=== PATIENT | female | born 2000 | race Hispanic/Latino ===

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

== ENCOUNTER 2019-04-15 20:22 | Emergency (ER) | payer SELFPAY ==
--- OUTSIDE RECORDS SUMMARY | 2019-04-15 20:24 | XMS REPORT | Continuity of Care Document ---
:2000 Author Organization [employer] Care Team Providers Name Role Phone [employer] Unavailable Unavailable Problems Problem Status Onset Classification Date Comments Source Date Reported Leukocytosis, Active Problem 09/07/2018 eCW: Sugar unspecified [place] [facility] Lower abdominal Active Diagnosis 08/30/2018 eCW: Sugar pain [facility] Encounter for Active Diagnosis 08/30/2018 eCW: Sugar screening [facility] Medications Medication Details Route Status Patient Ordering Order Source Instructions Provider Date Cipro 1 tab(s) orally Active 500 mg orally Vanderzyl eCW: Sugar every [address] [place] [address] Allergies, Adverse Reactions, Alerts Substance Category Reaction Severity Reaction Status Date Comments Source type Reported N.K.D.A. Adverse Info Not Adverse Active eCW: Reaction Available Reaction 8 [facility] Immunizations No Data Provided for This Section Results No Data Provided for This Section Pathology Reports No Data Provided for This Section Diagnostic Reports No Data Provided for This Section Consultation Notes No Data Provided for This Section Discharge Summaries No Data Provided for This Section History and Physicals No Data Provided for This Section Vital Signs Vital Sign Value Date Comments Source Height 65 07/22/2018 eCW: [facility] Weight 202 07/22/2018 eCW: [facility] Temperature Oral (F) 96.0 F 07/22/2018 eCW: [facility] Diastolic (mm Hg) 78 07/22/2018 eCW: [facility] Systolic (mm Hg) 122 07/22/2018 eCW: [facility] Encounters No Data Provided for This Section Procedures No Data Provided for This Section Assessment and Plan No Data Provided for This Section Plan of Care No Data Provided for This Section Social History No Data Provided for This Section Family History No Data Provided for This Section Advance Directives No Data Provided for This Section Functional Status No Data Provided for This Section
--- OUTSIDE RECORDS SUMMARY | 2019-04-15 20:24 | XMS REPORT ---
:2000 Author Organization [employer] Care Team Providers Name Role Phone Candy Cooley Provider Role Unavailable Allergies No Known Allergies Problems Problem Type Condition Code Onset Dates Condition Status Problem Leukocytosis, unspecified type D72.829 Active Medications Medication Code System Code Instructions Start Date End Date Status [facility] [id number] 500 mg orally Dec 20, Active 1 tab(s) every 12 hours 2018 Results No Known Results Summary Purpose [employer] Submission
--- OUTSIDE RECORDS SUMMARY | 2019-04-15 20:24 | XMS REPORT ---
[...] Abnormality Flag Q-CBC (INCLUDES DIFF/PLT) ----ABSOLUTE 8112 [id number] 5956-8055 cells/uL H NEUTROPHILS ----MPV 9.9 [id number] 7.5-12.5 fL N ----EOSINOPHILS 1.2 00897872 % N ----HEMOGLOBIN 11.6 00063953 11.7-15.5 g/dL L ----MONOCYTES 6.5 35418890 % N ----HEMATOCRIT 34.9 05337136 35.0-45.0 % L ----LYMPHOCYTES 29.5 20463642 % N ----MCV 83.5 95083488 80.0-100.0 fL N ----NEUTROPHILS 62.4 54705593 % N ----MCH 27.8 76775976 27.0-33.0 pg N ----ABSOLUTE 52 92845724 0-200 cells/uL N BASOPHILS ----MCHC 33.2 47182234 32.0-36.0 g/dL N ----BASOPHILS 0.4 04714801 % N ----ABSOLUTE 156 13199834 15-500 cells/uL N EOSINOPHILS ----RDW 11.9 33159532 11.0-15.0 % N ----WHITE BLOOD 13.0 37392329 3.8-10.8 Thousand/u H CELL COUNT L ----PLATELET COUNT 400 [id number] 140-400 Thousand/u N L ----ABSOLUTE 845 20451664 200-950 cells/uL N MONOCYTES ----RED BLOOD CELL 4.18 20180722 3.80-5.10 Million/uL N COUNT ----ABSOLUTE 3835 71017470 850-3900 cells/uL N LYMPHOCYTES Q-URINALYSIS, COMPLETE W/REFLEX TO CULTURE ----GLUCOSE NEGATIVE [id number] NEGATIVE N ----PH 7.5 35332254 5.0-8.0 N ----HYALINE CAST NONE SEEN [id number] NONE SEEN /LPF N ----KETONES NEGATIVE 94809970 NEGATIVE N ----SQUAMOUS 0-5 71605108 < OR=5 /HPF EPITHELIAL CELLS ----BILIRUBIN NEGATIVE 64040691 NEGATIVE N ----COLOR YELLOW 20180722 YELLOW N ----SPECIFIC 1.013 78428774 1.001-1.035 N GRAVITY ----APPEARANCE CLEAR 20180722 CLEAR N ----RBC NONE SEEN 50280503 < OR=2 /HPF N ----OCCULT BLOOD NEGATIVE 09044349 NEGATIVE N ----PROTEIN NEGATIVE 92213772 NEGATIVE N Adv Directive Depression Screen Q-CMP W/EGFR ----POTASSIUM 3.8 68317163 3.8-5.1 mmol/L N ----SODIUM 139 93230801 135-146 mmol/L N ----BUN/CREATININE NOT APPLICABLE 20180722 6-22 (calc) RATIO ----eGFR 143 20180722 > OR=60 mL/min/1.7 N STATELESS 2 ----eGFR NON-AFR. 123 20180722 > OR=60 mL/min/1.[address] ----CREATININE 0.71 20180722 0.50-1.00 mg/dL N ----UREA NITROGEN 11 20180722 7-20 mg/dL N (BUN) ----GLUCOSE 84 20180722 65-139 mg/dL N ----AST 15 20180722 12-32 U/L N ----GLOBULIN 3.2 [id number] 2.0-3.8 g/dL N (calc) ----ALT 19 [id number] [...]
--- OUTSIDE RECORDS SUMMARY | 2019-04-15 20:24 | XMS REPORT ---
:2000 Author Organization [employer] Care Team Providers Name Role Phone Joseph Sullivan Provider Role Unavailable Allergies No Known Allergies Problems Problem Type Condition Code Onset Dates Condition Status Problem Leukocytosis, unspecified type D72.829 Active Medications Medication Code System Code Instructions Start Date End Date Status Dosage Cipro [facility] [id number] 500 mg orally Dec 20, Active 1 tab(s) every 12 hours 2018 Results No Known Results Summary Purpose [employer] Submission
--- NOTE | 2019-04-15 21:12 | EDPHYS ---
Physician Documentation [facility] Name: Urvashi Molina Age: 19 yrs Sex: Female : 2000 Arrival Date: 04/15/2019 Time: 20:25 Bed 6 Private MD: ED Physician Igor Santamaria HPI: 04/15 21:09 This 19 yrs old Female presents to ER via Ambulatory with complaints of Sore gs Throat. 21:09 Onset: The symptoms/episode began/occurred 5 day(s) ago, and became worse and became gs persistent. Severity of symptoms: At their worst the symptoms were severe, in the emergency department the symptoms are unchanged. Modifying factors: the symptoms are aggravated by swallowing. Associated signs and symptoms: Pertinent negatives fever. The patient has experienced similar episodes in the past, a few times. 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 - Social history:: Smoking status: Patient/guardian denies using tobacco. - Ebola Screening: : Patient denies travel to an Ebola-affected area in the 21 days before illness onset. ROS: 21:09 All other systems are negative. gs Exam: 21:09 Head/Face: Normocephalic, atraumatic. Eyes: Pupils equal round and reactive to light, gs extra-ocular motions intact. Lids and lashes normal. Conjunctiva and sclera are non-icteric and not injected. Cornea within normal limits. Periorbital areas with no swelling, redness, or edema. Chest/axilla: Normal chest wall appearance and motion. Nontender with no deformity. No lesions are appreciated. Cardiovascular: Regular rate and rhythm with a normal S1 and S2. No gallops, murmurs, or rubs. Normal PMI, no JVD. No pulse deficits. Respiratory: Lungs have equal breath sounds bilaterally, clear to auscultation and percussion. No rales, rhonchi or wheezes noted. No increased work of breathing, no retractions or nasal flaring. Abdomen/GI: Soft, non-tender, with normal bowel sounds. No distension or tympany. No guarding or rebound. No evidence of tenderness throughout. Back: No spinal tenderness. No costovertebral tenderness. Full range of motion. Skin: Warm, dry with normal turgor. Normal color with no rashes, no lesions, and no evidence of cellulitis. MS/ Extremity: Pulses equal, no cyanosis. Neurovascular intact. Full, normal range of motion. Neuro: Awake and alert, GCS 15, oriented to person, place, time, and situation. Cranial nerves II-XII grossly intact. Motor strength 5/5 in all extremities. Sensory grossly intact. Cerebellar exam normal. Normal gait. 21:09 Constitutional: The patient appears alert, awake. 21:09 ENT: Posterior pharynx: Tonsils: bilaterally enlarged, with exudate, erythema, that is moderate. 21:09 Neck: Lymph nodes: lymphadenopathy is appreciated, anterior cervical nodes. Vital Signs: 20:36 BP 116 / 82; Pulse 88; Resp 16; Temp 97.8; Pulse Ox 100% on R/A; Weight 90.72 kg (R); aj1 Height 5 ft. 6 in. (167.64 cm) (R); 20:36 Body Mass Index 32.28 (90.72 kg, 167.64 cm) aj1 MDM: 21:05 Patient medically screened. 21:09 Differential diagnosis: group A strep tonsillitis, tonsillitis, upper respiratory gs infection, viral syndrome. Data reviewed: vital signs, nurses notes. 04/15 20:41 Order name: Strep; Complete Time: 21:06 04/15 21:04 Order name: Throat Culture EDMS Administered Medications: 21:14 CANCELLED (Duplicate Order): Cefdinir 300 mg PO once 21:18 Drug: predniSONE 40 mg Route: PO; tl1 21:19 Follow up: Response: No adverse reaction; No change in condition; Medication tl1 administered at discharge. 21:18 Drug: Zithromax 500 mg Route: PO; tl1 21:18 Follow up: Response: No adverse reaction; No change in condition; Medication tl1 administered at discharge. Disposition: 04/15/19 21:11 Discharged to Home. Impression: Acute tonsillitis, unspecified. - Condition is Stable. - Discharge Instructions: Tonsillitis. - Prescriptions for Prednisone 20 mg Oral Tablet - take 1 tablet by ORAL route once daily for 5 days; 5 tablet. Zithromax Z- Michael 250 mg Oral Tablet - take 1 tablet by ORAL route as directed for 5 days Day 1 - take two (2) tablets one time. Day 2, 3, 4 , 5 take one (1) tablet once daily.; 6 tablet. - Medication Reconciliation Form, Thank You Letter, Antibiotic Education, Prescription Opioid Use, Work release form form. - Follow up: Private Physician; When: 2 - 3 days; Reason: Re-evaluation by your physician. Signatures: Dispatcher [employer] EDKina Kuhn RN RN aj1 Quiana Castellanos RN RN tl1 Igor Santamaria MD MD gs Corrections: (The following items were deleted from the chart) 21:14 21:09 Cefdinir 300 mg PO once ordered. [facility] 21:20 21:11 04/15/2019 21:11 Discharged to Home. Impression: Acute tonsillitis, unspecified. tl1 Condition is Stable. Forms are Medication Reconciliation Form, Thank You Letter, Antibiotic Education, Prescription Opioid Use. Follow up: Private Physician; When: 2 - 3 days; Reason: Re-evaluation by your physician.
--- NOTE | 2019-04-15 21:12 | ER ---
Nurse's Notes [facility] Name: Urvashi Molina Age: 19 yrs Sex: Female : 2000 Arrival Date: 04/15/2019 Time: 20:25 Bed 6 Private MD: Diagnosis: Acute tonsillitis, unspecified Presentation: 04/15 20:33 Presenting complaint: Patient states: "For the past week I've had real bad throat pain. aj1 It started out dry and itching, then burning and then it got swollen and I can see them touching each other" Denies fever. Transition of care: patient was not received from another setting of care. Onset of symptoms was April 15, 2019. Risk Assessment: Do you want to hurt yourself or someone else? Patient reports no desire to harm self or others. Initial Sepsis Screen: Does the patient meet any 2 criteria? HR > 90 bpm. No. Patient's initial sepsis screen is negative. Does the patient have a suspected source of infection? No. Patient's initial sepsis screen is negative. Care prior to arrival: None. 20:33 Method Of Arrival: Ambulatory aj1 20:33 Acuity: DELVIS 4 aj1 Triage Assessment: 20:36 General: Appears in no apparent distress. comfortable, Behavior is calm, cooperative, aj1 appropriate for age. Pain: Complains of pain in left aspect of posterior pharynx and right aspect of posterior pharynx Pain currently is 8 out of 10 on a pain scale. EENT: Throat is reddened has enlarged tonsils bilaterally. Neuro: Level of Consciousness is awake, alert, obeys commands, Oriented to person, place, time, situation. Cardiovascular: Patient's skin is warm and dry. Respiratory: Airway is patent Respiratory effort is even, unlabored, Respiratory pattern is regular, symmetrical. 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 - Social history:: Smoking status: Patient/guardian denies using tobacco. - Ebola Screening: : Patient denies travel to an Ebola-affected area in the 21 days before illness onset. Screenin:51 Abuse screen: Denies threats or abuse. Abuse screen: Denies injuries from another. tl1 Nutritional screening: No deficits noted. Tuberculosis screening: No symptoms or risk factors identified. Fall Risk None identified. Assessment: 20:49 General: Appears in no apparent distress. Behavior is calm, cooperative, appropriate tl1 for age. Pain: Complains of pain in right aspect of posterior pharynx and left aspect of posterior pharynx. Neuro: Level of Consciousness is awake, alert, obeys commands, Oriented to person, place, time, situation. Cardiovascular: Denies chest pain. Respiratory: Airway is patent Trachea midline Respiratory effort is even, unlabored, Breath sounds are clear bilaterally. GI: No signs and/or symptoms were reported involving the gastrointestinal system. EENT: Throat is reddened Reports pain when swallowing. Derm: No deficits noted. 20:51 EENT: Throat has enlarged tonsils bilaterally. tl1 Vital Signs: 20:36 BP 116 / 82; Pulse 88; Resp 16; Temp 97.8; Pulse Ox 100% on R/A; Weight 90.72 kg (R); aj1 Height 5 ft. 6 in. (167.64 cm) (R); 20:36 Body Mass Index 32.28 (90.72 kg, 167.64 cm) aj1 ED Course: 20:25 Patient arrived in ED. mr 20:36 Triage completed. aj1 20:36 Arm band placed on Patient placed in an exam room. aj1 20:36 Patient has correct armband on for positive identification. Bed in low position. Call tl1 light in reach. Side rails up X 1. 20:39 Catrachita Edmond, ILNDSEY is Primary Nurse. ak1 20:41 Igor Santamaria MD is Attending Physician. gs 20:51 No provider procedures requiring assistance completed. Strep swab sent to lab. Patient tl1 did not have IV access during this emergency room visit. Administered Medications: 21:14 CANCELLED (Duplicate Order): Cefdinir 300 mg PO once gs 21:18 Drug: predniSONE 40 mg Route: PO; tl1 21:19 Follow up: Response: No adverse reaction; No change in condition; Medication tl1 administered at discharge. 21:18 Drug: Zithromax 500 mg Route: PO; tl1 21:18 Follow up: Response: No adverse reaction; No change in condition; Medication tl1 administered at discharge. Outcome: 21:11 Discharge ordered by . babita 21:19 Discharged to home ambulatory, with family. tl1 21:19 Condition: good 21:19 Discharge instructions given to patient, family, Instructed on discharge instructions, follow up and referral plans. medication usage, Demonstrated understanding of instructions, follow-up care, medications, Prescriptions given X 3. 21:20 Patient left the ED. tl1 Signatures: Kina De RN RN aj1 Li Hahn Quiana Castellanos RN RN tl1 Catrachita Edmond RN RN ak1 Igor Santamaria MD MD gs Corrections: (The following items were deleted from the chart) 20:51 20:49 Pain: Complains of pain in right aspect of posterior pharynx and left aspect of tl1 posterior pharynx tl1
[2019-04-15] MEDS ORDERED: predniSONE 20 MG TAB ONE (21:14)
[2019-04-15] MEDS ORDERED: AZITHROMYCIN 250 MG TAB ONE (21:15)
[2019-04-16 04:09] VITALS: BP 116/82; TEMP 97.8; O2SAT 100
== END 2019-04-15 21:20 | disposition home or self-care (01) ==
LOC: ER 20:22
DX: J03.90 Acute tonsillitis, unspecified (principal)
CPT/HCPCS: 87070; 87081; 99283; J7512

== ENCOUNTER 2019-05-08 15:24 | Emergency (ER) | payer SELFPAY ==
--- NOTE | 2019-05-08 17:36 | ER ---
Nurse's Notes [facility] Name: Urvashi Molina Age: 19 yrs Sex: Female : 2000 Arrival Date: 05/08/2019 Time: 15:27 Bed 14 Private MD: Diagnosis: Anxiety disorder, unspecified Presentation: 05/08 15:40 Presenting complaint: Patient states: All week I have been feeling like my heart has la1 been racing and I feel like I cant catch my breath. Transition of care: patient was not received from another setting of care. Onset of symptoms was May 08, 2019. Risk Assessment: Do you want to hurt yourself or someone else? Patient reports no desire to harm self or others. Initial Sepsis Screen: Does the patient meet any 2 criteria? No. Patient's initial sepsis screen is negative. Does the patient have a suspected source of infection? No. Patient's initial sepsis screen is negative. Care prior to arrival: None. 15:40 Method Of Arrival: Ambulatory la1 15:40 Acuity: DELVIS 3 la1 Triage Assessment: 16:20 General: Appears in no apparent distress. comfortable, Behavior is cooperative, bp appropriate for age, anxious. Pain: Denies pain. EENT: No deficits noted. Neuro: No deficits noted. Cardiovascular: Rhythm is sinus rhythm. Respiratory: No deficits noted. GI: No signs and/or symptoms were reported involving the gastrointestinal system. : No signs and/or symptoms were reported regarding the genitourinary system. Derm: No deficits noted. Musculoskeletal: No deficits noted. 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 - Social history:: Smoking status: Patient/guardian denies using tobacco, Patient/guardian denies using alcohol, street drugs, The patient lives with family. - Ebola Screening: : No symptoms or risks identified at this time. - Family history:: not pertinent. Screenin:24 Abuse screen: Denies threats or abuse. Denies injuries from another. Nutritional bp screening: No deficits noted. Tuberculosis screening: No symptoms or risk factors identified. Fall Risk None identified. Assessment: 16:20 General: SEE TRIAGE NOTE. bp 17:15 Reassessment: PT D/C HOME AMBULATORY WITH FAMILY, DX WITH GENERALIZED ANXIETY. bp Vital Signs: 15:41 BP 102 / 64; Pulse 80; Resp 16; Temp 98.7; Pulse Ox 100% on R/A; Weight 90.72 kg; la1 Height 5 ft. 6 in. (167.64 cm); 15:41 Body Mass Index 32.28 (90.72 kg, 167.64 cm) la1 ED Course: 15:27 Patient arrived in ED. am2 15:41 Triage completed. la1 15:42 Arm band placed on right wrist. la1 16:23 Jez Ac, RN is Primary Nurse. bp 16:24 Patient has correct armband on for positive identification. Bed in low position. Call bp light in reach. Side rails up X2. Pulse ox on. NIBP on. 16:27 Silvia Ramos MD is Attending Physician. ma2 16:45 EKG done, by instructional media services technician. reviewed by Silvia Ramos MD. sm3 17:41 No provider procedures requiring assistance completed. Patient did not have IV access bp during this emergency room visit. Patient maintains SpO2 saturation greater than 95% on room air. Administered Medications: No medications were administered Outcome: 16:57 Discharge ordered by . wa2 17:41 Discharged to home ambulatory, with family. bp 17:41 Condition: stable 17:41 Discharge instructions given to patient, Instructed on discharge instructions, follow up and referral plans. medication usage, Demonstrated understanding of instructions, follow-up care, medications, Prescriptions given X 1. 17:42 Patient left the ED. bp Signatures: Camacho Mcpherson, RN RN la1 Kiersten Marie am2 Jez Ac, RN RN bp Silvia Ramos MD MD wa2 Prachi Valencia 3
--- NOTE | 2019-05-08 17:36 | EDPHYS ---
Physician Documentation [facility] Name: Urvashi Molina Age: 19 yrs Sex: Female : 2000 Arrival Date: 05/08/2019 Time: 15:27 Bed 14 Private MD: ED Physician Silvia Ramos HPI: 05/08 16:56 This 19 yrs old Female presents to ER via Ambulatory with complaints of ma2 Anxiety, Chest Tightness. 16:56 The patient or guardian reports chest pain that is located primarily in the anterior ma2 chest wall. Associated signs and symptoms: Pertinent negatives: abdominal pain, headache, lower extremity swelling, nausea. Duration: The patient or guardian reports multiple episodes. Severity of pain: At its worst the pain was very mild in the emergency department the pain has resolved. The patient has experienced similar episodes in the past. 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 - Social history:: Smoking status: Patient/guardian denies using tobacco, Patient/guardian denies using alcohol, street drugs, The patient lives with family. - Ebola Screening: : No symptoms or risks identified at this time. - Family history:: not pertinent. ROS: 16:56 Constitutional: Negative for fever, chills, and weight loss, Cardiovascular: Negative ma2 for chest pain, palpitations, and edema, Respiratory: Negative for shortness of breath, cough, wheezing, and pleuritic chest pain. 16:56 All other systems are negative. Exam: 16:56 Constitutional: This is a well developed, well nourished patient who is awake, alert, ma2 and in no acute distress. Head/Face: Normocephalic, atraumatic. Eyes: Pupils equal round and reactive to light, extra-ocular motions intact. Lids and lashes normal. Conjunctiva and sclera are non-icteric and not injected. Cornea within normal limits. Periorbital areas with no swelling, redness, or edema. ENT: Nares patent. No nasal discharge, no septal abnormalities noted. Tympanic membranes are normal and external auditory canals are clear. Oropharynx with no redness, swelling, or masses, exudates, or evidence of obstruction, uvula midline. Mucous membranes moist. Neck: Trachea midline, no thyromegaly or masses palpated, and no cervical lymphadenopathy. Supple, full range of motion without nuchal rigidity, or vertebral point tenderness. No Meningismus. Chest/axilla: Normal chest wall appearance and motion. Nontender with no deformity. No lesions are appreciated. Cardiovascular: Regular rate and rhythm with a normal S1 and S2. No gallops, murmurs, or rubs. Normal PMI, no JVD. No pulse deficits. Respiratory: Lungs have equal breath sounds bilaterally, clear to auscultation and percussion. No rales, rhonchi or wheezes noted. No increased work of breathing, no retractions or nasal flaring. Abdomen/GI: Soft, non-tender, with normal bowel sounds. No distension or tympany. No guarding or rebound. No evidence of tenderness throughout. MS/ Extremity: Pulses equal, no cyanosis. Neurovascular intact. Full, normal range of motion. Neuro: Awake and alert, GCS 15, oriented to person, place, time, and situation. Cranial nerves II-XII grossly intact. Motor strength 5/5 in all extremities. Sensory grossly intact. Cerebellar exam normal. Normal gait. Vital Signs: 15:41 BP 102 / 64; Pulse 80; Resp 16; Temp 98.7; Pulse Ox 100% on R/A; Weight 90.72 kg; la1 Height 5 ft. 6 in. (167.64 cm); 15:41 Body Mass Index 32.28 (90.72 kg, 167.64 cm) la1 MDM: 16:27 Patient medically screened. ma2 16:56 Differential diagnosis: anxiety, chest wall pain, gastroesophageal reflux disease ma2 (GERD). Data reviewed: vital signs, nurses notes. Counseling: I had a detailed discussion with the patient and/or guardian regarding: the historical points, exam findings, and any diagnostic results supporting the discharge/admit diagnosis, the presence of at least one elevated blood pressure reading (>120/80) during this emergency department visit, the need for outpatient follow up. 05/08 16:34 Order name: EKG; Complete Time: 17:31 bp 05/08 16:28 Order name: EKG - Nurse/Tech; Complete Time: 16:34 ma2 Administered Medications: No medications were administered Disposition: 05/08/19 16:57 Discharged to Home. Impression: Anxiety disorder, unspecified. - Condition is Stable. - Discharge Instructions: Generalized Anxiety Disorder. - Prescriptions for Ativan 0.5 mg Oral Tablet - take 1 tablet by ORAL route every 8 hours As needed; 20 tablet. - Work release form, Medication Reconciliation Form, Thank You Letter, Antibiotic Education, Prescription Opioid Use form. - Follow up: Private Physician; When: Tomorrow; Reason: Continuance of care. Signatures: Camacho Mcpherson RN RN la1 Jez Ac RN RN bp Silvia Ramos MD MD ma2 Corrections: (The following items were deleted from the chart) 17:42 16:57 05/08/2019 16:57 Discharged to Home. Impression: Anxiety disorder, unspecified. bp Condition is Stable. Forms are Medication Reconciliation Form, Thank You Letter, Antibiotic Education, Prescription Opioid Use. Follow up: Private Physician; When: Tomorrow; Reason: Continuance of care. ma2
[2019-05-08 20:06] VITALS: BP 102/64; TEMP 98.7; O2SAT 100
--- NOTE | 2019-05-09 07:26 | EKG ---
Test Date: 2019-05-08 Test Time: 16:35:20 Appeals Reviewer Veteran: JANE MEASUREMENT RESULTS: Intervals: Rate: 69 CT: 162 QRSD: 96 QT: 406 QTc: 435 [place]: P: 49 CT: 162 QRS: 50 T: 33 INTERPRETIVE STATEMENTS: Sinus rhythm with marked sinus arrhythmia normal ECG Compared to ECG 12/14/2018 16:27:55 Sinus tachycardia no longer present T-wave abnormality no longer present Electronically Signed On 05-09-19 07:25:27 CDT by Sawyer Franklin
== END 2019-05-08 17:42 | disposition home or self-care (01) ==
LOC: ER 15:24
DX: F41.9 Anxiety disorder, unspecified (principal)
CPT/HCPCS: 93005; 99284

== ENCOUNTER 2019-06-14 10:38 | Emergency (ER) | payer OTHER, SELFPAY ==
[2019-06-14 11:28] LABS: Absolute Lymphocytes (CBC) 3.5 K/uL (0.7-4.9); Basophils % 0.6 % (0-1.3); Hematocrit 33.5 % (36.0-45.0); MPV 7.8 fL (7.6-11.3); RBC Red Blood Cell Count 3.94 M/uL (3.86-4.86)
[2019-06-14 12:11] LABS: BUN Blood Urea Nitrogen 8 mg/dL (7-18); Bicarbonate 24 mmol/L (21-32); Glucose Level 81 mg/dL (74-106); HCG, Quantitative 18134 mIU/mL (1-3); Potassium 3.4 mmol/L (3.5-5.1); Sodium Level 136 mmol/L (136-145)
--- NOTE | 2019-06-14 14:07 | EDPHYS ---
Physician Documentation [facility] Name: Urvashi Molina Age: 19 yrs Sex: Female : 2000 Arrival Date: 06/14/2019 Time: 10:46 Bed 18 Private MD: ED Physician Andre Shankar HPI: 06/14 11:07 This 19 yrs old Female presents to ER via Ambulatory with complaints of kb Abdominal Pain, . 11:07 The patient presents to the emergency department with abdominal pain, of the right kb lower quadrant and left lower quadrant. course: care: at a clinic, Leakage of Fluid: none appreciated, Ultrasound: the patient has not had an ultrasound, Risk/complications: no obvious risks or complications are appreciated. Previous pregnancies: the patient has never been . Associated signs and symptoms: Pertinent positives: abdominal pain. The patient has not experienced similar symptoms in the past. The patient has not recently seen a physician. Pt reports she is and having some cramping to lower abd. States "I don't know if it is normal or not. I normally have 50 days between my periods so my OB is not sure how far along I am until I have my ultrasound in July." Pt gets care at [facility] clinic, unsure of Dr's name. 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 - Social history:: Smoking status: Patient/guardian denies using tobacco. - Ebola Screening: : No symptoms or risks identified at this time. ROS: 11:13 Constitutional: Negative for fever, chills, and weight loss, ENT: Negative for injury, kb pain, and discharge, Neck: Negative for injury, pain, and swelling, Cardiovascular: Negative for chest pain, palpitations, and edema, Respiratory: Negative for shortness of breath, cough, wheezing, and pleuritic chest pain, Back: Negative for injury and pain, : Negative for injury, bleeding, discharge, and swelling, MS/Extremity: Negative for injury and deformity, Skin: Negative for injury, rash, and discoloration, Neuro: Negative for headache, weakness, numbness, tingling, and seizure. 11:13 Abdomen/GI: Positive for abdominal pain, Negative for nausea, vomiting, and diarrhea. Exam: 11:13 Constitutional: This is a well developed, well nourished patient who is awake, alert, kb and in no acute distress. Head/Face: Normocephalic, atraumatic. ENT: Nares patent. No nasal discharge, no septal abnormalities noted. Tympanic membranes are normal and external auditory canals are clear. Oropharynx with no redness, swelling, or masses, exudates, or evidence of obstruction, uvula midline. Mucous membranes moist. Neck: Trachea midline, no thyromegaly or masses palpated, and no cervical lymphadenopathy. Supple, full range of motion without nuchal rigidity, or vertebral point tenderness. No Meningismus. Chest/axilla: Normal chest wall appearance and motion. Nontender with no deformity. No lesions are appreciated. Cardiovascular: Regular rate and rhythm with a normal S1 and S2. No gallops, murmurs, or rubs. Normal PMI, no JVD. No pulse deficits. Respiratory: Lungs have equal breath sounds bilaterally, clear to auscultation and percussion. No rales, rhonchi or wheezes noted. No increased work of breathing, no retractions or nasal flaring. Abdomen/GI: Soft, non-tender, with normal bowel sounds. No distension or tympany. No guarding or rebound. No evidence of tenderness throughout. Back: No spinal tenderness. No costovertebral tenderness. Full range of motion. Skin: Warm, dry with normal turgor. Normal color with no rashes, no lesions, and no evidence of cellulitis. MS/ Extremity: Pulses equal, no cyanosis. Neurovascular intact. Full, normal range of motion. Neuro: Awake and alert, GCS 15, oriented to person, place, time, and situation. Cranial nerves II-XII grossly intact. Motor strength 5/5 in all extremities. Sensory grossly intact. Cerebellar exam normal. Normal gait. Vital Signs: 10:48 BP 122 / 69; Pulse 90; Resp 16 S; Temp 97.1(TE); Pulse Ox 100% on R/A; Weight 91.63 kg aa5 (R); Height 5 ft. 7 in. (170.18 cm) (R); Pain 7/10; 13:32 BP 109 / 66; Pulse 97; Resp 18; Pulse Ox 100% on R/A; aj1 14:46 BP 129 / 89; Pulse 82; Resp 18; Pulse Ox 99% on R/A; aj1 10:48 Body Mass Index 31.64 (91.63 kg, 170.18 cm) aa5 MDM: 10:57 Patient medically screened. kb 11:06 Data reviewed: vital signs, nurses notes. Data interpreted: Pulse oximetry: on room air kb is 100 %. Interpretation: normal. 14:06 Counseling: I had a detailed discussion with the patient and/or guardian regarding: the kb historical points, exam findings, and any diagnostic results supporting the discharge/admit diagnosis, lab results, radiology results, the need for outpatient follow up, an OB/Gyne specialist, to return to the emergency department if symptoms worsen or persist or if there are any questions or concerns that arise at home. 06/14 11:04 Order name: Quantitative Hcg; Complete Time: 12:17 kb 06/14 11:04 Order name: Abo/rh Typing; Complete Time: 12:31 kb 06/14 11:04 Order name: Basic Metabolic Panel; Complete Time: 12:17 kb 06/14 11:04 Order name: CBC with Diff; Complete Time: 11:53 kb 06/14 11:15 Order name: Urine Dipstick--Ancillary (enter results) bd 06/14 11:15 Order name: Urine --Ancillary (enter results) bd 06/14 10:54 Order name: Urine Dipstick-Ancillary (obtain specimen); Complete Time: 11:04 kb 06/14 10:54 Order name: Urine Test (obtain specimen); Complete Time: 11:05 kb 06/14 11:04 Order name: IV Saline Lock; Complete Time: 11:20 kb 06/14 11:04 Order name: Labs collected and sent; Complete Time: 11:20 kb 06/14 11:04 Order name: NPO; Complete Time: 11:20 kb 06/14 11:05 Order name: US Transvaginal Ob kb Administered Medications: No medications were administered Disposition: 14:58 Co-signature as Attending Physician, Andre Shankar MD I agree with the assessment and kdr plan of care. Disposition: 06/14/19 14:06 Discharged to Home. Impression: Less than 8 weeks gestation of . - Condition is Stable. - Discharge Instructions: First Trimester of , Kbpo-[id number]. - Medication Reconciliation Form, Thank You Letter, Antibiotic Education, Prescription Opioid Use form. - Follow up: Emergency Department; When: As needed; Reason: Worsening of condition. Follow up: Private Physician; When: 2 - 3 days; Reason: Recheck today's complaints, Continuance of care, Re-evaluation by your physician. Signatures: Dispatcher [employer] EDMS Ines Jaimes, BUSINESS ANALYTICS FACULTY MEMBER-C BUSINESS ANALYTICS FACULTY MEMBER-Nishantb Kina De RN RN aj1 Andre Shankar MD MD [facility] Jaqueline Joseph RN RN aa5 Corrections: (The following items were deleted from the chart) 14:47 14:06 06/14/2019 14:06 Discharged to Home. Impression: Less than 8 weeks gestation of aj1 . Condition is Stable. Forms are Medication Reconciliation Form, Thank You Letter, Antibiotic Education, Prescription Opioid Use. Follow up: Emergency Department; When: As needed; Reason: Worsening of condition. Follow up: Private Physician; When: 2 - 3 days; Reason: Recheck today's complaints, Continuance of care, Re-evaluation by your physician. kb
--- NOTE | 2019-06-14 14:07 | ER ---
Nurse's Notes [facility] Name: Urvashi Molina Age: 19 yrs Sex: Female : 2000 Arrival Date: 06/14/2019 Time: 10:46 Bed 18 Private MD: Diagnosis: Less than 8 weeks gestation of Presentation: 06/14 10:47 Presenting complaint: Patient states: lower abd cramping that began 1 week ago and got aa5 worse over the last few days. pt denies vaginal bleeding. Pt reports positive test on 06/01/19. Transition of care: patient was not received from another setting of care. Onset of symptoms was 2018. Risk Assessment: Do you want to hurt yourself or someone else? Patient reports no desire to harm self or others. Initial Sepsis Screen: Does the patient meet any 2 criteria? No. Patient's initial sepsis screen is negative. Does the patient have a suspected source of infection? No. Patient's initial sepsis screen is negative. Care prior to arrival: None. 10:47 Acuity: DELVIS 3 aa5 10:47 Method Of Arrival: Ambulatory aa5 LOT ASSOCIATE: 10:48 LMP 04/19/2019 aa5 11:07 1, 0, Living 0, LMP 04/19/2019 kb Historical: - Allergies: 10:48 NKA; aa5 - Home Meds: 10:48 None [Active]; aa5 - PMHx: 10:48 Anxiety; aa5 - PSHx: 10:48 None; aa5 - Immunization history:: Adult Immunizations up to date. - Social history:: Smoking status: Patient/guardian denies using tobacco. - Ebola Screening: : No symptoms or risks identified at this time. Screenin:05 Abuse screen: Denies threats or abuse. Denies injuries from another. Nutritional aj1 screening: No deficits noted. Tuberculosis screening: No symptoms or risk factors identified. 14:47 Fall Risk None identified. aj1 Assessment: 11:05 General: Appears in no apparent distress. comfortable, Behavior is calm, cooperative, aj1 appropriate for age. Pain: Complains of pain in right lower quadrant and left lower quadrant Quality of pain is described as crampy. Neuro: Level of Consciousness is awake, alert, obeys commands, Oriented to person, place, time, situation. Cardiovascular: Patient's skin is warm and dry. Respiratory: Airway is patent Respiratory effort is even, unlabored, Respiratory pattern is regular, symmetrical. GI: Abdomen is non-distended, Bowel sounds present X 4 quads. Abd is soft and non tender X 4 quads. Reports cramping. : Denies vaginal bleeding. EENT: No signs and/or symptoms were reported regarding the EENT system. Derm: No signs and/or symptoms reported regarding the dermatologic system. Skin is pink, warm \T\ dry. normal. Musculoskeletal: No signs and/or symptoms reported regarding the musculoskeletal system. Circulation, motion, and sensation intact. 12:05 Reassessment: Patient appears in no apparent distress at this time. No changes from 1 previously documented assessment. Patient and/or family updated on plan of care and expected duration. Pain level reassessed. Patient is alert, oriented x 3, equal unlabored respirations, skin warm/dry/pink. 13:18 Reassessment: Patient appears in no apparent distress at this time. No changes from aj1 previously documented assessment. Patient and/or family updated on plan of care and expected duration. Pain level reassessed. Patient is alert, oriented x 3, equal unlabored respirations, skin warm/dry/pink. 14:15 Reassessment: Patient appears in no apparent distress at this time. No changes from aj1 previously documented assessment. Patient and/or family updated on plan of care and expected duration. Pain level reassessed. Patient is alert, oriented x 3, equal unlabored respirations, skin warm/dry/pink. Vital Signs: 10:48 BP 122 / 69; Pulse 90; Resp 16 S; Temp 97.1(TE); Pulse Ox 100% on R/A; Weight 91.63 kg aa5 (R); Height 5 ft. 7 in. (170.18 cm) (R); Pain 7/10; 13:32 BP 109 / 66; Pulse 97; Resp 18; Pulse Ox 100% on R/A; aj1 14:46 BP 129 / 89; Pulse 82; Resp 18; Pulse Ox 99% on R/A; aj1 10:48 Body Mass Index 31.64 (91.63 kg, 170.18 cm) aa5 ED Course: 10:46 Patient arrived in ED. aa5 10:46 Arm band placed on. aa5 10:47 Triage completed. aa5 10:52 Ines Jaimes FNP-C is [facility]. kb 10:52 Andre Shankar MD is Attending Physician. kb 10:57 Kina De, RN is Primary Nurse. aj1 11:05 Patient has correct armband on for positive identification. Bed in low position. Call aj1 light in reach. Side rails up X 1. 11:05 No provider procedures requiring assistance completed. aj1 11:21 Initial lab(s) drawn, by me, sent to lab. Inserted saline lock: 20 gauge in right aj1 antecubital area, using aseptic technique. Blood collected. 11:30 US Transvaginal Ob In Process Unspecified. EDMS 14:47 IV discontinued, intact, bleeding controlled, No redness/swelling at site. Pressure aj1 dressing applied. Administered Medications: No medications were administered Outcome: 14:06 Discharge ordered by MD. kb 14:47 Discharged to home ambulatory. aj1 14:47 Condition: good 14:47 Discharge instructions given to patient, Instructed on discharge instructions, follow up and referral plans. Demonstrated understanding of instructions, follow-up care. 14:47 Patient left the ED. aj1 Signatures: Dispatcher [employer] EDMS Ines Jaimes FNP-C FNP-Kina Russell, RN RN aj1 Jaqueline Joseph, RN RN aa5
[2019-06-14 14:55] VITALS: TEMP 97.1
[2019-06-14 14:58] VITALS: BP 129/89; O2SAT 99
[2019-06-14 18:01] LABS: Urine Blood NEGATIVE (NEG); Urine Glucose NEGATIVE (NEG); Urine Protein NEGATIVE (NEG); Urine Specific Gravity 1.025 (1.005-1.030); Urine pH 5.5 (5.0-7.0)
--- NOTE | 2019-06-19 15:21 | RAD REPORT ---
EXAM DESCRIPTION: US - Transvaginal OB - 06/14/2019 12:18 pm CLINICAL HISTORY: ABD CRAMPING, COMPARISON: None available TECHNIQUE: Endovaginal sonography performed. FINDINGS: A 5 week 2 day sized gestational sac is present. Shape is normal. Gestational sac and yolk sac were seen. No pole confirmed. Therefore no heartbeat could be demonstrated. Within the [place] no hematoma or mass. No myometrial abnormality. A 4.8 centimeter right ovarian cyst is identified . No blood or fluid in the cul de sac. No left ovarian abnormality. Normal blood flow in the ovarian st danitza. IMPRESSION: Single 5 week 2 day sized gestational sac without pole identifiable. Findings may simply reflect a very early gestation. Follow-up sonography can be performed if serial b eta HCG values indicate ongoing . A 4.8 centimeter right ovarian cyst is identified. Due to technical difficulties, the images and reporting system are only now available. Preliminary fi ndings were provided at the time of the study.
== END 2019-06-14 14:47 | disposition home or self-care (01) ==
LOC: ER 10:38
DX: O26.891 Other specified pregnancy related conditions, first trimester (principal); Z3A.01 Less than 8 weeks gestation of pregnancy
CPT/HCPCS: 36415; 76817; 80048; 81003; 81025; 84702; 85025; 86900; 86901; 99283

== ENCOUNTER 2020-02-12 21:52 | Emergency (ER) | payer OTHER ==
--- OUTSIDE RECORDS SUMMARY | 2020-02-12 21:54 | XMS REPORT | Continuity of Care Document ---
:2000 Author Organization [facility] t Address [address] [place] [address] Care Team Providers Name Role Phone Yancy Hoff MD Attending Clinician [place] WHCNP, C Attending Clinician Doctor Unassigned, Name Attending Clinician Unavailable Provider, Temp Attending Clinician Unavailable Ezra PORTILLO, D Attending Clinician Unavailable Willian PORTILLO, S Attending Clinician Unavailable Dominick PORTILLO Attending Clinician Unavailable Pedro Medina DO Attending Clinician Carlos Vang MD Attending Clinician Yancy Hoff MD Admitting Clinician Carlos Vang MD Admitting Clinician Problems Condition Condition Condition Status Onset Resolution Last Treating Co mments Source Name Details Category Date Date Treatment Clinician Date Leukocytos Problem Active 2018-09-07 M emoria is, 05:10:56 l unspecifie Chente n d type Leukocytos is, unspecifie d type Active Problem 09/07/2018 eCW: [facility] Lower Diagnosis Active 2018-08-30 Mem oria abdominal 05:15:14 l pain Lower Arnel abdominal pain Active Diagnosis 08/30/2018 eCW: [facility] Encounter Diagnosis Active 2018-08-30 Memoria for 05:15:14 l screening Arnel Encounter for screening Active Diagnosis 08/30/2018 eCW: [facility] Allergies, Adverse Reactions, Alerts Allergy Allergy Status Severity Reaction(s) Onset Inactive Treating Comm ents Source Name Type Date Date Clinician Kylah Montero Active Info Not 2017-08 Justyn reji Available 2-14 l 00:00: [place] 00 Medications Ordered Filled Start Stop Current Ordering Indication Dosage Frequency Signature Comments Components Source Medication Medication Date Date Medication? Clinician (SIG) Name Name Cipro 2017-08 Yes Janette 1 tab(s) Memoria 2-20 [place] l 00:00: [place] 00 Vital Signs Vital Name Observation Time Observation Value Comments Source Height 2018-07-22 19:45:00 [facility] [place] Weight 2018-07-22 19:45:00 [facility] [place] Temperature Oral (F) 2018-07-22 19:45:00 96.0 F [facility] [place] Diastolic (mm Hg) 2018-07-22 19:45:00 Mem orial [place] Systolic (mm Hg) 2018-07-22 19:45:00 Justyn rial [place] Procedures This patient has no known procedures. Encounters Start End Encounter Admission Attending Care Care Encounter Source Date/Time Date/Time Type Type Clinicians Facility Department ID 2020-01-19 2020-01-22 [facility] JANETTE Hoff [id number] 19:18:00 17:30:00 Encounter Rebecca GILL [id number] [place] [id number] 2020-01-19 2020-01-19 Routine [place] [id number] 15:53:23 16:37:17 Lizzie C APPIAN DEVELOPER [id number] Visit [facility] [id number] MATERNAL [id number] & CHILD [address] [place] [address] 2020-01-19 2020-01-19 Orders Doctor JANETTE [id number] 00:00:00 00:00:00 Only Unassigned, [place] [id number] [place] [id number] 2020-01-11 2020-01-11 Routine Provider, [facility] [id number] 14:50:53 15:22:24 Ang-Rmchp APPIAN DEVELOPER [id number] Visit Temp [facility] [id number] MATERNAL [id number] & CHILD [address] [facility] 2020-01-05 2020-01-05 Routine Akins[place], [facility] [id number] 14:12:11 14:27:11 Lizzie C APPIAN DEVELOPER [id number] Visit REGIONAL [id number] MATERNAL [id number] & CHILD 107 [facility] 2020-01-01 2020-01-01 Nurse JANETTE Munguia [id number] 00:00:00 00:00:00 Triage Karyn Watson [place] [id number] [facility] [id number] [id number] 2020-01-01 2020-01-01 JANETTE Stevens 1.2.840.114 [id number] 00:00:00 00:00:00 Triage Kaylene Padilla [place] [id number] [facility] [id number] [id number] 2019-12-29 2019-12-29 [facility] 1.2.840.114 [id number] 00:00:00 00:00:00 Lizzie C APPIAN DEVELOPER [id number] [facility] [id number] MATERNAL [id number] & CHILD 107 [facility] 2019-12-28 2019-12-28 Nurse JANETTE Tan [id number] 00:00:00 00:00:00 Triage Toshia [place] [id number] [facility] [id number] [id number] 2019-12-20 2019-12-20 [facility] 1.2.840.114 [id number] 11:43:03 14:19:06 ne Visit Lizzie C APPIAN DEVELOPER [id number] [facility] [id number] MATERNAL [id number] & CHILD 107 [facility] 2019-12-14 2019-12-14 Emergency AdamAmy Pedro [facility] 1.2.8 [id number] 18:31:58 23:45:00 Swati Vang [place] 350.1.13.10 [place] 4.2.7.2.686 [place] [id number] 2019-12-04 2019-12-04 [facility]ici [facility] 1.2.840.114 [id number] 12:49:08 14:24:22 ne Visit Lizzie C APPIAN DEVELOPER [id number] [facility] [id number] MATERNAL [id number] & CHILD 107 [facility] 2019-11-24 2019-11-24 [facility] 1.2.840.114 [id number] 00:00:00 00:00:00 Lizzie C APPIAN DEVELOPER [id number] [facility] [id number] MATERNAL [id number] & CHILD 107 [facility] 2019-11-21 2019-11-21 Routine [facility] [id number] 13:34:25 14:28:43 Lizzie C APPIAN DEVELOPER [id number] Visit [facility] [id number] MATERNAL [id number] & CHILD 107 [facility] 2019-11-21 2019-11-21 Orders Doctor JANETTE [id number] [id number] 00:00:00 00:00:00 Only Unassigned, [place] [id number] [place] [facility] 4.2.7.2.686 [id number] 2019-11-08 2019-11-08 Telephone [facility] 1.2.840.114 [id number] 00:00:00 00:00:00 Lizzie C APPIAN DEVELOPER [id number] [facility] [id number] MATERNAL [id number] & CHILD 107 [facility] 2018-09-05 2018-09-05 Outpatient [facility] [place] [id number] [facility] 17:00[facility]00 [facility]-09[facility]01 2018-09-01 [facility] [place] [id number] [facility]inic 15:26:00 [facility]:26:[facility] 2018-07-28 2018-07-28 [facility] [place] [id number] [facility]Clinic 11:34:00 [facility] 2018-07-26 2018-07-26 Outpatient [facility] [place] [id number] eClinic 08:33:00 08:33:00 [facility] 2018-07-25 2018-07-25 [facility]patient [facility] [place] [id number] eClinic 12:56:00 12:56:00 [facility] 2018-07-22 2018-07-22 Outpatient [facility] [place] [id number] eClinic 13:45:00 13:45:00 [facility] Practice Practice Results This patient has no known results.
--- OUTSIDE RECORDS SUMMARY | 2020-02-12 21:54 | XMS REPORT | Summary of Care ---
:1999 Author Organization [facility] Address [address] [place] [id number] Care Team Providers Name Role Phone Lizzie Richards TAZ Primary Care Provider Reason for Visit Reason Comments Care Encounter Details Date Type Department Care Team Description 11/21/2019 Routine [facility]- Susie, Super vision of high risk , antepartum (Primary Dx); Visit THUAN Saldaña Susceptible to varicella (non-immune), c urrently ; [address] Obesity affecting in second trimester; [facility] Anemia of mother in , antepartu [id number] [facility] [phone] [place] [address] Allergies No Known Allergiesdocumented as of this encounter (statuses as of 11/21/2019) Medications Medication Sig Dispensed Refills Start Date End Date Status vit/iron Take by mouth. 0 Active fum/folic ac ( 1 + 1 ORAL) multivitamin Take 1 tablet by 90 tablet 3 06/05/2019 Active ( VITAMIN) mouth daily. tabletIndications: Supervision of high risk , antepartum proMETHazine 25 mg Take 1 tablet by 30 tablet 0 06/12/2019 Active tabletIndications: mouth every 6 Nausea/vomiting in (six) hours as needed for Nausea and Vomiting (N/V). ferrous sulfate 325 mg Take 1 tablet by 60 tablet 3 11/08/2019 Active (65 mg iron) mouth 2 (two) tabletIndications: times daily. Anemia of mother in , antepartum ascorbic acid, vitamin Take 1 tablet by 90 tablet 2 11/08/2019 Active C, 500 mg mouth 3 (three) tabletIndications: times daily. Anemia of mother in , antepartum documented as of this encounter (statuses as of 11/21/2019) Active Problems Problem Noted Date Anemia of mother in , antepartum 11/08/2019 Leukorrhea 10/09/2019 Obesity (BMI 30-39.9) 09/09/2019 Diarrhea during 08/14/2019 Susceptible to varicella (non-immune), currently pregn ant 06/06/2019 Overview: Address pp Supervision of high-risk 06/05/2019 Obesity affecting 06/05/2019 Tachycardia, unspecified 06/05/2019 Overview: Per patient report Estimated Date of Delivery Comments Yes 02/09/2020 Based on Ultrasound, outside usg at [facility] documented as of this encounter (statuses as of 11/21/2019) Immunizations Name Administration Dates Next Due Tdap 11/21/2019, 03/13/2013 documented as of this encounter Social History Tobacco Use Types Packs/Day Years Used Date Never Smoker Smokeless Tobacco: Never Used Alcohol Use Drinks/Week oz/Week Comments No 0 Standard drinks or equivalent 0.0 Estimated Date of Delivery Comments Yes 02/09/2020 Based on Ultrasound, outside usg at [facility] Sex Assigned at Date Recorded Not on file Job Start Date Occupation Industry Not on file Not on file Not on file Travel History Travel Start Travel End No recent travel history available. documented as of this encounter Last Filed Vital Signs Vital Sign Reading Time Taken Comments Blood Pressure 115/72 11/21/2019 1:50 PM CDT Pulse 93 11/21/2019 1:50 PM CDT Temperature 36.3 C (97.3 F) 11/21/2019 1:50 PM CDT Respiratory Rate 16 11/21/2019 1:50 PM CDT Oxygen Saturation - - Inhaled Oxygen Concentration - - Weight 97.3 kg (214 lb 8 oz) 11/21/2019 1:50 PM CDT Height 167.6 cm (5' 6") 11/21/2019 1:50 PM CDT Body Mass Index 34.62 11/21/2019 1:50 PM CDT documented in this encounter Progress Notes Lizzie Richards, WHCNP - 11/21/2019 2:00 PM CDT Chief complaint: Chief Complaint Patient presents with Care HPI CC: Follow Up Visit Urvashi Molina is a 19 year old, , Black or female. Patient's last menstrual periodwas 04/19/2019 (approximate). She is 28w4d with an intrauterine . Her estimated date of delivery is 02/09/2020, by Ultrasound. She has no complaints today. She reports +FM and denies contractions, LOF and bleeding today. Histories OB History Para Term AB Living 1 SAB TAB Ectopic Multiple Live Births # Outcome Date GA Lbr Curry/2nd Weight Sex Delivery Anes PTL Lv 1 Current Past Medical History: Diagnosis Date Anemia of mother in , antepartum 11/08/2019 Tachycardia 10/2018 Pt hospitalized for 1 [facility] at [facility] Vision problems wears glasses Family History Problem Relation Age of Onset Heart Father Depression Sister Asthma Brother No Significant Medical Problems Mother Lymphoma Maternal Grandmother Arthritis NoFHx defects NoFHx Breast Cancer NoFHx Colon Cancer NoFHx Ovarian Cancer NoFHx Cancer NoFHx Uterine Cancer NoFHx Diabetes NoFHx Genetic NoFHx High cholesterol NoFHx Hypertension NoFHx Mental retardation NoFHx Neurological NoFHx Osteoporosis NoFHx Other - see comments NoFHx Psychiatry NoFHx Family Status Relation Name Status Fa Alive Sis (Not Specified) Bro Alive Mo Alive MGMo Alive NoFHx (Not Specified) No past surgical history on file. Social History Socioeconomic History Marital status: Single Spouse name: Not on file Number of children: 0 Years of education: Not on file Highest education level: Not on file Occupational History Occupation: student Social Needs Financial resource strain: Not on file Food insecurity: Worry: Not on file Inability: Not on file Transportation needs: Medical: Not on file Non-medical: Not on file Tobacco Use Smoking status: Never Smoker Smokeless tobacco: Never Used Substance and Sexual Activity Alcohol use: No Alcohol/week: 0.0 standard drinks Drug use: No Sexual activity: Yes Partners: Male control/protection: None Comment: Last intercourse: 06/04/2019 Lifestyle Physical activity: Days per week: Not on file Minutes per session: Not on file Stress: Not on file Relationships Social connections: Talks on phone: Not on file Gets together: Not on file Attends hindu service: Not on file Active member of club or organization: Not on file Attends meetings of clubs or organizations: Not on file Relationship status: Not on file Intimate partner violence: Fear of current or ex partner: Not on file Emotionally abused: Not on file Physically abused: Not on file Forced sexual activity: Not on file Other Topics Concern Service Not Asked Blood Transfusions No Caffeine Concern Not Asked Occupational Exposure Not Asked Hobby Hazards Not Asked Sleep Concern Not Asked Stress Concern Not Asked Weight Concern Not Asked Special Diet Not Asked Back Care Not Asked Exercise Not Asked Bike Helmet Not Asked Seat Belt Not Asked Self-Exams Not Asked Social History Narrative No domestic violence or abuse. Patient lives alone, patient feels safe at home. Patient denies any cats.. Social History Substance and Sexual Activity Sexual Activity Yes Partners: Male control/protection: None Comment: Last intercourse: 06/04/2019 Labs No new labs and Routine Visit on 11/07/2019 Component Date Value POCT U SP GRAV 11/07/2019 . POCT PH U 11/07/2019 . POCT U LEUK EST 11/07/2019 . POCT U NIT 11/07/2019 . POCT U PROT 11/07/2019 Trace POCT U GLU 11/07/2019 Neg POCT U KETONE 11/07/2019 . POCT U UROBILI 11/07/2019 . POCT U BILI 11/07/2019 . POCT U BLD 11/07/2019 . GLUC 1 HR 11/07/2019 95* WBC 11/07/2019 13.39* RBC 11/07/2019 3.59* HGB 11/07/2019 10.2* HCT 11/07/2019 33.0* MCV 11/07/2019 91.9 MCH 11/07/2019 28.4 MCHC 11/07/2019 30.9* RDW-SD 11/07/2019 40.8 RDW-CV 11/07/2019 12.0 PLT 11/07/2019 382* MPV 11/07/2019 11.4 NRBC/100 WBC 11/07/2019 0.0 NRBC x10^3 11/07/2019 <0.01 GRAN MAT (NEUT) % 11/07/2019 76.7 IMM GRAN % 11/07/2019 0.50 LYMPH % 11/07/2019 14.6 MONO % 11/07/2019 7.2 EOS % 11/07/2019 0.7 BASO % 11/07/2019 0.3 GRAN MAT x10^3(ANC) 11/07/2019 10.27* IMM GRAN x10^3 11/07/2019 0.07* LYMPH x10^3 11/07/2019 1.95 MONO x10^3 11/07/2019 0.97* EOS x10^3 11/07/2019 0.09 BASO x10^3 11/07/2019 0.04 Admission on 10/18/2019, Discharged on 10/18/2019 Component Date Value NA 10/18/2019 137 K 10/18/2019 3.4* CL 10/18/2019 106 CO2 TOTAL 10/18/2019 22* AGAP 10/18/2019 9 BUN 10/18/2019 6* GLUCOSE 10/18/2019 91 CREATININE 10/18/2019 0.41* TOTAL BILI 10/18/2019 0.3 CALCIUM 10/18/2019 9.4 T PROTEIN 10/18/2019 7.3 ALBUMIN 10/18/2019 3.9 ALK PHOS 10/18/2019 57 ALTv 10/18/2019 18 AST(SGOT) 10/18/2019 21 eGFR Calculation (Non-Af* 10/18/2019 197.8 eGFR Calculation (Reshma* 10/18/2019 239.7 HERBERT 10/18/2019 89 LIPASE 10/18/2019 86 WBC 10/18/2019 13.71* RBC 10/18/2019 3.58* HGB 10/18/2019 10.6* HCT 10/18/2019 32.7* MCV 10/18/2019 91.3 MCH 10/18/2019 29.6 MCHC 10/18/2019 32.4 RDW-SD 10/18/2019 42.1 RDW-CV 10/18/2019 12.7 PLT 10/18/2019 393* MPV 10/18/2019 10.8 NRBC/100 WBC 10/18/2019 0.0 NRBC x10^3 10/18/2019 <0.01 GRAN MAT (NEUT) % 10/18/2019 74.4 IMM GRAN % 10/18/2019 0.50 LYMPH % 10/18/2019 16.3 MONO % 10/18/2019 8.0 EOS % 10/18/2019 0.7 BASO % 10/18/2019 0.1 GRAN MAT x10^3(ANC) 10/18/2019 10.20* IMM GRAN x10^3 10/18/2019 0.07* LYMPH x10^3 10/18/2019 2.23 MONO x10^3 10/18/2019 1.10* EOS x10^3 10/18/2019 0.09 BASO x10^3 10/18/2019 <0.03 Routine Visit on 10/09/2019 Component Date Value POCT U SP GRAV 10/09/2019 . POCT PH U 10/09/2019 . POCT U LEUK EST 10/09/2019 . POCT U NIT 10/09/2019 . POCT U PROT 10/09/2019 Trace POCT U GLU 10/09/2019 Neg POCT U KETONE 10/09/2019 . POCT U UROBILI 10/09/2019 . POCT U BILI 10/09/2019 . POCT U BLD 10/09/2019 . Routine Visit on 09/11/2019 Component Date Value POCT U SP GRAV 09/11/2019 . POCT PH U 09/11/2019 . POCT U LEUK EST 09/11/2019 . POCT U NIT 09/11/2019 . POCT U PROT 09/11/2019 Trace POCT U GLU 09/11/2019 Neg POCT U KETONE 09/11/2019 . POCT U UROBILI 09/11/2019 . POCT U BILI 09/11/2019 . POCT U BLD 09/11/2019 . AFP-MS 09/11/2019 34.2 AFP-MS Interpretation 09/11/2019 Value:NTD SCREENING RESULTS: Gestation Age: Weeks 17 days 0 based on __ LMP __ PE _X_ US. Maternal Serum AFP value in ng/mL is 34.2. The corrected AFP MOM is 1.14. NORMAL RANGE is less than 2.5 MOM in NTD screening. The NTD screen result is: _X_ Negative __ Positive with a risk of 1 in Radiology No new radiology. Allergies Urvashi has No Known Allergies. Medications Urvashi has a current medication list which includes the following prescription(s): ascorbic acid (vitamin c), ferrous sulfate, promethazine, multivitamin, and vit/iron fum/folic ac. Review of Systems Constitutional: Negative. HENT: Negative. Eyes: Negative. Respiratory: Negative. Breasts: Negative. Cardiovascular: Negative. Gastrointestinal: Negative. Genitourinary: Negative. Musculoskeletal: Negative. Skin: Negative. Neurological: Negative. Psychiatric/Behavioral: Negative. Endocrine: Endocrine negative BP 115/72 (BP Location: Right arm, Patient Position: Sitting, BP CUFF SIZE: Adult Medium) | Pulse 93 | Temp 36.3 C (97.3 F) (Oral) | Resp 16 | Ht 5' 6" (1.676 m) | Wt 214 lb 8 oz (97.3 kg) | LMP 04/19/2019 (Approximate) | BMI 34.62 kg/m Pregravid BMI: 32.3 Physical Exam PHYSICAL: General Exam: Neurological: Normal Abdomen: Normal gravid Extremities: Normal Pelvic Exam: Uterus: 28 Weeks Assessment/Plan Return to clinic in 2 weeks. Denies zika virus risk, signs and symptoms such as fever,rash,joint pain, conjunctivitis (red eyes),muscle pain, headaches; outside [place] travel to areas affected by zika, and FOB exposure to zika. Educated on use of mosquito repellent. Supervision of high risk , antepartum (primary encounter diagnosis) Comment: routine Plan: HIV 1/2 AG-AB WITH REFLEX, GALV ONLY - SYPHILIS IGG/IGM, POCT URINALYSIS W SPECIFIC GRAVITY, TDAP VACCINE, >11 YRS, IM (Do not give before 20 weeks) Susceptible to varicella (non-immune), currently Comment: no mgmt today Plan:address pp Obesity affecting in second trimester Comment: see bmi Plan: BMI discussed, appropriate weight gain, sensible diet, and exercise Anemia of mother in , antepartum Comment: continue iron, PNV and iron-rich foods Plan: cbc at 36 weeks This visit did not involve counseling and coordination that comprised more than 50% of the visit time THUAN Beard 11/21/2019 2:16 PM . Maggy Clemente LVN - 11/21/2019 2:00 PM CDTPatient provided with 28 weeks packet; stressed the importance of the kick count of 10 x within 2 hours; patient verbalized understanding. Tdap given IM to right deltoid per aseptic tech; site massaged; band-aid applied; tolerated well; VIS given and reviewed with patient at this time. Shared decision plan completed today. Reviewed s/s of labor. PHQ2 done at this time. Patient denies any complications at this time. documented in this encounter Plan of Treatment Date Type Specialty Care Team Description 12/04/2019 Telemedicine Visit OB Satellites Sabino Richards, CNP [address] [address] 02/06/2020 Hospital Encounter Obstetrics Adum, Sarika Jolly MD [address] [facility] [address] [place] [address] 15-1500 Name Type Priority Associated Diagnoses Date/Ti me HIV 1/2 AG-AB WITH LAB Routine Supervision of high ri sk 11/21/2019 1:49 PM CDT REFLEX , antepartum GALV ONLY - SYPHILIS LAB Routine Supervision of high risk 11/21/2019 1:49 PM CDT IGG/IGM , antepartum Health Maintenance Due Date Last Done Comments WELL CARE VISIT: 12-21 YEARS 2020 2019 (yearly) HPV VACCINES (1 - Female 05/26/2020 Postpon ed from 2010 2-dose series) ( or ) MENINGOCOCCAL B VACCINES (1 06/04/2020 Post poned from 2009 of 2 - Risk Bexsero 2-dose (Preg nant or series) ) CHLAMYDIA SCREENING 06/05/2020 06/05/2019, 06/05/2019, 03/13/2015 INFLUENZA VACCINE (#1) 2020 Postponed from 04/09/2019 (Refused) VARICELLA VACCINES (1 of 2 - 06/05/2020 Pos tponed from 2000 2-dose childhood series) (Pregna nt or ) DTaP,Tdap,and Td Vaccines (3 11/20/2029 11/21/2019, - Td) 03/13/2013 MENINGOCOCCAL VACCINE Aged Out No longer eligible based on patient's age to complete this to pic PNEUMOCOCCAL 0-64 YEARS Aged Out No longe r eligible based COMBINED SERIES on patient's age to complete this to pic documented as of this encounter Procedures Procedure Name Priority Date/Time Associated Diagnosis Comme nts POCT URINALYSIS Routine 11/21/2019 1:55 Supervision of high R esults for this PM CDT risk , procedure ar e in antepartum the results section. TDAP VACCINE, >11 Routine 11/21/2019 1:52 Supervision of high YRS, IM PM CDT risk , antepartum documented in this encounter Results POCT URINALYSIS W SPECIFIC GRAVITY (11/21/2019 1:55 PM CDT) Pathologist Sig nature POCT U SP GRAV . 1.005 - 1.025 mg/dl POCT PH U . 5 - 8 mg/dl POCT U LEUK EST . Negative - Negative POCT U NIT . Negative - Negative POCT U PROT Trace Negative - Negative POCT U GLU Neg Negative - Negative POCT U KETONE . Negative - Negative POCT U UROBILI . 0.2 - 1 mg/dl POCT U BILI . Negative - Negative POCT U BLD . Negative - Negative POCT U COLOR POCT U APPEAR Specimen Urine - URINE, CLEAN CATCH documented in this encounter Visit Diagnoses Diagnosis Supervision of high risk , ante - Primary Susceptible to varicella (non-immune), c urrently Supervision of other high-risk Obesity affecting in second tr imester Anemia of mother in , antepartu m Anemia, antepartum documented in this encounter Insurance Payer Benefit Plan / Subscriber ID Effective Phone Address T ype Group Dates ENTRUST ENTRUST [id number] 2019-Pres PPO ent [facility] xxxxxxxxx 2019-Pres [address] Medic aid HEALTH CHOICE - HEALTH CHOICE ent [id number] 1 MANAGED MEDICAID [place], [place] MEDICAID [phone] documented as of this encounter
--- OUTSIDE RECORDS SUMMARY | 2020-02-12 21:54 | XMS REPORT | Continuity of Care Document ---
:1999 Author Organization [employer] Care Team Providers Name Role Phone [employer] Unavailable Un available Problems Problem Status Onset Classification Date Comments Sourc e Date Reported Leukocytosis, Active Problem 09/07/2018 eCW: Sugar unspecified [place] type Family Practice Lower abdominal Active Diagnosis 08/30/2018 eCW : Sugar pain [facility] Practice Encounter for Active Diagnosis 08/30/2018 eCW: Sugar screening [facility] Medications Medication Details Route Status Patient Ordering Order Source Instructions Provider Date Cipro 1 tab(s) orally Active 500 mg orally Vanderzyl eCW: [place] [facility] every [address] [place] [address] Allergies, Adverse Reactions, Alerts Substance Category Reaction Severity Reaction Status Date Comments S ource type Reported N.K.D.A. Adverse Info Not Adverse Active eCW: Reaction Available Reaction [address] [facility] Immunizations No Data Provided for This [...] Date Comments Source Height 65 07/22/2018 eCW: [facility] Weight 202 07/22/2018 eCW: [facility] Temperature Oral (F) 96.0 F 07/22/2018 eCW: [place] [facility] Diastolic (mm Hg) 78 07/22/2018 eCW: [facility] Systolic (mm Hg) 122 07/22/2018 eCW: [facility] Encounters No Data Provided for This [...]
--- OUTSIDE RECORDS SUMMARY | 2020-02-12 21:55 | XMS REPORT | Summary of Care ---
:1999 Author Organization [facility] - Health Address [address] [place] [address] Care Team Providers Name Role Phone Lizzie Richards [facility] Primary Care Provider [phone] Encounter Details Date Type Department Care Team Description 11/21/2019 Orders Only [facility] Doctor Unassigned, No [address] [facility] [place] [address] [address] [place] [address] Allergies No Known Allergiesdocumented as of this [...] 02/09/2020 Based on Ultrasound, outside [facility]g at [facility] documented as of this encounter (statuses as of 11/21/2019) Immunizations Name Administration Dates Next Due Tdap 11/21/2019, 03/13/2013 documented as of this encounter Social History Tobacco Use Types Packs/Day Years Used Date Never Smoker Smokeless Tobacco: Never Used Alcohol Use Drinks/Week oz/Week Comments No 0 Standard drinks or equivalent 0.0 Estimated Date of Delivery Comments Yes 02/09/2020 Based on Ultrasound, outside usg at [facility] Sex Assigned at Date Recorded Not on file Job Start Date Occupation Industry Not on file Not on file Not on file Travel History Travel Start Travel End No recent travel history available. documented as of this encounter Last Filed Vital Signs Not on filedocumented in this encounter Plan of Treatment Date Type Specialty Care Team Description 12/04/2019 Telemedicine Visit OB Satellites Sabino Richards, WHCNP [address] [address] [phone] 02/06/2020 Hospital Encounter Obstetrics Adum, Sarika Jolly MD [address] [place] [address] 15-1500 Health Maintenance Due Date Last Done Comments [...] Name Priority Date/Time Associated Diagnosis Comme nts PATIENT CORRESPONDENCE Routine 11/21/2019 12:01 AM (LETTERS, USPS CDT DOCUMENTATION) documented in this encounter Results Not on filedocumented in this encounter Insurance Payer Benefit Plan / Subscriber ID Effective Phone Address T ype Group Dates ENTRUST ENTRUST [id number] 2019-Pres PPO ent [employer] xxxxxxxxx 2019-Pres [address]. BOX Medic aid HEALTH CHOICE - HEALTH CHOICE ent [id number] 1 MANAGED MEDICAID [place], [place] [phone] documented as of this encounter
--- OUTSIDE RECORDS SUMMARY | 2020-02-12 21:55 | XMS REPORT | Summary of Care ---
:1999 Author Organization [facility] Address [address] [place] [address] Care Team Providers Name Role Phone [facility]izzie Richards [facility] Primary [facility] Provider [phone] Reason for Visit Reason Comments Assessment not feeling baby move Encounter Details Date Type Department Care Team Description 11/24/2019 Telephone [facility]- Lizzie Richards Ass essment (not [place] [facility]) [address] [facility] [address] [facility] [place] [address] [place], [place] [address] Allergies No Known Allergiesdocumented as of this encounter (statuses as of 11/24/2019) Medications Medication Sig Dispensed Refills Start Date [...] as of this encounter (statuses as of 11/24/2019) Active Problems Problem Noted Date Anemia of mother in , antepartum 11/08/2019 Leukorrhea 10/09/2019 Obesity (BMI 30-39.9) 09/09/2019 Diarrhea during 08/14/2019 Susceptible to varicella (non-immune), currently pregn ant 06/06/2019 Overview: Address pp Supervision of high-risk 06/05/2019 Obesity affecting 06/05/2019 Tachycardia, unspecified 06/05/2019 Overview: Per patient report Estimated Date of Delivery Comments Yes 02/09/2020 Based on Ultrasound, outside usg at [facility] documented as of this encounter (statuses as of 11/24/2019) Immunizations Name Administration Dates Next Due Tdap 11/21/2019, 03/13/2013 documented as of this encounter Social History Tobacco Use Types Packs/Day Years Used Date Never Smoker Smokeless Tobacco: Never Used Alcohol Use Drinks/Week oz/Week Comments No 0 Standard drinks or equivalent 0.0 Estimated Date of Delivery Comments Yes 02/09/2020 Based on Ultrasound, outside usg at [facility] Sex Assigned at Date Recorded Not [...] OB Satellites Sabino Richards, WHCNP [address], [place] [address] [phone] 02/06/2020 Hospital Encounter Obstetrics AdumSarika MD [address] [place], [place] [address] Health Maintenance Due Date Last Done [...] to pic documented as of this encounter Results Not on filedocumented in this encounter Insurance Payer Benefit Plan / Subscriber ID Effective Phone Address T ype Group Dates ENTRUST ENTRUST [id number] 2019-Pres PPO ent [employer] xxxxxxxxx 2019-Pres P[address]O. BOX Medic aid HEALTH CHOICE - HEALTH CHOICE ent [id number] 1 MANAGED MED[place] [phone] documented as of this encounter
--- OUTSIDE RECORDS SUMMARY | 2020-02-12 21:55 | XMS REPORT | Summary of Care ---
:1999 Author Organization [facility] Address [address] [place] [address] Care Team Providers Name Role Phone Lizzie Richards [facility] Primary Care Provider [phone] Reason for Visit Reason Comments PELVIC PRESSURE CRAMPING Encounter Details Date Type Department Care Team Description 12/28/2019 Nurse Triage [facility] Toshia Tan RN ; PELVIC [address] [place] [address] PRESSURE; C [place]AMP[place] [address] [phone] Allergies No Known Allergiesdocumented as of this encounter (statuses as of 12/28/2019) Medications Medication Sig Dispensed Refills Start Date [...] as of this encounter (statuses as of 12/28/2019) Active Problems Problem Noted Date Severinodara Fonsecak's contraction 12/04/2019 Anemia of mother in , antepartum 11/08/2019 Leukorrhea 10/09/2019 Obesity (BMI 30-39.9) 09/09/2019 Diarrhea during 08/14/2019 Susceptible to varicella (non-immune), currently pregn ant 06/06/2019 Overview: Address pp Supervision of high-risk 06/05/2019 Obesity affecting 06/05/2019 Tachycardia, unspecified 06/05/2019 Overview: Per patient report Estimated Date of Delivery Comments Yes 02/09/2020 Based on Ultrasound, outside usg at [facility] documented as of this encounter (statuses as of 12/28/2019) Immunizations Name Administration Dates Next Due Tdap 11/21/2019, 03/13/2013 documented as of this encounter Social History Tobacco Use Types Packs/Day Years Used Date Never Smoker Smokeless Tobacco: Never Used Alcohol Use Drinks/Week oz/Week Comments No 0 Standard drinks or equivalent 0.0 Estimated Date of Delivery Comments Yes 02/09/2020 Based on Ultrasound, outside usg at [facility] Sex Assigned at Date Recorded Not on file Job Start Date Occupation Industry Not on file Not on file Not on file Travel History Travel Start Travel End No recent travel history available. COVID-19 Exposure Response Date Recorded In the last month, have you been in contact with No / Unsure 12/14/2019 6:32 PM CDT someone who was confirmed or suspected to have Coronavirus / COVID-19? documented as of this encounter Last Filed Vital Signs Not on filedocumented in this encounter Plan of Treatment Date Type Specialty Care Team Description 01/05/2020 Routine Visit OB Satellites Lawrence Richards, RADHAP [address] [place], [place] [address] [phone] 02/06/2020 Hospital Encounter Obstetrics Adum, Sarika Jolly MD [address] [facility] [address] [place] [address] [phone] Health Maintenance Due Date Last Done Comments WELL CARE VISIT: 12-21 YEARS 2020 2019 (yearly) HPV VACCINES (1 - Female 05/26/2020 Postpon ed from 2010 2-dose series) ( or ) MENINGOCOCCAL B VACCINES (1 06/04/2020 Post poned from 2009 of 2 - Risk Bexsero 2-dose (Preg nant or series) ) CHLAMYDIA SCREENING 06/05/2020 06/05/2019, 06/05/2019, 03/13/2015 INFLUENZA VACCINE (Season 06/05/2020 Postpo dinora from 04/09/2020 Ended) (Refused) VARICELLA VACCINES (1 of 2 - [...] Address T ype Group Dates ENTRUST ENTRUST [id number] 2019-Pres PPO ent [facility] xxxxxxxxx 2019-Pres [address] Medic aid HEALTH CHOICE - HEALTH CHOICE ent [id number] 1 MANAGED MEDICAID [place], [place] MEDICAID [id number] documented as of this encounter
--- OUTSIDE RECORDS SUMMARY | 2020-02-12 21:55 | XMS REPORT | Summary of Care ---
:1999 Author Organization [facility] Address [address] [place] [address] Care Team Providers Name Role Phone Lizzie Richards [facility] Primary Care Provider [phone] Reason for Visit Reason Comments Fall Auth/Cert Status Reason Specialty Diagnoses / Referred By Referred To Procedures Contact Contact Emergency Medicine Diagnoses FALL [facility] Emergency Dept [address] [facility] [place] [address] Fax: Encounter Details Date Type Department Care Team Description 12/14/2019 Emergency [facility] Labor and Delivery Amy Medina, DO [address] [place], [place] [id number] Unit Swati Vang MD [address] [facility] [address] [place] [address] [id number] [address] [facility] [place] [address] Allergies No Known Allergiesdocumented as of this encounter (statuses as of 12/14/2019) Medications Medication Sig Dispensed Refills Start Date [...] as of this encounter (statuses as of 12/14/2019) Active Problems Problem Noted Date Severino Hick's contraction 12/04/2019 Anemia of mother in , antepartum 11/08/2019 Leukorrhea 10/09/2019 Obesity (BMI 30-39.9) 09/09/2019 Diarrhea during 08/14/2019 Susceptible to varicella (non-immune), currently pregn ant 06/06/2019 Overview: Address pp Supervision of high-risk 06/05/2019 Obesity affecting 06/05/2019 Tachycardia, unspecified 06/05/2019 Overview: Per patient report Estimated Date of Delivery Comments Yes 02/09/2020 Based on Ultrasound, outside usg at [facility] documented as of this encounter (statuses as of 12/14/2019) Immunizations Name Administration Dates Next Due Tdap 11/21/2019, 03/13/2013 documented as of this encounter Social History Tobacco Use Types Packs/Day Years Used Date Never Smoker Smokeless Tobacco: Never Used Alcohol Use Drinks/Week oz/Week Comments No 0 Standard drinks or equivalent 0.0 Estimated Date of Delivery Comments Yes 02/09/2020 Based on Ultrasound, outside usg at [facility] Sex Assigned at Date Recorded Not [...] Sign Reading Time Taken Comments Blood Pressure 101/71 12/14/2019 11:45 PM CDT Pulse 96 12/14/2019 11:45 PM CDT Temperature 36.9 C (98.4 F) 12/14/2019 11:45 PM CDT Respiratory Rate 18 12/14/2019 11:45 PM CDT Oxygen Saturation 100% 12/14/2019 11:45 PM CDT Inhaled Oxygen Concentration - - Weight 97.1 kg (214 lb) 12/14/2019 7:23 PM CDT Height 167.6 cm (5' 6") 12/14/2019 7:23 PM CDT Body Mass Index 34.54 12/14/2019 7:23 PM CDT documented in this encounter Discharge Instructions Karina Lowe RN - 12/14/2019Preterm Labor (36 weeks and before): 1. Drink at least 10-12 glasses of water daily. 2. When resting or sleeping, stay off your back as much as possible. Use pillows for extra support. 3. Be sure to empty your bladder frequently at least every 2 hours. 4. No sexual intercourse or orgasm until checking with your doctor. 5. No tampons or douching until checking with your doctor. 6. Return to Labor and Delivery if you have any of the followin. Tightening of the uterus (contractions) 6 or more per hour. 2. Periodlike cramping. 3. Low back pain. 4. Pelvic pressure or aching thighs. 5. Abdominal cramping with or without diarrhea. 6. Vaginal spotting or bleeding with any of the above symptoms. 7. Leaking of fluid from your vagina. Term Labor (37+ weeks): Return to Labor and Delivery/ Center if: 1. Your contractions become more regular, at least every 5-6 minutes apart for one hour after walking and drinking a large glass of water. 2. Your bag of water starts leaking or you have a gush of water from your vagina. 3. If you are not sure if your water has broken: 1. Go to the bathroom and empty your bladder. 2. Put on a pad. If it is wet within hour, you may be leaking from your bag of water. You should come to the hospital to be checked right away. 3. Note the color and odor of the fluid. 4. Your babys movements have decreased or if your baby is not moving. 5. You have vaginal bleeding as heavy as a period. Decreased Movement: 1. Your baby should move at least 10 times in 2 hrs. 2. Keep a record of your babys movements on the Kick Count sheet provided 3. If you feel your baby is not moving as much as usual, do the followin. Drink a large glass of water. 2. Make sure you have eaten a meal recently. 3. Lie on your left side and count the babys movements. 4. If you do not have at least 10 movements in 2 hours, you should be seen as soon as possible in Labor and Delivery, or call your clinic, whichever is closer. 5. IF YOUR BABYS MOVEMENTS ARE MUCH SLOWER THAN NORMAL, OR ABSENT, AND YOU ARE WORRIED, DO NOT WAIT AN ENTIRE DAY. IT IS BETTER TO BE REASSURED THAN TO FIND A PROBLEM WITH YOUR BABY THAT COULD HAVE BEEN AVOIDED! Urinary Tract Infections: 1. Drink plenty of fluids, at least 10-12 glasses of water daily. 2. Have your prescription filled today. 3. Take all of the medication prescribed, even if you are feeling better. 4. Empty your bladder often at least every 2 hours. 5. Be sure to wipe from front to back after urinating. 6. Call your clinic if: 1. You have a fever of 100.4 F by mouth after taking your temperature twice, 4 hours apart. 2. You see blood in your urine. 3. You are unable to urinate. 4. You have severe pain when you urinate. 7. Avoid alcohol, soft drinks and drinks with caffeine such as teas and coffee during this treatment. Bleedin. It is normal to have some red, pink, or brown spotting after a vaginal exam. 2. [place], light red and brownish spotting is not unusual, especially later in the . 3. However, if heavy bleeding is present: a. Note the amount with the number of pads saturated. b. Note the color of the bleeding. c. Note any pain associated with the bleeding. d. Call Labor and Delivery or your clinic immediately. Fever: 1. Call your clinic if you have a fever of 100.4 F by mouth after taking your temperature twice, 4 hours apart. 2. Do not take any ckdc-uqm-dbptyrp medications for an illness unless you have been instructed to doso by your physician or nurse. You should only take medicines on the list of safe medicines given to you at your clinic. Do not take more than the recommended doses. High Blood Pressure: Return to Labor and Delivery if you have: 1. Swelling in your face, puffiness around your eyes, more than slight swelling of your hands, or excessive or sudden swelling of your feet or ankles. 2. Sudden weight gain (more than 4 pounds in a week). 3. Throbbing headaches that wont go away, even after taking ipyd-nyl-aihfyln medicines as instructed by your care provider. 4. Changes in vision, including blurry vision, a sensation of flashing lights or spots, or temporaryloss of vision. 5. Severe pain or tenderness in your upper stomach area. This may include nausea and vomiting. 6. documented in this encounter Plan of Treatment Date Type Specialty Care Team Description 12/20/2019 Telemedicine Visit OB Satellites Sabino Richards, CNP [address], [place] [address] [phone] 02/06/2020 Hospital Encounter Obstetrics Adum, Sariak Jolly MD [address] [facility] [address] [place] [phone] Health Maintenance Due Date Last Done Comments [...] Address T ype Group Dates ENTRUST ENTRUST [id number] 2019-Pres PPO ent [facility] xxxxxxxxx 2019-Pres [address] Medic aid HEALTH CHOICE - HEALTH CHOICE ent [id number] 1 MANAGED MEDICAID [place], [place] MEDICAID [phone] documented as of this encounter
--- OUTSIDE RECORDS SUMMARY | 2020-02-12 21:55 | XMS REPORT | Summary of Care ---
:1999 Author Organization [facility] Address [address] [place] [address] Care Team Providers Name Role Phone Lizzie Richards TAZ Primary Care Provider [phone] Reason for Visit Reason Comments ROUTINE VISIT telehealth Encounter Details Date Type Department Care Team Description 12/20/2019 Telemedicine Visit [facility]CHP- Susie, Sup ervision of high risk , antepartum (Primary Dx); [place] TAZ Ob[facility] affecting [facility]; [address] Susceptible to varicella (no n-immune), currently ; [facility] Anemia of mother in , antepartu [phone] [facility] [phone] [place] [address] Allergies No Known Allergiesdocumented as of this encounter (statuses as of 12/20/2019) Medications Medication Sig Dispensed Refills Start Date [...] as of this encounter (statuses as of 12/20/2019) Active Problems Problem Noted Date Severino Hick's contraction 12/04/2019 Anemia of mother in , antepartum 11/08/2019 Leukorrhea 10/09/2019 Obesity (BMI 30-39.9) 09/09/2019 Diarrhea during 08/14/2019 Susceptible to varicella (non-immune), currently pregn ant 06/06/2019 Overview: Address pp Supervision of high-risk 06/05/2019 Obesity affecting 06/05/2019 Tachycardia, unspecified 06/05/2019 Overview: Per patient report Estimated Date of Delivery Comments Yes 02/09/2020 Based on Ultrasound, outside usg at [facility] documented as of this encounter (statuses as of 12/20/2019) Immunizations Name Administration Dates Next Due Tdap 11/21/2019, 03/13/2013 documented as of this encounter Social History Tobacco Use Types Packs/Day Years Used Date Never Smoker Smokeless Tobacco: Never Used Alcohol Use Drinks/Week oz/Week Comments No 0 Standard drinks or equivalent 0.0 Estimated Date of Delivery Comments Yes 02/09/2020 Based on Ultrasound, outside usg at [facility] Sex Assigned at Date Recorded Not [...] Sign Reading Time Taken Comments Blood Pressure 94/56 12/20/2019 2:12 PM CDT Pulse - - Temperature - - Respiratory Rate - - Oxygen Saturation - - Inhaled Oxygen Concentration - - Weight - - Height - - Body Mass Index - - documented in this encounter Progress Notes Lizzie Richards, WHCNP - 12/20/2019 1:45 PM CDT TELEHEALTH NOTE Verbal consent obtained from Patient: Urvashi Molina due to the COVID-19 pandemic for telehealth services provided below. Communication with patient was conducted via Telephone due to patient unable to obtain video call option. Location of Patient: Home Location of Provider: Clinic Date of Service: 12/20/2019 Chief Complaint: visit HPI: Urvashi Molina is a 19 year old female with Past Medical History: Diagnosis Date Anemia of mother in , antepartum 11/08/2019 Tachycardia 10/2018 Pt hospitalized for 1 week at [facility] Vision problems wears glasses CC: Follow Up Visit Urvashi Molina is a 19 year old, , Black or female. Patient's last menstrual periodwas 04/19/2019 (approximate). She is 32w5d with an intrauterine . Her estimated date of delivery is 02/09/2020, by Ultrasound. She has no complaints today. She reports +FM and denies contractions, LOF and bleeding today. COVID-19 SCREEN: ? Recent history of travel to a high-risk area: No ? Recent sick contacts before or during admission: No ? Contact with a proven COVID-19 case: No ? Symptoms of COVID-19, which include fever, dry cough, fatigue, difficulty breathing: No This patient is considered low risk for COVID-19 infection. Labs No new labs, Labs are pending. and Routine Visit on 11/21/2019 Component Date Value HIV 1/2 Ag-Ab with Reflex 11/21/2019 Negative HIV Semi-quantitative 11/21/2019 0.06 SYPH IGG 11/21/2019 Non-reactive POCT U SP GRAV 11/21/2019 . POCT PH U 11/21/2019 . POCT U LEUK EST 11/21/2019 . POCT U NIT 11/21/2019 . POCT U PROT 11/21/2019 Trace POCT U GLU 11/21/2019 Neg POCT U KETONE 11/21/2019 . POCT U UROBILI 11/21/2019 . POCT U BILI 11/21/2019 . POCT U BLD 11/21/2019 . Routine Visit on 11/07/2019 Component Date Value [...] 10/09/2019 . POCT U BLD 10/09/2019 . Radiology No new radiology. MEDICATIONS: Current Outpatient Medications Medication Sig Dispense Refill ascorbic acid, vitamin C, 500 mg tablet Take 1 tablet by mouth 3 (three) times daily. 90 tablet 2 ferrous sulfate 325 mg (65 mg iron) tablet Take 1 tablet by mouth 2 (two) times daily. 60 tablet3 proMETHazine 25 mg tablet Take 1 tablet by mouth every 6 (six) hours as needed for Nausea and Vomiting (N/V). 30 tablet 0 multivitamin ( VITAMIN) tablet Take 1 tablet by mouth daily. 90 tablet 3 vit/iron fum/folic ac ( 1 + 1 ORAL) Take by mouth. No current facility-administered medications for this visit. ROS Constitutional: negative Eyes: negative Ears: negative Nose/Sinuses: negative Mouth/Throat: negative Cardiovascular: negative Respiratory: negative Gastrointestinal: negative Genitourinary: negative Musculoskeletal: negative Integumentary: negative Neuro: negative Psych: negative Endocrine: negative Hem/Lymph: negative Allergy/Immunology: negative TELEHEALTH EXAM Constitutional: alert and in no distress Respiratory: breathing comfortably Neuro: answers questions appropriately Psych: normal affect PHYSICAL: General Exam: telehealth visit Neurological: Normal Abdomen: Normal gravid Extremities: Normal ASSESSMENT/ PLAN Return to clinic in 2 weeks pnv with labs Urvashi Molina is a 19 year old female with PMH as above presenting with: 1. Supervision of high risk , antepartum Comment: routine Plan: as ordered - CBC WITH DIFF; Future - GROUP B STREPTOCOCCUS BY PCR; Future - GC & CHLAMYDIA AMPLIFIED ASSAY; Future 2. Obesity affecting in third trimester Comment: See bmi Plan: BMI discussed, appropriate weight gain, sensible diet, and exercise, increased fiber and waterintake and protein low in fat. Encouraged exercise for 30 min everyday; begin regimen with caution to prevent injury. Encouraged to decrease BMI to <25. 3. Susceptible to varicella (non-immune), currently Comment: no mgmt today Plan: address pp 4. Anemia of mother in , antepartum Comment: continue iron, PNV and iron-rich foods Plan: cbc at next visit After visit summary (AVS ) documentation will be available through [employer] for this encounter. A total of 10 minutes was spent on the Telephone due to patient unable to obtain video call option. THUAN Beard documented in this encounter Plan of Treatment Date Type Specialty Care Team Description 02/06/2020 Hospital Encounter Obstetrics Adum, Sarika Jolly MD [address] [place] [address] [address] [place] [address] [phone] Name Type Priority Associated Diagnoses Order S chedule CBC WITH DIFF LAB Routine Supervision of high risk Ex pected: 12/20/2019, , antepartum s: 12/19/2020 GROUP B STREPTOCOCCUS BY LAB Routine Supervision of h igh risk Expected: 01/03/2020, PCR , antepartum s: 12/19/2020 GC & CHLAMYDIA AMPLIFIED LAB Routine Supervision of h igh risk Expected: 01/03/2020, ASSAY , antepartum s: 12/19/2020 Health Maintenance Due Date Last Done Comments [...] on patient's age to complete this to [facility] PNEUMOCOCCAL 0-64 YEARS Aged Out No longe r eligible based COMBINED SERIES on patient's age to complete this to pic documented as of this encounter Results Not on filedocumented in this encounter Visit Diagnoses Diagnosis Supervision of high risk , ante - Primary Obesity affecting in third tri mester Susceptible to varicella (non-immune), c urrently Supervision of other high-risk Anemia of mother in , antepartu m Anemia, antepartum documented in this encounter Insurance Payer Benefit Plan / Subscriber ID Effective Phone Address T ype Group Dates ENTRUST ENTRUST [id number] 2019-Pres PPO ent [facility] xxxxxxxxx 2019-Pres P[address]OX Medic aid HEALTH CHOICE - HEALTH CHOICE ent [id number] 1 MANAGED MEDICAID [place], [place] MEDICAID [phone] documented as of this encounter
--- OUTSIDE RECORDS SUMMARY | 2020-02-12 21:55 | XMS REPORT | Summary of Care ---
:1999 Author Organization [facility] Address [address] [place] [address] Care Team Providers Name Role Phone Lizzie Richards TAZ Primary Care Provider [phone] Reason for Visit Reason Comments Care telehealth Encounter Details Date Type Department Care Team Description 12/04/2019 Telemedicine [address] [facility]- Susie, Sup ervision of high risk in third trimester (Primary Dx); [place] TAZ Obesity affecting in third tri mester; [address] Susceptible to varicella (no n-immune), currently ; [facility] Anemia of mother in , antepartu [phone] [facility] [phone] [place] [address] Allergies No Known Allergiesdocumented as of this encounter (statuses as of 12/04/2019) Medications Medication Sig Dispensed Refills Start Date [...] as of this encounter (statuses as of 12/04/2019) Active Problems Problem Noted Date Severino Hick's [...] as of this encounter (statuses as of 12/04/2019) Immunizations Name Administration Dates Next Due Tdap [...] been in contact with No / Unsure 11/21/2019 1:49 PM CDT someone who was confirmed or suspected to have Coronavirus / COVID-19? documented as of this encounter Last Filed Vital Signs Vital Sign Reading Time Taken Comments Blood Pressure 106/69 12/04/2019 2:16 PM CDT Pulse - - Temperature - - Respiratory Rate - - Oxygen Saturation - - Inhaled Oxygen Concentration - - Weight - - Height - - Body Mass Index - - documented in this encounter Progress Notes Lizzie Richards, WHCNP - 12/04/2019 2:00 PM CDT TELEHEALTH NOTE Verbal consent obtained from Patient: Urvashi Molina due to the COVID-19 pandemic for telehealth services provided below. Communication with patient was conducted via Telephone due to patient unable to obtain video call option. Location of Patient: Home Location of Provider: home Date of Service: 12/04/2019 Chief Complaint: visit HPI: Urvashi Molina is a 19 year old female with Past Medical History: Diagnosis Date Anemia of mother in , antepartum 11/08/2019 Tachycardia 10/2018 Pt hospitalized for 1 week at [facility] Vision problems wears glasses CC: Follow Up Visit Urvashi Molina is a 19 year old, , Black or female. Patient's last menstrual periodwas 04/19/2019 (approximate). She is 30w3d with an intrauterine . Her estimated date [...] risk for COVID-19 infection. Labs No new labs and Routine Visit on 11/21/2019 Component Date [...] of 1 in Radiology No new radiology. MEDICATIONS: Current Outpatient [...] Psych: normal affect PHYSICAL: General Exam: telehealth Neurological: Normal Abdomen: Normal gravid Extremities: Normal ASSESSMENT/ PLAN Return to clinic in 2 weeks for pnv Urvashi Molina is a 19 year old female with PMH as above presenting with: 1. Supervision of high risk in third trimester Comment: routine Plan: as needed mgmt, patient was able to check Bp with home blood pressure cuff, see Flowsheet. 2. Obesity affecting in third trimester Comment: see bmi Plan: BMI discussed, [...] iron-rich foods Plan: cbc at 36 weeks [place] hick contractions Comment: reports Plan; patient advised to drink plenty of water, stay well hydrated After visit summary (AVS ) documentation will be available through [employer] for this encounter. A total of 11 minutes was spent on the Telephone due to patient unable to obtain video call option. THUAN Beard documented in this encounter Plan of Treatment Date Type Specialty Care Team Description 12/20/2019 Telemedicine Visit OB Satellites Sabino Richards WHCNP [address] [place], [place] [address] [phone] 02/06/2020 Hospital Encounter Obstetrics Sarika Fuller MD [address] [place] [phone] Health Maintenance Due Date Last Done [...] Visit Diagnoses Diagnosis Supervision of high risk in th ird trimester - Primary Unspecified high-risk Obesity affecting in third tri mester Susceptible to varicella (non-immune), c urrently Supervision of other high-risk Anemia of mother in , antepartu m Anemia, antepartum documented in this encounter Insurance Payer Benefit Plan / Subscriber ID Effective Phone Address T ype Group Dates ENTRUST ENTRUST [id number] 2019-Pres PPO ent [employer] xxxxxxxxx 2019-Pres [address]. [address]OX Medic aid HEALTH CHOICE - HEALTH CHOICE ent [id number] 1 MANAGED MEDICAID [place], [place] [id number] documented as of this encounter
--- OUTSIDE RECORDS SUMMARY | 2020-02-12 21:56 | XMS REPORT | Summary of Care ---
:1999 Author Organization [facility] - [facility] Address [address] [place] [id number] Care Team Providers Name Role Phone Lizzie Richards [facility] Primary Care Provider [phone] Reason for Visit Reason Comments LEG SWELLING No Contact Encounter Details Date Type Department Care Team Description 01/01/2020 Nurse Triage [facility] Karyn Munguia RN LEG SWELLING; No [address] [place] [phone] Allergies No Known Allergiesdocumented as of this encounter (statuses as of 01/01/2020) Medications Medication Sig Dispensed Refills Start Date [...] as of this encounter (statuses as of 01/01/2020) Active Problems Problem Noted Date [place] Hick's contraction 12/04/2019 Anemia of mother in [...] as of this encounter (statuses as of 01/01/2020) Immunizations Name Administration Dates Next Due Tdap [...] OB Satellites Lawrence Richards, RADHAP [address] [place] [address] 15 [phone] 02/06/2020 Hospital Encounter Obstetrics Adum, Sarika Jolly MD [address] [facility] [address] [place] [address] 15-1500 [phone] Health Maintenance Due Date Last Done Comments [...] / Subscriber ID Effective Phone Address T [facility] Group Dates ENTRUST ENTRUST [id number] 2019-Pres PPO ent [facility] xxxxxxxxx 2019-Pres P.O. BOX Medic aid HEALTH CHOICE - HEALTH CHOICE ent [id number] 1 MANAGED MEDICAID [place], [place] MEDICAID [phone] documented as of this encounter
--- OUTSIDE RECORDS SUMMARY | 2020-02-12 21:56 | XMS REPORT | Summary of Care ---
:1999 Author Organization [facility] Address [address] [place] [address] Care Team Providers Name Role Phone Lizzie Richards [facility] Primary Care Provider [phone] Reason for Visit Reason Comments Assessment pelvic and back pain Encounter Details Date Type Department Care Team Description 12/29/2019 Telephone [facility]- Lizzie Richards Ass essment (pelvic and [place] C, [facility] back pain) [address] [facility] [address] [facility] [id number] [place], [place] [id number] Allergies No Known Allergiesdocumented as of this encounter (statuses as of 12/29/2019) Medications Medication Sig Dispensed Refills Start Date [...] as of this encounter (statuses as of 12/29/2019) Active Problems Problem Noted Date [place] Hick's contraction 12/04/2019 Anemia of mother in , antepartum 11/08/2019 Leukorrhea 10/09/2019 Obesity (BMI 30-39.9) 09/09/2019 Diarrhea during 08/14/2019 Susceptible to varicella (non-immune), currently pregn ant 06/06/2019 Overview: Address pp Supervision of high-risk 06/05/2019 Obesity affecting 06/05/2019 Tachycardia, unspecified 06/05/2019 Overview: Per patient report Estimated Date of Delivery Comments Yes 02/09/2020 Based on Ultrasound, outside usg at [facility] documented as of this encounter (statuses as of 12/29/2019) Immunizations Name Administration Dates Next Due Tdap 11/21/2019, 03/13/2013 documented as of this encounter Social History Tobacco Use Types Packs/Day Years Used Date Never Smoker Smokeless Tobacco: Never Used Alcohol Use Drinks/Week oz/Week Comments No 0 Standard drinks or equivalent 0.0 Estimated Date of Delivery Comments Yes 02/09/2020 Based on Ultrasound, outside usg at [facility] Sex Assigned at Date Recorded Not [...] 01/05/2020 Routine Visit OB Satellites Lawrence Richards, WHCNP [address] [place], [place] [address] [phone] 02/06/2020 Hospital Encounter Obstetrics AdumSarika MD [address] [place] [address] [address] [place] [address] 15-1500 Health Maintenance Due Date Last Done [...] Address T ype Group Dates ENTRUST ENTRUST [id number] 2019-Pres PPO ent [facility] xxxxxxxxx 2019-Pres P[address]O. BOX Medic aid HEALTH CHOICE - HEALTH CHOICE ent [id number] 1 MANAGED MEDICAID [place], [place] MEDICAID [phone] documented as of this encounter
--- OUTSIDE RECORDS SUMMARY | 2020-02-12 21:56 | XMS REPORT | Summary of Care ---
:1999 Author Organization [facility] - [facility] Address [address] [place] [address] Care Team Providers Name Role Phone Lizzie Richards [facility] Primary Care Provider [phone] Reason for Visit Reason Comments , 34w 3d, lower extremi ty edema, worsening x 2 weeks Encounter Details Date Type Department Care Team Description 01/01/2020 Nurse Triage [facility] Kaylene Dorsey RN (, [address] [place] [address] 3d, lower e xtremity [place] [address] edema, worsening x 2 [place] [address] weeks) [phone] Allergies No Known Allergiesdocumented as of this encounter (statuses as of 01/02/2020) Medications Medication Sig Dispensed Refills Start Date [...] as of this encounter (statuses as of 01/02/2020) Active Problems Problem Noted Date [place] Hick's contraction 12/04/2019 Anemia of mother in , antepartum 11/08/2019 Leukorrhea 10/09/2019 Obesity (BMI 30-39.9) 09/09/2019 Diarrhea during 08/14/2019 Susceptible to varicella (non-immune), currently pregn ant 06/06/2019 Overview: Address pp Supervision of high-risk 06/05/2019 Obesity affecting 06/05/2019 Tachycardia, unspecified 06/05/2019 Overview: Per patient report Estimated Date of Delivery Comments Yes 02/09/2020 Based on Ultrasound, outside usg at [facility] documented as of this encounter (statuses as of 01/02/2020) Immunizations Name Administration Dates Next Due Tdap 11/21/2019, 03/13/2013 documented as of this encounter Social History Tobacco Use Types Packs/Day Years Used Date Never Smoker Smokeless Tobacco: Never Used Alcohol Use Drinks/Week oz/Week Comments No 0 Standard drinks or equivalent 0.0 Estimated Date of Delivery Comments Yes 02/09/2020 Based on Ultrasound, outside usg at [facility] Sex Assigned at Date Recorded Not [...] OB Satellites Lawrence Richards, WHCNP [address] [place], [place] [address] [phone] 02/06/2020 Hospital Encounter Obstetrics AdSarika ken MD [address] [place] [address] [address]. [address] [place], [place] [address] 15-1500 Health Maintenance Due Date [...] Address T ype Group Dates ENTRUST ENTRUST [id number] 2019-Pres PPO ent [facility] xxxxxxxxx 2019-Pres P[address]O. BOX Medic aid HEALTH CHOICE - HEALTH CHOICE ent [id number] 1 MANAGED MEDICAID [place], [place] MED[place] [phone] documented as of this encounter
--- OUTSIDE RECORDS SUMMARY | 2020-02-12 21:57 | XMS REPORT | Summary of Care ---
:1999 Author Organization [facility] Address [address] [place] [address] Care Team Providers Name Role Phone Lizzie Richards TAZ Primary Care Provider [phone] Reason for Visit Reason Comments Care Encounter Details Date Type Department Care Team Description 01/05/2020 Routine [facility]- Susie, Faye vision of high risk , antepartum (Primary Dx); Visit THUAN Saldaña Susceptible to varicella (non-immune), c urrently ; [address] [place] [address] Obesity affecting in third trimester; [facility] Anemia of mother in , antepartu [address] [facility] [phone] [place] [address] Allergies No Known Allergiesdocumented as of this encounter (statuses as of 01/05/2020) Medications Medication Sig Dispensed Refills Start Date [...] as of this encounter (statuses as of 01/05/2020) Active Problems Problem Noted Date [place] Hick's contraction 12/04/2019 Anemia of mother in , antepartum 11/08/2019 Leukorrhea 10/09/2019 Obesity (BMI 30-39.9) 09/09/2019 Diarrhea during 08/14/2019 Susceptible to varicella (non-immune), currently pregn ant 06/06/2019 Overview: Address pp Supervision of high-risk 06/05/2019 Obesity affecting 06/05/2019 Tachycardia, unspecified 06/05/2019 Overview: Per patient report Estimated Date of Delivery Comments Yes 02/09/2020 Based on Ultrasound, outside usg at [facility] documented as of this encounter (statuses as of 01/05/2020) Immunizations Name Administration Dates Next Due Tdap 11/21/2019, 03/13/2013 documented as of this encounter Social History Tobacco Use Types Packs/Day Years Used Date Never Smoker Smokeless Tobacco: Never Used Alcohol Use Drinks/Week oz/Week Comments No 0 Standard drinks or equivalent 0.0 Estimated Date of Delivery Comments Yes 02/09/2020 Based on Ultrasound, outside usg at [facility] Sex Assigned at Date Recorded Not on file Job Start Date Occupation Industry Not on file Not on file Not on file Travel History Travel Start Travel End No recent travel history available. COVID-19 Exposure Response Date Recorded In the last month, have you been in contact with No / Unsure 01/05/2020 2:19 PM CDT someone who was confirmed or suspected to have Coronavirus / COVID-19? documented as of this encounter Last Filed Vital Signs Vital Sign Reading Time Taken Comments Blood Pressure 137/75 01/05/2020 2:20 PM CDT Pulse 91 01/05/2020 2:20 PM CDT Temperature 36.3 C (97.3 F) 01/05/2020 2:20 PM CDT Respiratory Rate 16 01/05/2020 2:20 PM CDT Oxygen Saturation - - Inhaled Oxygen Concentration - - Weight 104.3 kg (230 lb) 01/05/2020 2:20 PM CDT Height 167.6 cm (5' 6") 01/05/2020 2:20 PM CDT Body Mass Index 37.12 01/05/2020 2:20 PM CDT documented in this encounter Progress Notes Lizzie Richards, WHCNP - 01/05/2020 2:15 PM CDT Chief complaint: Chief Complaint Patient presents with Care HPI CC: Follow Up Visit Urvashi Molina is a 19 year old, , Black or female. Patient's last menstrual periodwas 04/19/2019 (approximate). She is 35w0d with an intrauterine . Her estimated date [...] 10/2018 Pt hospitalized for 1 week at [facility] Vision problems wears glasses Family History Problem [...] file Gets together: Not on file Attends denominational service: Not on file Active member of [...] control/protection: None Comment: Last intercourse: 06/04/2019 Labs Labs are pending. and Routine Visit on [...] BLD 10/09/2019 . Radiology No new radiology. Allergies Urvashi has [...] Negative. Psychiatric/Behavioral: Negative. Endocrine: Endocrine negative BP 137/75 (BP Location: Right arm, Patient Position: Sitting, BP CUFF SIZE: Adult Medium) | Pulse 91 | Temp 36.3 C (97.3 F) (Oral) | Resp 16 | Ht 5' 6" (1.676 m) | Wt 230 lb (104.3 kg) | LMP 04/19/2019 (Approximate) | BMI 37.12 kg/m Pregravid BMI: 32.3 Physical Exam PHYSICAL: General Exam: Neurological: Normal Abdomen: Normal gravid Extremities: Normal Pelvic Exam: Uterus: 36 Weeks Assessment/Plan Return to clinic in 1 weeks. Denies zika virus risk, signs and symptoms such as fever,rash,joint pain, conjunctivitis (red eyes),muscle pain, headaches; outside [place] travel to areas affected by zika, and FOB exposure to zika. Educated on use of mosquito repellent. Supervision of high risk , antepartum (primary encounter diagnosis) Comment: routine Plan: POCT URINALYSIS W SPECIFIC GRAVITY Susceptible to varicella (non-immune), currently Comment: no mgmt today Plan: address pp Obesity affecting in third trimester Comment: see bmi Plan: BMI discussed, appropriate weight gain, sensible diet, and exercise, increased fiber and waterintake and protein low in fat. Encouraged exercise for 30 min everyday; begin regimen with caution to prevent injury. Encouraged to decrease BMI to <25. Anemia of mother in , antepartum Comment: continue iron, PNV and iron-rich foods Plan: cbc at next visit This visit did not involve counseling and coordination that comprised more than 50% of the visit time. THUAN Beard 01/05/2020 2:53 PM documented in this encounter Plan of Treatment Date Type Specialty Care Team Description 02/06/2020 Hospital Encounter Obstetrics Sarika Fuller MD [address] [place] [address] Dr. [address] [place], [place] [address] Health Maintenance Due Date [...] 2-dose childhood series) (Pregna nt or ) Depression Screening 01/04/2021 01/05/2020 DTaP,Tdap,and Td Vaccines (3 11/20/2029 11/21/2019, - Td) 03/13/2013 MENINGOCOCCAL VACCINE Aged Out No longer eligible based on patient's age to complete this to pic PNEUMOCOCCAL 0-64 YEARS Aged Out No longe r eligible based COMBINED SERIES on patient's age to complete this to pic documented as of this encounter Procedures Procedure Name Priority Date/Time Associated Diagnosis Comme nts POCT URINALYSIS Routine 01/05/2020 2:21 PM Supervision of reta caruso Results for this CDT risk , procedure ar e in antepartum the results section. documented in this encounter Results POCT URINALYSIS W SPECIFIC GRAVITY (01/05/2020 2:21 PM CDT) Pathologist Sig nature POCT U SP GRAV . 1.005 - 1.025 mg/dl POCT PH U . 5 - 8 mg/dl POCT U LEUK EST . Negative - Negative POCT U NIT . Negative - Negative POCT U PROT trace Negative - Negative POCT U GLU neg Negative - Negative POCT U KETONE . [...] Supervision of other high-risk Obesity affecting in third tri mester Anemia of mother in , antepartu m Anemia, antepartum documented in this encounter Insurance Payer Benefit Plan / Subscriber ID Effective Phone Address T ype Group Dates ENTRUST ENTRUST [id number] 2019-Pres PPO ent [facility] xxxxxxxxx 2019-Pres P[address]O. BOX Medic aid HEALTH CHOICE - HEALTH CHOICE ent [id number] MANAGED MEDICAID [place], [place] MEDICAID [phone] documented as of this encounter
--- OUTSIDE RECORDS SUMMARY | 2020-02-12 21:57 | XMS REPORT | Summary of Care ---
:1999 Author Organization [facility] Address [address] [place] [address] Care Team Providers Name Role Phone Lizzie Richards [facility] Primary Care Provider [phone] Reason for Visit Reason Comments Care Encounter Details Date Type Department Care Team Description 01/11/2020 Routine [facility]- Levar Gonzalez, [facility] [address] [facility] [address] [place], [place] [address] Supervision of high risk , ante (Primary Dx); [facility] [place] [facility] Temp Susceptible to varicella (non-immune), c urrently ; [address] Obesity a ffecting in third trimester; Street Anemia of mother in pregnanc [place], [place] [address] Allergies No Known Allergiesdocumented as of this encounter (statuses as of 01/11/2020) Medications Medication Sig Dispensed Refills Start Date [...] as of this encounter (statuses as of 01/11/2020) Active Problems Problem Noted Date Sever[place] Hick's [...] as of this encounter (statuses as of 01/11/2020) Immunizations Name Administration Dates Next Due Tdap [...] been in contact with No / Unsure 01/11/2020 3:03 PM CDT someone who was confirmed or suspected to have Coronavirus / COVID-19? documented as of this encounter Last Filed Vital Signs Vital Sign Reading Time Taken Comments Blood Pressure 114/80 01/11/2020 3:04 PM CDT Pulse 88 01/11/2020 3:04 PM CDT Temperature 36.7 C (98.1 F) 01/11/2020 3:04 PM CDT Respiratory Rate 16 01/11/2020 3:04 PM CDT Oxygen Saturation - - Inhaled Oxygen Concentration - - Weight 102.7 kg (226 lb 7 oz) 01/11/2020 3:04 PM CDT Height 167.6 cm (5' 6") 01/11/2020 3:04 PM CDT Body Mass Index 36.55 01/11/2020 3:04 PM CDT documented in this encounter Progress Notes Joycelyn Gonzalez, WHTAZ - 01/11/2020 3:00 PM CDT Chief complaint: Chief Complaint Patient presents with Care HPI Uvrashi Molina is a 19 year old female is a 35w6d here for visit. Patient's last menstrualperiod was 04/19/2019 (approximate). Estimated Date of Delivery: 02/09/20 Today she denies any complaints or concerns. She is taking PNV. She reports good FM. She denies any ctx/cramping, VB, LOF, LA, visual disturbance, vaginal discharge or dysuria. She denies any foreign travel. She also denies any physical, sexual or emotional abuse. Histories OB History Para Term AB Living 1 SAB TAB Ectopic Multiple Live Births # Outcome Date GA Lbr Curry/2nd Weight Sex Delivery Anes PTL Lv 1 Current Past Medical History: Diagnosis Date Anemia of mother in , antepartum 11/08/2019 Tachycardia 10/2018 Pt hospitalized for 1 week at [facility] Vision problems wears glasses Family History Problem [...] file Gets together: Not on file Attends uatsdin service: Not on file Active member of [...] intercourse: 06/04/2019 Labs No new labs and I have reviewed the patient's labs. Radiology No new radiology. Allergies Urvashi has No Known Allergies. Medications Urvashi has a current medication list which includes the following prescription(s): ascorbic acid (vitamin c), ferrous sulfate, promethazine, multivitamin, and vit/iron fum/folic ac. Review of Systems Constitutional: Negative. HENT: Negative. Respiratory: Negative. Cardiovascular: Negative. Gastrointestinal: Negative. Genitourinary: Negative. Musculoskeletal: Negative. Psychiatric/Behavioral: Negative. BP 114/80 (BP Location: Right arm, Patient Position: Sitting, BP CUFF SIZE: Adult Medium) | Pulse 88 | Temp 36.7 C (98.1 F) (Oral) | Resp 16 | Ht 5' 6" (1.676 m) | Wt 226 lb 7 oz (102.7 kg) |LMP 04/19/2019 (Approximate) | BMI 36.55 kg/m Pregravid BMI: 32.3 Physical Exam Vitals reviewed. Constitutional: She is oriented to person, place, and time. She appears well- developed, well-nourished and well-groomed. Cardiovascular: Regular rate and rhythm. Pulmonary/Chest: Normal inspiratory effort. Neuro/Psychiatric: She has a normal mood and affect. She is oriented to person, place, and time. Assessment/Plan Supervision of high risk , antepartum Comment: Appears to be in stable condition at this time Plan: Routine follow up Return to clinic in 1 weeks. Medications as ordered. at 35w6d This visit did not involve counseling and coordination that comprised more than 50% of the visit time. documented in this encounter Plan of Treatment Date Type Specialty Care Team Description 01/19/2020 Routine Visit OB Satellites Lawrence Richards WHCNP [address] [place] [address] [phone] 01/25/2020 Routine Visit OB Satellites Provider, Edelemanuel Tem 02/06/2020 Hospital Encounter Obstetrics Adum, Sarika Jolly MD [address] [place] [address] [place] [address] 15-1500 Health Maintenance Due Date Last [...] Associated Diagnosis Comme nts POCT URINALYSIS Routine 01/11/2020 3:07 PM Supervision of reta caruso Results for this CDT risk , procedure ar e in antepartum the results section. documented in this encounter Results POCT URINALYSIS W SPECIFIC GRAVITY (01/11/2020 3:07 PM CDT) Pathologist Sig nature POCT U [...] other high-risk Obesity affecting in third [facility] Anemia of mother in , antepartu m Anemia, antepartum documented in this encounter Insurance Payer Benefit Plan / Subscriber ID Effective Phone Address T ype Group Dates ENTRUST ENTRUST [id number] 2019-Pres PPO ent [facility] xxxxxxxxx 2019-Pres [address]O. [address]OX Medic aid HEALTH CHOICE - HEALTH CHOICE ent [id number] 1 MANAGED MEDICAID [place], [place] [phone] documented as of this encounter
--- OUTSIDE RECORDS SUMMARY | 2020-02-12 21:57 | XMS REPORT | Summary of Care ---
:2000 Author Organization [facility] Address [address] [place] [address] Care Team Providers Name Role Phone Lizzie Richards TAZ Primary Care Provider Reason for Visit Reason Comments Care Encounter Details Date Type Department Care Team Description 01/19/2020 Routine [facility]- Susie, Faye vision of high risk , antepartum (Primary Dx); Visit THUAN Saldaña Obesity affecting in third tri mester; [address] Suscep tible to varicella (non-immune), currently ; Street [address] Elevated blood pressure reading without diagnosis of hypertension; [place], [place] ORTIZ A Anemia of mother in , antepartu m; [id number] [place], [place] Leukorrhea [phone] Allergies No Known Allergiesdocumented as of this encounter (statuses as of 01/19/2020) Medications Medication Sig Dispensed Refills Start Date [...] as of this encounter (statuses as of 01/19/2020) Active Problems Problem Noted Date Elevated blood pressure reading without diagnosis of h ypertension 01/19/2020 [place] contraction 12/04/2019 Anemia of mother in , antepartum 11/08/2019 Leukorrhea 10/09/2019 Obesity (BMI 30-39.9) 09/09/2019 Diarrhea during 08/14/2019 Susceptible to varicella (non-immune), currently pregn ant 06/06/2019 Overview: Address pp Supervision of high-risk 06/05/2019 Obesity affecting 06/05/2019 Tachycardia, unspecified 06/05/2019 Overview: Per patient report Estimated Date of Delivery Comments Yes 02/09/2020 Based on Ultrasound, outside [facility] at [facility] documented as of this encounter (statuses as of 01/19/2020) Immunizations Name Administration Dates Next Due Tdap 11/21/2019, 03/13/2013 documented as of this encounter Social History Tobacco Use Types Packs/Day Years Used Date Never Smoker Smokeless Tobacco: Never Used Alcohol Use Drinks/Week oz/Week Comments No 0 Standard drinks or equivalent 0.0 Estimated Date of Delivery Comments Yes 02/09/2020 Based on Ultrasound, outside [facility] at [facility] Sex Assigned at Date Recorded Not on file Job Start Date Occupation Industry Not on file Not on file Not on file Travel History Travel Start Travel End No recent travel history available. COVID-19 Exposure Response Date Recorded In the last month, have you been in contact with No / Unsure 01/19/2020 4:10 PM CDT someone who was confirmed or suspected to have Coronavirus / COVID-19? documented as of this encounter Last Filed Vital Signs Vital Sign Reading Time Taken Comments Blood Pressure 138/69 01/19/2020 4:11 PM CDT Pulse 95 01/19/2020 4:10 PM CDT Temperature 36.4 C (97.6 F) 01/19/2020 4:10 PM CDT Respiratory Rate 16 01/19/2020 4:10 PM CDT Oxygen Saturation - - Inhaled Oxygen Concentration - - Weight 103.2 kg (227 lb 8 oz) 01/19/2020 4:10 PM CDT Height 167.6 cm (5' 6") 01/19/2020 4:10 PM CDT Body Mass Index 36.72 01/19/2020 4:10 PM CDT documented in this encounter Progress Notes Lizzie Richards, WHCNP - 01/19/2020 4:00 PM CDT Chief complaint: Chief Complaint Patient presents with Care HPI CC: Follow Up Visit Urvashi Molina is a 19 year old, , Black or female. Patient's last menstrual periodwas 04/19/2019 (approximate). She is 37w0d with an intrauterine . Her estimated date of delivery is 02/09/2020, by Ultrasound. She complains today of: Leaking fluid per vagina. She reports leaking of clear, malodorous fluid per vagina estimated to beabout scant cc and uses 0 pads per day. Leaking of fluid per vagina has been occurring for 1 week(s),off and on Associated symptom(s) include pelvic pain. Symptoms are worse with none.. She reports +FM and denies contractions, LOF and bleeding today. Histories OB History Para Term AB Living 1 SAB TAB Ectopic Multiple Live Births # Outcome Date GA Lbr Curry/2nd Weight Sex Delivery Anes PTL Lv 1 Current Past Medical History: Diagnosis Date Anemia of mother in , antepartum 11/08/2019 Tachycardia 10/2018 Pt hospitalized for 1 week at [facility] Vision problems wears glasses Family History [...] file Gets together: Not on file Attends sabianist service: Not on file Active member of [...] No new labs and Routine Visit on 01/11/2020 Component Date Value POCT U SP GRAV 01/11/2020 . POCT PH U 01/11/2020 . POCT U LEUK EST 01/11/2020 . POCT U NIT 01/11/2020 . POCT U PROT 01/11/2020 Trace POCT U GLU 01/11/2020 Neg POCT U KETONE 01/11/2020 . POCT U UROBILI 01/11/2020 . POCT U BILI 01/11/2020 . POCT U BLD 01/11/2020 . Routine Visit on 01/05/2020 Component Date Value POCT U SP GRAV 01/05/2020 . POCT PH U 01/05/2020 . POCT U LEUK EST 01/05/2020 . POCT U NIT 01/05/2020 . POCT U PROT 01/05/2020 trace POCT U GLU 01/05/2020 neg POCT U KETONE 01/05/2020 . POCT U UROBILI 01/05/2020 . POCT U BILI 01/05/2020 . POCT U BLD 01/05/2020 . Routine Visit on 11/21/2019 Component Date Value [...] x10^3 11/07/2019 0.09 BASO x10^3 11/07/2019 0.04 Radiology No new radiology. Allergies Urvashi has [...] Negative. Psychiatric/Behavioral: Negative. Endocrine: Endocrine negative BP 138/69 (BP Location: Right arm, Patient Position: Sitting, BP CUFF SIZE: Adult Medium) | Pulse 95 | Temp 36.4 C (97.6 F) (Oral) | Resp 16 | Ht 5' 6" (1.676 m) | Wt 227 lb 8 oz (103.2 kg) |LMP 04/19/2019 (Approximate) | BMI 36.72 kg/m Pregravid BMI: 32.3 Physical Exam Vagina:No lesion inspected. Normal estrogen effect. Normal support. No abnormal vaginal discharge found. Negative Nitrazine paper test today Cervix: No lesion. No tenderness and no discharge present. PHYSICAL: General Exam: Neurological: Normal Abdomen: Normal gravid Extremities: Normal Pelvic Exam: Uterus: 37 Weeks Assessment/Plan Return to clinic in 1 week for pnv Report called and given to Monse PORTILLO Denies zika virus risk, signs and symptoms such as fever,rash,joint pain, conjunctivitis (red eyes),muscle pain, headaches; outside [place] travel to areas affected by zika, and FOB exposure to zika. Educated on use of mosquito repellent. Supervision of high risk , antepartum (primary encounter diagnosis) Comment: routine Plan: CBC WITH DIFF, GROUP B STREPTOCOCCUS BY PCR, GC & CHLAMYDIA AMPLIFIED ASSAY, CBC WITH DIFFERENTIAL, POCT URINALYSIS W SPECIFIC GRAVITY Obesity affecting in third trimester Comment: see bmi Plan: BMI discussed, appropriate weight gain, sensible diet, and exercise, increased fiber and waterintake and protein low in fat. Encouraged exercise for 30 min everyday; begin regimen with caution to prevent injury. Encouraged to decrease BMI to <25. Susceptible to varicella (non-immune), currently Comment: no mgmt today Plan: address pp Elevated blood pressure reading without diagnosis of hypertension Comment: second bp wnl, reporting headaches unrelieved with tyelonol, and occasional visual floatersfor the past 1 week Plan:to L&D for further evaluation Anemia of mother in , antepartum Comment: monitor Plan: continue iron, PNV and iron-rich foods Leukorrhea Comment: reports Plan: comfort measures discussed This visit did not involve counseling and coordination that comprised more than 50% of the visit time. THUAN Beard 01/19/2020 4:33 PM documented in this encounter Plan of Treatment Date Type Specialty Care Team Description 01/25/2020 Routine Visit OB Satellites Provider, [facility] hp Temp 02/06/2020 Hospital Encounter Obstetrics Adum, Sarika Jolly MD [address] [place] [address] Dr. [place] [phone] Name Type Priority Associated Diagnoses Date/Ti me CBC WITH DIFF LAB Routine Supervision of high risk 3:57 PM , antepartum CDT GROUP B STREPTOCOCCUS BY LAB Routine Supervision of h igh risk 01/19/2020 3:56 PM PCR , antepartum CDT GC & CHLAMYDIA AMPLIFIED LAB Routine Supervision of h igh risk 01/19/2020 3:57 PM ASSAY , antepartum CDT CBC WITH DIFFERENTIAL LAB Routine Supervision of high risk 01/19/2020 3:57 PM , antepartum CDT Health Maintenance Due Date Last Done Comments [...] series) (Pregna nt or ) Depression Screening 01/18/2021 01/19/2020 DTaP,Tdap,and Td Vaccines (3 11/20/2029 11/21/2019, - Td) 03/13/2013 MENINGOCOCCAL VACCINE Aged Out No longer eligible based on patient's age to complete this to pic PNEUMOCOCCAL 0-64 YEARS Aged Out No longe r eligible based COMBINED SERIES on patient's age to complete this to pic documented as of this encounter Procedures Procedure Name Priority Date/Time Associated Diagnosis Comme nts POCT URINALYSIS Routine 01/19/2020 4:11 PM Supervision of reta caruso Results for this CDT risk , procedure ar e in antepartum the results section. documented in this encounter Results POCT URINALYSIS W SPECIFIC GRAVITY (01/19/2020 4:11 PM CDT) Pathologist Sig nature POCT U SP GRAV . 1.005 - 1.025 mg/dl POCT PH U 5 5 - 8 mg/dl POCT U LEUK EST trace Negative - Negative POCT U NIT neg Negative - Negative POCT U PROT 2+ Negative - Negative POCT U GLU neg Negative - Negative POCT U KETONE neg Negative - Negative POCT U UROBILI . 0.2 - 1 mg/dl POCT U BILI . Negative - Negative POCT U BLD neg Negative - Negative POCT U COLOR POCT U APPEAR Specimen Urine - URINE, CLEAN CATCH documented in this encounter Visit Diagnoses Diagnosis Supervision of high risk , ante - Primary Obesity affecting in third tri mester Susceptible to varicella (non-immune), c urrently Supervision of other high-risk Elevated blood pressure reading without diagnosis of hypertension Anemia of mother in , antepartu m Anemia, antepartum Leukorrhea Leukorrhea, not specified as infective documented in this encounter Insurance Payer Benefit Plan / Subscriber ID Effective Phone Address T ype Group Dates ENTRUST ENTRUST [id number] 2019-Pres PPO ent [facility] xxxxxxxxx 2019-Pres [address] Medic aid HEALTH CHOICE - HEALTH CHOICE ent [id number] MANAGED MEDICAID [place], [place] [phone] documented as of this encounter
--- OUTSIDE RECORDS SUMMARY | 2020-02-12 21:58 | XMS REPORT | Summary of Care ---
:1999 Author Organization [facility] - Health Address [address] [place] [address] Care Team Providers Name Role Phone Lizzie Richards [facility] Primary Care Provider [phone] Encounter Details Date Type Department Care Team Description 01/19/2020 Orders Only [facility] Doctor Unassigned, No [address] [facility] [place] [address] [address] [place] [address] Allergies No Known Allergiesdocumented as of this encounter (statuses as of 01/30/2020) Medications Medication Sig Dispensed Refills Start Date End Date Status multivitamin Take 1 tablet 90 tablet 3 06/05/2019 Active ( VITAMIN) by mouth daily. tabletIndications: Supervision of high risk , antepartum ferrous sulfate 325 mg Take 1 tablet 60 tablet 3 11/08/2019 Active (65 mg iron) by mouth 2 tabletIndications: (two) times Anemia of mother in daily. , antepartum ascorbic acid, vitamin Take 1 tablet 90 tablet 2 11/08/2019 Active C, 500 mg by mouth 3 tabletIndications: (three) times Anemia of mother in daily. , antepartum acetaminophen 325 mg Take 2 tablets 30 tablet 1 01/22/2020 Active tabletIndications: by mouth every (spontaneous vaginal 6 (six) hours delivery) as needed for Pain (scale 1-3). docusate calcium 240 Take 1 capsule 30 capsule 1 01/22/2020 Active mg capsuleIndications: by mouth once (spontaneous daily as needed vaginal delivery) for Constipation. ibuprofen 600 mg Take 1 tablet 30 tablet 1 01/22/2020 Active tabletIndications: by mouth every (spontaneous vaginal 6 (six) hours delivery) as needed for Pain (scale 1-3) or Pain (scale 4-6). vitamin w/FA Take 1 tablet 30 tablet 1 01/22/2020 Active tabletIndications: by mouth daily. (spontaneous vaginal delivery) vitamin w/FA Take 1 tablet 100 tablet 3 01/22/2020 Active tabletIndications: by mouth daily. (spontaneous vaginal delivery) docusate calcium 240 Take 1 capsule 60 capsule 1 01/22/2020 Active mg capsuleIndications: by mouth once (spontaneous daily as needed vaginal delivery) for Constipation. ferrous sulfate 325 mg Take 1 tablet 60 tablet 2 01/22/2020 Active (65 mg iron) by mouth 2 tabletIndications: (two) times (spontaneous vaginal daily. delivery) ibuprofen 600 mg Take 1 tablet 60 tablet 1 01/22/2020 Active tabletIndications: by mouth every (spontaneous vaginal 6 (six) hours delivery) as needed (Pain). Take with food or milk. documented as of this encounter (statuses as of 01/30/2020) Active Problems Problem Noted Date Single liveborn 01/22/2020 (spontaneous vaginal delivery) 01/22/2020 Elevated blood pressure reading without diagnosis of h ypertension 01/19/2020 37 weeks gestation of 01/19/2020 [place] contraction 12/04/2019 Anemia of mother in , antepartum 11/08/2019 Leukorrhea 10/09/2019 Obesity (BMI 30-39.9) 09/09/2019 Diarrhea during 08/14/2019 Susceptible to varicella (non-immune), currently pregn ant 06/06/2019 Overview: Address pp Supervision of high-risk 06/05/2019 Obesity affecting 06/05/2019 Tachycardia, unspecified 06/05/2019 Overview: Per patient report Comments Yes documented as of this encounter (statuses as of 01/30/2020) Immunizations Name Administration Dates Next Due TDAP 11/21/2019, 03/13/2013 documented as of this encounter Social History Tobacco Use Types Packs/Day Years Used Date Never Smoker Smokeless Tobacco: Never Used Alcohol Use Drinks/Week oz/Week Comments No 0 Standard drinks or equivalent 0.0 Comments Yes Sex Assigned at Date Recorded Not on [...] Treatment Date Type Specialty Care Team Description 02/13/2020 Routine Visit OB Satellites Lawrence Richards, CNP [address] [place], [place] [address] [phone] Health Maintenance Due Date Last Done Comments WELL CARE VISIT: 07-2903/08/2020 2019 YEARS (yearly) HPV VACCINES (1 - Female 05/26/2020 Postpon ed from 2-dose series) 2010 (Preg nant or ) MENINGOCOCCAL B VACCINES (1 06/04/2020 Post poned from of 2 - Risk Bexsero 2-dose 03/08 ( or series) ) INFLUENZA VACCINE (Season 06/05/2020 Postpo dinora from Ended) 04/09/2020 (Refu sed) VARICELLA VACCINES (1 of 2 06/05/2020 Postp oned from - 2-dose childhood series) 03/08 ( or ) CHLAMYDIA SCREENING 01/18/2021 01/19/2020, 06/05/2019, 06/05/2019, Additional history exists Depression Screening 01/18/2021 01/19/2020 DTaP,Tdap,and Td Vaccines 11/20/2029 11/21/2019, 03/13/2013 (3 - Td) MENINGOCOCCAL VACCINE Aged Out No longer eligible based on patient 's age to complete this topic PNEUMOCOCCAL 0-64 YEARS Aged Out No longe r eligible COMBINED SERIES based on patient 's age to complete this topic documented as of this encounter Procedures Procedure Name Priority Date/Time Associated Diagnosis Comme nts HOSPITAL ADMISSION Routine 01/19/2020 12:01 AM CDT documented in this encounter Results Not on filedocumented in this encounter Insurance Payer Benefit Plan / Subscriber ID Effective Phone Address T ype Group Dates ENTRUST ENTRUST [id number] 2019-Pres PPO ent [facility] xxxxxxxxx 2019-Pres [address] Medic aid HEALTH CHOICE - HEALTH CHOICE ent [id number] MANAGED MEDICAID [place], [place] [phone] documented as of this encounter
--- OUTSIDE RECORDS SUMMARY | 2020-02-12 21:58 | XMS REPORT | Summary of Care ---
:2000 Author Organization [facility] - Health Address [address] [place] [id number] Care Team Providers Name Role Phone Lizzie Richards [facility] Primary Care Provider Reason for Referral (Routine) Status Reason Specialty Diagnoses / Referred By Referred To Procedures Contact Contact New Request Diagnoses (spontaneous vaginal delivery) Joi Gonzalez CNM Procedures DISCHARGE FOLLOW-UP: [facility] [address] [address] Reason for Visit Auth/Cert Status Reason Specialty Diagnoses / Procedures Referred By C ontact Referred To Contact Obstetrics Diagnoses 24 WKS PREG,VOMITING/NAUSEA CAN'T EAT [facility] Labor And Delivery [address] [place], [place] [address] Phone: Fax: Encounter Details Date Type Department Care Team Description 01/19/2020 - Hospital Mother Baby Unit Rebecca Hoff (spont aneous 01/22/2020 Encounter (J7C) MD Yancy vaginal delivery) [address] [place] [address]. [place] [phone] Allergies No Known Allergiesdocumented as of this encounter (statuses as of 01/22/2020) Medications Medication Sig Dispensed Refills Start Date End Date Status Take 1 tablet 90 tablet 3 06/05/2019 Activ e multivitamin by mouth ( VITAMIN) daily. tabletIndications: Supervision of high risk , antepartum acetaminophen 325 Take 2 tablets 30 tablet 1 01/22/2020 Active mg by mouth every 1 tabletIndications: 6 (six) hours (spontaneous as needed for vaginal delivery) Pain (scale 1-3). docusate calcium Take 1 capsule 30 capsule 1 01/22/2020 Active 240 mg by mouth once capsuleIndications: daily as (spontaneous needed for vaginal delivery) Constipation. ibuprofen 600 mg Take 1 tablet 30 tablet 1 01/22/2020 Active tabletIndications: by mouth every (spontaneous 6 (six) hours vaginal delivery) as needed for Pain (scale 1-3) or Pain (scale 4-6). vitamin Take 1 tablet 30 tablet 1 01/22/2020 Active w/FA by mouth tabletIndications: daily. (spontaneous vaginal delivery) vitamin Take 1 tablet 100 tablet 3 01/22/2020 Active w/FA by mouth tabletIndications: daily. (spontaneous vaginal delivery) docusate calcium Take 1 capsule 60 capsule 1 01/22/2020 Active 240 mg by mouth once capsuleIndications: daily as (spontaneous needed for vaginal delivery) Constipation. ferrous sulfate 325 Take 1 tablet 60 tablet 2 01/22/2020 Active mg (65 mg iron) by mouth 2 tabletIndications: (two) times (spontaneous daily. vaginal delivery) ibuprofen 600 mg Take 1 tablet 60 tablet 1 01/22/2020 Active tabletIndications: by mouth every (spontaneous 6 (six) hours vaginal delivery) as needed (Pain). Take with food or milk. vit/iron Take by 0 Di scontinued fum/folic ac mouth. 0 ( 1 + 1 ORAL) proMETHazine 25 mg Take 1 tablet 30 tablet 0 06/12/2019 Discontinued tabletIndications: by mouth every 0 Nausea/vomiting in 6 (six) hours as needed for Nausea and Vomiting (N/V). documented as of this encounter (statuses as of 01/22/2020) Active Problems Problem Noted Date Single liveborn 01/22/2020 (spontaneous vaginal delivery) 01/22/2020 Elevated blood pressure reading without diagnosis of h ypertension 01/19/2020 37 weeks gestation of 01/19/2020 Severino Hick's contraction 12/04/2019 Anemia of mother in , antepartum 11/08/2019 Leukorrhea 10/09/2019 Obesity (BMI 30-39.9) 09/09/2019 Diarrhea during 08/14/2019 Susceptible to varicella (non-immune), currently pregn ant 06/06/2019 Overview: Address pp Supervision of high-risk 06/05/2019 Obesity affecting 06/05/2019 Tachycardia, unspecified 06/05/2019 Overview: Per patient report Comments Yes documented as of this encounter (statuses as of 01/22/2020) Immunizations Name Administration Dates Next Due Tdap [...] Sign Reading Time Taken Comments Blood Pressure 106/63 01/22/2020 9:34 AM CDT Pulse 85 01/22/2020 9:34 AM CDT Temperature 36.7 C (98 F) 01/22/2020 9:34 AM CDT Respiratory Rate 17 01/22/2020 9:34 AM CDT Oxygen Saturation 98% 01/22/2020 9:34 AM CDT Inhaled Oxygen Concentration - - Weight 103.9 kg (229 lb) 01/19/2020 8:00 PM CDT Height - - Body Mass Index 36.96 01/19/2020 4:10 PM CDT documented in this encounter Discharge Summaries Joi Gonzalez CNM - 01/22/2020 7:28 AM CDT DISCHARGE SUMMARY - VAGINAL DELIVERY Date of Service: 01/22/2020 ADMIT DATE: 01/19/2020 DISCHARGE DATE: 01/22/2020 ATTENDING MD: Rebecca Hoff MD ATTENDING MD AT DISCHARGE: Alexys Wilkinson MDM/BUDGET MANAGER: Joi Gonzalez CNM PCP: Lizzie Richards REASON FOR ADMISSION Admit For: AOL For: care for FINAL DIAGNOSIS: (the reason, after study, for admitting the patient to the hospital) S/P Vaginal Delivery SECONDARY DIAGNOSIS: (any diagnosis that, on this admission, required clinical evaluation, therapeutic treatment, diagnostic procedures, extended hospital stay, or additional nursing care/monitoring): Anemia Principal Problem: (spontaneous vaginal delivery) (01/22/2020) POA: Unknown Assessment: TIUP delivered Plan: rt PP care Active Problems: Anemia of mother in , antepartum (11/08/2019) POA: Yes Assessment: HGB (g/dL) Date Value 01/22/2020 7.6 (L) Plan: iron tid with Vit C Single liveborn (01/22/2020) POA: No Assessment: nb in care of pedi Obesity affecting (06/05/2019) POA: Yes Assessment: Body mass index is 36.96 kg/m. Plan: healthier diet selection Susceptible to varicella (non-immune), currently (06/06/2019) POA: Yes Assessment: vaccine prior to d/c 37 weeks gestation of (01/19/2020) POA: Yes Assessment: TIUP delivered Plan: Rt pP care PRINCIPAL PROCEDURE: Cephalic vaginal delivery ADDITIONAL PROCEDURES: History reviewed. No pertinent surgical history. Internal monitoring SIGNIFICANT LAB/X-RAYS: HCT (%) Date Value 01/22/2020 24.4 (L) HGB (g/dL) Date Value 01/22/2020 7.6 (L) 01/19/2020 9.8 (L) Rubella: immune Varicella: not immune Type and Screen: A and RH postive S: Patient has no complaints. Patient denies sob, vertigo, headache, blurred vision, epigastric pain orpalpitations. Patient reports voiding without difficulty with good urine output. Patient reports ambulating unassisted without difficulty. Tolerating diet, passing flatus. Breast/bottlefeeding. Happy with new baby.No evidence of depression. Patient desires discharge home today. Contraception: Depo provera O: General: Alert and oriented. No apparent distress Affect appropriate Heart: regular rate and rhythm. Lungs: good inspiratory effort to inspections, lungs clear to auscultation bilaterally. Breast: soft Abdomen: soft non-tender. Fundus: firm at umbilicus Perineum: intact, no edema, hematoma or abcess Lochia: scant rubra, no clots Extremities: no edema bilaterally. No calf tenderness BP: (100-120)/(50-79) Temp: [36.1 C (97 F)-37.2 C (99 F)] Temp source: Oral (01/22 412) Pulse: [80-104] Resp: [17-18] SpO2: [97 %-99 %] Height: -- Weight: -- BMI (calculated): -- P: Routine instructions reviewed w/ pt. Precautions re: bleed/injury, depression, infection & DVT's reviewed. She was instructed to return to ER if Temp greater than 100.4F, headache unresolved with pain medications, visual disturbances including double orblurry vision, seeing spots, upper abdominal pain, or vaginal bleeding greater than 1 pad per hour. Pelvic rest 6 weeks, and no heavy lifting. DIET: Regular diet ACTIVITY: as tolerated, no strenuous activity and no heavy lifting DISCHARGE MEDICATIONS: Current Discharge Medication List STOP taking these medications ascorbic acid (vitamin C) (VITAMIN C) 500 mg Comments: Reason for Stopping: ferrous sulfate 325 mg Comments: Reason for Stopping: proMETHazine (PHENERGAN) 25 mg Comments: Reason for Stopping: multivitamin ( VITAMIN) 1 tablet Comments: Reason for Stopping: vit/iron fum/folic ac ( 1 + 1 ORAL) Comments: Reason for Stopping: WOUND CARE: .Encouraged appropriate pericare DISCHARGE: Discharged: Home CONDITION AT TIME OF DISCHARGE: Stable FOLLOW-UP APPOINTMENT: With Lalo ELLINGTON in 3 week(s) Joi Gonzalez CNM Associated attestation - Alexys Wilkinson MD - 01/22/2020 1:48 PM CDTS/P . Patient was evaluated by Joi Gonzalez CNM before discharge home. I personally participatedin the evaluation of the patient and agree with the plan as written. Please see Ms. Lisa' note for additional details.documented in this encounter Discharge Instructions Reyna Garcia RN - 01/22/2020Multidisciplinary Discharge Instructions (may include diet, dressing changes, activity limits, written materials given to patient: DIET: Eat a well balanced diet; drink 6-8 glasses of fluids daily; eat fruits and green, leafy vegetables. DAILY ACTIVITIES: 1. As much as you feel able to do. Rest when you are tired. 2. Limitations: Specify; No heavy lifting other than your baby for 4 weeks if you had surgery. TREATMENT AT HOME 1. Use a well-fitting bra to prevent breast engorgement 2. Resume intercourse as instructed by your physician. 3. Do not use douches or tampons for four weeks. 4. To help prevent urinary tract infection; after each urination and bowel movement, wipe and dry from front to back and change devonte pad. 5. Follow discharge instructions regarding baby care. 6. Follow family planning instructions. IMMEDIATE TREATMENT - Call Clinic or Your Physician 1. Increase in pain and tenderness of uterus. 2. Increased vaginal bleeding (bright red blood which soaks 2 pads in 1 hour or pass large clots). 3. Foul smelling vaginal discharge. 4. Burning in the tube that empties the urine from the bladder. 5. Painful breast engorgement or cracked nipples. 6. Pain, discharges, or gaping incision. 7. Temperature greater than 38.0C or 100.4F 8. Pain and tenderness of calf or thigh muscles. 9. No bowel movements in 4 days. For Problems or Questions Call: OB Clinic Family Planning [phone] or Emergency: Go to the closest emergency room or call 911 AttachmentsThe following attachments cannot be sent through Care Everywhere. Bathing Your Baby, Safety Tips (German)Bottle-feed, How to (German)Bottle- Feeding (German) Depression, Understanding (German)Your Milk, Expressing (German)Expressed Milk, Storing (German)documented in this encounter Progress Notes Julito Mcnamara MD - 01/20/2020 9:02 AM CDT Progress Note 01/20/2020 9:02 AM Subjective: Patient has no complaints Objective: Patient Vitals for the past 24 hrs: BP Temp Temp src Pulse Resp SpO2 Weight 01/20/20 0833 129/73 79 18 99 % 01/20/20 0800 136/81 72 18 99 % 01/20/20 0730 126/72 66 18 98 % 01/20/20 0700 136/81 36.4 C (97.5 F) Oral 68 18 99 % 01/20/20 0630 125/77 71 18 99 % 01/20/20 0600 125/59 76 19 99 % 01/20/20 0530 70 98 % 01/20/20 0500 (!) 125/99 36.4 C (97.6 F) Axillary 01/20/20 0458 82 100 % 01/20/20 0400 114/70 86 100 % 01/20/20 0330 113/52 80 01/20/20 0300 (!) 120/99 76 100 % 01/20/20 0230 (!) 115/91 71 100 % 01/20/20 0200 113/62 100 100 % 01/20/20 0130 98/68 01/20/20 0100 97/76 76 17 100 % 01/20/20 0030 126/68 76 100 % 01/20/20 0000 131/57 36.7 C (98.1 F) Axillary 77 18 100 % 01/19/20 2330 115/63 85 100 % 01/19/20 2300 108/67 90 100 % 01/19/20 2230 (!) 143/89 85 100 % 01/19/20 2200 127/80 36.7 C (98 F) Axillary 91 100 % 01/19/20 2145 103 100 % 01/19/20 2130 131/60 91 100 % 01/19/20 2100 119/55 99 18 100 % 01/19/20 2035 133/66 01/19/202017 102 100 % 01/19/201999 125/81 36.8 C (98.3 F) Oral 106 18 98 % 103.9 kg (229 lb) Physical Exam: General: patient alert and in no acute distress HEENT: symmetric, negative for masses Lungs: unlabored breathing Cardiology: peripheral pulses intact and regular Abdomen: soft, non-tender, non-distended, Gravid Extremities: no clubbing, cyanosis, or edema Neuro: patient moving all extremities, no facial droop : deferred Assessment/Plan: Urvashi Molina is a 19 year old at 37w0d by u(6) who presents with LA and vision changes. IOL - SVE closed/0/-3 - Plan: Santa bulb in place, will remove at 12 hours. GHTN - Rules in for GHTN due to mild-ranging BPs and negative tox labs 01/19/2020 21:17 HGB 9.8 (L) PLT x10^3 360 (H) CREATININE 0.37 (L) Protein/Creatinine Ratio Urine Less than sensitivity of analyzer ALTv 10 AST(SGOT) 19 LDH 476 COVID Screen - not detected Antepartum course reviewed - 1 h 95, sero neg, Ri, VZVni, A+/neg, GBS pending - H/H, plt: 10.2 / 33, 382 on 11/06 - [facility] Fetus - Presentation on admission: cephalic - posterior placenta - Ben 8 lb - FHT 130 baseline reactive and reassuring - Normal anatomy scan Julito Mcnamara MD (Michelle) PGY-2 Obstetrics and Gynecology Associated attestation - Veronica Chapin MD - 01/20/2020 9:49 AM CDT Agree with the intrapartum Steph Douglas DO - 01/20/2020 4:50 AM CDT R4 Progress Note Tox labs negative per below rules in for GHTN. 01/19/2020 21:17 HGB 9.8 (L) PLT x10^3 360 (H) CREATININE 0.37 (L) Protein/Creatinine Ratio Urine COMMENT ONLY ALTv 10 AST(SGOT) 19 LDH 476 . PROT U mg/dL <5 CREAT U mg/dL 341.6 Protein/Creatinine Ratio Urine Comment: Unable to calculate because, either urine total protein, urine creatinine, or both are lessthan the sensitivity of the analyzer. documented in this encounter Plan of Treatment Date Type Specialty Care Team Description 01/25/2020 Routine Visit OB Satellites Provider, [facility] hp Temp Health Maintenance Due Date Last Done Comments WELL CARE VISIT: 12-03/08/2020 2019 YEARS (yearly) HPV VACCINES (1 - [...] encounter Procedures Procedure Name Priority Date/Time Associated Comments Diagnosis CBC WITH DIFFERENTIAL Routine 01/22/2020 4:15 Re sults for this AM CDT procedure are i n the results section. CBC WITH DIFFERENTIAL Routine 01/22/2020 4:15 Re sults for this AM CDT procedure are i n the results section. VENOUS CORD GAS RANDELL 01/21/2020 4:12 Results for this AM CDT procedure are i n the results section. ARTERIAL CORD GAS RANDELL 01/21/2020 4:12 Result s for this AM CDT procedure are i n the results section. GAL[facility] ONLY - SYPHILIS RANDELL 01/19/2020 9:17 Res ults for this IGG/IGM PM CDT procedure are i n the results section. PROTEIN CREAT RATIO STAT 01/19/2020 9:17 Resu lts for this URINE RANDOM PM CDT procedure are i n the results section. CBC WITH DIFFERENTIAL STAT 01/19/2020 9:17 Re sults for this PM CDT procedure are i n the results section. HEPATITIS B SURFACE RANDELL 01/19/2020 9:17 Resu lts for this ANTIGEN PM CDT procedure are i n the results section. URINALYSIS STAT 01/19/2020 9:17 Results for this PM CDT procedure are i n the results section. CBC WITH DIFFERENTIAL STAT 01/19/2020 9:17 Re sults for this PM CDT procedure are i n the results section. URIC ACID STAT 01/19/2020 9:17 Results for this PM CDT procedure are i n the results section. LACTATE DEHYDROGENASE STAT 01/19/2020 9:17 Re sults for this PM CDT procedure are i n the results section. ALANINE AMINO STAT 01/19/2020 9:17 Results fo r this TRANSFERASE(SGPT PM CDT procedure a re in the results section. CREATININE STAT 01/19/2020 9:17 Results for this PM CDT procedure are i n the results section. SGOT (ASPARTATE AMINO STAT 01/19/2020 9:17 Re sults for this TRANSFER) PM CDT procedure are i n the results section. RHO (D) IMMUNE Routine 01/19/2020 9:01 Results f or this GLOBULIN PM CDT procedure are i n the results section. HB ABO GROUPING RANDELL 01/19/2020 9:01 Results for this PM CDT procedure are i n the results section. COVID-19 (ID NOW RAPID RANDELL 01/19/2020 7:33 R esults for this TESTING) PM CDT procedure are i n the results section. documented in this encounter Results CBC WITH DIFFERENTIAL (01/22/2020 4:15 AM CDT) Pathologist Sig nature WBC 14.87 (H) 4.30 - 11.10 [facility] 10*3/L SERVICES RBC 2.69 (L) 3.93 - 5.25 [facility] 10*6/L SERVICES HGB 7.6 (L) 11.6 - 15.0 [facility] g/dL SERVICES HCT 24.4 (L) 35.7 - 45.2 % [facility] MCV 90.7 80.6 - 95.5 fL [facility] MCH 28.3 25.9 - 32.8 pg [facility] MCHC 31.1 (L) 31.6 - 35.1 [facility] g/dL SERVICES RDW-SD 42.1 39.0 - 49.9 fL [facility] RDW-CV 13.1 12.0 - 15.5 % [facility] PLT 288 166 - 358 [facility] 10*3/L SERVICES MPV 11.0 9.5 - 12.9 fL [facility] NRBC/100 WBC 0.0 0.0 - 10.0 /100 [facility] WBCs SERVICES NRBC x10^3 <0.01 10*3/L [facility] GRAN MAT (NEUT) % 68.8 % [facility] IMM GRAN % 0.70 % [facility] LYMPH % 19.9 % [facility] MONO % 9.1 % [facility] EOS % 1.1 % [facility] BASO % 0.4 % [facility] GRAN MAT x10^3(ANC) 10.22 (H) 1.88 - 7.09 [facility] 10*3/uL SERVICES IMM GRAN x10^3 0.10 (H) 0.00 - 0.06 [facility] 10*3/uL SERVICES LYMPH x10^3 2.96 1.32 - 3.29 [facility] 10*3/uL SERVICES MONO x10^3 1.36 (H) 0.33 - 0.92 [facility] 10*3/uL SERVICES EOS x10^3 0.17 0.03 - 0.39 [facility] 10*3/uL SERVICES BASO x10^3 0.06 0.01 - 0.07 [facility] 10*3/uL SERVICES Specimen Blood - ARM, RIGHT Performing Organization Address City/State/Zipcode Phone Number [facility] CLIA: [id number], [address] [place] [address] [address] [facility] ARTERIAL CORD GAS (01/21/2020 4:12 AM CDT) Pathologist Sig nature BASE EXCESS, CORD -3.8 mEq/L [facility] AC PH, CORD (BEAKER) 7.30 7.18 - 7.38 [facility] PC02, CORD 48 32 - 66 mmHg [facility] PO2, CORD 12 10 - 30 mmHg [facility] BICARBONATE, CORD 23 17 - 27 mEq/L [facility] Specimen Blood - CORD Performing Organization Address City/State/Zipcode Phone Number [facility] CLIA: [id number], [address] [place] [address] [phone] [facility] VENOUS CORD GAS (01/21/2020 4:12 AM CDT) Pathologist Sig nature VENOUS BASE EXCESS, -3.3 mEq/L [facility] CORD SERVICES VENOUS PH, CORD 7.37 7.25 - 7.45 [facility] VENOUS PC02, CORD 38 27 - 49 mmHg [facility] VENOUS PO2, CORD 27 17 - 41 mmHg [facility] VENOUS BICARBONATE, 22 12 - 29 mEq/L [facility] CORD SERVICES Specimen Blood - CORD Performing Organization Address City/[facility]/Zipcode Phone Number [facility] CLIA: [id number], [address] [place] [address] [phone] [facility] CBC WITH DIFFERENTIAL (01/19/2020 9:17 PM CDT) Pathologist Sig nature WBC 16.17 (H) 4.30 - 11.10 [facility] 10*3/L SERVICES RBC 3.51 (L) 3.93 - 5.25 [facility] 10*6/L SERVICES HGB 9.8 (L) 11.6 - 15.0 [facility] g/dL SERVICES HCT 31.4 (L) 35.7 - 45.2 % [facility] MCV 89.5 80.6 - 95.5 fL [facility] MCH 27.9 25.9 - 32.8 pg [facility] MCHC 31.2 (L) 31.6 - 35.1 [facility] g/dL SERVICES RDW-SD 41.2 39.0 - 49.9 fL [facility] RDW-CV 12.8 12.0 - 15.5 % [facility] PLT 360 (H) 166 - 358 [facility] 10*3/L SERVICES MPV 11.6 9.5 - 12.9 fL [facility] NRBC/100 WBC 0.0 0.0 - 10.0 /100 [facility] WBCs SERVICES NRBC x10^3 <0.01 10*3/L [facility] GRAN MAT (NEUT) % 77.8 % [facility] IMM GRAN % 0.40 % [facility] LYMPH % 12.9 % [facility] MONO % 8.4 % [facility] EOS % 0.4 % [facility] BASO % 0.1 % [facility] GRAN MAT x10^3(ANC) 12.58 (H) 1.88 - 7.09 [facility] 10*3/uL SERVICES IMM GRAN x10^3 0.07 (H) 0.00 - 0.06 [facility] 10*3/uL SERVICES LYMPH x10^3 2.08 1.32 - 3.29 [facility] 10*3/uL SERVICES MONO x10^3 1.36 (H) 0.33 - 0.92 [facility] 10*3/uL SERVICES EOS x10^3 0.06 0.03 - 0.39 [facility] 10*3/uL SERVICES BASO x10^3 <0.03 0.01 - 0.07 [facility] 10*3/uL SERVICES Specimen Blood - WRIST, LEFT Performing Organization Address [facility] Phone Number [facility] CLIA: [id number], [address] [place] [address] [address] [facility] GALV ONLY - SYPHILIS IGG/IGM (01/19/2020 9:17 PM CDT) Pathologist [facility] Syphilis IgG/IgM Non-reactive Non-reactive [facility] Specimen Blood - VENOUS Narrative Performed At [facility] Non-reactive - No serologic evidence of T. pallidum infection. Cannot exclude incubating or early syphilis . Submit a second specimen in 2-4 weeks if syphilis is clinically suspected. Equivocal - Further testing to follow. Reactive - Further testing to follow. Performing Organization Address City/[facility] Corporationcode Phone Number [facility] CLIA: [id number], [address] [place] [address] [address] [facility] Hepatitis B Surface Antigen (01/19/2020 9:17 PM CDT) Pathologist [facility] HBsAg Negative Negative [facility] HBsAg 0.06 [facility] Semi-Quantitative SERVICES Specimen Blood - WRIST, LEFT Performing Organization Address City/[facility]/Zipcode Phone Number [facility] CLIA: [id number], [address] [place] [address] [address] [facility] Urinalysis (01/19/2020 9:17 PM CDT) APPEARANCE Hazy (A) Clear [facility] COLOR Catrachita (A) Yellow [facility] PH 5.0 4.8 - 8.0 [facility] SP GRAVITY 1.034 (H) 1.003 - 1.030 [facility] GLU U QUAL Normal Normal [facility] BLOOD NegativeComment: Negative [facility] Interference from SERVICES ascorbic acid may cause false negative results. KETONES 5 mg/dL (A) Negative [facility] PROTEIN 100 mg/dL (A) Negative [facility] UROBILIN Normal Normal [facility] BILIRUBIN Negative Negative [facility] NITRITE Negative Negative [facility] LEUK KAREN Negative Negative [facility] RBC/HPF 1 0 - 3 HPF [facility] WBC/HPF 1 0 - 5 HPF [facility] BACTERIA Negative Negative [facility] MUCOUS Marked (A) Negative LPF [facility] SQ EPITH 11 (H) <=2 HPF [facility] ASCORBIC ACID 40 mg/dL [facility] Specimen Urine - URINE, CLEAN CATCH Performing Organization Address [facility] Phone Number [facility] CLIA: [id number], [address] [place] [address] [address] [facility] Lactate Dehydrogenase (01/19/2020 9:17 PM CDT) Pathologist Sig nature LDH 476 300 - 600 U/L [facility] Specimen Blood - WRIST, LEFT Performing Organization Address [facility] Phone Number [facility] CLIA: [id number], [address] [place] [address] [facility] Alanine Amino Transferase (SGPT) (01/19/2020 9:17 PM CDT) Pathologist Sig nature ALTv 10 5 - 35 U/L [facility] Specimen Blood - WRIST, LEFT Performing Organization Address [facility] Phone Number [facility] CLIA: [id number], [address] [place] [address] [facility] SGOT (Asparate Amino Transfer) (01/19/2020 9:17 PM CDT) Pathologist Sig nature AST(SGOT) 19 13 - 40 U/L [facility] Specimen Blood - WRIST, LEFT Performing Organization Address City/State/Zipcode Phone Number [facility] CLIA: [id number], [address] [place], [place] [address] [facility] Serum Creatinine (01/19/2020 9:17 PM CDT) CREATININE 0.37 (L) 0.50 - 1.04 [facility] mg/dL SERVICES eGFR Calculation 222.7 mL/min/1.73m2 [facility] (Non- SERVICES Georgian) eGFR Calculation 269.9 mL/min/1.73m2 [facility] () SERVICES Specimen Blood - WRIST, LEFT Narrative Performed At Association of Glomerular Filtration Rate (GFR) and St aging [facility] of Kidney Disease* + + +------- ------ + | GFR (mL/min/1.73 m2) | With Kidney Damage | Wi thout Kidney Damage + + +------- ------ + | >90 | Stage one | Normal + + +------- ------ + | 60-89 | Stage two | Decreased GFR + + +------- ------ + | 30-59 | Stage three | Stage three + + +------- ------ + | 15-29 | Stage four | Stage four + + +------- ------ + | <15 (or dialysis) | Stage five | Stage five + + +------- ------ + *Each stage assumes the associated GFR level has been in effect for at least three months. Stages 1 to 5, wit h or without kidney disease, indicate chronic kidney disease. Notes: Determination of stages one and two (with eGFR >59mL/min/1.73 m2) requires estimation of kidney damag e for at least three months as defined by structural or func tional abnormalities of the kidney, manifested by either: Pathological abnormalities or Markers of kidney damage (including abnormalities in the composition of the blo od or urine or abnormalities in imaging tests) . Performing Organization Address City/State/Zipcode Phone Number [facility] CLIA: [id number], [address] [place], [place] [address] [facility] Protein CREAT Ratio Urine Random (01/19/2020 9:17 PM CDT) T. PROT U <5 mg/dL [facility] CREAT U 341.6 mg/dL [facility] Protein/Creatinine Comment: Unable to [facility] Ratio Urine calculate because, SERVICES either urine total protein, urine creatinine, or both are less than the sensitivity of the analyzer. Specimen Urine - URINE, CLEAN CATCH Performing Organization Address City/[facility]/Zipcode Phone Number [facility] CLIA: [id number], [address] [place] [phone] [facility] Uric Acid Serum (01/19/2020 9:17 PM CDT) Pathologist Sig nature URIC ACID 4.1 2.9 - 6.0 mg/dL [facility] Specimen Blood - WRIST, LEFT Performing Organization Address [facility]/Zipcode Phone Number [facility] CLIA: [id number], [address] [place] [address] [facility] RHO (D) IMMUNE GLOBULIN (01/19/2020 9:01 PM CDT) Pathologist [facility] nature RHIG CANDIDATE? No- see comment LAB Comment: Patient is not a candidate for RhIg- Patient is Rh Pos itive. Performed at [facility] Services - [facility] Blood [place] [address] Toll Free: [phone] CLIA No. [id number] Specimen Blood - VENOUS Performing Organization Address [facility] Phone Number BLD LAB Type and Screen - ONCE RANDELL (01/19/2020 9:01 PM CDT) [facility] ABO & RH A POSITIVE LAB Comment: Performed at [facility] Services - [facility] Blood [place] [address] Toll Free: [phone] CLIA No. [id number] IAT Negative LAB Comment: Performed at [facility] Services - [facility] Blood [place] [address] Toll Free: [phone] CLIA No. [id number] Specimen Blood - VENOUS Performing Organization Address [facility] Phone Number BLD LAB COVID-19 (ID NOW RAPID TESTING) (01/19/2020 7:33 PM CDT) SARS-CoV-2 Rapid ID Not Detected Not Detected [facility] NOW SERVICES Specimen Swab - NASOPHARYNGEAL SWAB Narrative Performed At ID NOW COVID-19 Assay is an isothermal nucleic acid [facility] amplification test intended for the qualitative detect ion of nucleic acid from SARS-CoV-2 viral RNA in nasopharynge al (BUDGET MANAGER) specimens. It is used under Emergency Use Authori zation (EUA) by FDA. The limit of detection (LOD) of the assa y is 125 Genome Equivalents/mL. A positive result is indicative of the presence of SARS-CoV-2 RNA. Clinical correlation with patient hi story and other diagnostic information is necessary to deter mine patient infection status. A negative (Not Detected) result does not preclude SARS-CoV-2 infection. In patients with clinical sympto ms and other tests that are consistent with SARS-CoV-2 infect ion, negative results should be treated as presumptive nega tive and a new specimen should be tested with alternative P CR molecular test. Invalid: Please collect a new specimen for repeat rosalia ent testing if clinically indicated. Performing Organization Address City/State/Zipcode Phone Number [facility] CLIA: [id number], [address] [place] [address] [facility] documented in this encounter Visit Diagnoses Diagnosis (spontaneous vaginal delivery) - [facility] Normal delivery Obesity affecting Susceptible to varicella (non-immune), c urrently Supervision of other high-risk Anemia of mother in , antepartu m Anemia, antepartum 37 weeks gestation of state, incidental Single liveborn Outcome of delivery, single liveborn documented in this encounter Administered Medications Medication Order MAR Action Action Date Dose Rate Site acetaminophen (TYLENOL) tablet Given 01/22/2020 2:09 PM CDT 650 mg 650 mg 650 mg, Oral, Q6HPRN, Starting 01/21/20 at 0818, Until Discontinued, Routine, Pain (scale 1-3) ibuprofen (IBU) tablet 600 mg Given 01/22/2020 10:08 AM CDT 600 mg 600 mg, Oral, Q6HPRN, Starting 01/21/20 at 0818, Until Discontinued, Routine, Pain (scale 4-6) Given 01/21/2020 8:38 PM CDT 600 mg Given 01/21/2020 2:05 PM CDT 600 mg vitamin w/FA (PRENATABS RX) Given 01/22/2020 10:08 AM C DT 1 tablet tablet 1 tablet 1 tablet, Oral, DAILY, First dose on 01/21/20 at 0900, Until Discontinued, Routine Given 01/21/2020 10:07 AM CDT 1 tablet Medication Order MAR Action Action Date Dose Rate Site acetaminophen (TYLENOL) tablet Given 01/21/2020 7:42 AM CDT 650 mg 650 mg 650 mg, Oral, Q6HPRN, Starting 01/21/20 at 0417, Until Wed01/21/20 at 0818, Routine, Pain (scale 1-3), Pain (scale 4-6) butorphanol (STADOL) injection 1 mg Given 01/20/2020 5:01 AM CDT 1 mg 1 mg, IV Push, ONCE, 1 dose, 01/20/20 at 0500, Routine butorphanol (STADOL) injection 1 mg Given 01/20/2020 9:34 AM CDT 1 mg 1 mg, IV Push, ONCE, 1 dose, 01/20/20 at 0915, Routine butorphanol (STADOL) injection 1 mg Given 01/20/2020 2:19 PM CDT 1 mg 1 mg, IV Push, ONCE, 1 dose, 01/20/20 at 1400, Routine D5W-LR IV infusion 1,000 mL New Bag 01/20/2020 11:37 AM CDT 1,000 mL 125 mL/hr at 125 mL/hr, IV Infusion, CONTINUOUS, Starting Wed01/19/20 at 2045, Until Wed01/21/20 at 0818, Routine New Bag 01/20/2020 5:03 AM CDT 1,000 mL 125 mL/hr New Bag 01/19/2020 9:20 PM CDT 1,000 mL 125 mL/hr diphenhydrAMINE (BENADRYL) capsule 50 mg Given 01/21/2020 12:56 AM CDT 50 mg 50 mg, Oral, ONCE NOW, 1 dose, 01/21/20 at 0045, Routine lactated ringers IV infusion 500 New Bag 01/21/2020 7:43 AM C DT 500 mL 125 mL/hr mL at 999 mL/hr, 500 mL, IV Infusion, PRN - SEE INSTRUCTIONS, Starting Wed01/19/20 at 2034, Until Wed01/21/20 at 0818, Routine lactated ringers IV infusion 500 New Bag 01/20/2020 4:31 PM C DT 500 mL 999 mL/hr mL at 999 mL/hr, 500 mL, IV Infusion, ONCE, 1 dose, 01/20/20 at 1730, Routine LR 1000 mL + oxytocin Rate Change 01/21/2020 2:30 AM 8 katiana-unit s/min 24 mL/hr 20 units IV Solution CDT at 6-120 mL/hr, IV Infusion, TITRATE, Starting 01/20/20 at 1127, Until 01/21/20 at 0818, RANDELL Rate Change 01/21/2020 2:00 AM CDT 10 katiana-units/min 30 mL/hr Rate Change 01/21/2020 1:45 AM CDT 16 katiana-units/min 48 mL/hr ondansetron (ZOFRAN (PF)) injection 4 mg Given 01/20/2020 7:53 PM CDT 4 mg 4 mg, Slow IV Push, ONCE, 1 dose, 01/20/20 at 1945, Routine oxytocin (PITOCIN) injection 40 Units Given 01/21/2020 4:15 AM CDT 40 Units 40 Units, IV Piggyback, ONCE, 1 dose, 01/21/20 at 0430, Routine sodium citrate-citric acid (BICITRA) 500-334 Given 4:43 PM CDT 30 mL mg/5 mL solution 30 mL 30 mL, Oral, PRE-PROCEDURE ONCE, 1 dose, Starting 01/20/20 at 1627, Until 01/20/20 at 1643, Routine, Surgery/Procedure documented in this encounter Insurance Payer Benefit Plan / Subscriber ID Effective Phone Address [facility] xxxxxxxxx 2019-Pres [address] Medic aid HEALTH CHOICE - HEALTH CHOICE ent [id number] 1 MANAGED MEDICAID [place], [place] [phone] documented as of this encounter"
[2020-02-12 22:33] LABS: Absolute Lymphocytes (CBC) 2.9 K/uL (0.7-4.9); Basophils % 0.7 % (0-1.3); Hematocrit 34.9 % (36.0-45.0); Lymphocytes % 24.8 % (15.3-44.8); MPV 8.7 fL (7.6-11.3); RBC Red Blood Cell Count 4.16 M/uL (3.86-4.86)
[2020-02-12 22:44] LABS: ALT/SGPT 28 U/L (12-78); AST/SGOT 32 U/L (15-37); Albumin 3.7 g/dL (3.4-5.0); Alkaline Phosphatase 116 U/L (45-117); BUN Blood Urea Nitrogen 7 mg/dL (7-18); Bicarbonate 27 mmol/L (21-32); Bilirubin Direct 0.1 mg/dL (0-0.2); Bilirubin Total 0.4 mg/dL (0.2-1.0); Glucose Level 91 mg/dL (74-106); Lipase 165 U/L (73-393); Potassium 3.4 mmol/L (3.5-5.1); Protein, Total 8.1 g/dL (6.4-8.2); Sodium Level 140 mmol/L (136-145)
--- NOTE | 2020-02-12 23:14 | ER ---
Nurse's Notes [facility] Name: Urvashi Molina Age: 19 yrs Sex: Female : 2000 Arrival Date: 02/12/2020 Time: 21:57 Bed 19 Private MD: Diagnosis: Cholelithiasis Presentation: 02/11 21:58 Chief complaint: Patient states: RUQ pain, reports nausea as well, denies F/V/D at this sg time. Coronavirus screen: Proceed with normal triage. Ebola Screen: Patient negative for fever greater than or equal to 101.5 degrees Fahrenheit, and additional compatible Ebola Virus Disease symptoms Patient denies exposure to infectious person. Patient denies travel to an Ebola-affected area in the 21 days before illness onset. No symptoms or risks identified at this time. Initial Sepsis Screen: Does the patient meet any 2 criteria? No. Patient's initial sepsis screen is negative. Does the patient have a suspected source of infection? Yes: Acute abdominal pain. Risk Assessment: Do you want to hurt yourself or someone else? Patient reports no desire to harm self or others. Onset of symptoms was February 12, 2020. Care prior to arrival: None. Transition of care: patient was not received from another setting of care. 21:58 Method Of Arrival: Ambulatory sg 21:58 Acuity: DELVIS 3 sg Historical: - Allergies: 21:59 NKA; sg - PMHx: 21:59 Anxiety; high heart rate; sg - PSHx: 21:59 None; sg - Immunization history:: Adult Immunizations not up to date. - Social history:: Smoking status: Patient denies any tobacco usage or history of. Screenin:12 Abuse screen: Denies threats or abuse. Nutritional screening: No deficits noted. ea Tuberculosis screening: No symptoms or risk factors identified. Fall Risk None identified. Assessment: 22:11 General: Appears uncomfortable, Behavior is calm, cooperative, appropriate for age. ea Pain: Complains of pain in right upper quadrant Pain radiates to back. Neuro: Level of Consciousness is awake, alert, obeys commands, Oriented to person, place, time. Cardiovascular: Patient's skin is warm and dry. Respiratory: Airway is patent Respiratory effort is even, unlabored, Respiratory pattern is regular, symmetrical. GI: Bowel sounds present X 4 quads. Abdomen is tender to palpation in right upper quadrant. Derm: Skin is pink, warm \T\ dry. 22:23 Reassessment: Patient and/or family updated on plan of care and expected duration. Pain ea level reassessed. Patient is alert, oriented x 3, equal unlabored respirations, skin warm/dry/pink. Pt taken to ultrasound. 23:30 Reassessment: Patient and/or family updated on plan of care and expected duration. Pain ea level reassessed. Patient is alert, oriented x 3, equal unlabored respirations, skin warm/dry/pink. Discharge instruction given to patient, verbalized the understanding of instruction. Pt left ED ambulatory tolerating well. Vital Signs: 22:04 BP 137 / 77; Pulse 88; Resp 17; Temp 98.1(O); Pulse Ox 100% on R/A; Weight 90.72 kg; ar5 Height 5 ft. 6 in. (167.64 cm); Pain 10/10; 23:31 BP 128 / 64; Pulse 70; Resp 18; Pulse Ox 98% on R/A; ea 22:04 Body Mass Index 32.28 (90.72 kg, 167.64 cm) ar5 ED Course: 21:57 Patient arrived in ED. es 21:58 Triage completed. sg 21:58 Arm band placed on. sg 22:07 Anup Segundo PA is PHCP. jr8 22:07 Nilton Vang MD is Attending Physician. jr8 22:11 Didi Rayo, LINDSEY is Primary Nurse. ea 22:12 Patient has correct armband on for positive identification. Placed in gown. Bed in low ea position. Call light in reach. Side rails up X2. 22:21 Inserted saline lock: 20 gauge in right antecubital area, using aseptic technique. ea Blood collected. 22:36 US Abdomen Limited In Process Unspecified. EDMS 23:12 Olegario Gonzalez MD is Referral Physician. jr8 23:29 No provider procedures requiring assistance completed. IV discontinued, intact, ea bleeding controlled, No redness/swelling at site. Pressure dressing applied. Administered Medications: 23:29 Drug: morphine 4 mg Route: IVP; Site: right antecubital; ea 23:30 Follow up: Response: No adverse reaction; RASS: Alert and Calm (0) ea 23:29 Drug: Zofran (Ondansetron) 4 mg Route: IVP; Site: right antecubital; arnaud 23:31 Follow up: Response: No adverse reaction ea Outcome: 23:13 Discharge ordered by MD. paris 23:29 Discharged to home ambulatory, with family. arnaud 23:29 Condition: stable 23:29 Discharge instructions given to patient, Instructed on discharge instructions, follow up and referral plans. medication usage, Demonstrated understanding of instructions, follow-up care, medications. 23:38 Patient left the ED. ea Signatures: Dispatcher [employer] Hadley Leija, RN Carlee Hernandez Josh, PA PA jr8 Antunez, Elena, RN RN ea Robles, Autumn ar5
--- NOTE | 2020-02-12 23:14 | EDPHYS ---
Physician Documentation [facility] Name: Urvashi Molina Age: 19 yrs Sex: Female : 2000 Arrival Date: 02/12/2020 Time: 21:57 Bed 19 Private MD: ED Physician Nilton Vang HPI: 02/11 22:50 This 19 yrs old Female presents to ER via Ambulatory with complaints of jr8 Abdominal Pain. 22:50 The patient presents with abdominal pain in the upper abdomen. Onset: The jr8 symptoms/episode began/occurred acutely, today. The symptoms radiate to back. Associated signs and symptoms: Pertinent positives: nausea. The symptoms are described as stabbing. Modifying factors: The symptoms are alleviated by nothing, the symptoms are aggravated by food. Severity of pain: At its worst the pain was moderate in the emergency department the pain is unchanged. The patient has not experienced similar symptoms in the past. The patient has not recently seen a physician. Historical: - Allergies: 21:59 NKA; sg - PMHx: 21:59 Anxiety; high heart rate; sg - PSHx: 21:59 None; sg - Immunization history:: Adult Immunizations not up to date. - Social history:: Smoking status: Patient denies any tobacco usage or history of. ROS: 22:50 Eyes: Negative for injury, pain, redness, and discharge, ENT: Negative for injury, jr8 pain, and discharge, Neck: Negative for injury, pain, and swelling, Cardiovascular: Negative for chest pain, palpitations, and edema, Respiratory: Negative for shortness of breath, cough, wheezing, and pleuritic chest pain, Back: Negative for injury and pain, MS/Extremity: Negative for injury and deformity, Skin: Negative for injury, rash, and discoloration, Neuro: Negative for headache, weakness, numbness, tingling, and seizure. 22:50 Abdomen/GI: Positive for abdominal pain, nausea, Negative for vomiting, diarrhea, constipation, abdominal cramps, abdominal distension, anorexia, dysphagia, hematemesis, black/tarry stool, rectal pain, rectal bleeding, bowel incontinence, flatulence. Exam: 22:50 Eyes: Pupils equal round and reactive to light, extra-ocular motions intact. Lids and jr8 lashes normal. Conjunctiva and sclera are non-icteric and not injected. Cornea within normal limits. Periorbital areas with no swelling, redness, or edema. ENT: Nares patent. No nasal discharge, no septal abnormalities noted. Tympanic membranes are normal and external auditory canals are clear. Oropharynx with no redness, swelling, or masses, exudates, or evidence of obstruction, uvula midline. Mucous membranes moist. Neck: Trachea midline, no thyromegaly or masses palpated, and no cervical lymphadenopathy. Supple, full range of motion without nuchal rigidity, or vertebral point tenderness. No Meningismus. Cardiovascular: Regular rate and rhythm with a normal S1 and S2. No gallops, murmurs, or rubs. Normal PMI, no JVD. No pulse deficits. Respiratory: Lungs have equal breath sounds bilaterally, clear to auscultation and percussion. No rales, rhonchi or wheezes noted. No increased work of breathing, no retractions or nasal flaring. Back: No spinal tenderness. No costovertebral tenderness. Full range of motion. Skin: Warm, dry with normal turgor. Normal color with no rashes, no lesions, and no evidence of cellulitis. MS/ Extremity: Pulses equal, no cyanosis. Neurovascular intact. Full, normal range of motion. Neuro: Awake and alert, GCS 15, oriented to person, place, time, and situation. Cranial nerves II-XII grossly intact. Motor strength 5/5 in all extremities. Sensory grossly intact. Cerebellar exam normal. Normal gait. 22:50 Abdomen/GI: Inspection: abdomen appears normal, Bowel sounds: active, all quadrants, Palpation: soft, in all quadrants, mild abdominal tenderness, in the left upper quadrant, moderate abdominal tenderness, in the epigastric area and right upper quadrant, mass, is not appreciated, rebound tenderness, is not appreciated, voluntary guarding, is not appreciated, involuntary guarding, is not appreciated, no appreciated organomegaly, Indicators: McBurney's point is not tender, Kelsey's sign is positive, Rovsing's sign is negative, Liver: tenderness, is not appreciated. Vital Signs: 22:04 BP 137 / 77; Pulse 88; Resp 17; Temp 98.1(O); Pulse Ox 100% on R/A; Weight 90.72 kg; ar5 Height 5 ft. 6 in. (167.64 cm); Pain 10/10; 23:31 BP 128 / 64; Pulse 70; Resp 18; Pulse Ox 98% on R/A; ea 22:04 Body Mass Index 32.28 (90.72 kg, 167.64 cm) ar5 MDM: 22:11 Patient medically screened. 8 22:52 Data reviewed: vital signs, nurses notes, lab test result(s), radiologic studies, jr8 ultrasound. Data interpreted: Pulse oximetry: on room air is 100 %. Interpretation: normal. Counseling: I had a detailed discussion with the patient and/or guardian regarding: the historical points, exam findings, and any diagnostic results supporting the discharge/admit diagnosis, lab results, radiology results, the need for outpatient follow up, a general surgeon, to return to the emergency department if symptoms worsen or persist or if there are any questions or concerns that arise at home. Response to treatment: the patient's symptoms have markedly improved after treatment. ED course: Discussed with patient that she has cholelithiasis without CBD dilation or inflammation. No fevers. Stable to go home and control with diet and pain medications for now. To have her f/u with General Surgery for further evaluation and possible surgery to remove organ. If she were to present with fevers or uncontrolled pain, to come back for reevaluation. Dietary recommendations also given in the meantime. Patient good with this plan. . 02/11 22:08 Order name: Basic Metabolic Panel; Complete Time: 22:46 [facility] 02/11 22:08 Order name: CBC with Diff; Complete Time: 22:43 8 02/11 22:08 Order name: Hepatic Function; Complete Time: 22:46 8 02/11 22:08 Order name: Lipase; Complete Time: 22:46 [facility] 02/11 22:11 Order name: US Abdomen Limited ea 02/11 22:08 Order name: IV Saline Lock; Complete Time: 22:21 [facility] 02/11 22:08 Order name: Labs collected and sent; Complete Time: 22:21 [facility] Administered Medications: 23:29 Drug: morphine 4 mg Route: IVP; Site: right antecubital; ea 23:30 Follow up: Response: No adverse reaction; RASS: Alert and Calm (0) ea 23:29 Drug: Zofran (Ondansetron) 4 mg Route: IVP; Site: right antecubital; ea 23:31 Follow up: Response: No adverse reaction ea Disposition: 02/12 00:37 Co-signature as Attending Physician, Nilton Vang MD. pkl Disposition: 02/12/20 23:13 Discharged to Home. Impression: Cholelithiasis. - Condition is Stable. - Discharge Instructions: Cholelithiasis. - Prescriptions for Tylenol- Codeine #3 300-30 mg Oral Tablet - take 2 tablets by ORAL route every 6 hours As needed; 20 tablet. Zofran 4 mg Oral Tablet - take 1 tablet by ORAL route every 12 hours As needed; 20 tablet. - Medication Reconciliation Form, Thank You Letter, Antibiotic Education, Prescription Opioid Use form. - Follow up: Olegario Gonzalez MD; When: 1 - 2 days; Reason: Recheck today's complaints, Continuance of care, Re-evaluation by your physician. - Problem is new. - Symptoms have improved. Signatures: Dispatcher [employer] EDMS Hadley Martin RN RN sg Lam, Pin, MD MD pkl Anup Segundo PA PA jr8 Didi Rayo RN RN arnaud Corrections: (The following items were deleted from the chart) 02/11 23:38 23:13 02/12/2020 23:13 Discharged to Home. Impression: Cholelithiasis. Condition is ea Stable. Forms are Medication Reconciliation Form, Thank You Letter, Antibiotic Education, Prescription Opioid Use. Follow up: Olegario Gonzalez; When: 1 - 2 days; Reason: Recheck today's complaints, Continuance of care, Re-evaluation by your physician. Problem is new. Symptoms have improved. jr8
[2020-02-12] MEDS ORDERED: ONDANSETRON 4 MG/2 ML VIAL ONE (23:25)
[2020-02-12] MEDS ORDERED: MORPHINE 4 MG/ML SYR ONE (23:25)
[2020-02-12 23:46] VITALS: TEMP 98.1
[2020-02-12 23:50] VITALS: BP 128/64; O2SAT 98
--- NOTE | 2020-02-13 06:50 | RAD REPORT ---
EXAM DESCRIPTION: US - Abdomen Exam Limited - 02/12/2020 10:36 pm CLINICAL HISTORY: r/o GB;Abd pain Preliminary findings provided at the time of the study. COMPARISON: Abdomen Pelvis W Contrast dated 12/14/2018 FINDINGS: Multiple small 1-3 mm sized mobile gallstones are seen. Additional smaller sandlike stones may be present as well. No measurable quantity of sludge. There is no wall thickening or pericholecy stic fluid. No common duct stone or biliary tree dilatation identified. IMPRESSION: Multiple small gallstones. No wall thickening or pericholecystic fluid. No biliary tree dilatation.
== END 2020-02-12 23:38 | disposition home or self-care (01) ==
LOC: ER 21:52
DX: K80.20 Calculus of gallbladder without cholecystitis without obstruction (principal)
CPT/HCPCS: 85025; 80048; 36415; 80076; 83690; 76705; 96375; 96374; 99284; J2405

== ENCOUNTER 2020-03-04 10:37 | Day surgery (SDC) | payer OTHER ==
[2020-03-04 10:53] LABS: Specific Gravity 1.015 (1.005-1.030)
[2020-03-04] MEDS ORDERED: Ringers Lactate 1,000 ML IV ONE (10:56)
[2020-03-04] MEDS ORDERED: CEFOXITIN/SWI 2gm 2 GM/20 ML SYR IV ONE (11:00)
[2020-03-04] MEDS: BUPIVACA 0.25%/EPI 0.0005%/PF 30 ML VIAL ONE ×2 (12:50→13:30)
[2020-03-04] MEDS ORDERED: LIDOCAINE 1% MPF 5 ML VIAL ONE (13:07)
[2020-03-04] MEDS ORDERED: MIDAZOLAM HCL 2 MG/2 ML INJ ONE (13:07)
[2020-03-04] MEDS ORDERED: propofoL 200 MG/20 ML VIAL IV ONE (13:07)
[2020-03-04] MEDS ORDERED: FENTANYL CITR 100 MCG/2 ML ONE ×2 (13:07→13:41)
[2020-03-04] MEDS ORDERED: ROCURONIUM 50 MG/5 ML VIAL IV ONE (13:07)
[2020-03-04] MEDS ORDERED: dexAMETHasone 10 MG/ML VIAL ONE (13:42)
[2020-03-04] MEDS ORDERED: KETOROLAC 30 MG/ML INJ ONE (13:42)
[2020-03-04] MEDS ORDERED: GLYCOPYRROLATE 0.2 MG/ML SYR ONE ×3 (13:44→13:47)
[2020-03-04] MEDS ORDERED: ONDANSETRON 4 MG/2 ML VIAL ONE (13:44)
[2020-03-04] MEDS ORDERED: NEOSTIGMINE 1 MG/ML -5 ML ONE (13:47)
[2020-03-04] MEDS: HYDROMORPHONE HCL 2 MG/ML inj ONE ×2 (14:54→15:00)
[2020-03-04] MEDS ORDERED: PROMETHAZINE INJ 25 MG/ML AMP ONE (15:03)
[2020-03-04] MEDS ORDERED: HYDROMORPHONE HCL 1 MG/ML INJ ONE (15:18)
[2020-03-04 16:08] VITALS: TEMP 97
[2020-03-04] MEDS ORDERED: ONDANSETRON 4 MG (ODT) TAB PO ONE (16:20)
[2020-03-04] MEDS ORDERED: ONDANSETRON 4 MG (ODT) TAB ONE (16:27)
[2020-03-04] MEDS ORDERED: HYDROCODONE/APAP 5/325 MG TAB ONE (16:52)
--- NOTE | 2020-03-04 21:09 | P.OP ---
Preoperative diagnosis: Chronic Cholecystitis with cholelithiasis Postoperative diagnosis: Chronic Cholecystitis with cholelithiasis Primary procedure: Laparoscopic Cholecystectomy Anesthesia: GETA + Local Estimated blood loss: <10cc Specimen: Gallbladder Findings: Large dilated gallbladder with significant adhesions Complications: None Transferred to: Recovery Room Condition: Good
--- NOTE | 2020-03-05 00:21 | OP ---
Date of Procedure: 03/04/2020 Surgeon: Olegario Gonzalez MD, Preoperative Diagnosis: Chronic cholecystitis with cholelithiasis. Postoperative Diagnosis: Chronic cholecystitis with cholelithiasis. Procedure Performed: Laparoscopic cholecystectomy. Anesthesia: General endotracheal plus local with half percent Marcaine with epinephrine. Estimated Blood Loss: Less than 10 cc. Specimens: Gallbladder. Findings: Large dilated gallbladder with significant intraabdominal adhesions. Complications: None. Disposition: Transferred to recovery room in good condition. Procedure In Detail: After informed consent was obtained, the patient was brought to the operating room and prepped and draped in the usual sterile fashion. After adequate anesthesia was achieved, supraumbilical area was anesthetized with half percent Marcaine, sharply incised. A 5 mm 0-degree optical trocar was then introduced in the abdomen without evidence of complication. Insufflation was obtained to 15 mmHg at this time. There was no injury to vital structure upon entering the abdomen. The gallbladder was noted to be encased in omentum. At this point, additional trocars were placed in the epigastrium and 2 in the right upper quadrant. All these were 5 mm trocars placed under direct visualization without evidence of complication. The umbilical trocar was then up-sized to a 12 mm under direct visualization without evidence of complication. Gallbladder was dissected free from the omental attachments and grasped, elevated toward the patient's right shoulder and dissection continued down to expose the Jasmin pouch of the gallbladder. The cystic duct and cystic artery were both identified. These structures were encircled and skeletonized. Critical view of safety was obtained and the double titanium clips were placed on the proximal side and singly on the distal side of both cystic duct and cystic artery. I then removed the gallbladder from the hepatic fossa using electrocautery with minimal electrocautery being needed for additional hemostasis on the hepatic bed. After the gallbladder was removed, it was placed in EndoCatch bag, removed through the umbilical trocar, sent off for pathologic examination. The abdomen was re-insufflated at this point, copiously irrigated multiple times, and suctioned out until completely clear. There were no additional hemostatic maneuvers required and the clips were found to be in good anatomic position without any spillage of bile. At the end of the procedure, the area was suctioned out until completely dry and the patient was placed in neutral position. The umbilical trocar was removed. The umbilical trocar site was closed using a Pradeep-Mann suture passer in 0 Vicryl interrupted fashion with good approximation of tissues. The abdomen was completely desufflated under direct visualization without evidence of complication. All skin incisions were copiously irrigated and closed with a 4-0 Monocryl in a running fashion. Dermabond was placed over the top. The patient tolerated the procedure well without evidence of complication and transferred to PACU in good condition. All counts were correct at the end of the case. RIMMA/DAR Voice ID: [id number] Report ID: [id number] MTDD
[2020-03-05 08:53] VITALS: BP 117/64; O2SAT 100
== END 2020-03-04 17:45 | disposition home or self-care (01) ==
LOC: OR 10:37
PROVIDERS: ATTEND Surgery
PROC: 0FT44ZZ Resection of Gallbladder, Percutaneous Endoscopic Approach (ICD-10-PCS; principal; 2020-03-04 13:45)
DX: K80.10 Calculus of gallbladder with chronic cholecystitis without obstruction (principal); Z11.59 Encounter for screening for other viral diseases
CPT/HCPCS: 81025; 88304; 47562; U0002; J2704; J2550; J2250; J1170 ×2; J3010 ×2; J1100; J2710; J0694; J7120; J2405

== ENCOUNTER 2020-09-30 16:57 | Emergency (ER) | payer OTHER ==
--- OUTSIDE RECORDS SUMMARY | 2020-09-30 16:59 | XMS REPORT | Continuity of Care Document ---
:2000 Author Organization [facility] Care Team Providers Name Role Phone [facility] Unavailable Un available Problems Problem Status Onset Classification Date Comments Sourc e Date Reported Leukocytosis, Active Problem 09/07/2018 eCW: [place] [facility] Lower abdominal Active Diagnosis 08/30/2018 eCW : [facility] pain [facility] Practice Encounter for Active Diagnosis 08/30/2018 eCW: [place] screening [facility] Medications Medication Details Route Status Patient Ordering Order Source Instructions Provider Date Cipro 1 tab(s) orally Active 500 mg orally Vanderzyl eCW: [place] gar every [address] [place] [address] Allergies, Adverse Reactions, Alerts Substance Category Reaction Severity Reaction Status Date Comments S ource type Reported N.K.D.A. Adverse Info Not Adverse Active eCW: Reaction Available Reaction 8 Suga r [facility] Immunizations No Data Provided for This Section [...] Date Comments Source Height 65 07/22/2018 eCW: [facility] Weight 202 07/22/2018 eCW: [facility] Temperature Oral (F) 96.0 F 07/22/2018 eCW: [place] [facility] Diastolic (mm Hg) 78 07/22/2018 eCW: [facility] Systolic (mm Hg) 122 07/22/2018 eCW: [facility] Encounters No Data Provided for This Section [...]
--- OUTSIDE RECORDS SUMMARY | 2020-09-30 16:59 | XMS REPORT | Continuity of Care Document ---
:2000 Author Organization [facility] t Address [address] [place] [address] Care Team Providers Name Role Phone Phu Hampton Attending Clinician 2, [facility] Room Attending Clinician Unavailable Gretchen Chavez MD Attending Clinician Faculty, Josechrandall Mf Attending Clinician Unavailable Lab Attending Clinician Unavailable 1, [facility] Room Attending Clinician Unavailable Amarjit MI Attending Clinician John PORTILLO, G Attending Clinician Unavailable Problems Condition Condition Condition Status Onset Resolution Last Treating Co mments Source Name Details Category Date Date Treatment Clinician Date Leukocytos Problem Active 2018-09-07 M emoria is, 05:10:56 l unspecifie Chente n d type Leukocytos is, unspecifie d type Active Problem 09/07/2018 eCW: [facility] Lower Diagnosis Active 2018-08-30 Mem oria abdominal 05:15:14 l pain [place] abdominal pain Active Diagnosis 08/30/2018 eCW: [place] [facility] Encounter Diagnosis Active 2018-08-30 Memoria for 05:15:14 l screening [place] Encounter for screening Active Diagnosis 08/30/2018 eCW: [facility] Allergies, Adverse Reactions, Alerts Allergy Allergy Status Severity Reaction(s) Onset Inactive Treating Comm ents Source Name Type Date Date Clinician Kylah NAnastacia Active Info Not 2017-08 Justyn reji Available 2-14 l 00:00: [place] 00 Medications Ordered Filled Start Stop Current Ordering Indication Dosage Frequency Signature Comments Components Source Medication Medication Date Date Medication? Clinician (SIG) Name Name Diana 2017-08 Yes Joseph 1 tab(s) Memoria 2-20 Vanderzyl l 00:00: [place] 00 Vital Signs Vital Name Observation Time Observation Value Comments Source Temperature Oral (F) 2018-07-22 19:45:00 96.0 F [facility] Diastolic (mm Hg) 2018-07-22 19:45:00 Mem orial [place] Systolic (mm Hg) 2018-07-22 19:45:00 Justyn rial [place] Height 2018-07-22 19:45:00 [facility] Weight 2018-07-22 19:45:00 [facility] Procedures This patient has no known procedures. Encounters Start End Encounter Admission Attending Care Care Encounter Source Date/Time Date/Time Type Type Clinicians Facility Department ID 2020-09-20 2020-09-20 Routine [facility], [facility] [id number] 14:50:44 15:12:59 Lizzie C SEM MANAGER [id number] Visit REGIONAL 4.2.7.2.686 MATERNAL [id number] & CHILD 107 [facility] 2020-09-09 2020-09-09 [facility] [id number] 00:00:00 00:00:00 Lizzie C SEM MANAGER [id number] REGIONAL 4.2.7.2.686 MATERNAL [id number] & CHILD 107 [facility] 2020-09-05 2020-09-05 Broom Worker 2, [facility] UNIVERSIT [id number] 13:33:01 15:36:46 Visit [facility] HEALTH [id number] [facility] 4.2.7.2.686 [id number] 2020-09-05 2020-09-05 Letter [facility] UNIVERSIT [id number] 00:00:00 00:00:00 (Out) [facility] 350.1.13.10 s, [place] [facility] 4.2.7.2.686 [id number] 2020-08-23 2020-08-23 Routine Akinsi, [facility] [id number] 14:04:04 15:06:18 Lizzie C SEM MANAGER [id number] Visit [facility] 4.2.7.2.686 MATERNAL [id number] & CHILD 107 [facility] 2020-07-29 2020-07-29 Telemedici [place] [id number] 08:08:23 08:53:23 [facility] 350.1.13.10 [facility] 4.2.7.2.686 MATERNAL [id number] & CHILD 107 [facility] 2020-07-26 2020-07-26 Routine [facility] [id number] 14:10:32 14:29:49 Lizzie C SEM MANAGER 350.1.13.10 Visit [facility] 4.2.7.2.686 MATERNAL [id number] & CHILD 107 [facility] 2020-07-19 2020-07-19 Abstract [place] [id number] 00:00:00 00:00:00 Lizzie C SEM MANAGER 350.1.13.10 REGIONAL 4.2.7.2.686 MATERNAL [id number] & CHILD 107 [facility] 2020-07-18 2020-07-18 Broom Worker Lab, UNIVERSIT 1.2.840.114 [id number] 13:50:07 14:09:23 Visit [facility] HEALTH 350.1.13.10 CLINICS 4.2.7.2.686 [id number] 2020-07-18 2020-07-18 Broom Worker , [facility] 1.2.840.11 [id number] 12:59:10 13:43:[address] [facility] Y HEALTH 350.1.13.10 CLINICS 4.2.7.2.686 [id number] 2020-07-18 2020-07-18 Elliot Godinez [facility] [id number] 00:00:00 00:00:00 (Out) [place] Y HEALTH 350.1.13.10 s, [place] [facility] 4.2.7.2.686 [id number] 2020-07-18 2020-07-18 [facility] Ocas[facility], [facility] [id number] 00:00:00 00:00:00 Management Aleyda Y HEALTH 350.1.13.10 [facility] 4.2.7.2.686 [id number] 2020-07-15 2020-07-15 [facility] 12.840.114 [id number] 08:10:49 16:33:[address] [facility] Rmchp SEM MANAGER 350.1.13.10 [facility] 4.2.7.2.686 MATERNAL [id number] & CHILD 107 [facility] 2020-07-14 2020-07-14 Nurse Shubham SAVAGE 2.840.114 [id number] 00:00:00 00:00:00 Triage dJayde 350.1.13.10 [facility] 42.7.2.686 [id number] 2020-07-01 2020-07-01 Abstract [place] [id number] 00:00:00 00:00:00 Lizzie C SEM MANAGER 350.1.13.10 [facility] 4.2.7.2.686 MATERNAL [id number] & CHILD 107 [facility] 2020-06-28 2020-06-28 Broom Worker 1, [facility] 1.2.840.11 [id number] 12:40:24 13:25:24 Visit Us Room Y HEALTH 350.1.13.10 [facility] 4.2.7.2.686 [id number] 2020-06-27 2020-06-27 Routine [facility] [id number] 13:00:22 13:39:22 Lizzie C SEM MANAGER 350.1.13.10 Visit [facility] 4.2.7.2.686 MATERNAL [id number] & CHILD 107 [facility] 2020-06-17 2020-06-17 Routine Faculty, [facility] [id number] 10:47:26 11:48:07 [facility] SEM MANAGER 350.1.13.10 Visit [facility] 4.2.7.2.686 MATERNAL [id number] & CHILD 107 [facility] 2018-09-05 2018-09-05 Outpatient [place] [id number] Memoria 17:00:00 17:00:00 [facility] [place] [facility] 2018-09-01 2018-09-01 Outpatient [place] [id number] Memoria 15:26:00 15:26:00 [facility] [place] [facility] 2018-07-28 2018-07-28 Outpatient [place] [id number] Memoria 11:34:00 11:34:00 [facility] [place] [facility] 2018-07-26 2018-07-26 Outpatient [place] [id number] Memoria 08:33:00 08:33:00 [facility] [place] Practice 2018-07-25 2018-07-25 Outpatient [place] [id number] Memoria 12:56:00 12:56:00 [facility] [place] [facility] 2018-07-22 2018-07-22 Outpatient [place] [id number] Memoria 13:45:00 13:45:00 [facility] [place] [facility] Results This patient has no known results.
--- NOTE | 2020-09-30 19:32 | EDPHYS ---
Physician Documentation [facility] Name: Urvashi Molina Age: 20 yrs Sex: Female : 2000 Arrival Date: 09/30/2020 Time: 17:00 Bed 11 Private MD: ED Physician Carlos Briggs HPI: 09/30 19:30 This 20 yrs old Female presents to ER via Ambulatory with complaints of Dental pm1 pain. 19:30 The patient presents with pain. The problem is located in the lower right second pm1 bicuspid. Onset: The symptoms/episode began/occurred yesterday, on and off for multiple months. Duration: The symptoms are continuous. Modifying factors: The symptoms are alleviated by nothing. Associated signs and symptoms: Pertinent positives: swelling, mandibular. Severity of symptoms: in the emergency department the symptoms are actually worse. The patient has not experienced similar symptoms in the past. Patient is 23 weeks . DROP WIRER: 19:30 Verified wh Historical: - Allergies: 17:12 NKA; ll1 - PMHx: 17:12 Anxiety; high heart rate; ll1 - PSHx: 17:12 Cholecystectomy; ll1 - Immunization history:: Flu vaccine is not up to date. - Social history:: Smoking status: Patient denies any tobacco usage or history of. ROS: 19:30 Constitutional: Negative for fever, chills, and weight loss. pm1 19:30 Neck: Negative for injury, pain, and swelling, Cardiovascular: Negative for chest pain, palpitations, and edema, Respiratory: Negative for shortness of breath, cough, wheezing, and pleuritic chest pain, MS/Extremity: Negative for injury and deformity, Skin: Negative for injury, rash, and discoloration, Neuro: Negative for headache, weakness, numbness, tingling, and seizure. 19:30 ENT: Positive for dental pain, Negative for sore throat, difficulty swallowing, difficulty handling secretions, hoarseness. Exam: 19:30 Constitutional: This is a well developed, well nourished patient who is awake, alert, pm1 and in no acute distress. Head/Face: Normocephalic, atraumatic. 19:30 Skin: Warm, dry with normal turgor. Normal color with no rashes, no lesions, and no evidence of cellulitis. MS/ Extremity: Pulses equal, no cyanosis. Neurovascular intact. Full, normal range of motion. 19:30 ENT: External ear(s): are unremarkable, Ear canal(s): are normal, TM's: are normal, Dental exam: dental caries, that is moderate, specifically in the lower right second bicuspid (#29). 19:30 Cardiovascular: Exam negative for acute changes, Rate: normal, Rhythm: regular, Pulses: no pulse deficits are appreciated. 19:30 Respiratory: Exam negative for acute changes, respiratory distress, shortness of breath. 19:30 Neuro: Exam negative for acute changes, Orientation: is normal, Mentation: is normal, Motor: is normal, moves all fours. Vital Signs: 17:10 BP 116 / 71; Pulse 100; Resp 17; Temp 97.5; Pulse Ox 98% ; Weight 99.79 kg; Height 5 ll1 ft. 7 in. (170.18 cm); Pain 10/10; 17:10 Body Mass Index 34.46 (99.79 kg, 170.18 cm) ll1 MDM: 19:22 Patient medically screened. pm1 19:30 Data reviewed: vital signs. pm1 19:30 Counseling: I had a detailed discussion with the patient and/or guardian regarding: the pm1 historical points, exam findings, and any diagnostic results supporting the discharge/admit diagnosis, the need for outpatient follow up, for definitive care, a dentist, to return to the emergency department if symptoms worsen or persist or if there are any questions or concerns that arise at home. Administered Medications: No medications were administered Disposition: 10/01 06:26 Co-signature as Attending Physician, Carlos Briggs MD I agree with the assessment and tw4 plan of care. Disposition: 09/30/20 19:31 Discharged to Home. Impression: Dental pain. - Condition is Stable. - Discharge Instructions: Dental Pain. - Prescriptions for Amoxicillin 500 mg Oral Capsule - take 1 capsule by ORAL route every 8 hours for 10 days; 30 tablet. - Medication Reconciliation Form, Thank You Letter, Antibiotic Education, Prescription Opioid Use form. - Follow up: Emergency Department; When: As needed; Reason: Worsening of condition. Follow up: Private Physician; When: 2 - 3 days; Reason: Recheck today's complaints, Continuance of care, Re-evaluation by your physician. - Problem is new. - Symptoms are unchanged. Signatures: Godfrey Mcgovern NP DIRECTOR OF OPERATIONS FOR THERAPY pm1 Toni Mcmullen, RN RN Carlos Briggs MD MD tw4 Jonah Diaz, RN RN ll1 Corrections: (The following items were deleted from the chart) 09/30 19:49 19:31 09/30/2020 19:31 Discharged to Home. Impression: Dental pain. Condition is wh Stable. Forms are Medication Reconciliation Form, Thank You Letter, Antibiotic Education, Prescription Opioid Use. Follow up: Emergency Department; When: As needed; Reason: Worsening of condition. Follow up: Private Physician; When: 2 - 3 days; Reason: Recheck today's complaints, Continuance of care, Re-evaluation by your physician. Problem is new. Symptoms are unchanged. pm1
--- NOTE | 2020-09-30 19:32 | ER ---
Nurse's Notes [facility] Name: Urvashi Molina Age: 20 yrs Sex: Female : 2000 Arrival Date: 09/30/2020 Time: 17:00 Bed 11 Private MD: Diagnosis: Dental pain Presentation: 09/30 17:10 Chief complaint: Patient states: R lower jaw tooth pain for 2 days. Site is swollen and ll1 morte painful today. 23 weeks . G2, P1. No vaginal bleeding, good movement. Coronavirus screen: Client denies travel out of the [place] in the last 14 days. At this time, the client does not indicate any symptoms associated with coronavirus-19. Ebola Screen: Patient denies travel to an Ebola-affected area in the 21 days before illness onset. Initial Sepsis Screen: Does the patient meet any 2 criteria? HR > 90 bpm. No. Patient's initial sepsis screen is negative. Does the patient have a suspected source of infection? Yes: Other: tooth/jaw pain. Risk Assessment: Do you want to hurt yourself or someone else? Patient reports no desire to harm self or others. Onset of symptoms was September 29, 2020. 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 - Social history:: Smoking status: Patient denies any tobacco usage or history of. Screenin:30 Abuse screen: Denies threats or abuse. Denies injuries from another. Nutritional wh screening: No deficits noted. Tuberculosis screening: No symptoms or risk factors identified. Fall Risk None identified. Assessment: 19:20 General: Appears in no apparent distress. Behavior is calm, cooperative, appropriate wh for age. Pain: Complains of pain in right lower jaw. Neuro: Level of Consciousness is awake, alert, obeys commands, Oriented to person, place, time, situation, Appropriate for age. Cardiovascular: Capillary refill < 3 seconds. Respiratory: Airway is patent Respiratory effort is even, unlabored, Respiratory pattern is regular, symmetrical. GI: Abdomen is round. : No signs and/or symptoms were reported regarding the genitourinary system. EENT: Derm: Skin is intact, is healthy with good turgor, Skin is pink, warm \T\ dry. normal. Musculoskeletal: Circulation, motion, and sensation intact. Vital Signs: 17:10 BP 116 / 71; Pulse 100; Resp 17; Temp 97.5; Pulse Ox 98% ; Weight 99.79 kg; Height 5 ll1 ft. 7 in. (170.18 cm); Pain 10/10; 17:10 Body Mass Index 34.46 (99.79 kg, 170.18 cm) 1 ED Course: 17:00 Patient arrived in ED. mr 17:12 Triage completed. 1 17:12 Arm band placed on. ll1 19:20 Patient has correct armband on for positive identification. 19:22 Godfrey Mcgovern NP is PHCP. pm1 19:22 Carlos Briggs MD is Attending Physician. pm1 19:37 Toni Mcmullen, LINDSEY is Primary Nurse. 19:47 No provider procedures requiring assistance completed. Patient did not have IV access during this emergency room visit. Administered Medications: No medications were administered Outcome: 19:31 Discharge ordered by MD. pm1 19:48 Discharged to home ambulatory. 19:48 Condition: stable 19:48 Discharge instructions given to patient, Instructed on discharge instructions, follow up and referral plans. medication usage, POC Demonstrated understanding of instructions, follow-up care, medications, POC Prescriptions given X 1. 19:49 Patient left the ED. Signatures: Li Hahn mr Godfrey Mcgovern NP SOLAR INSTALLATION TECHNICIAN pm1 Toni Mcmullen, LINDSEY PORTILLO Jonah Diaz RN RN [facility]
[2020-09-30 20:26] VITALS: BP 116/71; TEMP 97.5; O2SAT 98
== END 2020-09-30 19:49 | disposition home or self-care (01) ==
LOC: ER 16:57
DX: O26.892 Other specified pregnancy related conditions, second trimester (principal); Z3A.23 23 weeks gestation of pregnancy
CPT/HCPCS: 99282

== ENCOUNTER 2021-07-26 12:43 | Emergency (ER) | payer OTHER ==
--- OUTSIDE RECORDS SUMMARY | 2021-07-26 12:59 | XMS REPORT | Continuity of Care Document ---
:2000 Author Organization [facility] t Address [address] [place] [address] Care Team Providers Name Role Phone Phu RICHARDS Primary Care Physician Unavailable FLORENCIO, Elie Attending Clinician Unavailable Ute HERNANDEZ Attending Clinician Unavailable SUSIE C Attending Clinician Unavailable Mary ELECTRO MECHANIC, R Attending Clinician Nury HAMILTON, R Attending Clinician Susie GARCIAP, C Attending Clinician Doctor Unassigned, Name Attending Clinician Unavailable Alina RIVERA, L Attending Clinician NIMA, K.H. Attending Clinician Unavailable Katie PORTILLO, A Attending Clinician Unavailable Lab, Fam Pob I Attending Clinician Unavailable Jean ROJASP Attending Clinician Ultrasound Attending Clinician Unavailable Tyron RIVERA, F Attending Clinician Subhash PORTILLO Attending Clinician Unavailable Nima RIVERA, K.H. Attending Clinician Omaira Chavez MD Attending Clinician Provider, Urgent Care Attending Clinician Unavailable Shay ROJASP Attending Clinician ANENE Attending Clinician Unavailable 2, Mfm Usg Room Attending Clinician Unavailable Faculty, Rmchp Mfm Attending Clinician Unavailable Ute Walsh MD Attending Clinician Lab Attending Clinician Unavailable 1, m Usg Room Attending Clinician Unavailable Amarjit ELECTRO MECHANIC Attending Clinician Michelle Dang MD Attending Clinician John PORTILLO, G Attending Clinician Unavailable Roland RIVERA Attending Clinician Luis Eduardo RIVERA, Yancy Attending Clinician [facility] Unavailable Carlos [facility] Attending Clinician Ezra RN, Walter Attending Clinician Unavailable Willian PORTILLO, S Attending Clinician Unavailable Dominick PORTILLO Attending Clinician Unavailable Pedro Matias DO Attending Clinician Taj RIVERA, Carlos Attending Clinician Rik FULLER Attending Clinician Unavailable OMAIRA CHAVEZ Attending Clinician Unavailable Michelle Cortes RN Attending Clinician Unavailable BENNY Attending Clinician Unavailable Randy MATHEW Attending Clinician Unavailable Rik FULLER Admitting Clinician Unavailable Rik Fuller MD Admitting Clinician Yancy Hoff MD Admitting Clinician Carlos Vang MD Admitting Clinician BENNY Admitting Clinician Unavailable Payers Payer Name Policy Type Policy Number Effective Date Expiration Date [facility] [id number] 2019 [facility] MEDICAID 00:00:00 ENTRUST [id number] 2019 00:00:00 Problems Condition Condition Condition Status Onset Resolution Last Treating Co mments Source Name Details Category Date Date Treatment Clinician Date Anemia of Anemia of Disease Active Uni vers mother in mother in 01-11 [place] , , [place] 00 Me dical condition condition Bran ch Single Single Disease Active Univers live live 01-11 it y of 00:00: [address] Obesity Obesity Disease Active Univers (BMI (BMI 01-09 ity of 30-39.9) 30-39.9) 00:00: [address] 38 weeks 38 weeks Disease Active Unive rs gestation gestation 6-03 ity of of of 00:00: [place] 00 [facility] Branch Decreased Decreased Disease Active Uni vers 6-03 ity of movement movement 00:00: [place] 00 Medical Branch Indication Indication Disease Active U nivers for care for care 6-03 ity of or or 00:00: [place] interventi interventi 00 Me dical on in on in Branch labor or labor or delivery-I delivery-I OL d/t DFM OL d/t DFM Nausea and Nausea and Disease Active U nivers vomiting vomiting 5-28 ity of during during 00:00: [place] 00 [facility] Pain of Pain of Disease Active Univers round round 5-03 ity of ligament ligament 00:00: [place] during during 00 Medical Bran ch Circumvall Circumvall Disease Active Overview : Univers ate ate 2-01 Formattin ity of placenta placenta 00:00: g of this [place] 00 note Medical might be Branch different from the original. Follow up q4 weeks usg Headache Headache Disease Active Unive rs in in 1-15 [place] Susceptibl Susceptibl Disease Active 2019-08 Overview : Univers e to e to 0-21 Formattin ity of varicella varicella 00:00: [place] of this [place] (non-immun (non-immun 00 note Me dical e), e), might be Branch currently currently different from the original. Address pp Supervisio Supervisio Disease Active 2019-08 U nivers n of n of 0-20 ity of high-risk high-risk 00:[place] [facility] Multiparit Multiparit Disease Active 2019-08 U nivers y y 0-20 ity of 00:00: [place] 00 Medical Branch Short Short Disease Active 2019-08 Univers interval interval 0-20 ity of between between 00:00: [place] pregnancie pregnancie 00 Me dical s s Branch affecting affecting , , antepartum antepartum History of History of Disease Active 2020- U nivers gestationa gestationa 0-20 it y of l l 00:00: [place] hypertensi hypertensi 00 Me dical on on Branch Flu Flu Disease Active 2019-08 Overview: Univer s vaccine vaccine 0-20 Formattin ity o f need need 00:00: g of this [place] 00 note Medical might be Branch different from the original. declined Anxiety Anxiety Disease Active 2020- Univers 0-20 ity of 00:00: [place] 00 Medical Branch Routine Routine Disease Active 2020-0 Univers 7-13 it y of follow-up follow-up 00:00: [place] 00 Medical Branch Single Single Disease Active 2020-0 Univers liveborn liveborn 6-15 ity of 00:00: [place] 00 Medical Branch Disease Active 2020-0 Univers (spontaneo (spontaneo 6-15 it y of us vaginal us vaginal [place] delivery[place] delivery) 00 [facility] Elevated Elevated Disease Active 2020-0 Unive rs blood blood 6-12 ity of pressure pressure 00:00: [place] reading reading 00 Medical without without Branch diagnosis diagnosis of of hypertensi hypertensi on on 37 weeks 37 weeks Disease Active 2020-0 Unive rs gestation gestation 6-12 ity of of of 00:00: [place] 00 [facility] Severino Rawlins Disease Active 2020-0 Univers Hick's Hick's 4-27 ity of contractio contractio 00:00: [place] n n 00 Medical Branch Anemia of Anemia of Disease Active 2020-0 Uni vers mother in mother in 4-01 ity of , , [place] antepartum antepartum 00 [facility] Branch Leukorrhea Leukorrhea Disease Active 2020-0 U nivers 3-02 ity of 00:00: [place] 00 Medical Branch Obesity in Obesity in Disease Active 2020-0 U nivers 2-01 ity of 00:00: [place] 00 Medical Branch Obesity Obesity Disease Active 2020-0 Univers (BMI (BMI 2-01 ity of 30-39.9) 30-39.9) 00:00: [place] 00 Medical Branch Diarrhea Diarrhea Disease Active 2020-0 Unive rs during during 1-06 ity of 00:00: [place] Medical Branch Susceptibl Susceptibl Disease Active 2018-08 Overview : Univers e to e to 0-29 Address ity of varicella varicella 00:00: [place] (non-immun (non-immun 00 Me dical e), e), Branch currently currently Supervisio Supervisio Disease Active 2018-08 U nivers n of n of 0-28 ity of high-risk high-risk [place] [facility] Obesity Obesity Disease Active 2018-08 Univers affecting affecting 0-28 [place] of [place] Tachycardi Tachycardi Disease Active 2018-08 Overview : Univers a, a, 0-28 Per ity of unspecifie unspecifie 00:00: patient [place] d d 00 report Medical Branch Allergies, Adverse Reactions, Alerts Allergy Allergy Status Severity Reaction(s) Onset Inactive Treating Comm ents Source Name Type Date Date Clinician NO KNOWN Drug Active Univers ALLERGIE Class ity of S [facility] Social History Social Habit Start Date Stop Date Quantity Comments Source ASSERTION 2020-05-01 [facility] 00:00:00 [facility] Exposure to Not sure [facility] SARS-CoV-2 [facility] (event) [place] Alcohol intake 2021-02-19 2021-02-19 Current [facility] 00:00:00 00:00:00 non-drinker of [facility] alcohol Branch (finding) Tobacco use and 2021-02-19 2021-02-19 Never used Universit y of exposure 00:00:00 00:00:00 [facility] Sex Assigned At [birth year] Universit y of 00:00:00 00:00:00 [facility] Smoking Status Start Date Stop Date Source Never smoker [facility] Medications Ordered Filled Start Stop Current Ordering Indication Dosage Frequency Signature Comments Components Source Medication Medication Date Date Medication? Clinician (SIG) Name Name Yes [id number] 1{tbl} Take 1 U nivers vitamin 6-05 tablet by ity of w/FA tablet 00:00: mouth [place] 00 daily. Medical Branch docusate Yes [id number] 240mg Take 1 Un radha calcium 240 6-05 capsule by it y of mg capsule 00:00: mouth once [place] 00 daily as Medical needed for Branch Constipati on. ferrous Yes [id number] 325mg Take 1 Uni vers sulfate 325 6-05 tablet by ity of mg (65 mg 00:00: mouth 2 [place] iron) 00 (two) Medical tablet times Branch daily. ibuprofen Yes [id number] 600mg Take 1 U nivers 600 mg 6-05 tablet by ity of tablet 00:00: mouth [place] 00 every 6 Medical (six) Branch hours as needed (Pain). Take with food or milk. 0 Yes [id number] 1{tbl} Take 1 U nivers vitamin 6-05 tablet by ity of w/FA tablet 00:00: mouth [place] 00 daily. Medical Branch docusate 0 Yes [id number] 240mg Take 1 Un radha calcium 240 6-05 capsule by it y of mg capsule 00:00: mouth once [place] 00 daily as Medical needed for Branch Constipati on. ferrous 2020-0 Yes [id number] 325mg Take 1 Uni vers sulfate 325 6-05 tablet by ity of mg (65 mg 00:00: mouth 2 [place] iron) 00 (two) Medical tablet times Branch daily. ibuprofen 0 Yes [id number] 600mg Take 1 U nivers 600 mg 6-05 tablet by ity of tablet 00:00: mouth [place] 00 every 6 Medical (six) Branch hours as needed (Pain). Take with food or milk. 0 Yes [id number] 1{tbl} Take 1 U nivers vitamin 6-05 tablet by ity of w/FA tablet 00:00: mouth [place] 00 daily. Medical Branch docusate 0 Yes [id number] 240mg Take 1 Un radha calcium 240 6-05 capsule by it y of mg capsule 00:00: mouth once [place] 00 daily as Medical needed for Branch Constipati on. ferrous 2020-0 Yes [id number] 325mg Take 1 Uni vers sulfate 325 6-05 tablet by ity of mg (65 mg 00:00: mouth 2 [place] iron) 00 (two) Medical tablet times Branch daily. ibuprofen 0 Yes [id number] 600mg Take 1 U nivers 600 mg 6-05 tablet by ity of tablet 00:00: mouth [place] 00 every 6 Medical (six) Branch hours as needed (Pain). Take with food or milk. potassium 2020-0 202- No 10meq 10 mEq, IV Univers chloride in 01-08 Piggyback, i ty of water 10 00:45: 00:50 ONCE, 1 [place] mEq/100 mL 00 :00 dose, Tubrandie Brown heather RTU 10 mEq 01/07/21 at [facility] 1945, 100 mL NaCl 0.9% 2020- No 500mL at 999 [facility] ers (NS) bolus 01-08- mL/hr, 500 it y of infusion 00:45: 23:46 mL, IV [place] 500 mL 00 :00 Infusion, Medical ONCE, 1 Branch dose, 01/07/21 at 1945, STAT butalbital- 2020- No 1{tbl} 1 tablet, Univers acetaminoph 01-07 Oral, ity of en-caff 22:45: 21:46 ONCE, 1 [place] (ESGIC) 00 :00 dose, [facility] Medical 50-325-40 01/07/21 at [facility] h mg tablet 1 174, tablet Routine lactated 2020- No 1000mL at 999 [facility] ers ringers IV 01-07 mL/hr, ity of infusion 22:45: 22:32 1,000 mL, [place] 1,000 mL 00 :00 IV Medical Infusion, Branch ONCE, 1 dose, 01/07/21 at 1745, STAT acetaminoph Yes [id number] 1{capsu Take 1 Univers en-caff-but 5-19 le} capsule by it y of albital 00:00: mouth [place] (ESGIC) per 00 every 6 Medic al capsule (six) Branch hours as needed for Pain. acetaminoph Yes [id number] 1{capsu Take 1 Univers en-caff-but 5-19 le} capsule by it y of albital 00:00: mouth [place] (ESGIC) per 00 every 6 Medic al capsule (six) Branch hours as needed for Pain. acetaminoph Yes [id number] 1{capsu Take 1 Univers en-caff-but 5-19 le} capsule by it y of albital 00:00: mouth [place] (ESGIC) per 00 every 6 Medic al capsule (six) Branch hours as needed for Pain. acetaminoph Yes [id number] 1{capsu Take 1 Univers en-caff-but 5-19 le} capsule by it y of albital 00:00: mouth [place] (ESGIC) per 00 every 6 Medic al capsule (six) Branch hours as needed for Pain. acetaminoph Yes [id number] 1{capsu Take 1 Univers en-caff-but 5-19 le} capsule by it y of albital 00:00: mouth [place] (ESGIC) per 00 every 6 Medic al capsule (six) Branch hours as needed for Pain. acetaminoph Yes [id number] 1{capsu Take 1 Univers en-caff-but 5-19 le} capsule by it y of albital 00:00: mouth [place] (ESGIC) per 00 every 6 Medic al capsule (six) Branch hours as needed for Pain. acetaminoph Yes [id number] 1{capsu Take 1 Univers en-caff-but 5-19 le} capsule by it y of albital 00:00: mouth [place] (ESGIC) per 00 every 6 Medic al capsule (six) Branch hours as needed for Pain. acetaminoph Yes [id number] 1{capsu Take 1 Univers en-caff-but 5-19 le} capsule by it y of albital 00:00: mouth [place] (ESGIC) per 00 every 6 Medic al capsule (six) Branch hours as needed for Pain. acetaminoph Yes [id number] 1{capsu Take 1 Univers en-caff-but 5-19 le} capsule by it y of albital 00:00: mouth [place] (ESGIC) per 00 every 6 Medic al capsule (six) Branch hours as needed for Pain. acetaminoph Yes [id number] 1{capsu Take 1 Univers en-caff-but 5-19 le} capsule by it y of albital 00:00: mouth [place] (ESGIC) per 00 every 6 Medic al capsule (six) Branch hours as needed for Pain. acetaminoph Yes [id number] 1{capsu Take 1 Univers en-caff-but 5-19 le} capsule by it y of albital 00:00: mouth [place] (ESGIC) per 00 every 6 Medic al capsule (six) Branch hours as needed for Pain. acetaminoph Yes [id number] 1{capsu Take 1 Univers en-caff-but 5-19 le} capsule by it y of albital 00:00: mouth [place] (ESGIC) per 00 every 6 Medic al capsule (six) Branch hours as needed for Pain. acetaminoph Yes [id number] 1{capsu Take 1 Univers en-caff-but 5-19 le} capsule by it y of albital 00:00: mouth [place] (ESGIC) per 00 every 6 Medic al capsule (six) Branch hours as needed for Pain. acetaminoph Yes [id number] 1{capsu Take 1 Univers en-caff-but 5-19 le} capsule by it y of albital 00:00: mouth [place] (ESGIC) per 00 every 6 Medic al capsule (six) Branch hours as needed for Pain. acetaminoph Yes [id number] 1{capsu Take 1 Univers en-caff-but 5-19 le} capsule by it y of albital 00:00: mouth [place] (ESGIC) per 00 every 6 Medic al capsule (six) Branch hours as needed for Pain. acetaminoph Yes [id number] 1{capsu Take 1 Univers en-caff-but 5-19 le} capsule by it y of albital 00:00: mouth [place] (ESGIC) per 00 every 6 Medic al capsule (six) Branch hours as needed for Pain. ferrous Yes [id number] 325mg Take 1 Un radha sulfate 325 3-08 tablet by ity of mg (65 mg 00:00: mouth 2 [place] iron) 00 (two) Medical tablet times Branch daily. ascorbic Yes [id number] 500mg Take 1 U nivers acid, 3-08 tablet by ity of vitamin C, 00:00: [place] 3 [place] 500 mg 00 (three) Medical tablet times Branch daily. ferrous Yes [id number] 325mg Take 1 Un radha sulfate 325 3-08 tablet by ity of mg (65 mg 00:00: mouth 2 [place] iron) 00 (two) Medical tablet times Branch daily. ascorbic Yes [id number] 500mg Take 1 U nivers acid, 3-08 tablet by ity of vitamin C, 00:00: mouth 3 [place] 500 mg 00 (three) Medical tablet times Branch daily. ferrous Yes [id number] 325mg Take 1 Un radha sulfate 325 3-08 tablet by ity of mg (65 mg 00:00: mouth 2 [place] iron) 00 (two) Medical tablet times Branch daily. ascorbic Yes [id number] 500mg Take 1 U nivers acid, 3-08 tablet by ity of vitamin C, 00:00: mouth 3 [place] 500 mg 00 (three) Medical tablet times Branch daily. ferrous Yes [id number] 325mg Take 1 Un radha sulfate 325 3-08 tablet by ity of mg (65 mg 00:00: mouth 2 [place] iron) 00 (two) Medical tablet times Branch daily. ascorbic Yes [id number] 500mg Take 1 U nivers acid, 3-08 tablet by ity of vitamin C, 00:00: mouth 3 [place] 500 mg 00 (three) Medical tablet times Branch daily. ferrous Yes [id number] 325mg Take 1 Un radha sulfate 325 3-08 tablet by ity of mg (65 mg 00:00: mouth 2 [place] iron) 00 (two) Medical tablet times Branch daily. ascorbic Yes [id number] 500mg Take 1 U nivers acid, 3-08 tablet by ity of vitamin C, 00:00: mouth 3 [place] 500 mg 00 (three) Medical tablet times Branch daily. ferrous Yes [id number] 325mg Take 1 Un radha sulfate 325 3-08 tablet by ity of mg (65 mg 00:00: mouth 2 [place] iron) 00 (two) Medical tablet times Branch daily. ascorbic Yes [id number] 500mg Take 1 U nivers acid, 3-08 tablet by ity of vitamin C, 00:00: mouth 3 [place] 500 mg 00 (three) Medical tablet times Branch daily. ferrous Yes [id number] 325mg Take 1 Un radha sulfate 325 3-08 tablet by ity of mg (65 mg 00:00: mouth 2 [place] iron) 00 (two) Medical tablet times Branch daily. ascorbic Yes [id number] 500mg Take 1 U nivers acid, 3-08 tablet by ity of vitamin C, 00:00: mouth 3 [place] 500 mg 00 (three) Medical tablet times Branch daily. ferrous Yes [id number] 325mg Take 1 Un radha sulfate 325 3-08 tablet by ity of mg (65 mg 00:00: mouth 2 [place] iron) 00 (two) Medical tablet times Branch daily. ascorbic Yes [id number] 500mg Take 1 U nivers acid, 3-08 tablet by ity of vitamin C, 00:00: mouth 3 [place] 500 mg 00 (three) Medical tablet times Branch daily. ferrous Yes [id number] 325mg Take 1 Un radha sulfate 325 3-08 tablet by ity of mg (65 mg 00:00: mouth 2 [place] iron) 00 (two) Medical tablet times Branch daily. ascorbic Yes [id number] 500mg Take 1 U nivers acid, 3-08 tablet by ity of vitamin C, 00:00: mouth 3 [place] 500 mg 00 (three) Medical tablet times Branch daily. ferrous Yes [id number] 325mg Take 1 Un radha sulfate 325 3-08 tablet by ity of mg (65 mg 00:00: mouth 2 [place] iron) 00 (two) Medical tablet times Branch daily. ascorbic Yes [id number] 500mg Take 1 U nivers acid, 3-08 tablet by ity of vitamin C, 00:00: mouth 3 [place] 500 mg 00 (three) Medical tablet times Branch daily. ferrous Yes [id number] 325mg Take 1 Un radha sulfate 325 3-08 tablet by ity of mg (65 mg 00:00: mouth 2 [place] iron) 00 (two) Medical tablet times Branch daily. ascorbic Yes [id number] 500mg Take 1 U nivers acid, 3-08 tablet by ity of vitamin C, 00:00: mouth 3 [place] 500 mg 00 (three) Medical tablet times Branch daily. ferrous Yes [id number] 325mg Take 1 Un radha sulfate 325 3-08 tablet by ity of mg (65 mg 00:00: mouth 2 [place] iron) 00 (two) Medical tablet times Branch daily. ascorbic Yes [id number] 500mg Take 1 U nivers acid, 3-08 tablet by ity of vitamin C, 00:00: mouth 3 [place] 500 mg 00 (three) Medical tablet times Branch daily. ferrous Yes [id number] 325mg Take 1 Un radha sulfate 325 3-08 tablet by ity of mg (65 mg 00:00: mouth 2 [place] iron) 00 (two) Medical tablet times Branch daily. ascorbic Yes [id number] 500mg Take 1 U nivers acid, 3-08 tablet by ity of vitamin C, 00:00: mouth 3 [place] 500 mg 00 (three) Medical tablet times Branch daily. ferrous Yes [id number] 325mg Take 1 Un radha sulfate 325 3-08 tablet by ity of mg (65 mg 00:00: mouth 2 [place] iron) 00 (two) Medical tablet times Branch daily. ascorbic Yes [id number] 500mg Take 1 U nivers acid, 3-08 tablet by ity of vitamin C, 00:00: mouth 3 [place] 500 mg 00 (three) Medical tablet times Branch daily. ferrous Yes [id number] 325mg Take 1 Un radha sulfate 325 3-08 tablet by ity of mg (65 mg 00:00: mouth 2 [place] iron) 00 (two) Medical tablet times Branch daily. ascorbic Yes [id number] 500mg Take 1 U nivers acid, 3-08 tablet by ity of vitamin C, 00:00: mouth 3 [place] 500 mg 00 (three) Medical tablet times Branch daily. ferrous Yes [id number] 325mg Take 1 Un radha sulfate 325 3-08 tablet by ity of mg (65 mg 00:00: mouth 2 [place] iron) 00 (two) Medical tablet times Branch daily. ascorbic Yes [id number] 500mg Take 1 U nivers acid, 3-08 tablet by ity of vitamin C, 00:00: mouth 3 [place] 500 mg 00 (three) Medical tablet times Branch daily. ferrous Yes [id number] 325mg Take 1 Un radha sulfate 325 3-08 tablet by ity of mg (65 mg 00:00: mouth 2 [place] iron) 00 (two) Medical tablet times Branch daily. ascorbic Yes [id number] 500mg Take 1 U nivers acid, 3-08 tablet by ity of vitamin C, 00:00: mouth 3 [place] 500 mg 00 (three) Medical tablet times Branch daily. ferrous Yes [id number] 325mg Take 1 Un radha sulfate 325 3-08 tablet by ity of mg (65 mg 00:00: mouth 2 [place] iron) 00 (two) Medical tablet times Branch daily. ascorbic Yes [id number] 500mg Take 1 U nivers acid, 3-08 tablet by ity of vitamin C, 00:00: mouth 3 [place] 500 mg 00 (three) Medical tablet times Branch daily. ferrous Yes [id number] 325mg Take 1 Un radha sulfate 325 3-08 tablet by ity of mg (65 mg 00:00: mouth 2 [place] iron) 00 (two) Medical tablet times Branch daily. ascorbic Yes [id number] 500mg Take 1 U nivers acid, 3-08 tablet by ity of vitamin C, 00:00: mouth 3 [place] 500 mg 00 (three) Medical tablet times Branch daily. ferrous Yes [id number] 325mg Take 1 Un radha sulfate 325 3-08 tablet by ity of mg (65 mg 00:00: mouth 2 [place] iron) 00 (two) Medical tablet times Branch daily. ascorbic Yes [id number] 500mg Take 1 U nivers acid, 3-08 tablet by ity of vitamin C, 00:00: mouth 3 [place] 500 mg 00 (three) Medical tablet times Branch daily. ferrous Yes [id number] 325mg Take 1 Un radha sulfate 325 3-08 tablet by ity of mg (65 mg 00:00: mouth 2 [place] iron) 00 (two) Medical tablet times Branch daily. ascorbic Yes [id number] 500mg Take 1 U nivers acid, 3-08 tablet by ity of vitamin C, 00:00: mouth 3 [place] 500 mg 00 (three) Medical tablet times Branch daily. ferrous Yes [id number] 325mg Take 1 Un radha sulfate 325 3-08 tablet by ity of mg (65 mg 00:00: mouth 2 [place] iron) 00 (two) Medical tablet times Branch daily. ascorbic Yes [id number] 500mg Take 1 U nivers acid, 3-08 tablet by ity of vitamin C, 00:00: mouth 3 [place] 500 mg 00 (three) Medical tablet times Branch daily. ferrous Yes [id number] 325mg Take 1 Un radha sulfate 325 3-08 tablet by ity of mg (65 mg 00:00: mouth 2 [place] iron) 00 (two) Medical tablet times Branch daily. ascorbic Yes [id number] 500mg Take 1 U nivers acid, 3-08 tablet by ity of vitamin C, 00:00: mouth 3 [place] 500 mg 00 (three) Medical tablet times Branch daily. ferrous Yes [id number] 325mg Take 1 Un radha sulfate 325 3-08 tablet by ity of mg (65 mg 00:00: mouth 2 [place] iron) 00 (two) Medical tablet times Branch daily. ascorbic Yes [id number] 500mg Take 1 U nivers acid, 3-08 tablet by ity of vitamin C, 00:00: mouth 3 [place] 500 mg 00 (three) Medical tablet times Branch daily. ferrous Yes [id number] 325mg Take 1 Un radha sulfate 325 3-08 tablet by ity of mg (65 mg 00:00: mouth 2 [place] iron) 00 (two) Medical tablet times Branch daily. ascorbic Yes [id number] 500mg Take 1 U nivers acid, 3-08 tablet by ity of vitamin C, 00:00: mouth 3 [place] 500 mg 00 (three) Medical tablet times Branch daily. ferrous Yes [id number] 325mg Take 1 Un radha sulfate 325 3-08 tablet by ity of mg (65 mg 00:00: mouth 2 [place] iron) 00 (two) Medical tablet times Branch daily. ascorbic Yes [id number] 500mg Take 1 U nivers acid, 3-08 tablet by ity of vitamin C, 00:00: mouth 3 [place] 500 mg 00 (three) Medical tablet times Branch daily. ferrous Yes [id number] 325mg Take 1 Un radha sulfate 325 3-08 tablet by ity of mg (65 mg 00:00: mouth 2 [place] iron) 00 (two) Medical tablet times Branch daily. ascorbic Yes [id number] 500mg Take 1 U nivers acid, 3-08 tablet by ity of vitamin C, 00:00: mouth 3 [place] 500 mg 00 (three) Medical tablet times Branch daily. ferrous Yes [id number] 325mg Take 1 Un radha sulfate 325 3-08 tablet by ity of mg (65 mg 00:00: mouth 2 [place] iron) 00 (two) Medical tablet times Branch daily. ascorbic Yes [id number] 500mg Take 1 U nivers acid, 3-08 tablet by ity of vitamin C, 00:00: mouth 3 [place] 500 mg 00 (three) Medical tablet times Branch daily. ferrous Yes [id number] 325mg Take 1 Un radha sulfate 325 3-08 tablet by ity of mg (65 mg 00:00: mouth 2 [place] iron) 00 (two) Medical tablet times Branch daily. ascorbic Yes [id number] 500mg Take 1 U nivers acid, 3-08 tablet by ity of vitamin C, 00:00: mouth 3 [place] 500 mg 00 (three) Medical tablet times Branch daily. ferrous Yes [id number] 325mg Take 1 Un radha sulfate 325 3-08 tablet by ity of mg (65 mg 00:00: mouth 2 [place] iron) 00 (two) Medical tablet times Branch daily. ascorbic Yes [id number] 500mg Take 1 U nivers acid, 3-08 tablet by ity of vitamin C, 00:00: mouth 3 [place] 500 mg 00 (three) Medical tablet times Branch daily. ferrous Yes [id number] 325mg Take 1 Un radha sulfate 325 3-08 tablet by [facility] of mg (65 mg 00:00: mouth 2 [place] iron) 00 (two) Medical tablet times Branch daily. ascorbic Yes [id number] 500mg Take 1 U nivers acid, 3-08 tablet by [facility] vitamin C, 00:00: mouth [place] 500 mg 00 (three) Medical tablet times Branch daily. ferrous Yes [id number] 325mg Take 1 Un radha sulfate 325 3-08 tablet by [facility]y of mg (65 mg 00:00: mouth 2 [place] iron) 00 (two) Medical tablet times Branch daily. ascorbic Yes [id number] 500mg Take 1 U nivers acid, 3-08 tablet by [facility] vitamin C, 00:00: mouth 3 [place] 500 mg 00 (three) Medical tablet times Branch daily. ferrous Yes [id number] 325mg Take 1 Un radha sulfate 325 3-08 tablet by ity of mg (65 mg 00:00: mouth 2 [place] iron) 00 (two) Medical tablet times Branch daily. ascorbic Yes [id number] 500mg Take 1 U nivers acid, 3-08 tablet by [facility] vitamin C, 00:00: mouth 3 [place] 500 mg 00 (three) Medical tablet times Branch daily. ferrous Yes [id number] 325mg Take 1 Un radha sulfate 325 3-08 tablet by ity of mg (65 mg 00:00: mouth 2 [place] iron) 00 (two) Medical tablet times Branch daily. ascorbic Yes [id number] 500mg Take 1 U nivers acid, 3-08 tablet by [facility] vitamin C, 00:00: mouth 3 [place] 500 mg 00 (three) Medical tablet times Branch daily. ferrous Yes [id number] 325mg Take 1 Un radha sulfate 325 3-08 tablet by ity of mg (65 mg 00:00: mouth 2 [place] iron) 00 (two) Medical tablet times Branch daily. ascorbic Yes [id number] 500mg Take 1 U nivers acid, 3-08 tablet by [facility] of vitamin C, 00:00: mouth 3 [place] 500 mg 00 (three) Medical tablet times Branch daily. ferrous Yes [id number] 325mg Take 1 Un radha sulfate 325 3-08 tablet by ity of mg (65 mg 00:00: mouth 2 [place] iron) 00 (two) Medical tablet times Branch daily. ascorbic Yes [id number] 500mg Take 1 U nivers acid, 3-08 tablet by [facility] of vitamin C, 00:00: mouth 3 [place] 500 mg 00 (three) Medical tablet times Branch daily. ferrous Yes [id number] 325mg Take 1 Un radha sulfate 325 3-08 tablet by ity of mg (65 mg 00:00: mouth 2 [place] iron) 00 (two) Medical tablet times Branch daily. ascorbic Yes [id number] 500mg Take 1 U nivers acid, 3-08 tablet by [facility] of vitamin C, 00:00: mouth 3 [place] 500 mg 00 (three) Medical tablet times Branch daily. ferrous Yes [id number] 325mg Take 1 Un radha sulfate 325 3-08 tablet by ity of mg (65 mg 00:00: mouth 2 [place] iron) 00 (two) Medical tablet times Branch daily. ascorbic Yes [id number] 500mg Take 1 U nivers acid, 3-08 tablet by [facility] vitamin C, 00:00: mouth 3 [place] 500 mg 00 (three) Medical tablet times [place] daily. fluconazole 2020- No [id number] 150mg Take 1 [facility] (DIFLUCAN) 10-14- tablet by it[facility] of 150 mg 00:00: 05:59 mouth [place] tablet 00 :00 now for 1 Medical dose. [place] fluconazole 2020- No [id number] 150mg Take 1 [facility] (DIFLUCAN) 10-14-09 tablet by it[facility] of 150 mg 00:00: 05:59 mouth [place] tablet 00 :00 now for 1 Medical dose. [place] fluconazole No [id number] 150mg Take 1 [facility] (DIFLUCAN) 10-14- tablet by ity of 150 mg 00:00: 05:59 mouth [place] tablet 00 :00 now for 1 Medical dose. [place] miconazole No [id number] 1{appli Insert 1 [facility] (MICONAZOLE 3-02 03-10 cator} Applicator ity of 7) 2 % 00:00: 05:59 into [place] vaginal 00 :00 vagina at [facility] for 7 days. miconazole 2020- No [id number] 1{appli Insert 1 [facility] (MICONAZOLE 3-02 03-10 cator} Applicator ity of 7) 2 % 00:00: 05:59 into [place] vaginal 00 :00 vagina at [facility] for 7 days. miconazole 2020- No [id number] 1{appli Insert 1 [facility] (MICONAZOLE 3-02 03-10 cator} Applicator ity of 7) 2 % 00:00: 05:59 into [place] vaginal 00 :00 vagina at [facility] for 7 days. miconazole No [id number] 1{appli Insert 1 [facility] (MICONAZOLE 3-02 03-10 cator} Applicator ity of 7) 2 % 00:00: 05:59 into [place] vaginal 00 :00 vagina at [facility] for 7 days. miconazole No [id number] 1{appli Insert 1 [facility] (MICONAZOLE 3-02 03-10 cator} Applicator ity of 7) 2 % 00:00: 05:59 into [place] vaginal 00 :00 vagina at [facility] for 7 days. miconazole 2020- No [id number] 1{appli Insert 1 [facility] (MICONAZOLE 3-02 03-10 cator} Applicator ity of 7) 2 % 00:00: 05:59 into [place] vaginal 00 :00 vagina at [facility] for 7 days. miconazole 2020- No [id number] 1{appli Insert 1 [facility] (MICONAZOLE 3-02 03-10 cator} Applicator ity of 7) 2 % 00:00: 05:59 into [place] vaginal 00 :00 vagina at [facility] for 7 days. miconazole 2020- No [id number] 1{appli Insert 1 [facility] (MICONAZOLE 3-02 03-10 cator} Applicator ity of 7) 2 % 00:00: 05:59 into [place] vaginal 00 :00 vagina at [facility] for 7 days. miconazole 2020- No [id number] 1{appli Insert 1 [facility] (MICONAZOLE 3-02 03-10 cator} Applicator ity of 7) 2 % 00:00: 05:59 into [place] vaginal 00 :00 vagina at [facility] for 7 days. miconazole 2020- No [id number] 1{appli Insert 1 [facility] (MICONAZOLE 3-02 03-10 cator} Applicator ity of 7) 2 % 00:00: 05:59 into [place] vaginal 00 :00 vagina at [facility] for 7 days. miconazole 2020- No [id number] 1{appli Insert 1 [facility] (MICONAZOLE 3-02 03-10 cator} Applicator ity of 7) 2 % 00:00: 05:59 into [place] vaginal 00 :00 vagina at [facility] for 7 days. miconazole 2020- No [id number] 1{appli Insert 1 [facility] (MICONAZOLE 3-02 03-10 cator} Applicator ity of 7) 2 % 00:00: 05:59 into [place] vaginal 00 :00 vagina at [facility] for 7 days. acetaminoph Yes [id number] 1{capsu Take 1 [facility] en-caff-but 1-15 le} capsule by it y of albital 00:00: mouth [place] (ESGIC) per 00 every 6 Medic al capsule (six) Branch hours as needed for Pain. acetaminoph Yes [id number] 1{capsu Take 1 [facility] en-caff-but 1-15 le} capsule by it y of albital 00:00: mouth [place] (ESGIC) per 00 every 6 Medic al capsule (six) Branch hours as needed for Pain. acetaminoph Yes [id number] 1{capsu Take 1 [facility] en-caff-but 1-15 le} capsule by it y of albital 00:00: mouth [place] (ESGIC) per 00 every 6 Medic al capsule (six) Branch hours as needed for Pain. acetaminoph Yes [id number] 1{capsu Take 1 [facility] en-caff-but 1-15 le} capsule by it y of albital 00:00: mouth [place] (ESGIC) per 00 every 6 Medic al capsule (six) Branch hours as needed for Pain. acetaminoph Yes [id number] 1{capsu Take 1 [facility] en-caff-but 1-15 le} capsule by it y of albital 00:00: mouth [place] (ESGIC) per 00 every 6 Medic al capsule (six) Branch hours as needed for Pain. acetaminoph Yes [id number] 1{capsu Take 1 [facility] en-caff-but 1-15 le} capsule by it y of albital 00:00: mouth [place] (ESGIC) per 00 every 6 Medic al capsule (six) Branch hours as needed for Pain. acetaminoph Yes [id number] 1{capsu Take 1 [facility] en-caff-but 1-15 le} capsule by it y of albital 00:00: mouth [place] (ESGIC) per 00 every 6 Medic al capsule (six) Branch hours as needed for Pain. acetaminoph Yes [id number] 1{capsu Take 1 [facility] en-caff-but 1-15 le} capsule by it y of albital 00:00: mouth [place] (ESGIC) per 00 every 6 Medic al capsule (six) Branch hours as needed for Pain. acetaminoph Yes [id number] 1{capsu Take 1 [facility] en-caff-but 1-15 le} capsule by it y of albital 00:00: mouth [place] (ESGIC) per 00 every 6 Medic al capsule (six) Branch hours as needed for Pain. acetaminoph Yes [id number] 1{capsu Take 1 [facility] en-caff-but 1-15 le} capsule by it y of albital 00:00: mouth [place] (ESGIC) per 00 every 6 Medic al capsule (six) Branch hours as needed for Pain. acetaminoph Yes [id number] 1{capsu Take 1 [facility] en-caff-but 1-15 le} capsule by it y of albital 00:00: mouth [place] (ESGIC) per 00 every 6 Medic al capsule (six) Branch hours as needed for Pain. acetaminoph Yes [id number] 1{capsu Take 1 [facility] en-caff-but 1-15 le} capsule by it y of albital 00:00: mouth [place] (ESGIC) per 00 every 6 Medic al capsule (six) Branch hours as needed for Pain. acetaminoph Yes [id number] 1{capsu Take 1 [facility] en-caff-but 1-15 le} capsule by it y of albital 00:00: mouth [place] (ESGIC) per 00 every 6 Medic al capsule (six) Branch hours as needed for Pain. acetaminoph Yes [id number] 1{capsu Take 1 [facility] en-caff-but 1-15 le} capsule by it y of albital 00:00: mouth [place] (ESGIC) per 00 every 6 Medic al capsule (six) Branch hours as needed for Pain. acetaminoph Yes [id number] 1{capsu Take 1 [facility] en-caff-but 1-15 le} capsule by it y of albital 00:00: mouth [place] (ESGIC) per 00 every 6 Medic al capsule (six) Branch hours as needed for Pain. acetaminoph Yes [id number] 1{capsu Take 1 [facility] en-caff-but 1-15 le} capsule by it y of albital 00:00: mouth [place] (ESGIC) per 00 every 6 Medic al capsule (six) Branch hours as needed for Pain. acetaminoph Yes [id number] 1{capsu Take 1 [facility] en-caff-but 1-15 le} capsule by it y of albital 00:00: mouth [place] (ESGIC) per 00 every 6 Medic al capsule (six) Branch hours as needed for Pain. acetaminoph Yes [id number] 1{capsu Take 1 [facility] en-caff-but 1-15 le} capsule by it y of albital 00:00: mouth [place] (ESGIC) per 00 every 6 Medic al capsule (six) Branch hours as needed for Pain. acetaminoph Yes [id number] 1{capsu Take 1 [facility] en-caff-but 1-15 le} capsule by it y of albital 00:00: mouth [place] (ESGIC) per 00 every 6 Medic al capsule (six) Branch hours as needed for Pain. acetaminoph Yes [id number] 1{capsu Take 1 [facility] en-caff-but 1-15 le} capsule by it y of albital 00:00: mouth [place] (ESGIC) per 00 every 6 Medic al capsule (six) Branch hours as needed for Pain. acetaminoph Yes [id number] 1{capsu Take 1 [facility] en-caff-but 1-15 le} capsule by it y of albital 00:00: mouth [place] (ESGIC) per 00 every 6 Medic al capsule (six) Branch hours as needed for Pain. acetaminoph Yes [id number] 1{capsu Take 1 [facility] en-caff-but 1-15 le} capsule by it y of albital 00:00: mouth [place] (ESGIC) per 00 every 6 Medic al capsule (six) Branch hours as needed for Pain. acetaminoph Yes [id number] 1{capsu Take 1 [facility] en-caff-but 1-15 le} capsule by it y of albital 00:00: mouth [place] (ESGIC) per 00 every 6 Medic al capsule (six) Branch hours as needed for Pain. acetaminoph Yes [id number] 1{capsu Take 1 [facility] en-caff-but 1-15 le} capsule by it y of albital 00:00: mouth [place] (ESGIC) per 00 every 6 Medic al capsule (six) Branch hours as needed for Pain. acetaminoph Yes [id number] 1{capsu Take 1 [facility] en-caff-but 1-15 le} capsule by it y of albital 00:00: mouth [place] (ESGIC) per 00 every 6 Medic al capsule (six) Branch hours as needed for Pain. acetaminoph Yes [id number] 1{capsu Take 1 [facility] en-caff-but 1-15 le} capsule by it y of albital 00:00: mouth [place] (ESGIC) per 00 every 6 Medic al capsule (six) Branch hours as needed for Pain. acetaminoph Yes [id number] 1{capsu Take 1 [facility] en-caff-but 1-15 le} capsule by it y of albital 00:00: mouth [place] (ESGIC) per 00 every 6 Medic al capsule (six) Branch hours as needed for Pain. acetaminoph Yes [id number] 1{capsu Take 1 [facility] en-caff-but 1-15 le} capsule by it y of albital 00:00: mouth [place] (ESGIC) per 00 every 6 Medic al capsule (six) Branch hours as needed for Pain. acetaminoph Yes [id number] 1{capsu Take 1 [facility] en-caff-but 1-15 le} capsule by it y of albital 00:00: mouth [place] (ESGIC) per 00 every 6 Medic al capsule (six) Branch hours as needed for Pain. acetaminoph Yes [id number] 1{capsu Take 1 [facility] en-caff-but 1-15 le} capsule by it y of albital 00:00: mouth [place] (ESGIC) per 00 every 6 Medic al capsule (six) Branch hours as needed for Pain. acetaminoph Yes [id number] 1{capsu Take 1 [facility] en-caff-but 1-15 le} capsule by it y of albital 00:00: mouth [place] (ESGIC) per 00 every 6 Medic al capsule (six) Branch hours as needed for Pain. acetaminoph Yes [id number] 1{capsu Take 1 [facility] en-caff-but 1-15 le} capsule by it y of albital 00:00: mouth [place] (ESGIC) per 00 every 6 Medic al capsule (six) Branch hours as needed for Pain. acetaminoph Yes [id number] 1{capsu Take 1 [facility] en-caff-but 1-15 le} capsule by it y of albital 00:00: mouth [place] (ESGIC) per 00 every 6 Medic al capsule (six) Branch hours as needed for Pain. acetaminoph Yes [id number] 1{capsu Take 1 [facility] en-caff-but 1-15 le} capsule by it y of albital 00:00: mouth [place] (ESGIC) per 00 every 6 Medic al capsule (six) Branch hours as needed for Pain. acetaminoph Yes [id number] 1{capsu Take 1 [facility] en-caff-but 1-15 le} capsule by it y of albital 00:00: mouth [place] (ESGIC) per 00 every 6 Medic al capsule (six) Branch hours as needed for Pain. acetaminoph Yes [id number] 1{capsu Take 1 [facility] en-caff-but 1-15 le} capsule by it y of albital 00:00: mouth [place] (ESGIC) per 00 every 6 Medic al capsule (six) Branch hours as needed for Pain. acetaminoph Yes [id number] 1{capsu Take 1 [facility] en-caff-but 1-15 le} capsule by it y of albital 00:00: mouth [place] (ESGIC) per 00 every 6 Medic al capsule (six) Branch hours as needed for Pain. acetaminoph Yes [id number] 1{capsu Take 1 [facility] en-caff-but 1-15 le} capsule by it y of albital 00:00: mouth [place] (ESGIC) per 00 every 6 Medic al capsule (six) Branch hours as needed for Pain. acetaminoph Yes [id number] 1{capsu Take 1 [facility] en-caff-but 1-15 le} capsule by it y of albital 00:00: mouth [place] (ESGIC) per 00 every 6 Medic al capsule (six) Branch hours as needed for Pain. acetaminoph Yes [id number] 1{capsu Take 1 [facility] en-caff-but 1-15 le} capsule by it y of albital 00:00: mouth [place] (ESGIC) per 00 every 6 Medic al capsule (six) Branch hours as needed for Pain. acetaminoph Yes [id number] 1{capsu Take 1 [facility] en-caff-but 1-15 le} capsule by it y of albital 00:00: mouth [place] (ESGIC) per 00 every 6 Medic al capsule (six) Branch hours as needed for Pain. acetaminoph Yes [id number] 1{capsu Take 1 [facility] en-caff-but 1-15 le} capsule by it y of albital 00:00: mouth [place] (ESGIC) per 00 every 6 Medic al capsule (six) Branch hours as needed for Pain. acetaminoph Yes [id number] 1{capsu Take 1 [facility] en-caff-but 1-15 le} capsule by it y of albital 00:00: mouth [place] (ESGIC) per 00 every 6 Medic al capsule (six) Branch hours as needed for Pain. acetaminoph Yes [id number] 1{capsu Take 1 [facility] en-caff-but 1-15 le} capsule by it y of albital 00:00: mouth [place] (ESGIC) per 00 every 6 Medic al capsule (six) Branch hours as needed for Pain. acetaminoph Yes [id number] 1{capsu Take 1 [facility] en-caff-but 1-15 le} capsule by it y of albital 00:00: mouth [place] (ESGIC) per 00 every 6 Medic al capsule (six) Branch hours as needed for Pain. acetaminoph Yes [id number] 1{capsu Take 1 [facility] en-caff-but 1-15 le} capsule by it y of albital 00:00: mouth [place] (ESGIC) per 00 every 6 Medic al capsule (six) Branch hours as needed for Pain. acetaminoph Yes [id number] 1{capsu Take 1 [facility] en-caff-but 1-15 le} capsule by it y of albital 00:00: mouth [place] (ESGIC) per 00 every 6 Medic al capsule (six) Branch hours as needed for Pain. acetaminoph Yes [id number] 1{capsu Take 1 [facility] en-caff-but 1-15 le} capsule by it y of albital 00:00: mouth [place] (ESGIC) per 00 every 6 Medic al capsule (six) Branch hours as needed for Pain. acetaminoph Yes [id number] 1{capsu Take 1 [facility] en-caff-but 1-15 le} capsule by it y of albital 00:00: mouth [place] (ESGIC) per 00 every 6 Medic al capsule (six) Branch hours as needed for Pain. acetaminoph Yes [id number] 1{capsu Take 1 [facility] en-caff-but 1-15 le} capsule by it y of albital 00:00: mouth [place] (ESGIC) per 00 every 6 Medic al capsule (six) Branch hours as needed for Pain. aspirin 81 2019- Yes [id number] 81mg Take 1 [facility] mg EC 2-21 tablet by ity of tablet 00:00: mouth [place] 00 daily. Medical Branch aspirin 81 2019- Yes [id number] 81mg Take 1 [facility] mg EC 2-21 tablet by ity of tablet 00:00: mouth [place] 00 daily. Medical Branch aspirin 81 2019- Yes [id number] 81mg Take 1 [facility] mg EC 2-21 tablet by ity of tablet 00:00: mouth [place] 00 daily. Medical Branch aspirin 81 2019- Yes [id number] 81mg Take 1 [facility] mg EC 2-21 tablet by ity of tablet 00:00: mouth [place] 00 daily. Medical Branch aspirin 81 2019- Yes [id number] 81mg Take 1 [facility] mg EC 2-21 tablet by ity of tablet 00:00: mouth [place] 00 daily. Medical Branch aspirin 81 2019- Yes [id number] 81mg Take 1 [facility] mg EC 2-21 tablet by ity of tablet 00:00: mouth [place] 00 daily. Medical Branch aspirin 81 2019- Yes [id number] 81mg Take 1 [facility] mg EC 2-21 tablet by ity of tablet 00:00: mouth [place] 00 daily. Medical Branch aspirin 81 2019- Yes [id number] 81mg Take 1 [facility] mg EC 2-21 tablet by ity of tablet 00:00: mouth [place] 00 daily. Medical Branch aspirin 81 2020- Yes [id number] 81mg Take 1 [facility] mg EC 2-21 tablet by ity of tablet 00:00: mouth [place] 00 daily. Medical Branch aspirin 81 2019- Yes [id number] 81mg Take 1 [facility] mg EC 2-21 tablet by ity of tablet 00:00: mouth [place] 00 daily. Medical Branch aspirin 81 2019- Yes [id number] 81mg Take 1 [facility] mg EC 2-21 tablet by ity of tablet 00:00: mouth [place] 00 daily. Medical Branch aspirin 81 2019- Yes [id number] 81mg Take 1 [facility] mg EC 2-21 tablet by ity of tablet 00:00: mouth [place] 00 daily. Medical Branch aspirin 81 2019- Yes [id number] 81mg Take 1 [facility] mg EC 2-21 tablet by ity of tablet 00:00: mouth [place] 00 daily. Medical Branch aspirin 81 2019- Yes [id number] 81mg Take 1 [facility] mg EC 2-21 tablet by ity of tablet 00:00: mouth [place] 00 daily. Medical Branch aspirin 81 2019- Yes [id number] 81mg Take 1 [facility] mg EC 2-21 tablet by ity of tablet 00:00: mouth [place] 00 daily. Medical Branch aspirin 81 2019- Yes [id number] 81mg Take 1 [facility] mg EC 2-21 tablet by ity of tablet 00:00: mouth [place] 00 daily. Medical Branch aspirin 81 2019- Yes [id number] 81mg Take 1 [facility] mg EC 2-21 tablet by ity of tablet 00:00: mouth [place] 00 daily. Medical Branch aspirin 81 2019- Yes [id number] 81mg Take 1 [facility] mg EC 2-21 tablet by ity of tablet 00:00: mouth [place] 00 daily. Medical Branch aspirin 81 2019- Yes [id number] 81mg Take 1 [facility] mg EC 2-21 tablet by ity of tablet 00:00: mouth [place] 00 daily. Medical Branch aspirin 81 2019- Yes [id number] 81mg Take 1 [facility] mg EC 2-21 tablet by ity of tablet 00:00: mouth [place] 00 daily. Medical Branch aspirin 81 2019- Yes [id number] 81mg Take 1 [facility] mg EC 2-21 tablet by ity of tablet 00:00: mouth [place] 00 daily. Medical Branch aspirin 81 2020- Yes [id number] 81mg Take 1 [facility] mg EC 2-21 tablet by ity of tablet 00:00: mouth [place] 00 daily. Medical Branch aspirin 81 2020- Yes [id number] 81mg Take 1 [facility] mg EC 2-21 tablet by ity of tablet 00:00: mouth [place] 00 daily. Medical Branch aspirin 81 2019- Yes [id number] 81mg Take 1 [facility] mg EC 2-21 tablet by ity of tablet 00:00: mouth [place] 00 daily. Medical Branch aspirin 81 2019- Yes [id number] 81mg Take 1 [facility] mg EC 2-21 tablet by ity of tablet 00:00: mouth [place] 00 daily. Medical Branch aspirin 81 2019- Yes [id number] 81mg Take 1 [facility] mg EC 2-21 tablet by ity of tablet 00:00: mouth [place] 00 daily. Medical Branch aspirin 81 2019- Yes [id number] 81mg Take 1 [facility] mg EC 2-21 tablet by ity of tablet 00:00: mouth [place] 00 daily. Medical Branch aspirin 81 2019- Yes [id number] 81mg Take 1 [facility] mg EC 2-21 tablet by ity of tablet 00:00: mouth [place] 00 daily. Medical Branch aspirin 81 2019- Yes [id number] 81mg Take 1 [facility] mg EC 2-21 tablet by ity of tablet 00:00: mouth [place] 00 daily. Medical Branch aspirin 81 2019- Yes [id number] 81mg Take 1 [facility] mg EC 2-21 tablet by ity of tablet 00:00: mouth [place] 00 daily. Medical Branch aspirin 81 2019- Yes [id number] 81mg Take 1 [facility] mg EC 2-21 tablet by ity of tablet 00:00: mouth [place] 00 daily. Medical Branch aspirin 81 2019- Yes [id number] 81mg Take 1 [facility] mg EC 2-21 tablet by ity of tablet 00:00: mouth [place] 00 daily. Medical Branch aspirin 81 2019- Yes [id number] 81mg Take 1 [facility] mg EC 2-21 tablet by ity of tablet 00:00: mouth [place] 00 daily. Medical Branch aspirin 81 2019- Yes [id number] 81mg Take 1 [facility] mg EC 2-21 tablet by ity of tablet 00:00: mouth [place] 00 daily. Medical Branch aspirin 81 2019- Yes [id number] 81mg Take 1 [facility] mg EC 2-21 tablet by ity of tablet 00:00: mouth [place] 00 daily. Medical Branch aspirin 81 2020- Yes [id number] 81mg Take 1 [facility] mg EC 2-21 tablet by ity of tablet 00:00: mouth [place] 00 daily. Medical Branch aspirin 81 2019- Yes [id number] 81mg Take 1 [facility] mg EC 2-21 tablet by ity of tablet 00:00: mouth [place] 00 daily. Medical Branch aspirin 81 2019- Yes [id number] 81mg Take 1 [facility] mg EC 2-21 tablet by ity of tablet 00:00: mouth [place] 00 daily. Medical Branch aspirin 81 2019- Yes [id number] 81mg Take 1 [facility] mg EC 2-21 tablet by ity of tablet 00:00: mouth [place] 00 daily. Medical Branch aspirin 81 2019- Yes [id number] 81mg Take 1 [facility] mg EC 2-21 tablet by ity of tablet 00:00: mouth [place] 00 daily. Medical Branch aspirin 81 2019- Yes [id number] 81mg Take 1 [facility] mg EC 2-21 tablet by ity of tablet 00:00: mouth [place] 00 daily. Medical Branch aspirin 81 2019- Yes [id number] 81mg Take 1 [facility] mg EC 2-21 tablet by ity of tablet 00:00: mouth [place] 00 daily. Medical Branch aspirin 81 2019- Yes [id number] 81mg Take 1 [facility] mg EC 2-21 tablet by ity of tablet 00:00: mouth [place] 00 daily. Medical Branch aspirin 81 2019- Yes [id number] 81mg Take 1 [facility] mg EC 2-21 tablet by ity of tablet 00:00: mouth [place] 00 daily. Medical Branch aspirin 81 2019- Yes [id number] 81mg Take 1 [facility] mg EC 2-21 tablet by ity of tablet 00:00: mouth [place] 00 daily. Medical Branch aspirin 81 2019- Yes [id number] 81mg Take 1 [facility] mg EC 2-21 tablet by ity of tablet 00:00: mouth [place] 00 daily. Medical Branch aspirin 81 2019- Yes [id number] 81mg Take 1 [facility] mg EC 2-21 tablet by ity of tablet 00:00: mouth [place] 00 daily. Medical Branch aspirin 81 2019- Yes [id number] 81mg Take 1 [facility] mg EC 2-21 tablet by ity of tablet 00:00: mouth [place] 00 daily. Medical Branch aspirin 81 2019- Yes [id number] 81mg Take 1 [facility] mg EC 2-21 tablet by ity of tablet 00:00: mouth [place] 00 daily. Medical Branch aspirin 81 2020- Yes [id number] 81mg Take 1 [facility] mg EC 2-21 tablet by ity of tablet 00:00: mouth [place] 00 daily. Medical Branch aspirin 81 2019- Yes [id number] 81mg Take 1 [facility] mg EC 2-21 tablet by ity of tablet 00:00: mouth [place] 00 daily. Medical Branch escitalopra 2019-08 Yes [id number] 10mg Take 1 [facility] m oxalate 1-09 tablet by ity o f (LEXAPRO) 00:00: mouth [place] 10 mg 00 daily. Medical tablet Branch hydrOXYzine 2019-08 Yes [id number] 25mg Take 1 [facility] 25 mg 1-09 tablet by ity of tablet 00:00: mouth [place] 00 every 6 Medical (six) Branch hours as needed for Anxiety. doxylamine- 2019-08 Yes [id number] 2{tbl} Take 2 [facility] pyridoxine, 1-09 tablets by it y of vit B6, 00:00: mouth at [place] (DICLEGIS) 00 bedtime. Medic al 10-10 mg Branch per tablet escitalopra 2019-08 Yes [id number] 10mg Take 1 [facility] m oxalate 1-09 tablet by ity o f (LEXAPRO) 00:00: mouth [place] 10 mg 00 daily. Medical tablet Branch hydrOXYzine 2019-08 Yes [id number] 25mg Take 1 [facility] 25 mg 1-09 tablet by ity of tablet 00:00: mouth [place] 00 every 6 Medical (six) Branch hours as needed for Anxiety. doxylamine- 2019-08 Yes [id number] 2{tbl} Take 2 [facility] pyridoxine, 1-09 tablets by it y of vit B6, 00:00: mouth at [place] (DICLEGIS) 00 bedtime. Medic al 10-10 mg Branch per tablet escitalopra 2019-08 Yes [id number] 10mg Take 1 [facility] m oxalate 1-09 tablet by ity o f (LEXAPRO) 00:00: mouth [place] 10 mg 00 daily. Medical tablet Branch hydrOXYzine 2019-08 Yes [id number] 25mg Take 1 [facility] 25 mg 1-09 tablet by ity of tablet 00:00: mouth [place] 00 every 6 Medical (six) Branch hours as needed for Anxiety. doxylamine- 2019-08 Yes [id number] 2{tbl} Take 2 [facility] pyridoxine, 1-09 tablets by it y of vit B6, 00:00: mouth at [place] (DICLEGIS) 00 bedtime. Medic al 10-10 mg Branch per tablet escitalopra 2019-08 Yes [id number] 10mg Take 1 [facility] m oxalate 1-09 tablet by ity o f (LEXAPRO) 00:00: mouth [place] 10 mg 00 daily. Medical tablet Branch hydrOXYzine 2019-08 Yes [id number] 25mg Take 1 [facility] 25 mg 1-09 tablet by ity of tablet 00:00: mouth [place] 00 every 6 Medical (six) Branch hours as needed for Anxiety. doxylamine- 2019-08 Yes [id number] 2{tbl} Take 2 [facility] pyridoxine, 1-09 tablets by it y of vit B6, 00:00: mouth at [place] (DICLEGIS) 00 bedtime. Medic al 10-10 mg Branch per tablet escitalopra 2019-08 Yes [id number] 10mg Take 1 [facility] m oxalate 1-09 tablet by ity o f (LEXAPRO) 00:00: mouth [place] 10 mg 00 daily. Medical tablet Branch hydrOXYzine 2019-08 Yes [id number] 25mg Take 1 [facility] 25 mg 1-09 tablet by ity of tablet 00:00: mouth [place] 00 every 6 Medical (six) Branch hours as needed for Anxiety. doxylamine- 2019-08 Yes [id number] 2{tbl} Take 2 [facility] pyr[facility], 1-09 tablets by [facility] y of vit B6, 00:00: mouth at [place] ([facility]) 00 bedtime. [facility] al 10-10 mg Branch per tablet escitalopra 2019-08 Yes [id number] 10mg Take 1 [facility] m oxalate 1-09 tablet by ity o f (LEXAPRO) 00:00: mouth [place] 10 mg 00 daily. Medical tablet Branch hydrOXYzine 2019-08 Yes [id number] 25mg Take 1 [facility] 25 mg 1-09 tablet by [facility]y of tablet 00:00: mouth [place] 00 every 6 Medical (six) Branch hours as needed for Anxiety. doxylamine- 2019-08 Yes [id number] 2{tbl} Take 2 [facility] pyridoxine, 1-09 tablets by [facility] of vit B6, 00:00: mouth at [place] ([facility]) 00 bedtime. Medic al 10-10 mg Branch per tablet escitalopra 2019-08 Yes [id number] 10mg Take 1 [facility] m oxalate 1-09 tablet by ity o f (LEXAPRO) 00:00: mouth [place] 10 mg 00 daily. Medical tablet Branch hydrOXYzine 2019-08 Yes [id number] 25mg Take 1 [facility] 25 mg 1-09 tablet by [facility] of tablet 00:00: mouth [place] 00 every 6 Medical (six) Branch hours as needed for Anxiety. doxylamine- 2019-08 Yes [id number] 2{tbl} Take 2 [facility] pyridoxine, 1-09 tablets by [facility] y of vit B6, 00:00: mouth at [place] ([facility]) 00 bedtime. Medic al 10-10 mg Branch per tablet escitalopra 2019-08 Yes [id number] 10mg Take 1 [facility] m oxalate 1-09 tablet by [facility]y o f (LEXAPRO) 00:00: mouth [place] 10 mg 00 daily. Medical tablet Branch hydrOXYzine 2019-08 Yes [id number] 25mg Take 1 [facility] 25 mg 1-09 tablet by [facility] of tablet 00:00: mouth [place] 00 every 6 Medical (six) Branch hours as needed for Anxiety. doxylamine- 2019-08 Yes [id number] 2{tbl} Take 2 [facility] pyridoxine, 1-09 tablets by it y of vit B6, 00:00: mouth at [place] ([facility]) 00 bedtime. Medic al 10-10 mg Branch per tablet escitalopra 2019-08 Yes [id number] 10mg Take 1 [facility] m oxalate 1-09 tablet by ity o f (LEXAPRO) 00:00: mouth [place] 10 mg 00 daily. Medical tablet Branch hydrOXYzine 2019-08 Yes [id number] 25mg Take 1 [facility] 25 mg 1-09 tablet by [facility] of tablet 00:00: mouth [place] 00 every 6 Medical (six) Branch hours as needed for Anxiety. doxylamine- 2019-08 Yes [id number] 2{tbl} Take 2 [facility] pyridoxine, 1-09 tablets by it y of vit B6, 00:00: mouth at [place] ([facility]) 00 bedtime. Medic al 10-10 mg Branch per tablet escitalopra 2019-08 Yes [id number] 10mg Take 1 [facility] oxalate 1-09 tablet by [facility]y o f (LEXAPRO) 00:00: mouth [place] 10 mg 00 daily. Medical tablet Branch hydrOXYzine 2019-08 Yes [id number] 25mg Take 1 [facility] 25 mg 1-09 tablet by [facility] of tablet 00:00: mouth [place] 00 every 6 Medical (six) Branch hours as needed for Anxiety. doxylamine- 2019-08 Yes [id number] 2{tbl} Take 2 [facility] pyridoxine, 1-09 tablets by [facility] y of vit B6, 00:00: mouth at [place] ([facility]) 00 bedtime. Medic al 10-10 mg Branch per tablet escitalopra 2019- Yes [id number] 10mg Take 1 [facility] m oxalate 1-09 tablet by it[facility] o f (LEXAPRO) 00:00: mouth [place] 10 mg 00 daily. Medical tablet Branch hydrOXYzine 2019-08 Yes [id number] 25mg Take 1 [facility] 25 mg 1-09 tablet by it[facility] of tablet 00:00: mouth [place] 00 every 6 Medical (six) Branch hours as needed for Anxiety. doxylamine- 2019-08 Yes [id number] 2{tbl} Take 2 [facility] pyridoxine, 1-09 tablets by it y of vit B6, 00:00: mouth at [place] ([facility]) 00 bedtime. Medic al 10-10 mg Branch per tablet escitalopra 2019-08 Yes [id number] 10mg Take 1 [facility] m oxalate 1-09 tablet by ity o f (LEXAPRO) 00:00: mouth [place] 10 mg 00 daily. Medical tablet Branch hydrOXYzine 2019-08 Yes [id number] 25mg Take 1 [facility] 25 mg 1-09 tablet by it[facility] of tablet 00:00: mouth [place] 00 every 6 Medical (six) Branch hours as needed for Anxiety. doxylamine- 2019-08 Yes [id number] 2{tbl} Take 2 [facility] pyridoxine, 1-09 tablets by it y of vit B6, 00:00: mouth at [place] ([facility]) 00 bedtime. Medic al 10-10 mg Branch per tablet escitalopra 2019-08 Yes [id number] 10mg Take 1 [facility] m oxalate 1-09 tablet by ity o f (LEXAPRO) 00:00: mouth [place] 10 mg 00 daily. Medical tablet Branch hydrOXYzine 2019-08 Yes [id number] 25mg Take 1 [facility] 25 mg 1-09 tablet by ity of tablet 00:00: mouth [place] 00 every 6 Medical (six) Branch hours as needed for Anxiety. doxylamine- 2019-08 Yes [id number] 2{tbl} Take 2 [facility] pyridoxine, 1-09 tablets by it y of vit B6, 00:00: mouth at [place] ([facility]) 00 bedtime. Medic al 10-10 mg Branch per tablet escitalopra 2019-08 Yes [id number] 10mg Take 1 [facility] m oxalate 1-09 tablet by ity o f (LEXAPRO) 00:00: mouth [place] 10 mg 00 daily. Medical tablet Branch hydrOXYzine 2019-08 Yes [id number] 25mg Take 1 [facility] 25 mg 1-09 tablet by ity of tablet 00:00: mouth [place] 00 every 6 Medical (six) Branch hours as needed for Anxiety. doxylamine- 2019-08 Yes [id number] 2{tbl} Take 2 [facility] pyridoxine, 1-09 tablets by it y of vit B6, 00:00: mouth at [place] ([facility]) 00 bedtime. Medic al 10-10 mg Branch per tablet escitalopra 2019-08 Yes [id number] 10mg Take 1 [facility] m oxalate 1-09 tablet by ity o f (LEXAPRO) 00:00: mouth [place] 10 mg 00 daily. Medical tablet Branch hydrOXYzine 2019-08 Yes [id number] 25mg Take 1 [facility] 25 mg 1-09 tablet by ity of tablet 00:00: mouth [place] 00 every 6 Medical (six) Branch hours as needed for Anxiety. doxylamine- 2019-08 Yes [id number] 2{tbl} Take 2 [facility] pyridoxine, 1-09 tablets by it y of vit B6, 00:00: mouth at [place] ([facility]) 00 bedtime. Medic al 10-10 mg Branch per tablet escitalopra 2019-08 Yes [id number] 10mg Take 1 [facility] m oxalate 1-09 tablet by ity o f (LEXAPRO) 00:00: mouth [place] 10 mg 00 daily. Medical tablet Branch hydrOXYzine 2019-08 Yes [id number] 25mg Take 1 [facility] 25 mg 1-09 tablet by ity of tablet 00:00: mouth [place] 00 every 6 Medical (six) Branch hours as needed for Anxiety. doxylamine- 2019-08 Yes [id number] 2{tbl} Take 2 [facility] pyridoxine, 1-09 tablets by it y of vit B6, 00:00: mouth at [place] ([facility]) 00 bedtime. Medic al 10-10 mg Branch per tablet doxylamine- 2019-08 Yes [id number] 2{tbl} Take 2 [facility] pyridoxine, 1-09 tablets by it y of vit B6, 00:00: mouth at [place] ([facility]) 00 bedtime. Medic al 10-10 mg Branch per tablet doxylamine- 2020- Yes [id number] 2{tbl} Take 2 [facility] pyridoxine, 1-09 tablets by it y of vit B6, 00:00: mouth at [facility] 00 bedtime. Medic al 10-10 mg Branch per tablet doxylamine- 2020- Yes [id number] 2{tbl} Take 2 [facility] pyridoxine, 1-09 tablets by it y of vit B6, 00:00: mouth at [facility] 00 bedtime. Medic al 10-10 mg Branch per tablet doxylamine- 2020- Yes [id number] 2{tbl} Take 2 [facility] pyridoxine, 1-09 tablets by it y of vit B6, 00:00: mouth at [facility] 00 bedtime. Medic al 10-10 mg Branch per tablet doxylamine- 2020- Yes [id number] 2{tbl} Take 2 [facility] pyridoxine, 1-09 tablets by it y of vit B6, 00:00: mouth at [place] [address] bedtime. Medic al 10-10 mg Branch per tablet doxylamine- 2020- Yes [id number] 2{tbl} Take 2 [facility] pyridoxine, 1-09 tablets by it y of vit B6, 00:00: mouth at [facility] 00 bedtime. Medic al 10-10 mg Branch per tablet doxylamine- 2019- Yes [id number] 2{tbl} Take 2 [facility] pyridoxine, 1-09 tablets by it y of vit B6, 00:00: mouth at [facility] 00 bedtime. Medic al 10-10 mg Branch per tablet doxylamine- 2020- Yes [id number] 2{tbl} Take 2 [facility] pyridoxine, 1-09 tablets by it y of vit B6, 00:00: mouth at [facility] 00 bedtime. Medic al 10-10 mg Branch per tablet doxylamine- 2020- Yes [id number] 2{tbl} Take 2 [facility] pyridoxine, 1-09 tablets by it y of vit B6, 00:00: mouth at [facility] 00 bedtime. Medic al 10-10 mg Branch per tablet doxylamine- 2020- Yes [id number] 2{tbl} Take 2 [facility] pyridoxine, 1-09 tablets by it y of vit B6, 00:00: mouth at [facility]) 00 bedtime. Medic al 10-10 mg Branch per tablet doxylamine- 2019-08 Yes [id number] 2{tbl} Take 2 [facility] pyridoxine, 1-09 tablets by it y of vit B6, 00:00: mouth at [facility]) 00 bedtime. Medic al 10-10 mg Branch per tablet doxylamine- 2019-08 Yes [id number] 2{tbl} Take 2 [facility] pyridoxine, 1-09 tablets by it y of vit B6, 00:00: mouth at [facility]) 00 bedtime. Medic al 10-10 mg Branch per tablet doxylamine2019-08 Yes [id number] 2{tbl} Take 2 [facility] pyridoxine, 1-09 tablets by it y of vit B6, 00:00: mouth at [facility] 00 bedtime. Medic al 10-10 mg Branch per tablet doxylamine2019-08 Yes [id number] 2{tbl} Take 2 [facility] pyridoxine, 1-09 tablets by it y of vit B6, 00:00: mouth at [facility] 00 bedtime. Medic al 10-10 mg Branch per tablet doxylamine- 2019-08 Yes [id number] 2{tbl} Take 2 [facility] pyridoxine, 1-09 tablets by it y of vit B6, 00:00: mouth at [facility]) 00 bedtime. Medic al 10-10 mg Branch per tablet doxylamine2019-08 Yes [id number] 2{tbl} Take 2 [facility] pyridoxine, 1-09 tablets by it y of vit B6, 00:00: mouth at [facility]) 00 bedtime. Medic al 10-10 mg Branch per tablet doxylamine2019-08 Yes [id number] 2{tbl} Take 2 [facility] pyridoxine, 1-09 tablets by it y of vit B6, 00:00: mouth at [facility]) 00 bedtime. Medic al 10-10 mg Branch per tablet doxylamine- 2019-08 Yes [id number] 2{tbl} Take 2 [facility] pyridoxine, 1-09 tablets by it y of vit B6, 00:00: mouth at [facility] 00 bedtime. Medic al 10-10 mg Branch per tablet doxylamine- 2020- Yes [id number] 2{tbl} Take 2 [facility] pyridoxine, 1-09 tablets by it y of vit B6, 00:00: mouth at [facility]) 00 bedtime. Medic al 10-10 mg Branch per tablet doxylamine- 2020- Yes [id number] 2{tbl} Take 2 [facility] pyridoxine, 1-09 tablets by it y of vit B6, 00:00: mouth at [facility]) 00 bedtime. Medic al 10-10 mg Branch per tablet doxylamine- 2020- Yes [id number] 2{tbl} Take 2 [facility] pyridoxine, 1-09 tablets by it y of vit B6, 00:00: mouth at [facility] 00 bedtime. Medic al 10-10 mg Branch per tablet doxylamine- 2019- Yes [id number] 2{tbl} Take 2 [facility] pyridoxine, 1-09 tablets by it y of vit B6, 00:00: mouth at [facility] 00 bedtime. Medic al 10-10 mg Branch per tablet doxylamine- 2020- Yes [id number] 2{tbl} Take 2 [facility] pyridoxine, 1-09 tablets by it y of vit B6, 00:00: mouth at [facility] 00 bedtime. Medic al 10-10 mg Branch per tablet doxylamine- 2019- Yes [id number] 2{tbl} Take 2 [facility] pyridoxine, 1-09 tablets by it y of vit B6, 00:00: mouth at [facility] 00 bedtime. Medic al 10-10 mg Branch per tablet doxylamine- 2020- Yes [id number] 2{tbl} Take 2 [facility] pyridoxine, 1-09 tablets by it y of vit B6, 00:00: mouth at [facility]) 00 bedtime. Medic al 10-10 mg Branch per tablet doxylamine- 2020- Yes [id number] 2{tbl} Take 2 [facility] pyridoxine, 1-09 tablets by it y of vit B6, 00:00: mouth at [facility]) 00 bedtime. Medic al 10-10 mg Branch per tablet doxylamine- 2020- Yes [id number] 2{tbl} Take 2 [facility] pyridoxine, 1-09 tablets by it y of vit B6, 00:00: mouth at [facility] 00 bedtime. Medic al 10-10 mg Branch per tablet doxylamine- 2020- Yes [id number] 2{tbl} Take 2 [facility] pyridoxine, 1-09 tablets by it y of vit B6, 00:00: mouth at [facility] 00 bedtime. Medic al 10-10 mg Branch per tablet doxylamine- 2020- Yes [id number] 2{tbl} Take 2 [facility] pyridoxine, 1-09 tablets by it y of vit B6, 00:00: mouth at [facility] 00 bedtime. Medic al 10-10 mg Branch per tablet doxylamine- 2020- Yes [id number] 2{tbl} Take 2 [facility] pyridoxine, 1-09 tablets by it y of vit B6, 00:00: mouth at [place] [address] bedtime. Medic al 10-10 mg Branch per tablet doxylamine- 2020- Yes [id number] 2{tbl} Take 2 [facility] pyridoxine, 1-09 tablets by it y of vit B6, 00:00: mouth at [facility] 00 bedtime. Medic al 10-10 mg Branch per tablet doxylamine- 2019- Yes [id number] 2{tbl} Take 2 [facility] pyridoxine, 1-09 tablets by it y of vit B6, 00:00: mouth at [facility] 00 bedtime. Medic al 10-10 mg Branch per tablet doxylamine- 2020- Yes [id number] 2{tbl} Take 2 [facility] pyridoxine, 1-09 tablets by it y of vit B6, 00:00: mouth at [facility] 00 bedtime. Medic al 10-10 mg Branch per tablet doxylamine- 2020- Yes [id number] 2{tbl} Take 2 [facility] pyridoxine, 1-09 tablets by it y of vit B6, 00:00: mouth at [facility] 00 bedtime. Medic al 10-10 mg Branch per tablet doxylamine- 2020- Yes [id number] 2{tbl} Take 2 [facility] pyridoxine, 1-09 tablets by it y of vit B6, 00:00: mouth at [place] ([facility]) 00 bedtime. Medic al 10-10 mg Branch per tablet doxylamine- 2019-08 Yes [id number] 2{tbl} Take 2 [facility] pyridoxine, 1-09 tablets by it y of vit B6, 00:00: mouth at [facility]) 00 bedtime. Medic al 10-10 mg Branch per tablet doxylamine- 2019-08 Yes [id number] 2{tbl} Take 2 [facility] pyridoxine, 1-09 tablets by it y of vit B6, 00:00: mouth at [place] ([facility]) 00 bedtime. Medic al 10-10 mg Branch per tablet doxylamine- 2019-08 Yes [id number] 2{tbl} Take 2 [facility] pyridoxine, 1-09 tablets by it y of vit B6, 00:00: mouth at [facility]) 00 bedtime. Medic al 10-10 mg Branch per tablet doxylamine- 2019-08 Yes [id number] 2{tbl} Take 2 [facility] pyridoxine, 1-09 tablets by it y of vit B6, 00:00: mouth at [facility]) 00 bedtime. Medic al 10-10 mg Branch per tablet doxylamine- 2019-08 Yes [id number] 2{tbl} Take 2 [facility] pyridoxine, 1-09 tablets by it y of vit B6, 00:00: mouth at [facility]) 00 bedtime. Medic al 10-10 mg Branch per tablet doxylamine2019-08 Yes [id number] 2{tbl} Take 2 [facility] pyridoxine, 1-09 tablets by it y of vit B6, 00:00: mouth at [facility]) 00 bedtime. Medic al 10-10 mg Branch per tablet doxylamine- 2019-08 Yes [id number] 2{tbl} Take 2 [facility] pyridoxine, 1-09 tablets by it y of vit B6, 00:00: mouth at [place] ([facility]) 00 bedtime. Medic al 10-10 mg Branch per tablet escitalopra 2019-08 Yes [id number] 10mg Take 1 [facility] m oxalate 1-09 tablet by ity o f (LEXAPRO) 00:00: mouth [place] 10 mg 00 daily. Medical tablet Branch hydrOXYzine 2019-08 Yes [id number] 25mg Take 1 [facility] 25 mg 1-09 tablet by ity of tablet 00:00: mouth [place] 00 every 6 Medical (six) Branch hours as needed for Anxiety. doxylamine- 2019-08 Yes [id number] 2{tbl} Take 2 [facility] pyridoxine, 1-09 tablets by it y of vit B6, 00:00: mouth at [place] ([facility]) 00 bedtime. Medic al 10-10 mg Branch per tablet escitalopra 2019-08 Yes [id number] 10mg Take 1 [facility] m oxalate 1-09 tablet by ity o f (LEXAPRO) 00:00: mouth [place] 10 mg 00 daily. Medical tablet Branch hydrOXYzine 2019-08 Yes [id number] 25mg Take 1 [facility] 25 mg 1-09 tablet by ity of tablet 00:00: mouth [place] 00 every 6 Medical (six) Branch hours as needed for Anxiety. doxylamine- 2019-08 Yes [id number] 2{tbl} Take 2 [facility] pyridoxine, 1-09 tablets by it y of vit B6, 00:00: mouth at [place] ([facility]) 00 bedtime. Medic al 10-10 mg Branch per tablet escitalopra 2019-08 Yes [id number] 10mg Take 1 [facility] m oxalate 1-09 tablet by ity o f (LEXAPRO) 00:00: mouth [place] 10 mg 00 daily. Medical tablet Branch hydrOXYzine 2019-08 Yes [id number] 25mg Take 1 [facility] 25 mg 1-09 tablet by ity of tablet 00:00: mouth [place] 00 every 6 Medical (six) Branch hours as needed for Anxiety. doxylamine- 2019-08 Yes [id number] 2{tbl} Take 2 [facility] pyridoxine, 1-09 tablets by it y of vit B6, 00:00: mouth at [place] ([facility]) 00 bedtime. Medic al 10-10 mg Branch per tablet escitalopra 2019- Yes [id number] 10mg Take 1 [facility] m oxalate 1-09 tablet by ity o f (LEXAPRO) 00:00: mouth [place] 10 mg 00 daily. Medical tablet Branch hydrOXYzine 2019-08 Yes [id number] 25mg Take 1 [facility] 25 mg 1-09 tablet by ity of tablet 00:00: mouth [place] 00 every 6 Medical (six) Branch hours as needed for Anxiety. doxylamine- 2019-08 Yes [id number] 2{tbl} Take 2 [facility] pyridoxine, 1-09 tablets by it y of vit B6, 00:00: mouth at [place] ([facility]) 00 bedtime. Medic al 10-10 mg Branch per tablet escitalopra 2019-08 Yes [id number] 10mg Take 1 [facility] m oxalate 1-09 tablet by ity o f (LEXAPRO) 00:00: mouth [place] 10 mg 00 daily. Medical tablet Branch hydrOXYzine 2019-08 Yes [id number] 25mg Take 1 [facility] 25 mg 1-09 tablet by ity of tablet 00:00: mouth [place] 00 every 6 Medical (six) Branch hours as needed for Anxiety. doxylamine- 2019-08 Yes [id number] 2{tbl} Take 2 [facility] pyridoxine, 1-09 tablets by it y of vit B6, 00:00: mouth at [place] ([facility]) 00 bedtime. Medic al 10-10 mg Branch per tablet escitalopra 2019-08 Yes [id number] 10mg Take 1 [facility] m oxalate 1-09 tablet by ity o f (LEXAPRO) 00:00: mouth [place] 10 mg 00 daily. Medical tablet Branch hydrOXYzine 2019-08 Yes [id number] 25mg Take 1 [facility] 25 mg 1-09 tablet by ity of tablet 00:00: mouth [place] 00 every 6 Medical (six) Branch hours as needed for Anxiety. doxylamine- 2019-08 Yes [id number] 2{tbl} Take 2 [facility] pyridoxine, 1-09 tablets by it y of vit B6, 00:00: mouth at [place] ([facility]) 00 bedtime. Medic al 10-10 mg Branch per tablet escitalopra 2019-08- No [id number] 10mg Take 1 [facility] m oxalate -09 03-02 tablet by ity of (LEXAPRO) 00:00: 00:00 mouth [place] 10 mg 00 :00 daily. Medical tablet Branch hydrOXYzine 2019-08- No [id number] 25mg Take 1 [facility] 25 mg 1-09 -02 tablet by ity of tablet 00:00: 00:00 mouth [place] 00 :00 every 6 Medical (six) Branch hours as needed for Anxiety. 2019-08 Yes [id number] 1{tbl} Take 1 [facility] n[facility] multivitami 0-20 tablet by ity of n ( 00:00: mouth [place] [facility]) 00 daily. Medical tablet Branch 2019-08 Yes [id number] 1{tbl} Take 1 [facility] nivers multivitami 0-20 tablet by ity of n ( 00:00: mouth [place] [facility]) 00 daily. Medical tablet Branch 2019-08 Yes [id number] 1{tbl} Take 1 [facility] nivers multivitami 0-20 tablet by ity of n ( 00:00: mouth [place] [facility]) 00 daily. Medical tablet Branch 2019-08 Yes [id number] 1{tbl} Take 1 [facility] n[facility] mult[facility]itami 0-20 tablet by ity of n ( 00:00: mouth [place] [facility]) 00 daily. Medical tablet Branch 2019-08 Yes [id number] 1{tbl} Take 1 [facility] n[facility] mult[facility]ami 0-20 tablet by ity of n ( 00:00: mouth [place] [facility]) 00 daily. Medical tablet Branch 2019-08 Yes [id number] 1{tbl} Take 1 [facility] nivers mult[facility]itami 0-20 tablet by ity of n ( 00:00: mouth [place] [facility]) 00 daily. Medical tablet Branch 2019-08 Yes [id number] 1{tbl} Take 1 [facility] nivers mult[facility]itami 0-20 tablet by ity of n ( 00:00: mouth [place] [facility]) 00 daily. Medical tablet Branch 2019-08 Yes [id number] 1{tbl} Take 1 [facility] nivers multivitami 0-20 tablet by ity of n ( 00:00: mouth [place] [facility]) 00 daily. Medical tablet Branch 2019-08 Yes [id number] 1{tbl} Take 1 [facility] n[facility] mult[facility]itami 0-20 tablet by ity of n ( 00:00: mouth [place] [facility]) 00 daily. Medical tablet Branch 2019-08 Yes [id number] 1{tbl} Take 1 [facility] nivers mult[facility]itami 0-20 tablet by ity of n ( 00:00: mouth [place] [facility]) 00 daily. Medical tablet Branch 2019-08 Yes [id number] 1{tbl} Take 1 [facility] n[facility] mult[facility]itami 0-20 tablet by ity of n ( 00:00: mouth [place] [facility]) 00 daily. Medical tablet Branch 2019-08 Yes [id number] 1{tbl} Take 1 [facility] n[facility] mult[facility]itami 0-20 tablet by ity of n ( 00:00: mouth [place] [facility]) 00 daily. Medical tablet Branch 2019-08 Yes [id number] 1{tbl} Take 1 [facility] n[facility] mult[facility]itami 0-20 tablet by ity of n ( 00:00: mouth [place] [facility]) 00 daily. Medical tablet Branch 2019-08 Yes [id number] 1{tbl} Take 1 [facility] nivers mult[facility]itami 0-20 tablet by ity of n ( 00:00: mouth [place] [facility]) 00 daily. Medical tablet Branch 2019-08 Yes [id number] 1{tbl} Take 1 [facility] n[facility] mult[facility]itami 0-20 tablet by ity of n ( 00:00: mouth [place] [facility]) 00 daily. Medical tablet Branch 2019-08 Yes [id number] 1{tbl} Take 1 [facility] n[facility]ami 0-20 tablet by ity of n ( 00:00: mouth [place] [facility]) 00 daily. Medical tablet Branch 2019-08 Yes [id number] 1{tbl} Take 1 [facility] n[facility] mult[facility]itami 0-20 tablet by ity of n ( 00:00: mouth [place] [facility]) 00 daily. Medical tablet Branch 2019-08 Yes [id number] 1{tbl} Take 1 [facility] n[facility] mult[facility]ami 0-20 tablet by ity of n ( 00:00: mouth [place] [facility]) 00 daily. Medical tablet Branch 2019-08 Yes [id number] 1{tbl} Take 1 [facility] n[facility]ami 0-20 tablet by ity of n ( 00:00: mouth [place] [facility]) 00 daily. Medical tablet Branch 2019-08 Yes [id number] 1{tbl} Take 1 [facility] 0-20 tablet by ity of n ( 00:00: mouth [place] [facility]) 00 daily. Medical tablet Branch 2019-08 Yes [id number] 1{tbl} Take 1 [facility]ami 0-20 tablet by ity of n ( 00:00: mouth [place] [facility]) 00 daily. Medical tablet Branch 2019-08 Yes [id number] 1{tbl} Take 1 [facility] 0-20 tablet by ity of n ( 00:00: mouth [place] [facility]) 00 daily. Medical tablet Branch 2019-08 Yes [id number] 1{tbl} Take 1 [facility] n[facility] 0-20 tablet by ity of n ( 00:00: mouth [place] [facility]) 00 daily. Medical tablet Branch 2019-08 Yes [id number] 1{tbl} Take 1 [facility] 0-20 tablet by ity of n ( 00:00: mouth [place] [facility]) 00 daily. Medical tablet Branch 2019-08 Yes [id number] 1{tbl} Take 1 [facility] 0-20 tablet by ity of n ( 00:00: mouth [place] [facility]) 00 daily. Medical tablet Branch 2019-08 Yes [id number] 1{tbl} Take 1 [facility] 0-20 tablet by ity of n ( 00:00: mouth [place] [facility]) 00 daily. Medical tablet Branch 2019-08 Yes [id number] 1{tbl} Take 1 [facility] 0-20 tablet by ity of n ( 00:00: mouth [place] [facility]) 00 daily. Medical tablet Branch 2019-08 Yes [id number] 1{tbl} Take 1 [facility] 0-20 tablet by ity of n ( 00:00: mouth [place] [facility]) 00 daily. Medical tablet Branch 2019-08 Yes [id number] 1{tbl} Take 1 [facility] 0-20 tablet by [facility]y of n ( 00:00: mouth [place] [facility]) 00 daily. Medical tablet Branch 2019-08 Yes [id number] 1{tbl} Take 1 [facility] 0-20 tablet by ity of n ( 00:00: mouth [place] [facility]) 00 daily. Medical tablet Branch 2019-08 Yes [id number] 1{tbl} Take 1 [facility] 0-20 tablet by [facility]y of n ( 00:00: mouth [place] [facility]) 00 daily. Medical tablet Branch 2019-08 Yes [id number] 1{tbl} Take 1 [facility] n[facility] 0-20 tablet by ity of n ( 00:00: mouth [place] [facility]) 00 daily. Medical tablet Branch 2019-08 Yes [id number] 1{tbl} Take 1 [facility] 0-20 tablet by [facility]y of n ( 00:00: mouth [place] [facility]) 00 daily. Medical tablet Branch 2019-08 Yes [id number] 1{tbl} Take 1 [facility] 0-20 tablet by [facility]y of n ( 00:00: mouth [place] [facility]) 00 daily. Medical tablet Branch 2019-08 Yes [id number] 1{tbl} Take 1 [facility] 0-20 tablet by [facility]y of n ( 00:00: mouth [place] [facility]) 00 daily. Medical tablet Branch 2019-08 Yes [id number] 1{tbl} Take 1 [facility] 0-20 tablet by [facility]y of n ( 00:00: mouth [place] [facility]) 00 daily. Medical tablet Branch 2019-08 Yes [id number] 1{tbl} Take 1 [facility] 0-20 tablet by [facility]y of n ( 00:00: mouth [place] [facility]) 00 daily. Medical tablet Branch 2019-08 Yes [id number] 1{tbl} Take 1 [facility] 0-20 tablet by [facility] of n ( 00:00: mouth [place] [facility]) 00 daily. Medical tablet Branch 2019-08 Yes [id number] 1{tbl} Take 1 [facility] 0-20 tablet by [facility]y of n ( 00:00: mouth [place] [facility]) 00 daily. Medical tablet Branch 2019-08 Yes [id number] 1{tbl} Take 1 [facility] 0-20 tablet by [facility]y of n ( 00:00: mouth [place] [facility]) 00 daily. Medical tablet Branch 2019-08 Yes [id number] 1{tbl} Take 1 [facility] 0-20 tablet by [facility] of n ( 00:00: mouth [place] [facility]) 00 daily. Medical tablet Branch 2019-08 Yes [id number] 1{tbl} Take 1 [facility] 0-20 tablet by [facility]y of n ( 00:00: mouth [place] [facility]) 00 daily. Medical tablet Branch 2019-08 Yes [id number] 1{tbl} Take 1 [facility] 0-20 tablet by [facility] of n ( 00:00: mouth [place] [facility]) 00 daily. Medical tablet Branch 2019-08 Yes [id number] 1{tbl} Take 1 [facility] 0-20 tablet by [facility] of n ( 00:00: mouth [place] [facility]) 00 daily. Medical tablet Branch 2019-08 Yes [id number] 1{tbl} Take 1 [facility] 0-20 tablet by [facility] of n ( 00:00: mouth [place] [facility]) 00 daily. Medical tablet Branch 2019-08 Yes [id number] 1{tbl} Take 1 [facility] 0-20 tablet by [facility] of n ( 00:00: mouth [place] [facility]) 00 daily. Medical tablet Branch 2019-08 Yes [id number] 1{tbl} Take 1 [facility] 0-20 tablet by [facility] of n ( 00:00: mouth [place] [facility]) 00 daily. Medical tablet Branch 2019-08 Yes [id number] 1{tbl} Take 1 [facility] 0-20 tablet by [facility] of n ( 00:00: mouth [place] [facility]) 00 daily. Medical tablet Branch 2019-08 Yes [id number] 1{tbl} Take 1 [facility] 0-20 tablet by [facility]y of n ( 00:00: mouth [place] [facility]) 00 daily. Medical tablet Branch 2019-08 Yes [id number] 1{tbl} Take 1 [facility] 0-20 tablet by [facility] n ( 00:00: mouth [place] VIT[facility]IN) 00 daily. Medical tablet Branch 2019-08 Yes [id number] 1{tbl} Take 1 [facility] 0-20 tablet by [facility] n ( 00:00: mouth [place] VITAMIN) 00 daily. Medical tablet Branch 2019-08 Yes [id number] 1{tbl} Take 1 [facility] 0-20 tablet by [facility] n ( 00:00: mouth [place] VITAMIN) 00 daily. Medical tablet Branch 2019-08 Yes [id number] 1{tbl} Take 1 [facility] 0-20 tablet by [facility] n ( 00:00: mouth [place] VITAMIN) 00 daily. Medical tablet Branch 2019-08 Yes [id number] 1{tbl} Take 1 [facility] 0-20 tablet by [facility] n ( 00:00: mouth [place] VITAMIN) 00 daily. Medical tablet Branch 2019-08 Yes [id number] 1{tbl} Take 1 [facility] 0-20 tablet by [facility] n ( 00:00: mouth [place] VITAMIN) 00 daily. Medical tablet Branch 2019-08 Yes [id number] 1{tbl} Take 1 [facility] 0-20 tablet by [facility] n ( 00:00: mouth [place] VITAMIN) 00 daily. Medical tablet Branch 2019-08 Yes [id number] 1{tbl} Take 1 [facility] 0-20 tablet by [facility] n ( 00:00: mouth [place] VITAMIN) 00 daily. Medical tablet Branch 2019-08 Yes [id number] 1{tbl} Take 1 [facility] 0-20 tablet by [facility] n ( 00:00: mouth [place] VITAMIN) 00 daily. Medical tablet Branch 2019-08 Yes [id number] 1{tbl} Take 1 [facility] 0-20 tablet by [facility] n ( 00:00: mouth [place] VITAMIN) 00 daily. Medical tablet Branch 2019-08 Yes [id number] 1{tbl} Take 1 [facility] 0-20 tablet by [facility] n ( 00:00: mouth [place] VITAMIN) 00 daily. Medical tablet Branch 2019-08 Yes [id number] 1{tbl} Take 1 [facility] 0-20 tablet by [facility] n ( 00:00: mouth [place] VITAMIN) 00 daily. Medical tablet Branch 2019-08 Yes [id number] 1{tbl} Take 1 [facility] 0-20 tablet by [facility] n ( 00:00: mouth [place] VITAMIN) 00 daily. Medical tablet Branch 2019-08 Yes [id number] 1{tbl} Take 1 [facility] 0-20 tablet by [facility] n ( 00:00: mouth [place] VITAMIN) 00 daily. Medical tablet Branch 2019-08 Yes [id number] 1{tbl} Take 1 [facility] 0-20 tablet by [facility] n ( 00:00: mouth [place] VITAMIN) 00 daily. Medical tablet Branch 2019-08 Yes [id number] 1{tbl} Take 1 [facility] 0-20 tablet by [facility] n ( 00:00: mouth [place] VITAMIN) 00 daily. Medical tablet Branch 2019-08 Yes [id number] 1{tbl} Take 1 [facility] 0-20 tablet by [facility] n ( 00:00: mouth [place] VITAMIN) 00 daily. Medical tablet Branch 2019-08 Yes [id number] 1{tbl} Take 1 [facility] 0-20 tablet by [facility] n ( 00:00: mouth [place] VITAMIN) 00 daily. Medical tablet Branch 2019-08 Yes [id number] 1{tbl} Take 1 [facility] 0-20 tablet by [facility] n ( 00:00: mouth [place] VITAMIN) 00 daily. Medical tablet Branch 2020- No Take by [facility] ers vit/iron 6-15 06-15 mouth. ity of fum/folic 12:35: 00:00 [place] ac 00 :00 Medical ( 1 Branch + 1 ORAL) Yes [id number] 1{tbl} Take 1 [facility] vitamin 6-15 tablet by ity of w/FA tablet 00:00: mouth [place] 00 daily. Medical Branch Yes [id number] 1{tbl} Take 1 [facility] vitamin 6-15 tablet by ity of w/FA tablet 00:00: mouth [place] 00 daily. Medical Branch docusate Yes [id number] 240mg Take 1 U nivers calcium 240 6-15 capsule by it y of mg capsule 00:00: mouth [place] 00 daily as Medical needed for Branch Constipati on. ferrous 2019- Yes [id number] 325mg Take 1 Un radha sulfate 325 6-15 tablet by ity of mg (65 mg 00:00: mouth 2 [place] iron) 00 (two) Medical tablet times Branch daily. ibuprofen 2019-0 Yes [id number] 600mg Take 1 [facility] 600 mg 6-15 tablet by ity of tablet 00:00: mouth [place] 00 every 6 Medical (six) Branch hours as needed (Pain). Take with food or milk. docusate 2019- Yes [id number] 240mg Take 1 [facility] nivers calcium 240 6-15 capsule by it y of mg capsule 00:00: mouth once [place] 00 daily as Medical needed for Branch Constipati on. ibuprofen 2019- Yes [id number] 600mg Take 1 [facility] 600 mg 6-15 tablet by ity of tablet 00:00: mouth [place] 00 every 6 Medical (six) Branch hours as needed for Pain (scale 1-3) or Pain (scale 4-6). 2020-0 Yes [id number] 1{tbl} Take 1 [facility] vitamin 6-15 tablet by it[facility] of w/FA tablet 00:00: mouth [place] 00 daily. Medical Branch 2020-0 Yes [id number] 1{tbl} Take 1 [facility] vitamin 6-15 tablet by ity of w/FA tablet 00:00: mouth [place] 00 daily. Medical Branch docusate 2020-0 Yes [id number] 240mg Take 1 U nivers calcium 240 6-15 capsule by it y of mg capsule 00:00: mouth once [place] 00 daily as Medical needed for Branch Constipati on. ferrous 2020-0 Yes [id number] 325mg Take 1 Un radha sulfate 325 6-15 tablet by ity of mg (65 mg 00:00: mouth 2 [place] iron) 00 (two) Medical tablet times Branch daily. ibuprofen 2019-0 Yes [id number] 600mg Take 1 [facility] 600 mg 6-15 tablet by ity of tablet 00:00: mouth [place] 00 every 6 Medical (six) Branch hours as needed (Pain). Take with food or milk. docusate 2020-0 Yes [id number] 240mg Take 1 [facility] nivers calcium 240 6-15 capsule by it y of mg capsule 00:00: mouth once [place] 00 daily as Medical needed for Branch Constipati on. ibuprofen 2020-0 Yes [id number] 600mg Take 1 [facility] 600 mg 6-15 tablet by ity of tablet 00:00: mouth [place] 00 every 6 Medical (six) Branch hours as needed for Pain (scale 1-3) or Pain (scale 4-6). 2020-0 Yes [id number] 1{tbl} Take 1 [facility] vitamin 6-15 tablet by ity of w/FA tablet 00:00: mouth [place] 00 daily. Medical Branch 2020-0 Yes [id number] 1{tbl} Take 1 [facility] vitamin 6-15 tablet by ity of w/FA tablet 00:00: mouth [place] 00 daily. Medical Branch docusate 2020-0 Yes [id number] 240mg Take 1 [facility] nivers calcium 240 6-15 capsule by it y of mg capsule 00:00: mouth once [place] 00 daily as Medical needed for Branch Constipati on. ferrous 2020-0 Yes [id number] 325mg Take 1 Un radha sulfate 325 6-15 tablet by ity of mg (65 mg 00:00: mouth 2 [place] iron) 00 (two) Medical tablet times Branch daily. ibuprofen 2020-0 Yes [id number] 600mg Take 1 [facility] 600 mg 6-15 tablet by ity of tablet 00:00: mouth [place] 00 every 6 Medical (six) Branch hours as needed (Pain). Take with food or milk. docusate 2020-0 Yes [id number] 240mg Take 1 [facility] nivers calcium 240 6-15 capsule by it y of mg capsule 00:00: mouth once [place] 00 daily as Medical needed for Branch Constipati on. ibuprofen 2020-0 Yes [id number] 600mg Take 1 [facility] 600 mg 6-15 tablet by ity of tablet 00:00: mouth [place] 00 every 6 Medical (six) Branch hours as needed for Pain (scale 1-3) or Pain (scale 4-6). 2020-0 Yes [id number] 1{tbl} Take 1 [facility] vitamin 6-15 tablet by ity of w/FA tablet 00:00: mouth [place] 00 daily. Medical Branch 2020-0 Yes [id number] 1{tbl} Take 1 [facility] vitamin 6-15 tablet by ity of w/FA tablet 00:00: mouth [place] 00 daily. Medical Branch docusate 2020-0 Yes [id number] 240mg Take 1 [facility] nivers calcium 240 6-15 capsule by it y of mg capsule 00:00: mouth once [place] 00 daily as Medical needed for Branch Constipati on. ferrous 2020-0 Yes [id number] 325mg Take 1 Un radha sulfate 325 6-15 tablet by ity of mg (65 mg 00:00: mouth 2 [place] iron) 00 (two) Medical tablet times Branch daily. ibuprofen 2020-0 Yes [id number] 600mg Take 1 [facility] 600 mg 6-15 tablet by ity of tablet 00:00: mouth [place] 00 every 6 Medical (six) Branch hours as needed (Pain). Take with food or milk. docusate 2020-0 Yes [id number] 240mg Take 1 [facility] nivers calcium 240 6-15 capsule by it y of mg capsule 00:00: mouth once [place] 00 daily as Medical needed for Branch Constipati on. ibuprofen 2020-0 Yes [id number] 600mg Take 1 [facility] 600 mg 6-15 tablet by ity of tablet 00:00: mouth [place] 00 every 6 Medical (six) Branch hours as needed for Pain (scale 1-3) or Pain (scale 4-6). 2020-0 Yes [id number] 1{tbl} Take 1 [facility] vitamin 6-15 tablet by ity of w/FA tablet 00:00: mouth [place] 00 daily. Medical Branch 2020-0 Yes [id number] 1{tbl} Take 1 [facility] vitamin 6-15 tablet by ity of w/FA tablet 00:00: mouth [place] 00 daily. Medical Branch docusate 2020-0 Yes [id number] 240mg Take 1 U nivers calcium 240 6-15 capsule by it y of mg capsule 00:00: mouth once [place] 00 daily as Medical needed for Branch Constipati on. ferrous 2020-0 Yes [id number] 325mg Take 1 Un radha sulfate 325 6-15 tablet by ity of mg (65 mg 00:00: mouth 2 [place] iron) 00 (two) Medical tablet times Branch daily. ibuprofen 2019-0 Yes [id number] 600mg Take 1 [facility] 600 mg 6-15 tablet by ity of tablet 00:00: mouth [place] 00 every 6 Medical (six) Branch hours as needed (Pain). Take with food or milk. docusate 2020-0 Yes [id number] 240mg Take 1 U nivers calcium 240 6-15 capsule by it y of mg capsule 00:00: mouth once [place] 00 daily as Medical needed for Branch Constipati on. ibuprofen 2020-0 Yes [id number] 600mg Take 1 [facility] 600 mg 6-15 tablet by ity of tablet 00:00: mouth [place] 00 every 6 Medical (six) Branch hours as needed for Pain (scale 1-3) or Pain (scale 4-6). 2020-0 Yes [id number] 1{tbl} Take 1 [facility] vitamin 6-15 tablet by ity of w/FA tablet 00:00: mouth [place] 00 daily. Medical Branch 2020-0 Yes [id number] 1{tbl} Take 1 [facility] vitamin 6-15 tablet by ity of w/FA tablet 00:00: mouth [place] 00 daily. Medical Branch docusate 2020-0 Yes [id number] 240mg Take 1 U nivers calcium 240 6-15 capsule by it y of mg capsule 00:00: mouth once [place] 00 daily as Medical needed for Branch Constipati on. ferrous 2020-0 Yes [id number] 325mg Take 1 Un radha sulfate 325 6-15 tablet by ity of mg (65 mg 00:00: mouth 2 [place] iron) 00 (two) Medical tablet times Branch daily. ibuprofen 2020-0 Yes [id number] 600mg Take 1 [facility] 600 mg 6-15 tablet by ity of tablet 00:00: mouth [place] 00 every 6 Medical (six) Branch hours as needed (Pain). Take with food or milk. docusate 2020-0 Yes [id number] 240mg Take 1 U nivers calcium 240 6-15 capsule by it y of mg capsule 00:00: mouth once [place] 00 daily as Medical needed for Branch Constipati on. ibuprofen 2020-0 Yes [id number] 600mg Take 1 [facility] 600 mg 6-15 tablet by ity of tablet 00:00: mouth [place] 00 every 6 Medical (six) Branch hours as needed for Pain (scale 1-3) or Pain (scale 4-6). 2020-0 Yes [id number] 1{tbl} Take 1 [facility] vitamin 6-15 tablet by ity of w/FA tablet 00:00: mouth [place] 00 daily. Medical Branch 2020-0 Yes [id number] 1{tbl} Take 1 [facility] vitamin 6-15 tablet by ity of w/FA tablet 00:00: mouth [place] 00 daily. Medical Branch docusate 2020-0 Yes [id number] 240mg Take 1 U nivers calcium 240 6-15 capsule by it y of mg capsule 00:00: mouth once [place] 00 daily as Medical needed for Branch Constipati on. ferrous 2020-0 Yes [id number] 325mg Take 1 Un radha sulfate 325 6-15 tablet by ity of mg (65 mg 00:00: mouth 2 [place] iron) 00 (two) Medical tablet times Branch daily. ibuprofen 2020-0 Yes [id number] 600mg Take 1 [facility] 600 mg 6-15 tablet by ity of tablet 00:00: mouth [place] 00 every 6 Medical (six) Branch hours as needed (Pain). Take with food or milk. docusate 2020-0 Yes [id number] 240mg Take 1 U nivers calcium 240 6-15 capsule by it y of mg capsule 00:00: mouth once [place] 00 daily as Medical needed for Branch Constipati on. docusate 2020-0 Yes [id number] 240mg Take 1 U nivers calcium 240 6-15 capsule by it y of mg capsule 00:00: mouth once [place] 00 daily as Medical needed for Branch Constipati on. ferrous 2020-0 Yes [id number] 325mg Take 1 Un radha sulfate 325 6-15 tablet by ity of mg (65 mg 00:00: mouth 2 [place] iron) 00 (two) Medical tablet times Branch daily. docusate 2020-0 Yes [id number] 240mg Take 1 U nivers calcium 240 6-15 capsule by it y of mg capsule 00:00: mouth once [place] 00 daily as Medical needed for Branch Constipati on. docusate 2020-0 Yes [id number] 240mg Take 1 U nivers calcium 240 6-15 capsule by it y of mg capsule 00:00: mouth once [place] 00 daily as Medical needed for Branch Constipati on. ferrous 2020-0 Yes [id number] 325mg Take 1 Un radha sulfate 325 6-15 tablet by ity of mg (65 mg 00:00: mouth 2 [place] iron) 00 (two) Medical tablet times Branch daily. docusate 2020-0 Yes [id number] 240mg Take 1 U nivers calcium 240 6-15 capsule by it y of mg capsule 00:00: mouth once [place] 00 daily as Medical needed for Branch Constipati on. docusate 2020-0 Yes [id number] 240mg Take 1 U nivers calcium 240 6-15 capsule by it y of mg capsule 00:00: mouth once [place] 00 daily as Medical needed for Branch Constipati on. ferrous 2020-0 Yes [id number] 325mg Take 1 Un radha sulfate 325 6-15 tablet by ity of mg (65 mg 00:00: mouth 2 [place] iron) 00 (two) Medical tablet times Branch daily. docusate 2020-0 Yes [id number] 240mg Take 1 U nivers calcium 240 6-15 capsule by it y of mg capsule 00:00: mouth once [place] 00 daily as Medical needed for Branch Constipati on. docusate 2020-0 Yes [id number] 240mg Take 1 U nivers calcium 240 6-15 capsule by it y of mg capsule 00:00: mouth once [place] 00 daily as Medical needed for Branch Constipati on. ferrous 2020-0 Yes [id number] 325mg Take 1 Un radha sulfate 325 6-15 tablet by ity of mg (65 mg 00:00: mouth 2 [place] iron) 00 (two) Medical tablet times Branch daily. docusate 2020-0 Yes [id number] 240mg Take 1 U nivers calcium 240 6-15 capsule by it y of mg capsule 00:00: mouth once [place] 00 daily as Medical needed for Branch Constipati on. docusate 2020-0 Yes [id number] 240mg Take 1 U nivers calcium 240 6-15 capsule by it y of mg capsule 00:00: mouth once [place] 00 daily as Medical needed for Branch Constipati on. ferrous 2020-0 Yes [id number] 325mg Take 1 Un radha sulfate 325 6-15 tablet by ity of mg (65 mg 00:00: mouth 2 [place] iron) 00 (two) Medical tablet times Branch daily. docusate 2020-0 Yes [id number] 240mg Take 1 U nivers calcium 240 6-15 capsule by it y of mg capsule 00:00: mouth once [place] 00 daily as Medical needed for Branch Constipati on. docusate 2020-0 Yes [id number] 240mg Take 1 U nivers calcium 240 6-15 capsule by it y of mg capsule 00:00: mouth once [place] 00 daily as Medical needed for Branch Constipati on. ferrous 2020-0 Yes [id number] 325mg Take 1 Un radha sulfate 325 6-15 tablet by ity of mg (65 mg 00:00: mouth 2 [place] iron) 00 (two) Medical tablet times Branch daily. docusate 2020-0 Yes [id number] 240mg Take 1 U nivers calcium 240 6-15 capsule by it y of mg capsule 00:00: mouth once [place] 00 daily as Medical needed for Branch Constipati on. docusate 2020-0 Yes [id number] 240mg Take 1 U nivers calcium 240 6-15 capsule by it y of mg capsule 00:00: mouth once [place] 00 daily as Medical needed for Branch Constipati on. ferrous 2020-0 Yes [id number] 325mg Take 1 Un radha sulfate 325 6-15 tablet by ity of mg (65 mg 00:00: mouth 2 [place] iron) 00 (two) Medical tablet times Branch daily. docusate 2020-0 Yes [id number] 240mg Take 1 U nivers calcium 240 6-15 capsule by it y of mg capsule 00:00: mouth once [place] 00 daily as Medical needed for Branch Constipati on. docusate 2020-0 Yes [id number] 240mg Take 1 U nivers calcium 240 6-15 capsule by it y of mg capsule 00:00: mouth once [place] 00 daily as Medical needed for Branch Constipati on. ferrous 2020-0 Yes [id number] 325mg Take 1 Un radha sulfate 325 6-15 tablet by ity of mg (65 mg 00:00: mouth 2 [place] iron) 00 (two) Medical tablet times Branch daily. docusate 2020-0 Yes [id number] 240mg Take 1 U nivers calcium 240 6-15 capsule by it y of mg capsule 00:00: mouth once [place] 00 daily as Medical needed for Branch Constipati on. docusate 2020-0 Yes [id number] 240mg Take 1 U nivers calcium 240 6-15 capsule by it y of mg capsule 00:00: mouth once [place] 00 daily as Medical needed for Branch Constipati on. ferrous 2020-0 Yes [id number] 325mg Take 1 Un radha sulfate 325 6-15 tablet by ity of mg (65 mg 00:00: mouth 2 [place] iron) 00 (two) Medical tablet times Branch daily. docusate 2020-0 Yes [id number] 240mg Take 1 U nivers calcium 240 6-15 capsule by it y of mg capsule 00:00: mouth once [place] 00 daily as Medical needed for Branch Constipati on. docusate 2020-0 Yes [id number] 240mg Take 1 U nivers calcium 240 6-15 capsule by it y of mg capsule 00:00: mouth once [place] 00 daily as Medical needed for Branch Constipati on. ferrous 2020-0 Yes [id number] 325mg Take 1 Un radha sulfate 325 6-15 tablet by ity of mg (65 mg 00:00: mouth 2 [place] iron) 00 (two) Medical tablet times Branch daily. docusate 2020-0 Yes [id number] 240mg Take 1 U nivers calcium 240 6-15 capsule by it y of mg capsule 00:00: mouth once [place] 00 daily as Medical needed for Branch Constipati on. docusate 2020-0 Yes [id number] 240mg Take 1 U nivers calcium 240 6-15 capsule by it y of mg capsule 00:00: mouth once [place] 00 daily as Medical needed for Branch Constipati on. ferrous 2020-0 Yes [id number] 325mg Take 1 Un ardha sulfate 325 6-15 tablet by ity of mg (65 mg 00:00: mouth 2 [place] iron) 00 (two) Medical tablet times Branch daily. docusate 2020-0 Yes [id number] 240mg Take 1 U nivers calcium 240 6-15 capsule by it y of mg capsule 00:00: mouth once [place] 00 daily as Medical needed for Branch Constipati on. docusate 2020-0 Yes [id number] 240mg Take 1 U nivers calcium 240 6-15 capsule by it y of mg capsule 00:00: mouth once [place] 00 daily as Medical needed for Branch Constipati on. ferrous 2020-0 Yes [id number] 325mg Take 1 Un radha sulfate 325 6-15 tablet by ity of mg (65 mg 00:00: mouth 2 [place] iron) 00 (two) Medical tablet times Branch daily. docusate 2020-0 Yes [id number] 240mg Take 1 U nivers calcium 240 6-15 capsule by it y of mg capsule 00:00: mouth once [place] 00 daily as Medical needed for Branch Constipati on. docusate 2020-0 Yes [id number] 240mg Take 1 U nivers calcium 240 6-15 capsule by it y of mg capsule 00:00: mouth once [place] 00 daily as Medical needed for Branch Constipati on. ferrous 2020-0 Yes [id number] 325mg Take 1 Un radha sulfate 325 6-15 tablet by ity of mg (65 mg 00:00: mouth 2 [place] iron) 00 (two) Medical tablet times Branch daily. docusate 2020-0 Yes [id number] 240mg Take 1 U nivers calcium 240 6-15 capsule by it y of mg capsule 00:00: mouth once [place] 00 daily as Medical needed for Branch Constipati on. docusate 2020-0 Yes [id number] 240mg Take 1 U nivers calcium 240 6-15 capsule by it y of mg capsule 00:00: mouth once [place] 00 daily as Medical needed for Branch Constipati on. ferrous 2020-0 Yes [id number] 325mg Take 1 Un radha sulfate 325 6-15 tablet by ity of mg (65 mg 00:00: mouth 2 [place] iron) 00 (two) Medical tablet times Branch daily. docusate 2020-0 Yes [id number] 240mg Take 1 U nivers calcium 240 6-15 capsule by it y of mg capsule 00:00: mouth once [place] 00 daily as Medical needed for Branch Constipati on. docusate 2020-0 Yes [id number] 240mg Take 1 U nivers calcium 240 6-15 capsule by it y of mg capsule 00:00: mouth once [place] 00 daily as Medical needed for Branch Constipati on. ferrous 2020-0 Yes [id number] 325mg Take 1 Un radha sulfate 325 6-15 tablet by ity of mg (65 mg 00:00: mouth 2 [place] iron) 00 (two) Medical tablet times Branch daily. docusate 2020-0 Yes [id number] 240mg Take 1 U nivers calcium 240 6-15 capsule by it y of mg capsule 00:00: mouth once [place] 00 daily as Medical needed for Branch Constipati on. docusate 2020-0 Yes [id number] 240mg Take 1 U nivers calcium 240 6-15 capsule by it y of mg capsule 00:00: mouth once [place] 00 daily as Medical needed for Branch Constipati on. ferrous 2020-0 Yes [id number] 325mg Take 1 Un radha sulfate 325 6-15 tablet by ity of mg (65 mg 00:00: mouth 2 [place] iron) 00 (two) Medical tablet times Branch daily. docusate 2020-0 Yes [id number] 240mg Take 1 U nivers calcium 240 6-15 capsule by it y of mg capsule 00:00: mouth once [place] 00 daily as Medical needed for Branch Constipati on. docusate 2020-0 Yes [id number] 240mg Take 1 U nivers calcium 240 6-15 capsule by it y of mg capsule 00:00: mouth once [place] 00 daily as Medical needed for Branch Constipati on. ferrous 2020-0 Yes [id number] 325mg Take 1 Un radha sulfate 325 6-15 tablet by ity of mg (65 mg 00:00: mouth 2 [place] iron) 00 (two) Medical tablet times Branch daily. docusate 2020-0 Yes [id number] 240mg Take 1 U nivers calcium 240 6-15 capsule by it y of mg capsule 00:00: mouth once [place] 00 daily as Medical needed for Branch Constipati on. docusate 2020-0 Yes [id number] 240mg Take 1 U nivers calcium 240 6-15 capsule by it y of mg capsule 00:00: mouth once [place] 00 daily as Medical needed for Branch Constipati on. ferrous 2020-0 Yes [id number] 325mg Take 1 Un radha sulfate 325 6-15 tablet by ity of mg (65 mg 00:00: mouth 2 [place] iron) 00 (two) Medical tablet times Branch daily. docusate 2020-0 Yes [id number] 240mg Take 1 U nivers calcium 240 6-15 capsule by it y of mg capsule 00:00: mouth once [place] 00 daily as Medical needed for Branch Constipati on. docusate 2020-0 Yes [id number] 240mg Take 1 U nivers calcium 240 6-15 capsule by it y of mg capsule 00:00: mouth once [place] 00 daily as Medical needed for Branch Constipati on. ferrous 2020-0 Yes [id number] 325mg Take 1 Un radha sulfate 325 6-15 tablet by ity of mg (65 mg 00:00: mouth 2 [place] iron) 00 (two) Medical tablet times Branch daily. docusate 2020-0 Yes [id number] 240mg Take 1 U nivers calcium 240 6-15 capsule by it y of mg capsule 00:00: mouth once [place] 00 daily as Medical needed for Branch Constipati on. docusate 2020-0 Yes [id number] 240mg Take 1 U nivers calcium 240 6-15 capsule by it y of mg capsule 00:00: mouth once [place] 00 daily as Medical needed for Branch Constipati on. ferrous 2020-0 Yes [id number] 325mg Take 1 Un radha sulfate 325 6-15 tablet by ity of mg (65 mg 00:00: mouth 2 [place] iron) 00 (two) Medical tablet times Branch daily. docusate 2020-0 Yes [id number] 240mg Take 1 U nivers calcium 240 6-15 capsule by it y of mg capsule 00:00: mouth once [place] 00 daily as Medical needed for Branch Constipati on. docusate 2020-0 Yes [id number] 240mg Take 1 U nivers calcium 240 6-15 capsule by it y of mg capsule 00:00: mouth once [place] 00 daily as Medical needed for Branch Constipati on. ferrous 2020-0 Yes [id number] 325mg Take 1 Un radha sulfate 325 6-15 tablet by ity of mg (65 mg 00:00: mouth 2 [place] iron) 00 (two) Medical tablet times Branch daily. docusate 2020-0 Yes [id number] 240mg Take 1 U nivers calcium 240 6-15 capsule by it y of mg capsule 00:00: mouth once [place] 00 daily as Medical needed for Branch Constipati on. docusate 2020-0 Yes [id number] 240mg Take 1 U nivers calcium 240 6-15 capsule by it y of mg capsule 00:00: mouth once [place] 00 daily as Medical needed for Branch Constipati on. ferrous 2020-0 Yes [id number] 325mg Take 1 Un radha sulfate 325 6-15 tablet by ity of mg (65 mg 00:00: mouth 2 [place] iron) 00 (two) Medical tablet times Branch daily. docusate 2020-0 Yes [id number] 240mg Take 1 U nivers calcium 240 6-15 capsule by it y of mg capsule 00:00: mouth once [place] 00 daily as Medical needed for Branch Constipati on. docusate 2020-0 Yes [id number] 240mg Take 1 U nivers calcium 240 6-15 capsule by it y of mg capsule 00:00: mouth once [place] 00 daily as Medical needed for Branch Constipati on. ferrous 2020-0 Yes [id number] 325mg Take 1 Un radha sulfate 325 6-15 tablet by ity of mg (65 mg 00:00: mouth 2 [place] iron) 00 (two) Medical tablet times Branch daily. docusate 2020-0 Yes [id number] 240mg Take 1 U nivers calcium 240 6-15 capsule by it y of mg capsule 00:00: mouth once [place] 00 daily as Medical needed for Branch Constipati on. docusate 2020-0 Yes [id number] 240mg Take 1 U nivers calcium 240 6-15 capsule by it y of mg capsule 00:00: mouth once [place] 00 daily as Medical needed for Branch Constipati on. ferrous 2020-0 Yes [id number] 325mg Take 1 Un radha sulfate 325 6-15 tablet by ity of mg (65 mg 00:00: mouth 2 [place] iron) 00 (two) Medical tablet times Branch daily. docusate 2020-0 Yes [id number] 240mg Take 1 U nivers calcium 240 6-15 capsule by it y of mg capsule 00:00: mouth once [place] 00 daily as Medical needed for Branch Constipati on. docusate 2020-0 Yes [id number] 240mg Take 1 U nivers calcium 240 6-15 capsule by it y of mg capsule 00:00: mouth once [place] 00 daily as Medical needed for Branch Constipati on. ferrous 2020-0 Yes [id number] 325mg Take 1 Un radha sulfate 325 6-15 tablet by ity of mg (65 mg 00:00: mouth 2 [place] iron) 00 (two) Medical tablet times Branch daily. docusate 2020-0 Yes [id number] 240mg Take 1 U nivers calcium 240 6-15 capsule by it y of mg capsule 00:00: mouth once [place] 00 daily as Medical needed for Branch Constipati on. docusate 2020-0 Yes [id number] 240mg Take 1 U nivers calcium 240 6-15 capsule by it y of mg capsule 00:00: mouth once [place] 00 daily as Medical needed for Branch Constipati on. ferrous 2020-0 Yes [id number] 325mg Take 1 Un radha sulfate 325 6-15 tablet by ity of mg (65 mg 00:00: mouth 2 [place] iron) 00 (two) Medical tablet times Branch daily. docusate 2020-0 Yes [id number] 240mg Take 1 [facility] calcium 240 6-15 capsule by [facility] mg capsule 00:00: mouth once [place] 00 daily as Medical needed for Branch Constipati on. docusate 2020-0 Yes [id number] 240mg Take 1 [facility] calcium 240 6-15 capsule by [facility] y of mg capsule 00:00: mouth once [place] 00 daily as Medical needed for Branch Constipati on. ferrous 2020-0 Yes [id number] 325mg Take 1 Un radha sulfate 325 6-15 tablet by [facility] of mg (65 mg 00:00: mouth 2 [place] iron) 00 (two) Medical tablet times Branch daily. docusate 2020-0 Yes [id number] 240mg Take 1 [facility] calcium 240 6-15 capsule by [facility] mg capsule 00:00: mouth once [place] 00 daily as Medical needed for Branch Constipati on. docusate 2020-0 Yes [id number] 240mg Take 1 [facility] calcium 240 6-15 capsule by [facility] of mg capsule 00:00: mouth once [place] 00 daily as Medical needed for Branch Constipati on. ferrous 2020-0 Yes [id number] 325mg Take 1 [facility] radha sulfate 325 6-15 tablet by [facility] of mg (65 mg 00:00: mouth 2 [place] iron) 00 (two) Medical tablet times Branch daily. docusate 2020-0 Yes [id number] 240mg Take 1 [facility] calcium 240 6-15 capsule by [facility] of mg capsule 00:00: mouth once [place] 00 daily as Medical needed for Branch Constipati on. docusate 2020-0 Yes [id number] 240mg Take 1 [facility] calcium 240 6-15 capsule by [facility] y of mg capsule 00:00: mouth once [place] 00 daily as Medical needed for Branch Constipati on. ferrous 2020-0 Yes [id number] 325mg Take 1 [facility] radha sulfate 325 6-15 tablet by [facility] of mg (65 mg 00:00: mouth 2 [place] iron) 00 (two) Medical tablet times Branch daily. docusate 2020-0 Yes [id number] 240mg Take 1 [facility] calcium 240 6-15 capsule by [facility] of mg capsule 00:00: mouth once [place] 00 daily as Medical needed for Branch Constipati on. docusate 2020-0 Yes [id number] 240mg Take 1 [facility] calcium 240 6-15 capsule by [facility] of mg capsule 00:00: mouth once [place] 00 daily as Medical needed for Branch Constipati on. ferrous 2020-0 Yes [id number] 325mg Take 1 [facility] radha sulfate 325 6-15 tablet by [facility] of mg (65 mg 00:00: mouth 2 [place] iron) 00 (two) Medical tablet times Branch daily. docusate 2020-0 Yes [id number] 240mg Take 1 [facility] calcium 240 6-15 capsule by [facility] y of mg capsule 00:00: mouth once [place] 00 daily as Medical needed for Branch Constipati on. docusate 2020-0 Yes [id number] 240mg Take 1 [facility] calcium 240 6-15 capsule by [facility] of mg capsule 00:00: mouth once [place] 00 daily as Medical needed for Branch Constipati on. ferrous 2020-0 Yes [id number] 325mg Take 1 [facility] radha sulfate 325 6-15 tablet by [facility] of mg (65 mg 00:00: mouth 2 [place] iron) 00 (two) Medical tablet times Branch daily. docusate 2020-0 Yes [id number] 240mg Take 1 [facility] calcium 240 6-15 capsule by [facility] of mg capsule 00:00: mouth once [place] 00 daily as Medical needed for Branch Constipati on. docusate 2020-0 Yes [id number] 240mg Take 1 [facility] calcium 240 6-15 capsule by [facility] of mg capsule 00:00: mouth once [place] 00 daily as Medical needed for Branch Constipati on. ferrous 2020-0 Yes [id number] 325mg Take 1 [facility] radha sulfate 325 6-15 tablet by [facility] of mg (65 mg 00:00: mouth 2 [place] iron) 00 (two) Medical tablet times Branch daily. docusate 2020-0 Yes [id number] 240mg Take 1 [facility] calcium 240 6-15 capsule by [facility] of mg capsule 00:00: mouth once [place] 00 daily as Medical needed for Branch Constipati on. docusate 2020-0 Yes [id number] 240mg Take 1 [facility] calcium 240 6-15 capsule by [facility] of mg capsule 00:00: mouth once [place] 00 daily as Medical needed for Branch Constipati on. ferrous 2020-0 Yes [id number] 325mg Take 1 [facility] radha sulfate 325 6-15 tablet by [facility] of mg (65 mg 00:00: mouth 2 [place] iron) 00 (two) Medical tablet times Branch daily. docusate 2020-0 Yes [id number] 240mg Take 1 [facility] calcium 240 6-15 capsule by [facility] of mg capsule 00:00: mouth once [place] 00 daily as Medical needed for Branch Constipati on. docusate 2020-0 Yes [id number] 240mg Take 1 [facility] calcium 240 6-15 capsule by [facility] y of mg capsule 00:00: mouth once [place] 00 daily as Medical needed for Branch Constipati on. ferrous 2020-0 Yes [id number] 325mg Take 1 [facility] radha sulfate 325 6-15 tablet by [facility] of mg (65 mg 00:00: mouth 2 [place] iron) 00 (two) Medical tablet times Branch daily. docusate 2020-0 Yes [id number] 240mg Take 1 [facility] calcium 240 6-15 capsule by [facility] of mg capsule 00:00: mouth once [place] 00 daily as Medical needed for Branch Constipati on. docusate 2020-0 Yes [id number] 240mg Take 1 [facility] calcium 240 6-15 capsule by [facility] of mg capsule 00:00: mouth once [place] 00 daily as Medical needed for Branch Constipati on. ferrous 2020-0 Yes [id number] 325mg Take 1 [facility] radha sulfate 325 6-15 tablet by [facility] of mg (65 mg 00:00: mouth 2 [place] iron) 00 (two) Medical tablet times Branch daily. docusate 2020-0 Yes [id number] 240mg Take 1 [facility] calcium 240 6-15 capsule by [facility] of mg capsule 00:00: mouth once [place] 00 daily as Medical needed for Branch Constipati on. docusate 2020-0 Yes [id number] 240mg Take 1 [facility] calcium 240 6-15 capsule by [facility] of mg capsule 00:00: mouth once [place] 00 daily as Medical needed for Branch Constipati on. ferrous 2020-0 Yes [id number] 325mg Take 1 [facility] radha sulfate 325 6-15 tablet by [facility] of mg (65 mg 00:00: mouth 2 [place] iron) 00 (two) Medical tablet times Branch daily. docusate 2020-0 Yes [id number] 240mg Take 1 [facility] calcium 240 6-15 capsule by [facility] of mg capsule 00:00: mouth once [place] 00 daily as Medical needed for Branch Constipati on. docusate 2020-0 Yes [id number] 240mg Take 1 [facility] calcium 240 6-15 capsule by [facility] of mg capsule 00:00: mouth once [place] 00 daily as Medical needed for Branch Constipati on. ferrous 2020-0 Yes [id number] 325mg Take 1 [facility] radha sulfate 325 6-15 tablet by [facility] of mg (65 mg 00:00: mouth 2 [place] iron) 00 (two) Medical tablet times Branch daily. docusate 2020-0 Yes [id number] 240mg Take 1 [facility] calcium 240 6-15 capsule by [facility] of mg capsule 00:00: mouth once [place] 00 daily as Medical needed for Branch Constipati on. docusate 2020-0 Yes [id number] 240mg Take 1 [facility] calcium 240 6-15 capsule by [facility] of mg capsule 00:00: mouth once [place] 00 daily as Medical needed for Branch Constipati on. ferrous 2020-0 Yes [id number] 325mg Take 1 [facility] radha sulfate 325 6-15 tablet by [facility] of mg (65 mg 00:00: mouth 2 [place] iron) 00 (two) Medical tablet times Branch daily. docusate 2020-0 Yes [id number] 240mg Take 1 [facility] calcium 240 6-15 capsule by [facility] of mg capsule 00:00: mouth once [place] 00 daily as Medical needed for Branch Constipati on. docusate 2020-0 Yes [id number] 240mg Take 1 [facility] calcium 240 6-15 capsule by [facility] of mg capsule 00:00: mouth once [place] 00 daily as Medical needed for Branch Constipati on. ferrous 2020-0 Yes [id number] 325mg Take 1 [facility] radha sulfate 325 6-15 tablet by [facility] of mg (65 mg 00:00: mouth 2 [place] iron) 00 (two) Medical tablet times Branch daily. docusate 2020-0 Yes [id number] 240mg Take 1 [facility] calcium 240 6-15 capsule by [facility] of mg capsule 00:00: mouth once [place] 00 daily as Medical needed for Branch Constipati on. docusate 2020-0 Yes [id number] 240mg Take 1 [facility] calcium 240 6-15 capsule by [facility] of mg capsule 00:00: mouth once [place] 00 daily as Medical needed for Branch Constipati on. ferrous 2020-0 Yes [id number] 325mg Take 1 [facility] radha sulfate 325 6-15 tablet by [facility] of mg (65 mg 00:00: mouth 2 [place] iron) 00 (two) Medical tablet times Branch daily. docusate 2020-0 Yes [id number] 240mg Take 1 [facility] calcium 240 6-15 capsule by [facility] of mg capsule 00:00: mouth once [place] 00 daily as Medical needed for Branch Constipati on. docusate 2020-0 Yes [id number] 240mg Take 1 [facility] calcium 240 6-15 capsule by [facility] of mg capsule 00:00: mouth once [place] 00 daily as Medical needed for Branch Constipati on. ferrous 2020-0 Yes [id number] 325mg Take 1 [facility] radha sulfate 325 6-15 tablet by [facility] of mg (65 mg 00:00: mouth 2 [place] iron) 00 (two) Medical tablet times Branch daily. docusate 2020-0 Yes [id number] 240mg Take 1 [facility] calcium 240 6-15 capsule by [facility] of mg capsule 00:00: mouth once [place] 00 daily as Medical needed for Branch Constipati on. docusate 2020-0 Yes [id number] 240mg Take 1 [facility] calcium 240 6-15 capsule by [facility] of mg capsule 00:00: mouth once [place] 00 daily as Medical needed for Branch Constipati on. ferrous 2020-0 Yes [id number] 325mg Take 1 [facility] radha sulfate 325 6-15 tablet by [facility] of mg (65 mg 00:00: mouth 2 [place] iron) 00 (two) Medical tablet times Branch daily. docusate 2020-0 Yes [id number] 240mg Take 1 [facility] calcium 240 6-15 capsule by [facility] of mg capsule 00:00: mouth once [place] 00 daily as Medical needed for Branch Constipati on. docusate 2020-0 Yes [id number] 240mg Take 1 [facility] calcium 240 6-15 capsule by [facility] of mg capsule 00:00: mouth once [place] 00 daily as Medical needed for Branch Constipati on. ferrous 2020-0 Yes [id number] 325mg Take 1 [facility] radha sulfate 325 6-15 tablet by [facility] of mg (65 mg 00:00: mouth 2 [place] iron) 00 (two) Medical tablet times Branch daily. docusate 2020-0 Yes [id number] 240mg Take 1 [facility] calcium 240 6-15 capsule by [facility] of mg capsule 00:00: mouth once [place] 00 daily as Medical needed for Branch Constipati on. docusate 2020-0 Yes [id number] 240mg Take 1 [facility] calcium 240 6-15 capsule by [facility] of mg capsule 00:00: mouth once [place] 00 daily as Medical needed for Branch Constipati on. ferrous 2020-0 Yes [id number] 325mg Take 1 [facility] radha sulfate 325 6-15 tablet by [facility] of mg (65 mg 00:00: mouth 2 [place] iron) 00 (two) Medical tablet times Branch daily. docusate 2020-0 Yes [id number] 240mg Take 1 [facility] calcium 240 6-15 capsule by [facility] of mg capsule 00:00: mouth once [place] 00 daily as Medical needed for Branch Constipati on. docusate 2020-0 Yes [id number] 240mg Take 1 [facility] calcium 240 6-15 capsule by [facility] y of mg capsule 00:00: mouth once [place] 00 daily as Medical needed for Branch Constipati on. ferrous 2020-0 Yes [id number] 325mg Take 1 [facility] radha sulfate 325 6-15 tablet by [facility] of mg (65 mg 00:00: mouth 2 [place] iron) 00 (two) Medical tablet times Branch daily. docusate 2020-0 Yes [id number] 240mg Take 1 [facility] calcium 240 6-15 capsule by [facility] of mg capsule 00:00: mouth once [place] 00 daily as Medical needed for Branch Constipati on. docusate 2020-0 Yes [id number] 240mg Take 1 [facility] calcium 240 6-15 capsule by it y of mg capsule 00:00: mouth once [place] 00 daily as Medical needed for Branch Constipati on. ferrous 2020-0 Yes [id number] 325mg Take 1 [facility] radha sulfate 325 6-15 tablet by [facility] of mg (65 mg 00:00: mouth 2 [place] iron) 00 (two) Medical tablet times Branch daily. docusate 2020-0 Yes [id number] 240mg Take 1 [facility] calcium 240 6-15 capsule by [facility] of mg capsule 00:00: mouth once [place] 00 daily as Medical needed for Branch Constipati on. docusate 2020-0 Yes [id number] 240mg Take 1 [facility] calcium 240 6-15 capsule by [facility] of mg capsule 00:00: mouth once [place] 00 daily as Medical needed for Branch Constipati on. ferrous 2020-0 Yes [id number] 325mg Take 1 [facility] radha sulfate 325 6-15 tablet by [facility] of mg (65 mg 00:00: mouth 2 [place] iron) 00 (two) Medical tablet times Branch daily. docusate 2020-0 Yes [id number] 240mg Take 1 [facility] calcium 240 6-15 capsule by [facility] of mg capsule 00:00: mouth once [place] 00 daily as Medical needed for Branch Constipati on. docusate 2020-0 Yes [id number] 240mg Take 1 [facility] calcium 240 6-15 capsule by [facility] y of mg capsule 00:00: mouth once [place] 00 daily as Medical needed for Branch Constipati on. ferrous 2020-0 Yes [id number] 325mg Take 1 [facility] radha sulfate 325 6-15 tablet by [facility] of mg (65 mg 00:00: mouth 2 [place] iron) 00 (two) Medical tablet times Branch daily. docusate 2020-0 Yes [id number] 240mg Take 1 [facility] calcium 240 6-15 capsule by [facility] y of mg capsule 00:00: mouth once [place] 00 daily as Medical needed for Branch Constipati on. docusate 2020-0 Yes [id number] 240mg Take 1 [facility] calcium 240 6-15 capsule by [facility] of mg capsule 00:00: mouth once [place] 00 daily as Medical needed for Branch Constipati on. ferrous 2020-0 Yes [id number] 325mg Take 1 [facility] radha sulfate 325 6-15 tablet by [facility] of mg (65 mg 00:00: mouth 2 [place] iron) 00 (two) Medical tablet times Branch daily. docusate 2020-0 Yes [id number] 240mg Take 1 [facility] calcium 240 6-15 capsule by [facility] of mg capsule 00:00: mouth once [place] 00 daily as Medical needed for Branch Constipati on. docusate 2020-0 Yes [id number] 240mg Take 1 [facility] calcium 240 6-15 capsule by [facility] y of mg capsule 00:00: mouth once [place] 00 daily as Medical needed for Branch Constipati on. ferrous 2020-0 Yes [id number] 325mg Take 1 [facility] radha sulfate 325 6-15 tablet by [facility] of mg (65 mg 00:00: mouth 2 [place] iron) 00 (two) Medical tablet times Branch daily. docusate 2020-0 Yes [id number] 240mg Take 1 [facility] calcium 240 6-15 capsule by [facility] of mg capsule 00:00: mouth once [place] 00 daily as Medical needed for Branch Constipati on. docusate 2020-0 Yes [id number] 240mg Take 1 [facility] calcium 240 6-15 capsule by [facility] of mg capsule 00:00: mouth once [place] 00 daily as Medical needed for Branch Constipati on. ferrous 2020-0 Yes [id number] 325mg Take 1 [facility] radha sulfate 325 6-15 tablet by [facility] of mg (65 mg 00:00: mouth 2 [place] iron) 00 (two) Medical tablet times Branch daily. docusate 2020-0 Yes [id number] 240mg Take 1 [facility] calcium 240 6-15 capsule by [facility] of mg capsule 00:00: mouth once [place] 00 daily as Medical needed for Branch Constipati on. ibuprofen 2020-0 Yes [id number] 600mg Take 1 [facility] 600 mg 6-15 tablet by [facility] of tablet 00:00: mouth [place] 00 every 6 Medical (six) Branch hours as needed for Pain (scale 1-3) or Pain (scale 4-6). 2020-0 Yes [id number] 1{tbl} Take 1 [facility] vitamin 6-15 tablet by [facility] of w/FA tablet 00:00: mouth [place] 00 daily. Medical Branch 2020-0 Yes [id number] 1{tbl} Take 1 [facility] vitamin 6-15 tablet by [facility] of w/FA tablet 00:00: mouth [place] 00 daily. Medical Branch docusate 2020-0 Yes [id number] 240mg Take 1 [facility] calcium 240 6-15 capsule by it y of mg capsule 00:00: mouth once [place] 00 daily as Medical needed for Branch Constipati on. ferrous 2020-0 Yes [id number] 325mg Take 1 [facility] radha sulfate 325 6-15 tablet by [facility] of mg (65 mg 00:00: mouth 2 [place] iron) 00 (two) Medical tablet times Branch daily. ibuprofen 2020-0 Yes [id number] 600mg Take 1 [facility] 600 mg 6-15 tablet by [facility] of tablet 00:00: mouth [place] 00 every 6 Medical (six) Branch hours as needed (Pain). Take with food or milk. docusate 2020-0 Yes [id number] 240mg Take 1 [facility] calcium 240 6-15 capsule by it y of mg capsule 00:00: mouth once [place] 00 daily as Medical needed for Branch Constipati on. ibuprofen 2020-0 Yes [id number] 600mg Take 1 [facility] 600 mg 6-15 tablet by [facility] of tablet 00:00: mouth [place] 00 every 6 Medical (six) Branch hours as needed for Pain (scale 1-3) or Pain (scale 4-6). 2020-0 Yes [id number] 1{tbl} Take 1 [facility] vitamin 6-15 tablet by [facility] of w/FA tablet 00:00: mouth [place] 00 daily. Medical Branch 2020-0 Yes [id number] 1{tbl} Take 1 [facility] vitamin 6-15 tablet by [facility] of w/FA tablet 00:00: mouth [place] 00 daily. Medical Branch docusate 2020-0 Yes [id number] 240mg Take 1 [facility] calcium 240 6-15 capsule by it y of mg capsule 00:00: mouth once [place] 00 daily as Medical needed for Branch Constipati on. ferrous 2020-0 Yes [id number] 325mg Take 1 [facility] radha sulfate 325 6-15 tablet by [facility] of mg (65 mg 00:00: mouth 2 [place] iron) 00 (two) Medical tablet times Branch daily. ibuprofen 2020-0 Yes [id number] 600mg Take 1 [facility] 600 mg 6-15 tablet by [facility] of tablet 00:00: mouth [place] 00 every 6 Medical (six) Branch hours as needed (Pain). Take with food or milk. docusate 2020-0 Yes [id number] 240mg Take 1 [facility] calcium 240 6-15 capsule by it y of mg capsule 00:00: mouth once [place] 00 daily as Medical needed for Branch Constipati on. ibuprofen 2020-0 Yes [id number] 600mg Take 1 [facility] 600 mg 6-15 tablet by [facility] of tablet 00:00: mouth [place] 00 every 6 Medical (six) Branch hours as needed for Pain (scale 1-3) or Pain (scale 4-6). 2020-0 Yes [id number] 1{tbl} Take 1 [facility] vitamin 6-15 tablet by [facility] of w/FA tablet 00:00: mouth [place] 00 daily. Medical Branch 2020-0 Yes [id number] 1{tbl} Take 1 [facility] vitamin 6-15 tablet by [facility] of w/FA tablet 00:00: mouth [place] 00 daily. Medical Branch docusate 2020-0 Yes [id number] 240mg Take 1 [facility] calcium 240 6-15 capsule by it y of mg capsule 00:00: mouth once [place] 00 daily as Medical needed for Branch Constipati on. ferrous 2020-0 Yes [id number] 325mg Take 1 [facility] radha sulfate 325 6-15 tablet by [facility] of mg (65 mg 00:00: mouth 2 [place] iron) 00 (two) Medical tablet times Branch daily. ibuprofen 2020-0 Yes [id number] 600mg Take 1 [facility] 600 mg 6-15 tablet by [facility] of tablet 00:00: mouth [place] 00 every 6 Medical (six) Branch hours as needed (Pain). Take with food or milk. docusate 2020-0 Yes [id number] 240mg Take 1 [facility] calcium 240 6-15 capsule by it y of mg capsule 00:00: mouth once [place] 00 daily as Medical needed for Branch Constipati on. ibuprofen 2020-0 Yes [id number] 600mg Take 1 [facility] 600 mg 6-15 tablet by [facility] of tablet 00:00: mouth [place] 00 every 6 Medical (six) Branch hours as needed for Pain (scale 1-3) or Pain (scale 4-6). 2020-0 Yes [id number] 1{tbl} Take 1 [facility] vitamin 6-15 tablet by [facility] of w/FA tablet 00:00: mouth [place] 00 daily. Medical Branch 2020-0 Yes [id number] 1{tbl} Take 1 [facility] vitamin 6-15 tablet by [facility] of w/FA tablet 00:00: mouth [place] 00 daily. Medical Branch docusate 2020-0 Yes [id number] 240mg Take 1 [facility] calcium 240 6-15 capsule by it y of mg capsule 00:00: mouth once [place] 00 daily as Medical needed for Branch Constipati on. ferrous 2020-0 Yes [id number] 325mg Take 1 [facility] radha sulfate 325 6-15 tablet by [facility] of mg (65 mg 00:00: mouth 2 [place] iron) 00 (two) Medical tablet times Branch daily. ibuprofen 2020-0 Yes [id number] 600mg Take 1 [facility] 600 mg 6-15 tablet by [facility] of tablet 00:00: mouth [place] 00 every 6 Medical (six) Branch hours as needed (Pain). Take with food or milk. docusate 2020-0 Yes [id number] 240mg Take 1 [facility] calcium 240 6-15 capsule by it y of mg capsule 00:00: mouth once [place] 00 daily as Medical needed for Branch Constipati on. ibuprofen 2020-0 Yes [id number] 600mg Take 1 [facility] 600 mg 6-15 tablet by [facility] of tablet 00:00: mouth [place] 00 every 6 Medical (six) Branch hours as needed for Pain (scale 1-3) or Pain (scale 4-6). 2020-0 Yes [id number] 1{tbl} Take 1 [facility] vitamin 6-15 tablet by [facility] of w/FA tablet 00:00: mouth [place] 00 daily. Medical Branch 2020-0 Yes [id number] 1{tbl} Take 1 [facility] vitamin 6-15 tablet by [facility] of w/FA tablet 00:00: mouth [place] 00 daily. Medical Branch docusate 2020-0 Yes [id number] 240mg Take 1 [facility] calcium 240 6-15 capsule by it y of mg capsule 00:00: mouth once [place] 00 daily as Medical needed for Branch Constipati on. ferrous 2020-0 Yes [id number] 325mg Take 1 [facility] radha sulfate 325 6-15 tablet by [facility] of mg (65 mg 00:00: mouth 2 [place] iron) 00 (two) Medical tablet times Branch daily. ibuprofen 2020-0 Yes [id number] 600mg Take 1 [facility] 600 mg 6-15 tablet by [facility] of tablet 00:00: mouth [place] 00 every 6 Medical (six) Branch hours as needed (Pain). Take with food or milk. docusate 2020-0 Yes [id number] 240mg Take 1 [facility] calcium 240 6-15 capsule by it y of mg capsule 00:00: mouth once [place] 00 daily as Medical needed for Branch Constipati on. ibuprofen 2020-0 Yes [id number] 600mg Take 1 [facility] 600 mg 6-15 tablet by [facility] of tablet 00:00: mouth [place] 00 every 6 Medical (six) Branch hours as needed for Pain (scale 1-3) or Pain (scale 4-6). 2020-0 Yes [id number] 1{tbl} Take 1 [facility] vitamin 6-15 tablet by [facility] of w/FA tablet 00:00: mouth [place] 00 daily. Medical Branch 2020-0 Yes [id number] 1{tbl} Take 1 [facility] vitamin 6-15 tablet by [facility] of w/FA tablet 00:00: mouth [place] 00 daily. Medical Branch docusate 2020-0 Yes [id number] 240mg Take 1 [facility] calcium 240 6-15 capsule by it y of mg capsule 00:00: mouth once [place] 00 daily as Medical needed for Branch Constipati on. ferrous 2020-0 Yes [id number] 325mg Take 1 [facility] radha sulfate 325 6-15 tablet by [facility] of mg (65 mg 00:00: mouth 2 [place] iron) 00 (two) Medical tablet times Branch daily. ibuprofen 2020-0 Yes [id number] 600mg Take 1 [facility] 600 mg 6-15 tablet by [facility] of tablet 00:00: mouth [place] 00 every 6 Medical (six) Branch hours as needed (Pain). Take with food or milk. docusate 2020-0 Yes [id number] 240mg Take 1 [facility] calcium 240 6-15 capsule by it y of mg capsule 00:00: mouth once [place] 00 daily as Medical needed for Branch Constipati on. ibuprofen 2020-0 Yes [id number] 600mg Take 1 [facility] 600 mg 6-15 tablet by [facility] of tablet 00:00: mouth [place] 00 every 6 Medical (six) Branch hours as needed for Pain (scale 1-3) or Pain (scale 4-6). 2020-0 Yes [id number] 1{tbl} Take 1 [facility] vitamin 6-15 tablet by [facility] of w/FA tablet 00:00: mouth [place] 00 daily. Medical Branch 2020-0 Yes [id number] 1{tbl} Take 1 [facility] vitamin 6-15 tablet by [facility] of w/FA tablet 00:00: mouth [place] 00 daily. Medical Branch docusate 2020-0 Yes [id number] 240mg Take 1 [facility] calcium 240 6-15 capsule by it y of mg capsule 00:00: mouth once [place] 00 daily as Medical needed for Branch Constipati on. ferrous 2020-0 Yes [id number] 325mg Take 1 [facility] radha sulfate 325 6-15 tablet by [facility] of mg (65 mg 00:00: mouth 2 [place] iron) 00 (two) Medical tablet times Branch daily. ibuprofen 2020-0 Yes [id number] 600mg Take 1 [facility] 600 mg 6-15 tablet by [facility] of tablet 00:00: mouth [place] 00 every 6 Medical (six) Branch hours as needed (Pain). Take with food or milk. docusate 2020-0 Yes [id number] 240mg Take 1 [facility] calcium 240 6-15 capsule by it y of mg capsule 00:00: mouth once [place] 00 daily as Medical needed for Branch Constipati on. ibuprofen 2020-0 Yes [id number] 600mg Take 1 [facility] 600 mg 6-15 tablet by [facility] of tablet 00:00: mouth [place] 00 every 6 Medical (six) Branch hours as needed for Pain (scale 1-3) or Pain (scale 4-6). 2020-0 Yes [id number] 1{tbl} Take 1 [facility] vitamin 6-15 tablet by [facility] of w/FA tablet 00:00: mouth [place] 00 daily. Medical Branch 2020-0 Yes [id number] 1{tbl} Take 1 [facility] vitamin 6-15 tablet by [facility] of w/FA tablet 00:00: mouth [place] 00 daily. Medical Branch docusate 2020-0 Yes [id number] 240mg Take 1 [facility] calcium 240 6-15 capsule by it y of mg capsule 00:00: mouth once [place] 00 daily as Medical needed for Branch Constipati on. ferrous 2020-0 Yes [id number] 325mg Take 1 [facility] radha sulfate 325 6-15 tablet by [facility] of mg (65 mg 00:00: mouth 2 [place] iron) 00 (two) Medical tablet times Branch daily. ibuprofen 2020-0 Yes [id number] 600mg Take 1 [facility] 600 mg 6-15 tablet by [facility] of tablet 00:00: mouth [place] 00 every 6 Medical (six) Branch hours as needed (Pain). Take with food or milk. docusate 2020-0 Yes [id number] 240mg Take 1 [facility] calcium 240 6-15 capsule by it y of mg capsule 00:00: mouth once [place] 00 daily as Medical needed for Branch Constipati on. ibuprofen 2020-0 Yes [id number] 600mg Take 1 [facility] 600 mg 6-15 tablet by [facility] of tablet 00:00: mouth [place] 00 every 6 Medical (six) Branch hours as needed for Pain (scale 1-3) or Pain (scale 4-6). 2020-0 Yes [id number] 1{tbl} Take 1 [facility] vitamin 6-15 tablet by [facility] of w/FA tablet 00:00: mouth [place] 00 daily. Medical Branch 2020-0 Yes [id number] 1{tbl} Take 1 [facility] vitamin 6-15 tablet by [facility] of w/FA tablet 00:00: mouth [place] 00 daily. Medical Branch docusate 2020-0 Yes [id number] 240mg Take 1 [facility] calcium 240 6-15 capsule by it y of mg capsule 00:00: mouth once [place] 00 daily as Medical needed for Branch Constipati on. ferrous 2020-0 Yes [id number] 325mg Take 1 [facility] radha sulfate 325 6-15 tablet by [facility] of mg (65 mg 00:00: mouth 2 [place] iron) 00 (two) Medical tablet times Branch daily. ibuprofen 2020-0 Yes [id number] 600mg Take 1 [facility] 600 mg 6-15 tablet by [facility] of tablet 00:00: mouth [place] 00 every 6 Medical (six) Branch hours as needed (Pain). Take with food or milk. docusate 2020-0 Yes [id number] 240mg Take 1 [facility] calcium 240 6-15 capsule by it y of mg capsule 00:00: mouth once [place] 00 daily as Medical needed for Branch Constipati on. ibuprofen 2020-0 Yes [id number] 600mg Take 1 [facility] 600 mg 6-15 tablet by [facility] of tablet 00:00: mouth [place] 00 every 6 Medical (six) Branch hours as needed for Pain (scale 1-3) or Pain (scale 4-6). 2020-0 Yes [id number] 1{tbl} Take 1 [facility] vitamin 6-15 tablet by [facility] of w/FA tablet 00:00: mouth [place] 00 daily. Medical Branch 2020-0 Yes [id number] 1{tbl} Take 1 [facility] vitamin 6-15 tablet by [facility]y of w/FA tablet 00:00: mouth [place] 00 daily. Medical Branch docusate 2020-0 Yes [id number] 240mg Take 1 [facility] calcium 240 6-15 capsule by it y of mg capsule 00:00: mouth once [place] 00 daily as Medical needed for Branch Constipati on. ferrous 2020-0 Yes [id number] 325mg Take 1 [facility] radha sulfate 325 6-15 tablet by ity of mg (65 mg 00:00: mouth 2 [place] iron) 00 (two) Medical tablet times Branch daily. ibuprofen 2020-0 Yes [id number] 600mg Take 1 [facility] 600 mg 6-15 tablet by ity of tablet 00:00: mouth [place] 00 every 6 Medical (six) Branch hours as needed (Pain). Take with food or milk. docusate 2020-0 Yes [id number] 240mg Take 1 [facility] n[facility] calcium 240 6-15 capsule by it y of mg capsule 00:00: mouth once [place] 00 daily as Medical needed for Branch Constipati on. ibuprofen 2020-0 Yes [id number] 600mg Take 1 [facility] 600 mg 6-15 tablet by ity of tablet 00:00: mouth [place] 00 every 6 Medical (six) Branch hours as needed for Pain (scale 1-3) or Pain (scale 4-6). 2020-0 Yes [id number] 1{tbl} Take 1 [facility] vitamin 6-15 tablet by ity of w/FA tablet 00:00: mouth [place] 00 daily. Medical Branch 2020-0 Yes [id number] 1{tbl} Take 1 [facility] vitamin 6-15 tablet by ity of w/FA tablet 00:00: mouth [place] 00 daily. Medical Branch docusate 2020-0 Yes [id number] 240mg Take 1 [facility] n[facility] calcium 240 6-15 capsule by it y of mg capsule 00:00: mouth once [place] 00 daily as Medical needed for Branch Constipati on. ferrous 2020-0 Yes [id number] 325mg Take 1 Un radha sulfate 325 6-15 tablet by ity of mg (65 mg 00:00: mouth 2 [place] iron) 00 (two) Medical tablet times Branch daily. ibuprofen 2020-0 Yes [id number] 600mg Take 1 [facility] 600 mg 6-15 tablet by ity of tablet 00:00: mouth [place] 00 every 6 Medical (six) Branch hours as needed (Pain). Take with food or milk. docusate 2020-0 Yes [id number] 240mg Take 1 [facility] n[facility] calcium 240 6-15 capsule by it y of mg capsule 00:00: mouth once [place] 00 daily as Medical needed for Branch Constipati on. ibuprofen 2020-0 Yes [id number] 600mg Take 1 [facility] 600 mg 6-15 tablet by ity of tablet 00:00: mouth [place] 00 every 6 Medical (six) Branch hours as needed for Pain (scale 1-3) or Pain (scale 4-6). 2020-0 Yes [id number] 1{tbl} Take 1 [facility] vitamin 6-15 tablet by ity of w/FA tablet 00:00: mouth [place] 00 daily. Medical Branch 2020-0 Yes [id number] 1{tbl} Take 1 [facility] vitamin 6-15 tablet by ity of w/FA tablet 00:00: mouth [place] 00 daily. Medical Branch docusate 2020-0 Yes [id number] 240mg Take 1 [facility] n[facility] calcium 240 6-15 capsule by it y of mg capsule 00:00: mouth once [place] 00 daily as Medical needed for Branch Constipati on. ferrous 2020-0 Yes [id number] 325mg Take 1 [facility] radha sulfate 325 6-15 tablet by ity of mg (65 mg 00:00: mouth 2 [place] iron) 00 (two) Medical tablet times Branch daily. ibuprofen 2020-0 Yes [id number] 600mg Take 1 [facility] 600 mg 6-15 tablet by ity of tablet 00:00: mouth [place] 00 every 6 Medical (six) Branch hours as needed (Pain). Take with food or milk. docusate 2020-0 Yes [id number] 240mg Take 1 [facility] n[facility] calcium 240 6-15 capsule by it y of mg capsule 00:00: mouth once [place] 00 daily as Medical needed for Branch Constipati on. ibuprofen 2020-0 Yes [id number] 600mg Take 1 [facility] 600 mg 6-15 tablet by ity of tablet 00:00: mouth [place] 00 every 6 Medical (six) Branch hours as needed for Pain (scale 1-3) or Pain (scale 4-6). 2020-0 Yes [id number] 1{tbl} Take 1 [facility] vitamin 6-15 tablet by ity of w/FA tablet 00:00: mouth [place] 00 daily. Medical Branch 2020-0 Yes [id number] 1{tbl} Take 1 [facility] vitamin 6-15 tablet by ity of w/FA tablet 00:00: mouth [place] 00 daily. Medical Branch docusate 2020-0 Yes [id number] 240mg Take 1 [facility] n[facility] calcium 240 6-15 capsule by it y of mg capsule 00:00: mouth once [place] 00 daily as Medical needed for Branch Constipati on. ferrous 2020-0 Yes [id number] 325mg Take 1 [facility] radha sulfate 325 6-15 tablet by ity of mg (65 mg 00:00: mouth 2 [place] iron) 00 (two) Medical tablet times Branch daily. ibuprofen 2020-0 Yes [id number] 600mg Take 1 [facility] 600 mg 6-15 tablet by ity of tablet 00:00: mouth [place] 00 every 6 Medical (six) Branch hours as needed (Pain). Take with food or milk. docusate 2020-0 Yes [id number] 240mg Take 1 [facility] nivers calcium 240 6-15 capsule by it y of mg capsule 00:00: mouth once [place] 00 daily as Medical needed for Branch Constipati on. ibuprofen 2020-0 Yes [id number] 600mg Take 1 [facility] 600 mg 6-15 tablet by ity of tablet 00:00: mouth [place] 00 every 6 Medical (six) Branch hours as needed for Pain (scale 1-3) or Pain (scale 4-6). 2020-0 Yes [id number] 1{tbl} Take 1 [facility] vitamin 6-15 tablet by ity of w/FA tablet 00:00: mouth [place] 00 daily. Medical Branch 2020-0 Yes [id number] 1{tbl} Take 1 [facility] vitamin 6-15 tablet by ity of w/FA tablet 00:00: mouth [place] 00 daily. Medical Branch docusate 2020-0 Yes [id number] 240mg Take 1 [facility] nivers calcium 240 6-15 capsule by it y of mg capsule 00:00: mouth once [place] 00 daily as Medical needed for Branch Constipati on. ferrous 2020-0 Yes [id number] 325mg Take 1 [facility] radha sulfate 325 6-15 tablet by ity of mg (65 mg 00:00: mouth 2 [place] iron) 00 (two) Medical tablet times Branch daily. ibuprofen 2020-0 Yes [id number] 600mg Take 1 [facility] 600 mg 6-15 tablet by ity of tablet 00:00: mouth [place] 00 every 6 Medical (six) Branch hours as needed (Pain). Take with food or milk. docusate 2020-0 Yes [id number] 240mg Take 1 [facility] n[facility] calcium 240 6-15 capsule by it y of mg capsule 00:00: mouth once [place] 00 daily as Medical needed for Branch Constipati on. ibuprofen 2020-0 Yes [id number] 600mg Take 1 [facility] 600 mg 6-15 tablet by ity of tablet 00:00: mouth [place] 00 every 6 Medical (six) Branch hours as needed for Pain (scale 1-3) or Pain (scale 4-6). 2020-0 Yes [id number] 1{tbl} Take 1 [facility] vitamin 6-15 tablet by ity of w/FA tablet 00:00: mouth [place] 00 daily. Medical Branch 2020-0 Yes [id number] 1{tbl} Take 1 [facility] vitamin 6-15 tablet by ity of w/FA tablet 00:00: mouth [place] 00 daily. Medical Branch docusate 2020-0 Yes [id number] 240mg Take 1 [facility] nivers calcium 240 6-15 capsule by it y of mg capsule 00:00: mouth once [place] 00 daily as Medical needed for Branch Constipati on. ferrous 2020-0 Yes [id number] 325mg Take 1 [facility] radha sulfate 325 6-15 tablet by ity of mg (65 mg 00:00: mouth 2 [place] iron) 00 (two) Medical tablet times Branch daily. ibuprofen 2020-0 Yes [id number] 600mg Take 1 [facility] 600 mg 6-15 tablet by ity of tablet 00:00: mouth [place] 00 every 6 Medical (six) Branch hours as needed (Pain). Take with food or milk. docusate 2020-0 Yes [id number] 240mg Take 1 [facility] n[facility] calcium 240 6-15 capsule by it y of mg capsule 00:00: mouth once [place] 00 daily as Medical needed for Branch Constipati on. ibuprofen 2020-0 Yes [id number] 600mg Take 1 [facility] 600 mg 6-15 tablet by ity of tablet 00:00: mouth [place] 00 every 6 Medical (six) Branch hours as needed for Pain (scale 1-3) or Pain (scale 4-6). acetaminoph 2020-0 2020- No [id number] 650mg Take 2 [facility] en 325 mg 6-15 06-16 tablets by ity of tablet 00:00: 04:59 mouth [place] 00 :00 every 6 Medical (six) Branch hours as needed for Pain (scale 1-3). acetaminoph 2020- No [id number] 650mg Take 2 [facility] en 325 mg 6-15 06-16 tablets by ity of tablet 00:00: 04:59 mouth [place] 00 :00 every 6 Medical (six) Branch hours as needed for Pain (scale 1-3). acetaminoph 2020- No [id number] 650mg Take 2 [facility] en 325 mg 6-15 06-16 tablets by ity of tablet 00:00: 04:59 mouth [place] 00 :00 every 6 Medical (six) Branch hours as needed for Pain (scale 1-3). acetaminoph 2020- No [id number] 650mg Take 2 [facility] en 325 mg 6-15 06-16 tablets by ity of tablet 00:00: 04:59 mouth [place] 00 :00 every 6 Medical (six) Branch hours as needed for Pain (scale 1-3). acetaminoph 2020- No [id number] 650mg Take 2 [facility] en 325 mg 6-15 06-16 tablets by ity of tablet 00:00: 04:59 mouth [place] 00 :00 every 6 Medical (six) Branch hours as needed for Pain (scale 1-3). acetaminoph 2020- No [id number] 650mg Take 2 [facility] en 325 mg 6-15 06-16 tablets by ity of tablet 00:00: 04:59 mouth [place] 00 :00 every 6 Medical (six) Branch hours as needed for Pain (scale 1-3). acetaminoph 2020- No [id number] 650mg Take 2 [facility] en 325 mg 6-15 06-16 tablets by ity of tablet 00:00: 04:59 mouth [place] 00 :00 every 6 Medical (six) Branch hours as needed for Pain (scale 1-3). acetaminoph 2020- No [id number] 650mg Take 2 [facility] en 325 mg 6-15 06-16 tablets by ity of tablet 00:00: 04:59 mouth [place] 00 :00 every 6 Medical (six) Branch hours as needed for Pain (scale 1-3). acetaminoph 2020- No [id number] 650mg Take 2 [facility] en 325 mg 6-15 06-16 tablets by ity of tablet 00:00: 04:59 mouth [place] 00 :00 every 6 Medical (six) Branch hours as needed for Pain (scale 1-3). acetaminoph 2020- No [id number] 650mg Take 2 [facility] en 325 mg 6-15 06-16 tablets by ity of tablet 00:00: 04:59 mouth [place] 00 :00 every 6 Medical (six) Branch hours as needed for Pain (scale 1-3). acetaminoph 2020- No [id number] 650mg Take 2 [facility] en 325 mg 6-15 06-16 tablets by ity of tablet 00:00: 04:59 mouth [place] 00 :00 every 6 Medical (six) Branch hours as needed for Pain (scale 1-3). acetaminoph 2020- No [id number] 650mg Take 2 [facility] en 325 mg 6-15 06-16 tablets by ity of tablet 00:00: 04:59 mouth [place] 00 :00 every 6 Medical (six) Branch hours as needed for Pain (scale 1-3). acetaminoph 2020- No [id number] 650mg Take 2 [facility] en 325 mg 6-15 06-16 tablets by ity of tablet 00:00: 04:59 mouth [place] 00 :00 every 6 Medical (six) Branch hours as needed for Pain (scale 1-3). acetaminoph 2020- No [id number] 650mg Take 2 [facility] en 325 mg 6-15 06-16 tablets by ity of tablet 00:00: 04:59 mouth [place] 00 :00 every 6 Medical (six) Branch hours as needed for Pain (scale 1-3). acetaminoph 2020- No [id number] 650mg Take 2 [facility] en 325 mg 6-15 06-16 tablets by ity of tablet 00:00: 04:59 mouth [place] 00 :00 every 6 Medical (six) Branch hours as needed for Pain (scale 1-3). acetaminoph 2020- No [id number] 650mg Take 2 [facility] en 325 mg 6-15 06-16 tablets by ity of tablet 00:00: 04:59 mouth [place] 00 :00 every 6 Medical (six) Branch hours as needed for Pain (scale 1-3). acetaminoph 2020- No [id number] 650mg Take 2 [facility] en 325 mg 6-15 06-16 tablets by ity of tablet 00:00: 04:59 mouth [place] 00 :00 every 6 Medical (six) Branch hours as needed for Pain (scale 1-3). acetaminoph 2020- No [id number] 650mg Take 2 [facility] en 325 mg 6-15 06-16 tablets by ity of tablet 00:00: 04:59 mouth [place] 00 :00 every 6 Medical (six) Branch hours as needed for Pain (scale 1-3). acetaminoph 2020- No [id number] 650mg Take 2 [facility] en 325 mg 6-15 06-16 tablets by ity of tablet 00:00: 04:59 mouth [place] 00 :00 every 6 Medical (six) Branch hours as needed for Pain (scale 1-3). acetaminoph 2020- No [id number] 650mg Take 2 [facility] en 325 mg 6-15 06-16 tablets by ity of tablet 00:00: 04:59 mouth [place] 00 :00 every 6 Medical (six) Branch hours as needed for Pain (scale 1-3). acetaminoph 2020- No [id number] 650mg Take 2 [facility] en 325 mg 6-15 06-16 tablets by ity of tablet 00:00: 04:59 mouth [place] 00 :00 every 6 Medical (six) Branch hours as needed for Pain (scale 1-3). acetaminoph 2020- No [id number] 650mg Take 2 [facility] en 325 mg 6-15 06-16 tablets by ity of tablet 00:00: 04:59 mouth [place] 00 :00 every 6 Medical (six) Branch hours as needed for Pain (scale 1-3). acetaminoph 2020- No [id number] 650mg Take 2 [facility] en 325 mg 6-15 06-16 tablets by ity of tablet 00:00: 04:59 mouth [place] 00 :00 every 6 Medical (six) Branch hours as needed for Pain (scale 1-3). acetaminoph 2020- No [id number] 650mg Take 2 [facility] en 325 mg 6-15 06-16 tablets by ity of tablet 00:00: 04:59 mouth [place] 00 :00 every 6 Medical (six) Branch hours as needed for Pain (scale 1-3). acetaminoph 2020- No [id number] 650mg Take 2 [facility] en 325 mg 6-15 06-16 tablets by ity of tablet 00:00: 04:59 mouth [place] 00 :00 every 6 Medical (six) Branch hours as needed for Pain (scale 1-3). acetaminoph 2020- No [id number] 650mg Take 2 [facility] en 325 mg 6-15 06-16 tablets by ity of tablet 00:00: 04:59 mouth [place] 00 :00 every 6 Medical (six) Branch hours as needed for Pain (scale 1-3). acetaminoph 2020- No [id number] 650mg Take 2 [facility] en 325 mg 6-15 06-16 tablets by ity of tablet 00:00: 04:59 mouth [place] 00 :00 every 6 Medical (six) Branch hours as needed for Pain (scale 1-3). acetaminoph 2020- No [id number] 650mg Take 2 [facility] en 325 mg 6-15 06-16 tablets by ity of tablet 00:00: 04:59 mouth [place] 00 :00 every 6 Medical (six) Branch hours as needed for Pain (scale 1-3). acetaminoph 2020- No [id number] 650mg Take 2 [facility] en 325 mg 6-15 06-16 tablets by ity of tablet 00:00: 04:59 mouth [place] 00 :00 every 6 Medical (six) Branch hours as needed for Pain (scale 1-3). acetaminoph 2020- No [id number] 650mg Take 2 [facility] en 325 mg 6-15 06-16 tablets by ity of tablet 00:00: 04:59 mouth [place] 00 :00 every 6 Medical (six) Branch hours as needed for Pain (scale 1-3). acetaminoph 2020- No [id number] 650mg Take 2 [facility] en 325 mg 6-15 06-16 tablets by ity of tablet 00:00: 04:59 mouth [place] 00 :00 every 6 Medical (six) Branch hours as needed for Pain (scale 1-3). acetaminoph 2020- No [id number] 650mg Take 2 [facility] en 325 mg 6-15 06-16 tablets by ity of tablet 00:00: 04:59 mouth [place] 00 :00 every 6 Medical (six) Branch hours as needed for Pain (scale 1-3). acetaminoph 2020- No [id number] 650mg Take 2 [facility] en 325 mg 6-15 06-16 tablets by ity of tablet 00:00: 04:59 mouth [place] 00 :00 every 6 Medical (six) Branch hours as needed for Pain (scale 1-3). acetaminoph 2020- No [id number] 650mg Take 2 [facility] en 325 mg 6-15 06-16 tablets by ity of tablet 00:00: 04:59 mouth [place] 00 :00 every 6 Medical (six) Branch hours as needed for Pain (scale 1-3). acetaminoph 2020- No [id number] 650mg Take 2 [facility] 325 mg 6-15 06-16 tablets by ity of tablet 00:00: 04:59 mouth [place] 00 :00 every 6 Medical (six) Branch hours as needed for Pain (scale 1-3). acetaminoph No [id number] 650mg Take 2 [facility] en 325 mg 6-15 06-16 tablets by ity of tablet 00:00: 04:59 mouth [place] 00 :00 every 6 Medical (six) Branch hours as needed for Pain (scale 1-3). acetaminoph 2020- No [id number] 650mg Take 2 [facility] en 325 mg 6-15 06-16 tablets by ity of tablet 00:00: 04:59 mouth [place] 00 :00 every 6 Medical (six) Branch hours as needed for Pain (scale 1-3). acetaminoph 2020- No [id number] 650mg Take 2 [facility] en 325 mg 6-15 06-16 tablets by ity of tablet 00:00: 04:59 mouth [place] 00 :00 every 6 Medical (six) Branch hours as needed for Pain (scale 1-3). acetaminoph 20202020- No [id number] 650mg Take 2 [facility] en 325 mg 6-15 06-16 tablets by ity of tablet 00:00: 04:59 mouth [place] 00 :00 every 6 Medical (six) Branch hours as needed for Pain (scale 1-3). acetaminoph 2020- No [id number] 650mg Take 2 [facility] en 325 mg 6-15 06-16 tablets by ity of tablet 00:00: 04:59 mouth [place] 00 :00 every 6 Medical (six) Branch hours as needed for Pain (scale 1-3). acetaminoph 2020- No [id number] 650mg Take 2 [facility] en 325 mg 6-15 06-16 tablets by ity of tablet 00:00: 04:59 mouth [place] 00 :00 every 6 Medical (six) Branch hours as needed for Pain (scale 1-3). acetaminoph 2020- No [id number] 650mg Take 2 [facility] en 325 mg 6-15 06-16 tablets by ity of tablet 00:00: 04:59 mouth [place] 00 :00 every 6 Medical (six) Branch hours as needed for Pain (scale 1-3). acetaminoph 2020- No [id number] 650mg Take 2 [facility] en 325 mg 6-15 06-16 tablets by ity of tablet 00:00: 04:59 mouth [place] 00 :00 every 6 Medical (six) Branch hours as needed for Pain (scale 1-3). acetaminoph 2020- No [id number] 650mg Take 2 [facility] en 325 mg 6-15 06-16 tablets by ity of tablet 00:00: 04:59 mouth [place] 00 :00 every 6 Medical (six) Branch hours as needed for Pain (scale 1-3). acetaminoph 2020- No [id number] 650mg Take 2 [facility] en 325 mg 6-15 06-16 tablets by ity of tablet 00:00: 04:59 mouth [place] 00 :00 every 6 Medical (six) Branch hours as needed for Pain (scale 1-3). acetaminoph 2020- No [id number] 650mg Take 2 [facility] en 325 mg 6-15 06-16 tablets by ity of tablet 00:00: 04:59 mouth [place] 00 :00 every 6 Medical (six) Branch hours as needed for Pain (scale 1-3). acetaminoph 2020- No [id number] 650mg Take 2 [facility] en 325 mg 6-15 06-16 tablets by ity of tablet 00:00: 04:59 mouth [place] 00 :00 every 6 Medical (six) Branch hours as needed for Pain (scale 1-3). acetaminoph 2020- No [id number] 650mg Take 2 [facility] en 325 mg 6-15 06-16 tablets by ity of tablet 00:00: 04:59 mouth [place] 00 :00 every 6 Medical (six) Branch hours as needed for Pain (scale 1-3). acetaminoph 2020- No [id number] 650mg Take 2 [facility] en 325 mg 6-15 06-16 tablets by ity of tablet 00:00: 04:59 mouth [place] 00 :00 every 6 Medical (six) Branch hours as needed for Pain (scale 1-3). acetaminoph 2020- No [id number] 650mg Take 2 [facility] en 325 mg 6-15 06-16 tablets by ity of tablet 00:00: 04:59 mouth [place] 00 :00 every 6 Medical (six) Branch hours as needed for Pain (scale 1-3). acetaminoph 2020- No [id number] 650mg Take 2 [facility] en 325 mg 6-15 06-16 tablets by ity of tablet 00:00: 04:59 mouth [place] 00 :00 every 6 Medical (six) Branch hours as needed for Pain (scale 1-3). acetaminoph 2020- No [id number] 650mg Take 2 [facility] 325 mg 6-15 06-16 tablets by ity of tablet 00:00: 04:59 mouth [place] 00 :00 every 6 Medical (six) Branch hours as needed for Pain (scale 1-3). acetaminoph 2020- No [id number] 650mg Take 2 [facility] en 325 mg 6-15 06-16 tablets by ity of tablet 00:00: 04:59 mouth [place] 00 :00 every 6 Medical (six) Branch hours as needed for Pain (scale 1-3). acetaminoph 2020- No [id number] 650mg Take 2 [facility] en 325 mg 6-15 06-16 tablets by ity of tablet 00:00: 04:59 mouth [place] 00 :00 every 6 Medical (six) Branch hours as needed for Pain (scale 1-3). acetaminoph 2020- No [id number] 650mg Take 2 [facility] en 325 mg 6-15 06-16 tablets by ity of tablet 00:00: 04:59 mouth [place] 00 :00 every 6 Medical (six) Branch hours as needed for Pain (scale 1-3). acetaminoph 2020- No [id number] 650mg Take 2 [facility] en 325 mg 6-15 06-16 tablets by ity of tablet 00:00: 04:59 mouth [place] 00 :00 every 6 Medical (six) Branch hours as needed for Pain (scale 1-3). acetaminoph 2020- No [id number] 650mg Take 2 [facility] en 325 mg 6-15 06-16 tablets by ity of tablet 00:00: 04:59 mouth [place] 00 :00 every 6 Medical (six) Branch hours as needed for Pain (scale 1-3). acetaminoph 2020- No [id number] 650mg Take 2 [facility] en 325 mg 6-15 06-16 tablets by ity of tablet 00:00: 04:59 mouth [place] 00 :00 every 6 Medical (six) Branch hours as needed for Pain (scale 1-3). acetaminoph 2020- No [id number] 650mg Take 2 [facility] en 325 mg 6-15 06-16 tablets by ity of tablet 00:00: 04:59 mouth [place] 00 :00 every 6 Medical (six) Branch hours as needed for Pain (scale 1-3). acetaminoph 2020- No [id number] 650mg Take 2 [facility] en 325 mg 6-15 06-16 tablets by ity of tablet 00:00: 04:59 mouth [place] 00 :00 every 6 Medical (six) Branch hours as needed for Pain (scale 1-3). acetaminoph 2020- No [id number] 650mg Take 2 [facility] en 325 mg 6-15 06-16 tablets by ity of tablet 00:00: 04:59 mouth [place] 00 :00 every 6 Medical (six) Branch hours as needed for Pain (scale 1-3). acetaminoph 2020- No [id number] 650mg Take 2 [facility] en 325 mg 6-15 06-16 tablets by ity of tablet 00:00: 04:59 mouth [place] 00 :00 every 6 Medical (six) Branch hours as needed for Pain (scale 1-3). acetaminoph 2020- No [id number] 650mg Take 2 [facility] en 325 mg 6-15 06-16 tablets by ity of tablet 00:00: 04:59 mouth [place] 00 :00 every 6 Medical (six) Branch hours as needed for Pain (scale 1-3). acetaminoph 2020- No [id number] 650mg Take 2 [facility] en 325 mg 6-15 06-16 tablets by ity of tablet 00:00: 04:59 mouth [place] 00 :00 every 6 Medical (six) Branch hours as needed for Pain (scale 1-3). acetaminoph 2020- No [id number] 650mg Take 2 [facility] en 325 mg 6-15 06-16 tablets by ity of tablet 00:00: 04:59 mouth [place] 00 :00 every 6 Medical (six) Branch hours as needed for Pain (scale 1-3). acetaminoph 2020- No [id number] 650mg Take 2 [facility] en 325 mg 6-15 06-16 tablets by ity of tablet 00:00: 04:59 mouth [place] 00 :00 every 6 Medical (six) Branch hours as needed for Pain (scale 1-3). acetaminoph 2020- No [id number] 650mg Take 2 [facility] en 325 mg 6-15 06-16 tablets by ity of tablet 00:00: 04:59 mouth [place] 00 :00 every 6 Medical (six) Branch hours as needed for Pain (scale 1-3). acetaminoph 2020- No [id number] 650mg Take 2 [facility] en 325 mg 6-15 06-16 tablets by ity of tablet 00:00: 04:59 mouth [place] 00 :00 every 6 Medical (six) Branch hours as needed for Pain (scale 1-3). acetaminoph 2020- No [id number] 650mg Take 2 [facility] en 325 mg 6-15 06-16 tablets by ity of tablet 00:00: 04:59 mouth [place] 00 :00 every 6 Medical (six) Branch hours as needed for Pain (scale 1-3). acetaminoph 2020- No [id number] 650mg Take 2 [facility] en 325 mg 6-15 06-16 tablets by ity of tablet 00:00: 04:59 mouth [place] 00 :00 every 6 Medical (six) Branch hours as needed for Pain (scale 1-3). acetaminoph 2020- No [id number] 650mg Take 2 [facility] en 325 mg 6-15 06-16 tablets by ity of tablet 00:00: 04:59 mouth [place] 00 :00 every 6 Medical (six) Branch hours as needed for Pain (scale 1-3). acetaminoph 2020- No [id number] 650mg Take 2 [facility] en 325 mg 6-15 06-16 tablets by ity of tablet 00:00: 04:59 mouth [place] 00 :00 every 6 Medical (six) Branch hours as needed for Pain (scale 1-3). acetaminoph 2020- No [id number] 650mg Take 2 [facility] en 325 mg 6-15 06-16 tablets by ity of tablet 00:00: 04:59 mouth [place] 00 :00 every 6 Medical (six) Branch hours as needed for Pain (scale 1-3). ibuprofen 2020- No [id number] 600mg Take 1 [facility] 600 mg 6-15 12-21 tablet by ity of tablet 00:00: 00:00 mouth [place] 00 :00 every 6 Medical (six) Branch hours as needed for Pain (scale 1-3) or Pain (scale 4-6). 2020- No [id number] 1{tbl} Take 1 [facility] vitamin 6-15 12-21 tablet by ity of w/FA tablet 00:00: 00:00 mouth [place] 00 :00 daily. [facility] 2020- No [id number] 1{tbl} Take 1 [facility] vitamin 6-15 12-21 tablet by [facility]y of w/FA tablet 00:00: 00:00 mouth [place] 00 :00 daily. Medical [facility] ibuprofen 2019- No [id number] 600mg Take 1 [facility] 600 mg 6-15 12-21 tablet by ity of tablet 00:00: 00:00 mouth [place] 00 :00 every 6 Medical (six) Branch hours as needed (Pain). Take with food or milk. rho(D) Yes 300ug 300 mcg, Univer s immune 6-14 Intramuscu ity of globulin 13:18: lar, ONCE, [place] (RHOGAM) 15 For 1 Medical syringe 300 dose, Branch mcg Conditiona l, Routine simethicone Yes 160mg 160 mg, Un radha (GAS RELIEF 6-14 Oral, ity of (SIMETHICON 13:18: PC+HSPRN, [place] E)) 11 Starting Medical chewable [place] [facility] tablet 160 01/21/20 at mg 0818, Until Discontinu ed, Routine, Gas human 2020-0 Yes .5mL 0.5 mL, [facility] papillomav 6-14 Intramuscu ity of vac,9-radames(P 13:18: lar, [place] F) 10 ONCE-PRIOR Medical (GARDASIL-9 TO [place] ) syringe DISCHARGE, 0.5 mL 1 dose, Starting 01/21/20 at 0818, Until Discontinu ed, Routine, Give vaccine prior to discharge ibuprofen 2020-0 Yes 600mg 600 mg, Univ ers (IBU) 6-14 Oral, ity of tablet 600 13:18: Q6HPRN, [place] mg 10 Starting Medical [facility] 01/21/20 at 0818, Until Discontinu ed, Routine, Pain (scale 4-6) acetaminoph 2020-0 Yes 650mg 650 mg, Un radha en 6-14 Oral, ity of (TYLENOL) 13:18: Q6HPRN, [place] tablet 650 10 Starting Medic al mg [facility] 01/21/20 at 0818, Until Discontinu ed, Routine, Pain (scale 1-3) diphenhydrA 2020-0 Yes 25mg 25 mg, Univ ers MINE 6-14 Oral, ity of (BENADRYL) 13:18: Q6HPRN, [place] tablet 25 10 Starting Medica l mg [facility] 01/21/20 at 0818, Until Discontinu ed, Routine, Sleep, Itching diphenhydrA 2020-0 Yes 25mg 25 mg, IV U nivers MINE-0.9 % 6-14 Piggyback, ity of sod.chlr 13:18: Administer [place] (BENADRYL) 10 over 30 Medica l 25 mg/50 mL Minutes, Bran ch piggyback Q6HPRN, 25 mg Starting 01/21/20 at 0818, Until Discontinu ed, Routine, Itching ondansetron 2020-0 Yes 4mg 4 mg, Slow Univers (ZOFRAN 6-14 IV Push, ity of (PF)) 13:18: Q8HPRN, [place] injection 4 10 Starting Medi heather mg [facility] 01/21/20 at 0818, Until Discontinu ed, Routine, Nausea and Vomiting (N/V) docusate 2020-0 Yes 240mg 240 mg, Unive rs calcium -14 Oral, ity of (SURFAK) 13:18: QDAILYPRN, [place] capsule 240 10 Starting Medi heather mg [facility] 01/21/20 at 0818, Until Discontinu ed, Routine, Constipati on magnesium 0 Yes 30mL 30 mL, Univer s hydroxide 01-20 Oral, ity of (MILK OF 13:18: QDAILYPRN, [place] as MAGNESIA) 10 Starting Medica l 400 mg/5 mL [facility] suspension 01/21/20 at 30 mL 0818, Until Discontinu ed, Routine, Constipati on benzocaine- 2019-0 Yes Topical, [facility] rad[facility] menthol 01-20 PRN, ity of (DERMOPLAST 13:18: Starting [place] ) 20-0.5 % 10 [place] [facility] topical 01/21/20 at Branch spray 0818, Until Discontinu ed, Routine, Perineum discomfort oxytocin 2020- No 40U 40 Units, Uni vers (PITOCIN) 01-20 IV ity of injection 09:18: 09:15 Piggyback, [place] 40 Units 00 :00 ONCE, 1 Medical dose, [facility] 01/21/20 at 0430, Routine acetaminoph 2020- No 650mg 650 mg, U nivers en 01-20 Oral, ity of (TYLENOL) 09:17: 13:18 Q6HPRN, [place] tablet 650 01 :15 Starting Medic al mg [facility] 01/21/20 at 0417, Until 01/21/20 at 0818, Routine, Pain (scale 1-3), Pain (scale 4-6) diphenhydrA 2020- No 50mg 50 mg, Uni vers MINE 01-20 Oral, ONCE ity of (BENADRYL) 05:39: 05:56 NOW, 1 [place] capsule 50 00 :00 dose, [facility] mg 01/21/20 at Branch 0045, Routine ondansetron 2020- No 4mg 4 mg, Slow [facility] (ZOFRAN 01-20 IV Push, ity of (PF)) 00:37: 00:53 ONCE, 1 [place] injection 4 00 :00 dose, Sat Med ical mg 01/20/20 at Branch 1945, Routine lactated 2020-0 2020- No 500mL at 999 Unive rs ringers IV 01-19 mL/hr, 500 it y of infusion 22:30: 21:31 mL, IV [place] 500 mL 00 :00 Infusion, Medical ONCE, 1 Branch dose, 01/20/20 at 1730, Routine sodium 2020-0 2020- No 30mL 30 mL, [facility] citrate-cit 01-19 Oral, ity of thanh acid 21:27: 21:43 PRE-PROCED [place] (BICITRA) 48 :00 URE ONCE, Medic al 500-334 1 dose, Branch mg/5 mL Starting solution 30 Sat mL 01/20/20 at 1627, Until 01/20/20 at 1643, Routine, Surgery/Pr ocedure butorphanol 2020-0 2020- No 1mg 1 mg, IV U nivers (STADOL) 01-19 Push, ity of injection 1 18:51: 19:19 ONCE, 1 [place] mg 00 :00 dose, Sat Medical 01/20/20 at Branch 1400, Routine LR 1000 mL 2020-0 2020- No 2mU/min at 6-120 [facility] + oxytocin 01-19 mL/hr, IV ity of 20 units IV 16:27: 13:18 Infusion, [place] Solution 40 :15 TITRATE, Medical Starting Branch 01/20/20 at 1127, Until 01/21/20 at 0818, RANDELL butorphanol 2020-0 2020- No 1mg 1 mg, IV U nivers (STADOL) 01-19 Push, ity of injection 1 14:13: 14:34 ONCE, 1 [place] mg 00 :00 dose, Sat Medical 01/20/20 at Branch 0915, Routine butorphanol 2020-0 2020- No 1mg 1 mg, IV U nivers (STADOL) 01-19 Push, ity of injection 1 10:00: 10:01 ONCE, 1 [place] mg 00 :00 dose, Sat Medical 01/20/20 at Branch 0500, Routine D5W-LR IV 2020-0 2020- No 1000mL at 125 Uni vers infusion 01-19-14 mL/hr, IV ity o f 1,000 mL 01:45: 13:18 Infusion, [place] 00 :15 CONTINUOUS Medical , Starting Branch 01/19/20 at 2045, Until 01/21/20 at 0818, Routine lactated 2020-0 2020- No 500mL at 999 Unive rs [place] IV 01-19 06-14 mL/hr, 500 it y of infusion 01:34: 13:18 mL, IV [place] 500 mL 48 :15 Infusion, Medical PRN - SEE Branch INSTRUCTIO NS, Starting Wed01/19/20 at 2033, Until 01/21/20 at 0818, Routine 2020-0 Yes Take by Unive rs vit/iron 5-08 mouth. ity of fum/folic 04:58: [place] [id number] Medical ( 1 Branch + 1 ORAL) 2020-0 Yes Take by Unive rs vit/iron 5-08 mouth. ity of fum/folic 04:58: [place] [id number] Medical ( 1 Branch + 1 ORAL) 2020-0 Yes Take by Unive rs vit/iron 5-08 mouth. ity of fum/folic 04:58: [place] [id number] Medical ( 1 Branch + 1 ORAL) 2020-0 Yes Take by Unive rs vit/iron 5-08 mouth. ity of fum/folic 04:58: [place] [id number] Medical ( 1 Branch + 1 ORAL) 2020-0 Yes Take by Unive rs vit/iron 5-08 mouth. ity of fum/folic 04:58: [place] [id number] Medical ( 1 Branch + 1 ORAL) 2020-0 Yes Take by Unive rs vit/iron 5-08 mouth. ity of fum/folic 04:58: [place] [id number] Medical ( 1 Branch + 1 ORAL) 2020-0 Yes Take by Unive rs vit/iron 5-08 mouth. ity of fum/folic 04:58: [place] [id number] Medical ( 1 Branch + 1 ORAL) 2020-0 Yes Take by Unive rs vit/iron 5-08 mouth. ity of fum/folic 04:58: [place] [id number] Medical ( 1 Branch + 1 ORAL) 2020-0 Yes Take by Unive rs vit/iron 5-08 mouth. ity of fum/folic 04:58: [place] [id number] Medical ( 1 Branch + 1 ORAL) ferrous 2020-0 Yes [id number] 325mg Take 1 Un rad[facility] sulfate 325 4-01 tablet by ity of mg (65 mg 00:00: mouth 2 [place] iron) 00 (two) Medical tablet times Branch daily. ascorbic 2020-0 Yes [id number] 500mg Take 1 U nivers acid, 4-01 tablet by it[place] of vitamin C, 00:00: mouth 3 [place] 500 mg 00 (three) Medical tablet times Branch daily. ferrous 2020-0 Yes [id number] 325mg Take 1 Un rad[facility] sulfate 325 4-01 tablet by ity of mg (65 mg 00:00: mouth 2 [place] iron) 00 (two) Medical tablet times Branch daily. ascorbic 2020-0 Yes [id number] 500mg Take 1 U nivers acid, 4-01 tablet by ity of vitamin C, 00:00: mouth 3 [place] 500 mg 00 (three) Medical tablet times Branch daily. ferrous 2020-0 Yes [id number] 325mg Take 1 Un rad[facility] sulfate 325 4-01 tablet by ity of mg (65 mg 00:00: mouth 2 [place] iron) 00 (two) Medical tablet times Branch daily. ascorbic 2020-0 Yes [id number] 500mg Take 1 U nivers acid, 4-01 tablet by ity of vitamin C, 00:00: mouth 3 [place] 500 mg 00 (three) Medical tablet times Branch daily. ferrous 2020-0 Yes [id number] 325mg Take 1 Un rad[facility] sulfate 325 4-01 tablet by ity of mg (65 mg 00:00: mouth 2 [place] iron) 00 (two) Medical tablet times Branch daily. ascorbic 2020-0 Yes [id number] 500mg Take 1 U nivers acid, 4-01 tablet by ity of vitamin C, 00:00: mouth 3 [place] 500 mg 00 (three) Medical tablet times Branch daily. ferrous 2020-0 Yes [id number] 325mg Take 1 Un rad[facility] sulfate 325 4-01 tablet by ity of mg (65 mg 00:00: mouth 2 [place] iron) 00 (two) Medical tablet times Branch daily. ascorbic 2020-0 Yes [id number] 500mg Take 1 U nivers acid, 4-01 tablet by ity of vitamin C, 00:00: mouth 3 [place] 500 mg 00 (three) Medical tablet times Branch daily. ferrous 2020-0 Yes [id number] 325mg Take 1 Un [facility] sulfate 325 4-01 tablet by ity of mg (65 mg 00:00: mouth 2 [place] iron) 00 (two) Medical tablet times Branch daily. ascorbic 2020-0 Yes [id number] 500mg Take 1 U nivers acid, 4-01 tablet by ity of vitamin C, 00:00: mouth 3 [place] 500 mg 00 (three) Medical tablet times Branch daily. ferrous 2020-0 Yes [id number] 325mg Take 1 Un rad[facility] sulfate 325 4-01 tablet by ity of mg (65 mg 00:00: mouth 2 [place] iron) 00 (two) Medical tablet times Branch daily. ascorbic 2020-0 Yes [id number] 500mg Take 1 U nivers acid, 4-01 tablet by ity of vitamin C, 00:00: mouth 3 [place] 500 mg 00 (three) Medical tablet times Branch daily. ferrous 2020-0 Yes [id number] 325mg Take 1 Un rad[facility] sulfate 325 4-01 tablet by ity of mg (65 mg 00:00: mouth 2 [place] iron) 00 (two) Medical tablet times Branch daily. ascorbic 2020-0 Yes [id number] 500mg Take 1 U nivers acid, 4-01 tablet by ity of vitamin C, 00:00: mouth 3 [place] 500 mg 00 (three) Medical tablet times Branch daily. ferrous 2020-0 Yes [id number] 325mg Take 1 Un rad[facility] sulfate 325 4-01 tablet by ity of mg (65 mg 00:00: mouth 2 [place] iron) 00 (two) Medical tablet times Branch daily. ascorbic 2020-0 Yes [id number] 500mg Take 1 U nivers acid, 4-01 tablet by ity of vitamin C, 00:00: mouth 3 [place] 500 mg 00 (three) Medical tablet times Branch daily. ferrous 2020-0 Yes [id number] 325mg Take 1 Un rad[facility] sulfate 325 4-01 tablet by ity of mg (65 mg 00:00: mouth 2 [place] iron) 00 (two) Medical tablet times Branch daily. ascorbic 2020-0 Yes [id number] 500mg Take 1 U nivers acid, 4-01 tablet by ity of vitamin C, 00:00: mouth 3 [place] 500 mg 00 (three) Medical tablet times Branch daily. ferrous 2020-0 Yes [id number] 325mg Take 1 Un rad[facility] sulfate 325 4-01 tablet by ity of mg (65 mg 00:00: mouth 2 [place] iron) 00 (two) Medical tablet times Branch daily. ascorbic 2020-0 Yes [id number] 500mg Take 1 U nivers acid, 4-01 tablet by ity of vitamin C, 00:00: mouth 3 [place] 500 mg 00 (three) Medical tablet times Branch daily. ferrous 2020-0 Yes [id number] 325mg Take 1 Un radha sulfate 325 4-01 tablet by ity of mg (65 mg 00:00: mouth 2 [place] iron) 00 (two) Medical tablet times Branch daily. ascorbic 2020-0 Yes [id number] 500mg Take 1 U nivers acid, 4-01 tablet by ity of vitamin C, 00:00: mouth 3 [place] 500 mg 00 (three) Medical tablet times Branch daily. ferrous 2020-0 Yes [id number] 325mg Take 1 Un radha sulfate 325 4-01 tablet by ity of mg (65 mg 00:00: mouth 2 [place] iron) 00 (two) Medical tablet times Branch daily. ascorbic 2020-0 Yes [id number] 500mg Take 1 U nivers acid, 4-01 tablet by ity of vitamin C, 00:00: mouth 3 [place] 500 mg 00 (three) Medical tablet times Branch daily. ferrous 2020-0 Yes [id number] 325mg Take 1 Un radha sulfate 325 4-01 tablet by ity of mg (65 mg 00:00: mouth 2 [place] iron) 00 (two) Medical tablet times Branch daily. ascorbic 2020-0 Yes [id number] 500mg Take 1 U nivers acid, 4-01 tablet by ity of vitamin C, 00:00: mouth 3 [place] 500 mg 00 (three) Medical tablet times Branch daily. ferrous 2020-0 Yes [id number] 325mg Take 1 Un radha sulfate 325 4-01 tablet by ity of mg (65 mg 00:00: mouth 2 [place] iron) 00 (two) Medical tablet times Branch daily. ascorbic 2020-0 Yes [id number] 500mg Take 1 U nivers acid, 4-01 tablet by ity of vitamin C, 00:00: mouth 3 [place] 500 mg 00 (three) Medical tablet times Branch daily. ferrous 2020-0 Yes [id number] 325mg Take 1 Un radha sulfate 325 4-01 tablet by ity of mg (65 mg 00:00: mouth 2 [place] iron) 00 (two) Medical tablet times Branch daily. ascorbic 2020-0 Yes [id number] 500mg Take 1 U nivers acid, 4-01 tablet by ity of vitamin C, 00:00: mouth 3 [place] 500 mg 00 (three) Medical tablet times Branch daily. ferrous 2020-0 Yes [id number] 325mg Take 1 Un radha sulfate 325 4-01 tablet by ity of mg (65 mg 00:00: mouth 2 [place] iron) 00 (two) Medical tablet times Branch daily. ascorbic 2020-0 Yes [id number] 500mg Take 1 U nivers acid, 4-01 tablet by ity of vitamin C, 00:00: mouth 3 [place] 500 mg 00 (three) Medical tablet times Branch daily. ferrous 2020-0 Yes [id number] 325mg Take 1 Un radha sulfate 325 4-01 tablet by ity of mg (65 mg 00:00: mouth 2 [place] iron) 00 (two) Medical tablet times Branch daily. ascorbic 2020-0 Yes [id number] 500mg Take 1 U nivers acid, 4-01 tablet by ity of vitamin C, 00:00: mouth 3 [place] 500 mg 00 (three) Medical tablet times Branch daily. ferrous 2020-0 Yes [id number] 325mg Take 1 Un radha sulfate 325 4-01 tablet by ity of mg (65 mg 00:00: mouth 2 [place] iron) 00 (two) Medical tablet times Branch daily. ascorbic 2020-0 Yes [id number] 500mg Take 1 U nivers acid, 4-01 tablet by ity of vitamin C, 00:00: mouth 3 [place] 500 mg 00 (three) Medical tablet times Branch daily. ferrous 2020-0 Yes [id number] 325mg Take 1 Un radha sulfate 325 4-01 tablet by ity of mg (65 mg 00:00: mouth 2 [place] iron) 00 (two) Medical tablet times Branch daily. ascorbic 2020-0 Yes [id number] 500mg Take 1 U nivers acid, 4-01 tablet by ity of vitamin C, 00:00: mouth 3 [place] 500 mg 00 (three) Medical tablet times Branch daily. ferrous 2020-0 Yes [id number] 325mg Take 1 Un radha sulfate 325 4-01 tablet by ity of mg (65 mg 00:00: mouth 2 [place] iron) 00 (two) Medical tablet times Branch daily. ascorbic 2020-0 Yes [id number] 500mg Take 1 U nivers acid, 4-01 tablet by ity of vitamin C, 00:00: mouth 3 [place] 500 mg 00 (three) Medical tablet times Branch daily. ferrous 2020-0 Yes [id number] 325mg Take 1 Un rad[facility] sulfate 325 4-01 tablet by ity of mg (65 mg 00:00: mouth 2 [place] iron) 00 (two) Medical tablet times Branch daily. ascorbic 2020-0 Yes [id number] 500mg Take 1 U nivers acid, 4-01 tablet by ity of vitamin C, 00:00: mouth 3 [place] 500 mg 00 (three) Medical tablet times Branch daily. ferrous 2020-0 Yes [id number] 325mg Take 1 Un radha sulfate 325 4-01 tablet by ity of mg (65 mg 00:00: mouth 2 [place] iron) 00 (two) Medical tablet times Branch daily. ascorbic 2020-0 Yes [id number] 500mg Take 1 U nivers acid, 4-01 tablet by ity of vitamin C, 00:00: mouth 3 [place] 500 mg 00 (three) Medical tablet times Branch daily. ferrous 2020-0 Yes [id number] 325mg Take 1 Un radha sulfate 325 4-01 tablet by ity of mg (65 mg 00:00: mouth 2 [place] iron) 00 (two) Medical tablet times Branch daily. ascorbic 2020-0 Yes [id number] 500mg Take 1 U nivers acid, 4-01 tablet by ity of vitamin C, 00:00: mouth 3 [place] 500 mg 00 (three) Medical tablet times Branch daily. ferrous 2020-0 Yes [id number] 325mg Take 1 Un radha sulfate 325 4-01 tablet by ity of mg (65 mg 00:00: mouth 2 [place] iron) 00 (two) Medical tablet times Branch daily. ascorbic 2020-0 Yes [id number] 500mg Take 1 U nivers acid, 4-01 tablet by ity of vitamin C, 00:00: mouth 3 [place] 500 mg 00 (three) Medical tablet times Branch daily. ferrous 2020-0 Yes [id number] 325mg Take 1 Un radha sulfate 325 4-01 tablet by ity of mg (65 mg 00:00: mouth 2 [place] iron) 00 (two) Medical tablet times Branch daily. ascorbic 2020-0 Yes [id number] 500mg Take 1 U nivers acid, 4-01 tablet by ity of vitamin C, 00:00: mouth 3 [place] 500 mg 00 (three) Medical tablet times Branch daily. ferrous 2020-0 Yes [id number] 325mg Take 1 Un radha sulfate 325 4-01 tablet by ity of mg (65 mg 00:00: mouth 2 [place] iron) 00 (two) Medical tablet times Branch daily. ascorbic 2020-0 Yes [id number] 500mg Take 1 U nivers acid, 4-01 tablet by ity of vitamin C, 00:00: mouth 3 [place] 500 mg 00 (three) Medical tablet times Branch daily. ferrous 2020-0 Yes [id number] 325mg Take 1 Un radha sulfate 325 4-01 tablet by ity of mg (65 mg 00:00: mouth 2 [place] iron) 00 (two) Medical tablet times Branch daily. ascorbic 2020-0 Yes [id number] 500mg Take 1 U nivers acid, 4-01 tablet by ity of vitamin C, 00:00: mouth 3 [place] 500 mg 00 (three) Medical tablet times Branch daily. ferrous 2020-0 Yes [id number] 325mg Take 1 Un radha sulfate 325 4-01 tablet by ity of mg (65 mg 00:00: mouth 2 [place] iron) 00 (two) Medical tablet times Branch daily. ascorbic 2020-0 Yes [id number] 500mg Take 1 U nivers acid, 4-01 tablet by ity of vitamin C, 00:00: mouth 3 [place] 500 mg 00 (three) Medical tablet times Branch daily. ferrous 2020-0 Yes [id number] 325mg Take 1 Un radha sulfate 325 4-01 tablet by ity of mg (65 mg 00:00: mouth 2 [place] iron) 00 (two) Medical tablet times Branch daily. ascorbic 2020-0 Yes [id number] 500mg Take 1 U nivers acid, 4-01 tablet by ity of vitamin C, 00:00: mouth 3 [place] 500 mg 00 (three) Medical tablet times Branch daily. ferrous 2020-0 Yes [id number] 325mg Take 1 Un radha sulfate 325 4-01 tablet by ity of mg (65 mg 00:00: mouth 2 [place] iron) 00 (two) Medical tablet times Branch daily. ascorbic 2020-0 Yes [id number] 500mg Take 1 U nivers acid, 4-01 tablet by ity of vitamin C, 00:00: mouth 3 [place] 500 mg 00 (three) Medical tablet times Branch daily. ferrous 2020-0 Yes [id number] 325mg Take 1 Un radha sulfate 325 4-01 tablet by ity of mg (65 mg 00:00: mouth 2 [place] iron) 00 (two) Medical tablet times Branch daily. ascorbic 2020-0 Yes [id number] 500mg Take 1 U nivers acid, 4-01 tablet by ity of vitamin C, 00:00: mouth 3 [place] 500 mg 00 (three) Medical tablet times Branch daily. ferrous 2020-0 Yes [id number] 325mg Take 1 Un radha sulfate 325 4-01 tablet by ity of mg (65 mg 00:00: mouth 2 [place] iron) 00 (two) Medical tablet times Branch daily. ascorbic 2020-0 Yes [id number] 500mg Take 1 U nivers acid, 4-01 tablet by ity of vitamin C, 00:00: mouth 3 [place] 500 mg 00 (three) Medical tablet times Branch daily. ferrous 2020-0 Yes [id number] 325mg Take 1 Un radha sulfate 325 4-01 tablet by ity of mg (65 mg 00:00: mouth 2 [place] iron) 00 (two) Medical tablet times Branch daily. ascorbic 2020-0 Yes [id number] 500mg Take 1 U nivers acid, 4-01 tablet by ity of vitamin C, 00:00: mouth 3 [place] 500 mg 00 (three) Medical tablet times Branch daily. ferrous 2020-0 Yes [id number] 325mg Take 1 Un radha sulfate 325 4-01 tablet by ity of mg (65 mg 00:00: mouth 2 [place] iron) 00 (two) Medical tablet times Branch daily. ascorbic 2020-0 Yes [id number] 500mg Take 1 U nivers acid, 4-01 tablet by ity of vitamin C, 00:00: mouth 3 [place] 500 mg 00 (three) Medical tablet times Branch daily. ferrous 2020-0 Yes [id number] 325mg Take 1 Un radha sulfate 325 4-01 tablet by ity of mg (65 mg 00:00: mouth 2 [place] iron) 00 (two) Medical tablet times Branch daily. ascorbic 2020-0 Yes [id number] 500mg Take 1 U nivers acid, 4-01 tablet by ity of vitamin C, 00:00: mouth 3 [place] 500 mg 00 (three) Medical tablet times Branch daily. ferrous 2020-0 Yes [id number] 325mg Take 1 Un radha sulfate 325 4-01 tablet by ity of mg (65 mg 00:00: mouth 2 [place] iron) 00 (two) Medical tablet times Branch daily. ascorbic 2020-0 Yes [id number] 500mg Take 1 U nivers acid, 4-01 tablet by ity of vitamin C, 00:00: mouth 3 [place] 500 mg 00 (three) Medical tablet times Branch daily. ferrous 2020-0 Yes [id number] 325mg Take 1 Un radha sulfate 325 4-01 tablet by ity of mg (65 mg 00:00: mouth 2 [place] iron) 00 (two) Medical tablet times Branch daily. ascorbic 2020-0 Yes [id number] 500mg Take 1 U nivers acid, 4-01 tablet by ity of vitamin C, 00:00: mouth 3 [place] 500 mg 00 (three) Medical tablet times Branch daily. ferrous 2020-0 Yes [id number] 325mg Take 1 Un radha sulfate 325 4-01 tablet by ity of mg (65 mg 00:00: mouth 2 [place] iron) 00 (two) Medical tablet times Branch daily. ascorbic 2020-0 Yes [id number] 500mg Take 1 U nivers acid, 4-01 tablet by ity of vitamin C, 00:00: mouth 3 [place] 500 mg 00 (three) Medical tablet times Branch daily. ferrous 2020-0 Yes [id number] 325mg Take 1 Un radha sulfate 325 4-01 tablet by ity of mg (65 mg 00:00: mouth 2 [place] iron) 00 (two) Medical tablet times Branch daily. ascorbic 2020-0 Yes [id number] 500mg Take 1 U nivers acid, 4-01 tablet by ity of vitamin C, 00:00: mouth 3 [place] 500 mg 00 (three) Medical tablet times Branch daily. ferrous 2020-0 Yes [id number] 325mg Take 1 Un radha sulfate 325 4-01 tablet by ity of mg (65 mg 00:00: mouth 2 [place] iron) 00 (two) Medical tablet times Branch daily. ascorbic 2020-0 Yes [id number] 500mg Take 1 U nivers acid, 4-01 tablet by ity of vitamin C, 00:00: mouth 3 [place] 500 mg 00 (three) Medical tablet times Branch daily. ferrous 2020-0 Yes [id number] 325mg Take 1 Un radha sulfate 325 4-01 tablet by ity of mg (65 mg 00:00: mouth 2 [place] iron) 00 (two) Medical tablet times Branch daily. ascorbic 2020-0 Yes [id number] 500mg Take 1 U nivers acid, 4-01 tablet by ity of vitamin C, 00:00: mouth 3 [place] 500 mg 00 (three) Medical tablet times Branch daily. ferrous 2020-0 Yes [id number] 325mg Take 1 Un radha sulfate 325 4-01 tablet by ity of mg (65 mg 00:00: mouth 2 [place] iron) 00 (two) Medical tablet times Branch daily. ascorbic 2020-0 Yes [id number] 500mg Take 1 U nivers acid, 4-01 tablet by ity of vitamin C, 00:00: mouth 3 [place] 500 mg 00 (three) Medical tablet times Branch daily. ferrous 2020-0 Yes [id number] 325mg Take 1 Un radha sulfate 325 4-01 tablet by ity of mg (65 mg 00:00: mouth 2 [place] iron) 00 (two) Medical tablet times Branch daily. ascorbic 2020-0 Yes [id number] 500mg Take 1 U nivers acid, 4-01 tablet by ity of vitamin C, 00:00: mouth 3 [place] 500 mg 00 (three) Medical tablet times Branch daily. ferrous 2020-0 Yes [id number] 325mg Take 1 Un radha sulfate 325 4-01 tablet by ity of mg (65 mg 00:00: mouth 2 [place] iron) 00 (two) Medical tablet times Branch daily. ascorbic 2020-0 Yes [id number] 500mg Take 1 U nivers acid, 4-01 tablet by ity of vitamin C, 00:00: mouth 3 [place] 500 mg 00 (three) Medical tablet times Branch daily. ferrous 2020-0 Yes [id number] 325mg Take 1 Un rad[facility] sulfate 325 4-01 tablet by ity of mg (65 mg 00:00: mouth 2 [place] iron) 00 (two) Medical tablet times Branch daily. ascorbic 2020-0 Yes [id number] 500mg Take 1 U nivers acid, 4-01 tablet by ity of vitamin C, 00:00: mouth 3 [place] 500 mg 00 (three) Medical tablet times Branch daily. ferrous 2020-0 Yes [id number] 325mg Take 1 Un rad[facility] sulfate 325 4-01 tablet by ity of mg (65 mg 00:00: mouth 2 [place] iron) 00 (two) Medical tablet times Branch daily. ascorbic 2020-0 Yes [id number] 500mg Take 1 U nivers acid, 4-01 tablet by ity of vitamin C, 00:00: mouth 3 [place] 500 mg 00 (three) Medical tablet times Branch daily. ferrous 2020-0 Yes [id number] 325mg Take 1 Un rad[facility] sulfate 325 4-01 tablet by ity of mg (65 mg 00:00: mouth 2 [place] iron) 00 (two) Medical tablet times Branch daily. ascorbic 2020-0 Yes [id number] 500mg Take 1 U nivers acid, 4-01 tablet by ity of vitamin C, 00:00: mouth 3 [place] 500 mg 00 (three) Medical tablet times Branch daily. ferrous 2020-0 Yes [id number] 325mg Take 1 Un radha sulfate 325 4-01 tablet by ity of mg (65 mg 00:00: mouth 2 [place] iron) 00 (two) Medical tablet times Branch daily. ascorbic 2020-0 Yes [id number] 500mg Take 1 U nivers acid, 4-01 tablet by ity of vitamin C, 00:00: mouth 3 [place] 500 mg 00 (three) Medical tablet times Branch daily. ferrous 2020-0 Yes [id number] 325mg Take 1 Un rad[facility] sulfate 325 4-01 tablet by ity of mg (65 mg 00:00: mouth 2 [place] iron) 00 (two) Medical tablet times Branch daily. ascorbic 2020-0 Yes [id number] 500mg Take 1 U nivers acid, 4-01 tablet by ity of vitamin C, 00:00: mouth 3 [place] 500 mg 00 (three) Medical tablet times Branch daily. ferrous 2020-0 Yes [id number] 325mg Take 1 Un radha sulfate 325 4-01 tablet by ity of mg (65 mg 00:00: mouth 2 [place] iron) 00 (two) Medical tablet times Branch daily. ascorbic 2020-0 Yes [id number] 500mg Take 1 U nivers acid, 4-01 tablet by ity of vitamin C, 00:00: mouth 3 [place] 500 mg 00 (three) Medical tablet times Branch daily. ferrous 2020-0 Yes [id number] 325mg Take 1 Un radha sulfate 325 4-01 tablet by ity of mg (65 mg 00:00: mouth 2 [place] iron) 00 (two) Medical tablet times Branch daily. ascorbic 2020-0 Yes [id number] 500mg Take 1 U nivers acid, 4-01 tablet by ity of vitamin C, 00:00: mouth 3 [place] 500 mg 00 (three) Medical tablet times Branch daily. ferrous 2020-0 Yes [id number] 325mg Take 1 Un radha sulfate 325 4-01 tablet by ity of mg (65 mg 00:00: mouth 2 [place] iron) 00 (two) Medical tablet times Branch daily. ascorbic 2020-0 Yes [id number] 500mg Take 1 U nivers acid, 4-01 tablet by ity of vitamin C, 00:00: mouth 3 [place] 500 mg 00 (three) Medical tablet times Branch daily. ferrous 2020-0 Yes [id number] 325mg Take 1 Un radha sulfate 325 4-01 tablet by ity of mg (65 mg 00:00: mouth 2 [place] iron) 00 (two) Medical tablet times Branch daily. ascorbic 2020-0 Yes [id number] 500mg Take 1 U nivers acid, 4-01 tablet by ity of vitamin C, 00:00: mouth 3 [place] 500 mg 00 (three) Medical tablet times Branch daily. ferrous 2020-0 Yes [id number] 325mg Take 1 Un radha sulfate 325 4-01 tablet by ity of mg (65 mg 00:00: mouth 2 [place] iron) 00 (two) Medical tablet times Branch daily. ascorbic 2020-0 Yes [id number] 500mg Take 1 U nivers acid, 4-01 tablet by ity of vitamin C, 00:00: mouth 3 [place] 500 mg 00 (three) Medical tablet times Branch daily. ferrous 2020-0 Yes [id number] 325mg Take 1 Un radha sulfate 325 4-01 tablet by ity of mg (65 mg 00:00: mouth 2 [place] iron) 00 (two) Medical tablet times Branch daily. ascorbic 2020-0 Yes [id number] 500mg Take 1 U nivers acid, 4-01 tablet by ity of vitamin C, 00:00: mouth 3 [place] 500 mg 00 (three) Medical tablet times Branch daily. ferrous 2020-0 Yes [id number] 325mg Take 1 Un radha sulfate 325 4-01 tablet by ity of mg (65 mg 00:00: mouth 2 [place] iron) 00 (two) Medical tablet times Branch daily. ascorbic 2020-0 Yes [id number] 500mg Take 1 U nivers acid, 4-01 tablet by ity of vitamin C, 00:00: mouth 3 [place] 500 mg 00 (three) Medical tablet times Branch daily. ferrous 2020-0 Yes [id number] 325mg Take 1 Un radha sulfate 325 4-01 tablet by ity of mg (65 mg 00:00: mouth 2 [place] iron) 00 (two) Medical tablet times Branch daily. ascorbic 2020-0 Yes [id number] 500mg Take 1 U nivers acid, 4-01 tablet by ity of vitamin C, 00:00: mouth 3 [place] 500 mg 00 (three) Medical tablet times Branch daily. ferrous 2020-0 Yes [id number] 325mg Take 1 Un radha sulfate 325 4-01 tablet by ity of mg (65 mg 00:00: mouth 2 [place] iron) 00 (two) Medical tablet times Branch daily. ascorbic 2020-0 Yes [id number] 500mg Take 1 U nivers acid, 4-01 tablet by ity of vitamin C, 00:00: mouth 3 [place] 500 mg 00 (three) Medical tablet times Branch daily. ferrous 2020-0 Yes [id number] 325mg Take 1 Un radha sulfate 325 4-01 tablet by ity of mg (65 mg 00:00: mouth 2 [place] iron) 00 (two) Medical tablet times Branch daily. ascorbic 2020-0 Yes [id number] 500mg Take 1 U nivers acid, 4-01 tablet by ity of vitamin C, 00:00: mouth 3 [place] 500 mg 00 (three) Medical tablet times Branch daily. ferrous 2020-0 Yes [id number] 325mg Take 1 Un radha sulfate 325 4-01 tablet by ity of mg (65 mg 00:00: mouth 2 [place] iron) 00 (two) Medical tablet times Branch daily. ascorbic 2020-0 Yes [id number] 500mg Take 1 U nivers acid, 4-01 tablet by [facility] vitamin C, 00:00: mouth [place] mg 00 (three) Medical tablet times Branch daily. ferrous 2020-0 Yes [id number] 325mg Take 1 Un radha sulfate 325 4-01 tablet by ity of mg (65 mg 00:00: mouth 2 [place] iron) 00 (two) Medical tablet times Branch daily. ascorbic 2020-0 Yes [id number] 500mg Take 1 [facility] nivers acid, 4-01 tablet by [facility] vitamin C, 00:00: mouth 3 [place] mg 00 (three) Medical tablet times Branch daily. ferrous 2020-0 Yes [id number] 325mg Take 1 Un radha sulfate 325 4-01 tablet by ity of mg (65 mg 00:00: mouth 2 [place] iron) 00 (two) Medical tablet times Branch daily. ascorbic 2020-0 Yes [id number] 500mg Take 1 [facility] nivers acid, 4-01 tablet by [facility] of vitamin C, 00:00: mouth 3 [place] mg 00 (three) Medical tablet times Branch daily. ferrous 2020-0 Yes [id number] 325mg Take 1 Un radha sulfate 325 4-01 tablet by ity of mg (65 mg 00:00: mouth 2 [place] iron) 00 (two) Medical tablet times Branch daily. ascorbic 2020-0 Yes [id number] 500mg Take 1 [facility] nivers acid, 4-01 tablet by [facility] vitamin C, 00:00: mouth 3 [place] mg 00 (three) Medical tablet times Branch daily. ferrous 2020-0 Yes [id number] 325mg Take 1 Un radha sulfate 325 4-01 tablet by ity of mg (65 mg 00:00: mouth 2 [place] iron) 00 (two) Medical tablet times Branch daily. ascorbic 2020-0 Yes [id number] 500mg Take 1 [facility] nivers acid, 4-01 tablet by [facility] of vitamin C, 00:00: mouth 3 [place] 500 mg 00 (three) Medical tablet times Branch daily. ferrous 2020-0 Yes [id number] 325mg Take 1 Un radha sulfate 325 4-01 tablet by ity of mg (65 mg 00:00: mouth 2 [place] iron) 00 (two) Medical tablet times Branch daily. ascorbic 2020-0 Yes [id number] 500mg Take 1 [facility] nivers acid, 4-01 tablet by [facility] of vitamin C, 00:00: mouth 3 [place] 500 mg 00 (three) Medical tablet times Branch daily. ferrous 2020-0 Yes [id number] 325mg Take 1 Un radha sulfate 325 4-01 tablet by ity of mg (65 mg 00:00: mouth 2 [place] iron) 00 (two) Medical tablet times Branch daily. ascorbic 2020-0 Yes [id number] 500mg Take 1 [facility] nivers acid, 4-01 tablet by [facility] of vitamin C, 00:00: mouth 3 [place] 500 mg 00 (three) Medical tablet times Branch daily. ferrous 2020-0 Yes [id number] 325mg Take 1 Un radha sulfate 325 4-01 tablet by ity of mg (65 mg 00:00: mouth 2 [place] iron) 00 (two) Medical tablet times Branch daily. ascorbic 2020-0 Yes [id number] 500mg Take 1 [facility] nivers acid, 4-01 tablet by [facility] of vitamin C, 00:00: mouth 3 [place] 500 mg 00 (three) Medical tablet times Branch daily. ferrous 2020-0 Yes [id number] 325mg Take 1 Un radha sulfate 325 4-01 tablet by ity of mg (65 mg 00:00: mouth 2 [place] iron) 00 (two) Medical tablet times Branch daily. ascorbic 2020-0 Yes [id number] 500mg Take 1 [facility] nivers acid, 4-01 tablet by [facility] of vitamin C, 00:00: mouth 3 [place] 500 mg 00 (three) Medical tablet times Branch daily. ferrous 2020-0 Yes [id number] 325mg Take 1 Un radha sulfate 325 4-01 tablet by ity of mg (65 mg 00:00: mouth 2 [place] iron) 00 (two) Medical tablet times Branch daily. ascorbic 2020-0 Yes [id number] 500mg Take 1 [facility] nivers acid, 4-01 tablet by [facility] of vitamin C, 00:00: mouth 3 [place] 500 mg 00 (three) Medical tablet times Branch daily. ferrous 2020-0 Yes [id number] 325mg Take 1 Un radha sulfate 325 4-01 tablet by ity of mg (65 mg 00:00: mouth 2 [place] iron) 00 (two) Medical tablet times Branch daily. ascorbic 2020-0 Yes [id number] 500mg Take 1 [facility] nivers acid, 4-01 tablet by [facility] of vitamin C, 00:00: mouth 3 [place] 500 mg 00 (three) Medical tablet times Branch daily. ferrous 2020-0 Yes [id number] 325mg Take 1 Un radha sulfate 325 4-01 tablet by ity of mg (65 mg 00:00: mouth 2 [place] iron) 00 (two) Medical tablet times Branch daily. ascorbic 2020-0 Yes [id number] 500mg Take 1 [facility] nivers acid, 4-01 tablet by [facility] of vitamin C, 00:00: mouth 3 [place] 500 mg 00 (three) Medical tablet times Branch daily. ferrous 2020-0 Yes [id number] 325mg Take 1 Un radha sulfate 325 4-01 tablet by ity of mg (65 mg 00:00: mouth 2 [place] iron) 00 (two) Medical tablet times Branch daily. ascorbic 2020-0 Yes [id number] 500mg Take 1 [facility] nivers acid, 4-01 tablet by [facility] of vitamin C, 00:00: mouth 3 [place] 500 mg 00 (three) Medical tablet times Branch daily. ferrous 2020-0 Yes [id number] 325mg Take 1 Un radha sulfate 325 4-01 tablet by ity of mg (65 mg 00:00: mouth 2 [place] iron) 00 (two) Medical tablet times Branch daily. ascorbic 2020-0 Yes [id number] 500mg Take 1 [facility] nivers acid, 4-01 tablet by [facility] of vitamin C, 00:00: mouth 3 [place] 500 mg 00 (three) Medical tablet times Branch daily. ferrous 2020-0 Yes [id number] 325mg Take 1 Un radha sulfate 325 4-01 tablet by ity of mg (65 mg 00:00: mouth 2 [place] iron) 00 (two) Medical tablet times Branch daily. ascorbic 2020-0 Yes [id number] 500mg Take 1 [facility] nivers acid, 4-01 tablet by [facility] of vitamin C, 00:00: mouth 3 [place] 500 mg 00 (three) Medical tablet times Branch daily. ferrous 2020-0 Yes [id number] 325mg Take 1 Un radha sulfate 325 4-01 tablet by ity of mg (65 mg 00:00: mouth 2 [place] iron) 00 (two) Medical tablet times Branch daily. ascorbic 2020-0 Yes [id number] 500mg Take 1 [facility] nivers acid, 4-01 tablet by [facility] of vitamin C, 00:00: mouth 3 [place] 500 mg 00 (three) Medical tablet times Branch daily. ferrous 2020-0 Yes [id number] 325mg Take 1 Un radha sulfate 325 4-01 tablet by ity of mg (65 mg 00:00: mouth 2 [place] iron) 00 (two) Medical tablet times Branch daily. ascorbic 2020-0 Yes [id number] 500mg Take 1 [facility] nivers acid, 4-01 tablet by [facility] of vitamin C, 00:00: mouth 3 [place] 500 mg 00 (three) Medical tablet times Branch daily. ferrous 2020-0 Yes [id number] 325mg Take 1 Un radha sulfate 325 4-01 tablet by ity of mg (65 mg 00:00: mouth 2 [place] iron) 00 (two) Medical tablet times Branch daily. ascorbic 2020-0 Yes [id number] 500mg Take 1 [facility] nivers acid, 4-01 tablet by [facility] of vitamin C, 00:00: mouth 3 [place] 500 mg 00 (three) Medical tablet times Branch daily. ferrous 2020-0 Yes [id number] 325mg Take 1 Un radha sulfate 325 4-01 tablet by ity of mg (65 mg 00:00: mouth 2 [place] iron) 00 (two) Medical tablet times Branch daily. ascorbic 2020-0 Yes [id number] 500mg Take 1 [facility] nivers acid, 4-01 tablet by [facility] of vitamin C, 00:00: mouth 3 [place] 500 mg 00 (three) Medical tablet times Branch daily. ferrous 2020-0 Yes [id number] 325mg Take 1 Un radha sulfate 325 4-01 tablet by ity of mg (65 mg 00:00: mouth 2 [place] iron) 00 (two) Medical tablet times Branch daily. ascorbic 2020-0 Yes [id number] 500mg Take 1 [facility] nivers acid, 4-01 tablet by [facility] of vitamin C, 00:00: mouth 3 [place] 500 mg 00 (three) Medical tablet times Branch daily. ferrous 2020-0 Yes [id number] 325mg Take 1 Un radha sulfate 325 4-01 tablet by ity of mg (65 mg 00:00: mouth 2 [place] iron) 00 (two) Medical tablet times Branch daily. ascorbic 2020-0 Yes [id number] 500mg Take 1 [facility] nivers acid, 4-01 tablet by [facility] of vitamin C, 00:00: mouth 3 [place] 500 mg 00 (three) Medical tablet times Branch daily. ferrous 2020-0 Yes [id number] 325mg Take 1 Un radha sulfate 325 4-01 tablet by ity of mg (65 mg 00:00: mouth 2 [place] iron) 00 (two) Medical tablet times Branch daily. ascorbic 2020-0 Yes [id number] 500mg Take 1 [facility] nivers acid, 4-01 tablet by [facility] of vitamin C, 00:00: mouth 3 [place] 500 mg 00 (three) Medical tablet times Branch daily. ferrous 2020-0 Yes [id number] 325mg Take 1 Un radha sulfate 325 4-01 tablet by ity of mg (65 mg 00:00: mouth 2 [place] iron) 00 (two) Medical tablet times Branch daily. ascorbic 2020-0 Yes [id number] 500mg Take 1 [facility] nivers acid, 4-01 tablet by [facility] of vitamin C, 00:00: mouth 3 [place] 500 mg 00 (three) Medical tablet times Branch daily. ferrous 2020-0 Yes [id number] 325mg Take 1 Un radha sulfate 325 4-01 tablet by ity of mg (65 mg 00:00: mouth 2 [place] iron) 00 (two) Medical tablet times Branch daily. ascorbic 2020-0 Yes [id number] 500mg Take 1 U nivers acid, 4-01 tablet by [facility] of vitamin C, 00:00: mouth 3 [place] 500 mg 00 (three) Medical tablet times Branch daily. ferrous 2020-0 Yes [id number] 325mg Take 1 Un radha sulfate 325 4-01 tablet by ity of mg (65 mg 00:00: mouth 2 [place] iron) 00 (two) Medical tablet times Branch daily. ascorbic 2020-0 Yes [id number] 500mg Take 1 U nivers acid, 4-01 tablet by [facility] of vitamin C, 00:00: mouth 3 [place] 500 mg 00 (three) Medical tablet times Branch daily. ferrous 2020-0 Yes [id number] 325mg Take 1 Un radha sulfate 325 4-01 tablet by ity of mg (65 mg 00:00: mouth 2 [place] iron) 00 (two) Medical tablet times Branch daily. ascorbic 2020-0 Yes [id number] 500mg Take 1 U nivers acid, 4-01 tablet by [facility] of vitamin C, 00:00: mouth 3 [place] 500 mg 00 (three) Medical tablet times Branch daily. ferrous 2020-0 Yes [id number] 325mg Take 1 Un radha sulfate 325 4-01 tablet by ity of mg (65 mg 00:00: mouth 2 [place] iron) 00 (two) Medical tablet times Branch daily. ascorbic 2020-0 Yes [id number] 500mg Take 1 U nivers acid, 4-01 tablet by [facility] of vitamin C, 00:00: mouth 3 [place] 500 mg 00 (three) Medical tablet times Branch daily. ferrous 2020-0 Yes [id number] 325mg Take 1 Un radha sulfate 325 4-01 tablet by ity of mg (65 mg 00:00: mouth 2 [place] iron) 00 (two) Medical tablet times Branch daily. ascorbic 2020-0 Yes [id number] 500mg Take 1 U nivers acid, 4-01 tablet by [facility] of vitamin C, 00:00: mouth 3 [place] 500 mg 00 (three) Medical tablet times Branch daily. ferrous 2020-0 Yes [id number] 325mg Take 1 Un radha sulfate 325 4-01 tablet by ity of mg (65 mg 00:00: mouth 2 [place] iron) 00 (two) Medical tablet times Branch daily. ascorbic 2020-0 Yes [id number] 500mg Take 1 U nivers acid, 4-01 tablet by [facility] of vitamin C, 00:00: mouth 3 [place] 500 mg 00 (three) Medical tablet times Branch daily. 2020-0 Yes Take by [facility] vit/iron 3-11 mouth. ity of fum/folic 23:47: [address] ( 1 Branch + 1 ORAL) 2020-0 Yes Take by [facility] rs vit/iron 3-11 mouth. ity of fum/folic 23:47: [address] ( 1 Branch + 1 ORAL) 2020-0 Yes Take by [facility] rs vit/iron 3-11 mouth. ity of fum/folic 23:47: [address] ( 1 Branch + 1 ORAL) 2020-0 Yes Take by [facility] rs vit/iron 3-11 mouth. ity of fum/folic 23:47: [address] ( 1 Branch + 1 ORAL) 2020-0 Yes Take by [facility] vit/iron 3-11 mouth. ity of fum/folic 23:47: [address] ( 1 Branch + 1 ORAL) 2020-0 Yes Take by [facility] vit/iron 3-11 mouth. ity of fum/folic 23:47: [address] ( 1 Branch + 1 ORAL) 2020-0 Yes Take by [facility] vit/iron 3-11 mouth. ity of fum/folic 23:47: [address] ( 1 Branch + 1 ORAL) 2020-0 Yes Take by [facility] vit/iron 3-11 mouth. ity of fum/folic 23:47: [address] ( 1 Branch + 1 ORAL) 2020-0 Yes Take by [facility] vit/iron 3-11 mouth. ity of fum/folic 23:47: [address] ( 1 Branch + 1 ORAL) 2020-0 Yes Take by [facility] vit/iron 3-11 mouth. ity of fum/folic 23:47: [place] [address] Medical ( 1 Branch + 1 ORAL) 2020-0 Yes Take by [facility] rs vit/iron 3-11 mouth. ity of fum/folic 23:47: [place] [address] Medical ( 1 Branch + 1 ORAL) 2020-0 Yes Take by [facility] rs vit/iron 3-11 mouth. ity of fum/folic 23:47: [place] [address] Medical ( 1 Branch + 1 ORAL) 2020-0 Yes Take by [facility] rs vit/iron 3-11 mouth. ity of fum/folic 23:47: [place] [address] Medical ( 1 Branch + 1 ORAL) 2020-0 Yes Take by [facility] rs vit/iron 3-11 mouth. ity of fum/folic 23:47: [address] ( 1 Branch + 1 ORAL) 2020-0 Yes Take by [facility] rs vit/iron 3-11 mouth. ity of fum/folic 23:47: [address] ( 1 Branch + 1 ORAL) 2020-0 Yes Take by [facility] rs vit/iron 3-11 mouth. ity of fum/folic 23:47: [address] ( 1 Branch + 1 ORAL) lactated 2020-0 Yes 1000mL at 125 Unive rs ringers IV 3-11 mL/hr, [facility] infusion 22:00: 1,000 [place], [place] 1,000 mL 00 IV Medical Infusion, Branch CONTINUOUS , Starting Wed10/18/19 at 1700, Until Discontinu ed, Routine lactated 2020-0 Yes 1000mL at 999 Unive rs ringers IV 3-11 mL/hr, [facility] infusion 22:00: 1,000 mL, [place] 1,000 mL 00 IV Medical Infusion, Branch CONTINUOUS , Starting Wed10/18/19 at 1700, Until Discontinu ed, Routine proMETHazin 2020-0 Yes 12.5mg 12.5 mg, [facility] e 3-11 Intramuscu ity of (PHENERGAN) 20:58: lar, [place] injection 19 Q4HPRN, Medical 12.5 mg Starting Branch Wed10/18/19 at 1558, Until Discontinu ed, Routine, Nausea and Vomiting (N/V) 2020-0 Yes Take by [facility] rs vit/iron 2-01 mouth. ity of fum/folic 16:29: [place] [facility] 10 Medical ( 1 Branch + 1 ORAL) 2020-0 Yes Take by [facility] rs vit/iron 2-01 mouth. ity of fum/folic 16:29: [facility] 10 Medical ( 1 Branch + 1 ORAL) 2020-0 Yes Take by Unive rs vit/iron 2-01 mouth. ity of fum/folic 16:29: [facility] 10 Medical ( 1 Branch + 1 ORAL) 2020-0 Yes Take by Unive rs vit/iron 2-01 mouth. ity of fum/folic 16:29: [facility] 10 Medical ( 1 Branch + 1 ORAL) 2020-0 Yes Take by Unive rs vit/iron 2-01 mouth. ity of fum/folic 16:29: [facility] 10 Medical ( 1 Branch + 1 ORAL) 2020-0 Yes Take by Unive rs vit/iron 2-01 mouth. ity of fum/folic 16:29: [facility] 10 Medical ( 1 Branch + 1 ORAL) 2019- Yes Take by Unive rs vit/iron 2-01 mouth. ity of fum/folic 10:55: [facility] 19 Medical ( 1 Branch + 1 ORAL) proMETHazin 2018-08 Yes [id number] 25mg Take 1 [facility] e 25 mg 1-04 tablet by ity of tablet 00:00: mouth [place] 00 every 6 Medical (six) Branch hours as needed for Nausea and Vomiting (N/V). proMETHazin 2018-08 Yes [id number] 25mg Take 1 [facility] e 25 mg 1-04 tablet by ity of tablet 00:00: mouth [place] 00 every 6 Medical (six) Branch hours as needed for Nausea and Vomiting (N/V). proMETHazin 2018-08 Yes [id number] 25mg Take 1 [facility] e 25 mg 1-04 tablet by ity of tablet 00:00: mouth [place] 00 every 6 Medical (six) Branch hours as needed for Nausea and Vomiting (N/V). proMETHazin 2018-08 Yes [id number] 25mg Take 1 [facility] e 25 mg 1-04 tablet by ity of tablet 00:00: mouth [place] 00 every 6 Medical (six) Branch hours as needed for Nausea and Vomiting (N/V). proMETHazin 2018-08 Yes [id number] 25mg Take 1 [facility] e 25 mg 1-04 tablet by ity of tablet 00:00: mouth [place] 00 every 6 Medical (six) Branch hours as needed for Nausea and Vomiting (N/V). proMETHazin 2018-08 Yes [id number] 25mg Take 1 [facility] e 25 mg 1-04 tablet by ity of tablet 00:00: mouth [place] 00 every 6 Medical (six) Branch hours as needed for Nausea and Vomiting (N/V). proMETHazin 2018-08 Yes [id number] 25mg Take 1 [facility] e 25 mg 1-04 tablet by ity of tablet 00:00: mouth [place] 00 every 6 Medical (six) Branch hours as needed for Nausea and Vomiting (N/V). proMETHazin 2018-08 Yes [id number] 25mg Take 1 [facility] e 25 mg 1-04 tablet by ity of tablet 00:00: mouth [place] 00 every 6 Medical (six) Branch hours as needed for Nausea and Vomiting (N/V). proMETHazin 2018-08 Yes [id number] 25mg Take 1 [facility] e 25 mg 1-04 tablet by ity of tablet 00:00: mouth [place] 00 every 6 Medical (six) Branch hours as needed for Nausea and Vomiting (N/V). proMETHazin 2018-08 Yes [id number] 25mg Take 1 [facility] e 25 mg 1-04 tablet by ity of tablet 00:00: mouth [place] 00 every 6 Medical (six) Branch hours as needed for Nausea and Vomiting (N/V). proMETHazin 2018-08 Yes [id number] 25mg Take 1 [facility] e 25 mg 1-04 tablet by ity of tablet 00:00: mouth [place] 00 every 6 Medical (six) Branch hours as needed for Nausea and Vomiting (N/V). proMETHazin 2018-08 Yes [id number] 25mg Take 1 [facility] e 25 mg 1-04 tablet by ity of tablet 00:00: mouth [place] 00 every 6 Medical (six) Branch hours as needed for Nausea and Vomiting (N/V). proMETHazin 2018-08 Yes [id number] 25mg Take 1 [facility] e 25 mg 1-04 tablet by ity of tablet 00:00: mouth [place] 00 every 6 Medical (six) Branch hours as needed for Nausea and Vomiting (N/V). proMETHazin 2018-08 Yes [id number] 25mg Take 1 [facility] e 25 mg 1-04 tablet by ity of tablet 00:00: mouth [place] 00 every 6 Medical (six) Branch hours as needed for Nausea and Vomiting (N/V). proMETHazin 2018-08 Yes [id number] 25mg Take 1 [facility] e 25 mg 1-04 tablet by ity of tablet 00:00: mouth [place] 00 every 6 Medical (six) Branch hours as needed for Nausea and Vomiting (N/V). proMETHazin 2018-08 Yes [id number] 25mg Take 1 [facility] e 25 mg 1-04 tablet by ity of tablet 00:00: mouth [place] 00 every 6 Medical (six) Branch hours as needed for Nausea and Vomiting (N/V). proMETHazin 2018-08 Yes [id number] 25mg Take 1 [facility] e 25 mg 1-04 tablet by ity of tablet 00:00: mouth [place] 00 every 6 Medical (six) Branch hours as needed for Nausea and Vomiting (N/V). proMETHazin 2018-08 Yes [id number] 25mg Take 1 [facility] e 25 mg 1-04 tablet by ity of tablet 00:00: mouth [place] 00 every 6 Medical (six) Branch hours as needed for Nausea and Vomiting (N/V). proMETHazin 2018-08 Yes [id number] 25mg Take 1 [facility] e 25 mg 1-04 tablet by ity of tablet 00:00: mouth [place] 00 every 6 Medical (six) Branch hours as needed for Nausea and Vomiting (N/V). proMETHazin 2018-08 Yes [id number] 25mg Take 1 [facility] e 25 mg 1-04 tablet by ity of tablet 00:00: mouth [place] 00 every 6 Medical (six) Branch hours as needed for Nausea and Vomiting (N/V). proMETHazin 2018-08 Yes [id number] 25mg Take 1 [facility] e 25 mg 1-04 tablet by ity of tablet 00:00: mouth [place] 00 every 6 Medical (six) Branch hours as needed for Nausea and Vomiting (N/V). proMETHazin 2018-08 Yes [id number] 25mg Take 1 [facility] e 25 mg 1-04 tablet by ity of tablet 00:00: mouth [place] 00 every 6 Medical (six) Branch hours as needed for Nausea and Vomiting (N/V). proMETHazin 2018-08 Yes [id number] 25mg Take 1 [facility] e 25 mg 1-04 tablet by ity of tablet 00:00: mouth [place] 00 every 6 Medical (six) Branch hours as needed for Nausea and Vomiting (N/V). proMETHazin 2018-08 Yes [id number] 25mg Take 1 [facility] e 25 mg 1-04 tablet by ity of tablet 00:00: mouth [place] 00 every 6 Medical (six) Branch hours as needed for Nausea and Vomiting (N/V). proMETHazin 2018-08 Yes [id number] 25mg Take 1 [facility] e 25 mg 1-04 tablet by ity of tablet 00:00: mouth [place] 00 every 6 Medical (six) Branch hours as needed for Nausea and Vomiting (N/V). proMETHazin 2018-08 Yes [id number] 25mg Take 1 [facility] e 25 mg 1-04 tablet by ity of tablet 00:00: mouth [place] 00 every 6 Medical (six) Branch hours as needed for Nausea and Vomiting (N/V). proMETHazin 2018-08 Yes [id number] 25mg Take 1 [facility] e 25 mg 1-04 tablet by ity of tablet 00:00: mouth [place] 00 every 6 Medical (six) Branch hours as needed for Nausea and Vomiting (N/V). proMETHazin 2018-08 Yes [id number] 25mg Take 1 [facility] e 25 mg 1-04 tablet by ity of tablet 00:00: mouth [place] 00 every 6 Medical (six) Branch hours as needed for Nausea and Vomiting (N/V). proMETHazin 2018-08 Yes [id number] 25mg Take 1 [facility] e 25 mg 1-04 tablet by ity of tablet 00:00: mouth [place] 00 every 6 Medical (six) Branch hours as needed for Nausea and Vomiting (N/V). proMETHazin 2018-08 Yes [id number] 25mg Take 1 [facility] e 25 mg 1-04 tablet by ity of tablet 00:00: mouth [place] 00 every 6 Medical (six) Branch hours as needed for Nausea and Vomiting (N/V). proMETHazin 2018-08 Yes [id number] 25mg Take 1 [facility] e 25 mg 1-04 tablet by ity of tablet 00:00: mouth [place] 00 every 6 Medical (six) Branch hours as needed for Nausea and Vomiting (N/V). proMETHazin 2018-08 Yes [id number] 25mg Take 1 [facility] e 25 mg 1-04 tablet by ity of tablet 00:00: mouth [place] 00 every 6 Medical (six) Branch hours as needed for Nausea and Vomiting (N/V). proMETHazin 2018-08 2020- No [id number] 25mg Take 1 [facility] e 25 mg 1-04 06-15 tablet by ity of tablet 00:00: 00:00 mouth [place] 00 :00 every 6 Medical (six) Branch hours as needed for Nausea and Vomiting (N/V). 2018-08 Yes [id number] 1{tbl} Take 1 U nivers multivitami 0-28 tablet by ity of n ( 00:00: mouth [place] VITAMIN) 00 daily. Medical tablet Branch 2018-08 Yes [id number] 1{tbl} Take 1 [facility] nivers multivitami 0-28 tablet by ity of n ( 00:00: mouth [place] VITAMIN) 00 daily. Medical tablet Branch 2018-08 Yes [id number] 1{tbl} Take 1 [facility] nivers multivitami 0-28 tablet by ity of n ( 00:00: mouth [place] VITAMIN) 00 daily. Medical tablet Branch 2018-08 Yes [id number] 1{tbl} Take 1 U nivers multivitami 0-28 tablet by ity of n ( 00:00: mouth [place] VITAMIN) 00 daily. Medical tablet Branch 2018-08 Yes [id number] 1{tbl} Take 1 [facility] nivers multivitami 0-28 tablet by ity of n ( 00:00: mouth [place] VITAMIN) 00 daily. Medical tablet Branch 2018-08 Yes [id number] 1{tbl} Take 1 U nivers multivitami 0-28 tablet by ity of n ( 00:00: mouth [place] VITAMIN) 00 daily. Medical tablet Branch 2018-08 Yes [id number] 1{tbl} Take 1 U nivers multivitami 0-28 tablet by ity of n ( 00:00: mouth [place] VITAMIN) 00 daily. Medical tablet Branch 2018-08 Yes [id number] 1{tbl} Take 1 U nivers multivitami 0-28 tablet by ity of n ( 00:00: mouth [place] VITAMIN) 00 daily. Medical tablet Branch 2018-08 Yes [id number] 1{tbl} Take 1 U nivers multivitami 0-28 tablet by ity of n ( 00:00: mouth [place] VITAMIN) 00 daily. Medical tablet Branch 2018-08 Yes [id number] 1{tbl} Take 1 [facility] nivers multivitami 0-28 tablet by ity of n ( 00:00: mouth [place] VITAMIN) 00 daily. Medical tablet Branch 2018-08 Yes [id number] 1{tbl} Take 1 [facility] nivers multivitami 0-28 tablet by ity of n ( 00:00: mouth [place] VITAMIN) 00 daily. Medical tablet Branch 2018-08 Yes [id number] 1{tbl} Take 1 U nivers multivitami 0-28 tablet by ity of n ( 00:00: mouth [place] VITAMIN) 00 daily. Medical tablet Branch 2018-08 Yes [id number] 1{tbl} Take 1 [facility] nivers multivitami 0-28 tablet by ity of n ( 00:00: mouth [place] VITAMIN) 00 daily. Medical tablet Branch 2018-08 Yes [id number] 1{tbl} Take 1 [facility] nivers multivitami 0-28 tablet by ity of n ( 00:00: mouth [place] VITAMIN) 00 daily. Medical tablet Branch 2018-08 Yes [id number] 1{tbl} Take 1 [facility] nivers multivitami 0-28 tablet by ity of n ( 00:00: mouth [place] VITAMIN) 00 daily. Medical tablet Branch 2018-08 Yes [id number] 1{tbl} Take 1 [facility] nivers multivitami 0-28 tablet by ity of n ( 00:00: mouth [place] VITAMIN) 00 daily. Medical tablet Branch 2018-08 Yes [id number] 1{tbl} Take 1 [facility] nivers multivitami 0-28 tablet by ity of n ( 00:00: mouth [place] VITAMIN) 00 daily. Medical tablet Branch 2018-08 Yes [id number] 1{tbl} Take 1 [facility] nivers multivitami 0-28 tablet by ity of n ( 00:00: mouth [place] VITAMIN) 00 daily. Medical tablet Branch 2018-08 Yes [id number] 1{tbl} Take 1 [facility] nivers multivitami 0-28 tablet by ity of n ( 00:00: mouth [place] VITAMIN) 00 daily. Medical tablet Branch 2018-08 Yes [id number] 1{tbl} Take 1 U nivers multivitami 0-28 tablet by ity of n ( 00:00: mouth [place] VITAMIN) 00 daily. Medical tablet Branch 2018-08 Yes [id number] 1{tbl} Take 1 [facility] nivers multivitami 0-28 tablet by ity of n ( 00:00: mouth [place] VITAMIN) 00 daily. Medical tablet Branch 2018-08 Yes [id number] 1{tbl} Take 1 [facility] nivers multivitami 0-28 tablet by ity of n ( 00:00: mouth [place] VITAMIN) 00 daily. Medical tablet Branch 2018-08 Yes [id number] 1{tbl} Take 1 U nivers multivitami 0-28 tablet by ity of n ( 00:00: mouth [place] VITAMIN) 00 daily. Medical tablet Branch 2018-08 Yes [id number] 1{tbl} Take 1 [facility] nivers multivitami 0-28 tablet by ity of n ( 00:00: mouth [place] VITAMIN) 00 daily. Medical tablet Branch 2018-08 Yes [id number] 1{tbl} Take 1 U nivers multivitami 0-28 tablet by ity of n ( 00:00: mouth [place] VITAMIN) 00 daily. Medical tablet Branch 2018-08 Yes [id number] 1{tbl} Take 1 U nivers multivitami 0-28 tablet by ity of n ( 00:00: mouth [place] VITAMIN) 00 daily. Medical tablet Branch 2018-08 Yes [id number] 1{tbl} Take 1 U nivers multivitami 0-28 tablet by ity of n ( 00:00: mouth [place] VITAMIN) 00 daily. Medical tablet Branch 2018-08 Yes [id number] 1{tbl} Take 1 U nivers multivitami 0-28 tablet by ity of n ( 00:00: mouth [place] VITAMIN) 00 daily. Medical tablet Branch 2018-08 Yes [id number] 1{tbl} Take 1 U nivers multivitami 0-28 tablet by ity of n ( 00:00: mouth [place] VITAMIN) 00 daily. Medical tablet Branch 2018-08 Yes [id number] 1{tbl} Take 1 U nivers multivitami 0-28 tablet by ity of n ( 00:00: mouth [place] VITAMIN) 00 daily. Medical tablet Branch 2018-08 Yes [id number] 1{tbl} Take 1 U nivers multivitami 0-28 tablet by ity of n ( 00:00: mouth [place] VITAMIN) 00 daily. Medical tablet Branch 2018-08 Yes [id number] 1{tbl} Take 1 U nivers multivitami 0-28 tablet by ity of n ( 00:00: mouth [place] VITAMIN) 00 daily. Medical tablet Branch 2018-08 Yes [id number] 1{tbl} Take 1 U nivers multivitami 0-28 tablet by ity of n ( 00:00: mouth [place] VITAMIN) 00 daily. Medical tablet Branch 2018-08 Yes [id number] 1{tbl} Take 1 U nivers multivitami 0-28 tablet by ity of n ( 00:00: mouth [place] VITAMIN) 00 daily. Medical tablet Branch 2018-08 Yes [id number] 1{tbl} Take 1 U nivers multivitami 0-28 tablet by [facility]y of n ( 00:00: mouth [place] [facility]) 00 daily. [facility] tablet [facility] 2018-08 Yes [id number] 1{tbl} Take 1 U nivers multivitami 0-28 tablet by [facility] n ( 00:00: mouth [place] [facility]) 00 daily. [facility] tablet [facility] 2018-08 Yes [id number] 1{tbl} Take 1 U nivers multivitami 0-28 tablet by [facility] n ( 00:00: mouth [place] [facility]) 00 daily. [facility] tablet [facility] 2018-08 Yes [id number] 1{tbl} Take 1 U nivers multivitami 0-28 tablet by [facility] n ( 00:00: mouth [place] [facility]) 00 daily. [facility] tablet [facility] 2018-08 Yes [id number] 1{tbl} Take 1 [facility] nivers multivitami 0-28 tablet by [facility] n ( 00:00: mouth [place] [facility]) 00 daily. [facility] tablet [facility] 2018-08 Yes [id number] 1{tbl} Take 1 U nivers multivitami 0-28 tablet by [facility] n ( 00:00: mouth [place] [facility]) 00 daily. [facility] tablet [facility] 2018-08 Yes [id number] 1{tbl} Take 1 [facility] nivers multivitami 0-28 tablet by [facility] n ( 00:00: mouth [place] [facility]) 00 daily. [facility] tablet [facility] 2018-08 Yes [id number] 1{tbl} Take 1 U nivers multivitami 0-28 tablet by [facility] n ( 00:00: mouth [place] [facility]) 00 daily. [facility] tablet [facility] 2018-08 Yes [id number] 1{tbl} Take 1 [facility] nivers multivitami 0-28 tablet by [facility] n ( 00:00: mouth [place] [facility]) 00 daily. [facility] tablet [facility] 2018-08 Yes [id number] 1{tbl} Take 1 [facility] nivers multivitami 0-28 tablet by [facility] n ( 00:00: mouth [place] [facility]) 00 daily. [facility] tablet [facility] 2018-08 Yes [id number] 1{tbl} Take 1 [facility] nivers multivitami 0-28 tablet by [facility] n ( 00:00: mouth [place] [facility]) 00 daily. [facility] tablet [facility] 2018-08 Yes [id number] 1{tbl} Take 1 [facility] nivers multivitami 0-28 tablet by [facility] n ( 00:00: mouth [place] [facility]) 00 daily. [facility] tablet [facility] 2018-08 Yes [id number] 1{tbl} Take 1 [facility] nivers multivitami 0-28 tablet by [facility] n ( 00:00: mouth [place] [facility]) 00 daily. [facility] tablet [facility] 2018-08 Yes [id number] 1{tbl} Take 1 [facility] nivers multivitami 0-28 tablet by [facility] n ( 00:00: mouth [place] [facility]) 00 daily. [facility] tablet [facility] 2018-08 Yes [id number] 1{tbl} Take 1 [facility] nivers multivitami 0-28 tablet by [facility] n ( 00:00: mouth [place] [facility]) 00 daily. [facility] tablet [facility] 2018-08 Yes [id number] 1{tbl} Take 1 [facility] nivers multivitami 0-28 tablet by [facility] n ( 00:00: mouth [place] [facility]) 00 daily. [facility] tablet [facility] 2018-08 Yes [id number] 1{tbl} Take 1 [facility] nivers multivitami 0-28 tablet by [facility] n ( 00:00: mouth [place] [facility]) 00 daily. [facility] tablet [facility] 2018-08 Yes [id number] 1{tbl} Take 1 [facility] nivers multivitami 0-28 tablet by [facility] n ( 00:00: mouth [place] [facility]) 00 daily. [facility] tablet [facility] 2018-08 Yes [id number] 1{tbl} Take 1 [facility] nivers multivitami 0-28 tablet by [facility] n ( 00:00: mouth [place] [facility]) 00 daily. [facility] tablet [facility] 2018-08 Yes [id number] 1{tbl} Take 1 U nivers multivitami 0-28 tablet by marc ( 00:00: mouth [place] [facility]IT[facility]) 00 daily. Medical tablet [facility] 2018-08 2020- No [id number] 1{tbl} Take 1 [facility] multivitami 0-28 12-21 tablet [place] [facility] [place] daily. [facility] tablet [facility] Immunizations Ordered Filled Immunization Date Status Comments [facility] e Immunization Name Name [facility] 2020-11-08 Completed [facility] 00:00:00 [facility] TDAP 2020-11-08 Completed [facility] 00:00:00 [facility] TDAP 2020-11-08 Completed [facility] of 00:00:00 [facility] TDAP 2020-11-08 Completed [facility] of 00:00:00 [facility] TDAP 2020-11-08 Completed [facility] of 00:00:00 [facility] TDAP 2020-11-08 Completed [facility] of 00:00:00 [facility] TDAP 2020-11-08 Completed [facility] of 00:00:00 [facility] TDAP 2020-11-08 Completed [facility] of 00:00:00 [facility] TDAP 2020-11-08 Completed [facility] of 00:00:00 [facility] TDAP 2020-11-08 Completed [facility] of 00:00:00 [facility] TDAP 2020-11-08 Completed [facility] of 00:00:00 [facility] TDAP 2020-11-08 Completed [facility] of 00:00:00 [facility] TDAP 2020-11-08 Completed [facility] of 00:00:00 [facility] TDAP 2020-11-08 Completed [facility] of 00:00:00 [facility] TDAP 2020-11-08 Completed [facility] of 00:00:00 [facility] TDAP 2020-11-08 Completed [facility] 00:00:00 [facility] TDAP 2020-11-08 Completed [facility] of 00:00:00 [facility] TDAP 2020-11-08 Completed [facility] of 00:00:00 [facility] TDAP 2020-11-08 Completed [facility] of 00:00:00 [facility] TDAP 2020-11-08 Completed [facility] of 00:00:00 [facility] TDAP 2020-11-08 Completed [facility] of 00:00:00 [facility] TDAP 2020-11-08 Completed [facility] 00:00:00 [facility] TDAP 2020-11-08 Completed [facility] 00:00:00 [facility] TDAP 2020-11-08 Completed [facility] 00:00:00 [facility] TDAP 2020-11-08 Completed [facility] 00:00:00 [facility] TDAP 2020-11-08 Completed [facility] 00:00:00 [facility] TDAP 2020-11-08 Completed [facility] 00:00:00 [facility] TDAP 2020-11-08 Completed [facility] 00:00:00 [facility] TDAP 2020-11-08 Completed [facility] 00:00:00 [facility] TDAP 2020-11-08 Completed [facility] of 00:00:00 [facility] TDAP 2019-11-21 Completed [facility] of 00:00:00 [facility] TDAP 2019-11-21 Completed [facility] of 00:00:00 [facility] TDAP 2019-11-21 Completed [facility] 00:00:00 [facility] TDAP 2019-11-21 Completed [facility] 00:00:00 [facility] TDAP 2019-11-21 Completed [facility] 00:00:00 [facility] TDAP 2019-11-21 Completed [facility] 00:00:00 [facility] TDAP 2019-11-21 Completed [facility] 00:00:00 [facility] TDAP 2019-11-21 Completed [facility] 00:00:00 [facility] TDAP 2019-11-21 Completed [facility] 00:00:00 [facility] TDAP 2019-11-21 Completed [facility] 00:00:00 [facility] TDAP 2019-11-21 Completed [facility] 00:00:00 [facility] TDAP 2019-11-21 Completed [facility] 00:00:00 [facility] TDAP 2019-11-21 Completed [facility] 00:00:00 [facility] TDAP 2019-11-21 Completed [facility] 00:00:00 [facility] TDAP 2019-11-21 Completed [facility] 00:00:00 [facility] TDAP 2019-11-21 Completed [facility] 00:00:00 [facility] TDAP 2019-11-21 Completed [facility] 00:00:00 [facility] TDAP 2019-11-21 Completed [facility] 00:00:00 [facility] TDAP 2019-11-21 Completed [facility] 00:00:00 [facility] TDAP 2019-11-21 Completed [facility] 00:00:00 [facility] TDAP 2019-11-21 Completed [facility] 00:00:00 [place] [facility] TDAP 2019-11-21 Completed [facility] 00:00:00 [place] [facility] TDAP 2019-11-21 Completed [facility] of 00:00:00 [facility] TDAP 2019-11-21 Completed [facility] 00:00:00 [facility] TDAP 2019-11-21 Completed [facility] of 00:00:00 [facility] TDAP 2019-11-21 Completed [facility] 00:00:00 [facility] TDAP 2019-11-21 Completed [facility] of 00:00:00 [facility] TDAP 2019-11-21 Completed [facility] of 00:00:00 [facility] TDAP 2019-11-21 Completed [facility] of 00:00:00 [facility] TDAP 2019-11-21 Completed [facility] of 00:00:00 [facility] TDAP 2019-11-21 Completed [facility] 00:00:00 [facility] TDAP 2019-11-21 Completed [facility] 00:00:00 [facility] TDAP 2019-11-21 Completed [facility] 00:00:00 [facility] TDAP 2019-11-21 Completed [facility] 00:00:00 [facility] TDAP 2019-11-21 Completed [facility] 00:00:00 [facility] TDAP 2019-11-21 Completed [facility] 00:00:00 [facility] TDAP 2019-11-21 Completed [facility] 00:00:00 [facility] TDAP 2019-11-21 Completed [facility] of 00:00:00 [facility] TDAP 2019-11-21 Completed [facility] of 00:00:00 [facility] TDAP 2019-11-21 Completed [facility] of 00:00:00 [facility] TDAP 2019-11-21 Completed [facility] of 00:00:00 [facility] TDAP 2019-11-21 Completed [facility] 00:00:00 [facility] TDAP 2019-11-21 Completed [facility] 00:00:00 [facility] TDAP 2019-11-21 Completed [facility] 00:00:00 [facility] TDAP 2019-11-21 Completed [facility] 00:00:00 [facility] TDAP 2019-11-21 Completed [facility] 00:00:00 [facility] TDAP 2019-11-21 Completed [facility] 00:00:00 [facility] TDAP 2019-11-21 Completed [facility] 00:00:00 [place] [facility] TDAP 2019-11-21 Completed [facility] 00:00:00 [place] [facility] TDAP 2019-11-21 Completed [facility] 00:00:00 [place] [facility] TDAP 2019-11-21 Completed [facility] of 00:00:00 [facility] TDAP 2019-11-21 Completed [facility] 00:00:00 [place] [facility] TDAP 2019-11-21 Completed [facility] of 00:00:00 [facility] TDAP 2019-11-21 Completed [facility] 00:00:00 [facility] TDAP 2019-11-21 Completed [facility] 00:00:00 [facility] TDAP 2019-11-21 Completed [facility] 00:00:00 [facility] TDAP 2019-11-21 Completed [facility] 00:00:00 [facility] TDAP 2019-11-21 Completed [facility] 00:00:00 [facility] TDAP 2019-11-21 Completed [facility] 00:00:00 [facility] TDAP 2019-11-21 Completed [facility] of 00:00:00 [facility] TDAP 2019-11-21 Completed [facility] of 00:00:00 [facility] Tdap 2019-11-21 Completed [facility] 00:00:00 [place] [facility] Tdap 2019-11-21 Completed [facility] 00:00:00 [facility] Tdap 2019-11-21 Completed [facility] 00:00:00 [facility] Tdap 2019-11-21 Completed [facility] 00:00:00 [facility] Tdap 2019-11-21 Completed [facility] 00:00:00 [facility] Tdap 2019-11-21 Completed [facility] 00:00:00 [place] [facility] Tdap 2019-11-21 Completed [facility] 00:00:00 [facility] Tdap 2019-11-21 Completed [facility] 00:00:00 [place] [facility] Tdap 2019-11-21 Completed [facility] 00:00:00 [place] [facility] Tdap 2019-11-21 Completed [facility] 00:00:00 [place] [facility] Tdap 2019-11-21 Completed [facility] 00:00:00 [facility] Tdap 2019-11-21 Completed [facility] 00:00:00 [place] [facility] Tdap 2019-11-21 Completed [facility] 00:00:00 [facility] Tdap 2019-11-21 Completed [facility] 00:00:00 [facility] TDAP 2019-11-21 Completed [facility] 00:00:00 [facility] TDAP 2019-11-21 Completed [facility] 00:00:00 [place] [facility] TDAP 2019-11-21 Completed [facility] 00:00:00 [facility] TDAP 2019-11-21 Completed [facility] 00:00:00 [facility] TDAP 2019-11-21 Completed [facility] 00:00:00 [place] [facility] TDAP 2019-11-21 Completed [facility] 00:00:00 [place] [facility] TDAP 2019-11-21 Completed [facility] 00:00:00 [facility] TDAP 2019-11-21 Completed [facility] 00:00:00 [facility] TDAP 2019-11-21 Completed [facility] 00:00:00 [facility] TDAP 2019-11-21 Completed [facility] 00:00:00 [facility] TDAP 2019-11-21 Completed [facility] 00:00:00 [facility] TDAP 2019-11-21 Completed [facility] 00:00:00 [facility] TDAP 2019-11-21 Completed [facility] 00:00:00 [facility] TDAP 2019-11-21 Completed [facility] 00:00:00 [facility] TDAP 2013-03-13 Completed [facility] 00:00:00 [facility] TDAP 2013-03-13 Completed [facility] 00:00:00 [facility] TDAP 2013-03-13 Completed [facility] 00:00:00 [facility] TDAP 2013-03-13 Completed [facility] 00:00:00 [facility] TDAP 2013-03-13 Completed [facility] 00:00:00 [facility] TDAP 2013-03-13 Completed [facility] 00:00:00 [facility] TDAP 2013-03-13 Completed [facility] of 00:00:00 [facility] TDAP 2013-03-13 Completed [facility] 00:00:00 [facility] TDAP 2013-03-13 Completed [facility] of 00:00:00 [facility] TDAP 2013-03-13 Completed [facility] 00:00:00 [facility] TDAP 2013-03-13 Completed [facility] 00:00:00 [facility] TDAP 2013-03-13 Completed [facility] 00:00:00 [facility] TDAP 2013-03-13 Completed [facility] 00:00:00 [facility] TDAP 2013-03-13 Completed [facility] 00[facility]00:00 [place] [facility] TDAP 2013-03-13 Completed [facility] 00:00:00 [place] [facility] TDAP 2013-03-13 Completed [facility] 00:00:00 [place] [facility] TDAP 2013-03-13 Completed [facility] 00:00:00 [facility] TDAP 2013-03-13 Completed [facility] 00:00:00 [facility] TDAP 2013-03-13 Completed [facility] 00:00:00 [facility] TDAP 2013-03-13 Completed [facility] 00:00:00 [facility] TDAP 2013-03-13 Completed [facility] 00:00:00 [place] [facility] TDAP 2013-03-13 Completed [facility] 00:00:00 [facility] TDAP 2013-03-13 Completed [facility] 00:00:00 [facility] TDAP 2013-03-13 Completed [facility] 00:00:00 [facility] TDAP 2013-03-13 Completed [facility] 00:00:00 [facility] TDAP 2013-03-13 Completed [facility] 00:00:00 [facility] TDAP 2013-03-13 Completed [facility] 00:00:00 [facility] TDAP 2013-03-13 Completed [facility] 00:00:00 [facility] TDAP 2013-03-13 Completed [facility] 00:00:00 [facility] TDAP 2013-03-13 Completed [facility] 00:00:00 [facility] TDAP 2013-03-13 Completed [facility] 00:00:00 [facility] TDAP 2013-03-13 Completed [facility] 00:00:00 [facility] TDAP 2013-03-13 Completed [facility] 00:00:00 [place] [facility] TDAP 2013-03-13 Completed [facility] 00:00:00 [facility] TDAP 2013-03-13 Completed [facility] 00:00:00 [place] [facility] TDAP 2013-03-13 Completed [facility] 00:00:00 [place] [facility] TDAP 2013-03-13 Completed [facility] 00:00:00 [place] [facility] TDAP 2013-03-13 Completed [facility] 00:00:00 [facility] TDAP 2013-03-13 Completed [facility] 00:00:00 [facility] TDAP 2013-03-13 Completed [facility] 00:00:00 [facility] TDAP 2013-03-13 Completed [facility] 00:00:00 [facility] TDAP 2013-03-13 Completed [facility] 00:00:00 [place] [facility] TDAP 2013-03-13 Completed [facility] 00:00:00 [place] [facility] TDAP 2013-03-13 Completed [facility] 00:00:00 [place] [facility] TDAP 2013-03-13 Completed [facility] of 00:00:00 [facility] TDAP 2013-03-13 Completed [facility] of 00:00:00 [facility] Tdap 2013-03-13 Completed [facility] of 00:00:00 [facility] TDAP 2013-03-13 Completed [facility] 00:00:00 [facility] TDAP 2013-03-13 Completed [facility] 00:00:00 [facility] TDAP 2013-03-13 Completed [facility] 00:00:00 [facility] TDAP 2013-03-13 Completed [facility] 00:00:00 [facility] Tdap 2013-03-13 Completed [facility] 00:00:00 [facility] TDAP 2013-03-13 Completed [facility] of 00:00:00 [facility] TDAP 2013-03-13 Completed [facility] of 00:00:00 [facility] TDAP 2013-03-13 Completed [facility] of 00:00:00 [facility] TDAP 2013-03-13 Completed [facility] of 00:00:00 [place] [facility] TDAP 2013-03-13 Completed [facility] of 00:00:00 [facility] TDAP 2013-03-13 Completed [facility] of 00:00:00 [facility] TDAP 2013-03-13 Completed [facility] 00:00:00 [facility] Tdap 2013-03-13 Completed [facility] 00:00:00 [facility] TDAP 2013-03-13 Completed [facility] 00:00:00 [facility] TDAP 2013-03-13 Completed [facility] 00:00:00 [facility] TDAP 2013-03-13 Completed [facility] 00:00:00 [facility] TDAP 2013-03-13 Completed [facility] 00:00:00 [place] [facility] Tdap 2013-03-13 Completed [facility] 00:00:00 [place] [facility] Tdap 2013-03-13 Completed [facility] of 00:00:00 [facility] Tdap 2013-03-13 Completed [facility] of 00:00:00 [facility] Tdap 2013-03-13 Completed [facility] 00:00:00 [place] [facility] Tdap 2013-03-13 Completed [facility] 00:00:00 [place] [facility] Tdap 2013-03-13 Completed [facility] 00:00:00 [place] [facility] Tdap 2013-03-13 Completed [facility] 00:00:00 [place] [facility] Tdap 2013-03-13 Completed [facility] 00:00:00 [place] [facility] Tdap 2013-03-13 Completed [facility] of 00:00:00 [facility] Tdap 2013-03-13 Completed [facility] of 00:00:00 [place] [facility] Tdap 2013-03-13 Completed [facility] of 00:00:00 [place] [facility] Tdap 2013-03-13 Completed [facility] 00:00:00 [place] [facility] Tdap 2013-03-13 Completed [facility] 00:00:00 [place] [facility] Tdap 2013-03-13 Completed [facility] 00:00:00 [place] [facility] Tdap 2013-03-13 Completed [facility] of 00:00:00 [facility] Tdap 2013-03-13 Completed [facility] of 00:00:00 [facility] Tdap 2013-03-13 Completed [facility] of 00:00:00 [facility] Tdap 2013-03-13 Completed [facility] of 00:00:00 [facility] Tdap 2013-03-13 Completed [facility] of 00:00:00 [facility] Tdap 2013-03-13 Completed [facility] 00:00:00 [facility] Tdap 2013-03-13 Completed [facility] of 00:00:00 [facility] Tdap 2013-03-13 Completed [facility] of 00:00:00 [facility] Tdap 2013-03-13 Completed [facility] of 00:00:00 [facility] Tdap 2013-03-13 Completed [facility] 00:00:00 [facility] Tdap 2013-03-13 Completed [facility] 00:00:00 [facility] Tdap 2013-03-13 Completed [facility] 00:00:00 [facility] Tdap 2013-03-13 Completed [facility] 00:00:00 [place] [facility] Tdap 2013-03-13 Completed [facility] of 00:00:00 [place] [facility] Tdap 2013-03-13 Completed [facility] 00:00:00 [facility] Tdap 2013-03-13 Completed [facility] 00:00:00 [facility] TDAP 2013-03-13 Completed [facility] 00:00:00 [facility] TDAP 2013-03-13 Completed [facility] 00:00:00 [facility] TDAP 2013-03-13 Completed [facility] 00:00:00 [facility] TDAP 2013-03-13 Completed [facility] 00:00:00 [facility] TDAP 2013-03-13 Completed [facility] 00:00:00 [facility] TDAP 2013-03-13 Completed [facility] 00:00:00 [facility] TDAP 2013-03-13 Completed [facility] of 00:00:00 [facility] TDAP 2013-03-13 Completed [facility] of 00:00:00 [facility] TDAP 2013-03-13 Completed [facility] of 00:00:00 [facility] TDAP 2013-03-13 Completed [facility] of 00:00:00 [facility] TDAP 2013-03-13 Completed [facility] 00:00:00 [facility] TDAP 2013-03-13 Completed [facility] 00:00:00 [facility] TDAP 2013-03-13 Completed [facility] 00:00:00 [facility] TDAP 2013-03-13 Completed [facility] of 00:00:00 [facility] Vital Signs Vital Name Observation Time Observation Value Comments Source Systolic blood 2021-02-19 22:05:00 110 mm[Hg] Univer sity of pressure [facility] Diastolic blood 2021-02-19 22:05:00 72 mm[Hg] Unive rsity of [facility] Heart rate 2021-02-19 22:05:00 89 /min [facility] Body temperature 2021-02-19 22:05:00 36.94 Maria Dolores [facility] Respiratory rate 2021-02-19 22:05:00 16 /min [facility] Body height 2021-02-19 22:05:00 170.2 cm [facility] Body weight 2021-02-19 22:05:00 94.847 kg [facility] BMI 2021-02-19 22:05:00 32.75 kg/m2 [facility] Systolic blood 2021-02-06 16:11:00 115 mm[Hg] Univer sity of pressure [facility] Diastolic blood 2021-02-06 16:11:00 80 mm[Hg] Unive rsity of pressure [facility] Heart rate 2021-02-06 16:11:00 68 /min [facility] Respiratory rate 2021-02-06 16:11:00 16 /min [facility] ers[facility] Oxygen saturation in 2021-02-06 16:11:00 98 /min [facility] of Arterial blood by [facility] Pulse oximetry Branch Body temperature 2021-02-06 15:17:00 37.17 Maria Dolores [facility] Body height 2021-02-06 15:17:00 162.6 cm [facility] Body weight 2021-02-06 15:17:00 93.895 kg [facility] BMI 2021-02-06 15:17:00 35.53 kg/m2 [facility] Systolic blood 2021-01-08 02:00:00 124 mm[Hg] Univer sity of pressure [facility] Diastolic blood 2021-01-08 02:00:00 67 mm[Hg] Unive rsity of pressure [facility] Heart rate 2021-01-08 02:00:00 104 /min [facility] Oxygen saturation in 2021-01-08 00:00:00 100 /min [facility] of Arterial blood by [facility] Pulse oximetry Branch Body temperature 2021-01-07 20:18:00 36.94 Maria Dolores [facility] Body height 2021-01-07 20:10:00 170.2 cm [facility] Body weight 2021-01-07 20:10:00 105.597 kg [facility] BMI 2021-01-07 20:10:00 36.46 kg/m2 [facility] Systolic blood 2021-01-03 16:32:00 120 mm[Hg] Univer sity of pressure [facility] Diastolic blood 2021-01-03 16:32:00 67 mm[Hg] Unive rsity of pressure [facility] Heart rate 2021-01-03 16:32:00 100 /min [facility] Body temperature 2021-01-03 16:32:00 36.78 Maria Dolores [facility] Respiratory rate 2021-01-03 16:32:00 24 /min [facility] Body height 2021-01-03 16:32:00 170.2 cm [facility] Body weight 2021-01-03 16:32:00 104.599 kg [facility] BMI 2021-01-03 16:32:00 36.12 kg/m2 [facility] Systolic blood 2021-01-01 18:18:00 131 mm[Hg] Univer sity of pressure [facility] Diastolic blood 2021-01-01 18:18:00 68 mm[Hg] Unive rsity of pressure [facility] Heart rate 2021-01-01 18:18:00 105 /min [facility] Body temperature 2021-01-01 18:18:00 36.28 Maria Dolores [facility] Respiratory rate 2021-01-01 18:18:00 16 /min [facility] Body height 2021-01-01 18:18:00 170.2 cm [facility] Body weight 2021-01-01 18:18:00 106.051 kg [facility] BMI 2021-01-01 18:18:00 36.62 kg/m2 [facility] Systolic blood 2020-12-25 18:37:00 126 mm[Hg] Univer sity of pressure [facility] Diastolic blood 2020-12-25 18:37:00 73 mm[Hg] Unive rsity of pressure [facility] Heart rate 2020-12-25 18:37:00 97 /min [facility] Body temperature 2020-12-25 18:37:00 36.5 Maria Dolores [facility] Respiratory rate 2020-12-25 18:37:00 16 /min [facility] Body height 2020-12-25 18:37:00 170.2 cm [facility] Body weight 2020-12-25 18:37:00 105.263 kg [facility] BMI 2020-12-25 18:37:00 36.35 kg/m2 [facility] Systolic blood 2020-12-09 15:59:00 115 mm[Hg] Univer sity of pressure [facility] Diastolic blood 2020-12-09 15:59:00 72 mm[Hg] Unive rsity of pressure [facility] Heart rate 2020-12-09 15:59:00 100 /min [facility] Body temperature 2020-12-09 15:59:00 36.83 Maria Dolores [facility] Respiratory rate 2020-12-09 15:59:00 16 /min [facility] Body height 2020-12-09 15:59:00 170.2 cm [facility] Body weight 2020-12-09 15:59:00 104.894 kg [facility] BMI 2020-12-09 15:59:00 36.22 kg/m2 [facility] Systolic blood 2020-12-04 18:09:00 109 mm[Hg] Univer sity of pressure [facility] Diastolic blood 2020-12-04 18:09:00 73 mm[Hg] Unive rsity of pressure [facility] Heart rate 2020-12-04 18:09:00 99 /min [facility] Body height 2020-12-04 18:09:00 170.2 cm [facility] Body weight 2020-12-04 18:09:00 104.055 kg [facility] BMI 2020-12-04 18:09:00 35.93 kg/m2 [facility] Oxygen saturation in 2020-12-04 18:09:00 98 /min [facility] Arterial blood by [facility] Pulse oximetry Branch Systolic blood 2020-12-04 15:50:00 128 mm[Hg] Univer sity of pressure [facility] Diastolic blood 2020-12-04 15:50:00 82 mm[Hg] Unive rsity of pressure [facility] Heart rate 2020-12-04 15:50:00 106 /min [facility] Body temperature 2020-12-04 15:50:00 36.83 Maria Dolores [facility] Respiratory rate 2020-12-04 15:50:00 16 /min [facility] Body height 2020-12-04 15:50:00 170.2 cm [facility] Body weight 2020-12-04 15:50:00 104.781 kg [facility] BMI 2020-12-04 15:50:00 36.18 kg/m2 [facility] Systolic blood 2020-11-20 20:51:00 115 mm[Hg] Univer sity of pressure [facility] Diastolic blood 2020-11-20 20:51:00 65 mm[Hg] Unive rsity of pressure [facility] Heart rate 2020-11-20 20:51:00 93 /min [facility] Body temperature 2020-11-20 20:51:00 36.83 Maria Dolores [facility] Respiratory rate 2020-11-20 20:51:00 16 /min [facility] Body height 2020-11-20 20:51:00 170.2 cm [facility] Body weight 2020-11-20 20:51:00 104.554 kg [facility] BMI 2020-11-20 20:51:00 36.10 kg/m2 [facility] Systolic blood 2020-11-08 16:17:00 116 mm[Hg] Univer sity of pressure [facility] Diastolic blood 2020-11-08 16:17:00 70 mm[Hg] Unive rsity of pressure [facility] Heart rate 2020-11-08 16:17:00 94 /min [facility] Body temperature 2020-11-08 16:17:00 36.78 Maria Dolores [facility] Respiratory rate 2020-11-08 16:17:00 16 /min [facility] Body height 2020-11-08 16:17:00 170.2 cm [facility] Body weight 2020-11-08 16:17:00 104.412 kg [facility] BMI 2020-11-08 16:17:00 36.05 kg/m2 [facility] Systolic blood 2020-10-25 18:33:00 106 mm[Hg] Univer sity of pressure [facility] Diastolic blood 2020-10-25 18:33:00 67 mm[Hg] Unive rsity of pressure [facility] Heart rate 2020-10-25 18:33:00 90 /min [facility] Body temperature 2020-10-25 18:33:00 36.83 Maria Dolores [facility] Respiratory rate 2020-10-25 18:33:00 16 /min [facility] Body height 2020-10-25 18:33:00 170.2 cm [facility] Body weight 2020-10-25 18:33:00 101.833 kg [facility] BMI 2020-10-25 18:33:00 35.16 kg/m2 [facility] Systolic blood 2020-10-11 20:46:00 116 mm[Hg] Univer sity of pressure [facility] Diastolic blood 2020-10-11 20:46:00 67 mm[Hg] Unive rsity of pressure [facility] Heart rate 2020-10-11 20:46:00 104 /min [facility] Body temperature 2020-10-11 20:46:00 36.83 Maria Dolores [facility] Respiratory rate 2020-10-11 20:46:00 16 /min [facility] Body height 2020-10-11 20:46:00 170.2 cm [facility] Body weight 2020-10-11 20:46:00 103.675 kg [facility] BMI 2020-10-11 20:46:00 35.80 kg/m2 [facility] Systolic blood 2020-10-08 15:21:00 117 mm[Hg] Univer sity of pressure [facility] Diastolic blood 2020-10-08 15:21:00 89 mm[Hg] Unive rsity of pressure [facility] Heart rate 2020-10-08 15:21:00 98 /min [facility] Body temperature 2020-10-08 15:21:00 36.56 Maria Dolores [facility] Body height 2020-10-08 15:21:00 170.2 cm [facility] Body weight 2020-10-08 15:21:00 99.791 kg [facility] BMI 2020-10-08 15:21:00 34.46 kg/m2 [facility] Oxygen saturation in 2020-10-08 15:21:00 99 /min [facility] Arterial blood by [facility] Pulse oximetry Branch Systolic blood 2020-09-20 20:57:00 126 mm[Hg] Univer sity of pressure [facility] Diastolic blood 2020-09-20 20:57:00 84 mm[Hg] Unive rsity of pressure [facility] Heart rate 2020-09-20 20:57:00 76 /min [facility] ty of [facility] Body temperature 2020-09-20 20:57:00 36.33 Maria Dolores [facility] of [facility] Respiratory rate 2020-09-20 20:57:00 16 /min Univ ersity of [facility] Body height 2020-09-20 20:57:00 167.6 cm [facility] Body weight 2020-09-20 20:57:00 102.513 kg [facility] BMI 2020-09-20 20:57:00 36.48 kg/m2 [facility] Systolic blood 2020-09-20 20:57:00 126 mm[Hg] Univer sity of pressure [facility] Diastolic blood 2020-09-20 20:57:00 84 mm[Hg] Unive rsity of pressure [facility] Heart rate 2020-09-20 20:57:00 76 /min [facility] Body temperature 2020-09-20 20:57:00 36.33 Maria Dolores [facility] Respiratory rate 2020-09-20 20:57:00 16 /min Univ [facility] of [facility] Body height 2020-09-20 20:57:00 167.6 cm [facility] Body weight 2020-09-20 20:57:00 102.513 kg [facility] BMI 2020-09-20 20:57:00 36.48 kg/m2 [facility] Systolic blood 2020-08-23 20:14:00 119 mm[Hg] Univer sity of pressure [facility] Diastolic blood 2020-08-23 20:14:00 70 mm[Hg] Unive rsity of pressure [facility] Heart rate 2020-08-23 20:14:00 92 /min [facility] Body temperature 2020-08-23 20:14:00 36.72 Maria Dolores [facility] Respiratory rate 2020-08-23 20:14:00 16 /min [facility] Body height 2020-08-23 20:14:00 167.6 cm [facility] Body weight 2020-08-23 20:14:00 99.791 kg [facility] BMI 2020-08-23 20:14:00 35.51 kg/m2 [facility] Systolic blood 2020-08-23 20:14:00 119 mm[Hg] Univer sity of pressure [facility] Diastolic blood 2020-08-23 20:14:00 70 mm[Hg] Unive rsity of pressure [facility] Heart rate 2020-08-23 20:14:00 92 /min [facility] Body temperature 2020-08-23 20:14:00 36.72 Maria Dolores [facility] Respiratory rate 2020-08-23 20:14:00 16 /min [facility] Body height 2020-08-23 20:14:00 167.6 cm [facility] Body weight 2020-08-23 20:14:00 99.791 kg [facility] BMI 2020-08-23 20:14:00 35.51 kg/m2 [facility] Systolic blood 2020-07-26 20:15:00 128 mm[Hg] Univer sity of pressure [facility] Diastolic blood 2020-07-26 20:15:00 80 mm[Hg] Unive rsity of pressure [facility] Heart rate 2020-07-26 20:15:00 111 /min [facility] Body temperature 2020-07-26 20:15:00 36.22 Maria Dolores [facility] Respiratory rate 2020-07-26 20:15:00 16 /min [facility] Body height 2020-07-26 20:15:00 167.6 cm [facility] Body weight 2020-07-26 20:15:00 99.791 kg [facility] BMI 2020-07-26 20:15:00 35.51 kg/m2 [facility] Systolic blood 2020-07-26 20:15:00 128 mm[Hg] Univer sity of pressure [facility] Diastolic blood 2020-07-26 20:15:00 80 mm[Hg] Unive rsity of pressure [facility] Heart rate 2020-07-26 20:15:00 111 /min [facility] Body temperature 2020-07-26 20:15:00 36.22 Maria Dolores [facility] Respiratory rate 2020-07-26 20:15:00 16 /min [facility] Body height 2020-07-26 20:15:00 167.6 cm [facility] Body weight 2020-07-26 20:15:00 99.791 kg [facility] BMI 2020-07-26 20:15:00 35.51 kg/m2 [facility] Systolic blood 2020-06-27 19:15:00 127 mm[Hg] Univer sity of pressure [facility] Diastolic blood 2020-06-27 19:15:00 64 mm[Hg] Unive rsity of pressure [facility] Heart rate 2020-06-27 19:15:00 85 /min [facility] Body temperature 2020-06-27 19:15:00 37.33 Maria Dolores [facility] Respiratory rate 2020-06-27 19:15:00 16 /min [facility] Body height 2020-06-27 19:15:00 170.2 cm [facility] Body weight 2020-06-27 19:15:00 99.423 kg [facility] BMI 2020-06-27 19:15:00 34.33 kg/m2 [facility] Systolic blood 2020-06-27 19:15:00 127 mm[Hg] Univer sity of pressure [facility] Diastolic blood 2020-06-27 19:15:00 64 mm[Hg] Unive rsity of pressure [facility] Heart rate 2020-06-27 19:15:00 85 /min [facility] Body temperature 2020-06-27 19:15:00 37.33 Maria Dolores [facility] Respiratory rate 2020-06-27 19:15:00 16 /min [facility] Body height 2020-06-27 19:15:00 170.2 cm [facility] Body weight 2020-06-27 19:15:00 99.423 kg [facility] BMI 2020-06-27 19:15:00 34.33 kg/m2 [facility] Systolic blood 2020-06-17 17:16:00 114 mm[Hg] Univer sity of pressure [facility] Diastolic blood 2020-06-17 17:16:00 71 mm[Hg] Unive rsity of pressure [facility] Heart rate 2020-06-17 17:16:00 83 /min [facility] Body temperature 2020-06-17 17:16:00 37.22 Maria Dolores [facility] Respiratory rate 2020-06-17 17:16:00 16 /min [facility] Body height 2020-06-17 17:16:00 170.2 cm [facility] Body weight 2020-06-17 17:16:00 99.479 kg [facility] BMI 2020-06-17 17:16:00 34.35 kg/m2 [facility] Systolic blood 2020-06-17 17:16:00 114 mm[Hg] Univer sity of pressure [facility] Diastolic blood 2020-06-17 17:16:00 71 mm[Hg] Unive rsity of pressure [facility] Heart rate 2020-06-17 17:16:00 83 /min [facility] Body temperature 2020-06-17 17:16:00 37.22 Maria Dolores [facility] Respiratory rate 2020-06-17 17:16:00 16 /min [facility] Body height 2020-06-17 17:16:00 170.2 cm [facility] Body weight 2020-06-17 17:16:00 99.479 kg [facility] BMI 2020-06-17 17:16:00 34.35 kg/m2 [facility] Systolic blood 2020-05-28 18:22:00 118 mm[Hg] Univer sity of pressure [facility] Diastolic blood 2020-05-28 18:22:00 67 mm[Hg] Unive rsity of pressure [facility] Heart rate 2020-05-28 18:22:00 86 /min [facility] Body temperature 2020-05-28 18:22:00 36.28 Maria Dolores [facility] Respiratory rate 2020-05-28 18:22:00 16 /min [facility] Body height 2020-05-28 18:22:00 170.2 cm [facility] Body weight 2020-05-28 18:22:00 99.933 kg [facility] BMI 2020-05-28 18:22:00 34.51 kg/m2 [facility] Systolic blood 2020-02-19 21:03:00 118 mm[Hg] Univer sity of pressure [facility] Diastolic blood 2020-02-19 21:03:00 79 mm[Hg] Unive rsity of pressure [facility] Heart rate 2020-02-19 21:03:00 81 /min [facility] ty of [facility] Body temperature 2020-02-19 21:03:00 36.94 Maria Dolores [facility] of [facility] Respiratory rate 2020-02-19 21:03:00 16 /min Univ ersity of [facility] Body height 2020-02-19 21:03:00 167.6 cm [facility] Body weight 2020-02-19 21:03:00 93.951 kg [facility] BMI 2020-02-19 21:03:00 33.43 kg/m2 [facility] Systolic blood 2020-01-22 14:34:00 106 mm[Hg] Univer sity of pressure [facility] Diastolic blood 2020-01-22 14:34:00 63 mm[Hg] Unive rsity of pressure [facility] Heart rate 2020-01-22 14:34:00 85 /min [facility] Body temperature 2020-01-22 14:34:00 36.67 Maria Dolores [facility] Respiratory rate 2020-01-22 14:34:00 17 /min Univ ersity of [facility] Oxygen saturation in 2020-01-22 14:34:00 98 /min University of Arterial blood by [facility] Pulse oximetry Branch Body weight 2020-01-20 01:00:00 103.874 kg [facility]i ty of [facility] BMI 2020-01-20 01:00:00 36.96 kg/m2 [facility] Systolic blood 2020-01-19 21:11:00 138 mm[Hg] Univer sity of pressure [facility] Diastolic blood 2020-01-19 21:11:00 69 mm[Hg] Unive rsity of pressure [facility] Heart rate 2020-01-19 21:10:00 95 /min [facility] Body temperature 2020-01-19 21:10:00 36.44 Maria Dolores [facility] Respiratory rate 2020-01-19 21:10:00 16 /min [facility] Body height 2020-01-19 21:10:00 167.6 cm [facility] Body weight 2020-01-19 21:10:00 103.193 kg [facility] BMI 2020-01-19 21:10:00 36.72 kg/m2 [facility] Systolic blood 2020-01-11 20:04:00 114 mm[Hg] Univer sity of pressure [facility] Diastolic blood 2020-01-11 20:04:00 80 mm[Hg] Unive rsity of pressure [facility] Heart rate 2020-01-11 20:04:00 88 /min [facility] Body temperature 2020-01-11 20:04:00 36.72 Maria Dolores [facility] Respiratory rate 2020-01-11 20:04:00 16 /min [facility] Body height 2020-01-11 20:04:00 167.6 cm [facility] Body weight 2020-01-11 20:04:00 102.711 kg [facility] BMI 2020-01-11 20:04:00 36.55 kg/m2 [facility] Systolic blood 2020-01-05 19:20:00 137 mm[Hg] Univer sity of pressure [facility] Diastolic blood 2020-01-05 19:20:00 75 mm[Hg] Unive rsity of pressure [facility] Heart rate 2020-01-05 19:20:00 91 /min [facility] Body temperature 2020-01-05 19:20:00 36.28 Maria Dolores [facility] Respiratory rate 2020-01-05 19:20:00 16 /min Univ ersity of [facility] Body height 2020-01-05 19:20:00 167.6 cm [facility] ty of [facility] Body weight 2020-01-05 19:20:00 104.327 kg [facility] BMI 2020-01-05 19:20:00 37.12 kg/m2 [facility] Systolic blood 2019-12-20 19:12:00 94 mm[Hg] Univer sity of pressure [facility] Diastolic blood 2019-12-20 19:12:00 56 mm[Hg] Unive rsity of pressure [facility] Systolic blood 2019-12-15 04:45:00 101 mm[Hg] Univer sity of pressure [facility] Diastolic blood 2019-12-15 04:45:00 71 mm[Hg] Unive rsity of pressure [facility] Heart rate 2019-12-15 04:45:00 96 /min [facility] ty of [facility] Body temperature 2019-12-15 04:45:00 36.89 Maria Dolores [facility] Respiratory rate 2019-12-15 04:45:00 18 /min [facility] Oxygen saturation in 2019-12-15 04:45:00 100 /min [facility] of Arterial blood by [facility] Pulse oximetry [place] Body height 2019-12-15 00:23:00 167.6 cm [facility]i ty of [facility] Body weight 2019-12-15 00:23:00 97.07 kg [facility] of [facility] BMI 2019-12-15 00:23:00 34.54 kg/m2 [facility] Systolic blood 2019-12-04 19:16:00 106 mm[Hg] Univer sity of pressure [facility] Diastolic blood 2019-12-04 19:16:00 69 mm[Hg] Unive rsity of pressure [facility] Systolic blood 2019-11-21 18:50:00 115 mm[Hg] Univer sity of pressure [facility] Diastolic blood 2019-11-21 18:50:00 72 mm[Hg] Unive rsity of pressure [facility] Heart rate 2019-11-21 18:50:00 93 /min [facility] Body temperature 2019-11-21 18:50:00 36.28 Maria Dolores [facility] Respiratory rate 2019-11-21 18:50:00 16 /min [facility] Body height 2019-11-21 18:50:00 167.6 cm [facility] Body weight 2019-11-21 18:50:00 97.297 kg [facility] BMI 2019-11-21 18:50:00 34.62 kg/m2 [facility] Systolic blood 2019-11-07 13:20:00 127 mm[Hg] Univer sity of pressure [facility] Diastolic blood 2019-11-07 13:20:00 68 mm[Hg] Unive rsity of pressure [facility] Heart rate 2019-11-07 13:20:00 82 /min [facility] Body temperature 2019-11-07 13:20:00 36 Maria Dolores [facility] Respiratory rate 2019-11-07 13:20:00 16 /min [facility] Body height 2019-11-07 13:20:00 167.6 cm [facility] Body weight 2019-11-07 13:20:00 96.304 kg [facility] BMI 2019-11-07 13:20:00 34.27 kg/m2 [facility] Heart rate 2019-10-18 21:00:00 102 /min [facility] Oxygen saturation in 2019-10-18 21:00:00 100 /min [facility] Arterial blood by [facility] Pulse oximetry Branch Systolic blood 2019-10-18 20:15:00 120 mm[Hg] Univer sity of pressure [facility] Diastolic blood 2019-10-18 20:15:00 67 mm[Hg] Unive rsity of pressure [facility] Body height 2019-10-18 19:55:00 167.6 cm [facility] Body weight 2019-10-18 19:55:00 94.439 kg [facility] BMI 2019-10-18 19:55:00 33.60 kg/m2 [facility] Systolic blood 2019-10-09 20:02:00 111 mm[Hg] Univer sity of pressure [facility] Diastolic blood 2019-10-09 20:02:00 62 mm[Hg] Unive rsity of pressure [facility] Heart rate 2019-10-09 20:02:00 79 /min [facility] Body temperature 2019-10-09 20:02:00 36.11 Maria Dolores [facility] Respiratory rate 2019-10-09 20:02:00 16 /min [facility] of [facility] Body height 2019-10-09 20:02:00 167.6 cm [facility] Body weight 2019-10-09 20:02:00 94.972 kg [facility] BMI 2019-10-09 20:02:00 33.79 kg/m2 [facility] Systolic blood 2019-09-11 20:09:00 110 mm[Hg] Univer sity of pressure [facility] Diastolic blood 2019-09-11 20:09:00 69 mm[Hg] Unive rsity of pressure [facility] Heart rate 2019-09-11 20:09:00 89 /min [facility] Body temperature 2019-09-11 20:09:00 36.33 Maria Dolores [facility] Respiratory rate 2019-09-11 20:09:00 16 /min Univ [facility] Body height 2019-09-11 20:09:00 167.6 cm [facility] Body weight 2019-09-11 20:09:00 90.436 kg [facility] BMI 2019-09-11 20:09:00 32.18 kg/m2 [facility] Systolic blood 2019-09-09 15:15:00 106 mm[Hg] Univer sity of pressure [facility] Diastolic blood 2019-09-09 15:15:00 61 mm[Hg] Unive rsity of pressure [facility] Heart rate 2019-09-09 15:15:00 84 /min [facility] Body temperature 2019-09-09 15:15:00 36.67 Maria Dolores [facility] Body height 2019-09-09 15:15:00 167.6 cm [facility] Body weight 2019-09-09 15:15:00 89.359 kg [facility] BMI 2019-09-09 15:15:00 31.80 kg/m2 [facility] Procedures Procedure Date / Time Performing Clinician Source Performed CBC WITH DIFF 2021-02-06 15:31:00 Josee Arrington [facility] HB ABO GROUPING 2021-02-06 15:31:00 Josee Arrington [facility] CONSENT/REFUSAL FOR 2021-02-06 15:09:47 Doctor Unassigned, [facility] DIAGNOSIS AND TREATMENT [facility] HOSPITAL ADMISSION 2021-01-09 05:01:00 Doctor Unassigned, [facility] COVID-19 (ID NOW RAPID 2021-01-07 22:32:00 Adum, Sarika Jolly [facility] TESTING) [facility] URINALYSIS 2021-01-07 22:23:00 Adum, Sarika Jolly [facility] CBC WITH DIFF 2021-01-07 22:19:00 Adum, Glidden Rik [facility] LACTATE DEHYDROGENASE 2021-01-07 22:16:00 Adum, Sarika Jolly [facility] URIC ACID 2021-01-07 22:16:00 Adum, Sarika Jolly [facility] COMP. METABOLIC PANEL 2021-01-07 22:16:00 Adum, Sarika Jolly [facility] ([id number]) [facility] CONSENT/REFUSAL FOR 2021-01-07 19:56:49 Doctor Unassarmand, [facility] DIAGNOSIS AND TREATMENT [facility] POCT URINALYSIS 2021-01-03 16:36:00 Reyes Richards [facility] POCT URINALYSIS 2021-01-01 18:21:00 Reyes Richards [facility] NON-STRESS TEST 2020-12-25 19:49:14 Reyes Richards [facility] POCT URINALYSIS 2020-12-25 18:39:00 Reyes Richards [facility] POCT URINALYSIS W/O 2020-12-09 16:02:00 Reyes Richards [facility] SPECIFIC GRAVITY [facility] POCT URINALYSIS 2020-12-04 15:52:00 Reyes Richards [facility] POCT URINALYSIS 2020-11-20 20:52:00 Reyes Richards [facility] POCT URINALYSIS 2020-11-08 18:39:00 Reyes Richards [facility] TDAP VACCINE, >11 YRS, IM 2020-11-08 16:40:10 Reyes Richards [facility] POCT URINALYSIS 2020-10-25 18:42:00 Reyes Richards [facility] POCT URINALYSIS 2020-10-11 20:47:00 Reyes Richards [facility] POCT URINALYSIS 2020-09-20 21:00:00 Reyes Richards [facility] POCT URINALYSIS 2020-08-23 20:16:00 Reyes Richards [facility] POCT URINALYSIS 2020-07-26 20:17:00 Sabino Richardsilola Phu [facility] FIRST TRIMESTER 2020-07-18 19:28:00 Sabino Richardsilola Phu [facility] FIRST TRIMESTER 2020-06-28 18:54:00 AkinSabino mitchellilola Phu [facility] POCT URINALYSIS 2020-06-27 19:16:00 [facility]yes [facility] POCT URINALYSIS 2020-06-17 17:19:00 Susie Reyes Phu [facility] ASSIGNMENT OF BENEFITS 2020-06-17 16:46:16 Doctor Un[facility]igned, [facility] [place] [facility] POCT TEST 2020-05-28 18:15:00 Reyes Richards [facility] POCT URINALYSIS W/O 2020-05-28 18:15:00 Reyes Richards [facility] SPECIFIC [facility] REPORT OF 2020-05-28 05:01:00 Doctor Unassigned, Unive [facility] [place] [facility] POCT URINALYSIS 2020-02-19 21:06:00 Reyes Richards [facility] CBC WITH DIFFERENTIAL 2020-01-22 09:15:00 Jannie Nuñez [facility] VENOUS CORD GAS 2020-01-21 09:12:00 Megahed, Lisa Osorio [facility] SGOT (ASPARTATE AMINO 2020-01-20 02:17:00 Megahed, Lisa Osorio [facility] TRAN[facility]) Medical Branch CREATININE 2020-01-20 02:17:00 [facility]hed[facility] ALANINE AMINO 2020-01-20 02:17:00 Megahed, [facility] TRANSFERASE(SGPT Medical Branch LACTATE DEHYDROGENASE 2020-01-20 02:17:00 Megahed, Lisa [facility] URIC ACID 2020-01-20 02:17:00 [facility]hed, [facility] WITH DIFFERENTIAL 2020-01-20 02:17:00 Megahed, Lisa Osorio [facility] URINALYSIS 2020-01-20 02:17:00 Megahed, Lisa Nogo [facility] HEPATITIS B SURFACE 2020-01-20 02:17:00 Megahed, Lisa Osorio [facility] ANTIGEN [facility] PROTEIN CREAT RATIO URINE 2020-01-20 02:17:00 Megahed, Lisa florez [facility] RANDOM [facility] GALV ONLY - SYPHILIS 2020-01-20 02:17:00 Megahed, Lisa Osorio [facility] IGG/IGM [facility] HB ABO GROUPING 2020-01-20 02:01:00 Megahed, Lisa Nogo [facility] RHO (D) IMMUNE GLOBULIN 2020-01-20 02:01:00 Jannie Nuñez [facility] COVID-19 (ID NOW RAPID 2020-01-20 00:33:00 Rebecca Hoff [facility] TESTING) [facility] 2020-01-19 21:11:00 Reyes Richards [facility] HOSPITAL ADMISSION 2020-01-19 05:01:00 Doctor Joelle, [facility] [place] [facility] POCT URINALYSIS 2020-01-11 20:07:00 Reyes Richards [facility] POCT URINALYSIS 2020-01-05 19:21:00 Reyes Richards [facility] POCT URINALYSIS 2019-11-21 18:55:00 Reyes Richards [facility] TDAP VACCINE, >11 YRS, IM 2019-11-21 18:52:04 Reyes Richards [facility] PATIENT CORRESPONDENCE 2019-11-21 05:01:00 Doctor Unassigned, [facility] (LETTERS, USPS [facility] [facility] DOCUMENTATION) POCT URINALYSIS 2019-11-07 13:26:00 Reyes Richards [facility] AMYLASE 2019-10-18 22:36:00 [facility] 2019-10-18 22:36:00 Adum, [facility] COMP. METABOLIC PANEL 2019-10-18 22:36:00 Adum, Sarika Rik [facility] ([id number]) [facility] CBC WITH DIFFERENTIAL 2019-10-18 21:18:00 Adum, Sarika Jolly [facility] ASSIGNMENT OF BENEFITS 2019-10-18 19:47:23 Doctor [facility], [facility] [place] NOTICE OF PRIVACY 2019-10-18 19:42:44 Doctor Unaraymundo, [facility] PRACTICES [place] [facility] POCT URINALYSIS 2019-10-09 20:05:00 Reyes Richards [facility] POCT URINALYSIS 2019-09-11 20:10:00 Reyes Richards [facility] CONSENT/REFUSAL FOR 2019-09-09 14:43:55 Doctor Joelle, [facility] DIAGNOSIS AND TREATMENT [place] [facility] [place] ASSIGNMENT OF BENEFITS 2019-09-09 14:43:42 Doctor [facility]assigned, [facility] FIRST TRIMESTER TRISOMY 2019-08-07 23:00:00 Aleyda Ocasio [facility] Encounters Start End Encounter Admission Attending Care Care Encounter Source Date/Time Date/Time Type Type Clinicians Facility Department ID 2021-06-09 Emergency [facility] [id number] Univers 05:16:59 ity [facility] 2021-06-08 Outpatient P [facility] TRICIA [id number] Univers 22:32:58 ity [facility] 2021-06-08 Outpatient P [facility] TRICIA [id number] Univers 22:28:29 ity of [facility] 2021-06-05 Emergency [facility] [id number] Univers 20:18:29 ity [facility] 2021-06-05 Outpatient P [facility] TRICIA [id number] Univers 13:56:05 ity [facility] 2021-06-05 Outpatient P [facility] TRICIA [id number] Univers 13:52:44 ity [facility] 2021-06-05 Emergency [facility] [id number] Univers [facility]:52[facility] 2021-05-09 2021-05-09 Outpatient R FLORENCIO [facility] [id number] Univers 11:00:00 11:00:00 HERMELINDO [id number] [facility] 2021-05-09 2021-05-09 Outpatient Ute MATIAS [facility] [id number] Univers 11:00:00 11:00:00 HERMELINDO [facility] 2021-05-06 2021-05-06 Outpatient MARY [facility] [id number] Univers 08:15:00 08:15:00 VINCENT [id number] ity o f [facility] 2021-03-05 2021-03-05 Outpatient R AKINSIRADHA, [facility] [id number] Univers 14:00:00 14:00:00 REYES [id number] ity o f [facility] 2021-03-05 2021-03-05 Outpatient R AKINSIPE, [facility] [id number] Univers 14:00:00 14:00:00 REYES alvaradoy o f [facility] 2021-02-19 2021-02-19 Routine [facility] 1.2.840.114 [id number] Univers 16:48:57 17:22:20 Vincent R GEOSPATIAL INFORMATION SCIENTIST 350.1.13.10 ity of Visit REGIONAL 4.2.7.2.686 Tony as MATERNAL [id number] Med ical & CHILD [address] [place] [address] 2021-02-19 2021-02-19 [facility] [id number] Univers 16:30:00 16:30:00 VINCENT [id number] ity o [facility] 2021-02-19 2021-02-19 [facility] [id number] Univers 16:30:00 16:30:00 WHITNEYA ity o [facility] 2021-02-06 2021-02-06 Emergency [facility] [id number] Univers 10:20:00 11:16:00 Josee May 350.1.13.10 i ty [facility] 4.2.7.2.686 [place] [facility] [id number] [place] [address] Branch 2021-01-14 2021-01-14 Outpatient R [facility] [id number] Univers 09:30:00 09:30:00 [id number] ity of [facility] 2021-01-10 2021-01-10 [facility] [id number] Univers 09:30:00 09:30:00 REYES [id number] ity o [facility] 2021-01-10 2021-01-10 Outpatient R AKINNANCY, [facility] [id number] Univers 09:30:00 09:30:00 REYES alvaradoy o [facility] 2021-01-09 2021-01-09 Telephone [facility] 1.2.840.114 [id number] Univers 00:00:00 00:00:00 [place] GEOSPATIAL INFORMATION SCIENTIST 350.1.13.10 ity of REGIONAL 4.2.7.2.686 Tony as MATERNAL [id number] [facility] & CHILD [address] [place] [address] 2021-01-09 2021-01-09 Orders Doctor JANETTE 1.2.840.114 [id number] Univers 00:00:00 00:00:00 Only Unassigned, [place] 350.1.13.10 ity of [place] [facility] 4.2.7.2.686 Tony as [id number] [address] 2021-01-08 2021-01-08 [facility] [id number] Univers 08:00:00 08:00:00 REYES solorio o f [facility] 2021-01-07 2021-01-07 [facility] 1.2.840.114 [id number] Univers 15:00:00 21:17:00 Encounter Sarika May 350.1.13.10 ity of [place] 4.2.7.2.686 [facility] [id number] [place] [id number] [place] 2021-01-07 2021-01-07 Telephone [facility] 1.2.840.114 [id number] Univers 00:00:00 00:00:00 [place] GEOSPATIAL INFORMATION SCIENTIST 350.1.13.10 ity of [facility] 4.2.7.2.686 Tony as MATERNAL [id number] [facility] ical & CHILD [address] [place] [address] 2021-01-07 2021-01-07 Orders Doctor JANETTE 1.2.840.114 [id number] Univers 00:00:00 00:00:00 Only Unassigned, BR[place] 350.1.13.10 ity of [place] [facility] 4.2.7.2.686 Tony as [id number] [address] 2021-01-03 2021-01-03 Outpatient R NIMA [facility] [id number] Univers 13:00:00 13:00:00 SENDIL [id number] ity [facility] 2021-01-03 2021-01-03 Outpatient R NIMA [facility] [id number] Univers 13:00:00 13:00:00 SENDIL ity [facility] 2021-01-03 2021-01-03 Routine [facility] [id number] Univers 11:07:56 12:07:53 Reyes C GEOSPATIAL INFORMATION SCIENTIST 350.1.13.10 ity of Visit REGIONAL 4.2.7.2.686 Tony as MATERNAL [id number] [facility] & [address] 2021-01-03 2021-01-03 Outpatient R SUSIE, [facility] [id number] Univers 11:00:00 11:00:00 REYES ity o [facility] 2021-01-02 2021-01-02 Nurse JANETTE Wilson 1.2.840.114 [id number] Univers 00:00:00 00:00:00 Triage Eloisa Lincoln [place] 350.1.13.10 i [facility] 4.2.7.2.686 Tony as [id number] [address] 2021-01-01 2021-01-01 Routine [facility] 1.2.820.675 [id number] Univers 13:11:31 13:26:31 Reyes C GEOSPATIAL INFORMATION SCIENTIST 350.1.13.10 ity of Visit REGIONAL 4.2.7.2.686 Tony as MATERNAL [id number] [facility] ical & CHILD [address] [place] [address] 2021-01-01 2021-01-01 [facility] [id number] Univers 13:15:00 13:15:00 REYES [id number] ity o [facility] 2021-01-01 2021-01-01 [facility] [id number] Univers 13:15:00 13:15:00 REYES ity o [facility] 2020-12-29 2020-12-29 Laboratory Lab, Adc Fam Pob I [facility] 1.2. 840.114 [id number] Univers 11:56:00 12:16:00 Only Sari Pena [facility] 350.1.13.10 [facility] 4.2.7.2.686 Tony as Professio [phone] [facility] [address] [place] [address] 2020-12-29 2020-12-29 Outpatient R [facility] [id number] Univers 11:40:00 11:40:00 [id number] ity [facility] 2020-12-29 2020-12-29 Outpatient R [facility] [id number] Univers 11:40:00 11:40:00 ity [facility] 2020-12-27 2020-12-27 Abstract [facility] 1.2.840.114 [id number] Univers 00:00:00 00:00:00 Reyes C GEOSPATIAL INFORMATION SCIENTIST 350.1.13.10 ity of REGIONAL 4.2.7.2.686 Tony as MATERNAL [id number] [facility] CHILD [address] [place] [address] 2020-12-27 2020-12-27 Telephone [facility] 1.2.840.114 [id number] Univers 00:00:00 00:00:00 Reyes C GEOSPATIAL INFORMATION SCIENTIST 350.1.13.10 ity of REGIONAL 4.2.7.2.686 Tony as MATERNAL [id number] [address] 2020-12-26 2020-12-26 Outpatient [facility] [id number] Univers 14:00:00 14:00:00 [id number] ity [facility] 2020-12-26 2020-12-26 Telephone [facility] 1.2.840.114 [id number] Univers 00:00:00 00:00:00 Reyes C GEOSPATIAL INFORMATION SCIENTIST 350.1.13.10 ity of REGIONAL 4.2.7.2.686 Tony as MATERNAL [id number] [address] 2020-12-25 2020-12-25 Routine [facility] 1.2.882.829 [id number] Univers 13:29:28 14:41:02 Reyes C GEOSPATIAL INFORMATION SCIENTIST 350.1.13.10 ity of Visit REGIONAL 4.2.7.2.686 Tony as MATERNAL [id number] [facility] & CHILD [address] [place] [address] 2020-12-25 2020-12-25 Outpatient R [facility] [id number] Univers 14:00:00 14:00:00 REYES ity o f [facility] 2020-12-25 2020-12-25 Buffing Line Set Up Worker Ultrasound, Ang-Mfm [facility] 1.2 .840.114 [id number] Univers 12:57:01 13:27:01 Visit Rashel Ackerman GEOSPATIAL INFORMATION SCIENTIST 350.1.13.10 ity of REGIONAL 4.2.7.2.686 Tony as MATERNAL [id number] [facility] ical & CHILD [address] [facility] 2020-12-25 2020-12-25 Outpatient R [facility] [id number] Univers 13:00:00 13:00:00 [id number] [facility] 2020-12-23 2020-12-23 Outpatient R HERRING, [facility] [id number] Univers 16:00:00 16:00:00 SENDIL [id number] [facility] 2020-12-23 2020-12-23 Outpatient R HERRING, [facility] [id number] Univers 16:00:00 16:00:00 SENDIL [facility] 2020-12-18 2020-12-18 Outpatient R AKINSIPE, [facility] [id number] Univers 13:00:00 13:00:00 REYES [id number] ity o [facility] 2020-12-18 2020-12-18 Outpatient R AKINSIPE, [facility] [id number] Univers 13:00:00 13:00:00 REYES alvaradoy o f [facility] 2020-12-12 2020-12-12 Outpatient R AKINSIPE, [facility] [id number] Univers 08:00:00 08:00:00 REYES [id number] ity o [facility] 2020-12-09 2020-12-09 Routine Akinsipe, [facility] 1.2.599.827 [id number] Univers 10:52:02 11:07:02 [place] GEOSPATIAL INFORMATION SCIENTIST 350.1.13.10 ity of Visit REGIONAL 4.2.7.2.686 Tony as MATERNAL [id number] [facility] & CHILD [address] [facility] 2020-12-09 2020-12-09 Outpatient R AKINSIPE, [facility] [id number] Univers 11:00:00 11:00:00 REYES [id number] ity o f [facility] 2020-12-09 2020-12-09 Outpatient R SUSIE [facility] [id number] Univers 11:00:00 11:00:00 REYES ity o f [facility] 2020-12-07 2020-12-07 Nurse Shae Cullen 1.2.840.114 [id number] Univers 00:00:00 00:00:00 Triage [place] 350.1.13.10 it y of [facility] 4.2.7.2.686 Tony as [id number] [address] 2020-12-04 2020-12-04 Office [facility] 1.2.840.114 [id number] Univers 12:48:15 13:45:19 Visit [facility] Deandra May 350.1.13.10 ity [facility] 4.2.7.2.686 [place] Profess[place] [id number] Dc dical [facility]9 [facility] 2020-12-04 2020-12-04 [facility] [id number] Univers 13:00:00 13:00:00 SENDIL [id number] ity [facility] 2020-12-04 2020-12-04 Outpatient R NIMA [facility] [id number] Univers 13:00:00 13:00:00 [facility] 2020-12-04 2020-12-04 Routine [facility] 1.2.001.365 [id number] Univers 10:12:46 10:59:17 [place] GEOSPATIAL INFORMATION SCIENTIST 350.1.13.10 ity of Visit [facility] 4.2.7.2.686 Tony as MATERNAL [id number] Med ical & CHILD [address] [facility] 2020-12-04 2020-12-04 Letter [facility] 1.2.670.005 [id number] Univers 00:00:00 00:00:00 (Out) [place] GEOSPATIAL INFORMATION SCIENTIST 350.1.13.10 ity of REGIONAL 4.2.7.2.686 Tony as MATERNAL [id number] Med ical & CHILD 107 [facility] 2020-11-28 2020-11-28 Outpatient [facility] [id number] Univers 14:00:00 14:00:00 [id number] [facility] 2020-11-27 2020-11-27 Buffing Line Set Up Worker Ultrasound, Jonathan[facility] 1.2 .840.114 [id number] Univers 13:00:50 13:30:50 Visit Rashel Ackerman GEOSPATIAL INFORMATION SCIENTIST 350.1.13.10 ity of REGIONAL 4.2.7.2.686 Tony as MATERNAL [id number] [facility] CHILD [address] [facility] 2020-11-27 2020-11-27 Outpatient R [facility] [id number] Univers 13:00:00 13:00:00 [id number] [facility] 2020-11-27 2020-11-27 Outpatient P [facility] [id number] Univers 13:00:00 13:00:00 ity [facility] 2020-11-27 2020-11-27 Abstract [facility] 1.2.840.114 [id number] Univers 00:00:00 00:00:00 [place] GEOSPATIAL INFORMATION SCIENTIST 350.1.13.10 ity of REGIONAL 4.2.7.2.686 Tony as MATERNAL [id number] [facility] & CHILD [address] [place] [address] 2020-11-20 2020-11-20 Routine [facility] 1.2.542.010 [id number] Univers 15:44:37 15:59:37 [place] GEOSPATIAL INFORMATION SCIENTIST 350.1.13.10 ity of Visit REGIONAL 4.2.7.2.686 Tony as MATERNAL [id number] [facility] & CHILD [address] [place] [address] 2020-11-20 2020-11-20 Outpatient R SUSIE, [facility] [id number] Univers 15:45:00 15:45:00 REYES [id number] ity o f [facility] 2020-11-20 2020-11-20 [facility] [id number] Univers 15:45:00 15:45:00 REYES ity o [facility] 2020-11-08 2020-11-08 Outpatient R AKINSIPE, [facility] [id number] Univers 13:30:00 13:30:00 REYES [id number] ity o [facility] 2020-11-08 2020-11-08 Outpatient R AKINSIPE, [facility] [id number] Univers 13:30:00 13:30:00 REYES ity o [facility] 2020-11-08 2020-11-08 Routine Akinsipe, [facility] 1.2.500.831 [id number] Univers 11:07:29 11:48:32 [place] GEOSPATIAL INFORMATION SCIENTIST 350.1.13.10 ity of Visit REGIONAL 4.2.7.2.686 Tony as MATERNAL [id number] Med ical & CHILD [address] [place] [address] 2020-11-08 2020-11-08 Outpatient R AKINSIPE, [facility] [id number] Univers 11:00:00 11:00:00 REYES [facility] 2020-11-06 2020-11-06 Outpatient R AKINSIPE, [facility] [id number] Univers 10:45:00 10:45:00 REYES [id number] y o [facility] 2020-11-06 2020-11-06 Outpatient R AKINSIPE, [facility] [id number] Univers 10:45:00 10:45:00 REYES ity o [facility] 2020-10-31 2020-10-31 Outpatient [facility] [id number] Univers 14:00:00 14:00:00 [id number] ity [facility] 2020-10-30 2020-10-30 Buffing Line Set Up Worker [facility]trasound, [facility] 1.2 .840.114 [id number] Univers 12:59:19 13:29:19 Visit Tyler Chapin GEOSPATIAL INFORMATION SCIENTIST 350.1. 13.10 ity of REGIONAL 4.2.7.2.686 Tony as MATERNAL [phone] [facility] ical & CHILD [address] [place] [address] 2020-10-30 2020-10-30 Outpatient R [facility] [id number] Univers 13:00:00 13:00:00 [id number] ity [facility] 2020-10-30 2020-10-30 Outpatient P [facility] [id number] Univers 13:00:00 13:00:00 ity [facility] 2020-10-30 2020-10-30 Abstract Akinsipe, [facility] 1.2.840.114 [id number] Univers 00:00:00 00:00:00 Reyes C GEOSPATIAL INFORMATION SCIENTIST 350.1.13.10 ity of REGIONAL 4.2.7.2.686 Tony as MATERNAL [id number] [facility] ical & CHILD [address] [place] [address] 2020-10-25 2020-10-25 Routine Susie, [facility] 1.2.672.124 [id number] Univers 13:14:35 13:46:56 Reyes C GEOSPATIAL INFORMATION SCIENTIST 350.1.13.10 ity of Visit REGIONAL 4.2.7.2.686 Tony as MATERNAL [id number] [facility] ical & CHILD [address] [place] [address] 2020-10-25 2020-10-25 Outpatient R AKINSIPE, [facility] [id number] Univers 13:00:00 13:00:00 REYES [id number] ity o [facility] 2020-10-25 2020-10-25 Outpatient R AKINSIPE, [facility] [id number] Univers 13:00:00 13:00:00 REYES ity o [facility] 2020-10-18 2020-10-18 Outpatient R AKINSIPE, [facility] [id number] Univers 12:45:00 12:45:00 REYES [id number] ity o [facility] 2020-10-18 2020-10-18 Outpatient R AKINSIPE, [facility] [id number] Univers 12:45:00 12:45:00 REYES ity o [facility] 2020-10-16 2020-10-16 Outpatient R AKINSIPE, [facility] [id number] Univers 15:45:00 15:45:00 REYES [id number] ity o f [facility] 2020-10-14 2020-10-14 Telephone [facility] 1.2.840.114 [id number] Univers 00:00:00 00:00:00 [place] GEOSPATIAL INFORMATION SCIENTIST 350.1.13.10 ity of REGIONAL 4.2.7.2.686 Tony as MATERNAL [id number] [facility] CHILD [address] [place] [address] 2020-10-11 2020-10-11 Routine [facility] 1.2.934.149 [id number] Univers 14:37:11 15:21:23 [place] GEOSPATIAL INFORMATION SCIENTIST 350.1.13.10 ity of Visit REGIONAL 4.2.7.2.686 Tony as MATERNAL [id number] [facility] & [address] 2020-10-11 2020-10-11 [facility] [id number] Univers 14:30:00 14:30:00 REYES [id number] ity o [facility] 2020-10-11 2020-10-11 Outpatient [facility] [id number] Univers 14:30:00 14:30:00 REYES [facility] 2020-10-08 2020-10-08 Urgent Provider, [facility] 1.2.840.114 [id number] Univers 09:16:07 10:17:01 Crisitan Sears [facility] 350.1.13.10 [facility] 4.2.7.2.686 Tony as Professio [phone] [address] Office [address] [employer] 2020-10-08 2020-10-08 Outpatient R [facility] [id number] Univers 09:00:00 09:00:00 [id number] [facility] 2020-10-08 2020-10-08 [facility] [id number] Univers 09:00:00 09:00:00 CRISTIAN [facility] 2020-10-07 2020-10-07 [facility] 1.2.840.114 [id number] Univers 00:00:00 00:00:00 [place] GEOSPATIAL INFORMATION SCIENTIST 350.1.13.10 ity of REGIONAL 4.2.7.2.686 Tony as MATERNAL [id number] [facility] & [address] 2020-10-03 2020-10-03 Outpatient R [facility] [id number] Univers 14:00:00 14:00:00 [id number] [facility] 2020-10-02 2020-10-02 Buffing Line Set Up Worker Ultrasound, Jonathan[facility] 1.2 .840.114 [id number] Univers 14:40:05 15:25:05 Visit Rashel Ackerman GEOSPATIAL INFORMATION SCIENTIST 350.1.13.10 ity of [facility] [id number] Tony as MATERNAL [id number] [facility] & [address] 2020-10-02 2020-10-02 Outpatient R [facility] [id number] Univers 14:30:00 14:30:00 [id number] 2020-10-02 Outpatient P [facility] [id number] [facility] 14:30:00 14:30:00 [facility] 2020-10-02 2020-10-02 Telephone [facility] [id number] [facility] 00:00:00 00:00:00 [place] GEOSPATIAL INFORMATION SCIENTIST [id number] ity of [facility] [id number] Tony as MATERNAL [phone] [facility] & [address] 2020-09-23 2020-09-23 Outpatient R AKINSIPE, [facility] [id number] 3N-20 Univers 09:00:00 09:00:00 REYES [id number] ity o [facility] 2020-09-23 2020-09-23 Outpatient R AKINSIPE, [facility] 49837 [id number] Univers 09:00:00 09:00:00 REYES solorio o [facility] 2020-09-20 2020-09-20 Routine Akinpe, [facility] 1.2.757.016 [id number] 14:50:44 15:12:59 Reyes C GEOSPATIAL INFORMATION SCIENTIST 350.1.13.10 Visit REGIONAL 4.2.7.2.686 MATERNAL [phone] & CHILD [address] [place] [address] 2020-09-20 2020-09-20 Routine Akinsipe, [facility] 1.2.338.088 [id number] Univers 14:50:44 15:12:59 Reyes C GEOSPATIAL INFORMATION SCIENTIST 350.1.13.10 ity of Visit REGIONAL 4.2.7.2.686 Tony as MATERNAL [phone] [facility] & CHILD [address] [place] [address] 2020-09-20 2020-09-20 Outpatient R SUSIE, [facility] [id number] Univers 15:00:00 15:00:00 [facility] 2020-09-20 2020-09-20 Outpatient R SUSIE, [facility] [id number] 3N-20 Univers 14:00:00 14:00:00 REYES [id number] ity o [facility] 2020-09-20 2020-09-20 Outpatient R AKINSIPE, [facility] 70183 [id number] Univers 14:00:00 14:00:00 [facility] 2020-09-09 2020-09-09 [facility] 1.2.840.114 [id number] 00:00:00 00:00:00 Reyes C GEOSPATIAL INFORMATION SCIENTIST 350.1.13.10 REGIONAL 4.2.7.2.686 MATERNAL [id number] & CHILD [address] [place] [address] 2020-09-09 2020-09-09 [facility] 1.2.840.114 [id number] Univers 00:00:00 00:00:00 Reyes C GEOSPATIAL INFORMATION SCIENTIST 350.1.13.10 ity of REGIONAL 4.2.7.2.686 Tony as MATERNAL [id number] [facility] & CHILD [address] [place] [address] 2020-09-05 2020-09-05 Buffing Line Set Up Worker 2, [facility] UNIVERSIT 1.2.840.11 4 [id number] 13:33:01 15:36:46 Visit [facility] Room Y HEALTH 350.1.13.10 CLINICS 4.2.7.2.686 [id number] 2020-09-05 2020-09-05 Buffing Line Set Up Worker 2, [facility] 1 .2.840.114 [id number] Univers 13:33:01 15:36:46 Visit Tyler Chapin HEALTH 350.1 .13.10 ity of CLINICS [place] [id number] [address] 2020-09-05 2020-09-05 Outpatient P [facility] [id number] Univers 13:30:00 [facility] 2020-09-05 Outpatient R [facility] [id number] -20 Univers 13:00:00 13:00:00 [id number] [facility] 2020-09-05 2020-09-05 Outpatient P [facility] [id number] Univers 13:00:00 [facility] 2020-09-05 2020-09-05 Letter Castano UNIVERSIT 1.2.549.451 [id number] 00:00:00 00:00:00 (Out) Scott HEALTH 350.1.13.10 s, [place] CLINICS 4.2.7.2.686 [id number] [facility] 2020-09-05 2020-09-05 Letter Castano UNIVERSIT 1.2.487.576 [id number] Univers 00:00:00 00:00:00 (Out) Anyai HEALTH 350.1.13.10 ity of s, [place] CLINICS 4.2.7.2.[place] [phone] [place] [address] [place] 2020-08-23 2020-08-23 Routine [facility] 1.2.701.313 [id number] 14:04:04 15:06:18 Reyes C GEOSPATIAL INFORMATION SCIENTIST 350.1.13.10 Visit REGIONAL 4.2.7.2.686 MATERNAL [id number] & CHILD [address] [place] [address] 2020-08-23 2020-08-23 Routine Akinsipe, [facility] 1.2.735.082 [id number] Univers 14:04:04 15:06:18 Reyes C GEOSPATIAL INFORMATION SCIENTIST 350.1.13.10 ity of Visit [facility] 4.2.7.2.686 Tony as MATERNAL [phone] [facility] & CHILD [address] [place] [address] 2020-08-23 2020-08-23 Outpatient R AKINSIPE, [facility] [id number] 3N-20 Univers 14:00:00 14:00:00 REYES [id number] ity o f [facility] 2020-08-23 2020-08-23 Outpatient R AKINSIPE, [facility] [id number] Univers 14:00:00 14:00:00 REYES ity o f [facility] 2020-07-29 2020-07-29 Outpatient R [facility] [id number] -20 Univers 09:15:00 09:15:00 [id number] ity of [facility] 2020-07-29 2020-07-29 Outpatient R [facility] [id number] Univers 09:15:00 09:15:00 ity of [facility] 2020-07-29 2020-07-29 Telemedici Faculty, [facility] 1.2.840.114 [id number] Univers 08:08:23 08:53:23 ne Visit Ran Walsh R GEOSPATIAL INFORMATION SCIENTIST 350.1.13.10 ity of REGIONAL 4.2.7.2.686 Tony as MATERNAL [id number] [facility] & CHILD [address] [place] [address] 2020-07-29 2020-07-29 Telemedici Faculty, [facility] 1.2.840.114 [id number] 08:08:23 08:53:23 [facility] GEOSPATIAL INFORMATION SCIENTIST 350.1.13.10 [facility] 4.2.7.2.686 MATERNAL [phone] & [address] 2020-07-26 2020-07-26 Routine Akinsipe, [facility] 1.2.122.844 [id number] Univers 14:10:32 14:29:49 Reyes C GEOSPATIAL INFORMATION SCIENTIST 350.1.13.10 ity of Visit REGIONAL 4.2.7.2.686 Tony as MATERNAL [id number] Med ical & CHILD 107 [facility] 2020-07-26 2020-07-26 Routine Daniellesipe, [facility] 1.2.657.818 [id number] 6271 14:10:32 14:29:49 Reyes C GEOSPATIAL INFORMATION SCIENTIST 350.1.13.10 Visit REGIONAL 4.2.7.2.686 MATERNAL [id number] & CHILD [address] [place] [address] 2020-07-26 2020-07-26 Outpatient R AKINSIPE, [facility] [id number] 3N-20 Univers 14:00:00 14:00:00 REYES [id number] ity o f [facility] 2020-07-26 2020-07-26 Outpatient R AKINSIPE, [facility] [id number] Univers 14:00:00 14:00:00 REYES ity o [facility] 2020-07-25 2020-07-25 Outpatient R AKINSIPE, [facility] [id number] 3N-20 Univers 13:00:00 13:00:00 REYES [id number] ity o f [facility] 2020-07-25 2020-07-25 Outpatient R AKINSIPE, [facility] [id number] Univers 13:00:00 13:00:00 REYES ity o [facility] 2020-07-19 2020-07-19 Abstract Akinsipe, [facility] 1.2.840.114 [id number] Univers 00:00:00 00:00:00 Reyes C GEOSPATIAL INFORMATION SCIENTIST 350.1.13.10 ity of REGIONAL 4.2.7.2.686 Tony as MATERNAL [phone] Med ical & CHILD [address] [place] [address] 2020-07-19 2020-07-19 Abstract Daniellesipe, [facility] 1.2.840.114 [id number] 00:00:00 00:00:00 Reyes C GEOSPATIAL INFORMATION SCIENTIST 350.1.13.10 REGIONAL 4.2.7.2.686 MATERNAL [phone] & CHILD [address] [facility] 2020-07-18 2020-07-18 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, UNIVERSIT 1.2.840.114 7 [id number] 13:50:07 14:09:23 Visit [facility] HEALTH 350.1.13.10 CLINICS 4.2.7.2.686 [id number] 113 2020-07-18 2020-07-18 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, [facility] UNIVERSIT 1.2.84 0.114 [id number] Univers 13:50:07 14:09:23 Visit Omaira Chavez [place] Y HEALTH 350.1 .13.10 ity of CLINICS [place] [id number] [address] 2020-07-18 2020-07-18 Outpatient R [facility] [id number] Univers 14:00:00 14:00:00 ity [facility] 2020-07-18 2020-07-18 Buffing Line Set Up Worker 1, [facility] UNIVERSIT 1.2.840.11 4 [id number] 12:59:10 13:43:54 Visit [facility] HEALTH 350.1.13.10 CLINICS 4.2.7.2.686 [id number] 104 2020-07-18 2020-07-18 Buffing Line Set Up Worker 1, [facility] Room UNIVERSIT 1 .2.840.114 [id number] Univers 12:59:10 13:43:54 Visit Tyler Chapin Y HEALTH 350.1 .13.10 ity of CLINICS [place] [id number] [address] 2020-07-18 2020-07-18 Outpatient R [facility] [id number] -20 Univers 13:00:00 13:00:00 [id number] ity [facility] 2020-07-18 2020-07-18 Letter Castano UNIVERSIT 1.2.285.707 [id number] [id number] 00:00:00 00:00:00 (Out) [place] Y HEALTH 350.1.13.10 s, [place] CLINICS 4.2.7.2.686 [id number] 104 2020-07-18 2020-07-18 Arsen Ocasio, UNIVERSIT 1.2.236.130 [id number] 00:00:00 00:00:00 Management Aleyda Y HEALTH 350.1.13.10 CLINICS 4.2.7.2.686 [id number] 113 2020-07-18 2020-07-18 Elliot Castano UNIVERSIT 1.2.595.977 [id number] 8147 Univers 00:00:00 00:00:00 (Out) Koutrou[place]i Y HEALTH 350.1.13.10 ity of s, [place] CLINICS 4.2.7.2.[place] [id number] [facility] [address] 2020-07-18 2020-07-18 [facility] 1.2.261.413 [id number] [id number] Univers 00:00:00 00:00:00 Management Aleyda Y HEALTH 350.1.13.10 ity of CLINICS 4.[place].7.2.[place] [id number] [facility] [address] 2020-07-15 2020-07-15 Telemedici Faculty, [facility] 1.2.840.114 [id number] 08:10:49 16:33:08 ne Visit [facility] GEOSPATIAL INFORMATION SCIENTIST 350.1.13.10 [facility] 4.2.7.2.686 MATERNAL [id number] & CHILD [address] [facility] 2020-07-15 2020-07-15 Telemedici Faculty, [facility] 1.2.840.114 [id number] Univers 08:10:49 16:33:08 ne Visit Jerrica Dang GEOSPATIAL INFORMATION SCIENTIST 350.1.13.10 ity of REGIONAL 4.2.7.2.686 Tony as MATERNAL [id number] Med ical & CHILD [address] [place] [address] 2020-07-15 2020-07-15 Outpatient R [facility] [id number] -20 Univers 10:30:00 10:30:00 ity [facility] 2020-07-15 2020-07-15 Outpatient R [facility] [id number] Univers 10:30:00 10:30:00 ity [facility] 2020-07-14 2020-07-14 Nurse Shubham SAVAGE 1.2.840.114 [id number] 00:00:00 00:00:00 Triage Jayde boland 350.1.13.10 [facility] 4.2.7.2.686 [id number] [facility] 2020-07-14 2020-07-14 Nurse Shubham SAVAGE 1.2.840.114 [id number] Univers 00:00:00 00:00:00 Triage d Jayde Witt BRIDGET 350.1.13.10 ity of [facility] 4.2.7.2.686 Tony as [id number] [address] 2020-07-01 2020-07-01 Abstract [facility] 1.2.840.114 [id number] 00:00:00 00:00:00 [place] GEOSPATIAL INFORMATION SCIENTIST 350.1.13.10 [facility] 4.2.7.2.686 MATERNAL [id number] & CHILD [address] [facility] 2020-07-01 2020-07-01 Abstract Danielleradha [facility] 1.2.840.114 [id number] Univers 00:00:00 00:00:00 [place] GEOSPATIAL INFORMATION SCIENTIST 350.1.13.10 ity [facility] 4.2.7.2.686 Tony as MATERNAL [id number] Med ical & CHILD [address] [place] [address] 2020-06-28 2020-06-28 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 2020-06-28 2020-06-28 Outpatient P [facility] [id number] Univers 13:00:00 13:00:00 ity [facility] 2020-06-27 2020-06-27 Routine [facility] 1.2.018.076 [id number] 13:00:22 13:39:22 Reyes C GEOSPATIAL INFORMATION SCIENTIST 350.1.13.10 Visit REGIONAL 4.2.7.2.686 MATERNAL [id number] & CHILD [address] [facility] 2020-06-27 2020-06-27 Routine Akinsipe, [facility] 1.2.855.975 [id number] Univers 13:00:22 13:39:22 Reyes C GEOSPATIAL INFORMATION SCIENTIST 350.1.13.10 ity of Visit [facility] 4.2.7.2.686 Tony as MATERNAL [id number] Med ical & CHILD [address] [place] [address] 2020-06-27 2020-06-27 Outpatient R AKINSIPE, [facility] [id number] 3N-20 Univers 13:00:00 13:00:00 REYES [id number] ity o [facility] 2020-06-27 2020-06-27 Outpatient R AKINSIPE, [facility] [id number] Univers 13:00:00 13:00:00 REYES alvaradoy o [facility] 2020-06-26 2020-06-26 Outpatient R AKINSIPE, [facility] [id number] 3N-20 Univers 09:15:00 09:15:00 REYES [id number] ity o [facility] 2020-06-26 2020-06-26 Outpatient R AKINSIPE, [facility] [id number] Univers 09:15:00 09:15:00 REYES alvaradoy o [facility] 2020-06-17 2020-06-17 Routine Faculty, [facility] 1.2.840.114 [id number] 10:47:26 11:48:07 [facility] GEOSPATIAL INFORMATION SCIENTIST 350.1.13.10 Visit [facility] 4.2.7.2.686 MATERNAL [id number] & CHILD [address] [facility] 2020-06-17 2020-06-17 Routine Faculty, Jonathan Garciachrandall [facility] 1.2 .840.114 [id number] Univers 10:47:26 11:48:07 Roseann Watkins GEOSPATIAL INFORMATION SCIENTIST 350.1.13.10 ity of Visit REGIONAL 4.2.7.2.686 [place] as MATERNAL [id number] Med ical & CHILD [address] [place] [address] 2020-06-17 2020-06-17 Outpatient R [facility] [id number] -20 Univers 10:30:00 10:30:00 ity of [facility] 2020-06-17 2020-06-17 Outpatient R [facility] [id number] Univers 10:30:00 10:30:00 ity of [facility] 2020-06-17 2020-06-17 Orders Doctor JANETTE 1.2.840.114 [id number] Univers 00:00:00 00:00:00 Only Unassigned, [place] 350.1.13.10 ity of [place] [facility] 4.2.7.2.686 Tony as [id number] [address] 2020-06-13 2020-06-13 Outpatient R [facility] [id number] -20 Univers 09:00:00 09:00:00 ity [facility] 2020-06-13 2020-06-13 Outpatient R [facility] [id number] Univers 09:00:00 09:00:00 ity of [facility] 2020-06-03 2020-06-03 Telephone [facility] 1.2.840.114 [id number] Univers 00:00:00 00:00:00 Reyes C GEOSPATIAL INFORMATION SCIENTIST 350.1.13.10 ity of REGIONAL 4.2.7.2.686 [place] as MATERNAL [id number] [facility] & CHILD [address] [place] [address] 2020-05-28 2020-05-28 [facility] 1.2.656.958 [id number] Univers 13:09:30 14:10:12 Reyes C GEOSPATIAL INFORMATION SCIENTIST 350.1.13.10 ity of Visit REGIONAL 4.2.7.2.686 Tony as MATERNAL [id number] [facility] & CHILD [address] [place] [address] 2020-05-28 2020-05-28 Outpatient R [facility] [id number] -20 Univers 13:00:00 13:00:00 ity [facility] 2020-05-28 2020-05-28 [facility] [id number] Univers 13:00:00 13:00:00 REYES alvaradoy o [facility] 2020-05-28 2020-05-28 Orders Doctor JANETTE 1.2.840.114 [id number] Univers 00:00:00 00:00:00 Only Unassigned, [place] 350.1.13.10 ity of [address]7.2.686 Tony as [id number] [address] 2020-05-24 2020-05-24 Outpatient R [facility] [id number] -20 Univers 07:30:00 07:30:00 [id number] ity [facility] 2020-05-23 2020-05-23 Outpatient R [facility] [id number] -20 Univers 13:00:00 13:00:00 [id number] ity [facility] 2020-05-15 2020-05-15 Telephone Akinjose m, [facility] 1.2.840.114 [id number] Univers 00:00:00 00:00:00 [place] GEOSPATIAL INFORMATION SCIENTIST 350.1.13.[address]2.686 Tony as MATERNAL [id number] [facility] ical & CHILD [address] [place] [address] 2020-03-27 2020-03-27 Outpatient AKINSIPE, [facility] [id number] 3N-20 Univers 09:45:00 09:45:00 REYES [id number] ity o [facility] 2020-03-27 2020-03-27 Outpatient R AKINSIPE, [facility] [id number] Univers 09:45:00 09:45:00 REYES ity o [facility] 2020-03-11 2020-03-11 Outpatient R AKINSIPE, [facility] [id number] 3N-20 Univers 13:30:00 13:30:00 REYES ity o [facility] 2020-03-11 2020-03-11 Outpatient R AKINSIPE, [facility] [id number] Univers 13:30:00 13:30:00 REYES ity o [facility] 2020-03-11 2020-03-11 Telephone Akinsipe, [facility] 1.2.840.114 [id number] Univers 00:00:00 00:00:00 [place] GEOSPATIAL INFORMATION SCIENTIST 350.1.13.10 ity of REGIONAL 4.2.7.2.686 Tony as MATERNAL [id number] [facility] & [address] 2020-02-19 2020-02-19 Routine Akinsipe, [facility] 1.2.688.344 [id number] Univers 15:54:50 16:20:25 Reyes C GEOSPATIAL INFORMATION SCIENTIST 350.1.13.10 ity of Visit [facility] 4.2.7.2.686 Tony as MATERNAL [id number] [facility] & [address] 2020-02-19 2020-02-19 Outpatient R AKINSIPE, [facility] [id number] 3N-20 Univers 16:00:00 16:00:00 REYES [id number] ity o [facility] 2020-02-19 2020-02-19 Outpatient R AKINSIPE, [facility] [id number] Univers 16:00:00 16:00:00 REYES alvaradoy o [facility] 2020-02-13 2020-02-13 Outpatient R AKINSIPE, [facility] [id number] 3N-20 Univers 09:00:00 09:00:00 REYES ity o [facility] 2020-02-13 2020-02-13 Outpatient R AKINSIPE, [facility] [id number] Univers 09:00:00 09:00:00 REYES ity o [facility] 2020-01-25 2020-01-25 Outpatient R [facility] [id number] -20 Univers 10:45:00 10:45:00 [id number] ity of [facility] 2020-01-19 2020-01-22 [facility] JANETTE Hoff 1.2.840.114 [id number] Univers 19:18:00 17:30:00 Encounter Rebecca GILL 350.1.13.10 ity of [facility] 4.2.7.2.686 [place] [phone] [address] 2020-01-19 2020-01-19 Routine Akinsipe, [facility] 1.2.228.881 [id number] Univers 15:53:23 16:37:17 [place] GEOSPATIAL INFORMATION SCIENTIST 350.1.13.10 ity of Visit [facility] 4.2.7.2.686 Tony as MATERNAL [id number] Med ical & CHILD 107 [facility] 2020-01-19 2020-01-19 Outpatient AKINJOSE MPE, [facility] [id number] 3N-20 Univers 16:00:00 16:00:00 REYES [id number] ity o f [facility] 2020-01-19 2020-01-19 Outpatient R AKINSIPE, [facility] [id number] Univers 16:00:00 16:00:00 REYES alvaradoy o f [facility] 2020-01-19 2020-01-19 Orders Doctor JANETTE 1.2.840.114 [id number] Univers 00:00:00 00:00:00 Only Unassigned, [place] 350.1.13.10 ity of [facility] 4.2.7.2.686 Tony as [id number] [address] 2020-01-11 2020-01-11 Routine Provider, [facility] 1 .2.840.114 [id number] Univers 14:50:53 15:22:24 Joycelyn Gonzalez GEOSPATIAL INFORMATION SCIENTIST 350.1.13.1 0 ity of Visit [facility] 4.2.7.2.686 Tony as MATERNAL [id number] Med ical & CHILD [address] [place] [address] 2020-01-11 2020-01-11 Outpatient R [facility] [id number] -20 Univers 15:00:00 15:00:00 [id number] ity [facility] 2020-01-11 2020-01-11 Outpatient R [facility] [id number] Univers 15:00:00 15:00:00 ity of [facility] 2020-01-05 2020-01-05 Routine [facility], [facility] 1.2.329.914 [id number] Univers 14:12:11 14:27:11 [place] GEOSPATIAL INFORMATION SCIENTIST 350.1.13.10 ity of Visit REGIONAL 4.2.7.2.686 Tony as MATERNAL [id number] [facility] ical & CHILD [address] [place] [address] 2020-01-05 2020-01-05 Outpatient R AKINSIPE, [facility] [id number] 3N-20 Univers 14:15:00 14:15:00 REYES [id number] ity o f [facility] 2020-01-05 2020-01-05 Outpatient R AKINSIPE, [facility] [id number] Univers 14:15:00 14:15:00 REYES ity o f [facility] 2020-01-01 2020-01-01 Nurse JANETTE Munguia 1.2.840.114 [id number] Univers 00:00:00 00:00:00 Triage Karyn Boland BR[place] 350.1.13.10 i ty of [facility] 4.2.7.2.686 Tony as [phone] [address] 2020-01-01 2020-01-01 Nurse JANETTE Dorsey 1.2.840.114 [id number] Univers 00:00:00 00:00:00 Triage Kaylene GILL 350.1.13.10 ity [facility] 4.2.7.2.686 Tony as [phone] [address] 2019-12-29 2019-12-29 [facility] 1.2.840.114 [id number] Univers 00:00:00 00:00:00 [place] GEOSPATIAL INFORMATION SCIENTIST 350.1.13.10 ity [place] [address].2.7.2.686 Tony as MATERNAL [id number] Med ical & CHILD [address] [place] [address] 2019-12-28 2019-12-28 Nurse JANETTE Tan 1.2.840.114 [id number] Univers 00:00:00 00:00:00 Triage Toshia MOSELEYY 350.1.13.10 it y of [place] [address].7.2.686 Tony as [phone] [address] 2019-12-20 2019-12-20 Outpatient R AKINSIPE, [facility] [id number] 3N-20 Univers 14:30:00 14:30:00 REYES [id number] ity o f [facility] 2019-12-20 2019-12-20 Outpatient R AKINSIPE, [facility] 59964 [id number] Univers 14:30:00 14:30:00 REYES alvaradoy o [facility] 2019-12-20 2019-12-20 [facility]ici [facility] 1.2.840.114 [id number] Univers 11:43:03 14:19:06 ne Visit Reyes C GEOSPATIAL INFORMATION SCIENTIST 350.1.13.10 ity of REGIONAL 4.2.7.2.686 Tony as MATERNAL [id number] [facility] & CHILD [address] [place] [address] 2019-12-14 2019-12-14 Emergency Amy Matias [facility] 1.2.8 40.114 [id number] Univers 18:31:58 23:45:00 Swati Vang [place] 350.1.13.10 ity of [place] 4.2.7.2.686 [place] [facility] [phone] [place] 884753 [place] 2019-12-04 2019-12-04 Telemedici [facility] 1.2.840.114 [id number] Univers 12:49:08 14:24:22 ne Visit Reyes C GEOSPATIAL INFORMATION SCIENTIST 350.1.13.10 ity of [facility] 4.2.7.2.686 Tony as MATERNAL [phone] [facility] & [address] 2019-12-04 2019-12-04 Outpatient R AKINSIPE, [facility] [id number] 3N-20 Univers 14:00:00 14:00:00 REYES [id number] ity o f [facility] 2019-12-04 2019-12-04 Outpatient R AKINSIPE, [facility] [id number] Univers 14:00:00 14:00:00 REYES ity o f [facility] 2019-11-24 2019-11-24 Telephone [facility] 1.2.840.114 [id number] Univers 00:00:00 00:00:00 Reyes C GEOSPATIAL INFORMATION SCIENTIST 350.1.13.10 ity of REGIONAL 4.2.7.2.686 Tony as MATERNAL [phone] [facility] & [address] 2019-11-21 2019-11-21 Routine [facility] 1.2.122.476 [id number] Univers 13:34:25 14:28:43 Reyes C GEOSPATIAL INFORMATION SCIENTIST 350.1.13.10 ity of Visit REGIONAL 4.2.7.2.686 Tony as MATERNAL [phone] [facility] & CHILD [address] [place] [address] 2019-11-21 2019-11-21 Outpatient R AKINSIPE, [facility] [id number] 3N-20 Univers 14:00:00 14:00:00 REYES [id number] christianoy o f [facility] 2019-11-21 2019-11-21 Outpatient R AKINSIPE, [facility] [id number] Univers 14:00:00 14:00:00 REYES solorio o [facility] 2019-11-21 2019-11-21 Orders Doctor JANETTE 1.2.840.114 [id number] Univers 00:00:00 00:00:00 Only Unassigned, [place] 350.1.13.10 ity of [place] [facility] 4.2.7.2.686 Tony as [phone] [address] 2019-11-08 2019-11-08 [facility] 1.2.840.114 [id number] Univers 00:00:00 00:00:00 [place] GEOSPATIAL INFORMATION SCIENTIST 350.1.13.10 ity of REGIONAL 4.2.7.2.686 Tony as MATERNAL [phone] Med ical & CHILD [address] [place] [address] 2019-11-07 2019-11-07 Routine [facility], [facility] [id number] Univers 07:56:19 09:14:35 [place] GEOSPATIAL INFORMATION SCIENTIST 350.1.13.10 ity of Visit REGIONAL 4.2.7.2.686 Tony as MATERNAL [phone] [facility] ical & CHILD [address] [place] [address] 2019-11-07 2019-11-07 Outpatient R AKINSIPE, [facility] [id number] 3N-20 Univers 08:00:00 08:00:00 REYES [id number] christianoy o f [facility] 2019-11-07 2019-11-07 Outpatient R AKINSIPE, [facility] 03718 [id number] Univers 08:00:00 08:00:00 REYES solorio o f [facility] 2019-11-06 2019-11-06 Outpatient R AKINSIPE, [facility] 75529 3N-20 Univers 14:00:00 14:00:00 REYES ity o f [facility] 2019-11-06 2019-11-06 Outpatient R AKINPE, [facility] 95714 [id number] Univers 14:00:00 14:00:00 REYESJUDITH solorio o f [facility] 2019-11-03 2019-11-03 Telephone [facility] 1.2.840.114 [id number] Univers 00:00:00 00:00:00 [place] GEOSPATIAL INFORMATION SCIENTIST 350.1.13.10 ity of REGIONAL 4.2.7.2.686 Tony as MATERNAL [id number] [facility] & CHILD [address] [place] [address] 2019-10-25 2019-10-25 Telephone [facility] 1.2.840.114 [id number] Univers 00:00:00 00:00:00 [place] GEOSPATIAL INFORMATION SCIENTIST 350.1.13.10 ity of REGIONAL 4.2.7.2.686 Tony as MATERNAL [phone] [address] 2019-10-18 2019-10-18 [facility] 1.2.840.114 [id number] Univers 14:43:00 18:45:00 Encounter Sarika Rik Hazen 350.1.13.10 ity [facility] 4.2.7.2.686 [place] [facility] [phone] [address] 2019-10-18 2019-10-18 [facility] [id number] Univers 14:43:00 14:43:00 SARIKA solorio [facility] 2019-10-09 2019-10-09 Routine [facility] [id number] Univers 13:43:54 14:44:59 [place] GEOSPATIAL INFORMATION SCIENTIST 350.1.13.10 ity of Visit REGIONAL 4.2.7.2.686 Tony as MATERNAL [id number] [address] 2019-10-09 2019-10-09 Outpatient R AKINJOSE MPE, [facility] [id number] 3N-20 Univers 13:45:00 13:45:00 REYES [id number] itpaul o f [facility] 2019-10-09 2019-10-09 [facility] [id number] Univers 13:45:00 13:45:00 REYES alvaradoy o f [facility] 2019-10-08 2019-10-08 Nurse JANETTE Munguia 1.2.840.114 [id number] Univers 00:00:00 00:00:00 Triage Karyn Boland BRIDGET 350.1.13.10 i ty of [facility] 4.2.7.2.686 Tony as [id number] [address] 2019-09-19 2019-09-19 Abstract [facility] 1.2.840.114 [id number] Univers 00:00:00 00:00:00 [place] GEOSPATIAL INFORMATION SCIENTIST 350.1.13.10 ity of [facility] 4.2.7.2.686 Tony as MATERNAL [id number] Med ical & CHILD [address] [place] [address] 2019-09-15 2019-09-15 Outpatient P CASTANO [facility] [id number] Univers 14:15:00 15:34:37 SCOTT alvarado y of [facility] 2019-09-11 2019-09-11 Routine [facility] [id number] Univers 13:57:39 14:43:22 [place] GEOSPATIAL INFORMATION SCIENTIST 350.1.13.10 ity of Visit [facility] 4.2.7.2.686 Tony as MATERNAL [id number] [facility] & CHILD [address] [place] [address] 2019-09-09 2019-09-09 Hospital Vang Swati [facility] 1.2.840.114 [id number] Univers 08:42:00 09:45:00 Encounter Carlos Hazen 350.1.13.10 ity of [place] 4.2.7.2.686 [place] [facility] [id number] [place] [id number] [place] 2019-09-09 2019-09-09 Nurse JANETTE Cortes 1.2.840.114 [id number] Univers 00:00:00 00:00:00 Triage Karina Martinez [place] 350.1.13.10 ity of [facility] 4.2.7.2.686 Tony as [id number] [address] 2019-08-07 2019-08-07 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, [facility]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 1.2.84 0.114 [id number] Univers 16:11:15 16:33:12 Visit Aleyda Ocasio ELIZABETH 350.1.13.10 ity of CLINICS 4.2.7.2.686 Jesi arroyo [phone] [address] 2019-07-27 2019-07-27 Emergency [facility] [id number] Univers 18:02:33 20:29:00 FROYJOSE [facility] 2019-07-09 2019-07-09 Emergency [facility] [id number] Univers 04:46:46 06:27:00 DEVIN [facility] Results Test Description Test Time Test Comments Results Result Comments Source Type and Screen - ONCE STAT 2021-02-06 16:12:19 Test Item Value Reference Range Interpretation Comme nts ABO & RH (test code = 20) A Positive Pe rformed at [facility] Laboratory [facility] Blood [address] [place], [place] [id number] Free: [phone] A No. [id number] IAT (test code = 1185) Negative Perfo rmed at [facility] Laboratory [facility] Blood [address] [place], [place] [address]Toll Free: [phone] A No. [id number] [facility] [id number] 15:42:20 Test Item Value Reference Range Interpretation Comments WBC (test code = See_Comment [Automated 4710-2) message] The sy stem which generated this result transmitted reference range : 4.30 - 11.10 10*3/?L. The reference range was not used to interpret this result as normal/abnormal . RBC (test code = See_Comment [Automated 692-8) message] The sy stem which generated this result transmitted reference range : 3.93 - 5.25 10*6/?L. The reference range was not used to interpret this result as normal/abnormal . HGB (test code = 11.2 g/dL 11.6-15.0 L 718-7) HCT (test code = 36.4 % 35.7-45.2 4544-3) MCV (test code = 84.7 fL 80.6-95.5 787-2) MCH (test code = 26.0 pg 25.9-32.8 785-6) MCHC (test code = 30.8 g/dL 31.6-35.1 L 786-4) RDW-SD (test code = 44.2 fL 39.0-49.9 56622-7) RDW-CV (test code = 14.4 % 12.0-15.5 788-0) PLT (test code = See_Comment H [Automated 777-3) message] The sy stem which generated this result transmitted reference range : 166 - 358 10*3/ ?L. The reference r barry was not used to interpret this result as normal/abnormal . MPV (test code = 9.9 fL 9.5-12.9 24341-0) NRBC/100 WBC (test See_Comment [Automat ed code = 6670308558) message] The system which generated this result transmitted reference range : 0.0 - 10.0 /100 WBCs. The refer ence range was not u sed to interpret th is result as normal/abnormal . NRBC x10^3 (test code <0.01 See_Comment [Auto mated = 1231809554) message] The s ystem which generated this result transmitted reference range : 10*3/?L. The reference range was not used to interpret this result as normal/abnormal . GRAN MAT (NEUT) % 53.3 % (test code = 770-8) IMM GRAN % (test code 0.30 % = 2011831844) LYMPH % (test code = 34.2 % 736-9) MONO % (test code = 7.9 % 5905-5) EOS % (test code = 3.5 % 713-8) BASO % (test code = 0.8 % 706-2) GRAN MAT x10^3(ANC) 4.09 10*3/uL 1.88-7.09 (test code = 3295825771) IMM GRAN x10^3 (test <0.03 0.00-0.06 code = 2252944990) LYMPH x10^3 (test code 2.63 10*3/uL 1.32-3.29 = 731-0) MONO x10^3 (test code 0.61 10*3/uL 0.33-0.92 = 742-7) EOS x10^3 (test code = 0.27 10*3/uL 0.03-0.39 711-2) BASO x10^3 (test code 0.06 10*3/uL 0.01-0.07 = 704-7) Lab Interpretation Abnormal (test code = 87722-0) [facility] RAPID TESTING)2021-01-07 23:03:32 Test Item Value Reference Range Interpretation Comments SARS-CoV-2 Rapid ID NOW Not Detected Not Detected (test code = 44885-5) MILLIE (test code = MILLIE) ID NOW COVID-19 Assay is an isothermal nucleic acid amplification test intended for the qualitative detection of nucleic acid from SARS-CoV-2 viral RNA in nasopharyngeal (PRICING STRATEGIST) specimens. It is used under Emergency Use Authorization (EUA) by FDA. The limit of detection (LOD) of the assay is 125 Genome Equivalents/mL. A positive result is indicative of the presence of SARS-CoV-2 RNA. ?Clinical correlation with patient history and other diagnostic information is necessary to determine patient infection status. A negative (Not Detected) result does not preclude SARS-CoV-2 infection. In patients with clinical symptoms and other tests that are consistent with SARS-CoV-2 infection, negative results should be treated as presumptive negative and a new specimen should be tested with alternative PCR molecular test. Invalid: Please collect a new specimen for repeat patient testing if clinically indicated. Lab Interpretation Normal (test code = 32830-2) [facility] 22:56:58 Test Item Value Reference Range Interpretation Comments APPEARANCE (test code = Clear Clear 1757195735) COLOR (test code = Yellow Yellow 6780697112) PH (test code = 4.8-8.0 9163981566) SP GRAVITY (test code = 1.003-1.030 4029443723) GLU U QUAL (test code = Normal Normal 8827448107) BLOOD (test code = Negative Negative 1098552195) KETONES (test code = 20 mg/dL Negative A 0169152381) PROTEIN (test code = Negative Negative 2887-8) UROBILIN (test code = Normal Normal 0256448133) BILIRUBIN (test code = Negative Negative 5048700748) NITRITE (test code = Negative Negative 4516845254) LEUK KAREN (test code = Negative Negative 7073528655) RBC/HPF (test code = See_Comment H [Autom ated message] 3408249536) The system [employer] generated this result transmitted ref erence range: 0 - 3 HP F. The reference range was not used to int erpret this result as normal/abnormal . WBC/HPF (test code = See_Comment [Autom ated message] 2801058214) The system [employer] generated this result transmitted ref erence range: 0 - 5 HP F. The reference range was not used to int erpret this result as normal/abnormal . BACTERIA (test code = Negative Negative 8164225593) SQ EPITH (test code = HPF 9278804165) Lab Interpretation (test Abnormal code = 75249-3) [facility] [id number] 22:56:27 Test Item Value Reference Range Interpretation Comments URIC ACID (test code = 1805181984) 4.1 mg/dL 2.9-6.0 Lab Interpretation (test code = Normal 17156-1) [facility]OL[facility] PANEL (70418)2021-01-07 22:56:27 Test Item Value Reference Range Interpretation Comments NA (test code = 137 mmol/L 135-145 7313987433) K (test code = 3.2 mmol/L 3.5-5.0 L 0514556898) CL (test code = 107 mmol/L 98-108 1466074632) CO2 TOTAL (test code = 21 mmol/L 23-31 L 2680121925) AGAP (test code = 2-16 5388366474) BUN (test code = 3 mg/dL 7-23 L 9167329868) GLUCOSE (test code = 75 mg/dL 70-110 4912888204) CREATININE (test code = 0.39 mg/dL 0.50-1.04 L 7964384565) TOTAL BILI (test code = 1.1 mg/dL 0.1-1.2 0469492930) CALCIUM (test code = 9.2 mg/dL 8.6-10.6 4348720223) T PROTEIN (test code = 7.1 g/dL 6.3-8.2 8162014030) ALBUMIN (test code = 3.5 g/dL 3.5-5.0 1236858094) ALK PHOS (test code = 103 U/L 34-122 0365541642) ALTv (test code = 14 U/L 5-35 1742-6) AST(SGOT) (test code = 19 U/L 13-40 9842845412) eGFR (test code = mL/min/1.73m2 6580379291) MILLIE (test code = MILLIE) Association of Glomerular Filtration Rate (GFR) and Staging of Kidney Disease* + --+ --+ ------+| GFR (mL/min/1.73 m2) ?| With Kidney Damage ?| ?Without Kidney Damage+ --------+ --------+ +| ?>90 ?| ?Stage one ?| ? Normal ?+ ---+ ---+ -------+| ?60-89 ?| ?Stage two ?| ? Decreased GFR ? + --+ --+ ------+| ?30-59 ?| ?Stage three ?| ? Stage three ? + --+ --+ ------+| ?15-29 ?| ?Stage four ? | ? Stage four ?+ ---+ ---+ -------+| ?<15 (or dialysis) ? ?| ?Stage five ? | ? Stage five ?+ ---+ ---+ -------+ *Each stage assumes the associated GFR level has been in effect for at least three months. ?Stages 1 to 5, with or without kidney disease, indicate chronic kidney disease. Notes: Determination of stages one and two (with eGFR >59mL/min/1.73 m2) requires estimation of kidney damage for at least three months as defined by structural or functional abnormalities of the kidney, manifested by either:Pathological abnormalities or Markers of kidney damage (including abnormalities in the composition of the blood or urine or abnormalities in imaging tests). Lab Interpretation Abnormal (test code = 24762-8) [facility] CenterLACTATE [id number] 22:56:12 Test Item Value Reference Range Interpretation Comments LDH (test code = 0211796154) 322 U/L 300-600 Lab Interpretation (test code = Normal 96679-2) [facility] WITH [id number] 22:51:29 Test Item Value Reference Range Interpretation Comments WBC (test code = See_Comment H [Automated 6690-2) message] The sy stem which generated this result transmitted reference range : 4.30 - 11.10 10*3/?L. The reference range was not used to interpret this result as normal/abnormal . RBC (test code = See_Comment L [Automated 789-8) message] The sy stem which generated this result transmitted reference range : 3.93 - 5.25 10*6/?L. The reference range was not used to interpret this result as normal/abnormal . HGB (test code = 8.7 g/dL 11.6-15.0 L 718-7) HCT (test code = 27.8 % 35.7-45.2 L 4544-3) MCV (test code = 84.5 fL 80.6-95.5 787-2) MCH (test code = 26.4 pg 25.9-32.8 785-6) MCHC (test code = 31.3 g/dL 31.6-35.1 L 786-4) RDW-SD (test code = 40.0 fL 39.0-49.9 18976-8) RDW-CV (test code = 13.2 % 12.0-15.5 788-0) PLT (test code = See_Comment H [Automated 777-3) message] The sy stem which generated this result transmitted reference range : 166 - 358 10*3/ ?L. The reference r barry was not used to interpret this result as normal/abnormal . MPV (test code = 11.1 fL 9.5-12.9 87304-5) NRBC/100 WBC (test See_Comment [Automat ed code = 7961370445) message] The system which generated this result transmitted reference range : 0.0 - 10.0 /100 WBCs. The refer ence range was not u sed to interpret th is result as normal/abnormal . NRBC x10^3 (test code <0.01 See_Comment [Auto mated = 4809370717) message] The s ystem which generated this result transmitted reference range : 10*3/?L. The reference range was not used to interpret this result as normal/abnormal . GRAN MAT (NEUT) % 74.7 % (test code = 770-8) IMM GRAN % (test code 0.50 % = 7355116058) LYMPH % (test code = 16.3 % 736-9) MONO % (test code = 7.9 % 5905-5) EOS % (test code = 0.4 % 713-8) BASO % (test code = 0.2 % 706-2) GRAN MAT x10^3(ANC) 8.91 10*3/uL 1.88-7.09 H (test code = 4769635046) IMM GRAN x10^3 (test 0.06 10*3/uL 0.00-0.06 code = 4881009358) LYMPH x10^3 (test code 1.94 10*3/uL 1.32-3.29 = 731-0) MONO x10^3 (test code 0.94 10*3/uL 0.33-0.92 H = 742-7) EOS x10^3 (test code = 0.05 10*3/uL 0.03-0.39 711-2) BASO x10^3 (test code <0.03 0.01-0.07 = 704-7) Lab Interpretation Abnormal (test code = 38355-9) [facility] URINALYSIS W SPECIFIC [id number] 16:37:00 Test Item Value Reference Range Interpretation Comments POCT U SP GRAV (test code = . 1.005-1.025 3255) POCT PH U (test code = 3254) . 5-8 POCT U LEUK EST (test code = . Negative - Negative 3263) POCT U NIT (test code = 3262) . Negative - Negative POCT U PROT (test code = 3259) trace Negative - Negative POCT U GLU (test code = 3256) negative Negative - Negative POCT U KETONE (test code = 3258) . Negative - Negative POCT U UROBILI (test code = . 0.2-1 3260) POCT U BILI (test code = 3261) . Negative - Negative POCT U BLD (test code = 3257) . Negative - Negative POCT U COLOR (test code = 3266) POCT U APPEAR (test code = 3267) [facility] URINALYSIS W SPECIFIC [id number] 18:21:00 Test Item Value Reference Range Interpretation Comments POCT U SP GRAV (test code = . 1.005-1.025 3255) POCT PH U (test code = 3254) . 5-8 POCT U LEUK EST (test code = . Negative - Negative 3263) POCT U NIT (test code = 3262) . Negative - Negative POCT U PROT (test code = 3259) trace Negative - Negative POCT U GLU (test code = 3256) neg Negative - Negative POCT U KETONE (test code = 3258) . Negative - Negative POCT U UROBILI (test code = .. 0.2-1 3260) POCT U BILI (test code = 3261) . Negative - Negative POCT U BLD (test code = 3257) . Negative - Negative POCT U COLOR (test code = 3266) POCT U APPEAR (test code = 3267) Lab Interpretation (test code = Abnormal 85165-9) [facility] CenterFETAL NON-STRESS [id number] 19:49:48NST: cat 1, reactive/reassuring, no ctx, +accels, neg decls, moderate variability [facility] URINALYSIS W SPECIFIC [id number] 18:39:00 Test Item Value Reference Range Interpretation Comments POCT U SP GRAV (test code = 3255) . 1.005-1.025 POCT PH U (test code = 3254) . 5-8 POCT U LEUK EST (test code = 3263) . Negative - Negative POCT U NIT (test code = 3262) . Negative - Negative POCT U PROT (test code = 3259) Trace Negative - Negative POCT U GLU (test code = 3256) Neg Negative - Negative POCT U KETONE (test code = 3258) . Negative - Negative POCT U UROBILI (test code = 3260) . 0.2-1 POCT U BILI (test code = 3261) . Negative - Negative POCT U BLD (test code = 3257) . Negative - Negative POCT U COLOR (test code = 3266) POCT U APPEAR (test code = 3267) [facility] URINALYSIS W/O SPECIFIC [id number] 16:02:00 Test Item Value Reference Range Interpretation Comments POCT PH U (test code = 3254) . 5-8 POCT U LEUK EST (test code = . Negative - Negative 3263) POCT U NIT (test code = 3262) . Negative - Negative POCT U PROT (test code = 3259) trace Negative - Negative POCT U GLU (test code = 3256) negative Negative - Negative POCT U KETONE (test code = 3258) . Negative - Negative POCT U BLD (test code = 3257) . Negative - Negative [facility] URINALYSIS W SPECIFIC [id number] 15:52:00 Test Item Value Reference Range Interpretation Comments POCT U SP GRAV (test code = 3255) . 1.005-1.025 POCT PH U (test code = 3254) . 5-8 POCT U LEUK EST (test code = 3263) . Negative - Negative POCT U NIT (test code = 3262) . Negative - Negative POCT U PROT (test code = 3259) Neg Negative - Negative POCT U GLU (test code = 3256) Neg Negative - Negative POCT U KETONE (test code = 3258) . Negative - Negative POCT U UROBILI (test code = 3260) . 0.2-1 POCT U BILI (test code = 3261) . Negative - Negative POCT U BLD (test code = 3257) . Negative - Negative POCT U COLOR (test code = 3266) POCT U APPEAR (test code = 3267) [facility] URINALYSIS W SPECIFIC [id number] 20:52:00 Test Item Value Reference Range Interpretation Comments POCT U SP GRAV (test code = 3255) . 1.005-1.025 POCT PH U (test code = 3254) . 5-8 POCT U LEUK EST (test code = 3263) . Negative - Negative POCT U NIT (test code = 3262) . Negative - Negative POCT U PROT (test code = 3259) Trace Negative - Negative POCT U GLU (test code = 3256) Neg Negative - Negative POCT U KETONE (test code = 3258) . Negative - Negative POCT U UROBILI (test code = 3260) . 0.2-1 POCT U BILI (test code = 3261) . Negative - Negative POCT U BLD (test code = 3257) . Negative - Negative POCT U COLOR (test code = 3266) POCT U APPEAR (test code = 3267) [facility] URINALYSIS W SPECIFIC [id number] 18:39:00 Test Item Value Reference Range Interpretation Comments POCT U SP GRAV (test code = 3255) . 1.005-1.025 POCT PH U (test code = 3254) . 5-8 POCT U LEUK EST (test code = 3263) . Negative - Negative POCT U NIT (test code = 3262) . Negative - Negative POCT U PROT (test code = 3259) Trace Negative - Negative POCT U GLU (test code = 3256) Neg Negative - Negative POCT U KETONE (test code = 3258) . Negative - Negative POCT U UROBILI (test code = 3260) . 0.2-1 POCT U BILI (test code = 3261) . Negative - Negative POCT U BLD (test code = 3257) . Negative - Negative POCT U COLOR (test code = 3266) POCT U APPEAR (test code = 3267) [facility] URINALYSIS W SPECIFIC [id number] 18:42:00 Test Item Value Reference Range Interpretation Comments POCT U SP GRAV (test code = 3255) . 1.005-1.025 POCT PH U (test code = 3254) . 5-8 POCT U LEUK EST (test code = 3263) . Negative - Negative POCT U NIT (test code = 3262) . Negative - Negative POCT U PROT (test code = 3259) Trace Negative - Negative POCT U GLU (test code = 3256) Neg Negative - Negative POCT U KETONE (test code = 3258) . Negative - Negative POCT U UROBILI (test code = 3260) . 0.2-1 POCT U BILI (test code = 3261) . Negative - Negative POCT U BLD (test code = 3257) . Negative - Negative POCT U COLOR (test code = 3266) POCT U APPEAR (test code = 3267) [facility] URINALYSIS W SPECIFIC [id number] 20:47:00 Test Item Value Reference Range Interpretation Comments POCT U SP GRAV (test code = 3255) . 1.005-1.025 POCT PH U (test code = 3254) . 5-8 POCT U LEUK EST (test code = 3263) . Negative - Negative POCT U NIT (test code = 3262) Trace Negative - Negative POCT U PROT (test code = 3259) Neg Negative - Negative POCT U GLU (test code = 3256) . Negative - Negative POCT U KETONE (test code = 3258) . Negative - Negative POCT U UROBILI (test code = 3260) . 0.2-1 POCT U BILI (test code = 3261) . Negative - Negative POCT U BLD (test code = 3257) . Negative - Negative POCT U COLOR (test code = 3266) POCT U APPEAR (test code = 3267) [facility] URINALYSIS W SPECIFIC [id number] 20:47:00 Test Item Value Reference Range Interpretation Comments POCT U SP GRAV (test code = 3255) . 1.005-1.025 POCT PH U (test code = 3254) . 5-8 POCT U LEUK EST (test code = 3263) . Negative - Negative POCT U NIT (test code = 3262) Trace Negative - Negative POCT U PROT (test code = 3259) Neg Negative - Negative POCT U GLU (test code = 3256) . Negative - Negative POCT U KETONE (test code = 3258) . Negative - Negative POCT U UROBILI (test code = 3260) . 0.2-1 POCT U BILI (test code = 3261) . Negative - Negative POCT U BLD (test code = 3257) . Negative - Negative POCT U COLOR (test code = 3266) POCT U APPEAR (test code = 3267) [facility] URINALYSIS W SPECIFIC [id number] 20:47:00 Test Item Value Reference Range Interpretation Comments POCT U SP GRAV (test code = 3255) . 1.005-1.025 POCT PH U (test code = 3254) . 5-8 POCT U LEUK EST (test code = 3263) . Negative - Negative POCT U NIT (test code = 3262) Trace Negative - Negative POCT U PROT (test code = 3259) Neg Negative - Negative POCT U GLU (test code = 3256) . Negative - Negative POCT U KETONE (test code = 3258) . Negative - Negative POCT U UROBILI (test code = 3260) . 0.2-1 POCT U BILI (test code = 3261) . Negative - Negative POCT U BLD (test code = 3257) . Negative - Negative POCT U COLOR (test code = 3266) POCT U APPEAR (test code = 3267) [facility] URINALYSIS W SPECIFIC [id number] 21:00:00 Test Item Value Reference Range Interpretation Comments POCT U SP GRAV (test code = . 1.005-1.025 3255) POCT PH U (test code = 3254) . 5-8 POCT U LEUK EST (test code = . Negative - Negative 3263) POCT U NIT (test code = 3262) . Negative - Negative POCT U PROT (test code = 3259) trace Negative - Negative POCT U GLU (test code = 3256) negative Negative - Negative POCT U KETONE (test code = 3258) . Negative - Negative POCT U UROBILI (test code = . 0.2-1 3260) POCT U BILI (test code = 3261) . Negative - Negative POCT U BLD (test code = 3257) . Negative - Negative POCT U COLOR (test code = 3266) POCT U APPEAR (test code = 3267) [facility] URINALYSIS W SPECIFIC [id number] 20:16:00 Test Item Value Reference Range Interpretation Comments POCT U SP GRAV (test code = 3255) . 1.005-1.025 POCT PH U (test code = 3254) . 5-8 POCT U LEUK EST (test code = 3263) . Negative - Negative POCT U NIT (test code = 3262) . Negative - Negative POCT U PROT (test code = 3259) Trace Negative - Negative POCT U GLU (test code = 3256) Neg Negative - Negative POCT U KETONE (test code = 3258) . Negative - Negative POCT U UROBILI (test code = 3260) . 0.2-1 POCT U BILI (test code = 3261) . Negative - Negative POCT U BLD (test code = 3257) . Negative - Negative POCT U COLOR (test code = 3266) POCT U APPEAR (test code = 3267) [facility] URINALYSIS W SPECIFIC [id number] 20:17:00 Test Item Value Reference Range Interpretation Comments POCT U SP GRAV (test code = . 1.005-1.025 3255) POCT PH U (test code = 3254) . 5-8 POCT U LEUK EST (test code = . Negative - Negative 3263) POCT U NIT (test code = 3262) . Negative - Negative POCT U PROT (test code = 3259) 1+ Negative - Negative POCT U GLU (test code = 3256) negative Negative - Negative POCT U KETONE (test code = 3258) . Negative - Negative POCT U UROBILI (test code = . 0.2-1 3260) POCT U BILI (test code = 3261) . Negative - Negative POCT U BLD (test code = 3257) . Negative - Negative POCT U COLOR (test code = 3266) POCT U APPEAR (test code = 3267) [facility] URINALYSIS W SPECIFIC [id number] 19:16:00 Test Item Value Reference Range Interpretation Comments POCT U SP GRAV (test code = 3255) . 1.005-1.025 POCT PH U (test code = 3254) . 5-8 POCT U LEUK EST (test code = 3263) . Negative - Negative POCT U NIT (test code = 3262) . Negative - Negative POCT U PROT (test code = 3259) Trace Negative - Negative POCT U GLU (test code = 3256) Neg Negative - Negative POCT U KETONE (test code = 3258) . Negative - Negative POCT U UROBILI (test code = 3260) . 0.2-1 POCT U BILI (test code = 3261) . Negative - Negative POCT U BLD (test code = 3257) . Negative - Negative POCT U COLOR (test code = 3266) POCT U APPEAR (test code = 3267) [facility] URINALYSIS W SPECIFIC [id number] 17:19:00 Test Item Value Reference Range Interpretation Comments POCT U SP GRAV (test code = 3255) . 1.005-1.025 POCT PH U (test code = 3254) 7 mg/dl 5-8 POCT U LEUK EST (test code = 1+ Negative - Negative 3263) POCT U NIT (test code = 3262) Neg Negative - Negative POCT U PROT (test code = 3259) Trace Negative - Negative POCT U GLU (test code = 3256) Neg Negative - Negative POCT U KETONE (test code = 3258) None Negative - Negative POCT U UROBILI (test code = 3260) . 0.2-1 POCT U BILI (test code = 3261) . Negative - Negative POCT U BLD (test code = 3257) Neg Negative - Negative POCT U COLOR (test code = 3266) POCT U APPEAR (test code = 3267) [facility] URINALYSIS W SPECIFIC [id number] 17:19:00 Test Item Value Reference Range Interpretation Comments POCT U SP GRAV (test code = 3255) . 1.005-1.025 POCT PH U (test code = 3254) 7 mg/dl 5-8 POCT U LEUK EST (test code = 1+ Negative - Negative 3263) POCT U NIT (test code = 3262) Neg Negative - Negative POCT U PROT (test code = 3259) Trace Negative - Negative POCT U GLU (test code = 3256) Neg Negative - Negative POCT U KETONE (test code = 3258) None Negative - Negative POCT U UROBILI (test code = 3260) . 0.2-1 POCT U BILI (test code = 3261) . Negative - Negative POCT U BLD (test code = 3257) Neg Negative - Negative POCT U COLOR (test code = 3266) POCT U APPEAR (test code = 3267) [facility] [id number] 18:15:00 Test Item Value Reference Range Interpretation Comments POCT PREG (test code = 1605) Positive On board controls acceptable with C Yes Line (test code = 2784) POCT PREG LOT # (test code = 6070) POCT PREG TEST DATE (test code = 3576) [facility] URINALYSIS W/O SPECIFIC [id number] 18:15:00 Test Item Value Reference Range Interpretation Comments POCT PH U (test code = 3254) 5 mg/dl 5-8 POCT U LEUK EST (test code = Trace Negative - Negative 3263) POCT U NIT (test code = 3262) Neg Negative - Negative POCT U PROT (test code = 3259) Trace Negative - Negative POCT U GLU (test code = 3256) Neg Negative - Negative POCT U KETONE (test code = 3258) None Negative - Negative POCT U BLD (test code = 3257) Trace Negative - Negative [facility] URINALYSIS W SPECIFIC [id number] 21:06:00 Test Item Value Reference Range Interpretation Comments POCT U SP GRAV (test code = 3255) . 1.005-1.025 POCT PH U (test code = 3254) . 5-8 POCT U LEUK EST (test code = 3263) . Negative - Negative POCT U NIT (test code = 3262) . Negative - Negative POCT U PROT (test code = 3259) Trace Negative - Negative POCT U GLU (test code = 3256) Neg Negative - Negative POCT U KETONE (test code = 3258) . Negative - Negative POCT U UROBILI (test code = 3260) . 0.2-1 POCT U BILI (test code = 3261) . Negative - Negative POCT U BLD (test code = 3257) . Negative - Negative POCT U COLOR (test code = 3266) POCT U APPEAR (test code = 3267) [facility] WITH [id number] 09:31:00 Test Item Value Reference Range Interpretation Comments WBC (test code = See_Comment H [Automated 1090-2) message] The system which generated this result transmit sejal reference range : 4.30 - 11.10 10*3/?L. The reference range was not used to interpret this result as normal/abnormal . RBC (test code = See_Comment L [Automated 168-8) message] The system which generated this result transmit sejal reference range : 3.93 - 5.25 10*6/?L. The reference range was not used to interpret this result as normal/abnormal . HGB (test code = 7.6 g/dL 11.6-15 L 718-7) HCT (test code = 24.4 % 35.7-45.2 L 4544-3) MCV (test code = 90.7 fL 80.6-95.5 787-2) MCH (test code = 28.3 pg 25.9-32.8 785-6) MCHC (test code = 31.1 g/dL 31.6-35.1 L 786-4) RDW-SD (test code = 42.1 fL 39-49.9 58228-1) RDW-CV (test code = 13.1 % 12-15.5 788-0) PLT (test code = See_Comment [Automated 777-3) message] The system which generated this result transmit sejal reference range : 166 - 358 10*3/ ?L. The reference range was not u sed to interpret th is result as normal/abnormal . MPV (test code = 11.0 fL 9.5-12.9 14358-1) NRBC/100 WBC (test See_Comment [Automat ed code = 3614818224) message] The system which generated this result transmit sejal reference range : 0.0 - 10.0 /100 WBCs. The reference range was not used to interpret this result as normal/abnormal . NRBC x10^3 (test code <0.01 See_Comment [Auto mated = 6334730255) message] The system which generated this result transmit sejal reference range : 10*3/?L. The reference range was not used to interpret this result as normal/abnormal . GRAN MAT (NEUT) % 68.8 % (test code = 770-8) IMM GRAN % (test code 0.70 % = 6553977749) LYMPH % (test code = 19.9 % 736-9) MONO % (test code = 9.1 % 5905-5) EOS % (test code = 1.1 % 713-8) BASO % (test code = 0.4 % 706-2) GRAN MAT x10^3(ANC) 10.22 10*3/uL 1.88-7.09 H (test code = 7630910935) IMM GRAN x10^3 (test 0.10 10*3/uL 0-0.06 H code = 8480140077) LYMPH x10^3 (test code 2.96 10*3/uL 1.32-3.29 = 731-0) MONO x10^3 (test code 1.36 10*3/uL 0.33-0.92 H = 742-7) EOS x10^3 (test code = 0.17 10*3/uL 0.03-0.39 711-2) BASO x10^3 (test code 0.06 10*3/uL 0.01-0.07 = 704-7) Lab Interpretation Abnormal (test code = 26050-9) [facility] [id number] 13:27:45 Test Item Value Reference Range Interpretation Comments RHIG CANDIDATE? No- see comment Patient i s not a (test code = candidate for R hIg- 5055) Patient is Rh Positive.Perfor med at [facility] Laboratory Services - [facility] Blood [address] [place] [id number] Free: [phone] A No. [id number] [facility]ORD [id number] 09:27:00 Test Item Value Reference Range Interpretation Comments BASE EXCESS, CORD mEq/L (test code = 7505273510) AC PH, CORD (BEAKER) 7.18-7.38 (test code = 1614918789) PC02, CORD (test code See_Comment [Auto mated message] The = 1206800946) system which g enerated this result transmit sejal reference range : 32 - 66 mmHg. The refer ence range was not used to interpret this result as normal/abnormal . PO2, CORD (test code See_Comment [Autom ated message] The = 1509517692) system which g enerated this result transmit sejal reference range : 10 - 30 mmHg. The refer ence range was not used to interpret this result as normal/abnormal . BICARBONATE, CORD See_Comment [Automate d message] The (test code = system which ge nerated this 6515083614) result transmit sejal reference range : 17 - 27 mEq/L. The refe rence range was not used to interpret this result as normal/abnormal . [facility] [id number] 09:25:00 Test Item Value Reference Range Interpretation Comments VENOUS BASE EXCESS, mEq/L CORD (test code = 7818073158) VENOUS PH, CORD (test 7.25-7.45 code = 3613155064) VENOUS PC02, CORD See_Comment [Automate d message] The (test code = system which ge nerated 7707216303) this result tra nsmitted reference range : 27 - 49 mmHg. The refer ence range was not used to interpret this result as normal/abnormal . VENOUS PO2, CORD (test See_Comment [Aut omated message] The code = 1108030028) system [facility] generated this result tra nsmitted reference range : 17 - 41 mmHg. The refer ence range was not used to interpret this result as normal/abnormal . VENOUS BICARBONATE, See_Comment [Automa sejal message] The CORD (test code = system whi ch generated 6260698509) this result tra nsmitted reference range : 12 - 29 mEq/L. The refe rence range was not used to interpret this result as normal/abnormal . [facility] - SYPHILIS [id number] 14:23:00 Test Item Value Reference Range Interpretation Comments Syphilis IgG/IgM (test Non-reactive Non-reactive code = 03011-4) MILLIE (test code = MILLIE) Non-reactive - No serologic evidence of T. pallidum infection. Cannot exclude incubating or early syphilis. Submit a second specimen in 2-4 weeks if syphilis is clinically suspected. Equivocal - Further testing to follow. Reactive - Further testing to follow. Lab Interpretation (test Normal code = 43256-0) [facility] CenterType and Screen - ONCE [id number] 04:25:53 Test Item Value Reference Range Interpretation Comments ABO & RH (test code A POSITIVE Performe d at [facility] = 20) Laboratory Serv [facility] Blood Bank[facility] s [address]Fvuw Free: [phone] A No. [id number] IAT (test code = Negative Performed a t [facility] 1185) Laboratory Serv [facility] Blood [facility] s [address]Eofl Free: [phone] A No. [id number] [facility] CenterHepatitis B Surface [id number] 04:08:00 Test Item Value Reference Range Interpretation Comments HBsAg Semi-Quantitative (test code = Negative Negative 5195-3) [facility] CenterU[facility] Acid [id number] 03:38:00 Test Item Value Reference Range Interpretation Comments URIC ACID (test code = 3973645111) 4.1 mg/dL 2.9-6 Lab Interpretation (test code = Normal 49113-2) [facility] CenterSerum [id number] 03:38:00 Test Item Value Reference Range Interpretation Comments CREATININE (test code = 0.37 mg/dL 0.5-1.04 L 4588049423) eGFR Calculation mL/min/1.73m2 (Non-) (test code = 3238745759) eGFR Calculation mL/min/1.73m2 () (test code = 8708574428) MILLIE (test code = MILLIE) Association of Glomerular Filtration Rate (GFR) and Staging of Kidney Disease* + --+ --+ ------+| GFR (mL/min/1.73 m2) ?| With Kidney Damage ?| ?Without Kidney Damage+ --------+ --------+ +| ?>90 ?| ?Stage one ?| ? Normal ?+ ---+ ---+ -------+| ?60-89 ?| ?Stage two ?| ? Decreased GFR ? + --+ --+ ------+| ?30-59 ?| ?Stage three ?| ? Stage three ? + --+ --+ ------+| ?15-29 ?| ?Stage four ? | ? Stage four ?+ ---+ ---+ -------+| ?<15 (or dialysis) ? ?| ?Stage five ? | ? Stage five ?+ ---+ ---+ -------+ *Each stage assumes the associated GFR level has been in effect for at least three months. ?Stages 1 to 5, with or without kidney disease, indicate chronic kidney disease. Notes: Determination of stages one and two (with eGFR >59mL/min/1.73 m2) requires estimation of kidney damage for at least three months as defined by structural or functional abnormalities of the kidney, manifested by either:Pathological abnormalities or Markers of kidney damage (including abnormalities in the composition of the blood or urine or abnormalities in imaging tests). Lab Interpretation Abnormal (test code = 95729-4) [facility] CenterSGOT (Asparate Amino Transfer)2020-01-20 03:38:00 Test Item Value Reference Range Interpretation Comments AST(SGOT) (test code = 5293831365) 19 U/L 13-40 Lab Interpretation (test code = Normal 28545-0) [facility] CenterAlanine Amino Transferase (SGPT)2020-01-20 03:38:00 Test Item Value Reference Range Interpretation Comments ALTv (test code = 1742-6) 10 U/L 5-35 Lab Interpretation (test code = Normal 62048-6) [facility] CenterProtein CREAT Ratio Urine [id number] 03:37:00 Test Item Value Reference Range Interpretation Comments T. PROT U (test <5 mg/dL code = 2888-6) CREAT U (test code 341.6 mg/dL = 5536316535) Protein/Creatinine Unable to calculate Ratio Urine (test because, e ither urine code = 1736630154) total pro tein, urine creatinine, or both are less than the sensitivity of the analyzer. [facility] CenterLactate [id number] 03:37:00 Test Item Value Reference Range Interpretation Comments LDH (test code = 9156702878) 476 U/L 300-600 Lab Interpretation (test code = Normal 61132-2) [facility] CenterUrinalysis2020-06-13 03:32:00 Test Item Value Reference Range Interpretation Comments APPEARANCE (test code = Hazy Clear A 5123904932) COLOR (test code = [place] Yellow A 2604566841) PH (test code = 4.8-8.0 0785929527) SP GRAVITY (test code = 1.003-1.030 H 1280768740) GLU U QUAL (test code = Normal Normal 4511354066) BLOOD (test code = Negative Negative Interfere nce from 8004142377) ascorbic acid m ay cause false neg ative results. KETONES (test code = 5 mg/dL Negative A 9601785986) PROTEIN (test code = 100 mg/dL Negative A 2887-8) UROBILIN (test code = Normal Normal 3574448694) BILIRUBIN (test code = Negative Negative 5502465110) NITRITE (test code = Negative Negative 7719592012) LEUK KAREN (test code = Negative Negative 2387170217) RBC/HPF (test code = See_Comment [Autom ated message] 0522907106) The system [employer] generated this result transmitted ref erence range: 0 - 3 HP F. The reference range was not used to int erpret this result as normal/abnormal . WBC/HPF (test code = See_Comment [Autom ated message] 4403652348) The system [employer] generated this result transmitted ref erence range: 0 - 5 HP F. The reference range was not used to int erpret this result as normal/abnormal . BACTERIA (test code = Negative Negative 7730673124) MUCOUS (test code = Marked Negative LPF A 6355051839) SQ EPITH (test code = See_Comment H [Auto mated message] 1557073300) The system [employer] generated this result transmitted ref erence range: <=2 HPF. The reference range was not used to int erpret this result as normal/abnormal . ASCORBIC ACID (test 40 mg/dL code = 7445409163) Lab Interpretation Abnormal (test code = 39963-9) [facility] WITH [id number] 03:30:00 Test Item Value Reference Range Interpretation Comments WBC (test code = See_Comment H [Automated 6690-2) message] The system which generated this result transmit sejal reference range : 4.30 - 11.10 10*3/?L. The reference range was not used to interpret this result as normal/abnormal . RBC (test code = See_Comment L [Automated 789-8) message] The system which generated this result transmit sejal reference range : 3.93 - 5.25 10*6/?L. The reference range was not used to interpret this result as normal/abnormal . HGB (test code = 9.8 g/dL 11.6-15 L 718-7) HCT (test code = 31.4 % 35.7-45.2 L 4544-3) MCV (test code = 89.5 fL 80.6-95.5 787-2) MCH (test code = 27.9 pg 25.9-32.8 785-6) MCHC (test code = 31.2 g/dL 31.6-35.1 L 786-4) RDW-SD (test code = 41.2 fL 39-49.9 83621-6) RDW-CV (test code = 12.8 % 12-15.5 788-0) PLT (test code = See_Comment H [Automated 777-3) message] The system which generated this result transmit sejal reference range : 166 - 358 10*3/ ?L. The reference range was not u sed to interpret th is result as normal/abnormal . MPV (test code = 11.6 fL 9.5-12.9 76686-2) NRBC/100 WBC (test See_Comment [Automat ed code = 7023832468) message] The system which generated this result transmit sejal reference range : 0.0 - 10.0 /100 WBCs. The reference range was not used to interpret this result as normal/abnormal . NRBC x10^3 (test code <0.01 See_Comment [Auto mated = 2718650305) message] The system which generated this result transmit sejal reference range : 10*3/?L. The reference range was not used to interpret this result as normal/abnormal . GRAN MAT (NEUT) % 77.8 % (test code = 770-8) IMM GRAN % (test code 0.40 % = 5498836581) LYMPH % (test code = 12.9 % 736-9) MONO % (test code = 8.4 % 5905-5) EOS % (test code = 0.4 % 713-8) BASO % (test code = 0.1 % 706-2) GRAN MAT x10^3(ANC) 12.58 10*3/uL 1.88-7.09 H (test code = 5281985995) IMM GRAN x10^3 (test 0.07 10*3/uL 0-0.06 H code = 9570357900) LYMPH x10^3 (test code 2.08 10*3/uL 1.32-3.29 = 731-0) MONO x10^3 (test code 1.36 10*3/uL 0.33-0.92 H = 742-7) EOS x10^3 (test code = 0.06 10*3/uL 0.03-0.39 711-2) BASO x10^3 (test code <0.03 0.01-0.07 = 704-7) Lab Interpretation Abnormal (test code = 64778-1) [facility]COVID[facility] (ID NOW RAPID TESTING)2020-01-20 01:10:00 Test Item Value Reference Range Interpretation Comments SARS-CoV-2 Rapid ID NOW Not Detected Not Detected (test code = 40425-7) MILLIE (test code = MILLIE) ID NOW COVID-19 Assay is an isothermal nucleic acid amplification test intended for the qualitative detection of nucleic acid from SARS-CoV-2 viral RNA in nasopharyngeal (PRICING STRATEGIST) specimens. It is used under Emergency Use Authorization (EUA) by FDA. The limit of detection (LOD) of the assay is 125 Genome Equivalents/mL. A positive result is indicative of the presence of SARS-CoV-2 RNA. ?Clinical correlation with patient history and other diagnostic information is necessary to determine patient infection status. A negative (Not Detected) result does not preclude SARS-CoV-2 infection. In patients with clinical symptoms and other tests that are consistent with SARS-CoV-2 infection, negative results should be treated as presumptive negative and a new specimen should be tested with alternative PCR molecular test. Invalid: Please collect a new specimen for repeat patient testing if clinically indicated. Lab Interpretation Normal (test code = 05765-4) [facility] CenterPO[facility] W SPECIFIC [id number] 21:12:00 Test Item Value Reference Range Interpretation Comments POCT U SP GRAV (test code = . 1.005-1.025 3255) POCT PH U (test code = 3254) 5 mg/dl 5-8 POCT U LEUK EST (test code = trace Negative - Negative 3263) POCT U NIT (test code = 3262) neg Negative - Negative POCT U PROT (test code = 3259) 2+ Negative - Negative POCT U GLU (test code = 3256) neg Negative - Negative POCT U KETONE (test code = 3258) neg Negative - Negative POCT U UROBILI (test code = . 0.2-1 3260) POCT U BILI (test code = 3261) . Negative - Negative POCT U BLD (test code = 3257) neg Negative - Negative POCT U COLOR (test code = 3266) POCT U APPEAR (test code = 3267) Lab Interpretation (test code = Abnormal 19075-2) [facility] URINALYSIS W SPECIFIC [id number] 20:07:00 Test Item Value Reference Range Interpretation Comments POCT U SP GRAV (test code = 3255) . 1.005-1.025 POCT PH U (test code = 3254) . 5-8 POCT U LEUK EST (test code = 3263) . Negative - Negative POCT U NIT (test code = 3262) . Negative - Negative POCT U PROT (test code = 3259) Trace Negative - Negative POCT U GLU (test code = 3256) Neg Negative - Negative POCT U KETONE (test code = 3258) . Negative - Negative POCT U UROBILI (test code = 3260) . 0.2-1 POCT U BILI (test code = 3261) . Negative - Negative POCT U BLD (test code = 3257) . Negative - Negative POCT U COLOR (test code = 3266) POCT U APPEAR (test code = 3267) [facility] URINALYSIS W SPECIFIC [id number] 19:21:00 Test Item Value Reference Range Interpretation Comments POCT U SP GRAV (test code = . 1.005-1.025 3255) POCT PH U (test code = 3254) . 5-8 POCT U LEUK EST (test code = . Negative - Negative 3263) POCT U NIT (test code = 3262) . Negative - Negative POCT U PROT (test code = 3259) trace Negative - Negative POCT U GLU (test code = 3256) neg Negative - Negative POCT U KETONE (test code = 3258) . Negative - Negative POCT U UROBILI (test code = . 0.2-1 3260) POCT U BILI (test code = 3261) . Negative - Negative POCT U BLD (test code = 3257) . Negative - Negative POCT U COLOR (test code = 3266) POCT U APPEAR (test code = 3267) Lab Interpretation (test code = Abnormal 11362-3) [facility] URINALYSIS W SPECIFIC [id number] 18:56:00 Test Item Value Reference Range Interpretation Comments POCT U SP GRAV (test code = 3255) . 1.005-1.025 POCT PH U (test code = 3254) . 5-8 POCT U LEUK EST (test code = 3263) . Negative - Negative POCT U NIT (test code = 3262) . Negative - Negative POCT U PROT (test code = 3259) Trace Negative - Negative POCT U GLU (test code = 3256) Neg Negative - Negative POCT U KETONE (test code = 3258) . Negative - Negative POCT U UROBILI (test code = 3260) . 0.2-1 POCT U BILI (test code = 3261) . Negative - Negative POCT U BLD (test code = 3257) . Negative - Negative POCT U COLOR (test code = 3266) POCT U APPEAR (test code = 3267) [facility] URINALYSIS W SPECIFIC [id number] 13:26:00 Test Item Value Reference Range Interpretation Comments POCT U SP GRAV (test code = 3255) . 1.005-1.025 POCT PH U (test code = 3254) . 5-8 POCT U LEUK EST (test code = 3263) . Negative - Negative POCT U NIT (test code = 3262) . Negative - Negative POCT U PROT (test code = 3259) Trace Negative - Negative POCT U GLU (test code = 3256) Neg Negative - Negative POCT U KETONE (test code = 3258) . Negative - Negative POCT U UROBILI (test code = 3260) . 0.2-1 POCT U BILI (test code = 3261) . Negative - Negative POCT U BLD (test code = 3257) . Negative - Negative POCT U COLOR (test code = 3266) POCT U APPEAR (test code = 3267) [facility] URINALYSIS W SPECIFIC [id number] 13:26:00 Test Item Value Reference Range Interpretation Comments POCT U SP GRAV (test code = 3255) . 1.005-1.025 POCT PH U (test code = 3254) . 5-8 POCT U LEUK EST (test code = 3263) . Negative - Negative POCT U NIT (test code = 3262) . Negative - Negative POCT U PROT (test code = 3259) Trace Negative - Negative POCT U GLU (test code = 3256) Neg Negative - Negative POCT U KETONE (test code = 3258) . Negative - Negative POCT U UROBILI (test code = 3260) . 0.2-1 POCT U BILI (test code = 3261) . Negative - Negative POCT U BLD (test code = 3257) . Negative - Negative POCT U COLOR (test code = 3266) POCT U APPEAR (test code = 3267) [facility] URINALYSIS W SPECIFIC [id number] 13:26:00 Test Item Value Reference Range Interpretation Comments POCT U SP GRAV (test code = 3255) . 1.005-1.025 POCT PH U (test code = 3254) . 5-8 POCT U LEUK EST (test code = 3263) . Negative - Negative POCT U NIT (test code = 3262) . Negative - Negative POCT U PROT (test code = 3259) Trace Negative - Negative POCT U GLU (test code = 3256) Neg Negative - Negative POCT U KETONE (test code = 3258) . Negative - Negative POCT U UROBILI (test code = 3260) . 0.2-1 POCT U BILI (test code = 3261) . Negative - Negative POCT U BLD (test code = 3257) . Negative - Negative POCT U COLOR (test code = 3266) POCT U APPEAR (test code = 3267) [facility] URINALYSIS W SPECIFIC [id number] 13:26:00 Test Item Value Reference Range Interpretation Comments POCT U SP GRAV (test code = 3255) . 1.005-1.025 POCT PH U (test code = 3254) . 5-8 POCT U LEUK EST (test code = 3263) . Negative - Negative POCT U NIT (test code = 3262) . Negative - Negative POCT U PROT (test code = 3259) Trace Negative - Negative POCT U GLU (test code = 3256) Neg Negative - Negative POCT U KETONE (test code = 3258) . Negative - Negative POCT U UROBILI (test code = 3260) . 0.2-1 POCT U BILI (test code = 3261) . Negative - Negative POCT U BLD (test code = 3257) . Negative - Negative POCT U COLOR (test code = 3266) POCT U APPEAR (test code = 3267) [facility]. METABOLIC PANEL (37390)2019-10-18 22:55:00 Test Item Value Reference Range Interpretation Comments NA (test code = 137 mmol/L 135-145 5874952587) K (test code = 3.4 mmol/L 3.5-5 L 9170376360) CL (test code = 106 mmol/L 98-108 2466938017) CO2 TOTAL (test code = 22 mmol/L 23-31 L 3908945482) AGAP (test code = 2-16 5951345113) BUN (test code = 6 mg/dL 7-23 L 9541959748) GLUCOSE (test code = 91 mg/dL 70-110 2936594869) CREATININE (test code = 0.41 mg/dL 0.5-1.04 L 7480392892) TOTAL BILI (test code = 0.3 mg/dL 0.1-1.6 7976238826) CALCIUM (test code = 9.4 mg/dL 8.6-10.6 1706406541) T PROTEIN (test code = 7.3 g/dL 6.3-8.2 9488163915) ALBUMIN (test code = 3.9 g/dL 3.5-5 7144649138) ALK PHOS (test code = 57 U/L 34-122 2205681572) ALTv (test code = 18 U/L 5-35 1742-6) AST(SGOT) (test code = 21 U/L 13-40 0865237259) eGFR Calculation mL/min/1.73m2 (Non-) (test code = 2440123467) eGFR Calculation mL/min/1.73m2 () (test code = 1893541984) MILLIE (test code = MILLIE) Association of Glomerular Filtration Rate (GFR) and Staging of Kidney Disease* + --+ --+ ------+| GFR (mL/min/1.73 m2) ?| With Kidney Damage ?| ?Without Kidney Damage+ --------+ --------+ +| ?>90 ?| ?Stage one ?| ? Normal ?+ ---+ ---+ -------+| ?60-89 ?| ?Stage two ?| ? Decreased GFR ? + --+ --+ ------+| ?30-59 ?| ?Stage three ?| ? Stage three ? + --+ --+ ------+| ?15-29 ?| ?Stage four ? | ? Stage four ?+ ---+ ---+ -------+| ?<15 (or dialysis) ? ?| ?Stage five ? | ? Stage five ?+ ---+ ---+ -------+ *Each stage assumes the associated GFR level has been in effect for at least three months. ?Stages 1 to 5, with or without kidney disease, indicate chronic kidney disease. Notes: Determination of stages one and two (with eGFR >59mL/min/1.73 m2) requires estimation of kidney damage for at least three months as defined by structural or functional abnormalities of the kidney, manifested by either:Pathological abnormalities or Markers of kidney damage (including abnormalities in the composition of the blood or urine or abnormalities in imaging tests). Lab Interpretation Abnormal (test code = 65237-0) [facility] Test Item Value Reference Range Interpretation Comments LIPASE (test code = 5341811734) 86 U/L 0-220 Lab Interpretation (test code = Normal 03917-8) [facility] Test Item Value Reference Range Interpretation Comments HERBERT (test code = 4083253228) 89 U/L 35-110 Lab Interpretation (test code = Normal 03836-3) [facility] WITH [id number] 21:41:00 Test Item Value Reference Range Interpretation Comments WBC (test code = See_Comment H [Automated 9427-2) message] The system which generated this result transmit sejal reference range : 4.30 - 11.10 10*3/?L. The reference range was not used to interpret this result as normal/abnormal . RBC (test code = See_Comment L [Automated 747-8) message] The system which generated this result transmit sejal reference range : 3.93 - 5.25 10*6/?L. The reference range was not used to interpret this result as normal/abnormal . HGB (test code = 10.6 g/dL 11.6-15 L 718-7) HCT (test code = 32.7 % 35.7-45.2 L 4544-3) MCV (test code = 91.3 fL 80.6-95.5 787-2) MCH (test code = 29.6 pg 25.9-32.8 785-6) MCHC (test code = 32.4 g/dL 31.6-35.1 786-4) RDW-SD (test code = 42.1 fL 39-49.9 56767-1) RDW-CV (test code = 12.7 % 12-15.5 788-0) PLT (test code = See_Comment H [Automated 777-3) message] The system which generated this result transmit sejal reference range : 166 - 358 10*3/ ?L. The reference range was not u sed to interpret th is result as normal/abnormal . MPV (test code = 10.8 fL 9.5-12.9 75454-3) NRBC/100 WBC (test See_Comment [Automat ed code = 0865779425) message] The system which generated this result transmit sejal reference range : 0.0 - 10.0 /100 WBCs. The reference range was not used to interpret this result as normal/abnormal . NRBC x10^3 (test code <0.01 See_Comment [Auto mated = 4983782367) message] The system which generated this result transmit sejal reference range : 10*3/?L. The reference range was not used to interpret this result as normal/abnormal . GRAN MAT (NEUT) % 74.4 % (test code = 770-8) IMM GRAN % (test code 0.50 % = 1760025749) LYMPH % (test code = 16.3 % 736-9) MONO % (test code = 8.0 % 5905-5) EOS % (test code = 0.7 % 713-8) BASO % (test code = 0.1 % 706-2) GRAN MAT x10^3(ANC) 10.20 10*3/uL 1.88-7.09 H (test code = 1166286119) IMM GRAN x10^3 (test 0.07 10*3/uL 0-0.06 H code = 3992739633) LYMPH x10^3 (test code 2.23 10*3/uL 1.32-3.29 = 731-0) MONO x10^3 (test code 1.10 10*3/uL 0.33-0.92 H = 742-7) EOS x10^3 (test code = 0.09 10*3/uL 0.03-0.39 711-2) BASO x10^3 (test code <0.03 0.01-0.07 = 704-7) Lab Interpretation Abnormal (test code = 62800-1) [facility] URINALYSIS W SPECIFIC [id number] 20:05:00 Test Item Value Reference Range Interpretation Comments POCT U SP GRAV (test code = 3255) . 1.005-1.025 POCT PH U (test code = 3254) . 5-8 POCT U LEUK EST (test code = 3263) . Negative - Negative POCT U NIT (test code = 3262) . Negative - Negative POCT U PROT (test code = 3259) Trace Negative - Negative POCT U GLU (test code = 3256) Neg Negative - Negative POCT U KETONE (test code = 3258) . Negative - Negative POCT U UROBILI (test code = 3260) . 0.2-1 POCT U BILI (test code = 3261) . Negative - Negative POCT U BLD (test code = 3257) . Negative - Negative POCT U COLOR (test code = 3266) POCT U APPEAR (test code = 3267) [facility] URINALYSIS W SPECIFIC [id number] 20:10:00 Test Item Value Reference Range Interpretation Comments POCT U SP GRAV (test code = 3255) . 1.005-1.025 POCT PH U (test code = 3254) . 5-8 POCT U LEUK EST (test code = 3263) . Negative - Negative POCT U NIT (test code = 3262) . Negative - Negative POCT U PROT (test code = 3259) Trace Negative - Negative POCT U GLU (test code = 3256) Neg Negative - Negative POCT U KETONE (test code = 3258) . Negative - Negative POCT U UROBILI (test code = 3260) . 0.2-1 POCT U BILI (test code = 3261) . Negative - Negative POCT U BLD (test code = 3257) . Negative - Negative POCT U COLOR (test code = 3266) POCT U APPEAR (test code = 3267) [facility] [id number] 20:10:00 Test Item Value Reference Range Interpretation Comments POCT U SP GRAV (test code = 3255) . 1.005-1.025 POCT PH U (test code = 3254) . 5-8 POCT U LEUK EST (test code = 3263) . Negative - Negative POCT U NIT (test code = 3262) . Negative - Negative POCT U PROT (test code = 3259) Trace Negative - Negative POCT U GLU (test code = 3256) Neg Negative - Negative POCT U KETONE (test code = 3258) . Negative - Negative POCT U UROBILI (test code = 3260) . 0.2-1 POCT U BILI (test code = 3261) . Negative - Negative POCT U BLD (test code = 3257) . Negative - Negative POCT U COLOR (test code = 3266) POCT U APPEAR (test code = 3267) [facility] TRISOM[facility] [id number] 17:58:00 Test Item Value Reference Range Interpretation Comments CRL (test code = 75.7 mm 6954227846) GEST. AGE (test code = 13,3 7634286384) INS. DEP (test code = No 9580552758) MULT GEST (test code = No 6851415480) NT (test code = 1.80 mm 8634357772) NTD HX (test code = No 2231961506) RACE (test code = Black 7067817284) SAP BASIS ARCHITECT (test code = 9116191023) BHCG MoM (test code = 8448157785) CRL GEST (test code = 13 wee ks 1 day, 3584139742) from CRL of 75. 7 mm on 08/07/19 EQ AGE RSK (test code = < 15.0 less than that of 3333308305) a 15.0 year old DS APR (test code = 1:1110 5788041390) DS INTERP (test code = See Note The r isk of Down 9457621987) syndrome is LES S than the screen ing cut-off. DS RSK (test code = < 1:00731 The risk at sample 6765471390) time is less th an 1:69720 DS SCRN (test code = Negative 5733272796) TRISOMY 18 (test code = See Note The risk of 7352109092) trisomy 18 is l ess than the screen ing cut-off. ES RSK (test code = 1:2940 The risk of 4382006251) Trisomy 18 is equal to 1:2940 The Trisomy 18 cut- off is 1:153 ES SCRN (test code = Negative 7056557782) NT MoM (test code = 7620933302) BHCG DOWNS (test code = 0792673826) INTERPRETATION (test N INTERPR ETATION: code = 6595198822) SCREEN NEGATIVE Down Syndrome and Trisomy 18 JERI-A (test code = 695.6 ng/mL 2398836341) JERI-A MoM (test code = 5356459284) US DATE (test code = 3922520125) WEIGHT (test code = lbs 0484415466) SMOKER (test code = No 5101945813) [facility]"
[2021-07-26 14:36] LABS: SARS-COV-2 RT PCR POSITIVE (NEGATIVE)
--- NOTE | 2021-07-26 14:43 | EDPHYS ---
Physician Documentation [facility] Name: Urvashi Molina Age: 21 yrs Sex: Female : 2000 Arrival Date: 07/26/2021 Time: 12:49 Bed Waiting Private MD: ED Physician Sadi Gay HPI: 07/26 15:32 This 21 yrs old Female presents to ER via Ambulatory with complaints of Fever, kb Headache. 15:33 The patient or guardian reports cough. Onset: The symptoms/episode began/occurred 5 kb day(s) ago. Severity of symptoms: At their worst the symptoms were mild, moderate, in the emergency department the symptoms are unchanged. Modifying factors: The symptoms are alleviated by nothing, the symptoms are aggravated by nothing. Associated signs and symptoms: Pertinent positives: diarrhea, fever, nausea, vomiting, Pertinent negatives: chest pain, ear ache, rhinorrhea, sore throat. The patient has not experienced similar symptoms in the past. The patient has not recently seen a physician. Pt reports headache, bodyaches, fatigue, fever, n/v/d and cough that started 5 days ago. Took a home covid test yesterday and it was positive so she wanted to come in to confirm that she had covid. Also brought her kids in to be tested because they are sick as well. Historical: - Allergies: 13:08 NKA; ss - PMHx: 13:08 Anxiety; high heart rate; ss - Immunization history:: Client reports having NOT received the Covid vaccine. - Social history:: Smoking status: Patient denies any tobacco usage or history of. ROS: 15:35 ENT: Negative for injury, pain, and discharge. kb 15:35 Constitutional: Positive for body aches, fatigue, fever, malaise. 15:35 Respiratory: Positive for cough, Negative for dyspnea on exertion, hemoptysis, orthopnea, pleurisy, shortness of breath, sputum production, wheezing. 15:35 Abdomen/GI: Positive for nausea, vomiting, and diarrhea, Negative for abdominal pain. 15:35 Neuro: Positive for headache. 15:35 All other systems are negative. Exam: 15:35 Constitutional: This is a well developed, well nourished patient who is awake, alert, kb and in no acute distress. Head/Face: Normocephalic, atraumatic. ENT: Moist Mucous membranes Cardiovascular: Regular rate and rhythm with a normal S1 and S2. No gallops, murmurs, or rubs. No pulse deficits. Respiratory: Respirations even and unlabored. No increased work of breathing. Talking in full sentences Skin: Warm, dry with normal turgor. Normal color. MS/ Extremity: Pulses equal, no cyanosis. Neurovascular intact. Full, normal range of motion. Neuro: Awake and alert, GCS 15, oriented to person, place, time, and situation. Moves all extremities. Normal gait. Psych: Awake, alert, with orientation to person, place and time. Behavior, mood, and affect are within normal limits. Vital Signs: 13:07 Resp 16; Weight 95.25 kg; Height 5 ft. 7 in. (170.18 cm); ss 13:17 BP 121 / 71; ss 13:39 Pulse 110; Pulse Ox 100% on R/A; ss 13:07 Body Mass Index 32.89 (95.25 kg, 170.18 cm) ss MDM: 13:10 Patient medically screened. kb 15:44 Data reviewed: vital signs, nurses notes. Data interpreted: Pulse oximetry: on room air kb is 100 %. Interpretation: normal. Counseling: I had a detailed discussion with the patient and/or guardian regarding: the historical points, exam findings, and any diagnostic results supporting the discharge/admit diagnosis, lab results, the need for outpatient follow up, a family practitioner, to return to the emergency department if symptoms worsen or persist or if there are any questions or concerns that arise at home. 07/26 13:11 Order name: COVID-19/FLU A+B (Document "Date of Onset" if Symptomatic) 07/26 13:12 Order name: COVID-19/FLU A+B; Complete Time: 14:41 EDMS Administered Medications: No medications were administered Disposition: 16:48 Co-signature as Attending Physician, Sadi Gay MD. rn Disposition Summary: 07/26/21 14:43 Discharge Ordered Location: Home Condition: Stable kb Diagnosis - Coronavirus infection, unspecified kb Followup: kb - With: Emergency Department - When: As needed - Reason: Worsening of condition Followup: kb - With: Private Physician - When: 2 - 3 days - Reason: Recheck today's complaints, Continuance of care, Re-evaluation by your physician Discharge Instructions: - Discharge Summary Sheet kb - Viral Respiratory Infection, [id number] kb - COVID-19 kb Forms: - Medication Reconciliation Form kb - Thank You Letter kb - Antibiotic Education kb - Prescription Opioid Use kb Signatures: Dispatcher [employer] Ines Sun, BAOC Sadi Baig MD MD rn Smirch, Shelby, RN RN ss
--- NOTE | 2021-07-26 14:43 | ER ---
Nurse's Notes [facility] Name: Urvashi Molina Age: 21 yrs Sex: Female : 2000 Arrival Date: 07/26/2021 Time: 12:49 Bed Waiting Private MD: Diagnosis: Coronavirus infection, unspecified Presentation: 07/26 13:07 Chief complaint: Parent and/or Guardian states: fever, headache and body aches that ss began last night. + COVID test at home yesterday. Pt wants to make sure that her home test was accurate. Coronavirus screen: Client presents with at least one sign or symptom that may indicate coronavirus-19. Standard/surgical mask placed on the client. Ebola Screen: Patient denies exposure to infectious person. Patient denies travel to an Ebola-affected area in the 21 days before illness onset. Initial Sepsis Screen: Does the patient meet any 2 criteria? No. Patient's initial sepsis screen is negative. Does the patient have a suspected source of infection? No. Patient's initial sepsis screen is negative. Risk Assessment: Do you want to hurt yourself or someone else? Patient reports no desire to harm self or others. Onset of symptoms was July 22, 2021. 13:07 Method Of Arrival: Ambulatory ss 13:07 Acuity: DELVIS 4 ss Historical: - Allergies: 13:08 NKA; ss - PMHx: 13:08 Anxiety; high heart rate; ss - Immunization history:: Client reports having NOT received the Covid vaccine. - Social history:: Smoking status: Patient denies any tobacco usage or history of. Screenin:39 Abuse screen: Denies threats or abuse. Denies injuries from another. Nutritional ss screening: No deficits noted. Tuberculosis screening: Never had TB. Fall Risk None identified. Assessment: 13:39 General: Appears in no apparent distress. comfortable, Behavior is calm, cooperative, ss Reports chills for fever for feeling ill for fatigue for >3 days. Pain: Complains of pain in generalized body aches. Neuro: Level of Consciousness is awake, alert, obeys commands, Oriented to person, place, time, situation, [employer] are equal bilaterally. Cardiovascular: Capillary refill < 3 seconds is brisk in bilateral fingers. Respiratory: Airway is patent Trachea midline Respiratory effort is even, unlabored, Respiratory pattern is regular, symmetrical. GI: Patient currently denies diarrhea, vomiting. EENT: Throat is clear. Derm: Skin is intact, is healthy with good turgor, Skin is dry, Skin is pink, warm \T\ dry. normal. Musculoskeletal: Circulation, motion, and sensation intact. Range of motion: intact in all extremities, Swelling absent. 14:51 Reassessment: Patient appears in no apparent distress at this time. Patient is ss alert/active/playful, equal unlabored respirations, skin warm/dry/pink. Vital Signs: 13:07 Resp 16; Weight 95.25 kg; Height 5 ft. 7 in. (170.18 cm); ss 13:17 BP 121 / 71; ss 13:39 Pulse 110; Pulse Ox 100% on R/A; ss 13:07 Body Mass Index 32.89 (95.25 kg, 170.18 cm) ED Course: 12:49 Patient arrived in ED. ds1 13:08 Triage completed. ss 13:08 Arm band placed on right wrist. ss 13:09 Ines Jaimes [facility]-C [facility]. kb 13:09 Sadi Gay MD is Attending Physician. kb 13:39 Patient has correct armband on for positive identification. ss 14:51 Vidhi Vee, LINDSEY is Primary Nurse. ss 14:51 No provider procedures requiring assistance completed. Patient did not have IV access ss during this emergency room visit. Administered Medications: No medications were administered Outcome: 14:43 Discharge ordered by . kb 14:51 Discharged to home ambulatory. ss 14:51 Condition: good 14:51 Discharge instructions given to patient, Instructed on discharge instructions, follow up and referral plans. Demonstrated understanding of instructions, follow-up care. 14:51 Patient left the ED. ss Signatures: Ines Jaimes FNP-C FNP-Sanaz Gonzalez ds1 Vidhi Vee, LINDSEY RN
[2021-07-26 15:38] VITALS: O2SAT 100
== END 2021-07-26 14:51 | disposition home or self-care (01) ==
LOC: ER 12:43
DX: U07.1 COVID-19 (principal)
CPT/HCPCS: 0240U; 99281

== ENCOUNTER 2021-12-23 20:15 | Emergency (ER) | payer OTHER ==
--- OUTSIDE RECORDS SUMMARY | 2021-12-23 20:18 | XMS REPORT | Continuity of Care Document ---
:2000 Author Organization [facility] t Address [address] [place] [address] Care Team Providers Name Role Phone Phu MARES Primary Care Physician Unavailable EBRAHIMichelle Attending Clinician Unavailable Deborah SUBSTATION INSPECTOR Attending Clinician Unknown Attending Clinician Unavailable Victor M MI R Attending Clinician Susie LAROSE C Attending Clinician 2, [facility] Room Attending Clinician Unavailable Gretchen Chavez MD Attending Clinician [facility]ending Clinician Unavailable Lab Attending Clinician Unavailable 1, [facility] Room Attending Clinician Unavailable Amarjit ROJASP Attending Clinician John PORTILLO G Attending Clinician Unavailable Payers Payer Name Policy Type Policy Number Effective Date Expiration Date [facility] [id number] 2019 CHOICE MEDICAID 00:00:00 Problems Condition Condition Condition Status Onset Resolution Last Treating Co mments Source Name Details Category Date Date Treatment Clinician Date Disease Active Uni vers examinatio examinatio 12-08 it y of n or test, [place] 00 Medica l result result Branch SAB SAB Disease Active 2022-0 Univers (spontaneo (spontaneo 5-02 it y of us us 00:00: [place] ) ) 00 [facility] Susceptibl Susceptibl Disease Active 2019-08 Overview : Univers e to e to 0-21 Formattin ity of varicella varicella 00:00: g of this [place] (non-immun (non-immun 00 note Me dical e), e), might be Branch currently currently different from the original. Address pp Supervisio Supervisio Disease Active 2019-08 U nivers n of n of 0-20 ity of high-risk [place] 00 [facility] Multiparit Multiparit Disease Active 2019-08 U nivers y y 0-20 ity of 00:00: [place] 00 Medical Branch Short Short Disease Active 2019-08 Univers interval interval 0-20 ity of between between 00:00: [place] pregnancie pregnancie 00 Me dical s s Branch affecting affecting , , antepartum antepartum History of History of Disease Active 2019-08 U nivers gestationa gestationa 0-20 it y of l l 00:00: [place] hypertensi hypertensi 00 Me dical on on Branch Anxiety Anxiety Disease Active 2019-08 Univers 0-20 ity of 00:00: [place] 00 Medical Branch Obesity in Obesity in Disease Active 2020-0 U nivers 2-01 ity of 00:00: [place] 00 [facility] Branch Allergies, Adverse Reactions, Alerts Allergy Allergy Status Severity Reaction(s) Onset Inactive Treating Comm ents Source Name Type Date Date Clinician NO KNOWN Drug Active Univers ALLERGIE Class ity of S [facility] Social History Social Habit Start Date Stop Date Quantity Comments Source Exposure to 2021-12-02 2021-12-12 Not sure [facility] SARS-CoV-2 (event) 00:00:00 18:17:00 Medica l Branch Alcohol intake 2021-12-08 2021-12-08 0 /d [facility] 00:00:00 00:00:00 Medical Branch Sex Ass[birth year] At [birth year] [facility] 00:00:00 00:00:00 Medical Branch Smoking Status Start Date Stop Date Source Never smoker [facility] xa Medical Branch Medications Ordered Filled Start Stop Current Ordering Indication Dosage Frequency Signature Comments Components Source Medication Medication Date Date Medication? Clinician (SIG) Name Name fluconazole Yes [id number] Take one Univers (DIFLUCAN) 5-06 pill now ity o f 150 mg 00:00: and repeat [place] tablet 00 in 3 days Medical if needed Branch Nitrofurant 2021- Yes [id number] 100mg Take 1 Univers oin&Nit. 5-06 05-14 capsule by ity of [place] 00:00: 04:59 mouth 2 Tony as (MACROBID) 00 :00 (two) Medical 100 mg times Branch capsule daily for 7 days. Yes [id number] 1{tbl} Take 1 U nivers multivitami 3-15 tablet by ity of n ( 00:00: mouth [place] VITAMIN) 00 daily. Medical tablet Branch Yes [id number] 1{tbl} Take 1 U nivers multivitami 3-15 tablet by ity of n ( 00:00: mouth [place] VITAMIN) 00 daily. Medical tablet Branch Yes [id number] 1{tbl} Take 1 U nivers vitamin 6-05 tablet by ity of w/FA tablet 00:00: mouth [place] 00 daily. Medical Branch Yes [id number] 1{tbl} Take 1 U nivers vitamin 6-05 tablet by ity of w/FA tablet 00:00: mouth [place] 00 daily. [facility] Immunizations Ordered Filled Immunization Date Status Comments [facility] e Immunization Name Name TDAP 2020-11-08 Completed University of 00:00:00 [facility] TDAP 2020-11-08 Completed University of 00:00:00 [facility] TDAP 2019-11-21 Completed University of 00:00:00 [facility] TDAP 2019-11-21 Completed University of 00:00:00 [facility] TDAP 2013-03-13 Completed University of 00:00:00 [facility] TDAP 2013-03-13 Completed University of 00:00:00 [facility] Vital Signs Vital Name Observation Time Observation Value Comments Source Systolic blood 2021-12-12 23:30:00 123 mm[Hg] Univer sity of pressure [facility] Diastolic blood 2021-12-12 23:30:00 83 mm[Hg] Unive rsity of pressure [facility] Heart rate 2021-12-12 23:30:00 91 /min Universi ty of [facility] Body temperature 2021-12-12 23:30:00 36.72 [facility] ersity of [facility] Respiratory rate 2021-12-12 23:30:00 18 /min Univ ersity of [facility] Body height 2021-12-12 23:30:00 170.2 cm Universi ty of [facility] Body weight 2021-12-12 23:30:00 96.707 kg Universi ty of [facility] BMI 2021-12-12 23:30:00 33.39 kg/m2 Universi ty of [facility] Oxygen saturation in 2021-12-12 23:30:00 100 /min [facility] Arterial blood by [facility] Pulse oximetry Branch Systolic blood 2021-12-08 22:54:00 123 mm[Hg] Univer sity of pressure [facility] Diastolic blood 2021-12-08 22:54:00 77 mm[Hg] Unive [facility] Heart rate 2021-12-08 22:54:00 76 /min Universi ty of [facility] Body temperature 2021-12-08 22:54:00 36.17 [facility] Respiratory rate 2021-12-08 22:54:00 16 /min [facility] Body height 2021-12-08 22:54:00 170.2 cm Universi ty of [facility] Body weight 2021-12-08 22:54:00 96.525 kg Universi ty of [facility] BMI 2021-12-08 22:54:00 33.33 kg/m2 Universi ty [facility] Procedures Procedure Date / Time Performed Performing Clinician Flor e POCT URINALYSIS 2021-12-12 00:00:00 Alka Cabrera [place] [facility] POCT TEST 2021-12-12 00:00:00 Alka Cabrera [facility] TOTAL BETA HCG ASSAY 2021-12-08 23:12:00 [facility] POCT TEST 2021-12-08 22:56:00 [facility] Encounters Start End Encounter Admission Attending Care Care Encounter Source Date/Time Date/Time Type Type Clinicians Facility Department ID 2021-12-12 2021-12-12 Outpatient R TJMichelle [facility] [id number] Univers 18:00:00 18:48:04 ALKA [facility] 2021-12-12 2021-12-12 Urgent Alka Cabrera [facility] [id number] Univers 18:00:00 18:20:00 Care Unknown, Attending HEALTH [id number] [facility] [id number] Tony as MADELAINE?BLEA [id number] [address] MEDICAL OFFICE BUILDING 2021-12-12 2021-12-12 Outpatient R [facility] [id number] Univers 18:00:00 18:00:00 [id number] [facility] 2021-12-12 2021-12-12 Outpatient R TJMichelle [facility] [id number] Univers 11:20:00 11:20:00 [facility] 2021-12-08 2021-12-08 Office [facility] [id number] Univers 17:45:00 18:20:03 Visit Nicakirk R [id number].7[facility]2.[facility] Tony as MATERNAL [id number] Med ical & CHILD [address] [place] [address] 2020-09-20 2020-09-20 Routine Tankradha [facility] [id number] 14:50:44 15:12:59 Lizzie C DIRECTOR FAMILY [id number] Visit [facility] [id number] MATERNAL [id number] & CHILD [address] [facility] 2020-09-09 2020-09-09 Abstract Susie [facility] [id number] 00:00:00 00:00:00 Lizzie C DIRECTOR FAMILY [id number] REGIONAL 4.2.7.2.686 MATERNAL [id number] & CHILD [address] [facility] 2020-09-05 2020-09-05 Cementer Machine Joiner 2, [facility] UNIVERSIT 1.2.840.11 [id number] 13:33:01 15:36:46 [facility] Room Y HEALTH [id number] CLINICS 4.2.7.2.686 [id number] 2020-09-05 2020-09-05 Letter [facility] [id number] 00:00:00 00:00:00 (Out) [facility] [id number] s, [place] CLINICS 4.2.7.2.686 [id number] 2020-08-23 2020-08-23 Routine Akinsipe, [facility] [id number] 14:04:04 15:06:18 Lizzie C DIRECTOR FAMILY [id number] Visit [facility] 4.2.7.2.686 MATERNAL [id number] & CHILD [address] [facility] 2020-07-29 2020-07-29 Telemedici Faculty, [facility] 1.2.840.114 [id number] 08:08:23 08:53:23 [facility] [id number] [facility] REGIONAL 4.2.7.2.686 MATERNAL [id number] & CHILD [address] [facility] 2020-07-26 2020-07-26 Routine Akinsipe, [facility] [id number] 14:10:32 14:29:49 Lizzie C DIRECTOR FAMILY [id number] Visit REGIONAL 4.2.7.2.686 MATERNAL [id number] & CHILD 107 [facility] 2020-07-19 2020-07-19 Abstract Akinsipe, [facility] 1.2.840.114 [id number] 00:00:00 00:00:00 Lizzie C DIRECTOR FAMILY [id number] REGIONAL 4.2.7.2.686 MATERNAL [id number] & CHILD 107 [facility] 2020-07-18 2020-07-18 [employer] Lab, [facility] 1.2.840.114 [id number] 13:50:07 14:09:23 Visit [facility] HEALTH [id number] CLINICS 4.2.7.2.686 [id number] 2020-07-18 2020-07-18 Cementer Machine Joiner 1, [facility] UNIVERSIT 1.2.840.11 [id number] 12:59:10 13:43:54 Visit [facility] Room Y HEALTH 350.1.13.10 CLINICS 4.2.7.2.686 [id number] 2020-07-18 2020-07-18 Letter Godinez [facility] [id number] 00:00:00 00:00:00 (Out) Koutrouveli HEALTH 350.1.13.10 s, [place] CLINICS 4.2.7.2.686 [id number] 2020-07-18 2020-07-18 [facility] [id number] 00:00:00 00:00:00 Management Aleyda Y HEALTH 350.1.13.10 CLINICS 4.2.7.2.686 [id number] 2020-07-15 2020-07-15 [facility] 1.2.840.114 [id number] 08:10:49 16:33:08 ne Visit [facility] DIRECTOR FAMILY 350.1.13.10 [facility] 4.2.7.2.686 MATERNAL [id number] & CHILD 107 [facility] 2020-07-14 2020-07-14 Nurse Shubham SAVAGE 1.2.840.114 [id number] 00:00:00 00:00:00 Triage dJayde 350.1.13.10 [facility] 4.2.7.2.686 [id number] 2020-07-01 2020-07-01 Abstract Susie, [facility] 1.2.840.114 [id number] 00:00:00 00:00:00 Lizzie Bay DIRECTOR FAMILY 350.1.13.10 [facility] 4.2.7.2.686 MATERNAL [id number] & CHILD 107 [facility] 2020-06-28 2020-06-28 Cementer Machine Joiner 1, [facility] 1.2.840.11 [id number] 12:40:24 13:25:24 Visit [facility] 350.1.13.10 [facility] 4.2.7.2.686 [id number] 2020-06-27 2020-06-27 Routine Akinsipe, [facility] [id number] 13:00:22 13:39:22 Lizzie C DIRECTOR FAMILY 350.1.13.10 Visit [facility] 4.2.7.2.686 MATERNAL [id number] & CHILD 107 [facility] 2020-06-17 2020-06-17 Routine Faculty, [facility] 1.2.840.114 [id number] 10:47:26 11:48:07 Ang Rmchp DIRECTOR FAMILY 350.1.13.10 Visit [facility] 4.2.7.2.686 MATERNAL [id number] & CHILD 107 [facility] Results Test Description Test Time Test Comments Results Result Comments Source POCT TEST 2021-12-12 23:44:00 Test Item Value Reference Range Interpretation Comme nts POCT PREG (test code = 1605) Negative On board controls acceptable with C Yes Line (test code = 3574) POCT PREG LOT # (test code = 3575) POCT PREG TEST DATE (test code = 3576) MILLIE (test code = MILLIE) accurate development and interpretation of all internal controls [facility] W SPECIFIC [id number] 23:35:00 Test Item Value Reference Range Interpretation Comments POCT U SP GRAV 1.025 mg/dl 1.005-1.025 (test code = 3255) POCT PH U (test 6.0 mg/dl 5-8 code = 3254) POCT U LEUK EST trace Negative - Negative (test code = 3263) POCT U NIT (test positive Negative - Negative code = 3262) POCT U PROT (test negative Negative - Negative code = 3259) POCT U GLU (test normal Negative - Negative code = 3256) POCT U KETONE negative Negative - Negative (test code = 3258) POCT U UROBILI normal 0.2-1 (test code = 3260) POCT U BILI (test 2+ Negative - Negative code = 3261) POCT U BLD (test Negative - Negative code = 3257) POCT U COLOR (test yellow code = 3266) POCT U APPEAR cloudy (test code = 3267) MILLIE (test code = accurate development and MILLIE) interpretation of all internal controls [facility] HCG [id number] 05:40:08 Test Item Value Reference Range Interpretation Comments BETA HCG (test <2.39 See_Comment [Automated m essage] code = The system [email or web address] h [id number]) generated this result transmit sejal reference range : Non- fe male and male patien ts: <5 mIU/mL. The reference range was not used to interpret this result as normal/abnormal . MILLIE (test code Gestational Age ? ? = MILLIE) ?Range (mIU/mL) 1-10 ?Weeks ?[id number] Weeks ?[id number] Weeks ?[id number] Weeks ?[id number] Biotin has been reported to cause a negative bias, interpret results relative to patient's use of biotin. [facility] Center[facility] [id number] 22:56:00 Test Item Value Reference Range Interpretation Comments POCT PREG (test code = 1605) Negative On board controls acceptable with C Yes Line (test code = 3574) POCT PREG LOT # (test code = 3575) POCT PREG TEST DATE (test code = 3576) [facility]
--- NOTE | 2021-12-23 20:40 | ER ---
Nurse's Notes [facility] Name: Urvashi Molina Age: 21 yrs Sex: Female : 2000 Arrival Date: 12/23/2021 Time: 20:18 Bed Waiting Private MD: Diagnosis: ED Course: 12/23 20:18 Patient arrived in ED. sanjay Administered Medications: No medications were administered Outcome: 20:40 Patient left the ED. ld1 Signatures: Ursula Matta RN RN ld1 Kelly Madera
== END 2021-12-23 20:40 | disposition left against medical advice (07) ==
LOC: ER 20:15
DX: Z02.9 Encounter for administrative examinations, unspecified (principal)

== ENCOUNTER 2022-04-06 16:47 | Emergency (ER) | payer OTHER ==
--- OUTSIDE RECORDS SUMMARY | 2022-04-06 16:50 | XMS REPORT | Continuity of Care Document ---
:2000 Author Organization [facility] t Address [address] [place] [address] Care Team Providers Name Role Phone KADEN ADAME Primary Care Physician Unavailable CATALINA STRONG Attending Clinician Unavailable Sari Hu Attending Clinician Britney Florian Attending Clinician SARI BHATT Attending Clinician Unavailable Lizzie Hampton Attending Clinician [phone], [facility] Room Attending Clinician Unavailable Gretchen Chavez MD, [place] Attending Clinician [phone] Faculty, [facility] Attending Clinician Unavailable Lab, [facility] Attending Clinician Unavailable 1, [facility] Us Room Attending Clinician Unavailable Aleyda Gillespie Attending Clinician John PORTILLO, Jayde Witt Attending Clinician Unavailable Payers Payer Name Policy Type Policy Number Effective Date Expiration Date [facility] [id number] 2019 CHOICE MEDICAID 00:00:00 Problems Condition Condition Condition Status Onset Resolution Last Treating Co mments Source Name Details Category Date Date Treatment Clinician Date Disease Active Uni vers examinatio examinatio 12-08 it y of n or test[place] 00 Medica l result result Branch SAB SAB Disease Active Univers (spontaneo (spontaneo 12-08 it y of us us 00:00: [place] ) ) 00 [facility] Susceptibl Susceptibl Disease Active 2019-08 Overview : Univers e to e to 0-21 Formattin ity of varicella varicella 00:00: g of this [place] (non-immun (non-immun 00 note Me dical e), e), might be Branch currently currently different from the original. Address pp Supervisio Supervisio Disease Active 2019-08 U nivers n of n of 0-20 ity of high-risk high[place] [facility] Multiparit Multiparit Disease Active 2019-08 U nivers y y 0-20 ity of 00:00: [place] 00 Medical Branch Short Short Disease Active [...] Active 2019-08 Univers 0-20 ity of 00:00: [place] 00 Medical Branch Obesity in Obesity in Disease Active 2020-0 U nivers 2-01 ity of 00:00: [place] 00 Medical Branch Leukocytos Leukocyto Problem Active 2018-09-07 Memoria is, sis, 05:10:56 l unspecifie unspecifie He rmann d type d type Active Problem 09/07/2018 eCW: [facility] Lower Lower Diagnosis Active 2018-08-30 Mem oria abdominal abdominal 05:15:14 l pain pain [place] Active Diagnosis 08/30/2018 eCW: [facility] Encounter Encounter Diagnosis Active 2018-08-30 Memoria for for 05:15:14 l screening screening Herm christian Active Diagnosis 08/30/2018 eCW: [facility] Allergies, Adverse Reactions, Alerts Allergy Allergy Status Severity Reaction(s) Onset Inactive Treating Comm ents Source Name Type Date Date Clinician Amoxicil Propensi Active Rash Univer s glenna ty to 03-05 ity of adverse 00:00: [place] reaction 00 Medical s Branch AMOXICIL DRUG Active High Rash Univers GLENNA INGREDI 03-05 ity of 00:00: [place] 00 Medical Strong Social History Social Habit Start Date Stop Date Quantity Comments Source Alcohol intake 2022-03-06 2022-03-06 0 /d [facility] 00:00:00 00:00:[address] [facility] [place] Exposure to 2022-02-23 2022-03-05 Not sure [facility] SARS-CoV-2 00:00:00 09:01:00 [facility] (event) Strong Tobacco use and 2022-02-16 2022-02-16 Smokeless tobacco Un iversity of exposure 00:00:00 00:00:00 non-user [facility] [place] Sex Assigned At [birth year] Universit y of 00:00:00 00:00:[address] [facility] [place] Smoking Status Start Date Stop Date Source Never smoked tobacco [facility] Medications Ordered Filled Start Stop Current Ordering Indication Dosage Frequency Signature Comments Components Source Medication Medication Date Date Medication? Clinician (SIG) Name Name SERTraline Yes [id number] 50mg Take 1 Univers (ZOLOFT) 50 7-11 tablet by ity of mg tablet 00:00[place] the Medical morning. Branch busPIRone 2021- Yes [id number] 10mg Take 1 Univers 10 mg 7-11 08-11 tablet by ity of tablet 00:00: 04:59 mouth 2 [place] 00 :00 (two) Medical times Strong daily as needed (anxiety) for up to 30 days. methylPREDN Yes [id number] Take by Univers ISolone 6-10 mouth ity of (MEDROL, 00:00: SEE-INSTRU Tony as CHIKIS,) 4 mg 00 CTIONS. Medica l tablets follow Strong package directions fluconazole Yes [id number] Take one Univers (DIFLUCAN) 5-06 pill now ity o f 150 mg 00:00: and repeat [place] tablet 00 in 3 days Medical if needed Branch Yes [id number] 1{tbl} Take 1 U nivers multivitami 3-15 tablet by ity of n ( 00:00: mouth [place] VITAMIN) 00 daily. Medical tablet Branch 2020- Yes [id number] 1{tbl} Take 1 U nivers vitamin 6-05 tablet by ity of w/FA tablet 00:00: mouth [place] 00 daily. Medical Branch Cipro 2017-08 Yes Joseph 1 tab(s) Memoria 2-20 Vanderzyl l 00:00: [place] 00 Immunizations Ordered Filled Immunization Date Status Comments Sourc e Immunization Name Name TDAP 2020-11-08 Completed University 00:00:[address] [facility] TDAP 2019-11-21 Completed University 00:00:[address] [facility] TDAP 2013-03-13 Completed [facility] 00:00:[address] [facility] [place] Vital Signs Vital Name Observation Time Observation Value Comments Source Systolic blood 2022-03-06 19:08:00 120 mm[Hg] Univer sity [facility] Diastolic blood 2022-03-06 19:08:00 80 mm[Hg] [facility] Heart rate 2022-03-06 19:08:00 96 /min [facility] Body temperature 2022-03-06 19:08:00 36.89 Maria Dolores [facility] Respiratory rate 2022-03-06 19:08:00 18 /min [facility] Body height 2022-03-06 19:08:00 167.6 cm [facility] Body weight 2022-03-06 19:08:00 97.523 kg [facility] BMI 2022-03-06 19:08:00 34.70 kg/m2 [facility] Oxygen saturation in 2022-03-06 19:08:00 98 /min [facility] Arterial blood by [facility] Pulse oximetry Branch Systolic (mm Hg) 2018-07-22 19:45:00 Justyn bailey Arnel Height 2018-07-22 19:45:00 [facility] Weight 2018-07-22 19:45:00 [facility] Temperature Oral (F) 2018-07-22 19:45:00 96.0 F [facility] Diastolic (mm Hg) 2018-07-22 19:45:00 Mem orial Arnel Procedures Procedure Date / Time Performed Performing Clinician Sourc e POCT TEST 2022-03-06 19:13:00 Sari Bhatt [facility] Encounters Start End Encounter Admission Attending Care Care Encounter Source Date/Time Date/Time Type Type Clinicians Facility Department ID 2022-04-06 Outpatient [id number] Memoria 16:50:10 [id number] Arnel [id number] 2022-03-30 2022-03-30 Outpatient R LIGIA [facility] [id number] Univers 16:00:00 16:00:00 CATALINA [facility] 2022-03-06 2022-03-06 Urgent Sari Bhatt [facility] [id number] Univers 14:00:00 14:23:04 Care Britney Escudero [facility] [id number] [facility] 4.2.7.2.686 Tony as MADELAINE?BLEA [id number] [address] MEDICAL OFFICE BUILDING 2022-03-06 2022-03-06 Outpatient R MILLER [facility] [id number] Univers 14:00:00 14:23:04 SARI [facility] 2020-09-20 2020-09-20 [facility] [id number] 14:50:44 15:12:59 Lizzie C DEPENDENCY PROGRAM DIRECTOR [id number] Visit REGIONAL 4.2.7.2.686 MATERNAL [id number] & CHILD [facility] 2020-09-09 2020-09-09 Abstract [facility] 1.2.840.114 [id number] 00:00:00 00:00:00 Lizzie C DEPENDENCY PROGRAM DIRECTOR [id number] REGIONAL 4.2.7.2.686 MATERNAL [id number] & CHILD [facility] 2020-09-05 2020-09-05 Church History Professor 2, [facility] UNIVERSIT 1.2.840.11 [id number] 13:33:01 15:36:46 Visit [facility] Y HEALTH [id number] CLINICS 4.2.7.2.686 [id number] 2020-09-05 2020-09-05 Letter God[facility] [id number] 00:00:00 00:00:00 (Out) [facility] HE[facility] 350.1.13.10 s, Martin CLINICS 4.2.7.2.686 [id number] 2020-08-23 2020-08-23 Routine Akinsi, [facility] [id number] 14:04:04 15:06:18 Lizzie C DEPENDENCY PROGRAM DIRECTOR [id number] Visit [facility] 4.2.7.2.686 MATERNAL [id number] & CHILD [facility] 2020-07-29 2020-07-29 Telemedici Faculty, [facility] 1.2.840.114 [id number] 08:08:23 08:53:23 [facility]Y PROGRAM [facility]OR 350.1.13.10 [facility] REGIONAL 4.2.7.2.686 MATERNAL [id number] & CHILD [facility] 2020-07-26 2020-07-26 Routine [facility] [id number] 14:10:32 14:29:49 Lizzie C DEPENDENCY PROGRAM DIRECTOR [id number] Visit REGIONAL 4.2.7.2.686 MATERNAL [id number] & CHILD [facility] 2020-07-19 2020-07-19 Abstract [facility], [facility] 1.2.840.114 [id number] 00:00:00 00:00:00 Lizzie C DEPENDENCY PROGRAM DIRECTOR 350.1.13.10 REGIONAL 4.2.7.2.686 MATERNAL [id number] & CHILD [facility] 2020-07-18 2020-07-18 Church History Professor Lab[facility] 1.2.840.114 [id number] 13:50:07 14:09:23 Visit [facility] Y HEALTH 350.1.13.10 [facility] 4.2.7.2.686 [id number] 2020-07-18 2020-07-18 Church History Professor 1, [facility] UNIVERSIT 1.2.840.11 [id number] 12:59:10 13:43:54 Visit [facility] Room HEALTH 350.1.13.10 CLINICS 4.2.7.2.686 [id number] 2020-07-18 2020-07-18 Elliot Gretchen [facility] [id number] 00:00:00 00:00:00 (Out) [facility] 350.1.13.10 s, [place] CLINICS 4.2.7.2.686 [id number] 2020-07-18 2020-07-18 Case [facility] [id number] 00:00:00 00:00:00 Management [facility] HEALTH 350.1.13.10 [facility] 4.2.7.2.686 [id number] 2020-07-15 2020-07-15 Telemedici [facility] 1.2.840.114 [id number] 08:10:49 16:33:08 ne Visit Jonathan Garciachrandall DEPENDENCY PROGRAM DIRECTOR 350.1.13.10 [facility] 4.2.7.2.686 MATERNAL [id number] & CHILD [facility] 2020-07-14 2020-07-14 Nurse Shubham SAVAGE 1.2.840.114 [id number] 00:00:00 00:00:00 Triage Jayde boland 350.1.13.10 [facility] 4.2.7.2.686 [id number] 2020-07-01 2020-07-01 Abstract Susie, [facility] 1.2.840.114 [id number] 00:00:00 00:00:00 Lizzie Bay DEPENDENCY PROGRAM DIRECTOR 350.1.13.10 [facility] 4.2.7.2.686 MATERNAL [id number] & CHILD [facility] 2020-06-28 2020-06-28 Church History Professor 1, [facility] UNIVERSIT 1.2.840.11 [id number] 12:40:24 13:25:24 Visit [facility] 350.1.13.10 [facility] 4.2.7.2.686 [id number] 2020-06-27 2020-06-27 [facility] 1.2.980.750 [id number] 13:00:22 13:39:22 Lizzie C DEPENDENCY PROGRAM DIRECTOR 350.1.13.10 Visit [facility] 4.2.7.2.686 MATERNAL [id number] & CHILD [facility] 2020-06-17 2020-06-17 Routine Faculty, [facility] 1.2.840.114 [id number] 10:47:26 11:48:07 Ang Rmchp DEPENDENCY PROGRAM DIRECTOR 350.1.13.10 Visit [facility] 4.2.7.2.686 MATERNAL [id number] & CHILD [facility] 2018-09-05 2018-09-05 Out[facility] [place] [id number] [facility] 17:00:00 [facility] 2018-09-01 2018-09-01 Outpatient [place] [id number] Memoria 15:26:00 15:26:00 [facility] [place] [facility] 2018-07-28 2018-07-28 Outpatient [place] [id number] Memoria 11:34:00 11:34:00 [facility] [place] [facility] 2018-07-26 2018-07-26 Outpatient [place] [id number] Memoria 08:33:00 08:33:00 [facility] Practice 2018-07-25 2018-07-25 Outpatient [place] [id number] Memoria 12:56:00 12:56:00 [facility] [place] [facility] 2018-07-22 2018-07-22 Outpatient [place] [id number] Memoria 13:45:00 13:45:00 [facility] Results Test Description Test Time Test Comments Results Result Comments Source POCT TEST 2022-03-06 19:17:00 Test Item Value Reference Range Interpretation Comme nts POCT PREG (test code = 1605) Negative On board controls acceptable with C Line (test code = 3574) Yes POCT PREG LOT # (test code = 3575) POCT PREG TEST DATE (test code = 3576) Lab Interpretation (test code = 97552-4) Normal [facility]
[2022-04-06 17:19] LABS: Urine Blood Negative (Negative); Urine Glucose Negative (Negative); Urine Protein Negative (Negative)
[2022-04-06 17:37] LABS: Urine Bacteria 20-50 /HPF (<20); Urine RBC <5 /HPF (None Seen)
[2022-04-06] MEDS ORDERED: ONDANSETRON 4 MG/2 ML VIAL ONE (17:38)
[2022-04-06] MEDS ORDERED: NA CHLORIDE 0.9% 1,000 ML ONE (17:38)
[2022-04-06] MEDS ORDERED: KETOROLAC 30 MG/ML INJ ONE (17:38)
[2022-04-06 17:48] LABS: Hematocrit 36.1 % (36.0-45.0); Lymphocytes % 25.7 % (15.3-44.8); MCV 84.1 fL (80-100); MPV 7.5 fL (7.6-11.3)
[2022-04-06 18:05] LABS: Albumin 3.7 g/dL (3.4-5.0); Potassium 3.4 mmol/L (3.5-5.1)
[2022-04-06 18:08] LABS: Bilirubin Total 0.4 mg/dL (0.2-1.0); Protein, Total 8.3 g/dL (6.4-8.2)
--- NOTE | 2022-04-06 19:26 | RAD REPORT ---
EXAM DESCRIPTION: CT - Abdomen Pelvis W Contrast - 04/06/2022 7:17 pm CLINICAL HISTORY: RLQ abdominal pain COMPARISON: <Comparisons>CT abdomen and pelvis 12/14/2018 TECHNIQUE: Biphasic, helical CT imaging of the abdomen and pelvis was performed following 100 ml non -ionic IV contrast. No oral contrast administered. All CT scans are performed using dose optimization technique as appropriate and may include automated exposure control or mA/KV adjustment according to patient size. FINDINGS: No suspicious findings in the lung bases. The liver, spleen, and pancreas show no suspicious findings. Cholecystectomy clips are present. No bi liary tree dilatation. Symmetric renal function is seen with no hydronephrosis or suspicious renal mass. No pyelonephritis o r acute parenchymal process. No bladder abnormalities. No adrenal abnormalities. Uterus and ovaries s how no suspicious findings. No ovarian cyst rupture or hemorrhage identifiable. No dilated bowel loops or bowel wall thickening. No appendicitis findings. There is a moderate amount of stool filling the colon. A few small mesenteric lymph nodes are present. No free air, free fluid or inflammatory stranding. No hernia, mass or bulky lymphadenopathy. No suspicious bony findings. IMPRESSION: No appendicitis or emergent CT abdomen and pelvis finding. Small mesenteric lymph nodes are present. Mild mesenteric adenitis or nonspecific mild enteritis woul d be possible. 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
--- NOTE | 2022-04-06 19:53 | EDPHYS ---
Physician Documentation [facility] Name: Urvashi Molina Age: 22 yrs Sex: Female : 2000 Arrival Date: 04/06/2022 Time: 16:49 Bed 13 Private MD: ED Physician Sadi Gay HPI: 04/06 17:15 This 22 yrs old Female presents to ER via Ambulatory with complaints of cp Abdominal Pain. 17:15 The patient presents with abdominal pain right lower quadrant. Onset: The cp symptoms/episode began/occurred suddenly, today, about 1130. The symptoms radiate to right groin. 17:15 Associated signs and symptoms: Pertinent positives: nausea, Pertinent negatives: blood cp in stools, chest pain, constipation, diarrhea, dysuria, fever, vaginal discharge, vomiting. 17:15 The symptoms are described as constant. Modifying factors: the symptoms are aggravated cp by movement, pressure. 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 - Social history:: Smoking status: Patient denies any tobacco usage or history of. ROS: 17:25 Constitutional: Negative for body aches, chills, fever, poor PO intake. cp 17:25 Eyes: Negative for injury, pain, redness, and discharge. cp 17:25 ENT: Negative for drainage from ear(s), ear pain, sore throat, difficulty swallowing, difficulty handling secretions. 17:25 Cardiovascular: Negative for chest pain, edema, palpitations. 17:25 Respiratory: Negative for cough, shortness of breath, wheezing. 17:25 Abdomen/GI: Positive for abdominal pain, nausea, Negative for vomiting, diarrhea, constipation, anorexia, black/tarry stool, rectal bleeding. 17:25 Back: Negative for injury or acute deformity. 17:25 : Negative for urinary symptoms, flank pain, vaginal bleeding, vaginal discharge. 17:25 Neuro: Negative for altered mental status, headache, numbness, weakness. 17:25 All other systems are negative. Exam: 17:30 Constitutional: The patient appears in no acute distress, alert, awake, non-toxic, well cp developed, well nourished, uncomfortable. 17:30 Head/Face: Normocephalic, atraumatic. cp 17:30 Eyes: Periorbital structures: appear normal, Conjunctiva: normal, no exudate, no injection, Sclera: no appreciated abnormality, Lids and lashes: appear normal, bilaterally. 17:30 ENT: External ear(s): are unremarkable, Nose: is normal, Mouth: Lips: moist, Oral mucosa: pink and intact, moist, Posterior pharynx: Airway: no evidence of obstruction, patent. 17:30 Chest/axilla: Inspection: normal, Palpation: is normal, no crepitus, no tenderness. 17:30 Cardiovascular: Rate: normal, Rhythm: regular, Edema: is not appreciated, JVD: is not appreciated. 17:30 Respiratory: the patient does not display signs of respiratory distress, Respirations: normal, no use of accessory muscles, no retractions, labored breathing, is not present, Breath sounds: are clear throughout, no decreased breath sounds, no stridor, no wheezing. 17:30 Abdomen/GI: Inspection: abdomen appears normal, Bowel sounds: active, all quadrants, Palpation: soft, in all quadrants, moderate abdominal tenderness, in the right lower quadrant, rebound tenderness, is not appreciated, involuntary guarding, is not appreciated. 17:30 Back: ROM is normal, CVA tenderness, is absent. 17:30 Skin: cellulitis, is not appreciated, no rash present. 17:30 Neuro: Orientation: to person, place \T\ time. Mentation: is normal, Motor: moves all fours, strength is normal. Vital Signs: 17:04 BP 111 / 66; Pulse 77; Resp 16 S; Pulse Ox 100% on R/A; Weight 94.35 kg (R); Height 5 aa5 ft. 7 in. (170.18 cm) (R); Pain 7/10; 17:45 BP 113 / 54; Pulse 79; Resp 14 S; Pulse Ox 100% on R/A; Pain 6/10; jg9 18:50 BP 107 / 61; Pulse 69; Resp 14 S; Pulse Ox 100% on R/A; Pain 4/10; jg9 19:39 Pulse 63; Resp 15; Pulse Ox 100% ; Pain 0/10; vc1 19:43 BP 108 / 61; vc1 17:04 Body Mass Index 32.58 (94.35 kg, 170.18 cm) aa5 MDM: 17:08 Patient medically screened. cp 18:00 Differential diagnosis: appendicitis, Ectopic , Endometriosis, non-specific cp abd pain, Ovarian Torsion, Pelvic Inflammatory Disease, Pyelonephritis, Tubal Ovarian Abcess, Ureterolithiasis, urinary tract infection. 19:52 Data reviewed: vital signs, nurses notes, lab test result(s), radiologic studies, CT cp scan. 19:53 Counseling: I had a detailed discussion with the patient and/or guardian regarding: the cp historical points, exam findings, and any diagnostic results supporting the discharge/admit diagnosis, lab results, radiology results, to return to the emergency department if symptoms worsen or persist or if there are any questions or concerns that arise at home. 19:53 Response to treatment: the patient's symptoms have markedly improved after treatment, cp and as a result, I will discharge patient. Special discussion: Based on the patient's Hx, exam, and Dx evaluation, there is no indication for emergent surgery or inpatient Tx. It is understood by the patient/guardian that if the Sx's persist or worsen they need to return immediately for re-evaluation. 04/06 17:06 Order name: CBC with Diff; Complete Time: 18:07 cp 04/06 19:40 Interpretation: Normal except: WBC 11.50; HGB 11.5; MCH 26.8; MCHC 31.9; MPV 7.5. 04/06 17:06 Order name: CMP; Complete Time: 19:38 cp 04/06 19:39 Interpretation: Normal except: NA 135; K 3.4; TP 8.3; GLOB 4.6; A/G 0.8. 04/06 17:06 Order name: Lipase; Complete Time: 19:38 cp 04/06 17:06 Order name: Urine Microscopic Only; Complete Time: 17:53 cp 04/06 17:54 Interpretation: Normal except: UBACT 20-50. 04/06 17:18 Order name: Urine --Ancillary (enter results) bd 04/06 17:19 Order name: Urine Dipstick-Ancillary; Complete Time: 17:53 EDMS 04/06 19:40 Interpretation: Reviewed. 04/06 17:06 Order name: IV Saline Lock; Complete Time: 17:42 cp 04/06 17:06 Order name: Labs collected and sent; Complete Time: 17:42 cp 04/06 17:06 Order name: Urine Dipstick-Ancillary (obtain specimen); Complete Time: 17:18 cp 04/06 18:08 Order name: CT Abd/Pelvis - IV Contrast Only; Complete Time: 19:38 cp 04/06 18:09 Order name: Urine Culture EDMS 04/06 17:06 Order name: Urine Test (obtain specimen); Complete Time: 17:18 cp Administered Medications: 17:31 Drug: NS 0.9% 1000 ml Route: IV; Rate: 1 bolus; Site: left antecubital; jg9 18:56 Follow up: IV Status: Completed infusion; IV Intake: 1000ml jg9 17:32 Drug: Zofran (Ondansetron) 4 mg Route: IVP; Site: left forearm; jg9 18:00 Follow up: Response: No adverse reaction; Marked relief of symptoms; Nausea is decreasedjg9 17:35 Drug: Ketorolac 15 mg {Note: 710 RLQ pain.} Route: IVP; Site: left antecubital; jg9 18:00 Follow up: Response: No adverse reaction; Marked relief of symptoms; Pain is decreased jg9 Disposition Summary: 04/06/22 19:53 Discharge Ordered Location: Home cp Problem: new cp Symptoms: have improved cp Condition: Stable cp Diagnosis - Lower abdominal pain, unspecified cp - UTI/ Urinary tract infection, site not specified cp Followup: cp - With: Private Physician - When: 2 - 3 days - Reason: Worsening of condition Discharge Instructions: - Discharge Summary Sheet cp - Abdominal Pain, Adult cp - Urinary Tract Infection, Adult cp Forms: - Medication Reconciliation Form cp - Thank You Letter cp - Antibiotic Education cp - Prescription Opioid Use cp Prescriptions: - Ibuprofen 800 mg Oral Tablet - take 1 tablet by ORAL route every 8 hours As needed take with food; 30 tablet; cp Refills: 0, Product Selection Permitted - Zofran 4 mg Oral Tablet - take 1 tablet by ORAL route every 12 hours As needed; 20 tablet; Refills: 0, cp Product Selection Permitted - Macrobid 100 mg Oral Capsule - take 1 capsule by ORAL route every 12 hours for 7 days; 14 capsule; Refills: 0, cp Product Selection Permitted Addendum: 04/08/2022 23:59 Co-signature as Attending Physician, Sadi Gay MD. r n Signatures: Dispatcher [employer] Sadi Isaacs MD MD rn Calderon, Jaqueline RN RN aa5 Marcus Taylor PA PA cp Joycelyn Ball RN RN jg9 Corrections: (The following items were deleted from the chart) 04/06 19:39 19:39 Normal except: NA 135; K 3.4; TP 8.3. cp cp
--- NOTE | 2022-04-06 19:53 | ER ---
Nurse's Notes [facility] Name: Urvashi Molina Age: 22 yrs Sex: Female : 2000 Arrival Date: 04/06/2022 Time: 16:49 Bed 13 Private MD: Diagnosis: Lower abdominal pain, unspecified;UTI/ Urinary tract infection, site not specified Presentation: 04/06 17:04 Chief complaint: Patient states: RLQ pain that began today around 1130. Pt also reports aa5 nausea. Coronavirus screen: nausea. Ebola Screen: Patient denies travel to an Ebola-affected area in the 21 days before illness onset. Initial Sepsis Screen: Does the patient meet any 2 criteria? No. Patient's initial sepsis screen is negative. Does the patient have a suspected source of infection? No. Patient's initial sepsis screen is negative. Risk Assessment: Do you want to hurt yourself or someone else? Patient reports no desire to harm self or others. Onset of symptoms was April 06, 2022. 17:04 Method Of Arrival: Ambulatory aa5 17:04 Acuity: DELVIS 3 aa5 Triage Assessment: 17:30 General: Appears in no apparent distress. Behavior is calm, cooperative. Pain: jg9 Complains of pain in right lower quadrant. GI: Reports lower abdominal pain, nausea. 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 - Social history:: Smoking status: Patient denies any tobacco usage or history of. Screenin:40 Abuse screen: Denies threats or abuse. Denies injuries from another. Nutritional jg9 screening: No deficits noted. Tuberculosis screening: No symptoms or risk factors identified. Fall Risk None identified. Assessment: 17:30 Reassessment: No changes from previously documented assessment. Patient and/or family jg9 updated on plan of care and expected duration. Pain level reassessed. Patient is alert, oriented x 3, equal unlabored respirations, skin warm/dry/pink. 17:41 GI: Bowel sounds present X 4 quads. Abdomen is tender to palpation in right lower jg9 quadrant. 18:00 Reassessment: Patient and/or family updated on plan of care and expected duration. Pain jg9 level reassessed. Patient is alert, oriented x 3, equal unlabored respirations, skin warm/dry/pink. 18:57 Reassessment: patient reports pain is 4/10 Patient states feeling better. Patient jg9 states symptoms have improved. 19:39 Reassessment: No changes from previously documented assessment. Patient and/or family vc1 updated on plan of care and expected duration. Pain level reassessed. Patient is alert, oriented x 3, equal unlabored respirations, skin warm/dry/pink. Vital Signs: 17:04 BP 111 / 66; Pulse 77; Resp 16 S; Pulse Ox 100% on R/A; Weight 94.35 kg (R); Height 5 aa5 ft. 7 in. (170.18 cm) (R); Pain 7/10; 17:45 BP 113 / 54; Pulse 79; Resp 14 S; Pulse Ox 100% on R/A; Pain 6/10; jg9 18:50 BP 107 / 61; Pulse 69; Resp 14 S; Pulse Ox 100% on R/A; Pain 4/10; jg9 19:39 Pulse 63; Resp 15; Pulse Ox 100% ; Pain 0/10; vc1 19:43 BP 108 / 61; vc1 17:04 Body Mass Index 32.58 (94.35 kg, 170.18 cm) aa5 ED Course: 16:49 Patient arrived in ED. as 16:55 Marcus Taylor PA is PHCP. cp 16:55 Sadi Gay MD is Attending Physician. cp 17:04 Arm band placed on. aa5 17:05 Triage completed. aa5 17:18 Bed in low position. Call light in reach. Side rails up X 1. Door closed. Noise mb7 minimized. Warm blanket given. 17:18 Urine Microscopic Only Sent. mb7 17:25 Inserted saline lock: 20 gauge in left antecubital area, using aseptic technique. Blood jg9 collected. 17:27 Joycelyn Ball, RN is Primary Nurse. jg9 19:11 Primary Nurse role handed off by Joycelyn Ball, RN mw2 19:19 CT Abd/Pelvis - IV Contrast Only In Process Unspecified. EDMS 19:39 Calcote, Janice, LINDSEY is Primary Nurse. vc1 20:01 No provider procedures requiring assistance completed. IV discontinued, intact, vc1 bleeding controlled, No redness/swelling at site. Pressure dressing applied. Administered Medications: 17:31 Drug: NS 0.9% 1000 ml Route: IV; Rate: 1 bolus; Site: left antecubital; jg9 18:56 Follow up: IV Status: Completed infusion; IV Intake: 1000ml jg9 17:32 Drug: Zofran (Ondansetron) 4 mg Route: IVP; Site: left forearm; jg9 18:00 Follow up: Response: No adverse reaction; Marked relief of symptoms; Nausea is decreasedjg9 17:35 Drug: Ketorolac 15 mg {Note: 710 RLQ pain.} Route: IVP; Site: left antecubital; jg9 18:00 Follow up: Response: No adverse reaction; Marked relief of symptoms; Pain is decreased jg9 Medication: 19:39 VIS not applicable for this client. vc1 Intake: 18:56 IV: 1000ml; Total: 1000ml. jg9 Outcome: 19:53 Discharge ordered by . cp 20:01 Discharged to home ambulatory. vc1 20:01 Condition: good 20:01 Discharge instructions given to patient, Instructed on discharge instructions, follow up and referral plans. medication usage, Demonstrated understanding of instructions, follow-up care, medications, Prescriptions given X 3. 20:01 Patient left the ED. vc1 Signatures: Dispatcher [employer] EDNE Archana Sawant Audri, RN RN aa5 Marcus Taylor PA PA cp [place], MyKena 2 Li Castro mb7 Joycelyn Ball RN RN jg9 Janice Gomez, LINDSEY RN vc1 Corrections: (The following items were deleted from the chart) 17:06 17:04 Pulse 77bpm; Resp 16bpm; Spontaneous; Pulse Ox 100% RA; 94.35 kg Reported; Height aa5 5 ft. 7 in. Reported; BMI: 32.5; Pain 7/10; aa5
[2022-04-06 20:42] VITALS: O2SAT 100
[2022-04-06 20:53] VITALS: BP 108/61
== END 2022-04-06 20:01 | disposition home or self-care (01) ==
LOC: ER 16:47
DX: N39.0 Urinary tract infection, site not specified (principal); Z88.1 Allergy status to other antibiotic agents
CPT/HCPCS: 87088; 85025; 87086; 36415; 81025; 83690; 80053; 74177; Q9967; J7030; J2405; 81003; 81015; 99284

== ENCOUNTER 2024-06-18 22:56 | Emergency (ER) | payer OTHER ==
[2024-06-19] MEDS ORDERED: ACETAMINOPHEN 500 MG TAB ONE (00:30)
[2024-06-19 01:01] LABS: Specific Gravity 1.029 (1.005-1.030); Urine Bilirubin NEGATIVE (Negative); Urine Blood Negative (Negative); Urine Clarity Clear (Clear); Urine Color Light-Yellow (Yellow); Urine Glucose NEGATIVE (Negative); Urine Ketones NEGATIVE (Negative); Urine Microscopic Reflex YN NO UMIC; Urine Nitrite NEGATIVE (Negative); Urine Protein NEGATIVE (Negative); Urine Urobilinogen Normal (Normal); Urine pH 5.5 (5.0-7.0)
--- NOTE | 2024-06-19 01:07 | ER ---
Nurse's Notes [facility] Name: Urvashi Molina Age: 24 yrs Sex: Female : 2000 Arrival Date: 06/18/2024 Time: 22:56 Bed 20 Private MD: Diagnosis: Disorder of teeth and supporting structures, unspecified;Encounter for test, result negative Presentation: 06/18 23:21 Chief complaint: Patient states: HX of tooth abcess. pain to right and left bottom jaw lg3 radiating to right faith, groggy, not feeling well X3 days. Coronavirus screen: Client denies travel out of the [place] in the last 14 days. At this time, the client does not indicate any symptoms associated with coronavirus-19. Ebola Screen: No symptoms or risks identified at this time. Initial Sepsis Screen: Does the patient meet any 2 criteria? No. Patient's initial sepsis screen is negative. Does the patient have a suspected source of infection? No. Patient's initial sepsis screen is negative. Risk Assessment: Do you want to hurt yourself or someone else? Patient reports no desire to harm self or others. Onset of symptoms was June 16, 2024. 23:21 Method Of Arrival: Ambulatory lg3 23:21 Acuity: DELVIS 4 lg3 Triage Assessment: 23:25 General: Appears in no apparent distress. comfortable, Behavior is calm, cooperative. lg3 Pain: Complains of pain in mouth. EENT: Reports pain in right mandible and left mandible. Neuro: No deficits noted. Valenzuela Agitation-Sedation Scale (RASS): 0 - Alert and Calm Level of Consciousness is awake, alert, obeys commands, Oriented to person, place, time, situation. Cardiovascular: No deficits noted. Denies chest pain, shortness of breath, Capillary refill < 3 seconds Clubbing of nail beds is absent JVD is absent Patient's skin is warm and dry. Respiratory: No deficits noted. Airway is patent Respiratory effort is even, unlabored, Respiratory pattern is regular, symmetrical. GI: No deficits noted. No signs and/or symptoms were reported involving the gastrointestinal system. : No signs and/or symptoms were reported regarding the genitourinary system. Derm: No deficits noted. No signs and/or symptoms reported regarding the dermatologic system. Skin is intact, is healthy with good turgor, Skin is dry, Skin is normal, Skin temperature is warm. Musculoskeletal: No deficits noted. No signs and/or symptoms reported regarding the musculoskeletal system. Circulation, motion, and sensation intact. Range of motion: intact in all extremities. 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 - Infectious Disease History:: Denies. - Social history:: Smoking status: Patient denies any tobacco usage or history of. Patient/guardian denies using alcohol, street drugs. Screenin:28 [facility] ED Fall Risk Assessment (Adult) History of falling in the last 3 months, lg3 including since admission No falls in past 3 months (0 pts) Confusion or Disorientation No (0 pts) Intoxicated or Sedated No (0 pts) Impaired Gait No (0 pts) Mobility Assist Device Used No (0 pt) Altered Elimination No (0 pt) Score/Fall Risk Level 0 - 2 = Low Risk Oriented to surroundings, Maintained a safe environment, Educated pt \T\ family on fall prevention, incl call for assistance when getting out of bed, Assessed \T\ reinforced patient's understanding of fall precautions. Abuse screen: Denies threats or abuse. Denies injuries from another. Nutritional screening: No deficits noted. Tuberculosis screening: No symptoms or risk factors identified. Assessment: 23:28 General: see triage assessment. lg3 06/19 00:25 Reassessment: Patient appears in no apparent distress at this time. Patient and/or kj2 family updated on plan of care and expected duration. Pain level reassessed. Patient is alert, oriented x 3, equal unlabored respirations, skin warm/dry/pink. 01:29 Reassessment: Patient appears in no apparent distress at this time. Patient and/or kj2 family updated on plan of care and expected duration. Pain level reassessed. Patient is alert, oriented x 3, equal unlabored respirations, skin warm/dry/pink. Vital Signs: 06/18 23:21 BP 134 / 80; Pulse 84; Resp 17 S; Temp 98.8(O); Pulse Ox 100% on R/A; Weight 104.33 kg lg3 (R); Height 5 ft. 5 in. (R); 06/19 00:25 BP 135 / 91; Pulse 78; Resp 20; Temp 98; Pulse Ox 100% on R/A; kj2 01:29 BP 132 / 84; Pulse 74; Resp 18; Temp 98.1; Pulse Ox 100% on R/A; kj2 06/18 23:21 Body Mass Index 38.27 (104.33 kg, 165.1 cm) 3 ED Course: 06/18 22:58 Patient arrived in ED. ra3 23:15 Marcus Taylor PA is PHCP. cp 23:15 Sadi Gay MD is Attending Physician. cp 23:25 Triage completed. lg3 23:25 Arm band placed on right wrist. lg3 23:28 Patient taken to lobby, ambulatory, steady gait. lg3 23:28 Patient has correct armband on for positive identification. lg3 23:30 Provided Education on: call light. kj2 06/19 00:20 Maria Guadalupe Chávez, LINDSEY is Primary Nurse. kj2 00:49 Test, Urine Sent. kj2 00:49 Urinalysis w/ reflexes Sent. kj2 01:00 No provider procedures requiring assistance completed. kj2 01:31 Patient did not have IV access during this emergency room visit. kj2 Administered Medications: 00:34 Drug: Clindamycin PO 600 mg PO once Route: PO; kj2 01:32 Follow up: Response: No adverse reaction kj2 00:34 Drug: Acetaminophen PO 1000 mg PO once Route: PO; kj2 01:31 Follow up: Response: No adverse reaction; Pain is decreased kj2 Medication: 00:59 VIS not applicable for this client. kj2 Outcome: 01:07 Discharge ordered by . cp 01:30 Condition: stable kj2 01:31 Discharged to home ambulatory, kj2 01:31 Discharge instructions given to patient, Instructed on discharge instructions, follow up and referral plans. medication usage, Demonstrated understanding of instructions, follow-up care, medications, Prescriptions given X 2, 01:34 Patient left the ED. kj2 Signatures: Marcus Taylor PA PA Claribel Medel RN RN lg3 Tana Baldwin ra3 Maria Guadalupe Chávez RN RN kj2 Corrections: (The following items were deleted from the chart) 06/18 23:26 23:25 Allergies: NKA; lg3 lg3
--- NOTE | 2024-06-19 01:08 | EDPHYS ---
Physician Documentation [facility] Name: Urvashi Molina Age: 24 yrs Sex: Female : 2000 Arrival Date: 06/18/2024 Time: 22:56 Bed 20 Private MD: ED Physician Sadi Gay HPI: 06/18 23:30 This 24 yrs old Female presents to ER via Ambulatory with complaints of cp Toothache. 23:30 The patient presents with pain. cp 23:30 The problem is located in the left and right lower jaw. Onset: The symptoms/episode cp began/occurred 3 day(s) ago. Duration: The symptoms are continuous, and are steadily getting worse. 23:30 Associated signs and symptoms: Pertinent negatives: anorexia, chills, dysphagia, fever, cp inability to eat, vomiting. 23:30 Severity of symptoms: in the emergency department the symptoms are unchanged, despite cp home interventions. 23:30 Patient also requesting test. 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 - Infectious Disease History:: Denies. - Social history:: Smoking status: Patient denies any tobacco usage or history of. Patient/guardian denies using alcohol, street drugs. ROS: 23:35 Constitutional: HX per hpi cp Exam: 23:40 Constitutional: The patient appears in no acute distress, alert, awake, non-toxic, well cp developed, well nourished, overweight 23:40 Head/Face: Normocephalic, atraumatic, no facial swelling noted cp 23:40 Eyes: Periorbital structures: appear normal, Conjunctiva: normal, no exudate, no injection, Sclera: no appreciated abnormality, Lids and lashes: appear normal, bilaterally, 23:40 ENT: External ear(s): are unremarkable, Ear canal(s): are normal, clear, TM's: dullness, bilaterally, Nose: is normal, Mouth: Lips: moist, Oral mucosa: pink and intact, moist, Tongue: is normal, abscess, is not appreciated, Posterior pharynx: Airway: no evidence of obstruction, patent, Tonsils: are normal in appearance, swelling, is not appreciated, erythema, is not appreciated, exudate, is not appreciated, Dental exam: abscess, is not appreciated, dental caries, that is severe, diffusely, worse lower left and right jaw, gum swelling, that is mild, missing teeth, diffusely, pain, that is moderate, left and right lower jaw, Voice: is normal, 23:40 Neck: ROM/movement: is normal, is supple, without pain, no range of motions limitations, no meningismus, no nuchal rigidity, Lymph nodes: no appreciated lymphadenopathy, 23:40 Chest/axilla: Inspection: normal, 23:40 Cardiovascular: Rate: normal, Rhythm: regular, 23:40 Respiratory: the patient does not display signs of respiratory distress, Respirations: normal, no use of accessory muscles, no retractions, labored breathing, is not present, Breath sounds: are clear throughout, no decreased breath sounds, no stridor, no wheezing, 23:40 Abdomen/GI: Exam negative for discomfort, distension, guarding, Inspection: abdomen appears normal, 23:40 Skin: cellulitis, is not appreciated, no rash present. 23:40 Neuro: Orientation: to person, place \T\ time. Mentation: is normal, Motor: moves all fours, strength is normal, Gait: is steady, at a normal pace, without difficulty, Vital Signs: 23:21 BP 134 / 80; Pulse 84; Resp 17 S; Temp 98.8(O); Pulse Ox 100% on R/A; Weight 104.33 kg lg3 (R); Height 5 ft. 5 in. (R); 06/19 00:25 BP 135 / 91; Pulse 78; Resp 20; Temp 98; Pulse Ox 100% on R/A; kj2 01:29 BP 132 / 84; Pulse 74; Resp 18; Temp 98.1; Pulse Ox 100% on R/A; kj2 06/18 23:21 Body Mass Index 38.27 (104.33 kg, 165.1 cm) lg3 MDM: 06/18 23:32 Medical Screening Exam initiated cp 06/19 00:00 Differential diagnosis: dental caries, dental abscess, pericoronitis, acute necrotizing cp ulcerative gingivitis, gingivostomatitis, sepsis. 01:06 Data reviewed: vital signs, nurses notes, lab test result(s), and as a result, I will cp discharge patient. 01:06 I considered the following discharge prescriptions or medication management in the cp emergency department Medications were administered in the Emergency Department. See MAR. 01:06 Counseling: I had a detailed discussion with the patient and/or guardian regarding the cp historical points, exam findings, and any diagnostic results supporting the discharge/admit diagnosis, lab results, the need for outpatient follow up, for definitive care, a dentist, to return to the emergency department if symptoms worsen or persist or if there are any questions or concerns that arise at home. Response to treatment: the patient's symptoms have mildly improved after treatment, and as a result, I will discharge patient. 06/18 23:33 Order name: Urinalysis w/ reflexes; Complete Time: 01:04 cp 06/18 23:33 Order name: Test, Urine cp 06/19 01:04 Interpretation: Reviewed. cp Administered Medications: 00:34 Drug: Clindamycin PO 600 mg PO once Route: PO; kj2 01:32 Follow up: Response: No adverse reaction kj2 00:34 Drug: Acetaminophen PO 1000 mg PO once Route: PO; kj2 01:31 Follow up: Response: No adverse reaction; Pain is decreased kj2 Disposition: 08:18 Co-signature as Attending Physician, Sadi Gay MD I reviewed the patient's care rn provided by the Advanced Practice Provider and agree with the diagnosis and treatment plan. Disposition Summary: 06/19/24 01:07 Discharge Ordered Notes: Location: Home cp Problem: new cp Symptoms: have improved cp Condition: Stable cp Diagnosis - Disorder of teeth and supporting structures, unspecified cp - Encounter for test, result negative cp Followup: cp - With: Private Physician - When: 1 week - Reason: Recheck today's complaints Discharge Instructions: - Discharge Summary Sheet cp - Dental Pain cp Forms: - Medication Reconciliation Form cp - Antibiotic Education cp - Prescription Opioid Use cp - Patient Portal Instructions cp - Leadership Thank You Letter cp Prescriptions: - Anaprox DS 550 mg Oral Tablet - take 1 tablet ORAL route every 12 hours As needed; 20 tablet; Refills: 0, cp Product Selection Permitted - Clindamycin HCl 300 mg Oral Capsule - take 1 capsule ORAL route every 6 hours for 10 days; 40 capsule; Refills: 0, cp Product Selection Permitted Signatures: Dispatcher [employer] EDSadi Peters MD MD rn Page, Corey, PA PA cp Able, Lacie, RN RN lg3 Maria Guadalupe Chávez RN RN kj2 Corrections: (The following items were deleted from the chart) 06/18 23:26 23:25 Allergies: NKA; lg3 lg3
[2024-06-19 01:39] VITALS: O2SAT 100
[2024-06-19 01:42] VITALS: BP 132/84; TEMP 98.1
== END 2024-06-19 01:34 | disposition home or self-care (01) ==
LOC: ER 22:56
DX: K08.89 Other specified disorders of teeth and supporting structures (principal); Z32.02 Encounter for pregnancy test, result negative
CPT/HCPCS: 81003; 81025; 99284

== ENCOUNTER 2024-11-01 00:02 | Emergency (ER) | payer OTHER, SELFPAY ==
[2024-11-01] MEDS ORDERED: predniSONE 20 MG TAB ONE (00:29)
[2024-11-01] MEDS ORDERED: FAMOTIDINE 20 MG TAB ONE (00:30)
--- NOTE | 2024-11-01 00:42 | EDPHYS ---
Physician Documentation [facility] Name: Urvashi Molina Age: 24 yrs Sex: Female : 2000 Arrival Date: 11/01/2024 Time: 00:02 Bed DX3 Private MD: ED Physician Andry Oropeza HPI: 11/01 00:21 This 24 yrs old Female presents to ER via Unassigned with complaints of hives sp4 and allergic reaction to Azo. 00:41 Patient was administered Benadryl 25 mg intramuscular by EMS as well as 25 mg sp4 intravenous by EMS. . 20:55 Presents with acute hives secondary to Azo that she took at home. sp4 RESOLUTE PROFESSIONAL: 00:50 unknown kl Historical: - Allergies: 00:30 Amoxicillin; br2 00:30 AZO Standard; br2 - Home Meds: 00:52 Zoloft Oral [Active]; kl - PMHx: 00:30 Anxiety; high heart rate; br2 - PSHx: 00:30 Cholecystectomy; br2 - Immunization history:: Adult Immunizations up to date. - Infectious Disease History:: Denies. - Social history:: Smoking status: Patient denies any tobacco usage or history of. Patient/guardian denies using alcohol, street drugs. - Family history:: not pertinent. ROS: 20:55 Constitutional: Negative for fever, chills, and weight loss, today for hives positive sp4 for itching bilateraly 20:55 All other systems are negative, Exam: 20:55 Constitutional: This is a well developed, well nourished patient who is awake, alert, sp4 and in no acute distress. Head/Face: Normocephalic, atraumatic. Eyes: Pupils equal round and reactive to light, extra-ocular motions intact. Lids and lashes normal. Conjunctiva and sclera are not injected. Cornea within normal limits. Periorbital areas with no swelling, redness, or edema. ENT: Nares patent. No nasal discharge, no septal abnormalities noted. Tympanic membranes are normal and external auditory canals are clear. Oropharynx with no redness, swelling, or masses, exudates, or evidence of obstruction, uvula midline. Mucous membranes moist. Neck: Trachea midline, no thyromegaly or masses palpated, and no cervical lymphadenopathy. Supple, full range of motion without nuchal rigidity, or vertebral point tenderness. Chest/axilla: Normal chest wall appearance and motion. Nontender with no deformity. No lesions are appreciated. Cardiovascular: Regular rate and rhythm with a normal S1 and S2. No gallops, murmurs, or rubs. Normal PMI, no JVD. No pulse deficits. Respiratory: Lungs have equal breath sounds bilaterally, clear to auscultation and percussion. No rales, rhonchi or wheezes noted. No increased work of breathing, no retractions or nasal flaring. Abdomen/GI: Soft, with normal bowel sounds. No distension or tympany. No guarding or rebound. No evidence of tenderness throughout. Back: No spinal tenderness. No costovertebral tenderness. Skin: Warm, dry with normal turgor. Normal color with no rashes, no lesions, and no evidence of cellulitis. At time of arrival patient reports resolution of hives. MS/ Extremity: Pulses equal, no cyanosis. Neurovascular intact. Full, normal range of motion. Neuro: Awake and alert, GCS 15, oriented to person, place, time, and situation. Cranial nerves II-XII grossly intact. Motor strength 5/5 in all extremities. Sensory grossly intact. Psych: Awake, alert, with orientation to person, place and time. Behavior, mood, and affect are within normal limits Vital Signs: 00:27 BP 125 / 66; Pulse 84; Resp 18; Temp 98.6(O); Pulse Ox 100% on R/A; Weight 104.33 kg; br2 Height 5 ft. 5 in. ; Pain 0/10; 00:50 BP 118 / 69; Pulse 72; Resp 20; Pulse Ox 100% on R/A; kl 00:27 Body Mass Index 38.27 (104.33 kg, 165.1 cm) br2 00:27 Pain Scale: Adult br2 MDM: 00:18 Medical Screening Exam initiated kb 20:56 Differential diagnosis: impetigo, varicella, allergic reaction, parasite infection. sp4 Data reviewed: vital signs, nurses notes, EMS record, old medical records. Consideration of Admission/Observation Escalation of care including admission/observation considered. ED course: Hives have resolved. Patient stable for discharge home with p.o. prednisone and Benadryl.. Administered Medications: 00:32 Drug: Famotidine PO 40 mg PO once Route: PO; kl 00:33 Drug: predniSONE PO 60 mg PO once Route: PO; kl Disposition: 20:56 Chart complete. sp4 Disposition Summary: 11/01/24 00:42 Discharge Ordered Notes: Location: Home sp4 Problem: new sp4 Symptoms: have improved sp4 Condition: Stable sp4 Diagnosis - Acute allergic reaction, Acute allergic hives, allergic reaction secondary to sp4 phenazopyridine Followup: sp4 - With: Private Physician - When: 7 - 10 days - Reason: Recheck today's complaints Discharge Instructions: - Discharge Summary Sheet sp4 - Hives, [id number] sp4 Forms: - Patient Portal Instructions sp4 Prescriptions: - Benadryl 25 mg Oral capsule - take 1 capsule ORAL route every 6 hours As needed PRN itching; 30 tablet; sp4 Refills: 0, Product Selection Permitted - Prednisone 20 mg Oral Tablet - take 2 tablets ORAL route once daily for 5 days; 10 tablet; Refills: 0, Product sp4 Selection Permitted Signatures: Ines Jaimes FNP-C FNP-Britney Aparicio, RN RN kl Andry Oropeza MD MD sp4 Beata Malloy RN RN br2
--- NOTE | 2024-11-01 00:42 | ER ---
Nurse's Notes [facility] Name: Urvashi Molina Age: 24 yrs Sex: Female : 2000 Arrival Date: 11/01/2024 Time: 00:02 Bed DX3 Private MD: Diagnosis: Acute allergic reaction, Acute allergic hives, allergic reaction secondary to phenazopyridine Presentation: 11/01 00:27 Chief complaint: Patient states: PT STATES SHE TOOK AN AZO AND BEGAN GETTING HIVES ALL br2 OVER BODY AND ITCHING, THROAT STARTED FEELING DIFFERENT. PT WAS GIVEN BENADRYL 25MG IM, AND BENADRYL 25MG IV. Coronavirus screen: Client denies travel out of the [place] in the last 14 days. Ebola Screen: Patient denies exposure to infectious person. Initial Sepsis Screen: Does the patient meet any 2 criteria? No. Patient's initial sepsis screen is negative. Does the patient have a suspected source of infection? No. Patient's initial sepsis screen is negative. Risk Assessment: Do you want to hurt yourself or someone else? Patient reports no desire to harm self or others. Care prior to arrival: None. 00:27 Method Of Arrival: Ambulatory br2 00:27 Acuity: DELVIS 3 br2 00:51 Onset of symptoms was November 01, 2024. Triage Assessment: 00:30 General: Appears in no apparent distress. comfortable, Behavior is calm, cooperative. br2 Pain: Denies pain. Respiratory: Airway is patent Respiratory effort is even, unlabored, Respiratory pattern is regular, symmetrical. Derm: Skin is intact, Skin is moist, Skin is normal, Skin temperature is warm. MFTS: 00:50 unknown Historical: - Allergies: 00:30 Amoxicillin; br2 00:30 AZO Standard; br2 - Home Meds: 00:52 Zoloft Oral [Active]; kl - PMHx: 00:30 Anxiety; high heart rate; br2 - PSHx: 00:30 Cholecystectomy; br2 - Immunization history:: Adult Immunizations up to date. - Infectious Disease History:: Denies. - Social history:: Smoking status: Patient denies any tobacco usage or history of. Patient/guardian denies using alcohol, street drugs. - Family history:: not pertinent. Screenin:50 [facility] ED Fall Risk Assessment (Adult) History of falling in the last 3 months, kl including since admission No falls in past 3 months (0 pts) Confusion or Disorientation No (0 pts) Intoxicated or Sedated No (0 pts) Impaired Gait Mobility Assist Device Used No (0 pt) Altered Elimination No (0 pt) Score/Fall Risk Level 0 - 2 = Low Risk Oriented to surroundings, Maintained a safe environment. Abuse screen: Denies threats or abuse. Nutritional screening: No deficits noted. Tuberculosis screening: No symptoms or risk factors identified. Assessment: 00:50 Reassessment: Patient appears in no apparent distress at this time. Patient states kl feeling better. Patient states symptoms have improved. Vital Signs: 00:27 BP 125 / 66; Pulse 84; Resp 18; Temp 98.6(O); Pulse Ox 100% on R/A; Weight 104.33 kg; br2 Height 5 ft. 5 in. ; Pain 0/10; 00:50 BP 118 / 69; Pulse 72; Resp 20; Pulse Ox 100% on R/A; kl 00:27 Body Mass Index 38.27 (104.33 kg, 165.1 cm) br2 00:27 Pain Scale: Adult br2 ED Course: 00:16 Patient arrived in ED. kmf 00:17 [facility] kb 00:18 Andry Oropeza MD is Attending Physician. kb 00:30 Triage completed. br2 00:51 Patient has correct armband on for positive identification. Provided Education on: . kl 00:51 No provider procedures requiring assistance completed. IV discontinued, intact, kl bleeding controlled, No redness/swelling at site. Pressure dressing applied. Administered Medications: 00:32 Drug: Famotidine PO 40 mg PO once Route: PO; kl 00:33 Drug: predniSONE PO 60 mg PO once Route: PO; kl Medication: 00:52 VIS not applicable for this client. kl Outcome: 00:42 Discharge ordered by . sp4 00:51 Discharged to home ambulatory, kl 00:51 Condition: good 00:51 Discharge instructions given to patient, Instructed on discharge instructions, follow up and referral plans. medication usage, Demonstrated understanding of instructions, follow-up care, medications, Prescriptions given X 2, 00:52 Patient left the ED. kl Signatures: Ines Jaimes FNP-C FNP-Britney Aparicio, RN RN kl Andry Oropeza MD MD sp4 Nayely Partida Belinda RN RN br2
[2024-11-01 00:56] VITALS: TEMP 98.6; O2SAT 100
[2024-11-01 00:57] VITALS: BP 118/69
== END 2024-11-01 00:52 | disposition home or self-care (01) ==
LOC: ER 00:02
DX: L50.0 Allergic urticaria (principal); T78.40XA Allergy, unspecified, initial encounter
CPT/HCPCS: J7512

== ENCOUNTER 2024-11-26 19:09 | Emergency (ER) | payer SELFPAY ==
--- OUTSIDE RECORDS SUMMARY | 2024-11-26 19:24 | XMS REPORT | Continuity of Care Document ---
Author Name Unknown Address [address] [place] [address] [facility] Address 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 Role Phone CATALINA STAPLETON Primary Care Physician Unavailab Jama Muniz Attending Clinician [phone] Unknown, Attending Attending Clinician Unavailab JAMA Wing Attending Clinician Unavailable Blaire Tapia RN Attending Clinician UnavailCATALINA Zheng Attending Clinician Unavailable Reyes Hampton Attending Clinician + Monty Stringer Attending Clinician [phone] Unknown, Attending Attending Clinician Unavailab MONTY Oviedo Attending Clinician Unavailable Catalina Lacy Attending Clinician [phone] Doctor Unassigned, Dennis Acres Attending Clinician U navailable Lab, Ang - Db Attending Clinician Unavailable CAPRICE STOVER Attending Clinician Unavailable Caprice Cruz Attending Clinician [phone] Zoe Goodman CNM Attending Clinician REYES RICHARDS Attending Clinician Unavail able ZOE GOODMAN Attending Clinician Unavaila JANETTE Campoverde Attending Clinician Unavailable Visit, [facility] Nurse Attending Clinician Unava hailey Smith RN, Alma Delia Tinsley Attending Clinician Unavailab EMI Richey Attending Clinician Unavailable Britt RIVERA, Emi Attending Clinician [phone] Bharti Diaz MD Attending Clinician [phone] Bulmaro Newberry MD Attending Clinician [phone] Rohith Choudhury Attending Clinician [phone] SHANNAN VIRK Attending Clinician Unavailable Risk, [facility] Attending Clinician Unav ailable Shannan Whitney Attending Clinician [phone] HANNAH DANG Attending Clinician Unavailable HANNAH DANG Attending Clinician Unavailable Alton RIVERA, Hannah Martinez Attending Clinician + [phone] Avril RN, Velia Martinez Attending Clinician Unavailable Lorena Gleason RN Attending Clinician Unavailabl e Ultrasound, [facility] Attending Clinician Unavaila BETTIE Ty Attending Clinician UnavaBETTIE Emanuel Attending Clinician Merlyn Tan RN, Toshia Attending Clinician Unavailabl Jose Eng MD Attending Clinician [phone] Jayde Lopez RN Attending Clinician Hannah vailable [facility], [facility] Attending Clinician Unavailable Alexa Watkins MD Attending Clinician [phone] ALEXA WATKINS Attending Clinician Unavailable ALEXA WATKINS Attending Clinician Unavailable 4, [facility] Attending Clinician Unavaila KAREN Hernández Attending Clinician Unavailab Karen Monroe DO Attending Clinician [phone] Lawson PORTILLO, Fermin Unger Attending Clinician Unavailabl KAYLENE Wiggins Attending Clinician Unavailable Kaylene Karimi Attending Clinician [phone] JOE GLORIA Attending Clinician Unavailable Anum Toledo Attending Clinician [phone] ANUM GUERRA Attending Clinician Unavailabl e Provider, [facility] Attending Clinician Unavailable CHRISTINE PENA Attending Clinician Unavailable Jean CAT OPERATOR, Christine Attending Clinician [phone] Kena CAT OPERATOR, Britney Vasquez Attending Clinician + [phone] Omaghomi CAT OPERATOR, Ciarra Attending Clinician [phone] HERNANDEZ, MARSHALLSHAD Unger Attending Clinician Unavailab louisa Hernandez CAT OPERATOR, Nicaprecious Unger Attending Clinician [phone] BRUCE CALLEJAS Attending Clinician Unavailable Trimester, [facility] Res-1st Attending Clinician Unavailable Britta RIVERA, Bruce Attending Clinician [phone] EUN SANTOS Attending Clinician Unavailable Tom RIVERA, Eun Attending Clinician +[phone] JAKE KOCH III Attending Clinician Unavailabl HERMELINDO Wetzel Attending Clinician Unavailabl Josee Saab Attending Clinician + [phone] Alina RIVERA, Sarika Jolly Attending Clinician [phone] TIMA HERRING K.H. Attending Clinician Unavailsalazar Wilson RN, Eloisa Lincoln Attending Clinician Unavailab louisa Walton, [facility] Attending Clinician Unavailab louisa Ackerman MD, Rashel Leone Attending Clinician + Subhash PORTILLO, Shae Attending Clinician Unavailable Zac RIVERA, Tima K.H. Attending Clinician [phone] Gretchen Chavez MD, Tyler Attending Clinician + Provider, [facility] Attending Clinician Un available Shay MI, Cristian Attending Clinician + [phone] CRISTIAN DAY Attending Clinician Unavailable 2, [facility] Attending Clinician Unavailsalazar alexander [facility] Attending Clinician Shani Walsh MD, Ran Unger Attending Clinician + 2 Lab, [facility] Attending Clinician Unavailable 1, [facility] Attending Clinician Unavailsalazar ROJASP, Aleyda Attending Clinician [phone] Luis Eduardo RIVERA, Rebecca Haines Attending Clinician + Provider, [facility] [place] Attending Clinician Hannah billy Gonzalez [facility] Attending Clinician [phone] Ezra RN, Shannan Watson Attending Clinician Unavailsalazar Dorsey RN, Kaylene Arroyo Attending Clinician UnavailAmy Zhang DO Attending Clinician [phone] Taj RIVERA, Swati Gonzalez Attending Clinician [phone] SARIKA FULLER Attending Clinician Unavailable TYLER MALDONADO Attending Clinician Unagraham Cortes RN, Karina Martinez Attending Clinician Unavail able CUONG ZAPATA Attending Clinician Unavailable DEVIN MATHEW Attending Clinician Unavailable HANNAH DANG Admitting Clinician Unavailable SARIKA FULLER Admitting Clinician Unavailable EMI JURADO Admitting Clinician Unavailable Britt RIVERA, Emi Admitting Clinician +[phone] Hannah Dang MD Admitting Clinician +[phone] BETTIE GONZALEZ Admitting Clinician EUN Parks Admitting Clinician Unavailable Sarika Fuller MD Admitting Clinician +[phone] Rebecca Hoff MD Admitting Clinician + Taj RIVERA, Swati Gonzalez Admitting Clinician +[phone] CUONG ZAPATA Admitting Clinician Unavailable Payers Payer Name Policy Type Policy Number Effective Date Expirati on Date Source [employer] [id number] 2019 00:00:00 [employer] [id number] 2019 00:00:00 Problems Condition Name Condition Details Condition Category Status Onset Date Resolution Date Last Treatment Date Treating Clinician Comments Source Anxiety and depression Anxiety and depression Disease Active 01-04 00:00: 00 [facility] Acute vaginitis Acute vaginitis Disease Active 01-04 00:00: 00 [facility] Other general counseling and advice for contracept john management Other general counseling and advice for contracept john management Disease Active 11-01 00:00: 00 [facility] Need for HPV vaccinatio n Need for HPV vaccinatio n Disease Active 3-26 00:00: 00 [facility] related nausea, antepartum related nausea, antepartum Disease Active 7-06 00:00: 00 [facility] Declined flu vaccine Declined flu vaccine Disease Active 2019-08 0- 00:00: 00 [facility] History of gestationa l hypertensi on History of gestationa l hypertensi on Disease Active 2019-08 0 00:00: 00 [facility] Anxiety Anxiety Disease Active 2019-08 0 00:00: 00 [facility] Obesity affecting Obesity affecting Disease Active 2018-08 0 00:00: 00 [facility] Lower abdominal pain Lower abdominal pain Active Diagnosis 08/30/2018 eCW: [facility] Practice Diagnosis Active 2018-08-30 05:15:14 Elisa Seals Encounter for screening Encounter for screening Active Diagnosis 08/30/2018 eCW: [facility] Practice Diagnosis Active 2018-08-30 05:15:14 Elisa Seals Leukocytos is, unspecifie d type Leukocytos is, unspecifie d type Active Problem 09/07/2018 eCW: [facility] Practice Problem Active 2018-09-07 05:10:56 Elisa Seals Single delivery by section Single delivery by section Disease Resolve d 0 2-14 00:00: 00 2023-11-02 00:00:00 2023-11-02 11:16:24 [facility] Multiparit y Multiparit y Disease Resolve d 0 1-03 00:00: 00 2023-11-02 00:00:00 2023-11-02 11:17:15 [facility] 37 weeks gestation of 37 weeks gestation of Disease Resolve d 2023-0 2-07 00:00: 00 2023-09-22 00:00:00 2023-09-22 16:31:29 [facility] Decreased movement affecting management of in third trimester, not applicable or unspecifie d fetus Decreased movement affecting management of in third trimester, not applicable or unspecifie d fetus Disease Resolve d 2024-0 2-07 00:00: 00 2023-09-22 00:00:00 2023-09-22 16:31:30 [facility] Headache in , antepartum , third trimester Headache in , antepartum , third trimester Disease Resolve d 2023-0 2-07 00:00: 00 2023-09-22 00:00:00 2023-09-22 16:31:33 [facility] 36 weeks gestation of 36 weeks gestation of Disease Resolve d 2023-0 2-02 00:00: 00 2023-09-22 00:00:00 2023-09-22 16:31:37 [facility] Supervisio n of high-risk Supervisio n of high-risk Disease Resolve d 0 1-03 00:00: 00 2023-09-22 00:00:00 2023-09-22 16:31:49 [facility] Urinary tract infection in mother during second trimester of Urinary tract infection in mother during second trimester of Disease Resolve d 2022-1 0-25 00:00: 00 2023-09-22 00:00:00 2023-09-22 16:31:51 [facility] GBS (group B streptococ cus) UTI complicati ng GBS (group B streptococ cus) UTI complicati ng Disease Resolve d 2022-0 8-07 00:00: 00 2023-09-22 00:00:00 2023-09-22 16:31:32 [facility] History of miscarriag e, currently History of miscarriag e, currently Disease Resolve d 2022-0 7-06 00:00: 00 2023-09-22 00:00:00 2023-09-22 16:31:46 [facility] Maternal varicella, non-immune Maternal varicella, non-immune Disease Resolve d 2019-08 0-21 00:00: 00 2023-09-22 00:00:00 2023-09-22 16:31:34 Overview: Formattin g of this note might be different from the original. Address pp [facility] History of pre-eclamp amelia in prior , currently History of pre-eclamp amelia in prior , currently Disease Resolve d 2019-08 0-20 00:00: 00 2023-09-22 00:00:00 2023-09-22 16:31:47 [facility] Anxiety during Anxiety during Disease Resolve d 2019-08 0-20 00:00: 00 2023-09-22 00:00:00 2023-09-22 16:31:42 [facility] Anemia of mother in , antepartum Anemia of mother in , antepartum Disease Resolve d 2019- 4-01 00:00: 00 2023-09-22 00:00:00 2023-09-22 16:31:40 [facility] Obesity during Obesity during Disease Resolve d 2018-08 0-28 00:00: 00 2023-09-22 00:00:00 2023-09-22 16:31:36 [facility] Nausea and vomiting during Nausea and vomiting during Disease Resolve d 7-06 00:00: 00 2023-05-05 00:00:00 2023-05-05 14:50:39 [facility] Nausea and vomiting during Nausea and vomiting during Disease Resolve d 0 7-06 00:00: 00 2023-05-05 00:00:00 2023-05-05 14:50:39 [facility] examinatio n or test, negative result examinatio n or test, negative result Disease Resolve d 0 5-02 00:00: 00 2023-02-11 00:00:00 2023-02-11 08:32:46 [facility] SAB (spontaneo us ) SAB (spontaneo us ) Disease Resolve d 0 5-02 00:00: 00 2023-02-11 00:00:00 2023-02-11 08:32:48 [facility] Supervisio n of high-risk Supervisio n of high-risk Disease Resolve d 2019-08 0-20 00:00: 00 2023-02-11 00:00:00 2023-02-11 08:32:50 [facility] Multiparit y Multiparit y Disease Resolve d 2019-08 0-20 00:00: 00 2023-02-11 00:00:00 2023-02-11 08:32:42 [facility] Short interval between pregnancie s affecting , antepartum Short interval between pregnancie s affecting , antepartum Disease Resolve d 2019-08 0-20 00:00: 00 2023-02-11 00:00:00 2023-02-11 08:32:49 [facility] Obesity in Obesity in Disease Resolve d 2-01 00:00: 00 2023-02-11 00:00:00 2023-02-11 08:32:45 [facility] Anemia of mother in , condition Anemia of mother in , condition Disease Resolve d 6-05 00:00: 00 2021-10-21 00:00:00 2021-10-21 14:51:23 [facility] Single live Single live Disease Resolve d 0 6-05 00:00: 00 2021-10-21 00:00:00 2021-10-21 14:51:08 [facility] Obesity (BMI 30-39.9) Obesity (BMI 30-39.9) Disease Resolve d 6-03 00:00: 00 2021-10-21 00:00:00 2021-10-21 14:51:11 [facility] 38 weeks gestation of 38 weeks gestation of Disease Resolve d 0 6-03 00:00: 00 2021-10-21 00:00:00 2021-10-21 14:51:25 [facility] Decreased movement Decreased movement Disease Resolve d 0 6-03 00:00: 00 2021-10-21 00:00:00 2021-10-21 14:51:16 [facility] Indication for care or interventi on in labor or delivery-I OL d/t DFM Indication for care or interventi on in labor or delivery-I OL d/t DFM Disease Resolve d 0 6-03 00:00: 00 2021-10-21 00:00:00 2021-10-21 14:51:13 [facility] Circumvall ate placenta Circumvall ate placenta Disease Resolve d 2020-0 2-01 00:00: 00 2021-10-21 00:00:00 2021-10-21 14:51:18 [facility] Headache in Headache in Disease Resolve d 2020-0 1-15 00:00: 00 2021-10-21 00:00:00 2021-10-21 14:51:15 [facility] (spontaneo us vaginal delivery) (spontaneo us vaginal delivery) Disease Resolve d 2019-0 6-15 00:00: 00 2021-10-21 00:00:00 2021-10-21 14:51:04 [facility] Nausea and vomiting during Nausea and vomiting during Disease Resolve d 2020-0 5-28 00:00: 00 2021-01-09 00:00:00 2021-01-09 14:30:46 [facility] Nausea and vomiting during Nausea and vomiting during Disease Resolve d 2020-0 5-28 00:00: 00 2021-01-09 00:00:00 2021-01-09 14:30:46 [facility] Pain of round ligament during Pain of round ligament during Disease Resolve d 2020-0 5-03 00:00: 00 2021-01-09 00:00:00 2021-01-09 14:30:45 [facility] Routine follow-up Routine follow-up Disease Resolve d 2019-0 7-13 00:00: 00 2020-05-28 00:00:00 2020-05-28 13:43:04 [facility] Elevated blood pressure reading without diagnosis of hypertensi on Elevated blood pressure reading without diagnosis of hypertensi on Disease Resolve d 2019-0 6-12 00:00: 00 2020-05-28 00:00:00 2020-05-28 13:43:11 [facility] Severino Hick's contractio n Bent Hick's contractio n Disease Resolve d 2019-0 4-27 00:00: 00 2020-05-28 00:00:00 2020-05-28 13:43:17 [facility] Leukorrhea Leukorrhea Disease Resolve d 2019-0 3-02 00:00: 00 2020-05-28 00:00:00 2020-05-28 13:43:18 [facility] Susceptibl e to varicella (non-immun e), currently Susceptibl e to varicella (non-immun e), currently Disease Resolve d 2018-08 0-29 00:00: 00 2020-05-28 00:00:00 2020-05-28 13:43:16 [facility] Single liveborn Single liveborn Disease Resolve d 6-15 00:00: 00 2020-02-19 00:00:00 2020-02-19 16:25:36 [facility] 37 weeks gestation of 37 weeks gestation of Disease Resolve d 6-12 00:00: 00 2020-02-19 00:00:00 2020-02-19 16:25:38 [facility] Diarrhea during Diarrhea during Disease Resolve d 1-06 00:00: 00 2020-02-19 00:00:00 2020-02-19 16:25:43 [facility] Supervisio n of high-risk Supervisio n of high-risk Disease Resolve d 2018-08 0-28 00:00: 00 2020-02-19 00:00:00 2020-02-19 16:25:48 [facility] Tachycardi a, unspecifie d Tachycardi a, unspecifie d Disease Resolve d 2018-08 0-28 00:00: 00 2020-02-19 00:00:00 2020-02-19 16:25:45 [facility] Allergies, Adverse Reactions, Alerts Allergy Name Allergy Type Status Severity Reaction(s) Onset Date Inactive Date Treating Clinician Comments Source Amoxicil glenna Propensi ty to adverse reaction s Active Rash 03-05 00:00: 00 [facility] AMOXICIL GLENNA DRUG INGREDI Active High Rash 03-05 00:00: 00 [facility] N.KTani Montero Active Info Not Available 2017-08 00:00: 00 Elisa Seals Social History Social Habit Start Date Stop Date Quantity Comments Source ASSERTION 2023-01-13 00:00:00 [facility] Alcoholic beverage intake 2024-01-22 00:00:00 2024-01-22 00:00:00 0 /d [facility] History of Social function 2024-01-05 00:00:00 2024-01-05 00:00:00 [facility] Alcohol intake 2023-11-02 00:00:00 2023-11-02 00:00:00 0 /d [facility] Exposure to SARS-CoV-2 (event) 2022-12-20 00:00:00 2022-12-30 16:27:00 Not sure [facility] Tobacco use and exposure 2022-02-16 00:00:00 2022-02-16 00:00:00 Smokeless tobacco non-user [facility] Sex assigned at 2000 00:00:00 2000 00:00:00 [facility] Smoking Status Start Date Stop Date Source Never smoked tobacco [facility] Medications Ordered Medication Name Filled Medication Name Start Date Stop Date Current Medication? Ordering Clinician Indication Dosage Frequency Signature (SIG) Comments Components Source meclizine 12.5 mg tablet 2023-08 00:00: 00 07-10 05:59 :00 No [id number] 12.5mg Take 1 tablet by mouth 3 (three) times daily as needed for Dizziness or Nausea for up to [address] [facility] ketorolac (TORADOL) injection 30 mg 01-22 01:45: 00 01-22 01:03 :[id number] [facility] clindamycin 300 mg capsule 01-21 00:00: 00 02-01 04:59 :00 No [id number] 300mg Take 1 capsule by mouth 4 (four) times daily for [address] [facility] SERTraline 100 mg tablet 01-04 00:00: 00 Yes [id number] 200mg Take 2 tablets by mouth in the morning. [facility] fluconazole (DIFLUCAN) 150 mg tablet 01-04 00:00: 00 Yes [id number] Take 1 tab today and repeat [address] [facility] SERTRALINE 100 mg tablet - 00:00: 00 01-04 00:00 :00 No [id number] 109 100mg TAKE 1 TABLET BY MOUTH EVERY DAY IN THE MORNING [facility] famotidine (PEPCID AC) tablet 20 mg 2-10 02:00: 00 Yes 20mg 20 mg, Oral, BID, First dose on Wed09/17/23 at 2000, Until Discontinu ed, Routine [facility] proMETHazin e (PHENERGAN) tablet 25 mg 09-17 06:45: 00 09-17 06:35 :00 No 25mg 25 mg, Oral, ONCE, 1 dose, On Wed09/17/23 at 0045, Routine [facility] SERTraline (ZOLOFT) tablet 100 mg 09-17 05:45: 00 Yes 100mg 100 mg, Oral, DAILY, First dose (after last modificati on) on Wed09/16/23 at 2345, Until Discontinu ed, Routine [facility] [id number]-[id number] fum-folic () 27 mg iron- 1 mg folic tablet 09-17 00:00: 00 11-01 00:00 :00 No [id number] 1{tbl} Take 1 tablet by mouth in the morning. [facility] docusate 100 mg capsule 09-17 00:00: 00 11-01 00:00 :00 No [id number] 200mg Take 2 capsules by mouth once daily as needed for Constipati on. [facility] ferrous sulfate 325 mg (65 mg iron) tablet 09-17 00:00: 00 11-01 00:00 :00 No [id number] 325mg Take 1 tablet by mouth in the morning. [facility] ibuprofen 600 mg tablet 09-17 00:00: 00 11-01 00:00 :00 No [id number] 600mg Take 1 tablet by mouth every 6 (six) hours as needed (Pain). Take with food or milk. [facility] HYDROcodone -acetaminop hen 5-325 mg tablet 09-17 00:00: 00 09-25 05:59 :00 No [id number] 1{tbl} Take 1 tablet by mouth every 6 (six) hours as needed (Pain scale above 4) for up to 7 days. Do not exceed 3 grams of acetaminop hen in 24 hours. Indication s: acute pain [facility] ibuprofen (IBU) tablet 800 mg 09-16 17:45: 00 Yes 800mg 800 mg, Oral, Q8HA1, First dose on Janeth 09/16/23 at 1145, Until Discontinu ed, Routine [facility] acetaminoph en (TYLENOL) tablet 1,000 mg 09-16 16:00: 00 Yes 1000mg 1,000 mg, Oral, Q8H, First dose on Janeth 09/16/23 at 1000, Until Discontinu ed, Routine [facility] rho(D) immune globulin (RHOGAM) syringe 300 mcg 09-16 15:49: 41 Yes 300ug 300 mcg, Intramuscu lar, ONCE, For 1 dose, Conditiona l, Routine [facility] oxyCODONE immediate release tablet 5 mg 09-16 15:49: 37 Yes 5mg 5 mg, Oral, Q6HPRN, Starting on Janeth 09/16/23 at 0949, Until Discontinu ed, Routine, Pain (scale 7-10)
F aculty member approving Restricted medication : BHARTI DIAZ [facility] diphenhydrA MINE (BENADRYL) injection 25 mg 09-16 15:49: 37 Yes 25mg 25 mg, Slow IV Push, Q6HPRN, Starting on Janeth 09/16/23 at 0949, Until Discontinu ed, Routine, Itching [facility] diphenhydrA MINE (BENADRYL) tablet 25 mg 09-16 15:49: 37 Yes 25mg 25 mg, Oral, Q6HPRN, Starting on Janeth 09/16/23 at 0949, Until Discontinu ed, Routine, Sleep, Itching [facility] ondansetron (ZOFRAN (PF)) injection 4 mg 09-16 15:49: 37 Yes 4mg 4 mg, Slow IV Push, Q8HPRN, Starting on Janeth 09/16/23 at 0949, Until Discontinu ed, Routine, Nausea and Vomiting (N/V) [facility] bisacodyL (DULCOLAX) suppository 10 mg 09-16 15:49: 37 Yes 10mg 10 mg, Rectal, QDAILYPRN, Starting on Wed09/16/23 at 0949, Until Discontinu ed, Routine, Constipati on [facility] simethicone (GAS RELIEF (SIMETHICON E)) chewable tablet 160 mg 09-16 15:49: 37 Yes 160mg 160 mg, Oral, PC+HSPRN, Starting on Wed09/16/23 at 0949, Until Discontinu ed, Routine, Gas [facility] docusate (COLACE) capsule 200 mg 09-16 15:49: 37 Yes 200mg 200 mg, Oral, QDAILYPRN, Starting on Wed09/16/23 at 0949, Until Discontinu ed, Routine, Constipati on [facility] magnesium hydroxide (MILK OF MAGNESIA) 400 mg/5 mL suspension 30 mL 09-16 15:49: 37 Yes 30mL 30 mL, Oral, QDAILYPRN, Starting on Wed09/16/23 at 0949, Until Discontinu ed, Routine, Constipati on [facility] lactated ringers IV infusion 1,000 mL 09-16 15:49: 37 Yes 1000mL at 125 mL/hr, 1,000 mL, IV Infusion, PRN, 1 dose, Starting on Wed09/16/23 at 0949, Until Discontinu ed, Routine [facility] ketorolac (TORADOL) injection 30 mg 2023-09-16 13:45: 00 09-16 13:21 :00 No 30mg 30 mg, Slow IV Push, ONCE, 1 dose, On Janeth 09/16/23 at 0745, Routine, PACU [facility] acetaminoph en (OFIRMEV) IV piggyback 1,000 mg 09-16 13:15: 00 09-16 13:35 :00 No 1000mg 1,000 mg, IV Piggyback, at 400 mL/hr Administer over 15 Minutes, ONCE, 1 dose, On Janeth 09/16/23 at 0715, Routine, PACU
In dication: Strict NPO and unable to tolerate oral medication s
Is the patient strict NPO and unable to tolerate oral medication s? Yes [facility] morpHINE (2 mg/mL) injection 4 mg 09-16 13:08: 08 Yes 4mg 4 mg, Slow IV Push, Q5MIN PRN, 2 doses, Starting on Janeth 09/16/23 at 0708, Until Discontinu ed, Routine, Pain (scale 7-10), PACU [facility] FENTanyl PF (SUBLIMAZE (PF)) injection 25 mcg 09-16 13:08: 08 Yes 25ug 25 mcg, Slow IV Push, Q5MIN PRN, 4 doses, Starting on Janeth 09/16/23 at 0708, Until Discontinu ed, Routine, Pain (scale 4-6), PACU [facility] ondansetron (ZOFRAN (PF)) injection 4 mg 09-16 13:08: 08 09-16 15:13 :00 No 4mg 4 mg, Slow IV Push, PRN, 1 dose, Starting on Janeth 09/16/23 at 0708, Until Discontinu ed, Routine, Nausea and Vomiting (N/V), [facility] morpHINE PF (DURAMORPH- PF) injection 09-16 12:45: 00 09-16 13:04 :50 No Epidural, ONCE INTRA PROCEDURE, Starting on Janeth 09/16/23 at 0645, Until Janeth 09/16/23 at 0704, Routine, Intra-op [facility] phenylephri ne (VAZCULEP) injection 09-16 12:38: 00 09-16 13:04 :50 No Intravenou s, ONCE INTRA PROCEDURE, Starting on Janeth 09/16/23 at 0638, Until Janeth 24 at 0704, Routine, Intra-op [facility] FENTanyl PF (SUBLIMAZE (PF)) injection 09-16 12:24: 00 09-16 13:04 :50 No Epidural, ONCE INTRA PROCEDURE, Starting on Janeth 09/16/23 at 0624, Until Discontinu ed, Routine, Intra-op [facility] oxytocin (PITOCIN) 30 units in NS 500 mL IV infusion 09-16 12:17: 00 09-16 13:04 :50 No IV Infusion, CONTINUOUS PRN, Starting on Janeth 09/16/23 at 0617, Until Janeth 09/16/23 at 0704, Routine, Intra-op [facility] lidocaine-e pinephrine (XYLOCAINE W/EPINEPHRI NE) 2 %-1:200,000 injection 09-16 12:11: 00 09-16 13:04 :50 No Intravenou s, ONCE INTRA PROCEDURE, Starting on Janeth 09/16/23 at 0611, Until Discontinu ed, Routine, Intra-op [facility] lactated ringers IV infusion 09-16 11:55: 00 09-16 13:04 :50 No IV Infusion, CONTINUOUS PRN, Starting on Janeth 24 at 0555, Until Discontinu ed, Routine, Intra-op [facility] lactated ringers IV infusion 500 mL 09-16 08:00: 00 09-16 07:26 :29 No 500mL at 999 mL/hr, 500 mL, IV Infusion, ONCE, 1 dose, On Janeth 24 at 0200, Routine [facility] ropivacaine 0.2 % (NAROPIN (PF)) epidural infusion 09-16 07:50: 00 09-16 13:04 :50 No Epidural, CONTINUOUS PRN, Starting on Janeth 09/16/23 at 0150, Until Discontinu ed, Routine, Intra-op [facility] lidocaine-e pinephrine (XYLOCAINE W/EPINEPHRI NE) 1.5 %-1:200,000 injection 09-16 07:47: 00 09-16 13:04 :50 No Intraderma l, ONCE INTRA PROCEDURE, Starting on Janeth 09/16/23 at 0147, Until Discontinu ed, Routine, Intra-op [facility] sodium citrate-cit thanh acid (BICITRA) 500-334 mg/5 mL solution 30 mL 09-16 07:03: 24 09-16 07:26 :00 No 30mL 30 mL, Oral, PRE-PROCED URE ONCE, 1 dose, Starting on Janeth 09/16/23 at 0103, Until Janeth 09/16/23 at 0126, Routine, Surgery/Pr ocedure [facility] oxytocin (PITOCIN) 30 units in NS 500 mL IV infusion 09-15 22:09: 27 09-16 15:49 :40 No 2mU/min at 2-40 mL/hr, IV Infusion, TITRATE, Starting on Wed09/15/23 at 1609, Until Janeth 09/16/23 at 0949[facility] 09-15 22:06: 08 09-16 15:49 :39 No 1000mL at 1-125 mL/hr, IV Infusion, TITRATE, Starting on Wed09/15/23 at 1606, Until Janeth 09/16/23 at 0949, Routine [facility] proCHLORper azine (COMPAZINE) tablet 10 mg 09-15 20:47: 00 09-15 20:58 :00 No 10mg 10 mg, Oral, ONCE, 1 dose, On Wed09/15/23 at 1500, [facility] proCHLORper azine (COMPAZINE) tablet 10 mg 09-11 02:30: 00 09-11 01:20 :00 No 10mg 10 mg, Oral, ONCE, 1 dose, On Wed09/10/23 at 2030, Routine [facility] metoclopram kee HCl (REGLAN) 10 mg in NaCl 0.9% (NS) piggyback 09-11 00:00: 00 Yes 10mg 10 mg, IV Piggyback, Q6H, First dose on Wed09/10/23 at 1800, Until Discontinu ed, [address] [facility] diphenhydrA MINE (BENADRYL) injection 25 mg 09-10 23:30: 00 09-11 00:43 :00 No 25mg 25 mg, Intravenou s, ONCE, 1 dose, On Wed09/10/23 at 1730, Routine [facility] lactated ringers IV infusion 500 mL 09-10 23:30: 09-10 22:59 :00 No 500mL at 999 mL/hr, 500 mL, Intravenou s, ONCE, 1 dose, On Wed09/10/23 at 1730, Routine [facility] ferrous sulfate 325 mg (65 mg iron) tablet 09-10 00:00: 00 09-17 00:00 :00 No [id number] 325mg Take 1 tablet by mouth in the morning and 1 tablet in the evening. [facility] ascorbic acid, vitamin C, 500 mg tablet 09-10 00:00: 00 09-17 00:00 :00 No [id number] 500mg Take 1 tablet by mouth in the morning and 1 tablet at noon and 1 tablet in the evening. [facility] fluconazole (DIFLUCAN) 150 mg tablet 08-11 00:00: 00 08-12 05:59 :00 No [id number] 150mg Take 1 tablet by mouth once now for [address] [facility] ondansetron (ZOFRAN) tablet 4 mg 2022-08 01:30: 00 08-03 01:04 :00 No 4mg 4 mg, Oral, ONCE, 1 dose, On Wed08/02/23 at 1930, Routine [facility] Iron Fum & P-FA-Vit B & C No.9 (INTEGRA PLUS) 125 mg iron- 1 mg Cap 2022-08 2-05 00:00: 00 09-17 00:00 :00 No [id number] 1{capsu le} Take 1 capsule by mouth in the morning. [facility] fluconazole (DIFLUCAN) 150 mg tablet 05-05 00:00: 00 05-06 04:59 :00 No [id number] 150mg Take 1 tablet by mouth once now for [address] [facility] fluconazole (DIFLUCAN) 150 mg tablet 04-22 00:00: 00 04-23 04:59 :00 No [id number] 150mg Take 1 tablet by mouth once now for [address] [facility] cephALEXin (KEFLEX) 500 mg capsule 04-19 00:00: 00 04-30 04:59 :00 No [id number] 500mg Take 1 capsule by mouth 4 (four) times daily for [address] [facility] SERTraline 100 mg tablet 04-08 00:00: 00 11-28 00:00 :00 No [id number] 109 100mg Take 1 tablet by mouth in the morning. [facility] ondansetron 4 mg disintegrat ing tablet 04-08 00:00: 00 08-11 00:00 :00 No [id number] 4mg Take 1 tablet by mouth every 8 (eight) hours as needed for Nausea and Vomiting (N/V). [facility] aspirin 81 mg EC tablet 03-24 00:00: 00 09-17 00:00 :00 No [id number] 81mg Take 1 tablet by mouth in the morning. [facility] ondansetron 4 mg disintegrat ing tablet 03-24 00:00: 00 04-08 00:00 :00 No [id number] 4mg Take 1 tablet by mouth every 8 (eight) hours as needed for Nausea and Vomiting (N/V). [facility] cephALEXin (KEFLEX) 500 mg capsule 03-15 00:00: 00 03-26 04:59 :00 No [id number] 500mg Take 1 capsule by mouth 4 (four) times daily for [address] [facility] proMETHazin e 25 mg tablet 03-11 00:00: 00 09-17 00:00 :00 No [id number] 25mg Take 1 tablet by mouth every 4 (four) hours as needed for Nausea and Vomiting (N/V). [facility] ondansetron (ZOFRAN-ODT ) disintegrat ing tablet 4 mg 03-02 02:15: 00 03-02 01:17 :00 No 4mg 4 mg, Oral, ONCE, 1 dose, On Wed03/01/23 at 2115, Routine [facility] SERTraline (ZOLOFT) tablet 50 mg 03-02 01:30: 00 03-02 01:17 :00 No 50mg 50 mg, Oral, ONCE, 1 dose, On Wed03/01/23 at 2030, [facility] SERTraline (ZOLOFT) 50 mg tablet 03-02 00:00: 00 04-08 00:00 :00 No [id number] 109 50mg Take 1 tablet by mouth in the morning. [facility] ondansetron 4 mg disintegrat ing tablet 03-01 00:00: 00 03-24 00:00 :00 No [id number] 4mg Take 1 tablet by mouth every 8 (eight) hours as needed for Nausea and Vomiting (N/V). [facility] SERTraline 50 mg tablet 03-01 00:00: 00 03-01 00:00 :00 No [id number] 50mg Take 1 tablet by mouth in the morning. [facility] fluconazole (DIFLUCAN) 150 mg tablet 12-30 00:00: 00 12-31 04:59 :00 No [id number] 150mg Take 1 tablet by mouth once now for [address] [facility] SERTraline (ZOLOFT) 50 mg tablet 5- 00:00: 00 03-02 00:00 :00 No [id number] 50mg Take 1 tablet by mouth in the morning. [facility] SERTraline (ZOLOFT) 50 mg tablet 2021-08 2- 00:00: 00 12-25 00:00 :00 No [id number] 50mg Take 1 tablet by mouth in the morning. [facility] busPIRone 10 mg tablet 2021-08- 00:00: 00 09-07 05:59 :00 No [id number] 10mg Take 1 tablet by mouth 2 (two) times daily as needed (anxiety) for up to [address] [facility] azithromyci n 250 mg tablet 2021-08 0-10 00:00: 00 12-30 00:00 :00 No [id number] 250mg Z-Chikis = 500 mg day 1, then 250 mg days [address] [facility] SERTraline (ZOLOFT) 50 mg tablet 9- 00:00: 00 08-07 00:00 :00 No [id number] 50mg Take 1 tablet by mouth in the morning. [facility] SERTraline (ZOLOFT) 50 mg tablet 7- 00:00: 00 Yes [id number] 50mg Take 1 tablet by mouth in the morning. [facility] busPIRone 10 mg tablet 7-11 00:00: 00 03-19 04:59 :00 No [id number] 10mg Take 1 tablet by mouth 2 (two) times daily as needed (anxiety) for up to [address] [facility] methylPREDN ISolone (MEDROL, CHIKIS,) 4 mg tablets 6-10 00:00: 00 02-11 00:00 :00 No [id number] Take by mouth SEE-INSTRU CTIONS. follow package directions [facility] fluconazole (DIFLUCAN) 150 mg tablet 5-06 00:00: 00 05-18 00:00 :00 No [id number] Take one pill now and repeat in [address] [facility] multivitami n ( VITAMIN) tablet 3-15 00:00: 00 02-11 00:00 :00 No [id number] 1{tbl} Take 1 tablet by mouth daily. [facility] multivitami n ( VITAMIN) tablet 3-15 00:00: 00 02-11 00:00 :00 No [id number] 1{tbl} Take 1 tablet by mouth daily. [facility] vitamin w/FA tablet 6-05 00:00: 00 02-11 00:00 :00 No [id number] 1{tbl} Take 1 tablet by mouth daily. [facility] vitamin w/FA tablet 01-11 00:00: 00 02-11 00:00 :00 No [id number] 1{tbl} Take 1 tablet by mouth daily. [facility] Cipro 2017- 2-20 00:00: 00 Yes Janette Sullivan 1 tab(s) Elisa Seals Immunizations Ordered Immunization Name Filled Immunization Name Date Status Comments Source HPV9 2023-11-02 00:00:00 Completed TDAP 2023-08-11 00:00:00 Completed TDAP 2020-11-08 00:00:00 Completed [facility] TDAP 2020-11-08 00:00:00 Completed [facility] TDAP 2020-11-08 00:00:00 Completed [facility] TDAP 2020-11-08 00:00:00 Completed [facility] TDAP 2020-11-08 00:00:00 Completed [facility] TDAP 2020-11-08 00:00:00 Completed [facility] TDAP 2020-11-08 00:00:00 Completed [facility] TDAP 2020-11-08 00:00:00 Completed [facility] TDAP 2020-11-08 00:00:00 Completed [facility] TDAP 2020-11-08 00:00:00 Completed [facility] TDAP 2020-11-08 00:00:00 Completed [facility] TDAP 2020-11-08 00:00:00 Completed [facility] TDAP 2020-11-08 00:00:00 Completed [facility] TDAP 2020-11-08 00:00:00 Completed [facility] TDAP 2020-11-08 00:00:00 Completed [facility] TDAP 2020-11-08 00:00:00 Completed [facility] TDAP 2020-11-08 00:00:00 Completed [facility] TDAP 2020-11-08 00:00:00 Completed [facility] TDAP 2020-11-08 00:00:00 Completed [facility] TDAP 2020-11-08 00:00:00 Completed [facility] TDAP 2020-11-08 00:00:00 Completed [facility] TDAP 2020-11-08 00:00:00 Completed [facility] TDAP 2020-11-08 00:00:00 Completed [facility] TDAP 2020-11-08 00:00:00 Completed [facility] TDAP 2020-11-08 00:00:00 Completed [facility] TDAP 2020-11-08 00:00:00 Completed [facility] TDAP 2020-11-08 00:00:00 Completed [facility] TDAP 2020-11-08 00:00:00 Completed [facility] TDAP 2020-11-08 00:00:00 Completed [facility] TDAP 2019-11-21 00:00:00 Completed [facility] TDAP 2019-11-21 00:00:00 Completed [facility] TDAP 2019-11-21 00:00:00 Completed [facility] TDAP 2019-11-21 00:00:00 Completed [facility] TDAP 2019-11-21 00:00:00 Completed [facility] TDAP 2019-11-21 00:00:00 Completed [facility] TDAP 2019-11-21 00:00:00 Completed [facility] TDAP 2019-11-21 00:00:00 Completed [facility] TDAP 2019-11-21 00:00:00 Completed [facility] TDAP 2019-11-21 00:00:00 Completed [facility] TDAP 2019-11-21 00:00:00 Completed [facility] TDAP 2019-11-21 00:00:00 Completed [facility] TDAP 2019-11-21 00:00:00 Completed [facility] TDAP 2019-11-21 00:00:00 Completed [facility] TDAP 2019-11-21 00:00:00 Completed [facility] TDAP 2019-11-21 00:00:00 Completed [facility] TDAP 2019-11-21 00:00:00 Completed [facility] TDAP 2019-11-21 00:00:00 Completed [facility] TDAP 2019-11-21 00:00:00 Completed [facility] TDAP 2019-11-21 00:00:00 Completed [facility] TDAP 2019-11-21 00:00:00 Completed [facility] TDAP 2019-11-21 00:00:00 Completed [facility] TDAP 2019-11-21 00:00:00 Completed [facility] TDAP 2019-11-21 00:00:00 Completed [facility] TDAP 2019-11-21 00:00:00 Completed [facility] TDAP 2019-11-21 00:00:00 Completed [facility] TDAP 2019-11-21 00:00:00 Completed [facility] TDAP 2019-11-21 00:00:00 Completed [facility] TDAP 2019-11-21 00:00:00 Completed [facility] Influenza Virus Vaccine Quad .5 mL IM 6+ MO 2017-05-04 00:00:00 Completed [facility] Influenza Virus Vaccine Quad .5 mL IM 6+ MO 2017-05-04 00:00:00 Completed [facility] Influenza Virus Vaccine Quad .5 mL IM 6+ MO 2017-05-04 00:00:00 Completed [facility] Influenza Virus Vaccine Quad .5 mL IM 6+ MO 2017-05-04 00:00:00 Completed [facility] Influenza Virus Vaccine Quad .5 mL IM 6+ MO 2017-05-04 00:00:00 Completed [facility] Influenza Virus Vaccine Quad .5 mL IM 6+ MO 2017-05-04 00:00:00 Completed [facility] Influenza Virus Vaccine Quad .5 mL IM 6+ MO 2017-05-04 00:00:00 Completed [facility] Influenza Virus Vaccine Quad .5 mL IM 6+ MO 2017-05-04 00:00:00 Completed [facility] Influenza Virus Vaccine Quad .5 mL IM 6+ MO 2017-05-04 00:00:00 Completed [facility] Influenza Virus Vaccine Quad .5 mL IM 6+ MO 2017-05-04 00:00:00 Completed [facility] Influenza Virus Vaccine Quad .5 mL IM 6+ MO 2017-05-04 00:00:00 Completed [facility] Influenza Virus Vaccine Quad .5 mL IM 6+ MO 2017-05-04 00:00:00 Completed [facility] Influenza Virus Vaccine Quad .5 mL IM 6+ MO 2017-05-04 00:00:00 Completed [facility] Influenza Virus Vaccine Quad .5 mL IM 6+ MO 2017-05-04 00:00:00 Completed [facility] Influenza Virus Vaccine Quad .5 mL IM 6+ MO 2017-05-04 00:00:00 Completed [facility] Influenza Virus Vaccine Quad .5 mL IM 6+ MO 2017-05-04 00:00:00 Completed [facility] Influenza Virus Vaccine Quad .5 mL IM 6+ MO 2017-05-04 00:00:00 Completed [facility] Influenza Virus Vaccine Quad .5 mL IM 6+ MO 2017-05-04 00:00:00 Completed [facility] Influenza Virus Vaccine Quad .5 mL IM 6+ MO (FLUZONE/FLULAVAL/FL UARIX) 2017-05-04 00:00:00 Completed [facility] Influenza Virus Vaccine Quad .5 mL IM 6+ MO (FLUZONE/FLULAVAL/FL UARIX) 2017-05-04 00:00:00 Completed [facility] Influenza Virus Vaccine Quad .5 mL IM 6+ MO (FLUZONE/FLULAVAL/FL UARIX) 2017-05-04 00:00:00 Completed HPV 2014-07-18 00:00:00 Completed [facility] HPV 2014-07-18 00:00:00 Completed [facility] HPV 2014-07-18 00:00:00 Completed [facility] HPV 2014-07-18 00:00:00 Completed [facility] HPV 2014-07-18 00:00:00 Completed [facility] HPV 2014-07-18 00:00:00 Completed [facility] HPV 2014-07-18 00:00:00 Completed [facility] HPV 2014-07-18 00:00:00 Completed [facility] HPV 2014-07-18 00:00:00 Completed [facility] HPV 2014-07-18 00:00:00 Completed [facility] HPV 2014-07-18 00:00:00 Completed [facility] HPV 2014-07-18 00:00:00 Completed [facility] HPV 2014-07-18 00:00:00 Completed [facility] HPV 2014-07-18 00:00:00 Completed [facility] HPV 2014-07-18 00:00:00 Completed [facility] HPV 2014-07-18 00:00:00 Completed [facility] HPV 2014-07-18 00:00:00 Completed [facility] HPV 2014-07-18 00:00:00 Completed [facility] HPV 2014-07-18 00:00:00 Completed [facility] HPV 2014-07-18 00:00:00 Completed [facility] HPV 2014-07-18 00:00:00 Completed HPV 2014-04-30 00:00:00 Completed [facility] HPV 2014-04-30 00:00:00 Completed [facility] HPV 2014-04-30 00:00:00 Completed [facility] HPV 2014-04-30 00:00:00 Completed [facility] HPV 2014-04-30 00:00:00 Completed [facility] HPV 2014-04-30 00:00:00 Completed [facility] HPV 2014-04-30 00:00:00 Completed [facility] HPV 2014-04-30 00:00:00 Completed [facility] HPV 2014-04-30 00:00:00 Completed [facility] HPV 2014-04-30 00:00:00 Completed [facility] HPV 2014-04-30 00:00:00 Completed [facility] HPV 2014-04-30 00:00:00 Completed [facility] HPV 2014-04-30 00:00:00 Completed [facility] HPV 2014-04-30 00:00:00 Completed [facility] HPV 2014-04-30 00:00:00 Completed [facility] HPV 2014-04-30 00:00:00 Completed [facility] HPV 2014-04-30 00:00:00 Completed [facility] HPV 2014-04-30 00:00:00 Completed [facility] HPV 2014-04-30 00:00:00 Completed [facility] HPV 2014-04-30 00:00:00 Completed [facility] HPV 2014-04-30 00:00:00 Completed TDAP 2013-03-13 00:00:00 Completed [facility] TDAP 2013-03-13 00:00:00 Completed [facility] TDAP 2013-03-13 00:00:00 Completed [facility] TDAP 2013-03-13 00:00:00 Completed [facility] TDAP 2013-03-13 00:00:00 Completed [facility] TD[facility] 2013-03-13 00:00:00 Completed [facility] TDAP 2013-03-13 00:00:00 Completed [facility] TDAP 2013-03-13 00:00:00 Completed [facility] TDAP 2013-03-13 00:00:00 Completed [facility] TDAP 2013-03-13 00:00:00 Completed [facility] TDAP 2013-03-13 00:00:00 Completed [facility] TDAP 2013-03-13 00:00:00 Completed [facility] TDAP 2013-03-13 00:00:00 Completed [facility] TDAP 2013-03-13 00:00:00 Completed [facility] TDAP 2013-03-13 00:00:00 Completed [facility] TDAP 2013-03-13 00:00:00 Completed [facility] TDAP 2013-03-13 00:00:00 Completed [facility] TDAP 2013-03-13 00:00:00 Completed [facility] TDAP 2013-03-13 00:00:00 Completed [facility] TDAP 2013-03-13 00:00:00 Completed [facility] TDAP 2013-03-13 00:00:00 Completed [facility] TDAP 2013-03-13 00:00:00 Completed [facility] TDAP 2013-03-13 00:00:00 Completed [facility] TDAP 2013-03-13 00:00:00 Completed [facility] TDAP 2013-03-13 00:00:00 Completed [facility] TDAP 2013-03-13 00:00:00 Completed [facility] TDAP 2013-03-13 00:00:00 Completed [facility] TDAP 2013-03-13 00:00:00 Completed [facility] TDAP 2013-03-13 00:00:00 Completed [facility] Meningococcal Polysaccharide (groups A, C, Y and W-135) conjugate vaccine (MCV4P) 2011-12-04 00:00:00 Completed [facility] TDAP 2011-12-04 00:00:00 Completed [facility] Varicella (varivax)(chicken pox) 2011-12-04 00:00:00 Completed [facility] Meningococcal Polysaccharide (groups A, C, Y and W-135) conjugate vaccine (MCV4P) 2011-12-04 00:00:00 Completed [facility] TDAP 2011-12-04 00:00:00 Completed [facility] Varicella (varivax)(chicken pox) 2011-12-04 00:00:00 Completed [facility] Meningococcal Polysaccharide (groups A, C, Y and W-135) conjugate vaccine (MCV4P) 2011-12-04 00:00:00 Completed [facility] TDAP 2011-12-04 00:00:00 Completed [facility] Varicella (varivax)(chicken pox) 2011-12-04 00:00:00 Completed [facility] Meningococcal Polysaccharide (groups A, C, Y and W-135) conjugate vaccine (MCV4P) 2011-12-04 00:00:00 Completed [facility] TDAP 2011-12-04 00:00:00 Completed [facility] Varicella (varivax)(chicken pox) 2011-12-04 00:00:00 Completed [facility] Meningococcal Polysaccharide (groups A, C, Y and W-135) conjugate vaccine (MCV4P) 2011-12-04 00:00:00 Completed [facility] TDAP 2011-12-04 00:00:00 Completed [facility] Varicella (varivax)(chicken pox) 2011-12-04 00:00:00 Completed [facility] Meningococcal Polysaccharide (groups A, C, Y and W-135) conjugate vaccine (MCV4P) 2011-12-04 00:00:00 Completed [facility] TDAP 2011-12-04 00:00:00 Completed [facility] Varicella (varivax)(chicken pox) 2011-12-04 00:00:00 Completed [facility] Meningococcal Polysaccharide (groups A, C, Y and W-135) conjugate vaccine (MCV4P) 2011[facility]12-[facility] Varicella (varivax)(chicken pox) 2011-12-04 00:00:00 Completed [facility] Meningococcal Polysaccharide (groups A, C, Y and W-135) conjugate vaccine (MCV4P) 2011-12-04 00:00:00 Completed [facility] TDAP 2011-12-04 00:00:00 Completed [facility] Varicella (varivax)(chicken pox) 2011-12-04 00:00:00 Completed [facility] Meningococcal Polysaccharide (groups A, C, Y and W-135) conjugate vaccine (MCV4P) 2011-12-04 00:00:00 Completed [facility] TDAP 2011-12-04 00:00:00 Completed [facility] Varicella (varivax)(chicken pox) 2011-12-04 00:00:00 Completed [facility] Meningococcal Polysaccharide (groups A, C, Y and W-135) conjugate vaccine (MCV4P) 2011-12-04 00:00:00 Completed [facility] TDAP 2011-12-04 00:00:00 Completed [facility] Varicella (varivax)(chicken pox) 2011-12-04 00:00:00 Completed [facility] Meningococcal Polysaccharide (groups A, C, Y and W-135) conjugate vaccine (MCV4P) 2011-12-04 00:00:00 Completed [facility] TDAP 2011-12-04 00:00:00 Completed [facility] Varicella (varivax)(chicken pox) 2011-12-04 00:00:00 Completed [facility] Meningococcal Polysaccharide (groups A, C, Y and W-135) conjugate vaccine (MCV4P) 2011-12-04 00:00:00 Completed [facility] TDAP 2011-12-04 00:00:00 Completed [facility] Varicella (varivax)(chicken pox) 2011-12-04 00:00:00 Completed [facility] Meningococcal Polysaccharide (groups A, C, Y and W-135) conjugate vaccine (MCV4P) 2011-12-04 00:00:00 Completed [facility] TDAP 2011-12-04 00:00:00 Completed [facility] Varicella (varivax)(chicken pox) 2011-12-04 00:00:00 Completed [facility] Meningococcal Polysaccharide (groups A, C, Y and W-135) conjugate vaccine (MCV4P) 2011-12-04 00:00:00 Completed [facility] TDAP 2011-12-04 00:00:00 Completed [facility] Varicella (varivax)(chicken pox) 2011-12-04 00:00:00 Completed [facility] Meningococcal Polysaccharide (groups A, C, Y and W-135) conjugate vaccine (MCV4P) 2011-12-04 00:00:00 Completed [facility] TDAP 2011-12-04 00:00:00 Completed [facility] Varicella (varivax)(chicken pox) 2011-12-04 00:00:00 Completed [facility] Meningococcal Polysaccharide (groups A, C, Y and W-135) conjugate vaccine (MCV4P) 2011-12-04 00:00:00 Completed [facility] TDAP 2011-12-04 00:00:00 Completed [facility] Varicella (varivax)(chicken pox) 2011-12-04 00:00:00 Completed [facility] Meningococcal Polysaccharide (groups A, C, Y and W-135) conjugate vaccine (MCV4P) 2011-12-04 00:00:00 Completed [facility] TDAP 2011-12-04 00:00:00 Completed [facility] Varicella (varivax)(chicken pox) 2011-12-04 00:00:00 Completed [facility] Meningococcal Polysaccharide (groups A, C, Y and W-135) conjugate vaccine (MCV4P) 2011-12-04 00:00:00 Completed [facility] TDAP 2011-12-04 00:00:00 Completed [facility] Varicella (varivax)(chicken pox) 2011-12-04 00:00:00 Completed [facility] Meningococcal Polysaccharide (groups A, C, Y and W-135) conjugate vaccine (MCV4P) 2011-12-04 00:00:00 Completed [facility] TDAP 2011-12-04 00:00:00 Completed [facility] Varicella (varivax)(chicken pox) 2011-12-04 00:00:00 Completed [facility] Meningococcal Polysaccharide (groups A, C, Y and W-135) conjugate vaccine (MCV4P) 2011-12-04 00:00:00 Completed [facility] TDAP 2011-12-04 00:00:00 Completed [facility] Varicella (varivax)(chicken pox) 2011-12-04 00:00:00 Completed [facility] Meningococcal Polysaccharide (groups A, C, Y and W-135) conjugate vaccine (MCV4P) 2011-12-04 00:00:00 Completed TDAP 2011-12-04 00:00:00 Completed Varicella (varivax)(chicken pox) 2011-12-04 00:00:00 Completed DTaP, Unspecified Formulation 2003-04-02 00:00:00 Completed [facility] MMR 2003-04-02 00:00:00 Completed [facility] IPV 2003-04-02 00:00:00 Completed [facility] DTaP, Unspecified Formulation 2003-04-02 00:00:00 Completed [facility] MMR 2003-04-02 00:00:00 Completed [facility] IPV 2003-04-02 00:00:00 Completed [facility] DTaP, Unspecified Formulation 2003-04-02 00:00:00 Completed [facility] MMR 2003-04-02 00:00:00 Completed [facility] IPV 2003-04-02 00:00:00 Completed [facility] DTaP, Unspecified Formulation 2003-04-02 00:00:00 Completed [facility] MMR 2003-04-02 00:00:00 Completed [facility] IPV 2003-04-02 00:00:00 Completed [facility] DTaP, Unspecified Formulation 2003-04-02 00:00:00 Completed [facility] MMR 2003-04-02 00:00:00 Completed [facility] IPV 2003-04-02 00:00:00 Completed [facility] DTaP, Unspecified Formulation 2003-04-02 00:00:00 Completed [facility] MMR 2003-04-02 00:00:00 Completed [facility] IPV 2003-04-02 00:00:00 Completed [facility] DTaP, Unspecified Formulation 2003-04-02 00:00:00 Completed [facility] MMR 2003-04-02 00:00:00 Completed [facility] IPV 2003-04-02 00:00:00 Completed [facility] DTaP, Unspecified Formulation 2003-04-02 00:00:00 Completed [facility] MMR 2003-04-02 00:00:00 Completed [facility] IPV 2003-04-02 00:00:00 Completed [facility] DTaP, Unspecified Formulation 2003-04-02 00:00:00 Completed [facility] MMR 2003-04-02 00:00:00 Completed [facility] IPV 2003-04-02 00:00:00 Completed [facility] DTaP, Unspecified Formulation 2003-04-02 00:00:00 Completed [facility] MMR 2003-04-02 00:00:00 Completed [facility] IPV 2003-04-02 00:00:00 Completed [facility] DTaP, Unspecified Formulation 2003-04-02 00:00:00 Completed [facility] MMR 2003-04-02 00:00:00 Completed [facility] IPV 2003-04-02 00:00:00 Completed [facility] DTaP, Unspecified Formulation 2003-04-02 00:00:00 Completed [facility] MMR 2003-04-02 00:00:00 Completed [facility] IPV 2003-04-02 00:00:00 Completed [facility] DTaP, Unspecified Formulation 2003-04-02 00:00:00 Completed [facility] MMR 2003-04-02 00:00:00 Completed [facility] IPV 2003-04-02 00:00:00 Completed [facility] DTaP, Unspecified Formulation 2003-04-02 00:00:00 Completed [facility] MMR 2003-04-02 00:00:00 Completed [facility] IPV 2003-04-02 00:00:00 Completed [facility] DTaP, Unspecified Formulation 2003-04-02 00:00:00 Completed [facility] MMR 2003-04-02 00:00:00 Completed [facility] IPV 2003-04-02 00:00:00 Completed [facility] DTaP, Unspecified Formulation 2003-04-02 00:00:00 Completed [facility] MMR 2003-04-02 00:00:00 Completed [facility] IPV 2003-04-02 00:00:00 Completed [facility] DTaP, Unspecified Formulation 2003-04-02 00:00:00 Completed [facility] MMR 2003-04-02 00:00:00 Completed [facility] IPV 2003-04-02 00:00:00 Completed [facility] DTaP, Unspecified Formulation 2003-04-02 00:00:00 Completed [facility] MMR 2003-04-02 00:00:00 Completed [facility] IPV 2003-04-02 00:00:00 Completed [facility] DTaP, Unspecified Formulation 2003-04-02 00:00:00 Completed [facility] MMR 2003-04-02 00:00:00 Completed [facility] IPV 2003-04-02 00:00:00 Completed [facility] DTaP, Unspecified Formulation 2003-04-02 00:00:00 Completed [facility] MMR 2003-04-02 00:00:00 Completed [facility] IPV 2003-04-02 00:00:00 Completed [facility] DTaP, Unspecified Formulation 2003-04-02 00:00:00 Completed MMR 2003-04-02 00:00:00 Completed IPV 2003-04-02 00:00:00 Completed DTaP, Unspecified Formulation 2000-11-04 00:00:00 Completed [facility] DTaP, Unspecified Formulation 2000-11-04 00:00:00 Completed [facility] DTaP, Unspecified Formulation 2000-11-04 00:00:00 Completed [facility] DTaP, Unspecified Formulation 2000-11-04 00:00:00 Completed [facility] DTaP, Unspecified Formulation 2000-11-04 00:00:00 Completed [facility] DTaP, Unspecified Formulation 2000-11-04 00:00:00 Completed [facility] DTaP, Unspecified Formulation 2000-11-04 00:00:00 Completed [facility] DTaP, Unspecified Formulation 2000-11-04 00:00:00 Completed [facility] DTaP, Unspecified Formulation 2000-11-04 00:00:00 Completed [facility] DTaP, Unspecified Formulation 2000-11-04 00:00:00 Completed [facility] DTaP, Unspecified Formulation 2000-11-04 00:00:00 Completed [facility] DTaP, Unspecified Formulation 2000-11-04 00:00:00 Completed [facility] DTaP, Unspecified Formulation 2000-11-04 00:00:00 Completed [facility] DTaP, Unspecified Formulation 2000-11-04 00:00:00 Completed [facility] DTaP, Unspecified Formulation 2000-11-04 00:00:00 Completed [facility] DTaP, Unspecified Formulation 2000-11-04 00:00:00 Completed [facility] DTaP, Unspecified Formulation 2000-11-04 00:00:00 Completed [facility] DTaP, Unspecified Formulation 2000-11-04 00:00:00 Completed [facility] DTaP, Unspecified Formulation 2000-11-04 00:00:00 Completed [facility] DTaP, Unspecified Formulation 2000-11-04 00:00:00 Completed [facility] DTaP, Unspecified Formulation 2000-11-04 00:00:00 Completed Haemophilus influenzae type b vaccine, conjugate unspecified formulation 2000-06-09 00:00:00 Completed [facility] MMR 2000-06-09 00:00:00 Completed [facility] Haemophilus influenzae type b vaccine, conjugate unspecified formulation 2000-06-09 00:00:00 Completed [facility] MMR 2000-06-09 00:00:00 Completed [facility] Haemophilus influenzae type b vaccine, conjugate unspecified formulation 2000-06-09 00:00:00 Completed [facility] MMR 2000-06-09 00:00:00 Completed [facility] Haemophilus influenzae type b vaccine, conjugate unspecified formulation 2000-06-09 00:00:00 Completed [facility] MMR 2000-06-09 00:00:00 Completed [facility] Haemophilus influenzae type b vaccine, conjugate unspecified formulation 2000-06-09 00:00:00 Completed [facility] MMR 2000-06-09 00:00:00 Completed [facility] Haemophilus influenzae type b vaccine, conjugate unspecified formulation 2000-06-09 00:00:00 Completed [facility] MMR 2000-06-09 00:00:00 Completed [facility] Haemophilus influenzae type b vaccine, conjugate unspecified formulation 2000-06-09 00:00:00 Completed [facility] MMR 2000-06-09 00:00:00 Completed [facility] Haemophilus influenzae type b vaccine, conjugate unspecified formulation 2000-06-09 00:00:00 Completed [facility] MMR 2000-06-09 00:00:00 Completed [facility] Haemophilus influenzae type b vaccine, conjugate unspecified formulation 2000-06-09 00:00:00 Completed [facility] MMR 2000-06-09 00:00:00 Completed [facility] Haemophilus influenzae type b vaccine, conjugate unspecified formulation 2000-06-09 00:00:00 Completed [facility] MMR 2000-06-09 00:00:00 Completed [facility] Haemophilus influenzae type b vaccine, conjugate unspecified formulation 2000-06-09 00:00:00 Completed [facility] MMR 2000-06-09 00:00:00 Completed [facility] Haemophilus influenzae type b vaccine, conjugate unspecified formulation 2000-06-09 00:00:00 Completed [facility] MMR 2000-06-09 00:00:00 Completed [facility] Haemophilus influenzae type b vaccine, conjugate unspecified formulation 2000-06-09 00:00:00 Completed [facility] MMR 2000-06-09 00:00:00 Completed [facility] Haemophilus influenzae type b vaccine, conjugate unspecified formulation 2000-06-09 00:00:00 Completed [facility] MMR 2000-06-09 00:00:00 Completed [facility] Haemophilus influenzae type b vaccine, conjugate unspecified formulation 2000-06-09 00:00:00 Completed [facility] MMR 2000-06-09 00:00:00 Completed [facility] Haemophilus influenzae type b vaccine, conjugate unspecified formulation 2000-06-09 00:00:00 Completed [facility] MMR 2000-06-09 00:00:00 Completed [facility] Haemophilus influenzae type b vaccine, conjugate unspecified formulation 2000-06-09 00:00:00 Completed [facility] MMR 2000-06-09 00:00:00 Completed [facility] Haemophilus influenzae type b vaccine, conjugate unspecified formulation 2000-06-09 00:00:00 Completed [facility] MMR 2000-06-09 00:00:00 Completed [facility] Haemophilus influenzae type b vaccine, conjugate unspecified formulation 2000-06-09 00:00:00 Completed [facility] MMR 2000-06-09 00:00:00 Completed [facility] Haemophilus influenzae type b vaccine, conjugate unspecified formulation 2000-06-09 00:00:00 Completed [facility] MMR 2000-06-09 00:00:00 Completed [facility] Haemophilus influenzae type b vaccine, conjugate unspecified formulation 2000-06-09 00:00:00 Completed MMR 2000-06-09 00:00:00 Completed IPV 2000-03-23 00:00:00 Completed [facility] Varicella (varivax)(chicken pox) 2000-03-23 00:00:00 Completed [facility] IPV 2000-03-23 00:00:00 Completed [facility] Varicella (varivax)(chicken pox) 2000-03-23 00:00:00 Completed [facility] IPV 2000-03-23 00:00:00 Completed [facility] Varicella (varivax)(chicken pox) 2000-03-23 00:00:00 Completed [facility] IPV 2000-03-23 00:00:00 Completed [facility] Varicella (varivax)(chicken pox) 2000-03-23 00:00:00 Completed [facility] IPV 2000-03-23 00:00:00 Completed [facility] Varicella (varivax)(chicken pox) 2000-03-23 00:00:00 Completed [facility] IPV 2000-03-23 00:00:00 Completed [facility] Varicella (varivax)(chicken pox) 2000-03-23 00:00:00 Completed [facility] IPV 2000-03-23 00:00:00 Completed [facility] Varicella (varivax)(chicken pox) 2000-03-23 00:00:00 Completed [facility] IPV 2000-03-23 00:00:00 Completed [facility] Varicella (varivax)(chicken pox) 2000-03-23 00:00:00 Completed [facility] IPV 2000-03-23 00:00:00 Completed [facility] Varicella (varivax)(chicken pox) 2000-03-23 00:00:00 Completed [facility] IPV 2000-03-23 00:00:00 Completed [facility] Varicella (varivax)(chicken pox) 2000-03-23 00:00:00 Completed [facility] IPV 2000-03-23 00:00:00 Completed [facility] Varicella (varivax)(chicken pox) 2000-03-23 00:00:00 Completed [facility] IPV 2000-03-23 00:00:00 Completed [facility] Varicella (varivax)(chicken pox) 2000-03-23 00:00:00 Completed [facility] IPV 2000-03-23 00:00:00 Completed [facility] Varicella (varivax)(chicken pox) 2000-03-23 00:00:00 Completed [facility] IPV 2000-03-23 00:00:00 Completed [facility] Varicella (varivax)(chicken pox) 2000-03-23 00:00:00 Completed [facility] IPV 2000-03-23 00:00:00 Completed [facility] Varicella (varivax)(chicken pox) 2000-03-23 00:00:00 Completed [facility] IPV 2000-03-23 00:00:00 Completed [facility] Varicella (varivax)(chicken pox) 2000-03-23 00:00:00 Completed [facility] IPV 2000-03-23 00:00:00 Completed [facility] Varicella (varivax)(chicken pox) 2000-03-23 00:00:00 Completed [facility] IPV 2000-03-23 00:00:00 Completed [facility] Varicella (varivax)(chicken pox) 2000-03-23 00:00:00 Completed [facility] IPV 2000-03-23 00:00:00 Completed [facility] Varicella (varivax)(chicken pox) 2000-03-23 00:00:00 Completed [facility] IPV 2000-03-23 00:00:00 Completed [facility] Varicella (varivax)(chicken pox) 2000-03-23 00:00:00 Completed [facility] IPV 2000-03-23 00:00:00 Completed Varicella (varivax)(chicken pox) 2000-03-23 00:00:00 Completed Hep B, Adol or Pedi Dosage 1999 00:00:00 Completed [facility] Hep B, Adol or Pedi Dosage 1999 00:00:00 Completed [facility] Hep B, Adol or Pedi Dosage 1999 00:00:00 Completed [facility] Hep B, Adol or Pedi Dosage 1999 00:00:00 Completed [facility] Hep B, Adol or Pedi Dosage 1999 00:00:00 Completed [facility] Hep B, Adol or Pedi Dosage 1999 00:00:00 Completed [facility] Hep B, Adol or Pedi Dosage 1999 00:00:00 Completed [facility] Hep B, Adol or Pedi Dosage 1999 00:00:00 Completed [facility] Hep B, Adol or Pedi Dosage 1999 00:00:00 Completed [facility] Hep B, Adol or Pedi Dosage 1999 00:00:00 Completed [facility] Hep B, Adol or Pedi Dosage 1999 00:00:00 Completed [facility] Hep B, Adol or Pedi Dosage 1999 00:00:00 Completed [facility] Hep B, Adol or Pedi Dosage 1999 00:00:00 Completed [facility] Hep B, Adol or Pedi Dosage 1999 00:00:00 Completed [facility] Hep B, Adol or Pedi Dosage 1999 00:00:00 Completed [facility] Hep B, Adol or Pedi Dosage 1999 00:00:00 Completed [facility] Hep B, Adol or Pedi Dosage 1999 00:00:00 Completed [facility] Hep B, Adol or Pedi Dosage 1999 00:00:00 Completed [facility] Hep B, Adol or Pedi Dosage 1999 00:00:00 Completed [facility] Hep B, Adol or Pedi Dosage 1999 00:00:00 Completed [facility] Hep B, Adol or Pedi Dosage 1999 00:00:00 Completed DTaP, Unspecified Formulation 1999 00:00:00 Completed [facility] Hep B, Adol or Pedi Dosage 1999 00:00:00 Completed [facility] Haemophilus influenzae type b vaccine, conjugate unspecified formulation 1999 00:00:00 Completed [facility] DTaP, Unspecified Formulation 1999 00:00:00 Completed [facility] Hep B, Adol or Pedi Dosage 1999 00:00:00 Completed [facility] Haemophilus influenzae type b vaccine, conjugate unspecified formulation 1999 00:00:00 Completed [facility] DTaP, Unspecified Formulation 1999 00:00:00 Completed [facility] Hep B, Adol or Pedi Dosage 1999 00:00:00 Completed [facility] Haemophilus influenzae type b vaccine, conjugate unspecified formulation 1999 00:00:00 Completed [facility] DTaP, Unspecified Formulation 1999 00:00:00 Completed [facility] Hep B, Adol or Pedi Dosage 1999 00:00:00 Completed [facility] Haemophilus influenzae type b vaccine, conjugate unspecified formulation 1999 00:00:00 Completed [facility] DTaP, Unspecified Formulation 1999 00:00:00 Completed [facility] Hep B, Adol or Pedi Dosage 1999 00:00:00 Completed [facility] Haemophilus influenzae type b vaccine, conjugate unspecified formulation 1999 00:00:00 Completed [facility] DTaP, Unspecified Formulation 1999 00:00:00 Completed [facility] Hep B, Adol or Pedi Dosage 1999 00:00:00 Completed [facility] Haemophilus influenzae type b vaccine, conjugate unspecified formulation 1999 00:00:00 Completed [facility] DTaP, Unspecified Formulation 1999 00:00:00 Completed [facility] Hep B, Adol or Pedi Dosage 1999 00:00:00 Completed [facility] Haemophilus influenzae type b vaccine, conjugate unspecified formulation 1999 00:00:00 Completed [facility] DTaP, Unspecified Formulation 1999 00:00:00 Completed [facility] Hep B, Adol or Pedi Dosage 1999 00:00:00 Completed [facility] Haemophilus influenzae type b vaccine, conjugate unspecified formulation 1999 00:00:00 Completed [facility] DTaP, Unspecified Formulation 1999 00:00:00 Completed [facility] Hep B, Adol or Pedi Dosage 1999 00:00:00 Completed [facility] Haemophilus influenzae type b vaccine, conjugate unspecified formulation 1999 00:00:00 Completed [facility] DTaP, Unspecified Formulation 1999 00:00:00 Completed [facility] Hep B, Adol or Pedi Dosage 1999 00:00:00 Completed [facility] Haemophilus influenzae type b vaccine, conjugate unspecified formulation 1999 00:00:00 Completed [facility] DTaP, Unspecified Formulation 1999 00:00:00 Completed [facility] Hep B, Adol or Pedi Dosage 1999 00:00:00 Completed [facility] Haemophilus influenzae type b vaccine, conjugate unspecified formulation 1999 00:00:00 Completed [facility] DTaP, Unspecified Formulation 1999 00:00:00 Completed [facility] Hep B, Adol or Pedi Dosage 1999 00:00:00 Completed [facility] Haemophilus influenzae type b vaccine, conjugate unspecified formulation 1999 00:00:00 Completed [facility] DTaP, Unspecified Formulation 1999 00:00:00 Completed [facility] Hep B, Adol or Pedi Dosage 1999 00:00:00 Completed [facility] Haemophilus influenzae type b vaccine, conjugate unspecified formulation 1999 00:00:00 Completed [facility] DTaP, Unspecified Formulation 1999 00:00:00 Completed [facility] Hep B, Adol or Pedi Dosage 1999 00:00:00 Completed [facility] Haemophilus influenzae type b vaccine, conjugate unspecified formulation 1999 00:00:00 Completed [facility] DTaP, Unspecified Formulation 1999 00:00:00 Completed [facility] Hep B, Adol or Pedi Dosage 1999 00:00:00 Completed [facility] Haemophilus influenzae type b vaccine, conjugate unspecified formulation 1999 00:00:00 Completed [facility] DTaP, Unspecified Formulation 1999 00:00:00 Completed [facility] Hep B, Adol or Pedi Dosage 1999 00:00:00 Completed [facility] Haemophilus influenzae type b vaccine, conjugate unspecified formulation 1999 00:00:00 Completed [facility] DTaP, Unspecified Formulation 1999 00:00:00 Completed [facility] Hep B, Adol or Pedi Dosage 1999 00:00:00 Completed [facility] Haemophilus influenzae type b vaccine, conjugate unspecified formulation 1999 00:00:00 Completed [facility] DTaP, Unspecified Formulation 1999 00:00:00 Completed [facility] Hep B, Adol or Pedi Dosage 1999 00:00:00 Completed [facility] Haemophilus influenzae type b vaccine, conjugate unspecified formulation 1999 00:00:00 Completed [facility] DTaP, Unspecified Formulation 1999 00:00:00 Completed [facility] Hep B, Adol or Pedi Dosage 1999 00:00:00 Completed [facility] Haemophilus influenzae type b vaccine, conjugate unspecified formulation 1999 00:00:00 Completed [facility] DTaP, Unspecified Formulation 1999 00:00:00 Completed [facility] Hep B, Adol or Pedi Dosage 1999 00:00:00 Completed [facility] Haemophilus influenzae type b vaccine, conjugate unspecified formulation 1999 00:00:00 Completed [facility] DTaP, Unspecified Formulation 1999 00:00:00 Completed Hep B, Adol or Pedi Dosage 1999 00:00:00 Completed Haemophilus influenzae type b vaccine, conjugate unspecified formulation 1999 00:00:00 Completed DTaP, Unspecified Formulation 1999 00:00:00 Completed [facility] Haemophilus influenzae type b vaccine, conjugate unspecified formulation 1999 00:00:00 Completed [facility] IPV 1999 00:00:00 Completed [facility] DTaP, Unspecified Formulation 1999 00:00:00 Completed [facility] Haemophilus influenzae type b vaccine, conjugate unspecified formulation 1999 00:00:00 Completed [facility] IPV 1999 00:00:00 Completed [facility] DTaP, Unspecified Formulation 1999 00:00:00 Completed [facility] Haemophilus influenzae type b vaccine, conjugate unspecified formulation 1999 00:00:00 Completed [facility] IPV 1999 00:00:00 Completed [facility] DTaP, Unspecified Formulation 1999 00:00:00 Completed [facility] Haemophilus influenzae type b vaccine, conjugate unspecified formulation 1999 00:00:00 Completed [facility] IPV 1999 00:00:00 Completed [facility] DTaP, Unspecified Formulation 1999 00:00:00 Completed [facility] Haemophilus influenzae type b vaccine, conjugate unspecified formulation 1999 00:00:00 Completed [facility] IPV 1999 00:00:00 Completed [facility] DTaP, Unspecified Formulation 1999 00:00:00 Completed [facility] Haemophilus influenzae type b vaccine, conjugate unspecified formulation 1999 00:00:00 Completed [facility] IPV 1999 00:00:00 Completed [facility] DTaP, Unspecified Formulation 1999 00:00:00 Completed [facility] Haemophilus influenzae type b vaccine, conjugate unspecified formulation 1999 00:00:00 Completed [facility] IPV 1999 00:00:00 Completed [facility] DTaP, Unspecified Formulation 1999 00:00:00 Completed [facility] Haemophilus influenzae type b vaccine, conjugate unspecified formulation 1999 00:00:00 Completed [facility] IPV 1999 00:00:00 Completed [facility] DTaP, Unspecified Formulation 1999 00:00:00 Completed [facility] Haemophilus influenzae type b vaccine, conjugate unspecified formulation 1999 00:00:00 Completed [facility] IPV 1999 00:00:00 Completed [facility] DTaP, Unspecified Formulation 1999 00:00:00 Completed [facility] Haemophilus influenzae type b vaccine, conjugate unspecified formulation 1999 00:00:00 Completed [facility] IPV 1999 00:00:00 Completed [facility] DTaP, Unspecified Formulation 1999 00:00:00 Completed [facility] Haemophilus influenzae type b vaccine, conjugate unspecified formulation 1999 00:00:00 Completed [facility] IPV 1999 00:00:00 Completed [facility] DTaP, Unspecified Formulation 1999 00:00:00 Completed [facility] Haemophilus influenzae type b vaccine, conjugate unspecified formulation 1999 00:00:00 Completed [facility] IPV 1999 00:00:00 Completed [facility] DTaP, Unspecified Formulation 1999 00:00:00 Completed [facility] Haemophilus influenzae type b vaccine, conjugate unspecified formulation 1999 00:00:00 Completed [facility] IPV 1999 00:00:00 Completed [facility] DTaP, Unspecified Formulation 1999 00:00:00 Completed [facility] Haemophilus influenzae type b vaccine, conjugate unspecified formulation 1999 00:00:00 Completed [facility] IPV 1999 00:00:00 Completed [facility] DTaP, Unspecified Formulation 1999 00:00:00 Completed [facility] Haemophilus influenzae type b vaccine, conjugate unspecified formulation 1999 00:00:00 Completed [facility] IPV 1999 00:00:00 Completed [facility] DTaP, Unspecified Formulation 1999 00:00:00 Completed [facility] Haemophilus influenzae type b vaccine, conjugate unspecified formulation 1999 00:00:00 Completed [facility] IPV 1999 00:00:00 Completed [facility] DTaP, Unspecified Formulation 1999 00:00:00 Completed [facility] Haemophilus influenzae type b vaccine, conjugate unspecified formulation 1999 00:00:00 Completed [facility] IPV 1999 00:00:00 Completed [facility] DTaP, Unspecified Formulation 1999 00:00:00 Completed [facility] Haemophilus influenzae type b vaccine, conjugate unspecified formulation 1999 00:00:00 Completed [facility] IPV 1999 00:00:00 Completed [facility] DTaP, Unspecified Formulation 1999 00:00:00 Completed [facility] Haemophilus influenzae type b vaccine, conjugate unspecified formulation 1999 00:00:00 Completed [facility] IPV 1999 00:00:00 Completed [facility] DTaP, Unspecified Formulation 1999 00:00:00 Completed [facility] Haemophilus influenzae type b vaccine, conjugate unspecified formulation 1999 00:00:00 Completed [facility] IPV 1999 00:00:00 Completed [facility] DTaP, Unspecified Formulation 1999 00:00:00 Completed [facility] Haemophilus influenzae type b vaccine, conjugate unspecified formulation 1999 00:00:00 Completed IPV 1999 00:00:00 Completed IPV 1999 00:00:00 Completed [facility] IPV 1999 00:00:00 Completed [facility] IPV 1999 00:00:00 Completed [facility] IPV 1999 00:00:00 Completed [facility] IPV 1999 00:00:00 Completed [facility] IPV 1999 00:00:00 Completed [facility] IPV 1999 00:00:00 Completed [facility] IPV 1999 00:00:00 Completed [facility] IPV 1999 00:00:00 Completed [facility] IPV 1999 00:00:00 Completed [facility] IPV 1999 00:00:00 Completed [facility] IPV 1999 00:00:00 Completed [facility] IPV 1999 00:00:00 Completed [facility] IPV 1999 00:00:00 Completed [facility] IPV 1999 00:00:00 Completed [facility] IPV 1999 00:00:00 Completed [facility] IPV 1999 00:00:00 Completed [facility] IPV 1999 00:00:00 Completed [facility] IPV 1999 00:00:00 Completed [facility] IPV 1999 00:00:00 Completed [facility] IPV 1999 00:00:00 Completed TDAP Unknown Completed [facility] DTaP, Unspecified Formulation Unknown Completed [facility] Influenza Virus Vaccine Quad .5 mL IM 6+ MO (FLUZONE/FLULAVAL/FL UARIX) Unknown Completed [facility] Hep B, Adol or Pedi Dosage Unknown Completed [facility] Haemophilus influenzae type b vaccine, conjugate unspecified formulation Unknown Completed [facility] HPV Unknown Completed [facility] Meningococcal Polysaccharide (groups A, C, Y and W-135) conjugate vaccine (MCV4P) Unknown Completed [facility] MMR Unknown Completed [facility] IPV Unknown Completed [facility] Varicella (varivax)(chicken pox) Unknown Completed [facility] TDAP Unknown Completed [facility] DTaP, Unspecified Formulation Unknown Completed [facility] Influenza Virus Vaccine Quad .5 mL IM 6+ MO (FLUZONE/FLULAVAL/FL UARIX) Unknown Completed [facility] Hep B, Adol or Pedi Dosage Unknown Completed [facility] Haemophilus influenzae type b vaccine, conjugate unspecified formulation Unknown Completed [facility] HPV Unknown Completed [facility] Meningococcal Polysaccharide (groups A, C, Y and W-135) conjugate vaccine (MCV4P) Unknown Completed [facility] MMR Unknown Completed [facility] IPV Unknown Completed [facility] Varicella (varivax)(chicken pox) Unknown Completed [facility] TDAP Unknown Completed [facility] DTaP, Unspecified Formulation Unknown Completed [facility] Influenza Virus Vaccine Quad .5 mL IM 6+ MO (FLUZONE/FLULAVAL/FL UARIX) Unknown Completed [facility] Hep B, Adol or Pedi Dosage Unknown Completed [facility] Haemophilus influenzae type b vaccine, conjugate unspecified formulation Unknown Completed [facility] HPV Unknown Completed [facility] Meningococcal Polysaccharide (groups A, C, Y and W-135) conjugate vaccine (MCV4P) Unknown Completed [facility] MMR Unknown Completed [facility] IPV Unknown Completed [facility] Varicella (varivax)(chicken pox) Unknown Completed [facility] TDAP Unknown Completed [facility] DTaP, Unspecified Formulation Unknown Completed [facility] Influenza Virus Vaccine Quad .5 mL IM 6+ MO (FLUZONE/FLULAVAL/FL UARIX) Unknown Completed [facility] Hep B, Adol or Pedi Dosage Unknown Completed [facility] Haemophilus influenzae type b vaccine, conjugate unspecified formulation Unknown Completed [facility] HPV Unknown Completed [facility] Meningococcal Polysaccharide (groups A, C, Y and W-135) conjugate vaccine (MCV4P) Unknown Completed [facility] MMR Unknown Completed [facility] IPV Unknown Completed [facility] Varicella (varivax)(chicken pox) Unknown Completed [facility] DTaP, Unspecified Formulation Unknown Completed [facility] Influenza Virus Vaccine Quad .5 mL IM 6+ MO (FLUZONE/FLULAVAL/FL UARIX) Unknown Completed [facility] Hep B, Adol or Pedi Dosage Unknown Completed [facility] Haemophilus influenzae type b vaccine, conjugate unspecified formulation Unknown Completed [facility] HPV Unknown Completed [facility] Meningococcal Polysaccharide (groups A, C, Y and W-135) conjugate vaccine (MCV4P) Unknown Completed [facility] MMR Unknown Completed [facility] IPV Unknown Completed [facility] TDAP Unknown Completed [facility] Varicella (varivax)(chicken pox) Unknown Completed [facility] DTaP, Unspecified Formulation Unknown Completed [facility] Influenza Virus Vaccine Quad .5 mL IM 6+ MO (FLUZONE/FLULAVAL/FL UARIX) Unknown Completed [facility] Hep B, Adol or Pedi Dosage Unknown Completed [facility] Haemophilus influenzae type b vaccine, conjugate unspecified formulation Unknown Completed [facility] HPV Unknown Completed [facility] Meningococcal Polysaccharide (groups A, C, Y and W-135) conjugate vaccine (MCV4P) Unknown Completed [facility] MMR Unknown Completed [facility] IPV Unknown Completed [facility] TDAP Unknown Completed [facility] Varicella (varivax)(chicken pox) Unknown Completed [facility] TDAP Unknown Completed [facility] DTaP, Unspecified Formulation Unknown Completed [facility] Influenza Virus Vaccine Quad .5 mL IM 6+ MO (FLUZONE/FLULAVAL/FL UARIX) Unknown Completed [facility] Hep B, Adol or Pedi Dosage Unknown Completed [facility] Haemophilus influenzae type b vaccine, conjugate unspecified formulation Unknown Completed [facility] HPV Unknown Completed [facility] Meningococcal Polysaccharide (groups A, C, Y and W-135) conjugate vaccine (MCV4P) Unknown Completed [facility] MMR Unknown Completed [facility] IPV Unknown Completed [facility] Varicella (varivax)(chicken pox) Unknown Completed [facility] TDAP Unknown Completed [facility] DTaP, Unspecified Formulation Unknown Completed [facility] Influenza Virus Vaccine Quad .5 mL IM 6+ MO (FLUZONE/FLULAVAL/FL UARIX) Unknown Completed [facility] Hep B, Adol or Pedi Dosage Unknown Completed [facility] Haemophilus influenzae type b vaccine, conjugate unspecified formulation Unknown Completed [facility] HPV Unknown Completed [facility] Meningococcal Polysaccharide (groups A, C, Y and W-135) conjugate vaccine (MCV4P) Unknown Completed [facility] MMR Unknown Completed [facility] IPV Unknown Completed [facility] Varicella (varivax)(chicken pox) Unknown Completed [facility] TDAP Unknown Completed [facility] DTaP, Unspecified Formulation Unknown Completed [facility] Influenza Virus Vaccine Quad .5 mL IM 6+ MO (FLUZONE/FLULAVAL/FL UARIX) Unknown Completed [facility] Hep B, Adol or Pedi Dosage Unknown Completed [facility] Haemophilus influenzae type b vaccine, conjugate unspecified formulation Unknown Completed [facility] HPV Unknown Completed [facility] Meningococcal Polysaccharide (groups A, C, Y and W-135) conjugate vaccine (MCV4P) Unknown Completed [facility] MMR Unknown Completed [facility] IPV Unknown Completed [facility] Varicella (varivax)(chicken pox) Unknown Completed [facility] TDAP Unknown Completed [facility] DTaP, Unspecified Formulation Unknown Completed [facility] Influenza Virus Vaccine Quad .5 mL IM 6+ MO (FLUZONE/FLULAVAL/FL UARIX) Unknown Completed [facility] Hep B, Adol or Pedi Dosage Unknown Completed [facility] Haemophilus influenzae type b vaccine, conjugate unspecified formulation Unknown Completed [facility] HPV Unknown Completed [facility] Meningococcal Polysaccharide (groups A, C, Y and W-135) conjugate vaccine (MCV4P) Unknown Completed [facility] MMR Unknown Completed [facility] IPV Unknown Completed [facility] Varicella (varivax)(chicken pox) Unknown Completed [facility] TDAP Unknown Completed [facility] DTaP, Unspecified Formulation Unknown Completed [facility] Influenza Virus Vaccine Quad .5 mL IM 6+ MO (FLUZONE/FLULAVAL/FL UARIX) Unknown Completed [facility] Hep B, Adol or Pedi Dosage Unknown Completed [facility] Haemophilus influenzae type b vaccine, conjugate unspecified formulation Unknown Completed [facility] HPV Unknown Completed [facility] Meningococcal Polysaccharide (groups A, C, Y and W-135) conjugate vaccine (MCV4P) Unknown Completed [facility] MMR Unknown Completed [facility] IPV Unknown Completed [facility] Varicella (varivax)(chicken pox) Unknown Completed [facility] TDAP Unknown Completed [facility] DTaP, Unspecified Formulation Unknown Completed [facility] Influenza Virus Vaccine Quad .5 mL IM 6+ MO (FLUZONE/FLULAVAL/FL UARIX) Unknown Completed [facility] Hep B, Adol or Pedi Dosage Unknown Completed [facility] Haemophilus influenzae type b vaccine, conjugate unspecified formulation Unknown Completed [facility] HPV Unknown Completed [facility] Meningococcal Polysaccharide (groups A, C, Y and W-135) conjugate vaccine (MCV4P) Unknown Completed [facility] MMR Unknown Completed [facility] IPV Unknown Completed [facility] Varicella (varivax)(chicken pox) Unknown Completed [facility] TDAP Unknown Completed [facility] DTaP, Unspecified Formulation Unknown Completed [facility] Influenza Virus Vaccine Quad .5 mL IM 6+ MO (FLUZONE/FLULAVAL/FL UARIX) Unknown Completed [facility] Hep B, Adol or Pedi Dosage Unknown Completed [facility] Haemophilus influenzae type b vaccine, conjugate unspecified formulation Unknown Completed [facility] HPV Unknown Completed [facility] Meningococcal Polysaccharide (groups A, C, Y and W-135) conjugate vaccine (MCV4P) Unknown Completed [facility] MMR Unknown Completed [facility] IPV Unknown Completed [facility] Varicella (varivax)(chicken pox) Unknown Completed [facility] TDAP Unknown Completed [facility] DTaP, Unspecified Formulation Unknown Completed [facility] Influenza Virus Vaccine Quad .5 mL IM 6+ MO (FLUZONE/FLULAVAL/FL UARIX) Unknown Completed [facility] Hep B, Adol or Pedi Dosage Unknown Completed [facility] Haemophilus influenzae type b vaccine, conjugate unspecified formulation Unknown Completed [facility] HPV Unknown Completed [facility] Meningococcal Polysaccharide (groups A, C, Y and W-135) conjugate vaccine (MCV4P) Unknown Completed [facility] MMR Unknown Completed [facility] IPV Unknown Completed [facility] Varicella (varivax)(chicken pox) Unknown Completed [facility] Influenza Virus Vaccine Quad .5 mL IM 6+ MO (FLUZONE/FLULAVAL/FL UARIX) Unknown Completed [facility] Meningococcal Polysaccharide (groups A, C, Y and W-135) conjugate vaccine (MCV4P) Unknown Completed [facility] TDAP Unknown Completed [facility] DTaP, Unspecified Formulation Unknown Completed [facility] Hep B, Adol or Pedi Dosage Unknown Completed [facility] Haemophilus influenzae type b vaccine, conjugate unspecified formulation Unknown Completed [facility] HPV Unknown Completed [facility] MMR Unknown Completed [facility] IPV Unknown Completed [facility] Varicella (varivax)(chicken pox) Unknown Completed [facility] TDAP Unknown Completed [facility] DTaP, Unspecified Formulation Unknown Completed [facility] Influenza Virus Vaccine Quad .5 mL IM 6+ MO (FLUZONE/FLULAVAL/FL UARIX) Unknown Completed [facility] Hep B, Adol or Pedi Dosage Unknown Completed [facility] Haemophilus influenzae type b vaccine, conjugate unspecified formulation Unknown Completed [facility] HPV Unknown Completed [facility] Meningococcal Polysaccharide (groups A, C, Y and W-135) conjugate vaccine (MCV4P) Unknown Completed [facility] MMR Unknown Completed [facility] IPV Unknown Completed [facility] Varicella (varivax)(chicken pox) Unknown Completed [facility] TDAP Unknown Completed [facility] DTaP, Unspecified Formulation Unknown Completed [facility] Influenza Virus Vaccine Quad .5 mL IM 6+ MO (FLUZONE/FLULAVAL/FL UARIX) Unknown Completed [facility] Hep B, Adol or Pedi Dosage Unknown Completed [facility] Haemophilus influenzae type b vaccine, conjugate unspecified formulation Unknown Completed [facility] HPV Unknown Completed [facility] Meningococcal Polysaccharide (groups A, C, Y and W-135) conjugate vaccine (MCV4P) Unknown Completed [facility] MMR Unknown Completed [facility] IPV Unknown Completed [facility] Varicella (varivax)(chicken pox) Unknown Completed [facility] TDAP Unknown Completed [facility] DTaP, Unspecified Formulation Unknown Completed [facility] Influenza Virus Vaccine Quad .5 mL IM 6+ MO (FLUZONE/FLULAVAL/FL UARIX) Unknown Completed [facility] Hep B, Adol or Pedi Dosage Unknown Completed [facility] Haemophilus influenzae type b vaccine, conjugate unspecified formulation Unknown Completed [facility] HPV Unknown Completed [facility] Meningococcal Polysaccharide (groups A, C, Y and W-135) conjugate vaccine (MCV4P) Unknown Completed [facility] MMR Unknown Completed [facility] IPV Unknown Completed [facility] Varicella (varivax)(chicken pox) Unknown Completed [facility] TDAP Unknown Completed [facility] DTaP, Unspecified Formulation Unknown Completed [facility] Influenza Virus Vaccine Quad .5 mL IM 6+ MO (FLUZONE/FLULAVAL/FL UARIX) Unknown Completed [facility] Hep B, Adol or Pedi Dosage Unknown Completed [facility] Haemophilus influenzae type b vaccine, conjugate unspecified formulation Unknown Completed [facility] HPV Unknown Completed [facility] Meningococcal Polysaccharide (groups A, C, Y and W-135) conjugate vaccine (MCV4P) Unknown Completed [facility] MMR Unknown Completed [facility] IPV Unknown Completed [facility] Varicella (varivax)(chicken pox) Unknown Completed [facility] TDAP Unknown Completed [facility] DTaP, Unspecified Formulation Unknown Completed [facility] Influenza Virus Vaccine Quad .5 mL IM 6+ MO (FLUZONE/FLULAVAL/FL UARIX) Unknown Completed [facility] Hep B, Adol or Pedi Dosage Unknown Completed [facility] Haemophilus influenzae type b vaccine, conjugate unspecified formulation Unknown Completed [facility] HPV Unknown Completed [facility] Meningococcal Polysaccharide (groups A, C, Y and W-135) conjugate vaccine (MCV4P) Unknown Completed [facility] MMR Unknown Completed [facility] IPV Unknown Completed [facility] Varicella (varivax)(chicken pox) Unknown Completed [facility] TDAP Unknown Completed [facility] DTaP, Unspecified Formulation Unknown Completed [facility] Influenza Virus Vaccine Quad .5 mL IM 6+ MO (FLUZONE/FLULAVAL/FL UARIX) Unknown Completed [facility] Hep B, Adol or Pedi Dosage Unknown Completed [facility] Haemophilus influenzae type b vaccine, conjugate unspecified formulation Unknown Completed [facility] HPV Unknown Completed [facility] Meningococcal Polysaccharide (groups A, C, Y and W-135) conjugate vaccine (MCV4P) Unknown Completed [facility] MMR Unknown Completed [facility] IPV Unknown Completed [facility] Varicella (varivax)(chicken pox) Unknown Completed [facility] TDAP Unknown Completed [facility] DTaP, Unspecified Formulation Unknown Completed [facility] Influenza Virus Vaccine Quad .5 mL IM 6+ MO (FLUZONE/FLULAVAL/FL UARIX) Unknown Completed [facility] Hep B, Adol or Pedi Dosage Unknown Completed [facility] Haemophilus influenzae type b vaccine, conjugate unspecified formulation Unknown Completed [facility] HPV Unknown Completed [facility] Meningococcal Polysaccharide (groups A, C, Y and W-135) conjugate vaccine (MCV4P) Unknown Completed [facility] MMR Unknown Completed [facility] IPV Unknown Completed [facility] Varicella (varivax)(chicken pox) Unknown Completed [facility] TDAP Unknown Completed [facility] DTaP, Unspecified Formulation Unknown Completed [facility] Influenza Virus Vaccine Quad .5 mL IM 6+ MO (FLUZONE/FLULAVAL/FL UARIX) Unknown Completed [facility] Hep B, Adol or Pedi Dosage Unknown Completed [facility] Haemophilus influenzae type b vaccine, conjugate unspecified formulation Unknown Completed [facility] HPV Unknown Completed [facility] Meningococcal Polysaccharide (groups A, C, Y and W-135) conjugate vaccine (MCV4P) Unknown Completed [facility] MMR Unknown Completed [facility] IPV Unknown Completed [facility] Varicella (varivax)(chicken pox) Unknown Completed [facility] TDAP Unknown Completed [facility] DTaP, Unspecified Formulation Unknown Completed [facility] Influenza Virus Vaccine Quad .5 mL IM 6+ MO (FLUZONE/FLULAVAL/FL UARIX) Unknown Completed [facility] Hep B, Adol or Pedi Dosage Unknown Completed [facility] Haemophilus influenzae type b vaccine, conjugate unspecified formulation Unknown Completed [facility] HPV Unknown Completed [facility] Meningococcal Polysaccharide (groups A, C, Y and W-135) conjugate vaccine (MCV4P) Unknown Completed [facility] MMR Unknown Completed [facility] IPV Unknown Completed [facility] Varicella (varivax)(chicken pox) Unknown Completed [facility] TDAP Unknown Completed [facility] DTaP, Unspecified Formulation Unknown Completed [facility] Influenza Virus Vaccine Quad .5 mL IM 6+ MO (FLUZONE/FLULAVAL/FL UARIX) Unknown Completed [facility] Hep B, Adol or Pedi Dosage Unknown Completed [facility] Haemophilus influenzae type b vaccine, conjugate unspecified formulation Unknown Completed [facility] HPV Unknown Completed [facility] Meningococcal Polysaccharide (groups A, C, Y and W-135) conjugate vaccine (MCV4P) Unknown Completed [facility] MMR Unknown Completed [facility] IPV Unknown Completed [facility] Varicella (varivax)(chicken pox) Unknown Completed [facility] TDAP Unknown Completed [facility] DTaP, Unspecified Formulation Unknown Completed [facility] Influenza Virus Vaccine Quad .5 mL IM 6+ MO (FLUZONE/FLULAVAL/FL UARIX) Unknown Completed [facility] Hep B, Adol or Pedi Dosage Unknown Completed [facility] Haemophilus influenzae type b vaccine, conjugate unspecified formulation Unknown Completed [facility] HPV Unknown Completed [facility] Meningococcal Polysaccharide (groups A, C, Y and W-135) conjugate vaccine (MCV4P) Unknown Completed [facility] MMR Unknown Completed [facility] IPV Unknown Completed [facility] Varicella (varivax)(chicken pox) Unknown Completed [facility] TDAP Unknown Completed [facility] DTaP, Unspecified Formulation Unknown Completed [facility] Influenza Virus Vaccine Quad .5 mL IM 6+ MO (FLUZONE/FLULAVAL/FL UARIX) Unknown Completed [facility] Hep B, Adol or Pedi Dosage Unknown Completed [facility] Haemophilus influenzae type b vaccine, conjugate unspecified formulation Unknown Completed [facility] HPV Unknown Completed [facility] Meningococcal Polysaccharide (groups A, C, Y and W-135) conjugate vaccine (MCV4P) Unknown Completed [facility] MMR Unknown Completed [facility] IPV Unknown Completed [facility] Varicella (varivax)(chicken pox) Unknown Completed [facility] Influenza Virus Vaccine Quad .5 mL IM 6+ MO (FLUZONE/FLULAVAL/FL UARIX) Unknown Completed [facility] Meningococcal Polysaccharide (groups A, C, Y and W-135) conjugate vaccine (MCV4P) Unknown Completed [facility] DTaP, Unspecified Formulation Unknown Completed [facility] Hep B, Adol or Pedi Dosage Unknown Completed [facility] Haemophilus influenzae type b vaccine, conjugate unspecified formulation Unknown Completed [facility] HPV Unknown Completed [facility] MMR Unknown Completed [facility] IPV Unknown Completed [facility] TDAP Unknown Completed [facility] Varicella (varivax)(chicken pox) Unknown Completed [facility] TDAP Unknown Completed [facility] DTaP, Unspecified Formulation Unknown Completed [facility] Influenza Virus Vaccine Quad .5 mL IM 6+ MO (FLUZONE/FLULAVAL/FL UARIX) Unknown Completed [facility] Hep B, Adol or Pedi Dosage Unknown Completed [facility] Haemophilus influenzae type b vaccine, conjugate unspecified formulation Unknown Completed [facility] HPV Unknown Completed [facility] Meningococcal Polysaccharide (groups A, C, Y and W-135) conjugate vaccine (MCV4P) Unknown Completed [facility] MMR Unknown Completed [facility] IPV Unknown Completed [facility] Varicella (varivax)(chicken pox) Unknown Completed [facility] TDAP Unknown Completed [facility] DTaP, Unspecified Formulation Unknown Completed [facility] Influenza Virus Vaccine Quad .5 mL IM 6+ MO (FLUZONE/FLULAVAL/FL UARIX) Unknown Completed [facility] Hep B, Adol or Pedi Dosage Unknown Completed [facility] Haemophilus influenzae type b vaccine, conjugate unspecified formulation Unknown Completed [facility] HPV Unknown Completed [facility] Meningococcal Polysaccharide (groups A, C, Y and W-135) conjugate vaccine (MCV4P) Unknown Completed [facility] MMR Unknown Completed [facility] IPV Unknown Completed [facility] Varicella (varivax)(chicken pox) Unknown Completed [facility] Influenza Virus Vaccine Quad .5 mL IM 6+ MO (FLUZONE/FLULAVAL/FL UARIX) Unknown Completed [facility] Meningococcal Polysaccharide (groups A, C, Y and W-135) conjugate vaccine (MCV4P) Unknown Completed [facility] TDAP Unknown Completed [facility] DTaP, Unspecified Formulation Unknown Completed [facility] Influenza Virus Vaccine Quad .5 mL IM 6+ MO (FLUZONE/FLULAVAL/FL UARIX) Unknown Completed [facility] Hep B, Adol or Pedi Dosage Unknown Completed [facility] Haemophilus influenzae type b vaccine, conjugate unspecified formulation Unknown Completed [facility] HPV Unknown Completed [facility] Meningococcal Polysaccharide (groups A, C, Y and W-135) conjugate vaccine (MCV4P) Unknown Completed [facility] MMR Unknown Completed [facility] IPV Unknown Completed [facility] Varicella (varivax)(chicken pox) Unknown Completed [facility] TDAP Unknown Completed [facility] DTaP, Unspecified Formulation Unknown Completed [facility] Influenza Virus Vaccine Quad .5 mL IM 6+ MO (FLUZONE/FLULAVAL/FL UARIX) Unknown Completed [facility] Hep B, Adol or Pedi Dosage Unknown Completed [facility] Haemophilus influenzae type b vaccine, conjugate unspecified formulation Unknown Completed [facility] HPV Unknown Completed [facility] Meningococcal Polysaccharide (groups A, C, Y and W-135) conjugate vaccine (MCV4P) Unknown Completed [facility] MMR Unknown Completed [facility] IPV Unknown Completed [facility] Varicella (varivax)(chicken pox) Unknown Completed [facility] Influenza Virus Vaccine Quad .5 mL IM 6+ MO (FLUZONE/FLULAVAL/FL UARIX) Unknown Completed [facility] Meningococcal Polysaccharide (groups A, C, Y and W-135) conjugate vaccine (MCV4P) Unknown Completed [facility] TDAP Unknown Completed [facility] DTaP, Unspecified Formulation Unknown Completed [facility] Hep B, Adol or Pedi Dosage Unknown Completed [facility] Haemophilus influenzae type b vaccine, conjugate unspecified formulation Unknown Completed [facility] HPV Unknown Completed [facility] MMR Unknown Completed [facility] IPV Unknown Completed [facility] Varicella (varivax)(chicken pox) Unknown Completed [facility] TDAP Unknown Completed [facility] DTaP, Unspecified Formulation Unknown Completed [facility] Hep B, Adol or Pedi Dosage Unknown Completed [facility] Haemophilus influenzae type b vaccine, conjugate unspecified formulation Unknown Completed [facility] HPV Unknown Completed [facility] MMR Unknown Completed [facility] IPV Unknown Completed [facility] Varicella (varivax)(chicken pox) Unknown Completed [facility] TDAP Unknown Completed [facility] DTaP, Unspecified Formulation Unknown Completed [facility] Influenza Virus Vaccine Quad .5 mL IM 6+ MO (FLUZONE/FLULAVAL/FL UARIX) Unknown Completed [facility] Hep B, Adol or Pedi Dosage Unknown Completed [facility] Haemophilus influenzae type b vaccine, conjugate unspecified formulation Unknown Completed [facility] HPV Unknown Completed [facility] Meningococcal Polysaccharide (groups A, C, Y and W-135) conjugate vaccine (MCV4P) Unknown Completed [facility] MMR Unknown Completed [facility] IPV Unknown Completed [facility] Varicella (varivax)(chicken pox) Unknown Completed [facility] TDAP Unknown Completed [facility] DTaP, Unspecified Formulation Unknown Completed [facility] Influenza Virus Vaccine Quad .5 mL IM 6+ MO (FLUZONE/FLULAVAL/FL UARIX) Unknown Completed [facility] Hep B, Adol or Pedi Dosage Unknown Completed [facility] Haemophilus influenzae type b vaccine, conjugate unspecified formulation Unknown Completed [facility] HPV Unknown Completed [facility] Meningococcal Polysaccharide (groups A, C, Y and W-135) conjugate vaccine (MCV4P) Unknown Completed [facility] MMR Unknown Completed [facility] IPV Unknown Completed [facility] Varicella (varivax)(chicken pox) Unknown Completed [facility] TDAP Unknown Completed [facility] DTaP, Unspecified Formulation Unknown Completed [facility] Influenza Virus Vaccine Quad .5 mL IM 6+ MO (FLUZONE/FLULAVAL/FL UARIX) Unknown Completed [facility] Hep B, Adol or Pedi Dosage Unknown Completed [facility] Haemophilus influenzae type b vaccine, conjugate unspecified formulation Unknown Completed [facility] HPV Unknown Completed [facility] Meningococcal Polysaccharide (groups A, C, Y and W-135) conjugate vaccine (MCV4P) Unknown Completed [facility] MMR Unknown Completed [facility] IPV Unknown Completed [facility] Varicella (varivax)(chicken pox) Unknown Completed [facility] TDAP Unknown Completed [facility] DTaP, Unspecified Formulation Unknown Completed [facility] Influenza Virus Vaccine Quad .5 mL IM 6+ MO (FLUZONE/FLULAVAL/FL UARIX) Unknown Completed [facility] Hep B, Adol or Pedi Dosage Unknown Completed [facility] Haemophilus influenzae type b vaccine, conjugate unspecified formulation Unknown Completed [facility] HPV Unknown Completed [facility] Meningococcal Polysaccharide (groups A, C, Y and W-135) conjugate vaccine (MCV4P) Unknown Completed [facility] MMR Unknown Completed [facility] IPV Unknown Completed [facility] Varicella (varivax)(chicken pox) Unknown Completed [facility] TDAP Unknown Completed [facility] DTaP, Unspecified Formulation Unknown Completed [facility] Influenza Virus Vaccine Quad .5 mL IM 6+ MO (FLUZONE/FLULAVAL/FL UARIX) Unknown Completed [facility] Hep B, Adol or Pedi Dosage Unknown Completed [facility] Haemophilus influenzae type b vaccine, conjugate unspecified formulation Unknown Completed [facility] HPV Unknown Completed [facility] Meningococcal Polysaccharide (groups A, C, Y and W-135) conjugate vaccine (MCV4P) Unknown Completed [facility] MMR Unknown Completed [facility] IPV Unknown Completed [facility] Varicella (varivax)(chicken pox) Unknown Completed [facility] TDAP Unknown Completed [facility] DTaP, Unspecified Formulation Unknown Completed [facility] Influenza Virus Vaccine Quad .5 mL IM 6+ MO (FLUZONE/FLULAVAL/FL UARIX) Unknown Completed [facility] Hep B, Adol or Pedi Dosage Unknown Completed [facility] Haemophilus influenzae type b vaccine, conjugate unspecified formulation Unknown Completed [facility] HPV Unknown Completed [facility] Meningococcal Polysaccharide (groups A, C, Y and W-135) conjugate vaccine (MCV4P) Unknown Completed [facility] MMR Unknown Completed [facility] IPV Unknown Completed [facility] Varicella (varivax)(chicken pox) Unknown Completed [facility] TDAP Unknown Completed [facility] DTaP, Unspecified Formulation Unknown Completed [facility] Influenza Virus Vaccine Quad .5 mL IM 6+ MO (FLUZONE/FLULAVAL/FL UARIX) Unknown Completed [facility] Hep B, Adol or Pedi Dosage Unknown Completed [facility] Haemophilus influenzae type b vaccine, conjugate unspecified formulation Unknown Completed [facility] HPV Unknown Completed [facility] Meningococcal Polysaccharide (groups A, C, Y and W-135) conjugate vaccine (MCV4P) Unknown Completed [facility] MMR Unknown Completed [facility] IPV Unknown Completed [facility] Varicella (varivax)(chicken pox) Unknown Completed [facility] TDAP Unknown Completed [facility] DTaP, Unspecified Formulation Unknown Completed [facility] Influenza Virus Vaccine Quad .5 mL IM 6+ MO (FLUZONE/FLULAVAL/FL UARIX) Unknown Completed [facility] Hep B, Adol or Pedi Dosage Unknown Completed [facility] Haemophilus influenzae type b vaccine, conjugate unspecified formulation Unknown Completed [facility] HPV Unknown Completed [facility] Meningococcal Polysaccharide (groups A, C, Y and W-135) conjugate vaccine (MCV4P) Unknown Completed [facility] MMR Unknown Completed [facility] IPV Unknown Completed [facility] Varicella (varivax)(chicken pox) Unknown Completed [facility] TDAP Unknown Completed [facility] DTaP, Unspecified Formulation Unknown Completed [facility] Influenza Virus Vaccine Quad .5 mL IM 6+ MO (FLUZONE/FLULAVAL/FL UARIX) Unknown Completed [facility] Hep B, Adol or Pedi Dosage Unknown Completed [facility] Haemophilus influenzae type b vaccine, conjugate unspecified formulation Unknown Completed [facility] HPV Unknown Completed [facility] Meningococcal Polysaccharide (groups A, C, Y and W-135) conjugate vaccine (MCV4P) Unknown Completed [facility] MMR Unknown Completed [facility] IPV Unknown Completed [facility] Varicella (varivax)(chicken pox) Unknown Completed [facility] TDAP Unknown Completed [facility] DTaP, Unspecified Formulation Unknown Completed [facility] Influenza Virus Vaccine Quad .5 mL IM 6+ MO (FLUZONE/FLULAVAL/FL UARIX) Unknown Completed [facility] Hep B, Adol or Pedi Dosage Unknown Completed [facility] Haemophilus influenzae type b vaccine, conjugate unspecified formulation Unknown Completed [facility] HPV Unknown Completed [facility] Meningococcal Polysaccharide (groups A, C, Y and W-135) conjugate vaccine (MCV4P) Unknown Completed [facility] MMR Unknown Completed [facility] IPV Unknown Completed [facility] Varicella (varivax)(chicken pox) Unknown Completed [facility] TDAP Unknown Completed [facility] DTaP, Unspecified Formulation Unknown Completed [facility] Influenza Virus Vaccine Quad .5 mL IM 6+ MO (FLUZONE/FLULAVAL/FL UARIX) Unknown Completed [facility] Hep B, Adol or Pedi Dosage Unknown Completed [facility] Haemophilus influenzae type b vaccine, conjugate unspecified formulation Unknown Completed [facility] HPV Unknown Completed [facility] Meningococcal Polysaccharide (groups A, C, Y and W-135) conjugate vaccine (MCV4P) Unknown Completed [facility] MMR Unknown Completed [facility] IPV Unknown Completed [facility] Varicella (varivax)(chicken pox) Unknown Completed [facility] TDAP Unknown Completed [facility] DTaP, Unspecified Formulation Unknown Completed [facility] Influenza Virus Vaccine Quad .5 mL IM 6+ MO (FLUZONE/FLULAVAL/FL UARIX) Unknown Completed [facility] Hep B, Adol or Pedi Dosage Unknown Completed [facility] Haemophilus influenzae type b vaccine, conjugate unspecified formulation Unknown Completed [facility] HPV Unknown Completed [facility] Meningococcal Polysaccharide (groups A, C, Y and W-135) conjugate vaccine (MCV4P) Unknown Completed [facility] MMR Unknown Completed [facility] IPV Unknown Completed [facility] Varicella (varivax)(chicken pox) Unknown Completed [facility] TDAP Unknown Completed [facility] DTaP, Unspecified Formulation Unknown Completed [facility] Influenza Virus Vaccine Quad .5 mL IM 6+ MO (FLUZONE/FLULAVAL/FL UARIX) Unknown Completed [facility] Hep B, Adol or Pedi Dosage Unknown Completed [facility] Haemophilus influenzae type b vaccine, conjugate unspecified formulation Unknown Completed [facility] HPV Unknown Completed [facility] Meningococcal Polysaccharide (groups A, C, Y and W-135) conjugate vaccine (MCV4P) Unknown Completed [facility] MMR Unknown Completed [facility] IPV Unknown Completed [facility] Varicella (varivax)(chicken pox) Unknown Completed [facility] TDAP Unknown Completed [facility] DTaP, Unspecified Formulation Unknown Completed [facility] Influenza Virus Vaccine Quad .5 mL IM 6+ MO (FLUZONE/FLULAVAL/FL UARIX) Unknown Completed [facility] Hep B, Adol or Pedi Dosage Unknown Completed [facility] Haemophilus influenzae type b vaccine, conjugate unspecified formulation Unknown Completed [facility] HPV Unknown Completed [facility] Meningococcal Polysaccharide (groups A, C, Y and W-135) conjugate vaccine (MCV4P) Unknown Completed [facility] MMR Unknown Completed [facility] IPV Unknown Completed [facility] Varicella (varivax)(chicken pox) Unknown Completed [facility] HPV9 Unknown Completed [facility] Influenza Virus Vaccine Quad .5 mL IM 6+ MO (FLUZONE/FLULAVAL/FL UARIX) Unknown Completed [facility] Meningococcal Polysaccharide (groups A, C, Y and W-135) conjugate vaccine (MCV4P) Unknown Completed [facility] HPV9 Unknown Completed [facility] TDAP Unknown Completed [facility] DTaP, Unspecified Formulation Unknown Completed [facility] Hep B, Adol or Pedi Dosage Unknown Completed [facility] Haemophilus influenzae type b vaccine, conjugate unspecified formulation Unknown Completed [facility] HPV Unknown Completed [facility] MMR Unknown Completed [facility] IPV Unknown Completed [facility] Varicella (varivax)(chicken pox) Unknown Completed [facility] TDAP Unknown Completed [facility] DTaP, Unspecified Formulation Unknown Completed [facility] Influenza Virus Vaccine Quad .5 mL IM 6+ MO (FLUZONE/FLULAVAL/FL UARIX) Unknown Completed [facility] Hep B, Adol or Pedi Dosage Unknown Completed [facility] Haemophilus influenzae type b vaccine, conjugate unspecified formulation Unknown Completed [facility] HPV Unknown Completed [facility] Meningococcal Polysaccharide (groups A, C, Y and W-135) conjugate vaccine (MCV4P) Unknown Completed [facility] MMR Unknown Completed [facility] IPV Unknown Completed [facility] Varicella (varivax)(chicken pox) Unknown Completed [facility] HPV9 Unknown Completed [facility] TDAP Unknown Completed [facility] DTaP, Unspecified Formulation Unknown Completed [facility] Influenza Virus Vaccine Quad .5 mL IM 6+ MO (FLUZONE/FLULAVAL/FL UARIX) Unknown Completed [facility] Hep B, Adol or Pedi Dosage Unknown Completed [facility] Haemophilus influenzae type b vaccine, conjugate unspecified formulation Unknown Completed [facility] HPV Unknown Completed [facility] Meningococcal Polysaccharide (groups A, C, Y and W-135) conjugate vaccine (MCV4P) Unknown Completed [facility] MMR Unknown Completed [facility] IPV Unknown Completed [facility] Varicella (varivax)(chicken pox) Unknown Completed [facility] HPV9 Unknown Completed [facility] TDAP Unknown Completed [facility] DTaP, Unspecified Formulation Unknown Completed [facility] Influenza Virus Vaccine Quad .5 mL IM 6+ MO (FLUZONE/FLULAVAL/FL UARIX) Unknown Completed [facility] Hep B, Adol or Pedi Dosage Unknown Completed [facility] Haemophilus influenzae type b vaccine, conjugate unspecified formulation Unknown Completed [facility] HPV Unknown Completed [facility] Meningococcal Polysaccharide (groups A, C, Y and W-135) conjugate vaccine (MCV4P) Unknown Completed [facility] MMR Unknown Completed [facility] IPV Unknown Completed [facility] Varicella (varivax)(chicken pox) Unknown Completed [facility] HPV9 Unknown Completed [facility] Influenza Virus Vaccine Quad .5 mL IM 6+ MO (FLUZONE/FLULAVAL/FL UARIX) Unknown Completed [facility] Meningococcal Polysaccharide (groups A, C, Y and W-135) conjugate vaccine (MCV4P) Unknown Completed [facility] HPV9 Unknown Completed [facility] TDAP Unknown Completed [facility] DTaP, Unspecified Formulation Unknown Completed [facility] Influenza Virus Vaccine Quad .5 mL IM 6+ MO (FLUZONE/FLULAVAL/FL UARIX) Unknown Completed [facility] Hep B, Adol or Pedi Dosage Unknown Completed [facility] Haemophilus influenzae type b vaccine, conjugate unspecified formulation Unknown Completed [facility] HPV Unknown Completed [facility] Meningococcal Polysaccharide (groups A, C, Y and W-135) conjugate vaccine (MCV4P) Unknown Completed [facility] MMR Unknown Completed [facility] IPV Unknown Completed [facility] Varicella (varivax)(chicken pox) Unknown Completed [facility] HPV9 Unknown Completed [facility] TDAP Unknown Completed [facility] DTaP, Unspecified Formulation Unknown Completed [facility] Influenza Virus Vaccine Quad .5 mL IM 6+ MO (FLUZONE/FLULAVAL/FL UARIX) Unknown Completed [facility] Hep B, Adol or Pedi Dosage Unknown Completed [facility] Haemophilus influenzae type b vaccine, conjugate unspecified formulation Unknown Completed [facility] HPV Unknown Completed [facility] Meningococcal Polysaccharide (groups A, C, Y and W-135) conjugate vaccine (MCV4P) Unknown Completed [facility] MMR Unknown Completed [facility] IPV Unknown Completed [facility] Varicella (varivax)(chicken pox) Unknown Completed [facility] HPV9 Unknown Completed [facility] TDAP Unknown Completed [facility] DTaP, Unspecified Formulation Unknown Completed [facility] Hep B, Adol or Pedi Dosage Unknown Completed [facility] Haemophilus influenzae type b vaccine, conjugate unspecified formulation Unknown Completed [facility] HPV Unknown Completed [facility] MMR Unknown Completed [facility] IPV Unknown Completed [facility] Varicella (varivax)(chicken pox) Unknown Completed [facility] TDAP Unknown Completed [facility] DTaP, Unspecified Formulation Unknown Completed [facility] Influenza Virus Vaccine Quad .5 mL IM 6+ MO (FLUZONE/FLULAVAL/FL UARIX) Unknown Completed [facility] Hep B, Adol or Pedi Dosage Unknown Completed [facility] Haemophilus influenzae type b vaccine, conjugate unspecified formulation Unknown Completed [facility] HPV Unknown Completed [facility] Meningococcal Polysaccharide (groups A, C, Y and W-135) conjugate vaccine (MCV4P) Unknown Completed [facility] MMR Unknown Completed [facility] IPV Unknown Completed [facility] Varicella (varivax)(chicken pox) Unknown Completed [facility] HPV9 Unknown Completed [facility] TDAP Unknown Completed [facility] DTaP, Unspecified Formulation Unknown Completed [facility] Influenza Virus Vaccine Quad .5 mL IM 6+ MO (FLUZONE/FLULAVAL/FL UARIX) Unknown Completed [facility] Hep B, Adol or Pedi Dosage Unknown Completed [facility] Haemophilus influenzae type b vaccine, conjugate unspecified formulation Unknown Completed [facility] HPV Unknown Completed [facility] Meningococcal Polysaccharide (groups A, C, Y and W-135) conjugate vaccine (MCV4P) Unknown Completed [facility] MMR Unknown Completed [facility] IPV Unknown Completed [facility] Varicella (varivax)(chicken pox) Unknown Completed [facility] HPV9 Unknown Completed [facility] TDAP Unknown Completed [facility] DTaP, Unspecified Formulation Unknown Completed [facility] Influenza Virus Vaccine Quad .5 mL IM 6+ MO (FLUZONE/FLULAVAL/FL UARIX) Unknown Completed [facility] Hep B, Adol or Pedi Dosage Unknown Completed [facility] Haemophilus influenzae type b vaccine, conjugate unspecified formulation Unknown Completed [facility] HPV Unknown Completed [facility] Meningococcal Polysaccharide (groups A, C, Y and W-135) conjugate vaccine (MCV4P) Unknown Completed [facility] MMR Unknown Completed [facility] IPV Unknown Completed [facility] Varicella (varivax)(chicken pox) Unknown Completed [facility] HPV9 Unknown Completed [facility] Vital Signs Vital Name Observation Time Observation Value Comments S ource Systolic blood pressure 2024-07-05 00:16:00 115 mm[Hg] [facility] Diastolic blood pressure 2024-07-05 00:16:00 72 mm[Hg] [facility] Heart rate 2024-07-05 00:16:00 84 /min [facility] Body temperature 2024-07-05 00:16:00 37.06 Maria Dolores [facility] Respiratory rate 2024-07-05 00:16:00 18 /min [facility] Body weight 2024-07-05 00:16:00 105.291 kg [facility] BMI 2024-07-05 00:16:00 37.47 kg/m2 [facility] Oxygen saturation in Arterial blood by Pulse oximetry 2024-07-05 00:16:00 100 /min [facility] Systolic blood pressure 2024-01-23 00:55:00 124 mm[Hg] [facility] Diastolic blood pressure 2024-01-23 00:55:00 76 mm[Hg] [facility] Heart rate 2024-01-23 00:55:00 82 /min [facility] Body temperature 2024-01-23 00:55:00 36.11 Maria Dolores [facility] Respiratory rate 2024-01-23 00:55:00 17 /min [facility] Body weight 2024-01-23 00:55:00 105.802 kg [facility] BMI 2024-01-23 00:55:00 37.65 kg/m2 [facility] Oxygen saturation in Arterial blood by Pulse oximetry 2024-01-23 00:55:00 100 /min [facility] Systolic blood pressure 2024-01-05 15:32:00 110 mm[Hg] [facility] Diastolic blood pressure 2024-01-05 15:32:00 76 mm[Hg] [facility] Heart rate 2024-01-05 15:32:00 69 /min [facility] Body temperature 2024-01-05 15:32:00 37 Maria Dolores [facility] Respiratory rate 2024-01-05 15:32:00 18 /min [facility] Body height 2024-01-05 15:32:00 167.6 cm [facility] Body weight 2024-01-05 15:32:00 105.915 kg [facility] BMI 2024-01-05 15:32:00 37.69 kg/m2 [facility] Oxygen saturation in Arterial blood by Pulse oximetry 2024-01-05 15:32:00 99 /min [facility] Systolic blood pressure 2023-11-02 16:06:00 112 mm[Hg] [facility] Diastolic blood pressure 2023-11-02 16:06:00 66 mm[Hg] [facility] Heart rate 2023-11-02 16:06:00 65 /min [facility] Body temperature 2023-11-02 16:06:00 36.56 Maria Dolores [facility] Respiratory rate 2023-11-02 16:06:00 17 /min [facility] Body height 2023-11-02 16:06:00 170.2 cm [facility] Body weight 2023-11-02 16:06:00 99.428 kg [facility] BMI 2023-11-02 16:06:00 34.33 kg/m2 [facility] Systolic blood pressure 2023-09-24 19:08:00 148 mm[Hg] [facility] Diastolic blood pressure 2023-09-24 19:08:00 85 mm[Hg] [facility] Heart rate 2023-09-24 19:08:00 56 /min [facility] Body temperature 2023-09-24 19:07:00 36.5 Maria Dolores [facility] Respiratory rate 2023-09-24 19:07:00 20 /min [facility] Body height 2023-09-24 19:07:00 170.2 cm [facility] Body weight 2023-09-24 19:07:00 102.876 kg [facility] BMI 2023-09-24 19:07:00 35.52 kg/m2 [facility] Systolic blood pressure 2023-09-19 13:42:00 112 mm[Hg] [facility] Diastolic blood pressure 2023-09-19 13:42:00 78 mm[Hg] [facility] Heart rate 2023-09-19 13:42:00 77 /min [facility] Body temperature 2023-09-19 13:42:00 36.39 Maria Dolores [facility] Respiratory rate 2023-09-19 13:42:00 18 /min [facility] Oxygen saturation in Arterial blood by Pulse oximetry 2023-09-19 13:42:00 98 /min [facility] Body height 2023-09-16 01:00:00 167.6 cm [facility] Body weight 2023-09-16 01:00:00 109.362 kg [facility] BMI 2023-09-16 01:00:00 38.93 kg/m2 [facility] Systolic blood pressure 2023-09-16 13:45:00 102 mm[Hg] [facility] Diastolic blood pressure 2023-09-16 13:45:00 72 mm[Hg] [facility] Heart rate 2023-09-16 13:45:00 69 /min [facility] Respiratory rate 2023-09-16 13:45:00 19 /min [facility] Oxygen saturation in Arterial blood by Pulse oximetry 2023-09-16 13:45:00 99 /min [facility] Body temperature 2023-09-16 13:00:00 36.61 Maria Dolores [facility] Body height 2023-09-16 01:00:00 167.6 cm [facility] Body weight 2023-09-16 01:00:00 109.362 kg [facility] BMI 2023-09-16 01:00:00 38.93 kg/m2 [facility] Systolic blood pressure 2023-09-15 15:18:00 135 mm[Hg] [facility] Diastolic blood pressure 2023-09-15 15:18:00 86 mm[Hg] [facility] Heart rate 2023-09-15 15:18:00 95 /min [facility] Body temperature 2023-09-15 15:18:00 36.5 Maria Dolores [facility] Respiratory rate 2023-09-15 15:18:00 19 /min [facility] Body height 2023-09-15 15:18:00 167.6 cm [facility] Body weight 2023-09-15 15:18:00 107.956 kg [facility] BMI 2023-09-15 15:18:00 38.41 kg/m2 [facility] Systolic blood pressure 2023-09-15 16:48:00 106 mm[Hg] [facility] Diastolic blood pressure 2023-09-15 16:48:00 86 mm[Hg] [facility] Heart rate 2023-09-15 16:48:00 79 /min [facility] Body temperature 2023-09-15 16:48:00 36.56 Maria Dolores [facility] Heart rate 2023-09-11 01:50:00 79 /min [facility] Oxygen saturation in Arterial blood by Pulse oximetry 2023-09-11 01:50:00 100 /min [facility] Systolic blood pressure 2023-09-11 01:30:00 106 mm[Hg] [facility] Diastolic blood pressure 2023-09-11 01:30:00 86 mm[Hg] [facility] Respiratory rate 2023-09-11 01:00:00 18 /min [facility] Body height 2023-09-10 21:30:00 167.6 cm [facility] Body weight 2023-09-10 21:30:00 107.956 kg [facility] BMI 2023-09-10 21:30:00 38.41 kg/m2 [facility] Systolic blood pressure 2023-09-10 17:37:00 118 mm[Hg] [facility] Diastolic blood pressure 2023-09-10 17:37:00 78 mm[Hg] [facility] Heart rate 2023-09-10 17:37:00 94 /min [facility] Body temperature 2023-09-10 17:37:00 36.39 Maria Dolores [facility] Respiratory rate 2023-09-10 17:37:00 18 /min [facility] Body height 2023-09-10 17:37:00 167.6 cm [facility] Body weight 2023-09-10 17:37:00 107.956 kg [facility] BMI 2023-09-10 17:37:00 38.41 kg/m2 [facility] Systolic blood pressure 2023-09-09 21:55:00 124 mm[Hg] [facility] Diastolic blood pressure 2023-09-09 21:55:00 75 mm[Hg] [facility] Heart rate 2023-09-09 21:55:00 79 /min [facility] Body temperature 2023-09-09 21:55:00 36.39 Maria Dolores [facility] Respiratory rate 2023-09-09 21:55:00 18 /min [facility] Body height 2023-09-09 21:55:00 167.6 cm [facility] Body weight 2023-09-09 21:55:00 106.958 kg [facility] BMI 2023-09-09 21:55:00 38.06 kg/m2 [facility] Systolic blood pressure 2023-09-03 20:25:00 129 mm[Hg] [facility] Diastolic blood pressure 2023-09-03 20:25:00 79 mm[Hg] [facility] Heart rate 2023-09-03 20:25:00 112 /min [facility] Body temperature 2023-09-03 20:25:00 36.44 Maria Dolores [facility] Respiratory rate 2023-09-03 20:25:00 18 /min [facility] Body height 2023-09-03 20:25:00 167.6 cm [facility] Body weight 2023-09-03 20:25:00 107.457 kg [facility] BMI 2023-09-03 20:25:00 38.24 kg/m2 [facility] Systolic blood pressure 2023-09-01 20:02:00 128 mm[Hg] [facility] Diastolic blood pressure 2023-09-01 20:02:00 76 mm[Hg] [facility] Heart rate 2023-09-01 20:02:00 99 /min [facility] Body temperature 2023-09-01 20:02:00 35.72 Maria Dolores [facility] Respiratory rate 2023-09-01 20:02:00 18 /min [facility] Body height 2023-09-01 20:02:00 167.6 cm [facility] Body weight 2023-09-01 20:02:00 108.682 kg [facility] BMI 2023-09-01 20:02:00 38.67 kg/m2 [facility] Systolic blood pressure 2023-08-26 21:45:00 114 mm[Hg] [facility] Diastolic blood pressure 2023-08-26 21:45:00 71 mm[Hg] [facility] Heart rate 2023-08-26 21:45:00 98 /min [facility] Body temperature 2023-08-26 21:45:00 35.94 Maria Dolores [facility] Respiratory rate 2023-08-26 21:45:00 18 /min [facility] Body height 2023-08-26 21:45:00 167.6 cm [facility] Body weight 2023-08-26 21:45:00 106.505 kg [facility] BMI 2023-08-26 21:45:00 37.90 kg/m2 [facility] Systolic blood pressure 2023-08-11 16:22:00 118 mm[Hg] [facility] Diastolic blood pressure 2023-08-11 16:22:00 63 mm[Hg] [facility] Heart rate 2023-08-11 16:22:00 98 /[facility] Body temperature 2023-08-11 16:22:00 35.61 Maria Dolores [facility] Respiratory rate 2023-08-11 16:22:00 18 /min [facility] Body height 2023-08-11 16:22:00 167.6 cm [facility] Body weight 2023-08-11 16:22:00 104.781 kg [facility] BMI 2023-08-11 16:22:00 37.28 kg/m2 [facility] Systolic blood pressure 2023-08-03 02:00:00 113 mm[Hg] [facility] Diastolic blood pressure 2023-08-03 02:00:00 54 mm[Hg] [facility] Heart rate 2023-08-03 02:00:00 86 /[facility] Arterial blood by Pulse oximetry 2023-08-03 02:00:00 100 /min [facility] Body temperature 2023-08-03 01:00:00 36.67 Maria Dolores [facility] Respiratory rate 2023-08-03 01:00:00 17 /min [facility] Body height 2023-08-02 23:39:00 167.6 cm [facility] Body weight 2023-08-02 23:39:00 104.781 kg [facility] BMI 2023-08-02 23:39:00 37.28 kg/m2 [facility] Systolic blood pressure 2023-07-29 21:49:00 130 mm[Hg] [facility] Diastolic blood pressure 2023-07-29 21:49:00 71 mm[Hg] [facility] Heart rate 2023-07-29 21:49:00 93 /min [facility] Body temperature 2023-07-29 21:49:00 36.06 Maria Dolores [facility] Respiratory rate 2023-07-29 21:49:00 18 /min [facility] Body height 2023-07-29 21:49:00 170.2 cm [facility] Body weight 2023-07-29 21:49:00 104.838 kg [facility] BMI 2023-07-29 21:49:00 36.20 kg/m2 [facility] Systolic blood pressure 2023-07-19 04:30:00 105 mm[Hg] [facility] Diastolic blood pressure 2023-07-19 04:30:00 56 mm[Hg] [facility] Heart rate 2023-07-19 04:30:00 92 /min [facility] in Arterial blood by Pulse oximetry 2023-07-19 04:30:00 100 /min [facility] Body temperature 2023-07-19 02:54:00 37.17 Maria Dolores [facility] Respiratory rate 2023-07-19 02:54:00 18 /min [facility] Body weight 2023-07-19 02:54:00 102.967 kg [facility] BMI 2023-07-19 02:54:00 35.55 kg/m2 [facility] Body height 2023-07-19 02:25:00 170.2 cm [facility] Systolic blood pressure 2023-07-12 19:39:00 120 mm[Hg] [facility] Diastolic blood pressure 2023-07-12 19:39:00 69 mm[Hg] [facility] Heart rate 2023-07-12 19:39:00 100 /min [facility] Body temperature 2023-07-12 19:39:00 36.11 Maria Dolores [facility] Respiratory rate 2023-07-12 19:39:00 18 /min [facility] Body height 2023-07-12 19:39:00 170.2 cm [facility] Body weight 2023-07-12 19:39:00 103.902 kg [facility] BMI 2023-07-12 19:39:00 35.88 kg/m2 [facility] Systolic blood pressure 2023-06-30 20:29:00 108 mm[Hg] [facility] Diastolic blood pressure 2023-06-30 20:29:00 65 mm[Hg] [facility] Heart rate 2023-06-30 20:29:00 88 /min [facility] Body temperature 2023-06-30 20:29:00 36.28 Maria Dolores [facility] Respiratory rate 2023-06-30 20:29:00 18 /min [facility] Body height 2023-06-30 20:29:00 170.2 cm [facility] Body weight 2023-06-30 20:29:00 103.505 kg [facility] BMI 2023-06-30 20:29:00 35.74 kg/m2 [facility] Systolic blood pressure 2023-06-02 19:46:00 99 mm[Hg] [facility] Diastolic blood pressure 2023-06-02 19:46:00 64 mm[Hg] [facility] Heart rate 2023-06-02 19:46:00 93 /min [facility] Body temperature 2023-06-02 19:46:00 35.94 Maria Dolores [facility] Respiratory rate 2023-06-02 19:46:00 20 /min [facility] Body height 2023-06-02 19:46:00 170.2 cm [facility] Body weight 2023-06-02 19:46:00 102.626 kg [facility] BMI 2023-06-02 19:46:00 35.44 kg/m2 [facility] Systolic blood pressure 2023-05-05 19:09:00 109 mm[Hg] [facility] Diastolic blood pressure 2023-05-05 19:09:00 58 mm[Hg] [facility] Heart rate 2023-05-05 19:09:00 89 /min [facility] Body temperature 2023-05-05 19:09:00 36.56 Maria Dolores [facility] Respiratory rate 2023-05-05 19:09:00 18 /min [facility] Body height 2023-05-05 19:09:00 170.2 cm [facility] Body weight 2023-05-05 19:09:00 100.33 kg [facility] BMI 2023-05-05 19:09:00 34.64 kg/m2 [facility] Systolic blood pressure 2023-04-08 19:36:00 110 mm[Hg] [facility] Diastolic blood pressure 2023-04-08 19:36:00 58 mm[Hg] [facility] Heart rate 2023-04-08 19:36:00 92 /min [facility] [facility] Body temperature 2023-04-08 19:36:00 36.5 Maria Dolores [facility] Respiratory rate 2023-04-08 19:36:00 17 /min [facility] Body height 2023-04-08 19:36:00 170.2 cm [facility] Body weight 2023-04-08 19:36:00 98.612 kg [facility] BMI 2023-04-08 19:36:00 34.05 kg/m2 [facility] Systolic blood pressure 2023-03-11 19:19:00 122 mm[Hg] [facility] Diastolic blood pressure 2023-03-11 19:19:00 78 mm[Hg] [facility] Heart rate 2023-03-11 19:19:00 97 /min [facility] Body temperature 2023-03-11 19:19:00 36.5 Maria Dolores [facility] Respiratory rate 2023-03-11 19:19:00 20 /min [facility] Body height 2023-03-11 19:19:00 170.2 cm [facility] Body weight 2023-03-11 19:19:00 98.998 kg [facility] BMI 2023-03-11 19:19:00 34.18 kg/m2 [facility] Systolic blood pressure 2023-03-02 01:19:00 109 mm[Hg] [facility] Diastolic blood pressure 2023-03-02 01:19:00 64 mm[Hg] [facility] Heart rate 2023-03-02 01:19:00 93 /min [facility] Respiratory rate 2023-03-02 01:19:00 18 /min [facility] Oxygen saturation in Arterial blood by Pulse oximetry 2023-03-02 01:19:00 99 /min [facility] Body temperature 2023-03-02 00:12:00 37.5 Maria Dolores [facility] Body height 2023-03-02 00:12:00 170.2 cm [facility] Body weight 2023-03-02 00:12:00 99.791 kg [facility] BMI 2023-03-02 00:12:00 34.46 kg/m2 [facility] Systolic blood pressure 2023-02-11 13:46:00 101 mm[Hg] [facility] Diastolic blood pressure 2023-02-11 13:46:00 70 mm[Hg] [facility] Heart rate 2023-02-11 13:46:00 83 /min Unive [facility] Body temperature 2023-02-11 13:46:00 36.39 Maria Dolores [facility] Respiratory rate 2023-02-11 13:46:00 18 /min [facility] Body height 2023-02-11 13:46:00 167.6 cm [facility] Body weight 2023-02-11 13:46:00 101.294 kg [facility] BMI 2023-02-11 13:46:00 36.04 kg/m2 [facility] Systolic blood pressure 2022-12-30 21:39:00 114 mm[Hg] [facility] Diastolic blood pressure 2022-12-30 21:39:00 72 mm[Hg] [facility] Heart rate 2022-12-30 21:39:00 75 /min Unive [facility] Body temperature 2022-12-30 21:39:00 36.67 Maria Dolores [facility] Respiratory rate 2022-12-30 21:39:00 16 /min [facility] Body height 2022-12-30 21:39:00 170.2 cm [facility] Body weight 2022-12-30 21:39:00 102.513 kg [facility] BMI 2022-12-30 21:39:00 35.40 kg/m2 [facility] Oxygen saturation in Arterial blood by Pulse oximetry 2022-12-30 21:39:00 97 /min [facility] Systolic blood pressure 2022-05-18 14:11:00 105 mm[Hg] [facility] Diastolic blood pressure 2022-05-18 14:11:00 68 mm[Hg] [facility] Heart rate 2022-05-18 14:11:00 84 /min Unive [facility] Body temperature 2022-05-18 14:11:00 37.44 Maria Dolores [facility] Respiratory rate 2022-05-18 14:11:00 16 /min [facility] Body height 2022-05-18 14:11:00 167.6 cm [facility] Body weight 2022-05-18 14:11:00 96.888 kg [facility] BMI 2022-05-18 14:11:00 34.48 kg/m2 [facility] Oxygen saturation in Arterial blood by Pulse oximetry 2022-05-18 14:11:00 98 /min [facility] Systolic blood pressure 2022-03-06 19:08:00 120 mm[Hg] [facility] Diastolic blood pressure 2022-03-06 19:08:00 80 mm[Hg] [facility] Heart rate 2022-03-06 19:08:00 96 /min [facility] Body temperature 2022-03-06 19:08:00 36.89 Maria Dolores [facility] Respiratory rate 2022-03-06 19:08:00 18 /min [facility] Body height 2022-03-06 19:08:00 167.6 cm [facility] Body weight 2022-03-06 19:08:00 97.523 kg [facility] BMI 2022-03-06 19:08:00 34.70 kg/m2 [facility] Oxygen saturation in Arterial blood by Pulse oximetry 2022-03-06 19:08:00 98 /min [facility] Systolic (mm Hg) 2018-07-22 19:45:00 [facility] Height 2018-07-22 19:45:00 [facility] Weight 2018-07-22 [facility] [place] Oral (F) 2018-07-22 19:45:00 96.0 F [facility] Diastolic (mm Hg) 2018-07-22 19:45:00 [facility] Procedures Procedure Date / Time Performed Performing Clinician Source VITAMIN B12, LEVEL 2024-01-05 16:04:00 Catalina Stapleton [facility] INSULIN, LEVEL 2024-01-05 16:04:00 Catalina Stapleton [facility] COMP. METABOLIC PANEL (52138) 2024-01-05 16:04:00 Catalina Stapleton [facility] GLYCOSYLATED HEMOGLOBIN (A1C) 2024-01-05 16:04:00 Catalina Stapleton [facility] VITAMIN D, 25-OH 2024-01-05 16:04:00 Catalina Stapleton [facility] GARDASIL 9 (HPV 9V) VACCINE 2023-11-02 16:29:57 Reyes Richards [facility] DISABILITY/FMLA 2023-10-04 06:01:00 Doctor Unass igned, Dennis Acres [facility] CBC WITH DIFF 2023-09-17 11:08:00 Melba Iraheta Susy [facility] CBC WITH DIFF 2023-09-17 11:08:00 Melba Iraheta Susy [facility] CBC WITH DIFF 2023-09-16 22:52:00 Pedro Collins [facility] CBC WITH DIFF 2023-09-16 22:52:00 Pedro Collins [facility] POCT GLUCOSE (AUTOMATED) 2023-09-16 21:09:00 Sulema Jurado [facility] POCT GLUCOSE (AUTOMATED) 2023-09-16 21:09:00 Sulema Jurado [facility] VENOUS CORD GAS 2023-09-16 12:19:00 JenusaChai duenas [facility] VENOUS CORD GAS 2023-09-16 12:19:00 JenChai hardwick [facility] SECTION 2023-09-16 11:39:[address] [facility] SECTION 2023-09-16 11:39:[address] [facility] CENTRAL NEURAXIAL BLOCK 2023-09-16 08:10:00 Dutch Newberry [facility] CBC WITH DIFF 2023-09-15 23:24:[address] [facility] HEPATITIS B SURFACE ANTIGEN 2023-09-15 23:24:00 Chai Byrnes [facility] HB ABO GROUPING 2023-09-15 23:24:00 JenusaChai duenas [facility] RHO (D) IMMUNE GLOBULIN 2023-09-15 23:24:00 Katherine Iraheta ndpaul [facility] HIV 1/2 AG-AB WITH REFLEX 2023-09-15 23:24:00 Jenusait is, [facility] SYPHILIS IGG/IGM 2023-09-15 23:24:00 Jenusaitis, [facility] CBC WITH DIFF 2023-09-15 23:24:00 Jenusaitis, Chai [facility] HEPATITIS B SURFACE ANTIGEN 2023-09-15 23:24:00 Jenusaitis, [facility] HB ABO GROUPING 2023-09-15 23:24:00 Jenusaitis, Chai U [facility] RHO (D) IMMUNE GLOBULIN 2023-09-15 23:24:00 Katherine Iraheta ndpaul [facility] HIV 1/2 AG-AB WITH REFLEX 2023-09-15 23:24:00 Jenusait is, [facility] SYPHILIS IGG/IGM 2023-09-15 23:24:00 Jenusaitis, [facility] SGOT (ASPARTATE AMINO TRANSFER) 2023-09-15 21:29:00 Sharad [facility] CREATININE 2023-09-15 21:29:[address] [place] [facility] ALANINE AMINO TRANSFERASE(SGPT 2023-09-15 21:29:00 [place] [facility] LACTATE DEHYDROGENASE 2023-09-15 21:29:00 [place] [facility] URIC ACID 2023-09-15 21:29:[address] [facility] THYROID STIMULATING HORMONE 2023-09-15 21:29:00 Stone, [facility] CBC WITH DIFF 2023-09-15 21:29:00 Sharad [facility] URINALYSIS 2023-09-15 21:29:[address] [facility] PROTEIN CREAT RATIO URINE RANDOM 2023-09-15 21:29:00 Sharad [facility] SGOT (ASPARTATE AMINO TRANSFER) 2023-09-15 21:29:00 [facility] 2023-09-15 21:29:[address] [facility] ALANINE AMINO TRANSFERASE(SGPT 2023-09-15 21:29:00 Stone [facility] LACTATE DEHYDROGENASE 2023-09-15 21:29:00 Alessia Orourke [facility] URIC ACID 2023-09-15 21:29:[address] [facility] THYROID STIMULATING HORMONE 2023-09-15 21:29:00 Stone [facility] CBC WITH DIFF 2023-09-15 21:29:[facility]23-09-15 21:29:[address] [facility] PROTEIN CREAT RATIO URINE RANDOM 2023-09-15 21:29:00 Sharad [facility] POCT URINALYSIS 2023-09-15 16:47:00 Zoe Goodman [facility] SGOT (ASPARTATE AMINO TRANSFER) 2023-09-10 23:13:00 Amrit [facility] CREATININE 2023-09-10 23:13:00 Amrit [facility] ALANINE AMINO TRANSFERASE(SGPT 2023-09-10 23:13[facility] LACTATE DEHYDROGENASE 2023-09-10 23:13:00 [facility] URIC ACID 2023-09-10 23:13:00 [facility] 2023-09-10 23:13:00 Amrit [facility] NON-STRESS TEST 2023-09-10 22:02:19 Anton Richards [facility] POCT URINALYSIS 2023-09-10 17:38:00 Zoe Goodman [facility] POCT URINALYSIS 2023-09-09 21:56:00 Zoe Goodman [facility] CBC WITH DIFF 2023-09-09 21:50:00 Reyes Richards [facility] POCT URINALYSIS 2023-09-03 20:28:00 Zoe Goodman [facility] SECOND AND THIRD TRIMESTER ULTRASOUND 2023-09-02 14:29:00 Zoe Goodman [facility] POCT URINALYSIS 2023-09-01 20:07:00 Zoe Goodman [facility] PATIENT CORRESPONDENCE (LETTERS, USPS DOCUMENTATION) 2023-08-27 06:01:00 Doctor Unassigned, [place]res [facility] DME/SUPPLY JUSTIFICATION 2023-08-18 06:01:00 Doc tor Unassigned, [place] [facility] POCT URINALYSIS 2023-08-11 16:25:00 Zoe Goodman [facility] TDAP VACCINE, >11 YRS, IM 2023-08-11 16:23:00 Reyes Richards [facility] POCT URINALYSIS 2023-07-29 21:56:00 Zoe Goodman [facility] NOTICE OF PRIVACY PRACTICES 2023-07-19 02:17:11 Doctor Unassigned, [place] [facility] CONSENT/REFUSAL FOR DIAGNOSIS AND TREATMENT 2023-07-19 02:14:45 Doctor Unassigned, [place] [facility] L&D VISIT (NON-DELIVERED) 2023-07-18 06:01:00 Do ctor Unassigned, [place] [facility] POCT URINALYSIS 2023-07-12 22:40:00 Zoe Goodman [facility] POCT URINALYSIS 2023-07-12 22:39:00 Zoe Goodman [facility] GLUCOSE 1 HOUR POST PRANDIAL 2023-07-12 08:40:00 Zoe Goodman [facility] CBC WITH DIFF 2023-07-12 08:40:00 Zoe Goodman [facility] POCT URINALYSIS 2023-06-30 20:30:00 Zoe Goodman [facility] POCT URINALYSIS 2023-06-02 19:47:00 Zoe Goodman [facility] SECOND AND THIRD TRIMESTER ULTRASOUND 2023-05-19 20:34:00 Zoe Goodman [facility] ALPHA FETOPROTEIN-MATERNAL SER 2023-05-05 19:56:00 Zoe Goodman [facility] POCT URINALYSIS 2023-05-05 19:08:00 Zoe Goodman [facility] URINE CULTURE 2023-04-08 21:14:00 Zoe Goodman [facility] POCT URINALYSIS 2023-04-08 00:00:00 Zoe Goodman [facility] FIRST TRIMESTER ULTRASOUND 2023-03-29 16:51:00 Zoe Goodman [facility] POCT URINALYSIS 2023-03-11 19:22:00 Zoe Goodman [facility] FIRST TRIMESTER ULTRASOUND 2023-03-03 20:33:00 Zoe Goodman [facility] POCT TEST 2023-03-02 00:21:00 Fito Colon [facility] URINALYSIS 2023-03-02 00:20:00 [facility] OF PRIVACY PRACTICES 2023-03-01 23:58:05 Doctor Unassigned, [place] [facility] CONSENT/REFUSAL FOR DIAGNOSIS AND TREATMENT 2023-03-01 23:57:09 Doctor Unassigned, [place]res [facility] GLUCOSE 1 HOUR POST PRANDIAL 2023-02-11 14:45:00 Zoe Goodman [facility] COMP. METABOLIC PANEL (09776) 2023-02-11 14:45:00 Zoe Goodman [facility] CBC WITH DIFF 2023-02-11 14:45:00 Zoe Goodman [facility] RUBELLA SCREEN IGG 2023-02-11 14:45:00 Melba Goodman [facility] VZV ANTIBODY SCREEN 2023-02-11 14:45:00 Ila Goodman [facility] HEPATITIS B SURFACE ANTIGEN 2023-02-11 14:45:00 Zoe Goodman [facility] HCV ANTIBODY 2023-02-11 14:45:00 Zoe Goodman [facility] HB ABO GROUPING 2023-02-11 14:45:00 Zoe Goodman [facility] GC & CHLAMYDIA AMPLIFIED ASSAY 2023-02-11 14:45:00 Zoe Goodman [facility] HIV 1/2 AG-AB WITH REFLEX 2023-02-11 14:45:00 Zoe Valles [facility] TRICHOMONAS AMPLIFIED ASSAY 2023-02-11 14:45:00 Zoe Goodman [facility] PAP SMEAR-LIQUID BASED-CP 2023-02-11 14:45:00 Zoe Valles [facility] SYPHILIS IGG/IGM 2023-02-11 14:45:00 Zoe Goodman [facility] REPORT OF 2023-02-11 05:01:00 Doctor Natividad mueller, [place] [facility] POCT TEST 2023-02-11 00:00:00 Ila Goodman [facility] POCT URINALYSIS W/O SPECIFIC GRAVITY 2023-02-11 00:00:00 Zoe Goodman [facility] CONSENT/REFUSAL FOR DIAGNOSIS AND TREATMENT 2022-12-30 21:28:46 Doctor Unassigned, [place] [facility] POCT MOLECULAR STREP 2022-05-18 14:10:00 Rhonda Guerra [facility] POCT TEST 2022-03-06 19:13:00 Christine Pena [facility] Encounters Start Date/Time End Date/Time Encounter Type Admission Type Attending Clinicians Care Facility Care Department Encounter ID Source 2023-09-10 19:59:00 Outpatient P [facility] TRICIA [id number] [facility] 2021-06-09 05:16:59 Emergency [facility] [id number] [facility] 2021-06-08 22:32:58 Outpatient P [facility] TRICIA [id number] [facility] 2021-06-08 22:28:29 Outpatient P [facility] TRICIA [id number] [facility] 2021-06-05 20:18:29 Emergency [facility] [id number] [facility] 2021-06-05 13:56:05 Outpatient P [facility] TRICIA [id number] [facility] 2021-06-05 13:52:44 Outpatient P [facility] TRICIA [id number] [facility] 2021-06-05 13:52:37 Emergency [facility] [id number] [facility] 2024-07-04 18:00:00 2024-07-04 18:20:00 Urgent Care Jama Denney Unknown, Attending [facility] 1..840.114 350.1.13.10 4.2.7.2.[id number] [facility] 2024-07-04 18:00:00 2024-07-04 18:00:00 Outpatient R JAMA DENNEY [facility] [id number] [facility] 2024-07-04 00:00:00 2024-07-04 17:08:54 Nurse Triage Blaire Tapia Jenny L [facility] ..840.114 350.1.13.10 4.2.7.2.[id number] [facility] 2024 09:30:00 2024 09:30:00 Outpatient R CATALINA STAPLETON [facility] [id number] [facility] 2024-01-04 00:00:00 2024-02-05 18:18:25 Patient Secure Msg Reyes Richards [facility] [employer] PROFESSOR [facility] MATERNAL & CHILD [facility] 1..840.114 350.1.13.10 4.2.7.2.[id number] [facility] 2024-01-22 20:00:00 2024-01-22 20:20:00 Urgent Care Monty Cabrera Unknown, Attending [facility] 1..840.114 350.1.13.10 4.2.7.2.[id number] [facility] 2024-01-22 20:00:00 2024-01-22 20:00:00 Outpatient R MONTY CABRERA [facility] [id number] [facility] 2024-01-06 00:00:00 2024-01-10 11:12:50 Patient Secure Msg Daya Catalina [facility] 1..840.114 350.1.13.10 4.2.7.2.[id number] [facility] 2024-01-05 00:00:00 2024-01-05 16:14:26 Patient Secure Msg Doctor Unassigned, [place] Acres [facility] 1.2.840.114 350.1.13.10 4.2.7.2.[id number] [facility] 2024-01-05 11:00:00 2024-01-05 11:08:18 Fell Cutter Visit Lab, Jonathan Stapleton Catalina [facility] 1..840.114 350.1.13.10 4.2.7.2.[id number] [facility] 2024-01-05 10:30:00 2024-01-05 10:53:25 Outpatient R CATALINA STAPLETON [facility] [id number] [facility] 2024-01-05 10:30:00 2024-01-05 10:53:25 Office Visit Catalina Stapleton [facility] 1.2.840.114 350.1.13.10 4.2.7.2.[id number] [facility] 2024-01-04 00:00:00 2024-01-04 11:17:53 Telephone Celsosalazar Catalina [facility] 1.2.840.114 350.1.13.10 4.2.7.2.[id number] [facility] 2023-12-16 07:30:00 2023-12-16 07:30:00 Outpatient R CAPRICE STOVER [facility] [id number] [facility] 2023-12-13 00:00:00 2023-12-13 15:06:54 Telephone Caprice Stover [facility] 1.2.840.114 350.1.13.10 4.2.7.2.[id number] [facility] 2023-11-28 00:00:00 2023-11-28 00:00:00 Zoe Vegas [facility] COM[employer] PROFESSOR [facility] MATERNAL & CHILD [facility] 1.2.840.114 350.1.13.10 4.2.7.2.[id number] [facility] 2023-11-08 00:00:00 2023-11-08 00:00:00 Telephone Reyes Richards [facility] [employer] PROFESSOR [facility] MATERNAL & CHILD [facility] 1.2.840.114 350.1.13.10 4.2.7.2.[id number] [facility] 2023-11-02 11:00:00 2023-11-02 11:29:39 Outpatient R REYES RICHARDS [facility] [id number] [facility] 2023-11-02 11:00:00 2023-11-02 11:29:39 Office Visit Reyes Richards [facility] COM[employer] PROFESSOR [facility] CHILD [facility] 1.840.114 350.1.13.10 4.2.7.2.[id number] [facility] 2023-10-28 10:30:00 2023-10-28 10:30:00 Outpatient ZOE PARK [facility] [id number] [facility] 2023-10-25 08:00:00 2023-10-25 08:00:00 Outpatient REYES DHALIWAL [facility] [id number] [facility] 2023-10-19 00:00:00 2023-10-19 00:00:00 Telephone Reyes Richards [facility] CHILD [facility] 1.840.114 350.1.13.10 4.2.7.2.[id number] [facility] 2023-10-14 00:00:00 2023-10-14 00:00:00 Telephone Tankjose mReyes garcia [facility] [employer] [facility] 1.2840.114 350.1.13.10 4.2.7.2.[id number] [facility] 2023-10-04 00:00:00 2023-10-04 00:00:00 Orders Only Doctor Unassigned, Dennis Acres [facility] 1.840.114 350.1.13.10 4.2.7.2.[id number] [facility] 2023-09-24 13:00:00 2023-09-24 13:07:23 Outpatient ZOE PARK [facility] [id number] [facility] 2023-09-24 13:00:00 2023-09-24 13:07:23 Nurse Visit Visit, Ang-Rmchp Nurse Zoe Goodman [facility] COM[employer] PROFESSOR [facility] 1.2840.114 350.1.13.10 4.2.7.2.[id number] [facility] 2023-09-23 14:00:00 2023-09-23 14:00:00 Outpatient R [facility] [id number] [facility] 2023-09-22 09:00:00 2023-09-22 09:00:00 Outpatient R [facility] [id number] [facility] 2023-09-21 00:00:00 2023-09-21 00:00:00 Patient Secure Msg Tankjose mradhaReyes Phu [facility] COM[employer] PROFESSOR [facility] MATERNAL & CHILD [facility] 1.0.114 350.1.13.10 4.2.7.2.[id number] [facility] 2023-09-20 00:00:00 2023-09-20 00:00:00 Nurse Triage Alma Delia Smith [facility] 1.0.114 350.1.13.10 4.2.7.2.[id number] [facility] 2023-09-15 14:09:00 2023-09-19 13:41:00 Inpatient P ALLENJASON EMIBASSETT [facility] TRICIA [id number] [facility] 2023-09-15 14:09:00 2023-09-19 13:41:00 Hospital Encounter [facility] 1.0.114 350.1.13.10 4.2.7.2.[id number] [facility] 2023-09-16 13:00:00 2023-09-16 13:00:00 Outpatient P [facility] [id number] [facility] 2023-09-16 06:00:00 2023-09-16 07:53:00 Surgery Bharti Diaz [facility] 1..114 350.1.13.10 4.2.7.2.[id number] [facility] 2023-09-16 01:20:00 2023-09-16 07:04:00 Anesthesia Event Bulmaro Newberry Rakesh B [facility] 1..114 350.1.13.10 4.2.7.2.[id number] [facility] 2023-09-15 10:45:00 2023-09-15 11:00:00 Routine Visit Reyes Richards [facility] [employer] PROFESSOR [facility] MATERNAL & CHILD [facility] 1.0.114 350.1.13.10 4.2.7.2.[id number] [facility] 2023-09-15 10:45:00 2023-09-15 10:45:00 Outpatient R REYES RICHARDS [facility] [id number] [facility] 2023-09-15 09:45:00 2023-09-15 10:20:23 Outpatient R SHANNAN VIRK [facility] [id number] [facility] 2023-09-15 09:45:00 2023-09-15 10:20:23 Routine Visit Risk, Ang-Rmchp-N p/High Shannan Virk [facility] COMPUT[employer] PROFESSOR [facility] CH[facility] 1..114 350.1.13.10 4.2.7.2.[id number] [facility] 2023-09-15 00:00:00 2023-09-15 00:00:00 Telephone Zoe Goodman [facility] COMPUT[employer] PROFESSOR [facility] MATERNAL & CHILD [facility] 1.20.114 350.1.13.10 4.2.7.2.[id number] [facility] 2023-09-10 15:02:00 2023-09-10 19:58:00 Outpatient HANNAH RAMÍREZ SHANNON [facility] [id number] [facility] 2023-09-10 15:02:00 2023-09-10 19:58:00 Hospital Encounter Alton Hannah Lars [facility] 1.2.840.114 350.1.13.10 4.2.7.2.[id number] [facility] 2023-09-10 13:00:00 2023-09-10 13:00:00 Routine Visit Reyes Richards [facility] COMPUTER [employer]FORMATION [employer] PROFESSOR [facility] MATERNAL & CHILD [facility] 1.2.840.114 350.1.13.10 4.2.7.2.[id number] [facility] 2023-09-10 13:00:00 2023-09-10 12:17:44 Outpatient R REYES RICHARDS [facility] [id number] [facility] 2023-09-10 00:00:00 2023-09-10 00:00:00 Telephone Reyes Richards [facility] COMPUTER [employer] PROFESSOR [facility] 1.2.840.114 350.1.13.10 4.2.7.2.[id number] [facility] 2023-09-10 00:00:00 2023-09-10 00:00:00 Nurse Triage Velia Mackenzie [facility] 1.2840.114 350.1.13.10 4.2.7.2.[id number] [facility] 2023-09-10 00:00:00 2023-09-10 00:00:00 Telephone Reyes Richards [facility] COMPUT[employer] PROFESSOR [facility] 1.2.840.114 350.1.13.10 4.2.7.2.[id number] [facility] 2023-09-09 15:45:00 2023-09-09 16:18:01 Outpatient R REYES RICHARDS [facility] [id number] [facility] 2023-09-09 15:45:00 2023-09-09 16:18:01 Routine Visit Reyes Richards [facility] COMPUT[employer] PROFESSOR [facility] 1.2.840.114 350.1.13.10 4.2.7.2.[id number] [facility] 2023-09-09 00:00:00 2023-09-09 00:00:00 Nurse Triage Lorena Gleason [facility] 1.2.840.114 350.1.13.10 4.2.7.2.[id number] [facility] 2023-09-09 00:00:00 2023-09-09 00:00:00 Telephone Reyes Richards [facility] COMPUTER [employer] PROFESSOR [facility] 1.2.840.114 350.1.13.10 4.2.7.2.[id number] [facility] 2023-09-03 15:30:00 2023-09-03 15:30:00 Routine Visit Reyes Richards [facility] COMPUTER [employer] PROFESSOR [facility] 1.2.840.114 350.1.13.10 4.2.7.2.[id number] [facility] 2023-09-03 15:30:00 2023-09-03 14:42:39 Outpatient R REYES RICHARDS [facility] [id number] [facility] 2023-09-03 00:00:00 2023-09-03 00:00:00 Nurse Triage Alma Delia Smith [facility] 1.2.840.114 350.1.13.10 4.2.7.2.[id number] [facility] 2023-09-03 00:00:00 2023-09-03 00:00:00 Telephone Reyes Richards [facility] COMPUTER [employer] PROFESSOR [facility] 1..114 350.1.13.10 4.2.7.2.[id number] [facility] 2023-09-02 08:00:00 2023-09-02 08:27:59 Outpatient P HANNAH DANG SHANNON [facility] [id number] [facility] 2023-09-02 08:00:00 2023-09-02 08:27:59 Fell Cutter Visit Ultrasound, Hannah Mi [facility] COMPUTER [employer]FORMATION [employer] PROFESSOR [facility] CHILD [facility] 1..114 350.1.13.10 4.2.7.2.[id number] [facility] 2023-09-02 00:00:00 2023-09-02 00:00:00 Case Management Zoe Goodman [facility] COMPUTER [employer] PROFESSOR [facility] 1..114 350.1.13.10 4.2.7.2.[id number] [facility] 2023-09-01 13:45:00 2023-09-01 14:54:59 Outpatient R SHANNAN VIRK [facility] [id number] [facility] 2023-09-01 13:45:00 2023-09-01 14:54:59 Routine Visit Risk, Jonathan-Rmchp-N p/High Shannan Virk [facility] COMPUTER [employer] PROFESSOR [facility] 1..114 350.1.13.10 4.2.7.2.[id number] [facility] 2023-08-27 00:00:00 2023-08-27 00:00:00 Orders Only Doctor Unassigned, Dennis Acres [facility] 1..114 350.1.13.10 4.2.7.2.[id number] [facility] 2023-08-26 15:30:00 2023-08-26 16:11:06 Outpatient R REYES RICHARDS [facility] [id number] [facility] 2023-08-26 15:30:00 2023-08-26 16:11:06 Routine Visit Reyes Richards [facility] COMPUTER [employer] PROFESSOR [facility] 1..840.114 350.1.13.10 4.2.7.2.[id number] [facility] 2023-08-25 15:15:00 2023-08-25 15:15:00 Outpatient R REYES RICHARDS [facility] [id number] [facility] 2023-08-18 00:00:00 2023-08-18 00:00:00 Orders Only Doctor Unassigned, Dennis Acres [facility] 1..840.114 350.1.13.10 4.2.7.2.[id number] [facility] 2023-08-11 10:00:00 2023-08-11 10:47:14 Outpatient R REYES RICHARDS [facility] [id number] [facility] 2023-08-11 10:00:00 2023-08-11 10:47:14 Routine Visit Reyes Richards [facility] COMPUTER [employer] PROFESSOR [facility] 1..840.114 350.1.13.10 4.2.7.2.[id number] [facility] 2023-08-02 17:48:00 2023-08-02 20:20:00 Outpatient X BETTIE CARROLL MARISOL [facility] TRICIA [id number] [facility] 2023-08-02 17:48:00 2023-08-02 20:20:00 [facility] 1.2.840.114 350.1.13.10 4.2.7.2.[id number] [facility] 2023-08-02 00:00:00 2023-08-02 00:00:00 Nurse Triage Dominick Toshia [facility] 1.840.114 350.1.13.10 4.2.7.2.[id number] [facility] 2023-07-29 15:45:00 2023-07-29 16:04:58 Outpatient R REYES RICHARDS [facility] [id number] [facility] 2023-07-29 15:45:00 2023-07-29 16:04:58 Routine Visit Reyes Richards [facility] COMPUTER [employer]FORMATION SYSTEMS PROFESSOR [facility]ERNAL & [facility] 1.840.114 350.1.13.10 4.2.7.2.[id number] [facility] 2023-07-18 20:32:00 2023-07-18 22:40:00 Outpatient X RIGO-GRACIELA S, BETTIE ROXANNE S, BETTIE [facility] [id number] [facility] 2023-07-18 20:32:00 2023-07-18 22:40:00 Emergency AdisJose s, Bettie [facility] 1.2840.114 350.1.13.10 4.2.7.2.[id number] [facility] 2023-07-18 00:00:00 2023-07-18 00:00:00 Nurse Triage Jayde Nation [facility] 1.2840.114 350.1.13.10 4.2.7.2.[id number] [facility] 2023-07-13 00:00:2023-07-13 00:00:00 Case Management Zoe Goodman [facility] COMPUTER [employer]FORMATION SYSTEMS PROFESSOR [facility] MATERNAL & CHILD [facility] 1.840.114 350.1.13.10 4.2.7.2.[id number] [facility] 2023-07-12 13:45:00 2023-07-12 14:01:59 Outpatient R REYES RICHARDS [facility] [id number] [facility] 2023-07-12 13:45:00 2023-07-12 14:01:59 Routine Visit Reyes Richards [facility] COMPUTER [employer]FORMATION SYSTEM[employer] PROFESSOR [facility] 1.840.114 350.1.13.10 4.2.7.2.[id number] [facility] 2023-07-09 13:30:00 2023-07-09 13:30:00 Outpatient R ZOE GOODMAN [facility] [id number] [facility] 2023-06-30 14:15:00 2023-06-30 15:11:25 Outpatient R ZOE GOODMAN [facility] [id number] [facility] 2023-06-30 14:15:00 2023-06-30 15:11:25 Routine Visit Zoe Goodman [facility] COMPUTER [employer]FORMATION [employer]S PROFESSOR [facility] 1.840.114 350.1.13.10 4.2.7.2.[id number] [facility] 2023-06-02 14:15:00 2023-06-02 15:28:00 Outpatient R ZOE GOODMAN [facility] [id number] [facility] 2023-06-02 14:15:00 2023-06-02 15:28:00 Routine Visit Zoe Goodman [facility] COMPUTER [employer]FORMATION [employer] PROFESSOR [facility] MATERNAL & CHILD [facility] 1.840.114 350.1.13.10 4.2.7.2.[id number] [facility] 2023-05-20 00:00:00 2023-05-20 00:00:00 Case Management Zoe Goodman [facility] COMPUTER [employer]FORMATION SYSTEMS PROFESSOR [facility] 1.2.840.114 350.1.13.10 4.2.7.2.[id number] [facility] 2023-05-19 14:45:00 2023-05-19 16:00:00 Fell Cutter Visit Ultrasound, Hannah Mi [facility] COMPUTER [employer]FORMATION SYSTEMS PROFESSOR [facility] 1.840.114 350.1.13.10 4.2.7.2.[id number] [facility] 2023-05-19 14:45:00 2023-05-19 14:45:00 Outpatient HANNAH RAMÍREZ SHANNON [facility] [id number] [facility] 2023-05-05 14:15:00 2023-05-05 14:59:44 Outpatient R ZOE GOODMAN [facility] [id number] [facility] 2023-05-05 14:15:00 2023-05-05 14:59:44 Routine Visit Zoe Goodman [facility] COMPUTER [employer]FORMATION SYSTEMS PROFESSOR [facility] 1.2840.114 350.1.13.10 4.2.7.2.[id number] [facility] 2023-04-19 00:00:00 2023-04-19 00:00:00 Telephone Zoe Goodman [facility] COMPUTER INFORMATION SYSTEM[employer] PROFESSOR [facility] CHILD [facility] 1.2.840.114 350.1.13.10 4.2.7.2.[id number] [facility] 2023-04-08 14:15:00 2023-04-08 15:04:18 Outpatient R ZOE GOODMAN [facility] [id number] [facility] 2023-04-08 14:15:00 2023-04-08 15:04:18 Routine Visit Ashleyjuan Zoe Salazar [facility] COMPUTER INFORMATION SYSTEMS PROFESSOR [facility] CHILD [facility] 1.2.840.114 350.1.13.10 4.2.7.2.[id number] [facility] 2023-03-30 00:00:00 2023-03-30 00:00:00 Case Management BetteZoe hager [facility] COMPUTER [employer]FORMATION [employer] PROFESSOR [facility] CHILD [facility] 1.2840.114 350.1.13.10 4.2.7.2.[id number] [facility] 2023-03-29 13:15:00 2023-03-29 13:30:00 Fell Cutter Visit Lab, EdelRmchp Zoe Goodman Sangeeta [facility] COMPUTER [employer]FORMATION SYSTEMS PROFESSOR [facility] CHILD [facility] 1.840.114 350.1.13.10 4.2.7.2.[id number] [facility] 2023-03-29 11:15:00 2023-03-29 11:46:14 Outpatient P [facility] [id number] [facility] 2023-03-29 11:15:00 2023-03-29 11:46:14 Fell Cutter Visit Ultrasound, EdelAlexa Givens [facility] COMPUTER [employer]FORMATION SYSTEMS PROFESSOR [facility] 1.2840.114 350.1.13.10 4.2.7.2.[id number] [facility] 2023-03-29 00:00:00 2023-03-29 00:00:00 Case Management Reyes Richards [facility] COMPUTER [employer]FORMATION SYSTEM[employer] PROFESSOR [facility] 1.2.840.114 350.1.13.10 4.2.7.2.[id number] [facility] 2023-03-26 00:00:00 2023-03-26 00:00:00 Telephone Zoe Goodman [facility] COMPUTER [employer]FORMATION SYSTEM[employer] PROFESSOR [facility] 1.2.840.114 350.1.13.10 4.2.7.2.[id number] [facility] 2023-03-24 00:00:00 2023-03-24 00:00:00 Telephone Zoe Goodman [facility] COMPUTER [employer]FORMATION [employer] PROFESSOR [facility] 1.2.840.114 350.1.13.10 4.2.7.2.[id number] [facility] 2023-03-23 00:00:00 2023-03-23 00:00:00 Refill Zoe Goodman [facility] COMPUTER [employer]FORMATION [employer] PROFESSOR [facility] 1.2.840.114 350.1.13.10 4.2.7.2.[id number] [facility] 2023-03-15 00:00:00 2023-03-15 00:00:00 Telephone Zoe Goodman [facility] COMPUTER [employer]FORMATION [employer] PROFESSOR [facility] 1.2.840.114 350.1.13.10 4.2.7.2.[id number] [facility] 2023-03-11 14:15:00 2023-03-11 14:52:50 Outpatient R ZOE GOODMAN [facility] [id number] [facility] 2023-03-11 14:15:00 2023-03-11 14:52:50 Routine Visit Zoe Goodman [facility] COMPUTER [employer]FORMATION [employer] PROFESSOR [facility] 1.2.840.114 350.1.13.10 4.2.7.2.[id number] [facility] 2023-03-04 08:45:00 2023-03-04 08:45:00 Outpatient R [facility] [id number] [facility] 2023-03-04 00:00:00 2023-03-04 00:00:00 Case Management Ashleyjuan Zoe Lincoln [facility] COMPUTER [employer]FORMATION SYSTEM[employer] PROFESSOR [facility] MATERNAL & CHILD HEALTH [facility] 1..840.114 350.1.13.10 4.2.7.2.[id number] [facility] 2023-03-04 00:00:00 2023-03-04 00:00:00 Telephone Zoe Goodman [facility] COMPUTER [employer]FORMATION SYSTEMS PROFESSOR [facility] 1.2.840.114 350.1.13.10 4.2.7.2.[id number] [facility] 2023-03-03 15:30:00 2023-03-03 15:45:33 Outpatient P HANNAH DANG SHANNON [facility] [id number] [facility] 2023-03-03 15:30:00 2023-03-03 15:45:33 Fell Cutter Visit 4, [facility] Us Room Hannah Dang [facility] 1.840.114 350.1.13.10 4.2.7.2.[id number] [facility] 2023-03-02 00:00:00 2023-03-02 00:00:00 Telephone Zoe Goodman [facility] COMPUTER [employer] PROFESSOR [facility] MATERNAL & CHILD [facility] 1..840.114 350.1.13.10 4.2.7.2.[id number] [facility] 2023-03-01 19:14:00 2023-03-01 20:36:00 Emergency X KAREN COLON [facility] [id number] [facility] 2023-03-01 19:14:00 2023-03-01 20:36:00 Emergency Karen Colon [facility] 1.2840.114 350.1.13.10 4.2.7.2.[id number] [facility] 2023-03-01 00:00:00 2023-03-01 00:00:00 Telephone Zoe Goodman [facility] COMPUTER [employer]FORMATION [employer] PROFESSOR [facility] MATERNAL & CHILD [facility] 1.2.840.114 350.1.13.10 4.2.7.2.[id number] [facility] 2023-02-27 00:00:00 2023-02-27 00:00:00 Nurse Triage Fermin Pathak [facility] 1.840.114 350.1.13.10 4.2.7.2.[id number] [facility] 2023-02-11 08:45:00 2023-02-11 09:47:24 Outpatient ZOE PARK [facility] [id number] [facility] 2023-02-11 08:45:00 2023-02-11 09:47:24 Initial Visit Zoe Goodman [facility] COMPUTER [employer] PROFESSOR [facility] 1.2840.114 350.1.13.10 4.2.7.2.[id number] [facility] 2023-02-11 00:00:00 2023-02-11 00:00:00 Orders Only Doctor Unassigned, Dennis Acres [facility] 1.2840.114 350.1.13.10 4.2.7.2.[id number] [facility] 2023-02-04 08:15:00 2023-02-04 08:15:00 Outpatient ZOE PARK [facility] [id number] [facility] 2023-01-05 11:00:00 2023-01-05 11:00:00 Outpatient CATALINA HURST [facility] [id number] [facility] 2022-12-30 16:20:00 2022-12-30 16:49:52 Outpatient R KAYLENE JOHNSTON [facility] [id number] [facility] 2022-12-30 16:20:00 2022-12-30 16:49:52 Urgent Care Kaylene Johnston Unknown, Attending [facility] 1.84114 350.1.13.10 4.2.7.2.[id number] [facility] 2022-12-30 00:00:00 2022-12-30 00:00:00 Orders Only Doctor Unassigned, Dennis Acres [facility] 1.114 350.1.13.10 4.2.7.2.[id number] [facility] 2022-12-25 00:00:00 2022-12-25 00:00:00 Refill Daya Catalina [facility] 1.84114 350.1.13.10 4.2.7.2.[id number] [facility] 2022-08-10 13:30:00 2022-08-10 13:30:00 Outpatient R CATALINA STAPLETON [facility] [id number] [facility] 2022-08-07 00:00:00 2022-08-07 00:00:00 Telephone [facility] 1.84114 350.1.13.10 4.2.7.2.[id number] [facility] 2022-08-07 00:00:00 2022-08-07 00:00:00 Patient Secure Msg Doctor Unassigned, Dennis Acres [facility] 1.84114 350.1.13.10 4.2.7.2.[id number] [facility] 2022-05-18 09:20:00 2022-05-18 09:40:00 Urgent Care Rhonda Guerratany [facility] 1.2.840.114 350.1.13.10 4.2.7.2.[id number] [facility] 2022-05-18 09:20:00 2022-05-18 09:36:56 Outpatient R ANUM GUERRA [facility] [id number] [facility] 2022-05-18 00:00:00 2022-05-18 00:00:00 Letter (Out) Provider, Jonathan Brock Urgent Care [facility] 1.2.840.114 350.1.13.10 4.2.7.2.[id number] [facility] 2022-05-05 00:00:00 2022-05-05 00:00:00 Refill Caprice Stover [facility] 1.2.840.114 350.1.13.10 4.2.7.2.[id number] [facility] 2022-03-30 16:00:00 2022-03-30 16:00:00 Outpatient CATALINA HURST [facility] [id number] [facility] 2022-03-30 16:00:00 2022-03-30 16:00:00 Outpatient R CATALINA STAPLETON [facility] [id number] [facility] 2022-03-30 16:00:00 2022-03-30 16:00:00 Outpatient R CATALINA STAPLETON [facility] [id number] [facility] 2022-03-06 14:00:00 2022-03-06 14:23:04 Outpatient R CHRISTINE PENA [facility] [id number] [facility] 2022-03-06 14:00:00 2022-03-06 14:23:04 Urgent [facility] 1..840.114 350.1.13.10 4.2.7.2.[id number] [facility] 2022-03-06 14:00:00 2022-03-06 14:23:04 Outpatient R CHRISTINE PENA [facility] [id number] [facility] 2022-03-05 09:00:00 2022-03-05 09:20:04 Outpatient Ute JEANCHRISTINE [facility] [id number] [facility] 2022-03-05 09:00:00 2022-03-05 09:20:04 Urgent Care KenaBritney eason [facility] 1.840.114 350.1.13.10 4.2.7.2.[id number] [facility] 2022-02-16 15:30:00 2022-02-16 15:45:00 Fell Cutter Visit Lab, Caprice Jean [facility] [place]?[facility] 1..840.114 350.1.13.10 4.2.7.2.[id number] [facility] 2022-02-16 15:30:00 2022-02-16 15:30:00 Outpatient CAPRICE JEAN [facility] [id number] [facility] 2022-02-16 14:30:00 2022-02-16 15:19:04 Office Visit Catalina Stapleton [facility] 1..840.114 350.1.13.10 4.2.7.2.[id number] [facility] 2022-02-16 14:30:00 2022-02-16 15:19:04 Outpatient R CATALINA STAPLETON [facility] [id number] [facility] [facility] 2022-02-16 14:30:00 2022-02-16 14:30:00 Outpatient R CATALINA STAPLETON [facility] [id number] [facility] 2022-02-06 13:00:00 2022-02-06 13:00:00 Outpatient R CAPRICE STOVER [facility] [id number] [facility] 2022-01-16 11:00:00 2022-01-16 11:00:00 [facility] 1.2.840.114 350.1.13.10 4.2.7.2.[id number] [facility] 2022-01-16 11:00:00 2022-01-16 09:54:38 Outpatient R MARI ANUM [facility] [id number] [facility] 2021-12-12 18:00:00 2021-12-12 18:48:04 Outpatient R MONTY CABRERA [facility] [id number] [facility] 2021-12-12 18:00:00 2021-12-12 18:20:00 Urgent Care Borislars Rafalaquiles Unknown, Attending [facility] 1.2.840.114 350.1.13.10 4.2.7.2.[id number] [facility] 2021-12-12 11:20:00 2021-12-12 11:20:00 Outpatient R MONTY CABRERA [facility] [id number] [facility] 2021-12-08 17:45:00 2021-12-08 18:20:03 Outpatient R VINCENT HERNANDEZ [facility] [id number] [facility] 2021-12-08 17:45:00 2021-12-08 18:20:03 Office Visit Vincent Hernandez [facility] COMPUTER [employer]FORMATION [employer] PROFESSOR [facility] MATERNAL & CHILD [facility] 1.840.114 350.1.13.10 4.2.7.2.[id number] [facility] 2021-12-04 15:30:00 2021-12-04 15:30:00 Outpatient R REYES RICHARDS [facility] [id number] [facility] 2021-12-02 15:45:00 2021-12-02 15:45:00 Outpatient R REYES RICHARDS [facility] [id number] [facility] 2021-11-21 14:15:00 2021-11-21 14:15:00 Outpatient P REYES RICHARDS [facility] [id number] [facility] 2021-11-21 13:00:00 2021-11-21 13:00:00 Outpatient P [facility] [id number] [facility] 2021-11-20 00:00:00 2021-11-20 00:00:00 Telephone Reyes Richards [facility] COMPUTER INFORMATION SYSTEM[employer] PROFESSOR [facility] MATERNAL & CHILD [facility] 1.840.114 350.1.13.10 4.2.7.2.[id number] [facility] 2021-11-07 09:15:00 2021-11-07 10:05:09 Outpatient R BRUCE CALLEJAS [facility] [id number] [facility] 2021-11-07 09:15:00 2021-11-07 10:05:09 Routine Visit Trimester, [facility] Res-1st Bruce Callejas [facility] 1.84.114 350.1.13.10 4.2.7.2.[id number] [facility] 2021-11-07 09:15:00 2021-11-07 10:05:09 Outpatient R BRITTA BRUCE [facility] [id number] [facility] 2021-11-06 14:45:00 2021-11-06 14:45:00 Routine Visit Reyes Richards [facility] COMPUTER INFORMATION SYSTEMS PROFESSOR [facility] MATERNAL & CHILD [facility] 1.2840.114 350.1.13.10 4.2.7.2.[id number] [facility] 2021-11-06 14:45:00 2021-11-06 10:06:06 Outpatient R REYES RICHARDS [facility] [id number] [facility] 2021-11-04 07:19:00 2021-11-04 10:56:00 Emergency X EUN SANTOS [facility] ERT [id number] [facility] 2021-11-04 07:19:00 2021-11-04 10:56:00 Emergency Eun Santos [facility] 1.840.114 350.1.13.10 4.2.7.2.[id number] [facility] 2021-11-04 07:19:00 2021-11-04 10:56:00 Emergency X EUN SANTOS [facility] ERT [id number] [facility] 2021-11-04 00:00:00 2021-11-04 00:00:00 Orders Only Doctor Unassigned, Dennis Acres [facility] 1.84.114 350.1.13.10 4.2.7.2.[id number] [facility] 2021-10-27 00:00:00 2021-10-27 00:00:00 Nurse Triage Velia Mackenzie [facility] 1.84.114 350.1.13.10 4.2.7.2.[id number] [facility] 2021-10-23 09:20:00 2021-10-23 09:20:00 Outpatient R JAKE KOCH III [facility] [id number] [facility] 2021-10-21 14:00:00 2021-10-21 15:22:33 Outpatient R REYES RICHARDS [facility] [id number] [facility] 2021-10-21 14:00:00 2021-10-21 15:22:33 Initial Visit Reyes Richards [facility] COMPUTER [employer]FORMATION SYSTEM[employer] PROFESSOR [facility] MATERNAL & CHILD [facility] 1..840.114 350.1.13.10 4.2.7.2.[id number] [facility] 2021-10-21 00:00:00 2021-10-21 00:00:00 Orders Only Doctor Unassigned, [place] Acres [facility] 1..840.114 350.1.13.10 4.2.7.2.[id number] [facility] 2021-05-09 11:00:00 2021-05-09 11:00:00 Outpatient R HERMELINDO MATIAS [facility] [id number] [facility] 2021-03-05 14:00:00 2021-03-05 14:00:00 Outpatient R REYES RICHARDS [facility] [id number] [facility] 2021-02-19 16:48:57 2021-02-19 17:22:20 Routine Visit Vincent Hernandez [facility] COMPUTER INFORMATION SYSTEMS PROFESSOR [facility] CHILD [facility] 1..840.114 350.1.13.10 4.2.7.2.[id number] [facility] 2021-02-19 16:30:00 2021-02-19 16:30:00 Outpatient R VINCENT HERNANDEZ [facility] [id number] [facility] 2021-02-06 10:20:00 2021-02-06 11:16:00 Emergency Josee Arrington [facility] 1.2.840.114 350.1.13.10 4.2.7.2.[id number] [facility] 2021-01-23 00:00:00 2021-01-23 00:00:00 Patient Secure Msg Doctor Unassigned, [place] Acres [facility] COMPUTER INFORMATION SYSTEMS PROFESSOR [facility] MATERNAL & CHILD [facility] 1.2840.114 350.1.13.10 4.2.7.2.[id number] [facility] 2021-01-10 09:30:00 2021-01-10 09:30:00 Outpatient REYES DHALIWAL [facility] [id number] [facility] 2021-01-09 00:00:00 2021-01-09 00:00:00 Telephone Reyes Richards [facility] COMPUTER INFORMATION SYSTEM[employer] PROFESSOR [facility] MATERNAL & CHILD [facility] 1.2840.114 350.1.13.10 4.2.7.2.[id number] [facility] 2021-01-09 00:00:00 2021-01-09 00:00:00 Orders Only Doctor Unassigned, Dennis Acres [facility] 1.2840.114 350.1.13.10 4.2.7.2.[id number] [facility] 2021-01-08 08:00:00 2021-01-08 08:00:00 Outpatient R REYES RICHARDS [facility] [id number] [facility] 2021-01-07 15:00:00 2021-01-07 21:17:00 Hospital Encounter [facility] Sarika Rik [facility] 1.20.114 350.1.13.10 4.2.7.2.[id number] [facility] 2021-01-07 00:00:00 2021-01-07 00:00:00 Telephone Reyes Richards [facility] COMPUTER INFORMATION SYSTEMS PROFESSOR [facility] CHILD [facility] 1.2.840.114 350.1.13.10 4.2.7.2.[id number] [facility] 2021-01-07 00:00:00 2021-01-07 00:00:00 Orders Only Doctor Unassigned, [place] Acres [facility] 1.2840.114 350.1.13.10 4.2.7.2.[id number] [facility] 2021-01-03 13:00:00 2021-01-03 13:00:00 Outpatient R TIMA HERRING [facility] [id number] [facility] 2021-01-03 11:07:56 2021-01-03 12:07:53 Routine Visit Reyes Richards [facility] COMPUTER INFORMATION SYSTEMS PROFESSOR [facility] 1.2840.114 350.1.13.10 4.2.7.2.[id number] [facility] 2021-01-03 11:00:00 2021-01-03 11:00:00 Outpatient R REYES RICHARDS [facility] [id number] [facility] 2021-01-02 00:00:00 2021-01-02 00:00:00 Nurse Triage Eloisa Wilson [facility] 1.2840.114 350.1.13.10 4.2.7.2.[id number] [facility] 2021-01-01 13:11:31 2021-01-01 13:26:31 Routine Visit Reyes Richards [facility] COMPUTER INFORMATION SYSTEMS PROFESSOR [facility] CHILD [facility] 1.2.840.114 350.1.13.10 4.2.7.2.[id number] [facility] 2021-01-01 13:15:00 2021-01-01 13:15:00 Outpatient R REYES RICHARDS [facility] [id number] [facility] 2020-12-29 11:56:00 2020-12-29 12:16:00 Laboratory Only Lab, Adc Eliseo Pena Christine [facility] Professio nal Office Building One 1..840.114 350.1.13.10 4.2.7.2.[id number] [facility] 2020-12-29 11:40:00 2020-12-29 11:40:00 Outpatient R [facility] [id number] [facility] 2020-12-27 00:00:00 2020-12-27 00:00:00 Abstract Reyes Richards [facility] COMPUTER INFORMATION SYSTEMS PROFESSOR [facility] CHILD [facility] 1.2.840.114 350.1.13.10 4.2.7.2.[id number] [facility] 2020-12-27 00:00:00 2020-12-27 00:00:00 Telephone Reyes Richards [facility] COMPUTER INFORMATION SYSTEMS PROFESSOR [facility] CHILD [facility] 1.2840.114 350.1.13.10 4.2.7.2.[id number] [facility] 2020-12-26 00:00:00 2020-12-26 00:00:00 Telephone Reyes Richards [facility] COMPUTER INFORMATION SYSTEMS PROFESSOR [facility] CHILD [facility] 1.2840.114 350.1.13.10 4.2.7.2.[id number] [facility] 2020-12-25 13:29:28 2020-12-25 14:41:02 Routine Visit Reyes Richards [facility] COMPUTER INFORMATION SYSTEMS PROFESSOR [facility] CHILD [facility] 1.2840.114 350.1.13.10 4.2.7.2.[id number] [facility] 2020-12-25 14:00:00 2020-12-25 14:00:00 Outpatient R REYES RICHARDS [facility] [id number] [facility] 2020-12-25 12:57:01 2020-12-25 13:27:01 Fell Cutter Visit Ultrasound, Rashel Tinoco [facility] COMPUTER INFORMATION SYSTEMS PROFESSOR [facility] MATERNAL & CHILD [facility] 1.0.114 350.1.13.10 4.2.7.2.[id number] [facility] 2020-12-23 16:00:00 2020-12-23 16:00:00 Outpatient R TIMA HERRING [facility] [id number] [facility] 2020-12-18 13:00:00 2020-12-18 13:00:00 Outpatient R REYES RICHARDS [facility] [id number] [facility] 2020-12-18 00:00:00 2020-12-18 00:00:00 Patient Secure Msg Doctor Unassigned, Dennis Acres [facility] 1.114 350.1.13.10 4.2.7.2.[id number] [facility] 2020-12-09 10:52:02 2020-12-09 11:07:02 Routine Visit Reyes Richards [facility] COMPUTER INFORMATION SYSTEMS PROFESSOR [facility] MATERNAL & CHILD [facility] 1..114 350.1.13.10 4.2.7.2.[id number] [facility] 2020-12-09 11:00:00 2020-12-09 11:00:00 Outpatient R REYES RICHARDS [facility] [id number] [facility] 2020-12-07 00:00:00 2020-12-07 00:00:00 Nurse Triage Shae Cullen [facility] 1.114 350.1.13.10 4.2.7.2.[id number] [facility] 2020-12-04 12:48:15 2020-12-04 13:45:19 Office Visit Tima Herring [facility] Alvina Fitzgerald [facility] 1..840.114 350.1.13.10 4.2.7.2.[id number] [facility] 2020-12-04 13:00:00 2020-12-04 13:00:00 Outpatient R TIMA HERRING [facility] [id number] [facility] 2020-12-04 10:12:46 2020-12-04 10:59:17 Routine Visit Reyes Richards [facility] COMPUTER INFORMATION SYSTEMS PROFESSOR [facility] CHILD [facility] 1..840.114 350.1.13.10 4.2.7.2.[id number] [facility] 2020-12-04 00:00:00 2020-12-04 00:00:00 Letter (Out) Reyes Richards [facility] COMPUTER INFORMATION SYSTEMS PROFESSOR [facility] CHILD [facility] 1..840.114 350.1.13.10 4.2.7.2.[id number] [facility] 2020-11-27 13:00:50 2020-11-27 13:30:50 Fell Cutter Visit Ultrasound, Rashel Tinoco [facility] COMPUTER INFORMATION SYSTEMS PROFESSOR [facility] CHILD [facility] 1..840.114 350.1.13.10 4.2.7.2.[id number] [facility] 2020-11-27 13:00:00 2020-11-27 13:00:00 Outpatient P [facility] [id number] [facility] 2020-11-27 00:00:00 2020-11-27 00:00:00 Abstract Reyes Richards [facility] COMPUTER INFORMATION SYSTEMS PROFESSOR [facility] CHILD [facility] 1.840.114 350.1.13.10 4.2.7.2.[id number] [facility] 2020-11-20 15:44:37 2020-11-20 15:59:37 Routine Visit Reyes Richards [facility] COMPUTER INFORMATION SYSTEMS PROFESSOR [facility] MATERNAL & CHILD [facility] 1.840.114 350.1.13.10 4.2.7.2.[id number] [facility] 2020-11-20 15:45:00 2020-11-20 15:45:00 Outpatient R REYES RICHARDS [facility] [id number] [facility] 2020-11-08 13:30:00 2020-11-08 13:30:00 Outpatient R REYES RICHARDS [facility] [id number] [facility] 2020-11-08 11:07:29 2020-11-08 11:48:32 Routine Visit Reyes Richards [facility] COMPUTER INFORMATION SYSTEMS PROFESSOR [facility] MATERNAL & CHILD [facility] ..114 350.1.13.10 4.2.7.2.[id number] [facility] 2020-11-08 11:00:00 2020-11-08 11:00:00 Outpatient R REYES RICHARDS [facility] [id number] [facility] 2020-11-06 10:45:00 2020-11-06 10:45:00 Outpatient R BRIDGERRADHA REYES [facility] [id number] [facility] 2020-10-30 12:59:19 2020-10-30 13:29:19 Fell Cutter Visit Ultrasound, Tylre Gentile [facility] COMPUTER INFORMATION SYSTEMS PROFESSOR [facility] MATERNAL & CHILD [facility] 1.840.114 350.1.13.10 4.2.7.2.[id number] [facility] 2020-10-30 13:00:00 2020-10-30 13:00:00 Outpatient P [facility] [id number] [facility] 2020-10-30 00:00:00 2020-10-30 00:00:00 Abstract Reyes Richards [facility] COMPUTER INFORMATION SYSTEMS PROFESSOR [facility] CHILD [facility] 1.2.840.114 350.1.13.10 4.2.7.2.[id number] [facility] 2020-10-25 13:14:35 2020-10-25 13:46:56 Routine Visit Reyes Richards [facility] COMPUTER INFORMATION SYSTEMS PROFESSOR [facility] CHILD [facility] 1.2.840.114 350.1.13.10 4.2.7.2.[id number] [facility] 2020-10-25 13:00:00 2020-10-25 13:00:00 Outpatient R REYES RICHARDS [facility] [id number] [facility] 2020-10-18 12:45:00 2020-10-18 12:45:00 Outpatient R REYES RICHARDS [facility] [id number] [facility] 2020-10-14 00:00:00 2020-10-14 00:00:00 Telephone Reyes Richards [facility] COMPUTER INFORMATION SYSTEMS PROFESSOR [facility] CHILD [facility] 1.2.840.114 350.1.13.10 4.2.7.2.[id number] [facility] 2020-10-11 14:37:11 2020-10-11 15:21:23 Routine Visit Reyes Richards [facility] COMPUTER INFORMATION SYSTEMS PROFESSOR [facility] CHILD [facility] 1.2.840.114 350.1.13.10 4.2.7.2.[id number] [facility] 2020-10-11 14:30:00 2020-10-11 14:30:00 Outpatient R REYES RICHARDS [facility] [id number] [facility] 2020-10-10 00:00:00 2020-10-10 00:00:00 Patient Secure Msg Doctor Unassigned, Dennis Acres [facility] COMPUTER INFORMATION SYSTEMS PROFESSOR [facility] CHILD [facility] 1..840.114 350.1.13.10 4.2.7.2.[id number] [facility] 2020-10-08 09:16:07 2020-10-08 10:17:01 Urgent Care Provider, [facility] Cristian Day [facility] Professregino nal Office Building One 1..840.114 350.1.13.10 4.2.7.2.[id number] [facility] 2020-10-08 09:00:00 2020-10-08 09:00:00 Outpatient R JAMES DAYTHIA [facility] [id number] [facility] 2020-10-07 00:00:00 2020-10-07 00:00:00 Abstract Reyes Richards [facility] COMPUTER INFORMATION SYSTEMS PROFESSOR [facility] 1.840.114 350.1.13.10 4.2.7.2.[id number] [facility] 2020-10-02 14:40:05 2020-10-02 15:25:05 Fell Cutter Visit Ultrasound, Rashel Tinoco [facility] COMPUTER INFORMATION SYSTEMS PROFESSOR [facility] CHILD [facility] 1..840.114 350.1.13.10 4.2.7.2.[id number] [facility] 2020-10-02 14:30:00 2020-10-02 14:30:00 Outpatient P [facility] [id number] [facility] 2020-10-02 00:00:00 2020-10-02 00:00:00 Telephone Reyes Richards [facility] COMPUTER INFORMATION SYSTEMS PROFESSOR [facility] CHILD [facility] 1.2.840.114 350.1.13.10 4.2.7.2.[id number] [facility] 2020-09-23 09:00:00 2020-09-23 09:00:00 Outpatient R VISHNU REYES [facility] [id number] [facility] 2020-09-20 14:50:44 2020-09-20 15:12:59 Routine Visit Reyes Richards [facility] COMPUTER INFORMATION SYSTEMS PROFESSOR [facility] CHILD [facility] 1.2.840.114 350.1.13.10 4.2.7.2.686 [id number] 107 [id number] 2020-09-20 14:50:44 2020-09-20 15:12:59 Routine Visit Reyes Richards [facility] COMPUTER INFORMATION SYSTEMS PROFESSOR [facility] CHILD [facility] 1.2840.114 350.1.13.10 4.2.7.2.[id number] [facility] 2020-09-20 15:00:00 2020-09-20 15:00:00 Outpatient R REYES RICHARDS [facility] [id number] [facility] 2020-09-20 14:00:00 2020-09-20 14:00:00 Outpatient R REYES RICHARDS [facility] [id number] [facility] 2020-09-09 00:00:00 2020-09-09 00:00:00 Abstract Reyes Richards [facility] COMPUTER INFORMATION SYSTEMS PROFESSOR [facility] CHILD [facility] 1.2840.114 350.1.13.10 4.2.7.2.686 [id number] 2020-09-09 00:00:00 2020-09-09 00:00:00 Abstract Reyes Richards [facility] COMPUTER INFORMATION SYSTEMS PROFESSOR [facility] CH[facility] 1.2.840.114 350.1.13.10 4.2.7.2.[id number] [facility] 2020-09-05 13:33:01 2020-09-05 15:36:46 Fell Cutter Visit 2, [facility] Room [facility] 1.2.840.114 350.1.13.10 4.2.7.2.686 [id number] 2020-09-05 13:33:01 2020-09-05 15:36:46 Fell Cutter Visit 2, [facility] 1.2.840.114 350.1.13.10 4.2.7.2.[id number] [facility] 2020-09-05 13:30:00 2020-09-05 13:30:00 Outpatient P [facility] [id number] [facility] 2020-09-05 13:00:00 2020-09-05 13:00:00 Outpatient P [facility] [id number] [facility] 2020-09-05 00:00:00 2020-09-05 00:00:00 Letter (Out) Gretchen arroyo [facility] 1.2.840.114 350.1.13.10 4.2.7.2.686 [id number] 2020-09-05 00:00:00 2020-09-05 00:00:00 Letter (Out) Gretchen arroyo [facility] 1.2.840.114 350.1.13.10 4.2.7.2.[id number] [facility] 2020-08-23 14:04:04 2020-08-23 15:06:18 Routine Visit Reyes Richards [facility] COMPUTER INFORMATION SYSTEMS PROFESSOR [facility] MAT[facility] & [facility] [id number] 2020-08-23 14:04:04 2020-08-23 15:06:18 Routine Visit Reyes Richards [facility] COMPUTER INFORMATION SYSTEMS PROFESSOR [facility]ILD [facility] [id number] [facility] 2020-08-23 14:00:00 2020-08-23 14:00:00 Outpatient R REYES RICHARDS [facility] [id number] [facility] 2020-07-29 09:15:00 2020-07-29 09:15:00 Outpatient R [facility] [id number] [facility] 2020-07-29 08:08:23 2020-07-29 08:53:23 Telemedici ne Visit Faculty, Jonathan Mercedes [facility] COMPUTER INFORMATION SYSTEMS PROFESSOR [facility] [facility] 1.2.840.114 350.1.13.10 4.2.7.2.686 [id number] 107 [id number] 2020-07-29 08:08:23 2020-07-29 08:53:23 Telemedici ne Visit Faculty, Jonathan Garciarandall [facility] Ran Walsh [facility] COMPUTER INFORMATION SYSTEMS PROFESSOR [facility] 1.2.840.114 350.1.13.10 4.2.7.2.[id number] [facility] 2020-07-26 14:10:32 2020-07-26 14:29:49 Routine Visit Reyes Richards [facility] COMPUTER [employer]FORMATION SYSTEMS PROFESSOR [facility] 1.2.840.114 350.1.13.10 4.2.7.2.686 [id number] 107 [id number] 2020-07-26 14:10:32 2020-07-26 14:29:49 Routine Visit Reyes Richards [facility] COMPUTER INFORMATION SYSTEMS PROFESSOR [facility] 1.2.840.114 350.1.13.10 4.2.7.2.[id number] [facility] 2020-07-26 14:00:00 2020-07-26 14:00:00 Outpatient R REYES RICHARDS [facility] [id number] [facility] 2020-07-25 13:00:00 2020-07-25 13:00:00 Outpatient R REYES RICHARDS [facility] [id number] [facility] 2020-07-19 00:00:00 2020-07-19 00:00:00 Abstract Reyes Richards [facility] COMPUTER INFORMATION SYSTEMS PROFESSOR [facility] 1.840.114 350.1.13.10 4.2.7.2.686 [id number] 107 [id number] 2020-07-19 00:00:00 2020-07-19 00:00:00 Abstract Reyes Richards [facility] COMPUTER [employer]FORMATION SYSTEMS PROFESSOR [facility] 1.840.114 350.1.13.10 4.2.7.2.[id number] [facility] 2020-07-18 13:50:07 2020-07-18 14:09:23 Fell Cutter Visit Lab, [facility] 1..114 350.1.13.10 4.2.7.2.686 [id number] 113 [id number] 2020-07-18 13:50:07 2020-07-18 14:09:23 Fell Cutter Visit Lab, [facility] Tyler Fernandez [facility] 1..114 350.1.13.10 4.2.7.2.[id number] [facility] 2020-07-18 14:00:00 2020-07-18 14:00:00 Outpatient R [facility] [id number] [facility] 2020-07-18 12:59:10 2020-07-18 13:43:54 Fell Cutter Visit 1, [facility] 1.2.840.114 350.1.13.10 4.2.7.2.686 [id number] 104 [id number] 2020-07-18 12:59:10 2020-07-18 13:43:54 Fell Cutter Visit 1, [facility] Room [facility] 1.2.840.114 350.1.13.10 4.2.7.2.[id number] [facility] 2020-07-18 00:00:00 2020-07-18 00:00:00 Letter (Out) [facility] 1.2.840.114 350.1.13.10 4.2.7.2.686 [id number] 104 [id number] 2020-07-18 00:00:00 2020-07-18 00:00:00 Case Management [facility] 1.2.840.114 350.1.13.10 4.2.7.2.686 [id number] 113 [id number] 2020-07-18 00:00:00 2020-07-18 00:00:00 [facility] (Out) [facility] 1.2.840.114 350.1.13.10 4.2.7.2.[id number] [facility] 2020-07-18 00:00:00 2020-07-18 00:00:00 Case Management [facility] 1.2.840.114 350.1.13.10 4.2.7.2.[id number] [facility] 2020-07-16 00:00:00 2020-07-16 00:00:00 Patient Secure Msg Doctor Unassigned, Dennis Acres [facility] COMPUTER INFORMATION SYSTEMS PROFESSOR [facility] MATERNAL & CHILD [facility] 1.2.840.114 350.1.13.10 4.2.7.2.[id number] [facility] 2020-07-15 08:10:49 2020-07-15 16:33:08 Telemedici ne Visit Faculty, Jonathan Mcdonald [facility] COMPUTER INFORMATION SYSTEMS PROFESSOR [facility] 1.2.840.114 350.1.13.10 4.2.7.2.686 [id number] 107 [id number] 2020-07-15 08:10:49 2020-07-15 16:33:08 Telemedici ne Visit Faculty, Hannah Lozano [facility] COMPUTER INFORMATION SYSTEMS PROFESSOR [facility]ILD [facility] 1.2.840.114 350.1.13.10 4.2.7.2.[id number] [facility] 2020-07-15 10:30:00 2020-07-15 10:30:00 Outpatient R [facility] [id number] [facility] 2020-07-14 00:00:00 2020-07-14 00:00:00 [facility] 1.2.840.114 350.1.13.10 4.2.7.2.686 [id number] [id number] 2020-07-14 00:00:00 2020-07-14 00:00:00 [facility] 1.2.840.114 350.1.13.10 4.2.7.2.[id number] [facility] 2020-07-01 00:00:00 2020-07-01 00:00:00 Abstract Reyes Richards [facility] COMPUTER INFORMATION SYSTEMS PROFESSOR [facility] 1.2.840.114 350.1.13.10 4.2.7.2.686 [id number] 107 [id number] 2020-07-01 00:00:00 2020-07-01 00:00:00 Abstract Reyes Richards [facility] COMPUTER INFORMATION SYSTEMS PROFESSOR [facility] 1.2.840.114 350.1.13.10 4.2.7.2.[id number] [facility] 2020-06-28 12:40:24 2020-06-28 13:25:24 Fell Cutter Visit 1, [facility] Room [facility] 1.2.840.114 350.1.13.10 4.2.7.2.686 [id number] 104 [id number] 2020-06-28 12:40:24 2020-06-28 13:25:24 Fell Cutter Visit 1, [facility] Room Rashel Ackreman [facility] 1.2.840.114 350.1.13.10 4.2.7.2.[id number] [facility] 2020-06-28 13:00:00 2020-06-28 13:00:00 Outpatient P [facility] [id number] [facility] 2020-06-27 13:00:22 2020-06-27 13:39:22 Routine Visit Reyes Richards [facility] COMPUTER INFORMATION SYSTEMS PROFESSOR [facility] 1.2.840.114 350.1.13.10 4.2.7.2.686 [id number] 107 [id number] 2020-06-27 13:00:22 2020-06-27 13:39:22 Routine Visit Reyes Richards [facility] COMPUTER INFORMATION SYSTEMS PROFESSOR [facility] 1.2.840.114 350.1.13.10 4.2.7.2.[id number] [facility] 2020-06-27 13:00:00 2020-06-27 13:00:00 Outpatient R REYES RICHARDS [facility] [id number] [facility] 2020-06-26 09:15:00 2020-06-26 09:15:00 Outpatient R REYES RICHARDS [facility] [id number] [facility] 2020-06-17 10:47:26 2020-06-17 11:48:07 Routine Visit Jonathan Ann [facility] COMPUTER INFORMATION SYSTEMS PROFESSOR [facility] 1.20.114 350.1.13.10 4.2.7.2.686 [id number] 107 [id number] 2020-06-17 10:47:26 2020-06-17 11:48:07 Routine Visit Faculty, Alexa Espana [facility] COMPUTER INFORMATION SYSTEMS PROFESSOR [facility] MATERNAL & CHILD [facility] 1.20.114 350.1.13.10 4.2.7.2.[id number] [facility] 2020-06-17 10:30:00 2020-06-17 10:30:00 Outpatient R [facility] [id number] [facility] 2020-06-17 00:00:00 2020-06-17 00:00:00 Orders Only Doctor Unassigned, Dennis Acres [facility] 1.840.114 350.1.13.10 4.2.7.2.[id number] [facility] 2020-06-13 09:00:00 2020-06-13 09:00:00 Outpatient R [facility] [id number] [facility] 2020-06-03 00:00:00 2020-06-03 00:00:00 Telephone Reyes Richards [facility] COMPUTER INFORMATION SYSTEMS PROFESSOR [facility] 1.840.114 350.1.13.10 4.2.7.2.[id number] [facility] 2020-05-28 13:09:30 2020-05-28 14:10:12 Initial Visit Reyes Richards [facility] COMPUTER INFORMATION SYSTEMS PROFESSOR [facility] 1.20.114 350.1.13.10 4.2.7.2.[id number] [facility] 2020-05-28 13:00:00 2020-05-28 13:00:00 Outpatient R REYES RICHARDS [facility] [id number] [facility] 2020-05-28 00:00:00 2020-05-28 00:00:00 Orders Only Doctor Unassigned, [place]res [facility] 1.2.840.114 350.1.13.10 4.2.7.2.[id number] [facility] 2020-05-15 00:00:00 2020-05-15 00:00:00 Telephone Reyes Richards [facility] COMPUTER INFORMATION SYSTEMS PROFESSOR [facility] 1.2.840.114 350.1.13.10 4.2.7.2.[id number] [facility] 2020-03-27 09:45:00 2020-03-27 09:45:00 Outpatient R REYES RICHARDS [facility] [id number] [facility] 2020-03-11 13:30:00 2020-03-11 13:30:00 Outpatient R REYES RICHARDS [facility] [id number] [facility] 2020-03-11 00:00:00 2020-03-11 00:00:00 Telephone Reyes Richards [facility] COMPUTER INFORMATION SYSTEMS PROFESSOR [facility] 1.2.840.114 350.1.13.10 4.2.7.2.[id number] [facility] 2020-02-19 15:54:50 2020-02-19 16:20:25 Routine Visit Reyes Richards [facility] COMPUTER INFORMATION SYSTEMS PROFESSOR [facility] 1.2.840.114 350.1.13.10 4.2.7.2.[id number] [facility] 2020-02-19 16:00:00 2020-02-19 16:00:00 Outpatient R REYES RICHARDS [facility] [id number] [facility] 2020-02-13 09:00:00 2020-02-13 09:00:00 Outpatient R REYES RICHARDS [facility] [id number] [facility] 2020-01-19 19:18:00 2020-01-22 17:30:00 Hospital Encounter Rebecca Hoff [facility] 1..114 350.1.13.10 4.2.7.2.[id number] [facility] 2020-01-19 15:53:23 2020-01-19 16:37:17 Routine Visit Reyes Richards [facility] COMPUTER INFORMATION SYSTEMS PROFESSOR [facility] 1..114 350.1.13.10 4.2.7.2.[id number] [facility] 2020-01-19 16:00:00 2020-01-19 16:00:00 Outpatient R REYES RICHARDS [facility] [id number] [facility] 2020-01-19 00:00:00 2020-01-19 00:00:00 Orders Only Doctor Unassigned, Dennis Acres [facility] 1..114 350.1.13.10 4.2.7.2.[id number] [facility] 2020-01-11 14:50:53 2020-01-11 15:22:24 Routine Visit Provider, Joycelyn Rose [facility] COMPUTER INFORMATION SYSTEMS PROFESSOR [facility] MATERNAL & CHILD [facility] 1..114 350.1.13.10 4.2.7.2.[id number] [facility] 2020-01-11 15:00:00 2020-01-11 15:00:00 Outpatient R [facility] [id number] [facility] 2020-01-05 14:12:11 2020-01-05 14:27:11 Routine Visit Reyes Richards [facility] COMPUTER INFORMATION SYSTEMS PROFESSOR [facility] 1..114 350.1.13.10 4.2.7.2.[id number] [facility] 2020-01-05 14:15:00 2020-01-05 14:15:00 Outpatient R REYES RICHARDS [facility] [id number] [facility] 2020-01-01 00:00:00 2020-01-01 00:00:00 Nurse Triage Ezra Shannan Watson [facility] 1.2.840.114 350.1.13.10 4.2.7.2.[id number] [facility] 2020-01-01 00:00:00 2020-01-01 00:00:00 Nurse Triage Kaylene Dorsey [facility] 1.2.840.114 350.1.13.10 4.2.7.2.[id number] [facility] 2019-12-29 00:00:00 2019-12-29 00:00:00 Telephone Reyes Richards [facility] COMPUTER INFORMATION SYSTEMS PROFESSOR [facility] 1.2.840.114 350.1.13.10 4.2.7.2.[id number] [facility] 2019-12-28 00:00:00 2019-12-28 00:00:00 Nurse Triage Toshia Tan [facility] 1.2.840.114 350.1.13.10 4.2.7.2.[id number] [facility] 2019-12-20 14:30:00 2019-12-20 14:30:00 Outpatient R REYES RICHARDS [facility] [id number] [facility] 2019-12-20 11:43:03 2019-12-20 14:19:06 Telemedici ne Visit Reyes Richards [facility] COMPUTER INFORMATION SYSTEMS PROFESSOR [facility] 1.2.840.114 350.1.13.10 4.2.7.2.[id number] [facility] 2019-12-14 18:31:58 2019-12-14 23:45:00 Emergency Amy Matias Vien Cam [facility] 1.2.840.114 350.1.13.10 4.2.7.2.[id number] [facility] 2019-12-04 12:49:08 2019-12-04 14:24:22 Telemedici ne Visit Reyes Richards [facility] COMPUTER INFORMATION SYSTEMS PROFESSOR [facility] MATERNAL & CHILD [facility] 1.2.840.114 350.1.13.10 4.2.7.2.[id number] [facility] 2019-12-04 14:00:00 2019-12-04 14:00:00 Outpatient R REYES RICHARDS [facility] [id number] [facility] 2019-11-24 00:00:00 2019-11-24 00:00:00 Telephone Reyes Richards [facility] COMPUTER INFORMATION SYSTEMS PROFESSOR [facility] MATERNAL & CHILD [facility] 1.2840.114 350.1.13.10 4.2.7.2.[id number] [facility] 2019-11-21 13:34:25 2019-11-21 14:28:43 Routine Visit Reyes Richards [facility] COMPUTER INFORMATION SYSTEMS PROFESSOR [facility] 1.2.840.114 350.1.13.10 4.2.7.2.[id number] [facility] 2019-11-21 14:00:00 2019-11-21 14:00:00 Outpatient R REYES RICHARDS [facility] [id number] [facility] 2019-11-21 00:00:00 2019-11-21 00:00:00 Orders Only Doctor Unassigned, Dennis Acres [facility] 1.2.840.114 350.1.13.10 4.2.7.2.[id number] [facility] 2019-11-08 00:00:00 2019-11-08 00:00:00 Telephone Reyes Richards Phu [facility] COMPUTER INFORMATION SYSTEMS PROFESSOR [facility] MATERNAL & CHILD [facility] 1.2.840.114 350.1.13.10 4.2.7.2.[id number] [facility] 2019-11-07 07:56:19 2019-11-07 09:14:35 Routine Visit Tankjose mradha Re[place] [facility] COMPUTER INFORMATION SYSTEMS PROFESSOR [facility] 1.2.840.114 350.1.13.10 4.2.7.2.[id number] [facility] 2019-11-07 08:00:00 2019-11-07 08:00:00 Outpatient R REYES RICHARDS [facility] [id number] [facility] 2019-11-06 14:00:00 2019-11-06 14:00:00 Outpatient R REYES RICHARDS [facility] [id number] [facility] 2019-11-03 00:00:00 2019-11-03 00:00:00 Telephone Reyes Richards Phu [facility] COMPUTER INFORMATION SYSTEMS PROFESSOR [facility] 1.2.840.114 350.1.13.10 4.2.7.2.[id number] [facility] 2019-10-25 00:00:00 2019-10-25 00:00:00 Telephone BridgerradhaReyes Phu [facility] COMPUTER INFORMATION SYSTEMS PROFESSOR [facility] 1.2.840.114 350.1.13.10 4.2.7.2.[id number] [facility] 2019-10-18 14:43:00 2019-10-18 18:45:00 Hospital Encounter Sarika Fuller [facility] 1.2.840.114 350.1.13.10 4.2.7.2.[id number] [facility] 2019-10-18 14:43:00 2019-10-18 14:43:00 Outpatient P SARIKA FULLER [facility] [id number] [facility] 2019-10-09 13:43:54 2019-10-09 14:44:59 Routine Visit Reyes Richards [facility] COMPUTER INFORMATION SYSTEMS PROFESSOR [facility] MATERNAL & CHILD [facility] 1.0.114 350.1.13.10 4.2.7.2.[id number] [facility] 2019-10-09 13:45:00 2019-10-09 13:45:00 Outpatient R REYES RICHARDS [facility] [id number] [facility] 2019-10-08 00:00:00 2019-10-08 00:00:00 Nurse Triage Shannan Munguia [facility] 1..114 350.1.13.10 4.2.7.2.[id number] [facility] 2019-09-19 00:00:00 2019-09-19 00:00:00 Abstract Reyes Richards [facility] COMPUTER INFORMATION SYSTEMS PROFESSOR [facility] 1..114 350.1.13.10 4.2.7.2.[id number] [facility] 2019-09-15 14:15:00 2019-09-15 15:34:37 Outpatient P TYLER FERNANDEZ [facility] [id number] [facility] 2019-09-11 13:57:39 2019-09-11 14:43:22 Routine Visit Reyes Richards [facility] COMPUTER INFORMATION SYSTEMS PROFESSOR [facility] 1..114 350.1.13.10 4.2.7.2.[id number] [facility] 2019-09-09 08:42:00 2019-09-09 09:45:00 Hospital Encounter Swati Vang [facility] 1.2.840.114 350.1.13.10 4.2.7.2.[id number] [facility] 2019-09-09 00:00:00 2019-09-09 00:00:00 Nurse Triage Karina Cortes [facility] 1.2.840.114 350.1.13.10 4.2.7.2.[id number] [facility] 2019-08-07 16:11:15 2019-08-07 16:33:12 Fell Cutter Visit Lab, [facility] 1.2.840.114 350.1.13.10 4.2.7.2.[id number] [facility] 2019-07-27 18:02:33 2019-07-27 20:29:00 Emergency X CUONG ZAPATA [facility] ERT [id number] [facility] 2019-07-09 04:46:46 2019-07-09 06:27:00 Emergency X DEVIN MATHEW [facility] ERT [id number] [facility] Results Test Description Test Time Test Comments Results Result Co mments Source [facility], [id number] 05:57:34* Test Item Value Reference Range Interpretation Comme [facility] VIT B12 (test code = 4419668352) 318 pg/mL 240-930 MILLIE (test code = MILLIE) Biotin has been reported to cause a positive bias, interpret results relative to patient's use of biotin. Lab Interpretation (test code = 70790-1) Normal [facility] D, [id number] 21:06:31* Test Item Value Reference Range Interpretation Comme [facility] VIT D 25OH (test code = 49173-9) 39 ng/mL 25-80 MILLIE (test code = MILLIE) Deficiency: <20 ng/mLInsufficiency : 20-24 ng/mLOptimal: 25-80 ng/mL Lab Interpretation (test code = 13128-1) Normal [facility] Center[facility]. Metabolic Panel (53212)2024-01-05 19:58:35* Test Item Value Reference Range Interpretation Comme nts NA (test code = 4602056969) 138 mmol/L 135-145 K (test code = 4120788267) 4.2 mmol/L 3.5-5.0 CL (test code = 2542643610) 107 mmol/L 98-108 CO2 TOTAL (test code = 4549278515) 24 mmol/L 23-31 AGAP (test code = 5744738857) 7 2-16 BUN (test code = 1431731217) 8 mg/dL 7-23 GLUCOSE (test code = 8958202830) 94 mg/dL 70-110 CREATININE (test code = 2160-0) 0.56 mg/dL 0.50-1.04 TOTAL BILI (test code = 1463772322) 0.7 mg/dL 0.1-1.1 CALCIUM (test code = 5580133675) 9.5 mg/dL 8.6-10.6 T PROTEIN (test code = 4072437582) 8.0 g/dL 6.3-8.2 ALBUMIN (test code = 8586488888) 4.4 g/dL 3.5-5.0 ALK PHOS (test code = 0541246378) 75 U/L 34-122 ALTv (test code = 1742-6) 19 U/L 5-35 AST(SGOT) (test code = 4641256927) 21 U/L 13-40 eGFR (test code = 62555-4) 130.9 mL/min/1.73m2 CKD-EPI eGFR (20 21). Assuming creatinine has been stable day-to-day for at least three months, the eGFR indicates Category G1 (>= 90 mL/min/1.73 m2) [facility] Center[facility]cosylated Hemoglobin (A1C)2024-01-05 19:42:10* Test Item Value Reference Range Interpretation Comme nts HGB A1C (test code = 4548-4) 4.9 % 4.0-5.7 MILLIE (test code = MILLIE) Reference RangesNormal: <5.7%Prediabetes: 5.7 - 6.4%Diabetes: > 6.5% Lab Interpretation (test code = 79373-7) Normal [facility] CenterCbc with [id number] 23:00:45* Test Item Value Reference Range Interpretation Comme nts WBC (test code = 6690-2) 17.77 4.30-11.10 H RBC (test code = 789-8) 2.92 3.93-5.25 L HGB (test code = 718-7) 8.3 g/dL 11.6-15.0 L HCT (test code = 4544-3) 25.5 % 35.7-45.2 L MCV (test code = 787-2) 87.3 fL 80.6-95.5 MCH (test code = 785-6) 28.4 pg 25.9-32.8 MCHC (test code = 786-4) 32.5 g/dL 31.6-35.1 RDW-SD (test code = 69173-0) 41.0 fL 39.0-49.9 RDW-CV (test code = 788-0) 12.9 % 12.0-15.5 PLT (test code = 777-3) 304 166-358 MPV (test code = 67986-9) 10.4 fL 9.5-12.9 NRBC/100 WBC (test code = 5108227637) 0.0 0.0-10.0 NRBC x10^3 (test code = 1503821473) See_Comment [Automated message] The system which generated this result transmitted reference range: 10*3/?L. The reference range was not used to interpret this result as normal/abnormal. GRAN MAT (NEUT) % (test code = 770-8) 84.2 % IMM GRAN % (test code = 9849097075) 0.50 % LYMPH % (test code = 736-9) 8.4 % MONO % (test code = 5905-5) 6.6 % EOS % (test code = 713-8) 0.1 % BASO % (test code = 706-2) 0.2 % GRAN MAT x10^3(ANC) (test code = 7235622681) 14.96 10*3/uL 1.88-7.09 H IMM GRAN x10^3 (test code = 4349445068) 0.09 10*3/uL 0.00-0.06 H LYMPH x10^3 (test code = 731-0) 1.50 10*3/uL 1.32-3.29 MONO x10^3 (test code = 742-7) 1.18 10*3/uL 0.33-0.92 H EOS x10^3 (test code = 711-2) 0.03-0.39 L BASO x10^3 (test code = 704-7) 0.03 10*3/uL 0.01-0.07 Lab Interpretation (test code = 20083-8) Abnormal [facility] with [id number] 23:00:45* Test Item Value Reference Range Interpretation Comme nts WBC (test code = 6690-2) 17.77 4.30-11.10 H RBC (test code = 789-8) 2.92 3.93-5.25 L HGB (test code = 718-7) 8.3 g/dL 11.6-15.0 L HCT (test code = 4544-3) 25.5 % 35.7-45.2 L MCV (test code = 787-2) 87.3 fL 80.6-95.5 MCH (test code = 785-6) 28.4 pg 25.9-32.8 MCHC (test code = 786-4) 32.5 g/dL 31.6-35.1 RDW-SD (test code = 87484-5) 41.0 fL 39.0-49.9 RDW-CV (test code = 788-0) 12.9 % 12.0-15.5 PLT (test code = 777-3) 304 166-358 MPV (test code = 13338-8) 10.4 fL 9.5-12.9 NRBC/100 WBC (test code = 7230945421) 0.0 0.0-10.0 NRBC x10^3 (test code = 7699266660) See_Comment [Automated message] The system which generated this result transmitted reference range: 10*3/?L. The reference range was not used to interpret this result as normal/abnormal. GRAN MAT (NEUT) % (test code = 770-8) 84.2 % IMM GRAN % (test code = 9587257535) 0.50 % LYMPH % (test code = 736-9) 8.4 % MONO % (test code = 5905-5) 6.6 % EOS % (test code = 713-8) 0.1 % BASO % (test code = 706-2) 0.2 % GRAN MAT x10^3(ANC) (test code = 5266118834) 14.96 10*3/uL 1.88-7.09 H IMM GRAN x10^3 (test code = 5817789786) 0.09 10*3/uL 0.00-0.06 H LYMPH x10^3 (test code = 731-0) 1.50 10*3/uL 1.32-3.29 MONO x10^3 (test code = 742-7) 1.18 10*3/uL 0.33-0.92 H EOS x10^3 (test code = 711-2) 0.03-0.39 L BASO x10^3 (test code = 704-7) 0.03 10*3/uL 0.01-0.07 Lab Interpretation (test code = 78402-4) Abnormal [facility] GLUCOSE (AUTOMATED)2023-09-16 21:10:51* Test Item Value Reference Range Interpretation Comme nts POCT GLU (test code = 4413801203) 94 mg/dL 70-110 Lab Interpretation (test cod e = 57873-3) Normal [facility] GLUCOSE (AUTOMATED)2023-09-16 21:10:51* Test Item Value Reference Range Interpretation Comme nts POCT GLU (test code = 7006121435) 94 mg/dL 70-110 Lab Interpretation (test cod e = 92065-1) Normal [facility] (D) IMMUNE [id number] 17:43:00* Test Item Value Reference Range Interpretation Comme nts RHIG CANDIDATE? (test code = 5188) No- see comment Patient is not a candidate for RhIg- Patient is Rh Positive.Performed at [facility] Laboratory Services - [facility] Blood [address] [place] [address]Dohz Free: [phone] No. [id number] [facility] (D) IMMUNE [id number] 17:43:00* Test Item Value Reference Range Interpretation Comme nts RHIG CANDIDATE? (test code = 5188) No- see comment Patient is not a candidate for RhIg- Patient is Rh Positive.Performed at [facility] Laboratory Services - [facility] Blood [address] [address]Gjjb Free: [phone] No. [id number] [facility] ONLY - SYPHILIS IGG/[id number] 16:10:09* Test Item Value Reference Range Interpretation Comme nts Syphilis IgG/IgM (test code = 68463-6) Non-reactive Non-reactive MILLIE (test code = MILLIE) Non-reactive - No serologic evidence of T. pallidum infection. Cannot exclude incubating or early syphilis. Submit a second specimen in 2-4 weeks if syphilis is clinically suspected. Equivocal - Further testing to follow. Reactive - Further testing to follow. Lab Interpretation (test code = 24439-9) Normal [facility] ONLY - SYPHILIS [id number] 16:10:09* Test Item Value Reference Range Interpretation Comme [facility] Syphilis IgG/IgM (test code = 58792-3) Non-reactive Non-reactive MILLIE (test code = MILLIE) Non-reactive - No serologic evidence of T. pallidum infection. Cannot exclude incubating or early syphilis. Submit a second specimen in 2-4 weeks if syphilis is clinically suspected. Equivocal - Further testing to follow. Reactive - Further testing to follow. Lab Interpretation (test code = 28896-2) Normal [facility] Cord [id number] 12:46:35* Test Item Value Reference Range Interpretation Comme [facility] VENOUS BASE EXCESS, CORD (te st code = 7324403386) -1.1 mEq/L VENOUS PH, CORD (test code = 1038268188) 7.35 7.25-7.45 VENOUS PC02, CORD (test code = 4708645237) 46 27-49 VENOUS PO2, CORD (test code = 7700652303) 23 17-41 VENOUS BICARBONATE, CORD (te st code = 5036899796) 25 12-29 [facility] Cord [id number] 12:46:35* Test Item Value Reference Range Interpretation Comme [facility] VENOUS BASE EXCESS, CORD (te st code = 2203038810) -1.1 mEq/L VENOUS PH, CORD (test code = 8284571052) 7.35 7.25-7.45 VENOUS PC02, CORD (test code = 0616631221) 46 27-49 VENOUS PO2, CORD (test code = 6953712074) 23 17-41 VENOUS BICARBONATE, CORD (te st code = 3836523811) 25 12-29 [facility] [id number] 08:10:00 Bulmaro Newberry MD ? ? 09/16/2023 ?2:10 AM Central Neuraxial Block Date/Time: 09/16/2023 2:10 AM Performed by: Bulmaro Newberry MDAuthorized by: Alonso Reynolds MD ?Patient Location: OBEnd Time: 09/16/2023 2:10 AMReason for Block: OB request, Patient request, Labor analgesia, Surgical anesthesia and Post-op pain managementStaff: ?Anesthesiologist: Alonso Reynolds MD ?Resident/RUBBING BED OPERATOR: Bulmaro Newberry MD ?Performed by: resident/CRNAPreanesthetic Checklist: patient identified, IV checked, risks and benefits explained, monitors and equipment checked, timeout performed, pre-op evaluation, site marked and anesthesia consentProcedure: ?Type of Neuraxial: Epidural ?Epidural Description: 1st at [facility] ? Sterility Prep cap, gloves, mask and drape ? ?Sedation Level no sedation ?Patient Position:sitting ?Prep: Betadine and patient draped ? ?Monitoring: heart rate, continuous pulse ox, heart rate / toco and NIBP ?Location: lumbar (1-5) ?Lumbar: L3-L4 ?Approach: midline ? ?Technique: catheter and PARTH saline ?Guidance with: landmark technique}Epidural/Spinal [place] and/or Catheter: ?Epidural/Spinal Kit: BBraun ?Needle Type: Tuohy ?Needle Gauge: 17 G ?Needle Length: 3.5 in (8.89 cm) ?Needle Insertion Depth: 8 ?Catheter Type: multiport ? ?Catheter Size: 19 G ? ?Catheter at Skin Depth: 13 ?Number of Attempts: 1 ?Test Dose: lidocaine 1.5% with epinephrine 1-to-200,000 and negative ??Dose: 3 cc ? ?Catheter Securement Method: surgical tape, Tegaderm, clear occlusive dressing and liquid medical adhesiveAssessment: ?Sensory Level: below T10 ?Block Outcome: a full evaluation is pending ? ?Procedure Assessment: patient tolerated procedure well with no complicationsNotes: ? Patient i dentified; pre-procedure verification.Patient prepped and draped in standard sterile fashion using betadine x 3Subcutaneous infiltration with 1% Lidocaine PARTH at 8 cm; catheter secured at 13 cm with mastisol, tegaderm x2 and 3-inch clear tape.Aspiration test negative x 3Test dose negativePatient tolerated procedure well with no immediate complications Epidural expectations; PCEA explained and fall precautions given.[facility] 1/2 AG-AB WITH [id number] 03:20:38* Test Item Value Reference Range Interpretation Comme nts HIV Semi-quantitative (test code = 25840-1) 0.08 Negative MILLIE (test code = MILLIE) Non-reactive for HIV-1 antigen and HIV-1/HIV-2 antibodies. ?No laboratory evidence of HIV infection. ?Repeat in 2-4 weeks if acute HIV infection is suspected. [facility] 1/2 AG-AB WITH [id number] 03:20:38* Test Item Value Reference Range Interpretation Comme nts HIV Semi-quantitative (test code = 26689-1) 0.08 Negative MILLIE (test code = MILLIE) Non-reactive for HIV-1 antigen and HIV-1/HIV-2 antibodies. ?No laboratory evidence of HIV infection. ?Repeat in 2-4 weeks if acute HIV infection is suspected. [facility] B Surface [id number] 01:07:17 * Test Item Value Reference Range Interpretation Comme nts HBsAg Semi-Quantitative (akbar t code = 5195-3) 0.06 Negative [facility] B Surface Lamvgpt7677-20-17 01:07:17 * Test Item Value Reference Range Interpretation Comme nts HBsAg Semi-Quantitative (akbar t code = 5195-3) 0.06 Negative [facility] with Uaadffwaamwx2985-27-08 23:48:07* Test Item Value Reference Range Interpretation Comme nts WBC (test code = 6690-2) 12.30 4.30-11.10 H RBC (test code = 789-8) 3.48 3.93-5.25 L HGB (test code = 718-7) 9.9 g/dL 11.6-15.0 L HCT (test code = 4544-3) 30.6 % 35.7-45.2 L MCV (test code = 787-2) 87.9 fL 80.6-95.5 MCH (test code = 785-6) 28.4 pg 25.9-32.8 MCHC (test code = 786-4) 32.4 g/dL 31.6-35.1 RDW-SD (test code = 24796-2) 41.1 fL 39.0-49.9 RDW-CV (test code = 788-0) 13.0 % 12.0-15.5 PLT (test code = 777-3) 352 166-358 MPV (test code = 98667-8) 11.0 fL 9.5-12.9 NRBC/100 WBC (test code = 0922881130) 0.0 0.0-10.0 NRBC x10^3 (test code = 3276953967) See_Comment [Automated messa ge] The system which generated this result transmitted reference range: 10*3/?L. The reference range was not used to interpret this result as normal/abnormal. GRAN MAT (NEUT) % (test code = 770-8) 70.8 % IMM GRAN % (test code = 1627193160) 0.40 % LYMPH % (test code = 736-9) 19.9 % MONO % (test code = 5905-5) 8.2 % EOS % (test code = 713-8) 0.5 % BASO % (test code = 706-2) 0.2 % GRAN MAT x10^3(ANC) (test code = 0143698179) 8.71 10*3/uL 1.88-7.09 H IMM GRAN x10^3 (test code = 5710595812) 0.05 10*3/uL 0.00-0.06 LYMPH x10^3 (test code = 731-0) 2.45 10*3/uL 1.32-3.29 MONO x10^3 (test code = 742-7) 1.01 10*3/uL 0.33-0.92 H EOS x10^3 (test code = 711-2) 0.06 10*3/uL 0.03-0.39 BASO x10^3 (test code = 704-7) 0.01-0.07 Lab Interpretation (test code = 52636-0) Abnormal [facility] with Rhedzauaozds4676-43-43 23:48:07* Test Item Value Reference Range Interpretation Comme nts WBC (test code = 6690-2) 12.30 4.30-11.10 H RBC (test code = 789-8) 3.48 3.93-5.25 L HGB (test code = 718-7) 9.9 g/dL 11.6-15.0 L HCT (test code = 4544-3) 30.6 % 35.7-45.2 L MCV (test code = 787-2) 87.9 fL 80.6-95.5 MCH (test code = 785-6) 28.4 pg 25.9-32.8 MCHC (test code = 786-4) 32.4 g/dL 31.6-35.1 RDW-SD (test code = 97474-5) 41.1 fL 39.0-49.9 RDW-CV (test code = 788-0) 13.0 % 12.0-15.5 PLT (test code = 777-3) 352 166-358 MPV (test code = 83563-6) 11.0 fL 9.5-12.9 NRBC/100 WBC (test code = 0524618502) 0.0 0.0-10.0 NRBC x10^3 (test code = 0627846186) See_Comment [Automated messa ge] The system which generated this result transmitted reference range: 10*3/?L. The reference range was not used to interpret this result as normal/abnormal. GRAN MAT (NEUT) % (test code = 770-8) 70.8 % IMM GRAN % (test code = 4575156331) 0.40 % LYMPH % (test code = 736-9) 19.9 % MONO % (test code = 5905-5) 8.2 % EOS % (test code = 713-8) 0.5 % BASO % (test code = 706-2) 0.2 % GRAN MAT x10^3(ANC) (test code = 5396390386) 8.71 10*3/uL 1.88-7.09 H IMM GRAN x10^3 (test code = 8492378677) 0.05 10*3/uL 0.00-0.06 LYMPH x10^3 (test code = 731-0) 2.45 10*3/uL 1.32-3.29 MONO x10^3 (test code = 742-7) 1.01 10*3/uL 0.33-0.92 H EOS x10^3 (test code = 711-2) 0.06 10*3/uL 0.03-0.39 BASO x10^3 (test code = 704-7) 0.01-0.07 Lab Interpretation (test code = 42164-7) [facility]CE [id number] 23:36:00 * Test Item Value Reference Range Interpretation Comme nts ABO & RH (test code = 20) A POSITIVE IAT (test code = 1185) Negative [facility] - ONCE [id number] 23:36:00 * Test Item Value Reference Range Interpretation Comme nts ABO & RH (test code = 20) A POSITIVE IAT (test code = 1185) Negative [facility] W SPECIFIC [id number] 16:47:00* Test Item Value Reference Range Interpretation Comme nts POCT U SP GRAV (test code = 3255) . 1.005-1.025 POCT PH U (test code = 3254) 6 mg/dl 5-8 POCT U LEUK EST (test code = 3263) ++ Negative - Negative POCT U NIT (test code = 3262) neg Negative - Negati ve POCT U PROT (test code = 3259) trace Negative - Negat john POCT U GLU (test code = 3256) neg Negative - Negati ve POCT U KETONE (test code = 3258) small Negative - Neg ative POCT U UROBILI (test code = 3260) . 0.2-1 POCT U BILI (test code = 3261) . Negative - Negat john POCT U BLD (test code = 3257) neg Negative - Negati ve POCT U COLOR (test code = 3266) POCT U APPEAR (test code = 3267) [facility] CenterLactate Ulechtdjlblut4153-52-25 23:39:27* Test Item Value Reference Range Interpretation Comme nts LDH (test code = 8068365657) 136 U/L 120-246 Lab Interpretation (test cod e = 65571-1) Normal [facility] Center[facility] Acid Ixibu5242-54-69 23:38:06* Test Item Value Reference Range Interpretation Comme nts URIC ACID (test code = 6495974637) 4.4 mg/dL 2.9-6.0 Lab Interpretation (test cod e = 20984-4) [facility] Tvuypydibf6528-27-80 23:38:06* Test Item Value Reference Range Interpretation Comme nts CREATININE (test code = 4428682850) 0.35 mg/dL 0.50-1.04 L eGFR (test code = 80253-4) 146.6 mL/min/1.73m2 CKD-EPI eGFR (2020). Assuming creatinine has been stable day-to-day for at least three months, the eGFR indicates Category G1 (>= 90 mL/min/1.73 m2) Lab Interpretation (test code = 82113-3) Abnormal [facility] Center[facility] (Asparate Amino Transfer)2023-09-10 23:38:06* Test Item Value Reference Range Interpretation Comme nts AST(SGOT) (test code = 3224033527) 17 U/L 13-40 Lab Interpretation (test cod e = 49204-4) Normal [facility] CenterAlanine Amino Transferase (SGPT)2023-09-10 23:38:05* Test Item Value Reference Range Interpretation Comme nts ALTv (test code = 1742-6) 14 U/L 5-35 Lab Interpretation (test cod e = 32927-1) Normal [facility] CenterCBC with Kplbjmigeksc3708-46-94 23:30:05* Test Item Value Reference Range Interpretation Comme nts WBC (test code = 6690-2) 12.95 4.30-11.10 H RBC (test code = 789-8) 3.51 3.93-5.25 L HGB (test code = 718-7) 9.8 g/dL 11.6-15.0 L HCT (test code = 4544-3) 30.6 % 35.7-45.2 L MCV (test code = 787-2) 87.2 fL 80.6-95.5 MCH (test code = 785-6) 27.9 pg 25.9-32.8 MCHC (test code = 786-4) 32.0 g/dL 31.6-35.1 RDW-SD (test code = 11572-7) 40.6 fL 39.0-49.9 RDW-CV (test code = 788-0) 12.8 % 12.0-15.5 PLT (test code = 777-3) 339 166-358 MPV (test code = 48950-0) 10.9 fL 9.5-12.9 NRBC/100 WBC (test code = 9190033606) 0.0 0.0-10.0 NRBC x10^3 (test code = 3444586790) See_Comment [Automated messa ge] The system which generated this result transmitted reference range: 10*3/?L. The reference range was not used to interpret this result as normal/abnormal. GRAN MAT (NEUT) % (test code = 770-8) 73.2 % IMM GRAN % (test code = 6770737626) 0.50 % LYMPH % (test code = 736-9) 17.6 % MONO % (test code = 5905-5) 8.0 % EOS % (test code = 713-8) 0.5 % BASO % (test code = 706-2) 0.2 % GRAN MAT x10^3(ANC) (test code = 9390345077) 9.48 10*3/uL 1.88-7.09 H IMM GRAN x10^3 (test code = 4527572782) 0.06 10*3/uL 0.00-0.06 LYMPH x10^3 (test code = 731-0) 2.28 10*3/uL 1.32-3.29 MONO x10^3 (test code = 742-7) 1.04 10*3/uL 0.33-0.92 H EOS x10^3 (test code = 711-2) 0.07 10*3/uL 0.03-0.39 BASO x10^3 (test code = 704-7) 0.01-0.07 Lab Interpretation (test code = 71991-3) Abnormal [facility] URINALYSIS W SPECIFIC [id number] 17:39:00* Test Item Value Reference Range Interpretation Comme nts POCT U SP GRAV (test code = 3255) . 1.005-1.025 POCT PH U (test code = 3254) . 5-8 POCT U LEUK EST (test code = 3263) . Negative - N egative POCT U NIT (test code = 3262) . Negative - Negati ve POCT U PROT (test code = 3259) trace Negative - Negat john POCT U GLU (test code = 3256) neg Negative - Negati ve POCT U KETONE (test code = 3258) . Negative - Neg ative POCT U UROBILI (test code = 3260) . 0.2-1 POCT U BILI (test code = 3261) . Negative - Negat john POCT U BLD (test code = 3257) . Negative - Negati ve POCT U COLOR (test code = 3266) . POCT U APPEAR (test code = 3267) . [facility] URINALYSIS W SPECIFIC [id number] 17:39:00* Test Item Value Reference Range Interpretation Comme nts POCT U SP GRAV (test code = 3255) . 1.005-1.025 POCT PH U (test code = 3254) . 5-8 POCT U LEUK EST (test code = 3263) . Negative - N egative POCT U NIT (test code = 3262) . Negative - Negati ve POCT U PROT (test code = 3259) trace Negative - Negat john POCT U GLU (test code = 3256) neg Negative - Negati ve POCT U KETONE (test code = 3258) . Negative - Neg ative POCT U UROBILI (test code = 3260) . 0.2-1 POCT U BILI (test code = 3261) . Negative - Negat john POCT U BLD (test code = 3257) . Negative - Negati ve POCT U COLOR (test code = 3266) . POCT U APPEAR (test code = 3267) . [facility] URINALYSIS W SPECIFIC [id number] 21:56:00* Test Item Value Reference Range Interpretation Comme nts POCT U SP GRAV (test code = 3255) . 1.005-1.025 POCT PH U (test code = 3254) . 5-8 POCT U LEUK EST (test code = 3263) . Negative - N egative POCT U NIT (test code = 3262) . Negative - Negati ve POCT U PROT (test code = 3259) trace Negative - Negat john POCT U GLU (test code = 3256) neg Negative - Negati ve POCT U KETONE (test code = 3258) . Negative - Neg ative POCT U UROBILI (test code = 3260) . 0.2-1 POCT U BILI (test code = 3261) . Negative - Negat john POCT U BLD (test code = 3257) . Negative - Negati ve POCT U COLOR (test code = 3266) . POCT U APPEAR (test code = 3267) . [facility] URINALYSIS W SPECIFIC [id number] 20:28:00* Test Item Value Reference Range Interpretation Comme nts POCT U SP GRAV (test code = 3255) . 1.005-1.025 POCT PH U (test code = 3254) . 5-8 POCT U LEUK EST (test code = 3263) . Negative - N egative POCT U NIT (test code = 3262) . Negative - Negati ve POCT U PROT (test code = 3259) trace Negative - Negat john POCT U GLU (test code = 3256) neg Negative - Negati ve POCT U KETONE (test code = 3258) . Negative - Neg ative POCT U UROBILI (test code = 3260) . 0.2-1 POCT U BILI (test code = 3261) . Negative - Negat john POCT U BLD (test code = 3257) . Negative - Negati ve POCT U COLOR (test code = 3266) POCT U APPEAR (test code = 3267) [facility] URINALYSIS W SPECIFIC [id number] 20:28:00* Test Item Value Reference Range Interpretation Comme nts POCT U SP GRAV (test code = 3255) . 1.005-1.025 POCT PH U (test code = 3254) . 5-8 POCT U LEUK EST (test code = 3263) . Negative - N egative POCT U NIT (test code = 3262) . Negative - Negati ve POCT U PROT (test code = 3259) trace Negative - Negat john POCT U GLU (test code = 3256) neg Negative - Negati ve POCT U KETONE (test code = 3258) . Negative - Neg ative POCT U UROBILI (test code = 3260) . 0.2-1 POCT U BILI (test code = 3261) . Negative - Negat john POCT U BLD (test code = 3257) . Negative - Negati ve POCT U COLOR (test code = 3266) POCT U APPEAR (test code = 3267) [facility] URINALYSIS W SPECIFIC [id number] 20:28:00* Test Item Value Reference Range Interpretation Comme nts POCT U SP GRAV (test code = 3255) . 1.005-1.025 POCT PH U (test code = 3254) . 5-8 POCT U LEUK EST (test code = 3263) . Negative - N egative POCT U NIT (test code = 3262) . Negative - Negati ve POCT U PROT (test code = 3259) trace Negative - Negat john POCT U GLU (test code = 3256) neg Negative - Negati ve POCT U KETONE (test code = 3258) . Negative - Neg ative POCT U UROBILI (test code = 3260) . 0.2-1 POCT U BILI (test code = 3261) . Negative - Negat john POCT U BLD (test code = 3257) . Negative - Negati ve POCT U COLOR (test code = 3266) POCT U APPEAR (test code = 3267) [facility] URINALYSIS W SPECIFIC [id number] 20:07:00* Test Item Value Reference Range Interpretation Comme nts POCT U SP GRAV (test code = 3255) . 1.005-1.025 POCT PH U (test code = 3254) 7 mg/dl 5-8 POCT U LEUK EST (test code = 3263) trace Negative - Negative POCT U NIT (test code = 3262) neg Negative - Negati ve POCT U PROT (test code = 3259) trace Negative - Negat john POCT U GLU (test code = 3256) neg Negative - Negati ve POCT U KETONE (test code = 3258) neg Negative - Neg ative POCT U UROBILI (test code = 3260) . 0.2-1 POCT U BILI (test code = 3261) . Negative - Negat john POCT U BLD (test code = 3257) neg Negative - Negati ve POCT U COLOR (test code = 3266) . POCT U APPEAR (test code = 3267) . [facility] URINALYSIS W SPECIFIC [id number] 16:25:00* Test Item Value Reference Range Interpretation Comme nts POCT U SP GRAV (test code = 3255) . 1.005-1.025 POCT PH U (test code = 3254) . 5-8 POCT U LEUK EST (test code = 3263) . Negative - N egative POCT U NIT (test code = 3262) . Negative - Negati ve POCT U PROT (test code = 3259) trace Negative - Negat john POCT U GLU (test code = 3256) neg Negative - Negati ve POCT U KETONE (test code = 3258) . Negative - Neg ative POCT U UROBILI (test code = 3260) . 0.2-1 POCT U BILI (test code = 3261) . Negative - Negat john POCT U BLD (test code = 3257) . Negative - Negati ve POCT U COLOR (test code = 3266) . POCT U APPEAR (test code = 3267) . [facility] URINALYSIS W SPECIFIC [id number] 21:57:00* Test Item Value Reference Range Interpretation Comme nts POCT U SP GRAV (test code = 3255) . 1.005-1.025 POCT PH U (test code = 3254) . 5-8 POCT U LEUK EST (test code = 3263) . Negative - N egative POCT U NIT (test code = 3262) . Negative - Negati ve POCT U PROT (test code = 3259) Trace Negative - Negat john POCT U GLU (test code = 3256) Nml Negative - Negati ve POCT U KETONE (test code = 3258) . Negative - Neg ative POCT U UROBILI (test code = 3260) . 0.2-1 POCT U BILI (test code = 3261) . Negative - Negat john POCT U BLD (test code = 3257) . Negative - Negati ve POCT U COLOR (test code = 3266) POCT U APPEAR (test code = 3267) .. [facility] URINALYSIS W SPECIFIC [id number] 21:57:00* Test Item Value Reference Range Interpretation Comme nts POCT U SP GRAV (test code = 3255) . 1.005-1.025 POCT PH U (test code = 3254) . 5-8 POCT U LEUK EST (test code = 3263) . Negative - N egative POCT U NIT (test code = 3262) . Negative - Negati ve POCT U PROT (test code = 3259) Trace Negative - Negat john POCT U GLU (test code = 3256) Nml Negative - Negati ve POCT U KETONE (test code = 3258) . Negative - Neg ative POCT U UROBILI (test code = 3260) . 0.2-1 POCT U BILI (test code = 3261) . Negative - Negat john POCT U BLD (test code = 3257) . Negative - Negati ve POCT U COLOR (test code = 3266) POCT U APPEAR (test code = 3267) .. [facility] URINALYSIS W SPECIFIC [id number] 22:40:00* Test Item Value Reference Range Interpretation Comme nts POCT U SP GRAV (test code = 3255) . 1.005-1.025 POCT PH U (test code = 3254) . 5-8 POCT U LEUK EST (test code = 3263) . Negative - N egative POCT U NIT (test code = 3262) . Negative - Negati ve POCT U PROT (test code = 3259) TRACE Negative - Negat john POCT U GLU (test code = 3256) NEG Negative - Negati ve POCT U KETONE (test code = 3258) . Negative - Neg ative POCT U UROBILI (test code = 3260) . 0.2-1 POCT U BILI (test code = 3261) . Negative - Negat john POCT U BLD (test code = 3257) . Negative - Negati ve POCT U COLOR (test code = 3266) . POCT U APPEAR (test code = 3267) . [facility] URINALYSIS W SPECIFIC [id number] 22:39:00* Test Item Value Reference Range Interpretation Comme nts POCT U SP GRAV (test code = 3255) . 1.005-1.025 POCT PH U (test code = 3254) . 5-8 POCT U LEUK EST (test code = 3263) . Negative - N egative POCT U NIT (test code = 3262) . Negative - Negati ve POCT U PROT (test code = 3259) . Negative - Negat john POCT U GLU (test code = 3256) . Negative - Negati ve POCT U KETONE (test code = 3258) . Negative - Neg ative POCT U UROBILI (test code = 3260) . 0.2-1 POCT U BILI (test code = 3261) . Negative - Negat john POCT U BLD (test code = 3257) . Negative - Negati ve POCT U COLOR (test code = 3266) .. POCT U APPEAR (test code = 3267) . [facility] URINALYSIS W SPECIFIC [id number] 20:30:00* Test Item Value Reference Range Interpretation Comme nts POCT U SP GRAV (test code = 3255) . 1.005-1.025 POCT PH U (test code = 3254) 6 mg/dl 5-8 POCT U LEUK EST (test code = 3263) Trace Negative - Negative POCT U NIT (test code = 3262) Neg Negative - Negati ve POCT U PROT (test code = 3259) Trace Negative - Negat john POCT U GLU (test code = 3256) Nml Negative - Negati ve POCT U KETONE (test code = 3258) None Negative - Neg ative POCT U UROBILI (test code = 3260) . 0.2-1 POCT U BILI (test code = 3261) . Negative - Negat john POCT U BLD (test code = 3257) Trace Negative - Negati ve POCT U COLOR (test code = 3266) . POCT U APPEAR (test code = 3267) [facility] URINALYSIS W SPECIFIC [id number] 19:47:00* Test Item Value Reference Range Interpretation Comme nts POCT U SP GRAV (test code = 3255) . 1.005-1.025 POCT PH U (test code = 3254) 7 mg/dl 5-8 POCT U LEUK EST (test code = 3263) Trace Negative - Negative POCT U NIT (test code = 3262) Neg Negative - Negati ve POCT U PROT (test code = 3259) Trace Negative - Negat john POCT U GLU (test code = 3256) Nml Negative - Negati ve POCT U KETONE (test code = 3258) None Negative - Neg ative POCT U UROBILI (test code = 3260) . 0.2-1 POCT U BILI (test code = 3261) . Negative - Negat john POCT U BLD (test code = 3257) Trace Negative - Negati ve POCT U COLOR (test code = 3266) . POCT U APPEAR (test code = 3267) [facility] URINALYSIS W SPECIFIC [id number] 19:08:00* Test Item Value Reference Range Interpretation Comme nts POCT U SP GRAV (test code = 3255) . 1.005-1.025 POCT PH U (test code = 3254) 7 mg/dl 5-8 POCT U LEUK EST (test code = 3263) Trace Negative - Negative POCT U NIT (test code = 3262) Neg Negative - Negati ve POCT U PROT (test code = 3259) Trace Negative - Negat john POCT U GLU (test code = 3256) Neg Negative - Negati ve POCT U KETONE (test code = 3258) None Negative - Neg ative POCT U UROBILI (test code = 3260) . 0.2-1 POCT U BILI (test code = 3261) . Negative - Negat john POCT U BLD (test code = 3257) Trace Negative - Negati ve POCT U COLOR (test code = 3266) POCT U APPEAR (test code = 3267) [facility] URINALYSIS W SPECIFIC [id number] 19:38:00* Test Item Value Reference Range Interpretation Comme nts POCT U SP GRAV (test code = 3255) . 1.005-1.025 POCT PH U (test code = 3254) 6 mg/dl 5-8 POCT U LEUK EST (test code = 3263) 2+ Negative - Negative POCT U NIT (test code = 3262) negative Negative - Negati ve POCT U PROT (test code = 3259) trace Negative - Negat john POCT U GLU (test code = 3256) negative Negative - Negati ve POCT U KETONE (test code = 3258) negative Negative - Neg ative POCT U UROBILI (test code = 3260) . 0.2-1 POCT U BILI (test code = 3261) . Negative - Negat john POCT U BLD (test code = 3257) trace Negative - Negati ve POCT U COLOR (test code = 3266) . POCT U APPEAR (test code = 3267) . [facility] URINALYSIS W SPECIFIC [id number] 19:38:00* Test Item Value Reference Range Interpretation Comme nts POCT U SP GRAV (test code = 3255) . 1.005-1.025 POCT PH U (test code = 3254) . 5-8 POCT U LEUK EST (test code = 3263) . Negative - N egative POCT U NIT (test code = 3262) . Negative - Negati ve POCT U PROT (test code = 3259) . Negative - Negat john POCT U GLU (test code = 3256) . Negative - Negati ve POCT U KETONE (test code = 3258) . Negative - Neg ative POCT U UROBILI (test code = 3260) . 0.2-1 POCT U BILI (test code = 3261) . Negative - Negat john POCT U BLD (test code = 3257) . Negative - Negati ve POCT U COLOR (test code = 3266) . POCT U APPEAR (test code = 3267) . [facility] URINALYSIS W SPECIFIC [id number] 19:22:00* Test Item Value Reference Range Interpretation Comme nts POCT U SP GRAV (test code = 3255) . 1.005-1.025 POCT PH U (test code = 3254) 6 mg/dl 5-8 POCT U LEUK EST (test code = 3263) Trace Negative - Negative POCT U NIT (test code = 3262) Neg Negative - Negati ve POCT U PROT (test code = 3259) Trace Negative - Negat john POCT U GLU (test code = 3256) Neg Negative - Negati ve POCT U KETONE (test code = 3258) None Negative - Neg ative POCT U UROBILI (test code = 3260) . 0.2-1 POCT U BILI (test code = 3261) . Negative - Negat john POCT U BLD (test code = 3257) Trace Negative - Negati ve POCT U COLOR (test code = 3266) . POCT U APPEAR (test code = 3267) [facility] [id number] 00:21:00* Test Item Value Reference Range Interpretation Comme nts POCT PREG (test code = 1605) Positive On board controls acceptable with C Line (test code = 3574) Yes POCT PREG LOT # (test code = 3573) [id number] POCT PREG TEST DATE ( test code = 3576) 07-21-2024 Lab Interpretation (test cod e = 70390-5) Normal [facility] URINALYSIS W/O SPECIFIC [id number] 13:31:00* Test Item Value Reference Range Interpretation Comme nts POCT PH U (test code = 3254) 5 mg/dl 5-8 POCT U LEUK EST (test code = 3263) 1+ Negative - Negative POCT U NIT (test code = 3262) negative Negative - Negati ve POCT U PROT (test code = 3259) trace Negative - Negat john POCT U GLU (test code = 3256) negative Negative - Negati ve POCT U KETONE (test code = 3258) negative Negative - Neg ative POCT U BLD (test code = 3257) trace Negative - Negati ve [facility] URINALYSIS W/O SPECIFIC [id number] 13:31:00* Test Item Value Reference Range Interpretation Comme nts POCT PH U (test code = 3254) 5 mg/dl 5-8 POCT U LEUK EST (test code = 3263) 1+ Negative - Negative POCT U NIT (test code = 3262) negative Negative - Negati ve POCT U PROT (test code = 3259) trace Negative - Negat john POCT U GLU (test code = 3256) negative Negative - Negati ve POCT U KETONE (test code = 3258) negative Negative - Neg ative POCT U BLD (test code = 3257) trace Negative - Negati ve [facility] [id number] 13:30:00* Test Item Value Reference Range Interpretation Comme nts POCT PREG (test code = 1605) Positive On board controls acceptable with C Line (test code = 3574) Yes POCT PREG LOT # (test code = 3575) POCT PREG TEST DATE ( test code = 3576) [facility] [id number] 13:30:00* Test Item Value Reference Range Interpretation Comme nts POCT PREG (test code = 1605) Positive On board controls acceptable with C Line (test code = 3574) Yes POCT PREG LOT # (test code = 3575) POCT PREG TEST DATE ( test code = 3576) [facility] MOLECULAR [id number] 14:14:48* Test Item Value Reference Range Interpretation Comme nts POCT Molecular Strep (test c ode = 51456-2) Positive Negative A Lab Interpretation (test cod e = 11817-8) Abnormal [facility] [id number] 19:17:00* Test Item Value Reference Range Interpretation Comme nts POCT PREG (test code = 1605) Negative On board controls acceptable with C Line (test code = 3574) Yes POCT PREG LOT # (test code = 3575) POCT PREG TEST DATE ( test code = 3576) Lab Interpretation (test cod e = 66336-0) Normal [facility] History and Physical Notes Date/Time Note Provider Source 2023-09-15 14:29:59 TRIAGE HISTORY & PHYSICAL IDENTIFYING DATA Urvashi Molina is 23 year old, Black or , 37w0d, female with TARAN 10/06/2023, by Last Menstrual Period. : 1999 Primary Care Physician: Daya Clayton CHIEF COMPLAINT Headache, DFM HISTORY OF PRESENT ILLNESS 23 year old @ 37w0d d/u (8) presents from clinic for evaluation due to headache. PT reports took excedrin and tylenol today without relief. Pt also endorses nause, blurred vision and occasional lightheadedness. Denies vomiting, RUQ pain. Reports constant back pain and intermittent pelvic cramping. Denies lof, vb. Reports less movt than normal today. PAST OBSTETRIC HISTORY OB History Para Term AB Living 4 2 2 1 2 SAB IAB Ectopic Multiple Live Births 1 0 2 # Outcome Date GA Lbr Curry/2nd Weight Sex Delivery Anes PTL Lv 4 Current 3 SAB 11/08/21 6w3d 2 Term 01/10/21 38w2d 3175 g F NORMAL SPONT LON 1 Term 01/21/20 37w2d 2730 g F NORMAL SPONT EPI N LON Complications: Gestational hypertension PAST MEDICAL HISTORY Problem list: Patient Active Problem List Diagnosis Date Noted 37 weeks gestation of 09/15/2023 Decreased movement affecting management of in third trimester, not applicable or unspecified fetus 09/15/2023 Headache in , antepartum, third trimester 09/15/2023 36 weeks gestation of 09/10/2023 Supervision of high-risk 08/11/2023 Multiparity 08/11/2023 Urinary tract infection in mother during second trimester of 06/02/2023 GBS (group B streptococcus) UTI complicating 03/15/2023 History of miscarriage, currently 02/11/2023 Maternal varicella, non-immune 05/29/2020 History of pre-eclampsia in prior , currently 05/28/2020 Declined flu vaccine 05/28/2020 Anxiety during 05/28/2020 Anemia of mother in , antepartum 11/08/2019 Obesity during 06/05/2019 Operations: Past Surgical History: Procedure Laterality Date CHOLECYSTECTOMY 02/07/2020 Past Medical History: Diagnosis Date Anemia of mother in , antepartum 11/08/2019 not on iron meds Anxiety 05/28/2020 ongoing, taking Zoloft Hypertension only once during her 1st , resolved now Preeclampsia 2019 induced at 37 wk Tachycardia 10/2018 Pt hospitalized for 1 week at [facility] Vision problems wears glasses CURRENT HEALTH STATUS Medications: Current Facility-Administered Medications Medication Dose Route Frequency Last Rate Last Admin ceFAZolin (ANCEF) 1,000 mg in NaCl 0.9% (NS) 100 mL MINI-BAG 1,000 mg IV Piggyback ONCE Followed by [START ON 09/16/2023] ceFAZolin (ANCEF) 1,000 mg in NaCl 0.9% (NS) 100 mL MINI-BAG 1,000 mg IV Piggyback Q8H ABX D5W-LR IV infusion 1,000 mL 1,000 mL IV Infusion TITRATE lactated ringers IV infusion 500 mL 500 mL IV Infusion PRN - SEE INSTRUCTIONS lidocaine 1% (PF) (XYLOCAINE) injection 0.3 mL 0.3 mL Infiltration PRN - SEE INSTRUCTIONS lidocaine 1% (XYLOCAINE) 10 mg/mL (1 %) injection 50 mL 50 mL Infiltration PRN - SEE INSTRUCTIONS oxytocin (PITOCIN) 30 units in NS 500 mL IV infusion 2-40 katiana-units/min IV Infusion TITRATE sodium citrate-citric acid (BICITRA) 500-334 mg/5 mL solution 30 mL 30 mL Oral PRE-PROCEDURE ONCE Allergies and drug reactions: Amoxicillin HOME MEDICATIONS Medications Prior to Admission Medication Sig Dispense Refill Last Dose ascorbic acid, vitamin C, 500 mg tablet Take 1 tablet by mouth in the morning and 1 tablet at noon and 1 tablet in the evening. 90 tablet 2 ferrous sulfate 325 mg (65 mg iron) tablet Take 1 tablet by mouth in the morning and 1 tablet in the evening. 60 tablet 3 Iron Fum & P-FA-Vit B & C No.9 (INTEGRA PLUS) 125 mg iron- 1 mg Cap Take 1 capsule by mouth in the morning. 30 capsule 6 SERTraline 100 mg tablet Take 1 tablet by mouth in the morning. 30 tablet 6 aspirin 81 mg EC tablet Take 1 tablet by mouth in the morning. 30 tablet 6 proMETHazine 25 mg tablet Take 1 tablet by mouth every 4 (four) hours as needed for Nausea and Vomiting (N/V). 30 tablet 2 SOCIAL HISTORY Tobacco History: Social History Tobacco Use Smoking Status Never Smokeless Tobacco Never Drug History: Social History Substance and Sexual Activity Drug Use No Alcohol History: Social History Substance and Sexual Activity Alcohol Use No Alcohol/week: 0.0 standard drinks of alcohol FAMILY HISTORY Family History Problem Relation Age of Onset Heart Father Depression Sister Asthma Brother No Significant Medical Problems Mother Lymphoma Maternal Grandmother Arthritis NoFHx defects NoFHx Breast Cancer NoFHx Colon Cancer NoFHx Ovarian Cancer NoFHx Cancer NoFHx Uterine Cancer NoFHx Diabetes NoFHx Genetic NoFHx High cholesterol NoFHx Hypertension NoFHx Mental retardation NoFHx Neurological NoFHx Osteoporosis NoFHx Other - see comments NoFHx Psychiatry NoFHx REVIEW OF SYSTEMS General: headache Constitutional: negative Eyes: negative ENT/Mouth: negative Cardiovascular: negative Respiratory: negative Gastrointestinal:negative Genitourinary: pelvic pain Musculoskeletal: negative Skin/breast: negative Neurological: negative Psychiatric: negative Endocrine: negative Hemat/Lymph: negative Allergic/Immuno:none VITAL SIGNS BP: (106-143)/(74-87) Temp: [36.5 ?C (97.7 ?F)-36.7 ?C (98 ?F)] Temp source: Axillary (09/15 1442) Pulse: [73-95] Resp: [18-19] SpO2: [99 %-100 %] Height: [167.6 cm (5' 6")] Weight: [108 kg (238 lb)-109.4 kg (241 lb 1.6 oz)] BMI (calculated): [0-38.41] PHYSICAL EXAMINATIONS General: patient alert and in no acute distress HEENT: symmetric, negative for masses Lungs: unlabored breathing Cardiology: peripheral pulses intact and regular Abdomen: soft, non-tender, non-distended, no liver, spleen or abnormal masses palpated and Gravid Extremities: no clubbing, cyanosis, or edema Neuro: patient moving all extremities, no facial droop : deferred REVIEW OF LABORATORY, PATHOLOGY, AND RADIOLOGY DATA Lab results: Type & Screen HIV Hep B Syphilis Chlamydia ABO & RH Date Value Ref Range Status 02/11/2023 A POSITIVE Final No results found for: "HIVMULTIPLEX" No components found for: "HBSHBSAG" Syphilis IgG/IgM Date Value Ref Range Status 07/29/2023 Non-reactive Non-reactive Final C. trachomatis Nucleic Acid Date Value Ref Range Status 09/09/2023 Negative Negative Final IAT Date Value Ref Range Status 02/11/2023 Negative Final Varicella Rubella Glucose Group B Strep CBC VZV IgG antibody Date Value Ref Range Status 02/11/2023 Negative Negative Final Rubella screen IgG Date Value Ref Range Status 02/11/2023 Positive Negative Final GLUC 1 HR Date Value Ref Range Status 07/12/2023 104 (L) 120 - 170 mg/dL Final No results found for: "CGBS" HGB Date Value Ref Range Status 09/15/2023 9.6 (L) 11.6 - 15.0 g/dL Final HCT Date Value Ref Range Status 09/15/2023 29.7 (L) 35.7 - 45.2 % Final PLT Date Value Ref Range Status 09/15/2023 316 166 - 358 10*3/?L Final Active Hospital Problems Diagnosis Date Noted 37 weeks gestation of 09/15/2023 Decreased movement affecting management of in third trimester, not applicable or unspecified fetus 09/15/2023 Headache in , antepartum, third trimester 09/15/2023 GBS (group B streptococcus) UTI complicating 03/15/2023 Maternal varicella, non-immune 05/29/2020 Address pp Obesity during 06/05/2019 Resolved Hospital Problems No resolved problems to display. Present on Admission: 37 weeks gestation of GBS (group B streptococcus) UTI complicating Maternal varicella, non-immune Obesity during Decreased movement affecting management of in third trimester, not applicable or unspecified fetus Headache in , antepartum, third trimester ASSESSMENT AND PLAN Urvashi Molina is a 23 year old at 37w0d by d/u (8) who presents with headache, DFM. DFM - c/o less movt than normal - states baby was active yesterday - BPP 03/16 - DVP 4.5cm - Plan: monitoring Headache - Reports constant frontal headache for several months, associated with nausea and blurry vision - seen in triage on 09/10, had negative PreE labs and headache improved with reglan/benadryl. Had 3 mild range BPs when pt lying on cuff, after adjustment all normal BPs - Tried taking tylenol multiple times without relief - Denies hx of migraines - States had similar symptoms with her last two pregnancies and was diagnosed with PreE, however on chart review she has a history of GHTN with her G1 . - Wears glasses, reports last eye exam was over a year ago - BP 109/84 - Plan: compazine, serial bp's, preE labs, TSH, po hydrate GBS positive - on urine cultre 03/2023 - PCN intrapartum Depression - on zoloft 150mg - Mood stable Antepartum course reviewed - 1 h 104, sero negative, Rimmune, VZVnot immune, HPV 2/2 doses, A positive/IAT negative, GBS positive, Pap NILM on 02/2023 - H/H, plt: 10.1 / 31.7, 338 on 09/09 - plan: undecided - [place] [facility] Fetus - Presentation on admission: cephalic, DVP 4.5cm cm - anterior placenta - EFW: 2440g by R4BSUS, 13 %ile on 09/10/23 - FHT reactive and reassuring - Normal anatomy scan Placenta Accreta Screening Prior ? : No Prior Uterine Surgery?: No Placenta low lying/previa in current ? : No Screening outcome: Negative screening. PLAN: mild range BP noted, PreE labs neg, P/C 0.1. Will admit for IOL due to GHTN at 37w0d D/w Dr Britt Orourke APRN, [facility]- Informed consent discussed with the patient, including: condition, proposed care, treatments and services, alternative forms of treatment, and risks of no treatment. Details discussed around the procedures to be used, and the risks and hazards involved, potential benefits, and side effects of the patient s proposed care, treatment, and services; the likelihood of the patient achieving his or her goals; and any potential problems that might occur during recuperation. Reasonable alternative also discussed with the patient s proposed care, treatment, and services. The discussion encompasses risks, benefits, and side effects related to the alternative and risks related to not receiving the proposed care, treatment, and services. OGY DEPARTMENT CHAIR Associated attestation - Emi Jurado MD - 09/15/2023 5:12 PM BIOLOGY DEPARTMENT CHAIR I was the faculty on [facility] 09/15/2023. I agree with Kiersten Orourke' assessment and plan. Mrs. Molina is a 23 year old multiparous at 37 weeks who presents for elevated bps at home 140/90s, h/a, decreased FM and overall not feeling well. She was admitted for IOL due to GHTN based on elevated bps at home and at the hospital. Emi Jurado MD [facility] Procedure Notes Date/Time Note Provider Source 2023-09-16 02:10:07 Associated Order(s): Central Neuraxial Block Central Neuraxial Block Date/Time: 09/16/2023 2:10 AM Performed by: Bulmaro Newberry MD Authorized by: Alonso Reynolds MD Patient Location: OB End Time: 09/16/2023 2:10 AM Reason for Block: OB request, Patient request, Labor analgesia, Surgical anesthesia and Post-op pain management Staff: Anesthesiologist: Alonso Reynolds MD Resident/RUBBING BED OPERATOR: Bulmaro Newberry MD Performed by: resident/RUBBING BED OPERATOR Preanesthetic Checklist: patient identified, IV checked, risks and benefits explained, monitors and equipment checked, timeout performed, pre-op evaluation, site marked and anesthesia consent Procedure: Type of Neuraxial: Epidural Epidural Description: 1st attempt Sterility Prep cap, gloves, mask and drape Sedation Level no sedation Patient Position: sitting Prep: Betadine and patient draped Monitoring: heart rate, continuous pulse ox, heart rate / toco and NIBP Location: lumbar (1-5) Lumbar: L3-L4 Approach: midline Technique: catheter and PATRH saline Guidance with: landmark technique} Epidural/Spinal [place] and/or Catheter: Epidural/Spinal Kit: BBnakita Needle Type: Tuohy Needle Gauge: 17 G Needle Length: 3.5 in (8.89 cm) Needle Insertion Depth: 8 Catheter Type: multiport Catheter Size: 19 G Catheter at Skin Depth: 13 Number of Attempts: 1 Test Dose: lidocaine 1.5% with epinephrine 1-to-200,000 and negative Dose: 3 cc Catheter Securement Method: surgical tape, Tegaderm, clear occlusive dressing and liquid medical adhesive Assessment: Sensory Level: below T10 Block Outcome: a full evaluation is pending Procedure Assessment: patient tolerated procedure well with no complications Notes: Patient identified; pre-procedure verification. Patient prepped and draped in standard sterile fashion using betadine x 3 Subcutaneous infiltration with 1% Lidocaine PARTH at 8 cm; catheter secured at 13 cm with mastisol, tegaderm x2 and 3-inch clear tape. Aspiration test negative x 3 Test dose negative Patient tolerated procedure well with no immediate complications Epidural expectations; PCEA explained and fall precautions given. OGY DEPARTMENT CHAIR AN-ANESTHESIOLOGY [facility] Notes Date/Time Note Provider Source 2024-07-04 16:42:00 Regarding: groggy, can't focus, Nauseous, hot internally, SOB, fast heartrate . x several weeks. ----- Message from Patient Manager Mass sent at 07/04/2024 4:40 PM BIOLOGY DEPARTMENT CHAIR ----- Urvashi Molina is a 24 year old female Pt felling groggy, can't focus, Nauseous, hot internally, shortness of breath, fast heartrate when she gets up. x several weeks. Pt stated she is having fast heart rate right now. OGY DEPARTMENT CHAIR Blaire Tapia RN [facility] 2024-07-04 16:42:00 Adult Triage Assessment Last Clinic Visit: 01/22/24- Urgent care- Tooth pain Primary Symptom: "Feels dehydrated" Onset / Duration: 2 weeks Location / Description: Generalized Pain / Severity: Denies Associated Symptoms: Tired, palpitations Fever / Method: Denies Hydration: Drinking tons of water, Decreased appetite "Just picks at food". Urinating ok. Treatment so far: Clindamycin 300 mg Effect on ADL's: Some LMP: 06/19/24 Pre-existing condition / Immunocompromised: Anxiety, Depression, Acute vaginits Urvashi Molina is a 24 year old female who has been feeling overwhelmingly tired and weak for the last few weeks. She says that she had some dental pain that she thought was causing it, but she went to an ER near her and "They looked at my tooth, gave me an antibiotic and sent me home." She reports that if she is "Doing to much, I will feel like I am going to pass out." Reports that she has not checked her pulse, but she has palpitations and will have shortness of breath with exertion. No sick contacts in her house. Recommendations and care advice given per protocol. Requesting appointment to Urgent care in [place]. No other questions at this time. Blaire MCGHEE, RN Reason for Disposition [1] MODERATE weakness (i.e., interferes with work, school, normal activities) AND [2] persists > 3 days Protocols used: Weakness (Generalized) and [id number] [facility] 2024-01-06 08:42:46 Please advise [facility] 2024-01-05 11:00:00 Images from the original note were not included. Venipuncture collection performed by clean technique on the right anticubitus. Total of 1 attempts were made. Slight pressure and a bandage/dressing were applied to the site(s). The patient experienced no complications. The following specimens were processed according to instructions and sent to [facility] laboratories per lab order on 01/05/2024: LT BLUE SST 4 RED LAV 1 PPT DK GREEN (LiHep) DK GREEN (SodH) ANTHONY DK BLUE (K2) DK BLUE (S) ACD Blood Culture NIPT/NTD [facility] 2024-01-04 10:11:47 Notified patient we have not seen her since 2021 she would need appointment. She stated she is unable to come in as she does not have a car. Routing to OB since last office visit was 11/02/23. Jillian Sanders LVN [facility] 2024-01-04 10:06:59 Urvashi Molina is a 23 year old female. Patient is calling stating that as of Wednesday she has vaginal discharge, vaginal itching and burning while urinating. Patient stated that she is not able to come into the office and is asking if the provider would be willing to prescribe something. Annie Yun [facility] 2023-12-13 15:03:51 Attempted to contact patient, no answer and no voicemail. Do not see ADHD medication on her medication list. Patient will need appointment if she feels she needs to increase medication Catalina Stapleton NP has prescribed. [facility] 2023-12-13 14:46:53 Urvashi Molina is a 23 year old female Pt is calling to report that she is wanting to be evaluated for ADHD at her next appointment on 12/15. Pt is requesting a call back for an update. Please advise. Allison Concepcion [facility] 2023-11-09 16:09:08 Pt notified letter has been posted to [employer]. Pt verbalized understanding. HOWARD BORREGO RN 11/09/2023 4:09 PM Howard Borrego RN [facility] 2023-11-09 15:48:13 Please provide patient with a return to work letter in chart THUAN Beard 11/09/2023 3:49 PM [facility] 2023-11-08 13:32:35 Pt requesting letter to return to work on 12/09/2023 due to not healing properly. Pt states she discussed this with provider Sameera. Pt states provider is aware of need for letter. Will route to provider. Howard Borrego RN [facility] 2023-11-08 12:49:08 Copied from [facility] #[id number]. Topic: Clinical - Medical Advice >> Nov 08, 2023 12:47 PM Patient Manager Mass wrote: Pt needs a letter for work stating she is not returning back to work until 12/09/2023 due to not healing properly. Please call pt at [phone] (home) Lyly Cool [facility] 2023-10-19 15:50:13 Spoke with patient, patient requested date and time for appointment, patient has been scheduled. Dolly Vogel [facility] 2023-10-19 15:05:58 Patient stated she has started having pain to incision site with movement today. Stated she started having vaginal bleeding today as well that is dark red. States pain is about 3/10. States she has been moving around more than often and has been running errands alone with her daughter and is having to waste picker her daughter. Patient stated she has not tried taking any pain meds. Advised patient to take OTC pain meds and to come in for 3 wk pp and can be evaluated. ER warnings given, verbalized understanding. [facility] 2023-10-19 14:31:25 Copied from [facility] #[id number]. Topic: Clinical - Medical Advice >> Oct 19, 2023 2:28 PM Patient Manager Mass wrote: Requesting to talk with an nurse having bleeding dark red and when standing up need to stand bent down before standing up straight feels like pulling. Please contact patient at [phone] (home) Amalia Dang [facility] 2023-10-14 13:11:53 Noted. [facility] 2023-10-14 13:08:12 Called patient , states she will stop by tomorrow to get paper work. OGY DEPARTMENT CHAIR Rosa Courtney [facility] 2023-10-14 12:36:43 Copied from [facility] #[id number]. Topic: Clinical - Paperwork/Forms >> Oct 14, 2023 12:35 PM Patient Manager Mass wrote: Pt requesting call back, wanting to know if paperwork is ready for waste picker. Please call [phone] (home) OGY DEPARTMENT CHAIR PERRY Roberts [facility] 2023-09-20 15:12:00 Regarding: heaviness in upper back/chest x 1 day, hurts to take deep breath, x 5 days ago ----- Message from Ivon Humphrey sent at 09/20/2023 3:12 PM BIOLOGY DEPARTMENT CHAIR ----- Urvashi Molina is a 23 year old female OGY DEPARTMENT CHAIR Alma Delia Smith RN [facility] 2023-09-20 15:12:00 Adult Triage Assessment Last Clinic Visit: 09/16/20232032-[id number]-[id number] Primary Symptom: upper back between shoulders feels heavy Onset / Duration: started yesterday, before leaving the hospital Location / Description: hurts when taking a deep breath. Lower breast area hurts as well. Pain / Severity: 5/10 currently, 7/10 when lying down. Aching pain. Associated Symptoms: Denies nausea or vomiting. Denies dizzy of lightheaded,vision changes, shortness of breath. Breathing in makes the pain feels worse. She states she told the discharge nurse yesterday about this pain, and the nurse told her it was probably gas. +Passing gas and burping. Fever / Method: denies fever. Temp not checked. Hydration: Appetite is decreased, due to the foods currently in her house. Picking at foods at her house. Drank 5 bottles of water today (16 oz each). Last void 1 hr ago. Burning with urination an hour ago, but she had used soap in the shower. Treatment so far: Tylenol 1000 mg taken at 2 pm today, Ibuprofen 600 mg at 630 am today, doing dishes, moving around. Effect on ADL's: Lying down and taking a deep breath in, makes the pain worse. LMP: NA Pre-existing condition / Immunocompromised: Recent Reason for Disposition Caller requesting information about medication use with ; neither adult nor is ill, triager answers question Back pain Protocols used: Medication Question [id number], Back [id number] "upper back between shoulders feels heavy, and pain" per pt. She states the discharge nurse told her it was gas when she was leaving the hospital yesterday. She states it started prior to leaving the hospital yesterday. Home care measures, and call back parameters reviewed. She stated understanding. Alma Delia Harper [facility] 2023-09-19 12:55:54 Problem: Discharge Planning - Goal: Adequate for discharge Outcome: Adequate for discharge Goal: Mood stable Outcome: Adequate for discharge Problem: Pain Goal: Control of pain at or below patient's documented comfort goal Outcome: Adequate for discharge Goal: Reduction in pain sensation Outcome: Adequate for discharge Problem: Falls, Risk of Goal: Absence of falls Outcome: Adequate for discharge OGY DEPARTMENT CHAIR Leah Germain RN [facility] 2023-09-19 08:03:44 Problem: Discharge Planning - Goal: Adequate for discharge Outcome: Adequate for discharge Goal: Mood stable Outcome: Adequate for discharge Problem: Pain Goal: Control of pain at or below patient's documented comfort goal Outcome: Adequate for discharge Goal: Reduction in pain sensation Outcome: Adequate for discharge Problem: Falls, Risk of Goal: Absence of falls Outcome: Adequate for discharge OGY DEPARTMENT CHAIR Kimberly Palomino RN [facility] 2023-09-18 23:34:49 Problem: Discharge Planning - Goal: Adequate for discharge Outcome: Progressing as expected Goal: Mood stable Outcome: Progressing as expected Problem: Pain Goal: Control of pain at or below patient's documented comfort goal Outcome: Progressing as expected Goal: Reduction in pain sensation Outcome: Progressing as expected Problem: Falls, Risk of Goal: Absence of falls Outcome: Progressing as expected PHANIA Cabrera RN [facility] 2023-09-17 22:07:58 Problem: Discharge Planning - Goal: Adequate for discharge Outcome: Progressing as expected Goal: Mood stable Outcome: Progressing as expected Problem: Pain Goal: Control of pain at or below patient's documented comfort goal Outcome: Progressing as expected Goal: Reduction in pain sensation Outcome: Progressing as expected Problem: Falls, Risk of Goal: Absence of falls Outcome: Progressing as expected [facility] 2023-09-17 07:59:26 Problem: Intrapartum process (including labor pain) Goal: Absence of or reduction of complications of labor Outcome: Progressing as expected Goal: Able to cope with pain Outcome: Progressing as expected Goal: Adequate to move to next level of care Outcome: Progressing as expected Goal: Reduction in pain sensation Outcome: Progressing as expected Problem: Discharge Planning - Goal: Adequate for discharge Outcome: Progressing as expected Goal: Mood stable Outcome: Progressing as expected OGY DEPARTMENT CHAIR [facility] 2023-09-16 21:30:01 Problem: Intrapartum process (including labor pain) Goal: Absence of or reduction of complications of labor Outcome: Progressing as expected Goal: Able to cope with pain Outcome: Progressing as expected Goal: Adequate to move to next level of care Outcome: Progressing as expected Goal: Reduction in pain sensation Outcome: Progressing as expected Problem: Discharge Planning - Goal: Adequate for discharge Outcome: Progressing as expected Goal: Mood stable Outcome: Progressing as expected PHANIA Casey RN [facility] 2023-09-16 11:30:00 Images from the original note were not included. This note was copied from a baby's chart. Assessment (most recent) Assessment - 09/16/23 1130 General Information Visit Consult Mom's age (years) 23 years Gestational age 37.1 weeks 4 Parity 3 Living Children 3 Feeding plan Breast wants to try and latch but states she wasn't successful latching with other kids so she pumped Breastfeed previously -- was able to latch 2 and 3 y/o Used pump previously Yes Notes states she pumped for 1 y/o for 2 months and 6 months with 3 y/o Planned maternity leave 12 Weeks Breast Pump Ordered Maternal medications prior to admission -- zoloft Delivery method Mental health history Anxiety;Depression Oral Assessment Oral assessment Deferred mech vent Date of 09/16/23 Time of 0616 location NICU Breast Assessment Breast Assessment Initial Symmetry Symmetrical Size M (B-C) Shape Rounded Other Soft Nipple & Areola Assessment Left Areola Pliable Right Areola Pliable Left Nipple Colostrum visible;Everted Right Nipple Colostrum visible;Everted Literature Resources Resources -- expressing milk for your NICU baby Education Benefits of breastmilk;Hand expression;Maternal nutrition/hydration;Use/se ttings of pump;Pump frequency;Storage of expressed breastmilk;Labeling of expressed breastmilk;Cleaning of pump parts;Lactogenesis;Nipple shield use, application, washing, storage and weaning Combatant Swimmer Observation Pumping -- pump set up now, mom wants to go visit baby now and then pump Interventions Pump start (massage, compression, expression);Taught hand expression Recommended Feeding Plan Recommended feeding plan Pump/hand express minimum 8 times in 24 hours including nights. Pump for 15-25 min. OTHER $ SERVICES Consult Angy Byrd RNC-[employer], IBCLC Pager - [phone] OGY DEPARTMENT CHAIR Lisa Byrd RN [facility] 2023-09-16 08:53:09 Patient: Urvashi Molina Procedure Summary Date: 09/16/23 Room / [facility] [place] [address] [facility] Anesthesia Start: 0 Anesthesia Stop: 703 Procedure: SECTION (Abdomen) Diagnosis: (, 37.1 Breech GHTN) Surgeons: Bharti Diaz MD Responsible Provider: Rohith Bartlett MBBS Anesthesia Type: Epidural ASA Status: 2 Anesthesia Type: Epidural Last vitals BP 119/69 (09/16/23799) Temp Pulse 70 (09/16/23799) Resp 23 (09/16/23799) SpO2 99 % (09/16/23799) There were no known notable events for this encounter. Anesthesia Post Evaluation Patient location during evaluation: PACU Patient participation: complete - patient participated Level of consciousness: awake and alert Pain score: 3 Pain management: satisfactory to patient Airway patency: patent Cardiovascular status: acceptable Respiratory status: acceptable Hydration status: acceptable Comments: Anesthesia Post Operative Faculty Note Date of service: 09/16/2023 Patient examined, patient awake. Vitals: BP 119/69 | Pulse 70 | Temp 36.6 ?C (97.9 ?F) (Axillary) | Resp 23 | Ht 1.676 m (5' 5.98") | Wt 109.4 kg (241 lb 1.6 oz) | LMP 12/30/2022 (Exact Date) | SpO2 99% | Unknown | BMI 38.93 kg/m? Block not fully resolved, as expected. Patient participated otherwise . Post-operative course: Block resolving appropriately and Patient discharged from PACU according to criteria. Fall precautions given. Complications: No apparent complications MEAGAN Olmedo [facility] AN-ANESTHESIOLOGY ANESTHESIOLOGIST [facility] 2023-09-16 07:24:55 Delivery Date: 09/16/2023 Delivery Time: 6:16 AM DELIVERY BY SECTION Date of Service: : 09/16/2023 at 6:16 AM Admitted for: IOL, Primary Lower uterine tranverse section with T incision, no BTL, Pfannenstiel, Closed with suture, EBL 600 cc, No complications, Findings: normal appearing uterus, bilateral fallopian tubes and ovaries, thin filmy adhesions on posterior uterus consistent with endometriosis Delivery Summary [place] Sex: male [place] Weight: 2810 g 1 Minute 5 Minute 10 Minute Totals: 6 8 Primary Indication: The patient was taken to the operating room for a primary section due to: malpresentation at 37w1d weeks. Procedures: Primary Lower uterine tranverse section with T incision Specimens Removed: Placenta Clinical Trials: None Surgeon: Melba Iraheta MD Piece Work Checker Surgeon: Vero Montgomery MD OB Faculty: Bharti Diaz MD Report: Prophylactic antibiotic, Ancef was given before patient was taken to OR. After arrival to the operating room patient was placed in the supine position with left lateral tilt after dosing of epidural anesthesia. Laparotomy A pfannenstiel incision was made through the anterior abdominal wall with #10 scalpel. The incision was extended sharply with the #10 scalpel through the subcutaneous tissue to the level of fascia. The fascia was entered sharply with a #10 scalpel and bluntly in Misgav-Ladach technique. The rectus muscles were in the midline bluntly with digits. The peritoneum was then entered bluntly. The peritoneal incision was then extended superiorly and inferiorly under direct visualization with care being taken to avoid bladder and bowel. No adhesions were noted. The peritoneal incision was enlarged bluntly by lateral traction from the surgeon's and construction assistant's hand. Delivery A bladder flap was not developed. A low transverse hysterotomy was made then with #10 scalpel and extended caudal and cephalad with fingers in a low transverse fashion with Manu Herrera technique with care being taken to avoid injury to the fetus. The amniotic (membranes) were then entered with spontaneous rupture of membrane, and the amniotic fluid was noted to be clear. hand palpated closest to hysterotomy and was reduced followed by attempt to bring the head to the hysterotomy. After unsuccessful attempt to rotate the fetus, bandage scissors were used to make extend the hysterotomy with a T-incision. The buttock was then able to be brought to the hysterotomy and was delivered through the incision with aid of surgeon's hand and aid of fundal pressure applied by the operations administrative assistant surgeon. Tobacco Feeder Catcher's index fingers were placed in the groin of the fetus for gentle traction. When the knees were delivered beyond the perineum, pressure was applied on the thigh to flex the knee and delivered the foot. The procedure was repeated for the other leg. A blue towel was placed across the pelvis and surgeon's hands were applied over the pelvis with the thumb on the sacrum and fingers on the anterior iliac crests. Continuous downward traction with gentle side to side rotation was applied until the body was delivered to the level of the scapula. The body was rotated until one of the shoulders was just below the hysterotomy. The anterior arm was delivered by splinting the humerus with 3d designer's fingers with downward sweeping motion. The body was rotated clockwise / counterclockwise until the shoulder came to anterior position. The above procedure was repeated for delivery of the other arm . The body was rotated to position with back in anterior position. Wild olvera was performed - 3d designer's index and middle fingers of inferior hand were placed over maxilla and two fingers of the other hand were hooked over the neck. Gentle downward traction along with operations administrative assistant applying fundal pressure for the flexion and delivery of the head . With delivery the baby, no extension was noted.Delayed cord clamping was not performed for 30-60 seconds due to nonreassuring status of the . Placenta was delivered spontaneously with steady traction on cord and manual separation of placenta from uterine wall. Closure Uterine cavity was cleaned after placental delivery with lap sponge x 2. The T-incision was closed in three layers with two layers using 0-chromic continuous locking stitches and the final layer with 2-0 chromic in a continuous non-locking imbricating fashion. The hysterotomy was closed in one layer with stitches using 0 chromic with continuous locking stitches. The ovaries/tubes/uterine surface were evaluated. They were found to be normal. Fascia was closed with running stitches using 0 vicryl. Hemostasis was checked for and found to be adequate. The subcutaneous tissue was irrigated and hemostasis was achieved where needed with electrocautery. Subcutaneous layer was closed with vicryl. The skin was then closed with subcutaneous stitches using monocryl sutures. The incision was cleaned and covered with a compression bandage and the procedure considered to be complete at this time. Intraoperative Complications: None EBL: 600 cc Uterotonics: 30 units pitocin at a rate of 600 cc/hr Disposition: The patient tolerated the procedure well. She was recovered in Obstetric PACU for close monitoring in stable condition, with a contracted uterus and normal transvaginal bleeding. The infant was sent to Transition Nursery. A segment of the cord was obtained for umbilical cord gases. Cord blood gas was not available at time of operative note entered. Please see [facility] for update. The placenta was not sent to pathology. Patient was counseled regarding T-incision on uterus and need for repeat section should she become in the future. She was counseled that a T-incision is an incision in the active segment of the uterus and presents a high risk of rupture should she go into labor, therefore she will need to deliver by 36 wks in future pregnancies. All questions were answered. Melba Iraheta MD COMPUTER INFORMATION SYSTEMS PROFESSOR PGY-2 09/16/23 7:38 AM OGY DEPARTMENT CHAIR Associated attestation - Bharti Diaz MD - 09/16/2023 7:59 AM BIOLOGY DEPARTMENT CHAIR I personally examined the patient and have verified the resident documentation and/or findings, including the history, physical exam, and medical decision making. I was present for delivery. Given position unable to maneuver for breech delivery. T-incision made to ensure safe delivery of following standard breech maneuvers. Patient aware of need for future section should she become in the future. Bharti Diaz MD [facility] 2023-09-16 02:10:40 Images from the original note were not included. Name/ MRN / Age / Gender: Urvashi Molina, [id number] 23 year old female BMI: Estimated body mass index is 38.93 kg/m? as calculated from the following: Height as of this encounter: 1.676 m (5' 5.98"). Weight as of this encounter: 109.4 kg (241 lb 1.6 oz). Allergies: Amoxicillin Last Vitals: BP Readings from Last 1 Encounters: 09/16/23 117/67 Pulse Readings from Last 1 Encounters: 09/16/23 68 SpO2 Readings from Last 1 Encounters: 09/16/23 99% Date of Surgery: 09/16/2023 Surgeon: * No surgeons listed * Procedure: CENTRAL NEURAXIAL BLOCK OR Location: [place] ANESTHESIA OUT OF OR - OR LOCATION Anesthesia Preop Eval (physical exam) Anesthesia Preop: Chart Review and Uanb-dy-Reur NPO Status Verified Clear Liquids: > 2 Hours Solid Food/Non-Clear Liquids: > 8 Hours PONV Risk Factors: female, non-smoker and post-op opiate use anticipated Anesthesia History Anesthesia History Negative per Chart Review Previous Anesthetics/Airways Cardiovascular (+) Hypertension Pulmonary Negative Pulmonary ROS Neuro/Musculoskeletal (+) Headaches (+) Anxiety (+) Obesity GI/Hepatic Negative GI/Hepatic ROS (+) GERD Hematology Comments: HGB (g/dL) Date Value 09/15/2023 9.9 (L) 09/15/23 1724 PLT 352 (+) Anemia Renal Negative Renal ROS Comments: K (mmol/L) Date Value 02/11/2023 4.1 CREATININE (mg/dL) Date Value 09/15/2023 0.33 (L) Estimated Creatinine Clearance: 329.1 mL/min (A) (by C-G formula based on SCr of 0.33 mg/dL (L)). Skin (+) Current IV access Endo/Other Negative Endo/Other ROS Other COMPUTER INFORMATION SYSTEMS PROFESSOR Comments: Urvashi Molina is a 23 year old at 37w0d by d/u (8) who presents with headache, DFM. DFM - c/o less movt than normal - states baby was active yesterday - BPP 03/16 - DVP 4.5cm - Plan: monitoring Headache - Reports constant frontal headache for several months, associated with nausea and blurry vision - seen in triage on 09/10, had negative PreE labs and headache improved with reglan/benadryl. Had 3 mild range BPs when pt lying on cuff, after adjustment all normal BPs - Tried taking tylenol multiple times without relief - Denies hx of migraines - States had similar symptoms with her last two pregnancies and was diagnosed with PreE, however on chart review she has a history of GHTN with her G1 . - Wears glasses, reports last eye exam was over a year ago - BP 109/84 - Plan: compazine, serial bp's, preE labs, TSH, po hydrate GBS positive - on urine cultre 03/2023 - PCN intrapartum Depression - on zoloft 150mg - Mood stable Antepartum course reviewed - 1 h 104, sero negative,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 nervous/anxious. Hematological: Does not bruise/bleed easily. Endocrine: Negative for weight gain. Physical Exam: ED Triage Vitals [03/01/231911] Weight 99.8 kg (220 lb) Actual or estimated Height 1.702 m (5' 7") BP 115/70 Pulse 88 Resp 18 Temp 37.5 ?C (99.5 ?F) Temp source Oral SpO2 100 % Measured on Room air Physical Exam Vitals reviewed. Constitutional: Appearance: She is well-developed. HENT: Head: Normocephalic and atraumatic. Eyes: Conjunctiva/sclera: Conjunctivae normal. Cardiovascular: Rate and Rhythm: Normal rate and regular rhythm. Heart sounds: Normal heart sounds. No murmur heard. Pulmonary: Effort: Pulmonary effort is normal. Breath sounds: Normal breath sounds. No stridor. Abdominal: General: Bowel sounds are normal. Palpations: Abdomen is soft. Tenderness: There is no abdominal tenderness. Comments: Hovering over vomit bag Musculoskeletal: General: Normal range of motion. Cervical back: Neck supple. Skin: General: Skin is warm and dry. Capillary Refill: Capillary refill takes less than 2 seconds. Neurological: Mental Status: She is alert and oriented to person, place, and time. Cranial Nerves: No cranial nerve deficit. Psychiatric: Behavior: Behavior normal. Radiology: No orders to display Lab Results: Lab Results URINALYSIS - Abnormal Result Value Ref Range APPEARANCE Hazy (*) Clear COLOR Yellow Yellow PH 6.0 4.8 - 8.0 SP GRAVITY 1.025 1.003 - 1.030 GLU U QUAL Normal Normal BLOOD Negative Negative KETONES 20 mg/dL (*) Negative PROTEIN Negative Negative UROBILIN Normal Normal BILIRUBIN Negative Negative NITRITE Negative Negative LEUK KAREN Negative Negative RBC/HPF 2 0 - 3 HPF WBC/HPF 1 0 - 5 HPF BACTERIA Few (*) Negative MUCOUS Slight (*) Negative LPF SQ EPITH 12 HPF POCT TEST - Normal POCT PREG Positive On board controls acceptable with C Line Yes POCT PREG LOT # [id number] POCT PREG TEST DATE 07-21-2024 EKG: If EKG completed, see Procedure Note. Orders and Treatments: Orders Placed This Encounter Procedures URINALYSIS POCT TEST Orders Placed This Encounter Medications NaCl 0.9% (NS) bolus infusion 500 mL ondansetron (ZOFRAN (PF)) injection 4 mg SERTraline (ZOLOFT) tablet 50 mg DISCONTD: SERTraline 50 mg tablet DISCONTD: ondansetron 4 mg disintegrating tablet ondansetron (ZOFRAN-ODT) disintegrating tablet 4 mg SERTraline 50 mg tablet ondansetron 4 mg disintegrating tablet First Provider Eval: ED Events Date/Time Event User Comments 03/01/231927 Medical Screening Begins KAREN COLON MD -- 03/01/231927 First Provider Evaluation KAREN COLON MD -- ED COURSE Diagnosis/Impression as of 03/01/232020 Dizziness Morning sickness Procedures: Procedures MDM: Medical Decision Making Ordered fluids and zoloft and zofran Pt reports her mom is leaving and so she is asking to be discharged now. Script for zoloft and zofran sent to [facility]. discharged Problems Addressed: Dizziness: acute illness or injury Morning sickness: acute illness or injury Amount and/or Complexity of Data Reviewed Labs: ordered. Risk Prescription drug management. Flowsheet Documentation: Scoring Tools: No data recorded Disposition/Condition: ED Disposition ED Disposition Disch - Home Condition Stable Comment -- Discharge Medications: Current Discharge Medication List START taking these medications Details ondansetron 4 mg disintegrating tablet Take 1 tablet by mouth every 8 (eight) hours as needed for Nausea and Vomiting (N/V). Qty: 20 tablet, Refills: 0 Associated Diagnoses: Dizziness; Morning sickness !! SERTraline 50 mg tablet Take 1 tablet by mouth in the morning. Qty: 30 tablet, Refills: 3 Associated Diagnoses: Dizziness; Morning sickness !! - Potential duplicate medications found. Please discuss with provider. CONTINUE these medications which have NOT CHANGED Details !! SERTraline (ZOLOFT) 50 mg tablet Take 1 tablet by mouth in the morning. Qty: 30 tablet, Refills: 0 Comments: Appointment needed before next refill Associated Diagnoses: Anxiety and depression !! - Potential duplicate medications found. Please discuss with provider. Follow-up: Electronically signed by: Karen Colon DO 03/01/232020 [facility] 2023-03-01 17:41:38 Formatting of this n ote might be different from the original. Urvashi Molina is a 22 year old female Pt is calling asking if something can be sent to her primary doctor so she can be prescribed Zoloft. Stating she is having withdrawals, not being able to stand and eat. Please advise Larry Hampton [facility] 2023-02-27 15:06:00 Formatting of this n ote might be different from the original. Regarding: pregnat, allergies and difficulty sleeping. asking to speak with nurseabout Benadryl ----- Message from Allyssa Casey sent at 02/27/2023 3:05 PM CDT ----- 8wks and 4 days Pt having allergies and is having difficulty sleeping. She is asking to speak with nurse to know if she can take Benadryl T Fermin Pathak RN [facility] 2023-02-27 15:06:00 Formatting of this n ote might be different from the original. Urvashi Molina is a 22 year old female Patient calling seeking advice on taking Benadryl while . Advised that Benadryl has been determined to be a safe medication while Fermin MCGHEE, RN [facility] Access Center Reason for Disposition Caller has medication question only, adult not sick, and triager answers question Protocols used: Medication Question [id number] [facility] 2023-02-27 15:06:00 Formatting of this n ote might be different from the original. Noted. [facility]
[2024-11-26] MEDS ORDERED: BUPIVACAINE 0.5% PF 10 ML VIAL ONE (19:59)
[2024-11-26] MEDS ORDERED: CEFTRIAXONE 1000 MG/VIAL ONE (19:59)
[2024-11-26] MEDS ORDERED: KETOROLAC 30 MG/ML INJ ONE (20:00)
[2024-11-26] MEDS ORDERED: TRAMADOL HCL 50 MG TAB ONE (20:00)
[2024-11-26] MEDS ORDERED: ONDANSETRON 4 MG (ODT) TAB ONE (20:00)
[2024-11-26] MEDS ORDERED: WATER FOR INJ,STERILE 10 ML ONE (20:01)
--- NOTE | 2024-11-26 21:01 | ER ---
Nurse's Notes [facility] Name: Urvashi Molina Age: 24 yrs Sex: Female : 2000 Arrival Date: 11/26/2024 Time: 19:09 Bed 11 Private MD: Diagnosis: Acute dental pain, periapical abscess, dental cavity, moderate dental decay, mild to moderate periodontal disease Presentation: 11/26 19:20 Chief complaint: Patient states: RIGHT LOWER TOOTHACHE AND RADIATES TO RIGHT FACE AND br2 NECK.....IBUPROFEN 800MG AT 1800 TODAY. Coronavirus screen: Client denies travel out of the [place] in the last 14 days. Ebola Screen: Patient denies exposure to infectious person. Initial Sepsis Screen: Does the patient meet any 2 criteria? No. Patient's initial sepsis screen is negative. Does the patient have a suspected source of infection? No. Patient's initial sepsis screen is negative. Risk Assessment: Do you want to hurt yourself or someone else? Patient reports no desire to harm self or others. Onset of symptoms is unknown. 19:20 Method Of Arrival: Ambulatory br2 19:20 Acuity: DELVIS 5 br2 Historical: - Allergies: 19:23 Amoxicillin; br2 19:23 AZO Standard; br2 - PMHx: 19:23 Anxiety; high heart rate; br2 - PSHx: 19:23 Cholecystectomy; br2 - Immunization history:: Adult Immunizations up to date. - Infectious Disease History:: Denies. - Social history:: Smoking status: Patient denies any tobacco usage or history of. Patient uses alcohol, but reports only rare drinking. Patient/guardian denies using street drugs. Screenin:20 Clinical [facility] Withdrawal Assessment for Alcohol, revised (CIWA-Ar):. [facility] ED br2 Fall Risk Assessment (Adult) History of falling in the last 3 months, including since admission No falls in past 3 months (0 pts) Confusion or Disorientation No (0 pts) Intoxicated or Sedated No (0 pts) Impaired Gait No (0 pts) Mobility Assist Device Used No (0 pt) Altered Elimination No (0 pt) Score/Fall Risk Level 0 - 2 = Low Risk. Abuse screen: Denies threats or abuse. Denies injuries from another. Nutritional screening: No deficits noted. Tuberculosis screening: No symptoms or risk factors identified. Assessment: 21:19 Reassessment: Patient appears in no apparent distress at this time. Patient and/or jb4 family updated on plan of care and expected duration. Pain level reassessed. Patient is alert, oriented x 3, equal unlabored respirations, skin warm/dry/pink. Patient states feeling better. 21:19 General: Appears in no apparent distress. uncomfortable, Behavior is calm, cooperative, jb4 appropriate for age. Pain: Complains of pain in mouth Pain does not radiate. Pain currently is 10 out of 10 on a pain scale. Neuro: Level of Consciousness is awake, alert, obeys commands, Oriented to person, place, time, situation. Cardiovascular: Patient's skin is warm and dry. Respiratory: Airway is patent Respiratory effort is even, unlabored, Respiratory pattern is regular, symmetrical. Derm: Skin is intact, Skin is pink, warm \T\ dry. Musculoskeletal: Circulation, motion, and sensation intact. Range of motion: intact in all extremities. Vital Signs: 19:20 BP 138 / 98; Pulse 80; Resp 18; Temp 97.7; Weight 104.33 kg; Height 5 ft. 6 in. ; Pain br2 10/10; 19:20 Body Mass Index 37.12 (104.33 kg, 167.64 cm) br2 19:20 Pain Scale: Adult br2 ED Course: 19:13 Patient arrived in ED. im 19:20 Patient has correct armband on for positive identification. Bed in low position. Call br2 light in reach. Side rails up X 1. Provided Education on: PLAN OF CARE. 19:21 Andry Oropeza MD is Attending Physician. sp4 19:23 Triage completed. br2 19:51 Roberto Robles, LINDSEY is Primary Nurse. jb4 21:00 Dima Morris DDS is Referral Physician. sp4 21:19 No provider procedures requiring assistance completed. Patient did not have IV access jb4 during this emergency room visit. Administered Medications: 20:13 Drug: traMADol PO 100 mg PO once Route: PO; jb4 21:10 Follow up: Response: No adverse reaction; Marked relief of symptoms jb4 20:13 Drug: Ondansetron PO 8 mg PO once Route: PO; jb4 21:09 Follow up: Response: No adverse reaction; Marked relief of symptoms jb4 20:16 Drug: Ketorolac IM 60 mg IM once Route: IM; Site: left gluteus; jb4 21:10 Follow up: Response: No adverse reaction; Marked relief of symptoms jb4 20:20 Drug: Rocephin (cefTRIAXone) IM 1 grams IM once Route: IM; Site: right vastus lateralis;jb4 21:09 Follow up: Response: No adverse reaction jb4 21:08 Drug: Bupivacaine Infiltration (0.5 %) 10 ml 10 ml Infiltration once {Note: jb4 administered by ER physician..} Volume: 10 ml; Route: Infiltration; Medication: 21:19 VIS not applicable for this client. jb4 Outcome: 21:00 Discharge ordered by . jd 21:19 Discharged to home ambulatory, with friend, jb4 21:19 Condition: stable 21:19 Discharge instructions given to patient, Instructed on discharge instructions, follow up and referral plans. no drinking with medication, no driving heavy equipment, medication usage, Demonstrated understanding of instructions, follow-up care, medications, Prescriptions given X 3, 21:22 Patient left the ED. jb4 Signatures: Roberto Robles, RN RN jb4 Andry Oropeza MD MD sp4 Zuly España Belinda RN RN br2 Corrections: (The following items were deleted from the chart) 20:20 20:16 Ketorolac IM 60 mg IM in right gluteus jb4 jb4
--- NOTE | 2024-11-26 21:01 | EDPHYS ---
Physician Documentation [facility] Name: Urvashi Molina Age: 24 yrs Sex: Female : 2000 Arrival Date: 11/26/2024 Time: 19:09 Bed 11 Private MD: ED Physician Andry Oropeza HPI: 11/26 19:21 This 24 yrs old Female presents to ER via Unassigned with complaints of sp4 Toothache. Historical: - Allergies: 19:23 Amoxicillin; br2 19:23 AZO Standard; br2 - PMHx: 19:23 Anxiety; high heart rate; br2 - PSHx: 19:23 Cholecystectomy; br2 - Immunization history:: Adult Immunizations up to date. - Infectious Disease History:: Denies. - Social history:: Smoking status: Patient denies any tobacco usage or history of. Patient uses alcohol, but reports only rare drinking. Patient/guardian denies using street drugs. Vital Signs: 19:20 BP 138 / 98; Pulse 80; Resp 18; Temp 97.7; Weight 104.33 kg; Height 5 ft. 6 in. ; Pain br2 10/10; 19:20 Body Mass Index 37.12 (104.33 kg, 167.64 cm) br2 19:20 Pain Scale: Adult br2 MDM: 19:23 Medical Screening Exam initiated sp4 Administered Medications: 20:13 Drug: traMADol PO 100 mg PO once Route: PO; jb4 21:10 Follow up: Response: No adverse reaction; Marked relief of symptoms jb4 20:13 Drug: Ondansetron PO 8 mg PO once Route: PO; jb4 21:09 Follow up: Response: No adverse reaction; Marked relief of symptoms jb4 20:16 Drug: Ketorolac IM 60 mg IM once Route: IM; Site: left gluteus; jb4 21:10 Follow up: Response: No adverse reaction; Marked relief of symptoms jb4 20:20 Drug: Rocephin (cefTRIAXone) IM 1 grams IM once Route: IM; Site: right vastus lateralis;jb4 21:09 Follow up: Response: No adverse reaction jb4 21:08 Drug: Bupivacaine Infiltration (0.5 %) 10 ml 10 ml Infiltration once {Note: jb4 administered by ER physician..} Volume: 10 ml; Route: Infiltration; Disposition Summary: 11/26/24 21:00 Discharge Ordered Notes: Location: Home sp4 Problem: new sp4 Symptoms: have improved sp4 Condition: Stable sp4 Diagnosis - Acute dental pain, periapical abscess, dental cavity, moderate dental decay, mild sp4 to moderate periodontal disease Followup: sp4 - With: Dima Morris DDS - When: 7 - 10 days - Reason: Recheck today's complaints Discharge Instructions: - Discharge Summary Sheet sp4 - Dental Caries, Adult, [id number] sp4 Forms: - Patient Portal Instructions sp4 Prescriptions: - naproxen 500 mg Oral tablet - take 1 tablet ORAL route every 12 hours PRN pain; 50 tablet; Refills: 0, sp4 Product Selection Permitted - Cephalexin 500 mg Oral Capsule - take 1 capsule ORAL route every 6 hours for 10 days; 40 capsule; Refills: 0, sp4 Product Selection Permitted - Tramadol 50 mg Oral Tablet - take 1 tablet ORAL route every 8 hours as needed; 12 tablet; Refills: 0, sp4 Product Selection Permitted Signatures: Dispatcher [employer] Roberto Geiger, RN RN jb4 Andry Oropeza MD MD sp4 Beata Malloy RN RN br2
[2024-11-26 21:38] VITALS: BP 138/98; TEMP 97.7
== END 2024-11-26 21:22 | disposition home or self-care (01) ==
LOC: ER 19:09
DX: K04.7 Periapical abscess without sinus (principal); K05.6 Periodontal disease, unspecified; K02.9 Dental caries, unspecified
CPT/HCPCS: 96372; 99284; J0696; Q0162

== ENCOUNTER 2024-12-10 01:40 | Emergency (ER) | payer SELFPAY ==
--- OUTSIDE RECORDS SUMMARY | 2024-12-10 01:53 | XMS REPORT | Continuity of Care Document ---
Author Name Unknown Address [address] [facility] [address] [place] [address] [facility] [place] Address [address] [facility] [place] [address] Care Team Providers Care Bookmobile Librarian Name Role Phone CATALINA STAPLETON Primary Care Physician Unavailab Jama Muniz Attending Clinician [phone] Unknown, Attending Attending Clinician Unavailab JAMA Wing Attending Clinician Unavailable Blaire Tapia RN Attending Clinician UnavailCATALINA Zheng Attending Clinician Unavailable Reyes Hampton Attending Clinician + Monty Stringer Attending Clinician [phone] Unknown, Attending Attending Clinician Unavailab MONTY Oviedo Attending Clinician Unavailable Catalina Lacy Attending Clinician [phone] Doctor Unassigned, [place] Attending Clinician U navailable Lab, Ang - Db Attending Clinician Unavailable CAPRICE STOVER Attending Clinician Unavailable Caprice Cruz Attending Clinician [phone] Zoe Goodman CNM Attending Clinician REYES RICHARDS Attending Clinician Unavail able ZOE GOODMAN Attending Clinician Unavaila JANETTE Campoverde Attending Clinician Unavailable Visit, [facility] Nurse Attending Clinician Unava hailey Smith RN, Alma Delia Tinsley Attending Clinician Unavailab EMI Richey Attending Clinician Unavailable Britt RIVERA, Emi Attending Clinician [phone] Bharti Diaz MD Attending Clinician [phone] Bulmaro Newberry MD Attending Clinician [phone] Rohith Choudhury Attending Clinician [phone] SHANNAN VIRK Attending Clinician Unavailable Risk, Ooq-Mvhgt-Ol/High Attending Clinician Unav ailable Shannan Whitney Attending Clinician [phone] HANNAH DANG Attending Clinician Unavailable HANNAH DANG Attending Clinician Unavailable Alton RIVERA, Hannah Martinez Attending Clinician + [phone] Avril RN, Velia Martinez Attending Clinician Unavailable Lorena Gleason RN Attending Clinician Unavailabl e Ultrasound, [facility] Attending Clinician Unavaila BETTIE Ty Attending Clinician UnavaBETTIE Emanuel Attending Clinician Merlyn Tan RN, Toshia Attending Clinician Unavailabl Jose Eng MD Attending Clinician [phone] Jayde Lopez RN Attending Clinician Hannah [facility]ailable [facility] Attending Clinician Unavailable Alexa Watkins MD Attending Clinician [phone] ALEXA WATKINS Attending Clinician Unavailable ALEXA WATKINS Attending Clinician Unavailable 4, [facility] Attending Clinician Unavaila KAREN Hernández Attending Clinician Unavailab Karen Monroe DO Attending Clinician + [phone] Lawson PORTILLO, Fermin Unger Attending Clinician Unavailabl KAYLENE Wiggins Attending Clinician Unavailable Kaylene Karimi Attending Clinician [phone] JOE GLORIA Attending Clinician Unavailable Anum Toledo Attending Clinician [phone] ANUM GUERRA Attending Clinician Unavailabl e Provider, [facility] Attending Clinician Unavailable CHRISTINE PENA Attending Clinician Unavailable Jean NURSING FACULTY, Christine Attending Clinician [phone] Kena NURSING FACULTY, Britney Vasquez Attending Clinician + [phone] Omaghomi NURSING FACULTY, Ciarra Attending Clinician [phone] HERNANDEZ, MARSHALLSHAD Unger Attending Clinician Unavailab louisa Hernandez NURSING FACULTY, Nicaprecious Unger Attending Clinician [phone] BRUCE CALLEJAS Attending Clinician Unavailable Trimester, [facility]st Attending Clinician Unavailable Tera RIVERA, Bruce Attending Clinician [phone] EUN SANTOS Attending Clinician Unavailable Tom RIVERA, Eun Attending Clinician +[phone] JAKE KOCH III Attending Clinician Unavailabl HERMELINDO Wetzel Attending Clinician Unavailabl Josee Saab Attending Clinician + [phone] Alina RIVERA, Sarika Jolly Attending Clinician [phone] TIMA HERRING K.H. Attending Clinician Unavailsalazar Wilson RN, Eloisa Lincoln Attending Clinician Unavailab louisa Walton, [facility] P[facility] I Attending Clinician Unavailab louisa Ackerman MD, Rashel Leone Attending Clinician + Subhash PORTILLO, Shae Attending Clinician Unavailable Zac RIVERA, Tima K.H. Attending Clinician [phone] Gretchen Chavez MD, Tyler Attending Clinician + Provider, [facility] Attending Clinician Un available Shay MI, Cristian Attending Clinician + [phone] CRISTIAN DAY Attending Clinician Unavailable 2, [facility] Attending Clinician Unavailsalazar alexander [facility] Attending Clinician Shani Walsh MD, Ran Unger Attending Clinician + 2 Lab, [facility] Attending Clinician Unavailable 1, [facility] Attending Clinician Unavailsalazar ROJASP, Aleyda Attending Clinician [phone] Luis Eduardo RIVERA, Rebecca Haines Attending Clinician + Provider, [facility] Attending Clinician Hannah billy Gonzalez [facility] [phone] Ezra RN, Shannan Watson Attending Clinician Unavailsalazar Dorsey RN, Kaylene Arroyo Attending Clinician UnavailAmy Zhang DO Attending Clinician [phone] Taj RIVERA, Swati Gonzalez Attending Clinician [phone] SARIKA FULLER Attending Clinician Unavailable TYLER MALDONADO Attending Clinician Unagraham Cortes RN, Karina Martinez Attending Clinician Unavail able CUONG ZAPATA Attending Clinician Unavailable DEVIN MATHEW Attending Clinician Unavailable HANNAH DANG Admitting Clinician Unavailable SARIKA FULELR Admitting Clinician Unavailable EMI JURADO Admitting Clinician Unavailable Britt RIVERA, Emi Admitting Clinician +[phone] Hannah Dang MD Admitting Clinician +[phone] BETTIE GONZALEZ Admitting Clinician EUN Parks Admitting Clinician Unavailable Sarika Fuller MD Admitting Clinician +[phone] Rebecca Hoff MD Admitting Clinician + Taj RIVERA, Swati Gonzalez Admitting Clinician +[phone] CUONG ZAPATA Admitting Clinician Unavailable Payers Payer Name Policy Type Policy Number Effective Date Expirati on Date Source [facility] [id number] 2019 00:00:00 ENTRUST [id number] 2019 00:00:00 Problems Condition Name Condition Details Condition Category Status Onset Date Resolution Date Last Treatment Date Treating Clinician Comments Source Anxiety and depression Anxiety and depression Disease Active 01-04 00:00: 00 [facility] Acute vaginitis Acute vaginitis Disease Active 01-04 00:00: 00 [facility] Other general counseling and advice for contracept john management Other general counseling and advice for contracept john management Disease Active 11-01 00:00: 00 [facility] Need for HPV vaccinatio n Need for HPV vaccinatio n Disease Active 3-26 00:00: 00 [facility] related nausea, antepartum related nausea, antepartum Disease Active 7-06 00:00: 00 [facility] Declined flu vaccine Declined flu vaccine Disease Active 2019-08 0 00:00: 00 [facility] History of gestationa l hypertensi on History of gestationa l hypertensi on Disease Active 2019-08 0 00:00: 00 [facility] Anxiety Anxiety Disease Active 2019-08 0 00:00: 00 [facility] Obesity affecting Obesity affecting Disease Active 2018-08 0 00:00: 00 [facility] Leukocytos is, unspecifie d type Leukocytos is, unspecifie d type Active Problem 09/07/2018 eCW: [facility] Problem Active 2018-09-07 05:10:56 Elisa Seals Lower abdominal pain Lower abdominal pain Active Diagnosis 08/30/2018 eCW: [facility] Diagnosis Active 2018-08-30 05:15:14 Elisa Seals Encounter for screening Encounter for screening Active Diagnosis 08/30/2018 eCW: [facility] Diagnosis Active 2018-08-30 05:15:14 Elisa Seals Single delivery by section Single delivery by section Disease Resolve d 0 2-14 00:00: 00 2023-11-02 00:00:00 2023-11-02 11:16:24 [facility] Multiparit y Multiparit y Disease Resolve d 0 1-03 00:00: 00 2023-11-02 00:00:00 2023-11-02 11:17:15 [facility] 37 weeks gestation of 37 weeks gestation of Disease Resolve d 2023-0 2-07 00:00: 00 2023-09-22 00:00:00 2023-09-22 16:31:29 [facility] Decreased movement affecting management of in third trimester, not applicable or unspecifie d fetus Decreased movement affecting management of in third trimester, not applicable or unspecifie d fetus Disease Resolve d 2023-0 2-07 00:00: 00 2023-09-22 00:00:00 2023-09-22 16:31:30 [facility] Headache in , antepartum , third trimester Headache in , antepartum , third trimester Disease Resolve d 2023-0 2-07 00:00: 00 2023-09-22 00:00:00 2023-09-22 16:31:33 [facility] 36 weeks gestation of 36 weeks gestation of Disease Resolve d 2023-0 2-02 00:00: 00 2023-09-22 00:00:00 2023-09-22 16:31:37 [facility] Supervisio n of high-risk Supervisio n of high-risk Disease Resolve d 0 1-03 00:00: 00 2023-09-22 00:00:00 2023-09-22 16:31:49 [facility] Urinary tract infection in mother during second trimester of Urinary tract infection in mother during second trimester of Disease Resolve d 2022-1 0-25 00:00: 00 2023-09-22 00:00:00 2023-09-22 16:31:51 [facility] GBS (group B streptococ cus) UTI complicati ng GBS (group B streptococ cus) UTI complicati ng Disease Resolve d 2022-0 8-07 00:00: 00 2023-09-22 00:00:00 2023-09-22 16:31:32 [facility] History of miscarriag e, currently History of miscarriag e, currently Disease Resolve d 2022-0 7-06 00:00: 00 2023-09-22 00:00:00 2023-09-22 16:31:46 [facility] Maternal varicella, non-immune Maternal varicella, non-immune Disease Resolve d 2019-08 0-21 00:00: 00 2023-09-22 00:00:00 2023-09-22 16:31:34 Overview: Formattin g of this note might be different from the original. Address pp [facility] History of pre-eclamp amelia in prior , currently History of pre-eclamp amelia in prior , currently Disease Resolve d 2019-08 0-20 00:00: 00 2023-09-22 00:00:00 2023-09-22 16:31:47 [facility] Anxiety during Anxiety during Disease Resolve d 2019-08 0-20 00:00: 00 2023-09-22 00:00:00 2023-09-22 16:31:42 [facility] Anemia of mother in , antepartum Anemia of mother in , antepartum Disease Resolve d 2019- 4-01 00:00: 00 2023-09-22 00:00:00 2023-09-22 16:31:40 [facility] Obesity during Obesity during Disease Resolve d 2018-08 0-28 00:00: 00 2023-09-22 00:00:00 2023-09-22 16:31:36 [facility] Nausea and vomiting during Nausea and vomiting during Disease Resolve d 7-06 00:00: 00 2023-05-05 00:00:00 2023-05-05 14:50:39 [facility] Nausea and vomiting during Nausea and vomiting during Disease Resolve d 0 7-06 00:00: 00 2023-05-05 00:00:00 2023-05-05 14:50:39 [facility] examinatio n or test, negative result examinatio n or test, negative result Disease Resolve d 0 5-02 00:00: 00 2023-02-11 00:00:00 2023-02-11 08:32:46 [facility] SAB (spontaneo us ) SAB (spontaneo us ) Disease Resolve d 0 5-02 00:00: 00 2023-02-11 00:00:00 2023-02-11 08:32:48 [facility] Supervisio n of high-risk Supervisio n of high-risk Disease Resolve d 2019-08 0-20 00:00: 00 2023-02-11 00:00:00 2023-02-11 08:32:50 [facility] Multiparit y Multiparit y Disease Resolve d 2019-08 0-20 00:00: 00 2023-02-11 00:00:00 2023-02-11 08:32:42 [facility] Short interval between pregnancie s affecting , antepartum Short interval between pregnancie s affecting , antepartum Disease Resolve d 2019-08 0-20 00:00: 00 2023-02-11 00:00:00 2023-02-11 08:32:49 [facility] Obesity in Obesity in Disease Resolve d 2-01 00:00: 00 2023-02-11 00:00:00 2023-02-11 08:32:45 [facility] Anemia of mother in , condition Anemia of mother in , condition Disease Resolve d 6-05 00:00: 00 2021-10-21 00:00:00 2021-10-21 14:51:23 [facility] Single live Single live Disease Resolve d 0 6-05 00:00: 00 2021-10-21 00:00:00 2021-10-21 14:51:08 [facility] Obesity (BMI 30-39.9) Obesity (BMI 30-39.9) Disease Resolve d 6-03 00:00: 00 2021-10-21 00:00:00 2021-10-21 14:51:11 [facility] 38 weeks gestation of 38 weeks gestation of Disease Resolve d 0 6-03 00:00: 00 2021-10-21 00:00:00 2021-10-21 14:51:25 [facility] Decreased movement Decreased movement Disease Resolve d 0 6-03 00:00: 00 2021-10-21 00:00:00 2021-10-21 14:51:16 [facility] Indication for care or interventi on in labor or delivery-I OL d/t DFM Indication for care or interventi on in labor or delivery-I OL d/t DFM Disease Resolve d 0 6-03 00:00: 00 2021-10-21 00:00:00 2021-10-21 14:51:13 [facility] Circumvall ate placenta Circumvall ate placenta Disease Resolve d 2020-0 2-01 00:00: 00 2021-10-21 00:00:00 2021-10-21 14:51:18 [facility] Headache in Headache in Disease Resolve d 2020-0 1-15 00:00: 00 2021-10-21 00:00:00 2021-10-21 14:51:15 [facility] (spontaneo us vaginal delivery) (spontaneo us vaginal delivery) Disease Resolve d 2019-0 6-15 00:00: 00 2021-10-21 00:00:00 2021-10-21 14:51:04 [facility] Nausea and vomiting during Nausea and vomiting during Disease Resolve d 2020-0 5-28 00:00: 00 2021-01-09 00:00:00 2021-01-09 14:30:46 [facility] Nausea and vomiting during Nausea and vomiting during Disease Resolve d 2020-0 5-28 00:00: 00 2021-01-09 00:00:00 2021-01-09 14:30:46 [facility] Pain of round ligament during Pain of round ligament during Disease Resolve d 2020-0 5-03 00:00: 00 2021-01-09 00:00:00 2021-01-09 14:30:45 [facility] Routine follow-up Routine follow-up Disease Resolve d 2019-0 7-13 00:00: 00 2020-05-28 00:00:00 2020-05-28 13:43:04 [facility] Elevated blood pressure reading without diagnosis of hypertensi on Elevated blood pressure reading without diagnosis of hypertensi on Disease Resolve d 2019-0 6-12 00:00: 00 2020-05-28 00:00:00 2020-05-28 13:43:11 [facility] [place] Hick's contractio n Severino Hick's contractio n Disease Resolve d 2019-0 4-27 00:00: 00 2020-05-28 00:00:00 2020-05-28 13:43:17 [facility] Leukorrhea Leukorrhea Disease Resolve d 2019-0 3-02 00:00: 00 2020-05-28 00:00:00 2020-05-28 13:43:18 [facility] Susceptibl e to varicella (non-immun e), currently Susceptibl e to varicella (non-immun e), currently Disease Resolve d 2018-08 0-29 00:00: 00 2020-05-28 00:00:00 2020-05-28 13:43:16 [facility] Single liveborn Single liveborn Disease Resolve d 6-15 00:00: 00 2020-02-19 00:00:00 2020-02-19 16:25:36 [facility] 37 weeks gestation of 37 weeks gestation of Disease Resolve d 6-12 00:00: 00 2020-02-19 00:00:00 2020-02-19 16:25:38 [facility] Diarrhea during Diarrhea during Disease Resolve d 1-06 00:00: 00 2020-02-19 00:00:00 2020-02-19 16:25:43 [facility] Supervisio n of high-risk Supervisio n of high-risk Disease Resolve d 2018-08 0-28 00:00: 00 2020-02-19 00:00:00 2020-02-19 16:25:48 [facility] Tachycardi a, unspecifie d Tachycardi a, unspecifie d Disease Resolve d 2018-08 0-28 00:00: 00 2020-02-19 00:00:00 2020-02-19 16:25:45 [facility] Allergies, Adverse Reactions, Alerts Allergy Name Allergy Type Status Severity Reaction(s) Onset Date Inactive Date Treating Clinician Comments Source Amoxicil glenna Propensi ty to adverse reaction s Active Rash 03-05 00:00: 00 [facility] AMOXICIL GLENNA DRUG INGREDI Active High Rash 03-05 00:00: 00 [facility] N.KTani Montero Active Info Not Available 2017-08 00:00: 00 Elisa Seals Social History Social Habit Start Date Stop Date Quantity Comments Source ASSERTION 2023-01-13 00:00:00 [facility] Alcoholic beverage intake 2024-01-22 00:00:00 2024-01-22 00:00:00 0 /d [facility] History of Social function 2024-01-05 00:00:00 2024-01-05 00:00:00 [facility] Alcohol intake 2023-11-02 00:00:00 2023-11-02 00:00:00 0 /d [facility] Exposure to SARS-CoV-2 (event) 2022-12-20 00:00:00 2022-12-30 16:27:00 Not sure [facility] Tobacco use and exposure 2022-02-16 00:00:00 2022-02-16 00:00:00 Smokeless tobacco non-user [facility] Sex assigned at 2000 00:00:00 2000 00:00:00 [facility] Smoking Status Start Date Stop Date Source Never smoked tobacco [facility] Medications Ordered Medication Name Filled Medication Name Start Date Stop Date Current Medication? Ordering Clinician Indication Dosage Frequency Signature (SIG) Comments Components Source meclizine 12.5 mg tablet 2023-08 00:00: 00 07-10 05:59 :00 No [id number] 12.5mg Take 1 tablet by mouth 3 (three) times daily as needed for Dizziness or Nausea for up to 5 days. [facility] ketorolac (TORADOL) injection 30 mg 01-22 01:45: 00 01-22 01:03 :00 No [id number] 30mg [facility] clindamycin 300 mg capsule 01-21 00:00: 00 02-01 04:59 :00 No [id number] 300mg Take 1 capsule by mouth 4 (four) times daily for 10 days. [facility] SERTraline 100 mg tablet 01-04 00:00: 00 Yes [id number] 200mg Take 2 tablets by mouth in the morning. [facility] fluconazole (DIFLUCAN) 150 mg tablet 01-04 00:00: 00 Yes [id number] Take 1 tab today and repeat 1 in 72 hrs [facility] SERTRALINE 100 mg tablet - 00:00: 00 01-04 00:00 :00 No [id number] 109 100mg TAKE 1 TABLET BY MOUTH EVERY DAY IN THE MORNING [facility] famotidine (PEPCID AC) tablet 20 mg 2-10 02:00: 00 Yes 20mg 20 mg, Oral, BID, First dose on Wed09/17/23 at 2000, Until Discontinu ed, Routine [facility] proMETHazin e (PHENERGAN) tablet 25 mg 09-17 06:45: 00 09-17 06:35 :00 No 25mg 25 mg, Oral, ONCE, 1 dose, On Wed09/17/23 at 0045, Routine [facility] SERTraline (ZOLOFT) tablet 100 mg 09-17 05:45: 00 Yes 100mg 100 mg, Oral, DAILY, First dose (after last modificati on) on Wed09/16/23 at 2345, Until Discontinu ed, Routine [facility] ihn879-vdoo fum-folic () 27 mg iron- 1 mg folic tablet 09-17 00:00: 00 11-01 00:00 :00 No [id number] 1{tbl} Take 1 tablet by mouth in the morning. [facility] docusate 100 mg capsule 09-17 00:00: 00 11-01 00:00 :00 No [id number] 200mg Take 2 capsules by mouth once daily as needed for Constipati on. [facility] ferrous sulfate 325 mg (65 mg iron) tablet 09-17 00:00: 00 11-01 00:00 :00 No [id number] 325mg Take 1 tablet by mouth in the morning. [facility] ibuprofen 600 mg tablet 09-17 00:00: 00 11-01 00:00 :00 No [id number] 600mg Take 1 tablet by mouth every 6 (six) hours as needed (Pain). Take with food or milk. [facility] HYDROcodone -acetaminop hen 5-325 mg tablet 09-17 00:00: 00 09-25 05:59 :00 No [id number] 1{tbl} Take 1 tablet by mouth every 6 (six) hours as needed (Pain scale above 4) for up to 7 days. Do not exceed 3 grams of acetaminop hen in 24 hours. Indication s: acute pain [facility] ibuprofen (IBU) tablet 800 mg 09-16 17:45: 00 Yes 800mg 800 mg, Oral, Q8HA1, First dose on Janeth 09/16/23 at 1145, Until Discontinu ed, Routine [facility] acetaminoph en (TYLENOL) tablet 1,000 mg 09-16 16:00: 00 Yes 1000mg 1,000 mg, Oral, Q8H, First dose on Janeth 09/16/23 at 1000, Until Discontinu ed, Routine [facility] rho(D) immune globulin (RHOGAM) syringe 300 mcg 09-16 15:49: 41 Yes 300ug 300 mcg, Intramuscu lar, ONCE, For 1 dose, Conditiona l, Routine [facility] oxyCODONE immediate release tablet 5 mg 09-16 15:49: 37 Yes 5mg 5 mg, Oral, Q6HPRN, Starting on Janeth 09/16/23 at 0949, Until Discontinu ed, Routine, Pain (scale 7-10)
F aculty member approving Restricted medication : BHARTI DIAZ [facility] diphenhydrA MINE (BENADRYL) injection 25 mg 09-16 15:49: 37 Yes 25mg 25 mg, Slow IV Push, Q6HPRN, Starting on Janeth 09/16/23 at 0949, Until Discontinu ed, Routine, Itching [facility] diphenhydrA MINE (BENADRYL) tablet 25 mg 09-16 15:49: 37 Yes 25mg 25 mg, Oral, Q6HPRN, Starting on Janeth 09/16/23 at 0949, Until Discontinu ed, Routine, Sleep, Itching [facility] ondansetron (ZOFRAN (PF)) injection 4 mg 09-16 15:49: 37 Yes 4mg 4 mg, Slow IV Push, Q8HPRN, Starting on Janeth 09/16/23 at 0949, Until Discontinu ed, Routine, Nausea and Vomiting (N/V) [facility] bisacodyL (DULCOLAX) suppository 10 mg 09-16 15:49: 37 Yes 10mg 10 mg, Rectal, QDAILYPRN, Starting on Wed09/16/23 at 0949, Until Discontinu ed, Routine, Constipati on [facility] simethicone (GAS RELIEF (SIMETHICON E)) chewable tablet 160 mg 09-16 15:49: 37 Yes 160mg 160 mg, Oral, PC+HSPRN, Starting on Wed09/16/23 at 0949, Until Discontinu ed, Routine, Gas [facility] docusate (COLACE) capsule 200 mg 09-16 15:49: 37 Yes 200mg 200 mg, Oral, QDAILYPRN, Starting on Wed09/16/23 at 0949, Until Discontinu ed, Routine, Constipati on [facility] magnesium hydroxide (MILK OF MAGNESIA) 400 mg/5 mL suspension 30 mL 09-16 15:49: 37 Yes 30mL 30 mL, Oral, QDAILYPRN, Starting on Wed09/16/23 at 0949, Until Discontinu ed, Routine, Constipati on [facility] lactated ringers IV infusion 1,000 mL 09-16 15:49: 37 Yes 1000mL at 125 mL/hr, 1,000 mL, IV Infusion, PRN, 1 dose, Starting on Wed09/16/23 at 0949, Until Discontinu ed, Routine [facility] ketorolac (TORADOL) injection 30 mg 2023-09-16 13:45: 00 09-16 13:21 :00 No 30mg 30 mg, Slow IV Push, ONCE, 1 dose, On Janeth 09/16/23 at 0745, Routine, PACU [facility] acetaminoph en (OFIRMEV) IV piggyback 1,000 mg 09-16 13:15: 00 09-16 13:35 :00 No 1000mg 1,000 mg, IV Piggyback, at 400 mL/hr Administer over 15 Minutes, ONCE, 1 dose, On Janeth 09/16/23 at 0715, Routine, PACU
In dication: Strict NPO and unable to tolerate oral medication s
Is the patient strict NPO and unable to tolerate oral medication s? Yes [facility] morpHINE (2 mg/mL) injection 4 mg 09-16 13:08: 08 Yes 4mg 4 mg, Slow IV Push, Q5MIN PRN, 2 doses, Starting on Janeth 09/16/23 at 0708, Until Discontinu ed, Routine, Pain (scale 7-10), PACU [facility] FENTanyl PF (SUBLIMAZE (PF)) injection 25 mcg 09-16 13:08: 08 Yes 25ug 25 mcg, Slow IV Push, Q5MIN PRN, 4 doses, Starting on Janeth 09/16/23 at 0708, Until Discontinu ed, Routine, Pain (scale 4-6), PACU [facility] ondansetron (ZOFRAN (PF)) injection 4 mg 09-16 13:08: 08 09-16 15:13 :00 No 4mg 4 mg, Slow IV Push, PRN, 1 dose, Starting on Janeth 09/16/23 at 0708, Until Discontinu ed, Routine, Nausea and Vomiting (N/V), PACU [facility] morpHINE PF (DURAMORPH- PF) injection 09-16 12:45: 00 09-16 13:04 :50 No Epidural, ONCE INTRA PROCEDURE, Starting on Janeth 09/16/23 at 0645, Until Janeth 09/16/23 at 0704, Routine, Intra-op [facility] phenylephri ne (VAZCULEP) injection 09-16 12:38: 00 09-16 13:04 :50 No Intravenou s, ONCE INTRA PROCEDURE, Starting on Janeth 09/16/23 at 0638, Until Janeth 24 at 0704, Routine, [facility]-op [facility] FENTanyl PF (SUBLIMAZE (PF)) injection 09-16 12:24: 00 09-16 13:04 :50 No Epidural, ONCE INTRA PROCEDURE, Starting on Janeth 09/16/23 at 0624, Until Discontinu ed, Routine, Intra-op [facility] oxytocin (PITOCIN) 30 units in NS 500 mL IV infusion 09-16 12:17: 00 09-16 13:04 :50 No IV Infusion, CONTINUOUS PRN, Starting on Janeth 09/16/23 at 0617, Until Janeth 09/16/23 at 0704, Routine, Intra-op [facility] lidocaine-e pinephrine (XYLOCAINE W/EPINEPHRI NE) 2 %-1:200,000 injection 09-16 12:11: 00 09-16 13:04 :50 No Intravenou s, ONCE INTRA PROCEDURE, Starting on Janeth 09/16/23 at 0611, Until Discontinu ed, Routine, Intra-op [facility] lactated ringers IV infusion 09-16 11:55: 00 09-16 13:04 :50 No IV Infusion, CONTINUOUS PRN, Starting on Janeth 24 at 0555, Until Discontinu ed, Routine, Intra-op [facility] lactated ringers IV infusion 500 mL 09-16 08:00: 00 09-16 07:26 :29 No 500mL at 999 mL/hr, 500 mL, IV Infusion, ONCE, 1 dose, On Janeth 24 at 0200, Routine [facility] ropivacaine 0.2 % (NAROPIN (PF)) epidural infusion 09-16 07:50: 00 09-16 13:04 :50 No Epidural, CONTINUOUS PRN, Starting on Janeth 09/16/23 at 0150, Until Discontinu ed, Routine, Intra-op [facility] lidocaine-e pinephrine (XYLOCAINE W/EPINEPHRI NE) 1.5 %-1:200,000 injection 09-16 07:47: 00 09-16 13:04 :50 No Intraderma l, ONCE INTRA PROCEDURE, Starting on Janeth 09/16/23 at 0147, Until Discontinu ed, Routine, Intra-op [facility] sodium citrate-cit thanh acid (BICITRA) 500-334 mg/5 mL solution 30 mL 09-16 07:03: 24 09-16 07:26 :00 No 30mL 30 mL, Oral, PRE-PROCED URE ONCE, 1 dose, Starting on Janeth 09/16/23 at 0103, Until Janeth 09/16/23 at 0126, Routine, Surgery/Pr ocedure [facility] oxytocin (PITOCIN) 30 units in NS 500 mL IV infusion 09-15 22:09: 27 09-16 15:49 :40 No 2mU/min at 2-40 mL/hr, IV Infusion, TITRATE, Starting on Wed09/15/23 at 1609, Until Janeth 09/16/23 at 0949[id number] 09-15 22:06: 08 09-16 15:49 :39 No 1000mL at 1-125 mL/hr, IV Infusion, TITRATE, Starting on Wed09/15/23 at 1606, Until Janeth 09/16/23 at 0949, Routine [facility] proCHLORper azine (COMPAZINE) tablet 10 mg 09-15 20:47: 00 09-15 20:58 :00 No 10mg 10 mg, Oral, ONCE, 1 dose, On Wed09/15/23 at 1500, RANDELL [facility] proCHLORper azine (COMPAZINE) tablet 10 mg 09-11 02:30: 00 09-11 01:20 :00 No 10mg 10 mg, Oral, ONCE, 1 dose, On Wed09/10/23 at 2030, Routine [facility] metoclopram kee HCl (REGLAN) 10 mg in NaCl 0.9% (NS) piggyback 09-11 00:00: 00 Yes 10mg 10 mg, IV Piggyback, Q6H, First dose on Wed09/10/23 at 1800, Until Discontinu ed, 50 mL [facility] diphenhydrA MINE (BENADRYL) injection 25 mg 09-10 23:30: 00 09-11 00:43 :00 No 25mg 25 mg, Intravenou s, ONCE, 1 dose, On Wed09/10/23 at 1730, Routine [facility] lactated ringers IV infusion 500 mL 09-10 23:30: 09-10 22:59 :00 No 500mL at 999 mL/hr, 500 mL, Intravenou s, ONCE, 1 dose, On Wed09/10/23 at 1730, Routine [facility] ferrous sulfate 325 mg (65 mg iron) tablet 09-10 00:00: 00 09-17 00:00 :00 No [id number] 325mg Take 1 tablet by mouth in the morning and 1 tablet in the evening. [facility] ascorbic acid, vitamin C, 500 mg tablet 09-10 00:00: 00 09-17 00:00 :00 No [id number] 500mg Take 1 tablet by mouth in the morning and 1 tablet at noon and 1 tablet in the evening. [facility] fluconazole (DIFLUCAN) 150 mg tablet 08-11 00:00: 00 08-12 05:59 :00 No [id number] 150mg Take 1 tablet by mouth once now for 1 dose. [facility] ondansetron (ZOFRAN) tablet 4 mg 2022-08 01:30: 00 08-03 01:04 :00 No 4mg 4 mg, Oral, ONCE, 1 dose, On Wed08/02/23 at 1930, Routine [facility] Iron Fum & P-FA-Vit B & C No.9 (INTEGRA PLUS) 125 mg iron- 1 mg Cap 2022-08 2-05 00:00: 00 09-17 00:00 :00 No [id number] 1{capsu le} Take 1 capsule by mouth in the morning. [facility] fluconazole (DIFLUCAN) 150 mg tablet 05-05 00:00: 00 05-06 04:59 :00 No [id number] 150mg Take 1 tablet by mouth once now for 1 dose. [facility] fluconazole (DIFLUCAN) 150 mg tablet 04-22 00:00: 00 04-23 04:59 :00 No [id number] 150mg Take 1 tablet by mouth once now for 1 dose. [facility] cephALEXin (KEFLEX) 500 mg capsule 04-19 00:00: 00 04-30 04:59 :00 No [id number] 500mg Take 1 capsule by mouth 4 (four) times daily for 10 days. [facility] SERTraline 100 mg tablet 04-08 00:00: 00 11-28 00:00 :00 No [id number] 109 100mg Take 1 tablet by mouth in the morning. [facility] ondansetron 4 mg disintegrat ing tablet 04-08 00:00: 00 08-11 00:00 :00 No [id number] 4mg Take 1 tablet by mouth every 8 (eight) hours as needed for Nausea and Vomiting (N/V). [facility] aspirin 81 mg EC tablet 03-24 00:00: 00 09-17 00:00 :00 No [id number] 9100 81mg Take 1 tablet by mouth in the morning. [facility] ondansetron 4 mg disintegrat ing tablet 03-24 00:00: 00 04-08 00:00 :00 No [id number] 4mg Take 1 tablet by mouth every 8 (eight) hours as needed for Nausea and Vomiting (N/V). [facility] cephALEXin (KEFLEX) 500 mg capsule 03-15 00:00: 00 03-26 04:59 :00 No [id number] 500mg Take 1 capsule by mouth 4 (four) times daily for 10 days. [facility] proMETHazin e 25 mg tablet 03-11 00:00: 00 09-17 00:00 :00 No [id number] 25mg Take 1 tablet by mouth every 4 (four) hours as needed for Nausea and Vomiting (N/V). [facility] ondansetron (ZOFRAN-ODT ) disintegrat ing tablet 4 mg 03-02 02:15: 00 03-02 01:17 :00 No 4mg 4 mg, Oral, ONCE, 1 dose, On Wed03/01/23 at 2115, Routine [facility] SERTraline (ZOLOFT) tablet 50 mg 03-02 01:30: 00 03-02 01:17 :00 No 50mg 50 mg, Oral, ONCE, 1 dose, On Wed03/01/23 at 2030, RANDELL [facility] SERTraline (ZOLOFT) 50 mg tablet 03-02 00:00: 00 04-08 00:00 :00 No [id number] 109 50mg Take 1 tablet by mouth in the morning. [facility] ondansetron 4 mg disintegrat ing tablet 03-01 00:00: 00 03-24 00:00 :00 No [id number] 4mg Take 1 tablet by mouth every 8 (eight) hours as needed for Nausea and Vomiting (N/V). [facility] SERTraline 50 mg tablet 03-01 00:00: 00 03-01 00:00 :00 No [id number] 50mg Take 1 tablet by mouth in the morning. [facility] fluconazole (DIFLUCAN) 150 mg tablet 12-30 00:00: 00 12-31 04:59 :00 No [id number] 150mg Take 1 tablet by mouth once now for 1 dose. [facility] SERTraline (ZOLOFT) 50 mg tablet 5- 00:00: 00 03-02 00:00 :00 No [id number] 50mg Take 1 tablet by mouth in the morning. [facility] SERTraline (ZOLOFT) 50 mg tablet 2021-08 2- 00:00: 00 12-25 00:00 :00 No [id number] 50mg Take 1 tablet by mouth in the morning. [facility] busPIRone 10 mg tablet 2021-08- 00:00: 00 09-07 05:59 :00 No [id number] 10mg Take 1 tablet by mouth 2 (two) times daily as needed (anxiety) for up to 30 days. [facility] azithromyci n 250 mg tablet 2021-08 0-10 00:00: 00 12-30 00:00 :00 No [id number] 250mg Z-Chikis = 500 mg day 1, then 250 mg days 2 to 5. [facility] SERTraline (ZOLOFT) 50 mg tablet 9- 00:00: 00 08-07 00:00 :00 No [id number] 50mg Take 1 tablet by mouth in the morning. [facility] SERTraline (ZOLOFT) 50 mg tablet 7- 00:00: 00 Yes [id number] 50mg Take 1 tablet by mouth in the morning. [facility] busPIRone 10 mg tablet 7-11 00:00: 00 03-19 04:59 :00 No [id number] 10mg Take 1 tablet by mouth 2 (two) times daily as needed (anxiety) for up to 30 days. [facility] methylPREDN ISolone (MEDROL, CHIKIS,) 4 mg tablets 6-10 00:00: 00 02-11 00:00 :00 No [id number] Take by mouth SEE-INSTRU CTIONS. follow package directions [facility] fluconazole (DIFLUCAN) 150 mg tablet 5-06 00:00: 00 05-18 00:00 :00 No [id number] Take one pill now and repeat in 3 days if needed [facility] multivitami n ( VITAMIN) tablet 3-15 00:00: 00 02-11 00:00 :00 No [id number] 1{tbl} Take 1 tablet by mouth daily. [facility] multivitami n ( VITAMIN) tablet 3-15 00:00: 00 02-11 00:00 :00 No [id number] 1{tbl} Take 1 tablet by mouth daily. [facility] vitamin w/FA tablet 6-05 00:00: 00 02-11 00:00 :00 No [id number] 1{tbl} Take 1 tablet by mouth daily. [facility] vitamin w/FA tablet 01-11 00:00: 00 02-11 00:00 :00 No [id number] 1{tbl} Take 1 tablet by mouth daily. [facility] Cipro 2017- 2-20 00:00: 00 Yes Janette Sullivan 1 tab(s) Elisa Seals Immunizations Ordered Immunization Name Filled Immunization Name Date Status Comments Source HPV9 2023-11-02 00:00:00 Completed TDAP 2023-08-11 00:00:00 Completed TDAP 2020-11-08 00:00:00 Completed [facility] TDAP 2020-11-08 00:00:00 Completed [facility] TDAP 2020-11-08 00:00:00 Completed [facility] TDAP 2020-11-08 00:00:00 Completed [facility] TDAP 2020-11-08 00:00:00 Completed [facility] TDAP 2020-11-08 00:00:00 Completed [facility] TDAP 2020-11-08 00:00:00 Completed [facility] TDAP 2020-11-08 00:00:00 Completed [facility] TDAP 2020-11-08 00:00:00 Completed [facility] TDAP 2020-11-08 00:00:00 Completed [facility] TDAP 2020-11-08 00:00:00 Completed [facility] TDAP 2020-11-08 00:00:00 Completed [facility] TDAP 2020-11-08 00:00:00 Completed [facility] TDAP 2020-11-08 00:00:00 Completed [facility] TDAP 2020-11-08 00:00:00 Completed [facility] TDAP 2020-11-08 00:00:00 Completed [facility] TDAP 2020-11-08 00:00:00 Completed [facility] TDAP 2020-11-08 00:00:00 Completed [facility] TDAP 2020-11-08 00:00:00 Completed [facility] TDAP 2020-11-08 00:00:00 Completed [facility] TDAP 2020-11-08 00:00:00 Completed [facility] TDAP 2020-11-08 00:00:00 Completed [facility] TDAP 2020-11-08 00:00:00 Completed [facility] TDAP 2020-11-08 00:00:00 Completed [facility] TDAP 2020-11-08 00:00:00 Completed [facility] TDAP 2020-11-08 00:00:00 Completed [facility] TDAP 2020-11-08 00:00:00 Completed [facility] TDAP 2020-11-08 00:00:00 Completed [facility] TDAP 2020-11-08 00:00:00 Completed [facility] TDAP 2019-11-21 00:00:00 Completed [facility] TDAP 2019-11-21 00:00:00 Completed [facility] TDAP 2019-11-21 00:00:00 Completed [facility] TDAP 2019-11-21 00:00:00 Completed [facility] TDAP 2019-11-21 00:00:00 Completed [facility] TDAP 2019-11-21 00:00:00 Completed [facility] TDAP 2019-11-21 00:00:00 Completed [facility] TDAP 2019-11-21 00:00:00 Completed [facility] TDAP 2019-11-21 00:00:00 Completed [facility] TDAP 2019-11-21 00:00:00 Completed [facility] TDAP 2019-11-21 00:00:00 Completed [facility] TDAP 2019-11-21 00:00:00 Completed [facility] TDAP 2019-11-21 00:00:00 Completed [facility] TDAP 2019-11-21 00:00:00 Completed [facility] TDAP 2019-11-21 00:00:00 Completed [facility] TDAP 2019-11-21 00:00:00 Completed [facility] TDAP 2019-11-21 00:00:00 Completed [facility] TDAP 2019-11-21 00:00:00 Completed [facility] TDAP 2019-11-21 00:00:00 Completed [facility] TDAP 2019-11-21 00:00:00 Completed [facility] TDAP 2019-11-21 00:00:00 Completed [facility] TDAP 2019-11-21 00:00:00 Completed [facility] TDAP 2019-11-21 00:00:00 Completed [facility] TDAP 2019-11-21 00:00:00 Completed [facility] TDAP 2019-11-21 00:00:00 Completed [facility] TDAP 2019-11-21 00:00:00 Completed [facility] TDAP 2019-11-21 00:00:00 Completed [facility] TDAP 2019-11-21 00:00:00 Completed [facility] TDAP 2019-11-21 00:00:00 Completed [facility] Influenza Virus Vaccine Quad .5 mL IM 6+ MO 2017-05-04 00:00:00 Completed [facility] Influenza Virus Vaccine Quad .5 mL IM 6+ MO 2017-05-04 00:00:00 Completed [facility] Influenza Virus Vaccine Quad .5 mL IM 6+ MO 2017-05-04 00:00:00 Completed [facility] Influenza Virus Vaccine Quad .5 mL IM 6+ MO 2017-05-04 00:00:00 Completed [facility] Influenza Virus Vaccine Quad .5 mL IM 6+ MO 2017-05-04 00:00:00 Completed [facility] Influenza Virus Vaccine Quad .5 mL IM 6+ MO 2017-05-04 00:00:00 Completed [facility] Influenza Virus Vaccine Quad .5 mL IM 6+ MO 2017-05-04 00:00:00 Completed [facility] Influenza Virus Vaccine Quad .5 mL IM 6+ MO 2017-05-04 00:00:00 Completed [facility] Influenza Virus Vaccine Quad .5 mL IM 6+ MO 2017-05-04 00:00:00 Completed [facility] Influenza Virus Vaccine Quad .5 mL IM 6+ MO 2017-05-04 00:00:00 Completed [facility] Influenza Virus Vaccine Quad .5 mL IM 6+ MO 2017-05-04 00:00:00 Completed [facility] Influenza Virus Vaccine Quad .5 mL IM 6+ MO 2017-05-04 00:00:00 Completed [facility] Influenza Virus Vaccine Quad .5 mL IM 6+ MO 2017-05-04 00:00:00 Completed [facility] Influenza Virus Vaccine Quad .5 mL IM 6+ MO 2017-05-04 00:00:00 Completed [facility] Influenza Virus Vaccine Quad .5 mL IM 6+ MO 2017-05-04 00:00:00 Completed [facility] Influenza Virus Vaccine Quad .5 mL IM 6+ MO 2017-05-04 00:00:00 Completed [facility] Influenza Virus Vaccine Quad .5 mL IM 6+ MO 2017-05-04 00:00:00 Completed [facility] Influenza Virus Vaccine Quad .5 mL IM 6+ MO 2017-05-04 00:00:00 Completed [facility] Influenza Virus Vaccine Quad .5 mL IM 6+ MO (FLUZONE/FLULAVAL/FL UARIX) 2017-05-04 00:00:00 Completed [facility] Influenza Virus Vaccine Quad .5 mL IM 6+ MO (FLUZONE/FLULAVAL/FL UARIX) 2017-05-04 00:00:00 Completed [facility] Influenza Virus Vaccine Quad .5 mL IM 6+ MO (FLUZONE/FLULAVAL/FL UARIX) 2017-05-04 00:00:00 Completed HPV 2014-07-18 00:00:00 Completed [facility] HPV 2014-07-18 00:00:00 Completed [facility] HPV 2014-07-18 00:00:00 Completed [facility] HPV 2014-07-18 00:00:00 Completed [facility] HPV 2014-07-18 00:00:00 Completed [facility] HPV 2014-07-18 00:00:00 Completed [facility] HPV 2014-07-18 00:00:00 Completed [facility] HPV 2014-07-18 00:00:00 Completed [facility] HPV 2014-07-18 00:00:00 Completed [facility] HPV 2014-07-18 00:00:00 Completed [facility] HPV 2014-07-18 00:00:00 Completed [facility] HPV 2014-07-18 00:00:00 Completed [facility] HPV 2014-07-18 00:00:00 Completed [facility] HPV 2014-07-18 00:00:00 Completed [facility] HPV 2014-07-18 00:00:00 Completed [facility] HPV 2014-07-18 00:00:00 Completed [facility] HPV 2014-07-18 00:00:00 Completed [facility] HPV 2014-07-18 00:00:00 Completed [facility] HPV 2014-07-18 00:00:00 Completed [facility] HPV 2014-07-18 00:00:00 Completed [facility] HPV 2014-07-18 00:00:00 Completed HPV 2014-04-30 00:00:00 Completed [facility] HPV 2014-04-30 00:00:00 Completed [facility] HPV 2014-04-30 00:00:00 Completed [facility] HPV 2014-04-30 00:00:00 Completed [facility] HPV 2014-04-30 00:00:00 Completed [facility] HPV 2014-04-30 00:00:00 Completed [facility] HPV 2014-04-30 00:00:00 Completed [facility] HPV 2014-04-30 00:00:00 Completed [facility] HPV 2014-04-30 00:00:00 Completed [facility] HPV 2014-04-30 00:00:00 Completed [facility] HPV 2014-04-30 00:00:00 Completed [facility] HPV 2014-04-30 00:00:00 Completed [facility] HPV 2014-04-30 00:00:00 Completed [facility] HPV 2014-04-30 00:00:00 Completed [facility] HPV 2014-04-30 00:00:00 Completed [facility] HPV 2014-04-30 00:00:00 Completed [facility] HPV 2014-04-30 00:00:00 Completed [facility] HPV 2014-04-30 00:00:00 Completed [facility] HPV 2014-04-30 00:00:00 Completed [facility] HPV 2014-04-30 00:00:00 Completed [facility] HPV 2014-04-30 00:00:00 Completed TDAP 2013-03-13 00:00:00 Completed [facility] TDAP 2013-03-13 00:00:00 Completed [facility] TDAP 2013-03-13 00:00:00 Completed [facility] TDAP 2013-03-13 00:00:00 Completed [facility] TDAP 2013-03-13 00:00:00 Completed [facility] TDAP 2013-03-13 00:00:00 Completed [facility] TDAP 2013-03-13 00:00:00 Completed [facility] TDAP 2013-03-13 00:00:00 Completed [facility] TDAP 2013-03-13 00:00:00 Completed [facility] TDAP 2013-03-13 00:00:00 Completed [facility] TDAP 2013-03-13 00:00:00 Completed [facility] TDAP 2013-03-13 00:00:00 Completed [facility] TDAP 2013-03-13 00:00:00 Completed [facility] TDAP 2013-03-13 00:00:00 Completed [facility] TDAP 2013-03-13 00:00:00 Completed [facility] TDAP 2013-03-13 00:00:00 Completed [facility] TDAP 2013-03-13 00:00:00 Completed [facility] TDAP 2013-03-13 00:00:00 Completed [facility] TDAP 2013-03-13 00:00:00 Completed [facility] TDAP 2013-03-13 00:00:00 Completed [facility] TDAP 2013-03-13 00:00:00 Completed [facility] TDAP 2013-03-13 00:00:00 Completed [facility] TDAP 2013-03-13 00:00:00 Completed [facility] TDAP 2013-03-13 00:00:00 Completed [facility] TDAP 2013-03-13 00:00:00 Completed [facility] TDAP 2013-03-13 00:00:00 Completed [facility] TDAP 2013-03-13 00:00:00 Completed [facility] TDAP 2013-03-13 00:00:00 Completed [facility] TDAP 2013-03-13 00:00:00 Completed [facility] Meningococcal Polysaccharide (groups A, C, Y and W-135) conjugate vaccine (MCV4P) 2011-12-04 00:00:00 Completed [facility] TDAP 2011-12-04 00:00:00 Completed [facility] Varicella (varivax)(chicken pox) 2011-12-04 00:00:00 Completed [facility] Meningococcal Polysaccharide (groups A, C, Y and W-135) conjugate vaccine (MCV4P) 2011-12-04 00:00:00 Completed [facility] TDAP 2011-12-04 00:00:00 Completed [facility] Varicella (varivax)(chicken pox) 2011-12-04 00:00:00 Completed [facility] Meningococcal Polysaccharide (groups A, C, Y and W-135) conjugate vaccine (MCV4P) 2011-12-04 00:00:00 Completed [facility] TDAP 2011-12-04 00:00:00 Completed [facility] Varicella (varivax)(chicken pox) 2011-12-04 00:00:00 Completed [facility] Meningococcal Polysaccharide (groups A, C, Y and W-135) conjugate vaccine (MCV4P) 2011-12-04 00:00:00 Completed [facility] TDAP 2011-12-04 00:00:00 Completed [facility] Varicella (varivax)(chicken pox) 2011-12-04 00:00:00 Completed [facility] Meningococcal Polysaccharide (groups A, C, Y and W-135) conjugate vaccine (MCV4P) 2011-12-04 00:00:00 Completed [facility] TDAP 2011-12-04 00:00:00 Completed [facility] Varicella (varivax)(chicken pox) 2011-12-04 00:00:00 Completed [facility] Meningococcal Polysaccharide (groups A, C, Y and W-135) conjugate vaccine (MCV4P) 2011-12-04 00:00:00 Completed [facility] TDAP 2011-12-04 00:00:00 Completed [facility] Varicella (varivax)(chicken pox) 2011-12-04 00:00:00 Completed [facility] Meningococcal Polysaccharide (groups A, C, Y and W-135) conjugate vaccine (MCV4P) 2011-12-04 [facility] [facility] Varicella (varivax)(chicken pox) 2011-12-04 00:00:00 Completed [facility] Meningococcal Polysaccharide (groups A, C, Y and W-135) conjugate vaccine (MCV4P) 2011-12-04 00:00:00 Completed [facility] TDAP 2011-12-04 00:00:00 Completed [facility] Varicella (varivax)(chicken pox) 2011-12-04 00:00:00 Completed [facility] Meningococcal Polysaccharide (groups A, C, Y and W-135) conjugate vaccine (MCV4P) 2011-12-04 00:00:00 Completed [facility] TDAP 2011-12-04 00:00:00 Completed [facility] Varicella (varivax)(chicken pox) 2011-12-04 00:00:00 Completed [facility] Meningococcal Polysaccharide (groups A, C, Y and W-135) conjugate vaccine (MCV4P) 2011-12-04 00:00:00 Completed [facility] TDAP 2011-12-04 00:00:00 Completed [facility] Varicella (varivax)(chicken pox) 2011-12-04 00:00:00 Completed [facility] Meningococcal Polysaccharide (groups A, C, Y and W-135) conjugate vaccine (MCV4P) 2011-12-04 00:00:00 Completed [facility] TDAP 2011-12-04 00:00:00 Completed [facility] Varicella (varivax)(chicken pox) 2011-12-04 00:00:00 Completed [facility] Meningococcal Polysaccharide (groups A, C, Y and W-135) conjugate vaccine (MCV4P) 2011-12-04 00:00:00 Completed [facility] TDAP 2011-12-04 00:00:00 Completed [facility] Varicella (varivax)(chicken pox) 2011-12-04 00:00:00 Completed [facility] Meningococcal Polysaccharide (groups A, C, Y and W-135) conjugate vaccine (MCV4P) 2011-12-04 00:00:00 Completed [facility] TDAP 2011-12-04 00:00:00 Completed [facility] Varicella (varivax)(chicken pox) 2011-12-04 00:00:00 Completed [facility] Meningococcal Polysaccharide (groups A, C, Y and W-135) conjugate vaccine (MCV4P) 2011-12-04 00:00:00 Completed [facility] TDAP 2011-12-04 00:00:00 Completed [facility] Varicella (varivax)(chicken pox) 2011-12-04 00:00:00 Completed [facility] Meningococcal Polysaccharide (groups A, C, Y and W-135) conjugate vaccine (MCV4P) 2011-12-04 00:00:00 Completed [facility] TDAP 2011-12-04 00:00:00 Completed [facility] Varicella (varivax)(chicken pox) 2011-12-04 00:00:00 Completed [facility] Meningococcal Polysaccharide (groups A, C, Y and W-135) conjugate vaccine (MCV4P) 2011-12-04 00:00:00 Completed [facility] TDAP 2011-12-04 00:00:00 Completed [facility] Varicella (varivax)(chicken pox) 2011-12-04 00:00:00 Completed [facility] Meningococcal Polysaccharide (groups A, C, Y and W-135) conjugate vaccine (MCV4P) 2011-12-04 00:00:00 Completed [facility] TDAP 2011-12-04 00:00:00 Completed [facility] Varicella (varivax)(chicken pox) 2011-12-04 00:00:00 Completed [facility] Meningococcal Polysaccharide (groups A, C, Y and W-135) conjugate vaccine (MCV4P) 2011-12-04 00:00:00 Completed [facility] TDAP 2011-12-04 00:00:00 Completed [facility] Varicella (varivax)(chicken pox) 2011-12-04 00:00:00 Completed [facility] Meningococcal Polysaccharide (groups A, C, Y and W-135) conjugate vaccine (MCV4P) 2011-12-04 00:00:00 Completed [facility] TDAP 2011-12-04 00:00:00 Completed [facility] Varicella (varivax)(chicken pox) 2011-12-04 00:00:00 Completed [facility] Meningococcal Polysaccharide (groups A, C, Y and W-135) conjugate vaccine (MCV4P) 2011-12-04 00:00:00 Completed [facility] TDAP 2011-12-04 00:00:00 Completed [facility] Varicella (varivax)(chicken pox) 2011-12-04 00:00:00 Completed [facility] Meningococcal Polysaccharide (groups A, C, Y and W-135) conjugate vaccine (MCV4P) 2011-12-04 00:00:00 Completed TDAP 2011-12-04 00:00:00 Completed Varicella (varivax)(chicken pox) 2011-12-04 00:00:00 Completed DTaP, Unspecified Formulation 2003-04-02 00:00:00 Completed [facility] MMR 2003-04-02 00:00:00 Completed [facility] IPV 2003-04-02 00:00:00 Completed [facility] DTaP, Unspecified Formulation 2003-04-02 00:00:00 Completed [facility] MMR 2003-04-02 00:00:00 Completed [facility] IPV 2003-04-02 00:00:00 Completed [facility] DTaP, Unspecified Formulation 2003-04-02 00:00:00 Completed [facility] MMR 2003-04-02 00:00:00 Completed [facility] IPV 2003-04-02 00:00:00 Completed [facility] DTaP, Unspecified Formulation 2003-04-02 00:00:00 Completed [facility] MMR 2003-04-02 00:00:00 Completed [facility] IPV 2003-04-02 00:00:00 Completed [facility] DTaP, Unspecified Formulation 2003-04-02 00:00:00 Completed [facility] MMR 2003-04-02 00:00:00 Completed [facility] IPV 2003-04-02 00:00:00 Completed [facility] DTaP, Unspecified Formulation 2003-04-02 00:00:00 Completed [facility] MMR 2003-04-02 00:00:00 Completed [facility] IPV 2003-04-02 00:00:00 Completed [facility] DTaP, Unspecified Formulation 2003-04-02 00:00:00 Completed [facility] MMR 2003-04-02 00:00:00 Completed [facility] IPV 2003-04-02 00:00:00 Completed [facility] DTaP, Unspecified Formulation 2003-04-02 00:00:00 Completed [facility] MMR 2003-04-02 00:00:00 Completed [facility] IPV 2003-04-02 00:00:00 Completed [facility] DTaP, Unspecified Formulation 2003-04-02 00:00:00 Completed [facility] MMR 2003-04-02 00:00:00 Completed [facility] IPV 2003-04-02 00:00:00 Completed [facility] DTaP, Unspecified Formulation 2003-04-02 00:00:00 Completed [facility] MMR 2003-04-02 00:00:00 Completed [facility] IPV 2003-04-02 00:00:00 Completed [facility] DTaP, Unspecified Formulation 2003-04-02 00:00:00 Completed [facility] MMR 2003-04-02 00:00:00 Completed [facility] IPV 2003-04-02 00:00:00 Completed [facility] DTaP, Unspecified Formulation 2003-04-02 00:00:00 Completed [facility] MMR 2003-04-02 00:00:00 Completed [facility] IPV 2003-04-02 00:00:00 Completed [facility] DTaP, Unspecified Formulation 2003-04-02 00:00:00 Completed [facility] MMR 2003-04-02 00:00:00 Completed [facility] IPV 2003-04-02 00:00:00 Completed [facility] DTaP, Unspecified Formulation 2003-04-02 00:00:00 Completed [facility] MMR 2003-04-02 00:00:00 Completed [facility] IPV 2003-04-02 00:00:00 Completed [facility] DTaP, Unspecified Formulation 2003-04-02 00:00:00 Completed [facility] MMR 2003-04-02 00:00:00 Completed [facility] IPV 2003-04-02 00:00:00 Completed [facility] DTaP, Unspecified Formulation 2003-04-02 00:00:00 Completed [facility] MMR 2003-04-02 00:00:00 Completed [facility] IPV 2003-04-02 00:00:00 Completed [facility] DTaP, Unspecified Formulation 2003-04-02 00:00:00 Completed [facility] MMR 2003-04-02 00:00:00 Completed [facility] IPV 2003-04-02 00:00:00 Completed [facility] DTaP, Unspecified Formulation 2003-04-02 00:00:00 Completed [facility] MMR 2003-04-02 00:00:00 Completed [facility] IPV 2003-04-02 00:00:00 Completed [facility] DTaP, Unspecified Formulation 2003-04-02 00:00:00 Completed [facility] MMR 2003-04-02 00:00:00 Completed [facility] IPV 2003-04-02 00:00:00 Completed [facility] DTaP, Unspecified Formulation 2003-04-02 00:00:00 Completed [facility] MMR 2003-04-02 00:00:00 Completed [facility] IPV 2003-04-02 00:00:00 Completed [facility] DTaP, Unspecified Formulation 2003-04-02 00:00:00 Completed MMR 2003-04-02 00:00:00 Completed IPV 2003-04-02 00:00:00 Completed DTaP, Unspecified Formulation 2000-11-04 00:00:00 Completed [facility] DTaP, Unspecified Formulation 2000-11-04 00:00:00 Completed [facility] DTaP, Unspecified Formulation 2000-11-04 00:00:00 Completed [facility] DTaP, Unspecified Formulation 2000-11-04 00:00:00 Completed [facility] DTaP, Unspecified Formulation 2000-11-04 00:00:00 Completed [facility] DTaP, Unspecified Formulation 2000-11-04 00:00:00 Completed [facility] DTaP, Unspecified Formulation 2000-11-04 00:00:00 Completed [facility] DTaP, Unspecified Formulation 2000-11-04 00:00:00 Completed [facility] DTaP, Unspecified Formulation 2000-11-04 00:00:00 Completed [facility] DTaP, Unspecified Formulation 2000-11-04 00:00:00 Completed [facility] DTaP, Unspecified Formulation 2000-11-04 00:00:00 Completed [facility] DTaP, Unspecified Formulation 2000-11-04 00:00:00 Completed [facility] DTaP, Unspecified Formulation 2000-11-04 00:00:00 Completed [facility] DTaP, Unspecified Formulation 2000-11-04 00:00:00 Completed [facility] DTaP, Unspecified Formulation 2000-11-04 00:00:00 Completed [facility] DTaP, Unspecified Formulation 2000-11-04 00:00:00 Completed [facility] DTaP, Unspecified Formulation 2000-11-04 00:00:00 Completed [facility] DTaP, Unspecified Formulation 2000-11-04 00:00:00 Completed [facility] DTaP, Unspecified Formulation 2000-11-04 00:00:00 Completed [facility] DTaP, Unspecified Formulation 2000-11-04 00:00:00 Completed [facility] DTaP, Unspecified Formulation 2000-11-04 00:00:00 Completed Haemophilus influenzae type b vaccine, conjugate unspecified formulation 2000-06-09 00:00:00 Completed [facility] MMR 2000-06-09 00:00:00 Completed [facility] Haemophilus influenzae type b vaccine, conjugate unspecified formulation 2000-06-09 00:00:00 Completed [facility] MMR 2000-06-09 00:00:00 Completed [facility] Haemophilus influenzae type b vaccine, conjugate unspecified formulation 2000-06-09 00:00:00 Completed [facility] MMR 2000-06-09 00:00:00 Completed [facility] Haemophilus influenzae type b vaccine, conjugate unspecified formulation 2000-06-09 00:00:00 Completed [facility] MMR 2000-06-09 00:00:00 Completed [facility] Haemophilus influenzae type b vaccine, conjugate unspecified formulation 2000-06-09 00:00:00 Completed [facility] MMR 2000-06-09 00:00:00 Completed [facility] Haemophilus influenzae type b vaccine, conjugate unspecified formulation 2000-06-09 00:00:00 Completed [facility] MMR 2000-06-09 00:00:00 Completed [facility] Haemophilus influenzae type b vaccine, conjugate unspecified formulation 2000-06-09 00:00:00 Completed [facility] MMR 2000-06-09 00:00:00 Completed [facility] Haemophilus influenzae type b vaccine, conjugate unspecified formulation 2000-06-09 00:00:00 Completed [facility] MMR 2000-06-09 00:00:00 Completed [facility] Haemophilus influenzae type b vaccine, conjugate unspecified formulation 2000-06-09 00:00:00 Completed [facility] MMR 2000-06-09 00:00:00 Completed [facility] Haemophilus influenzae type b vaccine, conjugate unspecified formulation 2000-06-09 00:00:00 Completed [facility] MMR 2000-06-09 00:00:00 Completed [facility] Haemophilus influenzae type b vaccine, conjugate unspecified formulation 2000-06-09 00:00:00 Completed [facility] MMR 2000-06-09 00:00:00 Completed [facility] Haemophilus influenzae type b vaccine, conjugate unspecified formulation 2000-06-09 00:00:00 Completed [facility] MMR 2000-06-09 00:00:00 Completed [facility] Haemophilus influenzae type b vaccine, conjugate unspecified formulation 2000-06-09 00:00:00 Completed [facility] MMR 2000-06-09 00:00:00 Completed [facility] Haemophilus influenzae type b vaccine, conjugate unspecified formulation 2000-06-09 00:00:00 Completed [facility] MMR 2000-06-09 00:00:00 Completed [facility] Haemophilus influenzae type b vaccine, conjugate unspecified formulation 2000-06-09 00:00:00 Completed [facility] MMR 2000-06-09 00:00:00 Completed [facility] Haemophilus influenzae type b vaccine, conjugate unspecified formulation 2000-06-09 00:00:00 Completed [facility] MMR 2000-06-09 00:00:00 Completed [facility] Haemophilus influenzae type b vaccine, conjugate unspecified formulation 2000-06-09 00:00:00 Completed [facility] MMR 2000-06-09 00:00:00 Completed [facility] Haemophilus influenzae type b vaccine, conjugate unspecified formulation 2000-06-09 00:00:00 Completed [facility] MMR 2000-06-09 00:00:00 Completed [facility] Haemophilus influenzae type b vaccine, conjugate unspecified formulation 2000-06-09 00:00:00 Completed [facility] MMR 2000-06-09 00:00:00 Completed [facility] Haemophilus influenzae type b vaccine, conjugate unspecified formulation 2000-06-09 00:00:00 Completed [facility] MMR 2000-06-09 00:00:00 Completed [facility] Haemophilus influenzae type b vaccine, conjugate unspecified formulation 2000-06-09 00:00:00 Completed MMR 2000-06-09 00:00:00 Completed IPV 2000-03-23 00:00:00 Completed [facility] Varicella (varivax)(chicken pox) 2000-03-23 00:00:00 Completed [facility] IPV 2000-03-23 00:00:00 Completed [facility] Varicella (varivax)(chicken pox) 2000-03-23 00:00:00 Completed [facility] IPV 2000-03-23 00:00:00 Completed [facility] Varicella (varivax)(chicken pox) 2000-03-23 00:00:00 Completed [facility] IPV 2000-03-23 00:00:00 Completed [facility] Varicella (varivax)(chicken pox) 2000-03-23 00:00:00 Completed [facility] IPV 2000-03-23 00:00:00 Completed [facility] Varicella (varivax)(chicken pox) 2000-03-23 00:00:00 Completed [facility] IPV 2000-03-23 00:00:00 Completed [facility] Varicella (varivax)(chicken pox) 2000-03-23 00:00:00 Completed [facility] IPV 2000-03-23 00:00:00 Completed [facility] Varicella (varivax)(chicken pox) 2000-03-23 00:00:00 Completed [facility] IPV 2000-03-23 00:00:00 Completed [facility] Varicella (varivax)(chicken pox) 2000-03-23 00:00:00 Completed [facility] IPV 2000-03-23 00:00:00 Completed [facility] Varicella (varivax)(chicken pox) 2000-03-23 00:00:00 Completed [facility] IPV 2000-03-23 00:00:00 Completed [facility] Varicella (varivax)(chicken pox) 2000-03-23 00:00:00 Completed [facility] IPV 2000-03-23 00:00:00 Completed [facility] Varicella (varivax)(chicken pox) 2000-03-23 00:00:00 Completed [facility] IPV 2000-03-23 00:00:00 Completed [facility] Varicella (varivax)(chicken pox) 2000-03-23 00:00:00 Completed [facility] IPV 2000-03-23 00:00:00 Completed [facility] Varicella (varivax)(chicken pox) 2000-03-23 00:00:00 Completed [facility] IPV 2000-03-23 00:00:00 Completed [facility] Varicella (varivax)(chicken pox) 2000-03-23 00:00:00 Completed [facility] IPV 2000-03-23 00:00:00 Completed [facility] Varicella (varivax)(chicken pox) 2000-03-23 00:00:00 Completed [facility] IPV 2000-03-23 00:00:00 Completed [facility] Varicella (varivax)(chicken pox) 2000-03-23 00:00:00 Completed [facility] IPV 2000-03-23 00:00:00 Completed [facility] Varicella (varivax)(chicken pox) 2000-03-23 00:00:00 Completed [facility] IPV 2000-03-23 00:00:00 Completed [facility] Varicella (varivax)(chicken pox) 2000-03-23 00:00:00 Completed [facility] IPV 2000-03-23 00:00:00 Completed [facility] Varicella (varivax)(chicken pox) 2000-03-23 00:00:00 Completed [facility] IPV 2000-03-23 00:00:00 Completed [facility] Varicella (varivax)(chicken pox) 2000-03-23 00:00:00 Completed [facility] IPV 2000-03-23 00:00:00 Completed Varicella (varivax)(chicken pox) 2000-03-23 00:00:00 Completed Hep B, Adol or Pedi Dosage 1999 00:00:00 Completed [facility] Hep B, Adol or Pedi Dosage 1999 00:00:00 Completed [facility] Hep B, Adol or Pedi Dosage 1999 00:00:00 Completed [facility] Hep B, Adol or Pedi Dosage 1999 00:00:00 Completed [facility] Hep B, Adol or Pedi Dosage 1999 00:00:00 Completed [facility] Hep B, Adol or Pedi Dosage 1999 00:00:00 Completed [facility] Hep B, Adol or Pedi Dosage 1999 00:00:00 Completed [facility] Hep B, Adol or Pedi Dosage 1999 00:00:00 Completed [facility] Hep B, Adol or Pedi Dosage 1999 00:00:00 Completed [facility] Hep B, Adol or Pedi Dosage 1999 00:00:00 Completed [facility] Hep B, Adol or Pedi Dosage 1999 00:00:00 Completed [facility] Hep B, Adol or Pedi Dosage 1999 00:00:00 Completed [facility] Hep B, Adol or Pedi Dosage 1999 00:00:00 Completed [facility] Hep B, Adol or Pedi Dosage 1999 00:00:00 Completed [facility] Hep B, Adol or Pedi Dosage 1999 00:00:00 Completed [facility] Hep B, Adol or Pedi Dosage 1999 00:00:00 Completed [facility] Hep B, Adol or Pedi Dosage 1999 00:00:00 Completed [facility] Hep B, Adol or Pedi Dosage 1999 00:00:00 Completed [facility] Hep B, Adol or Pedi Dosage 1999 00:00:00 Completed [facility] Hep B, Adol or Pedi Dosage 1999 00:00:00 Completed [facility] Hep B, Adol or Pedi Dosage 1999 00:00:00 Completed DTaP, Unspecified Formulation 1999 00:00:00 Completed [facility] Hep B, Adol or Pedi Dosage 1999 00:00:00 Completed [facility] Haemophilus influenzae type b vaccine, conjugate unspecified formulation 1999 00:00:00 Completed [facility] DTaP, Unspecified Formulation 1999 00:00:00 Completed [facility] Hep B, Adol or Pedi Dosage 1999 00:00:00 Completed [facility] Haemophilus influenzae type b vaccine, conjugate unspecified formulation 1999 00:00:00 Completed [facility] DTaP, Unspecified Formulation 1999 00:00:00 Completed [facility] Hep B, Adol or Pedi Dosage 1999 00:00:00 Completed [facility] Haemophilus influenzae type b vaccine, conjugate unspecified formulation 1999 00:00:00 Completed [facility] DTaP, Unspecified Formulation 1999 00:00:00 Completed [facility] Hep B, Adol or Pedi Dosage 1999 00:00:00 Completed [facility] Haemophilus influenzae type b vaccine, conjugate unspecified formulation 1999 00:00:00 Completed [facility] DTaP, Unspecified Formulation 1999 00:00:00 Completed [facility] Hep B, Adol or Pedi Dosage 1999 00:00:00 Completed [facility] Haemophilus influenzae type b vaccine, conjugate unspecified formulation 1999 00:00:00 Completed [facility] DTaP, Unspecified Formulation 1999 00:00:00 Completed [facility] Hep B, Adol or Pedi Dosage 1999 00:00:00 [facility] [facility] [facility] Haemophilus influenzae type b vaccine, conjugate unspecified formulation 1999 00:00:00 Completed [facility] DTaP, Unspecified Formulation 1999 00:00:00 Completed [facility] Hep B, Adol or Pedi Dosage 1999 00:00:00 Completed [facility] Haemophilus influenzae type b vaccine, conjugate unspecified formulation 1999 00:00:00 Completed [facility] DTaP, Unspecified Formulation 1999 00:00:00 Completed [facility] Hep B, Adol or Pedi Dosage 1999 00:00:00 Completed [facility] Haemophilus influenzae type b vaccine, conjugate unspecified formulation 1999 00:00:00 Completed [facility] DTaP, Unspecified Formulation 1999 00:00:00 Completed [facility] Hep B, Adol or Pedi Dosage 1999 00:00:00 Completed [facility] Haemophilus influenzae type b vaccine, conjugate unspecified formulation 1999 00:00:00 Completed [facility] DTaP, Unspecified Formulation 1999 00:00:00 Completed [facility] Hep B, Adol or Pedi Dosage 1999 00:00:00 Completed [facility] Haemophilus influenzae type b vaccine, conjugate unspecified formulation 1999 00:00:00 Completed [facility] DTaP, Unspecified Formulation 1999 00:00:00 Completed [facility] Hep B, Adol or Pedi Dosage 1999 00:00:00 Completed [facility] Haemophilus influenzae type b vaccine, conjugate unspecified formulation 1999 00:00:00 Completed [facility] DTaP, Unspecified Formulation 1999 00:00:00 Completed [facility] Hep B, Adol or Pedi Dosage 1999 00:00:00 Completed [facility] Haemophilus influenzae type b vaccine, conjugate unspecified formulation 1999 00:00:00 Completed [facility] DTaP, Unspecified Formulation 1999 00:00:00 Completed [facility] Hep B, Adol or Pedi Dosage 1999 00:00:00 Completed [facility] Haemophilus influenzae type b vaccine, conjugate unspecified formulation 1999 00:00:00 Completed [facility] DTaP, Unspecified Formulation 1999 00:00:00 Completed [facility] Hep B, Adol or Pedi Dosage 1999 00:00:00 Completed [facility] Haemophilus influenzae type b vaccine, conjugate unspecified formulation 1999 00:00:00 Completed [facility] DTaP, Unspecified Formulation 1999 00:00:00 Completed [facility] Hep B, Adol or Pedi Dosage 1999 00:00:00 Completed [facility] Haemophilus influenzae type b vaccine, conjugate unspecified formulation 1999 00:00:00 Completed [facility] DTaP, Unspecified Formulation 1999 00:00:00 Completed [facility] Hep B, Adol or Pedi Dosage 1999 00:00:00 Completed [facility] Haemophilus influenzae type b vaccine, conjugate unspecified formulation 1999 00:00:00 Completed [facility] DTaP, Unspecified Formulation 1999 00:00:00 Completed [facility] Hep B, Adol or Pedi Dosage 1999 00:00:00 Completed [facility] Haemophilus influenzae type b vaccine, conjugate unspecified formulation 1999 00:00:00 Completed [facility] DTaP, Unspecified Formulation 1999 00:00:00 Completed [facility] Hep B, Adol or Pedi Dosage 1999 00:00:00 Completed [facility] Haemophilus influenzae type b vaccine, conjugate unspecified formulation 1999 00:00:00 Completed [facility] DTaP, Unspecified Formulation 1999 00:00:00 Completed [facility] Hep B, Adol or Pedi Dosage 1999 00:00:00 Completed [facility] Haemophilus influenzae type b vaccine, conjugate unspecified formulation 1999 00:00:00 Completed [facility] DTaP, Unspecified Formulation 1999 00:00:00 Completed [facility] Hep B, Adol or Pedi Dosage 1999 00:00:00 Completed [facility] Haemophilus influenzae type b vaccine, conjugate unspecified formulation 1999 00:00:00 Completed [facility] DTaP, Unspecified Formulation 1999 00:00:00 Completed Hep B, Adol or Pedi Dosage 1999 00:00:00 Completed Haemophilus influenzae type b vaccine, conjugate unspecified formulation 1999 00:00:00 Completed DTaP, Unspecified Formulation 1999 00:00:00 Completed [facility] Haemophilus influenzae type b vaccine, conjugate unspecified formulation 1999 00:00:00 Completed [facility] IPV 1999 00:00:00 Completed [facility] DTaP, Unspecified Formulation 1999 00:00:00 Completed [facility] Haemophilus influenzae type b vaccine, conjugate unspecified formulation 1999 00:00:00 Completed [facility] IPV 1999 00:00:00 Completed [facility] DTaP, Unspecified Formulation 1999 00:00:00 Completed [facility] Haemophilus influenzae type b vaccine, conjugate unspecified formulation 1999 00:00:00 Completed [facility] IPV 1999 00:00:00 Completed [facility] DTaP, Unspecified Formulation 1999 00:00:00 Completed [facility] Haemophilus influenzae type b vaccine, conjugate unspecified formulation 1999 00:00:00 Completed [facility] IPV 1999 00:00:00 Completed [facility] DTaP, Unspecified Formulation 1999 00:00:00 Completed [facility] Haemophilus influenzae type b vaccine, conjugate unspecified formulation 1999 00:00:00 Completed [facility] IPV 1999 00:00:00 Completed [facility] DTaP, Unspecified Formulation 1999 00:00:00 Completed [facility] Haemophilus influenzae type b vaccine, conjugate unspecified formulation 1999 00:00:00 Completed [facility] IPV 1999 00:00:00 Completed [facility] DTaP, Unspecified Formulation 1999 00:00:00 Completed [facility] Haemophilus influenzae type b vaccine, conjugate unspecified formulation 1999 00:00:00 Completed [facility] IPV 1999 00:00:00 Completed [facility] DTaP, Unspecified Formulation 1999 00:00:00 Completed [facility] Haemophilus influenzae type b vaccine, conjugate unspecified formulation 1999 00:00:00 Completed [facility] IPV 1999 00:00:00 Completed [facility] DTaP, Unspecified Formulation 1999 00:00:00 Completed [facility] Haemophilus influenzae type b vaccine, conjugate unspecified formulation 1999 00:00:00 Completed [facility] IPV 1999 00:00:00 Completed [facility] DTaP, Unspecified Formulation 1999 00:00:00 Completed [facility] Haemophilus influenzae type b vaccine, conjugate unspecified formulation 1999 00:00:00 Completed [facility] IPV 1999 00:00:00 Completed [facility] DTaP, Unspecified Formulation 1999 00:00:00 Completed [facility] Haemophilus influenzae type b vaccine, conjugate unspecified formulation 1999 00:00:00 Completed [facility] IPV 1999 00:00:00 Completed [facility] DTaP, Unspecified Formulation 1999 00:00:00 Completed [facility] Haemophilus influenzae type b vaccine, conjugate unspecified formulation 1999 00:00:00 Completed [facility] IPV 1999 00:00:00 Completed [facility] DTaP, Unspecified Formulation 1999 00:00:00 Completed [facility] Haemophilus influenzae type b vaccine, conjugate unspecified formulation 1999 00:00:00 Completed [facility] IPV 1999 00:00:00 Completed [facility] DTaP, Unspecified Formulation 1999 00:00:00 Completed [facility] Haemophilus influenzae type b vaccine, conjugate unspecified formulation 1999 00:00:00 Completed [facility] IPV 1999 00:00:00 Completed [facility] DTaP, Unspecified Formulation 1999 00:00:00 Completed [facility] Haemophilus influenzae type b vaccine, conjugate unspecified formulation 1999 00:00:00 Completed [facility] IPV 1999 00:00:00 Completed [facility] DTaP, Unspecified Formulation 1999 00:00:00 Completed [facility] Haemophilus influenzae type b vaccine, conjugate unspecified formulation 1999 00:00:00 Completed [facility] IPV 1999 00:00:00 Completed [facility] DTaP, Unspecified Formulation 1999 00:00:00 Completed [facility] Haemophilus influenzae type b vaccine, conjugate unspecified formulation 1999 00:00:00 Completed [facility] IPV 1999 00:00:00 Completed [facility] DTaP, Unspecified Formulation 1999 00:00:00 Completed [facility] Haemophilus influenzae type b vaccine, conjugate unspecified formulation 1999 00:00:00 Completed [facility] IPV 1999 00:00:00 Completed [facility] DTaP, Unspecified Formulation 1999 00:00:00 Completed [facility] Haemophilus influenzae type b vaccine, conjugate unspecified formulation 1999 00:00:00 Completed [facility] IPV 1999 00:00:00 Completed [facility] DTaP, Unspecified Formulation 1999 00:00:00 Completed [facility] Haemophilus influenzae type b vaccine, conjugate unspecified formulation 1999 00:00:00 Completed [facility] IPV 1999 00:00:00 Completed [facility] DTaP, Unspecified Formulation 1999 00:00:00 Completed [facility] Haemophilus influenzae type b vaccine, conjugate unspecified formulation 1999 00:00:00 Completed IPV 1999 00:00:00 Completed IPV 1999 00:00:00 Completed [facility] IPV 1999 00:00:00 Completed [facility] IPV 1999 00:00:00 Completed [facility] IPV 1999 00:00:00 Completed [facility] IPV 1999 00:00:00 Completed [facility] IPV 1999 00:00:00 Completed [facility] IPV 1999 00:00:00 Completed [facility] IPV 1999 00:00:00 Completed [facility] IPV 1999 00:00:00 Completed [facility] IPV 1999 00:00:00 Completed [facility] IPV 1999 00:00:00 Completed [facility] IPV 1999 00:00:00 Completed [facility] IPV 1999 00:00:00 Completed [facility] IPV 1999 00:00:00 Completed [facility] IPV 1999 00:00:00 Completed [facility] IPV 1999 00:00:00 Completed [facility] IPV 1999 00:00:00 Completed [facility] IPV 1999 00:00:00 Completed [facility] IPV 1999 00:00:00 Completed [facility] IPV 1999 00:00:00 Completed [facility] IPV 1999 00:00:00 Completed TDAP Unknown Completed [facility] DTaP, Unspecified Formulation Unknown Completed [facility] Influenza Virus Vaccine Quad .5 mL IM 6+ MO (FLUZONE/FLULAVAL/FL UARIX) Unknown Completed [facility] Hep B, Adol or Pedi Dosage Unknown Completed [facility] Haemophilus influenzae type b vaccine, conjugate unspecified formulation Unknown Completed [facility] HPV Unknown Completed [facility] Meningococcal Polysaccharide (groups A, C, Y and W-135) conjugate vaccine (MCV4P) Unknown Completed [facility] MMR Unknown Completed [facility] IPV Unknown Completed [facility] Varicella (varivax)(chicken pox) Unknown Completed [facility] TDAP Unknown Completed [facility] DTaP, Unspecified Formulation Unknown Completed [facility] Influenza Virus Vaccine Quad .5 mL IM 6+ MO (FLUZONE/FLULAVAL/FL UARIX) Unknown Completed [facility] Hep B, Adol or Pedi Dosage Unknown Completed [facility] Haemophilus influenzae type b vaccine, conjugate unspecified formulation Unknown Completed [facility] HPV Unknown Completed [facility] Meningococcal Polysaccharide (groups A, C, Y and W-135) conjugate vaccine (MCV4P) Unknown Completed [facility] MMR Unknown Completed [facility] IPV Unknown Completed [facility] Varicella (varivax)(chicken pox) Unknown Completed [facility] TDAP Unknown Completed [facility] DTaP, Unspecified Formulation Unknown Completed [facility] Influenza Virus Vaccine Quad .5 mL IM 6+ MO (FLUZONE/FLULAVAL/FL UARIX) Unknown Completed [facility] Hep B, Adol or Pedi Dosage Unknown Completed [facility] Haemophilus influenzae type b vaccine, conjugate unspecified formulation Unknown Completed [facility] HPV Unknown Completed [facility] Meningococcal Polysaccharide (groups A, C, Y and W-135) conjugate vaccine (MCV4P) Unknown Completed [facility] MMR Unknown Completed [facility] IPV Unknown Completed [facility] Varicella (varivax)(chicken pox) Unknown Completed [facility] TDAP Unknown Completed [facility] DTaP, Unspecified Formulation Unknown Completed [facility] Influenza Virus Vaccine Quad .5 mL IM 6+ MO (FLUZONE/FLULAVAL/FL UARIX) Unknown Completed [facility] Hep B, Adol or Pedi Dosage Unknown Completed [facility] Haemophilus influenzae type b vaccine, conjugate unspecified formulation Unknown Completed [facility] HPV Unknown Completed [facility] Meningococcal Polysaccharide (groups A, C, Y and W-135) conjugate vaccine (MCV4P) Unknown Completed [facility] MMR Unknown Completed [facility] IPV Unknown Completed [facility] Varicella (varivax)(chicken pox) Unknown Completed [facility] DTaP, Unspecified Formulation Unknown Completed [facility] Influenza Virus Vaccine Quad .5 mL IM 6+ MO (FLUZONE/FLULAVAL/FL UARIX) Unknown Completed [facility] Hep B, Adol or Pedi Dosage Unknown Completed [facility] Haemophilus influenzae type b vaccine, conjugate unspecified formulation Unknown Completed [facility] HPV Unknown Completed [facility] Meningococcal Polysaccharide (groups A, C, Y and W-135) conjugate vaccine (MCV4P) Unknown Completed [facility] MMR Unknown Completed [facility] IPV Unknown Completed [facility] TDAP Unknown Completed [facility] Varicella (varivax)(chicken pox) Unknown Completed [facility] DTaP, Unspecified Formulation Unknown Completed [facility] Influenza Virus Vaccine Quad .5 mL IM 6+ MO (FLUZONE/FLULAVAL/FL UARIX) Unknown Completed [facility] Hep B, Adol or Pedi Dosage Unknown Completed [facility] Haemophilus influenzae type b vaccine, conjugate unspecified formulation Unknown Completed [facility] HPV Unknown Completed [facility] Meningococcal Polysaccharide (groups A, C, Y and W-135) conjugate vaccine (MCV4P) Unknown Completed [facility] MMR Unknown Completed [facility] IPV Unknown Completed [facility] TDAP Unknown Completed [facility] Varicella (varivax)(chicken pox) Unknown Completed [facility] TDAP Unknown Completed [facility] DTaP, Unspecified Formulation Unknown Completed [facility] Influenza Virus Vaccine Quad .5 mL IM 6+ MO (FLUZONE/FLULAVAL/FL UARIX) Unknown Completed [facility] Hep B, Adol or Pedi Dosage Unknown Completed [facility] Haemophilus influenzae type b vaccine, conjugate unspecified formulation Unknown Completed [facility] HPV Unknown Completed [facility] Meningococcal Polysaccharide (groups A, C, Y and W-135) conjugate vaccine (MCV4P) Unknown Completed [facility] MMR Unknown Completed [facility] IPV Unknown Completed [facility] Varicella (varivax)(chicken pox) Unknown Completed [facility] TDAP Unknown Completed [facility] DTaP, Unspecified Formulation Unknown Completed [facility] Influenza Virus Vaccine Quad .5 mL IM 6+ MO (FLUZONE/FLULAVAL/FL UARIX) Unknown Completed [facility] Hep B, Adol or Pedi Dosage Unknown Completed [facility] Haemophilus influenzae type b vaccine, conjugate unspecified formulation Unknown Completed [facility] HPV Unknown Completed [facility] Meningococcal Polysaccharide (groups A, C, Y and W-135) conjugate vaccine (MCV4P) Unknown Completed [facility] MMR Unknown Completed [facility] IPV Unknown Completed [facility] Varicella (varivax)(chicken pox) Unknown Completed [facility] TDAP Unknown Completed [facility] DTaP, Unspecified Formulation Unknown Completed [facility] Influenza Virus Vaccine Quad .5 mL IM 6+ MO (FLUZONE/FLULAVAL/FL UARIX) Unknown Completed [facility] Hep B, Adol or Pedi Dosage Unknown Completed [facility] Haemophilus influenzae type b vaccine, conjugate unspecified formulation Unknown Completed [facility] HPV Unknown Completed [facility] Meningococcal Polysaccharide (groups A, C, Y and W-135) conjugate vaccine (MCV4P) Unknown Completed [facility] MMR Unknown Completed [facility] IPV Unknown Completed [facility] Varicella (varivax)(chicken pox) Unknown Completed [facility] TDAP Unknown Completed [facility] DTaP, Unspecified Formulation Unknown Completed [facility] Influenza Virus Vaccine Quad .5 mL IM 6+ MO (FLUZONE/FLULAVAL/FL UARIX) Unknown Completed [facility] Hep B, Adol or Pedi Dosage Unknown Completed [facility] Haemophilus influenzae type b vaccine, conjugate unspecified formulation Unknown Completed [facility] HPV Unknown Completed [facility] Meningococcal Polysaccharide (groups A, C, Y and W-135) conjugate vaccine (MCV4P) Unknown Completed [facility] MMR Unknown Completed [facility] IPV Unknown Completed [facility] Varicella (varivax)(chicken pox) Unknown Completed [facility] TDAP Unknown Completed [facility] DTaP, Unspecified Formulation Unknown Completed [facility] Influenza Virus Vaccine Quad .5 mL IM 6+ MO (FLUZONE/FLULAVAL/FL UARIX) Unknown Completed [facility] Hep B, Adol or Pedi Dosage Unknown Completed [facility] Haemophilus influenzae type b vaccine, conjugate unspecified formulation Unknown Completed [facility] HPV Unknown Completed [facility] Meningococcal Polysaccharide (groups A, C, Y and W-135) conjugate vaccine (MCV4P) Unknown Completed [facility] MMR Unknown Completed [facility] IPV Unknown Completed [facility] Varicella (varivax)(chicken pox) Unknown Completed [facility] TDAP Unknown Completed [facility] DTaP, Unspecified Formulation Unknown Completed [facility] Influenza Virus Vaccine Quad .5 mL IM 6+ MO (FLUZONE/FLULAVAL/FL UARIX) Unknown Completed [facility] Hep B, Adol or Pedi Dosage Unknown Completed [facility] Haemophilus influenzae type b vaccine, conjugate unspecified formulation Unknown Completed [facility] HPV Unknown Completed [facility] Meningococcal Polysaccharide (groups A, C, Y and W-135) conjugate vaccine (MCV4P) Unknown Completed [facility] MMR Unknown Completed [facility] IPV Unknown Completed [facility] Varicella (varivax)(chicken pox) Unknown Completed [facility] TDAP Unknown Completed [facility] DTaP, Unspecified Formulation Unknown Completed [facility] Influenza Virus Vaccine Quad .5 mL IM 6+ MO (FLUZONE/FLULAVAL/FL UARIX) Unknown Completed [facility] Hep B, Adol or Pedi Dosage Unknown Completed [facility] Haemophilus influenzae type b vaccine, conjugate unspecified formulation Unknown Completed [facility] HPV Unknown Completed [facility] Meningococcal Polysaccharide (groups A, C, Y and W-135) conjugate vaccine (MCV4P) Unknown Completed [facility] MMR Unknown Completed [facility] IPV Unknown Completed [facility] Varicella (varivax)(chicken pox) Unknown Completed [facility] TDAP Unknown Completed [facility] DTaP, Unspecified Formulation Unknown Completed [facility] Influenza Virus Vaccine Quad .5 mL IM 6+ MO (FLUZONE/FLULAVAL/FL UARIX) Unknown Completed [facility] Hep B, Adol or Pedi Dosage Unknown Completed [facility] Haemophilus influenzae type b vaccine, conjugate unspecified formulation Unknown Completed [facility] HPV Unknown Completed [facility] Meningococcal Polysaccharide (groups A, C, Y and W-135) conjugate vaccine (MCV4P) Unknown Completed [facility] MMR Unknown Completed [facility] IPV Unknown Completed [facility] Varicella (varivax)(chicken pox) Unknown Completed [facility] Influenza Virus Vaccine Quad .5 mL IM 6+ MO (FLUZONE/FLULAVAL/FL UARIX) Unknown Completed [facility] Meningococcal Polysaccharide (groups A, C, Y and W-135) conjugate vaccine (MCV4P) Unknown Completed [facility] TDAP Unknown Completed [facility] DTaP, Unspecified Formulation Unknown Completed [facility] Hep B, Adol or Pedi Dosage Unknown Completed [facility] Haemophilus influenzae type b vaccine, conjugate unspecified formulation Unknown Completed [facility] HPV Unknown Completed [facility] MMR Unknown Completed [facility] IPV Unknown Completed [facility] Varicella (varivax)(chicken pox) Unknown Completed [facility] TDAP Unknown Completed [facility] DTaP, Unspecified Formulation Unknown Completed [facility] Influenza Virus Vaccine Quad .5 mL IM 6+ MO (FLUZONE/FLULAVAL/FL UARIX) Unknown Completed [facility] Hep B, Adol or Pedi Dosage Unknown Completed [facility] Haemophilus influenzae type b vaccine, conjugate unspecified formulation Unknown Completed [facility] HPV Unknown Completed [facility] Meningococcal Polysaccharide (groups A, C, Y and W-135) conjugate vaccine (MCV4P) Unknown Completed [facility] MMR Unknown Completed [facility] IPV Unknown Completed [facility] Varicella (varivax)(chicken pox) Unknown Completed [facility] TDAP Unknown Completed [facility] DTaP, Unspecified Formulation Unknown Completed [facility] Influenza Virus Vaccine Quad .5 mL IM 6+ MO (FLUZONE/FLULAVAL/FL UARIX) Unknown Completed [facility] Hep B, Adol or Pedi Dosage Unknown Completed [facility] Haemophilus influenzae type b vaccine, conjugate unspecified formulation Unknown Completed [facility] HPV Unknown Completed [facility] Meningococcal Polysaccharide (groups A, C, Y and W-135) conjugate vaccine (MCV4P) Unknown Completed [facility] MMR Unknown Completed [facility] IPV Unknown Completed [facility] Varicella (varivax)(chicken pox) Unknown Completed [facility] TDAP Unknown Completed [facility] DTaP, Unspecified Formulation Unknown Completed [facility] Influenza Virus Vaccine Quad .5 mL IM 6+ MO (FLUZONE/FLULAVAL/FL UARIX) Unknown Completed [facility] Hep B, Adol or Pedi Dosage Unknown Completed [facility] Haemophilus influenzae type b vaccine, conjugate unspecified formulation Unknown Completed [facility] HPV Unknown Completed [facility] Meningococcal Polysaccharide (groups A, C, Y and W-135) conjugate vaccine (MCV4P) Unknown Completed [facility] MMR Unknown Completed [facility] IPV Unknown Completed [facility] Varicella (varivax)(chicken pox) Unknown Completed [facility] TDAP Unknown Completed [facility] DTaP, Unspecified Formulation Unknown Completed [facility] Influenza Virus Vaccine Quad .5 mL IM 6+ MO (FLUZONE/FLULAVAL/FL UARIX) Unknown Completed [facility] Hep B, Adol or Pedi Dosage Unknown Completed [facility] Haemophilus influenzae type b vaccine, conjugate unspecified formulation Unknown Completed [facility] HPV Unknown Completed [facility] Meningococcal Polysaccharide (groups A, C, Y and W-135) conjugate vaccine (MCV4P) Unknown Completed [facility] MMR Unknown Completed [facility] IPV Unknown Completed [facility] Varicella (varivax)(chicken pox) Unknown Completed [facility] TDAP Unknown Completed [facility] DTaP, Unspecified Formulation Unknown Completed [facility] Influenza Virus Vaccine Quad .5 mL IM 6+ MO (FLUZONE/FLULAVAL/FL UARIX) Unknown Completed [facility] Hep B, Adol or Pedi Dosage Unknown Completed [facility] Haemophilus influenzae type b vaccine, conjugate unspecified formulation Unknown Completed [facility] HPV Unknown Completed [facility] Meningococcal Polysaccharide (groups A, C, Y and W-135) conjugate vaccine (MCV4P) Unknown Completed [facility] MMR Unknown Completed [facility] IPV Unknown Completed [facility] Varicella (varivax)(chicken pox) Unknown Completed [facility] TDAP Unknown Completed [facility] DTaP, Unspecified Formulation Unknown Completed [facility] Influenza Virus Vaccine Quad .5 mL IM 6+ MO (FLUZONE/FLULAVAL/FL UARIX) Unknown Completed [facility] Hep B, Adol or Pedi Dosage Unknown Completed [facility] Haemophilus influenzae type b vaccine, conjugate unspecified formulation Unknown Completed [facility] HPV Unknown Completed [facility] Meningococcal Polysaccharide (groups A, C, Y and W-135) conjugate vaccine (MCV4P) Unknown Completed [facility] MMR Unknown Completed [facility] IPV Unknown Completed [facility] Varicella (varivax)(chicken pox) Unknown Completed [facility] TDAP Unknown Completed [facility] DTaP, Unspecified Formulation Unknown Completed [facility] Influenza Virus Vaccine Quad .5 mL IM 6+ MO (FLUZONE/FLULAVAL/FL UARIX) Unknown Completed [facility] Hep B, Adol or Pedi Dosage Unknown Completed [facility] Haemophilus influenzae type b vaccine, conjugate unspecified formulation Unknown Completed [facility] HPV Unknown Completed [facility] Meningococcal Polysaccharide (groups A, C, Y and W-135) conjugate vaccine (MCV4P) Unknown Completed [facility] MMR Unknown Completed [facility] IPV Unknown Completed [facility] Varicella (varivax)(chicken pox) Unknown Completed [facility] TDAP Unknown Completed [facility] DTaP, Unspecified Formulation Unknown Completed [facility] Influenza Virus Vaccine Quad .5 mL IM 6+ MO (FLUZONE/FLULAVAL/FL UARIX) Unknown Completed [facility] Hep B, Adol or Pedi Dosage Unknown Completed [facility] Haemophilus influenzae type b vaccine, conjugate unspecified formulation Unknown Completed [facility] HPV Unknown Completed [facility] Meningococcal Polysaccharide (groups A, C, Y and W-135) conjugate vaccine (MCV4P) Unknown Completed [facility] MMR Unknown Completed [facility] IPV Unknown Completed [facility] Varicella (varivax)(chicken pox) Unknown Completed [facility] TDAP Unknown Completed [facility] DTaP, Unspecified Formulation Unknown Completed [facility] Influenza Virus Vaccine Quad .5 mL IM 6+ MO (FLUZONE/FLULAVAL/FL UARIX) Unknown Completed [facility] Hep B, Adol or Pedi Dosage Unknown Completed [facility] Haemophilus influenzae type b vaccine, conjugate unspecified formulation Unknown Completed [facility] HPV Unknown Completed [facility] Meningococcal Polysaccharide (groups A, C, Y and W-135) conjugate vaccine (MCV4P) Unknown Completed [facility] MMR Unknown Completed [facility] IPV Unknown Completed [facility] Varicella (varivax)(chicken pox) Unknown Completed [facility] TDAP Unknown Completed [facility] DTaP, Unspecified Formulation Unknown Completed [facility] Influenza Virus Vaccine Quad .5 mL IM 6+ MO (FLUZONE/FLULAVAL/FL UARIX) Unknown Completed [facility] Hep B, Adol or Pedi Dosage Unknown Completed [facility] Haemophilus influenzae type b vaccine, conjugate unspecified formulation Unknown Completed [facility] HPV Unknown Completed [facility] Meningococcal Polysaccharide (groups A, C, Y and W-135) conjugate vaccine (MCV4P) Unknown Completed [facility] MMR Unknown Completed [facility] IPV Unknown Completed [facility] Varicella (varivax)(chicken pox) Unknown Completed [facility] TDAP Unknown Completed [facility] DTaP, Unspecified Formulation Unknown Completed [facility] Influenza Virus Vaccine Quad .5 mL IM 6+ MO (FLUZONE/FLULAVAL/FL UARIX) Unknown Completed [facility] Hep B, Adol or Pedi Dosage Unknown Completed [facility] Haemophilus influenzae type b vaccine, conjugate unspecified formulation Unknown Completed [facility] HPV Unknown Completed [facility] Meningococcal Polysaccharide (groups A, C, Y and W-135) conjugate vaccine (MCV4P) Unknown Completed [facility] MMR Unknown Completed [facility] IPV Unknown Completed [facility] Varicella (varivax)(chicken pox) Unknown Completed [facility] TDAP Unknown Completed [facility] DTaP, Unspecified Formulation Unknown Completed [facility] Influenza Virus Vaccine Quad .5 mL IM 6+ MO (FLUZONE/FLULAVAL/FL UARIX) Unknown Completed [facility] Hep B, Adol or Pedi Dosage Unknown Completed [facility] Haemophilus influenzae type b vaccine, conjugate unspecified formulation Unknown Completed [facility] HPV Unknown Completed [facility] Meningococcal Polysaccharide (groups A, C, Y and W-135) conjugate vaccine (MCV4P) Unknown Completed [facility] MMR Unknown Completed [facility] IPV Unknown Completed [facility] Varicella (varivax)(chicken pox) Unknown Completed [facility] Influenza Virus Vaccine Quad .5 mL IM 6+ MO (FLUZONE/FLULAVAL/FL UARIX) Unknown Completed [facility] Meningococcal Polysaccharide (groups A, C, Y and W-135) conjugate vaccine (MCV4P) Unknown Completed [facility] DTaP, Unspecified Formulation Unknown Completed [facility] Hep B, Adol or Pedi Dosage Unknown Completed [facility] Haemophilus influenzae type b vaccine, conjugate unspecified formulation Unknown Completed [facility] HPV Unknown Completed [facility] MMR Unknown Completed [facility] IPV Unknown Completed [facility] TDAP Unknown Completed [facility] Varicella (varivax)(chicken pox) Unknown Completed [facility] TDAP Unknown Completed [facility] DTaP, Unspecified Formulation Unknown Completed [facility] Influenza Virus Vaccine Quad .5 mL IM 6+ MO (FLUZONE/FLULAVAL/FL UARIX) Unknown Completed [facility] Hep B, Adol or Pedi Dosage Unknown Completed [facility] Haemophilus influenzae type b vaccine, conjugate unspecified formulation Unknown Completed [facility] HPV Unknown Completed [facility] Meningococcal Polysaccharide (groups A, C, Y and W-135) conjugate vaccine (MCV4P) Unknown Completed [facility] MMR Unknown Completed [facility] IPV Unknown Completed [facility] Varicella (varivax)(chicken pox) Unknown Completed [facility] TDAP Unknown Completed [facility] DTaP, Unspecified Formulation Unknown Completed [facility] Influenza Virus Vaccine Quad .5 mL IM 6+ MO (FLUZONE/FLULAVAL/FL UARIX) Unknown Completed [facility] Hep B, Adol or Pedi Dosage Unknown Completed [facility] Haemophilus influenzae type b vaccine, conjugate unspecified formulation Unknown Completed [facility] HPV Unknown Completed [facility] Meningococcal Polysaccharide (groups A, C, Y and W-135) conjugate vaccine (MCV4P) Unknown Completed [facility] MMR Unknown Completed [facility] IPV Unknown Completed [facility] Varicella (varivax)(chicken pox) Unknown Completed [facility] Influenza Virus Vaccine Quad .5 mL IM 6+ MO (FLUZONE/FLULAVAL/FL UARIX) Unknown Completed [facility] Meningococcal Polysaccharide (groups A, C, Y and W-135) conjugate vaccine (MCV4P) Unknown Completed [facility] TDAP Unknown Completed [facility] DTaP, Unspecified Formulation Unknown Completed [facility] Influenza Virus Vaccine Quad .5 mL IM 6+ MO (FLUZONE/FLULAVAL/FL UARIX) Unknown Completed [facility] Hep B, Adol or Pedi Dosage Unknown Completed [facility] Haemophilus influenzae type b vaccine, conjugate unspecified formulation Unknown Completed [facility] HPV Unknown Completed [facility] Meningococcal Polysaccharide (groups A, C, Y and W-135) conjugate vaccine (MCV4P) Unknown Completed [facility] MMR Unknown Completed [facility] IPV Unknown Completed [facility] Varicella (varivax)(chicken pox) Unknown Completed [facility] TDAP Unknown Completed [facility] DTaP, Unspecified Formulation Unknown Completed [facility] Influenza Virus Vaccine Quad .5 mL IM 6+ MO (FLUZONE/FLULAVAL/FL UARIX) Unknown Completed [facility] Hep B, Adol or Pedi Dosage Unknown Completed [facility] Haemophilus influenzae type b vaccine, conjugate unspecified formulation Unknown Completed [facility] HPV Unknown Completed [facility] Meningococcal Polysaccharide (groups A, C, Y and W-135) conjugate vaccine (MCV4P) Unknown Completed [facility] MMR Unknown Completed [facility] IPV Unknown Completed [facility] Varicella (varivax)(chicken pox) Unknown Completed [facility] Influenza Virus Vaccine Quad .5 mL IM 6+ MO (FLUZONE/FLULAVAL/FL UARIX) Unknown Completed [facility] Meningococcal Polysaccharide (groups A, C, Y and W-135) conjugate vaccine (MCV4P) Unknown Completed [facility] TDAP Unknown Completed [facility] DTaP, Unspecified Formulation Unknown Completed [facility] Hep B, Adol or Pedi Dosage Unknown Completed [facility] Haemophilus influenzae type b vaccine, conjugate unspecified formulation Unknown Completed [facility] HPV Unknown Completed [facility] MMR Unknown Completed [facility] IPV Unknown Completed [facility] Varicella (varivax)(chicken pox) Unknown Completed [facility] TDAP Unknown Completed [facility] DTaP, Unspecified Formulation Unknown Completed [facility] Hep B, Adol or Pedi Dosage Unknown Completed [facility] Haemophilus influenzae type b vaccine, conjugate unspecified formulation Unknown Completed [facility] HPV Unknown Completed [facility] MMR Unknown Completed [facility] IPV Unknown Completed [facility] Varicella (varivax)(chicken pox) Unknown Completed [facility] TDAP Unknown Completed [facility] DTaP, Unspecified Formulation Unknown Completed [facility] Influenza Virus Vaccine Quad .5 mL IM 6+ MO (FLUZONE/FLULAVAL/FL UARIX) Unknown Completed [facility] Hep B, Adol or Pedi Dosage Unknown Completed [facility] Haemophilus influenzae type b vaccine, conjugate unspecified formulation Unknown Completed [facility] HPV Unknown Completed [facility] Meningococcal Polysaccharide (groups A, C, Y and W-135) conjugate vaccine (MCV4P) Unknown Completed [facility] MMR Unknown Completed [facility] IPV Unknown Completed [facility] Varicella (varivax)(chicken pox) Unknown Completed [facility] TDAP Unknown Completed [facility] DTaP, Unspecified Formulation Unknown Completed [facility] Influenza Virus Vaccine Quad .5 mL IM 6+ MO (FLUZONE/FLULAVAL/FL UARIX) Unknown Completed [facility] Hep B, Adol or Pedi Dosage Unknown Completed [facility] Haemophilus influenzae type b vaccine, conjugate unspecified formulation Unknown Completed [facility] HPV Unknown Completed [facility] Meningococcal Polysaccharide (groups A, C, Y and W-135) conjugate vaccine (MCV4P) Unknown Completed [facility] MMR Unknown Completed [facility] IPV Unknown Completed [facility] Varicella (varivax)(chicken pox) Unknown Completed [facility] TDAP Unknown Completed [facility] DTaP, Unspecified Formulation Unknown Completed [facility] Influenza Virus Vaccine Quad .5 mL IM 6+ MO (FLUZONE/FLULAVAL/FL UARIX) Unknown Completed [facility] Hep B, Adol or Pedi Dosage Unknown Completed [facility] Haemophilus influenzae type b vaccine, conjugate unspecified formulation Unknown Completed [facility] HPV Unknown Completed [facility] Meningococcal Polysaccharide (groups A, C, Y and W-135) conjugate vaccine (MCV4P) Unknown Completed [facility] MMR Unknown Completed [facility] IPV Unknown Completed [facility] Varicella (varivax)(chicken pox) Unknown Completed [facility] TDAP Unknown Completed [facility] DTaP, Unspecified Formulation Unknown Completed [facility] Influenza Virus Vaccine Quad .5 mL IM 6+ MO (FLUZONE/FLULAVAL/FL UARIX) Unknown Completed [facility] Hep B, Adol or Pedi Dosage Unknown Completed [facility] Haemophilus influenzae type b vaccine, conjugate unspecified formulation Unknown Completed [facility] HPV Unknown Completed [facility] Meningococcal Polysaccharide (groups A, C, Y and W-135) conjugate vaccine (MCV4P) Unknown Completed [facility] MMR Unknown Completed [facility] IPV Unknown Completed [facility] Varicella (varivax)(chicken pox) Unknown Completed [facility] TDAP Unknown Completed [facility] DTaP, Unspecified Formulation Unknown Completed [facility] Influenza Virus Vaccine Quad .5 mL IM 6+ MO (FLUZONE/FLULAVAL/FL UARIX) Unknown Completed [facility] Hep B, Adol or Pedi Dosage Unknown Completed [facility] Haemophilus influenzae type b vaccine, conjugate unspecified formulation Unknown Completed [facility] HPV Unknown Completed [facility] Meningococcal Polysaccharide (groups A, C, Y and W-135) conjugate vaccine (MCV4P) Unknown Completed [facility] MMR Unknown Completed [facility] IPV Unknown Completed [facility] Varicella (varivax)(chicken pox) Unknown Completed [facility] TDAP Unknown Completed [facility] DTaP, Unspecified Formulation Unknown Completed [facility] Influenza Virus Vaccine Quad .5 mL IM 6+ MO (FLUZONE/FLULAVAL/FL UARIX) Unknown Completed [facility] Hep B, Adol or Pedi Dosage Unknown Completed [facility] Haemophilus influenzae type b vaccine, conjugate unspecified formulation Unknown Completed [facility] HPV Unknown Completed [facility] Meningococcal Polysaccharide (groups A, C, Y and W-135) conjugate vaccine (MCV4P) Unknown Completed [facility] MMR Unknown Completed [facility] IPV Unknown Completed [facility] Varicella (varivax)(chicken pox) Unknown Completed [facility] TDAP Unknown Completed [facility] DTaP, Unspecified Formulation Unknown Completed [facility] Influenza Virus Vaccine Quad .5 mL IM 6+ MO (FLUZONE/FLULAVAL/FL UARIX) Unknown Completed [facility] Hep B, Adol or Pedi Dosage Unknown Completed [facility] Haemophilus influenzae type b vaccine, conjugate unspecified formulation Unknown Completed [facility] HPV Unknown Completed [facility] Meningococcal Polysaccharide (groups A, C, Y and W-135) conjugate vaccine (MCV4P) Unknown Completed [facility] MMR Unknown Completed [facility] IPV Unknown Completed [facility] Varicella (varivax)(chicken pox) Unknown Completed [facility] TDAP Unknown Completed [facility] DTaP, Unspecified Formulation Unknown Completed [facility] Influenza Virus Vaccine Quad .5 mL IM 6+ MO (FLUZONE/FLULAVAL/FL UARIX) Unknown Completed [facility] Hep B, Adol or Pedi Dosage Unknown Completed [facility] Haemophilus influenzae type b vaccine, conjugate unspecified formulation Unknown Completed [facility] HPV Unknown Completed [facility] Meningococcal Polysaccharide (groups A, C, Y and W-135) conjugate vaccine (MCV4P) Unknown Completed [facility] MMR Unknown Completed [facility] IPV Unknown Completed [facility] Varicella (varivax)(chicken pox) Unknown Completed [facility] TDAP Unknown Completed [facility] DTaP, Unspecified Formulation Unknown Completed [facility] Influenza Virus Vaccine Quad .5 mL IM 6+ MO (FLUZONE/FLULAVAL/FL UARIX) Unknown Completed [facility] Hep B, Adol or Pedi Dosage Unknown Completed [facility] Haemophilus influenzae type b vaccine, conjugate unspecified formulation Unknown Completed [facility] HPV Unknown Completed [facility] Meningococcal Polysaccharide (groups A, C, Y and W-135) conjugate vaccine (MCV4P) Unknown Completed [facility] MMR Unknown Completed [facility] IPV Unknown Completed [facility] Varicella (varivax)(chicken pox) Unknown Completed [facility] TDAP Unknown Completed [facility] DTaP, Unspecified Formulation Unknown Completed [facility] Influenza Virus Vaccine Quad .5 mL IM 6+ MO (FLUZONE/FLULAVAL/FL UARIX) Unknown Completed [facility] Hep B, Adol or Pedi Dosage Unknown Completed [facility] Haemophilus influenzae type b vaccine, conjugate unspecified formulation Unknown Completed [facility] HPV Unknown Completed [facility] Meningococcal Polysaccharide (groups A, C, Y and W-135) conjugate vaccine (MCV4P) Unknown Completed [facility] MMR Unknown Completed [facility] IPV Unknown Completed [facility] Varicella (varivax)(chicken pox) Unknown Completed [facility] TDAP Unknown Completed [facility] DTaP, Unspecified Formulation Unknown Completed [facility] Influenza Virus Vaccine Quad .5 mL IM 6+ MO (FLUZONE/FLULAVAL/FL UARIX) Unknown Completed [facility] Hep B, Adol or Pedi Dosage Unknown Completed [facility] Haemophilus influenzae type b vaccine, conjugate unspecified formulation Unknown Completed [facility] HPV Unknown Completed [facility] Meningococcal Polysaccharide (groups A, C, Y and W-135) conjugate vaccine (MCV4P) Unknown Completed [facility] MMR Unknown Completed [facility] IPV Unknown Completed [facility] Varicella (varivax)(chicken pox) Unknown Completed [facility] TDAP Unknown Completed [facility] DTaP, Unspecified Formulation Unknown Completed [facility] Influenza Virus Vaccine Quad .5 mL IM 6+ MO (FLUZONE/FLULAVAL/FL UARIX) Unknown Completed [facility] Hep B, Adol or Pedi Dosage Unknown Completed [facility] Haemophilus influenzae type b vaccine, conjugate unspecified formulation Unknown Completed [facility] HPV Unknown Completed [facility] Meningococcal Polysaccharide (groups A, C, Y and W-135) conjugate vaccine (MCV4P) Unknown Completed [facility] MMR Unknown Completed [facility] IPV Unknown Completed [facility] Varicella (varivax)(chicken pox) Unknown Completed [facility] TDAP Unknown Completed [facility] DTaP, Unspecified Formulation Unknown Completed [facility] Influenza Virus Vaccine Quad .5 mL IM 6+ MO (FLUZONE/FLULAVAL/FL UARIX) Unknown Completed [facility] Hep B, Adol or Pedi Dosage Unknown Completed [facility] Haemophilus influenzae type b vaccine, conjugate unspecified formulation Unknown Completed [facility] HPV Unknown Completed [facility] Meningococcal Polysaccharide (groups A, C, Y and W-135) conjugate vaccine (MCV4P) Unknown Completed [facility] MMR Unknown Completed [facility] IPV Unknown Completed [facility] Varicella (varivax)(chicken pox) Unknown Completed [facility] TDAP Unknown Completed [facility] DTaP, Unspecified Formulation Unknown Completed [facility] Influenza Virus Vaccine Quad .5 mL IM 6+ MO (FLUZONE/FLULAVAL/FL UARIX) Unknown Completed [facility] Hep B, Adol or Pedi Dosage Unknown Completed [facility] Haemophilus influenzae type b vaccine, conjugate unspecified formulation Unknown Completed [facility] HPV Unknown Completed [facility] Meningococcal Polysaccharide (groups A, C, Y and W-135) conjugate vaccine (MCV4P) Unknown Completed [facility] MMR Unknown Completed [facility] IPV Unknown Completed [facility] Varicella (varivax)(chicken pox) Unknown Completed [facility] HPV9 Unknown Completed [facility] Influenza Virus Vaccine Quad .5 mL IM 6+ MO (FLUZONE/FLULAVAL/FL UARIX) Unknown Completed [facility] Meningococcal Polysaccharide (groups A, C, Y and W-135) conjugate vaccine (MCV4P) Unknown Completed [facility] HPV9 Unknown Completed [facility] TDAP Unknown Completed [facility] DTaP, Unspecified Formulation Unknown Completed [facility] Hep B, Adol or Pedi Dosage Unknown Completed [facility] Haemophilus influenzae type b vaccine, conjugate unspecified formulation Unknown Completed [facility] HPV Unknown Completed [facility] MMR Unknown Completed [facility] IPV Unknown Completed [facility] Varicella (varivax)(chicken pox) Unknown Completed [facility] TDAP Unknown Completed [facility] DTaP, Unspecified Formulation Unknown Completed [facility] Influenza Virus Vaccine Quad .5 mL IM 6+ MO (FLUZONE/FLULAVAL/FL UARIX) Unknown Completed [facility] Hep B, Adol or Pedi Dosage Unknown Completed [facility] Haemophilus influenzae type b vaccine, conjugate unspecified formulation Unknown Completed [facility] HPV Unknown Completed [facility] Meningococcal Polysaccharide (groups A, C, Y and W-135) conjugate vaccine (MCV4P) Unknown Completed [facility] MMR Unknown Completed [facility] IPV Unknown Completed [facility] Varicella (varivax)(chicken pox) Unknown Completed [facility] HPV9 Unknown Completed [facility] TDAP Unknown Completed [facility] DTaP, Unspecified Formulation Unknown Completed [facility] Influenza Virus Vaccine Quad .5 mL IM 6+ MO (FLUZONE/FLULAVAL/FL UARIX) Unknown Completed [facility] Hep B, Adol or Pedi Dosage Unknown Completed [facility] Haemophilus influenzae type b vaccine, conjugate unspecified formulation Unknown Completed [facility] HPV Unknown Completed [facility] Meningococcal Polysaccharide (groups A, C, Y and W-135) conjugate vaccine (MCV4P) Unknown Completed [facility] MMR Unknown Completed [facility] IPV Unknown Completed [facility] Varicella (varivax)(chicken pox) Unknown Completed [facility] HPV9 Unknown Completed [facility] TDAP Unknown Completed [facility] DTaP, Unspecified Formulation Unknown Completed [facility] Influenza Virus Vaccine Quad .5 mL IM 6+ MO (FLUZONE/FLULAVAL/FL UARIX) Unknown Completed [facility] Hep B, Adol or Pedi Dosage Unknown Completed [facility] Haemophilus influenzae type b vaccine, conjugate unspecified formulation Unknown Completed [facility] HPV Unknown Completed [facility] Meningococcal Polysaccharide (groups A, C, Y and W-135) conjugate vaccine (MCV4P) Unknown Completed [facility] MMR Unknown Completed [facility] IPV Unknown Completed [facility] Varicella (varivax)(chicken pox) Unknown Completed [facility] HPV9 Unknown Completed [facility] Influenza Virus Vaccine Quad .5 mL IM 6+ MO (FLUZONE/FLULAVAL/FL UARIX) Unknown Completed [facility] Meningococcal Polysaccharide (groups A, C, Y and W-135) conjugate vaccine (MCV4P) Unknown Completed [facility] HPV9 Unknown Completed [facility] TDAP Unknown Completed [facility] DTaP, Unspecified Formulation Unknown Completed [facility] Influenza Virus Vaccine Quad .5 mL IM 6+ MO (FLUZONE/FLULAVAL/FL UARIX) Unknown Completed [facility] Hep B, Adol or Pedi Dosage Unknown Completed [facility] Haemophilus influenzae type b vaccine, conjugate unspecified formulation Unknown Completed [facility] HPV Unknown Completed [facility] Meningococcal Polysaccharide (groups A, C, Y and W-135) conjugate vaccine (MCV4P) Unknown Completed [facility] MMR Unknown Completed [facility] IPV Unknown Completed [facility] Varicella (varivax)(chicken pox) Unknown Completed [facility] HPV9 Unknown Completed [facility] TDAP Unknown Completed [facility] DTaP, Unspecified Formulation Unknown Completed [facility] Influenza Virus Vaccine Quad .5 mL IM 6+ MO (FLUZONE/FLULAVAL/FL UARIX) Unknown Completed [facility] Hep B, Adol or Pedi Dosage Unknown Completed [facility] Haemophilus influenzae type b vaccine, conjugate unspecified formulation Unknown Completed [facility] HPV Unknown Completed [facility] Meningococcal Polysaccharide (groups A, C, Y and W-135) conjugate vaccine (MCV4P) Unknown Completed [facility] MMR Unknown Completed [facility] IPV Unknown Completed [facility] Varicella (varivax)(chicken pox) Unknown Completed [facility] HPV9 Unknown Completed [facility] TDAP Unknown Completed [facility] DTaP, Unspecified Formulation Unknown Completed [facility] Hep B, Adol or Pedi Dosage Unknown Completed [facility] Haemophilus influenzae type b vaccine, conjugate unspecified formulation Unknown Completed [facility] HPV Unknown Completed [facility] MMR Unknown Completed [facility] IPV Unknown Completed [facility] Varicella (varivax)(chicken pox) Unknown Completed [facility] TDAP Unknown Completed [facility] DTaP, Unspecified Formulation Unknown Completed [facility] Influenza Virus Vaccine Quad .5 mL IM 6+ MO (FLUZONE/FLULAVAL/FL UARIX) Unknown Completed [facility] Hep B, Adol or Pedi Dosage Unknown Completed [facility] Haemophilus influenzae type b vaccine, conjugate unspecified formulation Unknown Completed [facility] HPV Unknown Completed [facility] Meningococcal Polysaccharide (groups A, C, Y and W-135) conjugate vaccine (MCV4P) Unknown Completed [facility] MMR Unknown Completed [facility] IPV Unknown Completed [facility] Varicella (varivax)(chicken pox) Unknown Completed [facility] HPV9 Unknown Completed [facility] TDAP Unknown Completed [facility] DTaP, Unspecified Formulation Unknown Completed [facility] Influenza Virus Vaccine Quad .5 mL IM 6+ MO (FLUZONE/FLULAVAL/FL UARIX) Unknown Completed [facility] Hep B, Adol or Pedi Dosage Unknown Completed [facility] Haemophilus influenzae type b vaccine, conjugate unspecified formulation Unknown Completed [facility] HPV Unknown Completed [facility] Meningococcal Polysaccharide (groups A, C, Y and W-135) conjugate vaccine (MCV4P) Unknown Completed [facility] MMR Unknown Completed [facility] IPV Unknown Completed [facility] Varicella (varivax)(chicken pox) Unknown Completed [facility] HPV9 Unknown Completed [facility] TDAP Unknown Completed [facility] DTaP, Unspecified Formulation Unknown Completed [facility] Influenza Virus Vaccine Quad .5 mL IM 6+ MO (FLUZONE/FLULAVAL/FL UARIX) Unknown Completed [facility] Hep B, Adol or Pedi Dosage Unknown Completed [facility] Haemophilus influenzae type b vaccine, conjugate unspecified formulation Unknown Completed [facility] HPV Unknown Completed [facility] Meningococcal Polysaccharide (groups A, C, Y and W-135) conjugate vaccine (MCV4P) Unknown Completed [facility] MMR Unknown Completed [facility] IPV Unknown Completed [facility] Varicella (varivax)(chicken pox) Unknown Completed [facility] HPV9 Unknown Completed [facility] Vital Signs Vital Name Observation Time Observation Value Comments S ource Systolic blood pressure 2024-07-05 00:16:00 115 mm[Hg] [facility] Diastolic blood pressure 2024-07-05 00:16:00 72 mm[Hg] [facility] Heart rate 2024-07-05 00:16:00 84 /min [facility] Body temperature 2024-07-05 00:16:00 37.06 Maria Dolores [facility] Respiratory rate 2024-07-05 00:16:00 18 /min [facility] Body weight 2024-07-05 00:16:00 105.291 kg [facility] BMI 2024-07-05 00:16:00 37.47 kg/m2 [facility] Oxygen saturation in Arterial blood by Pulse oximetry 2024-07-05 00:16:00 100 /min [facility] Systolic blood pressure 2024-01-23 00:55:00 124 mm[Hg] [facility] Diastolic blood pressure 2024-01-23 00:55:00 76 mm[Hg] [facility] Heart rate 2024-01-23 00:55:00 82 /min [facility] Body temperature 2024-01-23 00:55:00 36.11 Maria Dolores [facility] Respiratory rate 2024-01-23 00:55:00 17 /min [facility] Body weight 2024-01-23 00:55:00 105.802 kg [facility] BMI 2024-01-23 00:55:00 37.65 kg/m2 [facility] Oxygen saturation in Arterial blood by Pulse oximetry 2024-01-23 00:55:00 100 /min [facility] Systolic blood pressure 2024-01-05 15:32:00 110 mm[Hg] [facility] Diastolic blood pressure 2024-01-05 15:32:00 76 mm[Hg] [facility] Heart rate 2024-01-05 15:32:00 69 /min [facility] Body temperature 2024-01-05 15:32:00 37 Maria Dolores [facility] Respiratory rate 2024-01-05 15:32:00 18 /min [facility] Body height 2024-01-05 15:32:00 167.6 cm [facility] Body weight 2024-01-05 15:32:00 105.915 kg [facility] BMI 2024-01-05 15:32:00 37.69 kg/m2 [facility] Oxygen saturation in Arterial blood by Pulse oximetry 2024-01-05 15:32:00 99 /min [facility] Systolic blood pressure 2023-11-02 16:06:00 112 mm[Hg] [facility] Diastolic blood pressure 2023-11-02 16:06:00 66 mm[Hg] [facility] Heart rate 2023-11-02 16:06:00 65 /min [facility] Body temperature 2023-11-02 16:06:00 36.56 Maria Dolores [facility] Respiratory rate 2023-11-02 16:06:00 17 /min [facility] Body height 2023-11-02 16:06:00 170.2 cm [facility] Body weight 2023-11-02 16:06:00 99.428 kg [facility] BMI 2023-11-02 16:06:00 34.33 kg/m2 [facility] Systolic blood pressure 2023-09-24 19:08:00 148 mm[Hg] [facility] Diastolic blood pressure 2023-09-24 19:08:00 85 mm[Hg] [facility] Heart rate 2023-09-24 19:08:00 56 /min [facility] Body temperature 2023-09-24 19:07:00 36.5 Maria Dolores [facility] Respiratory rate 2023-09-24 19:07:00 20 /min [facility] Body height 2023-09-24 19:07:00 170.2 cm [facility] Body weight 2023-09-24 19:07:00 102.876 kg [facility] BMI 2023-09-24 19:07:00 35.52 kg/m2 [facility] Systolic blood pressure 2023-09-19 13:42:00 112 mm[Hg] [facility] Diastolic blood pressure 2023-09-19 13:42:00 78 mm[Hg] [facility] Heart rate 2023-09-19 13:42:00 77 /min [facility] Body temperature 2023-09-19 13:42:00 36.39 Maria Dolores [facility] Respiratory rate 2023-09-19 13:42:00 18 /min [facility] Oxygen saturation in Arterial blood by Pulse oximetry 2023-09-19 13:42:00 98 /min [facility] Body height 2023-09-16 01:00:00 167.6 cm [facility] Body weight 2023-09-16 01:00:00 109.362 kg [facility] BMI 2023-09-16 01:00:00 38.93 kg/m2 [facility] Systolic blood pressure 2023-09-16 13:45:00 102 mm[Hg] [facility] Diastolic blood pressure 2023-09-16 13:45:00 72 mm[Hg] [facility] Heart rate 2023-09-16 13:45:00 69 /min [facility] Respiratory rate 2023-09-16 13:45:00 19 /min [facility] Oxygen saturation in Arterial blood by Pulse oximetry 2023-09-16 13:45:00 99 /min [facility] Body temperature 2023-09-16 13:00:00 36.61 Maria Dolores [facility] Body height 2023-09-16 01:00:00 167.6 cm [facility] Body weight 2023-09-16 01:00:00 109.362 kg [facility] BMI 2023-09-16 01:00:00 38.93 kg/m2 [facility] Systolic blood pressure 2023-09-15 15:18:00 135 mm[Hg] [facility] Diastolic blood pressure 2023-09-15 15:18:00 86 mm[Hg] [facility] Heart rate 2023-09-15 15:18:00 95 /min [facility] Body temperature 2023-09-15 15:18:00 36.5 Maria Dolores [facility] Respiratory rate 2023-09-15 15:18:00 19 /min [facility] Body height 2023-09-15 15:18:00 167.6 cm [facility] Body weight 2023-09-15 15:18:00 107.956 kg [facility] BMI 2023-09-15 15:18:00 38.41 kg/m2 [facility] Systolic blood pressure 2023-09-15 16:48:00 106 mm[Hg] [facility] Diastolic blood pressure 2023-09-15 16:48:00 86 mm[Hg] [facility] Heart rate 2023-09-15 16:48:00 79 /min [facility] Body temperature 2023-09-15 16:48:00 36.56 Maria Dolores [facility] Heart rate 2023-09-11 01:50:00 79 /min [facility] Oxygen saturation in Arterial blood by Pulse oximetry 2023-09-11 01:50:00 100 /min [facility] Systolic blood pressure 2023-09-11 01:30:00 106 mm[Hg] [facility] Diastolic blood pressure 2023-09-11 01:30:00 86 mm[Hg] [facility] Respiratory rate 2023-09-11 01:00:00 18 /min [facility] Body height 2023-09-10 21:30:00 167.6 cm [facility] Body weight 2023-09-10 21:30:00 107.956 kg [facility] BMI 2023-09-10 21:30:00 38.41 kg/m2 [facility] Systolic blood pressure 2023-09-10 17:37:00 118 mm[Hg] [facility] Diastolic blood pressure 2023-09-10 17:37:00 78 mm[Hg] [facility] Heart rate 2023-09-10 17:37:00 94 /min [facility] Body temperature 2023-09-10 17:37:00 36.39 Maria Dolores [facility] Respiratory rate 2023-09-10 17:37:00 18 /min [facility] Body height 2023-09-10 17:37:00 167.6 cm [facility] Body weight 2023-09-10 17:37:00 107.956 kg [facility] BMI 2023-09-10 17:37:00 38.41 kg/m2 [facility] Systolic blood pressure 2023-09-09 21:55:00 124 mm[Hg] [facility] Diastolic blood pressure 2023-09-09 21:55:00 75 mm[Hg] [facility] Heart rate 2023-09-09 21:55:00 79 /min [facility] Body temperature 2023-09-09 21:55:00 36.39 Maria Dolores [facility] Respiratory rate 2023-09-09 21:55:00 18 /min [facility] Body height 2023-09-09 21:55:00 167.6 cm [facility] Body weight 2023-09-09 21:55:00 106.958 kg [facility] BMI 2023-09-09 21:55:00 38.06 kg/m2 [facility] Systolic blood pressure 2023-09-03 20:25:00 129 mm[Hg] [facility] Diastolic blood pressure 2023-09-03 20:25:00 79 mm[Hg] [facility] Heart rate 2023-09-03 20:25:00 112 /min [facility] Body temperature 2023-09-03 20:25:00 36.44 Maria Dolores [facility] Respiratory rate 2023-09-03 20:25:00 18 /min [facility] Body height 2023-09-03 20:25:00 167.6 cm [facility] Body weight 2023-09-03 20:25:00 107.457 kg [facility] BMI 2023-09-03 20:25:00 38.24 kg/m2 [facility] Systolic blood pressure 2023-09-01 20:02:00 128 mm[Hg] [facility] Diastolic blood pressure 2023-09-01 20:02:00 76 mm[Hg] [facility] Heart rate 2023-09-01 20:02:00 99 /min [facility] Body temperature 2023-09-01 20:02:00 35.72 Maria Dolores [facility] Respiratory rate 2023-09-01 20:02:00 18 /min [facility] Body height 2023-09-01 20:02:00 167.6 cm [facility] Body weight 2023-09-01 20:02:00 108.682 kg [facility] BMI 2023-09-01 20:02:00 38.67 kg/m2 [facility] Systolic blood pressure 2023-08-26 21:45:00 114 mm[Hg] [facility] Diastolic blood pressure 2023-08-26 21:45:00 71 mm[Hg] [facility] Heart rate 2023-08-26 21:45:00 98 /min [facility] Body temperature 2023-08-26 21:45:00 35.94 Maria Dolores [facility] Respiratory rate 2023-08-26 21:45:00 18 /min [facility] Body height 2023-08-26 21:45:00 167.6 cm [facility] Body weight 2023-08-26 21:45:00 106.505 kg [facility] BMI 2023-08-26 21:45:00 37.90 kg/m2 [facility] Systolic blood pressure 2023-08-11 16:22:00 118 mm[Hg] [facility] Diastolic blood pressure 2023-08-11 16:22:00 63 mm[Hg] [facility] Heart rate 2023-08-11 16:22:00 98 /min [facility] Body temperature 2023-08-11 16:22:00 35.61 Maria Dolores [facility] Respiratory rate 2023-08-11 16:22:00 18 /min [facility] Body height 2023-08-11 16:22:00 167.6 cm [facility] Body weight 2023-08-11 16:22:00 104.781 kg [facility] BMI 2023-08-11 16:22:00 37.28 kg/m2 [facility] Systolic blood pressure 2023-08-03 02:00:00 113 mm[Hg] [facility] Diastolic blood pressure 2023-08-03 02:00:00 54 mm[Hg] [facility] Heart rate 2023-08-03 02:00:00 86 /min [facility] in Arterial blood by Pulse oximetry 2023-08-03 02:00:00 100 /min [facility] Body temperature 2023-08-03 01:00:00 36.67 Maria Dolores [facility] Respiratory rate 2023-08-03 01:00:00 17 /min [facility] Body height 2023-08-02 23:39:00 167.6 cm [facility] Body weight 2023-08-02 23:39:00 104.781 kg [facility] BMI 2023-08-02 23:39:00 37.28 kg/m2 [facility] Systolic blood pressure 2023-07-29 21:49:00 130 mm[Hg] [facility] Diastolic blood pressure 2023-07-29 21:49:00 71 mm[Hg] [facility] Heart rate 2023-07-29 21:49:00 93 /min [facility] Body temperature 2023-07-29 21:49:00 36.06 Maria Dolores [facility] Respiratory rate 2023-07-29 21:49:00 18 /min [facility] Body height 2023-07-29 21:49:00 170.2 cm [facility] Body weight 2023-07-29 21:49:00 104.838 kg [facility] BMI 2023-07-29 21:49:00 36.20 kg/m2 [facility] Systolic blood pressure 2023-07-19 04:30:00 105 mm[Hg] [facility] Diastolic blood pressure 2023-07-19 04:30:00 56 mm[Hg] [facility] Heart rate 2023-07-19 04:30:00 92 /min [facility]xygen saturation in Arterial blood by Pulse oximetry 2023-07-19 04:30:00 100 /min [facility] Body temperature 2023-07-19 02:54:00 37.17 Maria Dolores [facility] Respiratory rate 2023-07-19 02:54:00 18 /min [facility] Body weight 2023-07-19 02:54:00 102.967 kg [facility] BMI 2023-07-19 02:54:00 35.55 kg/m2 [facility] Body height 2023-07-19 02:25:00 170.2 cm [facility] Systolic blood pressure 2023-07-12 19:39:00 120 mm[Hg] [facility] Diastolic blood pressure 2023-07-12 19:39:00 69 mm[Hg] [facility] Heart rate 2023-07-12 19:39:00 100 /min [facility] Body temperature 2023-07-12 19:39:00 36.11 Maria Dolores [facility] Respiratory rate 2023-07-12 19:39:00 18 /min [facility] Body height 2023-07-12 19:39:00 170.2 cm [facility] Body weight 2023-07-12 19:39:00 103.902 kg [facility] BMI 2023-07-12 19:39:00 35.88 kg/m2 [facility] Systolic blood pressure 2023-06-30 20:29:00 108 mm[Hg] [facility] Diastolic blood pressure 2023-06-30 20:29:00 65 mm[Hg] [facility] Heart rate 2023-06-30 20:29:00 88 /min [facility] Body temperature 2023-06-30 20:29:00 36.28 Maria Dolores [facility] Respiratory rate 2023-06-30 20:29:00 18 /min [facility] Body height 2023-06-30 20:29:00 170.2 cm [facility] Body weight 2023-06-30 20:29:00 103.505 kg [facility] BMI 2023-06-30 20:29:00 35.74 kg/m2 [facility] Systolic blood pressure 2023-06-02 19:46:00 99 mm[Hg] [facility] Diastolic blood pressure 2023-06-02 19:46:00 64 mm[Hg] [facility] Heart rate 2023-06-02 19:46:00 93 /min [facility] Body temperature 2023-06-02 19:46:00 35.94 Maria Dolores [facility] Respiratory rate 2023-06-02 19:46:00 20 /min [facility] Body height 2023-06-02 19:46:00 170.2 cm [facility] Body weight 2023-06-02 19:46:00 102.626 kg [facility] BMI 2023-06-02 19:46:00 35.44 kg/m2 [facility] Systolic blood pressure 2023-05-05 19:09:00 109 mm[Hg] [facility] Diastolic blood pressure 2023-05-05 19:09:00 58 mm[Hg] [facility] Heart rate 2023-05-05 19:09:00 89 /min [facility] Body temperature 2023-05-05 19:09:00 36.56 Maria Dolores [facility] Respiratory rate 2023-05-05 19:09:00 18 /min [facility] Body height 2023-05-05 19:09:00 170.2 cm [facility] Body weight 2023-05-05 19:09:00 100.33 kg [facility] BMI 2023-05-05 19:09:00 34.64 kg/m2 [facility] Systolic blood pressure 2023-04-08 19:36:00 110 mm[Hg] [facility] Diastolic blood pressure 2023-04-08 19:36:00 58 mm[Hg] [facility] Heart rate 2023-04-08 19:36:00 92 /min [facility] Body temperature 2023-04-08 19:36:00 36.5 Maria Dolores [facility] Respiratory rate 2023-04-08 19:36:00 17 /min [facility] Body height 2023-04-08 19:36:00 170.2 cm [facility] Body weight 2023-04-08 19:36:00 98.612 kg [facility] BMI 2023-04-08 19:36:00 34.05 kg/m2 [facility] Systolic blood pressure 2023-03-11 19:19:00 122 mm[Hg] [facility] Diastolic blood pressure 2023-03-11 19:19:00 78 mm[Hg] [facility] Heart rate 2023-03-11 19:19:00 97 /min [facility] Body temperature 2023-03-11 19:19:00 36.5 Maria Dolores [facility] Respiratory rate 2023-03-11 19:19:00 20 /min [facility] Body height 2023-03-11 19:19:00 170.2 cm [facility] Body weight 2023-03-11 19:19:00 98.998 kg [facility] BMI 2023-03-11 19:19:00 34.18 kg/m2 [facility] Systolic blood pressure 2023-03-02 01:19:00 109 mm[Hg] [facility] Diastolic blood pressure 2023-03-02 01:19:00 64 mm[Hg] [facility] Heart rate 2023-03-02 01:19:00 93 /min [facility] Respiratory rate 2023-03-02 01:19:00 18 /min [facility] Oxygen saturation in Arterial blood by Pulse oximetry 2023-03-02 01:19:00 99 /min [facility] Body temperature 2023-03-02 00:12:00 37.5 Maria Dolores [facility] Body height 2023-03-02 00:12:00 170.2 cm [facility] Body weight 2023-03-02 00:12:00 99.791 kg [facility] BMI 2023-03-02 00:12:00 34.46 kg/m2 [facility] Systolic blood pressure 2023-02-11 13:46:00 101 mm[Hg] [facility] Diastolic blood pressure 2023-02-11 13:46:00 70 mm[Hg] [facility] Heart rate 2023-02-11 13:46:00 83 /min [facility] Body temperature 2023-02-11 13:46:00 36.39 Maria Dolores [facility] Respiratory rate 2023-02-11 13:46:00 18 /min [facility] Body height 2023-02-11 13:46:00 167.6 cm [facility] Body weight 2023-02-11 13:46:00 101.294 kg [facility] BMI 2023-02-11 13:46:00 36.04 kg/m2 [facility] Systolic blood pressure 2022-12-30 21:39:00 114 mm[Hg] [facility] Diastolic blood pressure 2022-12-30 21:39:00 72 mm[Hg] [facility] Heart rate 2022-12-30 21:39:00 75 /min [facility] Body temperature 2022-12-30 21:39:00 36.67 Maria Dolores [facility] Respiratory rate 2022-12-30 21:39:00 16 /min [facility] Body height 2022-12-30 21:39:00 170.2 cm [facility] Body weight 2022-12-30 21:39:00 102.513 kg [facility] BMI 2022-12-30 21:39:00 35.40 kg/m2 [facility] Oxygen saturation in Arterial blood by Pulse oximetry 2022-12-30 21:39:00 97 /min [facility] Systolic blood pressure 2022-05-18 14:11:00 105 mm[Hg] [facility] Diastolic blood pressure 2022-05-18 14:11:00 68 mm[Hg] [facility] Heart rate 2022-05-18 14:11:00 84 /min [facility] Body temperature 2022-05-18 14:11:00 37.44 Maria Dolores [facility] Respiratory rate 2022-05-18 14:11:00 16 /min [facility] Body height 2022-05-18 14:11:00 167.6 cm [facility] Body weight 2022-05-18 14:11:00 96.888 kg [facility] BMI 2022-05-18 14:11:00 34.48 kg/m2 [facility] Oxygen saturation in Arterial blood by Pulse oximetry 2022-05-18 14:11:00 98 /min [facility] Systolic blood pressure 2022-03-06 19:08:00 120 mm[Hg] [facility] Diastolic blood pressure 2022-03-06 19:08:00 80 mm[Hg] [facility] Heart rate 2022-03-06 19:08:00 96 /min [facility] Body temperature 2022-03-06 19:08:00 36.89 Maria Dolores [facility] Respiratory rate 2022-03-06 19:08:00 18 /min [facility] Body height 2022-03-06 19:08:00 167.6 cm [facility] Body weight 2022-03-06 19:08:00 97.523 kg [facility] BMI 2022-03-06 19:08:00 34.70 kg/m2 [facility] Oxygen saturation in Arterial blood by Pulse oximetry 2022-03-06 19:08:00 98 /min [facility] Systolic (mm Hg) 2018-07-22 19:45:00 [facility] Height 2018-07-22 19:45:00 [facility] [place] [facility] 2018-07-22 [facility] Oral (F[facility] 2018-07-22 19:45:00 [facility].0 F [facility] Diastolic (mm Hg) 2018-07-22 19:45:00 [facility] Procedures Procedure Date / Time Performed Performing Clinician Source VITAMIN B12, LEVEL 2024-01-05 16:04:00 Catalina Stapleton [facility] INSULIN, LEVEL 2024-01-05 16:04:00 Catalina Stapleton [facility] COMP. METABOLIC PANEL (13673) 2024-01-05 16:04:00 Catalina Stapleton [facility] GLYCOSYLATED HEMOGLOBIN (A1C) 2024-01-05 16:04:00 Catalina Stapleton [facility] VITAMIN D, 25-OH 2024-01-05 16:04:00 Catalina Stapleton [facility] GARDASIL 9 (HPV 9V) VACCINE 2023-11-02 16:29:57 Reyes Richards [facility] DISABILITY/FMLA 2023-10-04 06:01:00 Doctor Unass igned, [place] [facility] CBC WITH DIFF 2023-09-17 11:08:00 Melba Iraheta Susy [facility] CBC WITH DIFF 2023-09-17 11:08:00 Melba Iraheta Susy [facility] CBC WITH DIFF 2023-09-16 22:52:00 Pedro Collins [facility] CBC WITH DIFF 2023-09-16 22:52:00 Pedro Collins [facility] POCT GLUCOSE (AUTOMATED) 2023-09-16 21:09:00 Sulema Jurado [facility] POCT GLUCOSE (AUTOMATED) 2023-09-16 21:09:00 Sulema Jurado [facility] VENOUS CORD GAS 2023-09-16 12:19:00 JenusaChai deunas [facility] VENOUS CORD GAS 2023-09-16 12:19:00 JenChai hardwick [facility] SECTION 2023-09-16 11:39:00 Bharti Diaz [facility] SECTION 2023-09-16 11:39:00 Bharti Diaz [facility] CENTRAL NEURAXIAL BLOCK 2023-09-16 08:10:00 Dutch Newberry [facility] CBC WITH DIFF 2023-09-15 23:24:00 JenusaChai duenas [facility] HEPATITIS B SURFACE ANTIGEN 2023-09-15 23:24:00 Chai Byrnes [facility] HB ABO GROUPING 2023-09-15 23:24:00 JenusaChai duenas [facility] RHO (D) IMMUNE GLOBULIN 2023-09-15 23:24:00 Katherine Iraheta ndpaul [facility] HIV 1/2 AG-AB WITH REFLEX 2023-09-15 23:24:00 Jenusait is, [facility] SYPHILIS IGG/IGM 2023-09-15 23:24:00 Jenusaitis, [facility] CBC WITH DIFF 2023-09-15 23:24:00 Jenusaitis, Chai [facility] HEPATITIS B SURFACE ANTIGEN 2023-09-15 23:24:00 Jenusaitis, [facility] HB ABO GROUPING 2023-09-15 23:24:00 Jenusaitis, Chai U [facility] RHO (D) IMMUNE GLOBULIN 2023-09-15 23:24:00 Katherine Iraheta ndpaul [facility] HIV 1/2 AG-AB WITH REFLEX 2023-09-15 23:24:00 Jenusait is, [facility] SYPHILIS IGG/IGM 2023-09-15 23:24:00 Jenusaitis, [facility] SGOT (ASPARTATE AMINO TRANSFER) 2023-09-15 21:29:00 Sharad [facility] CREATININE 2023-09-15 21:29:00 Java [facility] ALANINE AMINO TRANSFERASE(SGPT 2023-09-15 21:29:00 Java [facility] LACTATE DEHYDROGENASE 2023-09-15 21:29:00 Java [facility] URIC ACID 2023-09-15 21:29:00 Java [facility] THYROID STIMULATING HORMONE 2023-09-15 21:29:00 Stone, [facility] CBC WITH DIFF 2023-09-15 21:29:00 Sharad [facility] URINALYSIS 2023-09-15 21:29:00 Java [facility] PROTEIN CREAT RATIO URINE RANDOM 2023-09-15 21:29:00 Sharad [facility] SGOT (ASPARTATE AMINO TRANSFER) 2023-09-15 21:29[facility]00 [facility]23-09-15 21:29:00 Sharad [facility] ALANINE AMINO TRANSFERASE(SGPT 2023-09-15 21:29:00 Stone [facility] LACTATE DEHYDROGENASE 2023-09-15 21:29:00 Alessia Orourke [facility] URIC ACID 2023-09-15 21:29:00 Sharad [facility] THYROID STIMULATING HORMONE 2023-09-15 21:29:00 Stone [facility] CBC WITH DIFF 2023-09-15 21:29:[facility]23-09-15 21:29:00 Sharad [facility] PROTEIN CREAT RATIO URINE RANDOM 2023-09-15 21:29:00 Sharad [facility] POCT URINALYSIS 2023-09-15 16:47:00 Zoe Goodman [facility] SGOT (ASPARTATE AMINO TRANSFER) 2023-09-10 23:13:00 Amrit [facility] CREATININE 2023-09-10 23:13:00 Amrit [facility] ALANINE AMINO TRANSFERASE(SGPT 2023-09-10 23:13:00 [facility] LACTATE DEHYDROGENASE 2023-09-10 23:13[facility]00 [facility] URIC ACID 2023-09-10 23:13:00 [facility] 2023-09-10 23:13:00 Amrit [facility] NON-STRESS TEST 2023-09-10 22:02:19 Anton Richards [facility] POCT URINALYSIS 2023-09-10 17:38:00 Zoe Goodman [facility] POCT URINALYSIS 2023-09-09 21:56:00 Zoe Goodman [facility] CBC WITH DIFF 2023-09-09 21:50:00 Reyes Richards [facility] POCT URINALYSIS 2023-09-03 20:28:00 Zoe Goodman [facility] SECOND AND THIRD TRIMESTER ULTRASOUND 2023-09-02 14:29:00 Zoe Goodman [facility] POCT URINALYSIS 2023-09-01 20:07:00 Zoe Goodman [facility] PATIENT CORRESPONDENCE (LETTERS, USPS DOCUMENTATION) 2023-08-27 06:01:00 Doctor Unassigned, [place] [facility] DME/SUPPLY JUSTIFICATION 2023-08-18 06:01:00 Doc tor Unassigned, [place] [facility] POCT URINALYSIS 2023-08-11 16:25:00 Zoe Goodman [facility] TDAP VACCINE, >11 YRS, IM 2023-08-11 16:23:00 Reyes Richards [facility] POCT URINALYSIS 2023-07-29 21:56:00 Zoe Goodman [facility] NOTICE OF PRIVACY PRACTICES 2023-07-19 02:17:11 Doctor Unassigned, [place] [facility] CONSENT/REFUSAL FOR DIAGNOSIS AND TREATMENT 2023-07-19 02:14:45 Doctor Unassigned, [place] [facility] L&D VISIT (NON-DELIVERED) 2023-07-18 06:01:00 Do ctor Unassigned, [place] [facility] POCT URINALYSIS 2023-07-12 22:40:00 Zoe Goodman [facility] POCT URINALYSIS 2023-07-12 22:39:00 Zoe Goodman [facility] GLUCOSE 1 HOUR POST PRANDIAL 2023-07-12 08:40:00 Zoe Goodman [facility] CBC WITH DIFF 2023-07-12 08:40:00 Zoe Goodman [facility] POCT URINALYSIS 2023-06-30 20:30:00 Zoe Goodman [facility] POCT URINALYSIS 2023-06-02 19:47:00 Zoe Goodman [facility] SECOND AND THIRD TRIMESTER ULTRASOUND 2023-05-19 20:34:00 Zoe Goodman [facility] ALPHA FETOPROTEIN-MATERNAL SER 2023-05-05 19:56:00 Zoe Goodman [facility] POCT URINALYSIS 2023-05-05 19:08:00 Zoe Goodman [facility] URINE CULTURE 2023-04-08 21:14:00 Zoe Goodman [facility] [facility] POCT URINALYSIS 2023-04-08 00:00:00 Zoe Goodman [facility] FIRST TRIMESTER ULTRASOUND 2023-03-29 16:51:00 Zoe Goodman [facility] POCT URINALYSIS 2023-03-11 19:22:00 Zoe Goodman [facility] FIRST TRIMESTER ULTRASOUND 2023-03-03 20:33:00 Zoe Goodman [facility] POCT TEST 2023-03-02 00:21:00 Fito Colon [facility] URINALYSIS 2023-03-02 00:20[facility]00 [facility]AC[facility] PRACT[facility] 2023-03-01 23:58:05 Doctor Unassigned, [place] [facility] CONSENT/REFUSAL FOR DIAGNOSIS AND TREATMENT 2023-03-01 23:57:09 Doctor Unassigned, [place] [facility] GLUCOSE 1 HOUR POST PRANDIAL 2023-02-11 14:45:00 Zoe Goodman [facility] COMP. METABOLIC PANEL (50932) 2023-02-11 14:45:00 Zoe Goodman [facility] CBC WITH DIFF 2023-02-11 14:45:00 Zoe Goodman [facility] RUBELLA SCREEN IGG 2023-02-11 14:45:00 Melba Goodman [facility] VZV ANTIBODY SCREEN 2023-02-11 14:45:00 Ila Goodman [facility] HEPATITIS B SURFACE ANTIGEN 2023-02-11 14:45:00 Zoe Goodman [facility] HCV ANTIBODY 2023-02-11 14:45:00 Zoe Goodman [facility] HB ABO GROUPING 2023-02-11 14:45:00 Zoe Goodman [facility] GC & CHLAMYDIA AMPLIFIED ASSAY 2023-02-11 14:45:00 Zoe Goodman [facility] HIV 1/2 AG-AB WITH REFLEX 2023-02-11 14:45:00 Zoe Valles [facility] TRICHOMONAS AMPLIFIED ASSAY 2023-02-11 14:45:00 Zoe Goodman [facility] PAP SMEAR-LIQUID BASED-CP 2023-02-11 14:45:00 Zoe Valles [facility] SYPHILIS IGG/IGM 2023-02-11 14:45:00 Zoe Goodman [facility] REPORT OF 2023-02-11 05:01:00 Doctor Natividad mueller, [place] [facility] POCT TEST 2023-02-11 00:00:00 Ila Goodman [facility] POCT URINALYSIS W/O SPECIFIC GRAVITY 2023-02-11 00:00:00 Zoe Goodman [facility] CONSENT/REFUSAL FOR DIAGNOSIS AND TREATMENT 2022-12-30 21:28:46 Doctor Unassigned, [place] [facility] POCT MOLECULAR STREP 2022-05-18 14:10:00 Rhonda Guerra [facility] POCT TEST 2022-03-06 19:13:00 Christine Pena [facility] Encounters Start Date/Time End Date/Time Encounter Type Admission Type Attending Clinicians Care Facility Care Department Encounter ID Source 2023-09-10 19:59:00 Outpatient P DCMB TRIC[facility] [id number] [facility] 2021-06-09 05:16:59 Emergency [facility] [id number] [facility] 2021-06-08 22:32:58 Outpatient P [facility] TRICIA [id number] [facility] 2021-06-08 22:28:29 Outpatient P [facility] TR[facility] [id number] [facility] 2021-06-05 20:18:29 Emergency [facility] [id number] [facility] 2021-06-05 13:56:05 Outpatient P [facility] TRICIA [id number] [facility] 2021-06-05 13:52:44 Outpatient P [facility] [id number] [facility] 2021-06-05 13:52:37 Emergency [facility] [id number] [facility] 2024-11-28 16:37:06 2024-11-28 16:37:06 Outpatient [facility] [id number] Bib García 2024-07-04 18:00:00 2024-07-04 18:20:00 Urgent Care Jama Denney Unknown, Attending [facility] 1.2.840.114 350.1.13.10 4.2.7.2.686 [id number] [facility] 2024-07-04 18:00:00 2024-07-04 18:00:00 Outpatient JAMA CABRERA [facility] [id number] [facility] 2024-07-04 00:00:00 2024-07-04 17:08:54 Nurse Triage Blaire Tapia Jenny L [facility] 1.2.840.114 350.1.13.10 4.2.7.2.686 [id number] [facility] 2024 09:30:00 2024 09:30:00 Outpatient CATALINA HURST [facility] [id number] [facility] 2024-01-04 00:00:00 2024-02-05 18:18:25 Patient Secure Reyes Yates [facility] CAFE ASSOCIATE [facility] MATERNAL & CHILD [facility] 1.2.840.114 350.1.13.10 4.2.7.2.686 [id number] [facility] 2024-01-22 20:00:00 2024-01-22 20:20:00 Urgent Care Monty Cabrera Unknown, Attending [facility] 1.2.840.114 350.1.13.10 4.2.7.2.686 [id number] [facility] 2024-01-22 20:00:00 2024-01-22 20:00:00 Outpatient R MONTY CABRERA [facility] [id number] [facility] 2024-01-06 00:00:00 2024-01-10 11:12:50 Patient Secure Msg Catalina Stapleton [facility] 1.2.840.114 350.1.13.10 4.2.7.2.686 [id number] [facility] 2024-01-05 00:00:00 2024-01-05 16:14:26 Patient Secure Msg Doctor Unassigned, [place] [facility] 1.2.840.114 350.1.13.10 4.2.7.2.686 [id number] [facility] 2024-01-05 11:00:00 2024-01-05 11:08:18 Senior Ui Developer Visit Lab, Jonathan Stapleton Catalina [facility] 1..840.114 350.1.13.10 4.2.7.2.686 [id number] [facility] 2024-01-05 10:30:00 2024-01-05 10:53:25 Outpatient R CATALINA STAPLETON [facility] [id number] [facility] 2024-01-05 10:30:00 2024-01-05 10:53:25 Office Visit Catalina Stapleton [facility] 1.2.840.114 350.1.13.10 4.2.7.2.686 [id number] [facility] 2024-01-04 00:00:00 2024-01-04 11:17:53 Telephone Catalina Stapleton [facility] 1.284.114 350.1.13.10 4.2.7.2.686 [id number] [facility] 2023-12-16 07:30:00 2023-12-16 07:30:00 Outpatient R CAPRICE STOVER [facility] [id number] [facility] 2023-12-13 00:00:00 2023-12-13 15:06:54 Telephone Caprice Stover [facility] 1..840.114 350.1.13.10 4.2.7.2.686 [id number] [facility] 2023-11-28 00:00:00 2023-11-28 00:00:00 Zoe Vegas [facility] CAFE ASSOCIATE [facility] & CHILD [facility] 1..840.114 350.1.13.10 4.2.7.2.686 [id number] [facility] 2023-11-08 00:00:00 2023-11-08 00:00:00 Telephone Reyes Richards [facility] CAFE ASSOCIATE [facility] & CHILD [facility] 1.2.840.114 350.1.13.10 4.2.7.2.686 [id number] [facility] 2023-11-02 11:00:00 2023-11-02 11:29:39 Outpatient R REYES RICHARDS [facility] [id number] [facility] 2023-11-02 11:00:00 2023-11-02 11:29:39 Office Visit Reyes Richards [facility] CAFE ASSOCIATE [facility] & CHILD [facility] 1.2.840.114 350.1.13.10 4.2.7.2.686 [id number] [facility] 2023-10-28 10:30:00 2023-10-28 10:30:00 Outpatient ZOE PARK [facility] [id number] [facility] 2023-10-25 08:00:00 2023-10-25 08:00:00 Outpatient REYES DHLAIWAL [facility] [id number] [facility] 2023-10-19 00:00:00 2023-10-19 00:00:00 Telephone Reyes Richards [facility] CAFE ASSOCIATE [facility] & CHILD [facility] 1.2.840.114 350.1.13.10 4.2.7.2.686 [id number] [facility] 2023-10-14 00:00:00 2023-10-14 00:00:00 Telephone Reyes Richards [facility] CAFE ASSOCIATE [facility] & CHILD [facility] 1.2.840.114 350.1.13.10 4.2.7.2.686 [id number] [facility] 2023-10-04 00:00:00 2023-10-04 00:00:00 Orders Only Doctor Unassigned, [place] [facility] 1.2.840.114 350.1.13.10 4.2.7.2.686 [id number] [facility] 2023-09-24 13:00:00 2023-09-24 13:07:23 Outpatient ZOE PARK [facility] [id number] [facility] 2023-09-24 13:00:00 2023-09-24 13:07:23 Nurse Visit Visit, Ang-Rmchp Nurse Zoe Goodman [facility] CAFE ASSOCIATE [facility] & CHILD [facility] 1.2.840.114 350.1.13.10 4.2.7.2.686 [id number] [facility] 2023-09-23 14:00:00 2023-09-23 14:00:00 Outpatient R [facility] [id number] [facility] 2023-09-22 09:00:00 2023-09-22 09:00:00 Outpatient R [facility] [id number] [facility] 2023-09-21 00:00:00 2023-09-21 00:00:00 Patient Secure Msg Daniellejose mReyes garcia [facility] CAFE ASSOCIATE [facility] & CHILD [facility] 1.2.840.114 350.1.13.10 4.2.7.2.686 [id number] [facility] 2023-09-20 00:00:00 2023-09-20 00:00:00 Nurse Triage Alma Delia Smith [facility] 1.2840.114 350.1.13.10 4.2.7.2.686 [id number] [facility] 2023-09-15 14:09:00 2023-09-19 13:41:00 Inpatient P ALLENJASON EMI [facility] TR[facility] [id number] [facility] 2023-09-15 14:09:00 2023-09-19 13:41:00 Hospital Encounter [facility] 1.840.114 350.1.13.10 4.2.7.2.686 [id number] [facility] 2023-09-16 13:00:00 2023-09-16 13:00:00 Outpatient P [facility] [id number] [facility] 2023-09-16 06:00:00 2023-09-16 07:53:00 Surgery Joe Bharti [facility] 1.2840.114 350.1.13.10 4.2.7.2.686 [id number] [facility] 2023-09-16 01:20:00 2023-09-16 07:04:00 Anesthesia Event Bulmaro Newberry Rakesh B [facility] 1.2840.114 350.1.13.10 4.2.7.2.686 [id number] [facility] 2023-09-15 10:45:00 2023-09-15 11:00:00 Routine Visit Reyes Richards [facility] CAFE ASSOCIATE [facility] & CHILD [facility] 1.840.114 350.1.13.10 4.2.7.2.686 [id number] [facility] 2023-09-15 10:45:00 2023-09-15 10:45:00 Outpatient R REYES RICHARDS [facility] [id number] [facility] 2023-09-15 09:45:00 2023-09-15 10:20:23 Outpatient R SHANNAN VIRK [facility] [id number] [facility] 2023-09-15 09:45:00 2023-09-15 10:20:23 Routine Visit Risk, Ang-Rmchp-N p/High Shannan Virk [facility] CAFE ASSOCIATE [facility] MATERNAL & CHILD [facility] 1.2840.114 350.1.13.10 4.2.7.2.686 [id number] [facility] 2023-09-15 00:00:00 2023-09-15 00:00:00 Telephone Zoe Goodman [facility] CAFE ASSOCIATE [facility] MATERNAL & CHILD [facility] 1.2.840.114 350.1.13.10 4.2.7.2.686 [id number] [facility] 2023-09-10 15:02:00 2023-09-10 19:58:00 Outpatient P HANNAH DANG HANNAH [facility] [id number] [facility] 2023-09-10 15:02:00 2023-09-10 19:58:00 Hospital Encounter AltonHannah [facility] 1.840.114 350.1.13.10 4.2.7.2.686 [id number] [facility] 2023-09-10 13:00:00 2023-09-10 13:00:00 Routine Visit Reyes Richards [facility] CAFE ASSOCIATE [facility] & CHILD [facility] 1.840.114 350.1.13.10 4.2.7.2.686 [id number] [facility] 2023-09-10 13:00:00 2023-09-10 12:17:44 Outpatient R REYES RICHARDS [facility] [id number] [facility] 2023-09-10 00:00:00 2023-09-10 00:00:00 Telephone Reyes Richards [facility] CAFE ASSOCIATE [facility] & CHILD [facility] 1.0.114 350.1.13.10 4.2.7.2.686 [id number] [facility] 2023-09-10 00:00:00 2023-09-10 00:00:00 Nurse Triage Velia Mackenzie [facility] 1.840.114 350.1.13.10 4.2.7.2.686 [id number] [facility] 2023-09-10 00:00:00 2023-09-10 00:00:00 Telephone Reyes Richards [facility] CAFE ASSOCIATE [facility] & CHILD [facility] 1.840.114 350.1.13.10 4.2.7.2.686 [id number] [facility] 2023-09-09 15:45:00 2023-09-09 16:18:01 Outpatient R REYES RICHARDS [facility] [id number] [facility] 2023-09-09 15:45:00 2023-09-09 16:18:01 Routine Visit SusieReyes Phu [facility] CAFE ASSOCIATE [facility] & CHILD [facility] 1.2.840.114 350.1.13.10 4.2.7.2.686 [id number] [facility] 2023-09-09 00:00:00 2023-09-09 00:00:00 Nurse Triage Lorena Gleason [facility] 1.2840.114 350.1.13.10 4.2.7.2.686 [id number] [facility] 2023-09-09 00:00:00 2023-09-09 00:00:00 Telephone Sabino Richardsilola Phu [facility] CAFE ASSOCIATE [facility] & CHILD [facility] 1.2840.114 350.1.13.10 4.2.7.2.686 [id number] [facility] 2023-09-03 15:30:00 2023-09-03 15:30:00 Routine Visit Daniellejose mSabino garciaReyes Phu [facility] CAFE ASSOCIATE [facility] & CHILD [facility] 1.2.840.114 350.1.13.10 4.2.7.2.686 [id number] [facility] 2023-09-03 15:30:00 2023-09-03 14:42:39 Outpatient R REYES RCIHARDS [facility] [id number] [facility] 2023-09-03 00:00:00 2023-09-03 00:00:00 Nurse Triage Alma Delia Smith [facility] 1.840.114 350.1.13.10 4.2.7.2.686 [id number] [facility] 2023-09-03 00:00:00 2023-09-03 00:00:00 Telephone Reyes Richards [facility] CAFE ASSOCIATE [facility] & CHILD [facility] 1..840.114 350.1.13.10 4.2.7.2.686 [id number] [facility] 2023-09-02 08:00:00 2023-09-02 08:27:59 Outpatient P HANNAH DANG SHANNON [facility] [id number] [facility] 2023-09-02 08:00:00 2023-09-02 08:27:59 Senior Ui Developer Visit Ultrasound, Hannah Mi [facility] CAFE ASSOCIATE [facility] & CHILD [facility] 1..840.114 350.1.13.10 4.2.7.2.686 [id number] [facility] 2023-09-02 00:00:00 2023-09-02 00:00:00 Case Management Zoe Goodman [facility] CAFE ASSOCIATE [facility] & CHILD [facility] 1..840.114 350.1.13.10 4.2.7.2.686 [id number] [facility] 2023-09-01 13:45:00 2023-09-01 14:54:59 Outpatient R SHANNAN VIRK [facility] [id number] [facility] 2023-09-01 13:45:00 2023-09-01 14:54:59 Routine Visit Risk, Jonathan-Rmchp-N p/High Shannan Virk [facility] CAFE ASSOCIATE [facility] & CHILD [facility] 1..840.114 350.1.13.10 4.2.7.2.686 [id number] 107 [id number] [facility] 2023-08-27 00:00:00 2023-08-27 00:00:00 Orders Only Doctor Unassigned, [place] [facility] 1..840.114 350.1.13.10 4.2.7.2.686 [id number] [facility] 2023-08-26 15:30:00 2023-08-26 16:11:06 Outpatient R BRIDGERRADHAREYES [facility] [id number] [facility] 2023-08-26 15:30:00 2023-08-26 16:11:06 Routine Visit Daniellejose mSabino garciaReyes Phu [facility] CAFE ASSOCIATE [facility] & CHILD [facility] 1.840.114 350.1.13.10 4.2.7.2.686 [id number] [facility] 2023-08-25 15:15:00 2023-08-25 15:15:00 Outpatient R DANIELLENANCY REYES [facility] [id number] [facility] 2023-08-18 00:00:00 2023-08-18 00:00:00 Orders Only Doctor Unassigned, [place] [facility] 1..840.114 350.1.13.10 4.2.7.2.686 [id number] [facility] 2023-08-11 10:00:00 2023-08-11 10:47:14 Outpatient R DANIELLENANCY REYES [facility] [id number] [facility] 2023-08-11 10:00:00 2023-08-11 10:47:14 Routine Visit Bridgerradha Reyes Phu [facility] CAFE ASSOCIATE [facility] 1..840.114 350.1.13.10 4.2.7.2.686 [id number] 107 [id number] [facility] 2023-08-02 17:48:00 2023-08-02 20:20:00 Outpatient X [facility]ERRA-GR[facility] S, BETTIE RIGO-GRACIELA S, BETTIE [facility] TRICIA [id number] [facility] 2023-08-02 17:48:00 2023-08-02 20:20:00 Emergency Sierra-Graciela s, Bettie [facility] 1.2.840.114 350.1.13.10 4.2.7.2.686 [id number] [facility] 2023-08-02 00:00:00 2023-08-02 00:00:00 Nurse Triage Toshia Tan [facility] 1.2840.114 350.1.13.10 4.2.7.2.686 [id number] [facility] 2023-07-29 15:45:00 2023-07-29 16:04:58 Outpatient R REYES RICHARDS [facility] [id number] [facility] 2023-07-29 15:45:00 2023-07-29 16:04:58 Routine Visit Reyes Richards [facility] CAFE ASSOCIATE [facility] MATERNAL & CHILD [facility] 1.2840.114 350.1.13.10 4.2.7.2.686 [id number] [facility] 2023-07-18 20:32:00 2023-07-18 22:40:00 Outpatient X [facility]-GR[facility]A S, BETTIE [facility], BETTIE [facility] [id number] [facility] 2023-07-18 20:32:00 2023-07-18 22:40:00 Emergency Jose Arceo Sierra-Graciela s, Bettie [facility] 1.2840.114 350.1.13.10 4.2.7.2.686 [id number] [facility] 2023-07-18 00:00:00 2023-07-18 00:00:00 Nurse Triage Jayde Nation [facility] 1.840.114 350.1.13.10 4.2.7.2.686 [id number] [facility] 2023-07-13 00:00:00 2023-07-13 00:00:00 Case Management Zoe Goodman [facility] CAFE ASSOCIATE [facility] CHILD [facility] 1.2.840.114 350.1.13.10 4.2.7.2.686 [id number] [facility] 2023-07-12 13:45:00 2023-07-12 14:01:59 Outpatient R REYES RICHARDS [facility] [id number] [facility] 2023-07-12 13:45:00 2023-07-12 14:01:59 Routine Visit Reyes Richards [facility] CAFE ASSOCIATE [facility] CHILD [facility] 1..840.114 350.1.13.10 4.2.7.2.686 [id number] [facility] 2023-07-09 13:30:00 2023-07-09 13:30:00 Outpatient R ZOE GOODMAN [facility] [id number] [facility] 2023-06-30 14:15:00 2023-06-30 15:11:25 Outpatient R ZOE GOODMAN [facility] [id number] [facility] 2023-06-30 14:15:00 2023-06-30 15:11:25 Routine Visit Zoe Goodman [facility] CAFE ASSOCIATE [facility] CHILD [facility] 1..840.114 350.1.13.10 [id number] [id number] [facility] 2023-06-02 14:15:00 2023-06-02 15:28:00 Outpatient R ZOE GOODMAN [facility] [id number] [facility] 2023-06-02 14:15:00 2023-06-02 15:28:00 Routine Visit Zoe Goodman [facility] CAFE ASSOCIATE [facility] MATERNAL & CHILD [facility] [id number] 350.1.13.10 4.2.7.2.686 [id number] [facility] 2023-05-20 00:00:00 2023-05-20 00:00:00 Case Management Ashleyjuan Zoe Salazar [facility] CAFE ASSOCIATE [facility] & CHILD [facility] [id number] 350.1.13.10 [id number] [id number] [facility] 2023-05-19 14:45:00 2023-05-19 16:00:00 Senior Ui Developer Visit Ultrasound, Hannah Mi [facility] CAFE ASSOCIATE [facility] & CHILD [facility] [id number] 350.1.13.10 4.2.7.2.686 [id number] [facility] 2023-05-19 14:45:00 2023-05-19 14:45:00 Outpatient P HANNAH DANG SHANNON [facility] [id number] [facility] 2023-05-05 14:15:00 2023-05-05 14:59:44 Outpatient R ZOE GOODMAN [facility] [id number] [facility] 2023-05-05 14:15:00 2023-05-05 14:59:44 Routine Visit Zoe Goodman [facility] CAFE ASSOCIATE [facility] CHILD [facility] [id number] 350.1.13.10 4.2.7.2.686 [id number] [facility] 2023-04-19 00:00:00 2023-04-19 00:00:00 Telephone Zoe Goodman [facility] CAFE ASSOCIATE [facility] CHILD [facility] [id number] 350.1.13.10 4.2.7.2.686 [id number] [facility] 2023-04-08 14:15:00 2023-04-08 15:04:18 Outpatient R ZOE GOODMAN [facility] [id number] [facility] 2023-04-08 14:15:00 2023-04-08 15:04:18 Routine Visit Zoe Goodman [facility] CAFE ASSOCIATE [facility] CHILD [facility] [id number] 350.1.13.10 4.2.7.2.686 [id number] [facility] 2023-03-30 00:00:00 2023-03-30 00:00:00 Case Management Rex Zoe Lincoln [facility] CAFE ASSOCIATE [facility] CHILD [facility] [id number] 350.1.13.10 4.2.7.2.686 [id number] [facility] 2023-03-29 13:15:00 2023-03-29 13:30:00 Senior Ui Developer Visit Lab, oJnathan-Rmchp Bettemadan Alexa Perez [facility] CAFE ASSOCIATE [facility] CHILD [facility] 1.840.114 350.1.13.10 4.2.7.2.686 [id number] [facility] 2023-03-29 11:15:00 2023-03-29 11:46:14 Outpatient P ALEXA WATKINS [facility] [id number] [facility] 2023-03-29 11:15:00 2023-03-29 11:46:14 Senior Ui Developer Visit Ultrasound, Edelm Alexa Watkins [facility] 1..114 350.1.13.10 4.2.7.2.686 [id number] [facility] 2023-03-29 00:00:00 2023-03-29 00:00:00 Case Management Reyes Richards [facility] CAFE ASSOCIATE [facility] MATERNAL & CHILD [facility] 1.2.840.114 350.1.13.10 4.2.7.2.686 [id number] 107 [id number] [facility] 2023-03-26 00:00:00 2023-03-26 00:00:00 Telephone Zoe Goodman [facility] CAFE ASSOCIATE [facility] & CHILD [facility] 1.2.840.114 350.1.13.10 4.2.7.2.686 [id number] [facility] 2023-03-24 00:00:00 2023-03-24 00:00:00 Telephone Zoe Goodman [facility] CAFE ASSOCIATE [facility] CHILD [facility] 1.2.840.114 350.1.13.10 4.2.7.2.686 [id number] 107 [id number] [facility] 2023-03-23 00:00:00 2023-03-23 00:00:00 Refill Zoe Goodman [facility] CAFE ASSOCIATE [facility] CHILD [facility] 1.2.840.114 350.1.13.10 4.2.7.2.686 [id number] [facility] 2023-03-15 00:00:00 2023-03-15 00:00:00 Telephone Zoe Goodman [facility] CAFE ASSOCIATE [facility] & CHILD [facility] 1.2.840.114 350.1.13.10 4.2.7.2.686 [id number] 107 [id number] [facility] 2023-03-11 14:15:00 2023-03-11 14:52:50 Outpatient R ZOE GOODMAN [facility] [id number] [facility] 2023-03-11 14:15:00 2023-03-11 14:52:50 Routine Visit Zoe Goodman [facility] CAFE ASSOCIATE [facility] & CHILD [facility] 1.2.840.114 350.1.13.10 4.2.7.2.686 [id number] 107 [id number] [facility] 2023-03-04 08:45:00 2023-03-04 08:45:00 Outpatient R [facility] [id number] [facility] 2023-03-04 00:00:00 2023-03-04 00:00:00 Case Management Zoe Goodman [facility] CAFE ASSOCIATE [facility] MATERNAL & CHILD [facility] 1..114 350.1.13.10 4.2.7.2.686 [id number] [facility] 2023-03-04 00:00:00 2023-03-04 00:00:00 Telephone Zoe Goodman [facility] CAFE ASSOCIATE [facility] MATERNAL & CHILD [facility] 1.84.114 350.1.13.10 4.2.7.2.686 [id number] [facility] 2023-03-03 15:30:00 2023-03-03 15:45:33 Outpatient P HANNAH DANG SHANNON [facility] [id number] [facility] 2023-03-03 15:30:00 2023-03-03 15:45:33 Senior Ui 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 Visit 4, [facility] Us Room Hannah Dang [facility] ..114 350.1.13.10 4.2.7.2.686 [id number] [facility] 2023-03-02 00:00:00 2023-03-02 00:00:00 Telephone Zoe Goodman [facility] CAFE ASSOCIATE [facility] & CHILD [facility] 1..114 350.1.13.10 4.2.7.2.686 [id number] [facility] 2023-03-01 19:14:00 2023-03-01 20:36:00 Emergency X KAREN COLON [facility] ERT [id number] [facility] 2023-03-01 19:14:00 2023-03-01 20:36:00 Emergency PatriciamaryannKaren [facility] 1.0.114 350.1.13.10 4.2.7.2.686 [id number] [facility] 2023-03-01 00:00:00 2023-03-01 00:00:00 [facility] CHILD [facility] 1.0.114 350.1.13.10 4.2.7.2.686 [id number] 107 [id number] [facility] 2023-02-27 00:00:00 2023-02-27 00:00:00 Nurse Triage Fermin Pathak [facility] 1..114 350.1.13.10 4.2.7.2.686 [id number] [facility] 2023-02-11 08:45:00 2023-02-11 09:47:24 [facility] [id number] [facility] 2023-02-11 08:45:00 2023-02-11 09:47:24 Initial Visit Zoe Goodman [facility] CAFE ASSOCIATE [facility] 1..114 350.1.13.10 4.2.7.2.686 [id number] 107 [id number] [facility] 2023-02-11 00:00:00 2023-02-11 00:00:00 Orders Only Doctor Unassigned, [place] [facility] 1..114 350.1.13.10 4.2.7.2.686 [id number] [facility] 2023-02-04 08:15:00 2023-02-04 08:15:00 Outpatient R ZOE GOODMAN [facility] [id number] [facility] 2023-01-05 11:00:00 2023-01-05 11:00:00 Outpatient R CATALINA STAPLETON [facility] [id number] [facility] 2022-12-30 16:20:00 2022-12-30 16:49:52 Outpatient R KAYLENE JOHNSTON [facility] [id number] [facility] 2022-12-30 16:20:00 2022-12-30 16:49:52 Urgent Care Kaylene Johnston Unknown, Attending [facility] MED[facility] OFF[facility] BUILDING 1..840.114 350.1.13.10 4.2.7.2.686 [id number] [facility] 2022-12-30 00:00:00 2022-12-30 00:00:00 Orders Only Doctor Unassigned, [place] [facility] 1..840.114 350.1.13.10 4.2.7.2.686 [id number] [facility] 2022-12-25 00:00:00 2022-12-25 00:00:00 Refill Celsosalazar Catalina [facility] OFF[facility] 1..840.114 350.1.13.10 4.2.7.2.686 [id number] [facility] 2022-08-10 13:30:00 2022-08-10 13:30:00 Outpatient R CATALINA STAPLETON [facility] [id number] [facility] 2022-08-07 00:00:00 2022-08-07 00:00:00 Telephone Daya Catalina [facility] OFF[facility] BU[facility] 1..840.114 350.1.13.10 4.2.7.2.686 [id number] [facility] 2022-08-07 00:00:00 2022-08-07 00:00:00 Patient Secure Msg Doctor Unassigned, Trinway [facility] 1.2.840.114 350.1.13.10 4.2.7.2.686 [id number] [facility] 2022-05-18 09:20:00 2022-05-18 09:40:00 Urgent Care Rhonda Guerratany [facility] MED[facility] OFF[facility] BUILD[facility] 1.2.840.114 350.1.13.10 4.2.7.2.686 [id number] 370 [id number] [facility] 2022-05-18 09:20:00 2022-05-18 09:36:56 Outpatient Ute RHONDA GUERRATANY [facility] [id number] [facility] 2022-05-18 00:00:00 2022-05-18 00:00:00 Letter (Out) Provider, Jonathan Brock Urgent Care [facility] MED[facility] OFF[facility] BUILD[facility] 1.2.840.114 350.1.13.10 4.2.7.2.686 [id number] 370 [id number] [facility] 2022-05-05 00:00:00 2022-05-05 00:00:00 Refill Caprice Stover [facility] MED[facility] OFFICE BUILD[facility] 1.2.840.114 350.1.13.10 4.2.7.2.686 [id number] [facility] 2022-03-30 16:00:00 2022-03-30 16:00:00 Outpatient CATALINA HURST [facility] [id number] [facility] 2022-03-30 16:00:00 2022-03-30 16:00:00 Outpatient CATALINA HURST [facility] [id number] [facility] 2022-03-30 16:00:00 2022-03-30 16:00:00 Outpatient CATALINA HURST [facility] [id number] [facility] 2022-03-06 14:00:00 2022-03-06 14:23:04 Outpatient R JEANCHRISTINE [facility] [id number] [facility] 2022-03-06 14:00:00 2022-03-06 14:23:04 Urgent Care Jean ChristineBritney Isaac [facility]?MANSISalazar [facility] MED[facility] OFF[facility] BUILD[facility] 1..840.114 350.1.13.10 4.2.7.2.686 [id number] 370 [id number] [facility] 2022-03-06 14:00:00 2022-03-06 14:23:04 Outpatient R JEAN CHRISTINE [facility] [id number] [facility] 2022-03-05 09:00:00 2022-03-05 09:20:04 Outpatient R JEAN CHRISTINE [facility] [id number] [facility] 2022-03-05 09:00:00 2022-03-05 09:20:04 Urgent Care Britney Escudero Christine [facility] MED[facility] OFF[facility] BUILD[facility] 1..840.114 350.1.13.10 4.2.7.2.686 [id number] [facility] 2022-02-16 15:30:00 2022-02-16 15:45:00 Senior Ui Developer Visit Lab, Caprice Jean [facility] OFF[facility] BUILD[facility] 1.2.840.114 350.1.13.10 4.2.7.2.686 [id number] [facility] 2022-02-16 15:30:00 2022-02-16 15:30:00 Outpatient CAPRICE JEAN [facility] [id number] [facility] 2022-02-16 14:30:00 2022-02-16 15:19:04 Office Visit Catalina Stapleton [facility] MED[facility] OFF[facility] BUILD[facility] 1.2.840.114 350.1.13.10 4.2.7.2.686 [id number] [facility] 2022-02-16 14:30:00 2022-02-16 15:19:04 Outpatient R CATALINA STAPLETON [facility] [id number] [facility] 2022-02-16 14:30:00 2022-02-16 14:30:00 Outpatient R CELSOCATALINA Lincoln [facility] [id number] [facility] 2022-02-06 13:00:00 2022-02-06 13:00:00 Outpatient R CAPRICE STOVER [facility] [id number] [facility] 2022-01-16 11:00:00 2022-01-16 11:00:00 Urgent Care Luis Fernandokerlinebrice, GarcialuRhonda [facility] 1.2.840.114 350.1.13.10 4.2.7.2.686 [id number] [facility] 2022-01-16 11:00:00 2022-01-16 09:54:38 [facility] [id number] [facility] 2021-12-12 18:00:00 2021-12-12 18:48:04 Outpatient R MONTY CABRERA [facility] [id number] [facility] 2021-12-12 18:00:00 2021-12-12 18:20:00 Urgent Care Monty Cabrera, [facility] 1.2.840.114 350.1.13.10 4.2.7.2.686 [id number] 370 [id number] [facility] 2021-12-12 11:20:00 2021-12-12 11:20:00 Outpatient R MONTY CABRERA [facility] [id number] [facility] 2021-12-08 17:45:00 2021-12-08 18:20:03 Outpatient R NICA HERNANDEZHUMBLESalazar [facility] [id number] [facility] 2021-12-08 17:45:00 2021-12-08 18:20:03 Office Visit Vincent Hernandez [facility] CAFE ASSOCIATE [facility] & CHILD [facility] 1.840.114 350.1.13.10 4.2.7.2.686 [id number] 107 [id number] [facility] 2021-12-04 15:30:00 2021-12-04 15:30:00 Outpatient R REYES RICHARDS [facility] [id number] [facility] 2021-12-02 15:45:00 2021-12-02 15:45:00 Outpatient R REYES RICHARDS [facility] [id number] [facility] 2021-11-21 14:15:00 2021-11-21 14:15:00 Outpatient P REYES RICHARDS [facility] [id number] [facility] 2021-11-21 13:00:00 2021-11-21 13:00:00 Outpatient P [facility] [id number] [facility] 2021-11-20 00:00:00 2021-11-20 00:00:00 Telephone Reyes Richards [facility] CAFE ASSOCIATE [facility] & CHILD [facility] 1.840.114 350.1.13.10 4.2.7.2.686 [id number] [facility] 2021-11-07 09:15:00 2021-11-07 10:05:09 Outpatient R BRUCE CALLEJAS [facility] [id number] [facility] 2021-11-07 09:15:00 2021-11-07 10:05:09 Routine Visit Trimester, [facility] Res-1st Bruce Callejas [facility] 1.840.114 350.1.13.10 4.2.7.2.686 [id number] [facility] 2021-11-07 09:15:00 2021-11-07 10:05:09 Outpatient R BRUCE CALLEJAS [facility] [id number] [facility] 2021-11-06 14:45:00 2021-11-06 14:45:00 Routine Visit Reyes Richards [facility] CAFE ASSOCIATE [facility] MATERNAL & [facility]ILD [facility] 1..114 350.1.13.10 4.2.7.2.686 [id number] [facility] 2021-11-06 14:45:00 2021-11-06 10:06:06 Outpatient R REYES RICHARDS [facility] [id number] [facility] 2021-11-04 07:19:00 2021-11-04 10:56:00 Emergency X EUN SANTOS [facility] ERT [id number] [facility] 2021-11-04 07:19:00 2021-11-04 10:56:00 Emergency Eun Santos [facility] 1..114 350.1.13.10 4.2.7.2.686 [id number] [facility] 2021-11-04 07:19:00 2021-11-04 10:56:00 Emergency X EUN SANTOS [facility] ERT [id number] [facility] 2021-11-04 00:00:00 2021-11-04 00:00:00 Orders Only Doctor Unassigned, [place] [facility] 1..114 350.1.13.10 4.2.7.2.686 [id number] [facility] 2021-10-27 00:00:00 2021-10-27 00:00:00 Nurse Triage Velia Mackenzie [facility] 1..114 350.1.13.10 4.2.7.2.686 [id number] [facility] 2021-10-23 09:20:00 2021-10-23 09:20:00 Outpatient R JAKE KOCH III [facility] [id number] [facility] 2021-10-21 14:00:00 2021-10-21 15:22:33 Outpatient R REYES RICHARDS [facility] [id number] [facility] 2021-10-21 14:00:00 2021-10-21 15:22:33 Initial Visit Reyes Richards [facility] CAFE ASSOCIATE [facility] MATERNAL & CHILD [facility] 1..840.114 350.1.13.10 4.2.7.2.686 [id number] [facility] 2021-10-21 00:00:00 2021-10-21 00:00:00 Orders Only Doctor Unassigned, [place] [facility] 1..840.114 350.1.13.10 4.2.7.2.686 [id number] [facility] 2021-05-09 11:00:00 2021-05-09 11:00:00 Outpatient HERMELINDO MCCARTY [facility] [id number] [facility] 2021-03-05 14:00:00 2021-03-05 14:00:00 Outpatient R REYES RICHARDS [facility] [id number] [facility] 2021-02-19 16:48:57 2021-02-19 17:22:20 Routine Visit Vincent Hernandez [facility] CAFE ASSOCIATE [facility] MATERNAL & CHILD [facility] 1..840.114 350.1.13.10 4.2.7.2.686 [id number] [facility] 2021-02-19 16:30:00 2021-02-19 16:30:00 Outpatient VINCENT BROWNLEE [facility] [id number] [facility] 2021-02-06 10:20:00 2021-02-06 11:16:00 Emergency Josee Arrington [facility] 1.2840.114 350.1.13.10 4.2.7.2.686 [id number] [facility] 2021-01-23 00:00:00 2021-01-23 00:00:00 Patient Secure Msg Doctor Unassigned, [place] [facility] CAFE ASSOCIATE [facility] & CHILD [facility] 1.2840.114 350.1.13.10 4.2.7.2.686 [id number] [facility] 2021-01-10 09:30:00 2021-01-10 09:30:00 Outpatient REYES DHALIWAL [facility] [id number] [facility] 2021-01-09 00:00:00 2021-01-09 00:00:00 Telephone Reyes Richards [facility] CAFE ASSOCIATE [facility] & CHILD [facility] 1.2840.114 350.1.13.10 4.2.7.2.686 [id number] 107 [id number] [facility] 2021-01-09 00:00:00 2021-01-09 00:00:00 Orders Only Doctor Unassigned, [place] [facility] 1.2840.114 350.1.13.10 4.2.7.2.686 [id number] [facility] 2021-01-08 08:00:00 2021-01-08 08:00:00 Outpatient REYES DHALIWAL [facility] [id number] [facility] 2021-01-07 15:00:00 2021-01-07 21:17:00 Hospital Encounter Sarika Fuller [facility] 1.2840.114 350.1.13.10 4.2.7.2.686 [id number] [facility] 2021-01-07 00:00:00 2021-01-07 00:00:00 Telephone Reyes Richards [facility] CAFE ASSOCIATE [facility] CHILD [facility] 1.2.840.114 350.1.13.10 4.2.7.2.686 [id number] [facility] 2021-01-07 00:00:00 2021-01-07 00:00:00 Orders Only Doctor Unassigned, [place] [facility] 1.2.840.114 350.1.13.10 4.2.7.2.686 [id number] [facility] 2021-01-03 13:00:00 2021-01-03 13:00:00 Outpatient R TIMA HERRING [facility] [id number] [facility] 2021-01-03 11:07:56 2021-01-03 12:07:53 Routine Visit Reyes Richards [facility] CAFE ASSOCIATE [facility] 1.2.840.114 350.1.13.10 4.2.7.2.686 [id number] [facility] 2021-01-03 11:00:00 2021-01-03 11:00:00 Outpatient R REYES RICHARDS [facility] [id number] [facility] 2021-01-02 00:00:00 2021-01-02 00:00:00 Nurse Triage Eloisa Wilson [facility] 1.2.840.114 350.1.13.10 4.2.7.2.686 [id number] [facility] 2021-01-01 13:11:31 2021-01-01 13:26:31 Routine Visit Reyes Richards [facility] CAFE ASSOCIATE [facility] 1.2.840.114 350.1.13.10 4.2.7.2.686 [id number] [facility] 2021-01-01 13:15:00 2021-01-01 13:15:00 Outpatient R REYES RICHARDS [facility] [id number] [facility] 2020-12-29 11:56:00 2020-12-29 12:16:00 Laboratory Only Lab, Adc Fam Pob I Jean, [facility] ..114 350.1.13.10 4.2.7.2.686 [id number] [facility] 2020-12-29 11:40:00 2020-12-29 11:40:00 Outpatient R [facility] [id number] [facility] 2020-12-27 00:00:00 2020-12-27 00:00:00 Abstract Reyes Richards [facility] CAFE ASSOCIATE [facility] CHILD [facility] 1.0.114 350.1.13.10 4.2.7.2.686 [id number] 107 [id number] [facility] 2020-12-27 00:00:00 2020-12-27 00:00:00 Telephone Reyes Richards [facility] CAFE ASSOCIATE [facility] CHILD [facility] 1..114 350.1.13.10 4.2.7.2.686 [id number] [facility] 2020-12-26 00:00:00 2020-12-26 00:00:00 Telephone Reyes Richards [facility] CAFE ASSOCIATE [facility] CHILD [facility] 1.0.114 350.1.13.10 4.2.7.2.686 [id number] [facility] 2020-12-25 13:29:28 2020-12-25 14:41:02 Routine Visit Reyes Richards [facility] CAFE ASSOCIATE [facility] CHILD [facility] 1.0.114 350.1.13.10 4.2.7.2.686 [id number] [facility] 2020-12-25 14:00:00 2020-12-25 14:00:00 Outpatient R REYES RICHARDS [facility] [id number] [facility] 2020-12-25 12:57:01 2020-12-25 13:27:01 Senior Ui Developer Visit Ultrasound, Rashel Tinoco [facility] CAFE ASSOCIATE [facility] MATERNAL & CHILD [facility] 1..840.114 350.1.13.10 4.2.7.2.686 [id number] [facility] 2020-12-23 16:00:00 2020-12-23 16:00:00 Outpatient R TIMA HERRING [facility] [id number] [facility] 2020-12-18 13:00:00 2020-12-18 13:00:00 Outpatient R REYES RICHARDS [facility] [id number] [facility] 2020-12-18 00:00:00 2020-12-18 00:00:00 Patient Secure Msg Doctor Unassigned, [place] [facility] 1..840.114 350.1.13.10 4.2.7.2.686 [id number] [facility] 2020-12-09 10:52:02 2020-12-09 11:07:02 Routine Visit Reyes Richards [facility] CAFE ASSOCIATE [facility] & CHILD [facility] 1..840.114 350.1.13.10 4.2.7.2.686 [id number] [facility] 2020-12-09 11:00:00 2020-12-09 11:00:00 Outpatient REYES DHALIWAL [facility] [id number] [facility] 2020-12-07 00:00:00 2020-12-07 00:00:00 Nurse Triage Gold, Shae [facility] 1.2840.114 350.1.13.10 4.2.7.2.686 [id number] [facility] 2020-12-04 12:48:15 2020-12-04 13:45:19 Office Visit Tima [facility] 1.2840.114 350.1.13.10 4.2.7.2.686 [id number] [facility] 2020-12-04 13:00:00 2020-12-04 13:00:00 Outpatient R TIMA HERRING [facility] [id number] [facility] 2020-12-04 10:12:46 2020-12-04 10:59:17 Routine Visit Reyes Richards [facility] CAFE ASSOCIATE [facility] & CHILD [facility] 1.2840.114 350.1.13.10 4.2.7.2.686 [id number] [facility] 2020-12-04 00:00:00 2020-12-04 00:00:00 Letter (Out) Reyes Richards [facility] CAFE ASSOCIATE [facility] & CHILD [facility] 1.2.840.114 350.1.13.10 4.2.7.2.686 [id number] [facility] 2020-11-27 13:00:50 2020-11-27 13:30:50 Senior Ui Developer Visit Ultrasound, Rashel Tinoco [facility] CAFE ASSOCIATE [facility] & CHILD [facility] 1.2.840.114 350.1.13.10 4.2.7.2.686 [id number] [facility] 2020-11-27 13:00:00 2020-11-27 13:00:00 Outpatient P [facility] [id number] [facility] 2020-11-27 00:00:00 2020-11-27 00:00:00 Abstract Reyes Richards [facility] CAFE ASSOCIATE [facility] & CHILD [facility] 1..840.114 350.1.13.10 4.2.7.2.686 [id number] [facility] 2020-11-20 15:44:37 2020-11-20 15:59:37 Routine Visit Reyes Richards [facility] CAFE ASSOCIATE [facility] CHILD [facility] 1.840.114 350.1.13.10 4.2.7.2.686 [id number] [facility] 2020-11-20 15:45:00 2020-11-20 15:45:00 Outpatient R SABINO RICHARDSILOLA [facility] [id number] [facility] 2020-11-08 13:30:00 2020-11-08 13:30:00 Outpatient R GERALD RICHARDSOLA [facility] [id number] [facility] 2020-11-08 11:07:29 2020-11-08 11:48:32 Routine Visit Reyes Richards Phu [facility] CAFE ASSOCIATE [facility] CHILD [facility] 1..840.114 350.1.13.10 4.2.7.2.686 [id number] 107 [id number] [facility] 2020-11-08 11:00:00 2020-11-08 11:00:00 Outpatient R BRIDGERRDAHA REYES [facility] [id number] [facility] 2020-11-06 10:45:00 2020-11-06 10:45:00 Outpatient R BRIDGERRADHA REYES [facility] [id number] [facility] 2020-10-30 12:59:19 2020-10-30 13:29:19 Senior Ui Developer Visit Ultrasound, Tyler Gentile [facility] CAFE ASSOCIATE [facility]ILD [facility] 1..840.114 350.1.13.10 4.2.7.2.686 [id number] [facility] 2020-10-30 13:00:00 2020-10-30 13:00:00 Outpatient P [facility] [id number] [facility] 2020-10-30 00:00:00 2020-10-30 00:00:00 Abstract Daniellejose mradhaSabinoReyes C [facility] CAFE ASSOCIATE [facility] 1.2840.114 350.1.13.10 4.2.7.2.686 [id number] [facility] 2020-10-25 13:14:35 2020-10-25 13:46:56 Routine Visit Reyes Richards [facility] CAFE ASSOCIATE [facility]ILD [facility] 1.840.114 350.1.13.10 4.2.7.2.686 [id number] 107 [id number] [facility] 2020-10-25 13:00:00 2020-10-25 13:00:00 Outpatient R REYES RICHARDS [facility] [id number] [facility] 2020-10-18 12:45:00 2020-10-18 12:45:00 Outpatient R REYES RICHARDS [facility] [id number] [facility] 2020-10-14 00:00:00 2020-10-14 00:00:00 Telephone Reyes Richards [facility] CAFE ASSOCIATE [facility] .840.114 350.1.13.10 4.2.7.2.686 [id number] 107 [id number] [facility] 2020-10-11 14:37:11 2020-10-11 15:21:23 Routine Visit Reyes Richards [facility] CAFE ASSOCIATE [facility] 1.2840.114 350.1.13.10 4.2.7.2.686 [id number] [facility] 2020-10-11 14:30:00 2020-10-11 14:30:00 Outpatient R REYES RICHARDS [facility] [id number] [facility] 2020-10-10 00:00:00 2020-10-10 00:00:00 Patient Secure Msg Doctor Unassigned, [place] [facility] CAFE ASSOCIATE [facility]ILD [facility] 1.84.114 350.1.13.10 4.2.7.2.686 [id number] 107 [id number] [facility] 2020-10-08 09:16:07 2020-10-08 10:17:01 Urgent Care Provider, [facility] .840.114 350.1.13.10 4.2.7.2.686 [id number] [facility] 2020-10-08 09:00:00 2020-10-08 09:00:00 [facility] [id number] [facility] 2020-10-07 00:00:00 2020-10-07 00:00:00 Abstract Reyes Richards [facility] CAFE ASSOCIATE [facility] CHILD [facility] .840.114 350.1.13.10 4.2.7.2.686 [id number] 107 [id number] [facility] 2020-10-02 14:40:05 2020-10-02 15:25:05 Senior Ui Developer Visit Ultrasound, Rashel Tinoco [facility] CAFE ASSOCIATE [facility] CHILD [facility] ..114 350.1.13.10 4.2.7.2.686 [id number] [facility] 2020-10-02 14:30:00 2020-10-02 14:30:00 Outpatient P [facility] [id number] [facility] 2020-10-02 00:00:00 2020-10-02 00:00:00 Telephone Reyes Richards [facility] CAFE ASSOCIATE [facility] MATERNAL & CHILD [facility] 1.2.840.114 350.1.13.10 4.2.7.2.686 [id number] 107 [id number] [facility] 2020-09-23 09:00:00 2020-09-23 09:00:00 Outpatient R REYES RICHARDS [facility] [id number] [facility] 2020-09-20 14:50:44 2020-09-20 15:12:59 Routine Visit Reyes Richards DCVIBHA CAFE ASSOCIATE [facility] MATERNAL & CHILD [facility] 1.2.840.114 350.1.13.10 4.2.7.2.686 [id number] 107 [id number] 2020-09-20 14:50:44 2020-09-20 15:12:59 Routine Visit Reyes Richards [facility] CAFE ASSOCIATE [facility] 1..840.114 350.1.13.10 4.2.7.2.686 [id number] 107 [id number] [facility] 2020-09-20 15:00:00 2020-09-20 15:00:00 Outpatient R REYES RICHARDS [facility] [id number] [facility] 2020-09-20 14:00:00 2020-09-20 14:00:00 Outpatient R REYES RICHARDS [facility] [id number] [facility] 2020-09-09 00:00:00 2020-09-09 00:00:00 Abstract Reyes Richards [facility] CAFE ASSOCIATE [facility]ILD [facility] 1.2.840.114 350.1.13.10 4.2.7.2.686 [id number] 2020-09-09 00:00:00 2020-09-09 00:00:00 Abstract Reyes Richards [facility] CAFE ASSOCIATE [facility] 1.2.840.114 350.1.13.10 4.2.7.2.686 [id number] 107 [id number] [facility] 2020-09-05 13:33:01 2020-09-05 15:36:46 Senior Ui Developer [facility] 1.2.840.114 350.1.13.10 4.2.7.2.686 [id number] 104 [id number] 2020-09-05 13:33:01 2020-09-05 15:36:46 Senior Ui Developer Visit 2, [facility] Room Gretchen arroyo [facility] 1.2.840.114 350.1.13.10 4.2.7.2.686 [id number] [facility] 2020-09-05 13:30:00 2020-09-05 13:30:00 Outpatient P [facility] [id number] [facility] 2020-09-05 13:00:00 2020-09-05 13:00:00 Outpatient P [facility] [id number] [facility] 2020-09-05 00:00:00 2020-09-05 00:00:00 Letter (Out) Gretchen arroyo [facility] 1.2.840.114 350.1.13.10 4.2.7.2.686 [id number] 2020-09-05 00:00:00 2020-09-05 00:00:00 Letter (Out) Gretchen arroyo [facility] 1.2.840.114 350.1.13.10 4.2.7.2.686 [id number] [facility] 2020-08-23 14:04:04 2020-08-23 15:06:18 Routine Visit Reyes Richards [facility] CAFE ASSOCIATE [facility] CHILD [facility] 1.2.840.114 350.1.13.10 4.2.7.2.686 [id number] 107 [id number] 2020-08-23 14:04:04 2020-08-23 15:06:18 Routine Visit Reyes Richards [facility] CAFE ASSOCIATE [facility] CHILD [facility] 1.2.840.114 350.1.13.10 4.2.7.2.686 [id number] 107 [id number] [facility] 2020-08-23 14:00:00 2020-08-23 14:00:00 Outpatient R REYES RICHARDS [facility] [id number] [facility] 2020-07-29 09:15:00 2020-07-29 09:15:00 Outpatient R [facility] [id number] [facility] 2020-07-29 08:08:23 2020-07-29 08:53:23 Telemedici ne Visit Faculty, Jonathan Mercedes [facility] CAFE ASSOCIATE [facility] CHILD [facility] 1.2.840.114 350.1.13.10 4.2.7.2.686 [id number] 107 [id number] 2020-07-29 08:08:23 2020-07-29 08:53:23 Telemedici ne Visit Faculty, Jonathan Garciarandall Ran Garcia [facility] CAFE ASSOCIATE [facility] CHILD [facility] 1.2.840.114 350.1.13.10 4.2.7.2.686 [id number] [facility] 2020-07-26 14:10:32 2020-07-26 14:29:49 Routine Visit Reyes Richards [facility] CAFE ASSOCIATE [facility] CHILD [facility] 1.2.840.114 350.1.13.10 4.2.7.2.686 [id number] 107 [id number] 2020-07-26 14:10:32 2020-07-26 14:29:49 Routine Visit Reyes Richards [facility] CAFE ASSOCIATE [facility]ILD [facility] 1.2.840.114 350.1.13.10 4.2.7.2.686 [id number] 107 [id number] [facility] 2020-07-26 14:00:00 2020-07-26 14:00:00 Outpatient R REYES RICHARDS [facility] [id number] [facility] 2020-07-25 13:00:00 2020-07-25 13:00:00 Outpatient R REYES RICHARDS [facility] [id number] [facility] 2020-07-19 00:00:00 2020-07-19 00:00:00 Abstract Reyes Richards [facility] CAFE ASSOCIATE [facility]ILD [facility] 1.2.840.114 350.1.13.10 4.2.7.2.686 [id number] 107 [id number] 2020-07-19 00:00:00 2020-07-19 00:00:00 Abstract Reyes Richards [facility] CAFE ASSOCIATE [facility]ILD [facility] 1.2.840.114 350.1.13.10 4.2.7.2.686 [id number] 107 [id number] [facility] 2020-07-18 13:50:07 2020-07-18 14:09:23 Senior Ui Developer Visit Lab, [facility] 1..114 350.1.13.10 4.2.7.2.686 [id number] 2020-07-18 13:50:07 2020-07-18 14:09:23 Senior Ui Developer Visit Lab, [facility] Tyler Fernandez [facility] 1.2840.114 350.1.13.10 4.2.7.2.686 [id number] [facility] 2020-07-18 14:00:00 2020-07-18 14:00:00 Outpatient R [facility] [id number] [facility] 2020-07-18 12:59:10 2020-07-18 13:43:54 Senior Ui Developer Visit 1, [facility] Room [facility] 1.2.840.114 350.1.13.10 4.2.7.2.686 [id number] 104 [id number] 2020-07-18 12:59:10 2020-07-18 13:43:54 Senior Ui Developer Visit 1, [facility] Room Gretchen arroyo [facility] 1.2.840.114 350.1.13.10 4.2.7.2.686 [id number] [facility] 2020-07-18 00:00:00 2020-07-18 00:00:00 Letter (Out) [facility] 1.20.114 350.1.13.10 4.2.7.2.686 [id number] 2020-07-18 00:00:00 2020-07-18 00:00:00 Case Management [facility] 1.2840.114 350.1.13.10 4.2.7.2.686 [id number] 2020-07-18 00:00:00 2020-07-18 00:00:00 Letter (Out) [facility] 1.2840.114 350.1.13.10 4.2.7.2.686 [id number] 104 [id number] [facility] 2020-07-18 00:00:00 2020-07-18 00:00:00 Case Management [facility] 1.2840.114 350.1.13.10 4.2.7.2.686 [id number] 113 [id number] [facility] 2020-07-16 00:00:00 2020-07-16 00:00:00 Patient Secure Msg Doctor Unassigned, [place] [facility] CAFE ASSOCIATE [facility] MATERNAL & CHILD [facility] 1.2.840.114 350.1.13.10 4.2.7.2.686 [id number] 107 [id number] [facility] 2020-07-15 08:10:49 2020-07-15 16:33:08 Telemedici ne Visit Faculty, Jonathan Mcdonald [facility] CAFE ASSOCIATE [facility]ILD [facility] 1.2.840.114 350.1.13.10 4.2.7.2.686 [id number] 107 [id number] 2020-07-15 08:10:49 2020-07-15 16:33:08 Telemedici ne Visit Faculty, Jonathan Garciarandall [facility] Hannah Dang [facility] CAFE ASSOCIATE [facility] CHILD [facility] 1.2.840.114 350.1.13.10 4.2.7.2.686 [id number] 107 [id number] [facility] 2020-07-15 10:30:00 2020-07-15 10:30:00 Outpatient R [facility] [id number] [facility] 2020-07-14 00:00:00 2020-07-14 00:00:[address] [facility] 1.2.840.114 350.1.13.10 4.2.7.2.686 [id number] 2020-07-14 00:00:00 2020-07-14 00:00:00 [facility] 1.2.840.114 350.1.13.10 4.2.7.2.686 [id number] [facility] 2020-07-01 00:00:00 2020-07-01 00:00:00 Abstract Reyes Richards [facility] CAFE ASSOCIATE [facility] CHILD [facility] 1.2.840.114 350.1.13.10 4.2.7.2.686 [id number] 107 [id number] 2020-07-01 00:00:00 2020-07-01 00:00:00 Abstract Reyes Richards [facility] CAFE ASSOCIATE [facility] CHILD [facility] 1.2.840.114 350.1.13.10 4.2.7.2.686 [id number] 107 [id number] [facility] 2020-06-28 12:40:24 2020-06-28 13:25:24 Senior Ui Developer Visit 1, [facility] Usg Room [facility] 1.2.840.114 350.1.13.10 4.2.7.2.686 [id number] 2020-06-28 12:40:24 2020-06-28 13:25:24 Senior Ui Developer Visit 1, [facility] Us Room TyronRashel [facility] 1.2.840.114 350.1.13.10 4.2.7.2.686 [id number] [facility] 2020-06-28 13:00:00 2020-06-28 13:00:00 Outpatient P [facility] [id number] [facility] 2020-06-27 13:00:22 2020-06-27 13:39:22 Routine Visit Reyes Richards [facility] CAFE ASSOCIATE [facility] CHILD [facility] 1.2.840.114 350.1.13.10 4.2.7.2.686 [id number] 107 [id number] 2020-06-27 13:00:22 2020-06-27 13:39:22 Routine Visit Reyes Richards [facility] CAFE ASSOCIATE [facility] CHILD [facility] 1.2.840.114 350.1.13.10 4.2.7.2.686 [id number] 107 [id number] [facility] 2020-06-27 13:00:00 2020-06-27 13:00:00 Outpatient R REYES RICHARDS [facility] [id number] [facility] 2020-06-26 09:15:00 2020-06-26 09:15:00 Outpatient R REYES RICHARDS [facility] [id number] [facility] 2020-06-17 10:47:26 2020-06-17 11:48:07 Routine Visit Faculty, Jonathan Mcdonald [facility] CAFE ASSOCIATE [facility] CHILD [facility] 1.2840.114 350.1.13.10 4.2.7.2.686 [id number] 107 [id number] 2020-06-17 10:47:26 2020-06-17 11:48:07 Routine Visit Faculty, Alexa Espana [facility] CAFE ASSOCIATE [facility] CHILD [facility] 1.2840.114 350.1.13.10 4.2.7.2.686 [id number] 107 [id number] [facility] 2020-06-17 10:30:00 2020-06-17 10:30:00 Outpatient R [facility] [id number] [facility] 2020-06-17 00:00:00 2020-06-17 00:00:00 Orders Only Doctor Unassigned, [place] [facility] 1.20.114 350.1.13.10 4.2.7.2.686 [id number] [facility] 2020-06-13 09:00:00 2020-06-13 09:00:00 Outpatient R [facility] [id number] [facility] 2020-06-03 00:00:00 2020-06-03 00:00:00 Telephone Reyes Richards [facility] CAFE ASSOCIATE [facility] CHILD [facility] 1.20.114 350.1.13.10 4.2.7.2.686 [id number] 107 [id number] [facility] 2020-05-28 13:09:30 2020-05-28 14:10:12 Initial Visit Reyes Richards [facility] CAFE ASSOCIATE [facility]ILD [facility] 1.2.840.114 350.1.13.10 4.2.7.2.686 [id number] 107 [id number] [facility] 2020-05-28 13:00:00 2020-05-28 13:00:00 Outpatient R REYES RICHARDS [facility] [id number] [facility] 2020-05-28 00:00:00 2020-05-28 00:00:00 Orders Only Doctor Unassigned, [place] [facility] 1.2840.114 350.1.13.10 4.2.7.2.686 [id number] [facility] 2020-05-15 00:00:00 2020-05-15 00:00:00 Telephone Reyes Richards [facility] CAFE ASSOCIATE [facility]ILD [facility] 1.840.114 350.1.13.10 4.2.7.2.686 [id number] 107 [id number] [facility] 2020-03-27 09:45:00 2020-03-27 09:45:00 Outpatient R REYES RICHARDS [facility] [id number] [facility] 2020-03-11 13:30:00 2020-03-11 13:30:00 Outpatient R REYES RICHARDS [facility] [id number] [facility] 2020-03-11 00:00:00 2020-03-11 00:00:00 Telephone Reyes Richards [facility] CAFE ASSOCIATE [facility] 1.840.114 350.1.13.10 4.2.7.2.686 [id number] 107 [id number] [facility] 2020-02-19 15:54:50 2020-02-19 16:20:25 Routine Visit Reyes Richards [facility] CAFE ASSOCIATE [facility] 1.840.114 350.1.13.10 4.2.7.2.686 [id number] 107 [id number] [facility] 2020-02-19 16:00:00 2020-02-19 16:00:00 Outpatient R REYES RICHARDS [facility] [id number] [facility] 2020-02-13 09:00:00 2020-02-13 09:00:00 Outpatient R REYES RICHARDS [facility] [id number] [facility] 2020-01-19 19:18:00 2020-01-22 17:30:00 Hospital Encounter Rebecca Hoff [facility] 1.2.840.114 350.1.13.10 4.2.7.2.686 [id number] [facility] 2020-01-19 15:53:23 2020-01-19 16:37:17 Routine Visit Reyes Richards [facility] CAFE ASSOCIATE [facility] MATERNAL & CHILD [facility] 1.2.840.114 350.1.13.10 4.2.7.2.686 [id number] [facility] 2020-01-19 16:00:00 2020-01-19 16:00:00 Outpatient R REYES RICHARDS [facility] [id number] [facility] 2020-01-19 00:00:00 2020-01-19 00:00:00 Orders Only Doctor Unassigned, [place] [facility] 1.2840.114 350.1.13.10 4.2.7.2.686 [id number] [facility] 2020-01-11 14:50:53 2020-01-11 15:22:24 Routine Visit Provider, Joycelyn Rose [facility] CAFE ASSOCIATE [facility] CHILD [facility] 1..840.114 350.1.13.10 4.2.7.2.686 [id number] 107 [id number] [facility] 2020-01-11 15:00:00 2020-01-11 15:00:00 Outpatient R [facility] [id number] [facility] 2020-01-05 14:12:11 2020-01-05 14:27:11 Routine Visit Reyes Richards [facility] CAFE ASSOCIATE [facility] MATERNAL & CHILD [facility] 1.2.840.114 350.1.13.10 4.2.7.2.686 [id number] 107 [id number] [facility] 2020-01-05 14:15:00 2020-01-05 14:15:00 Outpatient R REYES RICHARDS [facility] [id number] [facility] 2020-01-01 00:00:00 2020-01-01 00:00:00 Nurse Triage Shannan Munguia [facility] 1.2.840.114 350.1.13.10 4.2.7.2.686 [id number] [facility] 2020-01-01 00:00:00 2020-01-01 00:00:00 Nurse Triage Willian Kaylene S [facility] 1.2.840.114 350.1.13.10 4.2.7.2.686 [id number] [facility] 2019-12-29 00:00:00 2019-12-29 00:00:00 Telephone Reyes Richards [facility] CAFE ASSOCIATE [facility] CHILD [facility] 1.2.840.114 350.1.13.10 4.2.7.2.686 [id number] [facility] 2019-12-28 00:00:00 2019-12-28 00:00:00 Nurse Triage Toshia Tan [facility] 1.2.840.114 350.1.13.10 4.2.7.2.686 [id number] [facility] 2019-12-20 14:30:00 2019-12-20 14:30:00 Outpatient R REYES RICHARDS [facility] [id number] [facility] 2019-12-20 11:43:03 2019-12-20 14:19:06 Telemedici ne Visit Reyes Richards [facility] [id number] 350.1.13.10 4.2.7.2.686 [id number] [facility] 2019-12-14 18:31:58 2019-12-14 23:45:00 Emergency Amy Medina Vien [facility] 1.284.114 350.1.13.10 4.2.7.2.686 [id number] [facility] 2019-12-04 12:49:08 2019-12-04 14:24:22 Telemedici ne Visit Reyes Richards [facility] 1.84.114 350.1.13.10 4.2.7.2.686 [id number] [facility] 2019-12-04 14:00:00 2019-12-04 14:00:00 Outpatient R REYES RICHARDS [facility] [id number] [facility] 2019-11-24 00:00:00 2019-11-24 00:00:00 Telephone Reyes Richards [facility] 1.84.114 350.1.13.10 4.2.7.2.686 [id number] [facility] 2019-11-21 13:34:25 2019-11-21 14:28:43 Routine Visit Reyes Richards [facility] [id number] 350.1.13.10 4.2.7.2.686 [id number] [facility] 2019-11-21 14:00:00 2019-11-21 14:00:00 Outpatient R REYES RICHARDS [facility] [id number] [facility] 2019-11-21 00:00:00 2019-11-21 00:00:00 Orders Only Doctor Unassigned, [place] [facility] 1.284.114 350.1.13.10 4.2.7.2.686 [id number] [facility] 2019-11-08 00:00:00 2019-11-08 00:00:00 Telephone Reyes Richards Phu [facility] 1.20.114 350.1.13.10 4.2.7.2.686 [id number] [facility] 2019-11-07 07:56:19 2019-11-07 09:14:35 Routine Visit Susie Reyes Phu [facility] 1.2.114 350.1.13.10 4.2.7.2.686 [id number] [facility] 2019-11-07 08:00:00 2019-11-07 08:00:00 Outpatient R REYES RICHARDS [facility] [id number] [facility] 2019-11-06 14:00:00 2019-11-06 14:00:00 Outpatient R REYES RICHARDS [facility] [id number] [facility] 2019-11-03 00:00:00 2019-11-03 00:00:00 Telephone Reyes Richards Phu [facility] CAFE ASSOCIATE [facility] & CHILD [facility] 1.0.114 350.1.13.10 4.2.7.2.686 [id number] [facility] 2019-10-25 00:00:00 2019-10-25 00:00:00 Telephone Reyes Richards Phu [facility] CAFE ASSOCIATE [facility] CHILD [facility] 1.20.114 350.1.13.10 4.2.7.2.686 [id number] [facility] 2019-10-18 14:43:00 2019-10-18 18:45:00 Hospital Encounter Sarika Fuller [facility] 1.2840.114 350.1.13.10 4.2.7.2.686 [id number] [facility] 2019-10-18 14:43:00 2019-10-18 14:43:00 Outpatient P SARIKA FULLER [facility] TRICIA [id number] [facility] 2019-10-09 13:43:54 2019-10-09 14:44:59 Routine Visit Reyes Richards [facility] CAFE ASSOCIATE [facility] MATERNAL & CHILD [facility] 1.840.114 350.1.13.10 4.2.7.2.686 [id number] [facility] 2019-10-09 13:45:00 2019-10-09 13:45:00 Outpatient R REYES RICHARDS [facility] [id number] [facility] 2019-10-08 00:00:00 2019-10-08 00:00:00 Nurse Triage Shannan Munguia [facility] 1.84.114 350.1.13.10 4.2.7.2.686 [id number] [facility] 2019-09-19 00:00:00 2019-09-19 00:00:00 Abstract Reyes Richards [facility] CAFE ASSOCIATE [facility] CHILD [facility] 1.840.114 350.1.13.10 4.2.7.2.686 [id number] [facility] 2019-09-15 14:15:00 2019-09-15 15:34:37 Outpatient P TYLER FERNANDEZ [facility] [id number] [facility] 2019-09-11 13:57:39 2019-09-11 14:43:22 Routine Visit Reyes Richards [facility] CAFE ASSOCIATE [facility] MATERNAL & CHILD [facility] 1.840.114 350.1.13.10 4.2.7.2.686 [id number] [facility] 2019-09-09 08:42:00 2019-09-09 09:45:00 Hospital Encounter Swati Vang [facility] 1.2.840.114 350.1.13.10 4.2.7.2.686 [id number] [facility] 2019-09-09 00:00:00 2019-09-09 00:00:00 Nurse Triage Karina Cortes [facility] 1.2.840.114 350.1.13.10 4.2.7.2.686 [id number] [id number] [facility] 2019-08-07 16:11:15 2019-08-07 16:33:12 Senior Ui Developer Visit Lab, [facility] 1.2.840.114 350.1.13.10 4.2.7.2.686 [id number] [facility] 2019-07-27 18:02:33 2019-07-27 20:29:00 Emergency X CUONG ZAPATA [facility] ERT [id number] [facility] 2019-07-09 04:46:46 2019-07-09 06:27:00 Emergency X DEVIN MATHEW [facility] ERT [id number] [facility] Results Test Description Test Time Test Comments Results Result Co mments Source [facility] Children[facility]it[facility] B12, [id number] 05:57:34* Test Item Value Reference Range Interpretation Comme [facility] VIT B12 (test code = 6059459579) 318 pg/mL 240-930 MILLIE (test code = MILLIE) Biotin has been reported to cause a positive bias, interpret results relative to patient's use of biotin. Lab Interpretation (test code = 87188-5) Normal [facility] ChildrenVitamin D, [id number] 21:06:31* Test Item Value Reference Range Interpretation Comme [facility] VIT D 25OH (test code = 62800-0) 39 ng/mL 25-80 MILLIE (test code = MILLIE) Deficiency: <20 ng/mLInsufficiency : 20-24 ng/mLOptimal: 25-80 ng/mL Lab Interpretation (test code = 55362-7) Normal [facility] ChildrenComp. Metabolic Panel (51147)2024-01-05 19:58:35* Test Item Value Reference Range Interpretation Comme nts NA (test code = 7842873463) 138 mmol/L 135-145 K (test code = 1206515891) 4.2 mmol/L 3.5-5.0 CL (test code = 5381847740) 107 mmol/L 98-108 CO2 TOTAL (test code = 8501419351) 24 mmol/L 23-31 AGAP (test code = 7723520594) 7 2-16 BUN (test code = 9307245104) 8 mg/dL 7-23 GLUCOSE (test code = 4954877703) 94 mg/dL 70-110 CREATININE (test code = 2160-0) 0.56 mg/dL 0.50-1.04 TOTAL BILI (test code = 4006993408) 0.7 mg/dL 0.1-1.1 CALCIUM (test code = 2484317713) 9.5 mg/dL 8.6-10.6 T PROTEIN (test code = 1520752689) 8.0 g/dL 6.3-8.2 ALBUMIN (test code = 5795466036) 4.4 g/dL 3.5-5.0 ALK PHOS (test code = 7114150817) 75 U/L 34-122 ALTv (test code = 1742-6) 19 U/L 5-35 AST(SGOT) (test code = 6250134159) 21 U/L 13-40 eGFR (test code = 75381-2) 130.9 mL/min/1.73m2 CKD-EPI eGFR (20 21). Assuming creatinine has been stable day-to-day for at least three months, the eGFR indicates Category G1 (>= 90 mL/min/1.73 m2) [facility] ChildrenGlycosylated Hemoglobin (A1C)2024-01-05 19:42:10* Test Item Value Reference Range Interpretation Comme nts HGB A1C (test code = 4548-4) 4.9 % 4.0-5.7 MILLIE (test code = MILLIE) Reference RangesNormal: <5.7%Prediabetes: 5.7 - 6.4%Diabetes: > 6.5% Lab Interpretation (test code = 67313-5) Normal [facility] with [id number] 23:00:45* Test Item Value Reference Range Interpretation [...] 32.5 g/dL 31.6-35.1 RDW-SD (test code = 71526-0) 41.0 fL 39.0-49.9 RDW-CV (test code = 788-0) 12.9 % 12.0-15.5 PLT (test code = 777-3) 304 166-358 MPV (test code = 28529-6) 10.4 fL 9.5-12.9 NRBC/100 WBC (test code = 5434572965) 0.0 0.0-10.0 NRBC x10^3 (test code = 8375078200) See_Comment [Automated message] The system which generated this result transmitted reference range: 10*3/?L. The reference range was not used to interpret this result as normal/abnormal. GRAN MAT (NEUT) % (test code = 770-8) 84.2 % IMM GRAN % (test code = 8690156060) 0.50 % LYMPH % (test code = 736-9) 8.4 % MONO % (test code = 5905-5) 6.6 % EOS % (test code = 713-8) 0.1 % BASO % (test code = 706-2) 0.2 % GRAN MAT x10^3(ANC) (test code = 4283367201) 14.96 10*3/uL 1.88-7.09 H IMM GRAN x10^3 (test code = 5604745020) 0.09 10*3/uL 0.00-0.06 H LYMPH x10^3 (test code = 731-0) 1.50 10*3/uL 1.32-3.29 MONO x10^3 (test code = 742-7) 1.18 10*3/uL 0.33-0.92 H EOS x10^3 (test code = 711-2) 0.03-0.39 L BASO x10^3 (test code = 704-7) 0.03 10*3/uL 0.01-0.07 Lab Interpretation (test code = 28018-3) Abnormal [facility] with [id number] 23:00:45* Test Item Value Reference Range Interpretation [...] 32.5 g/dL 31.6-35.1 RDW-SD (test code = 93749-6) 41.0 fL 39.0-49.9 RDW-CV (test code = 788-0) 12.9 % 12.0-15.5 PLT (test code = 777-3) 304 166-358 MPV (test code = 63692-0) 10.4 fL 9.5-12.9 NRBC/100 WBC (test code = 8589641905) 0.0 0.0-10.0 NRBC x10^3 (test code = 8214634167) See_Comment [Automated message] The system which generated this result transmitted reference range: 10*3/?L. The reference range was not used to interpret this result as normal/abnormal. GRAN MAT (NEUT) % (test code = 770-8) 84.2 % IMM GRAN % (test code = 2132963214) 0.50 % LYMPH % (test code = 736-9) 8.4 % MONO % (test code = 5905-5) 6.6 % EOS % (test code = 713-8) 0.1 % BASO % (test code = 706-2) 0.2 % GRAN MAT x10^3(ANC) (test code = 9881256533) 14.96 10*3/uL 1.88-7.09 H IMM GRAN x10^3 (test code = 6890774683) 0.09 10*3/uL 0.00-0.06 H LYMPH x10^3 (test code = 731-0) 1.50 10*3/uL 1.32-3.29 MONO x10^3 (test code = 742-7) 1.18 10*3/uL 0.33-0.92 H EOS x10^3 (test code = 711-2) 0.03-0.39 L BASO x10^3 (test code = 704-7) 0.03 10*3/uL 0.01-0.07 Lab Interpretation (test code = 17473-2) Abnormal [facility] GLUCOSE (AUTOMATED)2023-09-16 21:10:51* Test Item Value Reference Range Interpretation Comme nts POCT GLU (test code = 2171705979) 94 mg/dL 70-110 Lab Interpretation (test cod e = 62650-5) Normal [facility] GLUCOSE (AUTOMATED)2023-09-16 21:10:51* Test Item Value Reference Range Interpretation Comme nts POCT GLU (test code = 6524748482) 94 mg/dL 70-110 Lab Interpretation (test cod e = 96267-5) Normal [facility] ChildrenRHO (D) IMMUNE [id number] 17:43:00* Test Item Value Reference Range Interpretation Comme nts RHIG CANDIDATE? (test code = 5188) No- see comment Patient is not a candidate for RhIg- Patient is Rh Positive.Performed at [facility] Laboratory Services - [facility] Blood [address] [place] [address]Uyae Free: [phone] No. [id number] [facility] ChildrenRHO (D) IMMUNE [id number] 17:43:00* Test Item Value Reference Range Interpretation Comme nts RHIG CANDIDATE? (test code = 5188) No- see comment Patient is not a candidate for RhIg- Patient is Rh Positive.Performed at [facility] Laboratory Services - [facility] Blood [address] [address]Cvyd Free: [phone] No. [id number] [facility] ONLY - [place] IGG/[id number] 16:10:09* Test Item Value Reference Range Interpretation Comme nts Syphilis IgG/IgM (test code = 93533-5) Non-reactive Non-reactive MILLIE (test code = MILLIE) Non-reactive - No serologic evidence of T. pallidum infection. Cannot exclude incubating or early syphilis. Submit a second specimen in 2-4 weeks if syphilis is clinically suspected. Equivocal - Further testing to follow. Reactive - Further testing to follow. Lab Interpretation (test code = 92205-7) Normal [facility] ONLY - [place] IGG/[id number] 16:10:09* Test Item Value Reference Range Interpretation Comme nts Syphilis IgG/IgM (test code = 69081-2) Non-reactive Non-reactive MILLIE (test code = MILLIE) Non-reactive - No serologic evidence of T. pallidum infection. Cannot exclude incubating or early syphilis. Submit a second specimen in 2-4 weeks if syphilis is clinically suspected. Equivocal - Further testing to follow. Reactive - Further testing to follow. Lab Interpretation (test code = 61097-9) Normal [facility] Cord [id number] 12:46:35* Test Item Value Reference Range Interpretation Comme nts VENOUS BASE EXCESS, CORD (te st code = 2397102629) -1.1 mEq/L VENOUS PH, CORD (test code = 0209024183) 7.35 7.25-7.45 VENOUS PC02, CORD (test code = 2492136953) 46 27-49 VENOUS PO2, CORD (test code = 3279405587) 23 17-41 VENOUS BICARBONATE, CORD (te st code = 2654417783) 25 12-29 [facility] Cord [id number] 12:46:35* Test Item Value Reference Range Interpretation Comme nts VENOUS BASE EXCESS, CORD (te st code = 2023549832) -1.1 mEq/L VENOUS PH, CORD (test code = 4048262858) 7.35 7.25-7.45 VENOUS PC02, CORD (test code = 0208029409) 46 27-49 VENOUS PO2, CORD (test code = 7827168009) 23 17-41 VENOUS BICARBONATE, CORD (te st code = 5438715954) 25 12-29 [facility] ChildrenCentral Neuraxial Hihge6078-74-17 08:10:00 Bulmaro Newberry MD ? ? 09/16/2023 ?2:10 AM Central Neuraxial Block Date/Time: 09/16/2023 2:10 AM Performed by: Bulmaro Newberry MDAuthorized by: Alonso Reynolds MD ?Patient Location: OBEnd Time: 09/16/2023 2:10 AMReason for Block: OB request, Patient request, Labor analgesia, Surgical anesthesia and Post-op pain managementStaff: ?Anesthesiologist: Alonso Reynolds MD ?Resident/SPEECH AND LANGUAGE SPECIALIST: Bulmaro Newberry MD ?Performed by: resident/CRNAPreanesthetic Checklist: [...] and PARTH saline ?Guidance with: landmark technique}Epidural/Spinal [place] and/or Catheter: ?Epidural/Spinal Kit: [place] ?Needle Type: Tuohy ?Needle Gauge: 17 G ?Needle Length: 3.5 in (8.89 cm) ?Needle Insertion Depth: 8 ?Catheter Type: multiport ? ?Catheter Size: 19 G ? ?Catheter at Skin Depth: 13 ?Number of Attempts: 1 ?Test Dose: lidocaine 1.5% with epinephrine 1-to-200,000 and negative ? ?Dose: 3 cc ? ?Catheter Securement Method: surgical tape, Tegaderm, clear occlusive dressing and liquid medical adhesiveAssessment: ?Sensory Level: below T10 ?Block Outcome: a full evaluation is pending ? ?Procedure Assessment: patient tolerated procedure well with no complicationsNotes: ? Patient id entified; pre-procedure verification.Patient prepped and draped in standard sterile fashion using betadine x 3Subcutaneous infiltration with 1% Lidocaine PARTH at 8 cm; catheter secured at 13 cm with mastisol, tegaderm x2 and 3-inch clear tape.Aspiration test negative x 3Test dose negativePatient tolerated procedure well with no immediate complications Epidural expectations; PCEA explained and fallprecautions given.[facility] 1/2 AG-AB WITH [id number] 03:20:38* Test Item Value Reference Range Interpretation Comme nts HIV Semi-quantitative (test code = 95900-7) 0.08 Negative MILLIE (test code = MILLIE) Non-reactive for HIV-1 antigen and HIV-1/HIV-2 antibodies. ?No laboratory evidence of HIV infection. ?Repeat in 2-4 weeks if acute HIV infection is suspected. [facility] 1/2 AG-AB WITH [id number] 03:20:38* Test Item Value Reference Range Interpretation Comme nts HIV Semi-quantitative (test code = 43981-4) 0.08 Negative MILLIE (test code = MILLIE) Non-reactive for HIV-1 antigen and HIV-1/HIV-2 antibodies. ?No laboratory evidence of HIV infection. ?Repeat in 2-4 weeks if acute HIV infection is suspected. [facility] [id number] 01:07:17 * Test Item Value Reference Range Interpretation Comme nts HBsAg Semi-Quantitative (akbar t code = 5195-3) 0.06 Negative [facility] [id number] 01:07:17 * Test Item Value Reference Range Interpretation Comme nts HBsAg Semi-Quantitative (akbar t code = 5195-3) 0.06 Negative [facility] with Ncjjpdrzlxej6466-93-91 23:48:07* Test Item Value Reference Range Interpretation [...] 32.4 g/dL 31.6-35.1 RDW-SD (test code = 70257-8) 41.1 fL 39.0-49.9 RDW-CV (test code = 788-0) 13.0 % 12.0-15.5 PLT (test code = 777-3) 352 166-358 MPV (test code = 77503-5) 11.0 fL 9.5-12.9 NRBC/100 WBC (test code = 4464528409) 0.0 0.0-10.0 NRBC x10^3 (test code = 8436741972) See_Comment [Automated messa ge] The system which generated this result transmitted reference range: 10*3/?L. The reference range was not used to interpret this result as normal/abnormal. GRAN MAT (NEUT) % (test code = 770-8) 70.8 % IMM GRAN % (test code = 2031618391) 0.40 % LYMPH % (test code = 736-9) 19.9 % MONO % (test code = 5905-5) 8.2 % EOS % (test code = 713-8) 0.5 % BASO % (test code = 706-2) 0.2 % GRAN MAT x10^3(ANC) (test code = 2278170384) 8.71 10*3/uL 1.88-7.09 H IMM GRAN x10^3 (test code = 8640139890) 0.05 10*3/uL 0.00-0.06 LYMPH x10^3 (test code = 731-0) 2.45 10*3/uL 1.32-3.29 MONO x10^3 (test code = 742-7) 1.01 10*3/uL 0.33-0.92 H EOS x10^3 (test code = 711-2) 0.06 10*3/uL 0.03-0.39 BASO x10^3 (test code = 704-7) 0.01-0.07 Lab Interpretation (test code = 68377-0) Abnormal [facility] with Amokqzmdgqcx6223-08-49 23:48:07* Test Item Value Reference Range Interpretation [...] 32.4 g/dL 31.6-35.1 RDW-SD (test code = 14467-0) 41.1 fL 39.0-49.9 RDW-CV (test code = 788-0) 13.0 % 12.0-15.5 PLT (test code = 777-3) 352 166-358 MPV (test code = 49918-0) 11.0 fL 9.5-12.9 NRBC/100 WBC (test code = 7810739177) 0.0 0.0-10.0 NRBC x10^3 (test code = 7426029673) See_Comment [Automated messa ge] The system which generated this result transmitted reference range: 10*3/?L. The reference range was not used to interpret this result as normal/abnormal. GRAN MAT (NEUT) % (test code = 770-8) 70.8 % IMM GRAN % (test code = 5822993517) 0.40 % LYMPH % (test code = 736-9) 19.9 % MONO % (test code = 5905-5) 8.2 % EOS % (test code = 713-8) 0.5 % BASO % (test code = 706-2) 0.2 % GRAN MAT x10^3(ANC) (test code = 1953595949) 8.71 10*3/uL 1.88-7.09 H IMM GRAN x10^3 (test code = 0013694466) 0.05 10*3/uL 0.00-0.06 LYMPH x10^3 (test code = 731-0) 2.45 10*3/uL 1.32-3.29 MONO x10^3 (test code = 742-7) 1.01 10*3/uL 0.33-0.92 H EOS x10^3 (test code = 711-2) 0.06 10*3/uL 0.03-0.39 BASO x10^3 (test code = 704-7) 0.01-0.07 Lab Interpretation (test code = 31897-1) Abnormal [facility] Children[facility] Screen - ONCE [id number] 23:36:00 * Test Item Value Reference Range Interpretation Comme nts ABO & RH (test code = 20) A POSITIVE IAT (test code = 1185) Negative [facility] and Screen - ONCE [id number] 23:36:00 * Test Item Value Reference Range Interpretation Comme nts ABO & RH (test code = 20) A POSITIVE IAT (test code = 1185) Negative [facility] ChildrenPO[facility] URINALYSIS W SPECIFIC [id number] 16:47:00* Test Item Value Reference Range Interpretation [...] POCT U APPEAR (test code = 3267) [facility] ChildrenLactate Ltvuagtnzckqh3828-75-93 23:39:27* Test Item Value Reference Range Interpretation Comme nts LDH (test code = 4274929329) 136 U/L 120-246 Lab Interpretation (test cod e = 20945-8) Normal [facility] ChildrenUric Acid Khpmb6680-84-12 23:38:06* Test Item Value Reference Range Interpretation Comme nts URIC ACID (test code = 5832623970) 4.4 mg/dL 2.9-6.0 Lab Interpretation (test cod e = 15982-1) Normal [facility] Kkbgtlovit6857-51-25 23:38:06* Test Item Value Reference Range Interpretation Comme nts CREATININE (test code = 5786122018) 0.35 mg/dL 0.50-1.04 L eGFR (test code = 72827-2) 146.6 mL/min/1.73m2 CKD-EPI eGFR (2020). Assuming creatinine has been stable day-to-day for at least three months, the eGFR indicates Category G1 (>= 90 mL/min/1.73 m2) Lab Interpretation (test code = 73716-9) Abnormal [facility] ChildrenSGOT (Asparate Amino Transfer)2023-09-10 23:38:06* Test Item Value Reference Range Interpretation Comme nts AST(SGOT) (test code = 5682630651) 17 U/L 13-40 Lab Interpretation (test cod e = 07899-2) Normal [facility] ChildrenAlanine Amino Transferase (SGPT)2023-09-10 23:38:05* Test Item Value Reference Range Interpretation Comme nts ALTv (test code = 1742-6) 14 U/L 5-35 Lab Interpretation (test cod e = 06507-5) Normal [facility] ChildrenCBC with Ggamptjpdhoy9725-16-09 23:30:05* Test Item Value Reference Range Interpretation [...] 32.0 g/dL 31.6-35.1 RDW-SD (test code = 85147-8) 40.6 fL 39.0-49.9 RDW-CV (test code = 788-0) 12.8 % 12.0-15.5 PLT (test code = 777-3) 339 166-358 MPV (test code = 13441-1) 10.9 fL 9.5-12.9 NRBC/100 WBC (test code = 9064973175) 0.0 0.0-10.0 NRBC x10^3 (test code = 0158741610) See_Comment [Automated messa ge] The system which generated this result transmitted reference range: 10*3/?L. The reference range was not used to interpret this result as normal/abnormal. GRAN MAT (NEUT) % (test code = 770-8) 73.2 % IMM GRAN % (test code = 6648189398) 0.50 % LYMPH % (test code = 736-9) 17.6 % MONO % (test code = 5905-5) 8.0 % EOS % (test code = 713-8) 0.5 % BASO % (test code = 706-2) 0.2 % GRAN MAT x10^3(ANC) (test code = 0439809775) 9.48 10*3/uL 1.88-7.09 H IMM GRAN x10^3 (test code = 3910698758) 0.06 10*3/uL 0.00-0.06 LYMPH x10^3 (test code = 731-0) 2.28 10*3/uL 1.32-3.29 MONO x10^3 (test code = 742-7) 1.04 10*3/uL 0.33-0.92 H EOS x10^3 (test code = 711-2) 0.07 10*3/uL 0.03-0.39 BASO x10^3 (test code = 704-7) 0.01-0.07 Lab Interpretation (test code = 36874-5) Abnormal [facility] URINALYSIS W SPECIFIC [id number] 17:39:00* Test Item Value Reference Range Interpretation [...] U APPEAR (test code = 3267) . [facility] URINALYSIS W SPECIFIC [id number] 17:39:00* Test Item Value Reference Range Interpretation [...] U APPEAR (test code = 3267) . [facility] URINALYSIS W SPECIFIC [id number] 21:56:00* Test Item Value Reference Range Interpretation [...] U APPEAR (test code = 3267) . [facility] URINALYSIS W SPECIFIC [id number] 20:28:00* Test Item Value Reference Range Interpretation [...] POCT U APPEAR (test code = 3267) [facility] URINALYSIS W SPECIFIC [id number] 20:28:00* Test Item Value Reference Range Interpretation [...] POCT U APPEAR (test code = 3267) [facility] URINALYSIS W SPECIFIC [id number] 20:28:00* Test Item Value Reference Range Interpretation [...] POCT U APPEAR (test code = 3267) [facility] URINALYSIS W SPECIFIC [id number] 20:07:00* Test Item Value Reference Range Interpretation [...] U APPEAR (test code = 3267) . [facility] URINALYSIS W SPECIFIC [id number] 16:25:00* Test Item Value Reference Range Interpretation [...] U APPEAR (test code = 3267) . [facility] URINALYSIS W SPECIFIC [id number] 21:57:00* Test Item Value Reference Range Interpretation [...] U APPEAR (test code = 3267) .. [facility] URINALYSIS W SPECIFIC [id number] 21:57:00* Test Item Value Reference Range Interpretation [...] U APPEAR (test code = 3267) .. [facility] URINALYSIS W SPECIFIC [id number] 22:40:00* Test Item Value Reference Range Interpretation [...] U APPEAR (test code = 3267) . [facility] URINALYSIS W SPECIFIC [id number] 22:39:00* Test Item Value Reference Range Interpretation [...] U APPEAR (test code = 3267) . [facility] URINALYSIS W SPECIFIC [id number] 20:30:00* Test Item Value Reference Range Interpretation [...] POCT U APPEAR (test code = 3267) [facility] URINALYSIS W SPECIFIC [id number] 19:47:00* Test Item Value Reference Range Interpretation [...] POCT U APPEAR (test code = 3267) [facility] URINALYSIS W SPECIFIC [id number] 19:08:00* Test Item Value Reference Range Interpretation [...] POCT U APPEAR (test code = 3267) [facility] URINALYSIS W SPECIFIC [id number] 19:38:00* Test Item Value Reference Range Interpretation [...] U APPEAR (test code = 3267) . [facility] URINALYSIS W SPECIFIC [id number] 19:38:00* Test Item Value Reference Range Interpretation [...] U APPEAR (test code = 3267) . [facility] URINALYSIS W SPECIFIC [id number] 19:22:00* Test Item Value Reference Range Interpretation [...] POCT U APPEAR (test code = 3267) [facility] [id number] 00:21:00* Test Item Value Reference Range Interpretation Comme nts POCT PREG (test code = 1605) Positive On board controls acceptable with C Line (test code = 3574) Yes POCT PREG LOT # (test code = 3575) [id number] POCT PREG TEST DATE ( test code = 3576) 07-21-2024 Lab Interpretation (test cod e = 81469-5) Normal [facility] URINALYSIS W/O SPECIFIC [id number] 13:31:00* Test Item Value Reference Range Interpretation [...] = 3257) trace Negative - Negati ve [facility] URINALYSIS W/O SPECIFIC [id number] 13:31:00* Test Item Value Reference Range Interpretation [...] = 3257) trace Negative - Negati ve [facility] [id number] 13:30:00* Test Item Value Reference Range Interpretation Comme nts POCT PREG (test code = 1605) Positive On board controls acceptable with C Line (test code = 3574) Yes POCT PREG LOT # (test code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 Formatting of this n ote might be different from the original. Attempted to call patient, no answer, no vm setup. [facility] 2023-04-22 07:48:47 Formatting of this n ote might be different from the original. Diflucan erx sent [facility] 2023-04-19 13:01:08 Formatting of this n ote [...] POC. ZULEYMA Gtz RN 04/19/2023 1:01 PM' [facility] 2023-04-19 12:53:27 Formatting of this n ote might be different from the original. Please call patient and let her know I erx keflex for UTI. [facility] 2023-03-26 14:44:12 Formatting of this n ote might be different from the original. Patient stated her last BM was Wednesday, stated she normally goes everyday. Referred to safe medication list, verbalized understanding. [facility] 2023-03-26 13:12:38 Formatting of this n ote might be different from the original. Moira Molina is a 23 year old female Pt is calling because she is 12weeks and wants to know what she can take otc for constipation and abdomen pain x for a few weeks. Please contact pt at [phone]. Joyce Arthur [facility] 2023-03-25 07:43:26 Formatting of this n ote might be different from the original. Patient states she tried the promethazine as prescribed and it caused her to vomit more. Patient notified of Zofran refill. Pt verbalized understanding. HOWARD BORREGO RN 03/25/2023 7:45 AM Howard Borrego RN [facility] 2023-03-24 22:09:25 Formatting of this n ote might be different from the original. I sent refill erx for zofran, Please ask if she is taking promethazine which I prescribed on 03/11 due to zofran not working per patient. [facility] 2023-03-24 13:34:30 Formatting of this n ote might be different from the original. Moira Molina is a 23 year old female 12 wk 0 days Pt needs refill on ZOFRAN(ondansetron 4 mg) due to nausea and can not keep food down. 2nd request. Please call pt at [phone] (home) [facility]/pharmacy #[id number] [place], [place] - [address] AT [facility] Lyly Cool [facility] 2023-03-23 12:06:26 Formatting of this n ote might be different from the original. Moira Molina is a 23 year old female Patient called to ask for refill of Zofran and what over the counter medication she can take for constipation. Please contacat pt at [phone] (home) T [facility] 2023-03-16 09:02:20 Formatting of this n ote might be different from the original. Patient informed of results and new orders, verbalized understanding. T [facility] 2023-03-15 10:10:28 Formatting of this n ote might be different from the original. Moira Molina is a 23 year old female Attempted to call patient, no answer. Could not leave voicemail, no voicemail available. Will attempt at a later time. T [facility] 2023-03-15 08:45:08 Formatting of this n ote might be different from the original. Please call patient and let her know I erx keflex to pharmacy for GBS UTI. [facility] 2023-03-09 10:22:57 Formatting of this n ote [...] to provider at her appt on 03/11/2023. [facility] 2023-03-05 08:22:42 Formatting of this n ote might be different from the original. Called pt, no answer. No vm box set up. Zuleyma Gtz RN 03/05/23 8:23 AM [facility] 2023-03-04 16:50:50 Formatting of this n ote might be different from the original. Moira Molina is a 22 year old female Patient requesting to speak with provider for ultrasound results. Please call [phone] (home) Yessenia Farrell [facility] 2023-03-02 13:08:30 Formatting of this n ote might be different from the original. See other encounter. [facility] 2023-03-02 13:06:03 Formatting of this n ote might be different from the original. Patient informed refill was sent to pharmacy. Patient is asking for nausea medication to be sent to pharmacy. T [facility] 2023-03-02 13:01:17 Formatting of this n ote might be different from the original. Moira Molina is a 22 year old female Pt is calling requesting something for nausea and vomiting sent to her pharmacy. [facility]/pharmacy #[id number] - [address] AT [facility] Joyce Arthur [facility] 2023-03-02 12:58:41 Formatting of this n ote might be different from the original. Refill sent T [facility] 2023-03-01 20:32:34 Formatting of this n [...] to pt's pharmacy. Provider aware pt prefers [facility] [place] Discussed Tylenol to help with pain and/or fever Pt verbalized understanding of instructions,pt encouraged to follow up with pcp and or/OBGYN Advised to seek medical attention for new/prolonged/worsening of symptoms, No adverse reaction to meds given in ER noted upon discharge Awake, alert oriented, resp reg unlabored, skin w/d, pt leaving in no apparent distress, Kiersten Amaya RN [facility] 2023-03-01 19:09:42 Formatting of this n [...] is 8 weeks preg. Dahlia Davis RN [facility] 2023-03-01 18:57:00 Formatting of this n ote is different from the original. 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 discharged Problems Addressed: Dizziness: acute illness [...] with provider. Follow-up: Electronically signed by: Karen Cooln DO 03/01/232020 [facility] [employer] 2023-03-01 17:41:38 Formatting of this n ote might be different from the original. Moria Molina is a 22 year old female Pt is calling asking if something can be sent to her primary doctor so she can be prescribed Zoloft. Stating she is having withdrawals, not being able to stand and eat. Please advise Larry Hampton [facility] [employer] 2023-02-27 15:06:00 Formatting of this n ote might be different from the original. Regarding: pregnat, allergies and difficulty sleeping. asking to speak with eitan Coombs ----- Message from Allyssa Casey sent at 02/27/2023 3:05 PM CDT ----- 8wks and 4 days Pt having allergies and is having difficulty sleeping. She is asking to speak with nurse to know if she can take Benadryl Fermin Pathak RN [facility] 2023-02-27 15:06:00 Formatting of this n ote might be different from the original. Moira Molina is a 22 year old female Patient calling seeking advice on taking Benadryl while . Advised that Benadryl has been determined to be a safe medication while Fermin MCGHEE, RN [facility] Access Center Reason for Disposition Caller has medication question only, adult not sick, and triager answers question Protocols used: Medication Question [id number] [facility] 2023-02-27 15:06:00 Formatting of this n ote might be different from the original. Noted. T [facility]
[2024-12-10] MEDS ORDERED: KETOROLAC 30 MG/ML INJ ONE (02:19)
[2024-12-10] MEDS ORDERED: BUPIVACAINE 0.5% PF 10 ML VIAL ONE (02:19)
--- NOTE | 2024-12-10 02:32 | ER ---
Nurse's Notes [facility] Name: Urvashi Molina Age: 24 yrs Sex: Female : 2000 Arrival Date: 12/10/2024 Time: 01:40 Bed 13 Private MD: Diagnosis: Dental caries, unspecified Presentation: 12/10 01:58 Chief complaint: Patient states: RIGHT LOWER TOOOTHACHE. Coronavirus screen: Client br2 denies travel out of the [place] in the last 14 days. Ebola Screen: Patient denies exposure to infectious person. Initial Sepsis Screen: Does the patient meet any 2 criteria? No. Patient's initial sepsis screen is negative. Does the patient have a suspected source of infection? No. Patient's initial sepsis screen is negative. Risk Assessment: Do you want to hurt yourself or someone else? Patient reports no desire to harm self or others. Onset of symptoms is unknown. 01:58 Method Of Arrival: Ambulatory br2 01:58 Acuity: DELVIS 5 br2 Triage Assessment: 02:00 General: Appears in no apparent distress. uncomfortable, Behavior is calm, cooperative. br2 Pain: Complains of pain in lower right second bicuspid, lower right first molar and lower right second molar Pain currently is 8 out of 10 on a pain scale. EENT: Reports pain DENTAL PAIN. Historical: - Allergies: 02:00 Amoxicillin; br2 - PMHx: 02:00 Anxiety; high heart rate; br2 - PSHx: 02:00 Cholecystectomy; br2 - Immunization history:: Adult Immunizations up to date. - Infectious Disease History:: Denies. - Social history:: Smoking status: Patient denies any tobacco usage or history of. Patient uses alcohol, occasionally. Patient/guardian denies using street drugs. - Family history:: not pertinent. Screenin:[address] [facility] ED Fall Risk Assessment (Adult) History of falling in the last 3 months, lg3 including since admission No falls in past 3 months (0 pts) Confusion or Disorientation No (0 pts) Intoxicated or Sedated No (0 pts) Impaired Gait No (0 pts) Mobility Assist Device Used No (0 pt) Altered Elimination No (0 pt) Score/Fall Risk Level 0 - 2 = Low Risk Oriented to surroundings, Maintained a safe environment, Educated pt \T\ family on fall prevention, incl call for assistance when getting out of bed, Assessed \T\ reinforced patient's understanding of fall precautions. Abuse screen: Denies threats or abuse. Denies injuries from another. Nutritional screening: No deficits noted. Tuberculosis screening: No symptoms or risk factors identified. Assessment: 02:07 General: Appears in no apparent distress. uncomfortable, Behavior is calm, cooperative. lg3 Pain: Complains of pain in mouth Pain does not radiate. Neuro: No deficits noted. Valenzuela Agitation-Sedation Scale (RASS): 0 - Alert and Calm Level of Consciousness is awake, alert, obeys commands, Oriented to person, place, time, situation. Cardiovascular: No deficits noted. Denies chest pain, shortness of breath, Capillary refill < 3 seconds Clubbing of nail beds is absent JVD is absent Patient's skin is warm and dry. Respiratory: No deficits noted. Airway is patent Respiratory effort is even, unlabored, Respiratory pattern is regular, symmetrical. GI: No deficits noted. No signs and/or symptoms were reported involving the gastrointestinal system. Abdomen is round non-distended, obese. : No signs and/or symptoms were reported regarding the genitourinary system. EENT: Oral mucosa is moist. Poor dentition noted. Reports pain in mouth. Derm: No deficits noted. No signs and/or symptoms reported regarding the dermatologic system. Skin is intact, is healthy with good turgor, Skin is dry, Skin is normal, Skin temperature is warm. Musculoskeletal: No deficits noted. No signs and/or symptoms reported regarding the musculoskeletal system. Circulation, motion, and sensation intact. Range of motion: intact in all extremities. 02:44 Reassessment: Patient appears in no apparent distress at this time. No changes from lg3 previously documented assessment. Patient and/or family updated on plan of care and expected duration. Pain level reassessed. Patient is alert, oriented x 3, equal unlabored respirations, skin warm/dry/pink. Patient states symptoms have improved. Vital Signs: 01:58 BP 117 / 89; Pulse 87; Resp 18; Temp 97.2(TE); Pulse Ox 97% on R/A; Weight 99.79 kg; br2 Height 5 ft. 6 in. ; Pain 8/10; 02:44 BP 121 / 84; Pulse 81; Resp 17 S; Pulse Ox 98% on R/A; lg3 01:58 Body Mass Index 35.51 (99.79 kg, 167.64 cm) br2 01:58 Pain Scale: Adult br2 ED Course: 01:42 Patient arrived in ED. jj6 01:44 Gab Boswell MD is Attending Physician. rt 02:00 Triage completed. br2 02:07 Patient has correct armband on for positive identification. Bed in low position. Call lg3 light in reach. Side rails up X 1. Client placed on continuous cardiac and pulse oximetry monitoring. NIBP monitoring applied. Door closed. Noise minimized. Warm blanket given. Pillow given. 02:07 Arm band placed on right wrist. lg3 02:10 Claribel Montana RN is Primary Nurse. lg3 02:44 Assist provider with nerve block (dental) Set up for procedure. Performed by Gab Boswell MD Patient tolerated well. Patient did not have IV access during this emergency room visit. Administered Medications: 02:26 Drug: Ketorolac IM 30 mg IM once Route: IM; Site: left deltoid; lg3 02:44 Follow up: Response: No adverse reaction lg3 02:26 Drug: Clindamycin PO 300 mg PO once Route: PO; lg3 02:43 Follow up: Response: No adverse reaction lg3 02:43 Drug: Bupivacaine Infiltration (0.5 %) 10 ml 10 ml Infiltration once Volume: 10 ml; lg3 Route: Infiltration; 02:43 Follow up: Response: No adverse reaction lg3 Medication: 02:07 VIS not applicable for this client. lg3 Outcome: 02:32 Discharge ordered by . rt 02:44 Discharged to home ambulatory, lg3 02:44 Condition: stable 02:44 Discharge instructions given to patient, Instructed on discharge instructions, follow up and referral plans. medication usage, Demonstrated understanding of instructions, follow-up care, medications, Prescriptions given X 1, 02:45 Patient left the ED. lg3 Signatures: Claribel Montana RN RN lg3 Joycelyn Patel jj6 Gab Boswell MD MD rt Beata Malloy RN RN br2
--- NOTE | 2024-12-10 02:32 | EDPHYS ---
Physician Documentation [facility] Name: Urvashi Molina Age: 24 yrs Sex: Female : 2000 Arrival Date: 12/10/2024 Time: 01:40 Bed 13 Private MD: ED Physician Gab Boswell HPI: 12/10 04:07 This 24 yrs old Female presents to ER via Ambulatory with complaints of rt Toothache. 04:07 Patient with known dental caries presents to the ED with right lower dental pain, rt worsening tonight. She has an appoint with her dentist in January. Denies other acute complaints at this time, symptoms are moderate severity, aching nature, nonradiating, no other aggravating or alleviating factors.. Historical: - Allergies: 02:00 Amoxicillin; br2 - PMHx: 02:00 Anxiety; high heart rate; br2 - PSHx: 02:00 Cholecystectomy; br2 - Immunization history:: Adult Immunizations up to date. - Infectious Disease History:: Denies. - Social history:: Smoking status: Patient denies any tobacco usage or history of. Patient uses alcohol, occasionally. Patient/guardian denies using street drugs. - Family history:: not pertinent. ROS: 04:07 Constitutional: Negative for fever, chills, and weight loss, Cardiovascular: Negative rt for chest pain, palpitations, and edema, Respiratory: Negative for shortness of breath, cough, wheezing, and pleuritic chest pain, Abdomen/GI: Negative for abdominal pain, nausea, vomiting, diarrhea, and constipation, MS/Extremity: Negative for injury and deformity, Skin: Negative for injury, rash, and discoloration, 04:07 ENT: Positive for dental pain, Negative for rhinorrhea, Exam: 04:07 Constitutional: This is a well developed, well nourished patient who is awake, alert, rt and in no acute distress. Head/Face: Normocephalic, atraumatic. Chest/axilla: Normal chest wall appearance and motion. Nontender with no deformity. No lesions are appreciated. Cardiovascular: Regular rate and rhythm with a normal S1 and S2. No gallops, murmurs, or rubs. Normal PMI, no JVD. No pulse deficits. Respiratory: Lungs have equal breath sounds bilaterally, clear to auscultation and percussion. No rales, rhonchi or wheezes noted. No increased work of breathing, no retractions or nasal flaring. 04:07 ENT: Multiple dental caries noted, no drainable abscess. Vital Signs: 01:58 BP 117 / 89; Pulse 87; Resp 18; Temp 97.2(TE); Pulse Ox 97% on R/A; Weight 99.79 kg; br2 Height 5 ft. 6 in. ; Pain 8/10; 02:44 BP 121 / 84; Pulse 81; Resp 17 S; Pulse Ox 98% on R/A; lg3 01:58 Body Mass Index 35.51 (99.79 kg, 167.64 cm) br2 01:58 Pain Scale: Adult br2 MDM: 02:09 Medical Screening Exam initiated rt 04:07 Differential diagnosis: dental caries. Data reviewed: vital signs, nurses notes. Test rt considered but Not performed: CT: No signs of drainable abscess, RPA, ADVERTISING SALES AGENT, Kalyan's angina, CT scan is not indicated. Counseling: I had a detailed discussion with the patient and/or guardian regarding the historical points, exam findings, and any diagnostic results supporting the discharge/admit diagnosis, the need for outpatient follow up. Response to treatment: the patient's symptoms have markedly improved after treatment, Patient responds well to inferior alveolar block. Administered Medications: 02:26 Drug: Ketorolac IM 30 mg IM once Route: IM; Site: left deltoid; lg3 02:44 Follow up: Response: No adverse reaction lg3 02:26 Drug: Clindamycin PO 300 mg PO once Route: PO; lg3 02:43 Follow up: Response: No adverse reaction lg3 02:43 Drug: Bupivacaine Infiltration (0.5 %) 10 ml 10 ml Infiltration once Volume: 10 ml; lg3 Route: Infiltration; 02:43 Follow up: Response: No adverse reaction lg3 Disposition Summary: 12/10/24 02:32 Discharge Ordered Notes: Location: Home rt Problem: an ongoing problem rt Symptoms: have improved rt Condition: Stable rt Diagnosis - Dental caries, unspecified rt Followup: rt - With: Private Physician - When: 2 - 3 days - Reason: Discharge Instructions: - Discharge Summary Sheet rt - Dental Caries, Adult rt Forms: - Medication Reconciliation Form rt - Antibiotic Education rt - Prescription Opioid Use rt - Patient Portal Instructions rt - Leadership Thank You Letter rt Prescriptions: - Clindamycin HCl 300 mg Oral Capsule - take 1 capsule ORAL route every 6 hours for 10 days; 40 capsule; Refills: 0, rt Product Selection Permitted Signatures: Claribel Montana RN RN lg3 Gab Boswell MD MD rt Beata Malloy, RN RN br2
[2024-12-10 05:16] VITALS: TEMP 97.2
[2024-12-10 05:20] VITALS: BP 121/84; O2SAT 98
== END 2024-12-10 02:45 | disposition home or self-care (01) ==
LOC: ER 01:40
DX: K02.9 Dental caries, unspecified (principal)
CPT/HCPCS: 96372; 99284

== ENCOUNTER 2025-03-14 16:39 | Emergency (ER) | payer OTHER, SELFPAY ==
--- OUTSIDE RECORDS SUMMARY | 2025-03-14 16:58 | XMS REPORT | Continuity of Care Document ---
Author Name Unknown Address [address] [facility] [address] [place] [address] [facility] [place] Address [address] [facility] [address] [place] [address] Care Team Providers Care Movement Assembly Final Inspector Name Role Phone Catalina Lacy Primary Care Physician [phone] ZOE GOODMAN Attending Clinician UnavailReyes Forrester Attending Clinician + Zoe Goodman CNM Attending Clinician [phone] Catalina Lacy Attending Clinician [phone] JILLIAN CRUZ Attending Clinician Unavailable Jama Ramos Attending Clinician [phone] Unknown, Attending Attending Clinician Unavailab JAMA Wing Attending Clinician Unavailable Blaire Tapia RN Attending Clinician UnavailCATALINA Zheng Attending Clinician Unavailable Reyes Hampton Attending Clinician + Monty Stringer Attending Clinician [phone] Unknown, Attending Attending Clinician UnavailMONTY Ceja Attending Clinician Unavailable Catalina Lacy Attending Clinician [phone] Doctor Unassigned, [place] Attending Clinician U navailable Lab, Ang - Db Attending Clinician Unavailable CAPRICE STOVER Attending Clinician Unavailable Caprice Cruz Attending Clinician [phone] oZe Goodman CNM Attending Clinician [phone] REYES RICHARDS Attending Clinician Unavail able JANETTE CLAY Attending Clinician Unavailable [facility], [facility] Attending Clinician Unava ilcristy Smith RN, Alma Delia Tinsley Attending Clinician Unavailab EMI Richey Attending Clinician Unavailable Britt RIVERA, Emi Attending Clinician [phone] Bharti Diaz MD Attending Clinician [phone] Bulmaro Newberry MD Attending Clinician [phone] Rohith Choudhury Attending Clinician [phone] SHANNAN VIRK Attending Clinician Unavailable Risk, Sxh-Scgyb-Oo/High Attending Clinician Unav ailable Sully Shannan MCGHEE Attending Clinician [phone] HANNAH DANG Attending Clinician Unavailable HANNAH DANG Attending Clinician Unavailable Alton RIVERA, Hannah Martinez Attending Clinician [phone] Avril PORTILLO, Velia Martinez Attending Clinician Unavailable Victorino PORTILLO, Lorena Attending Clinician Unavailabl e Ultrasound, [facility] Attending Clinician Unavaila BETTIE Ty Attending Clinician UnaBETTIE Goins Attending Clinician Toshia Kelly RN Attending Clinician Unavailabl brandie Arceo MD, Jose Attending Clinician [phone] Jayde Lopez RN Attending Clinician Hannah vailable Lab, [facility] Attending Clinician Unavailable Alexa Watkins MD Attending Clinician [phone] ALEXA WATKINS Attending Clinician Unavailable ALEXA WATKINS Attending Clinician Unavailable 4, [facility] Attending Clinician Unavaila KAREN Hernández Attending Clinician Unavailab Karen Monroe DO Attending Clinician + [phone] Lawson PORTILLO, Fermin Unger Attending Clinician Unavailabl KAYLENE Wiggins Attending Clinician Unavailable Johnston MARGIN TRIMMER, Kaylene Attending Clinician [phone] JOE GLORIA Attending Clinician Unavailable Mari MARGIN TRIMMER, Anum Attending Clinician [phone] ANUM GUERRA Attending Clinician Unavailsommer fink Provider, [facility] Attending Clinician Unavailable CHRISTINE PENA Attending Clinician Unavailable Green MARGIN TRIMMER, Christine Attending Clinician [phone] Kena MARGIN TRIMMER, Britney Pedro Attending Clinician + [phone] Omaghomi MARGIN TRIMMER, Omayemi Attending Clinician +[phone] VINCENT HERNANDEZ Attending Clinician Unavailab luoisa Hernandez MARGIN TRIMMER, Vincent Unger Attending Clinician + [phone] BRUCE CALLEJAS Attending Clinician Unavailable Trimester, [facility] Attending Clinician Unavailable Bruce Callejas MD Attending Clinician +[phone] EUN SANTOS Attending Clinician Unavailable Eun Santos MD Attending Clinician +[phone] JAKE KOCH III Attending Clinician Unavailabl e HERMELINDO MATIAS Attending Clinician Unavailabl e Josee Raymond Attending Clinician + [phone] Sarika Fuller MD Attending Clinician [phone] [facility]END[facility]UDD [facility] Attending Clinician Unavaila Eloisa Oquendo RN Attending Clinician Unavailab louisa Walton, [facility] Attending Clinician Unavailab Rashel Lizama MD Attending Clinician + Shae Cullen RN Attending Clinician Unavailable Nima RIVERA, [facility] Attending Clinician + [phone] Gretchen Chavez MD, Tyler Attending Clinician + Provider, [facility] Attending Clinician Un available Shay MI, Cristian Attending Clinician [phone] CRISTIAN DAY Attending Clinician Unavailable 2, [facility] Attending Clinician Unavailsalazar alexander Faculty, [facility] Attending Clinician Ran Smiley MD Attending Clinician [phone] Lab, [facility] Attending Clinician Unavailable 1, [facility] Attending Clinician Unavailsalazar Ocasio MARGIN TRIMMER, Aleyda Attending Clinician [phone] Luis Eduardo IRVERA, Rebecca Haines Attending Clinician + Provider, [facility] Tem Attending Clinician Hannah Joycelyn Benavides Attending Clinician +- [phone] Ezra PORTILLO, Shannan Watson Attending Clinician Unavailsalazar Dorsey RN, Kaylene Arroyo Attending Clinician Unavaila Amy Aguero DO Attending Clinician +[phone] Taj RIVERA, Swati Gonzalez Attending Clinician [phone] SARIKA FULLER Attending Clinician Unavailable TYLER MALDONADO Attending Clinician Unagraham Cortes RN, Karina Martinez Attending Clinician Unavail able CUONG ZAPATA Attending Clinician Unavailable DEVIN MATHEW Attending Clinician Unavailable HANNAH DANG Admitting Clinician Unavailable SARIKA FULLER Admitting Clinician Unavailable EMI JURADO Admitting Clinician Unavailable Britt RIVERA, Emi Admitting Clinician +[phone] Hannah Dang MD Admitting Clinician +[phone] BETTIE GONZALEZ Admitting Clinician UnaEUN Ruiz Admitting Clinician Unavailable Sarika Fuller MD Admitting Clinician +[phone] Rebecca Hoff MD Admitting Clinician + Swati Vang MD Admitting Clinician [phone] CUONG ZAPATA Admitting Clinician Unavailable Payers Payer Name Policy Type Policy Number Effective Date Expirati on Date Source [facility] [id number] 2019 00:00:00 ENTRUST [id number] 2019 00:00:00 Problems Condition Name Condition Details Condition Category Status Onset Date Resolution Date Last Treatment Date Treating Clinician Comments Source Rubella non-immune status, antepartum Rubella non-immune status, antepartum Disease Active 03-07 00:00: 00 [facility] Previous delivery affecting , antepartum Previous delivery affecting , antepartum Disease Active 0 03-06 00:00: 00 [facility] Tubal ligation status Tubal ligation status Disease Active 03-06 00:00: 00 [facility] Anxiety and depression Anxiety and depression Disease Active 01-04 00:00: 00 [facility] Anxiety and depression during Anxiety and depression during Disease Active 01-04 00:00: 00 [facility] related nausea, antepartum related nausea, antepartum Disease Active 7 00:00: 00 [facility] Declined flu vaccine Declined flu vaccine Disease Active 2019-08 0- 00:00: 00 [facility] History of gestationa l hypertensi on History of gestationa l hypertensi on Disease Active 2019-08 0- 00:00: 00 [facility] Anxiety Anxiety Disease Active 2019-08 0 00:00: 00 [facility] Obesity affecting Obesity affecting Disease Active 2- 00:00: 00 [facility] Obesity affecting Obesity affecting Disease Active 2018-08 0- 00:00: 00 [facility] Leukocytos is, unspecifie d type Leukocytos is, unspecifie d type Active Problem 09/07/2018 eCW: [facility] Problem Active 2018-09-07 05:10:56 Elisa Seals Lower abdominal pain Lower abdominal pain Active Diagnosis 08/30/2018 [facility]: [facility] Diagnosis Active 2018-08-30 05:15:14 Elisa Seals Encounter for screening Encounter for screening Active Diagnosis 08/30/2018 eCW: [facility] Diagnosis Active 2018-08-30 05:15:14 Elisa Seals Acute vaginitis Acute vaginitis Disease Resolve d 01-04 00:00: 00 2025-03-06 00:00:00 2025-03-06 10:40:53 [facility] Other general counseling and advice for contracept ojhn management Other general counseling and advice for contracept john management Disease Resolve d 11-01 00:00: 00 2025-03-06 00:00:00 2025-03-06 10:41:23 [facility] Need for HPV vaccinatio n Need for HPV vaccinatio n Disease Resolve d 3- 00:00: 00 2025-03-06 00:00:00 2025-03-06 10:41:26 [facility] Declined flu vaccine Declined flu vaccine Disease Resolve d 2019-08 0-20 00:00: 00 2025-03-06 00:00:00 2025-03-06 10:41:25 [facility] Delivery by section using T-shaped incision Delivery by section using T-shaped incision Disease Active - 00:00: 00 2023-11-02 00:00:00 2023-11-02 11:16:24 [facility] Multiparit y Multiparit y Disease Resolve d 1-03 00:00: 00 2023-11-02 00:00:00 2023-11-02 11:17:15 [facility] 37 weeks gestation of 37 weeks gestation of Disease Resolve d 2-07 00:00: 00 2023-09-22 00:00:00 2023-09-22 16:31:29 [facility] Decreased movement affecting management of in third trimester, not applicable or unspecifie d fetus Decreased movement affecting management of in third trimester, not applicable or unspecifie d fetus Disease Resolve d 2-07 00:00: 00 2023-09-22 00:00:00 2023-09-22 16:31:30 [facility] Headache in , antepartum , third trimester Headache in , antepartum , third trimester Disease Resolve d 2-07 00:00: 00 2023-09-22 00:00:00 2023-09-22 16:31:33 [facility] 36 weeks gestation of 36 weeks gestation of Disease Resolve d 0 2-02 00:00: 00 2023-09-22 00:00:00 2023-09-22 16:31:37 [facility] Supervisio n of high-risk Supervisio n of high-risk Disease Resolve d 1-03 00:00: 00 2023-09-22 00:00:00 2023-09-22 16:31:49 [facility] UTI (urinary tract infection) during UTI (urinary tract infection) during Disease Active 2022-08 0-25 00:00: 00 2023-09-22 00:00:00 2023-09-22 16:31:51 [facility] GBS (group B streptococ cus) UTI complicati ng GBS (group B streptococ cus) UTI complicati ng Disease Resolve d 8-07 00:00: 00 2023-09-22 00:00:00 2023-09-22 16:31:32 [facility] History of miscarriag e, currently History of miscarriag e, currently Disease Active 7-06 00:00: 00 2023-09-22 00:00:00 2023-09-22 16:31:46 [...] 00:00:00 2023-09-22 16:31:42 [facility] Anxiety during Anxiety during Disease Resolve d 2019-08 0-20 00:00: 00 2023-09-22 00:00:00 2023-09-22 16:31:42 [facility] Anemia of mother in , antepartum Anemia of mother in , antepartum Disease Resolve d 4-01 00:00: 00 2023-09-22 00:00:00 2023-09-22 16:31:40 [facility] Obesity during Obesity during Disease Resolve d 2018- 0-28 00:00: 00 2023-09-22 00:00:00 2023-09-22 16:31:36 [...] or test, negative result Disease Resolve d 5-02 00:00: 00 2023-02-11 00:00:00 2023-02-11 08:32:46 [facility] SAB (spontaneo us ) SAB (spontaneo us ) Disease Resolve d 5-02 00:00: 00 2023-02-11 00:00:00 2023-02-11 08:32:48 [...] Obesity in Obesity in Disease Resolve d 0 2-01 00:00: 00 2023-02-11 00:00:00 2023-02-11 08:32:45 [facility] Anemia of mother in , condition Anemia of mother in , condition Disease Resolve d 0 6-05 00:00: 00 2021-10-21 00:00:00 2021-10-21 14:51:23 [facility] Single live Single live Disease Resolve d 0 6-05 00:00: 00 2021-10-21 00:00:00 2021-10-21 14:51:08 [facility] Single live Single live Disease Resolve d 0 6-05 00:00: 00 2021-10-21 00:00:00 2021-10-21 14:51:08 [facility] Obesity (BMI 30-39.9) Obesity (BMI 30-39.9) Disease Resolve d 0 6-03 00:00: 00 2021-10-21 00:00:00 2021-10-21 14:51:11 [...] placenta Circumvall ate placenta Disease Resolve d 0 2-01 00:00: 00 2021-10-21 00:00:00 2021-10-21 14:51:18 [facility] Headache in Headache in Disease Resolve d 2020-0 1-15 00:00: 00 2021-10-21 00:00:00 2021-10-21 14:51:15 [facility] (spontaneo us vaginal delivery) (spontaneo us vaginal delivery) Disease Resolve d 2019-0 6-15 00:00: 00 2021-10-21 00:00:00 2021-10-21 14:51:04 [facility] Nausea and vomiting during Nausea and vomiting during Disease Resolve d 2020-0 5-28 00:00: 00 2021-01-09 00:00:00 2021-01-09 14:30:46 [facility] Nausea and vomiting during Nausea and vomiting during Disease Resolve d 2020-0 5-28 00:00: 00 2021-01-09 00:00:00 2021-01-09 14:30:46 [facility] Pain of round ligament during Pain of round ligament during Disease Resolve d 2020-0 5-03 00:00: 00 2021-01-09 00:00:00 2021-01-09 14:30:45 [facility] Routine follow-up Routine follow-up Disease Resolve d 2019-0 7-13 00:00: 00 2020-05-28 00:00:00 2020-05-28 13:43:04 [facility] Elevated blood pressure reading without diagnosis of hypertensi on Elevated blood pressure reading without diagnosis of hypertensi on Disease Resolve d 2019-0 6-12 00:00: 00 2020-05-28 00:00:00 2020-05-28 13:43:11 [facility] [employer] Hick's contractio n Severino Hick's contractio n [...] Inactive Date Treating Clinician Comments Source Amoxicil glnena Propensi ty to adverse reaction s Active Rash 03-05 00:00: 00 [facility] AMOXICIL GLENNA DRUG INGREDI Active High Rash 03-05 00:00: 00 [facility] N.K.D.A. N.K.D.A. Active Info Not Available 2017-08 00:00: 00 Elisa Seals Social History Social Habit Start Date Stop Date Quantity Comments Source ASSERTION 2025-02-07 00:00:00 [facility] Gender identity [facility] Sexual orientation [facility] History of Occupation [facility] History of Social function 2025-03-06 00:00:00 2025-03-06 00:00:00 [facility] Alcoholic beverage intake 2025-03-06 00:00:00 2025-03-06 00:00:00 0 /d [facility] Alcohol intake 2023-11-02 00:00:00 2023-11-02 00:00:00 0 /d [facility] Exposure to SARS-CoV-2 (event) 2022-12-20 00:00:00 2022-12-30 16:27:00 Not sure [facility] Tobacco use and exposure 2022-02-16 00:00:00 2022-02-16 00:00:00 Smokeless tobacco non-user [facility] Sex assigned at 2000 00:00:00 2000 00:00:00 [facility] Smoking Status Start Date Stop Date Source Never smoked tobacco [facility] Medications Ordered Medication Name Filled Medication Name Start Date Stop Date Current Medication? Ordering Clinician Indication Dosage Frequency Signature (SIG) Comments Components Source proMETHazin e 25 mg tablet 03-14 00:00: 00 Yes [id number] 25mg Take 1 tablet by mouth every 6 hours as needed for Nausea and Vomiting (N/V). [facility] meclizine 12.5 mg tablet 2023-08 00:00: 00 07-10 05:59 :00 No [id number] 12.5mg Take 1 tablet by mouth 3 (three) times daily as needed for Dizziness or Nausea for up to 5 days. [facility] ketorolac (TORADOL) injection 30 mg 01-22 01:45: 00 01-22 01:03 :00 No [id number] 30mg [facility] clindamycin 300 mg capsule 01-21 00:00: 00 02-01 04:59 :00 No [id number] 300mg Take 1 capsule by mouth 4 (four) times daily for 10 days. [facility] SERTraline 100 mg tablet 01-04 00:00: 00 Yes [id number] 200mg Take 2 tablets by mouth in the morning. [facility] fluconazole (DIFLUCAN) 150 mg tablet 01-04 00:00: 00 03-06 00:00 :00 No [id number] Take 1 tab today and repeat 1 in 72 hrs [facility] SERTRALINE 100 mg tablet 11-28 00:00: 00 01-04 00:00 :00 No [id number] 109 100mg TAKE 1 TABLET BY MOUTH EVERY DAY IN THE MORNING [facility] famotidine (PEPCID AC) tablet 20 mg 09-18 02:00: 00 Yes 20mg 20 mg, Oral, [...] First dose (after last modificati on) on Janeth 09/16/23 at 2345, Until Discontinu ed, Routine [facility] [id number] fum-folic () 27 mg iron- 1 mg folic tablet 09-17 00:00: 00 11-01 00:00 :00 No [id number] 1{tbl} Take 1 tablet by mouth in the morning. [facility] docusate 100 mg capsule 09-17 00:00: 00 11-01 00:00 :00 No [id number] 200mg Take 2 capsules by mouth once daily as needed for Constipati on. [facility] ferrous sulfate 325 mg (65 mg iron) tablet 09-17 00:00: 00 11-01 00:00 :00 No [id number] 325mg Take 1 tablet by mouth in the morning. [facility] ibuprofen 600 mg tablet 09-17 00:00: 11-01 00:00 :00 No [id number] 600mg Take 1 tablet by mouth every [...] 800 mg, Oral, Q8HA1, First dose on Wed09/16/23 at 1145, Until Discontinu ed, Routine [facility] acetaminoph en (TYLENOL) tablet 1,000 mg 09-16 16:00: 00 Yes 1000mg 1,000 mg, Oral, Q8H, First dose on Wed09/16/23 at 1000, Until Discontinu ed, Routine [facility] rho(D) immune globulin (RHOGAM) syringe 300 mcg 09-16 15:49: 41 Yes 300ug 300 mcg, Intramuscu lar, ONCE, For 1 dose, Conditiona l, Routine [facility] oxyCODONE immediate release tablet 5 mg 09-16 15:49: 37 Yes 5mg 5 mg, Oral, Q6HPRN, Starting on Wed09/16/23 at 0949, Until Discontinu ed, Routine, Pain (scale 7-10)
F aculty member approving Restricted medication : BHARTI DIAZ [facility] diphenhydrA MINE (BENADRYL) injection 25 mg 09-16 15:49: 37 Yes 25mg 25 mg, Slow IV Push, Q6HPRN, Starting on Wed09/16/23 at 0949, Until Discontinu ed, Routine, Itching [facility] diphenhydrA MINE (BENADRYL) tablet 25 mg 09-16 15:49: 37 Yes 25mg 25 mg, Oral, Q6HPRN, Starting on Wed09/16/23 at 0949, Until Discontinu ed, Routine, Sleep, Itching [facility] ondansetron (ZOFRAN (PF)) injection 4 mg 09-16 15:49: 37 Yes 4mg 4 mg, Slow IV Push, Q8HPRN, Starting on Wed09/16/23 at 0949, Until Discontinu ed, Routine, Nausea [...] IV Infusion, PRN, 1 dose, Starting on Janeth 09/16/23 at 0949, Until Discontinu ed, Routine [facility] ketorolac (TORADOL) injection 30 mg 2023-09-16 13:45: 00 09-16 13:21 :00 No 30mg 30 mg, Slow IV Push, ONCE, 1 dose, On Janeth 09/16/23 at 0745, Routine, PACU [facility] acetaminoph en (OFIRMEV) IV piggyback 1,000 mg 09-16 13:15: 00 09-16 13:35 :00 No 1000mg 1,000 mg, IV Piggyback, at 400 mL/hr Administer over 15 Minutes, ONCE, 1 dose, On Janeth 09/16/23 at 0715, Routine, PACU
In dication: Strict NPO and unable to tolerate oral medication s
Is the patient strict NPO and unable to tolerate oral medication s? Yes [facility] morpHINE (2 mg/mL) injection 4 mg 09-16 13:08: 08 Yes 4mg 4 mg, Slow IV Push, Q5MIN PRN, 2 doses, Starting on Janeth 09/16/23 at 0708, Until Discontinu ed, Routine, Pain (scale 7-10), PACU [facility] FENTanyl PF (SUBLIMAZE (PF)) injection 25 mcg 09-16 13:08: 08 Yes 25ug 25 mcg, Slow IV Push, Q5MIN PRN, 4 doses, Starting on Janeth 09/16/23 at 0708, Until Discontinu ed, Routine, Pain (scale 4-6), PACU [facility] ondansetron (ZOFRAN (PF)) injection 4 mg 09-16 13:08: 08 09-16 15:13 :00 No 4mg 4 mg, Slow IV Push, PRN, 1 dose, Starting on Janeth 09/16/23 at 0708, Until Discontinu ed, Routine, Nausea and Vomiting (N/V), PACU [facility] morpHINE PF (DURAMORPH- PF) injection 09-16 12:45: 00 09-16 13:04 :50 No Epidural, ONCE INTRA PROCEDURE, Starting on Janeth 09/16/23 at 0645, Until Janeth 09/16/23 at 0704, Routine, Intra-op [facility] phenylephri ne (VAZCULEP) injection 09-16 12:38: 00 09-16 13:04 :50 No Intravenou s, ONCE INTRA PROCEDURE, Starting on Janeth 09/16/23 at 0638, Until Janeth 09/16/23 at 0704, Routine, Intra-op [facility] FENTanyl PF (SUBLIMAZE (PF)) injection 09-16 12:24: 00 09-16 13:04 :50 No Epidural, ONCE INTRA PROCEDURE, Starting on Janeth 09/16/23 at 0624, Until Discontinu ed, Routine, Intra-op [facility] oxytocin (PITOCIN) 30 units in NS 500 mL IV infusion 09-16 12:17: 00 09-16 13:04 :50 No IV Infusion, CONTINUOUS PRN, Starting on Janeth 09/16/23 at 0617, Until Janeth 09/16/23 at 0704, Routine, Intra-op [facility] lidocaine-e pinephrine (XYLOCAINE W/EPINEPHRI NE) 2 %-1:200,000 injection 09-16 12:11: 00 09-16 13:04 :50 No Intravenou s, ONCE INTRA PROCEDURE, Starting on Janeth 09/16/23 at 0611, Until Discontinu ed, Routine, Intra-op [facility] lactated ringers IV infusion 09-16 11:55: 00 09-16 13:04 :50 No IV Infusion, CONTINUOUS PRN, Starting on Janeth 09/16/23 at 0555, Until Discontinu ed, Routine, Intra-op [facility] lactated ringers IV infusion 500 mL 09-16 08:00: 00 09-16 07:26 :29 No 500mL at 999 mL/hr, 500 mL, IV Infusion, ONCE, 1 dose, On Janeth 09/16/23 at 0200, Routine [facility] ropivacaine 0.2 % (NAROPIN (PF)) epidural infusion [...] TITRATE, Starting on Wed09/15/23 at 1609, Until Wed09/16/23 at 0949, RANDELL [facility] D5W-LR IV infusion 1,000 mL 09-15 22:06: 08 09-16 15:49 :39 No 1000mL at 1-125 mL/hr, IV Infusion, TITRATE, Starting on Wed09/15/23 at 1606, Until Janeth 09/16/23 at 0949, Routine [facility] proCHLORper azine (COMPAZINE) tablet 10 mg 09-15 [...] ringers IV infusion 500 mL 09-10 23:30: 00 09-10 22:59 :00 No 500mL at 999 mL/hr, 500 mL, Intravenou s, ONCE, 1 dose, On Wed09/10/23 at 1730, Routine [facility] ferrous sulfate 325 mg (65 mg iron) tablet 09-10 00:00: 00 09-17 00:00 :00 No [id number] 325mg Take 1 tablet by mouth in the morning and 1 tablet in the evening. [facility] ascorbic acid, vitamin C, 500 mg tablet 09-10 00:00: 00 09-17 00:00 :00 No [id number] 500mg Take 1 tablet by mouth in the morning and 1 tablet at noon and 1 tablet in the evening. [facility] fluconazole (DIFLUCAN) 150 mg tablet 08-11 00:00: 00 08-12 05:59 :00 No [id number] 150mg Take 1 tablet by mouth once now for 1 dose. [facility] ondansetron (ZOFRAN) tablet 4 mg 2022-08 2- 01:30: 00 08-03 01:04 :00 No 4mg 4 mg, Oral, ONCE, 1 dose, On Wed08/02/23 at 1930, Routine [facility] Iron Fum & P-FA-Vit B & C No.9 (INTEGRA PLUS) 125 mg iron- 1 mg Cap 2022-08 2- 00:00: 00 09-17 00:00 :00 No [id number] 1{capsu le} Take 1 capsule by mouth in the morning. [facility] fluconazole (DIFLUCAN) 150 mg tablet - 00:00: 00 05-06 04:59 :00 No [id number] 150mg Take 1 tablet by mouth once now for 1 dose. [facility] fluconazole (DIFLUCAN) 150 mg tablet 9-14 00:00: 00 04-23 04:59 :00 No [id number] 150mg Take 1 tablet by mouth once now for 1 dose. [facility] cephALEXin (KEFLEX) 500 mg capsule 9-11 00:00: 00 04-30 04:59 :00 No [id number] 500mg Take 1 capsule by mouth 4 (four) times daily for 10 days. [facility] SERTraline 100 mg tablet 04-08 00:00: 00 11-28 00:00 :00 No [id number] 109 100mg Take 1 tablet by mouth in the morning. [facility] ondansetron 4 mg disintegrat ing tablet 04-08 00:00: 00 08-11 00:00 :00 No [id number] 4mg Take 1 tablet by mouth every 8 (eight) hours as needed for Nausea and Vomiting (N/V). [facility] aspirin 81 mg EC tablet 03-24 00:00: 00 09-17 00:00 :00 No [id number] 81mg Take 1 tablet by mouth in the morning. [facility] ondansetron 4 mg disintegrat ing tablet 03-24 00:00: 00 04-08 00:00 :00 No [id number] 4mg Take 1 tablet by mouth every 8 (eight) hours as needed for Nausea and Vomiting (N/V). [facility] cephALEXin (KEFLEX) 500 mg capsule 03-15 00:00: 00 03-26 04:59 :00 No [id number] 500mg Take 1 capsule by mouth 4 (four) times daily for 10 days. [facility] proMETHazin e 25 mg tablet 03-11 00:00: 00 09-17 00:00 :00 No [id number] 25mg Take 1 tablet by mouth every [...] 03-02 00:00: 00 04-08 00:00 :00 No [id number] 50mg Take 1 tablet by mouth in the morning. [facility] ondansetron 4 mg disintegrat ing tablet 03-01 00:00: 00 03-24 00:00 :00 No [id number] 4mg Take 1 tablet by mouth every 8 (eight) hours as needed for Nausea and Vomiting (N/V). [facility] SERTraline 50 mg tablet 03-01 00:00: 00 03-01 00:00 :00 No [id number] 50mg Take 1 tablet by mouth in the morning. [facility] fluconazole (DIFLUCAN) 150 mg tablet 12-30 00:00: 00 12-31 04:59 :00 No [id number] 150mg Take 1 tablet by mouth once now for 1 dose. [facility] SERTraline (ZOLOFT) 50 mg tablet 12-25 00:00: 00 03-02 00:00 :00 No [id number] 50mg Take 1 tablet by mouth in the morning. [facility] SERTraline (ZOLOFT) 50 mg tablet 2021-08 00:00: 00 12-25 00:00 :00 No [id number] 50mg Take 1 tablet by mouth in the morning. [facility] busPIRone 10 mg tablet 2021-08 00:00: 00 09-07 05:59 :00 No [id number] 10mg Take 1 tablet by mouth 2 (two) times daily as needed (anxiety) for up to 30 days. [facility] azithromyci n 250 mg tablet 2021-08 0-10 00:00: 00 12-30 00:00 :00 No [id number] 250mg Z-Chikis = 500 mg day 1, then 250 mg days 2 to 5. [facility] SERTraline (ZOLOFT) 50 mg tablet - 00:00: 00 08-07 00:00 :00 No [id number] 50mg Take 1 tablet by mouth in the morning. [facility] SERTraline (ZOLOFT) 50 mg tablet - 00:00: 00 Yes [id number] 50mg Take 1 tablet by mouth in the morning. [facility] busPIRone 10 mg tablet - 00:00: 00 03-19 04:59 :00 No [id number] 10mg Take 1 tablet by mouth 2 (two) times daily as needed (anxiety) for up to 30 days. [facility] methylPREDN ISolone (MEDROL, CHIKIS,) 4 mg tablets 6-10 00:00: 00 02-11 00:00 :00 No [id number] Take by mouth SEE-INSTRU CTIONS. follow package directions [facility] fluconazole (DIFLUCAN) 150 mg tablet 5-06 00:00: 00 05-18 00:00 :00 No [id number] Take one pill now and repeat in 3 days if needed [facility] multivitami n ( VITAMIN) tablet 3-15 00:00: 00 02-11 00:00 :00 No [id number] 1{tbl} Take 1 tablet by mouth daily. [facility] multivitami n ( VITAMIN) tablet -15 00:00: 00 02-11 00:00 :00 No [id number] 1{tbl} Take 1 tablet by mouth daily. [facility] vitamin w/FA tablet 6-05 00:00: 00 02-11 00:00 :00 No [id number] 1{tbl} Take 1 tablet by mouth daily. [facility] vitamin w/FA tablet 6-05 00:00: 00 02-11 00:00 :00 No [id number] 1{tbl} Take 1 tablet by mouth daily. [facility] Cipro 2017- 2-20 00:00: 00 Yes Janette Sullivan 1 tab(s) Elisa Seals Immunizations Ordered Immunization Name Filled Immunization Name Date Status Comments Source HPV9 2023-11-02 00:00:00 Completed [facility] TDAP 2023-08-11 00:00:00 Completed TDAP 2020-11-08 00:00:00 Completed [facility] TDAP 2020-11-08 00:00:00 Completed [facility] TDAP 2020-11-08 00:00:00 Completed [facility] TDAP 2020-11-08 00:00:00 Completed [facility] TDAP 2020-11-08 00:00:00 Completed [facility] TDAP 2020-11-08 00:00:00 Completed [facility] TDAP 2020-11-08 00:00:00 Completed [facility] TDAP 2020-11-08 00:00:00 Completed [facility] TDAP 2020-11-08 00:00:00 Completed [facility] TDAP 2020-11-08 00:00:00 Completed [facility] TDAP 2020-11-08 00:00:00 Completed [facility] TDAP 2020-11-08 00:00:00 Completed [facility] TDAP 2020-11-08 00:00:00 Completed [facility] TDAP 2020-11-08 00:00:00 Completed [facility] TDAP 2020-11-08 00:00:00 Completed [facility] TDAP 2020-11-08 00:00:00 Completed [facility] TDAP 2020-11-08 00:00:00 Completed [facility] TDAP 2020-11-08 00:00:00 Completed [facility] TDAP 2020-11-08 00:00:00 Completed [facility] TDAP 2020-11-08 00:00:00 Completed [facility] TDAP 2020-11-08 00:00:00 Completed [facility] TDAP 2020-11-08 00:00:00 Completed [facility] TDAP 2020-11-08 00:00:00 Completed [facility] [place] TDAP 2020-11-08 00:00:00 Completed [facility] TDAP 2020-11-08 00:00:00 Completed [facility] TDAP 2020-11-08 00:00:00 Completed [facility] [place] TDAP 2020-11-08 00:00:00 Completed [facility] TDAP 2020-11-08 00:00:00 Completed [facility] TDAP 2020-11-08 00:00:00 Completed [facility] TDAP 2019-11-21 00:00:00 Completed [facility] TDAP 2019-11-21 00:00:00 Completed [facility] TDAP 2019-11-21 00:00:00 Completed [facility] TDAP 2019-11-21 00:00:00 Completed [facility] TDAP 2019-11-21 00:00:00 Completed [facility] TDAP 2019-11-21 00:00:00 Completed [facility] TDAP 2019-11-21 00:00:00 Completed [facility] TDAP 2019-11-21 00:00:00 Completed [facility] TDAP 2019-11-21 00:00:00 Completed [facility] TDAP 2019-11-21 00:00:00 Completed [facility] TDAP 2019-11-21 00:00:00 Completed [facility] TDAP 2019-11-21 00:00:00 Completed [facility] TDAP 2019-11-21 00:00:00 Completed [facility] TDAP 2019-11-21 00:00:00 Completed [facility] TDAP 2019-11-21 00:00:00 Completed [facility] TDAP 2019-11-21 00:00:00 Completed [facility] TDAP 2019-11-21 00:00:00 Completed [facility] TDAP 2019-11-21 00:00:00 Completed [facility] TDAP 2019-11-21 00:00:00 Completed [facility] TDAP 2019-11-21 00:00:00 Completed [facility] TDAP 2019-11-21 00:00:00 Completed [facility] TDAP 2019-11-21 00:00:00 Completed [facility] TDAP 2019-11-21 00:00:00 Completed [facility] TDAP 2019-11-21 00:00:00 Completed [facility] TDAP 2019-11-21 00:00:00 Completed [facility] TDAP 2019-11-21 00:00:00 Completed [facility] TDAP 2019-11-21 00:00:00 Completed [facility] TDAP 2019-11-21 00:00:00 Completed [facility] TDAP 2019-11-21 00:00:00 Completed [facility] Influenza Virus Vaccine Quad .5 mL IM 6+ MO 2017-05-04 00:00:00 Completed [facility] Influenza Virus Vaccine Quad .5 mL IM 6+ MO 2017-05-04 00:00:00 Completed [facility] Influenza Virus Vaccine Quad .5 mL IM 6+ MO 2017-05-04 00:00:00 Completed [facility] Influenza Virus Vaccine Quad .5 mL IM 6+ MO 2017-05-04 00:00:00 Completed [facility] Influenza Virus Vaccine Quad .5 mL IM 6+ MO 2017-05-04 00:00:00 Completed [facility] Influenza Virus Vaccine Quad .5 mL IM 6+ MO 2017-05-04 00:00:00 Completed [facility] Influenza Virus Vaccine Quad .5 mL IM 6+ MO 2017-05-04 00:00:00 Completed [facility] Influenza Virus Vaccine Quad .5 mL IM 6+ MO 2017-05-04 00:00:00 Completed [facility] Influenza Virus Vaccine Quad .5 mL IM 6+ MO 2017-05-04 00:00:00 Completed [facility] Influenza Virus Vaccine Quad .5 mL IM 6+ MO 2017-05-04 00:00:00 Completed [facility] Influenza Virus Vaccine Quad .5 mL IM 6+ MO 2017-05-04 00:00:00 Completed [facility] Influenza Virus Vaccine Quad .5 mL IM 6+ MO 2017-05-04 00:00:00 Completed [facility] Influenza Virus Vaccine Quad .5 mL IM 6+ MO 2017-05-04 00:00:00 Completed [facility] Influenza Virus Vaccine Quad .5 mL IM 6+ MO 2017-05-04 00:00:00 Completed [facility] Influenza Virus Vaccine Quad .5 mL IM 6+ MO 2017-05-04 00:00:00 Completed [facility] Influenza Virus Vaccine Quad .5 mL IM 6+ MO 2017-05-04 00:00:00 Completed [facility] Influenza Virus Vaccine Quad .5 mL IM 6+ MO 2017-05-04 00:00:00 Completed [facility] Influenza Virus Vaccine Quad .5 mL IM 6+ MO 2017-05-04 00:00:00 Completed [facility] Influenza Virus Vaccine Quad .5 mL IM 6+ MO (FLUZONE/FLULAVAL/FL UARIX) 2017-05-04 00:00:00 Completed [facility] Influenza Virus Vaccine Quad .5 mL IM 6+ MO (FLUZONE/FLULAVAL/FL UARIX) 2017-05-04 00:00:00 Completed [facility] Influenza Virus Vaccine Quad .5 mL IM 6+ MO (FLUZONE/FLULAVAL/FL UARIX) 2017-05-04 00:00:00 Completed HPV 2014-07-18 00:00:00 Completed [facility] HPV 2014-07-18 00:00:00 Completed [facility] HPV 2014-07-18 00:00:00 Completed [facility] HPV 2014-07-18 00:00:00 Completed [facility] HPV 2014-07-18 00:00:00 Completed [facility] HPV 2014-07-18 00:00:00 Completed [facility] HPV 2014-07-18 00:00:00 Completed [facility] HPV 2014-07-18 00:00:00 Completed [facility] HPV 2014-07-18 00:00:00 Completed [facility] HPV 2014-07-18 00:00:00 Completed [facility] HPV 2014-07-18 00:00:00 Completed [facility] HPV 2014-07-18 00:00:00 Completed [facility] HPV 2014-07-18 00:00:00 Completed [facility] HPV 2014-07-18 00:00:00 Completed [facility] HPV 2014-07-18 00:00:00 Completed [facility] HPV 2014-07-18 00:00:00 Completed [facility] HPV 2014-07-18 00:00:00 Completed [facility] HPV 2014-07-18 00:00:00 Completed [facility] HPV 2014-07-18 00:00:00 Completed [facility] HPV 2014-07-18 00:00:00 Completed [facility] HPV 2014-07-18 00:00:00 Completed HPV 2014-04-30 00:00:00 Completed [facility] HPV 2014-04-30 00:00:00 Completed [facility] HPV 2014-04-30 00:00:00 Completed [facility] HPV 2014-04-30 00:00:00 Completed [facility] HPV 2014-04-30 00:00:00 Completed [facility] HPV 2014-04-30 00:00:00 Completed [facility] HPV 2014-04-30 00:00:00 Completed [facility] HPV 2014-04-30 00:00:00 Completed [facility] HPV 2014-04-30 00:00:00 Completed [facility] HPV 2014-04-30 00:00:00 Completed [facility] HPV 2014-04-30 00:00:00 Completed [facility] HPV 2014-04-30 00:00:00 Completed [facility] HPV 2014-04-30 00:00:00 Completed [facility] HPV 2014-04-30 00:00:00 Completed [facility] HPV 2014-04-30 00:00:00 Completed [facility] HPV 2014-04-30 00:00:00 Completed [facility] HPV 2014-04-30 00:00:00 Completed [facility] HPV 2014-04-30 00:00:00 Completed [facility] HPV 2014-04-30 00:00:00 Completed [facility] HPV 2014-04-30 00:00:00 Completed [facility] HPV 2014-04-30 00:00:00 Completed TDAP 2013-03-13 00:00:00 Completed [facility] TDAP 2013-03-13 00:00:00 Completed [facility] TDAP 2013-03-13 00:00:00 Completed [facility] TDAP 2013-03-13 00:00:00 Completed [facility] TDAP 2013-03-13 00:00:00 Completed [facility] TDAP 2013-03-13 00:00:00 Completed [facility] TDAP 2013-03-13 00:00:00 Completed [facility] TDAP 2013-03-13 00:00:00 Completed [facility] TDAP 2013-03-13 00:00:00 Completed [facility] TDAP 2013-03-13 00:00:00 Completed [facility] TDAP 2013-03-13 00:00:00 Completed [facility] TDAP 2013-03-13 00:00:00 Completed [facility] TDAP 2013-03-13 00:00:00 Completed [facility] TDAP 2013-03-13 00:00:00 Completed [facility] TDAP 2013-03-13 00:00:00 Completed [facility] TDAP 2013-03-13 00:00:00 Completed [facility] TDAP 2013-03-13 00:00:00 Completed [facility] TDAP 2013-03-13 00:00:00 Completed [facility] TDAP 2013-03-13 00:00:00 Completed [facility] TDAP 2013-03-13 00:00:00 Completed [facility] TDAP 2013-03-13 00:00:00 Completed [facility] TDAP 2013-03-13 00:00:00 Completed [facility] TDAP 2013-03-13 00:00:00 Completed [facility] TDAP 2013-03-13 00:00:00 Completed [facility] TDAP 2013-03-13 00:00:00 Completed [facility] TDAP 2013-03-13 00:00:00 Completed [facility] TDAP 2013-03-13 00:00:00 Completed [facility] TDAP 2013-03-13 00:00:00 Completed [facility] TDAP 2013-03-13 00:00:00 Completed [facility] Meningococcal Polysaccharide (groups A, C, Y and W-135) conjugate vaccine (MCV4P) 2011-12-04 00:00:00 Completed [facility] TDAP 2011-12-04 00:00:00 Completed [facility] Varicella (varivax)(chicken pox) 2011-12-04 00:00:00 Completed [facility] Meningococcal Polysaccharide (groups A, C, Y and W-135) conjugate vaccine (MCV4P) 2011-12-04 00:00:00 Completed [facility] TDAP 2011-12-04 00:00:00 Completed [facility] Varicella (varivax)(chicken pox) 2011-12-04 00:00:00 Completed [facility] Meningococcal Polysaccharide (groups A, C, Y and W-135) conjugate vaccine (MCV4P) 2011-12-04 00:00:00 Completed [facility] TDAP 2011-12-04 00:00:00 Completed [facility] Varicella (varivax)(chicken pox) 2011-12-04 00:00:00 Completed [facility] Meningococcal Polysaccharide (groups A, C, Y and W-135) conjugate vaccine (MCV4P) 2011-12-04 00:00:00 Completed [facility] TDAP 2011-12-04 00:00:00 Completed [facility] Varicella (varivax)(chicken pox) 2011-12-04 00:00:00 Completed [facility] Meningococcal Polysaccharide (groups A, C, Y and W-135) conjugate vaccine (MCV4P) 2011-12-04 00:00:00 Completed [facility] TDAP 2011-12-04 00:00:00 Completed [facility] Varicella (varivax)(chicken pox) 2011-12-04 00:00:00 Completed [facility] Meningococcal Polysaccharide (groups A, C, Y and W-135) conjugate vaccine (MCV4P) 2011-12-04 00:00:00 Completed [facility] TDAP 2011-12-04 00:00:00 Completed [facility] Varicella (varivax)(chicken pox) 2011-12-04 00:00:00 Completed [facility] Meningococcal Polysaccharide (groups A, C, Y and W-135) conjugate vaccine (MCV4P) 2011-12-04 00:00:00 Completed [facility] TDAP 2011-12-04 00:00:00 Completed [facility] Varicella (varivax)(chicken pox) 2011-12-04 00:00:00 Completed [facility] Meningococcal Polysaccharide (groups A, C, Y and W-135) conjugate vaccine (MCV4P) 2011-12-04 00:00:00 Completed [facility] TDAP 2011-12-04 00:00:00 Completed [facility] Varicella (varivax)(chicken pox) 2011-12-04 00:00:00 Completed [facility] Meningococcal Polysaccharide (groups A, C, Y and W-135) conjugate vaccine (MCV4P) 2011-12-04 00:00:00 Completed [facility] TDAP 2011-12-04 00:00:00 Completed [facility] Varicella (varivax)(chicken pox) 2011-12-04 00:00:00 Completed [facility] Meningococcal Polysaccharide (groups A, C, Y and W-135) conjugate vaccine (MCV4P) 2011-12-04 00:00:00 Completed [facility] TDAP 2011-12-04 00:00:00 Completed [facility] Varicella (varivax)(chicken pox) 2011-12-04 00:00:00 Completed [facility] Meningococcal Polysaccharide (groups A, C, Y and W-135) conjugate vaccine (MCV4P) 2011-12-04 00:00:00 Completed [facility] TDAP 2011-12-04 00:00:00 Completed [facility] Varicella (varivax)(chicken pox) 2011-12-04 00:00:00 Completed [facility] Meningococcal Polysaccharide (groups A, C, Y and W-135) conjugate vaccine (MCV4P) 2011[facility]12-04 [facility] Varicella (varivax)(chicken pox) 2011-12-04 00:00:00 Completed [facility] Meningococcal Polysaccharide (groups A, C, Y and W-135) conjugate vaccine (MCV4P) 2011-12-04 [facility] Varicella (varivax)(chicken pox) 2011-12-04 00:00:00 Completed [facility] Meningococcal Polysaccharide (groups A, C, Y and W-135) conjugate vaccine (MCV4P) 2011-12-04 00:00:00 Completed [facility] TDAP 2011-12-04 00:00:00 Completed [facility] Varicella (varivax)(chicken pox) 2011-12-04 00:00:00 Completed [facility] Meningococcal Polysaccharide (groups A, C, Y and W-135) conjugate vaccine (MCV4P) 2011-12-04 00:00:00 Completed [facility] TDAP 2011-12-04 00:00:00 Completed [facility] Varicella (varivax)(chicken pox) 2011-12-04 00:00:00 Completed [facility] Meningococcal Polysaccharide (groups A, C, Y and W-135) conjugate vaccine (MCV4P) 2011-12-04 00:00:00 Completed [facility] TDAP 2011-12-04 00:00:00 Completed [facility] Varicella (varivax)(chicken pox) 2011-12-04 00:00:00 Completed [facility] Meningococcal Polysaccharide (groups A, C, Y and W-135) conjugate vaccine (MCV4P) 2011-12-04 00:00:00 Completed [facility] TDAP 2011-12-04 00:00:00 Completed [facility] Varicella (varivax)(chicken pox) 2011-12-04 00:00:00 Completed [facility] Meningococcal Polysaccharide (groups A, C, Y and W-135) conjugate vaccine (MCV4P) 2011-12-04 00:00:00 Completed [facility] TDAP 2011-12-04 00:00:00 Completed [facility] Varicella (varivax)(chicken pox) 2011-12-04 00:00:00 Completed [facility] Meningococcal Polysaccharide (groups A, C, Y and W-135) conjugate vaccine (MCV4P) 2011-12-04 00:00:00 Completed [facility] TDAP 2011-12-04 00:00:00 Completed [facility] Varicella (varivax)(chicken pox) 2011-12-04 00:00:00 Completed [facility] Meningococcal Polysaccharide (groups A, C, Y and W-135) conjugate vaccine (MCV4P) 2011-12-04 00:00:00 Completed [facility] TDAP 2011-12-04 00:00:00 Completed [facility] Varicella (varivax)(chicken pox) 2011-12-04 00:00:00 Completed [facility] Meningococcal Polysaccharide (groups A, C, Y and W-135) conjugate vaccine (MCV4P) 2011-12-04 00:00:00 Completed TDAP 2011-12-04 00:00:00 Completed Varicella (varivax)(chicken pox) 2011-12-04 00:00:00 Completed DTaP, Unspecified Formulation 2003-04-02 00:00:00 Completed [facility] MMR 2003-04-02 00:00:00 Completed [facility] IPV 2003-04-02 00:00:00 Completed [facility] DTaP, Unspecified Formulation 2003-04-02 00:00:00 Completed [facility] MMR 2003-04-02 00:00:00 Completed [facility] IPV 2003-04-02 00:00:00 Completed [facility] DTaP, Unspecified Formulation 2003-04-02 00:00:00 Completed [facility] MMR 2003-04-02 00:00:00 Completed [facility] IPV 2003-04-02 00:00:00 Completed [facility] DTaP, Unspecified Formulation 2003-04-02 00:00:00 Completed [facility] MMR 2003-04-02 00:00:00 Completed [facility] IPV 2003-04-02 00:00:00 Completed [facility] DTaP, Unspecified Formulation 2003-04-02 00:00:00 Completed [facility] MMR 2003-04-02 00:00:00 Completed [facility] IPV 2003-04-02 00:00:00 Completed [facility] DTaP, Unspecified Formulation 2003-04-02 00:00:00 Completed [facility] MMR 2003-04-02 00:00:00 Completed [facility] IPV 2003-04-02 00:00:00 Completed [facility] DTaP, Unspecified Formulation 2003-04-02 00:00:00 Completed [facility] MMR 2003-04-02 00:00:00 Completed [facility] IPV 2003-04-02 00:00:00 Completed [facility] DTaP, Unspecified Formulation 2003-04-02 00:00:00 Completed [facility] MMR 2003-04-02 00:00:00 Completed [facility] IPV 2003-04-02 00:00:00 Completed [facility] DTaP, Unspecified Formulation 2003-04-02 00:00:00 Completed [facility] MMR 2003-04-02 00:00:00 Completed [facility] IPV 2003-04-02 00:00:00 Completed [facility] DTaP, Unspecified Formulation 2003-04-02 00:00:00 Completed [facility] MMR 2003-04-02 00:00:00 Completed [facility] IPV 2003-04-02 00:00:00 Completed [facility] DTaP, Unspecified Formulation 2003-04-02 00:00:00 Completed [facility] MMR 2003-04-02 00:00:00 Completed [facility] IPV 2003-04-02 00:00:00 Completed [facility] DTaP, Unspecified Formulation 2003-04-02 00:00:00 Completed [facility] MMR 2003-04-02 00:00:00 Completed [facility] IPV 2003-04-02 00:00:00 Completed [facility] DTaP, Unspecified Formulation 2003-04-02 00:00:00 Completed [facility] MMR 2003-04-02 00:00:00 Completed [facility] IPV 2003-04-02 00:00:00 Completed [facility] DTaP, Unspecified Formulation 2003-04-02 00:00:00 Completed [facility] MMR 2003-04-02 00:00:00 Completed [facility] IPV 2003-04-02 00:00:00 Completed [facility] DTaP, Unspecified Formulation 2003-04-02 00:00:00 Completed [facility] MMR 2003-04-02 00:00:00 Completed [facility] IPV 2003-04-02 00:00:00 Completed [facility] DTaP, Unspecified Formulation 2003-04-02 00:00:00 Completed [facility] MMR 2003-04-02 00:00:00 Completed [facility] IPV 2003-04-02 00:00:00 Completed [facility] DTaP, Unspecified Formulation 2003-04-02 00:00:00 Completed [facility] MMR 2003-04-02 00:00:00 Completed [facility] IPV 2003-04-02 00:00:00 Completed [facility] DTaP, Unspecified Formulation 2003-04-02 00:00:00 Completed [facility] MMR 2003-04-02 00:00:00 Completed [facility] IPV 2003-04-02 00:00:00 Completed [facility] DTaP, Unspecified Formulation 2003-04-02 00:00:00 Completed [facility] MMR 2003-04-02 00:00:00 Completed [facility] IPV 2003-04-02 00:00:00 Completed [facility] DTaP, Unspecified Formulation 2003-04-02 00:00:00 Completed [facility] MMR 2003-04-02 00:00:00 Completed [facility] IPV 2003-04-02 00:00:00 Completed [facility] DTaP, Unspecified Formulation 2003-04-02 00:00:00 Completed MMR 2003-04-02 00:00:00 Completed IPV 2003-04-02 00:00:00 Completed DTaP, Unspecified Formulation 2000-11-04 00:00:00 Completed [facility] DTaP, Unspecified Formulation 2000-11-04 00:00:00 Completed [facility] DTaP, Unspecified Formulation 2000-11-04 00:00:00 Completed [facility] DTaP, Unspecified Formulation 2000-11-04 00:00:00 Completed [facility] DTaP, Unspecified Formulation 2000-11-04 00:00:00 Completed [facility] DTaP, Unspecified Formulation 2000-11-04 00:00:00 Completed [facility] DTaP, Unspecified Formulation 2000-11-04 00:00:00 Completed [facility] DTaP, Unspecified Formulation 2000-11-04 00:00:00 Completed [facility] DTaP, Unspecified Formulation 2000-11-04 00:00:00 Completed [facility] DTaP, Unspecified Formulation 2000-11-04 00:00:00 Completed [facility] DTaP, Unspecified Formulation 2000-11-04 00:00:00 Completed [facility] DTaP, Unspecified Formulation 2000-11-04 00:00:00 Completed [facility] DTaP, Unspecified Formulation 2000-11-04 00:00:00 Completed [facility] DTaP, Unspecified Formulation 2000-11-04 00:00:00 Completed [facility] DTaP, Unspecified Formulation 2000-11-04 00:00:00 Completed [facility] DTaP, Unspecified Formulation 2000-11-04 00:00:00 Completed [facility] DTaP, Unspecified Formulation 2000-11-04 00:00:00 Completed [facility] DTaP, Unspecified Formulation 2000-11-04 00:00:00 Completed [facility] DTaP, Unspecified Formulation 2000-11-04 00:00:00 Completed [facility] DTaP, Unspecified Formulation 2000-11-04 00:00:00 Completed [facility] DTaP, Unspecified Formulation 2000-11-04 00:00:00 Completed Haemophilus influenzae type b vaccine, conjugate unspecified formulation 2000-06-09 00:00:00 Completed [facility] MMR 2000-06-09 00:00:00 Completed [facility] Haemophilus influenzae type b vaccine, conjugate unspecified formulation 2000-06-09 00:00:00 Completed [facility] MMR 2000-06-09 00:00:00 Completed [facility] Haemophilus influenzae type b vaccine, conjugate unspecified formulation 2000-06-09 00:00:00 Completed [facility] MMR 2000-06-09 00:00:00 Completed [facility] Haemophilus influenzae type b vaccine, conjugate unspecified formulation 2000-06-09 00:00:00 Completed [facility] MMR 2000-06-09 00:00:00 Completed [facility] Haemophilus influenzae type b vaccine, conjugate unspecified formulation 2000-06-09 00:00:00 Completed [facility] MMR 2000-06-09 00:00:00 Completed [facility] Haemophilus influenzae type b vaccine, conjugate unspecified formulation 2000-06-09 00:00:00 Completed [facility] MMR 2000-06-09 00:00:00 Completed [facility] Haemophilus influenzae type b vaccine, conjugate unspecified formulation 2000-06-09 00:00:00 Completed [facility] MMR 2000-06-09 00:00:00 Completed [facility] Haemophilus influenzae type b vaccine, conjugate unspecified formulation 2000-06-09 00:00:00 Completed [facility] MMR 2000-06-09 00:00:00 Completed [facility] Haemophilus influenzae type b vaccine, conjugate unspecified formulation 2000-06-09 00:00:00 Completed [facility] MMR 2000-06-09 00:00:00 Completed [facility] Haemophilus influenzae type b vaccine, conjugate unspecified formulation 2000-06-09 00:00:00 Completed [facility] MMR 2000-06-09 00:00:00 Completed [facility] Haemophilus influenzae type b vaccine, conjugate unspecified formulation 2000-06-09 00:00:00 Completed [facility] MMR 2000-06-09 00:00:00 Completed [facility] Haemophilus influenzae type b vaccine, conjugate unspecified formulation 2000-06-09 00:00:00 Completed [facility] MMR 2000-06-09 00:00:00 Completed [facility] Haemophilus influenzae type b vaccine, conjugate unspecified formulation 2000-06-09 00:00:00 Completed [facility] MMR 2000-06-09 00:00:00 Completed [facility] Haemophilus influenzae type b vaccine, conjugate unspecified formulation 2000-06-09 00:00:00 Completed [facility] MMR 2000-06-09 00:00:00 Completed [facility] Haemophilus influenzae type b vaccine, conjugate unspecified formulation 2000-06-09 00:00:00 Completed [facility] MMR 2000-06-09 00:00:00 Completed [facility] Haemophilus influenzae type b vaccine, conjugate unspecified formulation 2000-06-09 00:00:00 Completed [facility] MMR 2000-06-09 00:00:00 Completed [facility] Haemophilus influenzae type b vaccine, conjugate unspecified formulation 2000-06-09 00:00:00 Completed [facility] MMR 2000-06-09 00:00:00 Completed [facility] Haemophilus influenzae type b vaccine, conjugate unspecified formulation 2000-06-09 00:00:00 Completed [facility] MMR 2000-06-09 00:00:00 Completed [facility] Haemophilus influenzae type b vaccine, conjugate unspecified formulation 2000-06-09 00:00:00 Completed [facility] MMR 2000-06-09 00:00:00 Completed [facility] Haemophilus influenzae type b vaccine, conjugate unspecified formulation 2000-06-09 00:00:00 Completed [facility] MMR 2000-06-09 00:00:00 Completed [facility] Haemophilus influenzae type b vaccine, conjugate unspecified formulation 2000-06-09 00:00:00 Completed MMR 2000-06-09 00:00:00 Completed IPV 2000-03-23 00:00:00 Completed [facility] Varicella (varivax)(chicken pox) 2000-03-23 00:00:00 Completed [facility] IPV 2000-03-23 00:00:00 Completed [facility] Varicella (varivax)(chicken pox) 2000-03-23 00:00:00 Completed [facility] IPV 2000-03-23 00:00:00 Completed [facility] Varicella (varivax)(chicken pox) 2000-03-23 00:00:00 Completed [facility] IPV 2000-03-23 00:00:00 Completed [facility] Varicella (varivax)(chicken pox) 2000-03-23 00:00:00 Completed [facility] IPV 2000-03-23 00:00:00 Completed [facility] Varicella (varivax)(chicken pox) 2000-03-23 00:00:00 Completed [facility] IPV 2000-03-23 00:00:00 Completed [facility] Varicella (varivax)(chicken pox) 2000-03-23 00:00:00 Completed [facility] IPV 2000-03-23 00:00:00 Completed [facility] Varicella (varivax)(chicken pox) 2000-03-23 00:00:00 Completed [facility] IPV 2000-03-23 00:00:00 Completed [facility] Varicella (varivax)(chicken pox) 2000-03-23 00:00:00 Completed [facility] IPV 2000-03-23 00:00:00 Completed [facility] Varicella (varivax)(chicken pox) 2000-03-23 00:00:00 Completed [facility] IPV 2000-03-23 00:00:00 Completed [facility] Varicella (varivax)(chicken pox) 2000-03-23 00:00:00 Completed [facility] IPV 2000-03-23 00:00:00 Completed [facility] Varicella (varivax)(chicken pox) 2000-03-23 00:00:00 Completed [facility] IPV 2000-03-23 00:00:00 Completed [facility] Varicella (varivax)(chicken pox) 2000-03-23 00:00:00 Completed [facility] IPV 2000-03-23 00:00:00 Completed [facility] Varicella (varivax)(chicken pox) 2000-03-23 00:00:00 Completed [facility] IPV 2000-03-23 00:00:00 Completed [facility] Varicella (varivax)(chicken pox) 2000-03-23 00:00:00 Completed [facility] IPV 2000-03-23 00:00:00 Completed [facility] Varicella (varivax)(chicken pox) 2000-03-23 00:00:00 Completed [facility] IPV 2000-03-23 00:00:00 Completed [facility] Varicella (varivax)(chicken pox) 2000-03-23 00:00:00 Completed [facility] IPV 2000-03-23 00:00:00 Completed [facility] Varicella (varivax)(chicken pox) 2000-03-23 00:00:00 Completed [facility] IPV 2000-03-23 00:00:00 Completed [facility] Varicella (varivax)(chicken pox) 2000-03-23 00:00:00 Completed [facility] IPV 2000-03-23 00:00:00 Completed [facility] Varicella (varivax)(chicken pox) 2000-03-23 00:00:00 Completed [facility] IPV 2000-03-23 00:00:00 Completed [facility] Varicella (varivax)(chicken pox) 2000-03-23 00:00:00 Completed [facility] IPV 2000-03-23 00:00:00 Completed Varicella (varivax)(chicken pox) 2000-03-23 00:00:00 Completed Hep B, Adol or Pedi Dosage 1999 00:00:00 Completed [facility] Hep B, Adol or Pedi Dosage 1999 00:00:00 Completed [facility] Hep B, Adol or Pedi Dosage 1999 00:00:00 Completed [facility] Hep B, Adol or Pedi Dosage 1999 00:00:00 Completed [facility] Hep B, Adol or Pedi Dosage 1999 00:00:00 Completed [facility] Hep B, Adol or Pedi Dosage 1999 00:00:00 Completed [facility] Hep B, Adol or Pedi Dosage 1999 00:00:00 Completed [facility] Hep B, Adol or Pedi Dosage 1999 00:00:00 Completed [facility] Hep B, Adol or Pedi Dosage 1999 00:00:00 Completed [facility] Hep B, Adol or Pedi Dosage 1999 00:00:00 Completed [facility] Hep B, Adol or Pedi Dosage 1999 00:00:00 Completed [facility] Hep B, Adol or Pedi Dosage 1999 00:00:00 Completed [facility] Hep B, Adol or Pedi Dosage 1999 00:00:00 Completed [facility] Hep B, Adol or Pedi Dosage 1999 00:00:00 Completed [facility] Hep B, Adol or Pedi Dosage 1999 00:00:00 Completed [facility] Hep B, Adol or Pedi Dosage 1999 00:00:00 Completed [facility] Hep B, Adol or Pedi Dosage 1999 00:00:00 Completed [facility] Hep B, Adol or Pedi Dosage 1999 00:00:00 Completed [facility] Hep B, Adol or Pedi Dosage 1999 00:00:00 Completed [facility] Hep B, Adol or Pedi Dosage 1999 00:00:00 Completed [facility] Hep B, Adol or Pedi Dosage 1999 00:00:00 Completed DTaP, Unspecified Formulation 1999 00:00:00 Completed [facility] Hep B, Adol or Pedi Dosage 1999 00:00:00 Completed [facility] Haemophilus influenzae type b vaccine, conjugate unspecified formulation 1999 00:00:00 Completed [facility] DTaP, Unspecified Formulation 1999 00:00:00 Completed [facility] Hep B, Adol or Pedi Dosage 1999 00:00:00 Completed [facility] Haemophilus influenzae type b vaccine, conjugate unspecified formulation 1999 00:00:00 Completed [facility] DTaP, Unspecified Formulation 1999 00:00:00 Completed [facility] Hep B, Adol or Pedi Dosage 1999 00:00:00 Completed [facility] Haemophilus influenzae type b vaccine, conjugate unspecified formulation 1999 00:00:00 Completed [facility] DTaP, Unspecified Formulation 1999 00:00:00 Completed [facility] Hep B, Adol or Pedi Dosage 1999 00:00:00 Completed [facility] Haemophilus influenzae type b vaccine, conjugate unspecified formulation 1999 00:00:00 Completed [facility] DTaP, Unspecified Formulation 1999 00:00:00 Completed [facility] Hep B, Adol or Pedi Dosage 1999 00:00:00 Completed [facility] Haemophilus influenzae type b vaccine, conjugate unspecified formulation 1999 00:00:00 Completed [facility] DTaP, Unspecified Formulation 1999 00:00:00 Completed [facility] Hep B, Adol or Pedi Dosage 1999 00:00:00 Completed [facility] Haemophilus influenzae type b vaccine, conjugate unspecified formulation 1999 00:00:00 Completed [facility] DTaP, Unspecified Formulation 1999 00:00:00 Completed [facility] Hep B, Adol or Pedi Dosage 1999 00:00:00 Completed [facility] Haemophilus influenzae type b vaccine, conjugate unspecified formulation 1999 00:00:00 Completed [facility] DTaP, Unspecified Formulation 1999 00:00:00 Completed [facility] Hep B, Adol or Pedi Dosage 1999 00:00:00 Completed [facility] Haemophilus influenzae type b vaccine, conjugate unspecified formulation 1999 00:00:00 Completed [facility] DTaP, Unspecified Formulation 1999 00:00:00 Completed [facility] Hep B, Adol or Pedi Dosage 1999 00:00:00 Completed [facility] Haemophilus influenzae type b vaccine, conjugate unspecified formulation 1999 00:00:00 Completed [facility] DTaP, Unspecified Formulation 1999 00:00:00 Completed [facility] Hep B, Adol or Pedi Dosage 1999 00:00:00 Completed [facility] Haemophilus influenzae type b vaccine, conjugate unspecified formulation 1999 00:00:00 Completed [facility] DTaP, Unspecified Formulation 1999 00:00:00 Completed [facility] Hep B, Adol or Pedi Dosage 1999 00:00:00 Completed [facility] Haemophilus influenzae type b vaccine, conjugate unspecified formulation 1999 00:00:00 Completed [facility] DTaP, Unspecified Formulation 1999 00:00:00 Completed [facility] Hep B, Adol or Pedi Dosage 1999 00:00:00 Completed [facility] Haemophilus influenzae type b vaccine, conjugate unspecified formulation 1999 00:00:00 Completed [facility] DTaP, Unspecified Formulation 1999 00:00:00 Completed [facility] Hep B, Adol or Pedi Dosage 1999 00:00:00 Completed [facility] Haemophilus influenzae type b vaccine, conjugate unspecified formulation 1999 00:00:00 Completed [facility] DTaP, Unspecified Formulation 1999 00:00:00 Completed [facility] Hep B, Adol or Pedi Dosage 1999 00:00:00 Completed [facility] Haemophilus influenzae type b vaccine, conjugate unspecified formulation 1999 00:00:00 Completed [facility] DTaP, Unspecified Formulation 1999 00:00:00 Completed [facility] Hep B, Adol or Pedi Dosage 1999 00:00:00 Completed [facility] Haemophilus influenzae type b vaccine, conjugate unspecified formulation 1999 00:00:00 Completed [facility] DTaP, Unspecified Formulation 1999 00:00:00 Completed [facility] Hep B, Adol or Pedi Dosage 1999 00:00:00 Completed [facility] Haemophilus influenzae type b vaccine, conjugate unspecified formulation 1999 00:00:00 Completed [facility] DTaP, Unspecified Formulation 1999 00:00:00 Completed [facility] Hep B, Adol or Pedi Dosage 1999 00:00:00 Completed [facility] Haemophilus influenzae type b vaccine, conjugate unspecified formulation 1999 00:00:00 Completed [facility] DTaP, Unspecified Formulation 1999 00:00:00 Completed [facility] Hep B, Adol or Pedi Dosage 1999 00:00:00 Completed [facility] Haemophilus influenzae type b vaccine, conjugate unspecified formulation 1999 00:00:00 Completed [facility] DTaP, Unspecified Formulation 1999 00:00:00 Completed [facility] Hep B, Adol or Pedi Dosage 1999 00:00:00 Completed [facility] Haemophilus influenzae type b vaccine, conjugate unspecified formulation 1999 00:00:00 Completed [facility] DTaP, Unspecified Formulation 1999 00:00:00 Completed [facility] Hep B, Adol or Pedi Dosage 1999 00:00:00 Completed [facility] Haemophilus influenzae type b vaccine, conjugate unspecified formulation 1999 00:00:00 Completed [facility] DTaP, Unspecified Formulation 1999 00:00:00 Completed Hep B, Adol or Pedi Dosage 1999 00:00:00 Completed Haemophilus influenzae type b vaccine, conjugate unspecified formulation 1999 00:00:00 Completed DTaP, Unspecified Formulation 1999 00:00:00 Completed [facility] Haemophilus influenzae type b vaccine, conjugate unspecified formulation 1999 00:00:00 Completed [facility] IPV 1999 00:00:00 Completed [facility] DTaP, Unspecified Formulation 1999 00:00:00 Completed [facility] Haemophilus influenzae type b vaccine, conjugate unspecified formulation 1999 00:00:00 Completed [facility] IPV 1999 00:00:00 Completed [facility] DTaP, Unspecified Formulation 1999 00:00:00 Completed [facility] Haemophilus influenzae type b vaccine, conjugate unspecified formulation 1999 00:00:00 Completed [facility] IPV 1999 00:00:00 Completed [facility] DTaP, Unspecified Formulation 1999 00:00:00 Completed [facility] Haemophilus influenzae type b vaccine, conjugate unspecified formulation 1999 00:00:00 Completed [facility] IPV 1999 00:00:00 Completed [facility] DTaP, Unspecified Formulation 1999 00:00:00 Completed [facility] Haemophilus influenzae type b vaccine, conjugate unspecified formulation 1999 00:00:00 Completed [facility] IPV 1999 00:00:00 Completed [facility] DTaP, Unspecified Formulation 1999 00:00:00 Completed [facility] Haemophilus influenzae type b vaccine, conjugate unspecified formulation 1999 00:00:00 Completed [facility] IPV 1999 00:00:00 Completed [facility] DTaP, Unspecified Formulation 1999 00:00:00 Completed [facility] Haemophilus influenzae type b vaccine, conjugate unspecified formulation 1999 00:00:00 Completed [facility] IPV 1999 00:00:00 Completed [facility] DTaP, Unspecified Formulation 1999 00:00:00 Completed [facility] Haemophilus influenzae type b vaccine, conjugate unspecified formulation 1999 00:00:00 Completed [facility] IPV 1999 00:00:00 Completed [facility] DTaP, Unspecified Formulation 1999 00:00:00 Completed [facility] Haemophilus influenzae type b vaccine, conjugate unspecified formulation 1999 00:00:00 Completed [facility] IPV 1999 00:00:00 Completed [facility] DTaP, Unspecified Formulation 1999 00:00:00 Completed [facility] Haemophilus influenzae type b vaccine, conjugate unspecified formulation 1999 00:00:00 Completed [facility] IPV 1999 00:00:00 Completed [facility] DTaP, Unspecified Formulation 1999 00:00:00 Completed [facility] Haemophilus influenzae type b vaccine, conjugate unspecified formulation 1999 00:00:00 Completed [facility] IPV 1999 00:00:00 Completed [facility] DTaP, Unspecified Formulation 1999 00:00:00 Completed [facility] Haemophilus influenzae type b vaccine, conjugate unspecified formulation 1999 00:00:00 Completed [facility] IPV 1999 00:00:00 Completed [facility] DTaP, Unspecified Formulation 1999 00:00:00 Completed [facility] Haemophilus influenzae type b vaccine, conjugate unspecified formulation 1999 00:00:00 Completed [facility] IPV 1999 00:00:00 Completed [facility] DTaP, Unspecified Formulation 1999 00:00:00 Completed [facility] Haemophilus influenzae type b vaccine, conjugate unspecified formulation 1999 00:00:00 Completed [facility] IPV 1999 00:00:00 Completed [facility] DTaP, Unspecified Formulation 1999 00:00:00 Completed [facility] Haemophilus influenzae type b vaccine, conjugate unspecified formulation 1999 00:00:00 Completed [facility] IPV 1999 00:00:00 Completed [facility] DTaP, Unspecified Formulation 1999 00:00:00 Completed [facility] Haemophilus influenzae type b vaccine, conjugate unspecified formulation 1999 00:00:00 Completed [facility] IPV 1999 00:00:00 Completed [facility] DTaP, Unspecified Formulation 1999 00:00:00 Completed [facility] Haemophilus influenzae type b vaccine, conjugate unspecified formulation 1999 00:00:00 Completed [facility] IPV 1999 00:00:00 Completed [facility] DTaP, Unspecified Formulation 1999 00:00:00 Completed [facility] Haemophilus influenzae type b vaccine, conjugate unspecified formulation 1999 00:00:00 Completed [facility] IPV 1999 00:00:00 Completed [facility] DTaP, Unspecified Formulation 1999 00:00:00 Completed [facility] Haemophilus influenzae type b vaccine, conjugate unspecified formulation 1999 00:00:00 Completed [facility] IPV 1999 00:00:00 Completed [facility] DTaP, Unspecified Formulation 1999 00:00:00 Completed [facility] Haemophilus influenzae type b vaccine, conjugate unspecified formulation 1999 00:00:00 Completed [facility] IPV 1999 00:00:00 Completed [facility] DTaP, Unspecified Formulation 1999 00:00:00 Completed [facility] Haemophilus influenzae type b vaccine, conjugate unspecified formulation 1999 00:00:00 Completed IPV 1999 00:00:00 Completed IPV 1999 00:00:00 Completed [facility] IPV 1999 00:00:00 Completed [facility] IPV 1999 00:00:00 Completed [facility] IPV 1999 00:00:00 Completed [facility] IPV 1999 00:00:00 Completed [facility] IPV 1999 00:00:00 Completed [facility] IPV 1999 00:00:00 Completed [facility] IPV 1999 00:00:00 Completed [facility] IPV 1999 00:00:00 Completed [facility] IPV 1999 00:00:00 Completed [facility] IPV 1999 00:00:00 Completed [facility] IPV 1999 00:00:00 Completed [facility] IPV 1999 00:00:00 Completed [facility] IPV 1999 00:00:00 Completed [facility] IPV 1999 00:00:00 Completed [facility] IPV 1999 00:00:00 Completed [facility] IPV 1999 00:00:00 Completed [facility] IPV 1999 00:00:00 Completed [facility] IPV 1999 00:00:00 Completed [facility] IPV 1999 00:00:00 Completed [facility] IPV 1999 00:00:00 Completed TDAP Unknown Completed [facility] DTaP, Unspecified Formulation Unknown Completed [facility] Influenza Virus Vaccine Quad .5 mL IM 6+ MO (FLUZONE/FLULAVAL/FL UARIX) Unknown Completed [facility] Hep B, Adol or Pedi Dosage Unknown Completed [facility] Haemophilus influenzae type b vaccine, conjugate unspecified formulation Unknown Completed [facility] HPV Unknown Completed [facility] Meningococcal Polysaccharide (groups A, C, Y and W-135) conjugate vaccine (MCV4P) Unknown Completed [facility] MMR Unknown Completed [facility] IPV Unknown Completed [facility] Varicella (varivax)(chicken pox) Unknown Completed [facility] TDAP Unknown Completed [facility] DTaP, Unspecified Formulation Unknown Completed [facility] Influenza Virus Vaccine Quad .5 mL IM 6+ MO (FLUZONE/FLULAVAL/FL UARIX) Unknown Completed [facility] Hep B, Adol or Pedi Dosage Unknown Completed [facility] Haemophilus influenzae type b vaccine, conjugate unspecified formulation Unknown Completed [facility] HPV Unknown Completed [facility] Meningococcal Polysaccharide (groups A, C, Y and W-135) conjugate vaccine (MCV4P) Unknown Completed [facility] MMR Unknown Completed [facility] IPV Unknown Completed [facility] Varicella (varivax)(chicken pox) Unknown Completed [facility] TDAP Unknown Completed [facility] DTaP, Unspecified Formulation Unknown Completed [facility] Influenza Virus Vaccine Quad .5 mL IM 6+ MO (FLUZONE/FLULAVAL/FL UARIX) Unknown Completed [facility] Hep B, Adol or Pedi Dosage Unknown Completed [facility] Haemophilus influenzae type b vaccine, conjugate unspecified formulation Unknown Completed [facility] HPV Unknown Completed [facility] Meningococcal Polysaccharide (groups A, C, Y and W-135) conjugate vaccine (MCV4P) Unknown Completed [facility] MMR Unknown Completed [facility] IPV Unknown Completed [facility] Varicella (varivax)(chicken pox) Unknown Completed [facility] TDAP Unknown Completed [facility] DTaP, Unspecified Formulation Unknown Completed [facility] Influenza Virus Vaccine Quad .5 mL IM 6+ MO (FLUZONE/FLULAVAL/FL UARIX) Unknown Completed [facility] Hep B, Adol or Pedi Dosage Unknown Completed [facility] Haemophilus influenzae type b vaccine, conjugate unspecified formulation Unknown Completed [facility] HPV Unknown Completed [facility] Meningococcal Polysaccharide (groups A, C, Y and W-135) conjugate vaccine (MCV4P) Unknown Completed [facility] MMR Unknown Completed [facility] IPV Unknown Completed [facility] Varicella (varivax)(chicken pox) Unknown Completed [facility] DTaP, Unspecified Formulation Unknown Completed [facility] Influenza Virus Vaccine Quad .5 mL IM 6+ MO (FLUZONE/FLULAVAL/FL UARIX) Unknown Completed [facility] Hep B, Adol or Pedi Dosage Unknown Completed [facility] Haemophilus influenzae type b vaccine, conjugate unspecified formulation Unknown Completed [facility] HPV Unknown Completed [facility] Meningococcal Polysaccharide (groups A, C, Y and W-135) conjugate vaccine (MCV4P) Unknown Completed [facility] MMR Unknown Completed [facility] IPV Unknown Completed [facility] TDAP Unknown Completed [facility] Varicella (varivax)(chicken pox) Unknown Completed [facility] DTaP, Unspecified Formulation Unknown Completed [facility] Influenza Virus Vaccine Quad .5 mL IM 6+ MO (FLUZONE/FLULAVAL/FL UARIX) Unknown Completed [facility] Hep B, Adol or Pedi Dosage Unknown Completed [facility] Haemophilus influenzae type b vaccine, conjugate unspecified formulation Unknown Completed [facility] HPV Unknown Completed [facility] Meningococcal Polysaccharide (groups A, C, Y and W-135) conjugate vaccine (MCV4P) Unknown Completed [facility] MMR Unknown Completed [facility] IPV Unknown Completed [facility] TDAP Unknown Completed [facility] Varicella (varivax)(chicken pox) Unknown Completed [facility] TDAP Unknown Completed [facility] DTaP, Unspecified Formulation Unknown Completed [facility] Influenza Virus Vaccine Quad .5 mL IM 6+ MO (FLUZONE/FLULAVAL/FL UARIX) Unknown Completed [facility] Hep B, Adol or Pedi Dosage Unknown Completed [facility] Haemophilus influenzae type b vaccine, conjugate unspecified formulation Unknown Completed [facility] HPV Unknown Completed [facility] Meningococcal Polysaccharide (groups A, C, Y and W-135) conjugate vaccine (MCV4P) Unknown Completed [facility] MMR Unknown Completed [facility] IPV Unknown Completed [facility] Varicella (varivax)(chicken pox) Unknown Completed [facility] TDAP Unknown Completed [facility] DTaP, Unspecified Formulation Unknown Completed [facility] Influenza Virus Vaccine Quad .5 mL IM 6+ MO (FLUZONE/FLULAVAL/FL UARIX) Unknown Completed [facility] Hep B, Adol or Pedi Dosage Unknown Completed [facility] Haemophilus influenzae type b vaccine, conjugate unspecified formulation Unknown Completed [facility] HPV Unknown Completed [facility] Meningococcal Polysaccharide (groups A, C, Y and W-135) conjugate vaccine (MCV4P) Unknown Completed [facility] MMR Unknown Completed [facility] IPV Unknown Completed [facility] Varicella (varivax)(chicken pox) Unknown Completed [facility] TDAP Unknown Completed [facility] DTaP, Unspecified Formulation Unknown Completed [facility] Influenza Virus Vaccine Quad .5 mL IM 6+ MO (FLUZONE/FLULAVAL/FL UARIX) Unknown Completed [facility] Hep B, Adol or Pedi Dosage Unknown Completed [facility] Haemophilus influenzae type b vaccine, conjugate unspecified formulation Unknown Completed [facility] HPV Unknown Completed [facility] Meningococcal Polysaccharide (groups A, C, Y and W-135) conjugate vaccine (MCV4P) Unknown Completed [facility] MMR Unknown Completed [facility] IPV Unknown Completed [facility] Varicella (varivax)(chicken pox) Unknown Completed [facility] TDAP Unknown Completed [facility] DTaP, Unspecified Formulation Unknown Completed [facility] Influenza Virus Vaccine Quad .5 mL IM 6+ MO (FLUZONE/FLULAVAL/FL UARIX) Unknown Completed [facility] Hep B, Adol or Pedi Dosage Unknown Completed [facility] Haemophilus influenzae type b vaccine, conjugate unspecified formulation Unknown Completed [facility] HPV Unknown Completed [facility] Meningococcal Polysaccharide (groups A, C, Y and W-135) conjugate vaccine (MCV4P) Unknown Completed [facility] MMR Unknown Completed [facility] IPV Unknown Completed [facility] Varicella (varivax)(chicken pox) Unknown Completed [facility] TDAP Unknown Completed [facility] DTaP, Unspecified Formulation Unknown Completed [facility] Influenza Virus Vaccine Quad .5 mL IM 6+ MO (FLUZONE/FLULAVAL/FL UARIX) Unknown Completed [facility] Hep B, Adol or Pedi Dosage Unknown Completed [facility] Haemophilus influenzae type b vaccine, conjugate unspecified formulation Unknown Completed [facility] HPV Unknown Completed [facility] Meningococcal Polysaccharide (groups A, C, Y and W-135) conjugate vaccine (MCV4P) Unknown Completed [facility] MMR Unknown Completed [facility] IPV Unknown Completed [facility] Varicella (varivax)(chicken pox) Unknown Completed [facility] TDAP Unknown Completed [facility] DTaP, Unspecified Formulation Unknown Completed [facility] Influenza Virus Vaccine Quad .5 mL IM 6+ MO (FLUZONE/FLULAVAL/FL UARIX) Unknown Completed [facility] Hep B, Adol or Pedi Dosage Unknown Completed [facility] Haemophilus influenzae type b vaccine, conjugate unspecified formulation Unknown Completed [facility] HPV Unknown Completed [facility] Meningococcal Polysaccharide (groups A, C, Y and W-135) conjugate vaccine (MCV4P) Unknown Completed [facility] MMR Unknown Completed [facility] IPV Unknown Completed [facility] Varicella (varivax)(chicken pox) Unknown Completed [facility] TDAP Unknown Completed [facility] DTaP, Unspecified Formulation Unknown Completed [facility] Influenza Virus Vaccine Quad .5 mL IM 6+ MO (FLUZONE/FLULAVAL/FL UARIX) Unknown Completed [facility] Hep B, Adol or Pedi Dosage Unknown Completed [facility] Haemophilus influenzae type b vaccine, conjugate unspecified formulation Unknown Completed [facility] HPV Unknown Completed [facility] Meningococcal Polysaccharide (groups A, C, Y and W-135) conjugate vaccine (MCV4P) Unknown Completed [facility] MMR Unknown Completed [facility] IPV Unknown Completed [facility] Varicella (varivax)(chicken pox) Unknown Completed [facility] TDAP Unknown Completed [facility] DTaP, Unspecified Formulation Unknown Completed [facility] Influenza Virus Vaccine Quad .5 mL IM 6+ MO (FLUZONE/FLULAVAL/FL UARIX) Unknown Completed [facility] Hep B, Adol or Pedi Dosage Unknown Completed [facility] Haemophilus influenzae type b vaccine, conjugate unspecified formulation Unknown Completed [facility] HPV Unknown Completed [facility] Meningococcal Polysaccharide (groups A, C, Y and W-135) conjugate vaccine (MCV4P) Unknown Completed [facility] MMR Unknown Completed [facility] IPV Unknown Completed [facility] Varicella (varivax)(chicken pox) Unknown Completed [facility] Influenza Virus Vaccine Quad .5 mL IM 6+ MO (FLUZONE/FLULAVAL/FL UARIX) Unknown Completed [facility] Meningococcal Polysaccharide (groups A, C, Y and W-135) conjugate vaccine (MCV4P) Unknown Completed [facility] TDAP Unknown Completed [facility] DTaP, Unspecified Formulation Unknown Completed [facility] Hep B, Adol or Pedi Dosage Unknown Completed [facility] Haemophilus influenzae type b vaccine, conjugate unspecified formulation Unknown Completed [facility] HPV Unknown Completed [facility] MMR Unknown Completed [facility] IPV Unknown Completed [facility] Varicella (varivax)(chicken pox) Unknown Completed [facility] TDAP Unknown Completed [facility] DTaP, Unspecified Formulation Unknown Completed [facility] Influenza Virus Vaccine Quad .5 mL IM 6+ MO (FLUZONE/FLULAVAL/FL UARIX) Unknown Completed [facility] Hep B, Adol or Pedi Dosage Unknown Completed [facility] Haemophilus influenzae type b vaccine, conjugate unspecified formulation Unknown Completed [facility] HPV Unknown Completed [facility] Meningococcal Polysaccharide (groups A, C, Y and W-135) conjugate vaccine (MCV4P) Unknown Completed [facility] MMR Unknown Completed [facility] IPV Unknown Completed [facility] Varicella (varivax)(chicken pox) Unknown Completed [facility] TDAP Unknown Completed [facility] DTaP, Unspecified Formulation Unknown Completed [facility] Influenza Virus Vaccine Quad .5 mL IM 6+ MO (FLUZONE/FLULAVAL/FL UARIX) Unknown Completed [facility] Hep B, Adol or Pedi Dosage Unknown Completed [facility] Haemophilus influenzae type b vaccine, conjugate unspecified formulation Unknown Completed [facility] HPV Unknown Completed [facility] Meningococcal Polysaccharide (groups A, C, Y and W-135) conjugate vaccine (MCV4P) Unknown Completed [facility] MMR Unknown Completed [facility] IPV Unknown Completed [facility] Varicella (varivax)(chicken pox) Unknown Completed [facility] TDAP Unknown Completed [facility] DTaP, Unspecified Formulation Unknown Completed [facility] Influenza Virus Vaccine Quad .5 mL IM 6+ MO (FLUZONE/FLULAVAL/FL UARIX) Unknown Completed [facility] Hep B, Adol or Pedi Dosage Unknown Completed [facility] Haemophilus influenzae type b vaccine, conjugate unspecified formulation Unknown Completed [facility] HPV Unknown Completed [facility] Meningococcal Polysaccharide (groups A, C, Y and W-135) conjugate vaccine (MCV4P) Unknown Completed [facility] MMR Unknown Completed [facility] IPV Unknown Completed [facility] Varicella (varivax)(chicken pox) Unknown Completed [facility] TDAP Unknown Completed [facility] DTaP, Unspecified Formulation Unknown Completed [facility] Influenza Virus Vaccine Quad .5 mL IM 6+ MO (FLUZONE/FLULAVAL/FL UARIX) Unknown Completed [facility] Hep B, Adol or Pedi Dosage Unknown Completed [facility] Haemophilus influenzae type b vaccine, conjugate unspecified formulation Unknown Completed [facility] HPV Unknown Completed [facility] Meningococcal Polysaccharide (groups A, C, Y and W-135) conjugate vaccine (MCV4P) Unknown Completed [facility] MMR Unknown Completed [facility] IPV Unknown Completed [facility] Varicella (varivax)(chicken pox) Unknown Completed [facility] TDAP Unknown Completed [facility] DTaP, Unspecified Formulation Unknown Completed [facility] Influenza Virus Vaccine Quad .5 mL IM 6+ MO (FLUZONE/FLULAVAL/FL UARIX) Unknown Completed [facility] Hep B, Adol or Pedi Dosage Unknown Completed [facility] Haemophilus influenzae type b vaccine, conjugate unspecified formulation Unknown Completed [facility] HPV Unknown Completed [facility] Meningococcal Polysaccharide (groups A, C, Y and W-135) conjugate vaccine (MCV4P) Unknown Completed [facility] MMR Unknown Completed [facility] IPV Unknown Completed [facility] Varicella (varivax)(chicken pox) Unknown Completed [facility] TDAP Unknown Completed [facility] DTaP, Unspecified Formulation Unknown Completed [facility] Influenza Virus Vaccine Quad .5 mL IM 6+ MO (FLUZONE/FLULAVAL/FL UARIX) Unknown Completed [facility] Hep B, Adol or Pedi Dosage Unknown Completed [facility] Haemophilus influenzae type b vaccine, conjugate unspecified formulation Unknown Completed [facility] HPV Unknown Completed [facility] Meningococcal Polysaccharide (groups A, C, Y and W-135) conjugate vaccine (MCV4P) Unknown Completed [facility] MMR Unknown Completed [facility] IPV Unknown Completed [facility] Varicella (varivax)(chicken pox) Unknown Completed [facility] TDAP Unknown Completed [facility] DTaP, Unspecified Formulation Unknown Completed [facility] Influenza Virus Vaccine Quad .5 mL IM 6+ MO (FLUZONE/FLULAVAL/FL UARIX) Unknown Completed [facility] Hep B, Adol or Pedi Dosage Unknown Completed [facility] Haemophilus influenzae type b vaccine, conjugate unspecified formulation Unknown Completed [facility] HPV Unknown Completed [facility] Meningococcal Polysaccharide (groups A, C, Y and W-135) conjugate vaccine (MCV4P) Unknown Completed [facility] MMR Unknown Completed [facility] IPV Unknown Completed [facility] Varicella (varivax)(chicken pox) Unknown Completed [facility] TDAP Unknown Completed [facility] DTaP, Unspecified Formulation Unknown Completed [facility] Influenza Virus Vaccine Quad .5 mL IM 6+ MO (FLUZONE/FLULAVAL/FL UARIX) Unknown Completed [facility] Hep B, Adol or Pedi Dosage Unknown Completed [facility] Haemophilus influenzae type b vaccine, conjugate unspecified formulation Unknown Completed [facility] HPV Unknown Completed [facility] Meningococcal Polysaccharide (groups A, C, Y and W-135) conjugate vaccine (MCV4P) Unknown Completed [facility] MMR Unknown Completed [facility] IPV Unknown Completed [facility] Varicella (varivax)(chicken pox) Unknown Completed [facility] TDAP Unknown Completed [facility] DTaP, Unspecified Formulation Unknown Completed [facility] Influenza Virus Vaccine Quad .5 mL IM 6+ MO (FLUZONE/FLULAVAL/FL UARIX) Unknown Completed [facility] Hep B, Adol or Pedi Dosage Unknown Completed [facility] Haemophilus influenzae type b vaccine, conjugate unspecified formulation Unknown Completed [facility] HPV Unknown Completed [facility] Meningococcal Polysaccharide (groups A, C, Y and W-135) conjugate vaccine (MCV4P) Unknown Completed [facility] MMR Unknown Completed [facility] IPV Unknown Completed [facility] Varicella (varivax)(chicken pox) Unknown Completed [facility] TDAP Unknown Completed [facility] DTaP, Unspecified Formulation Unknown Completed [facility] Influenza Virus Vaccine Quad .5 mL IM 6+ MO (FLUZONE/FLULAVAL/FL UARIX) Unknown Completed [facility] Hep B, Adol or Pedi Dosage Unknown Completed [facility] Haemophilus influenzae type b vaccine, conjugate unspecified formulation Unknown Completed [facility] HPV Unknown Completed [facility] Meningococcal Polysaccharide (groups A, C, Y and W-135) conjugate vaccine (MCV4P) Unknown Completed [facility] MMR Unknown Completed [facility] IPV Unknown Completed [facility] Varicella (varivax)(chicken pox) Unknown Completed [facility] TDAP Unknown Completed [facility] DTaP, Unspecified Formulation Unknown Completed [facility] Influenza Virus Vaccine Quad .5 mL IM 6+ MO (FLUZONE/FLULAVAL/FL UARIX) Unknown Completed [facility] Hep B, Adol or Pedi Dosage Unknown Completed [facility] Haemophilus influenzae type b vaccine, conjugate unspecified formulation Unknown Completed [facility] HPV Unknown Completed [facility] Meningococcal Polysaccharide (groups A, C, Y and W-135) conjugate vaccine (MCV4P) Unknown Completed [facility] MMR Unknown Completed [facility] IPV Unknown Completed [facility] Varicella (varivax)(chicken pox) Unknown Completed [facility] TDAP Unknown Completed [facility] DTaP, Unspecified Formulation Unknown Completed [facility] Influenza Virus Vaccine Quad .5 mL IM 6+ MO (FLUZONE/FLULAVAL/FL UARIX) Unknown Completed [facility] Hep B, Adol or Pedi Dosage Unknown Completed [facility] Haemophilus influenzae type b vaccine, conjugate unspecified formulation Unknown Completed [facility] HPV Unknown Completed [facility] Meningococcal Polysaccharide (groups A, C, Y and W-135) conjugate vaccine (MCV4P) Unknown Completed [facility] MMR Unknown Completed [facility] IPV Unknown Completed [facility] Varicella (varivax)(chicken pox) Unknown Completed [facility] Influenza Virus Vaccine Quad .5 mL IM 6+ MO (FLUZONE/FLULAVAL/FL UARIX) Unknown Completed [facility] Meningococcal Polysaccharide (groups A, C, Y and W-135) conjugate vaccine (MCV4P) Unknown Completed [facility] DTaP, Unspecified Formulation Unknown Completed [facility] Hep B, Adol or Pedi Dosage Unknown Completed [facility] Haemophilus influenzae type b vaccine, conjugate unspecified formulation Unknown Completed [facility] HPV Unknown Completed [facility] MMR Unknown Completed [facility] IPV Unknown Completed [facility] TDAP Unknown Completed [facility] Varicella (varivax)(chicken pox) Unknown Completed [facility] TDAP Unknown Completed [facility] DTaP, Unspecified Formulation Unknown Completed [facility] Influenza Virus Vaccine Quad .5 mL IM 6+ MO (FLUZONE/FLULAVAL/FL UARIX) Unknown Completed [facility] Hep B, Adol or Pedi Dosage Unknown Completed [facility] Haemophilus influenzae type b vaccine, conjugate unspecified formulation Unknown Completed [facility] HPV Unknown Completed [facility] Meningococcal Polysaccharide (groups A, C, Y and W-135) conjugate vaccine (MCV4P) Unknown Completed [facility] MMR Unknown Completed [facility] IPV Unknown Completed [facility] Varicella (varivax)(chicken pox) Unknown Completed [facility] TDAP Unknown Completed [facility] DTaP, Unspecified Formulation Unknown Completed [facility] Influenza Virus Vaccine Quad .5 mL IM 6+ MO (FLUZONE/FLULAVAL/FL UARIX) Unknown Completed [facility] Hep B, Adol or Pedi Dosage Unknown Completed [facility] Haemophilus influenzae type b vaccine, conjugate unspecified formulation Unknown Completed [facility] HPV Unknown Completed [facility] Meningococcal Polysaccharide (groups A, C, Y and W-135) conjugate vaccine (MCV4P) Unknown Completed [facility] MMR Unknown Completed [facility] IPV Unknown Completed [facility] Varicella (varivax)(chicken pox) Unknown Completed [facility] Influenza Virus Vaccine Quad .5 mL IM 6+ MO (FLUZONE/FLULAVAL/FL UARIX) Unknown Completed [facility] Meningococcal Polysaccharide (groups A, C, Y and W-135) conjugate vaccine (MCV4P) Unknown Completed [facility] TDAP Unknown Completed [facility] DTaP, Unspecified Formulation Unknown Completed [facility] Influenza Virus Vaccine Quad .5 mL IM 6+ MO (FLUZONE/FLULAVAL/FL UARIX) Unknown Completed [facility] Hep B, Adol or Pedi Dosage Unknown Completed [facility] Haemophilus influenzae type b vaccine, conjugate unspecified formulation Unknown Completed [facility] HPV Unknown Completed [facility] Meningococcal Polysaccharide (groups A, C, Y and W-135) conjugate vaccine (MCV4P) Unknown Completed [facility] MMR Unknown Completed [facility] IPV Unknown Completed [facility] Varicella (varivax)(chicken pox) Unknown Completed [facility] TDAP Unknown Completed [facility] DTaP, Unspecified Formulation Unknown Completed [facility] Influenza Virus Vaccine Quad .5 mL IM 6+ MO (FLUZONE/FLULAVAL/FL UARIX) Unknown Completed [facility] Hep B, Adol or Pedi Dosage Unknown Completed [facility] Haemophilus influenzae type b vaccine, conjugate unspecified formulation Unknown Completed [facility] HPV Unknown Completed [facility] Meningococcal Polysaccharide (groups A, C, Y and W-135) conjugate vaccine (MCV4P) Unknown Completed [facility] MMR Unknown Completed [facility] IPV Unknown Completed [facility] Varicella (varivax)(chicken pox) Unknown Completed [facility] Influenza Virus Vaccine Quad .5 mL IM 6+ MO (FLUZONE/FLULAVAL/FL UARIX) Unknown Completed [facility] Meningococcal Polysaccharide (groups A, C, Y and W-135) conjugate vaccine (MCV4P) Unknown Completed [facility] TDAP Unknown Completed [facility] DTaP, Unspecified Formulation Unknown Completed [facility] Hep B, Adol or Pedi Dosage Unknown Completed [facility] Haemophilus influenzae type b vaccine, conjugate unspecified formulation Unknown Completed [facility] HPV Unknown Completed [facility] MMR Unknown Completed [facility] IPV Unknown Completed [facility] Varicella (varivax)(chicken pox) Unknown Completed [facility] TDAP Unknown Completed [facility] DTaP, Unspecified Formulation Unknown Completed [facility] Hep B, Adol or Pedi Dosage Unknown Completed [facility] Haemophilus influenzae type b vaccine, conjugate unspecified formulation Unknown Completed [facility] HPV Unknown Completed [facility] MMR Unknown Completed [facility] IPV Unknown Completed [facility] Varicella (varivax)(chicken pox) Unknown Completed [facility] TDAP Unknown Completed [facility] DTaP, Unspecified Formulation Unknown Completed [facility] Influenza Virus Vaccine Quad .5 mL IM 6+ MO (FLUZONE/FLULAVAL/FL UARIX) Unknown Completed [facility] Hep B, Adol or Pedi Dosage Unknown Completed [facility] Haemophilus influenzae type b vaccine, conjugate unspecified formulation Unknown Completed [facility] HPV Unknown Completed [facility] Meningococcal Polysaccharide (groups A, C, Y and W-135) conjugate vaccine (MCV4P) Unknown Completed [facility] MMR Unknown Completed [facility] IPV Unknown Completed [facility] Varicella (varivax)(chicken pox) Unknown Completed [facility] TDAP Unknown Completed [facility] DTaP, Unspecified Formulation Unknown Completed [facility] Influenza Virus Vaccine Quad .5 mL IM 6+ MO (FLUZONE/FLULAVAL/FL UARIX) Unknown Completed [facility] Hep B, Adol or Pedi Dosage Unknown Completed [facility] Haemophilus influenzae type b vaccine, conjugate unspecified formulation Unknown Completed [facility] HPV Unknown Completed [facility] Meningococcal Polysaccharide (groups A, C, Y and W-135) conjugate vaccine (MCV4P) Unknown Completed [facility] MMR Unknown Completed [facility] IPV Unknown Completed [facility] Varicella (varivax)(chicken pox) Unknown Completed [facility] TDAP Unknown Completed [facility] DTaP, Unspecified Formulation Unknown Completed [facility] Influenza Virus Vaccine Quad .5 mL IM 6+ MO (FLUZONE/FLULAVAL/FL UARIX) Unknown Completed [facility] Hep B, Adol or Pedi Dosage Unknown Completed [facility] Haemophilus influenzae type b vaccine, conjugate unspecified formulation Unknown Completed [facility] HPV Unknown Completed [facility] Meningococcal Polysaccharide (groups A, C, Y and W-135) conjugate vaccine (MCV4P) Unknown Completed [facility] MMR Unknown Completed [facility] IPV Unknown Completed [facility] Varicella (varivax)(chicken pox) Unknown Completed [facility] TDAP Unknown Completed [facility] DTaP, Unspecified Formulation Unknown Completed [facility] Influenza Virus Vaccine Quad .5 mL IM 6+ MO (FLUZONE/FLULAVAL/FL UARIX) Unknown Completed [facility] Hep B, Adol or Pedi Dosage Unknown Completed [facility] Haemophilus influenzae type b vaccine, conjugate unspecified formulation Unknown Completed [facility] HPV Unknown Completed [facility] Meningococcal Polysaccharide (groups A, C, Y and W-135) conjugate vaccine (MCV4P) Unknown Completed [facility] MMR Unknown Completed [facility] IPV Unknown Completed [facility] Varicella (varivax)(chicken pox) Unknown Completed [facility] TDAP Unknown Completed [facility] DTaP, Unspecified Formulation Unknown Completed [facility] Influenza Virus Vaccine Quad .5 mL IM 6+ MO (FLUZONE/FLULAVAL/FL UARIX) Unknown Completed [facility] Hep B, Adol or Pedi Dosage Unknown Completed [facility] Haemophilus influenzae type b vaccine, conjugate unspecified formulation Unknown Completed [facility] HPV Unknown Completed [facility] Meningococcal Polysaccharide (groups A, C, Y and W-135) conjugate vaccine (MCV4P) Unknown Completed [facility] MMR Unknown Completed [facility] IPV Unknown Completed [facility] Varicella (varivax)(chicken pox) Unknown Completed [facility] TDAP Unknown Completed [facility] DTaP, Unspecified Formulation Unknown Completed [facility] Influenza Virus Vaccine Quad .5 mL IM 6+ MO (FLUZONE/FLULAVAL/FL UARIX) Unknown Completed [facility] Hep B, Adol or Pedi Dosage Unknown Completed [facility] Haemophilus influenzae type b vaccine, conjugate unspecified formulation Unknown Completed [facility] HPV Unknown Completed [facility] Meningococcal Polysaccharide (groups A, C, Y and W-135) conjugate vaccine (MCV4P) Unknown Completed [facility] MMR Unknown Completed [facility] IPV Unknown Completed [facility] Varicella (varivax)(chicken pox) Unknown Completed [facility] TDAP Unknown Completed [facility] DTaP, Unspecified Formulation Unknown Completed [facility] Influenza Virus Vaccine Quad .5 mL IM 6+ MO (FLUZONE/FLULAVAL/FL UARIX) Unknown Completed [facility] Hep B, Adol or Pedi Dosage Unknown Completed [facility] Haemophilus influenzae type b vaccine, conjugate unspecified formulation Unknown Completed [facility] HPV Unknown Completed [facility] Meningococcal Polysaccharide (groups A, C, Y and W-135) conjugate vaccine (MCV4P) Unknown Completed [facility] MMR Unknown Completed [facility] IPV Unknown Completed [facility] Varicella (varivax)(chicken pox) Unknown Completed [facility] TDAP Unknown Completed [facility] DTaP, Unspecified Formulation Unknown Completed [facility] Influenza Virus Vaccine Quad .5 mL IM 6+ MO (FLUZONE/FLULAVAL/FL UARIX) Unknown Completed [facility] Hep B, Adol or Pedi Dosage Unknown Completed [facility] Haemophilus influenzae type b vaccine, conjugate unspecified formulation Unknown Completed [facility] HPV Unknown Completed [facility] Meningococcal Polysaccharide (groups A, C, Y and W-135) conjugate vaccine (MCV4P) Unknown Completed [facility] MMR Unknown Completed [facility] IPV Unknown Completed [facility] Varicella (varivax)(chicken pox) Unknown Completed [facility] TDAP Unknown Completed [facility] DTaP, Unspecified Formulation Unknown Completed [facility] Influenza Virus Vaccine Quad .5 mL IM 6+ MO (FLUZONE/FLULAVAL/FL UARIX) Unknown Completed [facility] Hep B, Adol or Pedi Dosage Unknown Completed [facility] Haemophilus influenzae type b vaccine, conjugate unspecified formulation Unknown Completed [facility] HPV Unknown Completed [facility] Meningococcal Polysaccharide (groups A, C, Y and W-135) conjugate vaccine (MCV4P) Unknown Completed [facility] MMR Unknown Completed [facility] IPV Unknown Completed [facility] Varicella (varivax)(chicken pox) Unknown Completed [facility] TDAP Unknown Completed [facility] DTaP, Unspecified Formulation Unknown Completed [facility] Influenza Virus Vaccine Quad .5 mL IM 6+ MO (FLUZONE/FLULAVAL/FL UARIX) Unknown Completed [facility] Hep B, Adol or Pedi Dosage Unknown Completed [facility] Haemophilus influenzae type b vaccine, conjugate unspecified formulation Unknown Completed [facility] HPV Unknown Completed [facility] Meningococcal Polysaccharide (groups A, C, Y and W-135) conjugate vaccine (MCV4P) Unknown Completed [facility] MMR Unknown Completed [facility] IPV Unknown Completed [facility] Varicella (varivax)(chicken pox) Unknown Completed [facility] TDAP Unknown Completed [facility] DTaP, Unspecified Formulation Unknown Completed [facility] Influenza Virus Vaccine Quad .5 mL IM 6+ MO (FLUZONE/FLULAVAL/FL UARIX) Unknown Completed [facility] Hep B, Adol or Pedi Dosage Unknown Completed [facility] Haemophilus influenzae type b vaccine, conjugate unspecified formulation Unknown Completed [facility] HPV Unknown Completed [facility] Meningococcal Polysaccharide (groups A, C, Y and W-135) conjugate vaccine (MCV4P) Unknown Completed [facility] MMR Unknown Completed [facility] IPV Unknown Completed [facility] Varicella (varivax)(chicken pox) Unknown Completed [facility] TDAP Unknown Completed [facility] DTaP, Unspecified Formulation Unknown Completed [facility] Influenza Virus Vaccine Quad .5 mL IM 6+ MO (FLUZONE/FLULAVAL/FL UARIX) Unknown Completed [facility] Hep B, Adol or Pedi Dosage Unknown Completed [facility] Haemophilus influenzae type b vaccine, conjugate unspecified formulation Unknown Completed [facility] HPV Unknown Completed [facility] Meningococcal Polysaccharide (groups A, C, Y and W-135) conjugate vaccine (MCV4P) Unknown Completed [facility] MMR Unknown Completed [facility] IPV Unknown Completed [facility] Varicella (varivax)(chicken pox) Unknown Completed [facility] TDAP Unknown Completed [facility] DTaP, Unspecified Formulation Unknown Completed [facility] Influenza Virus Vaccine Quad .5 mL IM 6+ MO (FLUZONE/FLULAVAL/FL UARIX) Unknown Completed [facility] Hep B, Adol or Pedi Dosage Unknown Completed [facility] Haemophilus influenzae type b vaccine, conjugate unspecified formulation Unknown Completed [facility] HPV Unknown Completed [facility] Meningococcal Polysaccharide (groups A, C, Y and W-135) conjugate vaccine (MCV4P) Unknown Completed [facility] MMR Unknown Completed [facility] IPV Unknown Completed [facility] Varicella (varivax)(chicken pox) Unknown Completed [facility] TDAP Unknown Completed [facility] DTaP, Unspecified Formulation Unknown Completed [facility] Influenza Virus Vaccine Quad .5 mL IM 6+ MO (FLUZONE/FLULAVAL/FL UARIX) Unknown Completed [facility] Hep B, Adol or Pedi Dosage Unknown Completed [facility] Haemophilus influenzae type b vaccine, conjugate unspecified formulation Unknown Completed [facility] HPV Unknown Completed [facility] Meningococcal Polysaccharide (groups A, C, Y and W-135) conjugate vaccine (MCV4P) Unknown Completed [facility] MMR Unknown Completed [facility] IPV Unknown Completed [facility] Varicella (varivax)(chicken pox) Unknown Completed [facility] HPV9 Unknown Completed [facility] Influenza Virus Vaccine Quad .5 mL IM 6+ MO (FLUZONE/FLULAVAL/FL UARIX) Unknown Completed [facility] Meningococcal Polysaccharide (groups A, C, Y and W-135) conjugate vaccine (MCV4P) Unknown Completed [facility] HPV9 Unknown Completed [facility] TDAP Unknown Completed [facility] DTaP, Unspecified Formulation Unknown Completed [facility] Hep B, Adol or Pedi Dosage Unknown Completed [facility] Haemophilus influenzae type b vaccine, conjugate unspecified formulation Unknown Completed [facility] HPV Unknown Completed [facility] MMR Unknown Completed [facility] IPV Unknown Completed [facility] Varicella (varivax)(chicken pox) Unknown Completed [facility] TDAP Unknown Completed [facility] DTaP, Unspecified Formulation Unknown Completed [facility] Influenza Virus Vaccine Quad .5 mL IM 6+ MO (FLUZONE/FLULAVAL/FL UARIX) Unknown Completed [facility] Hep B, Adol or Pedi Dosage Unknown Completed [facility] Haemophilus influenzae type b vaccine, conjugate unspecified formulation Unknown Completed [facility] HPV Unknown Completed [facility] Meningococcal Polysaccharide (groups A, C, Y and W-135) conjugate vaccine (MCV4P) Unknown Completed [facility] MMR Unknown Completed [facility] IPV Unknown Completed [facility] Varicella (varivax)(chicken pox) Unknown Completed [facility] HPV9 Unknown Completed [facility] TDAP Unknown Completed [facility] DTaP, Unspecified Formulation Unknown Completed [facility] Influenza Virus Vaccine Quad .5 mL IM 6+ MO (FLUZONE/FLULAVAL/FL UARIX) Unknown Completed [facility] Hep B, Adol or Pedi Dosage Unknown Completed [facility] Haemophilus influenzae type b vaccine, conjugate unspecified formulation Unknown Completed [facility] HPV Unknown Completed [facility] Meningococcal Polysaccharide (groups A, C, Y and W-135) conjugate vaccine (MCV4P) Unknown Completed [facility] MMR Unknown Completed [facility] IPV Unknown Completed [facility] Varicella (varivax)(chicken pox) Unknown Completed [facility] HPV9 Unknown Completed [facility] TDAP Unknown Completed [facility] DTaP, Unspecified Formulation Unknown Completed [facility] Influenza Virus Vaccine Quad .5 mL IM 6+ MO (FLUZONE/FLULAVAL/FL UARIX) Unknown Completed [facility] Hep B, Adol or Pedi Dosage Unknown Completed [facility] Haemophilus influenzae type b vaccine, conjugate unspecified formulation Unknown Completed [facility] HPV Unknown Completed [facility] Meningococcal Polysaccharide (groups A, C, Y and W-135) conjugate vaccine (MCV4P) Unknown Completed [facility] MMR Unknown Completed [facility] IPV Unknown Completed [facility] Varicella (varivax)(chicken pox) Unknown Completed [facility] HPV9 Unknown Completed [facility] Influenza Virus Vaccine Quad .5 mL IM 6+ MO (FLUZONE/FLULAVAL/FL UARIX) Unknown Completed [facility] Meningococcal Polysaccharide (groups A, C, Y and W-135) conjugate vaccine (MCV4P) Unknown Completed [facility] HPV9 Unknown Completed [facility] TDAP Unknown Completed [facility] DTaP, Unspecified Formulation Unknown Completed [facility] Influenza Virus Vaccine Quad .5 mL IM 6+ MO (FLUZONE/FLULAVAL/FL UARIX) Unknown Completed [facility] Hep B, Adol or Pedi Dosage Unknown Completed [facility] Haemophilus influenzae type b vaccine, conjugate unspecified formulation Unknown Completed [facility] HPV Unknown Completed [facility] Meningococcal Polysaccharide (groups A, C, Y and W-135) conjugate vaccine (MCV4P) Unknown Completed [facility] MMR Unknown Completed [facility] IPV Unknown Completed [facility] Varicella (varivax)(chicken pox) Unknown Completed [facility] HPV9 Unknown Completed [facility] TDAP Unknown Completed [facility] DTaP, Unspecified Formulation Unknown Completed [facility] Influenza Virus Vaccine Quad .5 mL IM 6+ MO (FLUZONE/FLULAVAL/FL UARIX) Unknown Completed [facility] Hep B, Adol or Pedi Dosage Unknown Completed [facility] Haemophilus influenzae type b vaccine, conjugate unspecified formulation Unknown Completed [facility] HPV Unknown Completed [facility] Meningococcal Polysaccharide (groups A, C, Y and W-135) conjugate vaccine (MCV4P) Unknown Completed [facility] MMR Unknown Completed [facility] IPV Unknown Completed [facility] Varicella (varivax)(chicken pox) Unknown Completed [facility] HPV9 Unknown Completed [facility] TDAP Unknown Completed [facility] DTaP, Unspecified Formulation Unknown Completed [facility] Hep B, Adol or Pedi Dosage Unknown Completed [facility] Haemophilus influenzae type b vaccine, conjugate unspecified formulation Unknown Completed [facility] HPV Unknown Completed [facility] MMR Unknown Completed [facility] IPV Unknown Completed [facility] Varicella (varivax)(chicken pox) Unknown Completed [facility] TDAP Unknown Completed [facility] DTaP, Unspecified Formulation Unknown Completed [facility] Influenza Virus Vaccine Quad .5 mL IM 6+ MO (FLUZONE/FLULAVAL/FL UARIX) Unknown Completed [facility] Hep B, Adol or Pedi Dosage Unknown Completed [facility] Haemophilus influenzae type b vaccine, conjugate unspecified formulation Unknown Completed [facility] HPV Unknown Completed [facility] Meningococcal Polysaccharide (groups A, C, Y and W-135) conjugate vaccine (MCV4P) Unknown Completed [facility] MMR Unknown Completed [facility] IPV Unknown Completed [facility] Varicella (varivax)(chicken pox) Unknown Completed [facility] HPV9 Unknown Completed [facility] TDAP Unknown Completed [facility] DTaP, Unspecified Formulation Unknown Completed [facility] Influenza Virus Vaccine Quad .5 mL IM 6+ MO (FLUZONE/FLULAVAL/FL UARIX) Unknown Completed [facility] Hep B, Adol or Pedi Dosage Unknown Completed [facility] Haemophilus influenzae type b vaccine, conjugate unspecified formulation Unknown Completed [facility] HPV Unknown Completed [facility] Meningococcal Polysaccharide (groups A, C, Y and W-135) conjugate vaccine (MCV4P) Unknown Completed [facility] MMR Unknown Completed [facility] IPV Unknown Completed [facility] Varicella (varivax)(chicken pox) Unknown Completed [facility] HPV9 Unknown Completed [facility] TDAP Unknown Completed [facility] DTaP, Unspecified Formulation Unknown Completed [facility] Influenza Virus Vaccine Quad .5 mL IM 6+ MO (FLUZONE/FLULAVAL/FL UARIX) Unknown Completed [facility] Hep B, Adol or Pedi Dosage Unknown Completed [facility] Haemophilus influenzae type b vaccine, conjugate unspecified formulation Unknown Completed [facility] HPV Unknown Completed [facility] Meningococcal Polysaccharide (groups A, C, Y and W-135) conjugate vaccine (MCV4P) Unknown Completed [facility] MMR Unknown Completed [facility] IPV Unknown Completed [facility] Varicella (varivax)(chicken pox) Unknown Completed [facility] HPV9 Unknown Completed [facility] Vital Signs Vital Name Observation Time Observation Value Comments S ource Systolic blood pressure 2025-03-06 14:59:00 117 mm[Hg] [facility] Diastolic blood pressure 2025-03-06 14:59:00 82 mm[Hg] [facility] Heart rate 2025-03-06 14:59:00 94 /min [facility] Body temperature 2025-03-06 14:59:00 36.39 Maria Dolores [facility] Respiratory rate 2025-03-06 14:59:00 18 /min [facility] Body height 2025-03-06 14:59:00 167.6 cm [facility] Body weight 2025-03-06 14:59:00 105.433 kg [facility] BMI 2025-03-06 14:59:00 37.52 kg/m2 [facility] Systolic blood pressure 2024-07-05 00:16:00 115 mm[Hg] [facility] Diastolic blood pressure 2024-07-05 00:16:00 72 mm[Hg] [facility] Heart rate 2024-07-05 00:16:00 84 /min [facility] Body temperature 2024-07-05 00:16:00 37.06 Maria Dolores [facility] Respiratory rate 2024-07-05 00:16:00 18 /min [facility] Body weight 2024-07-05 00:16:00 105.291 kg [facility] BMI 2024-07-05 00:16:00 37.47 kg/m2 [facility] Oxygen saturation in Arterial blood by Pulse oximetry 2024-07-05 00:16:00 100 /min [facility] Systolic blood pressure 2024-01-23 00:55:00 124 mm[Hg] [facility] Diastolic blood pressure 2024-01-23 00:55:00 76 mm[Hg] [facility] Heart rate 2024-01-23 00:55:00 82 /min [facility] Body temperature 2024-01-23 00:55:00 36.11 Maria Dolores [facility] Respiratory rate 2024-01-23 00:55:00 17 /min [facility] Body weight 2024-01-23 00:55:00 105.802 kg [facility] BMI 2024-01-23 00:55:00 37.65 kg/m2 [facility] Oxygen saturation in Arterial blood by Pulse oximetry 2024-01-23 00:55:00 100 /min [facility] Systolic blood pressure 2024-01-05 15:32:00 110 mm[Hg] [facility] Diastolic blood pressure 2024-01-05 15:32:00 76 mm[Hg] [facility] Heart rate 2024-01-05 15:32:00 69 /min [facility] Body temperature 2024-01-05 15:32:00 37 Maria Dolores [facility] Respiratory rate 2024-01-05 15:32:00 18 /min [facility] Body height 2024-01-05 15:32:00 167.6 cm [facility] Body weight 2024-01-05 15:32:00 105.915 kg [facility] BMI 2024-01-05 15:32:00 37.69 kg/m2 [facility] Oxygen saturation in Arterial blood by Pulse oximetry 2024-01-05 15:32:00 99 /min [facility] Systolic blood pressure 2023-11-02 16:06:00 112 mm[Hg] [facility] Diastolic blood pressure 2023-11-02 16:06:00 66 mm[Hg] [facility] Heart rate 2023-11-02 16:06:00 65 [facility] Body temperature 2023-11-02 16:06:00 36.56 Maria Dolores [facility] Respiratory rate 2023-11-02 16:06:00 17 /min [facility] Body height 2023-11-02 16:06:00 170.2 cm [facility] Body weight 2023-11-02 16:06:00 99.428 kg [facility] BMI 2023-11-02 16:06:00 34.33 kg/m2 [facility] Systolic blood pressure 2023-09-24 19:08:00 148 mm[Hg] [facility] Diastolic blood pressure 2023-09-24 19:08:00 85 mm[Hg] [facility] Heart rate 2023-09-24 19:08:00 56 /min [facility] Body temperature 2023-09-24 19:07:00 36.5 Maria Dolores [facility] Respiratory rate 2023-09-24 19:07:00 20 /min [facility] Body height 2023-09-24 19:07:00 170.2 cm [facility] Body weight 2023-09-24 19:07:00 102.876 kg [facility] BMI 2023-09-24 19:07:00 35.52 kg/m2 [facility] Systolic blood pressure 2023-09-19 13:42:00 112 mm[Hg] [facility] Diastolic blood pressure 2023-09-19 13:42:00 78 mm[Hg] [facility] Heart rate 2023-09-19 13:42:00 77 /min [facility] Body temperature 2023-09-19 13:42:00 36.39 Maria Dolores [facility] Respiratory rate 2023-09-19 13:42:00 18 /min [facility] Oxygen saturation in Arterial blood by Pulse oximetry 2023-09-19 13:42:00 98 /min [facility] Body height 2023-09-16 01:00:00 167.6 cm [facility] Body weight 2023-09-16 01:00:00 109.362 kg [facility] BMI 2023-09-16 01:00:00 38.93 kg/m2 [facility] Systolic blood pressure 2023-09-16 13:45:00 102 mm[Hg] [facility] Diastolic blood pressure 2023-09-16 13:45:00 72 mm[Hg] [facility] Heart rate 2023-09-16 13:45:00 69 /min [facility] Respiratory rate 2023-09-16 13:45:00 19 /min [facility] Oxygen saturation in Arterial blood by Pulse oximetry 2023-09-16 13:45:00 99 /min [facility] Body temperature 2023-09-16 13:00:00 36.61 Maria Dolores [facility] Body height 2023-09-16 01:00:00 167.6 cm [facility] Body weight 2023-09-16 01:00:00 109.362 kg [facility] BMI 2023-09-16 01:00:00 38.93 kg/m2 [facility] Systolic blood pressure 2023-09-15 15:18:00 135 mm[Hg] [facility] Diastolic blood pressure 2023-09-15 15:18:00 86 mm[Hg] [facility] Heart rate 2023-09-15 15:18:00 95 /min [facility] Body temperature 2023-09-15 15:18:00 36.5 Maria Dolores [facility] Respiratory rate 2023-09-15 15:18:00 19 /min [facility] Body height 2023-09-15 15:18:00 167.6 cm [facility] Body weight 2023-09-15 15:18:00 107.956 kg [facility] BMI 2023-09-15 15:18:00 38.41 kg/m2 [facility] Systolic blood pressure 2023-09-15 16:48:00 106 mm[Hg] [facility] Diastolic blood pressure 2023-09-15 16:48:00 86 mm[Hg] [facility] Heart rate 2023-09-15 16:48:00 79 /min [facility] Body temperature 2023-09-15 16:48:00 36.56 Maria Dolores [facility] Heart rate 2023-09-11 01:50:00 79 /min [facility] Oxygen saturation in Arterial blood by Pulse oximetry 2023-09-11 01:50:00 100 /min [facility] Systolic blood pressure 2023-09-11 01:30:00 106 mm[Hg] [facility] Diastolic blood pressure 2023-09-11 01:30:00 86 mm[Hg] [facility] Respiratory rate 2023-09-11 01:00:00 18 /min [facility] Body height 2023-09-10 21:30:00 167.6 cm [facility] Body weight 2023-09-10 21:30:00 107.956 kg [facility] BMI 2023-09-10 21:30:00 38.41 kg/m2 [facility] Systolic blood pressure 2023-09-10 17:37:00 118 mm[Hg] [facility] Diastolic blood pressure 2023-09-10 17:37:00 78 mm[Hg] [facility] Heart rate 2023-09-10 17:37:00 94 /min [facility] Body temperature 2023-09-10 17:37:00 36.39 Maria Dolores [facility] Respiratory rate 2023-09-10 17:37:00 18 /min [facility] Body height 2023-09-10 17:37:00 167.6 cm [facility] Body weight 2023-09-10 17:37:00 107.956 kg [facility] BMI 2023-09-10 17:37:00 38.41 kg/m2 [facility] Systolic blood pressure 2023-09-09 21:55:00 124 mm[Hg] [facility] Diastolic blood pressure 2023-09-09 21:55:00 75 mm[Hg] [facility] Heart rate 2023-09-09 21:55:00 79 /min [facility] Body temperature 2023-09-09 21:55:00 36.39 Maria Dolores [facility] Respiratory rate 2023-09-09 21:55:00 18 /min [facility] Body height 2023-09-09 21:55:00 167.6 cm [facility] Body weight 2023-09-09 21:55:00 106.958 kg [facility] BMI 2023-09-09 21:55:00 38.06 kg/m2 [facility] Systolic blood pressure 2023-09-03 20:25:00 129 mm[Hg] [facility] Diastolic blood pressure 2023-09-03 20:25:00 79 mm[Hg] [facility] Heart rate 2023-09-03 20:25:00 112 /min [facility] Body temperature 2023-09-03 20:25:00 36.44 Maria Dolores [facility] Respiratory rate 2023-09-03 20:25:00 18 /min [facility] Body height 2023-09-03 20:25:00 167.6 cm [facility] Body weight 2023-09-03 20:25:00 107.457 kg [facility] BMI 2023-09-03 20:25:00 38.24 kg/m2 [facility] Systolic blood pressure 2023-09-01 20:02:00 128 mm[Hg] [facility] Diastolic blood pressure 2023-09-01 20:02:00 76 mm[Hg] [facility] Heart rate 2023-09-01 20:02:00 99 /min [facility] Body temperature 2023-09-01 20:02:00 35.72 Maria Dolores [facility] Respiratory rate 2023-09-01 20:02:00 18 /min [facility] Body height 2023-09-01 20:02:00 167.6 cm [facility] Body weight 2023-09-01 20:02:00 108.682 kg [facility] BMI 2023-09-01 20:02:00 38.67 kg/m2 [facility] Systolic blood pressure 2023-08-26 21:45:00 114 mm[Hg] [facility] Diastolic blood pressure 2023-08-26 21:45:00 71 mm[Hg] [facility] Heart rate 2023-08-26 21:45:00 98 /min [facility] Body temperature 2023-08-26 21:45:00 35.94 Maria Dolores [facility] Respiratory rate 2023-08-26 21:45:00 18 /min [facility] Body height 2023-08-26 21:45:00 167.6 cm [facility] Body weight 2023-08-26 21:45:00 106.505 kg [facility] BMI 2023-08-26 21:45:00 37.90 kg/m2 [facility] Systolic blood pressure 2023-08-11 16:22:00 118 mm[Hg] [facility] Diastolic blood pressure 2023-08-11 16:22:00 63 mm[Hg] [facility] Heart rate 2023-08-11 16:22:00 98 /min [facility] Body temperature 2023-08-11 16:22:00 35.61 Maria Dolores [facility] Respiratory rate 2023-08-11 16:22:00 18 /min [facility] Body height 2023-08-11 16:22:00 167.6 cm [facility] Body weight 2023-08-11 16:22:00 104.781 kg [facility] BMI 2023-08-11 16:22:00 37.28 kg/m2 [facility] Systolic blood pressure 2023-08-03 02:00:00 113 mm[Hg] [facility] Diastolic blood pressure 2023-08-03 02:00:00 54 mm[Hg] [facility] Heart rate 2023-08-03 02:00:00 86 /min [facility] Oxygen saturation in Arterial blood by Pulse oximetry 2023-08-03 02:00:00 100 /min [facility] Body temperature 2023-08-03 01:00:00 36.67 Maria Dolores [facility] Respiratory rate 2023-08-03 01:00:00 17 /min [facility] Body height 2023-08-02 23:39:00 167.6 cm [facility] Body weight 2023-08-02 23:39:00 104.781 kg [facility] BMI 2023-08-02 23:39:00 37.28 kg/m2 [facility] Systolic blood pressure 2023-07-29 21:49:00 130 mm[Hg] [facility] Diastolic blood pressure 2023-07-29 21:49:00 71 mm[Hg] [facility] Heart rate 2023-07-29 21:49:00 93 /min [facility] Body temperature 2023-07-29 21:49:00 36.06 Maria Dolores [facility] Respiratory rate 2023-07-29 21:49:00 18 /min [facility] Body height 2023-07-29 21:49:00 170.2 cm [facility] Body weight 2023-07-29 21:49:00 104.838 kg [facility] BMI 2023-07-29 21:49:00 36.20 kg/m2 [facility] Systolic blood pressure 2023-07-19 04:30:00 105 mm[Hg] [facility] Diastolic blood pressure 2023-07-19 04:30:00 56 mm[Hg] [facility] Heart rate 2023-07-19 04:30:00 92 /min [facility] Oxygen saturation in Arterial blood by Pulse oximetry 2023-07-19 04:30:00 100 /min [facility] Body temperature 2023-07-19 02:54:00 37.17 Maria Dolores [facility] Respiratory rate 2023-07-19 02:54:00 18 /min [facility] Body weight 2023-07-19 02:54:00 102.967 kg [facility] BMI 2023-07-19 02:54:00 35.55 kg/m2 [facility] Body height 2023-07-19 02:25:00 170.2 cm [facility] Systolic blood pressure 2023-07-12 19:39:00 120 mm[Hg] [facility] Diastolic blood pressure 2023-07-12 19:39:00 69 mm[Hg] [facility] Heart rate 2023-07-12 19:39:00 100 /min [facility] Body temperature 2023-07-12 19:39:00 36.11 Maria Dolores [facility] Respiratory rate 2023-07-12 19:39:00 18 /min [facility] Body height 2023-07-12 19:39:00 170.2 cm [facility] Body weight 2023-07-12 19:39:00 103.902 kg [facility] BMI 2023-07-12 19:39:00 35.88 kg/m2 [facility] Systolic blood pressure 2023-06-30 20:29:00 108 mm[Hg] [facility] Diastolic blood pressure 2023-06-30 20:29:00 65 mm[Hg] [facility] Heart rate 2023-06-30 20:29:00 88 /min [facility] Body temperature 2023-06-30 20:29:00 36.28 Maria Dolores [facility] Respiratory rate 2023-06-30 20:29:00 18 /min [facility] Body height 2023-06-30 20:29:00 170.2 cm [facility] Body weight 2023-06-30 20:29:00 103.505 kg [facility] BMI 2023-06-30 20:29:00 35.74 kg/m2 [facility] Systolic blood pressure 2023-06-02 19:46:00 99 mm[Hg] [facility] Diastolic blood pressure 2023-06-02 19:46:00 64 mm[Hg] [facility] Heart rate 2023-06-02 19:46:00 93 /min [facility] Body temperature 2023-06-02 19:46:00 35.94 Maria Dolores [facility] Respiratory rate 2023-06-02 19:46:00 20 /min [facility] Body height 2023-06-02 19:46:00 170.2 cm [facility] Body weight 2023-06-02 19:46:00 102.626 kg [facility] BMI 2023-06-02 19:46:00 35.44 kg/m2 [facility] Systolic blood pressure 2023-05-05 19:09:00 109 mm[Hg] [facility] Diastolic blood pressure 2023-05-05 19:09:00 58 mm[Hg] [facility] Heart rate 2023-05-05 19:09:00 89 /min [facility] Body temperature 2023-05-05 19:09:00 36.56 Maria Dolores [facility] Respiratory rate 2023-05-05 19:09:00 18 /min [facility] Body height 2023-05-05 19:09:00 [facility].2 [facility] 2023-05-05 19:09:00 100.33 kg [facility] BMI 2023-05-05 19:09:00 34.64 kg/m2 [facility] Systolic blood pressure 2023-04-08 19:36:00 110 mm[Hg] [place] [facility] Diastolic blood pressure 2023-04-08 19:36:00 58 mm[Hg] [facility] Heart rate 2023-04-08 19:36:00 92 /min [facility] Body temperature 2023-04-08 19:36:00 36.5 Maria Dolores [facility] Respiratory rate 2023-04-08 19:36:00 17 /min [facility] Body height 2023-04-08 19:36:00 170.2 cm [facility] Body weight 2023-04-08 19:36:00 98.612 kg [facility] BMI 2023-04-08 19:36:00 34.05 kg/m2 [facility] Systolic blood pressure 2023-03-11 19:19:00 122 mm[Hg] [facility] Diastolic blood pressure 2023-03-11 19:19:00 78 mm[Hg] [facility] Heart rate 2023-03-11 19:19:00 97 /min [facility] 2023-03-11 19:19:00 36.5 Maria Dolores [facility] Respiratory rate 2023-03-11 19:19:00 20 /min [facility] Body height 2023-03-11 19:19:00 170.2 cm [facility] 2023-03-11 19:19:00 98.998 kg [facility] BMI 2023-03-11 19:19:00 34.18 kg/m2 [facility] Systolic blood pressure 2023-03-02 01:19:00 109 mm[Hg] [facility] Diastolic blood pressure 2023-03-02 01:19:00 64 mm[Hg] [facility] Heart rate 2023-03-02 01:19:00 93 /min [facility] Respiratory rate 2023-03-02 01:19:00 18 /min [facility] Oxygen saturation in Arterial blood by Pulse oximetry 2023-03-02 01:19:00 99 /min [facility] Body temperature 2023-03-02 00:12:00 37.5 Maria Dolores [facility] Body height 2023-03-02 00:12:00 170.2 cm [facility] Body weight 2023-03-02 00:12:00 99.791 kg [facility] BMI 2023-03-02 00:12:00 34.46 kg/m2 [facility] Systolic blood pressure 2023-02-11 13:46:00 101 mm[Hg] [facility] Diastolic blood pressure 2023-02-11 13:46:00 70 mm[Hg] [facility] Heart rate 2023-02-11 13:46:00 83 /min [facility] Body temperature 2023-02-11 13:46:00 36.39 Maria Dolores [facility] Respiratory rate 2023-02-11 13:46:00 18 /min [facility] Body height 2023-02-11 13:46:00 167.6 cm [facility] Body weight 2023-02-11 13:46:00 101.294 kg [facility] BMI 2023-02-11 13:46:00 36.04 kg/m2 [facility] Systolic blood pressure 2022-12-30 21:39:00 114 mm[Hg] [facility] Diastolic blood pressure 2022-12-30 21:39:00 72 mm[Hg] [facility] Heart rate 2022-12-30 21:39:00 75 /min [facility] Body temperature 2022-12-30 21:39:00 36.67 Maria Dolores [facility] Respiratory rate 2022-12-30 21:39:00 16 /min [facility] Body height 2022-12-30 21:39:00 170.2 cm [facility] Body weight 2022-12-30 21:39:00 102.513 kg [facility] BMI 2022-12-30 21:39:00 35.40 kg[facility]m2 [facility] in Arterial blood by Pulse oximetry 2022-12-30 21:39:00 97 /min [facility] Systolic blood pressure 2022-05-18 14:11:00 105 mm[Hg] [facility] Diastolic blood pressure 2022-05-18 14:11:00 68 mm[Hg] [facility] Heart rate 2022-05-18 14:11:00 84 /min [facility] Body temperature 2022-05-18 14:11:00 37.44 Maria Dolores [facility] Respiratory rate 2022-05-18 14:11:00 16 /min [facility] Body height 2022-05-18 14:11:00 167.6 cm [facility] Body weight 2022-05-18 14:11:00 96.888 kg [facility] BMI 2022-05-18 14:11:00 34.48 kg/m2 [facility] Oxygen saturation in Arterial blood by Pulse oximetry 2022-05-18 14:11:00 98 /min [facility] Systolic blood pressure 2022-03-06 19:08:00 120 mm[Hg] [facility] Diastolic blood pressure 2022-03-06 19:08:00 80 mm[Hg] [facility] Heart rate 2022-03-06 19:08:00 96 /min [facility] Body temperature 2022-03-06 19:08:00 36.89 Maria Dolores [facility] Respiratory rate 2022-03-06 19:08:00 18 /min [facility] Body height 2022-03-06 19:08:00 167.6 cm [facility] 2022-03-06 19:08:00 97.523 kg [facility] 2022-03-06 19:08:00 34.70 kg/m2 [facility] Oxygen saturation in Arterial blood by Pulse oximetry 2022-03-06 19:08:00 98 /min [facility] Diastolic (mm Hg) 2018-07-22 19:45:00 [facility] Systolic (mm Hg) 2018-07-22 19:45:00 [facility] Height 2018-07-22 19:45:00 [facility] [place] Weight 2018-07-22 19:45:00 [facility] Temperature Oral (F) 2018-07-22 19:45:00 96.0 F [facility] Procedures Procedure Date / Time Performed Performing Clinician Source COMP. METABOLIC PANEL (26667) 2025-03-06 16:25:00 Zoe Goodman [facility] CBC WITH DIFF 2025-03-06 16:25:00 Zoe Goodman [facility] GLYCOSYLATED HEMOGLOBIN (A1C) 2025-03-06 16:25:00 Zoe Goodman [facility] RUBELLA SCREEN IGG 2025-03-06 16:25:00 Melba Goodman [facility] VZV ANTIBODY SCREEN 2025-03-06 16:25:00 Ila Goodman [facility] HEPATITIS B SURFACE ANTIGEN 2025-03-06 16:25:00 Zoe Goodman [facility] HCV ANTIBODY 2025-03-06 16:25:00 Zoe Goodman [facility] HB ABO GROUPING 2025-03-06 16:25:00 Zoe Goodman [facility] URINE CULTURE 2025-03-06 16:25:00 Zoe Goodman [facility] GC & CHLAMYDIA AMPLIFIED ASSAY 2025-03-06 16:25:00 Zoe Goodman [facility] HIV 1/2 AG-AB WITH REFLEX 2025-03-06 16:25:00 Zoe Valles [facility] SYPHILIS IGG/IGM 2025-03-06 16:25:00 Zoe Goodman [facility] POCT URINALYSIS W/O SPECIFIC GRAVITY 2025-03-06 14:58:00 Zoe Goodman [facility] POCT TEST 2025-03-06 14:56:00 Ila Goodman [facility] VITAMIN B12, LEVEL 2024-01-05 16:04:00 Catalina Stapleton [facility] INSULIN, LEVEL 2024-01-05 16:04:00 Catalina Stapleton [facility] COMP. METABOLIC PANEL (80008) 2024-01-05 16:04:00 Catalina Stapleton [facility] GLYCOSYLATED HEMOGLOBIN (A1C) 2024-01-05 16:04:00 Catalina Stapleton [facility] VITAMIN D, 25-OH 2024-01-05 16:04:00 Catalina Stapleton [facility] GARDASIL 9 (HPV 9V) VACCINE 2023-11-02 16:29:57 Reyes Richards [facility] DISABILITY/FMLA 2023-10-04 06:01:00 Doctor Unass igned, [place] [facility] CBC WITH DIFF 2023-09-17 11:08:00 Melba Iraheta [facility] CBC WITH DIFF 2023-09-17 11:08:00 Melba Iraheta Susy [facility] CBC WITH DIFF 2023-09-16 22:52:00 Pedro Collins [facility] CBC WITH DIFF 2023-09-16 22:52:00 Pedro Collins [facility] POCT GLUCOSE (AUTOMATED) 2023-09-16 21:09:00 Sulema Jurado [facility] POCT GLUCOSE (AUTOMATED) 2023-09-16 21:09:00 Sulema Jurado [facility] VENOUS CORD GAS 2023-09-16 12:19:00 Jenusaitis, Luke U [facility] VENOUS CORD GAS 2023-09-16 12:19:00 Jenusaitis, Luke U [facility] SECTION 2023-09-16 11:39:00 Bharti Diaz [facility] SECTION 2023-09-16 11:39:00 Joe Bharti [facility] CENTRAL NEURAXIAL BLOCK 2023-09-16 08:10:00 Dutch [place] [facility] CBC WITH DIFF 2023-09-15 23:24:00 Jenusaitis, [facility] HEPATITIS B SURFACE ANTIGEN 2023-09-15 23:24:00 Jenusaitis, [facility] HB ABO GROUPING 2023-09-15 23:24:00 Jenusaitis, [facility] RHO (D) IMMUNE GLOBULIN 2023-09-15 23:24:00 Katherine Iraheta ndpaul [facility] HIV 1/2 AG-AB WITH REFLEX 2023-09-15 23:24:00 Jenusait is, [facility] SYPHILIS IGG/IGM 2023-09-15 23:24:00 Jenusaitis, [facility] CBC WITH DIFF 2023-09-15 23:24:00 Jenusaitis, [facility] HEPATITIS B SURFACE ANTIGEN 2023-09-15 23:24:00 Jenusaitis, [facility] HB ABO GROUPING 2023-09-15 23:24:00 Jenusaitis, [facility] RHO (D) IMMUNE GLOBULIN 2023-09-15 23:24:00 Katherine Iraheta ndpaul [facility] HIV 1/2 AG-AB WITH REFLEX 2023-09-15 23:24:00 Jenusait is, [facility] SYPHILIS IGG/IGM 2023-09-15 23:24:00 Jenusaitis, [facility] SGOT (ASPARTATE AMINO TRANSFER) 2023-09-15 21:29:00 Sharad [facility] CREATININE 2023-09-15 21:29:00 Sharad [facility] ALANINE AMINO TRANSFERASE(SGPT 2023-09-15 21:29:00 Sharad [facility] LACTATE DEHYDROGENASE 2023-09-15 21:29:00 Alessia Orourke [facility] URIC ACID 2023-09-15 21:29:00 [facility] THYROID STIMULATING HORMONE 2023-09-15 21:29:00 Stone, [facility] CBC WITH DIFF 2023-09-15 21:29:00 Stone, [facility] URINALYSIS 2023-09-15 21:29:00 Stone, [facility] PROTEIN CREAT RATIO URINE RANDOM 2023-09-15 21:29:00 Stone, [facility] SGOT (ASPARTATE AMINO TRANSFER) 2023-09-15 21:29:00 Stone, [facility] CREATININE 2023-09-15 21:29:00 Stone, [facility] ALANINE AMINO TRANSFERASE(SGPT 2023-09-15 21:29:00 Stone, [facility] LACTATE DEHYDROGENASE 2023-09-15 21:29:00 StoneBlancawellington salazar [facility] URIC ACID 2023-09-15 21:29:00 Stone, [facility] THYROID STIMULATING HORMONE 2023-09-15 21:29:00 Stone, [facility] CBC WITH DIFF 2023-09-15 21:29:00 Stone, [facility] URINALYSIS 2023-09-15 21:29:00 Stone, [facility] PROTEIN CREAT RATIO URINE RANDOM 2023-09-15 21:29:00 Stone, [facility] POCT URINALYSIS 2023-09-15 16:47:00 Zoe Goodman [facility] SGOT (ASPARTATE AMINO TRANSFER) 2023-09-10 23:13:00 [facility] CREATININE 2023-09-10 23:13:00 Amrit [facility] ALANINE AMINO TRANSFERASE(SGPT 2023-09-10 23:13:00 [facility] LACTATE DEHYDROGENASE 2023-09-10 23:13:00 [facility] URIC ACID 2023-09-10 23:13:00 Adriel Marcus [facility] CBC WITH DIFF 2023-09-10 23:13:00 Adriel Marcus [facility] NON-STRESS TEST 2023-09-10 22:02:19 Anton Richards [facility] POCT URINALYSIS 2023-09-10 17:38:00 Zoe Goodman [facility] POCT URINALYSIS 2023-09-09 21:56:00 Zoe Goodman [facility] CBC WITH DIFF 2023-09-09 21:50:00 Reyes Richards [facility] POCT URINALYSIS 2023-09-03 20:28:00 Zoe Goodman [facility] SECOND AND THIRD TRIMESTER ULTRASOUND 2023-09-02 14:29:00 Zoe Goodman [facility] POCT URINALYSIS 2023-09-01 20:07:00 Zoe Goodman [facility] PATIENT CORRESPONDENCE (LETTERS, USPS DOCUMENTATION) 2023-08-27 06:01:00 Doctor Unassigned, [facility] DME/SUPPLY JUSTIFICATION 2023-08-18 06:01:00 Doc tor Unassigned, [place] [facility] POCT URINALYSIS 2023-08-11 16:25:00 Zoe Goodman [facility] TDAP VACCINE, >11 YRS, IM 2023-08-11 16:23:00 Reyes Richards [facility] POCT URINALYSIS 2023-07-29 21:56:00 Zoe Goodman [facility] NOTICE OF PRIVACY PRACTICES 2023-07-19 02:17:11 Doctor Unassigned, [facility] CONSENT/REFUSAL FOR DIAGNOSIS AND TREATMENT 2023-07-19 02:14:45 Doctor Unassigned, [place] [facility] L&D VISIT (NON-DELIVERED) 2023-07-18 06:01:00 Do ctor Unassigned, [place] [facility] POCT URINALYSIS 2023-07-12 22:40:00 Zoe Goodman [facility] POCT URINALYSIS 2023-07-12 22:39:00 Zoe Goodman [facility] GLUCOSE 1 HOUR POST PRANDIAL 2023-07-12 08:40:00 Zoe Goodman [facility] CBC WITH DIFF 2023-07-12 08:40:00 Zoe Goodman [facility] POCT URINALYSIS 2023-06-30 20:30:00 Zoe Goodman [facility] POCT URINALYSIS 2023-06-02 19:47:00 Zoe Goodman [facility] SECOND AND THIRD TRIMESTER ULTRASOUND 2023-05-19 20:34:00 Zoe Goodman [facility] ALPHA FETOPROTEIN-MATERNAL SER 2023-05-05 19:56:00 Zoe Goodman [facility] POCT URINALYSIS 2023-05-05 19:08:00 Zoe Goodman [facility] URINE CULTURE 2023-04-08 21:14:00 Zoe Goodman [facility] POCT URINALYSIS 2023-04-08 00:00:00 Zoe Goodman [facility] FIRST TRIMESTER ULTRASOUND 2023-03-29 16:51:00 Zoe Goodman [facility] POCT URINALYSIS 2023-03-11 19:22:00 Zoe Goodman [facility] FIRST TRIMESTER ULTRASOUND 2023-03-03 20:33:00 Zoe Goodman [facility] POCT TEST 2023-03-02 00:21:00 Fito Colon [facility] URINALYSIS 2023-03-02 00:20[facility]00 [facility] OF PRIVACY PRACTICES 2023-03-01 23:58:05 Doctor Unassigned, [place] [facility] CONSENT/REFUSAL FOR DIAGNOSIS AND TREATMENT 2023-03-01 23:57:09 Doctor Unassigned, [place] [facility] GLUCOSE 1 HOUR POST PRANDIAL 2023-02-11 14:45:00 Zoe Goodman [facility] COMP. METABOLIC PANEL (18280) 2023-02-11 14:45:00 Zoe Goodman [facility] CBC WITH DIFF 2023-02-11 14:45:00 Zoe Goodman [facility] RUBELLA SCREEN IGG 2023-02-11 14:45:00 Melba Goodman da Salazar [facility] VZV ANTIBODY SCREEN 2023-02-11 14:45:00 Ila Goodman [facility] HEPATITIS B SURFACE ANTIGEN 2023-02-11 14:45:00 Zoe Goodman [facility] HCV ANTIBODY 2023-02-11 14:45:00 [facility] 2023-02-11 14:45:00 Zoe Goodman [facility] GC & CHLAMYDIA AMPLIFIED ASSAY 2023-02-11 14:45:00 Zoe Goodman [facility] HIV 1/2 AG-AB WITH REFLEX 2023-02-11 14:45:00 Zoe Valles [facility] TRICHOMONAS AMPLIFIED ASSAY 2023-02-11 14:45:00 Zoe Goodman [facility] PAP SMEAR-LIQUID BASED-CP 2023-02-11 14:45:00 Zoe Valles [facility] SYPHILIS IGG/IGM 2023-02-11 14:45:00 Zoe Goodman [facility] REPORT OF 2023-02-11 05:01:00 Doctor Natividad mueller, [facility] POCT TEST 2023-02-11 00:00:00 Ila Goodman [facility] POCT URINALYSIS W/O SPECIFIC GRAVITY 2023-02-11 00:00:00 Zoe Goodman [facility] CONSENT/REFUSAL FOR DIAGNOSIS AND TREATMENT 2022-12-30 21:28:46 Doctor Unassigned, [place] [facility] POCT MOLECULAR STREP 2022-05-18 14:10:00 Rhonda Guerra [facility] POCT TEST 2022-03-06 19:13:00 Christine Pena [facility] Plan of Care Planned Activity Planned Date Details Comments Source Encounters Start Date/Time End Date/Time Encounter Type Admission Type Attending [facility] Care Facility Care Department Encounter ID Source 2023-09-10 19:59:00 Outpatient P [facility] [id number] [facility] 2021-06-09 05:16:59 Emergency [facility] [id number] [facility] 2021-06-08 22:32:58 Outpatient P [facility] [id number] [facility] 2021-06-08 22:28:29 Outpatient [facility] [id number] [facility] 2021-06-05 20:18:29 Emergency [facility] [id number] [facility] 2021-06-05 13:56:05 Outpatient P [facility] [id number] [facility] 2021-06-05 13:52:44 Outpatient P [facility] [id number] [facility] 2021-06-05 13:52:37 Emergency [facility] [id number] [facility] 2025-03-14 00:00:00 2025-03-14 16:35:14 Telephone Reyes Richards [facility] [employer] [facility] & CHILD [facility] 1..840.114 350.1.13.10 4.2.7.2.686 [id number] 107 [id number] [facility] 2025-03-12 00:00:00 2025-03-14 16:18:31 Patient Secure Msg Zoe Goodman [facility] [employer] [facility] & CHILD [facility] 1..840.114 350.1.13.10 4.2.7.2.686 [id number] [facility] 2025-03-06 00:00:00 2025-03-07 09:22:41 Telephone Catalina Stapleton [facility] [employer] [facility] MATERNAL & CHILD [facility] 1.840.114 350.1.13.10 4.2.7.2.686 [id number] 107 [id number] [facility] 2025-03-06 10:00:00 2025-03-06 11:29:20 Initial Visit Zoe Park [facility] [employer] [facility] MATERNAL CHILD [facility] 1.840.114 350.1.13.10 4.2.7.2.686 [id number] 107 [id number] [facility] 2025-03-06 09:30:00 2025-03-06 09:30:00 Outpatient ZOE PARK [facility] [id number] [facility] 2025-03-01 10:00:00 2025-03-01 10:00:00 Outpatient JILLIAN THOMAS [facility] [id number] [facility] 2025-02-28 08:16:32 2025-02-28 08:16:32 Outpatient [facility] [id number] Bib García 2024-11-28 16:37:06 2024-11-28 16:37:06 Outpatient [facility] [id number] Bib Sulema Ricky 2024-07-04 18:00:00 2024-07-04 18:20:00 Urgent Care Jama Denney Unknown, Attending [facility] ..840.114 350.1.13.10 4.2.7.2.686 [id number] [facility] 2024-07-04 18:00:00 2024-07-04 18:00:00 Outpatient JAMA CABRERA [facility] [id number] [facility] 2024-07-04 00:00:00 2024-07-04 17:08:54 Nurse Triage Blaire Tapia Jenny L [facility] 1..840.114 350.1.13.10 4.2.7.2.686 [id number] [facility] 2024 09:30:00 2024 09:30:00 Outpatient R CATALINA STAPLETON [facility] [id number] [facility] 2024-01-04 00:00:00 2024-02-05 18:18:25 Patient Secure Msg Reyes Richards [facility] [employer] [facility] & [facility]ILD [facility] 1..840.114 350.1.13.10 4.2.7.2.686 [id number] 107 [id number] [facility] 2024-01-22 20:00:00 2024-01-22 20:20:00 Urgent Care Monty Cabrera Unknown, Attending [facility] 1..840.114 350.1.13.10 4.2.7.2.686 [id number] [facility] 2024-01-22 20:00:00 2024-01-22 20:00:00 Outpatient R MONTY CABRERA [facility] [id number] [facility] 2024-01-06 00:00:00 2024-01-10 11:12:50 Patient Secure Msg Daya Catalina [facility] 1..840.114 350.1.13.10 4.2.7.2.686 [id number] [facility] 2024-01-05 00:00:00 2024-01-05 16:14:26 Patient Secure Msg Doctor Unassigned, [place] [facility] 1..840.114 350.1.13.10 4.2.7.2.686 [id number] [facility] 2024-01-05 11:00:00 2024-01-05 11:08:18 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, Ang - [facility] 1.2.840.114 350.1.13.10 4.2.7.2.686 [id number] [facility] 2024-01-05 10:30:00 2024-01-05 10:53:25 Outpatient R CATALINA STAPLETON [facility] [id number] [facility] 2024-01-05 10:30:00 2024-01-05 10:53:25 Office Visit Catalina Stapleton [facility] M[facility]EL[facility] 1..840.114 350.1.13.10 4.2.7.2.686 [id number] [facility] 2024-01-04 00:00:00 2024-01-04 11:17:53 Telephone Catalina Stapleton [facility] 1..840.114 350.1.13.10 4.2.7.2.686 [id number] [facility] 2023-12-16 07:30:00 2023-12-16 07:30:00 Outpatient R CAPRICE STOVER [facility] [id number] [facility] 2023-12-13 00:00:00 2023-12-13 15:06:54 Telephone Caprice Stover [facility] 1.2.840.114 350.1.13.10 4.2.7.2.686 [id number] [facility] 2023-11-28 00:00:00 2023-11-28 00:00:00 Zoe Vegas [facility] [employer] [facility] MAT[facility] & [facility] 1.2.840.114 350.1.13.10 4.2.7.2.686 [id number] 107 [id number] [facility] 2023-11-08 00:00:00 2023-11-08 00:00:00 Telephone Reyes Richards [facility] [employer] [facility] MATERNAL & CHILD [facility] 1..840.114 350.1.13.10 4.2.7.2.686 [id number] [facility] 2023-11-02 11:00:00 2023-11-02 11:29:39 Outpatient R REYES RICHARDS [facility] [id number] [facility] 2023-11-02 11:00:00 2023-11-02 11:29:39 Office Visit Reyes Richards [facility] [employer] [facility] & CHILD [facility] 1.840.114 350.1.13.10 4.2.7.2.686 [id number] [facility] 2023-10-28 10:30:00 2023-10-28 10:30:00 Outpatient R ZOE GOODMAN [facility] [id number] [facility] 2023-10-25 08:00:00 2023-10-25 08:00:00 Outpatient R REYES RICHARDS [facility] [id number] [facility] 2023-10-19 00:00:00 2023-10-19 00:00:00 Telephone Reyes Richards [facility] [employer] [facility] & CHILD [facility] ..840.114 350.1.13.10 4.2.7.2.686 [id number] 107 [id number] [facility] 2023-10-14 00:00:00 2023-10-14 00:00:00 Telephone Reyes Richards [facility] [employer] [facility] & CHILD [facility] 1..840.114 350.1.13.10 4.2.7.2.686 [id number] [facility] 2023-10-04 00:00:00 2023-10-04 00:00:00 Orders Only Doctor Unassigned, [place] [facility] 1.840.114 350.1.13.10 4.2.7.2.686 [id number] [facility] 2023-09-24 13:00:00 2023-09-24 13:07:23 Outpatient R ZOE GOODMAN [facility] [id number] [facility] 2023-09-24 13:00:00 2023-09-24 13:07:23 Nurse Visit Visit, Jonathan-Rmchp Nurse Zoe Goodman [facility] [employer] [facility] & CHILD [facility] 1.840.114 350.1.13.10 4.2.7.2.686 [id number] [facility] 2023-09-23 14:00:00 2023-09-23 14:00:00 Outpatient R [facility] [id number] [facility] 2023-09-22 09:00:00 2023-09-22 09:00:00 Outpatient R [facility] [id number] [facility] 2023-09-21 00:00:00 2023-09-21 00:00:00 Patient Secure Msg Daniellejose mReyes garcia [facility] [employer] [facility] & CHILD [facility] 1.2840.114 350.1.13.10 4.2.7.2.686 [id number] [facility] 2023-09-20 00:00:00 2023-09-20 00:00:00 Nurse Triage Alma Delia Smith [facility] 1.840.114 350.1.13.10 4.2.7.2.686 [id number] [facility] 2023-09-15 14:09:00 2023-09-19 13:41:00 Inpatient P EMI JURADO [facility] [id number] [facility] 2023-09-15 14:09:00 2023-09-19 13:41:00 Hospital Encounter Emi Jurado [facility] 1.2.840.114 350.1.13.10 4.2.7.2.686 [id number] [facility] 2023-09-16 13:00:00 2023-09-16 13:00:00 Outpatient P [facility] [id number] [facility] 2023-09-16 06:00:00 2023-09-16 07:53:00 Surgery Bharti Diaz [facility] 1.2.840.114 350.1.13.10 4.2.7.2.686 [id number] [facility] 2023-09-16 01:20:00 2023-09-16 07:04:00 Anesthesia Event Bulmaro Newberry Rakesh [facility] 1.2.840.114 350.1.13.10 4.2.7.2.686 [id number] [facility] 2023-09-15 10:45:00 2023-09-15 11:00:00 Routine Visit Reyes Richards [facility] [employer] [facility] MATERNAL & CHILD [facility] 1.2840.114 350.1.13.10 4.2.7.2.686 [id number] [facility] 2023-09-15 10:45:00 2023-09-15 10:45:00 Outpatient R REYES RICHARDS [facility] [id number] [facility] 2023-09-15 09:45:00 2023-09-15 10:20:23 Outpatient R SHANNAN VIRK [facility] [id number] [facility] 2023-09-15 09:45:00 2023-09-15 10:20:23 Routine Visit Risk, Ang-Rmchp-N p/High Shannan Virk [facility] [employer] [facility] & CHILD [facility] 1.2.840.114 350.1.13.10 4.2.7.2.686 [id number] [facility] 2023-09-15 00:00:00 2023-09-15 00:00:00 Telephone Zoe Goodman [facility] [employer] [facility] MAT[facility]NAL & CHILD [facility] 1.840.114 350.1.13.10 4.2.7.2.686 [id number] [facility] 2023-09-10 15:02:00 2023-09-10 19:58:00 [facility] [id number] [facility] 2023-09-10 15:02:00 2023-09-10 19:58:00 Hospital Encounter Hannah Dang [facility] 1.0.114 350.1.13.10 4.2.7.2.686 [id number] [facility] 2023-09-10 13:00:00 2023-09-10 13:00:00 Routine Visit Reyes Richards [facility] [employer] [facility] & CHILD [facility] 1..114 350.1.13.10 4.2.7.2.686 [id number] [facility] 2023-09-10 13:00:00 2023-09-10 12:17:44 Outpatient R REYES RICHARDS [facility] [id number] [facility] 2023-09-10 00:00:00 2023-09-10 00:00:00 Telephone Reyes Richards [facility] [employer] [facility] & CHILD [facility] 1..114 350.1.13.10 4.2.7.2.686 [id number] [facility] 2023-09-10 00:00:00 2023-09-10 00:00:00 Nurse Triage Velia Mackenzie [facility] 1.2.840.114 350.1.13.10 4.2.7.2.686 [id number] [facility] 2023-09-10 00:00:00 2023-09-10 00:00:00 Telephone Reyes Richards [employer] [facility] & CHILD [facility] 1.2.840.114 350.1.13.10 4.2.7.2.686 [id number] [facility] 2023-09-09 15:45:00 2023-09-09 16:18:01 Outpatient R REYES RICHARDS ORVIBHA [facility] [id number] [facility] 2023-09-09 15:45:00 2023-09-09 16:18:01 Routine Visit Reyes Richards ORVIBHA [employer] [facility] 1.2.840.114 350.1.13.10 4.2.7.2.686 [id number] [facility] 2023-09-09 00:00:00 2023-09-09 00:00:00 Nurse Triage Lorena Gleason [facility] 1.2.840.114 350.1.13.10 4.2.7.2.686 [id number] [facility] 2023-09-09 00:00:00 2023-09-09 00:00:00 Telephone Reyes Richards ORVIB[facility] [employer] [facility] & CHILD [facility] 1.2.840.114 350.1.13.10 4.2.7.2.686 [id number] 107 [id number] [facility] 2023-09-03 15:30:00 2023-09-03 15:30:00 Routine Visit Reyes Richards ORV[facility] [employer] [facility] & CHILD [facility] 1.2.840.114 350.1.13.10 4.2.7.2.686 [id number] [facility] 2023-09-03 15:30:00 2023-09-03 14:42:39 Outpatient R REYES RICHARDS [facility] [id number] [facility] 2023-09-03 00:00:00 2023-09-03 00:00:00 Nurse Triage LuisAlma Delia hurley [facility] 1.840.114 350.1.13.10 4.2.7.2.686 [id number] [facility] 2023-09-03 00:00:00 2023-09-03 00:00:00 Telephone Reyes Richards [facility] [employer] [facility] & CHILD [facility] 1..840.114 350.1.13.10 4.2.7.2.686 [id number] [facility] 2023-09-02 08:00:00 2023-09-02 08:27:59 Outpatient HANNAH RAMÍREZ SHANNON [facility] [id number] [facility] 2023-09-02 08:00:00 2023-09-02 08:27:59 Stoker Erector Visit Ultrasound, Hannah Mi [facility] [employer] [facility] & CHILD [facility] 1..840.114 350.1.13.10 4.2.7.2.686 [id number] [facility] 2023-09-02 00:00:00 2023-09-02 00:00:00 Case Management Zoe Goodman [facility] [employer] [facility] & CHILD [facility] 1..840.114 350.1.13.10 4.2.7.2.686 [id number] [facility] 2023-09-01 13:45:00 2023-09-01 14:54:59 Outpatient R SHANNAN [facility] [id number] [facility] 2023-09-01 13:45:00 2023-09-01 14:54:59 Routine Visit Risk, Ang-Rmchp-N p/High VirkShannan [facility] [employer] [facility] & CHILD [facility] 1.2.840.114 350.1.13.10 4.2.7.2.686 [id number] [facility] 2023-08-27 00:00:00 2023-08-27 00:00:00 Orders Only Doctor Unassigned, [place] [facility] 1.2840.114 350.1.13.10 4.2.7.2.686 [id number] [facility] 2023-08-26 15:30:00 2023-08-26 16:11:06 Outpatient R REYES [facility] [id number] [facility] 2023-08-26 15:30:00 2023-08-26 16:11:06 Routine Visit Reyes Richards [facility] [employer] [facility] & CHILD [facility] 1..840.114 350.1.13.10 4.2.7.2.686 [id number] [facility] 2023-08-25 15:15:00 2023-08-25 15:15:00 Outpatient R REYES [facility] [id number] [facility] 2023-08-18 00:00:00 2023-08-18 00:00:00 Orders Only Doctor Unassigned, [place] [facility] 1.840.114 350.1.13.10 4.2.7.2.686 [id number] [facility] 2023-08-11 10:00:00 2023-08-11 10:47:14 Outpatient R REYES [facility] [id number] [facility] 2023-08-11 10:00:00 2023-08-11 10:47:14 Routine Visit Reyes Richards [facility] [employer] [facility] & CHILD [facility] 1.2.840.114 350.1.13.10 4.2.7.2.686 [id number] 107 [id number] [facility] 2023-08-02 17:48:00 2023-08-02 20:20:00 Outpatient X SIERRA-GRACIELA S, BETTIE SIERRA-GRACIELA S, BETTIE [facility] TRICIA [id number] [facility] 2023-08-02 17:48:00 2023-08-02 20:20:00 Emergency Sierra-Graciela s, Bettie [facility] 1.2840.114 350.1.13.10 4.2.7.2.686 [id number] [facility] 2023-08-02 00:00:00 2023-08-02 00:00:00 Nurse Triage Dominick [facility] 1.840.114 350.1.13.10 4.2.7.2.686 [id number] [facility] 2023-07-29 15:45:00 2023-07-29 16:04:58 Outpatient R REYES RICHARDS [facility] [id number] [facility] 2023-07-29 15:45:00 2023-07-29 16:04:58 Routine Visit Reyes Richards [facility] [employer] [facility] CHILD [facility] 1.2.840.114 350.1.13.10 4.2.7.2.686 [id number] 107 [id number] [facility] 2023-07-18 20:32:00 2023-07-18 22:40:00 Outpatient X SIERRA-GRACIELA S, BETTIE SIERRA-GRACIELA S, BETTIE [facility] TRICIA [id number] [facility] 2023-07-18 20:32:00 2023-07-18 22:40:00 Emergency Jose Arceo Sierra-Graciela s, Bettie [facility] 1.2.840.114 350.1.13.10 4.2.7.2.686 [id number] [id number] [facility] 2023-07-18 00:00:00 2023-07-18 00:00:00 Nurse Triage Jayde Nation [facility] 1.2.840.114 350.1.13.10 4.2.7.2.686 [id number] [facility] 2023-07-13 00:00:00 2023-07-13 00:00:00 Case Management Zoe Goodman [facility] [employer] [facility] & CHILD [facility] 1.2840.114 350.1.13.10 4.2.7.2.686 [id number] [facility] 2023-07-12 13:45:00 2023-07-12 14:01:59 Outpatient R REYES [facility]ARDS [facility] [id number] [facility] 2023-07-12 13:45:00 2023-07-12 14:01:59 Routine Visit Reyes Richards [facility] [employer] [facility] CHILD [facility] 1.2840.114 350.1.13.10 4.2.7.2.686 [id number] 107 [id number] [facility] 2023-07-09 13:30:00 2023-07-09 13:30:00 Outpatient R ZOE GOODMAN [facility] [id number] [facility] 2023-06-30 14:15:00 2023-06-30 15:11:25 Outpatient R ZOE GOODMAN [facility] [id number] [facility] 2023-06-30 14:15:00 2023-06-30 15:11:25 Routine Visit Zoe Goodman [facility] [employer] [facility]ILD [facility] 1.2840.114 350.1.13.10 4.2.7.2.686 [id number] 107 [id number] [facility] 2023-06-02 14:15:00 2023-06-02 15:28:00 Outpatient R ZOE GOODMAN [facility] [id number] [facility] 2023-06-02 14:15:00 2023-06-02 15:28:00 Routine Visit Zoe Goodman [facility] [employer] [facility] CHILD [facility] 1.840.114 350.1.13.10 4.2.7.2.686 [id number] 107 [id number] [facility] 2023-05-20 00:00:00 2023-05-20 00:00:00 [facility] 1.0.114 350.1.13.10 4.2.7.2.686 [id number] 107 [id number] [facility] 2023-05-19 14:45:00 2023-05-19 16:00:00 Stoker Erector Visit Ultrasound, Hannah Mi [facility] [employer] [facility] CHILD [facility] 1..114 350.1.13.10 4.2.7.2.686 [id number] [facility] 2023-05-19 14:45:00 2023-05-19 14:45:00 Outpatient HANNAH RAMÍREZ SHANNON [facility] [id number] [facility] 2023-05-05 14:15:00 2023-05-05 14:59:44 Outpatient R ZOE GOODMAN [facility] [id number] [facility] 2023-05-05 14:15:00 2023-05-05 14:59:44 [facility] [employer] [facility] & CHILD [facility] 1..114 350.1.13.10 4.2.7.2.686 [id number] 107 [id number] [facility] 2023-04-19 00:00:00 2023-04-19 00:00:00 Telephone Zoe Goodman [facility] [employer] [facility] & CHILD [facility] 1.2.840.114 350.1.13.10 4.2.7.2.686 [id number] 107 [id number] [facility] 2023-04-08 14:15:00 2023-04-08 15:04:18 Outpatient R ZOE GOODMAN [facility] [id number] [facility] 2023-04-08 14:15:00 2023-04-08 15:04:18 Routine Visit Zoe Goodman [facility] CHILD [facility] 1.2.840.114 350.1.13.10 4.2.7.2.686 [id number] 107 [id number] [facility] 2023-03-30 00:00:00 2023-03-30 00:00:00 Case Management Zoe Goodman [facility] 1.2.840.114 350.1.13.10 4.2.7.2.686 [id number] 107 [id number] [facility] 2023-03-29 13:15:00 2023-03-29 13:30:00 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, [facility] Zoe Goodman Sangeeta [facility] 1.2.840.114 350.1.13.10 4.2.7.2.686 [id number] 107 [id number] [facility] 2023-03-29 11:15:00 2023-03-29 11:46:14 Outpatient P ALEXA WATKINS [facility] [id number] [facility] 2023-03-29 11:15:00 2023-03-29 11:46:14 Stoker Erector Visit Ultrasound, Alexa Miranda [facility] [employer] [facility] & CHILD [facility] 1.2.840.114 350.1.13.10 4.2.7.2.686 [id number] [facility] 2023-03-29 00:00:00 2023-03-29 00:00:00 Case Management Reyes Richards [facility] [employer] [facility] & CHILD [facility] 1.2.840.114 350.1.13.10 4.2.7.2.686 [id number] 107 [id number] [facility] 2023-03-26 00:00:00 2023-03-26 00:00:00 Telephone Zoe Goodman [facility] [employer] DEVELOPER [facility] CHILD [facility] 1.2.840.114 350.1.13.10 4.2.7.2.686 [id number] 107 [id number] [facility] 2023-03-24 00:00:00 2023-03-24 00:00:00 Telephone Zoe Goodman [facility] [employer] [facility] CHILD [facility] 1.2.840.114 350.1.13.10 4.2.7.2.686 [id number] 107 [id number] [facility] 2023-03-23 00:00:00 2023-03-23 00:00:00 RefZoe Mckeon [facility] [employer] [facility] & CHILD [facility] 1.2.840.114 350.1.13.10 4.2.7.2.686 [id number] 107 [id number] [facility] 2023-03-15 00:00:00 2023-03-15 00:00:00 Telephone Zoe Goodman [facility] [employer] [facility] CHILD [facility] 1.2.840.114 350.1.13.10 4.2.7.2.686 [id number] 107 [id number] [facility] 2023-03-11 14:15:00 2023-03-11 14:52:50 Outpatient R ZOE GOODMAN [facility] [id number] [facility] 2023-03-11 14:15:00 2023-03-11 14:52:50 [facility] [employer] [facility] CHILD [facility] 1..840.114 350.1.13.10 4.2.7.2.686 [id number] 107 [id number] [facility] 2023-03-04 08:45:00 2023-03-04 08:45:00 Outpatient R [facility] [id number] [facility] 2023-03-04 00:00:00 2023-03-04 00:00:00 Case Management [facility] [employer] [facility] & CHILD [facility] 1.840.114 350.1.13.10 4.2.7.2.686 [id number] 107 [id number] [facility] 2023-03-04 00:00:00 2023-03-04 00:00:00 Telephone BetteAilyn [facility] 1..840.114 350.1.13.10 4.2.7.2.686 [id number] 107 [id number] [facility] 2023-03-03 15:30:00 2023-03-03 15:45:33 Outpatient P HANNAH DANG SHANNON [facility] [id number] [facility] 2023-03-03 15:30:00 2023-03-03 15:45:33 Stoker Erector Visit 4, [facility] Us Room Hannah Dang [facility] 1.840.114 350.1.13.10 4.2.7.2.686 [id number] [facility] 2023-03-02 00:00:00 2023-03-02 00:00:00 Telephone Zoe Goodman [facility] [employer] [facility] CHILD [facility] 1.2.840.114 350.1.13.10 4.2.7.2.686 [id number] 107 [id number] [facility] 2023-03-01 19:14:00 2023-03-01 20:36:00 Emergency X ISAIAH K[facility]EN [facility] [id number] [facility] 2023-03-01 19:14:00 2023-03-01 20:36:00 Emergency Isaiah Karen [facility] 1.2.840.114 350.1.13.10 4.2.7.2.686 [id number] [id number] [facility] 2023-03-01 00:00:00 2023-03-01 00:00:00 [facility]phone [facility] [employer] [facility] CHILD [facility] 1.2.840.114 350.1.13.10 4.2.7.2.686 [id number] 107 [id number] [facility] 2023-02-27 00:00:00 2023-02-27 00:00:00 Nurse Triage Lawson Fermin [facility] 1.2.840.114 350.1.13.10 4.2.7.2.686 [id number] [facility] 2023-02-11 08:45:00 2023-02-11 09:47:24 Outpatient R ZOE GOODMAN [facility] [id number] [facility] 2023-02-11 08:45:00 2023-02-11 09:47:24 Initial Visit Zoe Goodman [facility] [employer] [facility] CHILD [facility] 1.2.840.114 350.1.13.10 4.2.7.2.686 [id number] 107 [id number] [facility] 2023-02-11 00:00:00 2023-02-11 00:00:00 Orders Only Doctor Unassigned, [place]aluu [facility] 1.2840.114 350.1.13.10 4.2.7.2.686 [id number] [facility] 2023-02-04 08:15:00 2023-02-04 08:15:00 Outpatient R ZOE GOODMAN [facility] [id number] [facility] 2023-01-05 11:00:00 2023-01-05 11:00:00 Outpatient R CATALINA STAPLETON [facility] [id number] [facility] 2022-12-30 16:20:00 2022-12-30 16:49:52 Outpatient R KAYLENE JOHNSTON [facility] [id number] [facility] 2022-12-30 16:20:00 2022-12-30 16:49:52 Urgent Care Kaylene Johnston Unknown, Attending [facility] 1..840.114 350.1.13.10 4.2.7.2.686 [id number] 370 [id number] [facility] 2022-12-30 00:00:00 2022-12-30 00:00:00 Orders Only Doctor Unassigned, [place]aluu [facility] 1.2840.114 350.1.13.10 4.2.7.2.686 [id number] [facility] 2022-12-25 00:00:00 2022-12-25 00:00:00 Refill Catalina Stapleton [facility] 1.2.840.114 350.1.13.10 4.2.7.2.686 [id number] [id number] [facility] 2022-08-10 13:30:00 2022-08-10 13:30:00 Outpatient CATALINA HURST [facility] [id number] [facility] 2022-08-07 00:00:00 2022-08-07 00:00:00 Telephone Catalina Stapleton [facility] 1.2.840.114 350.1.13.10 4.2.7.2.686 [id number] [facility] 2022-08-07 00:00:00 2022-08-07 00:00:00 Patient Secure Msg Doctor Unassigned, [place] [facility] 1.2.840.114 350.1.13.10 4.2.7.2.686 [id number] [facility] 2022-05-18 09:20:00 2022-05-18 09:40:00 Urgent Care Rhonda Guerratany [facility] MADELAINE?[facility] 1..840.114 350.1.13.10 4.2.7.2.686 [id number] 370 [id number] [facility] 2022-05-18 09:20:00 2022-05-18 09:36:56 Outpatient R ANUM GUERRA [facility] [id number] [facility] 2022-05-18 00:00:00 2022-05-18 00:00:00 Letter (Out) Provider, Jonathan Brock [facility] MADELAINE?[facility] 1..840.114 350.1.13.10 4.2.7.2.686 [id number] 370 [id number] [facility] 2022-05-05 00:00:00 2022-05-05 00:00:00 Refill Caprice Stover [facility] MADELAINE?[facility] 1.2.840.114 350.1.13.10 4.2.7.2.686 [id number] [facility] 2022-03-30 16:00:00 2022-03-30 16:00:00 Outpatient R CATALINA STAPLETON [facility] [id number] [facility] 2022-03-30 16:00:00 2022-03-30 16:00:00 Outpatient R CATALINA STAPLETON [facility] [id number] [facility] 2022-03-30 16:00:00 2022-03-30 16:00:00 Outpatient R CATALINA STAPLETON [facility] [id number] [facility] 2022-03-06 14:00:00 2022-03-06 14:23:04 Outpatient R CHRISTINE PENA [facility] [id number] [facility] 2022-03-06 14:00:00 2022-03-06 14:23:04 Urgent Care Christine Pena Kimberly J [facility] 1..840.114 350.1.13.10 4.2.7.2.686 [id number] 370 [id number] [facility] 2022-03-06 14:00:00 2022-03-06 14:23:04 Outpatient R CHRISTINE PENA [facility] [id number] [facility] 2022-03-05 09:00:00 2022-03-05 09:20:04 Outpatient R CHRISTINE PENA [facility] [id number] [facility] 2022-03-05 09:00:00 2022-03-05 09:20:04 Urgent Care Britney Escudero Christine [facility] 1..840.114 350.1.13.10 4.2.7.2.686 [id number] 370 [id number] [facility] 2022-02-16 15:30:00 2022-02-16 15:45:00 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, Caprice Jean [facility] 1..840.114 350.1.13.10 4.2.7.2.686 [id number] [facility] 2022-02-16 15:30:00 2022-02-16 15:30:00 Outpatient R CAPRICE STOVER [facility] [id number] [facility] 2022-02-16 14:30:00 2022-02-16 15:19:04 Office Visit Catalina Stapleton [facility]?RIMMA [facility] 1.2.840.114 350.1.13.10 4.2.7.2.686 [id number] [facility] 2022-02-16 14:30:00 2022-02-16 15:19:04 Outpatient R CATALINA STAPLETON [facility] [id number] [facility] 2022-02-16 14:30:00 2022-02-16 14:30:00 Outpatient R CATALINA STAPLETON [facility] [id number] [facility] 2022-02-06 13:00:00 2022-02-06 13:00:00 Outpatient R CAPRICE STOVER [facility] [id number] [facility] 2022-01-16 11:00:00 2022-01-16 11:00:00 Urgent Care Ciarra Yost [facility] 1.2.840.114 350.1.13.10 4.2.7.2.686 [id number] 370 [id number] [facility] 2022-01-16 11:00:00 2022-01-16 09:54:38 [facility] [id number] [facility] 2021-12-12 18:00:00 2021-12-12 18:48:04 Outpatient R MONTY CABRERA [facility] [id number] [facility] 2021-12-12 18:00:00 2021-12-12 18:20:00 Urgent Care Monty Cabrera Unknown, Attending [facility] MADELAINE?[facility] 1.840.114 350.1.13.10 4.2.7.2.686 [id number] 370 [id number] [facility] 2021-12-12 11:20:00 2021-12-12 11:20:00 Outpatient R MONTY CABRERA [facility] [id number] [facility] 2021-12-08 17:45:00 2021-12-08 18:20:03 Outpatient R HERNANDEZ, ROSDEEJAY [facility] [id number] [facility] 2021-12-08 17:45:00 2021-12-08 18:20:03 Office Visit Milagros Hernandezsalazar R [facility] [employer] [facility] & CHILD [facility] 1..840.114 350.1.13.10 4.2.7.2.686 [id number] 107 [id number] [facility] 2021-12-04 15:30:00 2021-12-04 15:30:00 Outpatient R REYES RICHARDS [facility] [id number] [facility] 2021-12-02 15:45:00 2021-12-02 15:45:00 Outpatient R SANDIE RICHARDSILOLA [facility] [id number] [facility] 2021-11-21 14:15:00 2021-11-21 14:15:00 Outpatient P SANDIE RICHARDSILOLA [facility] [id number] [facility] 2021-11-21 13:00:00 2021-11-21 13:00:00 Outpatient P [facility] [id number] [facility] 2021-11-20 00:00:00 2021-11-20 00:00:00 Telephone Reyes Richards [facility] [employer] [facility] & CHILD [facility] 1..840.114 350.1.13.10 4.2.7.2.686 [id number] 107 [id number] [facility] 2021-11-07 09:15:00 2021-11-07 10:05:09 Outpatient R BRUCE CALLEJAS [facility] [id number] [facility] 2021-11-07 09:15:00 2021-11-07 10:05:09 Routine Visit Trimester, [facility]-1st CallejasBruce [facility] 1..840.114 350.1.13.10 4.2.7.2.686 [id number] [facility] 2021-11-07 09:15:00 2021-11-07 10:05:09 Outpatient R BRUCE CALLEJAS [facility] [id number] [facility] 2021-11-06 14:45:00 2021-11-06 14:45:00 Routine Visit Reyes Richards [facility] [employer] DEV[employer] [facility] 1..840.114 350.1.13.10 4.2.7.2.686 [id number] 107 [id number] [facility] 2021-11-06 14:45:00 2021-11-06 10:06:06 Outpatient REYES DHALIWAL [facility] [id number] [facility] 2021-11-04 07:19:00 2021-11-04 10:56:00 Emergency X EUN SANTOS [facility] ERT [id number] [facility] 2021-11-04 07:19:00 2021-11-04 10:56:00 Emergency Eun Santos [facility] 1..840.114 350.1.13.10 4.2.7.2.686 [id number] [facility] 2021-11-04 07:19:00 2021-11-04 10:56:00 Emergency X EUN SANTOS [facility] ERT [id number] [facility] 2021-11-04 00:00:00 2021-11-04 00:00:00 Orders Only Doctor Unassigned, [place] [facility] 1.2.840.114 350.1.13.10 4.2.7.2.686 [id number] [facility] 2021-10-27 00:00:00 2021-10-27 00:00:00 Nurse Triage Velia Mackenzie [facility] 1.2840.114 350.1.13.10 4.2.7.2.686 [id number] [facility] 2021-10-23 09:20:00 2021-10-23 09:20:00 Outpatient R JAKE KOCH III [facility] [id number] [facility] 2021-10-21 14:00:00 2021-10-21 15:22:33 Outpatient R REYES RICHARDS [facility] [id number] [facility] 2021-10-21 14:00:00 2021-10-21 15:22:33 Initial Visit Reyes Richards [facility] [employer] [facility] 1.2840.114 350.1.13.10 4.2.7.2.686 [id number] 107 [id number] [facility] 2021-10-21 00:00:00 2021-10-21 00:00:00 Orders Only Doctor Unassigned, [place] [facility] 1.2840.114 350.1.13.10 4.2.7.2.686 [id number] [facility] 2021-05-09 11:00:00 2021-05-09 11:00:00 Outpatient R HERMELINDO MATIAS [facility] [id number] [facility] 2021-03-05 14:00:00 2021-03-05 14:00:00 Outpatient R REYES RICHARDS [facility] [id number] [facility] 2021-02-19 16:48:57 2021-02-19 17:22:20 Routine Visit Vincent Hernandez [facility] [employer] [facility] & CHILD [facility] 1.840.114 350.1.13.10 4.2.7.2.686 [id number] 107 [id number] [facility] 2021-02-19 16:30:00 2021-02-19 16:30:00 Outpatient R VINCENT [facility] [id number] [facility] 2021-02-06 10:20:00 2021-02-06 11:16:00 Emergency Josee Arrington [facility] 1..114 350.1.13.10 4.2.7.2.686 [id number] [facility] 2021-01-23 00:00:00 2021-01-23 00:00:00 Patient Secure Msg Doctor Unassigned, [place] [facility] 1..114 350.1.13.10 4.2.7.2.686 [id number] [facility] 2021-01-10 09:30:00 2021-01-10 09:30:00 Outpatient R REYES [facility] [id number] [facility] 2021-01-09 00:00:00 2021-01-09 00:00:00 Telephone Reyes Richards [facility] [employer] [facility]ILD [facility] 1.84.114 350.1.13.10 4.2.7.2.686 [id number] [facility] 2021-01-09 00:00:00 2021-01-09 00:00:00 Orders Only Doctor Unassigned, [place] [facility] 1.84.114 350.1.13.10 4.2.7.2.686 [id number] [facility] 2021-01-08 08:00:2021-01-08 08:00:00 Outpatient [facility] [id number] [facility] 2021-01-07 15:00:00 2021-01-07 21:17:00 Hospital Encounter Sarika Fuller [facility] 1..114 350.1.13.10 4.2.7.2.686 [id number] [facility] 2021-01-07 00:00:00 2021-01-07 00:00:00 Telephone Reyes Richards [facility] [employer] [facility] & [facility]ILD [facility] 1..114 350.1.13.10 4.2.7.2.686 [id number] [facility] 2021-01-07 00:00:00 2021-01-07 00:00:00 Orders Only Doctor Unassigned, [place] [facility] 1..114 350.1.13.10 4.2.7.2.686 [id number] [facility] 2021-01-03 13:00:00 2021-01-03 13:00:00 Outpatient R TIMA [facility] [id number] [facility] 2021-01-03 11:07:56 2021-01-03 12:07:53 Routine Visit Reyes Richards [facility] [employer] [facility]ILD [facility] 1.84.114 350.1.13.10 4.2.7.2.686 [id number] [facility] 2021-01-03 11:00:00 2021-01-03 11:00:00 Outpatient R REYES [facility] [id number] [facility] 2021-01-02 00:00:00 2021-01-02 00:00:00 Nurse Triage Eloisa Wilson [facility] 1..114 350.1.13.10 4.2.7.2.686 [id number] [facility] 2021-01-01 13:11:31 2021-01-01 13:26:31 Routine Visit Reyes Richards [facility] [employer] [facility] & [facility]ILD [facility] 1.840.114 350.1.13.10 4.2.7.2.686 [id number] [facility] 2021-01-01 13:15:00 2021-01-01 13:15:00 Outpatient R REYES [facility] [facility] [id number] [facility] 2020-12-29 11:56:00 2020-12-29 12:16:00 Laboratory Only Lab, [facility] Brice PenaFormerly [facility] Office [facility] One 1.84.114 350.1.13.10 4.2.7.2.686 [id number] [facility] 2020-12-29 11:40:00 2020-12-29 11:40:00 Outpatient R [facility] [id number] [facility] 2020-12-27 00:00:00 2020-12-27 00:00:00 Abstract Reyes Richards [facility] [employer] [facility] & CHILD [facility] 1.840.114 350.1.13.10 4.2.7.2.686 [id number] 107 [id number] [facility] 2020-12-27 00:00:00 2020-12-27 00:00:00 Telephone Reyes Richards [facility] [employer] DEV[employer] [facility] CHILD [facility] 1.84.114 350.1.13.10 4.2.7.2.686 [id number] 107 [id number] [facility] 2020-12-26 00:00:00 2020-12-26 00:00:00 Telephone Reyes Richards [facility] 1.84.114 350.1.13.10 4.2.7.2.686 [id number] 107 [id number] [facility] 2020-12-25 13:29:28 2020-12-25 14:41:02 Routine Visit Reyes Richards [facility] [employer] DEVELOPER [facility] 1.840.114 350.1.13.10 4.2.7.2.686 [id number] 107 [id number] [facility] 2020-12-25 14:00:00 2020-12-25 14:00:00 Outpatient R REYES RICHARDS [facility] [id number] [facility] 2020-12-25 12:57:01 2020-12-25 13:27:01 Stoker Erector Visit Ultrasound, Rashel Tinoco [facility] ..114 350.1.13.10 4.2.7.2.686 [id number] [facility] 2020-12-23 16:00:00 2020-12-23 16:00:00 Outpatient R TIMA HERRING [facility] [id number] [facility] 2020-12-18 13:00:00 2020-12-18 13:00:00 Outpatient R REYES RICHARDS [facility] [id number] [facility] 2020-12-18 00:00:00 2020-12-18 00:00:00 Patient Secure Msg Doctor Unassigned, [place] [facility] 1.84.114 350.1.13.10 4.2.7.2.686 [id number] [facility] 2020-12-09 10:52:02 2020-12-09 11:07:02 Routine Visit Reyes Richards [facility] [employer] DEV[employer] [facility] & CHILD [facility] 1.2.840.114 350.1.13.10 4.2.7.2.686 [id number] 107 [id number] [facility] 2020-12-09 11:00:00 2020-12-09 11:00:00 Outpatient R REYES RICHARDS [facility] [id number] [facility] 2020-12-07 00:00:00 2020-12-07 00:00:00 Nurse Triage Shae Cullen [facility] 1..114 350.1.13.10 4.2.7.2.686 [id number] [facility] 2020-12-04 12:48:15 2020-12-04 13:45:19 Office Visit Tima Herring [facility] 1..114 350.1.13.10 4.2.7.2.686 [id number] [facility] 2020-12-04 13:00:00 2020-12-04 13:00:00 Outpatient R TIMA HERRING [facility] [id number] [facility] 2020-12-04 10:12:46 2020-12-04 10:59:17 Routine Visit Reyes Richards [facility] [employer] DEV[employer] [facility] & CHILD [facility] 1..114 350.1.13.10 4.2.7.2.686 [id number] [facility] 2020-12-04 00:00:00 2020-12-04 00:00:00 Letter (Out) Reyes Richards [facility] [employer] DEV[employer] [facility] & CHILD [facility] 1..114 350.1.13.10 4.2.7.2.686 [id number] 107 [id number] [facility] 2020-11-27 13:00:50 2020-11-27 13:30:50 Stoker Erector Visit Ultrasound, Rashel Tinoco [facility] [employer] DEV[employer]OPER [facility] & CHILD [facility] 1..840.114 350.1.13.10 4.2.7.2.686 [id number] [facility] 2020-11-27 13:00:00 2020-11-27 13:00:00 Outpatient P [facility] [id number] [facility] 2020-11-27 00:00:00 2020-11-27 00:00:00 Abstract Reyes Richards [facility] [employer] DEV[employer] [facility] & CHILD [facility] 1..840.114 350.1.13.10 4.2.7.2.686 [id number] 107 [id number] [facility] 2020-11-20 15:44:37 2020-11-20 15:59:37 Routine Visit Reyes Richards [facility] [employer] DEV[employer] [facility] & CHILD [facility] 1..840.114 350.1.13.10 4.2.7.2.686 [id number] 107 [id number] [facility] 2020-11-20 15:45:00 2020-11-20 15:45:00 Outpatient R REYES RICHARDS [facility] [id number] [facility] 2020-11-08 13:30:00 2020-11-08 13:30:00 Outpatient R REYES RICHARDS [facility] [id number] [facility] 2020-11-08 11:07:29 2020-11-08 11:48:32 Routine Visit Reyes Richards [facility] [employer] DEV[employer] [facility] & CHILD [facility] ..840.114 350.1.13.10 4.2.7.2.686 [id number] 107 [id number] [facility] 2020-11-08 11:00:00 2020-11-08 11:00:00 Outpatient R REYES RICHARDS [facility] [id number] [facility] 2020-11-06 10:45:00 2020-11-06 10:45:00 Outpatient R REYES RICHARDS [facility] [id number] [facility] 2020-10-30 12:59:19 2020-10-30 13:29:19 Stoker Erector Visit Ultrasound, Tyler Gentile [facility] [employer] DEV[employer] [facility] & CHILD [facility] 1.2.840.114 350.1.13.10 4.2.7.2.686 [id number] [facility] 2020-10-30 13:00:00 2020-10-30 13:00:00 Outpatient P [facility] [id number] [facility] 2020-10-30 00:00:00 2020-10-30 00:00:00 Abstract Reyes Richards [facility] [employer] DEV[employer]OPER [facility] & CHILD [facility] 1..840.114 350.1.13.10 4.2.7.2.686 [id number] 107 [id number] [facility] 2020-10-25 13:14:35 2020-10-25 13:46:56 Routine Visit Reyes Richards [facility] [employer] DEVELOPER [facility] 1..840.114 350.1.13.10 4.2.7.2.686 [id number] 107 [id number] [facility] 2020-10-25 13:00:00 2020-10-25 13:00:00 Outpatient R REYES RICHARDS [facility] [id number] [facility] 2020-10-18 12:45:00 2020-10-18 12:45:00 Outpatient R REYES RICHARDS [facility] [id number] [facility] 2020-10-14 00:00:00 2020-10-14 00:00:00 Telephone Reyes Richards [facility] [employer] DEV[employer]OPER [facility] & CHILD [facility] 1..840.114 350.1.13.10 4.2.7.2.686 [id number] 107 [id number] [facility] 2020-10-11 14:37:11 2020-10-11 15:21:23 Routine Visit Susie Reyes Bay [facility] [employer] DEVELOPER [facility] & CHILD [facility] 1.840.114 350.1.13.10 4.2.7.2.686 [id number] [facility] 2020-10-11 14:30:00 2020-10-11 14:30:00 Outpatient R REYES RICHARDS [facility] [id number] [facility] 2020-10-10 00:00:00 2020-10-10 00:00:00 Patient Secure Msg Doctor Unassigned, [place] [facility] 1..840.114 350.1.13.10 4.2.7.2.686 [id number] 107 [id number] [facility] 2020-10-08 09:16:07 2020-10-08 10:17:01 Urgent Care Provider, Jonathan [facility] Cristian Day [facility] Professio nal Office Building One .84.114 350.1.13.10 4.2.7.2.686 [id number] [facility] 2020-10-08 09:00:00 2020-10-08 09:00:00 Outpatient R CRISTIAN DAY [facility] [id number] [facility] 2020-10-07 00:00:00 2020-10-07 00:00:00 Abstract Daniellejose mReyes garcia [facility] 1..840.114 350.1.13.10 4.2.7.2.686 [id number] 107 [id number] [facility] 2020-10-02 14:40:05 2020-10-02 15:25:05 Stoker Erector Visit Ultrasound, Rashel Tinoco [facility] [employer] DEVELOPER [facility] & CHILD [facility] 1.2.840.114 350.1.13.10 4.2.7.2.686 [id number] [facility] 2020-10-02 14:30:00 2020-10-02 14:30:00 Outpatient P [facility] [id number] [facility] 2020-10-02 00:00:00 2020-10-02 00:00:00 Telephone Reyes Richards [facility] [employer] DEVELOPER [facility] & CHILD [facility] 1.2.840.114 350.1.13.10 4.2.7.2.686 [id number] 107 [id number] [facility] 2020-09-23 09:00:00 2020-09-23 09:00:00 Outpatient R REYES RICHARDS [facility] [id number] [facility] 2020-09-20 14:50:44 2020-09-20 15:12:59 Routine Visit Reyes Richards [facility] [employer] DEVELOPER [facility] & CHILD [facility] 1.2.840.114 350.1.13.10 4.2.7.2.686 [id number] 107 [id number] 2020-09-20 14:50:44 2020-09-20 15:12:59 Routine Visit Reyes Richards [facility] [employer] DEVELOPER [facility] & CHILD [facility] 1.2.840.114 350.1.13.10 4.2.7.2.686 [id number] 107 [id number] [facility] 2020-09-20 15:00:00 2020-09-20 15:00:00 Outpatient R REYES RICHARDS [facility] [id number] [facility] 2020-09-20 14:00:00 2020-09-20 14:00:00 Outpatient R REYES RICHARDS [facility] [id number] [facility] 2020-09-09 00:00:00 2020-09-09 00:00:00 Abstract Reyes Richards [facility] [employer] DEVELOPER [facility] & CHILD [facility] 1.2.840.114 350.1.13.10 4.2.7.2.686 [id number] 107 [id number] 2020-09-09 00:00:00 2020-09-09 00:00:00 Abstract Reyes Richards [facility] [employer] DEVELOPER [facility] CHILD [facility] 1.2.840.114 350.1.13.10 4.2.7.2.686 [id number] 107 [id number] [facility] 2020-09-05 13:33:01 2020-09-05 15:36:46 Stoker Erector Visit 2, [facility] Usg Room [facility] 1.2840.114 350.1.13.10 4.2.7.2.686 [id number] 104 [id number] 2020-09-05 13:33:01 2020-09-05 15:36:46 Stoker Erector Visit 2, [facility] Us Room Gretchen arroyo [facility] 1.2840.114 350.1.13.10 4.2.7.2.686 [id number] [facility] 2020-09-05 13:30:00 2020-09-05 13:30:00 Outpatient P [facility] [id number] [facility] 2020-09-05 13:00:00 2020-09-05 13:00:00 Outpatient P [facility] [id number] [facility] 2020-09-05 00:00:00 2020-09-05 00:00:00 Letter (Out) Gretchen arroyo [facility] 1.2.840.114 350.1.13.10 4.2.7.2.686 [id number] 2020-09-05 00:00:00 2020-09-05 00:00:00 Letter (Out) Tyler Fernandez [facility] 1.2840.114 350.1.13.10 4.2.7.2.686 [id number] 104 [id number] [facility] 2020-08-23 14:04:04 2020-08-23 15:06:18 Routine Visit Reyes Richards [facility] [employer] DEVELOPER [facility] & CHILD [facility] 1.2.840.114 350.1.13.10 4.2.7.2.686 [id number] 2020-08-23 14:04:04 2020-08-23 15:06:18 Routine Visit Reyes Richards [facility] [employer] DEVELOPER [facility] & CHILD [facility] 1.2.840.114 350.1.13.10 4.2.7.2.686 [id number] 107 [id number] [facility] 2020-08-23 14:00:00 2020-08-23 14:00:00 Outpatient R REYES RICHARDS [facility] [id number] [facility] 2020-07-29 09:15:00 2020-07-29 09:15:00 Outpatient R [facility] [id number] [facility] 2020-07-29 08:08:23 2020-07-29 08:53:23 Telemedici ne Visit Faculty, Jonathan Mercedes [facility] [employer] DEVELOPER [facility] & CHILD [facility] 1.2840.114 350.1.13.10 4.2.7.2.686 [id number] 107 [id number] 2020-07-29 08:08:23 2020-07-29 08:53:23 Telemedici ne Visit Faculty, Ran Fenton [facility] [employer] DEVELOPER [facility] CHILD [facility] 1.2.840.114 350.1.13.10 4.2.7.2.686 [id number] 107 [id number] [facility] 2020-07-26 14:10:32 2020-07-26 14:29:49 Routine Visit Reyes Richards [facility] [employer] DEVELOPER [facility] & [facility] 1.2.114 350.1.13.10 4.2.7.2.686 [id number] 107 [id number] 2020-07-26 14:10:32 2020-07-26 14:29:49 Routine Visit Reyes Richards [facility] [employer] DEVELOPER [facility] CHILD [facility] 1.2.114 350.1.13.10 4.2.7.2.686 [id number] 107 [id number] [facility] 2020-07-26 14:00:00 2020-07-26 14:00:00 Outpatient R REYES RICHARDS [facility] [id number] [facility] 2020-07-25 13:00:00 2020-07-25 13:00:00 Outpatient R REYES RIHCARDS [facility] [id number] [facility] 2020-07-19 00:00:00 2020-07-19 00:00:00 Abstract Reyes Richards [facility] [employer] DEVELOPER [facility] CHILD [facility] 1..114 350.1.13.10 4.2.7.2.686 [id number] 107 [id number] 2020-07-19 00:00:00 2020-07-19 00:00:00 Abstract Reyes Richards [facility] [employer] DEVELOPER [facility] & CHILD [facility] 1..114 350.1.13.10 4.2.7.2.686 [id number] 107 [id number] [facility] 2020-07-18 13:50:07 2020-07-18 14:09:23 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, [facility] 1..114 350.1.13.10 4.2.7.2.686 [id number] 2020-07-18 13:50:07 2020-07-18 14:09:23 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 Tenageorgiacindy arroyo [facility] 1.2.840.114 350.1.13.10 4.2.7.2.686 [id number] [facility] 2020-07-18 14:00:00 2020-07-18 14:00:00 Outpatient R [facility] [id number] [facility] 2020-07-18 12:59:10 2020-07-18 13:43:54 Stoker Erector Visit 1, [facility] 1.2.840.114 350.1.13.10 4.2.7.2.686 [id number] 2020-07-18 12:59:10 2020-07-18 13:43:54 Stoker Erector Visit 1, [facility] Room Gretchen Tenageorgiacindy arroyo [facility] 1.2.840.114 350.1.13.10 4.2.7.2.686 [id number] 104 [id number] [facility] 2020-07-18 00:00:00 2020-07-18 00:00:00 [facility] 1.2.840.114 350.1.13.10 4.2.7.2.686 [id number] 2020-07-18 00:00:00 2020-07-18 00:00:00 Case Management Aleyda Ocasio [facility] 1.2.840.114 350.1.13.10 4.2.7.2.686 [id number] 2020-07-18 00:00:00 2020-07-18 00:00:00 Letter (Out) [facility] 1.2.840.114 350.1.13.10 4.2.7.2.686 [id number] [facility] 2020-07-18 00:00:00 2020-07-18 00:00:00 Case Management Amarjit Aleyda [facility] 1.2.840.114 350.1.13.10 4.2.7.2.686 [id number] 113 [id number] [facility] 2020-07-16 00:00:00 2020-07-16 00:00:00 Patient Secure Msg Doctor Unassigned, [place] [facility] [employer] DEVELOPER [facility] CHILD [facility] 1.2.840.114 350.1.13.10 4.2.7.2.686 [id number] 107 [id number] [facility] 2020-07-15 08:10:49 2020-07-15 16:33:08 Telemedici ne Visit Faculty, Jonathan Mercedes [facility] [employer] DEVELOPER [facility] CHILD [facility] 1.2.840.114 350.1.13.10 4.2.7.2.686 [id number] 107 [id number] 2020-07-15 08:10:49 2020-07-15 16:33:08 Telemedici ne Visit Faculty, Jonathan Mercedes [facility] Hannah Dang [facility] 1.2.840.114 350.1.13.10 4.2.7.2.686 [id number] 107 [id number] [facility] 2020-07-15 10:30:00 2020-07-15 10:30:00 Outpatient R [facility] [id number] [facility] 2020-07-14 00:00:00 2020-07-14 00:00:00 Nurse Triage Jayde Nation [facility] 1.2.840.114 350.1.13.10 4.2.7.2.686 [id number] 2020-07-14 00:00:00 2020-07-14 00:00:00 Nurse Triage Jayde Nation [facility] 1.2.840.114 350.1.13.10 4.2.7.2.686 [id number] [facility] 2020-07-01 00:00:00 2020-07-01 00:00:00 Abstract Reyes Richards [facility] [employer] DEVELOPER [facility] & CHILD [facility] 1.2.840.114 350.1.13.10 4.2.7.2.686 [id number] 107 [id number] 2020-07-01 00:00:00 2020-07-01 00:00:00 Abstract Reyes Richards [facility] [employer] DEVELOPER [facility] CHILD [facility] 1.2.840.114 350.1.13.10 4.2.7.2.686 [id number] 107 [id number] [facility] 2020-06-28 12:40:24 2020-06-28 13:25:24 Stoker Erector Visit 1, [facility] 1.2.840.114 350.1.13.10 4.2.7.2.686 [id number] 104 [id number] 2020-06-28 12:40:24 2020-06-28 13:25:24 Stoker Erector Visit 1, [facility] Us Room [facility] 1.2.840.114 350.1.13.10 4.2.7.2.686 [id number] [facility] 2020-06-28 13:00:00 2020-06-28 13:00:00 Outpatient P [facility] [id number] [facility] 2020-06-27 13:00:22 2020-06-27 13:39:22 Routine Visit Reyes Richards [facility] [employer] DEVELOPER [facility] CHILD [facility] 1.2.840.114 350.1.13.10 4.2.7.2.686 [id number] 107 [id number] 2020-06-27 13:00:22 2020-06-27 13:39:22 Routine Visit Reyes Richards [facility] [employer] DEVELOPER [facility] & CHILD [facility] 1.2.840.114 350.1.13.10 4.2.7.2.686 [id number] 107 [id number] [facility] 2020-06-27 13:00:00 2020-06-27 13:00:00 Outpatient R REYES RICHARDS [facility] [id number] [facility] 2020-06-26 09:15:00 2020-06-26 09:15:00 Outpatient R REYES RICHARDS [facility] [id number] [facility] 2020-06-17 10:47:26 2020-06-17 11:48:07 Routine Visit Faculty, Jonathan Mercedes [facility] [employer] DEVELOPER [facility] CHILD [facility] 1..114 350.1.13.10 4.2.7.2.686 [id number] 107 [id number] 2020-06-17 10:47:26 2020-06-17 11:48:07 Routine Visit Faculty, Jonathan Mercedes Alexa Givens [facility] [employer] DEV[employer]OPER [facility] CHILD [facility] 1..114 350.1.13.10 4.2.7.2.686 [id number] 107 [id number] [facility] 2020-06-17 10:30:00 2020-06-17 10:30:00 Outpatient R [facility] [id number] [facility] 2020-06-17 00:00:00 2020-06-17 00:00:00 Orders Only Doctor Unassigned, [place] [facility] 1.114 350.1.13.10 4.2.7.2.686 [id number] [facility] 2020-06-13 09:00:00 2020-06-13 09:00:00 Outpatient R [facility] [id number] [facility] 2020-06-03 00:00:00 2020-06-03 00:00:00 Telephone Reyes Richards [facility] [employer] DEVELOPER [facility] CHILD [facility] 1..114 350.1.13.10 4.2.7.2.686 [id number] 107 [id number] [facility] 2020-05-28 13:09:30 2020-05-28 14:10:12 Initial Visit Reyes Richards [facility] [employer] DEVELOPER [facility] MATERNAL & CHILD [facility] 1.2.840.114 350.1.13.10 4.2.7.2.686 [id number] 107 [id number] [facility] 2020-05-28 13:00:00 2020-05-28 13:00:00 Outpatient R REYES RICHARDS [facility] [id number] [facility] 2020-05-28 00:00:00 2020-05-28 00:00:00 Orders Only Doctor Unassigned, [place] [facility] 1..840.114 350.1.13.10 4.2.7.2.686 [id number] [facility] 2020-05-15 00:00:00 2020-05-15 00:00:00 Telephone Reyes Richards [facility] [employer] DEVELOPER [facility] CHILD [facility] 1..840.114 350.1.13.10 4.2.7.2.686 [id number] 107 [id number] [facility] 2020-03-27 09:45:00 2020-03-27 09:45:00 Outpatient R REYES [facility] [id number] [facility] 2020-03-11 13:30:00 2020-03-11 13:30:00 Outpatient R REYES [facility] [id number] [facility] 2020-03-11 00:00:00 2020-03-11 00:00:00 Telephone Reyes Richards [facility] [employer] [facility] 1.2.840.114 350.1.13.10 4.2.7.2.686 [id number] [facility] 2020-02-19 15:54:50 2020-02-19 16:20:25 Routine Visit Reyes Richards Phu [facility] [employer] [facility] 1.20.114 350.1.13.10 4.2.7.2.686 [id number] [facility] 2020-02-19 16:00:00 2020-02-19 16:00:00 Outpatient R REYES [facility] [id number] [facility] 2020-02-13 09:00:00 2020-02-13 09:00:00 Outpatient R REYES [facility] [id number] [facility] 2020-01-19 19:18:00 2020-01-22 17:30:00 Hospital Encounter Luis EduardoRebecca [facility] 1..114 350.1.13.10 4.2.7.2.686 [id number] [facility] 2020-01-19 15:53:23 2020-01-19 16:37:17 Routine Visit Reyes Richards Phu [facility] [employer] [facility] 1..114 350.1.13.10 4.2.7.2.686 [id number] [facility] 2020-01-19 16:00:00 2020-01-19 16:00:00 Outpatient R REYES [facility] [id number] [facility] 2020-01-19 00:00:00 2020-01-19 00:00:00 Orders Only Doctor Unassigned, [place] [facility] 1..114 350.1.13.10 4.2.7.2.686 [id number] [facility] 2020-01-11 14:50:53 2020-01-11 15:22:24 Routine Visit Provider, Moop Joycelyn Howard [facility] [employer] [facility] 1.0.114 350.1.13.10 4.2.7.2.686 [id number] [facility] 2020-01-11 15:00:00 2020-01-11 15:00:00 Outpatient R [facility] [id number] [facility] 2020-01-05 14:12:11 2020-01-05 14:27:11 Routine Visit SandraReyes garcia [facility] [employer] [facility] 1.2.840.114 350.1.13.10 4.2.7.2.686 [id number] [facility] 2020-01-05 14:15:00 2020-01-05 14:15:00 Outpatient R DANIELLENANCY REYES [facility] [id number] [facility] 2020-01-01 00:00:00 2020-01-01 00:00:00 Nurse Triage Shannan Munguia [facility] 1.2.840.114 350.1.13.10 4.2.7.2.686 [id number] 019 [id number] [facility] 2020-01-01 00:00:00 2020-01-01 00:00:00 Nurse Triage Kaylene Dorsey [facility] 1.2.840.114 350.1.13.10 4.2.7.2.686 [id number] 019 [id number] [facility] 2019-12-29 00:00:00 2019-12-29 00:00:00 Telephone Reyes Richards [facility] [employer] [facility] & CHILD [facility] 1.2.840.114 350.1.13.10 4.2.7.2.686 [id number] [facility] 2019-12-28 00:00:00 2019-12-28 00:00:00 Nurse Triage Toshia Tan [facility] 1.2.840.114 350.1.13.10 4.2.7.2.686 [id number] [id number] [facility] 2019-12-20 14:30:00 2019-12-20 14:30:00 Outpatient R REYES [facility] [id number] [facility] 2019-12-20 11:43:03 2019-12-20 14:19:06 Telemedici ne Visit Reyes Richards [facility] [employer] [facility] & CHILD [facility] 1.2.840.114 350.1.13.10 4.2.7.2.686 [id number] [facility] 2019-12-14 18:31:58 2019-12-14 23:45:00 Emergency Amy Matias Vien [facility] 1.2.840.114 350.1.13.10 4.2.7.2.686 [id number] [facility] 2019-12-04 12:49:08 2019-12-04 14:24:22 Telemedici ne Visit Reyes Richards [facility] [employer] [facility] & CHILD [facility] 1.2.840.114 350.1.13.10 4.2.7.2.686 [id number] [facility] 2019-12-04 14:00:00 2019-12-04 14:00:00 Outpatient R [facility] [id number] [facility] 2019-11-24 00:00:00 2019-11-24 00:00:00 Telephone Daniellejose mradha Reyes Phu [facility] [employer] [facility] & CHILD [facility] 1.2.840.114 350.1.13.10 4.2.7.2.686 [id number] [facility] 2019-11-21 13:34:25 2019-11-21 14:28:43 Routine Visit SusieReyes Phu [facility] [employer] [facility] & CHILD [facility] 1.2.840.114 350.1.13.10 4.2.7.2.686 [id number] [facility] 2019-11-21 14:00:00 2019-11-21 14:00:00 Outpatient R REYES [facility] [id number] [facility] 2019-11-21 00:00:00 2019-11-21 00:00:00 Orders Only Doctor Unassigned, [place] [facility] 1.2.840.114 350.1.13.10 4.2.7.2.686 [id number] [facility] 2019-11-08 00:00:00 2019-11-08 00:00:00 Telephone Reyes Richards [facility] [employer] [facility] & CHILD [facility] 1.2.840.114 350.1.13.10 4.2.7.2.686 [id number] [facility] 2019-11-07 07:56:19 2019-11-07 09:14:35 Routine Visit Reyes Richards [facility] [employer] [facility] & CHILD [facility] 1.2840.114 350.1.13.10 4.2.7.2.686 [id number] [facility] 2019-11-07 08:00:00 2019-11-07 08:00:00 Outpatient R REYES [facility] [id number] [facility] 2019-11-06 14:00:00 2019-11-06 14:00:00 Outpatient R REYES [facility] [id number] [facility] 2019-11-03 00:00:00 2019-11-03 00:00:00 Telephone Reyes Richards [facility] [employer] [facility] & CHILD [facility] 1.2.840.114 350.1.13.10 4.2.7.2.686 [id number] [facility] 2019-10-25 00:00:00 2019-10-25 00:00:00 Telephone Reyes Richards [facility] [employer] [facility] & CHILD [facility] 1.2.840.114 350.1.13.10 4.2.7.2.686 [id number] [facility] 2019-10-18 14:43:00 2019-10-18 18:45:00 Hospital Encounter Sarika Fuller R[facility] 1.2.840.114 350.1.13.10 4.2.7.2.686 [id number] 083 [id number] [facility] 2019-10-18 14:43:00 2019-10-18 14:43:00 Outpatient P DANTESARIKA PATHAK [facility] TRICIA [id number] [facility] 2019-10-09 13:43:54 2019-10-09 14:44:59 Routine Visit Reyes Richards [facility] [employer] [facility] CHILD [facility] 1.2.840.114 350.1.13.10 4.2.7.2.686 [id number] [facility] 2019-10-09 13:45:00 2019-10-09 13:45:00 Outpatient R REYES [facility] [id number] [facility] 2019-10-08 00:00:00 2019-10-08 00:00:00 Nurse Triage Shannan Munguia [facility] 1.2840.114 350.1.13.10 4.2.7.2.686 [id number] [facility] 2019-09-19 00:00:00 2019-09-19 00:00:00 Abstract Reyes Richards [facility] [employer] [facility] CHILD [facility] 1.2.840.114 350.1.13.10 4.2.7.2.686 [id number] [facility] 2019-09-15 14:15:00 2019-09-15 15:34:37 Outpatient P TYLER [facility] [id number] [facility] 2019-09-11 13:57:39 2019-09-11 14:43:22 Routine Visit Reyes Richards [facility] [employer] [facility] 1.2.840.114 350.1.13.10 4.2.7.2.686 [id number] 107 [id number] [facility] 2019-09-09 08:42:00 2019-09-09 09:45:00 Hospital Encounter Swati Vang [facility] 1.2.840.114 350.1.13.10 4.2.7.2.686 [id number] [id number] [facility] 2019-09-09 00:00:00 2019-09-09 00:00:00 Nurse Triage Karina Cortes [facility] 1.2.840.114 350.1.13.10 4.2.7.2.686 [id number] [id number] [facility] 2019-08-07 16:11:15 2019-08-07 16:33:12 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, [facility] 1.2.840.114 350.1.13.10 4.2.7.2.686 [id number] [facility] 2019-07-27 18:02:33 2019-07-27 20:29:00 Emergency X CASSIDYSTEPHANIECUONG [facility] ERT [id number] [facility] 2019-07-09 04:46:46 2019-07-09 06:27:00 Emergency X DEVIN MATHEW [facility] ERT [id number] [facility] Results Test Description Test Time Test Comments Results Result Co mments Source [facility] [id number] 19:52:28* Test Item Value Reference Range Interpretation Comme nts VZV IgG antibody (test code = 26297-3) Negative Negative MILLIE (test code = MILLIE) Positive - Indicat es the patient was exposed to VZV through infection or vaccination.Negative - Indicates the patient could be susceptible to VZV infection.Equivocal - A second specimen should be sent for testing. [facility] - [place] [id number] 17:19:58* Test Item Value Reference Range Interpretation Comme [facility] Syphilis IgG/IgM (test code = 99717-8) Nonreactive Nonreactive Syphilis Serology Interpretation (test code = 00931-1) No serologic evidence of syphilis. If recent exposure is suspected, retest in 2 to 4 weeks. MILLIE (test code = MILLIE) ? [facility] CenterGlycosylated Hemoglobin (A1C)2025-03-07 09:27:17* Test Item Value Reference Range Interpretation Comme [facility] HGB A1C (test code = 4548-4) 5.1 % 4.0-5.7 MILLIE (test code = MILLIE) Reference RangesNormal: <5.7%Prediabetes: 5.7 - 6.4%Diabetes: > 6.5% Lab Interpretation (test code = 10836-7) Normal [facility] CenterHIV 1/2 AG-AB WITH [id number] 07:08:57* Test Item Value Reference Range Interpretation Comme [facility] HIV Semi-quantitative (test code = 56846-4) 0.11 Negative MILLIE (test code = MILLIE) Non-reactive for HIV-1 antigen and HIV-1/HIV-2 antibodies. ?No laboratory evidence of HIV infection. ?Repeat in 2-4 weeks if acute HIV infection is suspected. [facility] CenterHCV [id number] 05:57:26* Test Item Value Reference Range Interpretation Comme [facility] HCV Ab (test code = 90410-5) Negative HCV Semi-Quantitative (test code = 09932-5) 0.01 [facility] CenterHEPATITIS B SURFACE [id number] 05:40:02 * Test Item Value Reference Range Interpretation Comme nts HBsAg Semi-Quantitative (akbar t code = 5195-3) 0.1 Negative [facility] CenterPRENATAL WORKUP, BLOOD [id number] 05:19:00 * Test Item Value Reference Range Interpretation Comme nts ABO & RH (test code = 20) A POSITIVE IAT (test code = 1185) Negative [facility] CenterCBC WITH [id number] 04:13:03* Test Item Value Reference Range Interpretation Comme nts WBC (test code = 6690-2) 11.82 4.30-11.10 H RBC (test code = 789-8) 4.19 3.93-5.25 HGB (test code = 718-7) 11.6 g/dL 11.6-15.0 HCT (test code = 4544-3) 36.7 % 35.7-45.2 MCV (test code = 787-2) 87.6 fL 80.6-95.5 MCH (test code = 785-6) 27.7 pg 25.9-32.8 MCHC (test code = 786-4) 31.6 g/dL 31.6-35.1 RDW-SD (test code = 65822-3) 40 fL 39.0-49.9 RDW-CV (test code = 788-0) 12.4 % 12.0-15.5 PLT (test code = 777-3) 438 166-358 H MPV (test code = 54255-6) 9.6 fL 9.5-12.9 NRBC/100 WBC (test code = 0630320449) 0 0.0-10.0 NRBC x10^3 (test code = 7774158403) See_Comment [Automated messa ge] The system which generated this result transmitted reference range: 10*3/?L. The reference range was not used to interpret this result as normal/abnormal. GRAN MAT (NEUT) % (test code = 770-8) 70.8 % IMM GRAN % (test code = 4733820649) 0.5 % LYMPH % (test code = 736-9) 21.2 % MONO % (test code = 5905-5) 6.1 % EOS % (test code = 713-8) 0.9 % BASO % (test code = 706-2) 0.5 % GRAN MAT x10^3(ANC) (test code = 9158090167) 8.37 10*3/uL 1.88-7.09 H IMM GRAN x10^3 (test code = 6104082507) 0.06 10*3/uL 0.00-0.06 LYMPH x10^3 (test code = 731-0) 2.5 10*3/uL 1.32-3.29 MONO x10^3 (test code = 742-7) 0.72 10*3/uL 0.33-0.92 EOS x10^3 (test code = 711-2) 0.11 10*3/uL 0.03-0.39 BASO x10^3 (test code = 704-7) 0.06 10*3/uL 0.01-0.07 Lab Interpretation (test code = 95802-4) Abnormal [facility] CenterComp. Metabolic Panel (51821)2025-03-07 03:53:17* Test Item Value Reference Range Interpretation Comme nts NA (test code = 1815152599) 139 mmol/L 135-145 K (test code = 2534204755) 4.2 mmol/L 3.5-5.0 CL (test code = 9066972134) 107 mmol/L 98-108 CO2 TOTAL (test code = 4674835156) 19 mmol/L 23-31 L AGAP (test code = 0367189016) 13 2-16 BUN (test code = 8999676241) 7 mg/dL 7-23 GLUCOSE (test code = 9501957063) 92 mg/dL 70-110 CREATININE (test code = 2160-0) 0.55 mg/dL 0.50-1.04 TOTAL BILI (test code = 1717949642) 0.6 mg/dL 0.1-1.1 CALCIUM (test code = 6567750394) 9.5 mg/dL 8.6-10.6 T PROTEIN (test code = 8419796530) 8 g/dL 6.3-8.2 ALBUMIN (test code = 8336577832) 4.4 g/dL 3.5-5.0 ALK PHOS (test code = 8694772654) 49 U/L 34-122 ALTv (test code = 1742-6) 25 U/L 5-35 AST(SGOT) (test code = 2118022824) 21 U/L 13-40 eGFR (test code = 25646-3) 130.6 mL/min/1.73m2 CKD-EPI eGFR (2020). Assuming creatinine has been stable day-to-day for at least three months, the eGFR indicates Category G1 (>= 90 mL/min/1.73 m2) Lab Interpretation (test code = 22923-6) Abnormal [facility] CenterPOCT Urinalysis w/o Specific [id number] 14:58:00* Test Item Value Reference Range Interpretation Comme nts POCT PH U (test code = 3254) 6 mg/dl 5-8 POCT U LEUK EST (test code = 3263) Trace Negative - Negative POCT U NIT (test code = 3262) Pos Negative - Negati ve POCT U PROT (test code = 3259) Trace Negative - Negat john POCT U GLU (test code = 3256) Nml Negative - Negati ve POCT U KETONE (test code = 3258) Neg Negative - Neg ative POCT U BLD (test code = 3257) ~50 Negative - Negati ve [facility] CenterPOCT [id number] 14:56:00* Test Item Value Reference Range Interpretation Comme nts POCT PREG (test code = 1605) Positive On board controls acceptable with C Line (test code = 3574) Yes POCT PREG LOT # (test code = 3575) POCT PREG TEST DATE ( test code = 3576) [facility] CenterInsulin, [id number] 18:48:31* Test Item Value Reference Range Interpretation Comme [facility] Insulin (test code = 6757707015) 12.4 1.9-23.0 Lab Interpretation (test cod e = 99316-9) Normal [facility] CenterVitamin B12, [id number] 05:57:34* Test Item Value Reference Range Interpretation Comme [facility] VIT B12 (test code = 3572557031) 318 pg/mL 240-930 MILLIE (test code = MILLIE) Biotin has been reported to cause a positive bias, interpret results relative to patient's use of biotin. Lab Interpretation (test code = 90520-5) Normal [facility] CenterVitamin D, [id number] 21:06:31* Test Item Value Reference Range Interpretation Comme [facility] VIT D 25OH (test code = 15307-1) 39 ng/mL 25-80 MILLIE (test code = MILLIE) Deficiency: <20 ng/mLInsufficiency : 20-24 ng/mLOptimal: 25-80 ng/mL Lab Interpretation (test code = 14717-6) Normal [facility] CenterComp. Metabolic Panel (09009)2024-01-05 19:58:35* Test Item Value Reference Range Interpretation Comme nts NA (test code = 6357281996) 138 mmol/L 135-145 K (test code = 8662913766) 4.2 mmol/L 3.5-5.0 CL (test code = 0940355962) 107 mmol/L 98-108 CO2 TOTAL (test code = 5514663243) 24 mmol/L 23-31 AGAP (test code = 0398174460) 7 2-16 BUN (test code = 4091345838) 8 mg/dL 7-23 GLUCOSE (test code = 5951670390) 94 mg/dL 70-110 CREATININE (test code = 2160-0) 0.56 mg/dL 0.50-1.04 TOTAL BILI (test code = 0722748128) 0.7 mg/dL 0.1-1.1 CALCIUM (test code = 3998644898) 9.5 mg/dL 8.6-10.6 T PROTEIN (test code = 1978893106) 8.0 g/dL 6.3-8.2 ALBUMIN (test code = 1732640650) 4.4 g/dL 3.5-5.0 ALK PHOS (test code = 4221030125) 75 U/L 34-122 ALTv (test code = 1742-6) 19 U/L 5-35 AST(SGOT) (test code = 7788093598) 21 U/L 13-40 eGFR (test code = 88238-1) 130.9 mL/min/1.73m2 CKD-EPI eGFR (20 21). Assuming creatinine has been stable day-to-day for at least three months, the eGFR indicates Category G1 (>= 90 mL/min/1.73 m2) [facility] CenterGlycosylated Hemoglobin (A1C)2024-01-05 19:42:10* Test Item Value Reference Range Interpretation Comme nts HGB A1C (test code = 4548-4) 4.9 % 4.0-5.7 MILLIE (test code = MILLIE) Reference RangesNormal: <5.7%Prediabetes: 5.7 - 6.4%Diabetes: > 6.5% Lab Interpretation (test code = 83521-8) Normal [facility] with [id number] 23:00:45* Test Item Value Reference Range Interpretation [...] 32.5 g/dL 31.6-35.1 RDW-SD (test code = 81983-8) 41.0 fL 39.0-49.9 RDW-CV (test code = 788-0) 12.9 % 12.0-15.5 PLT (test code = 777-3) 304 166-358 MPV (test code = 69525-9) 10.4 fL 9.5-12.9 NRBC/100 WBC (test code = 7811458841) 0.0 0.0-10.0 NRBC x10^3 (test code = 7919811342) See_Comment [Automated message] The system which generated this result transmitted reference range: 10*3/?L. The reference range was not used to interpret this result as normal/abnormal. GRAN MAT (NEUT) % (test code = 770-8) 84.2 % IMM GRAN % (test code = 0089168703) 0.50 % LYMPH % (test code = 736-9) 8.4 % MONO % (test code = 5905-5) 6.6 % EOS % (test code = 713-8) 0.1 % BASO % (test code = 706-2) 0.2 % GRAN MAT x10^3(ANC) (test code = 4385511717) 14.96 10*3/uL 1.88-7.09 H IMM GRAN x10^3 (test code = 5393107218) 0.09 10*3/uL 0.00-0.06 H LYMPH x10^3 (test code = 731-0) 1.50 10*3/uL 1.32-3.29 MONO x10^3 (test code = 742-7) 1.18 10*3/uL 0.33-0.92 H EOS x10^3 (test code = 711-2) 0.03-0.39 L BASO x10^3 (test code = 704-7) 0.03 10*3/uL 0.01-0.07 Lab Interpretation (test code = 48911-9) Abnormal [facility] with [id number] 23:00:45* Test Item Value Reference Range Interpretation [...] 32.5 g/dL 31.6-35.1 RDW-SD (test code = 24837-6) 41.0 fL 39.0-49.9 RDW-CV (test code = 788-0) 12.9 % 12.0-15.5 PLT (test code = 777-3) 304 166-358 MPV (test code = 42728-0) 10.4 fL 9.5-12.9 NRBC/100 WBC (test code = 9557304531) 0.0 0.0-10.0 NRBC x10^3 (test code = 7201748823) See_Comment [Automated message] The system which generated this result transmitted reference range: 10*3/?L. The reference range was not used to interpret this result as normal/abnormal. GRAN MAT (NEUT) % (test code = 770-8) 84.2 % IMM GRAN % (test code = 2632548142) 0.50 % LYMPH % (test code = 736-9) 8.4 % MONO % (test code = 5905-5) 6.6 % EOS % (test code = 713-8) 0.1 % BASO % (test code = 706-2) 0.2 % GRAN MAT x10^3(ANC) (test code = 2166754897) 14.96 10*3/uL 1.88-7.09 H IMM GRAN x10^3 (test code = 1713064328) 0.09 10*3/uL 0.00-0.06 H LYMPH x10^3 (test code = 731-0) 1.50 10*3/uL 1.32-3.29 MONO x10^3 (test code = 742-7) 1.18 10*3/uL 0.33-0.92 H EOS x10^3 (test code = 711-2) 0.03-0.39 L BASO x10^3 (test code = 704-7) 0.03 10*3/uL 0.01-0.07 Lab Interpretation (test code = 51314-0) Abnormal [facility] GLUCOSE (AUTOMATED)2023-09-16 21:10:51* Test Item Value Reference Range Interpretation Comme nts POCT GLU (test code = 7838004749) 94 mg/dL 70-110 Lab Interpretation (test cod e = 37994-7) Normal [facility] GLUCOSE (AUTOMATED)2023-09-16 21:10:51* Test Item Value Reference Range Interpretation Comme nts POCT GLU (test code = 5752152908) 94 mg/dL 70-110 Lab Interpretation (test cod e = 94692-9) Normal [facility] (D) IMMUNE [id number] 17:43:00* Test Item Value Reference Range Interpretation Comme nts RHIG CANDIDATE? (test code = 5188) No- see comment Patient is not a candidate for RhIg- Patient is Rh Positive.Performed at [facility] Laboratory Services - [facility] Blood [address] [place] [address]Dwtt Free: [phone] No. [id number] [facility] (D) IMMUNE [id number] 17:43:00* Test Item Value Reference Range Interpretation Comme nts RHIG CANDIDATE? (test code = 5188) No- see comment Patient is not a candidate for RhIg- Patient is Rh Positive.Performed at [facility] Laboratory Services - [facility] Blood [address] [place] [address] 34[address]Avtv Free: [phone] No. [id number] [facility] ONLY - [place] IGG/[id number] 16:10:09* Test Item Value Reference Range Interpretation Comme [facility] Syphilis IgG/IgM (test code = 24032-9) Non-reactive Non-reactive MILLIE (test code = MILLIE) Non-reactive - No serologic evidence of T. pallidum infection. Cannot exclude incubating or early syphilis. Submit a second specimen in 2-4 weeks if syphilis is clinically suspected. Equivocal - Further testing to follow. Reactive - Further testing to follow. Lab Interpretation (test code = 98280-5) Normal [facility] ONLY - [place] IGG/[id number] 16:10:09* Test Item Value Reference Range Interpretation Comme [facility] Syphilis IgG/IgM (test code = 30367-2) Non-reactive Non-reactive MILLIE (test code = MILLIE) Non-reactive - No serologic evidence of T. pallidum infection. Cannot exclude incubating or early syphilis. Submit a second specimen in 2-4 weeks if syphilis is clinically suspected. Equivocal - Further testing to follow. Reactive - Further testing to follow. Lab Interpretation (test code = 89307-8) Normal [facility] Cord [id number] 12:46:35* Test Item Value Reference Range Interpretation Comme nts VENOUS BASE EXCESS, CORD (te st code = 7425008490) -1.1 mEq/L VENOUS PH, CORD (test code = 2032989591) 7.35 7.25-7.45 VENOUS PC02, CORD (test code = 9443758034) 46 27-49 VENOUS PO2, CORD (test code = 9826067874) 23 17-41 VENOUS BICARBONATE, CORD (te st code = 5429574380) 25 12-29 [facility] Cord [id number] 12:46:35* Test Item Value Reference Range Interpretation Comme nts VENOUS BASE EXCESS, CORD (te st code = 2496442212) -1.1 mEq/L VENOUS PH, CORD (test code = 1555348132) 7.35 7.25-7.45 VENOUS PC02, CORD (test code = 1652375570) 46 27-49 VENOUS PO2, CORD (test code = 9761930514) 23 17-41 VENOUS BICARBONATE, CORD (te st code = 7878117861) 25 12-29 [facility] [id number] 08:10:00 Bulmaro Newberry MD ? ? 09/16/2023 ?2:10 AM Central Neuraxial Block Date/Time: 09/16/2023 2:10 AM Performed by: Bulmaro Newberry MDAuthorized by: Alonso Reynolds MD ?Patient Location: OBEnd Time: 09/16/2023 2:10 AMReason for Block: OB request, Patient request, Labor analgesia, Surgical anesthesia and Post-op pain managementStaff: ?Anesthesiologist: Alonso Reynolds MD ?Resident/INFRASTRUCTURE MANAGER: Bulmaro Newberry MD ?Performed by: resident/CRNAPreanesthetic Checklist: [...] L3-L4 ?Approach: midline ? ?Technique: catheter and PATRH saline ?Guidance with: landmark technique}Epidural/Spinal [place] and/or Catheter: ?Epidural/Spinal Kit: [place] ?Needle Type: [...] Epidural expectations; PCEA explained and fall precautions given.[facility] 1/2 AG-AB WITH [id number] 03:20:38* Test Item Value Reference Range Interpretation Comme nts HIV Semi-quantitative (test code = 03114-0) 0.08 Negative MILLIE (test code = MILLIE) Non-reactive for HIV-1 antigen and HIV-1/HIV-2 antibodies. ?No laboratory evidence of HIV infection. ?Repeat in 2-4 weeks if acute HIV infection is suspected. [facility] 1/2 AG-AB WITH [id number] 03:20:38* Test Item Value Reference Range Interpretation Comme nts HIV Semi-quantitative (test code = 70590-9) 0.08 Negative MILLIE (test code = MILLIE) Non-reactive for HIV-1 antigen and HIV-1/HIV-2 antibodies. ?No laboratory evidence of HIV infection. ?Repeat in 2-4 weeks if acute HIV infection is suspected. [facility] B Surface [id number] 01:07:17 * Test Item Value Reference Range Interpretation Comme nts HBsAg Semi-Quantitative (akbar t code = 5195-3) 0.06 Negative [facility] B Surface [id number] 01:07:17 * Test Item Value Reference Range Interpretation Comme nts HBsAg Semi-Quantitative (akbar t code = 5195-3) 0.[address] [facility] with [id number] 23:48:07* Test Item Value Reference Range Interpretation [...] 32.4 g/dL 31.6-35.1 RDW-SD (test code = 90156-9) 41.1 fL 39.0-49.9 RDW-CV (test code = 788-0) 13.0 % 12.0-15.5 PLT (test code = 777-3) 352 166-358 MPV (test code = 22316-0) 11.0 fL 9.5-12.9 NRBC/100 WBC (test code = 3221827284) 0.0 0.0-10.0 NRBC x10^3 (test code = 0335975959) See_Comment [Automated messa ge] The system which generated this result transmitted reference range: 10*3/?L. The reference range was not used to interpret this result as normal/abnormal. GRAN MAT (NEUT) % (test code = 770-8) 70.8 % IMM GRAN % (test code = 6034369300) 0.40 % LYMPH % (test code = 736-9) 19.9 % MONO % (test code = 5905-5) 8.2 % EOS % (test code = 713-8) 0.5 % BASO % (test code = 706-2) 0.2 % GRAN MAT x10^3(ANC) (test code = 2831894242) 8.71 10*3/uL 1.88-7.09 H IMM GRAN x10^3 (test code = 0996248765) 0.05 10*3/uL 0.00-0.06 LYMPH x10^3 (test code = 731-0) 2.45 10*3/uL 1.32-3.29 MONO x10^3 (test code = 742-7) 1.01 10*3/uL 0.33-0.92 H EOS x10^3 (test code = 711-2) 0.06 10*3/uL 0.03-0.39 BASO x10^3 (test code = 704-7) 0.01-0.07 Lab Interpretation (test code = 07995-6) Abnormal [facility] with [id number] 23:48:07* Test Item Value Reference Range Interpretation [...] 32.4 g/dL 31.6-35.1 RDW-SD (test code = 97481-5) 41.1 fL 39.0-49.9 RDW-CV (test code = 788-0) 13.0 % 12.0-15.5 PLT (test code = 777-3) 352 166-358 MPV (test code = 00556-3) 11.0 fL 9.5-12.9 NRBC/100 WBC (test code = 7347822791) 0.0 0.0-10.0 NRBC x10^3 (test code = 8041901089) See_Comment [Automated messa ge] The system which generated this result transmitted reference range: 10*3/?L. The reference range was not used to interpret this result as normal/abnormal. GRAN MAT (NEUT) % (test code = 770-8) 70.8 % IMM GRAN % (test code = 1056129311) 0.40 % LYMPH % (test code = 736-9) 19.9 % MONO % (test code = 5905-5) 8.2 % EOS % (test code = 713-8) 0.5 % BASO % (test code = 706-2) 0.2 % GRAN MAT x10^3(ANC) (test code = 8457022513) 8.71 10*3/uL 1.88-7.09 H IMM GRAN x10^3 (test code = 0815477758) 0.05 10*3/uL 0.00-0.06 LYMPH x10^3 (test code = 731-0) 2.45 10*3/uL 1.32-3.29 MONO x10^3 (test code = 742-7) 1.01 10*3/uL 0.33-0.92 H EOS x10^3 (test code = 711-2) 0.06 10*3/uL 0.03-0.39 BASO x10^3 (test code = 704-7) 0.01-0.07 Lab Interpretation (test code = 91889-8) [facility] [id number] 23:36:00 * Test Item Value Reference Range Interpretation Comme nts ABO & RH (test code = 20) A POSITIVE IAT (test code = 1185) Negative [facility] [id number] 23:36:00 * Test Item Value Reference Range Interpretation Comme nts ABO & RH (test code = 20) A POSITIVE IAT (test code = 1185) Negative [facility] W SPECIFIC [id number] 16:47:00* Test Item Value Reference Range Interpretation [...] POCT U APPEAR (test code = 3267) [facility] [id number] 23:39:27* Test Item Value Reference Range Interpretation Comme nts LDH (test code = 8248181614) 136 U/L 120-246 Lab Interpretation (test cod e = 90296-0) Normal [facility] Center[facility] Acid [id number] 23:38:06* Test Item Value Reference Range Interpretation Comme nts URIC ACID (test code = 0530092588) 4.4 mg/dL 2.9-6.0 Lab Interpretation (test cod e = 03768-2) Normal [facility] CenterSerum [id number] 23:38:06* Test Item Value Reference Range Interpretation Comme nts CREATININE (test code = 6526742521) 0.35 mg/dL 0.50-1.04 L eGFR (test code = 14440-4) 146.6 mL/min/1.73m2 CKD-EPI eGFR (2020). Assuming creatinine has been stable day-to-day for at least three months, the eGFR indicates Category G1 (>= 90 mL/min/1.73 m2) Lab Interpretation (test code = 58133-4) Abnormal [facility] Center[facility] (Asparate Amino Transfer)2023-09-10 23:38:06* Test Item Value Reference Range Interpretation Comme nts AST(SGOT) (test code = 2525221144) 17 U/L 13-40 Lab Interpretation (test cod e = 63883-0) Normal [facility] CenterAlanine Amino Transferase (SGPT)2023-09-10 23:38:05* Test Item Value Reference Range Interpretation Comme nts ALTv (test code = 1742-6) 14 U/L 5-35 Lab Interpretation (test cod e = 27248-4) Normal [facility] CenterCBC with [id number] 23:30:05* Test Item Value Reference Range Interpretation [...] 32.0 g/dL 31.6-35.1 RDW-SD (test code = 29932-7) 40.6 fL 39.0-49.9 RDW-CV (test code = 788-0) 12.8 % 12.0-15.5 PLT (test code = 777-3) 339 166-358 MPV (test code = 72490-9) 10.9 fL 9.5-12.9 NRBC/100 WBC (test code = 6746261680) 0.0 0.0-10.0 NRBC x10^3 (test code = 1096108123) See_Comment [Automated messa ge] The system which generated this result transmitted reference range: 10*3/?L. The reference range was not used to interpret this result as normal/abnormal. GRAN MAT (NEUT) % (test code = 770-8) 73.2 % IMM GRAN % (test code = 2708100084) 0.50 % LYMPH % (test code = 736-9) 17.6 % MONO % (test code = 5905-5) 8.0 % EOS % (test code = 713-8) 0.5 % BASO % (test code = 706-2) 0.2 % GRAN MAT x10^3(ANC) (test code = 3958352594) 9.48 10*3/uL 1.88-7.09 H IMM GRAN x10^3 (test code = 3691759304) 0.06 10*3/uL 0.00-0.06 LYMPH x10^3 (test code = 731-0) 2.28 10*3/uL 1.32-3.29 MONO x10^3 (test code = 742-7) 1.04 10*3/uL 0.33-0.92 H EOS x10^3 (test code = 711-2) 0.07 10*3/uL 0.03-0.39 BASO x10^3 (test code = 704-7) 0.01-0.07 Lab Interpretation (test code = 23657-9) Abnormal [facility] URINALYSIS W SPECIFIC [id number] 17:39:00* Test Item Value Reference Range Interpretation [...] U APPEAR (test code = 3267) . [facility] URINALYSIS W SPECIFIC [id number] 17:39:00* Test Item Value Reference Range Interpretation [...] U APPEAR (test code = 3267) . [facility] URINALYSIS W SPECIFIC [id number] 21:56:00* Test Item Value Reference Range Interpretation [...] U APPEAR (test code = 3267) . [facility] URINALYSIS W SPECIFIC [id number] 20:28:00* Test Item Value Reference Range Interpretation [...] POCT U APPEAR (test code = 3267) [facility] URINALYSIS W SPECIFIC [id number] 20:28:00* Test Item Value Reference Range Interpretation [...] POCT U APPEAR (test code = 3267) [facility] URINALYSIS W SPECIFIC [id number] 20:28:00* Test Item Value Reference Range Interpretation [...] POCT U APPEAR (test code = 3267) [facility] URINALYSIS W SPECIFIC [id number] 20:07:00* Test Item Value Reference Range Interpretation [...] U APPEAR (test code = 3267) . [facility] URINALYSIS W SPECIFIC [id number] 16:25:00* Test Item Value Reference Range Interpretation [...] U APPEAR (test code = 3267) . [facility] URINALYSIS W SPECIFIC [id number] 21:57:00* Test Item Value Reference Range Interpretation [...] U APPEAR (test code = 3267) .. [facility] URINALYSIS W SPECIFIC [id number] 21:57:00* Test Item Value Reference Range Interpretation [...] U APPEAR (test code = 3267) .. [facility] URINALYSIS W SPECIFIC [id number] 22:40:00* Test Item Value Reference Range Interpretation [...] U APPEAR (test code = 3267) . [facility] URINALYSIS W SPECIFIC [id number] 22:39:00* Test Item Value Reference Range Interpretation [...] U APPEAR (test code = 3267) . [facility] URINALYSIS W SPECIFIC [id number] 20:30:00* Test Item Value Reference Range Interpretation [...] POCT U APPEAR (test code = 3267) [facility] URINALYSIS W SPECIFIC [id number] 19:47:00* Test Item Value Reference Range Interpretation [...] code = 3261) . Negative - Negat ojhn POCT U BLD (test code = 3257) Trace Negative -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 vaginal discharge. OB is [place]. Denies cramping or vaginal pressure. . Previous vaginal births. Hx of preeclampsia with both previous pregnancies. ROOM OPERATOR Amber Medel RN [facility] 2023-08-02 16:39:00 Regarding: light headed, nausea, swollen, blurry heart racing, feel like I'm burning up, no fever / , headache ----- Message from Micaela Carlisle sent at 08/02/2023 4:39 PM PACK ROOM OPERATOR ----- light headed "feel gonna pass out", nausea, feet swollen, blurry vision, and heart racing, "feel like I'm burning up, no fever" x this morning / , headache x 3 days ROOM OPERATOR Toshia Tan RN [facility] 2023-08-02 16:39:00 Access Center Moira Molina [...] to the triager Protocols used: Dizziness - [id number] LITZY Issa, RN [facility] Access Center Triage Nurse [facility] 2023-04-22 14:33:38 Formatting of this n ote might be different from the original. Pt notified rx has been sent to pharmacy. Medication instructions provided. Pt verbalized understanding. HOWARD BORREGO RN 04/22/2023 2:34 PM Howard Borrego RN [facility] 2023-04-22 11:33:02 Formatting of this n ote might be different from the original. Attempt#2. Called no answer. VM not set up. HOWARD BORREGO RN 04/22/2023 11:33 AM [facility] 2023-04-22 07:52:55 Formatting of this n ote might be different from the original. Attempted to call patient, no answer, no vm setup. [facility] 2023-04-22 07:48:47 Formatting of this n ote might be different from the original. Diflucan erx sent [facility] 2023-04-19 13:01:08 Formatting of this n ote [...] ZULEYMA Gtz RN 04/19/2023 1:01 PM' [facility] 2023-04-19 12:53:27 Formatting of this n ote might be different from the original. Please call patient and let her know I erx keflex for UTI. [facility] 2023-03-26 14:44:12 Formatting of this n ote might be different from the original. Patient stated her last BM was Wednesday, stated she normally goes everyday. Referred to safe medication list, verbalized understanding. [facility] 2023-03-26 13:12:38 Formatting of this n ote might be different from the original. Moira Molina is a 23 year old female Pt is calling because she is 12weeks and wants to know what she can take otc for constipation and abdomen pain x for a few weeks. Please contact pt at [phone]. T Joyce Arthur [facility] 2023-03-25 07:43:26 Formatting of this n ote might be different from the original. Patient states she tried the promethazine as prescribed and it caused her to vomit more. Patient notified of Zofran refill. Pt verbalized understanding. HOWARD BORREGO RN 03/25/2023 7:45 AM Howard Borrego RN [facility] 2023-03-24 22:09:25 Formatting of this n ote might be different from the original. I sent refill erx for zofran, Please ask if she is taking promethazine which I prescribed on 03/11 due to zofran not working per patient. [facility] 2023-03-24 13:34:30 Formatting of this n ote might be different from the original. Moira Molina is a 23 year old female 12 wk 0 days Pt needs refill on ZOFRAN(ondansetron 4 mg) due to nausea and can not keep food down. 2nd request. Please call pt at [phone] (home) [facility]/pharmacy #[id number] AT [facility] Lyly Cool [facility] 2023-03-23 12:06:26 Formatting of this n ote might be different from the original. Moira Molina is a 23 year old female Patient called to ask for refill of Zofran and what over the counter medication she can take for constipation. Please contacat pt at [phone] (home) [facility] 2023-03-16 09:02:20 Formatting of this n ote might be different from the original. Patient informed of results and new orders, verbalized understanding. T [facility] 2023-03-15 10:10:28 Formatting of this n ote might be different from the original. Moira Molina is a 23 year old female Attempted to call patient, no answer. Could not leave voicemail, no voicemail available. Will attempt at a later time. [facility] 2023-03-15 08:45:08 Formatting of this n ote might be different from the original. Please call patient and let her know I erx keflex to pharmacy for GBS UTI. T [facility] 2023-03-09 10:22:57 Formatting of this n [...] provider at her appt on 03/11/2023. [facility] 2023-03-05 08:22:42 Formatting of this n ote might be different from the original. Called pt, no answer. No vm box set up. Zuleyma Gtz RN 03/05/23 8:23 AM [facility] 2023-03-04 16:50:50 Formatting of this n ote might be different from the original. Moira Molina is a 22 year old female Patient requesting to speak with provider for ultrasound results. Please call [phone] (home) Yessenia Farrell [facility] 2023-03-02 13:08:30 Formatting of this n ote might be different from the original. See other encounter. [facility] 2023-03-02 13:06:03 Formatting of this n ote might be different from the original. Patient informed refill was sent to pharmacy. Patient is asking for nausea medication to be sent to pharmacy. [facility] 2023-03-02 13:01:17 Formatting of this n ote might be different from the original. Moira Molina is a 22 year old female Pt is calling requesting something for nausea and vomiting sent to her pharmacy. [facility]/pharmacy #[id number] - [place], [place] - [address] [place] [address] Joyce Arthur [facility] 2023-03-02 12:58:41 Formatting of this n ote might be different from the original. Refill sent T [facility] 2023-03-01 20:32:34 Formatting of this n [...] to pt's pharmacy. Provider aware pt prefers [facility] Discussed Tylenol to help with pain and/or fever Pt verbalized understanding of instructions,pt encouraged to follow up with pcp and or/OBGYN Advised to seek medical attention for new/prolonged/worsening of symptoms, No adverse reaction to meds given in ER noted upon discharge Awake, alert oriented, resp reg unlabored, skin w/d, pt leaving in no apparent distress, Kiersten Amaya RN [facility] 2023-03-01 19:09:42 Formatting of this n [...] is 8 weeks preg. Dahlia Davis RN [facility] 2023-03-01 18:57:00 Formatting of this n ote is different from the original. 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 Physical Exam: ED Triage Vitals [03/01/23 191] Weight 99.8 kg (220 lb) Actual or [...] Script for zoloft and zofran sent to [facility]. discharged Problems Addressed: Dizziness: acute illness [...] Electronically signed by: Karen Colon DO 03/01/232020 [facility] 2023-03-01 17:41:38 Formatting of this n ote might be different from the original. Moira Molina is a 22 year old female Pt is calling asking if something can be sent to her primary doctor so she can be prescribed Zoloft. Stating she is having withdrawals, not being able to stand and eat. Please advise Larry Hampton [facility] 2023-02-27 15:06:00 Formatting of this n [...] she can take Benadryl Fermin Pathak RN [facility] 2023-02-27 15:06:00 Formatting of this n ote might be different from the original. Moira Molina is a 22 year old female Patient calling seeking advice on taking Benadryl while . Advised that Benadryl has been determined to be a safe medication while Fermin MCGHEE, RN [facility] Access Center Reason for Disposition Caller has medication question only, adult not sick, and triager answers question Protocols used: Medication Question [id number] [facility] 2023-02-27 15:06:00 Formatting of this n ote might be different from the original. Noted. [facility]
[2025-03-14] MEDS ORDERED: ONDANSETRON 4 MG/2 ML VIAL ONE ×2 (16:59→17:48)
[2025-03-14] MEDS ORDERED: NA CHLORIDE 0.9% 1,000 ML ONE (17:00)
[2025-03-14 17:10] LABS: Absolute Lymphocytes (CBC) 2.5 K/uL (0.7-4.9); Hematocrit 35.1 % (36.0-45.0); Hemoglobin 11.6 g/dL (12.0-15.0); MCH 27.2 pg (27.0-35.0); MCHC 33.1 g/dL (32.0-36.0); MCV 82.3 fL (80-100); MPV 7.4 fL (7.6-11.3); Nucleated RBC Absolute Count 0.0 (0-0); Nucleated Red Blood Cells % 0.0 % (0-0); RBC Red Blood Cell Count 4.27 M/uL (3.86-4.86); White Blood Count 16.90 thou/uL (4.3-10.9)
--- NOTE | 2025-03-14 17:28 | ER ---
Nurse's Notes [facility] Name: Urvashi Molina Age: 25 yrs Sex: Female : 2000 Arrival Date: 03/14/2025 Time: 16:39 Bed 12 Private MD: Diagnosis: Other vomiting complicating ;Less than 8 weeks gestation of Presentation: 03/14 16:49 Chief complaint: Patient states: 7 weeks . Unable to keep food or fluids down me1 today. Coronavirus screen: Vaccine status: Patient reports being unvaccinated. Ebola Screen: No symptoms or risks identified at this time. Initial Sepsis Screen: Does the patient meet any 2 criteria? No. Patient's initial sepsis screen is negative. Does the patient have a suspected source of infection? No. Patient's initial sepsis screen is negative. Risk Assessment: Do you want to hurt yourself or someone else? Patient reports no desire to harm self or others. Onset of symptoms is unknown. 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 - Infectious Disease History:: Denies. - Social history:: Smoking status: Patient denies any tobacco usage or history of. Screenin:05 [facility] ED Fall Risk Assessment (Adult) History of falling in the last 3 months, ap3 including since admission No falls in past 3 months (0 pts) Confusion or Disorientation No (0 pts) Intoxicated or Sedated No (0 pts) Impaired Gait No (0 pts) Mobility Assist Device Used No (0 pt) Altered Elimination No (0 pt) Score/Fall Risk Level 0 - 2 = Low Risk Oriented to surroundings, Maintained a safe environment, Educated pt \T\ family on fall prevention, incl call for assistance when getting out of bed, Assessed \T\ reinforced patient's understanding of fall precautions, Hourly rounding (assess needs \T\ fall precautionary measures) done, Used ambulatory aids as needed (educated on \T\ assisted with). Abuse screen: Denies threats or abuse. Nutritional screening: No deficits noted. Tuberculosis screening: No symptoms or risk factors identified. Assessment: 17:04 General: Appears in no apparent distress. Behavior is calm, cooperative, appropriate ap3 for age. Pain: Denies pain. Neuro: Level of Consciousness is awake, alert, obeys commands, Oriented to person, place, time, situation, Appropriate for age. Cardiovascular: Patient's skin is warm and dry. Respiratory: Airway is patent Respiratory effort is even, unlabored, Respiratory pattern is regular, symmetrical. GI: Abdomen is non-distended, Reports nausea, vomiting. 17:58 General: Discharge delayed for IV fluids to complete. me1 Vital Signs: 16:49 BP 115 / 75; Pulse 84; Resp 16; Temp 98.1; Pulse Ox 100% ; Weight 105.23 kg; Height 5 me1 ft. 6 in. ; Pain 0/10; 17:58 BP 118 / 71; Pulse 80; Resp 15; Temp 98; Pulse Ox 99% ; me1 16:49 Body Mass Index 37.45 (105.23 kg, 167.64 cm) me1 16:49 Pain Scale: Adult me1 ED Course: 16:42 Patient arrived in ED. al6 16:46 Pedrito Malloy NP is PHCP. cr8 16:46 Fawad Haley MD is Attending Physician. cr8 16:52 Triage completed. me1 16:52 Arm band placed on Patient placed in an exam room. me1 17:04 Initial lab(s) drawn, by ut, sent to lab. Inserted saline lock: 22 gauge in right ap3 antecubital area, using aseptic technique. Blood collected. Flushed with 10 mL NS. 17:05 Patient has correct armband on for positive identification. Bed in low position. Call ap3 light in reach. Side rails up X 1. Door closed. Noise minimized. 18:26 Provided Education on: discharge instructions. ap3 18:26 No provider procedures requiring assistance completed. IV discontinued, intact, ap3 bleeding controlled, No redness/swelling at site. Pressure dressing applied. Administered Medications: 17:10 Drug: NS 0.9% IV 1000 ml IV at 1000 ml once; to be given as a bolus over 60 minutes me1 Route: IV; Rate: 1000 ml; Site: right antecubital; 18:26 Follow up: IV Status: Completed infusion; IV Intake: 1000ml ap3 17:10 Drug: Ondansetron IVP 4 mg IVP once; over 2 minutes Route: IVP; Site: right antecubital;me1 17:58 Follow up: Response: No adverse reaction; Nausea is decreased me1 17:57 Drug: Ondansetron IVP 4 mg IVP once; over 2 minutes Route: IVP; Site: right antecubital;me1 18:26 Follow up: Response: No adverse reaction; Nausea is decreased ap3 Medication: 17:05 VIS not applicable for this client. ap3 Intake: 18:26 IV: 1000ml; Total: 1000ml. ap3 Outcome: 17:28 Discharge ordered by MD. owens 18:26 Discharged to home ambulatory, ap3 18:26 Condition: good 18:26 Discharge instructions given to patient, Instructed on discharge instructions, follow up and referral plans. medication usage, Demonstrated understanding of instructions, follow-up care, medications, Prescriptions given X 1, 18:27 Patient left the ED. ap3 Signatures: Kiersten Avery RN RN ap3 Adela Huang RN RN me1 Natividad Gomes al6 Pedrito Malloy NP [employer] cr8
--- NOTE | 2025-03-14 17:28 | EDPHYS ---
Physician Documentation [facility] Name: Urvashi Mloina Age: 25 yrs Sex: Female : 2000 Arrival Date: 03/14/2025 Time: 16:39 Bed 12 Private MD: ED Physician Fawad Haley HPI: 03/14 16:58 This 25 yrs old Female presents to ER via Ambulatory with complaints of cr8 Vomiting. 16:58 Patient is a 25-year-old female that reports she is 7 weeks comes emergency cr8 room complaining of nausea and vomiting for the last several days. Denies any abdominal pain chest pain dyspnea. Denies vaginal bleeding or discharge. Reports she has vomited about 15 times today. Reports earlier she felt weak in the shower. She denies syncope. At this time she is eating crackers and texting on her phone. She is in no acute distress.. 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 - Infectious Disease History:: Denies. - Social history:: Smoking status: Patient denies any tobacco usage or history of. ROS: 16:58 Constitutional: as per HPI cr8 Exam: 16:58 Constitutional: This is a well developed, well nourished patient who is awake, alert, cr8 and in no acute distress. ENT: Mucous membranes moist. Cardiovascular: Regular rate and rhythm with a normal S1 and S2. No gallops, murmurs, or rubs. Abdomen/GI: Soft, non-tender, with normal bowel sounds. No distension. No guarding or rebound. Skin: Warm, dry with normal turgor. Normal color with no rashes, no lesions, and no evidence of cellulitis. MS/ Extremity: Pulses equal, no cyanosis. Neurovascular intact. Full, normal range of motion. Neuro: Awake and alert, GCS 15, oriented to person, place, time, and situation. Cranial nerves II-XII grossly intact. Motor strength 5/5 in all extremities. Sensory grossly intact. 17:36 Special observations: the patient tolerates PO fluids, tolerates food, cr8 17:57 Special observations: the patient tolerates PO fluids, tolerates food, Has had no cr8 vomiting while in the emergency room, Vital Signs: 16:49 BP 115 / 75; Pulse 84; Resp 16; Temp 98.1; Pulse Ox 100% ; Weight 105.23 kg; Height 5 me1 ft. 6 in. ; Pain 0/10; 17:58 BP 118 / 71; Pulse 80; Resp 15; Temp 98; Pulse Ox 99% ; me1 16:49 Body Mass Index 37.45 (105.23 kg, 167.64 cm) me1 16:49 Pain Scale: Adult me1 MDM: 16:49 Medical Screening Exam initiated cr8 17:26 Differential diagnosis: viral gastroenteritis, gastroenteritis. Response to treatment: cr8 the patient's symptoms have resolved after treatment. ED course: Patient BMP with normal electrolytes and no sign of dehydration causing prerenal ASH. Low suspicion for gastric or esophageal dysmotility as cause_. Patient with no chest pain. Based on history, exam, and work up do not suspect pancreatitis, appendicitis, biliary pathology, or other emergent problem (no abdominal pain on exam). Consider doing ultrasound but she has no abdominal pain vaginal bleeding. Consider ectopic but again she has no abdominal pain on exam palpation. She has no vaginal bleeding so do not suspect this. This is likely related to vomiting that is -induced. She was given a liter of fluid 2 doses of Zofran. Patient given zofran and tolerated PO here. Patient to be discharged with zofran and to follow up with PMD.. 17:57 Data reviewed: vital signs, nurses notes, lab test result(s), CBC, electrolytes. cr8 03/14 16:55 Order name: CBC with Diff; Complete Time: 17:21 cr8 03/14 16:55 Order name: Basic Metabolic Panel; Complete Time: 17:37 cr8 03/14 16:55 Order name: IV Saline Lock; Complete Time: 17:06 cr8 03/14 16:55 Order name: Labs collected and sent; Complete Time: 17:06 cr8 Administered Medications: 17:10 Drug: NS 0.9% IV 1000 ml IV at 1000 ml once; to be given as a bolus over 60 minutes me1 Route: IV; Rate: 1000 ml; Site: right antecubital; 18:26 Follow up: IV Status: Completed infusion; IV Intake: 1000ml ap3 17:10 Drug: Ondansetron IVP 4 mg IVP once; over 2 minutes Route: IVP; Site: right antecubital;me1 17:58 Follow up: Response: No adverse reaction; Nausea is decreased me1 17:57 Drug: Ondansetron IVP 4 mg IVP once; over 2 minutes Route: IVP; Site: right antecubital;me1 18:26 Follow up: Response: No adverse reaction; Nausea is decreased ap3 Disposition: 17:57 Chart complete. cr8 Disposition Summary: 03/14/25 17:28 Discharge Ordered Notes: Location: Home cr8 Condition: Stable cr8 Diagnosis - Other vomiting complicating cr8 - Less than 8 weeks gestation of cr8 Followup: cr8 - With: Private Physician - When: 2 - 3 days - Reason: Continuance of care, Re-evaluation by your physician Followup: cr8 - With: Emergency Department - When: As needed - Reason: Trouble breathing, Worsening of condition, Recheck today's complaints Discharge Instructions: - Discharge Summary Sheet cr8 - Hyperemesis Gravidarum cr8 - Nausea and Vomiting, Adult cr8 Forms: - Medication Reconciliation Form cr8 - Patient Portal Instructions cr8 - Leadership Thank You Letter cr8 Prescriptions: - ondansetron 8 mg Oral Tablet,disintegrating - take 1 tablet ORAL route every 8 hours; 15 tablet; Refills: 0, Product cr8 Selection Permitted Signatures: Dispatcher [employer] EDAZ Adela Huang RN RN me1 Pedrito Malloy NP X RAY NURSE cr8 Kiersten Avery RN ap3 Corrections: (The following items were deleted from the chart) 17:59 17:26 ED course: Patient BMP with normal electrolytes and no sign of dehydration cr8 causing prerenal ASH. Low suspicion for gastric or esophageal dysmotility as cause_. Patient with no chest pain, unremarkable EKG so low suspicion for ACS. Based on history, exam, and work up low suspicion for pancreatitis, appendicitis, biliary pathology, or other emergent problem. Patient given zofran and tolerated PO here. Patient to be discharged with zofran and to follow up with PMD.. cr8
[2025-03-14 17:34] LABS: Anion Gap 11.4 mEq/L (5.0-15.0); BUN Blood Urea Nitrogen 7.0 mg/dL (7-18); Glucose Level 103.0 mg/dL (74-106); Potassium 3.4 mEq/L (3.5-5.1)
[2025-03-14 18:31] VITALS: BP 118/71; TEMP 98; O2SAT 99
== END 2025-03-14 18:27 | disposition home or self-care (01) ==
LOC: ER 16:39
DX: O21.8 Other vomiting complicating pregnancy (principal); Z3A.01 Less than 8 weeks gestation of pregnancy
CPT/HCPCS: 36415; 80048; 85025; 96361; 96374; 99284; J2405; J7030

== ENCOUNTER 2025-03-25 14:12 | Emergency (ER) | payer OTHER ==
--- OUTSIDE RECORDS SUMMARY | 2025-03-25 14:35 | XMS REPORT | Continuity of Care Document ---
Author Name Unknown Address [address] [place] [address] [facility] [place] Address [address] [place] [address] Care Team Providers Care Precision Dancer Name Role Phone Catalina Lacy Primary Care Physician [phone] ZOE GOODMAN Attending Clinician UnavailReyes Forrester Attending Clinician + Zoe Goodman CNM Attending Clinician [phone] Catalina Lacy Attending Clinician [phone] JILLIAN CRUZ Attending Clinician Unavailable Jama Ramos Attending Clinician [phone] Unknown, Attending Attending Clinician Unavailab JAMA Wing Attending Clinician Unavailable Blaire Tapia RN Attending Clinician UnavailCATALINA Zheng Attending Clinician Unavailable Reyes Hampton Attending Clinician + Monty Stringer Attending Clinician [phone] Unknown, Attending Attending Clinician UnavailMONTY Ceja Attending Clinician Unavailable Catalina Lacy Attending Clinician [phone] Doctor Unassigned, Jenks Attending Clinician U navailable Lab, Ang - Db Attending Clinician Unavailable CAPRICE STOVER Attending Clinician Unavailable Caprice Cruz Attending Clinician [phone] Zoe Goodman CNM Attending Clinician [phone] REYES RICHARDS Attending Clinician Unavail able JANETTE CLAY Attending Clinician Unavailable [facility]ending [facility]ician Unava ilcristy Smith RN, Alma Delia Tinsley Attending Clinician Unavailab EMI Richey Attending Clinician Unavailable Adrien RIVERA, Emi Attending Clinician [phone] Joe RIVERA, Bharti Attending Clinician [phone] Bulmaro Newberry MD Attending Clinician [phone] Rohith Choudhury Attending Clinician [phone] SHANNAN VIRK Attending Clinician Unavailable Risk, Cbd-Tocvq-Gv/High Attending Clinician Unav ailable Sully Shannan MCGHEE Attending Clinician [phone] HANNAH DANG Attending Clinician Unavailable HANNAH DANG Attending Clinician Unavailable Hannah Dang MD Attending Clinician [phone] Avril PORTILLO, Velia Martinez Attending Clinician Unavailable Victorino PORTILLO, Lorena Attending Clinician Unavailabl e Ultrasound, [facility] Attending Clinician Unavaila BETTIE Ty Attending Clinician UnaBETTIE Goins Attending Clinician Toshia Kelly RN Attending Clinician Unavailabl brandie Arceo MD, Jose Attending Clinician [phone] Jayde Lopez RN Attending Clinician Hannah vailable [facility] Unavailable Alexa Watkins MD Attending Clinician [phone] ALEXA WATKINS Attending Clinician Unavailable ALEXA WATKINS Attending Clinician Unavailable 4, [facility] Attending Clinician Unavaila KAREN Hernández Attending Clinician Unavailab Karen Monroe DO Attending Clinician + [phone] Lawson PORTILLO, Fermin Unger Attending Clinician Unavailabl KAYLENE Wiggins Attending Clinician Unavailable Johnston HEAD CHARGER, Kaylene Attending Clinician [phone] JOE GLORIA Attending Clinician Unavailable Mari HEAD CHARGER, Anum Attending Clinician +[phone] ANUM GUERRA Attending Clinician Unavailsommer diego Provider, [facility] Attending Clinician Unavailable CHRISTINE PENA Attending Clinician Unavailable Green HEAD CHARGER, Christine Attending Clinician [phone] Kena HEAD CHARGER, Britney Pedro Attending Clinician + [phone] Omaghomi HEAD CHARGER, Omayemi Attending Clinician +[phone] VINCENT HERNANDEZ Attending Clinician Unavailab louisa Hernandez HEAD CHARGER, Vincent Unger Attending Clinician + [phone] BRUCE CALLEJAS Attending Clinician Unavailable Trimester, [facility] Res-1st Attending Clinician Unavailable Bruec Callejas MD Attending Clinician +[phone] EUN SANTOS Attending Clinician Unavailable Eun Santos MD Attending Clinician + [phone] JAKE KOCH III Attending Clinician Unavailabl e HERMELINDO MATIAS Attending Clinician Unavailabl e Josee Raymond Attending Clinician + [phone] Sarika Fuller MD Attending Clinician [phone] NIMA, SENDIL K.H. Attending Clinician Unavaila mansi Wilson RN, Eloisa Lincoln Attending Clinician Unavailab louisa Walton, Adc [facility] P[facility] I Attending Clinician Unavailab Rashel Lizama MD Attending Clinician + Shae Cullen RN Attending Clinician Unavailable Nima RIVERA, Sendil K.H. Attending Clinician + [phone] Gretchen Chavez MD, Tyler Attending Clinician + Provider, [facility] Attending Clinician Un available Shay MI, Cristian Attending Clinician [phone] CRISTIAN DAY Attending Clinician Unavailable 2, [facility] Attending Clinician Unavailsalazar alexander Faculty, [facility] Attending Clinician Ran Smiley MD Attending Clinician [phone] Lab, [facility] Attending Clinician Unavailable 1, [facility] Attending Clinician Unavailsalazar Ocasio HEAD CHARGER, Aleyda Attending Clinician [phone] Rebecca Hoff MD Attending Clinician + Provider, [facility] Tem Attending Clinician Hannah Joycelyn Benavides Attending Clinician +- [phone] Ezra PORTILLO, Shannan Watson Attending Clinician Unavailsalazar Dorsey RN, Kaylene Arroyo Attending Clinician Unavaila Amy Aguero DO Attending Clinician +[phone] Taj RIVEAR, Swati Gonzalez Attending Clinician +[phone] SARIKA FULLER Attending Clinician Unavailable TYLER MALDONADO Attending Clinician Unagraham Cortes RN, Karina Martinez Attending Clinician Unavail able CUONG ZAPATA Attending Clinician Unavailable DEVIN MATHEW Attending Clinician Unavailable HANNAH DANG Admitting Clinician Unavailable SARIKA FULLER Admitting Clinician Unavailable EMI JURADO Admitting Clinician Unavailable Adrien RIVERA, Emi Admitting Clinician +[phone] Hannah Dang MD Admitting Clinician +[phone] BETTIE GONZALEZ Admitting Clinician UnaEUN Ruiz Admitting Clinician Unavailable Sarika Fuller MD Admitting Clinician +[phone] Rebecca Hoff MD Admitting Clinician + Swati Vang MD Admitting Clinician [phone] CUONG ZAPATA Admitting Clinician Unavailable Payers Payer Name Policy Type Policy Number Effective Date Expirati on Date Source [facility] [id number] 2019 00:00:00 ENTRUST [id number] 2019 00:00:00 Problems Condition Name Condition Details Condition Category Status Onset Date Resolution Date Last Treatment Date Treating Clinician Comments Source Rubella non-immune status, antepartum Rubella non-immune status, antepartum Disease Active 03-07 00:00: 00 [facility] Previous delivery affecting , antepartum Previous delivery affecting , antepartum Disease Active 0 03-06 00:00: 00 [facility] Tubal ligation status Tubal ligation status Disease Active 03-06 00:00: 00 [facility] Anxiety and depression Anxiety and depression Disease Active 01-04 00:00: 00 [facility] Anxiety and depression during Anxiety and depression during Disease Active 01-04 00:00: 00 [facility] related nausea, antepartum related nausea, antepartum Disease Active 0 7 00:00: 00 [facility] Declined flu vaccine Declined flu vaccine Disease Active 2019-08 0 00:00: 00 [facility] History of gestationa l hypertensi on History of gestationa l hypertensi on Disease Active 2019-08 0- 00:00: 00 [facility] Anxiety Anxiety Disease Active 2019-08 0 00:00: 00 [facility] Obesity affecting Obesity affecting Disease Active 2- 00:00: 00 [facility] Obesity affecting Obesity affecting Disease Active 2018-08 0- 00:00: 00 [facility] Leukocytos is, unspecifie d type Leukocytos is, unspecifie d type Active Problem 09/07/2018 eCW: [facility] Problem Active 2018-09-07 05:10:56 Elisa Seals Lower abdominal pain Lower abdominal pain Active Diagnosis 08/30/2018 eCW: [facility] Diagnosis Active 2018-08-30 05:15:14 Elisa Seals Encounter for screening Encounter for screening Active Diagnosis 08/30/2018 eCW: [facility] Diagnosis Active 2018-08-30 05:15:14 Elisa Seals Acute vaginitis Acute vaginitis Disease Resolve d 01-04 00:00: 00 2025-03-06 00:00:00 2025-03-06 10:40:53 [facility] Other general counseling and advice for contracept john management Other general counseling and advice for contracept john management Disease Resolve d 3 00:00: 00 2025-03-06 00:00:00 2025-03-06 10:41:23 [facility] Need for HPV vaccinatio n Need for HPV vaccinatio n Disease Resolve d 3- 00:00: 00 2025-03-06 00:00:00 2025-03-06 10:41:26 [facility] Declined flu vaccine Declined flu vaccine Disease Resolve d 2019-08 0-20 00:00: 00 2025-03-06 00:00:00 2025-03-06 10:41:25 [facility] Delivery by section using T-shaped incision Delivery by section using T-shaped incision Disease Active - 00:00: 00 2023-11-02 00:00:00 2023-11-02 11:16:24 [facility] Multiparit y Multiparit y Disease Resolve d 1-03 00:00: 00 2023-11-02 00:00:00 2023-11-02 11:17:15 [facility] 37 weeks gestation of 37 weeks gestation of Disease Resolve d 2-07 00:00: 00 2023-09-22 00:00:00 2023-09-22 16:31:29 [facility] Decreased movement affecting management of in third trimester, not applicable or unspecifie d fetus Decreased movement affecting management of in third trimester, not applicable or unspecifie d fetus Disease Resolve d 2-07 00:00: 00 2023-09-22 00:00:00 2023-09-22 16:31:30 [facility] Headache in , antepartum , third trimester Headache in , antepartum , third trimester Disease Resolve d 0 2-07 00:00: 00 2023-09-22 00:00:00 2023-09-22 16:31:33 [facility] 36 weeks gestation of 36 weeks gestation of Disease Resolve d 0 2-02 00:00: 00 2023-09-22 00:00:00 2023-09-22 16:31:37 [facility] Supervisio n of high-risk Supervisio n of high-risk Disease Resolve d 1-03 00:00: 00 2023-09-22 00:00:00 2023-09-22 16:31:49 [facility] UTI (urinary tract infection) during UTI (urinary tract infection) during Disease Active 2022-08 0-25 00:00: 00 2023-09-22 00:00:00 2023-09-22 16:31:51 [facility] GBS (group B streptococ cus) UTI complicati ng GBS (group B streptococ cus) UTI complicati ng Disease Resolve d 8-07 00:00: 00 2023-09-22 00:00:00 2023-09-22 16:31:32 [facility] History of miscarriag e, currently History of miscarriag e, currently Disease Active 7-06 00:00: 00 2023-09-22 00:00:00 2023-09-22 16:31:46 [facility] Maternal varicella, non-immune Maternal varicella, non-immune Disease Resolve d 2019-08 0-21 00:00: 00 2023-09-22 00:00:00 2023-09-22 16:31:34 Overview: Formattin g of this note might be different from the original. Address pp [facility] History of pre-eclamp amelia in prior , currently History of pre-eclamp amelia in prior , currently Disease Resolve d 2019-08 0-20 00:00: 00 2023-09-22 00:00:00 2023-09-22 16:31:47 [facility] Anxiety during Anxiety during Disease Resolve d 2019-08 0-20 00:00: 00 2023-09-22 00:00:00 2023-09-22 16:31:42 [facility] Anxiety during Anxiety during Disease Resolve d 2019-08 0-20 00:00: 00 2023-09-22 00:00:00 2023-09-22 16:31:42 [facility] Anemia of mother in , antepartum Anemia of mother in , antepartum Disease Resolve d 2019-0 4-01 00:00: 00 2023-09-22 00:00:00 2023-09-22 16:31:40 [facility] Obesity during Obesity during Disease Resolve d 2018- 0-28 00:00: 00 2023-09-22 00:00:00 2023-09-22 16:31:36 [facility] Nausea and vomiting during Nausea and vomiting during Disease Resolve d 7-06 00:00: 00 2023-05-05 00:00:00 2023-05-05 14:50:39 [facility] Nausea and vomiting during Nausea and vomiting during Disease Resolve d 7-06 00:00: 00 2023-05-05 00:00:00 2023-05-05 14:50:39 [facility] examinatio n or test, negative result examinatio n or test, negative result Disease Resolve d 5-02 00:00: 00 2023-02-11 00:00:00 2023-02-11 08:32:46 [facility] SAB (spontaneo us ) SAB (spontaneo us ) Disease Resolve d 5-02 00:00: 00 2023-02-11 00:00:00 2023-02-11 08:32:48 [facility] Supervisio n of high-risk Supervisio n of high-risk Disease Resolve d 2019- 0-20 00:00: 00 2023-02-11 00:00:00 2023-02-11 08:32:50 [facility] Multiparit y Multiparit y Disease Resolve d 1 0-20 00:00: 00 2023-02-11 00:00:00 2023-02-11 08:32:42 [facility] Short interval between pregnancie s affecting , antepartum Short interval between pregnancie s affecting , antepartum Disease Resolve d 2019-08 0-20 00:00: 00 2023-02-11 00:00:00 2023-02-11 08:32:49 [facility] Obesity in Obesity in Disease Resolve d 0 2-01 00:00: 00 2023-02-11 00:00:00 2023-02-11 08:32:45 [facility] Anemia of mother in , condition Anemia of mother in , condition Disease Resolve d 0 6-05 00:00: 00 2021-10-21 00:00:00 2021-10-21 14:51:23 [facility] Single live Single live Disease Resolve d 0 6-05 00:00: 00 2021-10-21 00:00:00 2021-10-21 14:51:08 [facility] Single live Single live Disease Resolve d 0 6-05 00:00: 00 2021-10-21 00:00:00 2021-10-21 14:51:08 [facility] Obesity (BMI 30-39.9) Obesity (BMI 30-39.9) Disease Resolve d 0 6-03 00:00: 00 2021-10-21 00:00:00 2021-10-21 14:51:11 [facility] 38 weeks gestation of 38 weeks gestation of Disease Resolve d 0 6-03 00:00: 00 2021-10-21 00:00:00 2021-10-21 14:51:25 [facility] Decreased movement Decreased movement Disease Resolve d 0 6-03 00:00: 00 2021-10-21 00:00:00 2021-10-21 14:51:16 [facility] Indication for care or interventi on in labor or delivery-I OL d/t DFM Indication for care or interventi on in labor or delivery-I OL d/t DFM Disease Resolve d 0 6-03 00:00: 00 2021-10-21 00:00:00 2021-10-21 14:51:13 [facility] Circumvall ate placenta Circumvall ate placenta Disease Resolve d 0 2-01 00:00: 00 2021-10-21 00:00:00 2021-10-21 14:51:18 [facility] Headache in Headache in Disease Resolve d 2020-0 1-15 00:00: 00 2021-10-21 00:00:00 2021-10-21 14:51:15 [facility] (spontaneo us vaginal delivery) (spontaneo us vaginal delivery) Disease Resolve d 2019-0 6-15 00:00: 00 2021-10-21 00:00:00 2021-10-21 14:51:04 [facility] Nausea and vomiting during Nausea and vomiting during Disease Resolve d 2020-0 5-28 00:00: 00 2021-01-09 00:00:00 2021-01-09 14:30:46 [facility] Nausea and vomiting during Nausea and vomiting during Disease Resolve d 2020-0 5-28 00:00: 00 2021-01-09 00:00:00 2021-01-09 14:30:46 [facility] Pain of round ligament during Pain of round ligament during Disease Resolve d 2020-0 5-03 00:00: 00 2021-01-09 00:00:00 2021-01-09 14:30:45 [facility] Routine follow-up Routine follow-up Disease Resolve d 2019-0 7-13 00:00: 00 2020-05-28 00:00:00 2020-05-28 13:43:04 [facility] Elevated blood pressure reading without diagnosis of hypertensi on Elevated blood pressure reading without diagnosis of hypertensi on Disease Resolve d 2019-0 6-12 00:00: 00 2020-05-28 00:00:00 2020-05-28 13:43:11 [facility] [place] Hick's contractio n Severino Hick's contractio n Disease Resolve d 2019-0 4-27 00:00: 00 2020-05-28 00:00:00 2020-05-28 13:43:17 [facility] Leukorrhea Leukorrhea Disease Resolve d 2019-0 3-02 00:00: 00 2020-05-28 00:00:00 2020-05-28 13:43:18 [facility] Susceptibl e to varicella (non-immun e), currently Susceptibl e to varicella (non-immun e), currently Disease Resolve d 2018-08 0-29 00:00: 00 2020-05-28 00:00:00 2020-05-28 13:43:16 [facility] Single liveborn Single liveborn Disease Resolve d 6-15 00:00: 00 2020-02-19 00:00:00 2020-02-19 16:25:36 [facility] 37 weeks gestation of 37 weeks gestation of Disease Resolve d 6-12 00:00: 00 2020-02-19 00:00:00 2020-02-19 16:25:38 [facility] Diarrhea during Diarrhea during Disease Resolve d 1-06 00:00: 00 2020-02-19 00:00:00 2020-02-19 16:25:43 [facility] Supervisio n of high-risk Supervisio n of high-risk Disease Resolve d 2018-08 0-28 00:00: 00 2020-02-19 00:00:00 2020-02-19 16:25:48 [facility] Tachycardi a, unspecifie d Tachycardi a, unspecifie d Disease Resolve d 2018-08 0-28 00:00: 00 2020-02-19 00:00:00 2020-02-19 16:25:45 [facility] Allergies, Adverse Reactions, Alerts Allergy Name Allergy Type Status Severity Reaction(s) Onset Date Inactive Date Treating Clinician Comments Source Amoxicil glenna Propensi ty to adverse reaction s Active Rash 03-05 00:00: 00 [facility] AMOXICIL GLENNA DRUG INGREDI Active High Rash 03-05 00:00: 00 [facility] N.K.D.A. N.K.D.A. Active Info Not Available 2017-08 00:00: 00 Elisa Seals Social History Social Habit Start Date Stop Date Quantity Comments Source ASSERTION 2025-02-07 00:00:00 [facility] History of Occupation [facility] History of Social function 2025-03-06 00:00:00 2025-03-06 00:00:00 [facility] Alcoholic beverage intake 2025-03-06 00:00:00 2025-03-06 00:00:00 0 /d [facility] Alcohol intake 2023-11-02 00:00:00 2023-11-02 00:00:00 0 /d [facility] Exposure to SARS-CoV-2 (event) 2022-12-20 00:00:00 2022-12-30 16:27:00 Not sure [facility] Tobacco use and exposure 2022-02-16 00:00:00 2022-02-16 00:00:00 Smokeless tobacco non-user [facility] Sex assigned at 2000 00:00:00 2000 00:00:00 [facility] Smoking Status Start Date Stop Date Source Never smoked tobacco [facility] Medications Ordered Medication Name Filled Medication Name Start Date Stop Date Current Medication? Ordering Clinician Indication Dosage Frequency Signature (SIG) Comments Components Source proMETHazin e 25 mg tablet 03-14 00:00: 00 Yes [id number] 25mg Take 1 tablet by mouth every 6 hours as needed for Nausea and Vomiting (N/V). [facility] meclizine 12.5 mg tablet 2023-08 00:00: 00 07-10 05:59 :00 No [id number] 12.5mg Take 1 tablet by mouth 3 (three) times daily as needed for Dizziness or Nausea for up to 5 days. [facility] ketorolac (TORADOL) injection 30 mg 01-22 01:45: 00 01-22 01:03 :00 No [id number] 30mg [facility] clindamycin 300 mg capsule 01-21 00:00: 00 02-01 04:59 :00 No [id number] 300mg Take 1 capsule by mouth 4 (four) times daily for 10 days. [facility] SERTraline 100 mg tablet 01-04 00:00: 00 Yes [id number] 200mg Take 2 tablets by mouth in the morning. [facility] fluconazole (DIFLUCAN) 150 mg tablet 01-04 00:00: 00 03-06 00:00 :00 No [id number] Take 1 tab today and repeat 1 in 72 hrs [facility] SERTRALINE 100 mg tablet 11-28 00:00: 00 01-04 00:00 :00 No [id number] 109 100mg TAKE 1 TABLET BY MOUTH EVERY DAY IN THE MORNING [facility] famotidine (PEPCID AC) tablet 20 mg 09-18 02:00: 00 Yes 20mg 20 mg, Oral, BID, First dose on Wed09/17/23 at 2000, Until Discontinu ed, Routine [facility] proMETHazin e (PHENERGAN) tablet 25 mg 09-17 06:45: 00 09-17 06:35 :00 No 25mg 25 mg, Oral, ONCE, 1 dose, On Wed09/17/23 at 0045, Routine [facility] SERTraline (ZOLOFT) tablet 100 mg 09-17 05:45: 00 Yes 100mg 100 mg, Oral, DAILY, First dose (after last modificati on) on Wed09/16/23 at 2345, Until Discontinu ed, Routine [facility] [id number] fum-folic () 27 mg iron- 1 mg folic tablet 09-17 00:00: 00 11-01 00:00 :00 No [id number] 1{tbl} Take 1 tablet by mouth in the morning. [facility] docusate 100 mg capsule 09-17 00:00: 00 11-01 00:00 :00 No [id number] 200mg Take 2 capsules by mouth once daily as needed for Constipati on. [facility] ferrous sulfate 325 mg (65 mg iron) tablet 09-17 00:00: 11-01 00:00 :00 No [id number] 325mg Take 1 tablet by mouth in the morning. [facility] ibuprofen 600 mg tablet 09-17 00:00: 11-01 00:00 :00 No [id number] 600mg Take 1 tablet by mouth every 6 (six) hours as needed (Pain). Take with food or milk. [facility] HYDROcodone -acetaminop hen 5-325 mg tablet 09-17 00:00: 00 09-25 05:59 :00 No [id number] 1{tbl} Take 1 tablet by mouth every 6 (six) hours as needed (Pain scale above 4) for up to 7 days. Do not exceed 3 grams of acetaminop hen in 24 hours. Indication s: acute pain [facility] ibuprofen (IBU) tablet 800 mg 09-16 17:45: 00 Yes 800mg 800 mg, Oral, Q8HA1, First dose on Wed09/16/23 at 1145, Until Discontinu ed, Routine [facility] acetaminoph en (TYLENOL) tablet 1,000 mg 09-16 16:00: 00 Yes 1000mg 1,000 mg, Oral, Q8H, First dose on Wed09/16/23 at 1000, Until Discontinu ed, Routine [facility] rho(D) immune globulin (RHOGAM) syringe 300 mcg 09-16 15:49: 41 Yes 300ug 300 mcg, Intramuscu lar, ONCE, For 1 dose, Conditiona l, Routine [facility] oxyCODONE immediate release tablet 5 mg 09-16 15:49: 37 Yes 5mg 5 mg, Oral, Q6HPRN, Starting on Wed09/16/23 at 0949, Until Discontinu ed, Routine, Pain (scale 7-10)
F aculty member approving Restricted medication : BHARTI DIAZ [facility] diphenhydrA MINE (BENADRYL) injection 25 mg 09-16 15:49: 37 Yes 25mg 25 mg, Slow IV Push, Q6HPRN, Starting on Wed09/16/23 at 0949, Until Discontinu ed, Routine, Itching [facility] diphenhydrA MINE (BENADRYL) tablet 25 mg 09-16 15:49: 37 Yes 25mg 25 mg, Oral, Q6HPRN, Starting on Wed09/16/23 at 0949, Until Discontinu ed, Routine, Sleep, Itching [facility] ondansetron (ZOFRAN (PF)) injection 4 mg 09-16 15:49: 37 Yes 4mg 4 mg, Slow IV Push, Q8HPRN, Starting on Wed09/16/23 at 0949, Until Discontinu ed, Routine, Nausea and Vomiting (N/V) [facility] bisacodyL (DULCOLAX) suppository 10 mg 09-16 15:49: 37 Yes 10mg 10 mg, Rectal, QDAILYPRN, Starting on Wed09/16/23 at 0949, Until Discontinu ed, Routine, Constipati on [facility] simethicone (GAS RELIEF (SIMETHICON E)) chewable tablet 160 mg 09-16 15:49: 37 Yes 160mg 160 mg, Oral, PC+HSPRN, Starting on Wed09/16/23 at 0949, Until Discontinu ed, Routine, Gas [facility] docusate (COLACE) capsule 200 mg 09-16 15:49: 37 Yes 200mg 200 mg, Oral, QDAILYPRN, Starting on Wed09/16/23 at 0949, Until Discontinu ed, Routine, Constipati on [facility] magnesium hydroxide (MILK OF MAGNESIA) 400 mg/5 mL suspension 30 mL 09-16 15:49: 37 Yes 30mL 30 mL, Oral, QDAILYPRN, Starting on Wed09/16/23 at 0949, Until Discontinu ed, Routine, Constipati on [facility] lactated ringers IV infusion 1,000 mL 09-16 15:49: 37 Yes 1000mL at 125 mL/hr, 1,000 mL, IV Infusion, PRN, 1 dose, Starting on Janeth 09/16/23 at 0949, Until Discontinu ed, Routine [facility] ketorolac (TORADOL) injection 30 mg 09-16 13:45: 00 09-16 13:21 :00 No 30mg 30 mg, Slow IV Push, ONCE, 1 dose, On Janeth 09/16/23 at 0745, Routine, PACU [facility] acetaminoph en (OFIRMEV) IV piggyback 1,000 mg 09-16 13:15: 00 09-16 13:35 :00 No 1000mg 1,000 mg, IV Piggyback, at 400 mL/hr Administer over 15 Minutes, ONCE, 1 dose, On Janeth 09/16/23 at 0715, Routine, PACU
In dication: Strict NPO and unable to tolerate oral medication s
Is the patient strict NPO and unable to tolerate oral medication s? Yes [facility] morpHINE (2 mg/mL) injection 4 mg 09-16 13:08: 08 Yes 4mg 4 mg, Slow IV Push, Q5MIN PRN, 2 doses, Starting on Janeth 09/16/23 at 0708, Until Discontinu ed, Routine, Pain (scale 7-10), PACU [facility] FENTanyl PF (SUBLIMAZE (PF)) injection 25 mcg 09-16 13:08: 08 Yes 25ug 25 mcg, Slow IV Push, Q5MIN PRN, 4 doses, Starting on Janeth 09/16/23 at 0708, Until Discontinu ed, Routine, Pain (scale 4-6), PACU [facility] ondansetron (ZOFRAN (PF)) injection 4 mg 09-16 13:08: 08 09-16 15:13 :00 No 4mg 4 mg, Slow IV Push, PRN, 1 dose, Starting on Janeth 09/16/23 at 0708, Until Discontinu ed, Routine, Nausea and Vomiting (N/V), PACU [facility] morpHINE PF (DURAMORPH- PF) injection 09-16 12:45: 00 09-16 13:04 :50 No Epidural, ONCE INTRA PROCEDURE, Starting on Janeth 09/16/23 at 0645, Until Janeth 09/16/23 at 0704, Routine, Intra-op [facility] phenylephri ne (VAZCULEP) injection 09-16 12:38: 00 09-16 13:04 :50 No Intravenou s, ONCE INTRA PROCEDURE, Starting on Janeth 09/16/23 at 0638, Until Janeth 09/16/23 at 0704, Routine, Intra-op [facility] FENTanyl PF (SUBLIMAZE (PF)) injection 09-16 12:24: 00 09-16 13:04 :50 No Epidural, ONCE INTRA PROCEDURE, Starting on Janeth 09/16/23 at 0624, Until Discontinu ed, Routine, Intra-op [facility] oxytocin (PITOCIN) 30 units in NS 500 mL IV infusion 09-16 12:17: 00 09-16 13:04 :50 No IV Infusion, CONTINUOUS PRN, Starting on Janeth 09/16/23 at 0617, Until Janeth 09/16/23 at 0704, Routine, Intra-op [facility] lidocaine-e pinephrine (XYLOCAINE W/EPINEPHRI NE) 2 %-1:200,000 injection 09-16 12:11: 00 09-16 13:04 :50 No Intravenou s, ONCE INTRA PROCEDURE, Starting on Janteh 09/16/23 at 0611, Until Discontinu ed, Routine, Intra-op [facility] lactated ringers IV infusion 09-16 11:55: 00 09-16 13:04 :50 No IV Infusion, CONTINUOUS PRN, Starting on Janeth 09/16/23 at 0555, Until Discontinu ed, Routine, Intra-op [facility] lactated ringers IV infusion 500 mL 09-16 08:00: 00 09-16 07:26 :29 No 500mL at 999 mL/hr, 500 mL, IV Infusion, ONCE, 1 dose, On Janeth 09/16/23 at 0200, Routine [facility] ropivacaine 0.2 % (NAROPIN (PF)) epidural infusion 09-16 07:50: 00 09-16 13:04 :50 No Epidural, CONTINUOUS PRN, Starting on Janeth 09/16/23 at 0150, Until Discontinu ed, Routine, Intra-op [facility] lidocaine-e pinephrine (XYLOCAINE W/EPINEPHRI NE) 1.5 %-1:200,000 injection 09-16 07:47: 00 09-16 13:04 :50 No Intraderma l, ONCE INTRA PROCEDURE, Starting on Janeth 09/16/23 at 0147, Until Discontinu ed, Routine, Intra-op [facility] sodium citrate-cit thanh acid (BICITRA) 500-334 mg/5 mL solution 30 mL 09-16 07:03: 24 09-16 07:26 :00 No 30mL 30 mL, Oral, PRE-PROCED URE ONCE, 1 dose, Starting on Wed09/16/23 at 0103, Until Janeth 09/16/23 at 0126, Routine, Surgery/Pr ocedure [facility] oxytocin (PITOCIN) 30 units in NS 500 mL IV infusion 09-15 22:09: 27 09-16 15:49 :40 No 2mU/min at 2-40 mL/hr, IV Infusion, TITRATE, Starting on Wed09/15/23 at 1609, Until Wed09/16/23 at 0949, RANDELL [facility] D5W-LR IV infusion 1,000 mL 09-15 22:06: 08 09-16 15:49 :39 No 1000mL at 1-125 mL/hr, IV Infusion, TITRATE, Starting on Wed09/15/23 at 1606, Until Janeth 09/16/23 at 0949, Routine [facility] proCHLORper azine (COMPAZINE) tablet 10 mg 09-15 20:47: 00 09-15 20:58 :00 No 10mg 10 mg, Oral, ONCE, 1 dose, On Wed09/15/23 at 1500, RANDELL [facility] proCHLORper azine (COMPAZINE) tablet 10 mg 09-11 02:30: 00 09-11 01:20 :00 No 10mg 10 mg, Oral, ONCE, 1 dose, On Wed09/10/23 at 2030, Routine [facility] metoclopram kee HCl (REGLAN) 10 mg in NaCl 0.9% (NS) piggyback 09-11 00:00: 00 Yes 10mg 10 mg, IV Piggyback, Q6H, First dose on Wed09/10/23 at 1800, Until Discontinu ed, 50 mL [facility] diphenhydrA MINE (BENADRYL) injection 25 mg 09-10 23:30: 00 09-11 00:43 :00 No 25mg 25 mg, Intravenou s, ONCE, 1 dose, On Wed09/10/23 at 1730, Routine [facility] lactated ringers IV infusion 500 mL 09-10 23:30: 00 09-10 22:59 :00 No 500mL at 999 mL/hr, 500 mL, Intravenou s, ONCE, 1 dose, On Wed09/10/23 at 1730, Routine [facility] ferrous sulfate 325 mg (65 mg iron) tablet 09-10 00:00: 00 09-17 00:00 :00 No [id number] 325mg Take 1 tablet by mouth in the morning and 1 tablet in the evening. [facility] ascorbic acid, vitamin C, 500 mg tablet 09-10 00:00: 00 09-17 00:00 :00 No [id number] 500mg Take 1 tablet by mouth in the morning and 1 tablet at noon and 1 tablet in the evening. [facility] fluconazole (DIFLUCAN) 150 mg tablet 08-11 00:00: 00 08-12 05:59 :00 No [id number] 150mg Take 1 tablet by mouth once now for 1 dose. [facility] ondansetron (ZOFRAN) tablet 4 mg 2022-08 2- 01:30: 00 08-03 01:04 :00 No 4mg 4 mg, Oral, ONCE, 1 dose, On Wed08/02/23 at 1930, Routine [facility] Iron Fum & P-FA-Vit B & C No.9 (INTEGRA PLUS) 125 mg iron- 1 mg Cap 2022-08 2 00:00: 00 09-17 00:00 :00 No [id number] 1{capsu le} Take 1 capsule by mouth in the morning. [facility] fluconazole (DIFLUCAN) 150 mg tablet 05-05 00:00: 00 05-06 04:59 :00 No [id number] 150mg Take 1 tablet by mouth once now for 1 dose. [facility] fluconazole (DIFLUCAN) 150 mg tablet 9-14 00:00: 00 04-23 04:59 :00 No [id number] 150mg Take 1 tablet by mouth once now for 1 dose. [facility] cephALEXin (KEFLEX) 500 mg capsule 9-11 00:00: 00 04-30 04:59 :00 No [id number] 500mg Take 1 capsule by mouth 4 (four) times daily for 10 days. [facility] SERTraline 100 mg tablet 04-08 00:00: 00 11-28 00:00 :00 No [id number] 100mg Take 1 tablet by mouth in the morning. [facility] ondansetron 4 mg disintegrat ing tablet 04-08 00:00: 00 08-11 00:00 :00 No [id number] 4mg Take 1 tablet by mouth every 8 (eight) hours as needed for Nausea and Vomiting (N/V). [facility] aspirin 81 mg EC tablet 03-24 00:00: 00 09-17 00:00 :00 No [id number] 81mg Take 1 tablet by mouth in the morning. [facility] ondansetron 4 mg disintegrat ing tablet 03-24 00:00: 00 04-08 00:00 :00 No [id number] 4mg Take 1 tablet by mouth every 8 (eight) hours as needed for Nausea and Vomiting (N/V). [facility] cephALEXin (KEFLEX) 500 mg capsule 03-15 00:00: 00 03-26 04:59 :00 No [id number] 500mg Take 1 capsule by mouth 4 (four) times daily for 10 days. [facility] proMETHazin e 25 mg tablet 03-11 00:00: 00 09-17 00:00 :00 No [id number] 25mg Take 1 tablet by mouth every 4 (four) hours as needed for Nausea and Vomiting (N/V). [facility] ondansetron (ZOFRAN-ODT ) disintegrat ing tablet 4 mg 03-02 02:15: 00 03-02 01:17 :00 No 4mg 4 mg, Oral, ONCE, 1 dose, On Wed03/01/23 at 2115, Routine [facility] SERTraline (ZOLOFT) tablet 50 mg 03-02 01:30: 00 03-02 01:17 :00 No 50mg 50 mg, Oral, ONCE, 1 dose, On Wed03/01/23 at 2030, RANDELL [facility] SERTraline (ZOLOFT) 50 mg tablet 03-02 00:00: 00 04-08 00:00 :00 No [id number] 50mg Take 1 tablet by mouth in the morning. [facility] ondansetron 4 mg disintegrat ing tablet 03-01 00:00: 00 03-24 00:00 :00 No [id number] 4mg Take 1 tablet by mouth every 8 (eight) hours as needed for Nausea and Vomiting (N/V). [facility] SERTraline 50 mg tablet 03-01 00:00: 00 03-01 00:00 :00 No [id number] 50mg Take 1 tablet by mouth in the morning. [facility] fluconazole (DIFLUCAN) 150 mg tablet 12-30 00:00: 00 12-31 04:59 :00 No [id number] 150mg Take 1 tablet by mouth once now for 1 dose. [facility] SERTraline (ZOLOFT) 50 mg tablet 12-25 00:00: 00 03-02 00:00 :00 No [id number] 50mg Take 1 tablet by mouth in the morning. [facility] SERTraline (ZOLOFT) 50 mg tablet 2021-08 00:00: 00 12-25 00:00 :00 No [id number] 50mg Take 1 tablet by mouth in the morning. [facility] busPIRone 10 mg tablet 2021-08 00:00: 00 09-07 05:59 :00 No [id number] 10mg Take 1 tablet by mouth 2 (two) times daily as needed (anxiety) for up to 30 days. [facility] azithromyci n 250 mg tablet 2021-08 0- 00:00: 00 12-30 00:00 :00 No [id number] 250mg Z-Chikis = 500 mg day 1, then 250 mg days 2 to 5. [facility] SERTraline (ZOLOFT) 50 mg tablet 05-05 00:00: 00 08-07 00:00 :00 No [id number] 50mg Take 1 tablet by mouth in the morning. [facility] SERTraline (ZOLOFT) 50 mg tablet - 00:00: 00 Yes [id number] 50mg Take 1 tablet by mouth in the morning. [facility] busPIRone 10 mg tablet - 00:00: 00 03-19 04:59 :00 No [id number] 10mg Take 1 tablet by mouth 2 (two) times daily as needed (anxiety) for up to 30 days. [facility] methylPREDN ISolone (MEDROL, CHIKIS,) 4 mg tablets 6-10 00:00: 00 02-11 00:00 :00 No [id number] Take by mouth SEE-INSTRU CTIONS. follow package directions [facility] fluconazole (DIFLUCAN) 150 mg tablet 5-06 00:00: 00 05-18 00:00 :00 No [id number] Take one pill now and repeat in 3 days if needed [facility] multivitami n ( VITAMIN) tablet 3-15 00:00: 00 02-11 00:00 :00 No [id number] 1{tbl} Take 1 tablet by mouth daily. [facility] multivitami n ( VITAMIN) tablet 3-15 00:00: 00 02-11 00:00 :00 No [id number] 1{tbl} Take 1 tablet by mouth daily. [facility] vitamin w/FA tablet 6-05 00:00: 00 02-11 00:00 :00 No [id number] 1{tbl} Take 1 tablet by mouth daily. [facility] vitamin w/FA tablet 6-05 00:00: 00 02-11 00:00 :00 No [id number] 1{tbl} Take 1 tablet by mouth daily. [facility] Cipro 2017- 2-20 00:00: 00 Yes Janette Sullivan 1 tab(s) Elisa Seals Immunizations Ordered Immunization Name Filled Immunization Name Date Status Comments Source HPV9 2023-11-02 00:00:00 Completed [facility] TDAP 2023-08-11 00:00:00 Completed TDAP 2020-11-08 00:00:00 Completed [facility] TDAP 2020-11-08 00:00:00 Completed [facility] TDAP 2020-11-08 00:00:00 Completed [facility] TDAP 2020-11-08 00:00:00 Completed [facility] TDAP 2020-11-08 00:00:00 Completed [facility] TDAP 2020-11-08 00:00:00 Completed [facility] TDAP 2020-11-08 00:00:00 Completed [facility] TDAP 2020-11-08 00:00:00 Completed [facility] TDAP 2020-11-08 00:00:00 Completed [facility] TDAP 2020-11-08 00:00:00 Completed [facility] TDAP 2020-11-08 00:00:00 Completed [facility] TDAP 2020-11-08 00:00:00 Completed [facility] TDAP 2020-11-08 00:00:00 Completed [facility] TDAP 2020-11-08 00:00:00 Completed [facility] TDAP 2020-11-08 00:00:00 Completed [facility] TDAP 2020-11-08 00:00:00 Completed [facility] TDAP 2020-11-08 00:00:00 Completed [facility] TDAP 2020-11-08 00:00:00 Completed [facility] TDAP 2020-11-08 00:00:00 Completed [facility] TDAP 2020-11-08 00:00:00 Completed [facility] TDAP 2020-11-08 00:00:00 Completed [facility] TDAP 2020-11-08 00:00:00 Completed [facility] TDAP 2020-11-08 00:00:00 Completed [facility] TDAP 2020-11-08 00:00:00 Completed [facility] TDAP 2020-11-08 00:00:00 Completed [facility] TDAP 2020-11-08 00:00:00 Completed [facility] TDAP 2020-11-08 00:00:00 Completed [facility] TDAP 2020-11-08 00:00:00 Completed [facility] TDAP 2020-11-08 00:00:00 Completed [facility] TDAP 2019-11-21 00:00:00 Completed [facility] TDAP 2019-11-21 00:00:00 Completed [facility] TDAP 2019-11-21 00:00:00 Completed [facility] TDAP 2019-11-21 00:00:00 Completed [facility] TDAP 2019-11-21 00:00:00 Completed [facility] TDAP 2019-11-21 00:00:00 Completed [facility] TDAP 2019-11-21 00:00:00 Completed [facility] TDAP 2019-11-21 00:00:00 Completed [facility] TDAP 2019-11-21 00:00:00 Completed [facility] TDAP 2019-11-21 00:00:00 Completed [facility] TDAP 2019-11-21 00:00:00 Completed [facility] TDAP 2019-11-21 00:00:00 Completed [facility] TDAP 2019-11-21 00:00:00 Completed [facility] TDAP 2019-11-21 00:00:00 Completed [facility] TDAP 2019-11-21 00:00:00 Completed [facility] TDAP 2019-11-21 00:00:00 Completed [facility] TDAP 2019-11-21 00:00:00 Completed [facility] TDAP 2019-11-21 00:00:00 Completed [facility] TDAP 2019-11-21 00:00:00 Completed [facility] TDAP 2019-11-21 00:00:00 Completed [facility] TDAP 2019-11-21 00:00:00 Completed [facility] TDAP 2019-11-21 00:00:00 Completed [facility] TDAP 2019-11-21 00:00:00 Completed [facility] TDAP 2019-11-21 00:00:00 Completed [facility] TDAP 2019-11-21 00:00:00 Completed [facility] TDAP 2019-11-21 00:00:00 Completed [facility] TDAP 2019-11-21 00:00:00 Completed [facility] TDAP 2019-11-21 00:00:00 Completed [facility] TDAP 2019-11-21 00:00:00 Completed [facility] Influenza Virus Vaccine Quad .5 mL IM 6+ MO 2017-05-04 00:00:00 Completed [facility] Influenza Virus Vaccine Quad .5 mL IM 6+ MO 2017-05-04 00:00:00 Completed [facility] Influenza Virus Vaccine Quad .5 mL IM 6+ MO 2017-05-04 00:00:00 Completed [facility] Influenza Virus Vaccine Quad .5 mL IM 6+ MO 2017-05-04 00:00:00 Completed [facility] Influenza Virus Vaccine Quad .5 mL IM 6+ MO 2017-05-04 00:00:00 Completed [facility] Influenza Virus Vaccine Quad .5 mL IM 6+ MO 2017-05-04 00:00:00 Completed [facility] Influenza Virus Vaccine Quad .5 mL IM 6+ MO 2017-05-04 00:00:00 Completed [facility] Influenza Virus Vaccine Quad .5 mL IM 6+ MO 2017-05-04 00:00:00 Completed [facility] Influenza Virus Vaccine Quad .5 mL IM 6+ MO 2017-05-04 00:00:00 Completed [facility] Influenza Virus Vaccine Quad .5 mL IM 6+ MO 2017-05-04 00:00:00 Completed [facility] Influenza Virus Vaccine Quad .5 mL IM 6+ MO 2017-05-04 00:00:00 Completed [facility] Influenza Virus Vaccine Quad .5 mL IM 6+ MO 2017-05-04 00:00:00 Completed [facility] Influenza Virus Vaccine Quad .5 mL IM 6+ MO 2017-05-04 00:00:00 Completed [facility] Influenza Virus Vaccine Quad .5 mL IM 6+ MO 2017-05-04 00:00:00 Completed [facility] Influenza Virus Vaccine Quad .5 mL IM 6+ MO 2017-05-04 00:00:00 Completed [facility] Influenza Virus Vaccine Quad .5 mL IM 6+ MO 2017-05-04 00:00:00 Completed [facility] Influenza Virus Vaccine Quad .5 mL IM 6+ MO 2017-05-04 00:00:00 Completed [facility] Influenza Virus Vaccine Quad .5 mL IM 6+ MO 2017-05-04 00:00:00 Completed [facility] Influenza Virus Vaccine Quad .5 mL IM 6+ MO (FLUZONE/FLULAVAL/FL UARIX) 2017-05-04 00:00:00 Completed [facility] Influenza Virus Vaccine Quad .5 mL IM 6+ MO (FLUZONE/FLULAVAL/FL UARIX) 2017-05-04 00:00:00 Completed [facility] Influenza Virus Vaccine Quad .5 mL IM 6+ MO (FLUZONE/FLULAVAL/FL UARIX) 2017-05-04 00:00:00 Completed HPV 2014-07-18 00:00:00 Completed [facility] HPV 2014-07-18 00:00:00 Completed [facility] HPV 2014-07-18 00:00:00 Completed [facility] HPV 2014-07-18 00:00:00 Completed [facility] HPV 2014-07-18 00:00:00 Completed [facility] HPV 2014-07-18 00:00:00 Completed [facility] HPV 2014-07-18 00:00:00 Completed [facility] HPV 2014-07-18 00:00:00 Completed [facility] HPV 2014-07-18 00:00:00 Completed [facility] HPV 2014-07-18 00:00:00 Completed [facility] HPV 2014-07-18 00:00:00 Completed [facility] HPV 2014-07-18 00:00:00 Completed [facility] HPV 2014-07-18 00:00:00 Completed [facility] HPV 2014-07-18 00:00:00 Completed [facility] HPV 2014-07-18 00:00:00 Completed [facility] HPV 2014-07-18 00:00:00 Completed [facility] HPV 2014-07-18 00:00:00 Completed [facility] HPV 2014-07-18 00:00:00 Completed [facility] HPV 2014-07-18 00:00:00 Completed [facility] HPV 2014-07-18 00:00:00 Completed [facility] HPV 2014-07-18 00:00:00 Completed HPV 2014-04-30 00:00:00 Completed [facility] HPV 2014-04-30 00:00:00 Completed [facility] HPV 2014-04-30 00:00:00 Completed [facility] HPV 2014-04-30 00:00:00 Completed [facility] HPV 2014-04-30 00:00:00 Completed [facility] HPV 2014-04-30 00:00:00 Completed [facility] HPV 2014-04-30 00:00:00 Completed [facility] HPV 2014-04-30 00:00:00 Completed [facility] HPV 2014-04-30 00:00:00 Completed [facility] HPV 2014-04-30 00:00:00 Completed [facility] HPV 2014-04-30 00:00:00 Completed [facility] HPV 2014-04-30 00:00:00 Completed [facility] HPV 2014-04-30 00:00:00 Completed [facility] HPV 2014-04-30 00:00:00 Completed [facility] HPV 2014-04-30 00:00:00 Completed [facility] HPV 2014-04-30 00:00:00 Completed [facility] HPV 2014-04-30 00:00:00 Completed [facility] HPV 2014-04-30 00:00:00 Completed [facility] HPV 2014-04-30 00:00:00 Completed [facility] HPV 2014-04-30 00:00:00 Completed [facility] HPV 2014-04-30 00:00:00 Completed TDAP 2013-03-13 00:00:00 Completed [facility] TDAP 2013-03-13 00:00:00 Completed [facility] TDAP 2013-03-13 00:00:00 Completed [facility] TDAP 2013-03-13 00:00:00 Completed [facility] TDAP 2013-03-13 00:00:00 Completed [facility] TDAP 2013-03-13 00:00:00 Completed [facility] TDAP 2013-03-13 00:00:00 Completed [facility] TDAP 2013-03-13 00:00:00 Completed [facility] TDAP 2013-03-13 00:00:00 Completed [facility] TDAP 2013-03-13 00:00:00 Completed [facility] TDAP 2013-03-13 00:00:00 Completed [facility] TDAP 2013-03-13 00:00:00 Completed [facility] TDAP 2013-03-13 00:00:00 Completed [facility] TDAP 2013-03-13 00:00:00 Completed [facility] TDAP 2013-03-13 00:00:00 Completed [facility] TDAP 2013-03-13 00:00:00 Completed [facility] TDAP 2013-03-13 00:00:00 Completed [facility] TDAP 2013-03-13 00:00:00 Completed [facility] TDAP 2013-03-13 00:00:00 Completed [facility] TDAP 2013-03-13 00:00:00 Completed [facility] TDAP 2013-03-13 00:00:00 Completed [facility] TDAP 2013-03-13 00:00:00 Completed [facility] TDAP 2013-03-13 00:00:00 Completed [facility] TDAP 2013-03-13 00:00:00 Completed [facility] TDAP 2013-03-13 00:00:00 Completed [facility] TDAP 2013-03-13 00:00:00 Completed [facility] TDAP 2013-03-13 00:00:00 Completed [facility] TDAP 2013-03-13 00:00:00 Completed [facility] TDAP 2013-03-13 00:00:00 Completed [facility] Meningococcal Polysaccharide (groups A, C, Y and W-135) conjugate vaccine (MCV4P) 2011-12-04 00:00:00 Completed [facility] TDAP 2011-12-04 00:00:00 Completed [facility] Varicella (varivax)(chicken pox) 2011-12-04 00:00:00 Completed [facility] Meningococcal Polysaccharide (groups A, C, Y and W-135) conjugate vaccine (MCV4P) 2011-12-04 00:00:00 Completed [facility] TDAP 2011-12-04 00:00:00 Completed [facility] Varicella (varivax)(chicken pox) 2011-12-04 00:00:00 Completed [facility] Meningococcal Polysaccharide (groups A, C, Y and W-135) conjugate vaccine (MCV4P) 2011-12-04 00:00:00 Completed [facility] TDAP 2011-12-04 00:00:00 Completed [facility] Varicella (varivax)(chicken pox) 2011-12-04 00:00:00 Completed [facility] Meningococcal Polysaccharide (groups A, C, Y and W-135) conjugate vaccine (MCV4P) 2011-12-04 00:00:00 Completed [facility] TDAP 2011-12-04 00:00:00 Completed [facility] Varicella (varivax)(chicken pox) 2011-12-04 00:00:00 Completed [facility] Meningococcal Polysaccharide (groups A, C, Y and W-135) conjugate vaccine (MCV4P) 2011-12-04 00:00:00 Completed [facility] TDAP 2011-12-04 00:00:00 Completed [facility] Varicella (varivax)(chicken pox) 2011-12-04 00:00:00 Completed [facility] Meningococcal Polysaccharide (groups A, C, Y and W-135) conjugate vaccine (MCV4P) 2011-12-04 00:00:00 Completed [facility] TDAP 2011-12-04 00:00:00 Completed [facility] Varicella (varivax)(chicken pox) 2011-12-04 00:00:00 Completed [facility] Meningococcal Polysaccharide (groups A, C, Y and W-135) conjugate vaccine (MCV4P) 2011-12-04 00:00:00 Completed [facility] TDAP 2011-12-04 00:00:00 Completed [facility] Varicella (varivax)(chicken pox) 2011-12-04 00:00:00 Completed [facility] Meningococcal Polysaccharide (groups A, C, Y and W-135) conjugate vaccine (MCV4P) 2011-12-04 00:00:00 Completed [facility] TDAP 2011-12-04 00:00:00 Completed [facility] Varicella (varivax)(chicken pox) 2011-12-04 00:00:00 Completed [facility] Meningococcal Polysaccharide (groups A, C, Y and W-135) conjugate vaccine (MCV4P) 2011-12-04 00:00:00 Completed [facility] TDAP 2011-12-04 00:00:00 Completed [facility] Varicella (varivax)(chicken pox) 2011-12-04 00:00:00 Completed [facility] Meningococcal Polysaccharide (groups A, C, Y and W-135) conjugate vaccine (MCV4P) 2011-12-04 00:00:00 Completed [facility] TDAP 2011-12-04 00:00:00 Completed [facility] Varicella (varivax)(chicken pox) 2011-12-04 00:00:00 Completed [facility] Meningococcal Polysaccharide (groups A, C, Y and W-135) conjugate vaccine (MCV4P) 2011-12-04 00:00:00 Completed [facility] TDAP 2011-12-04 00:00:00 Completed [facility] Varicella (varivax)(chicken pox) 2011-12-04 00:00:00 Completed [facility] Meningococcal Polysaccharide (groups A, C, Y and W-135) conjugate vaccine (MCV4P) 2011-12-04 [facility] Varicella (varivax)(chicken pox) 2011-12-04 00:00:00 Completed [facility] Meningococcal Polysaccharide (groups A, C, Y and W-135) conjugate vaccine (MCV4P) 2011-12-04 00:00[facility] Varicella (varivax)(chicken pox) 2011-12-04 00:00:00 Completed [facility] Meningococcal Polysaccharide (groups A, C, Y and W-135) conjugate vaccine (MCV4P) 2011-12-04 00:00:00 Completed [facility] TDAP 2011-12-04 00:00:00 Completed [facility] Varicella (varivax)(chicken pox) 2011-12-04 00:00:00 Completed [facility] Meningococcal Polysaccharide (groups A, C, Y and W-135) conjugate vaccine (MCV4P) 2011-12-04 00:00:00 Completed [facility] TDAP 2011-12-04 00:00:00 Completed [facility] Varicella (varivax)(chicken pox) 2011-12-04 00:00:00 Completed [facility] Meningococcal Polysaccharide (groups A, C, Y and W-135) conjugate vaccine (MCV4P) 2011-12-04 00:00:00 Completed [facility] TDAP 2011-12-04 00:00:00 Completed [facility] Varicella (varivax)(chicken pox) 2011-12-04 00:00:00 Completed [facility] Meningococcal Polysaccharide (groups A, C, Y and W-135) conjugate vaccine (MCV4P) 2011-12-04 00:00:00 Completed [facility] TDAP 2011-12-04 00:00:00 Completed [facility] Varicella (varivax)(chicken pox) 2011-12-04 00:00:00 Completed [facility] Meningococcal Polysaccharide (groups A, C, Y and W-135) conjugate vaccine (MCV4P) 2011-12-04 00:00:00 Completed [facility] TDAP 2011-12-04 00:00:00 Completed [facility] Varicella (varivax)(chicken pox) 2011-12-04 00:00:00 Completed [facility] Meningococcal Polysaccharide (groups A, C, Y and W-135) conjugate vaccine (MCV4P) 2011-12-04 00:00:00 Completed [facility] TDAP 2011-12-04 00:00:00 Completed [facility] Varicella (varivax)(chicken pox) 2011-12-04 00:00:00 Completed [facility] Meningococcal Polysaccharide (groups A, C, Y and W-135) conjugate vaccine (MCV4P) 2011-12-04 00:00:00 Completed [facility] TDAP 2011-12-04 00:00:00 Completed [facility] Varicella (varivax)(chicken pox) 2011-12-04 00:00:00 Completed [facility] Meningococcal Polysaccharide (groups A, C, Y and W-135) conjugate vaccine (MCV4P) 2011-12-04 00:00:00 Completed TDAP 2011-12-04 00:00:00 Completed Varicella (varivax)(chicken pox) 2011-12-04 00:00:00 Completed DTaP, Unspecified Formulation 2003-04-02 00:00:00 Completed [facility] MMR 2003-04-02 00:00:00 Completed [facility] IPV 2003-04-02 00:00:00 Completed [facility] DTaP, Unspecified Formulation 2003-04-02 00:00:00 Completed [facility] MMR 2003-04-02 00:00:00 Completed [facility] IPV 2003-04-02 00:00:00 Completed [facility] DTaP, Unspecified Formulation 2003-04-02 00:00:00 Completed [facility] MMR 2003-04-02 00:00:00 Completed [facility] IPV 2003-04-02 00:00:00 Completed [facility] DTaP, Unspecified Formulation 2003-04-02 00:00:00 Completed [facility] MMR 2003-04-02 00:00:00 Completed [facility] IPV 2003-04-02 00:00:00 Completed [facility] DTaP, Unspecified Formulation 2003-04-02 00:00:00 Completed [facility] MMR 2003-04-02 00:00:00 Completed [facility] IPV 2003-04-02 00:00:00 Completed [facility] DTaP, Unspecified Formulation 2003-04-02 00:00:00 Completed [facility] MMR 2003-04-02 00:00:00 Completed [facility] IPV 2003-04-02 00:00:00 Completed [facility] DTaP, Unspecified Formulation 2003-04-02 00:00:00 Completed [facility] MMR 2003-04-02 00:00:00 Completed [facility] IPV 2003-04-02 00:00:00 Completed [facility] DTaP, Unspecified Formulation 2003-04-02 00:00:00 Completed [facility] MMR 2003-04-02 00:00:00 Completed [facility] IPV 2003-04-02 00:00:00 Completed [facility] DTaP, Unspecified Formulation 2003-04-02 00:00:00 Completed [facility] MMR 2003-04-02 00:00:00 Completed [facility] IPV 2003-04-02 00:00:00 Completed [facility] DTaP, Unspecified Formulation 2003-04-02 00:00:00 Completed [facility] MMR 2003-04-02 00:00:00 Completed [facility] IPV 2003-04-02 00:00:00 Completed [facility] DTaP, Unspecified Formulation 2003-04-02 00:00:00 Completed [facility] MMR 2003-04-02 00:00:00 Completed [facility] IPV 2003-04-02 00:00:00 Completed [facility] DTaP, Unspecified Formulation 2003-04-02 00:00:00 Completed [facility] MMR 2003-04-02 00:00:00 Completed [facility] IPV 2003-04-02 00:00:00 Completed [facility] DTaP, Unspecified Formulation 2003-04-02 00:00:00 Completed [facility] MMR 2003-04-02 00:00:00 Completed [facility] IPV 2003-04-02 00:00:00 Completed [facility] DTaP, Unspecified Formulation 2003-04-02 00:00:00 Completed [facility] MMR 2003-04-02 00:00:00 Completed [facility] IPV 2003-04-02 00:00:00 Completed [facility] DTaP, Unspecified Formulation 2003-04-02 00:00:00 Completed [facility] MMR 2003-04-02 00:00:00 Completed [facility] IPV 2003-04-02 00:00:00 Completed [facility] DTaP, Unspecified Formulation 2003-04-02 00:00:00 Completed [facility] MMR 2003-04-02 00:00:00 Completed [facility] IPV 2003-04-02 00:00:00 Completed [facility] DTaP, Unspecified Formulation 2003-04-02 00:00:00 Completed [facility] MMR 2003-04-02 00:00:00 Completed [facility] IPV 2003-04-02 00:00:00 Completed [facility] DTaP, Unspecified Formulation 2003-04-02 00:00:00 Completed [facility] MMR 2003-04-02 00:00:00 Completed [facility] IPV 2003-04-02 00:00:00 Completed [facility] DTaP, Unspecified Formulation 2003-04-02 00:00:00 Completed [facility] MMR 2003-04-02 00:00:00 Completed [facility] IPV 2003-04-02 00:00:00 Completed [facility] DTaP, Unspecified Formulation 2003-04-02 00:00:00 Completed [facility] MMR 2003-04-02 00:00:00 Completed [facility] IPV 2003-04-02 00:00:00 Completed [facility] DTaP, Unspecified Formulation 2003-04-02 00:00:00 Completed MMR 2003-04-02 00:00:00 Completed IPV 2003-04-02 00:00:00 Completed DTaP, Unspecified Formulation 2000-11-04 00:00:00 Completed [facility] DTaP, Unspecified Formulation 2000-11-04 00:00:00 Completed [facility] DTaP, Unspecified Formulation 2000-11-04 00:00:00 Completed [facility] DTaP, Unspecified Formulation 2000-11-04 00:00:00 Completed [facility] DTaP, Unspecified Formulation 2000-11-04 00:00:00 Completed [facility] DTaP, Unspecified Formulation 2000-11-04 00:00:00 Completed [facility] DTaP, Unspecified Formulation 2000-11-04 00:00:00 Completed [facility] DTaP, Unspecified Formulation 2000-11-04 00:00:00 Completed [facility] DTaP, Unspecified Formulation 2000-11-04 00:00:00 Completed [facility] DTaP, Unspecified Formulation 2000-11-04 00:00:00 Completed [facility] DTaP, Unspecified Formulation 2000-11-04 00:00:00 Completed [facility] DTaP, Unspecified Formulation 2000-11-04 00:00:00 Completed [facility] DTaP, Unspecified Formulation 2000-11-04 00:00:00 Completed [facility] DTaP, Unspecified Formulation 2000-11-04 00:00:00 Completed [facility] DTaP, Unspecified Formulation 2000-11-04 00:00:00 Completed [facility] DTaP, Unspecified Formulation 2000-11-04 00:00:00 Completed [facility] DTaP, Unspecified Formulation 2000-11-04 00:00:00 Completed [facility] DTaP, Unspecified Formulation 2000-11-04 00:00:00 Completed [facility] DTaP, Unspecified Formulation 2000-11-04 00:00:00 Completed [facility] DTaP, Unspecified Formulation 2000-11-04 00:00:00 Completed [facility] DTaP, Unspecified Formulation 2000-11-04 00:00:00 Completed Haemophilus influenzae type b vaccine, conjugate unspecified formulation 2000-06-09 00:00:00 Completed [facility] MMR 2000-06-09 00:00:00 Completed [facility] Haemophilus influenzae type b vaccine, conjugate unspecified formulation 2000-06-09 00:00:00 Completed [facility] MMR 2000-06-09 00:00:00 Completed [facility] Haemophilus influenzae type b vaccine, conjugate unspecified formulation 2000-06-09 00:00:00 Completed [facility] MMR 2000-06-09 00:00:00 Completed [facility] Haemophilus influenzae type b vaccine, conjugate unspecified formulation 2000-06-09 00:00:00 Completed [facility] MMR 2000-06-09 00:00:00 Completed [facility] Haemophilus influenzae type b vaccine, conjugate unspecified formulation 2000-06-09 00:00:00 Completed [facility] MMR 2000-06-09 00:00:00 Completed [facility] Haemophilus influenzae type b vaccine, conjugate unspecified formulation 2000-06-09 00:00:00 Completed [facility] MMR 2000-06-09 00:00:00 Completed [facility] Haemophilus influenzae type b vaccine, conjugate unspecified formulation 2000-06-09 00:00:00 Completed [facility] MMR 2000-06-09 00:00:00 Completed [facility] Haemophilus influenzae type b vaccine, conjugate unspecified formulation 2000-06-09 00:00:00 Completed [facility] MMR 2000-06-09 00:00:00 Completed [facility] Haemophilus influenzae type b vaccine, conjugate unspecified formulation 2000-06-09 00:00:00 Completed [facility] MMR 2000-06-09 00:00:00 Completed [facility] Haemophilus influenzae type b vaccine, conjugate unspecified formulation 2000-06-09 00:00:00 Completed [facility] MMR 2000-06-09 00:00:00 Completed [facility] Haemophilus influenzae type b vaccine, conjugate unspecified formulation 2000-06-09 00:00:00 Completed [facility] MMR 2000-06-09 00:00:00 Completed [facility] Haemophilus influenzae type b vaccine, conjugate unspecified formulation 2000-06-09 00:00:00 Completed [facility] MMR 2000-06-09 00:00:00 Completed [facility] Haemophilus influenzae type b vaccine, conjugate unspecified formulation 2000-06-09 00:00:00 Completed [facility] MMR 2000-06-09 00:00:00 Completed [facility] Haemophilus influenzae type b vaccine, conjugate unspecified formulation 2000-06-09 00:00:00 Completed [facility] MMR 2000-06-09 00:00:00 Completed [facility] Haemophilus influenzae type b vaccine, conjugate unspecified formulation 2000-06-09 00:00:00 Completed [facility] MMR 2000-06-09 00:00:00 Completed [facility] Haemophilus influenzae type b vaccine, conjugate unspecified formulation 2000-06-09 00:00:00 Completed [facility] MMR 2000-06-09 00:00:00 Completed [facility] Haemophilus influenzae type b vaccine, conjugate unspecified formulation 2000-06-09 00:00:00 Completed [facility] MMR 2000-06-09 00:00:00 Completed [facility] Haemophilus influenzae type b vaccine, conjugate unspecified formulation 2000-06-09 00:00:00 Completed [facility] MMR 2000-06-09 00:00:00 Completed [facility] Haemophilus influenzae type b vaccine, conjugate unspecified formulation 2000-06-09 00:00:00 Completed [facility] MMR 2000-06-09 00:00:00 Completed [facility] Haemophilus influenzae type b vaccine, conjugate unspecified formulation 2000-06-09 00:00:00 Completed [facility] MMR 2000-06-09 00:00:00 Completed [facility] Haemophilus influenzae type b vaccine, conjugate unspecified formulation 2000-06-09 00:00:00 Completed MMR 2000-06-09 00:00:00 Completed IPV 2000-03-23 00:00:00 Completed [facility] Varicella (varivax)(chicken pox) 2000-03-23 00:00:00 Completed [facility] IPV 2000-03-23 00:00:00 Completed [facility] Varicella (varivax)(chicken pox) 2000-03-23 00:00:00 Completed [facility] IPV 2000-03-23 00:00:00 Completed [facility] Varicella (varivax)(chicken pox) 2000-03-23 00:00:00 Completed [facility] IPV 2000-03-23 00:00:00 Completed [facility] Varicella (varivax)(chicken pox) 2000-03-23 00:00:00 Completed [facility] IPV 2000-03-23 00:00:00 Completed [facility] Varicella (varivax)(chicken pox) 2000-03-23 00:00:00 Completed [facility] IPV 2000-03-23 00:00:00 Completed [facility] Varicella (varivax)(chicken pox) 2000-03-23 00:00:00 Completed [facility] IPV 2000-03-23 00:00:00 Completed [facility] Varicella (varivax)(chicken pox) 2000-03-23 00:00:00 Completed [facility] IPV 2000-03-23 00:00:00 Completed [facility] Varicella (varivax)(chicken pox) 2000-03-23 00:00:00 Completed [facility] IPV 2000-03-23 00:00:00 Completed [facility] Varicella (varivax)(chicken pox) 2000-03-23 00:00:00 Completed [facility] IPV 2000-03-23 00:00:00 Completed [facility] Varicella (varivax)(chicken pox) 2000-03-23 00:00:00 Completed [facility] IPV 2000-03-23 00:00:00 Completed [facility] Varicella (varivax)(chicken pox) 2000-03-23 00:00:00 Completed [facility] IPV 2000-03-23 00:00:00 Completed [facility] Varicella (varivax)(chicken pox) 2000-03-23 00:00:00 Completed [facility] IPV 2000-03-23 00:00:00 Completed [facility] Varicella (varivax)(chicken pox) 2000-03-23 00:00:00 Completed [facility] IPV 2000-03-23 00:00:00 Completed [facility] Varicella (varivax)(chicken pox) 2000-03-23 00:00:00 Completed [facility] IPV 2000-03-23 00:00:00 Completed [facility] Varicella (varivax)(chicken pox) 2000-03-23 00:00:00 Completed [facility] IPV 2000-03-23 00:00:00 Completed [facility] Varicella (varivax)(chicken pox) 2000-03-23 00:00:00 Completed [facility] IPV 2000-03-23 00:00:00 Completed [facility] Varicella (varivax)(chicken pox) 2000-03-23 00:00:00 Completed [facility] IPV 2000-03-23 00:00:00 Completed [facility] Varicella (varivax)(chicken pox) 2000-03-23 00:00:00 Completed [facility] IPV 2000-03-23 00:00:00 Completed [facility] Varicella (varivax)(chicken pox) 2000-03-23 00:00:00 Completed [facility] IPV 2000-03-23 00:00:00 Completed [facility] Varicella (varivax)(chicken pox) 2000-03-23 00:00:00 Completed [facility] IPV 2000-03-23 00:00:00 Completed Varicella (varivax)(chicken pox) 2000-03-23 00:00:00 Completed Hep B, Adol or Pedi Dosage 1999 00:00:00 Completed [facility] Hep B, Adol or Pedi Dosage 1999 00:00:00 Completed [facility] Hep B, Adol or Pedi Dosage 1999 00:00:00 Completed [facility] Hep B, Adol or Pedi Dosage 1999 00:00:00 Completed [facility] Hep B, Adol or Pedi Dosage 1999 00:00:00 Completed [facility] Hep B, Adol or Pedi Dosage 1999 00:00:00 Completed [facility] Hep B, Adol or Pedi Dosage 1999 00:00:00 Completed [facility] Hep B, Adol or Pedi Dosage 1999 00:00:00 Completed [facility] Hep B, Adol or Pedi Dosage 1999 00:00:00 Completed [facility] Hep B, Adol or Pedi Dosage 1999 00:00:00 Completed [facility] Hep B, Adol or Pedi Dosage 1999 00:00:00 Completed [facility] Hep B, Adol or Pedi Dosage 1999 00:00:00 Completed [facility] Hep B, Adol or Pedi Dosage 1999 00:00:00 Completed [facility] Hep B, Adol or Pedi Dosage 1999 00:00:00 Completed [facility] Hep B, Adol or Pedi Dosage 1999 00:00:00 Completed [facility] Hep B, Adol or Pedi Dosage 1999 00:00:00 Completed [facility] Hep B, Adol or Pedi Dosage 1999 00:00:00 Completed [facility] Hep B, Adol or Pedi Dosage 1999 00:00:00 Completed [facility] Hep B, Adol or Pedi Dosage 1999 00:00:00 Completed [facility] Hep B, Adol or Pedi Dosage 1999 00:00:00 Completed [facility] Hep B, Adol or Pedi Dosage 1999 00:00:00 Completed DTaP, Unspecified Formulation 1999 00:00:00 Completed [facility] Hep B, Adol or Pedi Dosage 1999 00:00:00 Completed [facility] Haemophilus influenzae type b vaccine, conjugate unspecified formulation 1999 00:00:00 Completed [facility] DTaP, Unspecified Formulation 1999 00:00:00 Completed [facility] Hep B, Adol or Pedi Dosage 1999 00:00:00 Completed [facility] Haemophilus influenzae type b vaccine, conjugate unspecified formulation 1999 00:00:00 Completed [facility] DTaP, Unspecified Formulation 1999 00:00:00 Completed [facility] Hep B, Adol or Pedi Dosage 1999 00:00:00 Completed [facility] Haemophilus influenzae type b vaccine, conjugate unspecified formulation 1999 00:00:00 Completed [facility] DTaP, Unspecified Formulation 1999 00:00:00 Completed [facility] Hep B, Adol or Pedi Dosage 1999 00:00:00 Completed [facility] Haemophilus influenzae type b vaccine, conjugate unspecified formulation 1999 00:00:00 Completed [facility] DTaP, Unspecified Formulation 1999 00:00:00 Completed [facility] Hep B, Adol or Pedi Dosage 1999 00:00:00 Completed [facility] Haemophilus influenzae type b vaccine, conjugate unspecified formulation 1999 00:00:00 Completed [facility] DTaP, Unspecified Formulation 1999 00:00:00 Completed [facility] Hep B, Adol or Pedi Dosage 1999 00:00:00 Completed [facility] Haemophilus influenzae type b vaccine, conjugate unspecified formulation 1999 00:00:00 Completed [facility] DTaP, Unspecified Formulation 1999 00:00:00 Completed [facility] Hep B, Adol or Pedi Dosage 1999 00:00:00 Completed [facility] Haemophilus influenzae type b vaccine, conjugate unspecified formulation 1999 00:00:00 Completed [facility] DTaP, Unspecified Formulation 1999 00:00:00 Completed [facility] Hep B, Adol or Pedi Dosage 1999 00:00:00 [facility] [place] Haemophilus influenzae type b vaccine, conjugate unspecified formulation 1999 00:00:00 Completed [facility] DTaP, Unspecified Formulation 1999 00:00:00 Completed [facility] Hep B, Adol or Pedi Dosage 1999 00:00:00 Completed [facility] Haemophilus influenzae type b vaccine, conjugate unspecified formulation 1999 00:00:00 Completed [facility] DTaP, Unspecified Formulation 1999 00:00:00 Completed [facility] Hep B, Adol or Pedi Dosage 1999 00:00:00 Completed [facility] Haemophilus influenzae type b vaccine, conjugate unspecified formulation 1999 00:00:00 Completed [facility] DTaP, Unspecified Formulation 1999 00:00:00 Completed [facility] Hep B, Adol or Pedi Dosage 1999 00:00:00 Completed [facility] Haemophilus influenzae type b vaccine, conjugate unspecified formulation 1999 00:00:00 Completed [facility] DTaP, Unspecified Formulation 1999 00:00:00 Completed [facility] Hep B, Adol or Pedi Dosage 1999 00:00:00 Completed [facility] Haemophilus influenzae type b vaccine, conjugate unspecified formulation 1999 00:00:00 Completed [facility] DTaP, Unspecified Formulation 1999 00:00:00 Completed [facility] Hep B, Adol or Pedi Dosage 1999 00:00:00 Completed [facility] Haemophilus influenzae type b vaccine, conjugate unspecified formulation 1999 00:00:00 Completed [facility] DTaP, Unspecified Formulation 1999 00:00:00 Completed [facility] Hep B, Adol or Pedi Dosage 1999 00:00:00 Completed [facility] Haemophilus influenzae type b vaccine, conjugate unspecified formulation 1999 00:00:00 Completed [facility] DTaP, Unspecified Formulation 1999 00:00:00 Completed [facility] Hep B, Adol or Pedi Dosage 1999 00:00:00 Completed [facility] Haemophilus influenzae type b vaccine, conjugate unspecified formulation 1999 00:00:00 Completed [facility] DTaP, Unspecified Formulation 1999 00:00:00 Completed [facility] Hep B, Adol or Pedi Dosage 1999 00:00:00 Completed [facility] Haemophilus influenzae type b vaccine, conjugate unspecified formulation 1999 00:00:00 Completed [facility] DTaP, Unspecified Formulation 1999 00:00:00 Completed [facility] Hep B, Adol or Pedi Dosage 1999 00:00:00 Completed [facility] Haemophilus influenzae type b vaccine, conjugate unspecified formulation 1999 00:00:00 Completed [facility] DTaP, Unspecified Formulation 1999 00:00:00 Completed [facility] Hep B, Adol or Pedi Dosage 1999 00:00:00 Completed [facility] Haemophilus influenzae type b vaccine, conjugate unspecified formulation 1999 00:00:00 Completed [facility] DTaP, Unspecified Formulation 1999 00:00:00 Completed [facility] Hep B, Adol or Pedi Dosage 1999 00:00:00 Completed [facility] Haemophilus influenzae type b vaccine, conjugate unspecified formulation 1999 00:00:00 Completed [facility] DTaP, Unspecified Formulation 1999 00:00:00 Completed [facility] Hep B, Adol or Pedi Dosage 1999 00:00:00 Completed [facility] Haemophilus influenzae type b vaccine, conjugate unspecified formulation 1999 00:00:00 Completed [facility] DTaP, Unspecified Formulation 1999 00:00:00 Completed Hep B, Adol or Pedi Dosage 1999 00:00:00 Completed Haemophilus influenzae type b vaccine, conjugate unspecified formulation 1999 00:00:00 Completed DTaP, Unspecified Formulation 1999 00:00:00 Completed [facility] Haemophilus influenzae type b vaccine, conjugate unspecified formulation 1999 00:00:00 Completed [facility] IPV 1999 00:00:00 Completed [facility] DTaP, Unspecified Formulation 1999 00:00:00 Completed [facility] Haemophilus influenzae type b vaccine, conjugate unspecified formulation 1999 00:00:00 Completed [facility] IPV 1999 00:00:00 Completed [facility] DTaP, Unspecified Formulation 1999 00:00:00 Completed [facility] Haemophilus influenzae type b vaccine, conjugate unspecified formulation 1999 00:00:00 Completed [facility] IPV 1999 00:00:00 Completed [facility] DTaP, Unspecified Formulation 1999 00:00:00 Completed [facility] Haemophilus influenzae type b vaccine, conjugate unspecified formulation 1999 00:00:00 Completed [facility] IPV 1999 00:00:00 Completed [facility] DTaP, Unspecified Formulation 1999 00:00:00 Completed [facility] Haemophilus influenzae type b vaccine, conjugate unspecified formulation 1999 00:00:00 Completed [facility] IPV 1999 00:00:00 Completed [facility] DTaP, Unspecified Formulation 1999 00:00:00 Completed [facility] Haemophilus influenzae type b vaccine, conjugate unspecified formulation 1999 00:00:00 Completed [facility] IPV 1999 00:00:00 Completed [facility] DTaP, Unspecified Formulation 1999 00:00:00 Completed [facility] Haemophilus influenzae type b vaccine, conjugate unspecified formulation 1999 00:00:00 Completed [facility] IPV 1999 00:00:00 Completed [facility] DTaP, Unspecified Formulation 1999 00:00:00 Completed [facility] Haemophilus influenzae type b vaccine, conjugate unspecified formulation 1999 00:00:00 Completed [facility] IPV 1999 00:00:00 Completed [facility] DTaP, Unspecified Formulation 1999 00:00:00 Completed [facility] Haemophilus influenzae type b vaccine, conjugate unspecified formulation 1999 00:00:00 Completed [facility] IPV 1999 00:00:00 Completed [facility] DTaP, Unspecified Formulation 1999 00:00:00 Completed [facility] Haemophilus influenzae type b vaccine, conjugate unspecified formulation 1999 00:00:00 Completed [facility] IPV 1999 00:00:00 Completed [facility] DTaP, Unspecified Formulation 1999 00:00:00 Completed [facility] Haemophilus influenzae type b vaccine, conjugate unspecified formulation 1999 00:00:00 Completed [facility] IPV 1999 00:00:00 Completed [facility] DTaP, Unspecified Formulation 1999 00:00:00 Completed [facility] Haemophilus influenzae type b vaccine, conjugate unspecified formulation 1999 00:00:00 Completed [facility] IPV 1999 00:00:00 Completed [facility] DTaP, Unspecified Formulation 1999 00:00:00 Completed [facility] Haemophilus influenzae type b vaccine, conjugate unspecified formulation 1999 00:00:00 Completed [facility] IPV 1999 00:00:00 Completed [facility] DTaP, Unspecified Formulation 1999 00:00:00 Completed [facility] Haemophilus influenzae type b vaccine, conjugate unspecified formulation 1999 00:00:00 Completed [facility] IPV 1999 00:00:00 Completed [facility] DTaP, Unspecified Formulation 1999 00:00:00 Completed [facility] Haemophilus influenzae type b vaccine, conjugate unspecified formulation 1999 00:00:00 Completed [facility] IPV 1999 00:00:00 Completed [facility] DTaP, Unspecified Formulation 1999 00:00:00 Completed [facility] Haemophilus influenzae type b vaccine, conjugate unspecified formulation 1999 00:00:00 Completed [facility] IPV 1999 00:00:00 Completed [facility] DTaP, Unspecified Formulation 1999 00:00:00 Completed [facility] Haemophilus influenzae type b vaccine, conjugate unspecified formulation 1999 00:00:00 Completed [facility] IPV 1999 00:00:00 Completed [facility] DTaP, Unspecified Formulation 1999 00:00:00 Completed [facility] Haemophilus influenzae type b vaccine, conjugate unspecified formulation 1999 00:00:00 Completed [facility] IPV 1999 00:00:00 Completed [facility] DTaP, Unspecified Formulation 1999 00:00:00 Completed [facility] Haemophilus influenzae type b vaccine, conjugate unspecified formulation 1999 00:00:00 Completed [facility] IPV 1999 00:00:00 Completed [facility] DTaP, Unspecified Formulation 1999 00:00:00 Completed [facility] Haemophilus influenzae type b vaccine, conjugate unspecified formulation 1999 00:00:00 Completed [facility] IPV 1999 00:00:00 Completed [facility] DTaP, Unspecified Formulation 1999 00:00:00 Completed [facility] Haemophilus influenzae type b vaccine, conjugate unspecified formulation 1999 00:00:00 Completed IPV 1999 00:00:00 Completed IPV 1999 00:00:00 Completed [facility] IPV 1999 00:00:00 Completed [facility] IPV 1999 00:00:[address] [facility] IPV 1999 00:00:00 Completed [facility] IPV 1999 00[facility]00:[address] [facility] IPV 1999 00:00:[address] [facility] IPV 1999 00:00:[address] [facility] IPV 1999 00:00:00 Completed [facility] IPV 1999 00:00:00 Completed [facility] IPV 1999 00:00:[address] [facility] IPV 1999 00:00:00 Completed [facility] IPV 1999 00:00:00 Completed [facility] IPV 1999 00:00:00 Completed [facility] IPV 1999 00:00:00 Completed [facility] IPV 1999 00:00:00 Completed [facility] IPV 1999 00:00:00 Completed [facility] IPV 1999 00:00:00 Completed [facility] IPV 1999 00:00:00 Completed [facility] IPV 1999 00:00:00 Completed [facility] IPV 1999 00:00:00 Completed [facility] IPV 1999 00:00:00 Completed TDAP Unknown Completed [facility] DTaP, Unspecified Formulation Unknown Completed [facility] Influenza Virus Vaccine Quad .5 mL IM 6+ MO (FLUZONE/FLULAVAL/FL UARIX) Unknown Completed [facility] Hep B, Adol or Pedi Dosage Unknown Completed [facility] Haemophilus influenzae type b vaccine, conjugate unspecified formulation Unknown Completed [facility] HPV Unknown Completed [facility] Meningococcal Polysaccharide (groups A, C, Y and W-135) conjugate vaccine (MCV4P) Unknown Completed [facility] Unknown Completed [facility] IPV Unknown Completed [facility] Varicella (varivax)(chicken pox) Unknown Completed [facility] TDAP Unknown Completed [facility] DTaP, Unspecified Formulation Unknown Completed [facility] Influenza Virus Vaccine Quad .5 mL IM 6+ MO (FLUZONE/FLULAVAL/FL UARIX) Unknown Completed [facility] Hep B, Adol or Pedi Dosage Unknown Completed [facility] Haemophilus influenzae type b vaccine, conjugate unspecified formulation Unknown Completed [facility] HPV Unknown Completed [facility] Meningococcal Polysaccharide (groups A, C, Y and W-135) conjugate vaccine (MCV4P) Unknown Completed [facility] MMR Unknown Completed [facility] IPV Unknown Completed [facility] Varicella (varivax)(chicken pox) Unknown Completed [facility] TDAP Unknown Completed [facility] DTaP, Unspecified Formulation Unknown Completed [facility] Influenza Virus Vaccine Quad .5 mL IM 6+ MO (FLUZONE/FLULAVAL/FL UARIX) Unknown Completed [facility] Hep B, Adol or Pedi Dosage Unknown Completed [facility] Haemophilus influenzae type b vaccine, conjugate unspecified formulation Unknown Completed [facility] HPV Unknown Completed [facility] Meningococcal Polysaccharide (groups A, C, Y and W-135) conjugate vaccine (MCV4P) Unknown Completed [facility] MMR Unknown Completed [facility] IPV Unknown Completed [facility] Varicella (varivax)(chicken pox) Unknown Completed [facility] TDAP Unknown Completed [facility] DTaP, Unspecified Formulation Unknown Completed [facility] Influenza Virus Vaccine Quad .5 mL IM 6+ MO (FLUZONE/FLULAVAL/FL UARIX) Unknown Completed [facility] Hep B, Adol or Pedi Dosage Unknown Completed [facility] Haemophilus influenzae type b vaccine, conjugate unspecified formulation Unknown Completed [facility] HPV Unknown Completed [facility] Meningococcal Polysaccharide (groups A, C, Y and W-135) conjugate vaccine (MCV4P) Unknown Completed [facility] MMR Unknown Completed [facility] IPV Unknown Completed [facility] Varicella (varivax)(chicken pox) Unknown Completed [facility] DTaP, Unspecified Formulation Unknown Completed [facility] Influenza Virus Vaccine Quad .5 mL IM 6+ MO (FLUZONE/FLULAVAL/FL UARIX) Unknown Completed [facility] Hep B, Adol or Pedi Dosage Unknown Completed [facility] Haemophilus influenzae type b vaccine, conjugate unspecified formulation Unknown Completed [facility] HPV Unknown Completed [facility] Meningococcal Polysaccharide (groups A, C, Y and W-135) conjugate vaccine (MCV4P) Unknown Completed [facility] MMR Unknown Completed [facility] IPV Unknown Completed [facility] TDAP Unknown Completed [facility] Varicella (varivax)(chicken pox) Unknown Completed [facility] DTaP, Unspecified Formulation Unknown Completed [facility] Influenza Virus Vaccine Quad .5 mL IM 6+ MO (FLUZONE/FLULAVAL/FL UARIX) Unknown Completed [facility] Hep B, Adol or Pedi Dosage Unknown Completed [facility] Haemophilus influenzae type b vaccine, conjugate unspecified formulation Unknown Completed [facility] HPV Unknown Completed [facility] Meningococcal Polysaccharide (groups A, C, Y and W-135) conjugate vaccine (MCV4P) Unknown Completed [facility] MMR Unknown Completed [facility] IPV Unknown Completed [facility] TDAP Unknown Completed [facility] Varicella (varivax)(chicken pox) Unknown Completed [facility] TDAP Unknown Completed [facility] DTaP, Unspecified Formulation Unknown Completed [facility] Influenza Virus Vaccine Quad .5 mL IM 6+ MO (FLUZONE/FLULAVAL/FL UARIX) Unknown Completed [facility] Hep B, Adol or Pedi Dosage Unknown Completed [facility] Haemophilus influenzae type b vaccine, conjugate unspecified formulation Unknown Completed [facility] HPV Unknown Completed [facility] Meningococcal Polysaccharide (groups A, C, Y and W-135) conjugate vaccine (MCV4P) Unknown Completed [facility] MMR Unknown Completed [facility] IPV Unknown Completed [facility] Varicella (varivax)(chicken pox) Unknown Completed [facility] TDAP Unknown Completed [facility] DTaP, Unspecified Formulation Unknown Completed [facility] Influenza Virus Vaccine Quad .5 mL IM 6+ MO (FLUZONE/FLULAVAL/FL UARIX) Unknown Completed [facility] Hep B, Adol or Pedi Dosage Unknown Completed [facility] Haemophilus influenzae type b vaccine, conjugate unspecified formulation Unknown Completed [facility] HPV Unknown Completed [facility] Meningococcal Polysaccharide (groups A, C, Y and W-135) conjugate vaccine (MCV4P) Unknown Completed [facility] MMR Unknown Completed [facility] IPV Unknown Completed [facility] Varicella (varivax)(chicken pox) Unknown Completed [facility] TDAP Unknown Completed [facility] DTaP, Unspecified Formulation Unknown Completed [facility] Influenza Virus Vaccine Quad .5 mL IM 6+ MO (FLUZONE/FLULAVAL/FL UARIX) Unknown Completed [facility] Hep B, Adol or Pedi Dosage Unknown Completed [facility] Haemophilus influenzae type b vaccine, conjugate unspecified formulation Unknown Completed [facility] HPV Unknown Completed [facility] Meningococcal Polysaccharide (groups A, C, Y and W-135) conjugate vaccine (MCV4P) Unknown Completed [facility] MMR Unknown Completed [facility] IPV Unknown Completed [facility] Varicella (varivax)(chicken pox) Unknown Completed [facility] TDAP Unknown Completed [facility] DTaP, Unspecified Formulation Unknown Completed [facility] Influenza Virus Vaccine Quad .5 mL IM 6+ MO (FLUZONE/FLULAVAL/FL UARIX) Unknown Completed [facility] Hep B, Adol or Pedi Dosage Unknown Completed [facility] Haemophilus influenzae type b vaccine, conjugate unspecified formulation Unknown Completed [facility] HPV Unknown Completed [facility] Meningococcal Polysaccharide (groups A, C, Y and W-135) conjugate vaccine (MCV4P) Unknown Completed [facility] MMR Unknown Completed [facility] IPV Unknown Completed [facility] Varicella (varivax)(chicken pox) Unknown Completed [facility] TDAP Unknown Completed [facility] DTaP, Unspecified Formulation Unknown Completed [facility] Influenza Virus Vaccine Quad .5 mL IM 6+ MO (FLUZONE/FLULAVAL/FL UARIX) Unknown Completed [facility] Hep B, Adol or Pedi Dosage Unknown Completed [facility] Haemophilus influenzae type b vaccine, conjugate unspecified formulation Unknown Completed [facility] HPV Unknown Completed [facility] Meningococcal Polysaccharide (groups A, C, Y and W-135) conjugate vaccine (MCV4P) Unknown Completed [facility] MMR Unknown Completed [facility] IPV Unknown Completed [facility] Varicella (varivax)(chicken pox) Unknown Completed [facility] TDAP Unknown Completed [facility] DTaP, Unspecified Formulation Unknown Completed [facility] Influenza Virus Vaccine Quad .5 mL IM 6+ MO (FLUZONE/FLULAVAL/FL UARIX) Unknown Completed [facility] Hep B, Adol or Pedi Dosage Unknown Completed [facility] Haemophilus influenzae type b vaccine, conjugate unspecified formulation Unknown Completed [facility] HPV Unknown Completed [facility] Meningococcal Polysaccharide (groups A, C, Y and W-135) conjugate vaccine (MCV4P) Unknown Completed [facility] MMR Unknown Completed [facility] IPV Unknown Completed [facility] Varicella (varivax)(chicken pox) Unknown Completed [facility] TDAP Unknown Completed [facility] DTaP, Unspecified Formulation Unknown Completed [facility] Influenza Virus Vaccine Quad .5 mL IM 6+ MO (FLUZONE/FLULAVAL/FL UARIX) Unknown Completed [facility] Hep B, Adol or Pedi Dosage Unknown Completed [facility] Haemophilus influenzae type b vaccine, conjugate unspecified formulation Unknown Completed [facility] HPV Unknown Completed [facility] Meningococcal Polysaccharide (groups A, C, Y and W-135) conjugate vaccine (MCV4P) Unknown Completed [facility] MMR Unknown Completed [facility] IPV Unknown Completed [facility] Varicella (varivax)(chicken pox) Unknown Completed [facility] TDAP Unknown Completed [facility] DTaP, Unspecified Formulation Unknown Completed [facility] Influenza Virus Vaccine Quad .5 mL IM 6+ MO (FLUZONE/FLULAVAL/FL UARIX) Unknown Completed [facility] Hep B, Adol or Pedi Dosage Unknown Completed [facility] Haemophilus influenzae type b vaccine, conjugate unspecified formulation Unknown Completed [facility] HPV Unknown Completed [facility] Meningococcal Polysaccharide (groups A, C, Y and W-135) conjugate vaccine (MCV4P) Unknown [facility] MMR Unknown Completed [facility] IPV Unknown Completed [facility] Varicella (varivax)(chicken pox) Unknown Completed [facility] Influenza Virus Vaccine Quad .5 mL IM 6+ MO (FLUZONE/FLULAVAL/FL UARIX) Unknown Completed [facility] Meningococcal Polysaccharide (groups A, C, Y and W-135) conjugate vaccine (MCV4P) Unknown [facility] TDAP Unknown Completed [facility] DTaP, Unspecified Formulation Unknown Completed [facility] Hep B, Adol or Pedi Dosage Unknown Completed [facility] Haemophilus influenzae type b vaccine, conjugate unspecified formulation Unknown Completed [facility] HPV Unknown Completed [facility] MMR Unknown Completed [facility] IPV Unknown Completed [facility] Varicella (varivax)(chicken pox) Unknown Completed [facility] TDAP Unknown Completed [facility] DTaP, Unspecified Formulation Unknown Completed [facility] Influenza Virus Vaccine Quad .5 mL IM 6+ MO (FLUZONE/FLULAVAL/FL UARIX) Unknown Completed [facility] Hep B, Adol or Pedi Dosage Unknown Completed [facility] Haemophilus influenzae type b vaccine, conjugate unspecified formulation Unknown Completed [facility] HPV Unknown Completed [facility] Meningococcal Polysaccharide (groups A, C, Y and W-135) conjugate vaccine (MCV4P) Unknown [facility]pleted [facility] MMR Unknown Completed [facility] IPV Unknown Completed [facility] Varicella (varivax)(chicken pox) Unknown Completed [facility] TDAP Unknown Completed [facility] DTaP, Unspecified Formulation Unknown Completed [facility] Influenza Virus Vaccine Quad .5 mL IM 6+ MO (FLUZONE/FLULAVAL/FL UARIX) Unknown Completed [facility] Hep B, Adol or Pedi Dosage Unknown Completed [facility] Haemophilus influenzae type b vaccine, conjugate unspecified formulation Unknown Completed [facility] HPV Unknown Completed [facility] Meningococcal Polysaccharide (groups A, C, Y and W-135) conjugate vaccine (MCV4P) Unknown Completed [facility] MMR Unknown Completed [facility] IPV Unknown Completed [facility] Varicella (varivax)(chicken pox) Unknown Completed [facility] TDAP Unknown Completed [facility] DTaP, Unspecified Formulation Unknown Completed [facility] Influenza Virus Vaccine Quad .5 mL IM 6+ MO (FLUZONE/FLULAVAL/FL UARIX) Unknown Completed [facility] Hep B, Adol or Pedi Dosage Unknown Completed [facility] Haemophilus influenzae type b vaccine, conjugate unspecified formulation Unknown Completed [facility] HPV Unknown Completed [facility] Meningococcal Polysaccharide (groups A, C, Y and W-135) conjugate vaccine (MCV4P) Unknown Completed [facility] MMR Unknown Completed [facility] IPV Unknown Completed [facility] Varicella (varivax)(chicken pox) Unknown Completed [facility] TDAP Unknown Completed [facility] DTaP, Unspecified Formulation Unknown Completed [facility] Influenza Virus Vaccine Quad .5 mL IM 6+ MO (FLUZONE/FLULAVAL/FL UARIX) Unknown Completed [facility] Hep B, Adol or Pedi Dosage Unknown Completed [facility] Haemophilus influenzae type b vaccine, conjugate unspecified formulation Unknown Completed [facility] HPV Unknown Completed [facility] Meningococcal Polysaccharide (groups A, C, Y and W-135) conjugate vaccine (MCV4P) Unknown Completed [facility] MMR Unknown Completed [facility] IPV Unknown Completed [facility] Varicella (varivax)(chicken pox) Unknown Completed [facility] TDAP Unknown Completed [facility] DTaP, Unspecified Formulation Unknown Completed [facility] Influenza Virus Vaccine Quad .5 mL IM 6+ MO (FLUZONE/FLULAVAL/FL UARIX) Unknown Completed [facility] Hep B, Adol or Pedi Dosage Unknown Completed [facility] Haemophilus influenzae type b vaccine, conjugate unspecified formulation Unknown Completed [facility] HPV Unknown Completed [facility] Meningococcal Polysaccharide (groups A, C, Y and W-135) conjugate vaccine (MCV4P) Unknown Completed [facility] MMR Unknown Completed [facility] IPV Unknown Completed [facility] Varicella (varivax)(chicken pox) Unknown Completed [facility] TDAP Unknown Completed [facility] DTaP, Unspecified Formulation Unknown Completed [facility] Influenza Virus Vaccine Quad .5 mL IM 6+ MO (FLUZONE/FLULAVAL/FL UARIX) Unknown Completed [facility] Hep B, Adol or Pedi Dosage Unknown Completed [facility] Haemophilus influenzae type b vaccine, conjugate unspecified formulation Unknown Completed [facility] HPV Unknown Completed [facility] Meningococcal Polysaccharide (groups A, C, Y and W-135) conjugate vaccine (MCV4P) Unknown Completed [facility] MMR Unknown Completed [facility] IPV Unknown Completed [facility] Varicella (varivax)(chicken pox) Unknown Completed [facility] TDAP Unknown Completed [facility] DTaP, Unspecified Formulation Unknown Completed [facility] Influenza Virus Vaccine Quad .5 mL IM 6+ MO (FLUZONE/FLULAVAL/FL UARIX) Unknown Completed [facility] Hep B, Adol or Pedi Dosage Unknown Completed [facility] Haemophilus influenzae type b vaccine, conjugate unspecified formulation Unknown Completed [facility] HPV Unknown Completed [facility] Meningococcal Polysaccharide (groups A, C, Y and W-135) conjugate vaccine (MCV4P) Unknown Completed [facility] MMR Unknown Completed [facility] IPV Unknown Completed [facility] Varicella (varivax)(chicken pox) Unknown Completed [facility] TDAP Unknown Completed [facility] DTaP, Unspecified Formulation Unknown Completed [facility] Influenza Virus Vaccine Quad .5 mL IM 6+ MO (FLUZONE/FLULAVAL/FL UARIX) Unknown Completed [facility] Hep B, Adol or Pedi Dosage Unknown Completed [facility] Haemophilus influenzae type b vaccine, conjugate unspecified formulation Unknown Completed [facility] HPV Unknown Completed [facility] Meningococcal Polysaccharide (groups A, C, Y and W-135) conjugate vaccine (MCV4P) Unknown Completed [facility] MMR Unknown Completed [facility] IPV Unknown Completed [facility] Varicella (varivax)(chicken pox) Unknown Completed [facility] TDAP Unknown Completed [facility] DTaP, Unspecified Formulation Unknown Completed [facility] Influenza Virus Vaccine Quad .5 mL IM 6+ MO (FLUZONE/FLULAVAL/FL UARIX) Unknown Completed [facility] Hep B, Adol or Pedi Dosage Unknown Completed [facility] Haemophilus influenzae type b vaccine, conjugate unspecified formulation Unknown Completed [facility] HPV Unknown Completed [facility] Meningococcal Polysaccharide (groups A, C, Y and W-135) conjugate vaccine (MCV4P) Unknown Completed [facility] MMR Unknown Completed [facility] IPV Unknown Completed [facility] Varicella (varivax)(chicken pox) Unknown Completed [facility] TDAP Unknown Completed [facility] DTaP, Unspecified Formulation Unknown Completed [facility] Influenza Virus Vaccine Quad .5 mL IM 6+ MO (FLUZONE/FLULAVAL/FL UARIX) Unknown Completed [facility] Hep B, Adol or Pedi Dosage Unknown Completed [facility] Haemophilus influenzae type b vaccine, conjugate unspecified formulation Unknown Completed [facility] HPV Unknown Completed [facility] Meningococcal Polysaccharide (groups A, C, Y and W-135) conjugate vaccine (MCV4P) Unknown Completed [facility] MMR Unknown Completed [facility] IPV Unknown Completed [facility] Varicella (varivax)(chicken pox) Unknown Completed [facility] TDAP Unknown Completed [facility] DTaP, Unspecified Formulation Unknown Completed [facility] Influenza Virus Vaccine Quad .5 mL IM 6+ MO (FLUZONE/FLULAVAL/FL UARIX) Unknown Completed [facility] Hep B, Adol or Pedi Dosage Unknown Completed [facility] Haemophilus influenzae type b vaccine, conjugate unspecified formulation Unknown Completed [facility] HPV Unknown Completed [facility] Meningococcal Polysaccharide (groups A, C, Y and W-135) conjugate vaccine (MCV4P) Unknown Completed [facility] MMR Unknown Completed [facility] IPV Unknown Completed [facility] Varicella (varivax)(chicken pox) Unknown Completed [facility] TDAP Unknown Completed [facility] DTaP, Unspecified Formulation Unknown Completed [facility] Influenza Virus Vaccine Quad .5 mL IM 6+ MO (FLUZONE/FLULAVAL/FL UARIX) Unknown Completed [facility] Hep B, Adol or Pedi Dosage Unknown Completed [facility] Haemophilus influenzae type b vaccine, conjugate unspecified formulation Unknown Completed [facility] HPV Unknown Completed [facility] Meningococcal Polysaccharide (groups A, C, Y and W-135) conjugate vaccine (MCV4P) Unknown Completed [facility] MMR Unknown Completed [facility] IPV Unknown Completed [facility] Varicella (varivax)(chicken pox) Unknown Completed [facility] Influenza Virus Vaccine Quad .5 mL IM 6+ MO (FLUZONE/FLULAVAL/FL UARIX) Unknown Completed [facility] Meningococcal Polysaccharide (groups A, C, Y and W-135) conjugate vaccine (MCV4P) Unknown Completed [facility] DTaP, Unspecified Formulation Unknown Completed [facility] Hep B, Adol or Pedi Dosage Unknown Completed [facility] Haemophilus influenzae type b vaccine, conjugate unspecified formulation Unknown Completed [facility] HPV Unknown Completed [facility] MMR Unknown Completed [facility] IPV Unknown Completed [facility] TDAP Unknown Completed [facility] Varicella (varivax)(chicken pox) Unknown Completed [facility] TDAP Unknown Completed [facility] DTaP, Unspecified Formulation Unknown Completed [facility] Influenza Virus Vaccine Quad .5 mL IM 6+ MO (FLUZONE/FLULAVAL/FL UARIX) Unknown Completed [facility] Hep B, Adol or Pedi Dosage Unknown Completed [facility] Haemophilus influenzae type b vaccine, conjugate unspecified formulation Unknown Completed [facility] HPV Unknown Completed [facility] Meningococcal Polysaccharide (groups A, C, Y and W-135) conjugate vaccine (MCV4P) Unknown Completed [facility] MMR Unknown Completed [facility] IPV Unknown Completed [facility] Varicella (varivax)(chicken pox) Unknown Completed [facility] TDAP Unknown Completed [facility] DTaP, Unspecified Formulation Unknown Completed [facility] Influenza Virus Vaccine Quad .5 mL IM 6+ MO (FLUZONE/FLULAVAL/FL UARIX) Unknown Completed [facility] Hep B, Adol or Pedi Dosage Unknown Completed [facility] Haemophilus influenzae type b vaccine, conjugate unspecified formulation Unknown Completed [facility] HPV Unknown Completed [facility] Meningococcal Polysaccharide (groups A, C, Y and W-135) conjugate vaccine (MCV4P) Unknown Completed [facility] MMR Unknown Completed [facility] IPV Unknown Completed [facility] Varicella (varivax)(chicken pox) Unknown Completed [facility] Influenza Virus Vaccine Quad .5 mL IM 6+ MO (FLUZONE/FLULAVAL/FL UARIX) Unknown Completed [facility] Meningococcal Polysaccharide (groups A, C, Y and W-135) conjugate vaccine (MCV4P) Unknown Completed [facility] TDAP Unknown Completed [facility] DTaP, Unspecified Formulation Unknown Completed [facility] Influenza Virus Vaccine Quad .5 mL IM 6+ MO (FLUZONE/FLULAVAL/FL UARIX) Unknown Completed [facility] Hep B, Adol or Pedi Dosage Unknown Completed [facility] Haemophilus influenzae type b vaccine, conjugate unspecified formulation Unknown Completed [facility] HPV Unknown Completed [facility] Meningococcal Polysaccharide (groups A, C, Y and W-135) conjugate vaccine (MCV4P) Unknown Completed [facility] MMR Unknown Completed [facility] IPV Unknown Completed [facility] Varicella (varivax)(chicken pox) Unknown Completed [facility] TDAP Unknown Completed [facility] DTaP, Unspecified Formulation Unknown Completed [facility] Influenza Virus Vaccine Quad .5 mL IM 6+ MO (FLUZONE/FLULAVAL/FL UARIX) Unknown Completed [facility] Hep B, Adol or Pedi Dosage Unknown Completed [facility] Haemophilus influenzae type b vaccine, conjugate unspecified formulation Unknown Completed [facility] HPV Unknown Completed [facility] Meningococcal Polysaccharide (groups A, C, Y and W-135) conjugate vaccine (MCV4P) Unknown Completed [facility] MMR Unknown Completed [facility] IPV Unknown Completed [facility] Varicella (varivax)(chicken pox) Unknown Completed [facility] Influenza Virus Vaccine Quad .5 mL IM 6+ MO (FLUZONE/FLULAVAL/FL UARIX) Unknown Completed [facility] Meningococcal Polysaccharide (groups A, C, Y and W-135) conjugate vaccine (MCV4P) Unknown Completed [facility] TDAP Unknown Completed [facility] DTaP, Unspecified Formulation Unknown Completed [facility] Hep B, Adol or Pedi Dosage Unknown Completed [facility] Haemophilus influenzae type b vaccine, conjugate unspecified formulation Unknown Completed [facility] HPV Unknown Completed [facility] MMR Unknown Completed [facility] IPV Unknown Completed [facility] Varicella (varivax)(chicken pox) Unknown Completed [facility] TDAP Unknown Completed [facility] DTaP, Unspecified Formulation Unknown Completed [facility] Hep B, Adol or Pedi Dosage Unknown Completed [facility] Haemophilus influenzae type b vaccine, conjugate unspecified formulation Unknown Completed [facility] HPV Unknown Completed [facility] MMR Unknown Completed [facility] IPV Unknown Completed [facility] Varicella (varivax)(chicken pox) Unknown Completed [facility] TDAP Unknown Completed [facility] DTaP, Unspecified Formulation Unknown Completed [facility] Influenza Virus Vaccine Quad .5 mL IM 6+ MO (FLUZONE/FLULAVAL/FL UARIX) Unknown Completed [facility] Hep B, Adol or Pedi Dosage Unknown Completed [facility] Haemophilus influenzae type b vaccine, conjugate unspecified formulation Unknown Completed [facility] HPV Unknown Completed [facility] Meningococcal Polysaccharide (groups A, C, Y and W-135) conjugate vaccine (MCV4P) Unknown Completed [facility] MMR Unknown Completed [facility] IPV Unknown Completed [facility] Varicella (varivax)(chicken pox) Unknown Completed [facility] TDAP Unknown Completed [facility] DTaP, Unspecified Formulation Unknown Completed [facility] Influenza Virus Vaccine Quad .5 mL IM 6+ MO (FLUZONE/FLULAVAL/FL UARIX) Unknown Completed [facility] Hep B, Adol or Pedi Dosage Unknown Completed [facility] Haemophilus influenzae type b vaccine, conjugate unspecified formulation Unknown Completed [facility] HPV Unknown Completed [facility] Meningococcal Polysaccharide (groups A, C, Y and W-135) conjugate vaccine (MCV4P) Unknown Completed [facility] MMR Unknown Completed [facility] IPV Unknown Completed [facility] Varicella (varivax)(chicken pox) Unknown Completed [facility] TDAP Unknown Completed [facility] DTaP, Unspecified Formulation Unknown Completed [facility] Influenza Virus Vaccine Quad .5 mL IM 6+ MO (FLUZONE/FLULAVAL/FL UARIX) Unknown Completed [facility] Hep B, Adol or Pedi Dosage Unknown Completed [facility] Haemophilus influenzae type b vaccine, conjugate unspecified formulation Unknown Completed [facility] HPV Unknown Completed [facility] Meningococcal Polysaccharide (groups A, C, Y and W-135) conjugate vaccine (MCV4P) Unknown Completed [facility] MMR Unknown Completed [facility] IPV Unknown Completed [facility] Varicella (varivax)(chicken pox) Unknown Completed [facility] TDAP Unknown Completed [facility] DTaP, Unspecified Formulation Unknown Completed [facility] Influenza Virus Vaccine Quad .5 mL IM 6+ MO (FLUZONE/FLULAVAL/FL UARIX) Unknown Completed [facility] Hep B, Adol or Pedi Dosage Unknown Completed [facility] Haemophilus influenzae type b vaccine, conjugate unspecified formulation Unknown Completed [facility] HPV Unknown Completed [facility] Meningococcal Polysaccharide (groups A, C, Y and W-135) conjugate vaccine (MCV4P) Unknown Completed [facility] MMR Unknown Completed [facility] IPV Unknown Completed [facility] Varicella (varivax)(chicken pox) Unknown Completed [facility] TDAP Unknown Completed [facility] DTaP, Unspecified Formulation Unknown Completed [facility] Influenza Virus Vaccine Quad .5 mL IM 6+ MO (FLUZONE/FLULAVAL/FL UARIX) Unknown Completed [facility] Hep B, Adol or Pedi Dosage Unknown Completed [facility] Haemophilus influenzae type b vaccine, conjugate unspecified formulation Unknown Completed [facility] HPV Unknown Completed [facility] Meningococcal Polysaccharide (groups A, C, Y and W-135) conjugate vaccine (MCV4P) Unknown Completed [facility] MMR Unknown Completed [facility] IPV Unknown Completed [facility] Varicella (varivax)(chicken pox) Unknown Completed [facility] TDAP Unknown Completed [facility] DTaP, Unspecified Formulation Unknown Completed [facility] Influenza Virus Vaccine Quad .5 mL IM 6+ MO (FLUZONE/FLULAVAL/FL UARIX) Unknown Completed [facility] Hep B, Adol or Pedi Dosage Unknown Completed [facility] Haemophilus influenzae type b vaccine, conjugate unspecified formulation Unknown Completed [facility] HPV Unknown Completed [facility] Meningococcal Polysaccharide (groups A, C, Y and W-135) conjugate vaccine (MCV4P) Unknown Completed [facility] MMR Unknown Completed [facility] IPV Unknown Completed [facility] Varicella (varivax)(chicken pox) Unknown Completed [facility] TDAP Unknown Completed [facility] DTaP, Unspecified Formulation Unknown Completed [facility] Influenza Virus Vaccine Quad .5 mL IM 6+ MO (FLUZONE/FLULAVAL/FL UARIX) Unknown Completed [facility] Hep B, Adol or Pedi Dosage Unknown Completed [facility] Haemophilus influenzae type b vaccine, conjugate unspecified formulation Unknown Completed [facility] HPV Unknown Completed [facility] Meningococcal Polysaccharide (groups A, C, Y and W-135) conjugate vaccine (MCV4P) Unknown Completed [facility] MMR Unknown Completed [facility] IPV Unknown Completed [facility] Varicella (varivax)(chicken pox) Unknown Completed [facility] TDAP Unknown Completed [facility] DTaP, Unspecified Formulation Unknown Completed [facility] Influenza Virus Vaccine Quad .5 mL IM 6+ MO (FLUZONE/FLULAVAL/FL UARIX) Unknown Completed [facility] Hep B, Adol or Pedi Dosage Unknown Completed [facility] Haemophilus influenzae type b vaccine, conjugate unspecified formulation Unknown Completed [facility] HPV Unknown Completed [facility] Meningococcal Polysaccharide (groups A, C, Y and W-135) conjugate vaccine (MCV4P) Unknown Completed [facility] MMR Unknown Completed [facility] IPV Unknown Completed [facility] Varicella (varivax)(chicken pox) Unknown Completed [facility] TDAP Unknown Completed [facility] DTaP, Unspecified Formulation Unknown Completed [facility] Influenza Virus Vaccine Quad .5 mL IM 6+ MO (FLUZONE/FLULAVAL/FL UARIX) Unknown Completed [facility] Hep B, Adol or Pedi Dosage Unknown Completed [facility] Haemophilus influenzae type b vaccine, conjugate unspecified formulation Unknown Completed [facility] HPV Unknown Completed [facility] Meningococcal Polysaccharide (groups A, C, Y and W-135) conjugate vaccine (MCV4P) Unknown Completed [facility] MMR Unknown Completed [facility] IPV Unknown Completed [facility] Varicella (varivax)(chicken pox) Unknown Completed [facility] TDAP Unknown Completed [facility] DTaP, Unspecified Formulation Unknown Completed [facility] Influenza Virus Vaccine Quad .5 mL IM 6+ MO (FLUZONE/FLULAVAL/FL UARIX) Unknown Completed [facility] Hep B, Adol or Pedi Dosage Unknown Completed [facility] Haemophilus influenzae type b vaccine, conjugate unspecified formulation Unknown Completed [facility] HPV Unknown Completed [facility] Meningococcal Polysaccharide (groups A, C, Y and W-135) conjugate vaccine (MCV4P) Unknown Completed [facility] MMR Unknown Completed [facility] IPV Unknown Completed [facility] Varicella (varivax)(chicken pox) Unknown Completed [facility] TDAP Unknown Completed [facility] DTaP, Unspecified Formulation Unknown Completed [facility] Influenza Virus Vaccine Quad .5 mL IM 6+ MO (FLUZONE/FLULAVAL/FL UARIX) Unknown Completed [facility] Hep B, Adol or Pedi Dosage Unknown Completed [facility] Haemophilus influenzae type b vaccine, conjugate unspecified formulation Unknown Completed [facility] HPV Unknown Completed [facility] Meningococcal Polysaccharide (groups A, C, Y and W-135) conjugate vaccine (MCV4P) Unknown Completed [facility] MMR Unknown Completed [facility] IPV Unknown Completed [facility] Varicella (varivax)(chicken pox) Unknown Completed [facility] TDAP Unknown Completed [facility] DTaP, Unspecified Formulation Unknown Completed [facility] Influenza Virus Vaccine Quad .5 mL IM 6+ MO (FLUZONE/FLULAVAL/FL UARIX) Unknown Completed [facility] Hep B, Adol or Pedi Dosage Unknown Completed [facility] Haemophilus influenzae type b vaccine, conjugate unspecified formulation Unknown Completed [facility] HPV Unknown Completed [facility] Meningococcal Polysaccharide (groups A, C, Y and W-135) conjugate vaccine (MCV4P) Unknown Completed [facility] MMR Unknown Completed [facility] IPV Unknown Completed [facility] Varicella (varivax)(chicken pox) Unknown Completed [facility] TDAP Unknown Completed [facility] DTaP, Unspecified Formulation Unknown Completed [facility] Influenza Virus Vaccine Quad .5 mL IM 6+ MO (FLUZONE/FLULAVAL/FL UARIX) Unknown Completed [facility] Hep B, Adol or Pedi Dosage Unknown Completed [facility] Haemophilus influenzae type b vaccine, conjugate unspecified formulation Unknown Completed [facility] HPV Unknown Completed [facility] Meningococcal Polysaccharide (groups A, C, Y and W-135) conjugate vaccine (MCV4P) Unknown Completed [facility] MMR Unknown Completed [facility] IPV Unknown Completed [facility] Varicella (varivax)(chicken pox) Unknown Completed [facility] TDAP Unknown Completed [facility] DTaP, Unspecified Formulation Unknown Completed [facility] Influenza Virus Vaccine Quad .5 mL IM 6+ MO (FLUZONE/FLULAVAL/FL UARIX) Unknown Completed [facility] Hep B, Adol or Pedi Dosage Unknown Completed [facility] Haemophilus influenzae type b vaccine, conjugate unspecified formulation Unknown Completed [facility] HPV Unknown Completed [facility] Meningococcal Polysaccharide (groups A, C, Y and W-135) conjugate vaccine (MCV4P) Unknown Completed [facility] MMR Unknown Completed [facility] IPV Unknown Completed [facility] Varicella (varivax)(chicken pox) Unknown Completed [facility] HPV9 Unknown Completed [facility] Influenza Virus Vaccine Quad .5 mL IM 6+ MO (FLUZONE/FLULAVAL/FL UARIX) Unknown Completed [facility] Meningococcal Polysaccharide (groups A, C, Y and W-135) conjugate vaccine (MCV4P) Unknown Completed [facility] HPV9 Unknown Completed [facility] TDAP Unknown Completed [facility] DTaP, Unspecified Formulation Unknown Completed [facility] Hep B, Adol or Pedi Dosage Unknown Completed [facility] Haemophilus influenzae type b vaccine, conjugate unspecified formulation Unknown Completed [facility] HPV Unknown Completed [facility] MMR Unknown Completed [facility] IPV Unknown Completed [facility] Varicella (varivax)(chicken pox) Unknown Completed [facility] TDAP Unknown Completed [facility] DTaP, Unspecified Formulation Unknown Completed [facility] Influenza Virus Vaccine Quad .5 mL IM 6+ MO (FLUZONE/FLULAVAL/FL UARIX) Unknown Completed [facility] Hep B, Adol or Pedi Dosage Unknown Completed [facility] Haemophilus influenzae type b vaccine, conjugate unspecified formulation Unknown Completed [facility] HPV Unknown Completed [facility] Meningococcal Polysaccharide (groups A, C, Y and W-135) conjugate vaccine (MCV4P) Unknown Completed [facility] MMR Unknown Completed [facility] IPV Unknown Completed [facility] Varicella (varivax)(chicken pox) Unknown Completed [facility] HPV9 Unknown Completed [facility] TDAP Unknown Completed [facility] DTaP, Unspecified Formulation Unknown Completed [facility] Influenza Virus Vaccine Quad .5 mL IM 6+ MO (FLUZONE/FLULAVAL/FL UARIX) Unknown Completed [facility] Hep B, Adol or Pedi Dosage Unknown Completed [facility] Haemophilus influenzae type b vaccine, conjugate unspecified formulation Unknown Completed [facility] HPV Unknown Completed [facility] Meningococcal Polysaccharide (groups A, C, Y and W-135) conjugate vaccine (MCV4P) Unknown Completed [facility] MMR Unknown Completed [facility] IPV Unknown Completed [facility] Varicella (varivax)(chicken pox) Unknown Completed [facility] HPV9 Unknown Completed [facility] TDAP Unknown Completed [facility] DTaP, Unspecified Formulation Unknown Completed [facility] Influenza Virus Vaccine Quad .5 mL IM 6+ MO (FLUZONE/FLULAVAL/FL UARIX) Unknown Completed [facility] Hep B, Adol or Pedi Dosage Unknown Completed [facility] Haemophilus influenzae type b vaccine, conjugate unspecified formulation Unknown Completed [facility] HPV Unknown Completed [facility] Meningococcal Polysaccharide (groups A, C, Y and W-135) conjugate vaccine (MCV4P) Unknown Completed [facility] MMR Unknown Completed [facility] IPV Unknown Completed [facility] Varicella (varivax)(chicken pox) Unknown Completed [facility] HPV9 Unknown Completed [facility] Influenza Virus Vaccine Quad .5 mL IM 6+ MO (FLUZONE/FLULAVAL/FL UARIX) Unknown Completed [facility] Meningococcal Polysaccharide (groups A, C, Y and W-135) conjugate vaccine (MCV4P) Unknown Completed [facility] HPV9 Unknown Completed [facility] TDAP Unknown Completed [facility] DTaP, Unspecified Formulation Unknown Completed [facility] Influenza Virus Vaccine Quad .5 mL IM 6+ MO (FLUZONE/FLULAVAL/FL UARIX) Unknown Completed [facility] Hep B, Adol or Pedi Dosage Unknown Completed [facility] Haemophilus influenzae type b vaccine, conjugate unspecified formulation Unknown Completed [facility] HPV Unknown Completed [facility] Meningococcal Polysaccharide (groups A, C, Y and W-135) conjugate vaccine (MCV4P) Unknown Completed [facility] MMR Unknown Completed [facility] IPV Unknown Completed [facility] Varicella (varivax)(chicken pox) Unknown Completed [facility] HPV9 Unknown Completed [facility] TDAP Unknown Completed [facility] DTaP, Unspecified Formulation Unknown Completed [facility] Influenza Virus Vaccine Quad .5 mL IM 6+ MO (FLUZONE/FLULAVAL/FL UARIX) Unknown Completed [facility] Hep B, Adol or Pedi Dosage Unknown Completed [facility] Haemophilus influenzae type b vaccine, conjugate unspecified formulation Unknown Completed [facility] HPV Unknown Completed [facility] Meningococcal Polysaccharide (groups A, C, Y and W-135) conjugate vaccine (MCV4P) Unknown Completed [facility] MMR Unknown Completed [facility] IPV Unknown Completed [facility] Varicella (varivax)(chicken pox) Unknown Completed [facility] HPV9 Unknown Completed [facility] TDAP Unknown Completed [facility] DTaP, Unspecified Formulation Unknown Completed [facility] Hep B, Adol or Pedi Dosage Unknown Completed [facility] Haemophilus influenzae type b vaccine, conjugate unspecified formulation Unknown Completed [facility] HPV Unknown Completed [facility] MMR Unknown Completed [facility] IPV Unknown Completed [facility] Varicella (varivax)(chicken pox) Unknown Completed [facility] TDAP Unknown Completed [facility] DTaP, Unspecified Formulation Unknown Completed [facility] Influenza Virus Vaccine Quad .5 mL IM 6+ MO (FLUZONE/FLULAVAL/FL UARIX) Unknown Completed [facility] Hep B, Adol or Pedi Dosage Unknown Completed [facility] Haemophilus influenzae type b vaccine, conjugate unspecified formulation Unknown Completed [facility] HPV Unknown Completed [facility] Meningococcal Polysaccharide (groups A, C, Y and W-135) conjugate vaccine (MCV4P) Unknown Completed [facility] MMR Unknown Completed [facility] IPV Unknown Completed [facility] Varicella (varivax)(chicken pox) Unknown Completed [facility] HPV9 Unknown Completed [facility] TDAP Unknown Completed [facility] DTaP, Unspecified Formulation Unknown Completed [facility] Influenza Virus Vaccine Quad .5 mL IM 6+ MO (FLUZONE/FLULAVAL/FL UARIX) Unknown Completed [facility] Hep B, Adol or Pedi Dosage Unknown Completed [facility] Haemophilus influenzae type b vaccine, conjugate unspecified formulation Unknown Completed [facility] HPV Unknown Completed [facility] Meningococcal Polysaccharide (groups A, C, Y and W-135) conjugate vaccine (MCV4P) Unknown Completed [facility] MMR Unknown Completed [facility] IPV Unknown Completed [facility] Varicella (varivax)(chicken pox) Unknown Completed [facility] HPV9 Unknown Completed [facility] TDAP Unknown Completed [facility] DTaP, Unspecified Formulation Unknown Completed [facility] Influenza Virus Vaccine Quad .5 mL IM 6+ MO (FLUZONE/FLULAVAL/FL UARIX) Unknown Completed [facility] Hep B, Adol or Pedi Dosage Unknown Completed [facility] Haemophilus influenzae type b vaccine, conjugate unspecified formulation Unknown Completed [facility] HPV Unknown Completed [facility] Meningococcal Polysaccharide (groups A, C, Y and W-135) conjugate vaccine (MCV4P) Unknown Completed [facility] MMR Unknown Completed [facility] IPV Unknown Completed [facility] Varicella (varivax)(chicken pox) Unknown Completed [facility] HPV9 Unknown Completed [facility] Vital Signs Vital Name Observation Time Observation Value Comments S ource Systolic blood pressure 2025-03-06 14:59:00 117 mm[Hg] [facility] Diastolic blood pressure 2025-03-06 14:59:00 82 mm[Hg] [facility] Heart rate 2025-03-06 14:59:00 94 /min [facility] Body temperature 2025-03-06 14:59:00 36.39 Maria Dolores [facility] Respiratory rate 2025-03-06 14:59:00 18 /min [facility] Body height 2025-03-06 14:59:00 167.6 cm [facility] Body weight 2025-03-06 14:59:00 105.433 kg [facility] BMI 2025-03-06 14:59:00 37.52 kg/m2 [facility] Systolic blood pressure 2024-07-05 00:16:00 115 mm[Hg] [facility] Diastolic blood pressure 2024-07-05 00:16:00 72 mm[Hg] [facility] Heart rate 2024-07-05 00:16:00 84 /min [facility] Body temperature 2024-07-05 00:16:00 37.06 Maria Dolores [facility] Respiratory rate 2024-07-05 00:16:00 18 /min [facility] Body weight 2024-07-05 00:16:00 105.291 kg [facility] BMI 2024-07-05 00:16:00 37.47 kg/m2 [facility] Oxygen saturation in Arterial blood by Pulse oximetry 2024-07-05 00:16:00 100 /min [facility] Systolic blood pressure 2024-01-23 00:55:00 124 mm[Hg] [facility] Diastolic blood pressure 2024-01-23 00:55:00 76 mm[Hg] [facility] Heart rate 2024-01-23 00:55:00 82 /min [facility] Body temperature 2024-01-23 00:55:00 36.11 Maria Dolores [facility] Respiratory rate 2024-01-23 00:55:00 17 /min [facility] Body weight 2024-01-23 00:55:00 105.802 kg [facility] BMI 2024-01-23 00:55:00 37.65 kg/m2 [facility] Oxygen saturation in Arterial blood by Pulse oximetry 2024-01-23 00:55:00 100 /min [facility] Systolic blood pressure 2024-01-05 15:32:00 110 mm[Hg] [facility] Diastolic blood pressure 2024-01-05 15:32:00 76 mm[Hg] [facility] Heart rate 2024-01-05 15:32:00 69 /min [facility] Body temperature 2024-01-05 15:32:00 37 Maria Dolores [facility] Respiratory rate 2024-01-05 15:32:00 18 /min [facility] Body height 2024-01-05 15:32:00 167.6 cm [facility] Body weight 2024-01-05 15:32:00 105.915 kg [facility] BMI 2024-01-05 15:32:00 37.69 kg/m2 [facility] Oxygen saturation in Arterial blood by Pulse oximetry 2024-01-05 15:32:00 99 /min [facility] Systolic blood pressure 2023-11-02 16:06:00 112 mm[Hg] [facility] Diastolic blood pressure 2023-11-02 16:06:00 66 mm[Hg] [facility] Heart rate 2023-11-02 16:06:00 65 [facility] Body temperature 2023-11-02 16:06:00 36.56 Maria Dolores [facility] Respiratory rate 2023-11-02 16:06:00 17 /min [facility] Body height 2023-11-02 16:06:00 170.2 cm [facility] Body weight 2023-11-02 16:06:00 99.428 kg [facility] BMI 2023-11-02 16:06:00 34.33 kg/m2 [facility] Systolic blood pressure 2023-09-24 19:08:00 148 mm[Hg] [facility] Diastolic blood pressure 2023-09-24 19:08:00 85 mm[Hg] [facility] Heart rate 2023-09-24 19:08:00 56 /min [facility] Body temperature 2023-09-24 19:07:00 36.5 Maria Dolores [facility] Respiratory rate 2023-09-24 19:07:00 20 /min [facility] Body height 2023-09-24 19:07:00 170.2 cm [facility] Body weight 2023-09-24 19:07:00 102.876 kg [facility] BMI 2023-09-24 19:07:00 35.52 kg/m2 [facility] Systolic blood pressure 2023-09-19 13:42:00 112 mm[Hg] [facility] Diastolic blood pressure 2023-09-19 13:42:00 78 mm[Hg] [facility] Heart rate 2023-09-19 13:42:00 77 /min [facility] Body temperature 2023-09-19 13:42:00 36.39 Maria Dolores [facility] Respiratory rate 2023-09-19 13:42:00 18 /min [facility] Oxygen saturation in Arterial blood by Pulse oximetry 2023-09-19 13:42:00 98 /min [facility] Body height 2023-09-16 01:00:00 167.6 cm [facility] Body weight 2023-09-16 01:00:00 109.362 kg [facility] BMI 2023-09-16 01:00:00 38.93 kg/m2 [facility] Systolic blood pressure 2023-09-16 13:45:00 102 mm[Hg] [facility] Diastolic blood pressure 2023-09-16 13:45:00 72 mm[Hg] [facility] Heart rate 2023-09-16 13:45:00 69 /min [facility] Respiratory rate 2023-09-16 13:45:00 19 /min [facility] Oxygen saturation in Arterial blood by Pulse oximetry 2023-09-16 13:45:00 99 /min [facility] Body temperature 2023-09-16 13:00:00 36.61 Maria Dolores [facility] Body height 2023-09-16 01:00:00 167.6 cm [facility] Body weight 2023-09-16 01:00:00 109.362 kg [facility] BMI 2023-09-16 01:00:00 38.93 kg/m2 [facility] Systolic blood pressure 2023-09-15 15:18:00 135 mm[Hg] [facility] Diastolic blood pressure 2023-09-15 15:18:00 86 mm[Hg] [facility] Heart rate 2023-09-15 15:18:00 95 /min [facility] Body temperature 2023-09-15 15:18:00 36.5 Maria Dolores [facility] Respiratory rate 2023-09-15 15:18:00 19 /min [facility] Body height 2023-09-15 15:18:00 167.6 cm [facility] Body weight 2023-09-15 15:18:00 107.956 kg [facility] BMI 2023-09-15 15:18:00 38.41 kg/m2 [facility] Systolic blood pressure 2023-09-15 16:48:00 106 mm[Hg] [facility] Diastolic blood pressure 2023-09-15 16:48:00 86 mm[Hg] [facility] Heart rate 2023-09-15 16:48:00 79 /min [facility] Body temperature 2023-09-15 16:48:00 36.56 Maria Dolores [facility] Heart rate 2023-09-11 01:50:00 79 /min [facility] Oxygen saturation in Arterial blood by Pulse oximetry 2023-09-11 01:50:00 100 /min [facility] Systolic blood pressure 2023-09-11 01:30:00 106 mm[Hg] [facility] Diastolic blood pressure 2023-09-11 01:30:00 86 mm[Hg] [facility] Respiratory rate 2023-09-11 01:00:00 18 /min [facility] Body height 2023-09-10 21:30:00 167.6 cm [facility] Body weight 2023-09-10 21:30:00 107.956 kg [facility] BMI 2023-09-10 21:30:00 38.41 kg/m2 [facility] Systolic blood pressure 2023-09-10 17:37:00 118 mm[Hg] [facility] Diastolic blood pressure 2023-09-10 17:37:00 78 mm[Hg] [facility] Heart rate 2023-09-10 17:37:00 94 /min [facility] Body temperature 2023-09-10 17:37:00 36.39 Maria Dolores [facility] Respiratory rate 2023-09-10 17:37:00 18 /min [facility] Body height 2023-09-10 17:37:00 167.6 cm [facility] Body weight 2023-09-10 17:37:00 107.956 kg [facility] BMI 2023-09-10 17:37:00 38.41 kg/m2 [facility] Systolic blood pressure 2023-09-09 21:55:00 124 mm[Hg] General acute hospital Diastolic blood pressure 2023-09-09 21:55:00 75 mm[Hg] General acute hospital Heart rate 2023-09-09 21:55:00 79 /min [facility] Body temperature 2023-09-09 21:55:00 36.39 Maria Dolores [facility] Respiratory rate 2023-09-09 21:55:00 18 /min [facility] Body height 2023-09-09 21:55:00 167.6 cm [facility] Body weight 2023-09-09 21:55:00 106.958 kg [facility] BMI 2023-09-09 21:55:00 38.06 kg/m2 [facility] Systolic blood pressure 2023-09-03 20:25:00 129 mm[Hg] General acute hospital Diastolic blood pressure 2023-09-03 20:25:00 79 mm[Hg] General acute hospital Heart rate 2023-09-03 20:25:00 112 /min [facility] Body temperature 2023-09-03 20:25:00 36.44 Maria Dolores [facility] Respiratory rate 2023-09-03 20:25:00 18 /min [facility] Body height 2023-09-03 20:25:00 167.6 cm [facility] Body weight 2023-09-03 20:25:00 107.457 kg [facility] BMI 2023-09-03 20:25:00 38.24 kg/m2 [facility] Systolic blood pressure 2023-09-01 20:02:00 128 mm[Hg] General acute hospital Diastolic blood pressure 2023-09-01 20:02:00 76 mm[Hg] General acute hospital Heart rate 2023-09-01 20:02:00 99 /min [facility] Body temperature 2023-09-01 20:02:00 35.72 Maria Dolores [facility] Respiratory rate 2023-09-01 20:02:00 18 /min [facility] Body height 2023-09-01 20:02:00 167.6 cm [facility] Body weight 2023-09-01 20:02:00 108.682 kg [facility] BMI 2023-09-01 20:02:00 38.67 kg/m2 [facility] Systolic blood pressure 2023-08-26 21:45:00 114 mm[Hg] General acute hospital Diastolic blood pressure 2023-08-26 21:45:00 71 mm[Hg] General acute hospital Heart rate 2023-08-26 21:45:00 98 /min [facility] Body temperature 2023-08-26 21:45:00 35.94 Maria Dolores [facility] Respiratory rate 2023-08-26 21:45:00 18 /min [facility] Body height 2023-08-26 21:45:00 167.6 cm [facility] Body weight 2023-08-26 21:45:00 106.505 kg [facility] BMI 2023-08-26 21:45:00 37.90 kg/m2 [facility] Systolic blood pressure 2023-08-11 16:22:00 118 mm[Hg] General acute hospital Diastolic blood pressure 2023-08-11 16:22:00 63 mm[Hg] General acute hospital Heart rate 2023-08-11 16:22:00 98 /min [facility] Body temperature 2023-08-11 16:22:00 35.61 Maria Dolores [facility] Respiratory rate 2023-08-11 16:22:00 18 /min [facility] Body height 2023-08-11 16:22:00 167.6 cm [facility] Body weight 2023-08-11 16:22:00 104.781 kg [facility] BMI 2023-08-11 16:22:00 37.28 kg/m2 [facility] Systolic blood pressure 2023-08-03 02:00:00 113 mm[Hg] General acute hospital Diastolic blood pressure 2023-08-03 02:00:00 54 mm[Hg] General acute hospital Heart rate 2023-08-03 02:00:00 86 /min [facility] Oxygen saturation in Arterial blood by Pulse oximetry 2023-08-03 02:00:00 100 /min General acute hospital Body temperature 2023-08-03 01:00:00 36.67 Maria Dolores [facility] Respiratory rate 2023-08-03 01:00:00 17 /min [facility] Body height 2023-08-02 23:39:00 167.6 cm [facility] Body weight 2023-08-02 23:39:00 104.781 kg [facility] BMI 2023-08-02 23:39:00 37.28 kg/m2 [facility] Systolic blood pressure 2023-07-29 21:49:00 130 mm[Hg] General acute hospital Diastolic blood pressure 2023-07-29 21:49:00 71 mm[Hg] General acute hospital Heart rate 2023-07-29 21:49:00 93 /min [facility] 2023-07-29 21:49:00 36.06 Maria Dolores [facility] Respiratory rate 2023-07-29 21:49:00 18 /min [facility] Body height 2023-07-29 21:49:00 170.2 cm [facility] Body weight 2023-07-29 21:49:00 104.838 kg [facility] BMI 2023-07-29 21:49:00 36.20 kg/m2 [facility] Systolic blood pressure 2023-07-19 04:30:00 105 mm[Hg] General acute hospital Diastolic blood pressure 2023-07-19 04:30:00 56 mm[Hg] General acute hospital Heart rate 2023-07-19 04:30:00 92 /min [facility] Oxygen saturation in Arterial blood by Pulse oximetry 2023-07-19 04:30:00 100 /min General acute hospital Body temperature 2023-07-19 02:54:00 37.17 Maria Dolores [facility] Respiratory rate 2023-07-19 02:54:00 18 /min [facility] Body weight 2023-07-19 02:54:00 102.967 kg [facility] BMI 2023-07-19 02:54:00 35.55 kg/m2 [facility] Body height 2023-07-19 02:25:00 170.2 cm [facility] Systolic blood pressure 2023-07-12 19:39:00 120 mm[Hg] General acute hospital Diastolic blood pressure 2023-07-12 19:39:00 69 mm[Hg] General acute hospital Heart rate 2023-07-12 19:39:00 100 /min [facility] Body temperature 2023-07-12 19:39:00 36.11 Maria Dolores [facility] Respiratory rate 2023-07-12 19:39:00 18 /min [facility] Body height 2023-07-12 19:39:00 170.2 cm [facility] Body weight 2023-07-12 19:39:00 103.902 kg [facility] BMI 2023-07-12 19:39:00 35.88 kg/m2 [facility] Systolic blood pressure 2023-06-30 20:29:00 108 mm[Hg] General acute hospital Diastolic blood pressure 2023-06-30 20:29:00 65 mm[Hg] General acute hospital Heart rate 2023-06-30 20:29:00 88 /min [facility] Body temperature 2023-06-30 20:29:00 36.28 Maria Dolores [facility] Respiratory rate 2023-06-30 20:29:00 18 /min [facility] Body height 2023-06-30 20:29:00 170.2 cm [facility] Body weight 2023-06-30 20:29:00 103.505 kg [facility] BMI 2023-06-30 20:29:00 35.74 kg/m2 [facility] Systolic blood pressure 2023-06-02 19:46:00 99 mm[Hg] General acute hospital Diastolic blood pressure 2023-06-02 19:46:00 64 mm[Hg] General acute hospital Heart rate 2023-06-02 19:46:00 93 /min [facility] Body temperature 2023-06-02 19:46:00 35.94 Maria Dolores [facility] Respiratory rate 2023-06-02 19:46:00 20 /min [facility] Body height 2023-06-02 19:46:00 170.2 cm [facility] Body weight 2023-06-02 19:46:00 102.626 kg [facility] BMI 2023-06-02 19:46:00 35.44 kg/m2 [facility] Systolic blood pressure 2023-05-05 19:09:00 109 mm[Hg] General acute hospital Diastolic blood pressure 2023-05-05 19:09:00 58 mm[Hg] General acute hospital Heart rate 2023-05-05 19:09:00 89 /min [facility] Body temperature 2023-05-05 19:09:00 36.56 Maria Dolores [facility] Respiratory rate 2023-05-05 19:09:00 18 /min [facility] Body height 2023-05-05 19:09:00 170.2 cm [facility] Body weight 2023-05-05 19:09:00 100.33 kg [facility] BMI 2023-05-05 19:09:00 34.64 kg/m2 [facility] Systolic blood pressure 2023-04-08 19:36:00 110 mm[Hg] [facility] Diastolic blood pressure 2023-04-08 19:36:00 58 mm[Hg] General acute hospital Heart rate 2023-04-08 19:36:00 92 /min [facility] Body temperature 2023-04-08 19:36:00 36.5 Maria Dolores [facility] Respiratory rate 2023-04-08 19:36:00 17 /min [facility] Body height 2023-04-08 19:36:00 170.2 cm [facility] Body weight 2023-04-08 19:36:00 98.612 kg [facility] BMI 2023-04-08 19:36:00 34.05 kg/m2 [facility] Systolic blood pressure 2023-03-11 19:19:00 122 mm[Hg] General acute hospital Diastolic blood pressure 2023-03-11 19:19:00 78 mm[Hg] General acute hospital Heart rate 2023-03-11 19:19:00 97 /min [facility] Body temperature 2023-03-11 19:19:00 36.5 Maria Dolores [facility] Respiratory rate 2023-03-11 19:19:00 20 /min [facility] Body height 2023-03-11 19:19:00 170.2 cm [facility] Body weight 2023-03-11 19:19:00 98.998 [facility] BMI 2023-03-11 19:19:00 34.18 kg/m2 [facility] Systolic blood pressure 2023-03-02 01:19:00 109 mm[Hg] [facility] Diastolic blood pressure 2023-03-02 01:19:00 64 mm[Hg] General acute hospital Heart rate 2023-03-02 01:19:00 93 /min [facility] Respiratory rate 2023-03-02 01:19:00 18 /min [facility] Oxygen saturation in Arterial blood by Pulse oximetry 2023-03-02 01:19:00 99 /min General acute hospital Body temperature 2023-03-02 00:12:00 37.5 Maria Dolores [facility] Body height 2023-03-02 00:12:00 170.2 cm [facility] Body weight 2023-03-02 00:12:00 99.791 kg [facility] BMI 2023-03-02 00:12:00 34.46 kg/m2 [facility] Systolic blood pressure 2023-02-11 13:46:00 101 mm[Hg] General acute hospital Diastolic blood pressure 2023-02-11 13:46:00 70 mm[Hg] General acute hospital Heart rate 2023-02-11 13:46:00 83 /min [facility] Body temperature 2023-02-11 13:46:00 36.39 Maria Dolores [facility] Respiratory rate 2023-02-11 13:46:00 18 /min [facility] Body height 2023-02-11 13:46:00 167.6 cm [facility] Body weight 2023-02-11 13:46:00 101.294 kg [facility] BMI 2023-02-11 13:46:00 36.04 kg/m2 [facility] Systolic blood pressure 2022-12-30 21:39:00 114 mm[Hg] General acute hospital Diastolic blood pressure 2022-12-30 21:39:00 72 mm[Hg] General acute hospital Heart rate 2022-12-30 21:39:00 75 /min [facility] Body temperature 2022-12-30 21:39:00 36.67 Maria Dolores [facility] Respiratory rate 2022-12-30 21:39:00 16 /min [facility] Body height 2022-12-30 21:39:00 170.2 cm [facility] Body weight 2022-12-30 21:39:00 102.513 kg [facility] BMI 2022-12-30 21:39:00 35.40 kg/m2 [facility] Oxygen saturation in Arterial blood by Pulse oximetry 2022-12-30 21:39:00 97 /min General acute hospital Systolic blood pressure 2022-05-18 14:11:00 105 mm[Hg] General acute hospital Diastolic blood pressure 2022-05-18 14:11:00 68 mm[Hg] General acute hospital Heart rate 2022-05-18 14:11:00 84 /min [facility] Body temperature 2022-05-18 14:11:00 37.44 Maria Dolores [facility] Respiratory rate 2022-05-18 14:11:00 16 /min [facility] Body height 2022-05-18 14:11:00 167.6 cm [facility] Body weight 2022-05-18 14:11:00 96.888 kg [facility] BMI 2022-05-18 14:11:00 34.48 kg/m2 [facility] Oxygen saturation in Arterial blood by Pulse oximetry 2022-05-18 14:11:00 98 /min General acute hospital Systolic blood pressure 2022-03-06 19:08:00 120 mm[Hg] General acute hospital Diastolic blood pressure 2022-03-06 19:08:00 80 mm[Hg] General acute hospital Heart rate 2022-03-06 19:08:00 96 /min [facility] Body temperature 2022-03-06 19:08:00 36.89 Maria Dolores [facility] Respiratory rate 2022-03-06 19:08:00 18 /min [facility] Body height 2022-03-06 19:08:00 167.6 cm [facility] Body weight 2022-03-06 19:08:00 97.523 kg [facility] BMI 2022-03-06 19:08:00 34.70 kg/m2 [facility] Oxygen saturation in Arterial blood by Pulse oximetry 2022-03-06 19:08:00 98 /min [facility] Diastolic (mm Hg) 2018-07-22 19:45:00 [facility] Systolic (mm Hg) 2018-07-22 19:45:00 [facility] Height 2018-07-22 19:45:00 [facility] [place] Weight 2018-07-22 19:45:00 [facility] Temperature Oral (F) 2018-07-22 19:45:00 96.0 F [facility] Procedures Procedure Date / Time Performed Performing Clinician Source COMP. METABOLIC PANEL (74669) 2025-03-06 16:25:00 Zoe Goodman [facility] CBC WITH DIFF 2025-03-06 16:25:00 Zoe Goodman [facility] GLYCOSYLATED HEMOGLOBIN (A1C) 2025-03-06 16:25:00 Zoe Goodman [facility] RUBELLA SCREEN IGG 2025-03-06 16:25:00 Melba Goodman [facility] VZV ANTIBODY SCREEN 2025-03-06 16:25:00 Ila Goodman [facility] HEPATITIS B SURFACE ANTIGEN 2025-03-06 16:25:00 Zoe Godoman [facility] HCV ANTIBODY 2025-03-06 16:25:00 Zoe Goodman [facility] HB ABO GROUPING 2025-03-06 16:25:00 Zoe Goodman [facility] URINE CULTURE 2025-03-06 16:25:00 Zoe Goodman [facility] GC & CHLAMYDIA AMPLIFIED ASSAY 2025-03-06 16:25:00 Zoe Goodman [facility] HIV 1/2 AG-AB WITH REFLEX 2025-03-06 16:25:00 Zeo Valles [facility] SYPHILIS IGG/IGM 2025-03-06 16:25:00 Zoe Goodman [facility] POCT URINALYSIS W/O SPECIFIC GRAVITY 2025-03-06 14:58:00 Zoe Goodman [facility] POCT TEST 2025-03-06 14:56:00 Ila Goodman [facility] VITAMIN B12, LEVEL 2024-01-05 16:04:00 Catalina Stapleton [facility] INSULIN, LEVEL 2024-01-05 16:04:00 Catalina Stapleton [facility] COMP. METABOLIC PANEL ([id number]) 2024-01-05 16:04:00 Catalina Stapleton [facility] GLYCOSYLATED HEMOGLOBIN (A1C) 2024-01-05 16:04:00 Catalina Stapleton [facility] VITAMIN D, 25-OH 2024-01-05 16:04:00 Catalina Stapleton [facility] GARDASIL 9 (HPV 9V) VACCINE 2023-11-02 16:29:57 Reyes Richards [facility] DISABILITY/FMLA 2023-10-04 06:01:00 Doctor Unass igned, Jenks [facility] CBC WITH DIFF 2023-09-17 11:08:00 Melba Iraheta [facility] CBC WITH DIFF 2023-09-17 11:08:00 Melba Iraheta Susy [facility] CBC WITH DIFF 2023-09-16 22:52:00 Pedro Collins [facility] CBC WITH DIFF 2023-09-16 22:52:00 Pedro Collins [facility] POCT GLUCOSE (AUTOMATED) 2023-09-16 21:09:00 Sulema Jurado [facility] POCT GLUCOSE (AUTOMATED) 2023-09-16 21:09:00 Sulema Jurado [facility] VENOUS CORD GAS 2023-09-16 12:19:00 Jenusaitis, Luke [facility] VENOUS CORD GAS 2023-09-16 12:19:00 Jenusaitis, Luke U [facility] SECTION 2023-09-16 11:39:00 Bharti Diaz [facility] SECTION 2023-09-16 11:39:00 Joe Bharti [facility] CENTRAL NEURAXIAL BLOCK 2023-09-16 08:10:00 Dutch Newberry [facility] CBC WITH DIFF 2023-09-15 23:24:00 Jenusaitis, [facility] HEPATITIS B SURFACE ANTIGEN 2023-09-15 23:24:00 Jenusaitis, [facility] HB ABO GROUPING 2023-09-15 23:24:00 Jenusaitis, [facility] RHO (D) IMMUNE GLOBULIN 2023-09-15 23:24:00 [facility]AB WITH REFLEX 2023-09-15 23:24:00 Jenusait is, [facility] SYPHILIS IGG/IGM 2023-09-15 23:24:00 Jenusaitis, [facility] CBC WITH DIFF 2023-09-15 23:24:00 Jenusaitis, [facility] HEPATITIS B SURFACE ANTIGEN 2023-09-15 23:24:00 Jenusaitis, [facility] HB ABO GROUPING 2023-09-15 23:24:00 Jenusaitis, [facility] RHO (D) IMMUNE GLOBULIN 2023-09-15 23:24:00 Katherine Iraheta ndpaul [facility] HIV 1/2 AG-AB WITH REFLEX 2023-09-15 23:24:00 Jenusait is, [facility] SYPHILIS IGG/IGM 2023-09-15 23:24:00 Jenusaitis, [facility] SGOT (ASPARTATE AMINO TRANSFER) 2023-09-15 21:29:00 [place] [facility] CREATININE 2023-09-15 21:29:00 [place] [facility] ALANINE AMINO TRANSFERASE(SGPT 2023-09-15 21:29:00 [place] [facility] LACTATE DEHYDROGENASE 2023-09-15 21:29:00 Alessia Orourke [facility] URIC ACID 2023-09-15 21:29:00 Stone, [facility] THYROID STIMULATING HORMONE 2023-09-15 21:29:00 Stone, [facility] CBC WITH DIFF 2023-09-15 21:29:00 Stone, [facility] URINALYSIS 2023-09-15 21:29:00 Stone, [facility] PROTEIN CREAT RATIO URINE RANDOM 2023-09-15 21:29:00 Stone, [facility] SGOT (ASPARTATE AMINO TRANSFER) 2023-09-15 21:29:00 Stone, [facility] CREATININE 2023-09-15 21:29:00 Stone, [facility] ALANINE AMINO TRANSFERASE(SGPT 2023-09-15 21:29:00 Stone, [facility] LACTATE DEHYDROGENASE 2023-09-15 21:29:00 Stone[place] [facility] URIC ACID 2023-09-15 21:29:00 Stone, [facility] THYROID STIMULATING HORMONE 2023-09-15 21:29:00 Stone, [facility] CBC WITH DIFF 2023-09-15 21:29:00 Stone, [facility] URINALYSIS 2023-09-15 21:29:00 Stone, [facility] PROTEIN CREAT RATIO URINE RANDOM 2023-09-15 21:29:00 Stone, [facility] POCT URINALYSIS 2023-09-15 16:47:00 Zoe Goodman [facility] SGOT (ASPARTATE AMINO TRANSFER) 2023-09-10 23:13:00 Amrit [facility] CREATININE 2023-09-10 23:13:00 Amrit [facility] ALANINE AMINO TRANSFERASE(SGPT 2023-09-10 23:13:00 Amrit [facility] LACTATE DEHYDROGENASE 2023-09-10 23:13:00 Amrit [facility] URIC ACID 2023-09-10 23:13:00 Adriel Marcus [facility] CBC WITH DIFF 2023-09-10 23:13[facility]00 [facility] 2023-09-10 22:02:19 Anton Richards [facility] POCT URINALYSIS 2023-09-10 17:38:00 Zoe Goodman [facility] POCT URINALYSIS 2023-09-09 21:56:00 Zoe Goodman [facility] CBC WITH DIFF 2023-09-09 21:50:00 Reyes Richards [facility] POCT URINALYSIS 2023-09-03 20:28:00 Zoe Goodman [facility] SECOND AND THIRD TRIMESTER ULTRASOUND 2023-09-02 14:29:00 Zoe Goodman [facility] POCT URINALYSIS 2023-09-01 20:07:00 Zoe Goodman [facility] PATIENT CORRESPONDENCE (LETTERS, USPS DOCUMENTATION) 2023-08-27 06:01:00 Doctor Unassigned, Jenks [facility] DME/SUPPLY JUSTIFICATION 2023-08-18 06:01:00 Doc tor Unassigned, Jenks [facility] POCT URINALYSIS 2023-08-11 16:25:00 Zoe Goodman [facility] TDAP VACCINE, >11 YRS, IM 2023-08-11 16:23:00 Reyes Richards [facility] POCT URINALYSIS 2023-07-29 21:56:00 Zoe Goodman [facility] NOTICE OF PRIVACY PRACTICES 2023-07-19 02:17:11 Doctor Unassigned, Jenks [facility] CONSENT/REFUSAL FOR DIAGNOSIS AND TREATMENT 2023-07-19 02:14:45 Doctor Unassigned, Jenks [facility] L&D VISIT (NON-DELIVERED) 2023-07-18 06:01:00 Do ctor Unassigned, Jenks [facility] POCT URINALYSIS 2023-07-12 22:40:00 Zoe Goodman [facility] POCT URINALYSIS 2023-07-12 22:39:00 Zoe Goodman [facility] GLUCOSE 1 HOUR POST PRANDIAL 2023-07-12 08:40:00 Zoe Goodman [facility] CBC WITH DIFF 2023-07-12 08:40:00 Zoe Goodman [facility] POCT URINALYSIS 2023-06-30 20:30:00 Zoe Goodman [facility] POCT URINALYSIS 2023-06-02 19:47:00 Zoe Goodman [facility] SECOND AND THIRD TRIMESTER ULTRASOUND 2023-05-19 20:34:00 Zoe Goodman [facility] ALPHA FETOPROTEIN-MATERNAL SER 2023-05-05 19:56:00 Zoe Goodman [facility] POCT URINALYSIS 2023-05-05 19:08:00 Zoe Goodman [facility] URINE CULTURE 2023-04-08 21:14:00 Zoe Goodman [facility] POCT URINALYSIS 2023-04-08 00:00:00 Zoe Goodman [facility] FIRST TRIMESTER ULTRASOUND 2023-03-29 16:51:00 Zoe Goodman [facility] POCT URINALYSIS 2023-03-11 19:22:00 Zoe Goodman [facility] FIRST TRIMESTER ULTRASOUND 2023-03-03 20:33:00 Zoe Goodman [facility] POCT TEST 2023-03-02 00:21:00 Fito Colon [facility] URINALYSIS 2023-03-02 00:[facility] OF PRIVACY PRACTICES 2023-03-01 23:58:05 Doctor Unassigned, Jenks [facility] CONSENT/REFUSAL FOR DIAGNOSIS AND TREATMENT 2023-03-01 23:57:09 Doctor Unassigned, Jenks [facility] GLUCOSE 1 HOUR POST PRANDIAL 2023-02-11 14:45:00 Zoe Goodman [facility] COMP. METABOLIC PANEL ([id number]) 2023-02-11 14:45:00 Zeo Goodman [facility] CBC WITH DIFF 2023-02-11 14:45:00 Zoe Goodman [facility] RUBELLA SCREEN IGG 2023-02-11 14:45:00 Melba Goodman da Salazar [facility] VZV ANTIBODY SCREEN 2023-02-11 14:45:00 Ila Goodman [facility] HEPATITIS B SURFACE ANTIGEN 2023-02-11 14:45:00 Zoe Goodman [facility] HCV ANTIBODY 2023-02-11 14:45:00 [facility] 2023-02-11 14:45:00 Zoe Goodman [facility] GC & CHLAMYDIA AMPLIFIED ASSAY 2023-02-11 14:45:00 Zoe Goodman [facility] HIV 1/2 AG-AB WITH REFLEX 2023-02-11 14:45:00 Zoe Valles [facility] TRICHOMONAS AMPLIFIED ASSAY 2023-02-11 14:45:00 Zoe Goodman [facility] PAP SMEAR-LIQUID BASED-CP 2023-02-11 14:45:00 Zoe Valles [facility] SYPHILIS IGG/IGM 2023-02-11 14:45:00 Zoe Goodman [facility] REPORT OF 2023-02-11 05:01:00 Doctor Natividad mueller, [place] [facility] POCT TEST 2023-02-11 00:00:00 Ila Goodman [facility] POCT URINALYSIS W/O SPECIFIC GRAVITY 2023-02-11 00:00:00 Zoe Goodman [facility] CONSENT/REFUSAL FOR DIAGNOSIS AND TREATMENT 2022-12-30 21:28:46 Doctor Unassigned, Jenks [facility] POCT MOLECULAR STREP 2022-05-18 14:10:00 [facility] 2022-03-06 19:13:00 Jean Christine Henson [facility] Encounters Start Date/Time End Date/Time Encounter Type Admission Type Attending [facility] Care Facility Care Department Encounter ID Source 2023-09-10 19:59:00 Outpatient P [facility] [id number] [facility] 2021-06-09 05:16:59 Emergency [facility] [id number] [facility] 2021-06-08 22:32:58 Outpatient P [facility] [id number] [facility] 2021-06-08 22:28:29 Outpatient P [facility] [id number] [facility] 2021-06-05 20:18:29 Emergency [facility] [id number] [facility] 2021-06-05 13:56:05 Outpatient P [facility] [id number] [facility] 2021-06-05 13:52:44 Outpatient P [facility] [id number] [facility] 2021-06-05 13:52:37 Emergency [facility] [id number] [facility] 2025-03-14 00:00:00 2025-03-14 16:35:14 Telephone Reyes Richards [facility] MATERNAL & CHILD [facility] 1..840.114 350.1.13.10 4.2.7.2.686 [id number] 107 [id number] [facility] 2025-03-12 00:00:00 2025-03-14 16:18:31 Patient Secure Msg Zoe Goodman [facility] & CHILD [facility] ..840.114 350.1.13.10 4.2.7.2.686 [id number] 107 [id number] [facility] 2025-03-06 00:00:00 2025-03-07 09:22:41 Telephone Catalina Stapleton [facility] TE[facility] & CHILD [facility] .2840.114 350.1.13.10 4.2.7.2.686 [id number] 107 [id number] [facility] 2025-03-06 10:00:00 2025-03-06 11:29:20 Initial Visit Zoe Park [facility] TE[facility] MATERNAL & CHILD [facility] 1.840.114 350.1.13.10 4.2.7.2.686 [id number] 107 [id number] [facility] 2025-03-06 09:30:00 2025-03-06 09:30:00 Outpatient ZOE PARK [facility] [id number] [facility] 2025-03-01 10:00:00 2025-03-01 10:00:00 Outpatient JILLIAN THOMAS [facility] [id number] [facility] 2025-02-28 08:16:32 2025-02-28 08:16:32 Outpatient [facility] [id number] Bib García 2024-11-28 16:37:06 2024-11-28 16:37:06 Outpatient [facility] SFA [id number] Bibsarah García 2024-07-04 18:00:00 2024-07-04 18:20:00 Urgent Care Jama Denney Unknown, Attending [facility] 1.840.114 350.1.13.10 4.2.7.2.686 [id number] [facility] 2024-07-04 18:00:00 2024-07-04 18:00:00 Outpatient R JAMA DENNEY [facility] [id number] [facility] 2024-07-04 00:00:00 2024-07-04 17:08:54 Nurse Triage Blaire Tapia Jenny L [facility] 1..840.114 350.1.13.10 4.2.7.2.686 [id number] [facility] 2024 09:30:00 2024 09:30:00 Outpatient R CATALINA STAPLETON [facility] [id number] [facility] 2024-01-04 00:00:00 2024-02-05 18:18:25 Patient Secure Msg Reyes Richards [facility] TE[facility] MATERNAL & [facility]ILD [facility] 1.840.114 350.1.13.10 4.2.7.2.686 [id number] 107 [id number] [facility] 2024-01-22 20:00:00 2024-01-22 20:20:00 Urgent Care Monty Cabrera Unknown, Attending [facility] 1.840.114 350.1.13.10 4.2.7.2.686 [id number] [facility] 2024-01-22 20:00:00 2024-01-22 20:00:00 Outpatient R CRISTINO ROSACOURTNEY [facility] [id number] [facility] 2024-01-06 00:00:00 2024-01-10 11:12:50 Patient Secure Msg CelsoCatalina lincoln [facility] 1.840.114 350.1.13.10 4.2.7.2.686 [id number] 044 [id number] [facility] 2024-01-05 00:00:00 2024-01-05 16:14:26 Patient Secure Msg Doctor Unassigned, Jenks [facility] 1.840.114 350.1.13.10 4.2.7.2.686 [id number] [facility] 2024-01-05 11:00:00 2024-01-05 11:08:18 Separations Scientist Visit Lab, Catalina Valles [facility] 1..840.114 350.1.13.10 4.2.7.2.686 [id number] [facility] 2024-01-05 10:30:00 2024-01-05 10:53:25 Outpatient R CATALINA STAPLETON [facility] [id number] [facility] 2024-01-05 10:30:00 2024-01-05 10:53:25 Office [facility] 1..840.114 350.1.13.10 4.2.7.2.686 [id number] [id number] [facility] 2024-01-04 00:00:00 2024-01-04 11:17:53 Telephone Catalina Stapleton [facility] 1..840.114 350.1.13.10 4.2.7.2.686 [id number] [facility] 2023-12-16 07:30:00 2023-12-16 07:30:00 Outpatient R CAPRICE STOVER [facility] [id number] [facility] 2023-12-13 00:00:00 2023-12-13 15:06:54 Telephone Caprice Stover [facility] 1..840.114 350.1.13.10 4.2.7.2.686 [id number] [facility] 2023-11-28 00:00:00 2023-11-28 00:00:00 Zoe Vegas [facility] MATERNAL & [facility]ILD [facility] 1..840.114 350.1.13.10 4.2.7.2.686 [id number] 107 [id number] [facility] 2023-11-08 00:00:00 2023-11-08 00:00:00 Telephone Reyes Richards [facility] & CHILD [facility] 1..114 350.1.13.10 4.2.7.2.686 [id number] 107 [id number] [facility] 2023-11-02 11:00:00 2023-11-02 11:29:39 Outpatient R REYES RICHARDS [facility] [id number] [facility] 2023-11-02 11:00:00 2023-11-02 11:29:39 Office Visit Reyes Richards [facility] & CHILD [facility] 1..114 350.1.13.10 4.2.7.2.686 [id number] 107 [id number] [facility] 2023-10-28 10:30:00 2023-10-28 10:30:00 Outpatient R ZOE GOODMAN [facility] [id number] [facility] 2023-10-25 08:00:00 2023-10-25 08:00:00 Outpatient R REYES RICHARDS [facility] [id number] [facility] 2023-10-19 00:00:00 2023-10-19 00:00:00 Telephone Reyes Richards [facility] TE[facility] & CHILD [facility] ..114 350.1.13.10 4.2.7.2.686 [id number] 107 [id number] [facility] 2023-10-14 00:00:00 2023-10-14 00:00:00 Telephone Reyes Richards [facility] TE[facility] & CHILD [facility] 1..114 350.1.13.10 4.2.7.2.686 [id number] 107 [id number] [facility] 2023-10-04 00:00:00 2023-10-04 00:00:00 Orders Only Doctor Unassigned, Jenks [facility] 1..114 350.1.13.10 4.2.7.2.686 [id number] [facility] 2023-09-24 13:00:00 2023-09-24 13:07:23 Outpatient R ZOE GOODMAN [facility] [id number] [facility] 2023-09-24 13:00:00 2023-09-24 13:07:23 Nurse Visit [facility] Zoe Goodman [facility] & CHILD [facility] 1.2.840.114 350.1.13.10 4.2.7.2.686 [id number] 107 [id number] [facility] 2023-09-23 14:00:00 2023-09-23 14:00:00 Outpatient R [facility] [id number] [facility] 2023-09-22 09:00:00 2023-09-22 09:00:00 Outpatient R [facility] [id number] [facility] 2023-09-21 00:00:00 2023-09-21 00:00:00 Patient Secure Tankpaula Reyes [place] [facility] & CHILD [facility] 1.2.840.114 350.1.13.10 4.2.7.2.686 [id number] 107 [id number] [facility] 2023-09-20 00:00:00 2023-09-20 00:00:00 Nurse Triage Alma Delia Smith [facility] 1.2.840.114 350.1.13.10 4.2.7.2.686 [id number] [facility] 2023-09-15 14:09:00 2023-09-19 13:41:00 Inpatient P ADRIEN [facility] [id number] [facility] 2023-09-15 14:09:00 2023-09-19 13:41:00 Hospital Encounter Adrien [facility] 1.2.840.114 350.1.13.10 4.2.7.2.686 [id number] [facility] 2023-09-16 13:00:00 2023-09-16 13:00:00 Outpatient P [facility] [id number] [facility] 2023-09-16 06:00:00 2023-09-16 07:53:00 Surgery Joe Bharti [facility] 1.2.840.114 350.1.13.10 4.2.7.2.686 [id number] [facility] 2023-09-16 01:20:00 2023-09-16 07:04:00 Anesthesia Event Bulmaro Newberry Rakesh B [facility] 1.2.840.114 350.1.13.10 4.2.7.2.686 [id number] [id number] [facility] 2023-09-15 10:45:00 2023-09-15 11:00:00 Routine Visit Reyes Richards [facility] WEL[facility] TECH [facility] MATERNAL & CHILD [facility] 1.2.840.114 350.1.13.10 4.2.7.2.686 [id number] 107 [id number] [facility] 2023-09-15 10:45:00 2023-09-15 10:45:00 Outpatient R REYES RICHARDS [facility] [id number] [facility] 2023-09-15 09:45:00 2023-09-15 10:20:23 Outpatient R SHANNAN VIRK [facility] [id number] [facility] 2023-09-15 09:45:00 2023-09-15 10:20:23 Routine Visit Risk, Ang-Rmchp-N p/High Shannan Virk [facility] MATERNAL & CHILD [facility] 1.2.840.114 350.1.13.10 4.2.7.2.686 [id number] 107 [id number] [facility] 2023-09-15 00:00:00 2023-09-15 00:00:00 Telephone Zoe Goodman [facility] TE[facility] & CHILD [facility] 1.840.114 350.1.13.10 4.2.7.2.686 [id number] 107 [id number] [facility] 2023-09-10 15:02:00 2023-09-10 19:58:00 Outpatient P HANNAH DANG SHANNON [facility] [id number] [facility] 2023-09-10 15:02:00 2023-09-10 19:58:00 Hospital Encounter Hannah Dang [facility] 1..114 350.1.13.10 4.2.7.2.686 [id number] [facility] 2023-09-10 13:00:00 2023-09-10 13:00:00 Routine Visit Reyes Richards [facility] W[facility] TECH [facility] & CHILD [facility] 1..114 350.1.13.10 4.2.7.2.686 [id number] 107 [id number] [facility] 2023-09-10 13:00:00 2023-09-10 12:17:44 Outpatient R REYES RICHARDS [facility] [id number] [facility] 2023-09-10 00:00:00 2023-09-10 00:00:00 Telephone Reyes Richards [facility] WEL[facility] TECH [facility] & CHILD [facility] 1..114 350.1.13.10 4.2.7.2.686 [id number] 107 [id number] [facility] 2023-09-10 00:00:00 2023-09-10 00:00:00 Nurse Triage Velia Mackenzie [facility] 1..114 350.1.13.10 4.2.7.2.686 [id number] [facility] 2023-09-10 00:00:00 2023-09-10 00:00:00 Telephone Reyes Richards [facility] WEL[facility] TECH [facility] & CHILD [facility] 1.2.840.114 350.1.13.10 4.2.7.2.686 [id number] 107 [id number] [facility] 2023-09-09 15:45:00 2023-09-09 16:18:01 Outpatient R REYES RICHRADS [facility] [id number] [facility] 2023-09-09 15:45:00 2023-09-09 16:18:01 Routine Visit Reyes Richards [facility] WEL[facility] TECH [facility] CHILD [facility] 1.2.840.114 350.1.13.10 4.2.7.2.686 [id number] 107 [id number] [facility] 2023-09-09 00:00:00 2023-09-09 00:00:00 Nurse Triage Victorino, [facility] 1.2.840.114 350.1.13.10 4.2.7.2.686 [id number] [facility] 2023-09-09 00:00:00 2023-09-09 00:00:00 Telephone Reyes Richards [facility] WEL[facility] TECH [facility] & CHILD [facility] 1.2.840.114 350.1.13.10 4.2.7.2.686 [id number] 107 [id number] [facility] 2023-09-03 15:30:00 2023-09-03 15:30:00 Routine Visit Reyes Richards [facility] WEL[facility] TECH [facility] & CHILD [facility] 1.2.840.114 350.1.13.10 4.2.7.2.686 [id number] 107 [id number] [facility] 2023-09-03 15:30:00 2023-09-03 14:42:39 Outpatient R REYES RICHARDS [facility] [id number] [facility] 2023-09-03 00:00:00 2023-09-03 00:00:00 Nurse Triage Luis Alma Delia Tinsley [facility] 1..840.114 350.1.13.10 4.2.7.2.686 [id number] [id number] [facility] 2023-09-03 00:00:00 2023-09-03 00:00:00 Telephone Reyes Richards [facility] W[facility] TECH [facility]ILD [facility] 1.2.840.114 350.1.13.10 4.2.7.2.686 [id number] 107 [id number] [facility] 2023-09-02 08:00:00 2023-09-02 08:27:59 Outpatient HANNAH RAMÍREZ SHANNON [facility] [id number] [facility] 2023-09-02 08:00:00 2023-09-02 08:27:59 Separations Scientist Visit Ultrasound, Hannah Mi [facility] WEL[facility] TECH [facility] & CHILD [facility] 1.2.840.114 350.1.13.10 4.2.7.2.686 [id number] [facility] 2023-09-02 00:00:00 2023-09-02 00:00:00 Case Management Zoe Goodman [facility] TE[facility] & CHILD [facility] 1..840.114 350.1.13.10 4.2.7.2.686 [id number] 107 [id number] [facility] 2023-09-01 13:45:00 2023-09-01 14:54:59 Outpatient R SHANNAN VIRK [facility] [id number] [facility] 2023-09-01 13:45:00 2023-09-01 14:54:59 Routine Visit Risk, JoieN p/High VirkShannan [facility] WEL[facility] TECH [facility] & CHILD [facility] 1.84.114 350.1.13.10 4.2.7.2.686 [id number] 107 [id number] [facility] 2023-08-27 00:00:00 2023-08-27 00:00:00 Orders Only Doctor Unassigned, Jenks [facility] 1..114 350.1.13.10 4.2.7.2.686 [id number] [facility] 2023-08-26 15:30:00 2023-08-26 16:11:06 Outpatient R REYES RICHARDS [facility] [id number] [facility] 2023-08-26 15:30:00 2023-08-26 16:11:06 Routine Visit Reyes Richards [facility] WELDER TECH [facility] 1.840.114 350.1.13.10 4.2.7.2.686 [id number] 107 [id number] [facility] 2023-08-25 15:15:00 2023-08-25 15:15:00 Outpatient R REYES RICHARDS [facility] [id number] [facility] 2023-08-18 00:00:00 2023-08-18 00:00:00 Orders Only Doctor Unassigned, Jenks [facility] 1..114 350.1.13.10 4.2.7.2.686 [id number] [facility] 2023-08-11 10:00:00 2023-08-11 10:47:14 Outpatient R REYES RICHARDS [facility] [id number] [facility] 2023-08-11 10:00:00 2023-08-11 10:47:14 Routine Visit Reyes Richards [facility] WELDER TECH [facility] & CHILD [facility] 1..114 350.1.13.10 4.2.7.2.686 [id number] 107 [id number] [facility] 2023-08-02 17:48:00 2023-08-02 20:20:00 Outpatient X SIERRA-GRACIELA S, BETTIE SIERRA-GRACIELA S, BETTIE [facility] [id number] [facility] 2023-08-02 17:48:00 2023-08-02 20:20:00 Emergency Sierra-Graciela s, Bettie [facility] 1..114 350.1.13.10 4.2.7.2.686 [id number] [facility] 2023-08-02 00:00:00 2023-08-02 00:00:00 [facility]..114 350.1.13.10 4.2.7.2.686 [id number] [facility] 2023-07-29 15:45:00 2023-07-29 16:04:58 Outpatient R REYES RICHARDS [facility] [id number] [facility] 2023-07-29 15:45:00 2023-07-29 16:04:58 Routine Visit Reyes Richards [facility] WELDER TECH [facility] MATERNAL & CHILD [facility] 1..114 350.1.13.10 4.2.7.2.686 [id number] 107 [id number] [facility] 2023-07-18 20:32:00 2023-07-18 22:40:00 Outpatient X SIRERA-GRACIELA S, BETTIE SIERRA-GRACIELA S, BETTIE [facility] [id number] [facility] 2023-07-18 20:32:00 2023-07-18 22:40:00 Emergency Jose Arceo Sierra-Graciela s, Bettie [facility] 1.2.840.114 350.1.13.10 4.2.7.2.686 [id number] [facility] 2023-07-18 00:00:00 2023-07-18 00:00:00 Nurse Triage Jayde Nation [facility] 1.2840.114 350.1.13.10 4.2.7.2.686 [id number] [id number] [facility] 2023-07-13 00:00:00 2023-07-13 00:00:00 Case Management Zoe Goodman [facility] WEL[facility] TE[facility] MATERNAL & CHILD [facility] 1.2840.114 350.1.13.10 4.2.7.2.686 [id number] 107 [id number] [facility] 2023-07-12 13:45:00 2023-07-12 14:01:59 Outpatient R REYES RICHARDS [facility] [id number] [facility] 2023-07-12 13:45:00 2023-07-12 14:01:59 Routine Visit Reyes Richards [facility] WELDER TECH [facility] & CHILD [facility] 1.20.114 350.1.13.10 4.2.7.2.686 [id number] 107 [id number] [facility] 2023-07-09 13:30:00 2023-07-09 13:30:00 Outpatient R ZOE GOODMAN [facility] [id number] [facility] 2023-06-30 14:15:00 2023-06-30 15:11:25 Outpatient R ZOE GOODMAN [facility] [id number] [facility] 2023-06-30 14:15:00 2023-06-30 15:11:25 Routine Visit Zoe Goodman [facility] WELDER TECH [facility] & CHILD [facility] 1.2840.114 350.1.13.10 4.2.7.2.686 [id number] 107 [id number] [facility] 2023-06-02 14:15:00 2023-06-02 15:28:00 Outpatient R ZOE GOODMAN [facility] [id number] [facility] 2023-06-02 14:15:00 2023-06-02 15:28:00 Routine Visit Zoe Goodman [facility] WELDER TECH [facility]ILD [facility] 1.2.840.114 350.1.13.10 4.2.7.2.686 [id number] 107 [id number] [facility] 2023-05-20 00:00:00 2023-05-20 00:00:00 [facility] 1.2840.114 350.1.13.10 4.2.7.2.686 [id number] 107 [id number] [facility] 2023-05-19 14:45:00 2023-05-19 16:00:00 Separations Scientist Visit Ultrasound, Hannah Mi [facility] 1.20.114 350.1.13.10 4.2.7.2.686 [id number] [facility] 2023-05-19 14:45:00 2023-05-19 14:45:00 Outpatient P HANNAH DANG SHANNON [facility] [id number] [facility] 2023-05-05 14:15:00 2023-05-05 14:59:44 Outpatient R ZOE GOODMAN [facility] [id number] [facility] 2023-05-05 14:15:00 2023-05-05 14:59:44 Routine Visit Zoe Goodman [facility] WELDER TECH [facility] CHILD [facility] 1.2840.114 350.1.13.10 4.2.7.2.686 [id number] 107 [id number] [facility] 2023-04-19 00:00:00 2023-04-19 00:00:00 Telephone Zoe Goodman [facility] WELDER TECH [facility] 1.2.840.114 350.1.13.10 4.2.7.2.686 [id number] 107 [id number] [facility] 2023-04-08 14:15:00 2023-04-08 15:04:18 Outpatient R ZOE GOODMAN [facility] [id number] [facility] 2023-04-08 14:15:00 2023-04-08 15:04:18 Routine Visit Zoe Goodman [facility] WELDER TECH [facility] 1.2.840.114 350.1.13.10 4.2.7.2.686 [id number] 107 [id number] [facility] 2023-03-30 00:00:00 2023-03-30 00:00:00 Case Management Zoe Goodman [facility] WELDER TECH [facility] 1.2.840.114 350.1.13.10 4.2.7.2.686 [id number] 107 [id number] [facility] 2023-03-29 13:15:00 2023-03-29 13:30:00 Separations Scientist [facility] Sangeeta [facility] & CHILD [facility] 1.2.840.114 350.1.13.10 4.2.7.2.686 [id number] 107 [id number] [facility] 2023-03-29 11:15:00 2023-03-29 11:46:14 Outpatient P ALEXA WATKINS SANGEETA [facility] [id number] [facility] 2023-03-29 11:15:00 2023-03-29 11:46:14 Separations Scientist Visit Ultrasound, Alexa Miranda [facility] TE[facility] MATERNAL & CHILD [facility] 1.2.840.114 350.1.13.10 4.2.7.2.686 [id number] [facility] 2023-03-29 00:00:00 2023-03-29 00:00:00 Case Management Reyes Richards [facility] & CHILD [facility] 1.2.840.114 350.1.13.10 4.2.7.2.686 [id number] 107 [id number] [facility] 2023-03-26 00:00:00 2023-03-26 00:00:00 Telephone Zeo Goodman [facility] TE[facility] MATERNAL & CHILD [facility] 1.2.840.114 350.1.13.10 4.2.7.2.686 [id number] 107 [id number] [facility] 2023-03-24 00:00:00 2023-03-24 00:00:00 Telephone Zoe Goodman [facility] & CHILD [facility] 1.2.840.114 350.1.13.10 4.2.7.2.686 [id number] 107 [id number] [facility] 2023-03-23 00:00:00 2023-03-23 00:00:00 Refill Zoe Goodman [facility] TE[facility] MATERNAL & CHILD [facility] 1.2.840.114 350.1.13.10 4.2.7.2.686 [id number] 107 [id number] [facility] 2023-03-15 00:00:00 2023-03-15 00:00:00 Telephone Zoe Goodman [facility] TE[facility] MATERNAL & CHILD [facility] 1.2.840.114 350.1.13.10 4.2.7.2.686 [id number] [facility] 2023-03-11 14:15:00 2023-03-11 14:52:50 Outpatient R ZOE GOODMAN [facility] [id number] [facility] 2023-03-11 14:15:00 2023-03-11 14:52:50 Routine Visit Zoe Goodman [facility] MATERNAL & CHILD [facility] 1..840.114 350.1.13.10 4.2.7.2.686 [id number] 107 [id number] [facility] 2023-03-04 08:45:00 2023-03-04 08:45:00 Outpatient R [facility] [id number] [facility] 2023-03-04 00:00:00 2023-03-04 00:00:00 Case Management Zoe Goodman [facility] MATERNAL & CHILD [facility] 1..840.114 350.1.13.10 4.2.7.2.686 [id number] 107 [id number] [facility] 2023-03-04 00:00:00 2023-03-04 00:00:00 Telephone Zoe Goodman [facility] TE[facility] & CHILD [facility] 1..840.114 350.1.13.10 4.2.7.2.686 [id number] 107 [id number] [facility] 2023-03-03 15:30:00 2023-03-03 15:45:33 Outpatient P HANNAH DANG SHANNON [facility] [id number] [facility] 2023-03-03 15:30:00 2023-03-03 15:45:33 Separations Scientist Visit 4, [facility] Us Room Hannah Dang [facility] 1.840.114 350.1.13.10 4.2.7.2.686 [id number] [facility] 2023-03-02 00:00:00 2023-03-02 00:00:00 Telephone Zoe Goodman [facility] WELDER TECH [facility] & CHILD [facility] 1.2.840.114 350.1.13.10 4.2.7.2.686 [id number] 107 [id number] [facility] 2023-03-01 19:14:00 2023-03-01 20:36:00 Emergency X SADE KAREN [facility] ERT [id number] [facility] 2023-03-01 19:14:00 2023-03-01 20:36:00 Emergency VenkatrosemaryannKaren [facility] 1.2.840.114 350.1.13.10 4.2.7.2.686 [id number] [facility] 2023-03-01 00:00:00 2023-03-01 00:00:00 Telephone Zoe Goodman [facility] WELDER TECH [facility] CHILD [facility] 1.2.840.114 350.1.13.10 4.2.7.2.686 [id number] 107 [id number] [facility] 2023-02-27 00:00:00 2023-02-27 00:00:00 Nurse Triage Fermin Pathak [facility] 1.2.840.114 350.1.13.10 4.2.7.2.686 [id number] [facility] 2023-02-11 08:45:00 2023-02-11 09:47:24 Outpatient R ZOE GOODMAN [facility] [id number] [facility] 2023-02-11 08:45:00 2023-02-11 09:47:24 Initial Visit Zoe Goodman [facility] WELDER TECH [facility] & CHILD [facility] 1.2.840.114 350.1.13.10 4.2.7.2.686 [id number] [facility] 2023-02-11 00:00:00 2023-02-11 00:00:00 Orders Only Doctor Unassigned, Jenks [facility] 1.2.840.114 350.1.13.10 4.2.7.2.686 [id number] [facility] 2023-02-04 08:15:00 2023-02-04 08:15:00 Outpatient R ZOE GOODMAN [facility] [id number] [facility] 2023-01-05 11:00:00 2023-01-05 11:00:00 Outpatient R CATALINA STAPLETON [facility] [id number] [facility] 2022-12-30 16:20:00 2022-12-30 16:49:52 Outpatient R KAYLENE JOHNSTON [facility] [id number] [facility] 2022-12-30 16:20:00 2022-12-30 16:49:52 Urgent Care Kaylene Johnston Unknown, Attending [facility] 1.2.840.114 350.1.13.10 4.2.7.2.686 [id number] [facility] 2022-12-30 00:00:00 2022-12-30 00:00:00 Orders Only Doctor Unassigned, Jenks [facility] 1.2.840.114 350.1.13.10 4.2.7.2.686 [id number] [facility] 2022-12-25 00:00:00 2022-12-25 00:00:00 Refill Catalina Stapleton [facility] 1.2.840.114 350.1.13.10 4.2.7.2.686 [id number] [facility] 2022-08-10 13:30:00 2022-08-10 13:30:00 Outpatient R CATALINA STAPLETON [facility] [id number] [facility] 2022-08-07 00:00:00 2022-08-07 00:00:00 Telephone Catalina Stapleton [facility] 1..840.114 350.1.13.10 4.2.7.2.686 [id number] [facility] 2022-08-07 00:00:00 2022-08-07 00:00:00 Patient Secure Msg Doctor Unassigned, Jenks [facility] 1.840.114 350.1.13.10 4.2.7.2.686 [id number] [facility] 2022-05-18 09:20:00 2022-05-18 09:40:00 Urgent Care Anum Guerra [facility] 1.840.114 350.1.13.10 4.2.7.2.686 [id number] [facility] 2022-05-18 09:20:00 2022-05-18 09:36:56 Outpatient R ANUM GUERRA [facility] [id number] [facility] 2022-05-18 00:00:00 2022-05-18 00:00:00 Letter (Out) Provider, Jonathan [facility] 1..840.114 350.1.13.10 4.2.7.2.686 [id number] [facility] 2022-05-05 00:00:00 2022-05-05 00:00:00 Refill Caprice Stover [facility] 1.840.114 350.1.13.10 4.2.7.2.686 [id number] [facility] 2022-03-30 16:00:00 2022-03-30 16:00:00 Outpatient R CATALINA STAPLETON [facility] [id number] [facility] 2022-03-30 16:00:00 2022-03-30 16:00:00 Outpatient R CATALINA STAPLETON [facility] [id number] [facility] 2022-03-30 16:00:00 2022-03-30 16:00:00 Outpatient R CATALINA STAPLETON [facility] [id number] [facility] 2022-03-06 14:00:00 2022-03-06 14:23:04 Outpatient R CHRISTINE PENA [facility] [id number] [facility] 2022-03-06 14:00:00 2022-03-06 14:23:04 Urgent Care Christine Pena Kimberly J [facility] 1..840.114 350.1.13.10 4.2.7.2.686 [id number] [facility] 2022-03-06 14:00:00 2022-03-06 14:23:04 Outpatient R CHRISTINE PENA [facility] [id number] [facility] 2022-03-05 09:00:00 2022-03-05 09:20:04 Outpatient R CHRISTINE PENA [facility] [id number] [facility] 2022-03-05 09:00:00 2022-03-05 09:20:04 Urgent Care Britney Escudero Christine [facility] 1..840.114 350.1.13.10 4.2.7.2.686 [id number] [facility] 2022-02-16 15:30:00 2022-02-16 15:45:00 Separations Scientist Visit Lab, Caprice Jean [facility] 1..840.114 350.1.13.10 4.2.7.2.686 [id number] [facility] 2022-02-16 15:30:00 2022-02-16 15:30:00 Outpatient R CAPRICE STOVER [facility] [id number] [facility] 2022-02-16 14:30:00 2022-02-16 15:19:04 Office Visit CelsoCatalina lincoln [facility] 1.2.840.114 350.1.13.10 4.2.7.2.686 [id number] [facility] 2022-02-16 14:30:00 2022-02-16 15:19:04 Outpatient R CATALINA STAPLETON [facility] [id number] [facility] 2022-02-16 14:30:00 2022-02-16 14:30:00 Outpatient R CELSOSalazar CATALINA [facility] [id number] [facility] 2022-02-06 13:00:00 2022-02-06 13:00:00 Outpatient R YESENIA STOVERLIE [facility] [id number] [facility] 2022-01-16 11:00:00 2022-01-16 11:00:00 Urgent Care Nayi, LudaRhonda Mccarthytany [facility]?MANSISalazar [facility] 1.2.840.114 350.1.13.10 4.2.7.2.686 [id number] [facility] 2022-01-16 11:00:00 2022-01-16 09:54:38 Outpatient R ANUM GUERRA [facility] [id number] [facility] 2021-12-12 18:00:00 2021-12-12 18:48:04 Outpatient R MONTY CABRERA [facility] [id number] [facility] 2021-12-12 18:00:00 2021-12-12 18:20:00 Urgent Care Monty Cabrera Unknown, Attending [facility] 1..840.114 350.1.13.10 4.2.7.2.686 [id number] [facility] 2021-12-12 11:20:00 2021-12-12 11:20:00 Outpatient R MONTY CABRERA [facility] [id number] [facility] 2021-12-08 17:45:00 2021-12-08 18:20:03 Outpatient R NICOLAS HERNANDEZDEEJAY [facility] [id number] [facility] 2021-12-08 17:45:00 2021-12-08 18:20:03 Office Visit Milagros Hernandezsalazar Unger [facility] WELDER TECH [facility] MATERNAL & CHILD [facility] 1..840.114 350.1.13.10 4.2.7.2.686 [id number] [facility] 2021-12-04 15:30:00 2021-12-04 15:30:00 Outpatient R REYES RICHARDS [facility] [id number] [facility] 2021-12-02 15:45:00 2021-12-02 15:45:00 Outpatient R REYES RICHARDS [facility] [id number] [facility] 2021-11-21 14:15:00 2021-11-21 14:15:00 Outpatient P REYES RICHARDS [facility] [id number] [facility] 2021-11-21 13:00:00 2021-11-21 13:00:00 Outpatient P [facility] [id number] [facility] 2021-11-20 00:00:00 2021-11-20 00:00:00 Telephone Reyes Richards [facility] WELDER TECH [facility] MATERNAL & CHILD [facility] 1..840.114 350.1.13.10 4.2.7.2.686 [id number] 107 [id number] [facility] 2021-11-07 09:15:00 2021-11-07 10:05:09 Outpatient R BRITTA BRUCE [facility] [id number] [facility] 2021-11-07 09:15:00 2021-11-07 10:05:09 Routine Visit Trimester, [facility] 1.840.114 350.1.13.10 4.2.7.2.686 [id number] [facility] 2021-11-07 09:15:00 2021-11-07 10:05:09 Outpatient R BRITTA BRUCE [facility] [id number] [facility] 2021-11-06 14:45:00 2021-11-06 14:45:00 Routine Visit Reyes Richards [facility] WELDER TECH [facility]ERNAL & [facility] 1..840.114 350.1.13.10 4.2.7.2.686 [id number] [facility] 2021-11-06 14:45:00 2021-11-06 10:06:06 Outpatient R REYES RICHARDS [facility] [id number] [facility] 2021-11-04 07:19:00 2021-11-04 10:56:00 Emergency X EUN SANTOS [facility] ERT [id number] [facility] 2021-11-04 07:19:00 2021-11-04 10:56:00 Emergency Eun Santos [facility] 1..840.114 350.1.13.10 4.2.7.2.686 [id number] [facility] 2021-11-04 07:19:00 2021-11-04 10:56:00 Emergency X EUN SANTOS [facility] ERT [id number] [facility] 2021-11-04 00:00:00 2021-11-04 00:00:00 Orders Only Doctor Unassigned, Jenks [facility] 1.2840.114 350.1.13.10 4.2.7.2.686 [id number] [facility] 2021-10-27 00:00:00 2021-10-27 00:00:00 Nurse Triage Velia Mackenzie [facility] 1.2.840.114 350.1.13.10 4.2.7.2.686 [id number] [facility] 2021-10-23 09:20:00 2021-10-23 09:20:00 Outpatient R JAKE KOCH III [facility] [id number] [facility] 2021-10-21 14:00:00 2021-10-21 15:22:33 Outpatient R REYES RICHARDS [facility] [id number] [facility] 2021-10-21 14:00:00 2021-10-21 15:22:33 Initial Visit Reyes Richards [facility] WELDER TECH [facility] 1.2.840.114 350.1.13.10 4.2.7.2.686 [id number] 107 [id number] [facility] 2021-10-21 00:00:00 2021-10-21 00:00:00 Orders Only Doctor Unassigned, Jenks [facility] 1.2.840.114 350.1.13.10 4.2.7.2.686 [id number] [facility] 2021-05-09 11:00:00 2021-05-09 11:00:00 Outpatient R HERMELINDO MATIAS [facility] [id number] [facility] 2021-03-05 14:00:00 2021-03-05 14:00:00 Outpatient R REYES RICHARDS [facility] [id number] [facility] 2021-02-19 16:48:57 2021-02-19 17:22:20 Routine Visit Vincent Hernandez [facility] WELDER TECH [facility] & CHILD [facility] 1.2840.114 350.1.13.10 4.2.7.2.686 [id number] 107 [id number] [facility] 2021-02-19 16:30:00 2021-02-19 16:30:00 Outpatient R VINCENT HERNANDEZ [facility] [id number] [facility] 2021-02-06 10:20:00 2021-02-06 11:16:00 Emergency Josee Arrington [facility] 1.2840.114 350.1.13.10 4.2.7.2.686 [id number] [facility] 2021-01-23 00:00:00 2021-01-23 00:00:00 Patient Secure Msg Doctor Unassigned, Jenks [facility] 1.840.114 350.1.13.10 4.2.7.2.686 [id number] 107 [id number] [facility] 2021-01-10 09:30:00 2021-01-10 09:30:00 Outpatient R REYES RICHARDS [facility] [id number] [facility] 2021-01-09 00:00:00 2021-01-09 00:00:00 Reyes Blum [facility] WELDER TECH [facility] CHILD [facility] 1.840.114 350.1.13.10 4.2.7.2.686 [id number] 107 [id number] [facility] 2021-01-09 00:00:00 2021-01-09 00:00:00 Orders Only Doctor Unassigned, Jenks [facility] 1.2840.114 350.1.13.10 4.2.7.2.686 [id number] [facility] 2021-01-08 08:00:00 2021-01-08 08:00:00 Outpatient R REYES RICHARDS [facility] [id number] [facility] 2021-01-07 15:00:00 2021-01-07 21:17:00 Hospital Encounter Sarika Fuller [facility] 1.20.114 350.1.13.10 4.2.7.2.686 [id number] [facility] 2021-01-07 00:00:00 2021-01-07 00:00:00 Telephone Reyes Richards [facility] WELDER TECH [facility] & CHILD [facility] 1.0.114 350.1.13.10 4.2.7.2.686 [id number] 107 [id number] [facility] 2021-01-07 00:00:00 2021-01-07 00:00:00 Orders Only Doctor Unassigned, Jenks [facility] 1..114 350.1.13.10 4.2.7.2.686 [id number] [facility] 2021-01-03 13:00:00 2021-01-03 13:00:00 Outpatient R TIMA HERRING [facility] [id number] [facility] 2021-01-03 11:07:56 2021-01-03 12:07:53 Routine Visit Reyes Richards [facility] WELDER TECH [facility] 1..114 350.1.13.10 4.2.7.2.686 [id number] 107 [id number] [facility] 2021-01-03 11:00:00 2021-01-03 11:00:00 Outpatient R REYES RICHARDS [facility] [id number] [facility] 2021-01-02 00:00:00 2021-01-02 00:00:00 Nurse Triage Eloisa Wilson [facility] 1..114 350.1.13.10 4.2.7.2.686 [id number] [facility] 2021-01-01 13:11:31 2021-01-01 13:26:31 Routine Visit Reyes Richards [facility] WELDER TECH [facility] & CHILD [facility] 1..114 350.1.13.10 4.2.7.2.686 [id number] 107 [id number] [facility] 2021-01-01 13:15:00 2021-01-01 13:15:00 Outpatient R SUSIE REYES [facility] [id number] [facility] 2020-12-29 11:56:00 2020-12-29 12:16:00 Laboratory Only Lab, Adc Fam Pob Nathan Pena [facility] ..114 350.1.13.10 4.2.7.2.686 [id number] [facility] 2020-12-29 11:40:00 2020-12-29 11:40:00 Outpatient R [facility] [id number] [facility] 2020-12-27 00:00:00 2020-12-27 00:00:00 Abstract Reyes Richards [facility] WELDER TECH [facility] CHILD [facility] 1..114 350.1.13.10 4.2.7.2.686 [id number] 107 [id number] [facility] 2020-12-27 00:00:00 2020-12-27 00:00:00 Telephone Reyes Richards [facility] WELDER TECH [facility] CHILD [facility] 1..114 350.1.13.10 4.2.7.2.686 [id number] 107 [id number] [facility] 2020-12-26 00:00:00 2020-12-26 00:00:00 Telephone Reyes Richards [facility] WELDER TECH [facility] & CHILD [facility] 1.0.114 350.1.13.10 4.2.7.2.686 [id number] 107 [id number] [facility] 2020-12-25 13:29:28 2020-12-25 14:41:02 Routine Visit Reyes Richards [facility] WELDER TECH [facility] & CHILD [facility] 1.0.114 350.1.13.10 4.2.7.2.686 [id number] 107 [id number] [facility] 2020-12-25 14:00:00 2020-12-25 14:00:00 Outpatient R REYES RICHARDS [facility] [id number] [facility] 2020-12-25 12:57:01 2020-12-25 13:27:01 Separations Scientist Visit Ultrasound, Rashel Tinoco [facility] WELDER TECH [facility] & CHILD [facility] 1..114 350.1.13.10 4.2.7.2.686 [id number] [facility] 2020-12-23 16:00:00 2020-12-23 16:00:00 Outpatient R TIMA HERRING [facility] [id number] [facility] 2020-12-18 13:00:00 2020-12-18 13:00:00 Outpatient R REYES RICHARDS [facility] [id number] [facility] 2020-12-18 00:00:00 2020-12-18 00:00:00 Patient Secure Msg Doctor Unassigned, Jenks [facility] 1..114 350.1.13.10 4.2.7.2.686 [id number] [facility] 2020-12-09 10:52:02 2020-12-09 11:07:02 Routine Visit Reyes Richards [facility] WELDER TECH [facility] & CHILD [facility] 1.0.114 350.1.13.10 4.2.7.2.686 [id number] 107 [id number] [facility] 2020-12-09 11:00:00 2020-12-09 11:00:00 Outpatient R REYES RICHARDS [facility] [id number] [facility] 2020-12-07 00:00:00 2020-12-07 00:00:00 Nurse Triage Subhash Shae [facility] 1..114 350.1.13.10 4.2.7.2.686 [id number] [facility] 2020-12-04 12:48:15 2020-12-04 13:45:19 Office Visit Tima Herring [facility] 1.84.114 350.1.13.10 4.2.7.2.686 [id number] [facility] 2020-12-04 13:00:00 2020-12-04 13:00:00 Outpatient R TIMA HERRING [facility] [id number] [facility] 2020-12-04 10:12:46 2020-12-04 10:59:17 Routine Visit Reyes Richards [facility] WELDER TECH [facility] MATERNAL & CHILD [facility] 1.84.114 350.1.13.10 4.2.7.2.686 [id number] 107 [id number] [facility] 2020-12-04 00:00:00 2020-12-04 00:00:00 Letter (Out) Reyes Richards [facility] WELDER TECH [facility] & CHILD [facility] 1..114 350.1.13.10 4.2.7.2.686 [id number] 107 [id number] [facility] 2020-11-27 13:00:50 2020-11-27 13:30:50 Separations Scientist Visit Ultrasound, Rashel Tinoco [facility] WELDER TECH [facility] CHILD [facility] 1..840.114 350.1.13.10 4.2.7.2.686 [id number] [facility] 2020-11-27 13:00:00 2020-11-27 13:00:00 Outpatient P [facility] [id number] [facility] 2020-11-27 00:00:00 2020-11-27 00:00:00 Abstract Reyes Richards [facility] WELDER TECH [facility] & CHILD [facility] 1..840.114 350.1.13.10 4.2.7.2.686 [id number] 107 [id number] [facility] 2020-11-20 15:44:37 2020-11-20 15:59:37 Routine Visit Reyes Richards [facility] WELDER TECH [facility] 1..840.114 350.1.13.10 4.2.7.2.686 [id number] 107 [id number] [facility] 2020-11-20 15:45:00 2020-11-20 15:45:00 Outpatient R REYES RICHARDS [facility] [id number] [facility] 2020-11-08 13:30:00 2020-11-08 13:30:00 Outpatient R REYES RICHARDS [facility] [id number] [facility] 2020-11-08 11:07:29 2020-11-08 11:48:32 Routine Visit Reyes Richards [facility] WELDER TECH [facility] CHILD [facility] 1..840.114 350.1.13.10 4.2.7.2.686 [id number] 107 [id number] [facility] 2020-11-08 11:00:00 2020-11-08 11:00:00 Outpatient R REYES RICHARDS [facility] [id number] [facility] 2020-11-06 10:45:00 2020-11-06 10:45:00 Outpatient R REYES RICHARDS [facility] [id number] [facility] 2020-10-30 12:59:19 2020-10-30 13:29:19 Separations Scientist Visit Ultrasound, Tyler Gentile [facility] WELDER TECH [facility] MATERNAL & CHILD [facility] 1..840.114 350.1.13.10 4.2.7.2.686 [id number] [facility] 2020-10-30 13:00:00 2020-10-30 13:00:00 Outpatient P [facility] [id number] [facility] 2020-10-30 00:00:00 2020-10-30 00:00:00 Abstract Reyes Richards [facility] WELDER TECH [facility] MATERNAL & CHILD [facility] 1..840.114 350.1.13.10 4.2.7.2.686 [id number] 107 [id number] [facility] 2020-10-25 13:14:35 2020-10-25 13:46:56 Routine Visit Reyes Richards [facility] WELDER TECH [facility] & CHILD [facility] 1..840.114 350.1.13.10 4.2.7.2.686 [id number] 107 [id number] [facility] 2020-10-25 13:00:00 2020-10-25 13:00:00 Outpatient R REYES RICHARDS [facility] [id number] [facility] 2020-10-18 12:45:00 2020-10-18 12:45:00 Outpatient R REYES RICHARDS [facility] [id number] [facility] 2020-10-14 00:00:00 2020-10-14 00:00:00 Telephone Reyes Richards [facility] TE[facility] MATERNAL & CHILD [facility] 1..840.114 350.1.13.10 4.2.7.2.686 [id number] [facility] 2020-10-11 14:37:11 2020-10-11 15:21:23 Routine Visit Reyes Richards [facility] & CHILD [facility] 1..840.114 350.1.13.10 4.2.7.2.686 [id number] [facility] 2020-10-11 14:30:00 2020-10-11 14:30:00 Outpatient R REYES RICHARDS [facility] [id number] [facility] 2020-10-10 00:00:00 2020-10-10 00:00:00 Patient Secure Msg Doctor Unassigned, Jenks [facility] TE[facility] CHILD [facility] 1..840.114 350.1.13.10 4.2.7.2.686 [id number] [facility] 2020-10-08 09:16:07 2020-10-08 10:17:01 Urgent Care Provider, [facility] .840.114 350.1.13.10 4.2.7.2.686 [id number] [facility] 2020-10-08 09:00:00 2020-10-08 09:00:00 Outpatient R CRISTIAN DAY [facility] [id number] [facility] 2020-10-07 00:00:00 2020-10-07 00:00:00 Abstract Reyes Richards [facility] 1.840.114 350.1.13.10 4.2.7.2.686 [id number] [facility] 2020-10-02 14:40:05 2020-10-02 15:25:05 Separations Scientist Visit Ultrasound, Rashel Tinoco [facility] MATERNAL & CHILD [facility] 1.2.840.114 350.1.13.10 4.2.7.2.686 [id number] [facility] 2020-10-02 14:30:00 2020-10-02 14:30:00 Outpatient P [facility] [id number] [facility] 2020-10-02 00:00:00 2020-10-02 00:00:00 Telephone Reyes Richards [facility] MATERNAL & CHILD [facility] 1.2.840.114 350.1.13.10 4.2.7.2.686 [id number] [facility] 2020-09-23 09:00:00 2020-09-23 09:00:00 Outpatient R REYES RICHARDS [facility] [id number] [facility] 2020-09-20 14:50:44 2020-09-20 15:12:59 Routine Visit Reyse Richards [facility] & CHILD [facility] 1.2.840.114 350.1.13.10 4.2.7.2.686 [id number] 107 [id number] 2020-09-20 14:50:44 2020-09-20 15:12:59 Routine Visit Reyes Richards [facility] WELDER TECH [facility] & CHILD [facility] 1.2.840.114 350.1.13.10 4.2.7.2.686 [id number] 107 [id number] [facility] 2020-09-20 15:00:00 2020-09-20 15:00:00 Outpatient R REYES RICHARDS [facility] [id number] [facility] 2020-09-20 14:00:00 2020-09-20 14:00:00 Outpatient R REYES RICHARDS [facility] [id number] [facility] 2020-09-09 00:00:00 2020-09-09 00:00:00 Abstract Reyes Richards [facility] WELDER TECH [facility] & CHILD [facility] 1.2.840.114 350.1.13.10 4.2.7.2.686 [id number] 107 [id number] 2020-09-09 00:00:00 2020-09-09 00:00:00 Abstract Reyes Richards [facility] WELDER TECH [facility] & CHILD [facility] 1.2.840.114 350.1.13.10 4.2.7.2.686 [id number] 107 [id number] [facility] 2020-09-05 13:33:01 2020-09-05 15:36:46 Separations Scientist Visit 2, [facility] Room [facility] 1.2840.114 350.1.13.10 4.2.7.2.686 [id number] 104 [id number] 2020-09-05 13:33:01 2020-09-05 15:36:46 Separations Scientist Visit 2, [facility] Us Room Gretchen arroyo [facility] 1.2840.114 350.1.13.10 4.2.7.2.686 [id number] 104 [id number] [facility] 2020-09-05 13:30:00 2020-09-05 13:30:00 Outpatient P [facility] [id number] [facility] 2020-09-05 13:00:00 2020-09-05 13:00:00 Outpatient P [facility] [id number] [facility] 2020-09-05 00:00:00 2020-09-05 00:00:00 Letter (Out) Gretchen arroyo [facility] 1.2840.114 350.1.13.10 4.2.7.2.686 [id number] 104 [id number] 2020-09-05 00:00:00 2020-09-05 00:00:00 Letter (Out) Gretchen arroyo [facility] 1.114 350.1.13.10 4.2.7.2.686 [id number] 104 [id number] [facility] 2020-08-23 14:04:04 2020-08-23 15:06:18 Routine Visit Reyes Richards [facility] WELDER TECH [facility] MATERNAL & CHILD [facility] 1..114 350.1.13.10 4.2.7.2.686 [id number] 107 [id number] 2020-08-23 14:04:04 2020-08-23 15:06:18 Routine Visit Reyes Richards [facility] WELDER TECH [facility] CHILD [facility] 1..114 350.1.13.10 4.2.7.2.686 [id number] 107 [id number] [facility] 2020-08-23 14:00:00 2020-08-23 14:00:00 Outpatient R GERALD RICHARDSOLA [facility] [id number] [facility] 2020-07-29 09:15:00 2020-07-29 09:15:00 Outpatient R [facility] [id number] [facility] 2020-07-29 08:08:23 2020-07-29 08:53:23 Telemedici ne Visit [facility] CHILD [facility] 1..114 350.1.13.10 4.2.7.2.686 [id number] 107 [id number] 2020-07-29 08:08:23 2020-07-29 08:53:23 Telemedici ne Visit Faculty, Ran Fenton [facility] WELDER TECH [facility] & CHILD [facility] 1..114 350.1.13.10 4.2.7.2.686 [id number] 107 [id number] [facility] 2020-07-26 14:10:32 2020-07-26 14:29:49 Routine Visit Reyes Richards [facility] WELDER TECH [facility] MATERNAL & CHILD [facility] 1.20.114 350.1.13.10 4.2.7.2.686 [id number] 107 [id number] 2020-07-26 14:10:32 2020-07-26 14:29:49 Routine Visit Reyes Richards [facility] WELDER TECH [facility] CHILD [facility] 1.20.114 350.1.13.10 4.2.7.2.686 [id number] 107 [id number] [facility] 2020-07-26 14:00:00 2020-07-26 14:00:00 Outpatient R REYES RICHARDS [facility] [id number] [facility] 2020-07-25 13:00:00 2020-07-25 13:00:00 Outpatient R REYES RICHARDS [facility] [id number] [facility] 2020-07-19 00:00:00 2020-07-19 00:00:00 Abstract Reyes Richards [facility] WELDER TECH [facility] MATERNAL & CHILD [facility] 1..114 350.1.13.10 4.2.7.2.686 [id number] 107 [id number] 2020-07-19 00:00:00 2020-07-19 00:00:00 Abstract Reyes Richards [facility] WELDER TECH [facility] CHILD [facility] 1..114 350.1.13.10 4.2.7.2.686 [id number] 107 [id number] [facility] 2020-07-18 13:50:07 2020-07-18 14:09:23 Separations Scientist Visit Lab, [facility] 1.2.114 350.1.13.10 4.2.7.2.686 [id number] 113 [id number] 2020-07-18 13:50:07 2020-07-18 14:09:23 Separations Scientist Visit Lab, [facility] [place] 1.2.840.114 350.1.13.10 4.2.7.2.686 [id number] 113 [id number] [facility] 2020-07-18 14:00:00 2020-07-18 14:00:00 Outpatient R [facility] [id number] [facility] 2020-07-18 12:59:10 2020-07-18 13:43:54 Separations Scientist Visit 1, [facility] Room [facility] 1.2.840.114 350.1.13.10 4.2.7.2.686 [id number] 104 [id number] 2020-07-18 12:59:10 2020-07-18 13:43:54 Separations Scientist Visit 1, [facility] Room [facility] [place] 1.2.840.114 350.1.13.10 4.2.7.2.686 [id number] 104 [id number] [facility] 2020-07-18 00:00:00 2020-07-18 00:00:00 Letter (Out) [facility] 1.2.840.114 350.1.13.10 4.2.7.2.686 [id number] 104 [id number] 2020-07-18 00:00:00 2020-07-18 00:00:00 Case Management [facility] 1.2.840.114 350.1.13.10 4.2.7.2.686 [id number] 113 [id number] 2020-07-18 00:00:00 2020-07-18 00:00:00 Letter (Out) [facility] 1.2.840.114 350.1.13.10 4.2.7.2.686 [id number] 104 [id number] [facility] 2020-07-18 00:00:00 2020-07-18 00:00:00 Case Management [facility] 1.840.114 350.1.13.10 4.2.7.2.686 [id number] 113 [id number] [facility] 2020-07-16 00:00:00 2020-07-16 00:00:00 Patient Secure Msg Doctor Unassigned, Jenks [facility] WELDER TECH [facility] CHILD [facility] 1.2.840.114 350.1.13.10 4.2.7.2.686 [id number] 107 [id number] [facility] 2020-07-15 08:10:49 2020-07-15 16:33:08 Telemedici ne Visit Faculty, Jonathan Mercedes lars [facility] WELDER TECH [facility] 1.2840.114 350.1.13.10 4.2.7.2.686 [id number] 107 [id number] 2020-07-15 08:10:49 2020-07-15 16:33:08 Telemedici ne Visit Faculty, Hannah Lozano [facility] WELDER TECH [facility] CHILD [facility] 1.840.114 350.1.13.10 4.2.7.2.686 [id number] 107 [id number] [facility] 2020-07-15 10:30:00 2020-07-15 10:30:00 Outpatient R [facility] [id number] [facility] 2020-07-14 00:00:00 2020-07-14 00:00:00 Nurse Triage Jayde Nation [facility] 1.2840.114 350.1.13.10 4.2.7.2.686 [id number] 019 [id number] 2020-07-14 00:00:00 2020-07-14 00:00:00 Nurse Triage Jayde Nation [facility] 1.2.840.114 350.1.13.10 4.2.7.2.686 [id number] 019 [id number] [facility] 2020-07-01 00:00:00 2020-07-01 00:00:00 Abstract Reyes Richards [facility] WELDER TECH [facility] MATERNAL & CHILD [facility] 1.2.840.114 350.1.13.10 4.2.7.2.686 [id number] 107 [id number] 2020-07-01 00:00:00 2020-07-01 00:00:00 Abstract Reyes Richards [facility] WELDER TECH [facility] & CHILD [facility] 1.2.840.114 350.1.13.10 4.2.7.2.686 [id number] 107 [id number] [facility] 2020-06-28 12:40:24 2020-06-28 13:25:24 Separations Scientist Visit 1, [facility] Room [facility] 1.2.840.114 350.1.13.10 4.2.7.2.686 [id number] 104 [id number] 2020-06-28 12:40:24 2020-06-28 13:25:24 Separations Scientist Visit 1, [facility] Us Room [facility] 1.2.840.114 350.1.13.10 4.2.7.2.686 [id number] 104 [id number] [facility] 2020-06-28 13:00:00 2020-06-28 13:00:00 Outpatient P [facility] [id number] [facility] 2020-06-27 13:00:22 2020-06-27 13:39:22 Routine Visit TankGerald mitchelldane Bay [facility] WELDER TECH [facility] & CHILD [facility] 1.2.840.114 350.1.13.10 4.2.7.2.686 [id number] 107 [id number] 2020-06-27 13:00:22 2020-06-27 13:39:22 Routine Visit TankSabino mitchellilola Phu [facility] WELDER TECH [facility] MATERNAL & CHILD [facility] 1.2.840.114 350.1.13.10 4.2.7.2.686 [id number] 107 [id number] [facility] 2020-06-27 13:00:00 2020-06-27 13:00:00 Outpatient R REYES RICHARDS [facility] [id number] [facility] 2020-06-26 09:15:00 2020-06-26 09:15:00 Outpatient R REYES RICHARDS [facility] [id number] [facility] 2020-06-17 10:47:26 2020-06-17 11:48:07 Routine Visit Faculty, Jonathan Mercedes [facility] WELDER TECH [facility] MATERNAL & CHILD [facility] 1..114 350.1.13.10 4.2.7.2.686 [id number] 107 [id number] 2020-06-17 10:47:26 2020-06-17 11:48:07 Routine Visit Faculty, Jonathan Garciarandall [facility] Alexa Watkins [facility] WELDER TECH [facility] & CHILD [facility] 1..114 350.1.13.10 4.2.7.2.686 [id number] 107 [id number] [facility] 2020-06-17 10:30:00 2020-06-17 10:30:00 Outpatient R [facility] [id number] [facility] 2020-06-17 00:00:00 2020-06-17 00:00:00 Orders Only Doctor Unassigned, Jenks [facility] .114 350.1.13.10 4.2.7.2.686 [id number] [id number] [facility] 2020-06-13 09:00:00 2020-06-13 09:00:00 Outpatient R [facility] [id number] [facility] 2020-06-03 00:00:00 2020-06-03 00:00:00 Reyes Blum [facility] WELDER TECH [facility] & CHILD [facility] 1..114 350.1.13.10 4.2.7.2.686 [id number] 107 [id number] [facility] 2020-05-28 13:09:30 2020-05-28 14:10:12 Initial Visit Reyes Richards TXVIBHA WELDER TECH [facility] MATERNAL & CHILD [facility] 1.2.840.114 350.1.13.10 4.2.7.2.686 [id number] 107 [id number] [facility] 2020-05-28 13:00:00 2020-05-28 13:00:00 Outpatient R REYES RICHARDS [facility] [id number] [facility] 2020-05-28 00:00:00 2020-05-28 00:00:00 Orders Only Doctor Unassigned, Jenks [facility] 1.2.840.114 350.1.13.10 4.2.7.2.686 [id number] [facility] 2020-05-15 00:00:00 2020-05-15 00:00:00 Telephone Reyes Richards [facility] WELDER TECH [facility] & CHILD [facility] 1..840.114 350.1.13.10 4.2.7.2.686 [id number] 107 [id number] [facility] 2020-03-27 09:45:00 2020-03-27 09:45:00 Outpatient R REYES RICHARDS [facility] [id number] [facility] 2020-03-11 13:30:00 2020-03-11 13:30:00 Outpatient R REYES RICHARDS [facility] [id number] [facility] 2020-03-11 00:00:00 2020-03-11 00:00:00 Telephone Reyes Richards [facility] WELDER TECH [facility] & CHILD [facility] 1.2.840.114 350.1.13.10 4.2.7.2.686 [id number] 107 [id number] [facility] 2020-02-19 15:54:50 2020-02-19 16:20:25 Routine Visit Reyes Richards [facility] WELDER TECH [facility] & CHILD [facility] 1.2840.114 350.1.13.10 4.2.7.2.686 [id number] 107 [id number] [facility] 2020-02-19 16:00:00 2020-02-19 16:00:00 Outpatient R REYES RICHARDS [facility] [id number] [facility] 2020-02-13 09:00:00 2020-02-13 09:00:00 Outpatient R REYES RICHARDS [facility] [id number] [facility] 2020-01-19 19:18:00 2020-01-22 17:30:00 Hospital Encounter Rebecca Hoff [facility] 1.0.114 350.1.13.10 4.2.7.2.686 [id number] [facility] 2020-01-19 15:53:23 2020-01-19 16:37:17 Routine Visit TankGerald [place] [facility]N [facility] CHILD [facility] 1.840.114 350.1.13.10 4.2.7.2.686 [id number] 107 [id number] [facility] 2020-01-19 16:00:00 2020-01-19 16:00:00 Outpatient R REYES RICHARDS [facility] [id number] [facility] 2020-01-19 00:00:00 2020-01-19 00:00:00 Orders Only Doctor Unassigned, Jenks [facility] 1.2840.114 350.1.13.10 4.2.7.2.686 [id number] [facility] 2020-01-11 14:50:53 2020-01-11 15:22:24 Routine Visit Provider, Joycelyn Rose [facility] WELDER TECH [facility] & CHILD [facility] 1.840.114 350.1.13.10 4.2.7.2.686 [id number] 107 [id number] [facility] 2020-01-11 15:00:00 2020-01-11 15:00:00 Outpatient R [facility] [id number] [facility] 2020-01-05 14:12:11 2020-01-05 14:27:11 Routine Visit Susie Reyes Bay [facility] WELDER TECH [facility] & CHILD [facility] 1.2.840.114 350.1.13.10 4.2.7.2.686 [id number] 107 [id number] [facility] 2020-01-05 14:15:00 2020-01-05 14:15:00 Outpatient R GERALD RICHARDSOLA [facility] [id number] [facility] 2020-01-01 00:00:00 2020-01-01 00:00:00 Nurse Triage Shannan Munguia [facility] 1.2.840.114 350.1.13.10 4.2.7.2.686 [id number] 019 [id number] [facility] 2020-01-01 00:00:00 2020-01-01 00:00:00 Nurse Triage Kaylene Dorsey [facility] 1.2.840.114 350.1.13.10 4.2.7.2.686 [id number] 019 [id number] [facility] 2019-12-29 00:00:00 2019-12-29 00:00:00 Telephone Reyes Richards Phu [facility] WELDER TECH [facility] & CHILD [facility] 1.2.840.114 350.1.13.10 4.2.7.2.686 [id number] 107 [id number] [facility] 2019-12-28 00:00:00 2019-12-28 00:00:00 Nurse Triage Toshia Tan [facility] 1.2.840.114 350.1.13.10 4.2.7.2.686 [id number] 019 [id number] [facility] 2019-12-20 14:30:00 2019-12-20 14:30:00 Outpatient R REYES RICHARDS [facility] [id number] [facility] 2019-12-20 11:43:03 2019-12-20 14:19:06 Telemedici ne Visit Reyes Richards [facility] WELDER TECH [facility] CHILD [facility] 1.2.840.114 350.1.13.10 4.2.7.2.686 [id number] 107 [id number] [facility] 2019-12-14 18:31:58 2019-12-14 23:45:00 Emergency Amy Matias Vien Cam [facility] 1.2.840.114 350.1.13.10 4.2.7.2.686 [id number] [id number] [facility] 2019-12-04 12:49:08 2019-12-04 14:24:22 Telemedici ne Visit Reyes Richards Phu [facility] WELDER TECH [facility] CHILD [facility] 1.2.840.114 350.1.13.10 4.2.7.2.686 [id number] 107 [id number] [facility] 2019-12-04 14:00:00 2019-12-04 14:00:00 Outpatient R REYES RICHARDS [facility] [id number] [facility] 2019-11-24 00:00:00 2019-11-24 00:00:00 Telephone Sabino Richardsildane Bay [facility] WELDER TECH [facility] CHILD [facility] 1.2.840.114 350.1.13.10 4.2.7.2.686 [id number] 107 [id number] [facility] 2019-11-21 13:34:25 2019-11-21 14:28:43 Routine Visit SusieReyes Phu [facility] WELDER TECH [facility] CHILD [facility] 1.2.840.114 350.1.13.10 4.2.7.2.686 [id number] 107 [id number] [facility] 2019-11-21 14:00:00 2019-11-21 14:00:00 Outpatient R REYES RICHARDS [facility] [id number] [facility] 2019-11-21 00:00:00 2019-11-21 00:00:00 Orders Only Doctor Unassigned, Jenks [facility] 1.2840.114 350.1.13.10 4.2.7.2.686 [id number] [facility] 2019-11-08 00:00:00 2019-11-08 00:00:00 Telephone Reyes Richards [facility] WELDER TECH [facility] MATERNAL & CHILD [facility] 1.2.840.114 350.1.13.10 4.2.7.2.686 [id number] 107 [id number] [facility] 2019-11-07 07:56:19 2019-11-07 09:14:35 Routine Visit Reyes Richards TXVIBHA WELDER TECH [facility] MATERNAL & CHILD [facility] 1.2.840.114 350.1.13.10 4.2.7.2.686 [id number] 107 [id number] [facility] 2019-11-07 08:00:00 2019-11-07 08:00:00 Outpatient R REYES RICHARDS [facility] [id number] [facility] 2019-11-06 14:00:00 2019-11-06 14:00:00 Outpatient R REYES RICHARDS [facility] [id number] [facility] 2019-11-03 00:00:00 2019-11-03 00:00:00 Telephone Reyes Richards [facility] WELDER TECH [facility] CHILD [facility] 1.2.840.114 350.1.13.10 4.2.7.2.686 [id number] 107 [id number] [facility] 2019-10-25 00:00:00 2019-10-25 00:00:00 Telephone Reyes Richards [facility] WELDER TECH [facility] CHILD [facility] 1.2.840.114 350.1.13.10 4.2.7.2.686 [id number] 107 [id number] [facility] 2019-10-18 14:43:00 2019-10-18 18:45:00 Hospital Encounter Sarika Fuller [facility] 1.2.840.114 350.1.13.10 4.2.7.2.686 [id number] [facility] 2019-10-18 14:43:00 2019-10-18 14:43:00 Outpatient P SARIKA FULLER [facility] [id number] [facility] 2019-10-09 13:43:54 2019-10-09 14:44:59 Routine Visit Reyes Richards [facility] WELDER TECH [facility] CHILD [facility] 1.2840.114 350.1.13.10 4.2.7.2.686 [id number] 107 [id number] [facility] 2019-10-09 13:45:00 2019-10-09 13:45:00 Outpatient R REYES RICHARDS [facility] [id number] [facility] 2019-10-08 00:00:00 2019-10-08 00:00:00 Nurse Triage Shannan Mungiua [facility] 1.2840.114 350.1.13.10 4.2.7.2.686 [id number] [facility] 2019-09-19 00:00:00 2019-09-19 00:00:00 Abstract Reyes Richards [facility] WELDER TECH [facility] CHILD [facility] 1.2.840.114 350.1.13.10 4.2.7.2.686 [id number] 107 [id number] [facility] 2019-09-15 14:15:00 2019-09-15 15:34:37 Outpatient P TYLER FERNANDEZ [facility] [id number] [facility] 2019-09-11 13:57:39 2019-09-11 14:43:22 Routine Visit Reyes Richards [facility] WELDER TECH [facility] MATERNAL & [facility] 1.2.840.114 350.1.13.10 4.2.7.2.686 [id number] 107 [id number] [facility] 2019-09-09 08:42:00 2019-09-09 09:45:00 Hospital Encounter Swati Vang [facility] 1.2.840.114 350.1.13.10 4.2.7.2.686 [id number] [facility] 2019-09-09 00:00:00 2019-09-09 00:00:00 Nurse Triage Sebastian Karina Martinez [facility] 1.2.840.114 350.1.13.10 4.2.7.2.686 [id number] [facility] 2019-08-07 16:11:15 2019-08-07 16:33:12 Separations Scientist Visit Lab, [facility] 1.2.840.114 350.1.13.10 4.2.7.2.686 [id number] [facility] 2019-07-27 18:02:33 2019-07-27 20:29:00 Emergency X CASSIDYFROY BROWNJOSE [facility] E[facility] [id number] [facility] 2019-07-09 04:46:46 2019-07-09 06:27:00 Emergency X DEVIN MATHEW [facility] ERT [id number] [facility] Results Test Description Test Time Test Comments Results Result Co mments Source [facility] [id number] 19:52:28* Test Item Value Reference Range Interpretation Comme nts VZV IgG antibody (test code = 90541-8) Negative Negative MILLIE (test code = MILLIE) Positive - Indicat es the patient was exposed to VZV through infection or vaccination.Negative - Indicates the patient could be susceptible to VZV infection.Equivocal - A second specimen should be sent for testing. [facility] - SYPHILIS IGG/[id number] 17:19:58* Test Item Value Reference Range Interpretation Comme [facility] Syphilis IgG/IgM (test code = 49542-4) Nonreactive Nonreactive Syphilis Serology Interpretation (test code = 72639-8) No serologic evidence of syphilis. If recent exposure is suspected, retest in 2 to 4 weeks. MILLIE (test code = MILLIE) ? [facility] Northwest[facility]cos[facility] Hemoglobin (A1C)2025-03-07 09:27:17* Test Item Value Reference Range Interpretation Comme [facility] HGB A1C (test code = 4548-4) 5.1 % 4.0-5.7 MILLIE (test code = MILLIE) Reference RangesNormal: <5.7%Prediabetes: 5.7 - 6.4%Diabetes: > 6.5% Lab Interpretation (test code = 82820-4) Normal [facility]HI [facility]2 AG-AB WITH [id number] 07:08:57* Test Item Value Reference Range Interpretation Comme [facility] HIV Semi-quantitative (test code = 07317-6) 0.11 Negative MILLIE (test code = MILLIE) Non-reactive for HIV-1 antigen and HIV-1/HIV-2 antibodies. ?No laboratory evidence of HIV infection. ?Repeat in 2-4 weeks if acute HIV infection is suspected. [facility] NorthwestHCV [id number] 05:57:26* Test Item Value Reference Range Interpretation Comme [facility] HCV Ab (test code = 04760-4) Negative HCV Semi-Quantitative (test code = 63756-9) 0.01 [facility] NorthwestHEPATITIS B SURFACE [id number] 05:40:02 * Test Item Value Reference Range Interpretation Comme [facility] HBsAg Semi-Quantitative (akbar t code = 5195-3) 0.1 Negative [facility] NorthwestPRENATAL WORKUP, BLOOD [id number] 05:19:00 * Test Item Value Reference Range Interpretation Comme nts ABO & RH (test code = 20) A POSITIVE IAT (test code = 1185) Negative [facility] NorthwestCBC WITH [id number] 04:13:03* Test Item Value Reference Range Interpretation [...] 31.6 g/dL 31.6-35.1 RDW-SD (test code = 17618-4) 40 fL 39.0-49.9 RDW-CV (test code = 788-0) 12.4 % 12.0-15.5 PLT (test code = 777-3) 438 166-358 H MPV (test code = 00813-2) 9.6 fL 9.5-12.9 NRBC/100 WBC (test code = 9943919341) 0 0.0-10.0 NRBC x10^3 (test code = 1372959385) See_Comment [Automated messa ge] The system which generated this result transmitted reference range: 10*3/?L. The reference range was not used to interpret this result as normal/abnormal. GRAN MAT (NEUT) % (test code = 770-8) 70.8 % IMM GRAN % (test code = 5877794342) 0.5 % LYMPH % (test code = 736-9) 21.2 % MONO % (test code = 5905-5) 6.1 % EOS % (test code = 713-8) 0.9 % BASO % (test code = 706-2) 0.5 % GRAN MAT x10^3(ANC) (test code = 9848643334) 8.37 10*3/uL 1.88-7.09 H IMM GRAN x10^3 (test code = 4888091653) 0.06 10*3/uL 0.00-0.06 LYMPH x10^3 (test code = 731-0) 2.5 10*3/uL 1.32-3.29 MONO x10^3 (test code = 742-7) 0.72 10*3/uL 0.33-0.92 EOS x10^3 (test code = 711-2) 0.11 10*3/uL 0.03-0.39 BASO x10^3 (test code = 704-7) 0.06 10*3/uL 0.01-0.07 Lab Interpretation (test code = 33356-5) Abnormal [facility]. Metabolic Panel (27585)2025-03-07 03:53:17* Test Item Value Reference Range Interpretation Comme nts NA (test code = 5377374746) 139 mmol/L 135-145 K (test code = 1331138397) 4.2 mmol/L 3.5-5.0 CL (test code = 2719394178) 107 mmol/L 98-108 CO2 TOTAL (test code = 2737808403) 19 mmol/L 23-31 L AGAP (test code = 2653965446) 13 2-16 BUN (test code = 3323673694) 7 mg/dL 7-23 GLUCOSE (test code = 7307918597) 92 mg/dL 70-110 CREATININE (test code = 2160-0) 0.55 mg/dL 0.50-1.04 TOTAL BILI (test code = 2708781557) 0.6 mg/dL 0.1-1.1 CALCIUM (test code = 1855175271) 9.5 mg/dL 8.6-10.6 T PROTEIN (test code = 9403741028) 8 g/dL 6.3-8.2 ALBUMIN (test code = 5050581970) 4.4 g/dL 3.5-5.0 ALK PHOS (test code = 7322673699) 49 U/L 34-122 ALTv (test code = 1742-6) 25 U/L 5-35 AST(SGOT) (test code = 1375296494) 21 U/L 13-40 eGFR (test code = 54273-4) 130.6 mL/min/1.73m2 CKD-EPI eGFR (2020). Assuming creatinine has been stable day-to-day for at least three months, the eGFR indicates Category G1 (>= 90 mL/min/1.73 m2) Lab Interpretation (test code = 27374-6) [facility] w/o Specific Esnwjfb1687-03-82 14:58:00* Test Item Value Reference Range Interpretation [...] = 3257) ~50 Negative - Negati ve [facility] Lyac7092-57-26 14:56:00* Test Item Value Reference Range Interpretation Comme nts POCT PREG (test code = 1605) Positive On board controls acceptable with C Line (test code = 3574) Yes POCT PREG LOT # (test code = 3575) POCT PREG TEST DATE ( test code = 3576) [facility] NorthwestInsulin, [id number] 18:48:31* Test Item Value Reference Range Interpretation Comme [facility] Insulin (test code = 7510859510) 12.4 1.9-23.0 Lab Interpretation (test cod e = 49536-6) Normal [facility] NorthwestVitamin B12, Yeayy2725-37-89 05:57:34* Test Item Value Reference Range Interpretation Comme [facility] VIT B12 (test code = 3704068886) 318 pg/mL 240-930 MILLIE (test code = MILLIE) Biotin has been reported to cause a positive bias, interpret results relative to patient's use of biotin. Lab Interpretation (test code = 11009-1) Normal [facility] NorthwestVitamin D, [id number] 21:06:31* Test Item Value Reference Range Interpretation Comme [facility] VIT D 25OH (test code = 58339-7) 39 ng/mL 25-80 MILLIE (test code = MILLIE) Deficiency: <20 ng/mLInsufficiency : 20-24 ng/mLOptimal: 25-80 ng/mL Lab Interpretation (test code = 59792-9) Normal [facility] NorthwestComp. Metabolic Panel (46622)2024-01-05 19:58:35* Test Item Value Reference Range Interpretation Comme nts NA (test code = 3543727735) 138 mmol/L 135-145 K (test code = 8436167362) 4.2 mmol/L 3.5-5.0 CL (test code = 1524621017) 107 mmol/L 98-108 CO2 TOTAL (test code = 4332317890) 24 mmol/L 23-31 AGAP (test code = 5990181011) 7 2-16 BUN (test code = 9692905878) 8 mg/dL 7-23 GLUCOSE (test code = 8538356797) 94 mg/dL 70-110 CREATININE (test code = 2160-0) 0.56 mg/dL 0.50-1.04 TOTAL BILI (test code = 5408724777) 0.7 mg/dL 0.1-1.1 CALCIUM (test code = 1570709080) 9.5 mg/dL 8.6-10.6 T PROTEIN (test code = 2335023618) 8.0 g/dL 6.3-8.2 ALBUMIN (test code = 0639781316) 4.4 g/dL 3.5-5.0 ALK PHOS (test code = 2258361776) 75 U/L 34-122 ALTv (test code = 1742-6) 19 U/L 5-35 AST(SGOT) (test code = 0933712362) 21 U/L 13-40 eGFR (test code = 20710-3) 130.9 mL/min/1.73m2 CKD-EPI eGFR (20 21). Assuming creatinine has been stable day-to-day for at least three months, the eGFR indicates Category G1 (>= 90 mL/min/1.73 m2) [facility] NorthwestGlycosylated Hemoglobin (A1C)2024-01-05 19:42:10* Test Item Value Reference Range Interpretation Comme nts HGB A1C (test code = 4548-4) 4.9 % 4.0-5.7 MILLIE (test code = MILLIE) Reference RangesNormal: <5.7%Prediabetes: 5.7 - 6.4%Diabetes: > 6.5% Lab Interpretation (test code = 18775-8) Normal [facility] with Clzg8704-12-33 23:00:45* Test Item Value Reference Range Interpretation [...] 32.5 g/dL 31.6-35.1 RDW-SD (test code = 96573-7) 41.0 fL 39.0-49.9 RDW-CV (test code = 788-0) 12.9 % 12.0-15.5 PLT (test code = 777-3) 304 166-358 MPV (test code = 41416-6) 10.4 fL 9.5-12.9 NRBC/100 WBC (test code = 2065486195) 0.0 0.0-10.0 NRBC x10^3 (test code = 5048578011) See_Comment [Automated message] The system which generated this result transmitted reference range: 10*3/?L. The reference range was not used to interpret this result as normal/abnormal. GRAN MAT (NEUT) % (test code = 770-8) 84.2 % IMM GRAN % (test code = 2361958879) 0.50 % LYMPH % (test code = 736-9) 8.4 % MONO % (test code = 5905-5) 6.6 % EOS % (test code = 713-8) 0.1 % BASO % (test code = 706-2) 0.2 % GRAN MAT x10^3(ANC) (test code = 6664028908) 14.96 10*3/uL 1.88-7.09 H IMM GRAN x10^3 (test code = 6197277159) 0.09 10*3/uL 0.00-0.06 H LYMPH x10^3 (test code = 731-0) 1.50 10*3/uL 1.32-3.29 MONO x10^3 (test code = 742-7) 1.18 10*3/uL 0.33-0.92 H EOS x10^3 (test code = 711-2) 0.03-0.39 L BASO x10^3 (test code = 704-7) 0.03 10*3/uL 0.01-0.07 Lab Interpretation (test code = 15661-6) Abnormal [facility] with Kfqf2378-35-60 23:00:45* Test Item Value Reference Range Interpretation [...] 32.5 g/dL 31.6-35.1 RDW-SD (test code = 16487-6) 41.0 fL 39.0-49.9 RDW-CV (test code = 788-0) 12.9 % 12.0-15.5 PLT (test code = 777-3) 304 166-358 MPV (test code = 01939-9) 10.4 fL 9.5-12.9 NRBC/100 WBC (test code = 5004181225) 0.0 0.0-10.0 NRBC x10^3 (test code = 3611763476) See_Comment [Automated message] The system which generated this result transmitted reference range: 10*3/?L. The reference range was not used to interpret this result as normal/abnormal. GRAN MAT (NEUT) % (test code = 770-8) 84.2 % IMM GRAN % (test code = 6935809333) 0.50 % LYMPH % (test code = 736-9) 8.4 % MONO % (test code = 5905-5) 6.6 % EOS % (test code = 713-8) 0.1 % BASO % (test code = 706-2) 0.2 % GRAN MAT x10^3(ANC) (test code = 8385916713) 14.96 10*3/uL 1.88-7.09 H IMM GRAN x10^3 (test code = 6210287801) 0.09 10*3/uL 0.00-0.06 H LYMPH x10^3 (test code = 731-0) 1.50 10*3/uL 1.32-3.29 MONO x10^3 (test code = 742-7) 1.18 10*3/uL 0.33-0.92 H EOS x10^3 (test code = 711-2) 0.03-0.39 L BASO x10^3 (test code = 704-7) 0.03 10*3/uL 0.01-0.07 Lab Interpretation (test code = 72216-9) Abnormal [facility] GLUCOSE (AUTOMATED)2023-09-16 21:10:51* Test Item Value Reference Range Interpretation Comme nts POCT GLU (test code = 9546042060) 94 mg/dL 70-110 Lab Interpretation (test cod e = 40692-4) Normal [facility] GLUCOSE (AUTOMATED)2023-09-16 21:10:51* Test Item Value Reference Range Interpretation Comme nts POCT GLU (test code = 6146323685) 94 mg/dL 70-110 Lab Interpretation (test cod e = 21404-3) Normal [facility] (D) IMMUNE LXFHKTBC6348-93-53 17:43:00* Test Item Value Reference Range Interpretation Comme nts RHIG CANDIDATE? (test code = 5188) No- see comment Patient is not a candidate for RhIg- Patient is Rh Positive.Performed at [facility] Laboratory Services - [facility] Blood [address] [place] [address]Pzgr Free: [phone] No. [id number] [facility] (D) IMMUNE BTTDKAKP4078-48-20 17:43:00* Test Item Value Reference Range Interpretation Comme nts RHIG CANDIDATE? (test code = 5188) No- see comment Patient is not a candidate for RhIg- Patient is Rh Positive.Performed at [facility] Laboratory Services - [facility] Blood [address] [address]Ppct Free: [phone] No. [id number] [facility] ONLY - SYPHILIS IGG/GOR9074-90-48 16:10:09* Test Item Value Reference Range Interpretation Comme nts Syphilis IgG/IgM (test code = 96457-4) Non-reactive Non-reactive MILLIE (test code = MILLIE) Non-reactive - No serologic evidence of T. pallidum infection. Cannot exclude incubating or early syphilis. Submit a second specimen in 2-4 weeks if syphilis is clinically suspected. Equivocal - Further testing to follow. Reactive - Further testing to follow. Lab Interpretation (test code = 15920-7) Normal [facility] ONLY - SYPHILIS IGG/JMO1613-39-79 16:10:09* Test Item Value Reference Range Interpretation Comme [facility] Syphilis IgG/IgM (test code = 76176-4) Non-reactive Non-reactive MILLIE (test code = MILLIE) Non-reactive - No serologic evidence of T. pallidum infection. Cannot exclude incubating or early syphilis. Submit a second specimen in 2-4 weeks if syphilis is clinically suspected. Equivocal - Further testing to follow. Reactive - Further testing to follow. Lab Interpretation (test code = 76154-3) Normal [facility] Cord Isv8511-12-40 12:46:35* Test Item Value Reference Range Interpretation Comme nts VENOUS BASE EXCESS, CORD (te st code = 8599295092) -1.1 mEq/L VENOUS PH, CORD (test code = 7169317718) 7.35 7.25-7.45 VENOUS PC02, CORD (test code = 8805837923) 46 27-49 VENOUS PO2, CORD (test code = 6483837599) 23 17-41 VENOUS BICARBONATE, CORD (te st code = 9539148898) 25 12-29 [facility] Cord Axp2117-02-94 12:46:35* Test Item Value Reference Range Interpretation Comme nts VENOUS BASE EXCESS, CORD (te st code = 3332749238) -1.1 mEq/L VENOUS PH, CORD (test code = 1733855257) 7.35 7.25-7.45 VENOUS PC02, CORD (test code = 9900341739) 46 27-49 VENOUS PO2, CORD (test code = 2859988778) 23 17-41 VENOUS BICARBONATE, CORD (te st code = 8578443624) 25 12-29 [facility] Hburd7041-04-83 08:10:00 Bulmaro Newberry MD ? ? 09/16/2023 ?2:10 AM Central Neuraxial Block Date/Time: 09/16/2023 2:10 AM Performed by: Bulmaro Newberry MDAuthorized by: Alonso Reynolds MD ?Patient Location: OBEnd Time: 09/16/2023 2:10 AMReason for Block: OB request, Patient request, Labor analgesia, Surgical anesthesia and Post-op pain managementStaff: ?Anesthesiologist: Alonso Reynolds MD ?Resident/ENGINEER FISHING VESSEL: Bulmaro Newberry MD ?Performed by: resident/CRNAPreanesthetic Checklist: [...] and PARTH saline ?Guidance with: landmark technique}Epidural/Spinal Malta and/or Catheter: ?Epidural/Spinal Kit: BBraun ?Needle Type: [...] complications Epidural expectations; PCEA explained and fallprecautions given.[facility] 1/2 AG-AB WITH [id number] 03:20:38* Test Item Value Reference Range Interpretation Comme nts HIV Semi-quantitative (test code = 70927-8) 0.08 Negative MILLIE (test code = MILLIE) Non-reactive for HIV-1 antigen and HIV-1/HIV-2 antibodies. ?No laboratory evidence of HIV infection. ?Repeat in 2-4 weeks if acute HIV infection is suspected. [facility] 1/2 AG-AB WITH [id number] 03:20:38* Test Item Value Reference Range Interpretation Comme nts HIV Semi-quantitative (test code = 23468-3) 0.08 Negative MILLIE (test code = MILLIE) Non-reactive for HIV-1 antigen and HIV-1/HIV-2 antibodies. ?No laboratory evidence of HIV infection. ?Repeat in 2-4 weeks if acute HIV infection is suspected. [facility] B Surface Dvxkkvk2755-23-86 01:07:17 * Test Item Value Reference Range Interpretation Comme nts HBsAg Semi-Quantitative (akbar t code = 5195-3) 0.06 Negative [facility] B Surface Kyaaddy9327-08-59 01:07:17 * Test Item Value Reference Range Interpretation Comme nts HBsAg Semi-Quantitative (akbar t code = 5195-3) 0.[address] [facility] with Mgqhaulkmhfo4178-69-72 23:48:07* Test Item Value Reference Range Interpretation [...] 32.4 g/dL 31.6-35.1 RDW-SD (test code = 11851-9) 41.1 fL 39.0-49.9 RDW-CV (test code = 788-0) 13.0 % 12.0-15.5 PLT (test code = 777-3) 352 166-358 MPV (test code = 92181-5) 11.0 fL 9.5-12.9 NRBC/100 WBC (test code = 6387907731) 0.0 0.0-10.0 NRBC x10^3 (test code = 7476655054) See_Comment [Automated messa ge] The system which generated this result transmitted reference range: 10*3/?L. The reference range was not used to interpret this result as normal/abnormal. GRAN MAT (NEUT) % (test code = 770-8) 70.8 % IMM GRAN % (test code = 6265747116) 0.40 % LYMPH % (test code = 736-9) 19.9 % MONO % (test code = 5905-5) 8.2 % EOS % (test code = 713-8) 0.5 % BASO % (test code = 706-2) 0.2 % GRAN MAT x10^3(ANC) (test code = 8467355868) 8.71 10*3/uL 1.88-7.09 H IMM GRAN x10^3 (test code = 4757483538) 0.05 10*3/uL 0.00-0.06 LYMPH x10^3 (test code = 731-0) 2.45 10*3/uL 1.32-3.29 MONO x10^3 (test code = 742-7) 1.01 10*3/uL 0.33-0.92 H EOS x10^3 (test code = 711-2) 0.06 10*3/uL 0.03-0.39 BASO x10^3 (test code = 704-7) 0.01-0.07 Lab Interpretation (test code = 68490-3) Abnormal [facility] with Jittvsmpkoyg5798-09-17 23:48:07* Test Item Value Reference Range Interpretation [...] 32.4 g/dL 31.6-35.1 RDW-SD (test code = 83240-0) 41.1 fL 39.0-49.9 RDW-CV (test code = 788-0) 13.0 % 12.0-15.5 PLT (test code = 777-3) 352 166-358 MPV (test code = 77246-3) 11.0 fL 9.5-12.9 NRBC/100 WBC (test code = 9348741561) 0.0 0.0-10.0 NRBC x10^3 (test code = 3909834555) See_Comment [Automated messa ge] The system which generated this result transmitted reference range: 10*3/?L. The reference range was not used to interpret this result as normal/abnormal. GRAN MAT (NEUT) % (test code = 770-8) 70.8 % IMM GRAN % (test code = 9895106392) 0.40 % LYMPH % (test code = 736-9) 19.9 % MONO % (test code = 5905-5) 8.2 % EOS % (test code = 713-8) 0.5 % BASO % (test code = 706-2) 0.2 % GRAN MAT x10^3(ANC) (test code = 6524413402) 8.71 10*3/uL 1.88-7.09 H IMM GRAN x10^3 (test code = 7028785723) 0.05 10*3/uL 0.00-0.06 LYMPH x10^3 (test code = 731-0) 2.45 10*3/uL 1.32-3.29 MONO x10^3 (test code = 742-7) 1.01 10*3/uL 0.33-0.92 H EOS x10^3 (test code = 711-2) 0.06 10*3/uL 0.03-0.39 BASO x10^3 (test code = 704-7) 0.01-0.07 Lab Interpretation (test code = 82891-5) [facility] Screen - ONCE [id number] 23:36:00 * Test Item Value Reference Range Interpretation Comme nts ABO & RH (test code = 20) A POSITIVE IAT (test code = 1185) Negative [facility] NorthwestType and Screen - ONCE [id number] 23:36:00 * Test Item Value Reference Range Interpretation Comme nts ABO & RH (test code = 20) A POSITIVE IAT (test code = 1185) Negative [facility] NorthwestPOCT URINALYSIS W SPECIFIC ZXYZUHR6813-56-57 16:47:00* Test Item Value Reference Range Interpretation [...] POCT U APPEAR (test code = 3267) [facility] NorthwestLactate Bvagtikgfupbz1325-82-52 23:39:27* Test Item Value Reference Range Interpretation Comme nts LDH (test code = 5188689055) 136 U/L 120-246 Lab Interpretation (test cod e = 88815-0) Normal [facility] NorthwestUric Acid Bcbbx0308-85-42 23:38:06* Test Item Value Reference Range Interpretation Comme nts URIC ACID (test code = 8931276370) 4.4 mg/dL 2.9-6.0 Lab Interpretation (test cod e = 13165-0) [facility] Quwolzryoi5005-63-33 23:38:06* Test Item Value Reference Range Interpretation Comme [facility] CREATININE (test code = 1499870219) 0.35 mg/dL 0.50-1.04 L eGFR (test code = 33034-9) 146.6 mL/min/1.73m2 CKD-EPI eGFR (2020). Assuming creatinine has been stable day-to-day for at least three months, the eGFR indicates Category G1 (>= 90 mL/min/1.73 m2) Lab Interpretation (test code = 75651-5) [facility]normal [facility] Northwest[facility] (Asparate Amino Transfer)2023-09-10 23:38:06* Test Item Value Reference Range Interpretation Comme [facility] AST(SGOT) (test code = 3966571945) 17 U/L 13-40 Lab Interpretation (test cod e = 96953-4) Normal [facility] NorthwestAlanine Amino Transferase (SGPT)2023-09-10 23:38:05* Test Item Value Reference Range Interpretation Comme nts ALTv (test code = 1742-6) 14 U/L 5-35 Lab Interpretation (test cod e = 59686-3) Normal [facility] NorthwestCBC with Ilykjowjvrip3748-05-33 23:30:05* Test Item Value Reference Range Interpretation [...] 32.0 g/dL 31.6-35.1 RDW-SD (test code = 59316-9) 40.6 fL 39.0-49.9 RDW-CV (test code = 788-0) 12.8 % 12.0-15.5 PLT (test code = 777-3) 339 166-358 MPV (test code = 38853-8) 10.9 fL 9.5-12.9 NRBC/100 WBC (test code = 6339525296) 0.0 0.0-10.0 NRBC x10^3 (test code = 2157859470) See_Comment [Automated messa ge] The system which generated this result transmitted reference range: 10*3/?L. The reference range was not used to interpret this result as normal/abnormal. GRAN MAT (NEUT) % (test code = 770-8) 73.2 % IMM GRAN % (test code = 2129662157) 0.50 % LYMPH % (test code = 736-9) 17.6 % MONO % (test code = 5905-5) 8.0 % EOS % (test code = 713-8) 0.5 % BASO % (test code = 706-2) 0.2 % GRAN MAT x10^3(ANC) (test code = 6207638604) 9.48 10*3/uL 1.88-7.09 H IMM GRAN x10^3 (test code = 0999562796) 0.06 10*3/uL 0.00-0.06 LYMPH x10^3 (test code = 731-0) 2.28 10*3/uL 1.32-3.29 MONO x10^3 (test code = 742-7) 1.04 10*3/uL 0.33-0.92 H EOS x10^3 (test code = 711-2) 0.07 10*3/uL 0.03-0.39 BASO x10^3 (test code = 704-7) 0.01-0.07 Lab Interpretation (test code = 54133-4) Abnormal [facility] URINALYSIS W SPECIFIC [id number] 17:39:00* Test Item Value Reference Range Interpretation [...] U APPEAR (test code = 3267) . [facility] URINALYSIS W SPECIFIC [id number] 17:39:00* Test Item Value Reference Range Interpretation [...] U APPEAR (test code = 3267) . [facility] URINALYSIS W SPECIFIC [id number] 21:56:00* Test Item Value Reference Range Interpretation [...] U APPEAR (test code = 3267) . [facility] URINALYSIS W SPECIFIC [id number] 20:28:00* Test Item Value Reference Range Interpretation [...] POCT U APPEAR (test code = 3267) [facility] URINALYSIS W SPECIFIC [id number] 20:28:00* Test Item Value Reference Range Interpretation [...] POCT U APPEAR (test code = 3267) [facility] URINALYSIS W SPECIFIC [id number] 20:28:00* Test Item Value Reference Range Interpretation [...] POCT U APPEAR (test code = 3267) [facility] URINALYSIS W SPECIFIC [id number] 20:07:00* Test Item Value Reference Range Interpretation [...] U APPEAR (test code = 3267) . [facility] URINALYSIS W SPECIFIC [id number] 16:25:00* Test Item Value Reference Range Interpretation [...] U APPEAR (test code = 3267) . [facility] URINALYSIS W SPECIFIC [id number] 21:57:00* Test Item Value Reference Range Interpretation [...] U APPEAR (test code = 3267) .. [facility] URINALYSIS W SPECIFIC [id number] 21:57:00* Test Item Value Reference Range Interpretation [...] U APPEAR (test code = 3267) .. [facility] URINALYSIS W SPECIFIC [id number] 22:40:00* Test Item Value Reference Range Interpretation [...] U APPEAR (test code = 3267) . [facility] URINALYSIS W SPECIFIC [id number] 22:39:00* Test Item Value Reference Range Interpretation [...] U APPEAR (test code = 3267) . [facility] URINALYSIS W SPECIFIC [id number] 20:30:00* Test Item Value Reference Range Interpretation [...] POCT U APPEAR (test code = 3267) [facility] URINALYSIS W SPECIFIC [id number] 19:47:00* Test Item Value Reference Range Interpretation [...] POCT U APPEAR (test code = 3267) [facility] URINALYSIS W SPECIFIC [id number] 19:08:00* Test Item Value Reference Range Interpretation [...] POCT U APPEAR (test code = 3267) [facility] URINALYSIS W SPECIFIC [id number] 19:38:00* Test Item Value Reference Range Interpretation [...] U APPEAR (test code = 3267) . [facility] URINALYSIS W SPECIFIC [id number] 19:38:00* Test Item Value Reference Range Interpretation [...] U APPEAR (test code = 3267) . [facility] URINALYSIS W SPECIFIC [id number] 19:22:00* Test Item Value Reference Range Interpretation [...] POCT U APPEAR (test code = 3267) [facility] [id number] 00:21:00* Test Item Value Reference Range Interpretation Comme nts POCT PREG (test code = 1605) Positive On board controls acceptable with C Line (test code = 3574) Yes POCT PREG LOT # (test code = 3570) 750703 POCT PREG TEST DATE ( test code = 3576) 07-21-2024 Lab Interpretation (test cod e = 19370-1) Normal [facility] URINALYSIS W/O SPECIFIC [id number] 13:31:00* Test Item Value Reference Range Interpretation [...] = 3257) trace Negative - Negati ve [facility] URINALYSIS W/O SPECIFIC [id number] 13:31:00* Test Item Value Reference Range Interpretation [...] = 3257) trace Negative - Negati ve [facility] [id number] 13:30:00* Test Item Value Reference Range Interpretation Comme nts POCT PREG (test code = 1605) Positive On board controls acceptable with C Line (test code = 3574) Yes POCT PREG LOT # (test code = 3575) POCT PREG TEST DATE ( test code = 3576) [facility] [id number] 13:30:00* Test Item Value Reference Range Interpretation Comme nts POCT PREG (test code = 1605) Positive On board controls acceptable with C Line (test code = 3574) Yes POCT PREG LOT # (test code = 3575) POCT PREG TEST DATE ( test code = 3576) [facility] MOLECULAR [id number] 14:14:48* Test Item Value Reference Range Interpretation Comme nts POCT Molecular Strep (test c ode = 14019-8) Positive Negative A Lab Interpretation (test cod e = 16073-1) Abnormal [facility] [id number] 19:17:00* Test Item Value Reference Range Interpretation Comme nts POCT PREG (test code = 1605) Negative On board controls acceptable with C Line (test code = 3574) Yes POCT PREG LOT # (test code = 3575) POCT PREG TEST DATE ( test code = 3576) Lab Interpretation (test cod e = 30161-1) Normal [facility] History and Physical Notes Date/Time Note Provider [...] 10/2018 Pt hospitalized for 1 week at [facility] Vision problems wears glasses CURRENT HEALTH [...] 338 on 09/09 - plan: undecided - [facility] Fetus - Presentation on admission: cephalic, [...] due to GHTN at 37w0d D/w Dr Adrien Orourke, [employer], [facility]- Informed consent discussed with the patient, including: [...] receiving the proposed care, treatment, and services. T PROTECTION AGENT Associated attestation - Emi Jurado MD - 09/15/2023 5:12 PM ASSET PROTECTION AGENT I was the faculty on [employer] [...] and at the hospital. Emi Jurado MD [facility] - [facility] Procedure Notes Date/Time Note Provider Source 2023-09-16 02:10:07 Associated Order(s): Central Neuraxial Block Central Neuraxial Block Date/Time: 09/16/2023 2:10 AM Performed by: Bulmaro Newberry MD Authorized by: Alonso Reynolds MD Patient Location: OB End Time: 09/16/2023 2:10 AM Reason for Block: OB request, Patient request, Labor analgesia, Surgical anesthesia and Post-op pain management Staff: Anesthesiologist: Alonso Reynolds MD Resident/ENGINEER FISHING VESSEL: Bulmaro Newberry MD Performed by: resident/ENGINEER FISHING VESSEL Preanesthetic Checklist: patient identified, IV checked, risks [...] PARTH saline Guidance with: landmark technique} Epidural/Spinal Malta and/or Catheter: Epidural/Spinal Kit: BBun Needle Type: Tuohy Needle Gauge: 17 G [...] expectations; PCEA explained and fall precautions given. T PROTECTION AGENT AN-ANESTHESIOLOGY [facility] Notes Date/Time Note Provider Source 2025-03-14 16:34:32 Meds sent THUAN Beard 03/14/2025 4:35 PM [facility] 2025-03-14 16:17:13 Routing to provider to send in n/v medication for patient. Darell Hammond LVN [facility] 2025-03-07 09:21:28 Called and spoke with patient regarding Medicaid. Pt will call back with plan name and member ID. Pt verbalized understanding. HOWARD BORREGO RN 03/07/2025 9:22 AM Howard Borrego RN [facility] 2025-03-06 15:32:55 Application was done on today on the [place] portal and was approved.Medicaid not showing up just HTW. Davis Watson [facility] 2025-03-06 14:50:08 Moira Molina is a 24 year old female Is calling to inform the clinic her medicaid has been approved and would like her ultrasound scheduled. Stephany Vogel [facility] 2024-07-04 16:42:00 Regarding: groggy, can't focus, Nauseous, hot internally, SOB, fast heartrate . x several weeks. ----- Message from Patient [employer]acher [employer] sent at 07/04/2024 4:40 PM ASSET PROTECTION AGENT ----- Moira Molina is a 24 year old female Pt felling groggy, can't focus, Nauseous, hot internally, shortness of breath, fast heartrate when she gets up. x several weeks. Pt stated she is having fast heart rate right now. T PROTECTION AGENT Blaire Tapia RN [facility] 2024-07-04 16:42:00 Adult Triage Assessment Last [...] protocol. Requesting appointment to Urgent care in [place]. No other questions at this time. Blaire MCGHEE, RN Reason for Disposition [1] MODERATE weakness (i.e., interferes with work, school, normal activities) AND [2] persists > 3 days Protocols used: Weakness (Generalized) and Tuvbzwm-LPMHX-UN [facility] 2024-01-06 08:42:46 Please advise T [facility] 2024-01-05 11:00:00 Images from the original note were not included. Venipuncture collection performed by clean technique on the right anticubitus. Total of 1 attempts were made. Slight pressure and a bandage/dressing were applied to the site(s). The patient experienced no complications. The following specimens were processed according to instructions and sent to [facility] laboratories per lab order on 01/05/2024: LT BLUE SST 4 RED LAV 1 PPT DK GREEN (LiHep) DK GREEN (SodH) ANTHONY DK BLUE (K2) DK BLUE (S) ACD Blood Culture NIPT/NTD [facility] 2024-01-04 10:11:47 Notified patient we have not seen her since 2021 she would need appointment. She stated she is unable to come in as she does not have a car. Routing to OB since last office visit was 11/02/23. T Jillian Sanders LVN [facility] 2024-01-04 10:06:59 Moira Molina is a 23 year old female. Patient is calling stating that as of Wednesday she has vaginal discharge, vaginal itching and burning while urinating. Patient stated that she is not able to come into the office and is asking if the provider would be willing to prescribe something. Annie Yun [facility] 2023-12-13 15:03:51 Attempted to contact patient, no answer and no voicemail. Do not see ADHD medication on her medication list. Patient will need appointment if she feels she needs to increase medication Catalina Stapleton NP has prescribed. [facility] 2023-12-13 14:46:53 Moira Molina is a 23 year old female Pt is calling to report that she is wanting to be evaluated for ADHD at her next appointment on 12/15. Pt is requesting a call back for an update. Please advise. Allison Concepcion [facility] 2023-11-09 16:09:08 Pt notified letter has been posted to [employer]. Pt verbalized understanding. HOWARD BORREGO RN 11/09/2023 4:09 PM Howard Borrego RN [facility] 2023-11-09 15:48:13 Please provide patient with a return to work letter in chart THUAN Beard 11/09/2023 3:49 PM [facility] 2023-11-08 13:32:35 Pt requesting letter to return to work on 12/09/2023 due to not healing properly. Pt states she discussed this with provider Sameera. Pt states provider is aware of need for letter. Will route to provider. Howard Borrego RN [facility] 2023-11-08 12:49:08 Copied from [facility] #[id number]. Topic: Clinical - Medical Advice >> Nov 08, 2023 12:47 PM Patient [employer] wrote: Pt needs a letter for work stating she is not returning back to work until 12/09/2023 due to not healing properly. Please call pt at [phone] (home) Lyly Cool [facility] 2023-10-19 15:50:13 Spoke with patient, patient requested date and time for appointment, patient has been scheduled. Dolly Vogel [facility] 2023-10-19 15:05:58 Patient stated she has started having pain to incision site with movement today. Stated she started having vaginal bleeding today as well that is dark red. States pain is about 3/10. States she has been moving around more than often and has been running errands alone with her daughter and is having to pickle cutter her daughter. Patient stated she has not tried taking any pain meds. Advised patient to take OTC pain meds and to come in for 3 wk pp and can be evaluated. ER warnings given, verbalized understanding. [facility] 2023-10-19 14:31:25 Copied from [facility] #[id number]. Topic: Clinical - Medical Advice >> Oct 19, 2023 2:28 PM Patient [employer] wrote: Requesting to talk with an nurse having bleeding dark red and when standing up need to stand bent down before standing up straight feels like pulling. Please contact patient at [phone] (home) Amalia Dang [facility] 2023-10-14 13:11:53 Noted. T PROTECTION AGENT [facility] 2023-10-14 13:08:12 Called patient , states she will stop by tomorrow to get paper work. T PROTECTION AGENT Rosa Courtney [facility] 2023-10-14 12:36:43 Copied from [facility] #[id number]. Topic: Clinical - Paperwork/Forms >> Oct 14, 2023 12:35 PM Patient [employer] wrote: Pt requesting call back, wanting to know if paperwork is ready for pickle cutter. Please call [phone] (home) T PROTECTION AGENT PERRY Roberts [facility] 2023-09-20 15:12:00 Regarding: heaviness in upper back/chest x 1 day, hurts to take deep breath, x 5 days ago ----- Message from Ivon Humphrey sent at 09/20/2023 3:12 PM ASSET PROTECTION AGENT ----- Moira Molina is a 23 year old female T PROTECTION AGENT Alma Delia Smith RN [facility] 2023-09-20 15:12:00 Adult Triage Assessment Last Clinic Visit: [id number] Primary Symptom: upper back between shoulders feels [...] medication use with ; neither adult nor infant is ill, triager answers question Back pain Protocols used: Medication Question [id number]-[id number]-ID, Back Tiua-IONEV-TA "upper back between shoulders feels heavy, and pain" per pt. She states the discharge nurse told her it was gas when she was leaving the hospital yesterday. She states it started prior to leaving the hospital yesterday. Home care measures, and call back parameters reviewed. She stated understanding. Alma Delia Harper [facility] 2023-09-19 12:55:54 Problem: Discharge Planning - Goal: Adequate for discharge Outcome: Adequate for discharge Goal: Mood stable Outcome: Adequate for discharge Problem: Pain Goal: Control of pain at or below patient's documented comfort goal Outcome: Adequate for discharge Goal: Reduction in pain sensation Outcome: Adequate for discharge Problem: Falls, Risk of Goal: Absence of falls Outcome: Adequate for discharge PHANIA Germain RN [facility] 2023-09-19 08:03:44 Problem: Discharge Planning - Goal: Adequate for discharge Outcome: Adequate for discharge Goal: Mood stable Outcome: Adequate for discharge Problem: Pain Goal: Control of pain at or below patient's documented comfort goal Outcome: Adequate for discharge Goal: Reduction in pain sensation Outcome: Adequate for discharge Problem: Falls, Risk of Goal: Absence of falls Outcome: Adequate for discharge T PROTECTION AGENT Kimberly Palomino RN [facility] 2023-09-18 23:34:49 Problem: Discharge Planning - Goal: Adequate for discharge Outcome: Progressing as expected Goal: Mood stable Outcome: Progressing as expected Problem: Pain Goal: Control of pain at or below patient's documented comfort goal Outcome: Progressing as expected Goal: Reduction in pain sensation Outcome: Progressing as expected Problem: Falls, Risk of Goal: Absence of falls Outcome: Progressing as expected PHANIA Cabrera RN [facility] 2023-09-17 22:07:58 Problem: Discharge Planning - Goal: Adequate for discharge Outcome: Progressing as expected Goal: Mood stable Outcome: Progressing as expected Problem: Pain Goal: Control of pain at or below patient's documented comfort goal Outcome: Progressing as expected Goal: Reduction in pain sensation Outcome: Progressing as expected Problem: Falls, Risk of Goal: Absence of falls Outcome: Progressing as expected [facility] 2023-09-17 07:59:26 Problem: Intrapartum process (including [...] Goal: Mood stable Outcome: Progressing as expected T PROTECTION AGENT [facility] 2023-09-16 21:30:01 Problem: Intrapartum process (including [...] Outcome: Progressing as expected PHANIA Casey RN [facility] 2023-09-16 11:30:00 Images from the original [...] shield use, application, washing, storage and weaning Casting Technician Observation Pumping -- pump set up now, mom wants to go visit baby now and then pump Interventions Pump start (massage, compression, expression);Taught hand expression Recommended Feeding Plan Recommended feeding plan Pump/hand express minimum 8 times in 24 hours including nights. Pump for 15-25 min. OTHER $ SERVICES Consult Angy STEELE-[place], IBCLC Pager - [phone] T PROTECTION AGENT Lisa Byrd RN [facility] 2023-09-16 08:53:09 Patient: Moira Molina Procedure Summary Date: 09/16/23 Room / [facility] [place] [address] [facility] Start: 119 Anesthesia Stop: 703 [...] given. Complications: No apparent complications MEAGAN Olmedo [facility] AN-ANESTHESIOLOGY ANESTHESIOLOGIST [facility] 2023-09-16 07:24:55 Delivery Date: 09/16/2023 Delivery Time: 6:16 AM DELIVERY BY SECTION Date of Service: : 09/16/2023 at 6:16 AM Admitted for: IOL, Primary Lower uterine tranverse section with T incision, no BTL, Pfannenstiel, Closed with suture, EBL 600 cc, No complications, Findings: normal appearing uterus, bilateral fallopian tubes and ovaries, thin filmy adhesions on posterior uterus consistent with endometriosis Delivery Summary [place] Sex: male [place] Weight: 2810 g 1 Minute 5 Minute 10 Minute Totals: 6 8 Primary Indication: The patient was taken to the operating room for a primary section due to: malpresentation at 37w1d weeks. Procedures: Primary Lower uterine tranverse section with T incision Specimens Removed: Placenta Clinical Trials: None Surgeon: Melba Iraheta MD Hspt Tutor Surgeon: Vero Montgomery MD OB Faculty: Bharti [...] lateral traction from the surgeon's and first beater's hand. Delivery A bladder flap was not [...] aid of fundal pressure applied by the insurance assistant surgeon. Whizzer Hand's index fingers were placed in the groin [...] was delivered by splinting the humerus with pool table operator's fingers with downward sweeping motion. The body was rotated clockwise / counterclockwise until the shoulder came to anterior position. The above procedure was repeated for delivery of the other arm . The body was rotated to position with back in anterior position. Wild Philip manumalini was performed - pool table operator's index and middle fingers of inferior hand were placed over maxilla and two fingers of the other hand were hooked over the neck. Gentle downward traction along with insurance assistant applying fundal pressure for the flexion [...] time of operative note entered. Please see [facility] for update. The placenta was not [...] All questions were answered. Melba Iraheta MD WELDER TECH PGY-2 09/16/23 7:38 AM T PROTECTION AGENT Associated attestation - Bharti Diaz MD - 09/16/2023 7:59 AM ASSET PROTECTION AGENT I personally examined the patient and have verified the resident documentation and/or findings, including the history, physical exam, and medical decision making. I was present for delivery. Given position unable to maneuver for breech delivery. T-incision made to ensure safe delivery of following standard breech maneuvers. Patient aware of need for future section should she become in the future. Bharti Diaz MD [facility] 2023-09-16 02:10:40 Images from the original note were not included. Name/ MRN / Age / Gender: Moira Molina, [id number] 23 year old female BMI: Estimated body [...] (physical exam) Anesthesia Preop: Chart Review and Nlgn-zi-Oyzv NPO Status Verified Clear Liquids: > 2 [...] IV access Endo/Other Negative Endo/Other ROS Other WELDER TECH Comments: Moira Molina is a 23 year [...] on 09/09 - BC plan: undecided - [place] [facility] Fetus - Presentation on admission: cephalic, [...] to surgery. Hold on DOS. Phentermine: Alert [facility] anesthesiologist SGLT2 Inhibitors: "gliflozins" to be held [...] Epidural Anesthesia plan discussed with: patient or telephone services sales representative Post-Operative Analgesia: routine analgesia & antiemetics Recovery Plan: LDR Additional comments: [facility] AN-ANESTHESIOLOGY ANESTHESIOLOGIST [facility] 2023-09-15 20:33:32 Problem: Intrapartum process (including labor pain) Goal: Absence of or reduction of complications of labor Outcome: Progressing as expected Goal: Able to cope with pain Outcome: Progressing as expected Goal: Adequate to move to next level of care Outcome: Progressing as expected Goal: Reduction in pain sensation Outcome: Progressing as expected PHANIA Yoder RN [facility] 2023-09-15 17:36:55 Problem: Intrapartum process (including labor pain) Goal: Absence of or reduction of complications of labor Outcome: Progressing as expected Goal: Able to cope with pain Outcome: Progressing as expected Goal: Adequate to move to next level of care Outcome: Progressing as expected Goal: Reduction in pain sensation Outcome: Progressing as expected PHANIA Avalos RN [facility] 2023-09-15 10:38:51 Patient stated she took her BP when she got home and was 143/95. Stated she has not felt baby move since this morning but baby did complete kick count around 8 am. Informed patient per provider she is to report to [place] [facility] for evaluation, verbalized understanding. T PROTECTION AGENT [facility] 2023-09-15 10:32:55 Moira Molina is a 23 year old female Patient called driving home from HR appt states still not feeling well, BP 143/95, feels like baby's not moving as much as normal Please contact pt at [phone] (home) T PROTECTION AGENT Micaela Carlisle [facility] 2023-09-10 13:24:33 Pt notified of results and new orders. [facility] 2023-09-10 13:15:09 Please notify the patient she is anemic iron and vitamin c have been sent to her pharmacy on file. She should continue taking her pnv. THUAN Beard 09/10/2023 1:15 PM [facility] 2023-09-10 13:00:00 Addended by: REYES HAMPTON on: 09/10/2023 04:03 PM Modules accepted: Orders [facility] 2023-09-10 12:19:00 Regarding: , 23 yr old , Female how many movements are normal for 36 weeks ----- Message from Ximena Loya sent at 09/10/2023 12:13 PM ASSET PROTECTION AGENT ----- Cbc-w 23 yr old, Female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
[2025-03-25] MEDS ORDERED: METOCLOPRAMIDE 10 MG/2mL INJ ONE (15:08)
[2025-03-25] MEDS ORDERED: Ringers Lactate 1,000 ML IV ONE (15:09)
[2025-03-25] MEDS ORDERED: NA CHLORIDE 0.9% 100 ML ONE (15:09)
[2025-03-25] MEDS ORDERED: FAMOTIDINE 20 MG/2 ML VIAL IV ONE (15:09)
[2025-03-25 15:24] LABS: Absolute Lymphocytes (CBC) 2.8 K/uL (0.7-4.9); Hematocrit 35.2 % (36.0-45.0); Hemoglobin 11.7 g/dL (12.0-15.0); MCH 27.5 pg (27.0-35.0); MCHC 33.3 g/dL (32.0-36.0); MCV 82.5 fL (80-100); MPV 7.5 fL (7.6-11.3); Nucleated RBC Absolute Count 0.0 (0-0); Nucleated Red Blood Cells % 0.0 % (0-0); RBC Red Blood Cell Count 4.27 M/uL (3.86-4.86); White Blood Count 15.00 thou/uL (4.3-10.9)
[2025-03-25 15:40] LABS: Urine Culture Reflex Order REFLEXED; Urine Microscopic Reflex YN ORDER UMIC; Urine Yeast (Budding) Trace /HPF (None Seen)
[2025-03-25 16:15] LABS: HCG, Quantitative 54175.0 mIU/mL (1-3)
[2025-03-25 16:39] LABS: Anion Gap 11.4 mEq/L (5.0-15.0); BUN Blood Urea Nitrogen 7.0 mg/dL (7-18); Glucose Level 96.0 mg/dL (74-106); Lipase 48.0 U/L (13-75); Potassium 3.4 mEq/L (3.5-5.1)
--- NOTE | 2025-03-25 17:54 | RAD REPORT ---
EXAM: 1St Trimest Single 1St Fetus HISTORY: Abd pain;Nausea/Vomiting COMPARISON: None TECHNIQUE: Multiple grayscale and color Doppler images were obtained in a transabdominal pelvic ultra sound. Spectral analysis of the Doppler waveforms of the ovaries were performed. FINDINGS: UTERUS: There is an intrauterine gestational sac. This contains a pole. Dequincy-rump length: 2.2 cm which estimates gestational age at 8 week 6 day. A heart rate is detected at 176 bpm. Small subchorionic hemorrhage No free fluid is seen in the pelvis. RIGHT OVARY: Normal flow without focal mass. LEFT OVARY: Normal flow without focal mass. IMPRESSION: Single live IUP with positive heart tones and measuring 8 week 6 day by crown rump length. Smal l subchorionic hemorrhage which is typically of little significance. Bilateral ovarian blood flow.
--- NOTE | 2025-03-25 17:59 | ER ---
Nurse's Notes [facility] Name: Urvashi Molina Age: 25 yrs Sex: Female : 2000 Arrival Date: 03/25/2025 Time: 14:12 Bed 8 Private MD: Diagnosis: Vomiting of , unspecified;Volume depletion, unspecified;Hypokalemia Presentation: 03/25 14:27 Chief complaint: Patient states: Pt reports she is approximately 8 weeks and ss has not been able to hold down food or water x 2 days. Coronavirus screen: Client denies travel out of the [place] in the last 14 days. Ebola Screen: Patient denies exposure to infectious person. Patient denies travel to an Ebola-affected area in the 21 days before illness onset. Initial Sepsis Screen: Does the patient meet any 2 criteria? No. Patient's initial sepsis screen is negative. Does the patient have a suspected source of infection? No. Patient's initial sepsis screen is negative. Risk Assessment: Do you want to hurt yourself or someone else? Patient reports no desire to harm self or others. Onset of symptoms was March 23, 2025. 14:27 Method Of Arrival: Ambulatory ss 14:27 Acuity: DELVIS 3 ss CERTIFIED HISTOLOGIC TECHNICIAN: 14:28 LMP 02/23/2025, unknown ss 15:01 5, Full Term 3, 1, Living 3, LMP 01/21/2025, Verified, EDC cp 10/28/2025, Gestational age from LMP: 9 weeks 1 day 16:15 5, 1, Living 3, unknown iw Historical: - Allergies: 14:28 Amoxicillin; ss 14:28 AZO Standard; ss - PMHx: 14:28 Anxiety; high heart rate; ss - PSHx: 14:28 Cholecystectomy; ss - Immunization history:: Adult Immunizations unknown. - Infectious Disease History:: Denies. - Social history:: Smoking status: Patient denies any tobacco usage or history of. Screenin:49 [facility] ED Fall Risk Assessment (Adult) History of falling in the last 3 months, jl7 including since admission No falls in past 3 months (0 pts) Confusion or Disorientation No (0 pts) Intoxicated or Sedated No (0 pts) Impaired Gait No (0 pts) Mobility Assist Device Used No (0 pt) Altered Elimination No (0 pt) Score/Fall Risk Level 0 - 2 = Low Risk Oriented to surroundings, Maintained a safe environment. Abuse screen: Denies threats or abuse. Denies injuries from another. Nutritional screening: No deficits noted. Tuberculosis screening: No symptoms or risk factors identified. Assessment: 14:30 Reassessment: Pt noted to be drinking a sprite during triage. ss 15:11 General: Appears in no apparent distress. Behavior is calm, cooperative. Pain: Denies iw pain. Neuro: Level of Consciousness is awake, alert, obeys commands, Oriented to person, place, time, situation, Moves all extremities. Full function. GI: Abdomen is non-distended, Reports nausea, vomiting, Patient currently denies diarrhea. Derm: Skin is intact, is healthy with good turgor. Musculoskeletal: Range of motion: intact in all extremities. 18:18 Reassessment: Patient appears in no apparent distress at this time. Patient and/or iw family updated on plan of care and expected duration. Pain level reassessed. Patient is alert, oriented x 3, equal unlabored respirations, skin warm/dry/pink. Patient states feeling better. Patient states symptoms have improved. Vital Signs: 14:27 BP 131 / 73; Pulse 100; Resp 15; Temp 97(TE); Pulse Ox 100% ; Weight 104.33 kg; Height ss 5 ft. 6 in. ; Pain 0/10; 17:39 BP 112 / 76; Pulse 95; Resp 15; Pulse Ox 94% ; Pain 5/10; jl7 18:19 BP 98 / 89; Pulse 91; Resp 16; Pulse Ox 100% on R/A; iw 14:27 Body Mass Index 37.12 (104.33 kg, 167.64 cm) ss 14:27 Pain Scale: Adult ss 17:39 Pain Scale: Adult jl7 ED Course: 14:14 Patient arrived in ED. al6 14:21 Marcus Taylor PA is PHCP. cp 14:21 Sadi Gay MD is Attending Physician. cp 14:28 Triage completed. ss 14:28 Arm band placed on right wrist. ss 15:11 Arabella Medina, RN is Primary Nurse. iw 15:12 Initial lab(s) drawn, by me, sent to lab. Urine collected: clean catch specimen, clear. iw Inserted saline lock: 20 gauge in right antecubital area, using aseptic technique. Blood collected. Flushed with 10 mL NS. 15:49 Patient has correct armband on for positive identification. Bed in low position. Call jl7 light in reach. Side rails up X 1. Provided Education on: use of call molina. 17:22 1St Trimest Single 1St Fetus In Process Unspecified. EDMS 18:18 No provider procedures requiring assistance completed. jl7 18:19 IV discontinued, intact, bleeding controlled, No redness/swelling at site. Pressure iw dressing applied. Administered Medications: 15:15 Drug: Ringers - Lactated Ringers Solution IV 1000 ml IV at calculated rate bolus; to be jl7 given as a bolus over 90 minutes Route: IV; Rate: calculated rate; Site: right antecubital; 17:15 Follow up: Response: No adverse reaction; IV Status: Completed infusion; IV Intake: jl7 1000ml 15:15 Drug: metoCLOPramide IVP 10 mg IVP once; over 1 to 2 minutes Route: IVP; Site: right jl7 antecubital; 16:42 Follow up: Response: No adverse reaction iw 15:15 Drug: Famotidine IVP 20 mg IVP once; dilute with 10 mL 0.9% NaCl; give over 2 minutes jl7 Route: IVP; Site: right antecubital; 16:42 Follow up: Response: No adverse reaction iw 18:17 Drug: Acetaminophen PO 1000 mg PO once Route: PO; jl7 18:18 Follow up: Response: Medication administered at discharge. jl7 18:17 Drug: Potassium PO Effervescent Tablet 25 mEq PO once; dissolve in 4 ounces of water or jl7 juice Route: PO; 18:17 Follow up: Response: Medication administered at discharge. jl7 Medication: 18:18 VIS not applicable for this client. jl7 Intake: 17:15 IV: 1000ml; Total: 1000ml. jl7 Outcome: 17:59 Discharge ordered by . cp 18:19 Discharged to home ambulatory, with family, iw 18:19 Condition: good 18:19 Discharge instructions given to patient, family, Instructed on discharge instructions, follow up and referral plans. medication usage, Demonstrated understanding of instructions, follow-up care, medications, Prescriptions given X 1, 18:19 Patient left the ED. iw Signatures: Dispatcher [employer] Arabella Patel RN RN Vidhi Patino RN RN ss Marcus Taylor PABlaiseC PA-C Mitchell Broderick RN RN jl7 Natividad Gomes Corrections: (The following items were deleted from the chart) 03/26 01:34 03/25 15:01 5, Full Term 3, 1, Living 3, LMP 02/20/2025, cp Verified, EDC 11/27/2025, Gestational age from LMP: 4 weeks 5 days cp
--- NOTE | 2025-03-25 17:59 | EDPHYS ---
Physician Documentation [facility] Name: Urvashi Molina Age: 25 yrs Sex: Female : 2000 Arrival Date: 03/25/2025 Time: 14:12 Bed 8 Private MD: ED Physician Sadi Gay HPI: 03/25 15:00 This 25 yrs old Female presents to ER via Ambulatory with complaints of cp Vomiting. 15:00 The patient presents to the emergency department with vomiting, that is intermittent, cp described as bilious. 15:00 Onset: The symptoms/episode began/occurred 2 day(s) ago. cp 15:00 Possible causes: . The patient presents to the emergency department with cp nausea and vomiting, and is intermittent, described as bilious. 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 - Infectious Disease History:: Denies. - Social history:: Smoking status: Patient denies any tobacco usage or history of. ROS: 15:05 Constitutional: Negative for body aches, chills, fever, cp 15:05 Eyes: Negative for injury, pain, redness, and discharge, cp 15:05 ENT: Negative for drainage from ear(s), ear pain, sore throat, difficulty swallowing, difficulty handling secretions, 15:05 Respiratory: Negative for cough, shortness of breath, wheezing, 15:05 Abdomen/GI: Positive for nausea and vomiting, Negative for diarrhea, constipation, 15:05 : Negative for urinary symptoms, vaginal bleeding, 15:05 Neuro: Negative for altered mental status, headache, weakness, 15:05 All other systems are negative, Exam: 15:10 Constitutional: The patient appears in no acute distress, alert, awake, non-toxic, well cp developed, well nourished, obese, 15:10 Head/Face: Normocephalic, atraumatic. cp 15:10 Eyes: Periorbital structures: appear normal, Conjunctiva: normal, no exudate, no injection, Sclera: no appreciated abnormality, Lids and lashes: appear normal, bilaterally, 15:10 ENT: External ear(s): are unremarkable, Nose: is normal, Mouth: Lips: moist, Oral mucosa: moist, Posterior pharynx: is normal, airway is patent, 15:10 Chest/axilla: Inspection: normal, 15:10 Cardiovascular: Rate: tachycardic, Rhythm: regular, 15:10 Respiratory: the patient does not display signs of respiratory distress, Respirations: normal, no use of accessory muscles, no retractions, labored breathing, is not present, Breath sounds: are clear throughout, no decreased breath sounds, no stridor, no wheezing, 15:10 Abdomen/GI: Inspection: obese Bowel sounds: active, all quadrants, Palpation: soft, in all quadrants, mild abdominal tenderness, in the right lower quadrant and left lower quadrant, rebound tenderness, is not appreciated, involuntary guarding, is not appreciated, 15:10 Back: CVA tenderness, is absent, Vital Signs: 14:27 BP 131 / 73; Pulse 100; Resp 15; Temp 97(TE); Pulse Ox 100% ; Weight 104.33 kg; Height ss 5 ft. 6 in. ; Pain 0/10; 17:39 BP 112 / 76; Pulse 95; Resp 15; Pulse Ox 94% ; Pain 5/10; jl7 18:19 BP 98 / 89; Pulse 91; Resp 16; Pulse Ox 100% on R/A; iw 14:27 Body Mass Index 37.12 (104.33 kg, 167.64 cm) ss 14:27 Pain Scale: Adult ss 17:39 Pain Scale: Adult jl7 MDM: 17:59 Medical Screening Exam initiated cp 17:59 Data reviewed: vital signs, nurses notes, lab test result(s), radiologic studies, cp ultrasound, and as a result, I will discharge patient. 17:59 Differential diagnosis: ectopic , dehydration, threatened miscarriage, uti. cp Counseling: I had a detailed discussion with the patient and/or guardian regarding the historical points, exam findings, and any diagnostic results supporting the discharge/admit diagnosis, lab results, radiology results, the need for outpatient follow up, an OB/Gyne specialist, to return to the emergency department if symptoms worsen or persist or if there are any questions or concerns that arise at home. Response to treatment: the patient's symptoms have markedly improved after treatment, and as a result, I will discharge patient. 03/25 15:04 Order name: Abo/rh Typing; Complete Time: 16:30 03/25 15:04 Order name: Basic Metabolic Panel; Complete Time: 17:55 03/25 17:56 Interpretation: Normal except: K 3.4. 03/25 15:04 Order name: CBC with Diff; Complete Time: 16:30 03/25 17:56 Interpretation: Normal except: WBC 15.00; HGB 11.7; HCT 35.2; PLT 440; MPV 7.5; SHARIF% cp 74.0; NEUT A 11.1. 03/25 15:04 Order name: Test, Urine; Complete Time: 16:30 03/25 15:04 Order name: Quantitative Hcg; Complete Time: 17:55 03/25 17:56 Interpretation: Reviewed. 03/25 15:04 Order name: Lipase; Complete Time: 17:55 03/25 15:04 Order name: UA Rfx Master Cult if indicated; Complete Time: 16:30 03/25 17:57 Interpretation: Normal except: [facility] Extremely Turbid; Urine SG > 1.030; UKET TRACE; cp UPROT 1+; UUROB 1+; URBC 5-10; MUCUS 4+; BYST Trace. 03/25 16:03 Order name: Urine Culture [facility] 03/25 17:22 Order name: 1St Trimest Single 1St Fetus; Complete Time: 17:55 [facility] 03/25 15:04 Order name: IV Saline Lock; Complete Time: 15:13 03/25 15:04 Order name: Labs collected and sent; Complete Time: 15:13 03/25 15:04 Order name: NPO; Complete Time: 15:13 03/25 16:33 Order name: PO challenge; Complete Time: 16:42 cp Administered Medications: 15:15 Drug: Ringers - Lactated Ringers Solution IV 1000 ml IV at calculated rate bolus; to be jl7 given as a bolus over 90 minutes Route: IV; Rate: calculated rate; Site: right antecubital; 17:15 Follow up: Response: No adverse reaction; IV Status: Completed infusion; IV Intake: jl7 1000ml 15:15 Drug: metoCLOPramide IVP 10 mg IVP once; over 1 to 2 minutes Route: IVP; Site: right jl7 antecubital; 16:42 Follow up: Response: No adverse reaction iw 15:15 Drug: Famotidine IVP 20 mg IVP once; dilute with 10 mL 0.9% NaCl; give over 2 minutes jl7 Route: IVP; Site: right antecubital; 16:42 Follow up: Response: No adverse reaction iw 18:17 Drug: Acetaminophen PO 1000 mg PO once Route: PO; jl7 18:18 Follow up: Response: Medication administered at discharge. jl7 18:17 Drug: Potassium PO Effervescent Tablet 25 mEq PO once; dissolve in 4 ounces of water or jl7 juice Route: PO; 18:17 Follow up: Response: Medication administered at discharge. jl7 Disposition: 18:32 Co-signature as Attending Physician, Sadi Gay MD I reviewed the patient's care rn provided by the Advanced Practice Provider and agree with the diagnosis and treatment plan. Disposition Summary: 03/25/25 17:59 Discharge Ordered Notes: Location: Home cp Problem: new cp Symptoms: have improved cp Condition: Stable cp Diagnosis - Vomiting of , unspecified cp - Volume depletion, unspecified cp - Hypokalemia cp Followup: cp - With: Private Physician - When: 2 - 3 days - Reason: Recheck today's complaints Discharge Instructions: - Discharge Summary Sheet cp - Abdominal Pain During cp - Dehydration, Adult cp - Potassium Content of Foods cp - Hyperemesis Gravidarum cp - How A Baby Grows During cp - First Trimester of cp - Home Test Information cp - Activity Restriction During cp Forms: - Medication Reconciliation Form cp - Antibiotic Education cp - Prescription Opioid Use cp - Patient Portal Instructions cp - Leadership Thank You Letter cp Prescriptions: - Reglan 10 mg Oral Tablet - take 1 tablet ORAL route every 6 hours take 30 minutes before meals and at cp bedtime; 20 tablet; Refills: 0, Product Selection Permitted Signatures: Dispatcher [facility]Pres[facility] Fe Medical CenterSadi Peters MD MD rn Blanchard, Shelby, RN RN ss Page, Corey, PA-C PABlaiseC Mitchell Broderick RN RN jl7 Arabella Medina RN iw Corrections: (The following items were deleted from the chart) 17:21 16:32 Transvaginal Ob+US.SURYA.VISHAL ordered. EDMS EDMS 03/26 01:34 03/25 15:01 5, Full Term 3, 1, Living 3, LMP 02/20/2025, cp Verified, EDC 11/27/2025, Gestational age from LMP: 4 weeks 5 days cp
[2025-03-25] MEDS ORDERED: POTASSIUM 25 MEQ EFFERV TAB ONE (18:01)
[2025-03-25] MEDS ORDERED: ACETAMINOPHEN 500 MG TAB ONE (18:01)
[2025-03-25 22:59] VITALS: TEMP 97
[2025-03-25 23:03] VITALS: BP 98/89; O2SAT 100
== END 2025-03-25 18:19 | disposition home or self-care (01) ==
LOC: ER 14:12
DX: O99.281 Endocrine, nutritional and metabolic diseases complicating pregnancy, first trimester (principal); E86.9 Volume depletion, unspecified; E87.6 Hypokalemia; Z3A.09 9 weeks gestation of pregnancy
CPT/HCPCS: 96365; 87088; 85025; 81001; 87086; 80048; 36415; 86900; 81025; 86901; 84702; 83690; 76801; 96375; 99284; 96366; J2765; J7120